=== PATIENT | female | born 1945 | race Caucasian/White ===

== ENCOUNTER → 2020-11-29 14:18 | Outpatient (BNVA) | payer MEDICARE, SELFPAY | PROVIDERS: Visit Provider Orthopaedic Surgery | DX: M76.62 Achilles tendinitis, left leg (principal) | CPT/HCPCS: 99202 ==

== ENCOUNTER 2021-01-26 10:49 | Outpatient (REF) | payer MEDICARE, SELFPAY ==
--- NOTE | ~2021-01-26 | MM_ITS ---
EXAMINATION: MM SCREENING DIGITAL BREAST TOMOSYNTHESIS, BILATERAL CLINICAL INFORMATION: Screening. Asymptomatic. The lifetime risk of breast cancer based on the Tyrer-Cuzick Model is 2%. COMPARISON: Mammography: 12/01/2019, 10/02/2018, 09/03/2017 TECHNIQUE: Digital breast tomosynthesis is performed in both the craniocaudal and mediolateral oblique views along with computer-aided detection (CAD). Synthesized 2D images are generated from the tomosynthesis. Additional right cleavage view is provided. FINDINGS: The breasts are almost entirely fatty (ACR BI-RADS breast composition Category a). There are no significant masses, abnormal calcifications, or other abnormalities. Background stromal markings are stable. The axilla and skin contours are unremarkable. MM/MM tomosynthesis screening BI IMPRESSION: No mammographic evidence of malignancy. ASSESSMENT: BI-RADS 1: Negative RECOMMENDATION: Routine annual mammography screening. This patient's information was entered into a reminder system with a target due date for their next mammogram.
== END 2021-01-26 10:50 | disposition home or self-care (01) ==
LOC: HO.MAMMO 10:49
PROVIDERS: PCP Nurse Practitioner Primary Care; Visit Provider Internal Medicine
DX: Z12.31 Encounter for screening mammogram for malignant neoplasm of breast (principal)
CPT/HCPCS: 77063; 77067

== ENCOUNTER → 2021-03-31 07:43 | Outpatient (REF) | payer MEDICARE, SELFPAY ==
--- NOTE | ~2021-03-31 | NM_ITS ---
Lexiscan Myocardial perfusion study Indication: Shortness of breath, assess for coronary disease and ischemia Technique: The patient was brought in for a Lexiscan perfusion study on 03/31/2021 and was injected 0.4 mg of Lexiscan intravenously. Within a minute of this injection 30 mCi of sestamibi was given intravenously. Images were obtained using the SPECT gamma camera interlaced with the gating device. Images were obtained in supine position. Resting perfusion study was performed on 04/03/2021. Patient was administered 30 mCi of sestamibi intravenously at rest. Images were then obtained in supine position. Total DLP 141mGy-cm. Images were processed with the software and compared side to side in short axis, horizontal long axis and vertical long axis views. Findings: Raw acquisition was reviewed. The stress perfusion study showed diminished tracer uptake in the inferior/inferolateral wall. However, with CT attenuation correction there seems to be good improvement and hence suggestive of diaphragmatic attenuation artifact. The gated study shows normal LV systolic function with calculated LVEF of 67%. LV cavity is normal in size. The gated study shows normal wall thickening and contraction of segments. Resting study shows no significant perfusion abnormality. Gating at rest reveals normal wall motion with ejection fraction at 66%. The findings are consistent with reversible inferior/inferolateral perfusion defect SPECT and V from diaphragmatic attenuation artifact. Less likely ischemia. NM/NM radha perf SPECT rest & str Impression: 1. Myocardial perfusion imaging study shows reversible perfusion defect in the inferior/inferolateral wall suspected to be from diaphragmatic attenuation artifact; doubt ischemia. 2. Gated LVEF is 67% during stress and 66% during rest. 3. Transient ischemic dilatation not present. EKG component of the test reported separately.
--- NOTE | 2021-03-31 07:48 | CA_ITS ---
Acquisition Time: 2021-03-31 07:58:13 Total Exercise Time: 00:02:00 Test Indications: Dyspnea Medications: Protocol: LEXISCAN Max HR: 123 BPM 86% of Pred: 143 BPM Max BP: 142/072 mmHG Max Work Load: 1.0 METS Pharmacological stress test with Lexiscan injection, with heart rate reaching 86% MPHR, while sittting and not moving, without anginal symptoms, with isolated PVC, with normotensive response to injection, with nondiagnostic EKG for ischemia. In recovery she reported lightheadedness and nausea that was treated with Aminophylline 75mg IVP with resolution of symptom. Nuclear images pending. Test reviewed with Dr Emery. Referred By: Carmita Dietz Overread By: HAMIDA ARCEO
== END ==
LOC: HO.CARD 07:43
PROVIDERS: Visit Provider Nurse Practitioner Primary Care
DX: R06.02 Shortness of breath (principal)
CPT/HCPCS: 78452; 93017; A9500; J0280; J2785

== ENCOUNTER → 2021-05-03 14:05 | Outpatient (BNVA) | payer MEDICARE, SELFPAY | PROVIDERS: PCP Nurse Practitioner Primary Care; Referring Provider Nurse Practitioner Primary Care; Visit Provider Internal Medicine | DX: R06.02 Shortness of breath (principal); I10 Essential (primary) hypertension; E78.5 Hyperlipidemia, unspecified; E11.8 Type 2 diabetes mellitus with unspecified complications; Z95.0 Presence of cardiac pacemaker | CPT/HCPCS: 93005; 99202 ==

== ENCOUNTER → 2021-06-21 10:19 | Outpatient (REF) | payer MEDICARE, SELFPAY ==
--- NOTE | 2021-06-21 10:23 | CA_ITS ---
Transthoracic Echocardiogram Patient (Last, First, Middle): Annetta Fishman Etta Gender: Female Date of : 1945 Age: 75 Procedure Date: 06/21/2021 Procedure Type: Transthoracic Echocardiogram Location: OP Height: 157.48 cm Weight: 95.71 kg BSA: 1.96 m2 Heart Rate: bpm BP: 125 / 70 mmHg Safety Compliance Specialist: JAMIN Javier MD: Otf Patel MD Mds Manager: Isidro Emery MD Symptoms: R06.02 - Shortness of breath Study Quality: Fair ECG Rhythm: Ventriculary paced rhythm Conclusions: - 1. Low normal LV systolic function with LVEF of 50-55% with grade 1 diastolic dysfunction 2. Normal cardiac valvular Doppler 3. Normal RV systolic pressure 4. No gross pericardial effusion Findings Left Ventricle Normal left ventricular cavity size. There is normal left ventricular wall thickness. The left ventricular systolic function is low normal. The visually estimated ejection fraction is between 50-55%. There is paradoxical septal motion consistent with a right ventricular pacemaker. Spectral Doppler is indicative of an impaired relaxation filling pattern. E/E prime ratio is <8, consistent with normal filling pressures. Evidence suggests grade I (mild) diastolic dysfunction. Right Ventricle Normal right ventricular cavity size and systolic function. There is a pacemaker wire seen in the right ventricle. Atria The left atrium is likely dilated. Interatrial shunt cannot be excluded. The right atrium was not well visualized. Aortic Valve The aortic valve structure and function is likely normal. There is no aortic valve stenosis. There is no aortic valve regurgitation. Mitral Valve There is mild anterior and posterior mitral leaflet thickening. There is trace mitral valve regurgitation. There is no mitral valve stenosis. Pulmonic Valve The pulmonic valve was not well visualized. Tricuspid Valve Likely normal tricuspid valve structure and function. There is mild tricuspid valve regurgitation. The right ventricular systolic pressure is normal. The right ventricular systolic pressure is 24 mmHg. Normal right atrial pressure. There is no evidence of pulmonary hypertension. Great Vessels All visible segments of the aorta are normal in size. The pulmonary artery was not well visualized. Venous The inferior vena cava is normal in size and collapses greater than 50% with inspiration. Pericardium/Pleural There is no evidence of pericardial effusion. Prior Study Comparison No prior study available for comparison. Measurements 2D Linear Measurements IVSd: 1.18 0.6-0.9/0.6-1.0 cm LVIDd: 5.12 3.9-5.3/4.2-5.9 cm LVIDd Index: 2.61 2.4-3.2/2.2-3.1 cm/m2 LVIDs: 3.54 2.0-3.6 cm LVPWd: 0.89 0.7-1.1 cm Ao Root: 2.80 2.1-3.5 cm LA Diam: 3.90 2.7-3.8/3.0-4.0 cm LAIDs Index: 1.99 1.5-2.3 cm/m2 LV Mass: 247.14 67-162/88-224 g LV Mass Index: 126.09 43-95/49-115 g/m2 LVOT Diam: 2.20 3.0+(-)1.3 cm 2D Systolic Function EF 4C: 51.70 >55% EF 2C: 53.90 >55% EF BiP: 51.00 >55% Mitral Valve MV Pk E: 0.38 MV PK A: 0.73 MV Decel Time: 221.00 E/A: 0.50 E'Lateral: 5.77 E'Medial: 4.24 E/E' Med: 8.90 E/E' Lat: 6.50 PHT: 65.00 MVA PHT: 3.38 Decel Polk: 1.70 Aortic Valve AoV Pk Heriberto: 1.31 AoV Mn Heriberto: 0.95 AoV VTI: 0.28 AoV Pk Grad: 7.00 Aov Mn Grad: 4.00 VEL Cont.VTI: 2.08 LVOT LVOT Pk Heriberto: 0.71 LVOT Mn Heriberto: 0.51 LVOT VTI: 0.15 LVOT Pk Grad: 2.00 LVOT Mn Grad: 1.00 LVOT Diam: 2.20 LVOT Area: 3.80 Diastolic Function MV Pk E: 0.38 MV Pk A: 0.73 E/A: 0.50 E'Medial: 4.24 E/E' Med: 8.90 E' Laterial: 5.77 E/E' Lat: 6.50 Right Ventricle TAPSE (mm): 21.00 TVS' Heriberto: 8.49 Tricuspid Valve TR Pk Heriberto: 2.29 TR Pk Grad: 21.00 RA Press: 3.00 RVSP: 24.00 Great Vessels Aorta Ao Root-2D: 2.80 2.0-3.7 cm Ao Asc: 3.30 2.1-3.4 cm Ao Arch: 3.20 Pulmonary Valve PV Pk Heriberto: 0.94 Peak PV Grad: 4.00 Updated in Other Vendor System with Status of Final Isidro Emery MD electronically signed on 06/21/2021 1:26:48 PM with status of Final
== END ==
LOC: HO.CARD 10:19
PROVIDERS: PCP Nurse Practitioner Primary Care; Visit Provider Internal Medicine
DX: R06.02 Shortness of breath (principal)
CPT/HCPCS: 93306

== ENCOUNTER → 2021-06-26 14:05 | Outpatient (BNVA) | payer MEDICARE, SELFPAY | PROVIDERS: PCP Nurse Practitioner Primary Care; Referring Provider Nurse Practitioner Primary Care; Visit Provider Internal Medicine | DX: Z45.018 Encounter for adjustment and management of other part of cardiac pacemaker (principal); E78.5 Hyperlipidemia, unspecified; E11.8 Type 2 diabetes mellitus with unspecified complications; I10 Essential (primary) hypertension; R06.02 Shortness of breath | CPT/HCPCS: 99212 ==

== ENCOUNTER → 2021-12-20 12:35 | Outpatient (BNVA) | payer MEDICARE, SELFPAY | PROVIDERS: PCP Nurse Practitioner Primary Care; Referring Provider Nurse Practitioner Primary Care; Visit Provider Internal Medicine | DX: R06.02 Shortness of breath (principal); I10 Essential (primary) hypertension; E11.8 Type 2 diabetes mellitus with unspecified complications; E78.5 Hyperlipidemia, unspecified; Z79.84 Long term (current) use of oral hypoglycemic drugs; Z79.899 Other long term (current) drug therapy; Z95.0 Presence of cardiac pacemaker | CPT/HCPCS: 99212 ==

== ENCOUNTER 2022-02-01 10:51 | Outpatient (REF) | payer MEDICARE, SELFPAY ==
--- NOTE | ~2022-02-01 | MM_ITS ---
EXAMINATION: MM SCREENING DIGITAL BREAST TOMOSYNTHESIS, BILATERAL CLINICAL INFORMATION: Screening. Asymptomatic. The lifetime risk of breast cancer based on the Tyrer-Cuzick Model is 2%. COMPARISON: Mammography: 01/26/2021, 12/01/2019, 10/02/2018 TECHNIQUE: Digital breast tomosynthesis is performed in both the craniocaudal and mediolateral oblique views along with computer-aided detection (CAD). Synthesized 2D images are generated from the tomosynthesis. FINDINGS: The breasts are almost entirely fatty (ACR BI-RADS breast composition Category a). Background stromal markings are similar to prior studies. No developing density or architectural abnormality. There are scattered bilateral benign round and coarse calcifications again seen. There are no significant masses, abnormal calcifications, or other abnormalities. The axilla and skin contours are unremarkable. MM/MM tomosynthesis screening BI IMPRESSION: No mammographic evidence of malignancy. ASSESSMENT: BI-RADS 1: Negative RECOMMENDATION: Routine annual mammography screening. This patient's information was entered into a reminder system with a target due date for their next mammogram.
== END 2022-02-01 10:52 | disposition home or self-care (01) ==
LOC: HO.MAMMO 10:51
PROVIDERS: PCP Nurse Practitioner Primary Care; Visit Provider Nurse Practitioner Primary Care
DX: Z12.31 Encounter for screening mammogram for malignant neoplasm of breast (principal)
CPT/HCPCS: 77063; 77067

== ENCOUNTER → 2022-06-25 12:52 | Outpatient (BNVA) | payer MEDICARE, SELFPAY | PROVIDERS: PCP Nurse Practitioner Primary Care; Referring Provider Nurse Practitioner Primary Care; Visit Provider Internal Medicine | DX: Z45.018 Encounter for adjustment and management of other part of cardiac pacemaker (principal); I10 Essential (primary) hypertension; R06.02 Shortness of breath; E78.5 Hyperlipidemia, unspecified; E11.8 Type 2 diabetes mellitus with unspecified complications | CPT/HCPCS: 93005; 93280; 99212 ==

== ENCOUNTER 2023-05-10 09:59 | Outpatient (REF) | payer MEDICARE, SELFPAY ==
--- NOTE | ~2023-05-10 | MM_ITS ---
EXAMINATION: BONE DENSITOMETRY CLINICAL INDICATION: Osteopenia. COMPARISON: Previous BD dated 10/02/2018 and baseline BD dated 08/15/2012. TECHNIQUE: Using a [employer] DXA System (software version: 13.1) manufactured by [employer], dual-energy x-ray absorptiometry was performed of the lumbar spine, left hip, and left forearm radius 33%. The images are of good technical quality. Summary results are attached. FINDINGS: LEFT FEMUR, NECK: Current: BMD 0.466 g/cm2, Z-score -2.6, T-score -4.1, osteoporosis. Prior: BMD 0.774 g/cm2. Baseline: BMD 0.789 g/cm2. LEFT FEMUR, TOTAL: Current: BMD 0.549 g/cm2, Z-score -2.3, T-score -3.6, osteoporosis, 35.3% decrease from previous, 35.9% decrease from baseline (<5% change is not significant). Prior: BMD 0.848 g/cm2. Baseline: BMD 0.857 g/cm2. AP SPINE L1-L4: Current: BMD 1.127 g/cm2, Z-score 0.4, T-score -0.4, normal, 2.3% decrease from previous, 0.4% decrease from baseline (<5% change is not significant). Prior: BMD 1.154 g/cm2. Baseline: BMD 1.131 g/cm2. LEFT FOREARM RADIUS 33%: BMD 0.929 g/cm2, Z-score 3.3, T-score 0.6, normal, 2.2% increase from previous, 2.5% increase from baseline (<5% change is not significant). Prior: BMD 0.909 g/cm2. Baseline: BMD 0.906 g/cm2. IDENTIFIED RISK FACTORS: Early menopause, height loss, bilateral oophorectomy, hyperparathyroid, hysterectomy, low calcium intake, renal, secondary osteoporosis. HISTORY OF FRACTURE: None listed. MEDICATIONS: Vitamin D. MM/XR DEXA appendicular skeleton IMPRESSION: 1. DIAGNOSIS: Osteoporosis based on the lowest T-score value of -4.1 in the femoral neck applying World Health Organization criteria. 2. 10-YEAR FRACTURE RISK PREDICTION, FRAX: According to the guidelines, FRAX calculation should only be performed on patients in the osteopenia bone density category. Therefore, FRAX was not performed on this patient. 3. Treatment Recommendations: NOF guidelines recommend consideration for treatment in postmenopausal women and men age 50 and older presenting with the following: -A hip or vertebral (clinical or morphometric) fracture. -T-score less than or equal to -2.5 at the femoral neck or spine after appropriate evaluation to exclude secondary causes. -Low bone mass at the hip or spine and a 10-year fracture probability by FRAX of greater than or equal to 3% for hip fracture or greater than or equal to 20% for major osteoporotic fracture based on the [place] adapted WHO algorithm. 4. Other Recommendations: All treatment decisions require clinical judgment and consideration of individual patient factors, including patient preferences, comorbidities, previous drug use, risk factors not captured in the FRAX model (e.g. frailty, falls, vitamin D deficiency, increased bone turnover, interval significant decline in bone density) and possible under or overestimation of fracture risk by FRAX. Additional medical evaluation for secondary cause of low bone mineral density may be appropriate. FUTURE SCAN RECOMMENDATION: People with diagnosed cases of osteoporosis or at high risk for fracture should have regular bone mineral density tests. For patients eligible for Medicare, routine testing is allowed once every 2 years. The testing frequency can be increased to one year for patients who have rapidly progressing disease, those who are receiving or discontinuing medical therapy to restore bone mass, or have additional risk factors.
--- NOTE | ~2023-05-10 | MM_ITS ---
EXAMINATION: MM SCREENING DIGITAL BREAST TOMOSYNTHESIS, BILATERAL CLINICAL INFORMATION: Screening. Asymptomatic. COMPARISON: Mammography: 02/01/2022, 01/26/2021, 12/01/2019, 10/02/2018 TECHNIQUE: Digital breast tomosynthesis is performed in both the craniocaudal and mediolateral oblique views along with computer-aided detection (CAD). Synthesized 2D images are generated from the tomosynthesis. FINDINGS: The breasts are almost entirely fatty (ACR BI-RADS breast composition Category a). There are scattered benign type calcifications and skin calcifications again noted without suspicious change. There are no suspicious masses, suspicious grouped calcifications, or areas of architectural distortion in either breast. The parenchymal pattern is stable from prior exams. MM/MM tomosynthesis screening BI IMPRESSION: No mammographic evidence of malignancy. ASSESSMENT: BI-RADS BI-RADS 2 - Benign Findings RECOMMENDATION: Routine annual mammography screening. 1 year F/U This examination should not preclude the clinical evaluation of a suspicious palpable abnormality. This patient's information was entered into a reminder system with a target due date for their next mammogram.
== END 2023-05-10 10:00 | disposition home or self-care (01) ==
LOC: HO.MAMMO 09:59
PROVIDERS: PCP Nurse Practitioner Primary Care; Visit Provider Nurse Practitioner Primary Care
DX: Z12.31 Encounter for screening mammogram for malignant neoplasm of breast (principal); Z13.820 Encounter for screening for osteoporosis; E21.3 Hyperparathyroidism, unspecified; M85.89 Other specified disorders of bone density and structure, multiple sites; Z78.0 Asymptomatic menopausal state; Z90.710 Acquired absence of both cervix and uterus; Z90.722 Acquired absence of ovaries, bilateral
CPT/HCPCS: 77063; 77067; 77081

== ENCOUNTER → 2023-05-10 10:30 | Outpatient (BNV) | payer MEDICARE, SELFPAY | PROVIDERS: PCP Nurse Practitioner Primary Care; Visit Provider Radiology Diagnostic Radiology | DX: Z12.31 Encounter for screening mammogram for malignant neoplasm of breast (principal) | CPT/HCPCS: 77063; 77067 ==

== ENCOUNTER 2023-06-24 11:52 | Outpatient (AMB) | payer MEDICARE, SELFPAY ==
[2023-06-24 12:36] VITALS: BP 140/86; PULSE 95; BMI 36.3
--- NOTE | 2023-06-24 12:36 | MHC.OFFVIS ---
Intake Vital Signs 06/24/23 12:36 Height 5 ft 2 in Weight 198 lb 6.656 oz BMI 36.3 BP 140/86 H Blood Pressure Location Lt brachial Position Sitting Pulse 95 Intake Visit Reasons: 1 YR FU W/ mEDTRONIC Intake Note: 1 year follow up w/ EKG Plane Captain Required: No Accompanied by: Spouse Allergies No Known Allergies Allergy (Verified 06/24/23 12:45) Medication List - Last Reconciled 06/24/23 by Otf Patel MD acetaminophen (Tylenol Extra Strength) 2 tabs in AM, 1 tab PM PO every 6 hours; amlodipine-benazepril 10-20 mg 1 cap PO DAILY aspirin (Adult Low Dose Aspirin) 81 mg PO DAILY cholecalciferol (vitamin D3) 25 mcg PO DAILY levothyroxine 75 mcg PO DAILY metformin 500 mg PO DAILY pantoprazole 40 mg PO DAILY spironolactone 12.5 mg PO DAILY HPI HPI Comments History of Present Illness Details Annetta [place] returns for follow-up. 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 She states that she underwent a pacemaker around 2401-1651. Subsequently, had a generator change around 2013. She has listed left bundle-branch block in her diagnosis. Per prior cardiology notes, she has sick sinus syndrome, but primarily AV julian block. Comorbidities include hypertension, dyslipidemia as well as type 2 diabetes. She does not have any known coronary disease or myocardial infarction or cardiomyopathy. Chronic shortness of breath is just about the same. More recently, she thinks she got flu although never formally diagnosed. After that, just feeling weak. Nonspecific symptoms but nothing clearly cardiac. [facility] Medical History (Updated 03/27/23 @ 13:51 by Arsen Villegas MD) AV block Type 2 diabetes mellitus with unspecified complications Pacemaker Hypercholesteremia GERD (gastroesophageal reflux disease) Hypothyroid Hypertension Surgical History H/O total knee replacement H/O: hysterectomy History of tonsillectomy Hx of cholecystectomy Family History Mother HTN (hypertension) Heart attack Father No problems noted. Maternal Grandmother Breast cancer Social History Alcohol intake: current Alcohol intake frequency: holidays/special occasions only Patient Tobacco Use Status: Never used Tobacco Review of Systems Const Denies weakness ENT Denies dizziness Card Denies chest pain, Denies chest pain with activity, Denies syncope, Denies rapid heart rate, Denies pedal edema, Denies edema, Denies leg edema, Denies lightheadedness, Denies palpitations and Denies orthopnea Resp Denies cough GI Denies hematochezia and Denies change in stool character Musc Denies abnormal gait, Denies muscle cramps, Denies muscle weakness, Denies numbness, Denies radiating pain into limb and Denies tingling Neuro Denies abnormal gait, Denies dizziness, Denies syncope, Denies numbness, Denies tingling and Denies weakness Endo Denies palpitations Physical Exam Vital Signs: Last Vital Signs Pulse 95 06/24/23 12:36 BP 140/86 H 06/24/23 12:36 BMI result Body Mass Index 36.3 Const General: comfortable and no acute distress Orientation/consciousness: patient oriented x3 HEENT Other: Unremarkable Head: Yes normal to inspection Neck Neck: Yes normal visual inspection Chest Chest palpation & inspection: normal inspection of the chest Resp Auscultation: clear to auscultation bilaterally Cardio Palpation: normal PMI Heart sounds: S1 normal heart sound present, S2 normal heart sound present, no gallops, no murmurs and no rubs GI Palpation (GI): Soft to palpation Back/Spine/Pelvis Other: unremarkable Skin General skin exam: no rashes or lesions noted Neuro General: patient oriented x3 Extrem General: Yes normal to inspection Psych Mental Status: mental status grossly normal Office Procedures Cardiac Device Check Cardiac Device Check Details: Pacemaker interrogated today. Dual-chamber device, programmed DDD mode. Battery status 5 months. Normal lead parameters. Total ventricular pacing 99.8%. Atrial pacing 7.1%. No significant arrhythmias. Overall, normal device function. 30471-[id number] Cardiac Device Check, pacemaker dual lead Procedure code (CPT) selection complete EKG Details: EKG with atrial sensed, ventricular paced rhythm at 96/Min; PVC. 26752-[id number], Complete Assessment & Plan Assessment & Plan (1) Pacemaker: Code(s): Z95.0 - Presence of cardiac pacemaker Plan: As the battery has only 5 months duration, we will bring her back in about 3 months for rechecking. Discussed. (2) SOB (shortness of breath): Code(s): R06.02 - Shortness of breath Plan: This has been a chronic issue. No new changes. Last echocardiogram with low-normal LVEF, 50-55% and mild diastolic dysfunction. Myocardial perfusion imaging with reversible perfusion defect in the inferior/inferolateral wall but thought to be from diaphragmatic attenuation artifact and preserved LVEF. No recent concerns. (3) Essential hypertension: Code(s): I10 - Essential (primary) hypertension Plan: On amlodipine/benazepril; spironolactone. She states that her creatinine has gone up and hence she is going to see Nephrology soon. Based on this, meds may have to be adjusted. From March, creatinine level 1.8. Potassium is 5. She states that spironolactone dose has been reduced. (4) Type 2 diabetes mellitus with unspecified complications: Code(s): E11.8 - Type 2 diabetes mellitus with unspecified complications Plan: On metformin. Per PCP note, hemoglobin A1c 6.1%. Seems well controlled. (5) Other and unspecified hyperlipidemia: Code(s): E78.5 - Hyperlipidemia, unspecified Plan: On statins. Last LDL 74 mg/dL. Plan To returns in 3 months for pacemaker check. Coding Level of Care Code Est Pt Level 4 (59017) Diagnoses Pacemaker Z95.0 SOB (shortness of breath) R06.02 Essential hypertension I10 Type 2 diabetes mellitus with unspecified complications E11.8 Other and unspecified hyperlipidemia E78.5 CPT Codes Cardiac Device Check - Cardiac Device 2: [id number] Cardiac Device Check, pacemaker dual lead ([id number]) EKG - CPT: 55293-[id number], Complete ([id number])
== END 2023-06-24 13:13 | disposition home or self-care (01) ==
PROVIDERS: PCP Nurse Practitioner Primary Care; Visit Provider Internal Medicine
DX: R06.02 Shortness of breath (principal); I10 Essential (primary) hypertension; E11.8 Type 2 diabetes mellitus with unspecified complications; I44.30 Unspecified atrioventricular block; Z95.0 Presence of cardiac pacemaker; E78.5 Hyperlipidemia, unspecified; I49.3 Ventricular premature depolarization
CPT/HCPCS: 93010; 93280; 99214

== ENCOUNTER → 2023-06-24 11:52 | Outpatient (BNVA) | payer MEDICARE, SELFPAY | PROVIDERS: PCP Nurse Practitioner Primary Care; Visit Provider Internal Medicine | DX: Z45.018 Encounter for adjustment and management of other part of cardiac pacemaker (principal); R06.02 Shortness of breath; I10 Essential (primary) hypertension; E11.8 Type 2 diabetes mellitus with unspecified complications; E78.5 Hyperlipidemia, unspecified | CPT/HCPCS: 93005; 93280; 99212 ==

== ENCOUNTER 2023-06-28 07:50 | Outpatient (REF) | payer MEDICARE, SELFPAY ==
[2023-06-28 08:23] LABS: Anion Gap 15 (12-20); Blood Urea Nitrogen 23 mg/dL (9-16); Carbon Dioxide 24 mmol/L (22-29); Chloride 106 mmol/L (96-108); Estimated Glomerular Filt Rate 38; Potassium 4.4 mmol/L (3.3-5.1); Sodium 141 mmol/L (135-145)
[2023-06-28 08:32] LABS: Parathyroid Hormone Intact 267.6 pg/mL (8.7-77.1)
== END 2023-06-28 07:51 | disposition home or self-care (01) ==
LOC: HO.LAB 07:50
PROVIDERS: PCP Nurse Practitioner Primary Care; Visit Provider Internal Medicine Hypertension Specialist
DX: I12.9 Hypertensive chronic kidney disease with stage 1 through stage 4 chronic kidney disease, or unspecified chronic kidney disease (principal); N18.9 Chronic kidney disease, unspecified
CPT/HCPCS: 36415; 80051; 82310; 82565; 83970; 84520

== ENCOUNTER 2023-07-16 10:33 | Outpatient (AMB) | payer MEDICARE, SELFPAY ==
[2023-07-16 10:36] VITALS: BP 122/70; PULSE 91; O2SAT 97; BMI 36.6
--- NOTE | 2023-07-16 10:36 | HO.NEPHOV_ITS ---
HPI HPI Comments History of Present Illness Details Elderly woman with a history of CKD in a setting of longstanding hypertension and diabetes mellitus. Recently she had an episode of gout. This was treated with prednisone. No uric acid levels are available. She has persistent hypercalcemia. [facility] Medical History (Updated 07/16/23 @ 10:54 by Arsen Villegas MD) AV block Type 2 diabetes mellitus with unspecified complications Pacemaker Hypercholesteremia GERD (gastroesophageal reflux disease) Hypothyroid Hypertension Surgical History History of tonsillectomy H/O total knee replacement H/O: hysterectomy Hx of cholecystectomy Family History Mother HTN (hypertension) Heart attack Father No problems noted. Maternal Grandmother Breast cancer Social History Alcohol intake: current Alcohol intake frequency: holidays/special occasions only Patient Tobacco Use Status: Never used Tobacco Vital Signs 07/16/23 10:36 Height 5 ft 2 in Weight 200 lb BMI 36.6 BP 122/70 Blood Pressure Location Lt brachial Position Sitting Pulse 91 Pulse Source Pulse Oximeter Pulse Oximetry (%) 97 Oxygen Delivery Method Room Air Physical Exam Vital Signs: Last Vital Signs Pulse 91 07/16/23 10:36 BP 122/70 07/16/23 10:36 Pulse Ox 97 07/16/23 10:36 Oxygen Delivery Method Room Air 07/16/23 10:36 BMI result Body Mass Index 36.6 Const General: comfortable; No acute distress Orientation/consciousness: patient oriented x3 Eyes General: appearance normal, both eyes and all related structures Visual Ordonez: normal visual ordonez by confrontation Neck Neck: Yes supple and Yes no JVD Resp Effort & Inspection: normal respiratory effort and respiratory effort not decreased Auscultation: rhonchi Cardio Palpation: no palpable S3 and no palpable S4 Heart sounds: no rubs GI Inspection: Yes normal to inspection Palpation (GI): Soft to palpation Percussion: Yes normal to percussion Auscultation: normal bowel sounds General: Yes no CVA tenderness Back/Spine/Pelvis Back: no CVA tenderness Skin General skin exam: no petechiae and no purpura Neuro General: patient oriented x3 and no focal motor deficits Extrem General: No clubbing and Yes edema Assessment & Plan Assessment & Plan (1) CKD (chronic kidney disease): Code(s): N18.9 - Chronic kidney disease, unspecified Plan: CKD in a setting of hypertension diabetes mellitus. She has stage IIIB CKD. Creatinine is improved from 1.8 down to 1.33 as of June 2023. Goal is to slow the portion disease. Maintain A1c less than 7% and blood pressure less than 130/80 Continue overt nephrotoxic agents. Continue the EMELIA inhibition. She will benefit from SGLT2 inhibitors. (2) Essential hypertension: Code(s): I10 - Essential (primary) hypertension Plan: Blood pressure is well controlled No changes were made to medications low-salt diet (3) Hypercalcemia: Code(s): E83.52 - Hypercalcemia Plan: Persistent hypercalcemia with elevated PTH suggestive of primary hyperparathyroidism. We will add cinacalcet 30 mg once a day and was calcium and PTH. Orders: Orders Vitamin D 25-OH (D2 and D3) 5 Months E83.52 - Hypercalcemia, N18.9 - Chronic kidney disease, unspecified Basic Metabolic Panel 5 Months E83.52 - Hypercalcemia, N18.9 - Chronic kidney disease, unspecified Phosphorus 5 Months E83.52 - Hypercalcemia, N18.9 - Chronic kidney disease, unspecified Parathyroid Hormone Intact 5 Months E83.52 - Hypercalcemia, N18.9 - Chronic kidney disease, unspecified Medications: New cinacalcet 30 mg PO DAILY 30 tabs 5RF Coding Level of Care Code Est Pt Level 4 (07022) Diagnoses CKD (chronic kidney disease) N18.9 Essential hypertension I10 Hypercalcemia E83. Results Reviewed Nephrology Results: Sodium 141 mmol/L (135-145) 06/28/23 Potassium 4.4 mmol/L (3.3-5.1) 06/28/23 Chloride 106 mmol/L (96-108) 06/28/23 Carbon Dioxide 24 mmol/L (22-29) 06/28/23 BUN 23 mg/dL (9-16) H 06/28/23 Creatinine 1.33 mg/dL (0.5-1.4) 06/28/23 Calcium 11.0 mg/dL (8.4-10.2) H 06/28/23 PTH Intact 267.6 pg/mL (8.7-77.1) H 06/28/23
== END 2023-07-16 11:02 | disposition home or self-care (01) ==
PROVIDERS: PCP Nurse Practitioner Primary Care; Visit Provider Internal Medicine Hypertension Specialist
DX: I12.9 Hypertensive chronic kidney disease with stage 1 through stage 4 chronic kidney disease, or unspecified chronic kidney disease (principal); E11.22 Type 2 diabetes mellitus with diabetic chronic kidney disease; N18.32 Chronic kidney disease, stage 3b; E83.52 Hypercalcemia
CPT/HCPCS: 99214

== ENCOUNTER → 2023-07-16 10:33 | Outpatient (BNVA) | payer MEDICARE, SELFPAY | PROVIDERS: PCP Nurse Practitioner Primary Care; Visit Provider Internal Medicine Hypertension Specialist | DX: I12.9 Hypertensive chronic kidney disease with stage 1 through stage 4 chronic kidney disease, or unspecified chronic kidney disease (principal); N18.9 Chronic kidney disease, unspecified; E83.52 Hypercalcemia | CPT/HCPCS: 99212 ==

== ENCOUNTER 2023-08-03 00:11 | Emergency (ER) | payer MEDICARE, SELFPAY ==
[2023-08-03] VITALS (7 sets, daily range): BP systolic 113–141; BP diastolic 56–88; PULSE 67–112; RESP 12–18; TEMP 36.7–37; O2SAT 95–98; BMI 38.0
--- NOTE | 2023-08-03 | ECG_ITS ---
Test Reason : dizziness Blood Pressure : / mmHG Vent. Rate : 111 BPM Atrial Rate : 111 BPM P-R Int : 194 ms QRS Dur : 132 ms QT Int : 342 ms P-R-T Axes : 025 -23 068 degrees QTc Int : 465 ms Atrial-sensed ventricular-paced rhythm Abnormal ECG When compared with ECG of 09-MAR-2011 13:16, Vent. rate has increased BY 19 BPM Referred By: Generic ED Physician Electronically Signed By:TAE RICKS
--- NOTE | ~2023-08-03 | XR_ITS ---
EXAMINATION: XR CHEST CLINICAL INFORMATION: Shortness of breath. Difficulty swallowing. COMPARISON: None available. TECHNIQUE: 2 views of the chest were obtained. FINDINGS: The cardiac mediastinal silhouette is within normal limits. Pacer leads are in place. There is no focal lung consolidation or pleural effusion. The bony structures and soft tissues are unremarkable XR/XR chest 2V IMPRESSION: No evidence for acute disease.
--- NOTE | ~2023-08-03 | XR_ITS ---
EXAMINATION: XR SOFT TISSUE NECK CLINICAL INDICATION: Pain with swallowing. COMPARISON: None available. TECHNIQUE: 2 views of the soft tissue neck were obtained. FINDINGS: The laryngeal soft tissues are prominent. The soft tissues are otherwise unremarkable. There is mild cervical disc degenerative change. The visualized upper lung rosenberg are unremarkable. XR/XR soft tissue neck IMPRESSION: Prominent laryngeal soft tissues of uncertain significance.
--- NOTE | ~2023-08-03 | CT_ITS ---
EXAMINATION: CT SOFT TISSUE NECK WITHOUT CONTRAST CLINICAL INFORMATION: Difficulty swallowing. COMPARISON: None available. TECHNIQUE: Helical imaging was performed in the axial plane with generation of coronal and sagittal reformatted images. This CT examination was performed using dose optimization techniques as appropriate, variously including the following: *Automated exposure control *Adjustment of mA and/or kV according to patient size (this includes techniques or standardized protocols for targeted exams where dose is matched to indication/reason for exam; i.e. extremities or head) *Use of iterative reconstruction technique DLP: 398 mGy-cm FINDINGS: There is significant soft tissue prominence in the involving the hypopharyngeal soft tissues projecting into the supraglottic region with mild associated laryngeal thickening. The nasopharynx and oropharynx are within normal limits. There is no fluid collection. There is no significant lymph node enlargement. The parotid glands, submandibular glands and thyroid glands are unremarkable. The sinuses are clear. Orbital structures are unremarkable. The visualized upper lung rosenberg are clear. CT/CT soft tissue neck wo IV con IMPRESSION: Significant soft tissue prominence involving the hypopharyngeal soft tissues projecting into the supraglottic region with mild associated laryngeal thickening. No fluid collection. Direct visualization is recommended.
--- NOTE | 2023-08-03 00:50 | MHC.EDTECH ---
PATIENT EKG TAKEN AND WAS READ BY PROVIDER ,BLOOD DRAWN,RSV/COVID SWAB COLLECTED AND STREP SWAB ALL SENT TO LAB .
[2023-08-03 00:57] LABS: Hematocrit 37.1 % (37.0-47.0); Hemoglobin 12.4 g/dl (12.0-16.0); Mean Corpuscular HGB Conc 33.4 g/dl (31.0-35.0); Mean Corpuscular Volume 89.6 fL (80.0-98.0); Mean Platelet Volume 10.2 fL (9.4-12.3); Platelet Count 213 X10*3/uL (160-400); Red Blood Count 4.14 X10*6/uL (4.20-5.50); White Blood Count 12.9 X10*3/uL (4.8-10.8)
[2023-08-03 01:05] LABS: IDNOW Serial# 08D9AD1C; Strep A Nucleic Acid Negative (Negative)
[2023-08-03 01:11] LABS: Alanine Aminotransferase 8 U/L (0-31); Albumin Level 4.4 g/dL (3.5-5.0); Alkaline Phosphatase 68 U/L (39-117); Anion Gap 17 (12-20); Aspartate Amino Transferase 15 U/L (5-31); Bilirubin Total 0.4 mg/dL (0.0-1.0); Blood Urea Nitrogen 24 mg/dL (9-16); Calcium 10.6 mg/dL (8.4-10.2); Carbon Dioxide 19 mmol/L (22-29); Chloride 107 mmol/L (96-108); Estimated Glomerular Filt Rate 27; Glucose Random 131 mg/dL (60-115); Potassium 4.8 mmol/L (3.3-5.1); Sodium 138 mmol/L (135-145); Total Protein 7.6 g/dL (6.5-8.0)
[2023-08-03 01:35] LABS: Influenza A PCR NEGATIVE (Negative); Influenza B PCR NEGATIVE (Negative); Resp Syncy Virus RNA Qual PCR NEGATIVE (Negative); SARS COV2 PCR INHOUSE NEGATIVE (Negative)
--- NOTE | 2023-08-03 01:48 | MHC.EDTECH ---
This tech took over care of patient at this time,patient changed into hospital attire,family at bedside and call pacheco in reach
--- NOTE | 2023-08-03 02:33 | ED.GENADULT ---
HPI - General Adult General Chief complaint: General Medical Stated complaint: Vomiting Time Seen by Provider: 08/03/23 02:33 History of Present Illness HPI narrative: The patient is a 77-year-old woman who lives at home with her . 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 At around 17:00 she sat down to rest for a while and put her head to her side. Not long after she became acutely dizzy. She says that the room was spinning severely. She then developed nausea and vomiting. She vomited several times. After about half an hour she also started to have some diarrhea. She says she often gets diarrhea however. Eventually the room spinning dizziness stopped and the nausea stopped and she slept for awhile. When she woke up she felt a sense of upper respiratory congestion as if she was needing to blow her nose a lot. She says this sense of congestion moved down to her throat and then she developed a sense of difficulty swallowing. Ultimately she called her doctor and was advised to come to the emergency room. Here in the emergency room her primary problem is that she is having difficulty swallowing. She feels swallowing is difficult and painful. She also feels that she is having trouble handling her secretions. She is sometimes spitting her secretions. She also feels that her voice is not her usual voice. She feels her voice is thicker than usual. She has not had a fever, sweats, or chills. Related Data Home Medications Medication Instructions Recorded Confirmed aspirin 81 mg tablet,delayed 81 mg PO DAILY 11/29/20 06/24/23 release (Adult Low Dose Aspirin) levothyroxine 75 mcg capsule 75 mcg PO DAILY 11/29/20 06/24/23 acetaminophen 500 mg tablet See Rx Instructions PO Q6H 05/03/21 06/24/23 (Tylenol Extra Strength) amlodipine 10 mg-benazepril 20 mg 1 cap PO DAILY 05/03/21 06/24/23 capsule metformin 500 mg tablet 500 mg PO DAILY 05/03/21 06/24/23 pantoprazole 40 mg tablet,delayed 40 mg PO DAILY 06/25/22 06/24/23 release spironolactone 25 mg tablet 12.5 mg PO DAILY 06/24/23 06/24/23 cholecalciferol (vitamin D3) 25 25 mcg PO DAILY PRN 07/16/23 mcg (1,000 unit) capsule rosuvastatin 5 mg tablet 5 mg PO DAILY 07/16/23 Previous Rx's Medication Instructions Recorded cinacalcet 30 mg tablet 30 mg PO DAILY #30 tabs 07/16/23 Allergies Allergy/AdvReac Type Severity Reaction Status Date / Time No Known Allergies Allergy Verified 08/03/23 00:17 Review of Systems Review of Systems: Yes all other systems are reviewed and are negative [facility] Past Medical History Medical History (Updated 08/03/23 @ 08:25 by New Dupont MD) 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 Maternal Grandmother Breast cancer Social History Social History Alcohol intake: current Alcohol intake frequency: holidays/special occasions only Patient Tobacco Use Status: Never used Tobacco Advance Directives: No Advance Directives Information Provided: Yes Physical Exam ED Vital Signs: Vital Signs - 24 hr 08/03/23 00:18 08/03/23 02:24 08/03/23 04:18 Temperature 98.1 F 98.1 F 98.3 F Pulse Rate 67 99 96 Respiratory Rate 18 18 18 Blood Pressure 141/88 H 113/56 L 126/56 L Pulse Oximetry 98 97 96 Oxygen Delivery Method Room Air Room Air Room Air 08/03/23 06:00 08/03/23 07:38 08/03/23 08:02 Temperature 98.4 F Pulse Rate 98 99 112 H Respiratory Rate 18 18 12 Blood Pressure 130/62 115/73 Pulse Oximetry 96 95 Oxygen Delivery Method Room Air Room Air BMI result Body Mass Index 38.0 Const Other: The patient is awake, alert, pleasant, cooperative. She is a mildly chronically ill appearing older woman. She has a mildly thickened voice. She was occasionally spitting into tissues. She was not showing any signs of increased work of breathing or other signs of respiratory distress however. HENMT Other: No trismus. The oropharynx shows moist mucous membranes and there is no visible soft tissue swelling on phasic pharyngeal exam. Eyes Other: Pupils are round equal, conjunctivae are clear, extraocular movements intact Neck Other: No visible or palpable soft tissue swelling of the neck. Resp Other: She has a mildly thickened, slightly hoarse voice. Effort & Inspection: normal respiratory effort Auscultation: clear to auscultation bilaterally Cardio Rate: regular rate Rhythm: regular rhythm Heart sounds: S1 normal heart sound present and S2 normal heart sound present GI Other: Abdomen is soft and nontender Skin Other: Skin is dry and unremarkable Neuro Other: The patient is awake and alert. Her voice is mildly hoarse but she has no dysarthria or aphasia. The face is symmetrical. Eye movements are normal. Visual rosenberg are intact. Strength is symmetrical in all 4 extremities. Finger-nose and heel-dietz are intact. She has a grossly normal neurological exam. Extrem Other: No lower leg asymmetry, no pitting edema Medications Administered Discontinued Medications Generic Name Dose Route Start Last Admin Trade Name Xiangq PRN Reason Stop Dose Admin Dexamethasone Sodium Phosphate 12 mg 08/03/23 06:47 08/03/23 07:43 Dexamethasone Sod Phosphate 10 Mg/Ml Vial IVPUSH 08/03/23 06:48 12 mg ONCE ONE Administration Epinephrine 0.5 ml 08/03/23 07:41 08/03/23 08:01 Racepinephrine Hcl 0.5 Ml Vial.Neb INHALE 08/03/23 07:42 0.5 ml ONCE ONE Administration Famotidine 20 mg 08/03/23 06:51 08/03/23 07:44 Famotidine/Pf 20 Mg/2 Ml Vial IVPUSH 08/03/23 06:52 20 mg ONCE ONE Administration Sodium Chloride 1,000 mls @ 999 mls/hr 08/03/23 03:45 08/03/23 06:20 Ns IV 08/03/23 04:45 Infused .Q1H1M JENIFFER Infusion Lidocaine HCl 10 ml 08/03/23 05:39 08/03/23 06:49 Lidocaine Hcl 2 % Urojet 10 Ml Jel.Pf.Jeyson TOPICAL 08/03/23 05:40 10 ml ONCE ONE Administration Oxymetazoline HCl 2 spray 08/03/23 05:39 08/03/23 06:49 Oxymetazoline Hcl 0.05 % Nasal 15 Ml [place] NOSTRIL-B 08/03/23 05:40 2 spray ONCE ONE Administration Medical Decision Making Medical Decision Making [facility] Narrative: The patient is a 77-year-old female who describes an unusual series of events. She describes 1st having an episode of room spinning dizziness suggestive of vertigo. This was associated with nausea and vomiting and also some loose stools. These symptoms subsided and she later had a hoarse voice and difficulty swallowing. The patient does not have any neurological findings to suggest that her initial vertigo was central. The primary issue at this point seems to be her abnormal voice and her sense of difficulty swallowing. She did not seem to be spitting very frequently so I had her try to drink a glass of water. She did this poorly. We did plain films of the soft tissue of the neck and chest x-ray. The neck x-ray suggested some mild soft tissue edema in the supraglottic region. Next a CT of the neck was done (without contrast because of the patient's renal insufficiency). This also suggested supraglottic edema. Ultimately I performed fiberoptic nasopharyngoscopy through the left nostril. The patient gave verbal consent for this procedure. I 1st prepped the nostrils bilaterally with Afrin. I then used a UroJet to lubricate and anesthetize the left nostril. I then introduced a fiberoptic nasopharyngoscope and was able to visualize the supraglottic region. This showed significant edema of the arytenoids. I felt the findings were suggestive of a supraglottitis syndrome. The patient tolerated the procedure well. The patient was given 12 mg of IV dexamethasone. Also 20 mg of IV famotidine. Although my clinical suspicion for an infectious etiology of this supraglottitis is very low the she was also given 3 g of Unasyn as well as a dose of racemic epinephrine. Since we do not have ENT that comes to this hospital I felt the patient would need to be transferred so that she could be observed at a hospital with the ENT. I contacted [facility] and they were close to transfer. I then contacted [facility] and the patient has been accepted. Since the patient has seen of ENT of [facility] I spoke with the provider on for that practice. Clinically the patient continues to have a hoarse voice and is occasionally spitting secretions but she has not showing any signs of increased work of breathing or other signs of respiratory distress. I suspect this is some kind of chemical irritation causing edema and my hope is that this will improve with steroids rather than require intubation. Lab Data 08/03/23 00:49 08/03/23 00:49 Labs: Lab Results 08/03/23 Range/Units 00:49 WBC 12.9 H (4.8-10.8) X10*3/uL RBC 4.14 L (4.20-5.50) X10*6/uL Hgb 12.4 (12.0-16.0) g/dl Hct 37.1 (37.0-47.0) % MCV 89.6 (80.0-98.0) fL MCH 30.0 (27.0-33.0) pg MCHC 33.4 (31.0-35.0) g/dl RDW 13.0 (11.0-16.0) % Plt Count 213 (160-400) X10*3/uL MPV 10.2 (9.4-12.3) fL Immature Gran % (Auto) 0.5 H (0.0-0.4) % Neut % (Auto) 71.6 (45-73) % Lymph % (Auto) 18.2 L (20-40) % [place] % (Auto) 7.5 (2-11) % Eos % (Auto) 1.7 (0-4) % Baso % (Auto) 0.5 (0-2) % Lymph # (Auto) 2.4 (1.2-4.9) X10*3/uL [place] # (Auto) 1.0 (0.1-1.2) X10*3/uL Eos # (Auto) 0.2 (0.0-0.4) X10*3/uL Baso # (Auto) 0.1 (0.0-0.2) X10*3/uL Abs Immat Gran (auto) 0.06 H (0.00-0.03) X10*3/uL Absolute Neuts (auto) 9.3 H (2.0-8.3) x10*3/uL Absolute Nucleated RBC 0.000 (0.0-0.012) X10*3/uL Nucleated RBC % (auto) 0.0 (0.0-0.2) /100WBC Sodium 138 (135-145) mmol/L Potassium 4.8 (3.3-5.1) mmol/L Chloride 107 (96-108) mmol/L Carbon Dioxide 19 L (22-29) mmol/L Anion Gap 17 (12-20) BUN 24 H (9-16) mg/dL Creatinine 1.80 H (0.5-1.4) mg/dL Estim Creat Clear Calc 26.0 Estimated GFR 27 Random Glucose 131 H (60-115) mg/dL Calcium 10.6 H (8.4-10.2) mg/dL Total Bilirubin 0.4 (0.0-1.0) mg/dL AST 15 (5-31) U/L ALT 8 (0-31) U/L Alkaline Phosphatase 68 (39-117) U/L C-Reactive Protein 0.27 (< or = 0.50) mg/dL Total Protein 7.6 (6.5-8.0) g/dL Albumin 4.4 (3.5-5.0) g/dL Influenza Type A (PCR) NEGATIVE (Negative) Influenza Type B (PCR) NEGATIVE (Negative) RSV RNA Qual (PCR) NEGATIVE (Negative) SARS-CoV-2 RNA (RT-PCR) NEGATIVE (Negative) S. pyogenes GrpA BHARATI Negative (Negative) Critical Care Time Critical Care Time Critical Care Time: Yes Total Critical Care Time: 45 Attestation: The patient was critically ill with a high probability of imminent or life-threatening deterioration. ?I spent greater than 30 minutes of discontinuous time evaluating the patient, delivering critical care at the bedside, discussing evaluating data with consultants. ?Critical care time does not include time spent performing separately billable procedures or teaching. ?Time spent performing critical care with 45 minutes. Discharge Plan Discharge Clinical Impression: Supraglottitis Patient Disposition: [facility] Transfer Details: [facility] Prescriptions: No Action levothyroxine 75 mcg capsule 75 mcg PO DAILY aspirin [Adult Low Dose Aspirin] 81 mg tablet,delayed release (DR/EC) 81 mg PO DAILY acetaminophen [Tylenol Extra Strength] 500 mg tablet See Rx Instructions PO Q6H Rx Instructions: 2 tabs in AM, 1 tab PM PO every 6 hours; metformin 500 mg tablet 500 mg PO DAILY pantoprazole 40 mg tablet,delayed release (DR/EC) 40 mg PO DAILY amlodipine-benazepril 10-20 mg capsule 1 cap PO DAILY spironolactone 25 mg tablet 12.5 mg PO DAILY cholecalciferol (vitamin D3) 25 mcg (1,000 unit) capsule 25 mcg PO DAILY PRN Rx Instructions: four times a week rosuvastatin 5 mg tablet 5 mg PO DAILY cinacalcet 30 mg tablet 30 mg PO DAILY Qty: 30 5RF
[2023-08-03 03:43] LABS: MANUAL DIFF FLAG NO
[2023-08-03 03:44] LABS: Basophils Absolute Auto 0.1 X10*3/uL (0.0-0.2); Basophils Percent Auto 0.5 % (0-2); Eosinophils Absolute Auto 0.2 X10*3/uL (0.0-0.4); Eosinophils Percent Auto 1.7 % (0-4); Imm Gran Abs Auto 0.06 X10*3/uL (0.00-0.03); Imm Gran Pct Auto 0.5 % (0.0-0.4); Lymphocytes Absolute Auto 2.4 X10*3/uL (1.2-4.9); Lymphocytes Percent Auto 18.2 % (20-40); Monocytes Percent Auto 7.5 % (2-11); Neutrophils Absolute Auto 9.3 x10*3/uL (2.0-8.3); Neutrophils Percent Auto 71.6 % (45-73)
[2023-08-03] MEDS: 0.9 % Sodium Chloride 1,000 ML 999 ML IV (03:55)
[2023-08-03 03:57] LABS: C Reactive Protein 0.27 mg/dL (< or = 0.50)
--- NOTE | 2023-08-03 04:19 | MHC.EDTECH ---
Hourly rounds and vitals completed,patient resting comfortably call pacheco in reach
--- NOTE | 2023-08-03 06:15 | MHC.EDTECH ---
Hourly rounds and vitals completed,patient is resting at this time,family at bedside call pacheco in reach.
--- NOTE | 2023-08-03 06:47 | MHC.EDTECH ---
Assisted with a fiberoptic nasopharyagoscopy,patient tolerated procedure well and is resting at this time.
[2023-08-03] MEDS: Lidocaine HCl 2 % Urojet 10 ML JEL.PF.APP TOPICAL (06:49)
[2023-08-03] MEDS: Oxymetazoline HCl 0.05 % Nasal 15 ML SPRAY 2 SPRAY NOSTRIL-B (06:49)
[2023-08-03] MEDS: dexAMETHasone sod phosphate 10 MG/ML VIAL 12 MG IVPUSH (07:43)
[2023-08-03] MEDS: Famotidine/PF 20 MG/2 ML VIAL IVPUSH (07:44)
[2023-08-03] MEDS: Racepinephrine HCL 0.5 ML VIAL.NEB INHALE (08:01)
[2023-08-03] MEDS: Ampicillin Sodium/Sulbactam Na 3 GM in 0.9 % Sodium Chloride 100 ML IV (08:11)
--- NOTE | 2023-08-03 09:26 | PC.NURSE ---
Report given to Lore RENDON RN
== END 2023-08-03 09:29 | disposition short-term general hospital (02) ==
PROVIDERS: Emergency Provider Emergency Medicine
DX: J04.30 Supraglottitis, unspecified, without obstruction (principal); R11.2 Nausea with vomiting, unspecified; R42 Dizziness and giddiness; R94.31 Abnormal electrocardiogram [ECG] [EKG]; M54.2 Cervicalgia; R13.10 Dysphagia, unspecified; Z11.52 Encounter for screening for COVID-19; Z79.899 Other long term (current) drug therapy; Z20.822 Contact with and (suspected) exposure to COVID-19
CPT/HCPCS: 0241U; 70360; 70490; 71046; 80053; 85025; 85027; 86140; 87651; 93005; 94640; 96361; 96365; 96375; 99285; J0295; J1100

== ENCOUNTER → 2023-08-03 00:37 | Outpatient (BNV) | payer MEDICARE, SELFPAY | PROVIDERS: Emergency Provider Emergency Medicine; Visit Provider Internal Medicine | DX: R94.31 Abnormal electrocardiogram [ECG] [EKG] (principal) | CPT/HCPCS: 93010 ==

== ENCOUNTER 2023-08-07 19:13 | Inpatient (IN) | payer MEDICARE, SELFPAY ==
--- NOTE | ~2023-08-07 | CT_ITS ---
EXAMINATION: CT CHEST WITHOUT CONTRAST CLINICAL INFORMATION: Lung mass COMPARISON: Same day CT abdomen and pelvis, 08/03/[address], chest radiographs, most recent 08/07/2023 TECHNIQUE: Multidetector volumetric CT imaging of the chest was done. Axial MIP volume rendering provided. Sagittal and coronal reformatted images were obtained. This CT examination was performed using dose optimization techniques as appropriate, variously including the following: *Automated exposure control *Adjustment of mA and/or kV according to patient size (this includes techniques or standardized protocols for targeted exams where dose is matched to indication/reason for exam; i.e. extremities or head) *Use of iterative reconstruction technique DLP: 329 mGy-cm FINDINGS: FIRST OFFICER AND FLIGHT INSTRUCTOR: Bipolar pacer. Cholecystectomy clips. LUNGS: Trachea and bronchi are patent. Mild bronchiectasis, especially in the left lower lobe. Bilateral lower lobe atelectasis. Suspicious 1.9 x 2.4 x 2.6 cm spiculated left lower lobe nodular opacity with extension into the pleural surface. MEDIASTINUM: Unremarkable thyroid. No pathologic lymphadenopathy. Borderline heart size. Bipolar pacer. No significant pericardial effusion. CORONARY ARTERY CALCIFICATION: Moderate PLEURA: There is no pleural effusion. No pleural mass or thickening. AXILLA: No lymphadenopathy. UPPER ABDOMEN: Status post cholecystectomy. Renal cysts. OSSEOUS STRUCTURES: Degenerative changes. No suspicious osseous lesions. CT/CT chest wo IV con IMPRESSION: Suspicious left lower lobe opacity/mass. PET/CT and/or tissue sampling recommended. One month follow-up LDCT may be recommended to address potentially infectious or inflammatory conditions. Fleischner guidelines were followed.
--- NOTE | ~2023-08-07 | XR_ITS ---
EXAMINATION: XR CHEST CLINICAL INFORMATION: Chest pain COMPARISON: None available. TECHNIQUE: 2 views of the chest were obtained. FINDINGS: The lungs are well-expanded and clear. Heart size and pulmonary vascularity is normal. There are pacer electrodes in right atrium and right ventricle. No gross bony abnormality seen. XR/XR chest 2V IMPRESSION: Unremarkable chest exam.
--- NOTE | ~2023-08-07 | CT_ITS ---
EXAMINATION: CT ABDOMEN AND PELVIS WITHOUT CONTRAST CLINICAL INFORMATION: 77-year-old female with epigastric pain COMPARISON: None available. TECHNIQUE: Multidetector volumetric imaging was performed from the superior aspect of the liver through the pubic symphysis. Sagittal and coronal reformatted images were obtained on the technologist's workstation. This CT examination was performed using dose optimization techniques as appropriate, variously including the following: *Automated exposure control *Adjustment of mA and/or kV according to patient size (this includes techniques or standardized protocols for targeted exams where dose is matched to indication/reason for exam; i.e. extremities or head) *Use of iterative reconstruction technique DLP: 870 mGy-cm FINDINGS: LUNG BASES: There is lobulated, irregularly-shaped mass in the left lower lobe, measured 2.1 x 1.8 cm. LIVER, GALLBLADDER, AND BILIARY TREE: The liver is normal in size, shape, and attenuation. No focal hepatic lesion or biliary ductal dilatation is present. Gallbladder is surgically absent. PANCREAS: Unremarkable. SPLEEN: Unremarkable. ADRENAL GLANDS: Unremarkable. KIDNEYS AND URETERS: There are multiple small cortical cysts seen bilaterally with the largest in the right kidney measured 2.6 cm with attenuation of -6 HU and the largest mildly complicated cyst in the left kidney measured 2.1 cm with attenuation of 14 HU most likely hemorrhagic cyst.. There are no obvious solid lesions or hydroureteronephrosis and no evidence of nephrolithiasis BLADDER: Unremarkable. GASTROINTESTINAL TRACT: The small and large bowel are unremarkable. The appendix is unremarkable. ABDOMINAL WALL: There is fat-containing small umbilical hernia. LYMPH NODES: Normal. VASCULAR: Unremarkable. PELVIC VISCERA: Uterus is surgically absent. OSSEOUS STRUCTURES: There are multilevel degenerative changes in lumbar spine without lytic or blastic lesions seen. CT/CT abdomen pelvis wo IV con IMPRESSION: 1. Suspicious mass in the left lower lobe. 2. Bilateral renal simple and complex cysts. 3. Status post cholecystectomy and hysterectomy. 4. Small fat-containing umbilical hernia. Fleischner guidelines were followed.
--- NOTE | 2023-08-07 19:20 | ECG_ITS ---
Test Reason : chest pressure Blood Pressure : / mmHG Vent. Rate : 067 BPM Atrial Rate : 067 BPM P-R Int : 198 ms QRS Dur : 136 ms QT Int : 440 ms P-R-T Axes : 000 -22 081 degrees QTc Int : 464 ms AV dual-paced rhythm alternating with sinus rhythm with V pacing Abnormal ECG When compared with ECG of 03-AUG-2023 00:37, Vent. rate has decreased BY 44 BPM Referred By: Sarah Carolina Electronically Signed By:Mauri Martinez
[2023-08-07 19:21] VITALS: BP 148/63; PULSE 68; RESP 16; TEMP 36.7; O2SAT 95; BMI 37.5
--- NOTE | 2023-08-07 19:21 | ED_ITS ---
HPI - General Adult General Chief complaint: General Medical Stated complaint: Chest pressure, bloated, shaky, nauseous Time Seen by Provider: 08/08/23 06:34 Source: patient, RN notes reviewed and old records reviewed Mode of arrival: ambulatory Limitations: no limitations History of Present Illness HPI narrative: 77-year-old female, with history of AV block, type 2 diabetes, CKD, pacemaker, HLD, GERD, hypothyroidism, HTN, s/p cholecystectomy and recently diagnosed supraglottitis (dx 08[facility]02 [facility] who presents back to the ER today for evaluation of epigastric abdominal pressure and discomfort that started about 6pm last night. She states the pain is located across her entire epigastric area and rated a 6/10. It is associated with nausea but she has not vomited. She also reports lightheadedness and shakiness with the pain. She had burning pain the area while in the waiting room. She also reports back pain. She denies upper chest pain, SOB, fever, chills or diarrhea. When she was transferred to [facility] for supraglottitis she was treated with steroids and famotidine. She was taken off of her ACEI. She was not on antibiotics. Her throat and swallowing are much better and back to baseline. MD complaint: epigastric abdominal pain/pressure Onset (ago): hour(s) Location: abdomen Radiation: back Severity: moderate Severity scale (1-10): 6 Quality: burning and aching Pain Consistency: constant Relieving factors: none Exacerbating factors: none Associated symptoms: nausea/vomiting and other (shakiness) Treatments prior to arrival: none Related Data Home Medications Medication Instructions Recorded Confirmed aspirin 81 mg tablet,delayed 81 mg PO DAILY 11/29/20 06/24/23 release (Adult Low Dose Aspirin) levothyroxine 75 mcg capsule 75 mcg PO DAILY 11/29/20 06/24/23 acetaminophen 500 mg tablet See Rx Instructions PO Q6H 05/03/21 06/24/23 (Tylenol Extra Strength) amlodipine 10 mg-benazepril 20 mg 1 cap PO DAILY 05/03/21 06/24/23 capsule metformin 500 mg tablet 500 mg PO DAILY 05/03/21 06/24/23 pantoprazole 40 mg tablet,delayed 40 mg PO DAILY 06/25/22 06/24/23 release spironolactone 25 mg tablet 12.5 mg PO DAILY 06/24/23 06/24/23 cholecalciferol (vitamin D3) 25 25 mcg PO DAILY PRN 07/16/23 mcg (1,000 unit) capsule rosuvastatin 5 mg tablet 5 mg PO DAILY 07/16/23 Previous Rx's Medication Instructions Recorded cinacalcet 30 mg tablet 30 mg PO DAILY #30 tabs 07/16/23 Allergies Allergy/AdvReac Type Severity Reaction Status Date / Time No Known Allergies Allergy Verified 08/03/23 00:17 Review of Systems 2 Review of Systems: Yes all other systems are reviewed and are negative [facility] Past Medical History Medical History (Updated 08/08/23 @ 11:38 by ROLANDO Thomas) 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 Maternal Grandmother Breast cancer Social History Social History Alcohol intake: current Alcohol intake frequency: holidays/special occasions only Patient Tobacco Use Status: Never used Tobacco Smoked in Last 30 Days: No Use of substances other than those prescribed or required for medical reasons: No Advance Directives: No Advance Directives Information Provided: No Physical Exam ED Vital Signs: Vital Signs - 24 hr 08/07/23 19:21 08/07/23 23:44 08/08/23 07:06 Temperature 98.0 F 97.9 F Pulse Rate 68 115 H 87 Respiratory Rate 16 18 18 Blood Pressure 148/63 H 157/80 H 143/64 H Pulse Oximetry 95 96 97 Oxygen Delivery Method Room Air Room Air Room Air 08/08/23 07:21 08/08/23 07:54 08/08/23 07:58 Temperature 97.9 F Pulse Rate 88 85 100 Respiratory Rate 17 Blood Pressure 117/60 99/63 Pulse Oximetry Oxygen Delivery Method 08/08/23 07:58 08/08/23 10:06 Temperature Pulse Rate 103 H 90 Respiratory Rate 18 Blood Pressure 113/65 134/66 Pulse Oximetry 98 Oxygen Delivery Method Room Air BMI result Body Mass Index 37.5 Appearance: Alert. Oriented X3. No acute distress. Head: normocephalic, atraumatic. Eyes: Pupils equal, round and reactive to light. ENT: Pharynx normal. No tonsillar swelling or exudate. Neck: Normal inspection. Neck supple. CVS: Tachycardic, Pulses normal. Respiratory: No respiratory distress. Breath sounds normal. Abdomen: Soft with moderate epigastric tenderness and guarding. No rebound, active +BS x4 Skin: Skin warm and dry. Normal skin color. Normal skin turgor. No rashes. Extremities: No lower extremity edema. No joint swelling. Neuro/psych: Oriented X 3. No motor deficit. No sensory deficit. CN II-XII intact. Normal speech and cognition. Course Course Course Narrative: This is an RME: Additional HPI, ROS, PE not included below will be deferred to primary provider. This is a 77-year-old female, with history of AV block, type 2 diabetes, pacemaker, hypercholesterolemia, hypothyroidism, and hypertension, who presents emergency department complaints of chest pressure and shakiness. Patient was seen here several days ago was diagnosed with supraglottis, and was transferred to [facility]. She was discharged on Saturday after being treated with doses of steroids. She has been off the steroids since Saturday. She states that she has developed chest pressure as well as shakiness as well as slight shortness of breath. Fevers or chills. Plan: Labs, chest x-ray, EKG COVID Medications Administered Discontinued Medications Generic Name Dose Route Start Last Admin Trade Name Freq PRN Reason Stop Dose Admin Magnesium Sulfate 2 gm in 50 mls @ 25 mls/hr 08/08/23 06:34 08/08/23 10:13 Magnesium Sulfate/H2o IV 08/08/23 08:33 Infused ONCE ONE Infusion Sodium Chloride 1,000 mls @ 999 mls/hr 08/08/23 07:15 08/08/23 10:12 Ns IV 08/08/23 08:15 Infused .Q1H1M JENIFFER Infusion Ondansetron HCl 4 mg 08/08/23 07:12 08/08/23 07:33 Ondansetron Hcl 4 Mg/2 Ml Vial IVPUSH 08/08/23 07:13 4 mg ONCE ONE Administration Medical Decision Making Medical Decision Making [facility] Narrative: 77-year-old female, with history of AV block, type 2 diabetes, CKD, pacemaker, HLD, GERD, hypothyroidism, HTN, s/p cholecystectomy and recently diagnosed supraglottitis (dx 08/02 and sent to [facility]/ [facility]) who presents back to the ER today for evaluation of epigastric abdominal pressure and discomfort that started about 6pm last night. Pain associated w/ shakiness, lightheadeness, nausea and back pain. BP and HR elevated on arrival, likely due to pain. She has abd tenderness in the epigastric area. Labs reviewed - lipase elevated 450. WBC 16.5. Normal LFTs. s/p cholectystecomy. No ETOH use. Concern for acute pancreatitis, unclear etiology. CT scan abd/pelvis ordered - patient requesting no CT dye due to her hx CKD, sports analyst told her no CT dye. SCR today 1.21. CT without acute abnormality of the pancreas, although limited without IV dye. meets criteria for dx with pain presenation and lipase elevation Given patient's symptoms will plan to admit for further management of acute pancreatitis. will repeat troponin and Mg s/p 2gm Differential Diagnosis Differential Diagnoses: The differential diagnosis associated with the presentation includes ACS, pancreatitis, GERD, gastritis, PUD, AAA, retained stone Admission/Observation Consideration of admission/observation: Escalation of care including admission/observation considered Consult Healthcare Provider Management of the patient was discussed with: Hospitalist Lab Data [facility] Lab Attestation statement: I reviewed the patient's lab results. leukocytosis, elevated lipase 08/07/23 19:35 08/07/23 19:35 Labs: Lab Results 08/07/23 08/08/23 Range/Units 19:35 10:24 WBC 16.5 H (4.8-10.8) X10*3/uL RBC 4.18 L (4.20-5.50) X10*6/uL Hgb 12.4 (12.0-16.0) g/dl Hct 36.9 L (37.0-47.0) % MCV 88.3 (80.0-98.0) fL MCH 29.7 (27.0-33.0) pg MCHC 33.6 (31.0-35.0) g/dl RDW 12.8 (11.0-16.0) % Plt Count 211 (160-400) X10*3/uL MPV 10.5 (9.4-12.3) fL Immature Gran % (Auto) 1.3 H (0.0-0.4) % Neut % (Auto) 62.4 (45-73) % Lymph % (Auto) 24.2 (20-40) % [place] % (Auto) 8.3 (2-11) % Eos % (Auto) 3.6 (0-4) % Baso % (Auto) 0.2 (0-2) % Lymph # (Auto) 4.0 (1.2-4.9) X10*3/uL [place] # (Auto) 1.4 H (0.1-1.2) X10*3/uL Eos # (Auto) 0.6 H (0.0-0.4) X10*3/uL Baso # (Auto) 0.0 (0.0-0.2) X10*3/uL Abs Immat Gran (auto) 0.21 H (0.00-0.03) X10*3/uL Absolute Neuts (auto) 10.3 H (2.0-8.3) x10*3/uL Absolute Nucleated RBC 0.000 (0.0-0.012) X10*3/uL Nucleated RBC % (auto) 0.0 (0.0-0.2) /100WBC Sodium 138 (135-145) mmol/L Potassium 3.9 (3.3-5.1) mmol/L Chloride 106 (96-108) mmol/L Carbon Dioxide 23 (22-29) mmol/L Anion Gap 13 (12-20) BUN 25 H (9-16) mg/dL Creatinine 1.21 (0.5-1.4) mg/dL Estim Creat Clear Calc 38.5 Estimated GFR 43 Random Glucose 114 (60-115) mg/dL Calcium 10.1 (8.4-10.2) mg/dL Magnesium 1.0 L* 2.1 (1.6-2.6) mg/dL Total Bilirubin 0.4 (0.0-1.0) mg/dL Direct Bilirubin 0.2 (0.0-0.5) mg/dL AST 25 (5-31) U/L ALT 14 (0-31) U/L Alkaline Phosphatase 61 (39-117) U/L Troponin I High Sens 8.4 13.0 D (<3.5-17.0) ng/L Total Protein 7.2 (6.5-8.0) g/dL Albumin 4.1 (3.5-5.0) g/dL Lipase 450 H (8-78) U/L TSH 1.70 (0.32-4.0) uIU/mL Influenza Type A (PCR) NEGATIVE (Negative) Influenza Type B (PCR) NEGATIVE (Negative) RSV RNA Qual (PCR) NEGATIVE (Negative) SARS-CoV-2 RNA (RT-PCR) NEGATIVE (Negative) Independent Interpretation I performed an independent interpretation of an: EKG, Plain X-Ray and CT Scan Interpretation: EKG w/ paced rhythm, HR 67 bpm, no ST segment elevations or depressions. no significant change from last week cxr w/ PPM in place. no focal infiltrate or PNA appreciated CT without large pancreatic pseudocyst, no air fluid levels, free air. agree w/ radiology read Radiology Impression Discussion of test interpretation with radiology: I have reviewed the radiologist's reading. Radiologist Impression: EXAMINATION: XR CHEST CLINICAL INFORMATION: Chest pain COMPARISON: None available. TECHNIQUE: 2 views of the chest were obtained. FINDINGS: The lungs are well-expanded and clear. Heart size and pulmonary vascularity is normal. There are pacer electrodes in right atrium and right ventricle. No gross bony abnormality seen. XR/XR chest 2V IMPRESSION: Unremarkable chest exam. EXAMINATION: CT ABDOMEN AND PELVIS WITHOUT CONTRAST CLINICAL INFORMATION: 77-year-old female with epigastric pain COMPARISON: None available. TECHNIQUE: Multidetector volumetric imaging was performed from the superior aspect of the liver through the pubic symphysis. Sagittal and coronal reformatted images were obtained on the technologist's workstation. This CT examination was performed using dose optimization techniques as appropriate, variously including the following: *Automated exposure control *Adjustment of mA and/or kV according to patient size (this includes techniques or standardized protocols for targeted exams where dose is matched to indication/reason for exam; i.e. extremities or head) *Use of iterative reconstruction technique DLP: 870 mGy-cm FINDINGS: LUNG BASES: There is lobulated, irregularly-shaped mass in the left lower lobe, measured 2.1 x 1.8 cm. LIVER, GALLBLADDER, AND BILIARY TREE: The liver is normal in size, shape, and attenuation. No focal hepatic lesion or biliary ductal dilatation is present. Gallbladder is surgically absent. PANCREAS: Unremarkable. SPLEEN: Unremarkable. ADRENAL GLANDS: Unremarkable. KIDNEYS AND URETERS: There are multiple small cortical cysts seen bilaterally with the largest in the right kidney measured 2.6 cm with attenuation of -6 HU and the largest mildly complicated cyst in the left kidney measured 2.1 cm with attenuation of 14 HU most likely hemorrhagic cyst.. There are no obvious solid lesions or hydroureteronephrosis and no evidence of nephrolithiasis BLADDER: Unremarkable. GASTROINTESTINAL TRACT: The small and large bowel are unremarkable. The appendix is unremarkable. ABDOMINAL WALL: There is fat-containing small umbilical hernia. LYMPH NODES: Normal. VASCULAR: Unremarkable. PELVIC VISCERA: Uterus is surgically absent. OSSEOUS STRUCTURES: There are multilevel degenerative changes in lumbar spine without lytic or blastic lesions seen. CT/CT abdomen pelvis wo IV con IMPRESSION: 1. Suspicious mass in the left lower lobe. 2. Bilateral renal simple and complex cysts. 3. Status post cholecystectomy and hysterectomy. 4. Small fat-containing umbilical hernia. Independent Historian Clinical information obtained from an independent historian. History obtained from or confirmed by: Spouse External Record Review External record reviewed: Outpatient record, Prior outpatient labs and Prior outpatient radiology Prescription Management I considered prescription management with: Pain Medication and Antibiotic Chronic Conditions Patient?s care impacted by: Hypertension Critical Care Time Critical Care Time Critical Care Time: Yes Total Critical Care Time: 39 Attestation: I have personally provided critical care time exclusive of time spent on separately billable procedures. Time includes review of lab data, radiology results, discussion with consultants, and monitoring for potential decompensation. Intervention performed as documented. Discharge Plan Discharge Clinical Impression: Hypomagnesemia, Mass of left lung Acute pancreatitis Qualifiers: Pancreatitis type: idiopathic Acute pancreatitis complication: unspecified Q ualified Code(s): K85.00 - Idiopathic acute pancreatitis without necrosis or infection Patient Disposition: Admitted As Inpatient
[2023-08-07 19:42] LABS: MANUAL DIFF FLAG NO
--- NOTE | 2023-08-07 19:42 | MHC.EDTECH ---
EKG taken and signed by provider,labs,and a sars/flu/rsv obtained and sent to lab.
[2023-08-07 19:45] LABS: Basophils Percent Auto 0.2 % (0-2); Eosinophils Absolute Auto 0.6 X10*3/uL (0.0-0.4); Eosinophils Percent Auto 3.6 % (0-4); Hematocrit 36.9 % (37.0-47.0); Hemoglobin 12.4 g/dl (12.0-16.0); Imm Gran Abs Auto 0.21 X10*3/uL (0.00-0.03); Imm Gran Pct Auto 1.3 % (0.0-0.4); Lymphocytes Percent Auto 24.2 % (20-40); Mean Corpuscular HGB Conc 33.6 g/dl (31.0-35.0); Mean Corpuscular Hemoglobin 29.7 pg (27.0-33.0); Mean Corpuscular Volume 88.3 fL (80.0-98.0); Mean Platelet Volume 10.5 fL (9.4-12.3); Monocytes Absolute Auto 1.4 X10*3/uL (0.1-1.2); Monocytes Percent Auto 8.3 % (2-11); Neutrophils Absolute Auto 10.3 x10*3/uL (2.0-8.3); Neutrophils Percent Auto 62.4 % (45-73); Platelet Count 211 X10*3/uL (160-400); Red Blood Count 4.18 X10*6/uL (4.20-5.50); Red Cell Distribution Width 12.8 % (11.0-16.0); White Blood Count 16.5 X10*3/uL (4.8-10.8)
[2023-08-07 20:06] LABS: Alanine Aminotransferase 14 U/L (0-31); Albumin Level 4.1 g/dL (3.5-5.0); Bilirubin Direct 0.2 mg/dL (0.0-0.5); Bilirubin Total 0.4 mg/dL (0.0-1.0); Blood Urea Nitrogen 25 mg/dL (9-16); Creatinine Clr Calc Pharmacy 38.5; Estimated Glomerular Filt Rate 43
[2023-08-07 20:07] LABS: Alkaline Phosphatase 61 U/L (39-117); Anion Gap 13 (12-20); Aspartate Amino Transferase 25 U/L (5-31); Calcium 10.1 mg/dL (8.4-10.2); Carbon Dioxide 23 mmol/L (22-29); Chloride 106 mmol/L (96-108); Glucose Random 114 mg/dL (60-115); Potassium 3.9 mmol/L (3.3-5.1); Sodium 138 mmol/L (135-145); Total Protein 7.2 g/dL (6.5-8.0)
[2023-08-07 20:11] LABS: Troponin-I High Sensitivity 8.4 ng/L (<3.5-17.0)
[2023-08-07 20:24] LABS: Influenza A PCR NEGATIVE (Negative); Influenza B PCR NEGATIVE (Negative); Resp Syncy Virus RNA Qual PCR NEGATIVE (Negative); SARS COV2 PCR INHOUSE NEGATIVE (Negative)
[2023-08-07 20:38] LABS: Lipase 450 U/L (8-78)
[2023-08-07 23:44] VITALS: BP 157/80; PULSE 115; RESP 18; TEMP 36.6; O2SAT 96
[2023-08-08] VITALS (7 sets, daily range): BP systolic 99–143; BP diastolic 60–66; PULSE 72–103; RESP 11–18; TEMP 36.6–36.7; O2SAT 95–98
--- NOTE | 2023-08-08 07:21 | PC.NURSE ---
Pt presents to ED from home, reports she was here on Saturday last week for a supraglottis inflammation issue. Today she presents with feelings of jittery and epigastric pain, 6/10, tender and radiating to her back. Pt also reports nausea. Pt reports she does not feel right. Denies any CP, SOB, vomiting or diarrhea, fevers and cough. Pt is alert and oriented, breathing even and unlabored, skin WNL. Pt resting in bed at this time, reports the pain is manageable.
[2023-08-08] MEDS: ondansetron HCL 4 MG/2 ML VIAL IVPUSH (07:33)
[2023-08-08] MEDS: Magnesium Sulfate/H2O 2 GM/50 ML PIGGYBACK IV (07:35)
[2023-08-08] MEDS: 0.9 % Sodium Chloride 1,000 ML 999 ML IV (07:37)
--- NOTE | 2023-08-08 08:06 | PC.NURSE ---
Pt taken to CT scan.
[2023-08-08 11:07] LABS: Magnesium 2.1 mg/dL (1.6-2.6)
--- NOTE | 2023-08-08 11:18 | P.HPHOSP_ITS ---
History of Present Illness Date of Service: 08/08/23 Attending physician on admission: Marvin Patiño Chief Complaint: Abdominal pain Pt is a 77-year-old female with a PMH significant for?HTN, HLD, AV block, pacemaker, [id number] diabetes type 2, GERD, hiatal hernia, and hypothyroidism who presents to the ED for evaluation of nausea and chest pain/pressure. Patient recently presented to the ED 5 days prior on 08/02 for evaluation of difficulty swallowing and found to have supraglottitis. Was transferred to [facility] where she was treated with IV steroids and Benadryl; supraglottitis was thought to be secondary to benazepril which was stopped. Patient reports she initially felt well upon discharge on Thursday 08/03. On Saturday felt tired, and Saturday developed dizziness and nausea with no vomiting, last night nausea increased and patient felt ?jittery?. Also experienced substernal pain/pressure that felt like a band wrapping around her entire torso and radiated up sternum. Reports last night area was tender to the touch. Denies fever, chills, diarrhea. No vomiting. Denies shortness of breath. Of note, patient does report possible evidence of FAINA during last admission to [facility]. In the ED pt was afebrile but tachycardic up to 115 and slightly hypertensive up to 157/80. Labs were significant for leukocytosis 16.5, magnesium 1.0, and lipase 450. stable H&H. Initial troponin 8.4 with repeat 13.0. Tested negative for COVID, RSV, flu. CXR was unremarkable. CT?of abd/pelvis showed suspicious mass in the left lower lobe and bilateral renal simple and complex cysts. No evidence of biliary ductal dilation and unremarkable pancreas. Pt was treated with ondansetron, Mag sulfate, and IVF. Pt will be admitted to the hospital for treatment and further evaluation of elevated lipase likely in the setting gastritis. Review of Systems 2 Review of Systems: Epigastric discomfort/pressure Nausea, no vomiting Dizziness Denies fever, chills No shortness a breath [facility] Medical History (Updated 08/08/23 @ 14:30 by ROLANDO Field) AV block Type 2 diabetes mellitus with unspecified complications Pacemaker Hypercholesteremia GERD (gastroesophageal reflux disease) Hypothyroid Hypertension Family History Mother HTN (hypertension) Heart attack Father No problems noted. Maternal Grandmother Breast cancer Surgical History History of tonsillectomy H/O total knee replacement H/O: hysterectomy Hx of cholecystectomy Social History Alcohol intake: current Alcohol intake frequency: holidays/special occasions only Patient Tobacco Use Status: Never used Tobacco Smoked in Last 30 Days: No Use of substances other than those prescribed or required for medical reasons: No Advance Directives: No Advance Directives Information Provided: No Meds Allergies Allergy/AdvReac Type Severity Reaction Status Date / Time No Known Allergies Allergy Verified 08/03/23 00:17 Home Medications Medication Instructions Recorded Confirmed Last Taken Type aspirin 81 mg tablet,delayed 81 mg PO DAILY 11/29/20 08/08/23 Unknown History release (Adult Low Dose Aspirin) acetaminophen 500 mg tablet 500 mg PO Q6H PRN Pain 05/03/21 08/08/23 Unknown History (Tylenol Extra Strength) metformin 500 mg tablet 500 mg PO DAILY@1700 05/03/21 08/08/23 Unknown History pantoprazole 40 mg tablet,delayed 40 mg PO DAILY@1700 06/25/22 08/08/23 Unknown History release cholecalciferol (vitamin D3) 25 25 mcg PO DAILY 07/16/23 08/08/23 Unknown History mcg (1,000 unit) capsule rosuvastatin 5 mg tablet 5 mg PO DAILY 07/16/23 08/08/23 Unknown History amlodipine 10 mg tablet 10 mg PO DAILY 08/08/23 08/08/23 Unknown History biotin 5 mg tablet 5 mg PO DAILY 08/08/23 08/08/23 Unknown History cyanocobalamin (vitamin B-12) 1,000 mcg PO DAILY 08/08/23 08/08/23 Unknown History 1,000 mcg tablet (Vitamin B-12) famotidine 20 mg tablet 20 mg PO DAILY 08/08/23 08/08/23 Unknown History levothyroxine 75 mcg tablet 75 mcg PO DAILY@0600 08/08/23 08/08/23 Unknown History nystatin 100,000 unit/gram topical 1 appl topical BID PRN Rash 08/08/23 08/08/23 Unknown History powder (Nystop) spironolactone 25 mg tablet 25 mg PO DAILY 08/08/23 08/08/23 Unknown History Physical Exam 2 Vital Signs and Narrative: Vital Signs: Last Vital Signs Temp 97.9 F 08/08/23 07:21 Pulse 90 08/08/23 10:06 Resp 18 08/08/23 10:06 BP 134/66 08/08/23 10:06 Pulse Ox 98 08/08/23 10:06 O2 Del Method Room Air 08/08/23 10:06 BMI result Body Mass Index 37.5 Constitutional: Alert, in no acute distress. Mental Status: Oriented to person, place and time. Eyes: Pupils are equal, round, and reactive to light. Ear, Nose, and Throat: Oropharynx clear, mucous membranes moist. Ears and nose without deformities. Trachea midline. Respiratory: Clear to auscultation bilaterally. No wheezing, rales, or rhonchi. Cardiovascular: S1, S2 regular. No murmurs, rubs, or gallops. Gastrointestinal: Abdomen soft, non-tender, non-distended. Normal bowel sounds. Neurologic: Cranial nerves II-XII are grossly intact bilaterally. No focal neurological deficits. Moves all extremities spontaneously. Skin: Warm, dry. Musculoskeletal: No cyanosis or clubbing. Extremities: No edema. Psychiatric: Normal mood and affect. Results Labs 08/07/23 19:35 08/07/23 19:35 Labs: Laboratory Results - last 24 hr 08/07/23 08/08/23 19:35 10:24 MCV 88.3 MCH 29.7 MCHC 33.6 RDW 12.8 Plt Count 211 MPV 10.5 Immature Gran % (Auto) 1.3 H Neut % (Auto) 62.4 Lymph % (Auto) 24.2 [place] % (Auto) 8.3 Eos % (Auto) 3.6 Baso % (Auto) 0.2 Lymph # (Auto) 4.0 [place] # (Auto) 1.4 H Eos # (Auto) 0.6 H Baso # (Auto) 0.0 Abs Immat Gran (auto) 0.21 H Absolute Neuts (auto) 10.3 H Absolute Nucleated RBC 0.000 Nucleated RBC % (auto) 0.0 Anion Gap 13 Estim Creat Clear Calc 38.5 Estimated GFR 43 Random Glucose 114 Calcium 10.1 Magnesium 1.0 L* 2.1 Total Bilirubin 0.4 Direct Bilirubin 0.2 AST 25 ALT 14 Alkaline Phosphatase 61 Troponin I High Sens 8.4 13.0 D Total Protein 7.2 Albumin 4.1 Lipase 450 H TSH 1.70 Influenza Type A (PCR) NEGATIVE Influenza Type B (PCR) NEGATIVE RSV RNA Qual (PCR) NEGATIVE SARS-CoV-2 RNA (RT-PCR) NEGATIVE Imaging Radiologist's Impressions: Impressions Chest X-Ray 08/07/23 19:44 IMPRESSION: Unremarkable chest exam. Abdomen/Pelvis CT 08/08/23 08:22 IMPRESSION: 1. Suspicious mass in the left lower lobe. 2. Bilateral renal simple and complex cysts. 3. Status post cholecystectomy and hysterectomy. 4. Small fat-containing umbilical hernia. Fleischner guidelines were followed. Assessment and Plan (1) Hypomagnesemia: Status: Acute (2) Elevated lipase: Status: Acute Plan Pt is a 77-year-old female with a PMH significant for?HTN, HLD, AV block, pacemaker, [id number] diabetes type 2, GERD, hiatal hernia, and hypothyroidism who presents to the ED for evaluation of nausea and chest pain/pressure. Pt will be admitted to the hospital for treatment and further evaluation of elevated lipase likely in the setting gastritis. Epigastric discomfort/pressure Likely secondary to gastritis or PUD Will treat with IV Protonix, Will check stool guaiac Hold aspirin Elevated lipase Lipase elevated at 450 at time of presentation Acute pancreatitis unlikely: pt complaining of epigastric discomfort, CT with no CBD dilation and normal pancreas, abd exam benign Likely secondary to gastritis/PUD Treat as above Follow lipase Elevated troponin Initial troponin 8.4 with repeat 3.0 EKG without ischemic changes Most likely secondary to increased demand Will repeat troponin Hypomagnesemia, repleated Magnesium 1.0 at time of presentation with repeat 2.1 Given Mag 2g IV in ED Follow magnesium Leukocytosis Likely secondary to recent steroid use No indication for bacterial infection No indication for antibiotics at this time Suspicious left lower lobe lung mass Incidental finding on CT Pulmonology consult for possible outpatient biopsy Possible FAINA Pt apparently noted during hospitalization last week to be desatting into 80s while sleeping Supplemental O2 at night Follow up outpatient with PCP for sleep study HTN Continue amlodipine, spironolactone [id number] type 2 diabetes Hold metformin SSI, diabetic diet Hypothyroidism Continue levothyroxine GERD Hold home meds Treat as above Full Code Attending:?Dr. Patiño DVT Prophylaxis: Lovenox Pt will require a hospitalization of at least two nights for treatment of?and further evaluation of elevated lipase and epigastric discomfort in the setting of likely gastritis with new CT findings of suspicious left lower lobe mass. Given patient's recent hospitalization and significant comorbidities, patient will require hospitalization for close monitoring of labs and specialist consultation with pulmonology. Quality Stroke Does the patient have a stroke diagnosis?: No VTE Prior VTE?: No VTE Risk Level:: Medical - moderate - high VTE Device Contraindication: N/A - Device Ordered VTE Drug Contraindication: Treatment Not Indicated
--- NOTE | 2023-08-08 11:29 | PC.NURSE ---
Family member alerted RN that pts SPO2 drops to below 90% while she is sleeping, family members reports PCP is questioning possible sleep apnea but no formal diagnosis. RN noted SPO2 94-96% while awake and talking. Provider alerted and orders to placed pt on 2L O2 via NC while pt is sleeping. Pt denies any SOB or CP, reports at home she has trouble sleeping and wakes up abruptly through the night.
--- NOTE | 2023-08-08 13:31 | PHA.MEDREC ---
Pharmacy Consult ? Medication Reconciliation Pharmacy has completed the medication reconciliation. Pt had list, read back all medications, mentioned she has not figured out a way to take sucralfate (since she can't take it with levothyroxine or protonix) so she has not started taking that yet. Also stated that she was switched from amlodipine/benazepril to just amlodipine 10mg.
[2023-08-08] MEDS: PHENobarb/Hyoscy/Atropine/Scop 10 ML ELIXIR 5 ML PO (14:40)
[2023-08-08] MEDS: 0.9 % Sodium Chloride Flush 3 ML SYRINGE IVFLUSH (14:43)
[2023-08-08] MEDS: Pantoprazole Sodium 40 MG/10 ML VIAL IVPUSH (14:43)
[2023-08-08 17:52] LABS: Glucose, Whole Blood 93 mg/dL (60-115)
--- NOTE | 2023-08-08 20:51 | PC.NURSE ---
this rn assumed care of pt @ 1900. pt stated wants to try top nap. pt placed on 2lpm prior to sleep
[2023-08-08 20:58] LABS: Glucose, Whole Blood 121 mg/dL (60-115)
[2023-08-09 02:33] VITALS: BP 119/63; PULSE 61; RESP 14; TEMP 36.6; O2SAT 96
[2023-08-09] MEDS: 0.9 % Sodium Chloride Flush 3 ML SYRINGE IVFLUSH ×3 (03:07→17:07)
[2023-08-09 04:09] VITALS: BP 142/65; PULSE 76; RESP 18; TEMP 36; O2SAT 92
[2023-08-09] MEDS: Pantoprazole Sodium 40 MG/10 ML VIAL IVPUSH (06:03)
[2023-08-09] MEDS: Levothyroxine Sodium 75 MCG TABLET PO (06:03)
[2023-08-09 06:33] LABS: MANUAL DIFF FLAG NO
[2023-08-09 06:59] VITALS: BP 131/89; PULSE 60; RESP 20; TEMP 36; O2SAT 97
[2023-08-09 07:05] LABS: Anion Gap 10 (12-20); Basophils Percent Auto 0.3 % (0-2); Blood Urea Nitrogen 19 mg/dL (9-16); Calcium 9.8 mg/dL (8.4-10.2); Carbon Dioxide 25 mmol/L (22-29); Chloride 107 mmol/L (96-108); Creatinine Clr Calc Pharmacy 35.8; Eosinophils Absolute Auto 0.4 X10*3/uL (0.0-0.4); Eosinophils Percent Auto 3.7 % (0-4); Estimated Glomerular Filt Rate 40; Glucose Random 96 mg/dL (60-115); Hemoglobin 10.8 g/dl (12.0-16.0); Imm Gran Abs Auto 0.13 X10*3/uL (0.00-0.03); Imm Gran Pct Auto 1.1 % (0.0-0.4); Lymphocytes Absolute Auto 2.9 X10*3/uL (1.2-4.9); Lymphocytes Percent Auto 24.9 % (20-40); Mean Corpuscular HGB Conc 33.8 g/dl (31.0-35.0); Mean Corpuscular Hemoglobin 30.1 pg (27.0-33.0); Mean Corpuscular Volume 89.1 fL (80.0-98.0); Mean Platelet Volume 10.4 fL (9.4-12.3); Monocytes Percent Auto 8.5 % (2-11); Neutrophils Absolute Auto 7.3 x10*3/uL (2.0-8.3); Neutrophils Percent Auto 61.5 % (45-73); Platelet Count 165 X10*3/uL (160-400); Potassium 4.4 mmol/L (3.3-5.1); Red Blood Count 3.59 X10*6/uL (4.20-5.50); Red Cell Distribution Width 12.9 % (11.0-16.0); Sodium 138 mmol/L (135-145); White Blood Count 11.8 X10*3/uL (4.8-10.8)
[2023-08-09 07:07] LABS: Magnesium 1.3 mg/dL (1.6-2.6)
[2023-08-09 07:16] LABS: Glucose, Whole Blood 95 mg/dL (60-115)
[2023-08-09 07:39] LABS: Lipase 124 U/L (8-78)
[2023-08-09] MEDS: Atorvastatin Calcium 20 MG TABLET PO (07:51)
[2023-08-09] MEDS: Cyanocobalamin (Vitamin B-12) 1,000 MCG TABLET 1000 MCG PO (07:51)
[2023-08-09] MEDS: Magnesium Sulfate/H2O 2 GM/50 ML PIGGYBACK IV (07:51)
[2023-08-09] MEDS: Cinacalcet HCl 30 MG TABLET PO (07:52)
[2023-08-09] MEDS: Cholecalciferol (Vitamin D3) 25 MCG TABLET PO (07:52)
[2023-08-09] MEDS: amLODIPine Besylate 10 MG TABLET PO (07:56)
[2023-08-09] MEDS: Spironolactone 25 MG TABLET 12.5 MG PO (09:04)
--- NOTE | 2023-08-09 09:16 | MHC.CM.PN ---
IMM 08/08. Pt self-care, lives at home with her and her son and [id number] also lives with them. Pt uses a cane, and walker outside of the home and has a walk-in shower and tub with grab bars at home. Pts or daughter to transport her home. HCP completed, now on file. PCP: ASH Dietz
[2023-08-09 11:10] LABS: Glucose, Whole Blood 114 mg/dL (60-115)
[2023-08-09 13:00] VITALS: O2SAT 92
--- NOTE | 2023-08-09 13:49 | PM.CNPUL ---
History of Present Illness History of Present Illness Consult date: 08/09/23 Chief complaint: Left base pulmonary nodule Narrative: 77-year-old lady, lifetime nonsmoker, with no family history of lung disease, but family history of breast cancer admitted and treated for pancreatitis. On CT abdomen obtain to evaluate abdominal pain left basilar pulmonary nodule noted. Dedicated CT chest did not demonstrate any other nodules. Pulmonary evaluation requested. Patient denies unintended weight loss. Review of Systems Constitutional: Constitutional: Denies daytime sleepiness, Denies excessive sweating, Denies fatigue, Denies fever(s), Denies lethargy, Denies malaise, Denies night sweats, Denies snoring and Denies weight loss Eyes: Eyes: Denies blurry vision and Denies itchy eyes ENT: Denies nasal congestion, Denies post nasal drip, Denies sinus pain, Denies sinus pressure and Denies other ( Thrush) Cardiovascular: Cardiovascular: Denies chest pain, Denies pedal edema, Denies dyspnea, Denies orthopnea and Denies paroxysmal nocturnal dyspnea Respiratory: Respiratory: Denies cough, Denies hemoptysis, Denies excessive phlegm production, Denies dyspnea, Denies snoring and Denies wheezing Gastrointestinal: Gastrointestinal: Reports abdominal pain and Denies heartburn Musculoskeletal: Musculoskeletal: Denies myalgias, Denies arthralgias and Denies joint swelling Integumentary/Breasts: Skin/Breast: Denies rash Neurologic: Denies memory loss and Denies seizure-like activity Psychiatric: Psychiatric: Denies abnormal sleep pattern, Denies anxiety and Denies memory loss Endocrine: Endocrine: Denies excessive sweating, Denies fatigue and Denies heat intolerance Hematologic/Lymphatic: Hematologic/Lymphatic: Denies easy bruising Allergic/Immunologic: Allergic/Immunologic: Denies itchy eyes, Denies seasonal rhinorrhea and Denies wheezing PMF Past Medical History Medical History (Updated 08/08/23 @ 14:30 by ROLANDO Field) AV block Type 2 diabetes mellitus with unspecified complications Pacemaker Hypercholesteremia GERD (gastroesophageal reflux disease) Hypothyroid Hypertension Family History Family History Mother HTN (hypertension) Heart attack Father No problems noted. Maternal Grandmother Breast cancer Surgical History Surgical History History of tonsillectomy H/O total knee replacement H/O: hysterectomy Hx of cholecystectomy Social History Social History Household Members: Spouse Housing: House Do you presently have visiting nurse or other home services: No Alcohol intake: current Alcohol intake frequency: holidays/special occasions only Patient Tobacco Use Status: Never used Tobacco service: No Meds Allergies Allergy/AdvReac Type Severity Reaction Status Date / Time No Known Allergies Allergy Verified 08/03/23 00:17 Active Medications: Current Medications Acetaminophen (Acetaminophen 325 Mg Tablet) 650 mg PO Q6H PRN PRN Reason: Pain, Mild (Pain Scale 1-3) Amlodipine Besylate (Amlodipine Besylate 10 Mg Tablet) 10 mg PO DAILY [facility]; Protocol Last Admin: 08/09/23 07:56 Dose: 10 mg Atorvastatin Calcium (Atorvastatin Calcium 20 Mg Tablet) 20 mg PO DAILY [facility] Last Admin: 08/09/23 07:51 Dose: 20 mg Belladonna Alkaloids/Phenobarbital (Phenobarb/Hyoscy/Atropine/Scop 10 Ml Elixir) 5 ml PO TID PRN PRN Reason: Heartburn Benzonatate (Benzonatate 100 Mg Capsule) 100 mg PO TID PRN PRN Reason: Cough Cinacalcet (Cinacalcet Hcl 30 Mg Tablet) 30 mg PO DAILY [facility] Last Admin: 08/09/23 07:52 Dose: 30 mg Cyanocobalamin (Cyanocobalamin (Vitamin B-12) 1,000 Mcg Tablet) 1,000 mcg PO DAILY [facility] Last Admin: 08/09/23 07:51 Dose: 1,000 mcg Dextrose (Dextrose 50 % 25 Gm/50 Ml Syringe) 25 gm IVPUSH Q15M PRN; Protocol PRN Reason: per Hypoglycemia Standing Ord. Docusate Sodium (Docusate Sodium 100 Mg Capsule) 100 mg PO DAILY PRN PRN Reason: Constipation Glucose (Glucose Gel 15 Gm Gel..Gram.) 15 gm PO Q15M PRN; Protocol PRN Reason: per Hypoglycemia Standing Ord. Insulin Human Lispro (Insulin Lispro 100 Unit/Ml 3 Ml Vial) 0 unit SUBCUT QIDACHS [facility]; Protocol Last Admin: 08/09/23 07:52 Dose: Not Given Levothyroxine Sodium (Levothyroxine Sodium 75 Mcg Tablet) 75 mcg PO DAILY@0600 [facility] Last Admin: 08/09/23 06:03 Dose: 75 mcg Melatonin (Melatonin 3 Mg Tablet) 6 mg PO BEDTIME PRN PRN Reason: Insomnia Ondansetron HCl (Ondansetron Hcl 4 Mg/2 Ml Vial) 4 mg IVPUSH Q8H PRN PRN Reason: Nausea and Vomiting Pantoprazole Sodium (Pantoprazole Sodium 40 Mg/10 Ml Vial) 40 mg IVPUSH DAILY@0630 [facility] Last Admin: 08/09/23 06:03 Dose: 40 mg Sodium Chloride (0.9 % Sodium Chloride Flush 3 Ml Syringe) 3 ml IVFLUSH QSHIFT [facility] Last Admin: 08/09/23 07:52 Dose: 3 ml Spironolactone (Spironolactone 25 Mg Tablet) 12.5 mg PO DAILY [facility]; Protocol Last Admin: 08/09/23 09:04 Dose: 12.5 mg Vitamin D (Cholecalciferol (Vitamin D3) 25 Mcg Tablet) 25 mcg PO DAILY [facility] Last Admin: 08/09/23 07:52 Dose: 25 mcg Home Medications Medication Instructions Recorded Confirmed Last Taken Type aspirin 81 mg tablet,delayed 81 mg PO DAILY 11/29/20 08/08/23 Unknown History release (Adult Low Dose Aspirin) acetaminophen 500 mg tablet 500 mg PO Q6H PRN Pain 05/03/21 08/08/23 Unknown History (Tylenol Extra Strength) metformin 500 mg tablet 500 mg PO DAILY@1700 05/03/21 08/08/23 Unknown History pantoprazole 40 mg tablet,delayed 40 mg PO DAILY@1700 06/25/22 08/08/23 Unknown History release cholecalciferol (vitamin D3) 25 25 mcg PO DAILY 07/16/23 08/08/23 Unknown History mcg (1,000 unit) capsule rosuvastatin 5 mg tablet 5 mg PO DAILY 07/16/23 08/08/23 Unknown History amlodipine 10 mg tablet 10 mg PO DAILY 08/08/23 08/08/23 Unknown History biotin 5 mg tablet 5 mg PO DAILY 08/08/23 08/08/23 Unknown History cyanocobalamin (vitamin B-12) 1,000 mcg PO DAILY 08/08/23 08/08/23 Unknown History 1,000 mcg tablet (Vitamin B-12) famotidine 20 mg tablet 20 mg PO DAILY 08/08/23 08/08/23 Unknown History levothyroxine 75 mcg tablet 75 mcg PO DAILY@0600 08/08/23 08/08/23 Unknown History nystatin 100,000 unit/gram topical 1 appl topical BID PRN Rash 08/08/23 08/08/23 Unknown History powder (Nystop) spironolactone 25 mg tablet 25 mg PO DAILY 08/08/23 08/08/23 Unknown History Physical Exam Vital Signs: Vital Signs: Last Vital Signs Temp 96.8 F 08/09/23 06:59 Pulse 60 08/09/23 06:59 Resp 20 08/09/23 06:59 BP 131/89 08/09/23 06:59 Pulse Ox 97 08/09/23 06:59 O2 Del Method Nasal Cannula 08/09/23 06:59 O2 Flow Rate 2 08/09/23 06:59 BMI result Body Mass Index 37.5 Const: General: no acute distress and alert Nutritional Appearance: obese Orientation/consciousness: Other orientation findings ( oriented) HEENT: Head: Yes atraumatic Eyes: General: appearance normal, both eyes and all related structures Sclerae: sclerae normal EOM: EOMs intact bilaterally Neck: Neck: Yes supple Lymphatic: no lymphadenopathy noted Resp: Effort & Inspection: normal respiratory effort and no use of accessory muscles Auscultation: clear to auscultation bilaterally Cardio: Rate: regular rate Rhythm: regular rhythm Heart sounds: no gallops, no murmurs and no rubs Skin: General skin exam: other ( warm) Extrem: General: No clubbing, No cyanosis and No edema Results Laboratory Findings 08/09/23 06:20 08/09/23 06:20 Abnormal lab findings: Abnormal Labs 08/07/23 08/08/23 08/09/23 19:35 20:52 06:20 WBC 16.5 H 11.8 H RBC 4.18 L 3.59 L Hgb 10.8 L Hct 36.9 L 32.0 L Immature Gran % (Auto) 1.3 H 1.1 H [place] # (Auto) 1.4 H Eos # (Auto) 0.6 H Abs Immat Gran (auto) 0.21 H 0.13 H Absolute Neuts (auto) 10.3 H Anion Gap 10 L BUN 25 H 19 H POC Glucose 121 H Magnesium 1.0 L* 1.3 L* Lipase 450 H 124 H Assessment and Plan (1) Mass of left lung: Status: Acute Plan Impression: 77-year-old lady admitted and treated for acute pancreatitis with an incidental finding of 2 cm left lower lobe mass. Recommendations: Outpatient workup with PET scan and depending on results possible biopsy. Will arrange for outpatient follow-up and PET scan. Procedures Date of Service Date of Service: 08/09/23
[2023-08-09 14:00] VITALS: BP 116/56; PULSE 79; RESP 20; TEMP 36.1; O2SAT 94
--- NOTE | 2023-08-09 14:21 | P.PNIM_ITS ---
Subjective Subjective Date of Service: 08/09/23 Interval History: seen and examined this morning follow up for abdominal pain, nausea, lung mass reporting nausea and some gi discomfort no vomiting no sob Review of Systems Review of Systems: Yes all other systems are reviewed and are negative Constitutional Constitutional: Denies chills and Denies fever(s) Cardiovascular Cardiovascular: Denies chest pain, Denies palpitations and Denies dyspnea Respiratory Respiratory: Denies cough and Denies dyspnea Gastrointestinal Gastrointestinal: Reports abdominal pain Endocrine Endocrine: Denies palpitations Physical Exam 2 Vital Signs: Vital Signs: Last Vital Signs Temp 96.8 F 08/09/23 06:59 Pulse 60 08/09/23 06:59 Resp 20 08/09/23 06:59 BP 131/89 08/09/23 06:59 Pulse Ox 92 08/09/23 13:00 O2 Del Method Room Air 08/09/23 13:52 O2 Flow Rate 2 08/09/23 06:59 BMI result Body Mass Index 37.5 Const: General: cooperative, comfortable, alert and awake Nutritional Appearance: overweight Orientation/consciousness: patient oriented x3 Resp: Effort & Inspection: normal respiratory effort, able to speak in complete sentences, no respiratory distress and no use of accessory muscles A uscultation: clear to auscultation bilaterally Cardio: Rate: regular rate GI: Inspection: No distended Palpation (GI): Soft to palpation and nontender Neuro: General: patient oriented x3, moves all extremities and CN's II-XI intact bilaterally Extrem: General: Yes no pedal edema Objective Data Active Medications Acetaminophen (Acetaminophen 325 Mg Tablet) 650 mg PO Q6H PRN PRN Reason: Pain, Mild (Pain Scale 1-3) Amlodipine Besylate (Amlodipine Besylate 10 Mg Tablet) 10 mg PO DAILY [facility]; Protocol Last Admin: 08/09/23 07:56 Dose: 10 mg Documented By: ZACKERY Atorvastatin Calcium (Atorvastatin Calcium 20 Mg Tablet) 20 mg PO DAILY [facility] Last Admin: 08/09/23 07:51 Dose: 20 mg Documented By: ZACKERY Belladonna Alkaloids/Phenobarbital (Phenobarb/Hyoscy/Atropine/Scop 10 Ml Elixir) 5 ml PO TID PRN PRN Reason: Heartburn Benzonatate (Benzonatate 100 Mg Capsule) 100 mg PO TID PRN PRN Reason: Cough Cinacalcet (Cinacalcet Hcl 30 Mg Tablet) 30 mg PO DAILY [facility] Last Admin: 08/09/23 07:52 Dose: 30 mg Documented By: ZACKERY Cyanocobalamin (Cyanocobalamin (Vitamin B-12) 1,000 Mcg Tablet) 1,000 mcg PO DAILY [facility] Last Admin: 08/09/23 07:51 Dose: 1,000 mcg Documented By: ZACKERY Dextrose (Dextrose 50 % 25 Gm/50 Ml Syringe) 25 gm IVPUSH Q15M PRN; Protocol PRN Reason: per Hypoglycemia Standing Ord. Docusate Sodium (Docusate Sodium 100 Mg Capsule) 100 mg PO DAILY PRN PRN Reason: Constipation Glucose (Glucose Gel 15 Gm Gel..Gram.) 15 gm PO Q15M PRN; Protocol PRN Reason: per Hypoglycemia Standing Ord. Insulin Human Lispro (Insulin Lispro 100 Unit/Ml 3 Ml Vial) 0 unit SUBCUT QIDACHS [facility]; Protocol Last Admin: 08/09/23 13:50 Dose: Not Given Documented By: ZACKERY Non-Admin Reason: No Insulin Coverage Levothyroxine Sodium (Levothyroxine Sodium 75 Mcg Tablet) 75 mcg PO DAILY@0600 [facility] Last Admin: 08/09/23 06:03 Dose: 75 mcg Documented By: NEREIDA Melatonin (Melatonin 3 Mg Tablet) 6 mg PO BEDTIME PRN PRN Reason: Insomnia Ondansetron HCl (Ondansetron Hcl 4 Mg/2 Ml Vial) 4 mg IVPUSH Q8H PRN PRN Reason: Nausea and Vomiting Pantoprazole Sodium (Pantoprazole Sodium 40 Mg/10 Ml Vial) 40 mg IVPUSH DAILY@0630 [facility] Last Admin: 08/09/23 06:03 Dose: 40 mg Documented By: ANTSALTY Sodium Chloride (0.9 % Sodium Chloride Flush 3 Ml Syringe) 3 ml IVFLUSH QSHIFT [facility] Last Admin: 08/09/23 07:52 Dose: 3 ml Documented By: ZACKERY Spironolactone (Spironolactone 25 Mg Tablet) 12.5 mg PO DAILY [facility]; Protocol Last Admin: 08/09/23 09:04 Dose: 12.5 mg Documented By: ZACKERY Vitamin D (Cholecalciferol (Vitamin D3) 25 Mcg Tablet) 25 mcg PO DAILY [facility] Last Admin: 08/09/23 07:52 Dose: 25 mcg Documented By: ZACKERY Labs 08/09/23 06:20 08/09/23 06:20 Labs: Laboratory Results - last 24 hr 08/08/23 08/08/23 08/08/23 14:47 17:44 20:52 MCV MCH MCHC RDW Plt Count MPV Immature Gran % (Auto) Neut % (Auto) Lymph % (Auto) [place] % (Auto) Eos % (Auto) Baso % (Auto) Lymph # (Auto) [place] # (Auto) Eos # (Auto) Baso # (Auto) Abs Immat Gran (auto) Absolute Neuts (auto) Absolute Nucleated RBC Nucleated RBC % (auto) Anion Gap Estim Creat Clear Calc Estimated GFR POC Glucose 93 121 H Random Glucose Calcium Magnesium Troponin I High Sens 12.0 Lipase 08/09/23 08/09/23 08/09/23 06:20 07:05 10:49 MCV 89.1 MCH 30.1 MCHC 33.8 RDW 12.9 Plt Count 165 MPV 10.4 Immature Gran % (Auto) 1.1 H Neut % (Auto) 61.5 Lymph % (Auto) 24.9 [place] % (Auto) 8.5 Eos % (Auto) 3.7 Baso % (Auto) 0.3 Lymph # (Auto) 2.9 [place] # (Auto) 1.0 Eos # (Auto) 0.4 Baso # (Auto) 0.0 Abs Immat Gran (auto) 0.13 H Absolute Neuts (auto) 7.3 Absolute Nucleated RBC 0.000 Nucleated RBC % (auto) 0.0 Anion Gap 10 L Estim Creat Clear Calc 35.8 Estimated GFR 40 POC Glucose 95 114 Random Glucose 96 Calcium 9.8 Magnesium 1.3 L* Troponin I High Sens Lipase 124 H Assessment and Plan (1) Mass of left lung: Status: Acute (2) Hypomagnesemia: Status: Acute (3) Elevated lipase: Status: Acute Plan This is a 77-year-old female with a PMH significant for?HTN, HLD, AV block, pacemaker, [id number] diabetes type 2, GERD, hiatal hernia, and hypothyroidism who presents to the ED for evaluation of nausea and epigastric abdominal pain found to have elevated lipase concerning for possible pancreatitis Epigastric pain ?secondary to gastritis/acid reflux vs mild pancreatitis CT abdomen with no acute abnormalities has had similar pain in the past, sees dr. varghese, thought to be secondary to hiatal hernia/GERD lipase trending down still with some nausea and heartburn continue IV Protonix Hold aspirin full liquid diet, advance as tolerated Elevated troponin repeat cardiac enzymes flat EKG without ischemic changes Hypomagnesemia, repleated back down to 1.3 this am IV mag ordered Leukocytosis Likely secondary to recent steroid use. trending down no evidence of infection No indication for antibiotics at this time Suspicious left lower lobe lung mass Chest CT report pending seen by pulmonology - plan for outpatient PET scan and possible biopsy depending on results self reported nocturnal hypoxia reportedly discovered on recent admission at [facility] prn oxygen at night Follow up outpatient with PCP for sleep study HTN Continue amlodipine, spironolactone (med rec says 25 mg, pt reports taking 1/2 tablet at home) [id number] type 2 diabetes Hold metformin SSI, POCs Hypothyroidism Continue levothyroxine GERD Hold home meds Treat as above Full Code Attending:?Dr. Patiño DVT Prophylaxis: Lovenox Pt will require a hospitalization of at least two nights for treatment of?and further evaluation of elevated lipase and epigastric discomfort in the setting of likely gastritis with new CT findings of suspicious left lower lobe mass. Given patient's recent hospitalization and significant comorbidities, patient will require hospitalization for close monitoring of labs and specialist consultation with pulmonology. Quality Stroke Does the patient have a stroke diagnosis?: No VTE Prior VTE?: No VTE Risk Level:: Medical - moderate - high VTE Device Contraindication: N/A - Device Ordered VTE Drug Contraindication: Treatment Not Indicated
[2023-08-09 15:27] VITALS: BP 125/58; RESP 18; TEMP 35.9; O2SAT 92
[2023-08-09 16:35] LABS: Glucose, Whole Blood 107 mg/dL (60-115)
[2023-08-09 21:26] LABS: Glucose, Whole Blood 128 mg/dL (60-115)
[2023-08-10] VITALS: BP 120/59; PULSE 62; RESP 20; TEMP 36.1; O2SAT 96
[2023-08-10] MEDS: Pantoprazole Sodium 40 MG/10 ML VIAL IVPUSH (06:05)
[2023-08-10] MEDS: Levothyroxine Sodium 75 MCG TABLET PO (06:05)
[2023-08-10 07:12] LABS: Magnesium 1.2 mg/dL (1.6-2.6)
[2023-08-10 07:17] LABS: Glucose, Whole Blood 113 mg/dL (60-115)
[2023-08-10 07:26] VITALS: BP 129/61; PULSE 65; RESP 20; TEMP 36.6; O2SAT 92
[2023-08-10] MEDS: Atorvastatin Calcium 20 MG TABLET PO (08:27)
[2023-08-10] MEDS: Cinacalcet HCl 30 MG TABLET PO (08:27)
[2023-08-10] MEDS: amLODIPine Besylate 10 MG TABLET PO (08:27)
[2023-08-10] MEDS: Magnesium Oxide 400 MG TABLET PO ×2 (08:27→16:31)
[2023-08-10] MEDS: Cholecalciferol (Vitamin D3) 25 MCG TABLET PO (08:27)
[2023-08-10] MEDS: Cyanocobalamin (Vitamin B-12) 1,000 MCG TABLET 1000 MCG PO (08:27)
[2023-08-10] MEDS: Magnesium Sulfate/H2O 2 GM/50 ML PIGGYBACK IV (08:28)
[2023-08-10] MEDS: 0.9 % Sodium Chloride Flush 3 ML SYRINGE IVFLUSH ×4 (08:29→23:02)
[2023-08-10] MEDS: Spironolactone 25 MG TABLET 12.5 MG PO (08:33)
--- NOTE | 2023-08-10 10:39 | P.PNIM_ITS ---
Subjective Subjective Date of Service: 08/10/23 Interval History: seen and examined this morning follow up for abdominal pain, nausea, lung mass no nausea or abd pain Review of Systems Review of Systems: Yes all other systems are reviewed and are negative Constitutional Constitutional: Denies chills and Denies fever(s) Cardiovascular Cardiovascular: Denies chest pain, Denies palpitations and Denies dyspnea Respiratory Respiratory: Denies cough and Denies dyspnea Gastrointestinal Gastrointestinal: Reports abdominal pain Endocrine Endocrine: Denies palpitations Physical Exam 2 Vital Signs: Vital Signs: Last Vital Signs Temp 97.8 F 08/10/23 07:26 Pulse 65 08/10/23 07:26 Resp 20 08/10/23 07:26 BP 129/61 08/10/23 07:26 Pulse Ox 92 08/10/23 07:26 O2 Del Method Room Air 08/10/23 07:26 O2 Flow Rate 2 08/10/23 00:00 BMI result Body Mass Index 37.5 Appearing in no acute distress lung sounds are clear to auscultation heart regular rate rhythm, clear S1, S2 positive bowel sounds, abdomen is soft, nontender neuro patient is alert x3, no focal deficits Objective Data Active Medications Acetaminophen (Acetaminophen 325 Mg Tablet) 650 mg PO Q6H PRN PRN Reason: Pain, Mild (Pain Scale 1-3) Amlodipine Besylate (Amlodipine Besylate 10 Mg Tablet) 10 mg PO DAILY [facility]; Protocol Last Admin: 08/10/23 08:27 Dose: 10 mg Documented By: LEONARDO Atorvastatin Calcium (Atorvastatin Calcium 20 Mg Tablet) 20 mg PO DAILY [facility] Last Admin: 08/10/23 08:27 Dose: 20 mg Documented By: LEONARDO Belladonna Alkaloids/Phenobarbital (Phenobarb/Hyoscy/Atropine/Scop 10 Ml Elixir) 5 ml PO TID PRN PRN Reason: Heartburn Benzonatate (Benzonatate 100 Mg Capsule) 100 mg PO TID PRN PRN Reason: Cough Cinacalcet (Cinacalcet Hcl 30 Mg Tablet) 30 mg PO DAILY [facility] Last Admin: 08/10/23 08:27 Dose: 30 mg Documented By: LEONARDO Cyanocobalamin (Cyanocobalamin (Vitamin B-12) 1,000 Mcg Tablet) 1,000 mcg PO DAILY [facility] Last Admin: 08/10/23 08:27 Dose: 1,000 mcg Documented By: LEONARDO Dextrose (Dextrose 50 % 25 Gm/50 Ml Syringe) 25 gm IVPUSH Q15M PRN; Protocol PRN Reason: per Hypoglycemia Standing Ord. Docusate Sodium (Docusate Sodium 100 Mg Capsule) 100 mg PO DAILY PRN PRN Reason: Constipation Glucose (Glucose Gel 15 Gm Gel..Gram.) 15 gm PO Q15M PRN; Protocol PRN Reason: per Hypoglycemia Standing Ord. Insulin Human Lispro (Insulin Lispro 100 Unit/Ml 3 Ml Vial) 0 unit SUBCUT QIDACHS [facility]; Protocol Last Admin: 08/10/23 08:23 Dose: Not Given Documented By: LEONARDO Non-Admin Reason: No Insulin Coverage Levothyroxine Sodium (Levothyroxine Sodium 75 Mcg Tablet) 75 mcg PO DAILY@0600 [facility] Last Admin: 08/10/23 06:05 Dose: 75 mcg Documented By: CHRIS Magnesium Oxide (Magnesium Oxide 400 Mg Tablet) 400 mg PO BIDPC [facility] Last Admin: 08/10/23 08:27 Dose: 400 mg Documented By: LEONARDO Melatonin (Melatonin 3 Mg Tablet) 6 mg PO BEDTIME PRN PRN Reason: Insomnia Ondansetron HCl (Ondansetron Hcl 4 Mg/2 Ml Vial) 4 mg IVPUSH Q8H PRN PRN Reason: Nausea and Vomiting Pantoprazole Sodium (Pantoprazole Sodium 40 Mg/10 Ml Vial) 40 mg IVPUSH DAILY@0630 [facility] Last Admin: 08/10/23 06:05 Dose: 40 mg Documented By: CHRIS Sodium Chloride (0.9 % Sodium Chloride Flush 3 Ml Syringe) 3 ml IVFLUSH QSHIFT [facility] Last Admin: 08/10/23 08:29 Dose: 3 ml Documented By: LEONARDO Spironolactone (Spironolactone 25 Mg Tablet) 12.5 mg PO DAILY [facility]; Protocol Last Admin: 08/10/23 08:33 Dose: 12.5 mg Documented By: LEONARDO Vitamin D (Cholecalciferol (Vitamin D3) 25 Mcg Tablet) 25 mcg PO DAILY [facility] Last Admin: 08/10/23 08:27 Dose: 25 mcg Documented By: LEONARDO Labs 08/09/23 06:20 08/09/23 06:20 Labs: Laboratory Results - last 24 hr 08/09/23 08/09/23 08/09/23 10:49 16:27 21:16 Hold Purple Top POC Glucose 114 107 128 H Magnesium 08/10/23 08/10/23 06:03 07:06 Hold Purple Top SEE NOTE POC Glucose 113 Magnesium 1.2 L* Assessment and Plan (1) Mass of left lung: Status: Acute (2) Hypomagnesemia: Status: Acute (3) Elevated lipase: Status: Acute Plan This is a 77-year-old female with a PMH significant for?HTN, HLD, AV block, pacemaker, [id number] diabetes type 2, GERD, hiatal hernia, and hypothyroidism who presents to the ED for evaluation of nausea and epigastric abdominal pain found to have elevated lipase concerning for possible pancreatitis Epigastric pain secondary to gastritis/acid reflux vs mild pancreatitis CT abdomen with no acute abnormalities has had similar pain in the past, sees dr. varghese, thought to be secondary to hiatal hernia/GERD lipase trending down IV Protonix, transition to oral Hold aspirin Advance diet to ADA Hypomagnesemia, repleated still low IV and oral mag ordered Elevated troponin repeat cardiac enzymes flat EKG without ischemic changes Leukocytosis Likely secondary to recent steroid use. trending down no evidence of infection No indication for antibiotics at this time Suspicious left lower lobe lung mass Chest CT report pending seen by pulmonology - plan for outpatient PET scan and possible biopsy depending on results self reported nocturnal hypoxia reportedly discovered on recent admission at [facility] prn oxygen at night inpatient sleep study ordered HTN Continue amlodipine, spironolactone (med rec says 25 mg, pt reports taking 1/2 tablet at home) [id number] type 2 diabetes SSI, POCs Hypothyroidism Continue levothyroxine GERD IV PPI, transition to po tommorrow Full Code Attending:?Dr. Rosa DVT Prophylaxis: Lovenox Pt will require a hospitalization of at least two nights for treatment of?and further evaluation of elevated lipase and epigastric discomfort in the setting of likely gastritis with new CT findings of suspicious left lower lobe mass. Given patient's recent hospitalization and significant comorbidities, patient will require hospitalization for close monitoring of labs and specialist consultation with pulmonology. Quality Stroke Does the patient have a stroke diagnosis?: No VTE Prior VTE?: No VTE Risk Level:: Medical - moderate - high VTE Device Contraindication: N/A - Device Ordered VTE Drug Contraindication: Treatment Not Indicated
[2023-08-10 11:26] VITALS: BP 134/60; PULSE 86; RESP 20; TEMP 35.9; O2SAT 94
[2023-08-10 12:13] LABS: Glucose, Whole Blood 103 mg/dL (60-115)
[2023-08-10 15:04] VITALS: BP 133/63; PULSE 82; RESP 17; TEMP 36.1; O2SAT 97
[2023-08-10 16:13] LABS: Glucose, Whole Blood 95 mg/dL (60-115)
[2023-08-10 19:01] VITALS: BP 128/58; PULSE 87; RESP 17; TEMP 36.1; O2SAT 93
[2023-08-10 20:31] LABS: Glucose, Whole Blood 131 mg/dL (60-115)
[2023-08-11] VITALS: BP 124/58; PULSE 72; RESP 20; TEMP 36.1; O2SAT 97
[2023-08-11] MEDS: bisacodyL 10 MG SUPP.RECT PR (03:30)
[2023-08-11] MEDS: polyethylene glycoL 3350 17 GM POWD.PACK PO (04:28)
[2023-08-11] MEDS: Docusate Sodium 100 MG CAPSULE PO (04:28)
[2023-08-11] MEDS: Levothyroxine Sodium 75 MCG TABLET PO (05:50)
[2023-08-11 06:15] LABS: Anion Gap 12 (12-20); Blood Urea Nitrogen 14 mg/dL (9-16); Carbon Dioxide 23 mmol/L (22-29); Chloride 104 mmol/L (96-108); Creatinine Clr Calc Pharmacy 37.6; Estimated Glomerular Filt Rate 42; Glucose Random 172 mg/dL (60-115); Potassium 3.9 mmol/L (3.3-5.1); Sodium 135 mmol/L (135-145)
[2023-08-11 06:22] LABS: Magnesium 1.3 mg/dL (1.6-2.6)
[2023-08-11] MEDS: Magnesium Sulfate/H2O 2 GM/50 ML PIGGYBACK IV ×2 (06:51→08:55)
[2023-08-11 07:19] VITALS: BP 140/65; PULSE 79; RESP 20; TEMP 36.2; O2SAT 96
[2023-08-11 07:46] LABS: Glucose, Whole Blood 115 mg/dL (60-115)
[2023-08-11] MEDS: Magnesium Oxide 400 MG TABLET PO ×3 (08:42→17:26)
[2023-08-11] MEDS: Atorvastatin Calcium 20 MG TABLET PO (08:42)
[2023-08-11] MEDS: Spironolactone 25 MG TABLET 12.5 MG PO (08:42)
[2023-08-11] MEDS: Cinacalcet HCl 30 MG TABLET PO (08:43)
[2023-08-11] MEDS: Cholecalciferol (Vitamin D3) 25 MCG TABLET PO (08:43)
[2023-08-11] MEDS: Cyanocobalamin (Vitamin B-12) 1,000 MCG TABLET 1000 MCG PO (08:44)
[2023-08-11] MEDS: amLODIPine Besylate 10 MG TABLET PO (08:44)
[2023-08-11] MEDS: 0.9 % Sodium Chloride Flush 3 ML SYRINGE IVFLUSH ×2 (09:02→17:27)
--- NOTE | 2023-08-11 10:31 | P.PNIM_ITS ---
Subjective Subjective Date of Service: 08/11/23 Interval History: seen and examined this morning follow up for abdominal pain, nausea, lung mass no nausea or abd pain Review of Systems Review of Systems: Yes all other systems are reviewed and are negative Constitutional Constitutional: Denies chills and Denies fever(s) Cardiovascular Cardiovascular: Denies chest pain, Denies palpitations and Denies dyspnea Respiratory Respiratory: Denies cough and Denies dyspnea Gastrointestinal Gastrointestinal: Reports abdominal pain Endocrine Endocrine: Denies palpitations Physical Exam 2 Vital Signs: Vital Signs: Last Vital Signs Temp 97.2 F 08/11/23 07:19 Pulse 79 08/11/23 07:19 Resp 20 08/11/23 07:19 BP 140/65 H 08/11/23 07:19 Pulse Ox 96 08/11/23 07:19 O2 Del Method Nasal Cannula 08/11/23 07:19 O2 Flow Rate 2 08/11/23 07:19 BMI result Body Mass Index 37.5 Appearing in no acute distress lung sounds are clear to auscultation heart regular rate rhythm, clear S1, S2 positive bowel sounds, abdomen is soft, nontender neuro patient is alert x3, no focal deficits Objective Data Active Medications Acetaminophen (Acetaminophen 325 Mg Tablet) 650 mg PO Q6H PRN PRN Reason: Pain, Mild (Pain Scale 1-3) Amlodipine Besylate (Amlodipine Besylate 10 Mg Tablet) 10 mg PO DAILY [facility]; Protocol Last Admin: 08/11/23 08:44 Dose: 10 mg Documented By: DAVONTE Atorvastatin Calcium (Atorvastatin Calcium 20 Mg Tablet) 20 mg PO DAILY [facility] Last Admin: 08/11/23 08:42 Dose: 20 mg Documented By: DAVONTE Belladonna Alkaloids/Phenobarbital (Phenobarb/Hyoscy/Atropine/Scop 10 Ml Elixir) 5 ml PO TID PRN PRN Reason: Heartburn Benzonatate (Benzonatate 100 Mg Capsule) 100 mg PO TID PRN PRN Reason: Cough Cinacalcet (Cinacalcet Hcl 30 Mg Tablet) 30 mg PO DAILY [facility] Last Admin: 08/11/23 08:43 Dose: 30 mg Documented By: DAVONTE Cyanocobalamin (Cyanocobalamin (Vitamin B-12) 1,000 Mcg Tablet) 1,000 mcg PO DAILY [facility] Last Admin: 08/11/23 08:44 Dose: 1,000 mcg Documented By: DAVONTE Dextrose (Dextrose 50 % 25 Gm/50 Ml Syringe) 25 gm IVPUSH Q15M PRN; Protocol PRN Reason: per Hypoglycemia Standing Ord. Docusate Sodium (Docusate Sodium 100 Mg Capsule) 100 mg PO DAILY PRN PRN Reason: Constipation Last Admin: 08/11/23 04:28 Dose: 100 mg Documented By: ALEJANDRA Glucose (Glucose Gel 15 Gm Gel..Gram.) 15 gm PO Q15M PRN; Protocol PRN Reason: per Hypoglycemia Standing Ord. Insulin Human Lispro (Insulin Lispro 100 Unit/Ml 3 Ml Vial) 0 unit SUBCUT QIDACHS [facility]; Protocol Last Admin: 08/11/23 08:36 Dose: Not Given Documented By: DAVONTE Non-Admin Reason: No Insulin Coverage Levothyroxine Sodium (Levothyroxine Sodium 75 Mcg Tablet) 75 mcg PO DAILY@0600 [facility] Last Admin: 08/11/23 05:50 Dose: 75 mcg Documented By: ALEJANDRA Magnesium Oxide (Magnesium Oxide 400 Mg Tablet) 400 mg PO BIDPC [facility] Last Admin: 08/11/23 08:42 Dose: 400 mg Documented By: DAVONTE Melatonin (Melatonin 3 Mg Tablet) 6 mg PO BEDTIME PRN PRN Reason: Insomnia Ondansetron HCl (Ondansetron Hcl 4 Mg/2 Ml Vial) 4 mg IVPUSH Q8H PRN PRN Reason: Nausea and Vomiting Sodium Chloride (0.9 % Sodium Chloride Flush 3 Ml [facility]) [facility] Admin: 08/11/23 09:02 Dose: 3 ml Documented By: DAVONTE Spironolactone (Spironolactone 25 Mg Tablet) 12.5 mg PO DAILY [facility]; Protocol Last Admin: 08/11/23 08:42 Dose: 12.5 mg Documented By: DAVONTE Vitamin D (Cholecalciferol (Vitamin D3) 25 Mcg Tablet) 25 mcg PO DAILY [facility] Last Admin: 08/11/23 08:43 Dose: 25 mcg Documented By: DAVONTE Labs 08/09/23 06:20 08/11/23 05:28 Labs: Laboratory Results - last 24 hr 08/10/23 08/10/23 08/10/23 12:06 15:53 20:17 Hold Purple Top Anion Gap Estim Creat Clear Calc Estimated GFR POC Glucose 103 95 131 H Random Glucose Calcium Magnesium 08/11/23 08/11/23 05:28 07:21 Hold Purple Top SEE NOTE Anion Gap 12 Estim Creat Clear Calc 37.6 Estimated GFR 42 POC Glucose 115 Random Glucose 172 H Calcium 10.0 Magnesium 1.3 L* Assessment and Plan (1) Mass of left lung: Status: Acute (2) Hypomagnesemia: Status: Acute (3) Elevated lipase: Status: Acute Plan 77-year-old female with a PMH significant for?HTN, HLD, AV block, pacemaker, [id number] diabetes type 2, GERD, hiatal hernia, and hypothyroidism who presents to the ED for evaluation of nausea and epigastric abdominal pain found to have elevated lipase concerning for possible pancreatitis Epigastric pain secondary to gastritis/acid reflux vs mild pancreatitis CT abdomen with no acute abnormalities has had similar pain in the past, sees dr. varghese, thought to be secondary to hiatal hernia/GERD lipase trending down s/p IV Protonix Hold aspirin Advance diet to ADA Hypomagnesemia, repleated possibly from PPI as these medications may cause impaired intestinal absorption of magnesium still low IV and oral mag 400mg BID ordered Elevated troponin repeat cardiac enzymes flat EKG without ischemic changes Leukocytosis Likely secondary to recent steroid use. trending down no evidence of infection No indication for antibiotics at this time Suspicious left lower lobe lung mass Chest CT report pending seen by pulmonology - plan for outpatient PET scan and possible biopsy depending on results self reported nocturnal hypoxia reportedly discovered on recent admission at [facility] prn oxygen at night inpatient sleep study ordered HTN Continue amlodipine, spironolactone 12.5 mg at home [id number] type 2 diabetes SSI, POCs Hypothyroidism Continue levothyroxine GERD PPI stopped due to hypomagnesemia Full Code Attending:?Dr. Rosa DVT Prophylaxis: Lovenox continue hospital stay for tx of hypomagensemia requiring IV and oral replacement Quality Stroke Does the patient have a stroke diagnosis?: No VTE Prior VTE?: No VTE Risk Level:: Medical - moderate - high VTE Device Contraindication: N/A - Device Ordered VTE Drug Contraindication: Treatment Not Indicated
[2023-08-11 10:41] LABS: Glucose, Whole Blood 129 mg/dL (60-115)
[2023-08-11 12:53] LABS: Magnesium 3.8 mg/dL (1.6-2.6)
[2023-08-11 13:50] LABS: Magnesium 2.2 mg/dL (1.6-2.6)
[2023-08-11 15:10] VITALS: BP 108/57; PULSE 78; RESP 18; TEMP 36.5; O2SAT 94
[2023-08-11 16:06] LABS: Glucose, Whole Blood 141 mg/dL (60-115)
[2023-08-11 19:45] LABS: Glucose, Whole Blood 126 mg/dL (60-115)
[2023-08-11 23:58] VITALS: BP 129/61; PULSE 64; RESP 18; TEMP 36.3; O2SAT 96
[2023-08-12] MEDS: Levothyroxine Sodium 75 MCG TABLET PO (06:33)
[2023-08-12 07:02] VITALS: BP 107/51; PULSE 65; RESP 20; TEMP 36.5; O2SAT 95
[2023-08-12 07:33] LABS: Glucose, Whole Blood 102 mg/dL (60-115)
[2023-08-12 07:48] LABS: Anion Gap 13 (12-20); Blood Urea Nitrogen 13 mg/dL (9-16); Calcium 10.1 mg/dL (8.4-10.2); Carbon Dioxide 25 mmol/L (22-29); Chloride 105 mmol/L (96-108); Creatinine Clr Calc Pharmacy 34.5; Estimated Glomerular Filt Rate 38; Glucose Random 108 mg/dL (60-115); Magnesium 1.7 mg/dL (1.6-2.6); Potassium 4.4 mmol/L (3.3-5.1); Sodium 139 mmol/L (135-145)
[2023-08-12] MEDS: Cyanocobalamin (Vitamin B-12) 1,000 MCG TABLET 1000 MCG PO (08:00)
[2023-08-12] MEDS: Magnesium Oxide 400 MG TABLET PO (08:00)
[2023-08-12] MEDS: 0.9 % Sodium Chloride Flush 3 ML SYRINGE IVFLUSH (08:01)
[2023-08-12] MEDS: Cinacalcet HCl 30 MG TABLET PO (08:01)
[2023-08-12] MEDS: Cholecalciferol (Vitamin D3) 25 MCG TABLET PO (08:01)
[2023-08-12] MEDS: Atorvastatin Calcium 20 MG TABLET PO (08:01)
--- NOTE | 2023-08-12 09:16 | P.DS_ITS ---
DS: Providers Provider Date of Service: 08/12/23 Date of admission: 08/08/23 13:55 Primary care physician: Carmita Dietz CNP Consults: 08/08/23 14:11 Consult to Pulmonology Routine Consulting Provider: [facility] Pulmonology Services Reason for consultation: CT with suspicious left lower lobe mass, ?outpatient biopsy DS: Diagnosis Discharge Diagnosis (1) Mass of left lung: Status: Acute (2) Hypomagnesemia: Status: Acute (3) Elevated lipase: Status: Acute DS: Summary Hospital Course Hospital Course: History and physical as per admitting provider. Pt is a 77-year-old female with a PMH significant for?HTN, HLD, AV block, pacemaker, pmi-huxhssh-txyebguhg diabetes type 2, GERD, hiatal hernia, and hypothyroidism who presents to the ED for evaluation of nausea and chest pain/pressure. Patient recently presented to the ED 5 days prior on 08/02 for evaluation of difficulty swallowing and found to have supraglottitis. Was transferred to [facility] where she was treated with IV steroids and Benadryl; supraglottitis was thought to be secondary to benazepril which was stopped. Patient reports she initially felt well upon discharge on Thursday 08/03. On Saturday felt tired, and Saturday developed dizziness and nausea with no vomiting, last night nausea increased and patient felt ?jittery?. Also experienced substernal pain/pressure that felt like a band wrapping around her entire torso and radiated up sternum. Reports last night area was tender to the touch. Denies fever, chills, diarrhea. No vomiting. Denies shortness of breath. Of note, patient does report possible evidence of FAINA during last admission to [facility]. In the ED pt was afebrile but tachycardic up to 115 and slightly hypertensive up to 157/80. Labs were significant for leukocytosis 16.5, magnesium 1.0, and lipase 450. stable H&H. Initial troponin 8.4 with repeat 13.0. Tested negative for COVID, RSV, flu. CXR was unremarkable. CT?of a bd/pelvis showed suspicious mass in the left lower lobe and bilateral renal simple and complex cysts. No evidence of biliary ductal dilation and unremarkable pancreas. Pt was treated with ondansetron, Mag sulfate, and IVF. Pt will be admitted to the hospital for treatment and further evaluation of elevated lipase likely in the setting gastritis. 77-year-old woman treated for epigastric pain secondary to gastritis/GERD possibly mild pancreatitis with mildly elevated lipase but no definitive abdominal CT evidence. She was treated with IV PPI then transitioned to oral Prilosec, aspirin was held, diet was advanced during hospitalization. During this time she also experienced hypomagnesemia with lowest reading of 1.0. Patient was repleted with IV and oral magnesium and continued to be low for several days. It was found to be likely related to ppi, this was stopped. Patient was given more IV magnesium and oral magnesium twice daily and magnesium is now at an acceptable limit of 1.7. Patient will go home with 400 mg twice daily, she will check her magnesium in 2 days. She has a follow-up appointment with her primary care provider on and it can be discussed at that time whether she will continue to take magnesium. She also had an abdominal CT scan with incidental finding of 2 cm left lower lobe mass. She was seen and evaluated by pulmonology. Plan is for outpatient workup with PET scan, depending on results possible biopsy. Discussed the plan with patient, her and her daughter, all are in agreement for discharge home today with in home physical therapy.. Elevated troponin. Repeat cardiac enzymes remained flat. EKG without ischemic changes. No further workup necessary Leukocytosis. Likely secondary to recent steroid use, trended down. No nasreen dence of infection. No indication for antibiotics during hospitalization. Self-reported nocturnal hypoxia., unable to complete sleep study during hospitalization but patient should follow-up with primary care provider for scheduling of sleep study Hypertension. Continue amlodipine, spironolactone Jgw-wfixnke-tpaiotise diabetes type 2. Continue home medications Hypothyroidism. Continue levothyroxine GERD. Ppi stopped due to hypomagnesemia. May continue Pepcid Time Attestation Discharge Coordination Time (in mins): 46 Quality: Safe Use of Opioids Does Pt have an Active Cancer Diagnosis on the Problem List?: No Quality: Stroke Does the patient have a stroke diagnosis?: No Physical Exam Vital Signs: Vital Signs: Last Vital Signs Temp 97.7 F 08/12/23 07:02 Pulse 65 08/12/23 07:02 Resp 20 08/12/23 07:02 BP 107/51 L 08/12/23 07:02 Pulse Ox 95 08/12/23 07:02 O2 Del Method Nasal Cannula 08/12/23 07:02 O2 Flow Rate 2 08/12/23 07:02 BMI result Body Mass Index 37.5 Appearing in no acute distress lungs normal expansion heart regular rate rhythm, clear S1, S2 positive bowel sounds, abdomen is soft, nontender neuro patient is alert x3, no focal deficits DS: Data Data Completed and Pending Labs on day of discharge: Laboratory Results - last 24 hr 08/11/23 08/11/23 08/11/23 10:24 10:48 13:17 Hold Purple Top SEE NOTE Sodium Potassium Chloride Carbon Dioxide Anion Gap BUN Creatinine Estim Creat Clear Calc Estimated GFR POC Glucose 129 H Random Glucose Calcium Magnesium 3.8 H* 2.2 08/11/23 08/11/23 08/12/23 15:15 19:37 07:01 Hold Purple Top SEE NOTE Sodium 139 Potassium 4.4 Chloride 105 Carbon Dioxide 25 Anion Gap 13 BUN 13 Creatinine 1.35 Estim Creat Clear Calc 34.5 Estimated GFR 38 POC Glucose 141 H 126 H Random Glucose 108 Calcium 10.1 Magnesium 1.7 08/12/23 07:04 Hold Purple Top Sodium Potassium Chloride Carbon Dioxide Anion Gap BUN Creatinine Estim Creat Clear Calc Estimated GFR POC Glucose 102 Random Glucose Calcium Magnesium Discharge Plan Discharge Anticipated Discharge Date/Time: 08/12/23 09:04 Patient Disposition: Home Health Service Discharge Diagnosis: Hypomagnesemia Gastritis/GERD Referrals: Kirill Tamez MD [Physician] - 1 Week Carmita Dietz CNP [Primary Care Provider] - 1 Week Discharge Medications: New magnesium oxide 400 mg (241.3 mg magnesium) Tablet 400 mg PO BIDPC Qty: 30 0RF Continued levothyroxine 75 mcg tablet 75 mcg PO DAILY@0600 spironolactone 25 mg tablet 25 mg PO DAILY famotidine 20 mg tablet 20 mg PO DAILY amlodipine 10 mg tablet 10 mg PO DAILY nystatin [Nystop] 100,000 unit/gram powder 1 appl TOPICAL BID PRN (Reason: Rash) cyanocobalamin (vitamin B-12) [Vitamin B-12] 1,000 mcg Tablet 1,000 mcg PO DAILY biotin 5 mg Tablet 5 mg PO DAILY aspirin [Adult Low Dose Aspirin] 81 mg tablet,delayed release (DR/EC) 81 mg PO DAILY acetaminophen [Tylenol Extra Strength] 500 mg tablet 500 mg PO Q6H PRN (Reason: Pain) metformin 500 mg tablet 500 mg PO DAILY@1700 cholecalciferol (vitamin D3) 25 mcg (1,000 unit) capsule 25 mcg PO DAILY Rx Instructions: four times a week rosuvastatin 5 mg tablet 5 mg PO DAILY cinacalcet 30 mg tablet 30 mg PO DAILY Qty: 30 5RF Discontinued pantoprazole 40 mg tablet,delayed release (DR/EC) 40 mg PO DAILY@1700 Discharge Orders: Discharge Order (Routine); Ordered 08/12/23 Ordered By: Annie Gerber Diet: Advance to usual diet Activity on Discharge: As tolerated Stand Alone Forms: Patient Portal Discharge page Other Ambulatory Orders: Magnesium (Routine) Timeframe: [id number] Facility: [facility] - Location: Laboratory Ordered By: Annie Gerber Care Plan Goals: -Check magnesium level in 2 days -Take magnesium 400mg twice daily and follow lab results with primary care provider for titration if needed -Do not take Corbin inhibitor medication as it cause an adverse reaction of angioedema. continue taking amlodipine 10 mg daily -Check Blood pressure daily and document to share with your primary care provider for medication titration if needed Health Concerns: Hypomagnesemia Gastritis/GERD Plan of Treatment: Follow-up with primary care provider at next scheduled appointment Follow-up with principal software engineer for scheduled appointment Take all medications as prescribed Assessment: See discharge summary
[2023-08-12 10:52] VITALS: PULSE 109; O2SAT 97
[2023-08-12 11:04] LABS: Glucose, Whole Blood 91 mg/dL (60-115)
--- NOTE | 2023-08-12 11:19 | W.MHC.F2F ---
Service Date Service Date: 08/12/23 Encounter Date of encounter: 08/12/23 Reasons for Services Signs and symptoms assessed: Epigastric pain, GERD, gastritis Hypomagnesemia Reason for senior care: CV/CP assess and/or care Reason for physical therapy: home safety and mobility Homebound: Leaving the home is medically contraindicated at this time without the asist of a device and/or another person due th the listed conditions above and below. Reason homebound: unsteady gait / fall risk and other (weakness from hospital stay ) Certification: Based on the above findings, I certify that this patient is confined to the home and needs intermittent senior care care, physical therapy and/or speech therapy, or continues to need occupational therapy. The patient is under my care, and I have initiated the establishment of the plan of care. The patient will be followed by a physician who will periodically review the plan of care. Time Spent With Patient Time: Total time managing care of this patient today ____ minutes.
--- NOTE | 2023-08-12 14:00 | MHC.CM.PN ---
IMM 08/12/23, pt has been medically cleared for DC, she will go home via private transport, and will have home care services from [facility].
--- NOTE | 2023-08-13 14:52 | P.CDIM_ITS ---
PROVIDER RESPONSE TEXT: To clarify, the appropriate diagnosis supported by the clinical indicators: Acute on chronic QUERY TEXT: PHYSICIAN'S DOCUMENTATION REQUEST Date of Query: 08/12/2023 10:04 AM EDT Patient Name: Annetta Fishman Admit Date: 08/08/2023 Dear Annie Gerber, A review of the medical record indicates additional documentation may be needed. Please review below and update the documentation accordingly. Clinical Indicators: Progress notes under Plan: Epigastric pain secondary to gastritis/acid reflux vs. mild pancreatitis s/p IV Protonix, hold aspirin. Clarify which of the following accurately represents the acuity of the gastritis: Acute Acute on chronic Other (explain) Clinically unable to determine (explain) Thank you, Amirah Marks, CCS, CDIS Use of terms such as suspected, likely, concern for, or probable (associated with a specific diagnosi s that is being evaluated, monitored, or treated as if it exists) are acceptable and can be coded in the inpatient se tting, when documented at the time of discharge. Please use your independent medical judgment in providing your response. THIS QUERY IS PART OF THE PERMANENT MEDICAL RECORD
--- NOTE | 2023-08-13 14:52 | P.CDIM_ITS ---
PROVIDER RESPONSE TEXT: To clarify, the appropriate diagnosis supported by the clinical indicators: Acute on chronic QUERY TEXT: PHYSICIAN'S DOCUMENTATION REQUEST Date of Query: 08/13/2023 08:05 AM EDT Patient Name: Annetta Fishman Admit Date: 08/08/2023 Dear Annie Gerber, RETROSPECTIVE QUERY A review of the medical record indicates additional documentation may be needed. Please review below and update the documentation accordingly. Clinical Indicators: Progress notes under the Plan: Epigastric pain secondary to gastritis/acid reflux vs. mild pancreatit is. Discharge summary 08/11: Patient will be admitted to the hospital for treatment and further evaluation of elevated lipase likely in the setting of gastritis. Clarify which of the following accurately represents the acuity of the gastritis: Acute Acute on chronic Other (explain) Clinically unable to determine (explain) Thank you, Amirah Marks, CCS, CDIS Use of terms such as suspected, likely, concern for, or probable (associated with a specific diagnosi s that is being evaluated, monitored, or treated as if it exists) are acceptable and can be coded in the inpatient se tting, when documented at the time of discharge. Please use your independent medical judgment in providing your response. THIS QUERY IS PART OF THE PERMANENT MEDICAL RECORD
== END 2023-08-12 14:16 | disposition home health service (06) | DRG 391 ==
LOC: HO.ED 08-08 10:21 → HO.EDOVER 08-08 14:35 → HO.IMC 08-09 00:45
PROVIDERS: Hospitalist; Physician Assistant; Physician Assistant Medical; Admitting Provider Student in an Organized Health Care Education/Training Program; Emergency Provider Emergency Medicine; PCP Nurse Practitioner Primary Care; Visit Provider Nurse Practitioner Acute Care
DX: K29.00 Acute gastritis without bleeding (principal); K85.90 Acute pancreatitis without necrosis or infection, unspecified; K29.50 Unspecified chronic gastritis without bleeding; E83.42 Hypomagnesemia; E03.9 Hypothyroidism, unspecified; Z95.0 Presence of cardiac pacemaker; E11.9 Type 2 diabetes mellitus without complications; R91.8 Other nonspecific abnormal finding of lung field; G47.33 Obstructive sleep apnea (adult) (pediatric); K21.9 Gastro-esophageal reflux disease without esophagitis; I10 Essential (primary) hypertension; Z20.822 Contact with and (suspected) exposure to COVID-19; Z79.82 Long term (current) use of aspirin; Z79.84 Long term (current) use of oral hypoglycemic drugs; Z79.890 Hormone replacement therapy; Z79.899 Other long term (current) drug therapy
CPT/HCPCS: 0241U; 36415; 71046; 71250; 74176; 80048; 80076; 82947; 83690; 83735; 84443; 84484; 85025; 93005; 97162; 99285; C9113; J2405; J3475

== ENCOUNTER → 2023-08-07 19:20 | Outpatient (BNV) | payer MEDICARE, SELFPAY | PROVIDERS: Admitting Provider Student in an Organized Health Care Education/Training Program; Emergency Provider Emergency Medicine; PCP Nurse Practitioner Primary Care; Visit Provider Internal Medicine Cardiovascular Disease | DX: I44.39 Other atrioventricular block (principal) | CPT/HCPCS: 93010 ==

== ENCOUNTER → 2023-08-07 23:59 | Outpatient (BNV) | payer MEDICARE, SELFPAY ==
--- NOTE | 2023-08-14 12:38 | A.OFFVIS_ITS ---
Intake Intake Visit Reasons: Remote Device Check- [employer] Allergies EMELIA Inhibitors Adverse Reaction (Severe, Verified 08/12/23 09:08) Angioedema PFSH Medical History AV block Type 2 diabetes mellitus with unspecified complications Pacemaker Hypercholesteremia GERD (gastroesophageal reflux disease) Hypothyroid Hypertension Surgical History History of tonsillectomy H/O total knee replacement H/O: hysterectomy Hx of cholecystectomy Family History Mother HTN (hypertension) Heart attack Father No problems noted. Maternal Grandmother Breast cancer Social History Household Members: Spouse Housing: House Do you presently have visiting nurse or other home services: No Alcohol intake: current Alcohol intake frequency: holidays/special occasions only Patient Tobacco Use Status: Never used Tobacco service: No Office Procedures Cardiac Device Check Cardiac Device Check Details: Date of service- 08/07/2023 ; Battery life 5 months; normal lead parameters; LABOR CREW SUPERVISOR >99%; no significant arrhythmias. Overall normal device function. [id number] Cardiac Device Interrogation, pacemaker Procedure code (CPT) selection complete Assessment & Plan Assessment & Plan (1) AV block: Code(s): I44.30 - Unspecified atrioventricular block Plan x Coding Level of Care Code Procedure Only Diagnoses AV block I44.30 CPT Codes Cardiac Device Check - Cardiac Device 12: [id number] Cardiac Device Interrogation, pacemaker ([id number])
== END ==
PROVIDERS: PCP Nurse Practitioner Primary Care; Visit Provider Internal Medicine
DX: I44.30 Unspecified atrioventricular block (principal); Z95.0 Presence of cardiac pacemaker
CPT/HCPCS: 93294

== ENCOUNTER → 2023-08-08 13:55 | Outpatient (BNV) | payer MEDICARE, SELFPAY | PROVIDERS: Admitting Provider Student in an Organized Health Care Education/Training Program; Emergency Provider Emergency Medicine; PCP Nurse Practitioner Primary Care; Visit Provider Internal Medicine Pulmonary Disease | DX: R91.8 Other nonspecific abnormal finding of lung field (principal) | CPT/HCPCS: 99222 ==

== ENCOUNTER → 2023-08-08 13:55 | Outpatient (BNV) | payer MEDICARE, SELFPAY | PROVIDERS: Admitting Provider Student in an Organized Health Care Education/Training Program; Emergency Provider Emergency Medicine; PCP Nurse Practitioner Primary Care; Visit Provider Student in an Organized Health Care Education/Training Program | DX: E83.42 Hypomagnesemia (principal); R74.8 Abnormal levels of other serum enzymes | CPT/HCPCS: 99223; 99232; 99239; G0180 ==

== ENCOUNTER 2023-08-14 09:18 | Outpatient (REF) | payer MEDICARE, SELFPAY ==
[2023-08-14 12:33] LABS: Magnesium 1.3 mg/dL (1.6-2.6)
== END 2023-08-14 09:19 | disposition home or self-care (01) ==
LOC: HO.LAB 09:18
PROVIDERS: PCP Nurse Practitioner Primary Care; Visit Provider Nurse Practitioner Acute Care
DX: E83.42 Hypomagnesemia (principal)
CPT/HCPCS: 36415; 83735

== ENCOUNTER 2023-08-17 09:17 | Outpatient (REF) | payer MEDICARE, SELFPAY ==
[2023-08-17 11:16] LABS: Anion Gap 12 (12-20); Blood Urea Nitrogen 34 mg/dL (9-16); Calcium 10.7 mg/dL (8.4-10.2); Carbon Dioxide 27 mmol/L (22-29); Chloride 103 mmol/L (96-108); Estimated Glomerular Filt Rate 35; Glucose Random 88 mg/dL (60-115); Lipase 34 U/L (8-78); Magnesium 1.9 mg/dL (1.6-2.6); Potassium 4.5 mmol/L (3.3-5.1); Sodium 137 mmol/L (135-145)
== END 2023-08-17 09:18 | disposition home or self-care (01) ==
LOC: HO.LAB 09:17
PROVIDERS: PCP Nurse Practitioner Primary Care; Visit Provider Nurse Practitioner Primary Care
DX: E83.42 Hypomagnesemia (principal)
CPT/HCPCS: 36415; 80048; 83690; 83735

== ENCOUNTER 2023-08-27 12:00 | Outpatient (REF) | payer MEDICARE, SELFPAY ==
--- NOTE | ~2023-08-27 | PE_ITS ---
EXAMINATION: Fluorine-18 FDG PET/CT Scan CLINICAL INDICATION: Initial treatment management. Abnormal finding of lung field-mass of left lung. PROCEDURE: 60 minutes following the intravenous administration of 22.1 mCi of fluorine 18 FDG, images from the base of the skull to the mid thighs were obtained using a combined PET/CT scanner with CT scan based attenuation correction. No oral contrast was administered. No intravenous contrast was administered. Transverse, coronal, sagittal, and volume reconstruction projections were obtained. The patient's blood glucose as determined by a finger stick, was 95 mg/dl immediately prior to injection. Total CT exam dose-length product 908.63 mGy-cm * These CT images were obtained using dose optimization techniques as appropriate, variously including the following: Automated exposure control * Adjustment of mA and/or kV according to patient size (this includes techniques or standardized protocols for targeted exams where dose is matched to indication/reason for exam; i.e. extremities or head) * Use of iterative reconstruction technique COMPARISON: No previous PET/CT scan is available for comparison. CT scans of the chest, abdomen, and pelvis dated 08/08/2023 are available for comparison. FINDINGS: (Slice numbers described in this report are numbered superiorly to inferiorly with slice #1 in the head) NECK AND VISUALIZED HEAD: No foci of abnormal FDG activity are noted. The distribution of FDG activity is physiological. There is no cervical lymphadenopathy. THORAX: There is a posterior subpleural left lower lobe pulmonary nodule present measuring 2.4 x 1.7 cm in largest transverse dimensions, and approximately 1.5 cm cephalocaudad. This does not show abnormal FDG activity, but a focus of scarring or atelectasis extending superiorly from the mass shows mild FDG activity, SUVmax 2.7, slice 91/223. The CT appearance is not significantly changed from the recent 08/08/[address] scan. No additional suspicious pulmonary nodules are visualized. There is mild dependent bibasilar atelectasis more prominently on the right with no associated abnormal FDG activity. There is no pleural or pericardial fluid, or pneumothorax. There is no mediastinal, supraclavicular, or axillary lymphadenopathy. A a left chest pacemaker and associated leads are noted. ABDOMEN AND PELVIS: There is a discrete focus of increased FDG activity present in the posterior wall of the inferior aspect of the rectum, showing SUVmax 8.7, slice 208/223. This appears to be associated with some soft tissue thickening at this site on the corresponding CT images. There is additional FDG activity of varying intensities present throughout the gastrointestinal tract, with the most intense activity in the rectosigmoid colon, but none of the other foci appear to have corresponding soft tissue thickening. This other activity is likely physiological. There are no additional suspicious foci of abnormal FDG activity in the abdomen or pelvis. The liver and spleen are unremarkable. The gallbladder has been resected and there are metallic surgical clips in the gallbladder bed. Bilateral hypodense renal cysts are present, and these are FDG photopenic and unchanged in appearance from the 08/08/[address] scan and likely represent simple cysts. The kidneys are otherwise unremarkable. The adrenal glands and pancreas are unremarkable. There is no retroperitoneal, mesenteric, pelvic or inguinal lymphadenopathy. The patient is status post hysterectomy. The pelvic organs are otherwise unremarkable. MUSCULOSKELETAL: There are no foci of abnormal FDG activity in the osseous structures. There are degenerative changes in the spine. There is a grade 1 anterolisthesis of L4 on L5. No suspicious sclerotic or lytic lesions are visualized. VASCULAR: Diffuse vascular calcifications including coronary are noted. Reference SUVmax Levels: Mediastinal Blood Pool: 2.2, Slice 72/223 Liver: 3.7, Slice 98/223 PET/PET CT fusion skull to thigh IMPRESSION: 1. A left lower lobe pulmonary nodule is present, unchanged in appearance from the recent 08/08/[address] scan. This does not show definite abnormal FDG activity except for a focus of atelectasis or possibly a spiculations extending superiorly which shows mild FDG activity. The absence of significantly increased FDG activity within the nodule suggests a benign etiology, but because of the suspicious CT appearance as well as the FDG avid spiculation, if biopsy of this is not obtained, short-term follow-up with diagnostic CT imaging in approximately one month is recommended to determine stability. 2. An FDG avid focus of soft tissue thickening in the inferior rectum is suspicious for malignancy. Further characterization of this with direct visualization via colonoscopy is recommended. 3. No additional abnormalities suspicious for metastatic or other malignant lesions are noted. 4. Vascular calcifications including coronary.
== END 2023-08-27 12:01 | disposition home or self-care (01) ==
LOC: HO.PET 12:00
PROVIDERS: PCP Nurse Practitioner Primary Care; Visit Provider Internal Medicine Pulmonary Disease
DX: Z13.89 Encounter for screening for other disorder (principal)

== ENCOUNTER 2023-09-03 10:10 | Outpatient (AMB) | payer MEDICARE, SELFPAY ==
[2023-09-03 10:21] VITALS: BP 118/66; PULSE 97; O2SAT 97; BMI 35.8
--- NOTE | 2023-09-03 10:21 | A.OFFVIS_ITS ---
Vital Signs 09/03/23 10:21 Height 5 ft 2 in Weight 196 lb BMI 35.8 BP 118/66 Blood Pressure Location Rt brachial Position Sitting Pulse 97 Pulse Source Doppler Pulse Oximetry (%) 97 Oxygen Delivery Method Room Air Intake Visit Reasons: s/p hospital follow up Allergies EMELIA Inhibitors Adverse Reaction (Severe, Verified 09/03/23 10:26) Angioedema HPI HPI s/p hospital follow up: Details: 77-year-old lady, lifetime nonsmoker, with no family history of lung disease, but family history of breast cancer recently admitted and treated for pancreatitis. On CT abdomen obtain to evaluate abdominal pain left basilar pulmonary nodule noted. Dedicated CT chest did not demonstrate any other nodules. Patient denies unintended weight loss. since admission she had an outpatient PET CT that did not demonstrate significant FDG uptake in the previously noted nodule, but has some Mild peripheral uptake and also FDG uptake in the rectum. [facility] Medical History (Updated 09/03/23 @ 11:06 by Kirill Tamez MD) Elevated lipase Mass of left lung AV block Type 2 diabetes mellitus with unspecified complications Pacemaker Hypercholesteremia GERD (gastroesophageal reflux disease) Hypothyroid Hypertension Surgical History History of tonsillectomy H/O total knee replacement H/O: hysterectomy Hx of cholecystectomy Family History Mother HTN (hypertension) Heart attack Father No problems noted. Maternal Grandmother Breast cancer Social History Household Members: Spouse Housing: House Do you presently have visiting nurse or other home services: No Alcohol intake: current Alcohol intake frequency: holidays/special occasions only Patient Tobacco Use Status: Never used Tobacco service: No Review of Systems Const Denies daytime sleepiness, Denies excessive sweating, Denies fatigue, Denies fever(s), Denies lethargy, Denies malaise, Denies night sweats, Denies snoring and Denies weight loss Eyes Denies blurry vision and Denies itchy eyes ENT Denies nasal congestion, Denies post nasal drip, Denies sinus pain, Denies sinus pressure and Denies other ( Thrush) Card Denies chest pain, Denies pedal edema, Denies dyspnea, Denies orthopnea and Denies paroxysmal nocturnal dyspnea Resp Denies cough, Denies hemoptysis, Denies excessive phlegm production, Denies dyspnea, Denies snoring and Denies wheezing GI Denies abdominal pain and Denies heartburn Musc Denies myalgias, Denies arthralgias and Denies joint swelling Skin/Breast Denies rash Neuro Denies memory loss and Denies seizure-like activity Psych Denies abnormal sleep pattern, Denies anxiety and Denies memory loss Endo Denies excessive sweating, Denies fatigue and Denies heat intolerance Abe/Lymph Denies easy bruising Aller/Immun Denies itchy eyes, Denies seasonal rhinorrhea and Denies wheezing Physical Exam Vital Signs: Last Vital Signs Pulse 97 09/03/23 10:21 BP 118/66 09/03/23 10:21 Pulse Ox 97 09/03/23 10:21 Oxygen Delivery Method Room Air 09/03/23 10:21 BMI result Body Mass Index 35.8 Const General: no acute distress and alert Nutritional Appearance: obese Orientation/consciousness: Other orientation findings ( oriented) HEENT Head: Yes atraumatic Eyes General: appearance normal, both eyes and all related structures Sclerae: sclerae normal EOM: EOMs intact bilaterally Neck Neck: Yes supple Lymphatic: no lymphadenopathy noted Resp Effort & Inspection: normal respiratory effort and no use of accessory muscles Auscultation: clear to auscultation bilaterally Cardio Rate: regular rate Rhythm: regular rhythm Heart sounds: no gallops, no murmurs and no rubs Skin General skin exam: other ( warm) Extrem General: No clubbing, No cyanosis and No edema Assessment & Plan Assessment & Plan (1) Pulmonary nodule 1 cm or greater in diameter: Code(s): R91.1 - Solitary pulmonary nodule Category: Medical Plan: No FDG uptake in the nodule and options for further imaging follow-up, immediate biopsy, and immediate referral to thoracic surgery discussed with the patient. Will proceed with the imaging follow-up with CT scan in [address] ordered. (2) Rectal mass: Code(s): K62.89 - Other specified diseases of anus and rectum Category: Medical Plan: FDG uptake noted in rectum findings forward to patient's senior marketing coordinator Dr. Mercado. Orders: Orders CT chest wo IV con 10/26/23 R91.1 - Solitary pulmonary nodule
== END 2023-09-03 10:39 | disposition home or self-care (01) ==
PROVIDERS: PCP Nurse Practitioner Primary Care; Visit Provider Internal Medicine Pulmonary Disease
DX: R91.1 Solitary pulmonary nodule (principal); K62.89 Other specified diseases of anus and rectum
CPT/HCPCS: 99214

== ENCOUNTER → 2023-09-03 10:10 | Outpatient (BNVA) | payer MEDICARE, SELFPAY | PROVIDERS: PCP Nurse Practitioner Primary Care; Visit Provider Internal Medicine Pulmonary Disease | DX: R91.1 Solitary pulmonary nodule (principal); K62.89 Other specified diseases of anus and rectum | CPT/HCPCS: 99212 ==

== ENCOUNTER 2023-09-04 08:30 | Outpatient (REF) | payer MEDICARE, SELFPAY ==
[2023-09-04 09:39] LABS: Magnesium 1.9 mg/dL (1.6-2.6)
== END 2023-09-04 08:31 | disposition home or self-care (01) ==
LOC: HO.LAB 08:30
PROVIDERS: PCP Nurse Practitioner Primary Care; Visit Provider Nurse Practitioner Primary Care
DX: E21.3 Hyperparathyroidism, unspecified (principal); E03.9 Hypothyroidism, unspecified; I10 Essential (primary) hypertension
CPT/HCPCS: 36415; 83735

== ENCOUNTER 2023-09-19 08:11 | Outpatient (REF) | payer MEDICARE, SELFPAY ==
[2023-09-19 09:29] LABS: Magnesium 1.4 mg/dL (1.6-2.6)
== END 2023-09-19 08:12 | disposition home or self-care (01) ==
LOC: HO.LABR 08:11
PROVIDERS: PCP Nurse Practitioner Primary Care; Visit Provider Nurse Practitioner Primary Care
DX: E21.3 Hyperparathyroidism, unspecified (principal); E03.9 Hypothyroidism, unspecified; I10 Essential (primary) hypertension
CPT/HCPCS: 36415; 83735

== ENCOUNTER 2023-09-23 12:04 | Outpatient (REF) | payer MEDICARE, SELFPAY ==
[2023-09-23 16:13] LABS: Anion Gap 15 (12-20); Blood Urea Nitrogen 19 mg/dL (9-16); Calcium 11.3 mg/dL (8.4-10.2); Carbon Dioxide 24 mmol/L (22-29); Chloride 107 mmol/L (96-108); Estimated Glomerular Filt Rate 38; Glucose Random 132 mg/dL (60-115); Magnesium 1.9 mg/dL (1.6-2.6); Phosphorus 2.9 mg/dL (2.7-4.5); Sodium 142 mmol/L (135-145)
[2023-09-23 16:16] LABS: Parathyroid Hormone Intact 191.7 pg/mL (8.7-77.1)
== END 2023-09-23 12:05 | disposition home or self-care (01) ==
LOC: HO.LAB 12:04
PROVIDERS: PCP Nurse Practitioner Primary Care; Visit Provider Internal Medicine Hypertension Specialist
DX: N18.9 Chronic kidney disease, unspecified (principal); E83.52 Hypercalcemia
CPT/HCPCS: 36415; 80048; 83735; 83970; 84100; 93005; 99212

== ENCOUNTER → 2023-09-23 12:04 | Outpatient (AMB) | payer MEDICARE, SELFPAY ==
[2023-09-23 12:07] VITALS: BP 128/78; PULSE 112; O2SAT 95; BMI 34.9
--- NOTE | 2023-09-23 12:07 | HO.NEPHOV ---
Vital Signs 09/23/23 12:07 Height 5 ft 2 in Weight 191 lb BMI 34.9 BP 128/78 Blood Pressure Location Lt brachial Position Sitting Pulse 112 H Pulse Source Pulse Oximeter Pulse Oximetry (%) 95 Oxygen Delivery Method Room Air Intake Visit Reasons: Pt req sooner appt/recent hospital stay [facility] Concierge Manager Required: No Accompanied by: Daughter Allergies CORBIN Inhibitors Adverse Reaction (Severe, Verified 09/23/23 12:10) Angioedema HPI Comments Details: Elderly woman with a history of CKD in a setting of longstanding hypertension and diabetes mellitus. Recently she had an episode of gout. This was treated with prednisone. No uric acid levels are available. She has persistent hypercalcemia 09/23/23 Recently she had an episode of vertigo She was seen in the ER. Subsequently she was found to have swelling in the epiglottis area. This was thought to be angioedema due to CORBIN inhibitor. Benazepril was discontinued. Swelling is resolved. She was having nausea and epigastric discomfort and was readmitted to [facility] she was initially diagnosed with pancreatitis. She had persistent hypomagnesemia. Proton pump inhibitor was discontinued. She is on magnesium supplementation. Over the last few days she thought the nausea was related to the cinacalcet. She is stopped cinacalcet 2 days ago and the nausea has improved. During the workup she was found to have a lung nodule. She is being followed by Dr. 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 Maternal Grandmother Breast cancer Social History Household Members: Spouse Housing: House Do you presently have visiting nurse or other home services: No Alcohol intake: current Alcohol intake frequency: holidays/special occasions only Patient Tobacco Use Status: Never used Tobacco service: No Physical Exam Vital Signs: Last Vital Signs Pulse 112 H 09/23/23 12:07 BP 128/78 09/23/23 12:07 Pulse Ox 95 09/23/23 12:07 Oxygen Delivery Method Room Air 09/23/23 12:07 BMI result Body Mass Index 34.9 Const General: comfortable; No acute distress Orientation/consciousness: patient oriented x3 Eyes General: appearance normal, both eyes and all related structures Visual Rosenberg: normal visual rosenberg by confrontation Neck Neck: Yes supple and Yes no JVD Resp Effort & Inspection: normal respiratory effort and respiratory effort not decreased Auscultation: rhonchi Cardio Palpation: no palpable S3 and no palpable S4 Heart sounds: no rubs GI Inspection: Yes normal to inspection Palpation (GI): Soft to palpation Percussion: Yes normal to percussion Auscultation: normal bowel sounds General: Yes no CVA tenderness Back/Spine/Pelvis Back: no CVA tenderness Skin General skin exam: no petechiae and no purpura Neuro General: patient oriented x3 and no focal motor deficits Extrem General: No clubbing and Yes edema Results Reviewed Nephrology Results: Hgb 10.8 g/dl (12.0-16.0) L 08/09/23 WBC 11.8 X10*3/uL (4.8-10.8) H 08/09/23 Plt Count 165 X10*3/uL (160-400) 08/09/23 Sodium 137 mmol/L (135-145) 08/17/23 Potassium 4.5 mmol/L (3.3-5.1) 08/17/23 Chloride 103 mmol/L (96-108) 08/17/23 Carbon Dioxide 27 mmol/L (22-29) 08/17/23 BUN 34 mg/dL (9-16) H 08/17/23 Creatinine 1.43 mg/dL (0.5-1.4) H 08/17/23 Calcium 10.7 mg/dL (8.4-10.2) H 08/17/23 Assessment & Plan Assessment & Plan (1) CKD (chronic kidney disease): Code(s): N18.9 - Chronic kidney disease, unspecified Category: Medical Plan: CKD in a setting of hypertension diabetes mellitus. She has stage IIIB CKD. Creatinine is improved from 1.8 down to 1.33 as of June 2023. Repeat creatinine was 1.48. Goal is to slow the portion disease. Maintain A1c less than 7% and blood pressure less than 130/80 Continue overt nephrotoxic agents. She will benefit from SGLT2 inhibitors. Swelling epiglottis may very well be due to Corbin inhibitors. She has been on CORBIN inhibitors for 20 years. However given the circumstances I will avoid using CORBIN inhibitors. Leg edema use due to high dose of amlodipine. However blood pressure is well controlled therefore we will continue the current dose. Leg elevation at night we will be beneficial (2) Essential hypertension: Code(s): I10 - Essential (primary) hypertension Category: Medical Plan: Blood pressure is well controlled No changes were made to medications low-salt diet (3) Hypercalcemia: Code(s): E83.52 - Hypercalcemia Category: Medical Plan: h/o hypercalcemia with elevated PTH suggestive of primary hyperparathyroidism. Hypomagnesemia. This may be due to the combination of using proton pump inhibitor and cinacalcet.. Since she has not tolerating cinacalcet I will discontinue cinacalcet. Ordered serum calcium and parathyroid hormone levels today. For now we will continue the magnesium supplementation and we can gradually start tapering the supplement tell dose. . Orders: Orders Phosphorus Today E83.52 - Hypercalcemia, N18.9 - Chronic kidney disease, unspecified Magnesium Today E83.52 - Hypercalcemia, N18.9 - Chronic kidney disease, unspecified Basic Metabolic Panel Today E83.52 - Hypercalcemia, N18.9 - Chronic kidney disease, unspecified Parathyroid Hormone Intact Today E83.52 - Hypercalcemia, N18.9 - Chronic kidney disease, unspecified Medications: Discontinued cinacalcet Discontinued Reason: Doctor's Order 30 mg PO DAILY 30 tabs 5RF Coding Level of Care Code Est Pt Level 4 (68121) Diagnoses CKD (chronic kidney disease) N18.9 Essential hypertension I10 Hypercalcemia E83.52
== END ==
PROVIDERS: PCP Nurse Practitioner Primary Care; Visit Provider Internal Medicine Hypertension Specialist
DX: I12.9 Hypertensive chronic kidney disease with stage 1 through stage 4 chronic kidney disease, or unspecified chronic kidney disease (principal); N18.32 Chronic kidney disease, stage 3b; E83.52 Hypercalcemia
CPT/HCPCS: 99214

== ENCOUNTER 2023-09-23 13:38 | Outpatient (AMB) | payer MEDICARE, SELFPAY ==
[2023-09-23 13:51] VITALS: BP 120/62; PULSE 108; BMI 34.9
--- NOTE | 2023-09-23 13:51 | A.OFFVIS_ITS ---
Vital Signs 09/23/23 13:51 Height 5 ft 2 in Weight 191 lb BMI 34.9 BP 120/62 Blood Pressure Location Lt brachial Position Sitting Pulse 108 H Pulse Source Pulse Oximeter Intake Visit Reasons: 3 mth w/ [employer] ck HS Voice Network Engineer Required: No Mechanical Intern: Mechanical Intern Present Allergies EMELIA Inhibitors Adverse Reaction (Severe, Verified 09/23/23 13:53) Angioedema Medication List - Last Reconciled 09/23/23 by VARUN Bermudez acetaminophen (Tylenol Extra Strength) 500 mg PO Q6H PRN amlodipine 10 mg PO DAILY aspirin (Adult Low Dose Aspirin) 81 mg PO DAILY biotin 5 mg PO DAILY cholecalciferol (vitamin D3) 25 mcg PO DAILY cyanocobalamin (vitamin B-12) (Vitamin B-12) 1,000 mcg PO DAILY levothyroxine 75 mcg PO DAILY@0600 magnesium oxide 400 mg PO TID metformin 500 mg PO DAILY@1700 nystatin (Nystop) 1 appl topical BID PRN prednisone mg PO PRN rosuvastatin 5 mg PO DAILY spironolactone 12.5 mg PO DAILY sucralfate 1 g PO BID HPI HPI 3 mth w/ [employer] ck HS: Details: Annetta Whitlock is a 77-year-old female with past medical history of hypertension, hyperlipidemia, diabetes, sick sinus syndrome, pacemaker since 2015 with gin change in 2013, left bundle branch block who presents for follow-up. Today she reports that since her last visit in June she has had an episode of vertigo, issues with epigastric discomfort, throat swelling from her EMELIA inhibitor and issues with low magnesium. She was taken off her EMELIA inhibitor and is now marked as an allergy on her record. She does take a magnesium supplement daily. She is going for a repeat magnesium blood draw after this visit. She has not had any recent cardiac issues. She has no chest area discomfort at rest or with activity. She has chronic shortness of breath with exertion, no PND, orthopnea or edema. No presyncope, syncope, falls. Her vertigo episode occurred once and has not reoccurred. She is taking her meds as directed. Daughter is present. [facility] Medical History Elevated lipase Mass of left lung AV block Type 2 diabetes mellitus with unspecified complications Pacemaker Hypercholesteremia GERD (gastroesophageal reflux disease) Hypothyroid Hypertension Surgical History History of tonsillectomy H/O total knee replacement H/O: hysterectomy Hx of cholecystectomy Family History Mother HTN (hypertension) Heart attack Father No problems noted. Maternal Grandmother Breast cancer Social History Household Members: Spouse Housing: House Do you presently have visiting nurse or other home services: No Alcohol intake: current Alcohol intake frequency: holidays/special occasions only Patient Tobacco Use Status: Never used Tobacco service: No Review of Systems Const All systems reviewed & are unremarkable except as noted in HPI and below ENT Denies dizziness Card Denies chest pain, Denies chest pain at rest, Denies chest pain with activity, Denies rapid heart rate, Denies pedal edema, Denies edema, Denies leg edema, Denies lightheadedness, Denies palpitations, Reports dyspnea, Reports dyspnea on exertion and Denies orthopnea Resp Denies cough, Reports dyspnea and Reports dyspnea on exertion GI Denies hematochezia and Denies change in stool character Musc Denies abnormal gait, Reports limited range of motion, Reports muscle cramps, Denies muscle weakness, Denies numbness, Denies radiating pain into limb, Denies stiffness and Denies tingling Neuro Denies abnormal gait, Denies dizziness, Denies numbness and Denies tingling Endo Denies palpitations Physical Exam Vital Signs: Last Vital Signs Pulse 108 H 09/23/23 13:51 BP 120/62 09/23/23 13:51 BMI result Body Mass Index 34.9 Office Procedures EKG Details: Medtronic dual-chamber pacemaker interrogation today shows battery 4 months, atrial threshold 0.75 volts at 0.4 milliseconds, RV threshold 1 volt at 0.4 milliseconds, DDD mode, low rate 60, no VT, no 80 or AF, V paced 99.6% of time, no alerts [id number], Complete Assessment & Plan Assessment & Plan (1) Pacemaker: Code(s): Z95.0 - Presence of cardiac pacemaker Category: Medical Plan: Medtronic dual-chamber pacemaker in place. Interrogation today shows device is functioning normally. Battery life down to 4 months. She has remote monitoring in use. Adjusted remote monitoring to send transmissions monthly. Patient informed of this and she will manually transmit every 3-4 weeks. Also will arrange for office visit with interrogation in 3 months. GEN change procedure reviewed with her. (2) Essential hypertension: Code(s): I10 - Essential (primary) hypertension Category: Medical Plan: History of hypertension. Currently well controlled with amlodipine 10 mg daily and Aldactone 12.5 mg daily. She had been on EMELIA inhibitor as well however developed signs concerning for angioedema. She was taken off the EMELAI inhibitor and has not had any recurrent issues. (3) SOB (shortness of breath): Code(s): R06.02 - Shortness of breath Category: Medical Plan: History of chronic shortness of breath with exertion. She does follow with pulmonology. She does not appear fluid overloaded on exam today. She has no reports of chest discomfort. Last echocardiogram done 06/21/2021 showed EF 50- 55%, mild diastolic dysfunction. She is pacemaker dependent, V pacing 99.6% of the time. Will check echocardiogram to ensure there is no pacemaker induced cardiomyopathy. Plan to call her with results Plan Time spent on chart review, documentation, interview and assessment Orders: Orders CA echo transthoracic complete Today R06.02 - Shortness of breath, Z95.0 - Presence of cardiac pacemaker Coding Level of Care Code Est Pt Level 3 (77069) Diagnoses Pacemaker Z95.0 Essential hypertension I10 SOB (shortness of breath) R06.02 CPT Codes EKG - CPT: 94514-[id number], Complete ([id number]) Time Spent (min) 24
== END 2023-09-23 14:25 | disposition home or self-care (01) ==
PROVIDERS: PCP Nurse Practitioner Primary Care; Visit Provider Nurse Practitioner Family
DX: I10 Essential (primary) hypertension (principal); Z95.0 Presence of cardiac pacemaker; R06.02 Shortness of breath
CPT/HCPCS: 93010; 99213

== ENCOUNTER 2023-10-02 08:07 | Outpatient (REF) | payer MEDICARE, SELFPAY ==
[2023-10-02 09:23] LABS: Anion Gap 14 (12-20); Blood Urea Nitrogen 14 mg/dL (9-16); Calcium 10.7 mg/dL (8.4-10.2); Carbon Dioxide 24 mmol/L (22-29); Chloride 109 mmol/L (96-108); Estimated Glomerular Filt Rate 51; Glucose Random 113 mg/dL (60-115); Magnesium 1.5 mg/dL (1.6-2.6); Potassium 4.1 mmol/L (3.3-5.1); Sodium 143 mmol/L (135-145)
== END 2023-10-02 08:08 | disposition home or self-care (01) ==
LOC: HO.LAB 08:07
PROVIDERS: PCP Nurse Practitioner Primary Care; Visit Provider Internal Medicine Hypertension Specialist
DX: N18.9 Chronic kidney disease, unspecified (principal); E83.52 Hypercalcemia
CPT/HCPCS: 36415; 80048; 83735

== ENCOUNTER 2023-10-03 06:13 | Day surgery (SDC) | payer MEDICARE, SELFPAY ==
[2023-10-01 14:52] VITALS: BMI 34.6
--- NOTE | 2023-10-02 09:12 | HO.ANESPROP2 ---
Documented by User: Yesi Bryan NP 10/02/23 09:19 HPI - Anesthesia Eval Consult details Narrative: 77yo F for Upper Endoscopy and Colonoscopy Follows [facility] [place]. Last office visit 09/2023. Pacer in situ, ECHO pending, but OK to proceed without results. Cardiac optimized It seems urgent that her colonoscopy be done. She can proceed on 10/02 with low to intermediate cardiac risk. Avoid fluid overload. She has a Medtronic dual-chamber pacemaker which was recently checked, battery life is low but will be sufficient.: Follows [facility] nephrology. Last office visit 09/2023: CKD in a setting of hypertension diabetes mellitus. She has stage IIIB CKD. Creatinine is improved from 1.8 down to 1.33 as of June 2023. Repeat creatinine was 1.48. [facility] Active Problems Active Problems: All Active Problems Rectal mass (Acute) Pulmonary nodule 1 cm or greater in diameter (Acute) Hypercalcemia (Acute) CKD (chronic kidney disease) (Acute) AV block (Acute) Other and unspecified hyperlipidemia (Acute) Type 2 diabetes mellitus with unspecified complications (Acute) Essential hypertension (Acute) Pacemaker (Acute) SOB (shortness of breath) (Acute) Left Achilles tendinitis (Acute) Past Medical History Medical History Elevated lipase Mass of left lung AV block Type 2 diabetes mellitus with unspecified complications Pacemaker Hypercholesteremia GERD (gastroesophageal reflux disease) Hypothyroid Hypertension Family History Family History Mother HTN (hypertension) Heart attack Father No problems noted. Maternal Grandmother Breast cancer Surgical History Surgical History History of tonsillectomy H/O total knee replacement H/O: hysterectomy Hx of cholecystectomy Social History Social History Household Members: Spouse Housing: House Do you presently have visiting nurse or other home services: No Alcohol intake: current Alcohol intake frequency: holidays/special occasions only Patient Tobacco Use Status: Never used Tobacco Use of substances other than those prescribed or required for medical reasons: No Are you DNR?: No Advance Directives: No Advance Directives Information Provided: Yes How much weight loss: 2-13 pounds service: No Meds Allergies Allergy/AdvReac Type Severity Reaction Status Date / Time EMELIA Inhibitors AdvReac Severe Angioedema Verified 09/23/23 13:53 Home Medications ?Medication ?Instructions ?Recorded ?Confirmed ?Last Taken ?Type aspirin 81 mg tablet,delayed 81 mg PO DAILY 11/29/20 09/23/23 Unknown History release (Adult Low Dose Aspirin) acetaminophen 500 mg tablet 500 mg PO Q6H PRN Pain 05/03/21 09/23/23 Unknown History (Tylenol Extra Strength) metformin 500 mg tablet 500 mg PO DAILY@1700 05/03/21 09/23/23 Unknown History cholecalciferol (vitamin D3) 25 25 mcg PO DAILY 07/16/23 09/23/23 Unknown History mcg (1,000 unit) capsule rosuvastatin 5 mg tablet 5 mg PO DAILY 07/16/23 09/23/23 Unknown History amlodipine 10 mg tablet 10 mg PO DAILY 08/08/23 09/23/23 10/03/23 History biotin 5 mg tablet 5 mg PO DAILY 08/08/23 09/23/23 Unknown History cyanocobalamin (vitamin B-12) 1,000 mcg PO DAILY 08/08/23 09/23/23 Unknown History 1,000 mcg tablet (Vitamin B-12) levothyroxine 75 mcg tablet 75 mcg PO DAILY@0600 08/08/23 09/23/23 10/03/23 History nystatin 100,000 unit/gram topical 1 appl topical BID PRN Rash 08/08/23 09/23/23 Unknown History powder (Nystop) magnesium oxide 400 mg (241.3 mg 400 mg PO TID 09/23/23 09/23/23 Unknown History magnesium) tablet prednisone 20 mg tablet mg PO PRN 09/23/23 09/23/23 Unknown History spironolactone 25 mg tablet 12.5 mg PO DAILY 09/23/23 09/23/23 Unknown History sucralfate 1 gram tablet 1 g PO BID 09/23/23 09/23/23 Unknown History Exam Height,Weight and Vital Signs: Height 5 ft 2.5 in Weight 87.09 kg Pertinent Lab Results Pertinent Lab Results: Laboratory Tests 08/09/23 09/23/23 06:20 14:51 WBC 11.8 H Hgb 10.8 L Hct 32.0 L Plt Count 165 Sodium 142 Potassium 4.0 Chloride 107 Carbon Dioxide 24 BUN 19 H Creatinine 1.35 Narrative Narrative: EKG 09/2023 Vent. Rate : 067 BPM Atrial Rate : 067 BPM P-R Int : 198 ms QRS Dur : 136 ms QT Int : 440 ms P-R-T Axes : 000 -22 081 degrees QTc Int : 464 ms AV dual-paced rhythm alternating with sinus rhythm with V pacing Abnormal ECG When compared with ECG of 03-AUG-2023 00:37, Vent. rate has decreased BY 44 BPM Pacer check 07/2023 Cardiac Device Check Details: Date of service- 08/07/2023 ; Battery life 5 months; normal lead parameters; HYDRO SPRAYER OPERATOR >99%; no significant arrhythmias. Overall normal device function. ECHO 2021 Conclusions: - 1. Low normal LV systolic function with LVEF of 50-55% with grade 1 diastolic dysfunction 2. Normal cardiac valvular Doppler 3. Normal RV systolic pressure 4. No gross pericardial effusion Assessment and Plan Assessment Anesthesia Assessment: Chart Reviewed Documented by User: Kristofer Brown MD 10/03/23 07:33 [facility] Past Medical History Medical History Elevated lipase Mass of left lung AV block Type 2 diabetes mellitus with unspecified complications Pacemaker Hypercholesteremia GERD (gastroesophageal reflux disease) Hypothyroid Hypertension Narrative: Has FAINA. Family History Family History Mother HTN (hypertension) Heart attack Father No problems noted. Maternal Grandmother Breast cancer Family history of problems with anesthesia: No Surgical History Surgical History History of tonsillectomy H/O total knee replacement H/O: hysterectomy Hx of cholecystectomy History of Problems with Anesthesia: No Social History Social History Household Members: Spouse Housing: House Do you presently have visiting nurse or other home services: No Alcohol intake: current Alcohol intake frequency: holidays/special occasions only Patient Tobacco Use Status: Never used Tobacco Use of substances other than those prescribed or required for medical reasons: No Are you DNR?: No Advance Directives: No Advance Directives Information Provided: Yes How much weight loss: 2-13 pounds service: No Meds Allergies Allergy/AdvReac Type Severity Reaction Status Date / Time EMELIA Inhibitors AdvReac Severe Angioedema Verified 09/23/23 13:53 Home Medications ?Medication ?Instructions ?Recorded ?Confirmed ?Last Taken ?Type aspirin 81 mg tablet,delayed 81 mg PO DAILY 11/29/20 09/23/23 Unknown History release (Adult Low Dose Aspirin) acetaminophen 500 mg tablet 500 mg PO Q6H PRN Pain 05/03/21 09/23/23 Unknown History (Tylenol Extra Strength) metformin 500 mg tablet 500 mg PO DAILY@1700 05/03/21 09/23/23 Unknown History cholecalciferol (vitamin D3) 25 25 mcg PO DAILY 07/16/23 09/23/23 Unknown History mcg (1,000 unit) capsule rosuvastatin 5 mg tablet 5 mg PO DAILY 07/16/23 09/23/23 Unknown History amlodipine 10 mg tablet 10 mg PO DAILY 08/08/23 09/23/23 10/03/23 History biotin 5 mg tablet 5 mg PO DAILY 08/08/23 09/23/23 Unknown History cyanocobalamin (vitamin B-12) 1,000 mcg PO DAILY 08/08/23 09/23/23 Unknown History 1,000 mcg tablet (Vitamin B-12) levothyroxine 75 mcg tablet 75 mcg PO DAILY@0600 08/08/23 09/23/23 10/03/23 History nystatin 100,000 unit/gram topical 1 appl topical BID PRN Rash 08/08/23 09/23/23 Unknown History powder (Nystop) magnesium oxide 400 mg (241.3 mg 400 mg PO TID 09/23/23 09/23/23 Unknown History magnesium) tablet prednisone 20 mg tablet mg PO PRN 09/23/23 09/23/23 Unknown History spironolactone 25 mg tablet 12.5 mg PO DAILY 09/23/23 09/23/23 Unknown History sucralfate 1 gram tablet 1 g PO BID 09/23/23 09/23/23 Unknown History Exam Airway Mallampati Class: I (very anterior) TM Dist: <=3cm Neck ROM: Full Loose/Missing/Broken Teeth: No Heart: ok. see above. Lungs: ok. Assessment and Plan Assessment Anesthesia Assessment: Anesthesia Plan Discussed Final Anesthetic Review Family History of Problems with Anesthesia: No History of Problems with Anesthesia: No NPO: Yes ASA Class: III Final Preanesthetic Review: No Changes in Pt Med Stat, Meds/Allgs Chart Reviewed, Consent Obtained/Reviewed and Anes Risks/Benef Reviewed Patient Risk: High Procedure Risk: Intermediate Anesthetic Plan Anesthetic Plan: Agree w/ Assess. and Plan and TIVA Disposition: Standard PACU
[2023-10-03 06:58] VITALS: BMI 34.7
[2023-10-03 07:18] VITALS: BP 133/69; PULSE 108; RESP 16; TEMP 37.3; O2SAT 95
[2023-10-03] MEDS: Lactated Ringers 1,000 ML 50 ML IVCONT (07:35)
[2023-10-03 07:40] LABS: Glucose, Whole Blood 128 mg/dL (60-115)
[2023-10-03 08:29] VITALS: BP 118/61; PULSE 90; RESP 20; TEMP 36.6; O2SAT 91
--- NOTE | 2023-10-03 08:35 | P.BOP_ITS ---
Brief Operative Note Date of Service: 10/03/23 Pre-op diagnosis: Abdominal pain, abnormal PET-CT of rectum Post-op diagnosis: other (Gastritis/Esophagitis, Diverticulosis) Procedure: EGD with biopsies, Colonoscopy to the cecum Surgeon: Cash Mercado MD Anesthesia: MAC Was an Art [employer] Aide used for this Procedure?: No Estimated blood loss (mL): 2.0 Pathology: other (A. Gastric antrum) Condition: stable Disposition: PACU
[2023-10-03 08:44] VITALS: BP 119/67; PULSE 86; RESP 20; O2SAT 94
[2023-10-03 08:59] VITALS: BP 123/70; PULSE 86; RESP 20; O2SAT 95
[2023-10-03 09:13] VITALS: BP 131/60; PULSE 76; RESP 16; TEMP 36.6; O2SAT 95
--- NOTE | 2023-10-03 09:29 | OP_ITS ---
DATE OF SERVICE: 10/03/2023 SURGEON: Cash Mercado MD INDICATIONS: The patient presents for evaluation of abdominal pain and abnormal PET-CT scan of rectum. Full consent has been obtained from her for both procedures, including risks of bleeding and perforation. PREOPERATIVE DIAGNOSIS: POSTOPERATIVE DIAGNOSIS: PROCEDURE PERFORMED: Esophagogastroduodenoscopy with biopsies, and colonoscopy to the cecum. ESTIMATED BLOOD LOSS: COMPLICATIONS: ANESTHESIA: Monitored anesthesia care. ASSISTANTS: SPECIMENS: PREOPERATIVE DIAGNOSES: Abdominal pain and abnormal PET-CT scan of rectum. POSTOPERATIVE DIAGNOSES: Abdominal pain, abnormal PET-CT scan of rectum, erosive esophagitis, hiatal hernia, gastritis, diverticulosis, and internal hemorrhoids. DESCRIPTION OF PROCEDURE: The patient was placed in the left lateral decubitus position. The Olympus video gastroscope was passed in the posterior oropharynx and upper esophagus under direct vision. The scope was passed slowly to the distal esophagus. The gastroesophageal junction appeared at 35 cm. This area was notable for erosions, edema, and some mild friability. There was no ulceration, mass, nor any gross evidence of Calvo's esophagus. The scope entered the stomach. There was a small to moderate-sized hiatal hernia. The hiatal hernia mucosa was inflamed as well with some edema, gastritis and some small amounts of coffee-grounds material. There was no mass. The scope was advanced to the pylorus and the duodenum was cannulated to the descending portion. The duodenum including the bulb appeared normal without mass or ulceration. The scope was withdrawn back to the stomach. The gastric antrum had areas of edema, erythema, and some friability as well. There were no erosions or ulceration. There was good peristalsis. Biopsies were obtained from the gastric antrum. The scope was retroflexed visualizing the proximal stomach carefully visualizing the above-mentioned inflammation, but there was no mass nor ulceration. The scope was straightened and withdrawn back to the esophagus. Proximal to the EG junction, the esophageal mucosa appeared normal. The scope was withdrawn from the patient. She was turned around for the colonoscopy. The digital rectal exam revealed no abnormalities other than some small external hemorrhoids. The Olympus video pediatric colonoscope was then entered into the rectum and advanced to the cecum with the assistance of abdominal wall pressure. Once in the cecum, I did identify normal-appearing cecal pouch with appendiceal orifice and a normal-appearing ileocecal valve. The entire cecum and ileocecal valve appeared normal. The scope was then slowly withdrawn assessing all mucosal surfaces carefully. Preparation was excellent. I did not visualize any sign of polyps, colitis, nor angiodysplasia. There was a moderate amount of sigmoid diverticulosis. In the rectum, the scope was retroflexed visualizing the distal rectum carefully which appeared normal other than some internal hemorrhoids. The scope was straightened. The entire rectum was well visualized and I did not visualize any sign of suspicious mass or other mucosal abnormality. The scope was withdrawn from the patient. She tolerated the procedure well and was returned to the recovery area in stable condition. IMPRESSION: 1. Erosive esophagitis. 2. Gastritis. 3. Hiatal hernia. 4. Diverticulosis. 5. Internal hemorrhoids. PLAN: The results of the biopsy will be checked. She has been advised to stay off all aspirin and NSAIDs long-term given the upper endoscopy findings, although I did advise her to check with her customer service coordinator to make sure that is okay to stay off the aspirin long-term. I will restart her omeprazole at 40 mg daily given the upper endoscopy findings as clearly the Pepcid and sucralfate are not working and she continues to be symptomatic as well. I did advise her to check with her PCP to see if she will need to start on a magnesium supplement or check periodic magnesium levels given the concern that omeprazole was causing low magnesium levels. However, I do think she will tolerate the omeprazole as she had been on that for many years before that. I will see her for followup later in the year, but I did advise her to call prior to that if she has any problems or questions. We also reviewed the normal colonoscopy in regard to the suspicion raised on the PET-CT scan. This has all been discussed with her . MD GEOFFREY Bedoya/MEREDITH / [id number] JOHNATHON
== END 2023-10-03 09:50 | disposition home or self-care (01) ==
PROVIDERS: PCP Nurse Practitioner Primary Care; Visit Provider Internal Medicine
PROC: (CPT 43239; principal; 2023-10-03 07:30)
DX: K22.10 Ulcer of esophagus without bleeding (principal); K31.A11 Gastric intestinal metaplasia without dysplasia, involving the antrum; K29.60 Other gastritis without bleeding; K44.9 Diaphragmatic hernia without obstruction or gangrene; K21.9 Gastro-esophageal reflux disease without esophagitis; R93.3 Abnormal findings on diagnostic imaging of other parts of digestive tract; K57.30 Diverticulosis of large intestine without perforation or abscess without bleeding; K64.8 Other hemorrhoids; Z86.010 Personal history of colon polyps; E11.22 Type 2 diabetes mellitus with diabetic chronic kidney disease; I12.9 Hypertensive chronic kidney disease with stage 1 through stage 4 chronic kidney disease, or unspecified chronic kidney disease; N18.30 Chronic kidney disease, stage 3 unspecified; E78.00 Pure hypercholesterolemia, unspecified; Z95.0 Presence of cardiac pacemaker; Z79.84 Long term (current) use of oral hypoglycemic drugs; Z79.899 Other long term (current) drug therapy; Z79.82 Long term (current) use of aspirin
CPT/HCPCS: 43239; G0105; 82947; 88305; 88313; 88342; J2704

== ENCOUNTER → 2023-10-18 09:37 | Outpatient (REF) | payer MEDICARE, SELFPAY ==
--- NOTE | 2023-10-18 09:41 | CA_ITS ---
Transthoracic Echocardiogram Patient (Last, First, Middle): Annetta Fishman Etta Gender: Female Date of : 1945 Age: 77 Procedure Date: 10/18/2023 Procedure Type: Transthoracic Echocardiogram Location: OP Height: 160.02 cm Weight: 87.54 kg BSA: 1.90 m2 Heart Rate: 97 bpm BP: 130 / 62 mmHg Plastic Parts Designer: JO ANN Referring MD: Melissa Bennett APPRENTICE PAINTER [employer] Employee: Isidro Emery MD Symptoms: R06.02 - Shortness of breath Study Quality: Adequate ECG Rhythm: Ventriculary paced rhythm Conclusions: - 1. Normal LV ejection fraction of 55-60% with impaired relaxation filling pattern 2. Normal cardiac valvular Dopplers 3. Normal RV systolic pressure 4. No gross pericardial effusion Findings Left Ventricle Normal left ventricular cavity size. There is normal left ventricular wall thickness. The left ventricular systolic function is normal. There is paradoxical septal motion consistent with a right ventricular pacemaker. Spectral Doppler is indicative of an impaired relaxation filling pattern. E/E prime ratio is between 8 and 15 consistent with indeterminate filling pressures. There is moderate septal asymmetric hypertrophy. Peak GLS is 15.3%, mildly reduced. Right Ventricle Normal right ventricular cavity size and systolic function. There is a pacemaker wire seen in the right ventricle. Atria The left atrium is normal in size. Interatrial shunt cannot be excluded. The right atrium is normal in size. A pacemaker wire is identified in the right atrium. Aortic Valve There is mild calcification of the aortic valve. There is mild thickening of the aortic valve. There is no aortic valve stenosis. There is no aortic valve regurgitation. Mitral Valve There is mild anterior and posterior mitral leaflet thickening. There is trace mitral valve regurgitation. There is no mitral valve stenosis. Pulmonic Valve The pulmonic valve was not well visualized. Tricuspid Valve Likely normal tricuspid valve structure and function. There is mild tricuspid valve regurgitation. The right ventricular systolic pressure is normal. The right ventricular systolic pressure is 28 mmHg. Normal right atrial pressure. There is no evidence of pulmonary hypertension. Great Vessels All visible segments of the aorta are normal in size. The pulmonary artery was not well visualized. There is no dilatation of the ascending aorta measuring 3.20 cm. Venous The inferior vena cava is normal in size and collapses greater than 50% with inspiration. Pericardium/Pleural There is no evidence of pericardial effusion. Prior Study Comparison No significant change compared to prior study dated: 06/21/2021. Measurements 2D Linear Measurements IVSd: 1.53 0.6-0.9/0.6-1.0 cm LVIDd: 4.37 3.9-5.3/4.2-5.9 cm LVIDd Index: 2.30 2.4-3.2/2.2-3.1 cm/m2 LVIDs: 3.08 2.0-3.6 cm LVPWd: 1.09 0.7-1.1 cm LA Diam: 3.80 2.7-3.8/3.0-4.0 cm LAIDs Index: 2.00 1.5-2.3 cm/m2 LV Mass: 268.40 67-162/88-224 g LV Mass Index: 141.26 43-95/49-115 g/m2 LVOT Diam: 2.10 3.0+(-)1.3 cm 2D Systolic Function EF 4C: 55.50 >55% EF 2C: 56.80 >55% EF BiP: 57.30 >55% Mitral Valve MV Pk E: 0.45 MV PK A: 0.84 MV Decel Time: 223.00 E/A: 0.50 E'Medial: 3.48 E/E' Med: 13.00 PHT: 65.00 MVA PHT: 3.38 Decel [place]: 2.04 Aortic Valve AoV Pk Heriberto: 1.21 AoV Pk Grad: 6.00 VEL: 2.39 LVOT LVOT Pk Heriberto: 0.84 LVOT Mn Heriberto: 0.61 LVOT VTI: 0.14 LVOT Pk Grad: 3.00 LVOT Mn Grad: 2.00 LVOT Diam: 2.10 LVOT Area: 3.46 Diastolic Function MV Pk E: 0.45 MV Pk A: 0.84 E/A: 0.50 E'Medial: 3.48 E/E' Med: 13.00 Right Ventricle TAPSE (mm): 21.90 TVS' Heriberto: 10.80 Tricuspid Valve TR Pk Heriberto: 2.51 TR Pk Grad: 25.00 RA Press: 3.00 RVSP: 28.00 Great Vessels Aorta Sinus of Valsalva: 2.70 2.0-3.5 cm Ao Asc: 3.20 2.1-3.4 cm Pulmonary Valve PV Pk Heriberto: 0.92 Peak PV Grad: 3.00 Updated in Other Vendor System with Status of Final Isidro Emery MD electronically signed on 10/20/2023 1:29:05 PM with status of Final
== END ==
LOC: HO.CARD 09:37
PROVIDERS: PCP Nurse Practitioner Primary Care; Visit Provider Nurse Practitioner Family
DX: R06.02 Shortness of breath (principal); Z95.0 Presence of cardiac pacemaker
CPT/HCPCS: 93306; 93356

== ENCOUNTER → 2023-10-18 09:41 | Outpatient (BNV) | payer MEDICARE, SELFPAY | PROVIDERS: PCP Nurse Practitioner Primary Care; Visit Provider Internal Medicine Cardiovascular Disease | DX: I42.2 Other hypertrophic cardiomyopathy (principal); R93.1 Abnormal findings on diagnostic imaging of heart and coronary circulation | CPT/HCPCS: 93306; 93356 ==

== ENCOUNTER 2023-10-21 07:44 | Outpatient (REF) | payer MEDICARE, SELFPAY ==
[2023-10-21 09:31] LABS: Magnesium 1.9 mg/dL (1.6-2.6)
== END 2023-10-21 07:45 | disposition home or self-care (01) ==
LOC: HO.LABR 07:44
PROVIDERS: PCP Nurse Practitioner Primary Care; Visit Provider Nurse Practitioner Primary Care
DX: E21.3 Hyperparathyroidism, unspecified (principal); E03.9 Hypothyroidism, unspecified; I10 Essential (primary) hypertension
CPT/HCPCS: 36415; 83735

== ENCOUNTER 2023-10-28 09:11 | Outpatient (REF) | payer MEDICARE, SELFPAY ==
--- NOTE | ~2023-10-28 | CT_ITS ---
EXAMINATION: CT CHEST WITHOUT CONTRAST CLINICAL INFORMATION: Lung mass evaluation COMPARISON: 08/08/2023 TECHNIQUE: Multidetector volumetric CT imaging of the chest was done. Axial MIP volume rendering provided. Sagittal and coronal reformatted images were obtained. This CT examination was performed using dose optimization techniques as appropriate, variously including the following: *Automated exposure control *Adjustment of mA and/or kV according to patient size (this includes techniques or standardized protocols for targeted exams where dose is matched to indication/reason for exam; i.e. extremities or head) *Use of iterative reconstruction technique DLP: 321 mGy-cm FINDINGS: STOCKING AND BOX SHOP SUPERVISOR: Unremarkable LUNGS: Left lower lobe stellate mass, with linear extensions to the pleural surfaceunchanged at 20 x 22 mm. There are slight differences in scan angulation. Continued very short-term follow-up is advised. No other nodules or masses are seen. MEDIASTINUM: Heart size borderline. No pericardial effusion. No significant adenopathy. CORONARY ARTERY CALCIFICATION: Minor PLEURA: There is no pleural effusion. No pleural mass or thickening. AXILLA: No lymphadenopathy. UPPER ABDOMEN: Gallbladder absent. OSSEOUS STRUCTURES: Kyphosis and spondylitic change in the thoracic spine. CT/CT chest wo IV con IMPRESSION: Stable stellate suspicious appearing left lower lobe mass. Continued short-term follow-up advised. Fleischner guidelines were followed.
== END 2023-10-28 09:12 | disposition home or self-care (01) ==
LOC: HO.CT 09:11
PROVIDERS: PCP Nurse Practitioner Primary Care; Visit Provider Internal Medicine Pulmonary Disease
DX: R91.1 Solitary pulmonary nodule (principal)
CPT/HCPCS: 71250

== ENCOUNTER 2023-11-06 10:01 | Outpatient (AMB) | payer MEDICARE, SELFPAY ==
[2023-11-06 10:06] VITALS: BP 132/74; PULSE 108; O2SAT 95; BMI 34.9
--- NOTE | 2023-11-06 10:06 | MHC.OFFVIS ---
Vital Signs 11/06/23 10:06 Height 5 ft 2 in Weight 191 lb BMI 34.9 BP 132/74 Blood Pressure Location Lt brachial Position Sitting Pulse 108 H Pulse Source Doppler Pulse Oximetry (%) 95 Oxygen Delivery Method Room Air Intake Visit Reasons: CT Follow Up Allergies EMELIA Inhibitors Adverse Reaction (Severe, Verified 09/23/23 13:53) Angioedema HPI HPI CT Follow Up: Details: 77-year-old lady, lifetime nonsmoker, with no family history of lung disease, but family history of breast cancer recently admitted and treated for pancreatitis. On CT abdomen obtain to evaluate abdominal pain left basilar pulmonary nodule noted. Dedicated CT chest did not demonstrate any other nodules. Patient denies unintended weight loss. since admission she had an outpatient PET CT that did not demonstrate significant FDG uptake in the previously noted nodule, but has some Mild peripheral uptake and also FDG uptake in the rectum. After the last office visit patient had colonoscopy/endoscopy that did not demonstrate any significant pathology. She did have 3 months follow-up CT scan that showed stable left basilar nodule. Patient also complains of unrestful sleep, snoring, and daytime sleepiness. [facility] Medical History Elevated lipase Mass of left lung AV block Type 2 diabetes mellitus with unspecified complications Pacemaker Hypercholesteremia GERD (gastroesophageal reflux disease) Hypothyroid Hypertension Surgical History History of tonsillectomy H/O total knee replacement H/O: hysterectomy Hx of cholecystectomy Family History Mother HTN (hypertension) Heart attack Father No problems noted. Maternal Grandmother Breast cancer Social History Household Members: Spouse Housing: House Do you presently have visiting nurse or other home services: No Alcohol intake: current Alcohol intake frequency: holidays/special occasions only Patient Tobacco Use Status: Never used Tobacco service: No Review of Systems Const Reports daytime sleepiness, Denies excessive sweating, Denies fatigue, Denies fever(s), Denies lethargy, Denies malaise, Denies night sweats, Reports snoring and Denies weight loss Eyes Denies blurry vision and Denies itchy eyes ENT Denies nasal congestion, Denies post nasal drip, Denies sinus pain, Denies sinus pressure and Denies other ( Thrush) Card Denies chest pain, Denies pedal edema, Denies dyspnea, Denies orthopnea and Denies paroxysmal nocturnal dyspnea Resp Denies cough, Denies hemoptysis, Denies excessive phlegm production, Denies dyspnea, Reports snoring and Denies wheezing GI Denies abdominal pain and Denies heartburn Musc Denies myalgias, Denies arthralgias and Denies joint swelling Skin/Breast Denies rash Neuro Denies memory loss and Denies seizure-like activity Psych Denies abnormal sleep pattern, Denies anxiety and Denies memory loss Endo Denies excessive sweating, Denies fatigue and Denies heat intolerance Abe/Lymph Denies easy bruising Aller/Immun Denies itchy eyes, Denies seasonal rhinorrhea and Denies wheezing Physical Exam Vital Signs: Last Vital Signs Pulse 108 H 11/06/23 10:06 BP 132/74 11/06/23 10:06 Pulse Ox 95 11/06/23 10:06 Oxygen Delivery Method Room Air 11/06/23 10:06 BMI result Body Mass Index 34.9 Const General: no acute distress and alert Nutritional Appearance: obese Orientation/consciousness: Other orientation findings ( oriented) HEENT Head: Yes atraumatic Eyes General: appearance normal, both eyes and all related structures Sclerae: sclerae normal EOM: EOMs intact bilaterally Neck Neck: Yes supple Lymphatic: no lymphadenopathy noted Resp Effort & Inspection: normal respiratory effort and no use of accessory muscles Auscultation: clear to auscultation bilaterally Cardio Rate: regular rate Rhythm: regular rhythm Heart sounds: no gallops, no murmurs and no rubs Skin General skin exam: other ( warm) Extrem General: No clubbing, No cyanosis and No edema Assessment & Plan Assessment & Plan (1) Pulmonary nodule 1 cm or greater in diameter: Code(s): R91.1 - Solitary pulmonary nodule Category: Medical Plan: Results of 3 months follow-up CT chest reviewed and shows stable left lower lobe nodule. Will repeat CT scan in 6 months. (2) FAINA (obstructive sleep apnea): Code(s): G47.33 - Obstructive sleep apnea (adult) (pediatric) Category: Medical Plan: Unrestful sleep, daytime somnolence, snoring. [place] Sleepiness Scale score of 15. Will obtain home sleep study. Orders: Orders RT home sleep study Today G47.33 - Obstructive sleep apnea (adult) (pediatric) Coding Level of Care Code Est Pt Level 4 (42614) Diagnoses Pulmonary nodule 1 cm or greater in diameter R91.1 FAINA (obstructive sleep apnea) G47.33
== END 2023-11-06 10:25 | disposition home or self-care (01) ==
PROVIDERS: PCP Nurse Practitioner Primary Care; Visit Provider Internal Medicine Pulmonary Disease
DX: R91.1 Solitary pulmonary nodule (principal); G47.33 Obstructive sleep apnea (adult) (pediatric)
CPT/HCPCS: 99214

== ENCOUNTER → 2023-11-06 10:01 | Outpatient (BNVA) | payer MEDICARE, SELFPAY | PROVIDERS: PCP Nurse Practitioner Primary Care; Visit Provider Internal Medicine Pulmonary Disease | DX: R91.1 Solitary pulmonary nodule (principal); G47.33 Obstructive sleep apnea (adult) (pediatric) | CPT/HCPCS: 99212 ==

== ENCOUNTER 2023-11-19 07:41 | Outpatient (REF) | payer MEDICARE, SELFPAY ==
[2023-11-19 09:00] LABS: Magnesium 1.9 mg/dL (1.6-2.6)
== END 2023-11-19 07:42 | disposition home or self-care (01) ==
LOC: HO.LAB 07:41
PROVIDERS: PCP Nurse Practitioner Primary Care; Visit Provider Nurse Practitioner Primary Care
DX: E21.3 Hyperparathyroidism, unspecified (principal); E03.9 Hypothyroidism, unspecified; I10 Essential (primary) hypertension
CPT/HCPCS: 36415; 83735

== ENCOUNTER 2023-12-18 16:16 | Outpatient (REF) | payer MEDICARE, SELFPAY ==
[2023-12-18 17:42] LABS: Magnesium 2.1 mg/dL (1.6-2.6)
== END 2023-12-18 16:17 | disposition home or self-care (01) ==
LOC: HO.LABR 16:16
PROVIDERS: PCP Nurse Practitioner Primary Care; Visit Provider Nurse Practitioner Primary Care
DX: E21.3 Hyperparathyroidism, unspecified (principal); E03.9 Hypothyroidism, unspecified; I10 Essential (primary) hypertension
CPT/HCPCS: 36415; 83735

== ENCOUNTER 2023-12-19 09:23 | Outpatient (AMB) | payer MEDICARE, SELFPAY ==
--- NOTE | 2023-12-19 09:27 | A.OFFVIS_ITS ---
Vital Signs 12/19/23 09:28 Height 5 ft 2 in Weight 185 lb 10.067 oz BMI 33.9 BP 134/70 Blood Pressure Location Lt brachial Position Sitting Pulse 92 Pulse Source Pulse Oximeter Intake Visit Reasons: 3m follow up Decorating Equipment Setter Required: No Allergies EMELIA Inhibitors Adverse Reaction (Severe, Verified 12/19/23 09:31) Angioedema Medication List - Last Reconciled 12/19/23 by Melissa Bennett NP-C acetaminophen (Tylenol Extra Strength) 500 mg PO Q6H PRN amlodipine 10 mg PO DAILY biotin 5 mg PO DAILY cyanocobalamin (vitamin B-12) (Vitamin B-12) 1,000 mcg PO DAILY levothyroxine 75 mcg PO DAILY@0600 magnesium oxide 400 mg PO TID metformin 500 mg PO DAILY@1700 nystatin (Nystop) 1 appl topical BID PRN omeprazole 40 mg PO DAILY prednisone mg PO PRN rosuvastatin 5 mg PO DAILY spironolactone 12.5 mg PO DAILY HPI HPI 3m follow up: Details: Annetta Whitlock is a 77-year-old female with past medical history of hypertension, hyperlipidemia, diabetes, sick sinus syndrome, pacemaker since 2015 with gen change in 2013, left bundle branch block who presents for follow-up. Her pacemaker reached PEDIATRIC ANESTHESIOLOGIST on 12/12/2023. Today she reports that she does have ongoing issues with epigastric discomfort. She tells me she had an upper endoscopy which showed esophagitis and gastritis. Her symptoms had improved some but they have worsened again. She is going to make follow-up with her GI provider, Dr. Mercado. Eating certain foods seems to aggravate her symptoms. She has been taking Gas-X with some improvement. She has no discomfort brought on by walking. Her magnesium has been better controlled in recent months. She continues to take a magnesium supplement daily. She has chronic shortness of breath with exertion which is unchanged, no PND, orthopnea or edema. No presyncope, syncope, falls. She is taking her meds as directed. is present. [facility] Medical History Pacemaker at end of battery life Elevated lipase Mass of left lung AV block Type 2 diabetes mellitus with unspecified complications Pacemaker Hypercholesteremia GERD (gastroesophageal reflux disease) Hypothyroid Hypertension Surgical History History of tonsillectomy H/O total knee replacement H/O: hysterectomy Hx of cholecystectomy Family History Mother HTN (hypertension) Heart attack Father No problems noted. Maternal Grandmother Breast cancer Social History Household Members: Spouse Housing: House Do you presently have visiting nurse or other home services: No Alcohol intake: current Alcohol intake frequency: holidays/special occasions only Patient Tobacco Use Status: Never used Tobacco service: No Review of Systems Const All systems reviewed & are unremarkable except as noted in HPI and below ENT Denies dizziness Card Details: epigastric pressure at times Denies chest pain, Denies chest pain at rest, Denies chest pain with activity, Denies rapid heart rate, Denies pedal edema, Denies edema, Denies leg edema, Denies lightheadedness, Denies palpitations, Denies dyspnea, Denies dyspnea on exertion and Denies orthopnea Resp Denies cough, Denies dyspnea and Denies dyspnea on exertion GI Denies hematochezia and Denies change in stool character Musc Denies abnormal gait, Denies limited range of motion, Denies muscle cramps, Denies muscle weakness, Denies numbness, Denies radiating pain into limb, Denies stiffness and Denies tingling Neuro Denies abnormal gait, Denies dizziness, Denies numbness and Denies tingling Endo Denies palpitations Physical Exam Vital Signs: Last Vital Signs Pulse 92 12/19/23 09:28 BP 134/70 12/19/23 09:28 BMI result Body Mass Index 33.9 Const General: cooperative, healthy appearing, comfortable and no acute distress Orientation/consciousness: patient oriented x3 Neck Neck: Yes normal visual inspection and Yes no JVD Chest Other: pacer site left upper chest benign Resp Effort & Inspection: normal respiratory effort Auscultation: clear to auscultation bilaterally, no rales, no rhonchi and no wheezes Cardio Jugular venous distension: no JVD Rate: regular rate Rhythm: regular rhythm Heart sounds: S1 normal heart sound present, S2 normal heart sound present, no murmurs and no rubs Neuro General: patient oriented x3 Extrem General: Yes normal to inspection, No no pedal edema and No calf tenderness Psych Appearance: grossly normal Mental Status: mental status grossly normal Speech and movement: Normal speech and movement present Assessment & Plan Assessment & Plan (1) Pacemaker: Code(s): Z95.0 - Presence of cardiac pacemaker Category: Medical Plan: Medtronic dual-chamber pacemaker in place. Interrogation last visit showed device is functioning normally. Remote monitoring is used. She did reach our PEDIATRIC ANESTHESIOLOGIST on 12/12/2023 and was referred to electrophysiology. She tells me that she was seen in their office and will be called with a date for the generator change procedure. Current pacemaker site is benign. Anticipate that she will see Dr. Infante for wound check. Will arrange for a cardiology follow-up in our office with Medtronic device check in 2-3 months. (2) Essential hypertension: Code(s): I10 - Essential (primary) hypertension Category: Medical Plan: History of hypertension. Currently well controlled with amlodipine 10 mg daily and Aldactone 12.5 mg daily. She had been on EMELIA inhibitor as well however developed signs concerning for angioedema. She was taken off the EMELIA inhibitor and has not had any recurrent issues. No med changes at this time (3) SOB (shortness of breath): Code(s): R06.02 - Shortness of breath Category: Medical Plan: History of chronic shortness of breath with exertion. She does follow with pulmonology. She does not appear fluid overloaded on exam today. She has no reports of chest discomfort. Last echocardiogram done 06/21/2021 showed EF 50- 55%, mild diastolic dysfunction. She is pacemaker dependent, V pacing 99.6% of the time. A repeat echocardiogram was done on 10/18/2023 showing EF 55-60%, impaired relaxation. No evidence of pacemaker induced cardiomyopathy. (4) Pacemaker at end of battery life: Code(s): Z45.010 - Encounter for checking and testing of cardiac pacemaker pulse generator [battery] Category: Medical Plan: As above (5) Epigastric discomfort: Code(s): R10.13 - Epigastric pain Category: Medical Plan: Report of epigastric discomfort. She tells me that she did have a upper endoscopy this past spring showing esophagitis and gastritis. She is following with GI. Her symptom is most likely related to this. She is sitting up a follow-up with GI due to a flare in symptoms. This does not seem like a cardiac symptom but if her symptoms do persist in spite of GI treatments then will consider a pharmacological nuclear stress test. Plan Time spent on chart review, documentation, interview and assessment Coding Level of Care Code Est Pt Level 4 (01743) Diagnoses Pacemaker Z95.0 Essential hypertension I10 SOB (shortness of breath) R06.02 Pacemaker at end of battery life Z45.010 Epigastric discomfort R10.13 Time Spent (min) 28
[2023-12-19 09:28] VITALS: BP 134/70; PULSE 92; BMI 33.9
== END 2023-12-19 09:57 | disposition home or self-care (01) ==
PROVIDERS: PCP Nurse Practitioner Primary Care; Visit Provider Nurse Practitioner Family
DX: I10 Essential (primary) hypertension (principal); R06.02 Shortness of breath; R10.13 Epigastric pain; T82.111A Breakdown (mechanical) of cardiac pulse generator (battery), initial encounter; Z95.0 Presence of cardiac pacemaker
CPT/HCPCS: 99214

== ENCOUNTER → 2023-12-19 10:03 | Outpatient (REF) | payer MEDICARE, SELFPAY | LOC: HO.SL 10:03 | PROVIDERS: PCP Nurse Practitioner Primary Care; Visit Provider Internal Medicine Pulmonary Disease | DX: G47.33 Obstructive sleep apnea (adult) (pediatric) (principal); Z95.0 Presence of cardiac pacemaker; R06.02 Shortness of breath; I10 Essential (primary) hypertension; R10.13 Epigastric pain | CPT/HCPCS: 95806; 99212 ==

== ENCOUNTER → 2023-12-20 10:42 | Outpatient (BNV) | payer MEDICARE, SELFPAY | PROVIDERS: PCP Nurse Practitioner Primary Care; Visit Provider Internal Medicine | DX: G47.33 Obstructive sleep apnea (adult) (pediatric) (principal) | CPT/HCPCS: 95806 ==

== ENCOUNTER 2023-12-23 07:39 | Outpatient (REF) | payer MEDICARE, SELFPAY ==
[2023-12-23 07:51] LABS: MANUAL DIFF FLAG NO
[2023-12-23 08:22] LABS: Basophils Absolute Auto 0.1 X10*3/uL (0.0-0.2); Basophils Percent Auto 0.7 % (0-2); Eosinophils Absolute Auto 0.4 X10*3/uL (0.0-0.4); Eosinophils Percent Auto 3.7 % (0-4); Hematocrit 35.9 % (37.0-47.0); Hemoglobin 11.7 g/dl (12.0-16.0); Imm Gran Abs Auto 0.02 X10*3/uL (0.00-0.03); Imm Gran Pct Auto 0.2 % (0.0-0.4); Lymphocytes Absolute Auto 2.6 X10*3/uL (1.2-4.9); Lymphocytes Percent Auto 26.2 % (20-40); Mean Corpuscular HGB Conc 32.6 g/dl (31.0-35.0); Mean Corpuscular Hemoglobin 27.8 pg (27.0-33.0); Mean Corpuscular Volume 85.3 fL (80.0-98.0); Mean Platelet Volume 10.1 fL (9.4-12.3); Monocytes Absolute Auto 0.8 X10*3/uL (0.1-1.2); Monocytes Percent Auto 8.1 % (2-11); Neutrophils Percent Auto 61.1 % (45-73); Platelet Count 259 X10*3/uL (160-400); Red Blood Count 4.21 X10*6/uL (4.20-5.50); White Blood Count 9.8 X10*3/uL (4.8-10.8)
[2023-12-23 08:26] LABS: INTERNATIONAL NORM RATIO 0.9 (0.9-1.1); Prothrombin Time 10.6 SEC (11.1-13.3)
[2023-12-23 09:00] LABS: Anion Gap 14 (12-20); Blood Urea Nitrogen 21 mg/dL (9-16); Calcium 11.6 mg/dL (8.4-10.2); Carbon Dioxide 27 mmol/L (22-29); Chloride 105 mmol/L (96-108); Estimated Glomerular Filt Rate 36; Glucose Random 122 mg/dL (60-115); Potassium 4.1 mmol/L (3.3-5.1); Sodium 142 mmol/L (135-145)
== END 2023-12-23 07:40 | disposition home or self-care (01) ==
LOC: HO.LAB 07:39
PROVIDERS: PCP Nurse Practitioner Primary Care; Visit Provider Internal Medicine Cardiovascular Disease
DX: Z45.018 Encounter for adjustment and management of other part of cardiac pacemaker (principal)
CPT/HCPCS: 36415; 80048; 85025; 85610

== ENCOUNTER 2024-01-06 07:38 | Outpatient (REF) | payer MEDICARE, SELFPAY ==
[2024-01-06 08:43] LABS: Anion Gap 11 (12-20); Blood Urea Nitrogen 19 mg/dL (9-16); Calcium 11.4 mg/dL (8.4-10.2); Carbon Dioxide 27 mmol/L (22-29); Chloride 107 mmol/L (96-108); Estimated Glomerular Filt Rate 42; Glucose Random 127 mg/dL (60-115); Phosphorus 3.5 mg/dL (2.7-4.5); Potassium 4.1 mmol/L (3.3-5.1); Sodium 141 mmol/L (135-145)
[2024-01-06 08:49] LABS: Parathyroid Hormone Intact 201.8 pg/mL (8.7-77.1)
[2024-01-11 14:34] LABS: Vitamin D 25-OH, D2 <4 ng/mL; Vitamin D 25-OH, D3 30 ng/mL; Vitamin D 25-OH, Total 30 ng/mL (30-100)
== END 2024-01-06 07:39 | disposition home or self-care (01) ==
LOC: HO.LAB 07:38
PROVIDERS: PCP Nurse Practitioner Primary Care; Visit Provider Internal Medicine Hypertension Specialist
DX: N18.9 Chronic kidney disease, unspecified (principal); E83.52 Hypercalcemia
CPT/HCPCS: 36415; 80048; 82306; 83970; 84100

== ENCOUNTER 2024-01-07 10:29 | Outpatient (AMB) | payer MEDICARE, SELFPAY ==
[2024-01-07 10:36] VITALS: BP 134/70; PULSE 108; O2SAT 96; BMI 35.1
--- NOTE | 2024-01-07 10:36 | HO.NEPHOV ---
Vital Signs 01/07/24 10:36 Height 5 ft 2 in Weight 192 lb BMI 35.1 BP 134/70 Blood Pressure Location Rt brachial Position Sitting Pulse 108 H Pulse Source Pulse Oximeter Pulse Oximetry (%) 96 Oxygen Delivery Method Room Air Intake Visit Reasons: 5 MO FU/ LVM Precision Grinder External Required: No Accompanied by: Spouse Allergies CORBIN Inhibitors Adverse Reaction (Severe, Verified 01/07/24 10:38) Angioedema HPI Comments Details: Elderly woman with a history of CKD in a setting of longstanding hypertension and diabetes mellitus. Recently she had an episode of gout. This was treated with prednisone. No uric acid levels are available. She has persistent hypercalcemia 09/23/23 Recently she had an episode of vertigo She was seen in the ER. Subsequently she was found to have swelling in the epiglottis area. This was thought to be angioedema due to CORBIN inhibitor. Benazepril was discontinued. Swelling is resolved. She was having nausea and epigastric discomfort and was readmitted to [facility] she was initially diagnosed with pancreatitis. She had persistent hypomagnesemia. Proton pump inhibitor was discontinued. She is on magnesium supplementation. Over the last few days she thought the nausea was related to the cinacalcet. She is stopped cinacalcet 2 days ago and the nausea has improved. During the workup she was found to have a lung nodule. She is being followed by Dr. Tamez PET scan showed benign lesion 01/07/24 Doing OK Pacemaker was changed MgO was decreased to 2 a day from 3 [facility] Medical History Pacemaker at end of battery life Elevated lipase Mass of left lung AV block Type 2 diabetes mellitus with unspecified complications Pacemaker Hypercholesteremia GERD (gastroesophageal reflux disease) Hypothyroid Hypertension Surgical History History of tonsillectomy H/O total knee replacement H/O: hysterectomy Hx of cholecystectomy Family History Mother HTN (hypertension) Heart attack Father No problems noted. Maternal Grandmother Breast cancer Social History Household Members: Spouse Housing: House Do you presently have visiting nurse or other home services: No Alcohol intake: current Alcohol intake frequency: holidays/special occasions only Patient Tobacco Use Status: Never used Tobacco service: No Physical Exam Vital Signs: Last Vital Signs Pulse 108 H 01/07/24 10:36 BP 134/70 01/07/24 10:36 Pulse Ox 96 01/07/24 10:36 Oxygen Delivery Method Room Air 01/07/24 10:36 BMI result Body Mass Index 35.1 Const General: comfortable; No acute distress Orientation/consciousness: patient oriented x3 Eyes General: appearance normal, both eyes and all related structures Visual Rosenberg: normal visual rosenberg by confrontation Neck Neck: Yes supple and Yes no JVD Resp Effort & Inspection: normal respiratory effort and respiratory effort not decreased Auscultation: rhonchi Cardio Palpation: no palpable S3 and no palpable S4 Heart sounds: no rubs GI Inspection: Yes normal to inspection Palpation (GI): Soft to palpation Percussion: Yes normal to percussion Auscultation: normal bowel sounds General: Yes no CVA tenderness Back/Spine/Pelvis Back: no CVA tenderness Skin General skin exam: no petechiae and no purpura Neuro General: patient oriented x3 and no focal motor deficits Extrem General: No clubbing and Yes edema Results Reviewed Nephrology Results: Hgb 11.7 g/dl (12.0-16.0) L 12/23/23 WBC 9.8 X10*3/uL (4.8-10.8) 12/23/23 Plt Count 259 X10*3/uL (160-400) 12/23/23 Sodium 141 mmol/L (135-145) 01/06/24 Potassium 4.1 mmol/L (3.3-5.1) 01/06/24 Chloride 107 mmol/L (96-108) 01/06/24 Carbon Dioxide 27 mmol/L (22-29) 01/06/24 BUN 19 mg/dL (9-16) H 01/06/24 Creatinine 1.24 mg/dL (0.5-1.4) 01/06/24 Calcium 11.4 mg/dL (8.4-10.2) H 01/06/24 Phosphorus 3.5 mg/dL (2.7-4.5) 01/06/24 PTH Intact 201.8 pg/mL (8.7-77.1) H 01/06/24 Assessment & Plan Assessment & Plan (1) CKD (chronic kidney disease): Code(s): N18.9 - Chronic kidney disease, unspecified Category: Medical Plan: CKD in a setting of hypertension diabetes mellitus. She has stage IIIB CKD. Creatinine is improved from 1.8 down to 1.33 as of June 2023. Repeat creatinine was 1.48. Goal is to slow the portion disease. Maintain A1c less than 7% and blood pressure less than 130/80 Continue overt nephrotoxic agents. She will benefit from SGLT2 inhibitors. Swelling epiglottis may very well be due to Corbin inhibitors. She has been on CORBIN inhibitors for 20 years. However given the circumstances I will avoid using CORBIN inhibitors. Leg edema use due to high dose of amlodipine. However blood pressure is well controlled therefore we will continue the current dose. Leg elevation at night we will be beneficial. . (2) Essential hypertension: Code(s): I10 - Essential (primary) hypertension Category: Medical Plan: Blood pressure is well controlled No changes were made to medications low-salt diet . (3) Hypercalcemia: Code(s): E83.52 - Hypercalcemia Category: Medical Plan: h/o hypercalcemia with elevated PTH suggestive of primary hyperparathyroidism. Hypomagnesemia. This may be due to the combination of using proton pump inhibitor and cinacalcet.. Since she has not tolerating cinacalcet, it was l discontinued. Ordered serum calcium and parathyroid hormone levels today. For now we will continue the magnesium supplementation and we can gradually start tapering the supplemental dose. 01/07/24 Ordered parathyroid scan She is willing to try cinacalcet again if needed, after the scan . Orders: Orders Parathyroid Hormone Intact 1 Month E83.52 - Hypercalcemia, N18.9 - Chronic kidney disease, unspecified NM parathyroid Today E83.52 - Hypercalcemia Basic Metabolic Panel 1 Month E83.52 - Hypercalcemia, N18.9 - Chronic kidney disease, unspecified Magnesium 1 Month E83.52 - Hypercalcemia, N18.9 - Chronic kidney disease, unspecified Coding Level of Care Code Est Pt Level 4 (94204) Diagnoses CKD (chronic kidney disease) N18.9 Essential hypertension I10 Hypercalcemia E83.52
== END 2024-01-07 11:00 | disposition home or self-care (01) ==
PROVIDERS: PCP Nurse Practitioner Primary Care; Visit Provider Internal Medicine Hypertension Specialist
DX: I12.9 Hypertensive chronic kidney disease with stage 1 through stage 4 chronic kidney disease, or unspecified chronic kidney disease (principal); N18.9 Chronic kidney disease, unspecified; E83.52 Hypercalcemia
CPT/HCPCS: 99214

== ENCOUNTER → 2024-01-07 10:29 | Outpatient (BNVA) | payer MEDICARE, SELFPAY | PROVIDERS: PCP Nurse Practitioner Primary Care; Visit Provider Internal Medicine Hypertension Specialist | DX: Z95.0 Presence of cardiac pacemaker (principal); I12.9 Hypertensive chronic kidney disease with stage 1 through stage 4 chronic kidney disease, or unspecified chronic kidney disease; N18.9 Chronic kidney disease, unspecified; E83.52 Hypercalcemia | CPT/HCPCS: 99212 ==

== ENCOUNTER 2024-01-07 14:10 | Outpatient (AMB) | payer MEDICARE, SELFPAY ==
--- NOTE | 2024-01-07 14:26 | MHC.OFFVIS ---
Vital Signs 01/07/24 14:27 Height 5 ft 2 in Weight 191 lb 12.835 oz BMI 35.1 BP 130/62 Blood Pressure Location Lt brachial Position Sitting Pulse 92 Pulse Source Pulse Oximeter Intake Visit Reasons: follow-up post medtronic battier change Allergies EMELIA Inhibitors Adverse Reaction (Severe, Verified 01/07/24 10:38) Angioedema HPI Comments Details: 78-year-old female presents today for a visit after having a generator change for her pacemaker. She had her Medtronic generator change on 12/25/[address] Infante. She reports she has had no issues with the pacemaker site. She has been having some pain there and is using Tylenol and cool compresses as needed. Denies any fever, chills, odor, or drainage. She has her remote device at home at her bedside. [facility] Medical History Pacemaker at end of battery life Elevated lipase Mass of left lung AV block Type 2 diabetes mellitus with unspecified complications Pacemaker Hypercholesteremia GERD (gastroesophageal reflux disease) Hypothyroid Hypertension Surgical History History of tonsillectomy H/O total knee replacement H/O: hysterectomy Hx of cholecystectomy Family History Mother HTN (hypertension) Heart attack Father No problems noted. Maternal Grandmother Breast cancer Social History Household Members: Spouse Housing: House Do you presently have visiting nurse or other home services: No Alcohol intake: current Alcohol intake frequency: holidays/special occasions only Patient Tobacco Use Status: Never used Tobacco service: No Review of Systems Const Denies weakness ENT Denies dizziness Card Denies chest pain, Denies chest pain with activity, Denies syncope, Denies rapid heart rate, Denies pedal edema, Denies edema, Denies leg edema, Denies lightheadedness, Denies palpitations, Denies dyspnea, Denies dyspnea on exertion and Denies orthopnea Resp Denies cough, Denies dyspnea and Denies dyspnea on exertion GI Denies hematochezia and Denies change in stool character Musc Denies abnormal gait, Denies muscle cramps, Denies muscle weakness, Denies numbness, Denies radiating pain into limb and Denies tingling Neuro Denies abnormal gait, Denies dizziness, Denies syncope, Denies numbness, Denies tingling and Denies weakness Endo Denies palpitations Physical Exam Vital Signs: Last Vital Signs Pulse 92 01/07/24 14:27 BP 130/62 01/07/24 14:27 BMI result Body Mass Index 35.1 Const General: healthy appearing and no acute distress Orientation/consciousness: patient oriented x3 HEENT Head: Yes normal to inspection Eyes General: appearance normal, both eyes and all related structures Neck Neck: Yes normal visual inspection Chest Other: left pectoral region. well approximated surgical incision with surgical glue. No erythema, swelling, drainage, or odor noted. Chest palpation & inspection: normal inspection of the chest Resp Effort & Inspection: normal respiratory effort Auscultation: clear to auscultation bilaterally Cardio Jugular venous distension: no JVD Palpation: normal PMI Rate: regular rate Rhythm: regular rhythm Heart sounds: S1 normal heart sound present, S2 normal heart sound present, no click, no gallops, no murmurs and no rubs GI Inspection: Yes normal to inspection Palpation (GI): Soft to palpation Skin General skin exam: no rashes or lesions noted Neuro General: patient oriented x3 Extrem General: Yes normal to inspection Psych Appearance: grossly normal Assessment & Plan Assessment & Plan (1) Pacemaker: Comment: [employer]. Implanted 12/25/2023 SN: [id number] Code(s): Z95.0 - Presence of cardiac pacemaker Category: Medical Plan Generator change done on 12/25/[address] Infante. Site is well approximated with no signs or symptoms of infection. Surgical glue intact. Signs and symptoms of infection reviewed. She is using Tylenol as needed for any discomfort. We will request records of implantation. Remote monitor reviewed. She is connected to remote monitoring. Coding Level of Care Code Est Pt Level 3 (00382) Diagnoses Pacemaker Z95.0
[2024-01-07 14:27] VITALS: BP 130/62; PULSE 92; BMI 35.1
== END 2024-01-07 14:36 | disposition home or self-care (01) ==
PROVIDERS: PCP Nurse Practitioner Primary Care; Visit Provider Nurse Practitioner
DX: Z45.010 Encounter for checking and testing of cardiac pacemaker pulse generator [battery] (principal)
CPT/HCPCS: 99213

== ENCOUNTER 2024-01-10 11:01 | Outpatient (AMB) | payer MEDICARE, SELFPAY ==
[2024-01-10 11:25] VITALS: BP 120/62; PULSE 95; O2SAT 96; BMI 34.5
--- NOTE | 2024-01-10 11:25 | MHC.OFFVIS ---
Vital Signs 01/10/24 11:25 Height 5 ft 2 in Weight 188 lb 7.924 oz BMI 34.5 BP 120/62 Blood Pressure Location Lt brachial Position Sitting Pulse 95 Pulse Source Pulse Oximeter Pulse Oximetry (%) 96 Oxygen Delivery Method Room Air Intake Visit Reasons: sleep study follow up Sponge Maker Required: No Allergies EMELIA Inhibitors Adverse Reaction (Severe, Verified 01/10/24 11:29) Angioedema HPI HPI sleep study follow up: Details: 77-year-old lady, lifetime nonsmoker, with no family history of lung disease, but family history of breast cancer recently admitted and treated for pancreatitis. On CT abdomen obtain to evaluate abdominal pain left basilar pulmonary nodule noted. Dedicated CT chest did not demonstrate any other nodules. Patient denies unintended weight loss. since admission she had an outpatient PET CT that did not demonstrate significant FDG uptake in the previously noted nodule, but has some Mild peripheral uptake and also FDG uptake in the rectum. After the last office visit patient had sleep study that showed underlying severe obstructive sleep apnea. [facility] Medical History Pacemaker at end of battery life Elevated lipase Mass of left lung AV block Type 2 diabetes mellitus with unspecified complications Pacemaker Hypercholesteremia GERD (gastroesophageal reflux disease) Hypothyroid Hypertension Surgical History History of tonsillectomy H/O total knee replacement H/O: hysterectomy Hx of cholecystectomy Family History Mother HTN (hypertension) Heart attack Father No problems noted. Maternal Grandmother Breast cancer Social History Household Members: Spouse Housing: House Do you presently have visiting nurse or other home services: No Alcohol intake: current Alcohol intake frequency: holidays/special occasions only Patient Tobacco Use Status: Never used Tobacco service: No Review of Systems Const Reports daytime sleepiness, Denies excessive sweating, Denies fatigue, Denies fever(s), Denies lethargy, Denies malaise, Denies night sweats, Reports snoring and Denies weight loss Eyes Denies blurry vision and Denies itchy eyes ENT Denies nasal congestion, Denies post nasal drip, Denies sinus pain, Denies sinus pressure and Denies other ( Thrush) Card Denies chest pain, Denies pedal edema, Denies dyspnea, Denies orthopnea and Denies paroxysmal nocturnal dyspnea Resp Denies cough, Denies hemoptysis, Denies excessive phlegm production, Denies dyspnea, Reports snoring and Denies wheezing GI Denies abdominal pain and Denies heartburn Musc Denies myalgias, Denies arthralgias and Denies joint swelling Skin/Breast Denies rash Neuro Denies memory loss and Denies seizure-like activity Psych Denies abnormal sleep pattern, Denies anxiety and Denies memory loss Endo Denies excessive sweating, Denies fatigue and Denies heat intolerance Abe/Lymph Denies easy bruising Aller/Immun Denies itchy eyes, Denies seasonal rhinorrhea and Denies wheezing Physical Exam Vital Signs: Last Vital Signs Pulse 95 01/10/24 11:25 BP 120/62 01/10/24 11:25 Pulse Ox 96 01/10/24 11:25 Oxygen Delivery Method Room Air 01/10/24 11:25 BMI result Body Mass Index 34.5 Const General: no acute distress and alert Nutritional Appearance: obese Orientation/consciousness: Other orientation findings ( oriented) HEENT Head: Yes atraumatic Eyes General: appearance normal, both eyes and all related structures Sclerae: sclerae normal EOM: EOMs intact bilaterally Neck Neck: Yes supple Lymphatic: no lymphadenopathy noted Resp Effort & Inspection: normal respiratory effort and no use of accessory muscles Auscultation: clear to auscultation bilaterally Cardio Rate: regular rate Rhythm: regular rhythm Heart sounds: no gallops, no murmurs and no rubs Skin General skin exam: other ( warm) Extrem General: No clubbing, No cyanosis and No edema Assessment & Plan Assessment & Plan (1) FAINA (obstructive sleep apnea): Code(s): G47.33 - Obstructive sleep apnea (adult) (pediatric) Category: Medical Plan: Results of sleep study reviewed, severe obstructive sleep apnea with AHI of 34. APAP ordered. (2) Pulmonary nodule 1 cm or greater in diameter: Code(s): R91.1 - Solitary pulmonary nodule Category: Medical Plan: 3 months follow-up CT scan with no significant changes. Six months follow-up CT scan is pending for April of 2024. Coding Level of Care Code Est Pt Level 4 (81480) Diagnoses FAINA (obstructive sleep apnea) G47.33 Pulmonary nodule 1 cm or greater in diameter R91.1
== END 2024-01-10 11:43 | disposition home or self-care (01) ==
PROVIDERS: PCP Nurse Practitioner Primary Care; Visit Provider Internal Medicine Pulmonary Disease
DX: G47.33 Obstructive sleep apnea (adult) (pediatric) (principal); R91.1 Solitary pulmonary nodule
CPT/HCPCS: 99214

== ENCOUNTER → 2024-01-10 11:01 | Outpatient (BNVA) | payer MEDICARE, SELFPAY | PROVIDERS: PCP Nurse Practitioner Primary Care; Visit Provider Internal Medicine Pulmonary Disease | DX: G47.33 Obstructive sleep apnea (adult) (pediatric) (principal); R91.1 Solitary pulmonary nodule | CPT/HCPCS: 99212 ==

== ENCOUNTER 2024-01-22 07:48 | Outpatient (REF) | payer MEDICARE, SELFPAY ==
[2024-01-22 09:50] LABS: Magnesium 1.8 mg/dL (1.6-2.6)
== END 2024-01-22 07:49 | disposition home or self-care (01) ==
LOC: HO.LABR 07:48
PROVIDERS: PCP Nurse Practitioner Primary Care; Visit Provider Nurse Practitioner Primary Care
DX: E21.3 Hyperparathyroidism, unspecified (principal); E03.9 Hypothyroidism, unspecified; I10 Essential (primary) hypertension
CPT/HCPCS: 36415; 83735

== ENCOUNTER → 2024-02-05 07:42 | Outpatient (REF) | payer MEDICARE, SELFPAY ==
--- NOTE | ~2024-02-05 | NM_ITS ---
EXAMINATION: NM PARATHYROID SCAN CLINICAL INFORMATION: Hypercalcemia, history of chronic kidney disease. COMPARISON: No previous radionuclide thyroid or parathyroid scan is available for comparison. TECHNIQUE: A double radionuclide study of the thyroid bed region and upper chest in multiple projections was performed 4 hours after the oral administration of 990 microcuries I-123 sodium iodide and immediately following the intravenous administration of 30 mCi Tc-99m sestamibi. Repeat imaging was performed 2 hours later. The iodide images were electronically subtracted from the sestamibi images using different weighting factors. FINDINGS: There is homogeneous uptake of radioiodine throughout both lobes. The thyroid gland appears to be normal in size and shape. There are no focal areas of increased or diminished uptake. Technetium 99m sestamibi images demonstrate homogeneous thyroid activity. There is a small discrete focus of relatively increased sestamibi activity adjacent to the posterior lateral aspect of the lower pole of the right thyroid lobe. This focus is more intense than the entire thyroid gland. On the delayed images at 2 hours there is significant washout of sestamibi activity from the thyroid, but the focus adjacent to the lower pole the right lobe persists. There are no other foci of abnormal sestamibi activity visualized. Computer-generated digital subtraction images show abnormal sestamibi excess corresponding to the focus of increased activity adjacent to the lateral posterior aspect of the lower pole of the right thyroid lobe described above. No other foci of abnormal sestamibi access are not visualized. NM/NM parathyroid IMPRESSION: Focus of abnormal sestamibi access is visualized lateral and posterior to the lower pole of the right thyroid lobe. 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 No additional abnormalities suspicious for other parathyroid lesions are visualized. There is homogeneous uptake of radioiodine in the thyroid gland which is also normal in size and shape. Electronically signed by: Gerald Razo MD 02/05/2024 04:25 PM EDT
== END ==
LOC: HO.NUCMED 07:42
PROVIDERS: PCP Nurse Practitioner Primary Care; Visit Provider Internal Medicine Hypertension Specialist
DX: E83.52 Hypercalcemia (principal)
CPT/HCPCS: 78070; A9500; A9516

== ENCOUNTER 2024-02-19 07:41 | Outpatient (REF) | payer MEDICARE, SELFPAY ==
[2024-02-19 08:30] LABS: Anion Gap 13 (12-20); Blood Urea Nitrogen 21 mg/dL (9-16); Calcium 11.2 mg/dL (8.4-10.2); Carbon Dioxide 26 mmol/L (22-29); Chloride 106 mmol/L (96-108); Estimated Glomerular Filt Rate 42; Glucose Random 112 mg/dL (60-115); Magnesium 1.8 mg/dL (1.6-2.6); Potassium 4.3 mmol/L (3.3-5.1); Sodium 141 mmol/L (135-145)
== END 2024-02-19 07:42 | disposition home or self-care (01) ==
LOC: HO.LAB 07:41
PROVIDERS: Absent Provider Nurse Practitioner Primary Care; PCP Nurse Practitioner Primary Care; Visit Provider Internal Medicine Hypertension Specialist
DX: N18.9 Chronic kidney disease, unspecified (principal); E83.52 Hypercalcemia
CPT/HCPCS: 36415; 80048; 83735; 83970

== ENCOUNTER 2024-02-20 10:26 | Outpatient (AMB) | payer MEDICARE, SELFPAY ==
[2024-02-20 10:47] VITALS: BP 140/68; PULSE 91; O2SAT 95; BMI 35.5
--- NOTE | 2024-02-20 10:47 | HO.NEPHOV ---
Vital Signs 02/20/24 10:47 02/20/24 11:15 Height 5 ft 2 in Weight 194 lb BMI 35.5 BP 140/68 H 134/60 Blood Pressure Location Lt brachial Lt brachial Position Sitting Sitting Pulse 91 Pulse Source Pulse Oximeter Pulse Oximetry (%) 95 Oxygen Delivery Method Room Air Intake Visit Reasons: CKD/ Conf Vp Transportation Required: No Accompanied by: Spouse Allergies EMELIA Inhibitors Adverse Reaction (Severe, Verified 02/20/24 10:49) Angioedema Medication List - Last Reconciled 02/20/24 by Arsen Villegas MD acetaminophen (Tylenol Extra Strength) 500 mg PO Q6H amlodipine 10 mg PO DAILY biotin 5 mg PO DAILY cyanocobalamin (vitamin B-12) (Vitamin B-12) 1,000 mcg PO DAILY levothyroxine 75 mcg PO DAILY@0600 magnesium oxide 400 mg PO BID metformin 500 mg PO DAILY@1700 nystatin (Nystop) 1 appl topical BID PRN omeprazole 40 mg PO DAILY prednisone mg PO PRN psyllium husk (Metamucil) 3 tbsp PO DAILY rosuvastatin 5 mg PO DAILY spironolactone 12.5 mg PO DAILY HPI Comments Details: Elderly woman with a history of CKD in a setting of longstanding hypertension and diabetes mellitus. Recently she had an episode of gout. This was treated with prednisone. No uric acid levels are available. She has persistent hypercalcemia 09/23/23 Recently she had an episode of vertigo She was seen in the ER. Subsequently she was found to have swelling in the epiglottis area. This was thought to be angioedema due to EMELIA inhibitor. Benazepril was discontinued. Swelling is resolved. She was having nausea and epigastric discomfort and was readmitted to [facility] she was initially diagnosed with pancreatitis. She had persistent hypomagnesemia. Proton pump inhibitor was discontinued. She is on magnesium supplementation. Over the last few days she thought the nausea was related to the cinacalcet. She is stopped cinacalcet 2 days ago and the nausea has improved. During the workup she was found to have a lung nodule. She is being followed by Dr. Tamez PET scan showed benign lesion 01/07/24 Doing OK Pacemaker was changed MgO was decreased to 2 a day from 3 PFSH Medical History Pacemaker at end of battery life Elevated lipase Mass of left lung AV block Type 2 diabetes mellitus with unspecified complications Pacemaker Hypercholesteremia GERD (gastroesophageal reflux disease) Hypothyroid Hypertension Surgical History History of tonsillectomy H/O total knee replacement H/O: hysterectomy Hx of cholecystectomy Family History Mother HTN (hypertension) Heart attack Father No problems noted. Maternal Grandmother Breast cancer Social History Household Members: Spouse Housing: House Do you presently have visiting nurse or other home services: No Alcohol intake: current Alcohol intake frequency: holidays/special occasions only Patient Tobacco Use Status: Never used Tobacco service: No Physical Exam Vital Signs: Last Vital Signs Pulse 91 02/20/24 10:47 BP 140/68 H 02/20/24 10:47 Pulse Ox 95 02/20/24 10:47 Oxygen Delivery Method Room Air 02/20/24 10:47 BMI result Body Mass Index 35.5 Results Reviewed Nephrology Results: Hgb 11.7 g/dl (12.0-16.0) L 12/23/23 WBC 9.8 X10*3/uL (4.8-10.8) 12/23/23 Plt Count 259 X10*3/uL (160-400) 12/23/23 Sodium 141 mmol/L (135-145) 02/19/24 Potassium 4.3 mmol/L (3.3-5.1) 02/19/24 Chloride 106 mmol/L (96-108) 02/19/24 Carbon Dioxide 26 mmol/L (22-29) 02/19/24 BUN 21 mg/dL (9-16) H 02/19/24 Creatinine 1.24 mg/dL (0.5-1.4) 02/19/24 Calcium 11.2 mg/dL (8.4-10.2) H 02/19/24 Phosphorus 3.5 mg/dL (2.7-4.5) 01/06/24 PTH Intact 187.0 pg/mL (8.7-77.1) H 02/19/24 Assessment & Plan Assessment & Plan (1) CKD (chronic kidney disease): Code(s): N18.9 - Chronic kidney disease, unspecified Category: Medical (2) Essential hypertension: Code(s): I10 - Essential (primary) hypertension Category: Medical Plan: Blood pressure is well controlled No changes were made to medications low-salt diet . (3) Hypercalcemia: Code(s): E83.52 - Hypercalcemia Category: Medical Plan: h/o hypercalcemia with elevated PTH suggestive of primary hyperparathyroidism. Hypomagnesemia. This may be due to the combination of using proton pump inhibitor and cinacalcet.. Since she has not tolerating cinacalcet, it was discontinued. Ordered serum calcium and parathyroid hormone levels today. For now we will continue the magnesium supplementation and we can gradually start tapering the supplemental dose. 01/07/24 Ordered parathyroid scan She is willing to try cinacalcet again if needed, after the scan . Plan 02/20/24 Parathryoid scan shows adenoma She has primary hyperparathyroidism Discussed surgical option Given the comorbids including cardiac status surgical vs medical management was discused She wants try cinacalcet one more time Started Cinacalcet 30 mcg QD Check Ca/Mg.PTH in 2 weeks, 4 weeks and 8 weeks Orders: Orders Magnesium 2 Weeks E83.52 - Hypercalcemia, N18.9 - Chronic kidney disease, unspecified Parathyroid Hormone Intact 2 Weeks E83.52 - Hypercalcemia, N18.9 - Chronic kidney disease, unspecified Magnesium 4 Weeks E83.52 - Hypercalcemia, N18.9 - Chronic kidney disease, unspecified Basic Metabolic Panel 8 Weeks E83.52 - Hypercalcemia, N18.9 - Chronic kidney disease, unspecified Magnesium 8 Weeks E83.52 - Hypercalcemia, N18.9 - Chronic kidney disease, unspecified Basic Metabolic Panel 2 Weeks E83.52 - Hypercalcemia, N18.9 - Chronic kidney disease, unspecified Cortisol, Free 2 Weeks E83.52 - Hypercalcemia, N18.9 - Chronic kidney disease, unspecified Basic Metabolic Panel 4 Weeks E83.52 - Hypercalcemia, N18.9 - Chronic kidney disease, unspecified Parathyroid Hormone Intact 4 Weeks E83.52 - Hypercalcemia, N18.9 - Chronic kidney disease, unspecified Parathyroid Hormone Intact 8 Weeks E83.52 - Hypercalcemia, N18.9 - Chronic kidney disease, unspecified Medications: New cinacalcet 30 mg PO DAILY 90 tabs 1RF Coding Level of Care Code Est Pt Level 4 (62354) Diagnoses CKD (chronic kidney disease) N18.9 Essential hypertension I10 Hypercalcemia E83.52
[2024-02-20 11:15] VITALS: BP 134/60
== END 2024-02-20 11:14 | disposition home or self-care (01) ==
PROVIDERS: PCP Nurse Practitioner Primary Care; Visit Provider Internal Medicine Hypertension Specialist
DX: I12.9 Hypertensive chronic kidney disease with stage 1 through stage 4 chronic kidney disease, or unspecified chronic kidney disease (principal); N18.9 Chronic kidney disease, unspecified; E83.52 Hypercalcemia
CPT/HCPCS: 99214

== ENCOUNTER → 2024-02-20 10:26 | Outpatient (BNVA) | payer MEDICARE, SELFPAY | PROVIDERS: PCP Nurse Practitioner Primary Care; Visit Provider Internal Medicine Hypertension Specialist | DX: I12.9 Hypertensive chronic kidney disease with stage 1 through stage 4 chronic kidney disease, or unspecified chronic kidney disease (principal); N18.9 Chronic kidney disease, unspecified; R91.1 Solitary pulmonary nodule; E83.52 Hypercalcemia | CPT/HCPCS: 99212 ==

== ENCOUNTER 2024-03-10 12:17 | Outpatient (REF) | payer MEDICARE, SELFPAY ==
[2024-03-10 14:14] LABS: Anion Gap 15 (12-20); Blood Urea Nitrogen 17 mg/dL (9-16); Calcium 11.1 mg/dL (8.4-10.2); Carbon Dioxide 27 mmol/L (22-29); Chloride 104 mmol/L (96-108); Estimated Glomerular Filt Rate 47; Glucose Random 113 mg/dL (60-115); Magnesium 1.7 mg/dL (1.6-2.6); Potassium 4.1 mmol/L (3.3-5.1); Sodium 142 mmol/L (135-145)
[2024-03-10 14:21] LABS: Parathyroid Hormone Intact 50.1 pg/mL (8.7-77.1)
[2024-03-21 01:59] LABS: Cortisol, Free 0.42 mcg/dL
== END 2024-03-10 12:18 | disposition home or self-care (01) ==
LOC: HO.LAB 12:17
PROVIDERS: PCP Nurse Practitioner Primary Care; Visit Provider Internal Medicine Hypertension Specialist
DX: N18.9 Chronic kidney disease, unspecified (principal); E83.52 Hypercalcemia; G47.33 Obstructive sleep apnea (adult) (pediatric); R91.1 Solitary pulmonary nodule
CPT/HCPCS: 36415; 80048; 82530; 83735; 83970; 99212

== ENCOUNTER 2024-03-10 12:57 | Outpatient (AMB) | payer MEDICARE, SELFPAY ==
--- NOTE | 2024-03-10 13:00 | A.OFFVIS_ITS ---
Vital Signs 03/10/24 13:01 Height 5 ft 2 in Weight 197 lb 5.019 oz BMI 36.1 BP 128/70 Blood Pressure Location Rt brachial Position Sitting Pulse 99 Pulse Source Doppler Pulse Oximetry (%) 96 Oxygen Delivery Method Room Air Intake Visit Reasons: FAINA/Pulm Nodule Allergies EMELIA Inhibitors Adverse Reaction (Severe, Verified 02/20/24 10:49) Angioedema HPI HPI FAINA/Pulm Nodule: Details: 77-year-old lady, lifetime nonsmoker, with no family history of lung disease, but family history of breast cancer recently admitted and treated for pancreatitis. On CT abdomen obtained to evaluate abdominal pain left basilar pulmonary nodule was noted. Dedicated CT chest did not demonstrate any other nodules. Patient denied unintended weight loss. Patient had an outpatient PET CT that did not demonstrate significant FDG uptake in the previously noted nodule, but has some mild peripheral uptake and also FDG uptake in the rectum. After the last office visit patient was started on CPAP and reports improving sleep apnea symptoms. Her follow-up CT chest is pending for April of 2024. [facility] Medical History Pacemaker at end of battery life Elevated lipase Mass of left lung AV block Type 2 diabetes mellitus with unspecified complications Pacemaker Hypercholesteremia GERD (gastroesophageal reflux disease) Hypothyroid Hypertension Surgical History History of tonsillectomy H/O total knee replacement H/O: hysterectomy Hx of cholecystectomy Family History Mother HTN (hypertension) Heart attack Father No problems noted. Maternal Grandmother Breast cancer Social History Household Members: Spouse Housing: House Do you presently have visiting nurse or other home services: No Alcohol intake: current Alcohol intake frequency: holidays/special occasions only Patient Tobacco Use Status: Never used Tobacco service: No Review of Systems Const Denies daytime sleepiness, Denies excessive sweating, Denies fatigue, Denies fever(s), Denies lethargy, Denies malaise, Denies night sweats, Denies snoring and Denies weight loss Eyes Denies blurry vision and Denies itchy eyes ENT Denies nasal congestion, Denies post nasal drip, Denies sinus pain, Denies sinus pressure and Denies other ( Thrush) Card Denies chest pain, Denies pedal edema, Denies dyspnea, Denies orthopnea and Denies paroxysmal nocturnal dyspnea Resp Denies cough, Denies hemoptysis, Denies excessive phlegm production, Denies dyspnea, Denies snoring and Denies wheezing GI Denies abdominal pain and Denies heartburn Musc Denies myalgias, Denies arthralgias and Denies joint swelling Skin/Breast Denies rash Neuro Denies memory loss and Denies seizure-like activity Psych Denies abnormal sleep pattern, Denies anxiety and Denies memory loss Endo Denies excessive sweating, Denies fatigue and Denies heat intolerance Abe/Lymph Denies easy bruising Aller/Immun Denies itchy eyes, Denies seasonal rhinorrhea and Denies wheezing Physical Exam Vital Signs: Last Vital Signs Pulse 99 03/10/24 13:01 BP 128/70 03/10/24 13:01 Pulse Ox 96 03/10/24 13:01 Oxygen Delivery Method Room Air 03/10/24 13:01 BMI result Body Mass Index 36.1 Const General: no acute distress and alert Nutritional Appearance: not obese Orientation/consciousness: Other orientation findings ( oriented) HEENT Head: Yes atraumatic Eyes General: appearance normal, both eyes and all related structures Sclerae: sclerae normal EOM: EOMs intact bilaterally Neck Neck: Yes supple Lymphatic: no lymphadenopathy noted Resp Effort & Inspection: normal respiratory effort and no use of accessory muscles Auscultation: clear to auscultation bilaterally Cardio Rate: regular rate Rhythm: regular rhythm Heart sounds: no gallops, no murmurs and no rubs Skin General skin exam: other ( warm) Extrem General: No clubbing, No cyanosis and No edema Assessment & Plan Assessment & Plan (1) FAINA (obstructive sleep apnea): Code(s): G47.33 - Obstructive sleep apnea (adult) (pediatric) Category: Medical Plan: Improving symptoms on CPAP therapy. Continue current CPAP therapy. (2) Pulmonary nodule 1 cm or greater in diameter: Code(s): R91.1 - Solitary pulmonary nodule Category: Medical Plan: Negative on PET-CT, follow-up CT chest is pending for April of 2024. Coding Level of Care Code Est Pt Level 4 (14259) Diagnoses FAINA (obstructive sleep apnea) G47.33 Pulmonary nodule 1 cm or greater in diameter R91.1
[2024-03-10 13:01] VITALS: BP 128/70; PULSE 99; O2SAT 96; BMI 36.1
== END 2024-03-10 13:25 | disposition home or self-care (01) ==
LOC: HO.HPS 12:57
PROVIDERS: PCP Nurse Practitioner Primary Care; Visit Provider Internal Medicine Pulmonary Disease
DX: G47.33 Obstructive sleep apnea (adult) (pediatric) (principal); R91.1 Solitary pulmonary nodule
CPT/HCPCS: 99214

== ENCOUNTER 2024-03-23 14:44 | Outpatient (AMB) | payer MEDICARE, SELFPAY ==
[2024-03-23 14:56] VITALS: BP 136/56; PULSE 93; BMI 36.2
--- NOTE | 2024-03-23 14:56 | MHC.OFFVIS ---
Vital Signs 03/23/24 14:56 Height 5 ft 2 in Weight 197 lb 15.602 oz BMI 36.2 BP 136/56 L Blood Pressure Location Lt brachial Position Sitting Pulse 93 Pulse Source Pulse Oximeter Intake Visit Reasons: 10 wk follow up w device ck Patient Services Assistant Required: No Accompanied by: Daughter Allergies EMELIA Inhibitors Adverse Reaction (Severe, Verified 02/20/24 10:49) Angioedema Medication List - Last Reconciled 03/23/24 by Otf Patel MD acetaminophen (Tylenol Extra Strength) 500 mg PO Q6H amlodipine 10 mg PO DAILY biotin 5 mg PO DAILY cinacalcet 30 mg PO DAILY cyanocobalamin (vitamin B-12) (Vitamin B-12) 1,000 mcg PO DAILY levothyroxine 75 mcg PO DAILY@0600 magnesium oxide 400 mg PO BID metformin 500 mg PO DAILY@1700 nystatin (Nystop) 1 appl topical BID PRN omeprazole 40 mg PO DAILY prednisone mg PO PRN psyllium husk (Metamucil) 3 tbsp PO DAILY rosuvastatin 5 mg PO DAILY spironolactone 12.5 mg PO DAILY HPI Comments Details: Annetta Whitlock returns for follow-up. 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 She states that she underwent a pacemaker around [id number]. Subsequently, had a generator change around 2013. Per prior cardiology notes, she has sick sinus syndrome, but primarily AV julian block. Comorbidities include hypertension, dyslipidemia as well as type 2 diabetes. She does not have any known coronary disease or myocardial infarction or cardiomyopathy. Since last seen, she has undergone 1 further generator change. Otherwise, no new complaints. Some shortness of breath which has been chronic and unchanged. [facility] Medical History Pacemaker at end of battery life Elevated lipase Mass of left lung AV block Type 2 diabetes mellitus with unspecified complications Pacemaker Hypercholesteremia GERD (gastroesophageal reflux disease) Hypothyroid Hypertension Surgical History History of tonsillectomy H/O total knee replacement H/O: hysterectomy Hx of cholecystectomy Family History Mother HTN (hypertension) Heart attack Father No problems noted. Maternal Grandmother Breast cancer Social History Household Members: Spouse Housing: House Do you presently have visiting nurse or other home services: No Alcohol intake: current Alcohol intake frequency: holidays/special occasions only Patient Tobacco Use Status: Never used Tobacco service: No Review of Systems Const Denies chills, Denies fatigue, Denies fever(s), Denies weight gain and Denies weight loss ENT Denies dizziness Card Denies chest pain, Denies leg edema, Denies lightheadedness, Denies palpitations, Denies dyspnea on exertion, Denies orthopnea and Denies other Resp Denies cough and Denies dyspnea on exertion GI Denies hematochezia and Denies change in stool character Musc Denies abnormal gait, Denies muscle weakness, Denies numbness, Denies radiating pain into limb and Denies tingling Neuro Denies abnormal gait, Denies dizziness, Denies numbness and Denies tingling Endo Denies fatigue and Denies palpitations Physical Exam Vital Signs: Last Vital Signs Pulse 93 03/23/24 14:56 BP 136/56 L 03/23/24 14:56 BMI result Body Mass Index 36.2 Const General: comfortable and no acute distress Orientation/consciousness: patient oriented x3 HEENT Other: Unremarkable Head: Yes normal to inspection Neck Neck: Yes normal visual inspection Chest Chest palpation & inspection: normal inspection of the chest Resp Auscultation: clear to auscultation bilaterally Cardio Palpation: normal PMI Heart sounds: S1 normal heart sound present, S2 normal heart sound present, no gallops, no murmurs and no rubs GI Palpation (GI): Soft to palpation Back/Spine/Pelvis Other: unremarkable Skin General skin exam: no rashes or lesions noted Neuro General: patient oriented x3 Extrem General: Yes normal to inspection Psych Mental Status: mental status grossly normal Office Procedures Cardiac Device Check Cardiac Device Check Details: Pacemaker interrogated today. Programmed DDD mode. Battery status more than 11 years. Normal lead parameters. No atrial arrhythmias. Atrial pacing 9.7% and ventricular pacing 99.1%. Overall, normal device function. [id number] Cardiac Device Check, pacemaker dual lead Procedure code (CPT) selection complete Assessment & Plan Assessment & Plan (1) Pacemaker: Code(s): Z95.0 - Presence of cardiac pacemaker Category: Medical Plan: Status post generator change. Normally functioning. Can follow this remotely. (2) SOB (shortness of breath): Code(s): R06.02 - Shortness of breath Category: Medical Plan: This has been a chronic issue. No new changes. Last echocardiogram with low-normal LVEF, 50-55% and mild diastolic dysfunction. Myocardial perfusion imaging with reversible perfusion defect in the inferior/inferolateral wall but thought to be from diaphragmatic attenuation artifact and preserved LVEF. No recent concerns. Has been stable. (3) Essential hypertension: Code(s): I10 - Essential (primary) hypertension Category: Medical Plan: Stable. No new changes today. Also has CKD and goes to Nephrology. (4) Type 2 diabetes mellitus with unspecified complications: Code(s): E11.8 - Type 2 diabetes mellitus with unspecified complications Category: Medical Plan: On metformin. Per PCP note, hemoglobin A1c 6.1%. Seems well controlled. Coding Level of Care Code Est Pt Level 4 (74772) Diagnoses Pacemaker Z95.0 SOB (shortness of breath) R06.02 Essential hypertension I10 Type 2 diabetes mellitus with unspecified complications E11.8 CPT Codes Cardiac Device Check - Cardiac Device 2: [id number] Cardiac Device Check, pacemaker dual lead ([id number])
== END 2024-03-23 15:28 | disposition home or self-care (01) ==
PROVIDERS: PCP Nurse Practitioner Primary Care; Visit Provider Internal Medicine
DX: R06.02 Shortness of breath (principal); Z95.0 Presence of cardiac pacemaker; I10 Essential (primary) hypertension; E11.8 Type 2 diabetes mellitus with unspecified complications
CPT/HCPCS: 93280; 99214

== ENCOUNTER → 2024-03-23 14:44 | Outpatient (BNVA) | payer MEDICARE, SELFPAY | PROVIDERS: PCP Nurse Practitioner Primary Care; Visit Provider Internal Medicine | DX: I10 Essential (primary) hypertension (principal); E78.5 Hyperlipidemia, unspecified; E11.8 Type 2 diabetes mellitus with unspecified complications; R06.02 Shortness of breath; Z95.0 Presence of cardiac pacemaker | CPT/HCPCS: 93280; 99212 ==

== ENCOUNTER 2024-03-24 07:46 | Outpatient (REF) | payer MEDICARE, SELFPAY ==
[2024-03-24 08:42] LABS: Parathyroid Hormone Intact 227.1 pg/mL (8.7-77.1)
== END 2024-03-24 07:47 | disposition home or self-care (01) ==
LOC: HO.LAB 07:46
PROVIDERS: PCP Nurse Practitioner Primary Care; Visit Provider Internal Medicine Hypertension Specialist
DX: E83.52 Hypercalcemia (principal); N18.9 Chronic kidney disease, unspecified
CPT/HCPCS: 36415; 83970

== ENCOUNTER 2024-03-27 08:07 | Outpatient (REF) | payer MEDICARE, SELFPAY ==
[2024-03-27 09:18] LABS: Anion Gap 11 (12-20); Blood Urea Nitrogen 20 mg/dL (9-16); Calcium 10.1 mg/dL (8.4-10.2); Carbon Dioxide 27 mmol/L (22-29); Chloride 104 mmol/L (96-108); Estimated Glomerular Filt Rate 40; Glucose Random 122 mg/dL (60-115); Magnesium 1.8 mg/dL (1.6-2.6); Potassium 4.4 mmol/L (3.3-5.1); Sodium 138 mmol/L (135-145)
== END 2024-03-27 08:08 | disposition home or self-care (01) ==
LOC: HO.LAB 08:07
PROVIDERS: PCP Nurse Practitioner Primary Care; Visit Provider Internal Medicine Hypertension Specialist
DX: N18.9 Chronic kidney disease, unspecified (principal); E83.52 Hypercalcemia
CPT/HCPCS: 36415; 80048; 83735; 83970

== ENCOUNTER → 2024-03-28 23:59 | Outpatient (BNV) | payer MEDICARE, SELFPAY ==
--- NOTE | 2024-04-05 09:43 | MHC.OFFVIS ---
Intake Visit Reasons: Remote device check- [employer] Allergies EMELIA Inhibitors Adverse Reaction (Severe, Verified 02/20/24 10:49) Angioedema PFSH Medical History Pacemaker at end of battery life Elevated lipase Mass of left lung AV block Type 2 diabetes mellitus with unspecified complications Pacemaker Hypercholesteremia GERD (gastroesophageal reflux disease) Hypothyroid Hypertension Surgical History History of tonsillectomy H/O total knee replacement H/O: hysterectomy Hx of cholecystectomy Family History Mother HTN (hypertension) Heart attack Father No problems noted. Maternal Grandmother Breast cancer Social History Household Members: Spouse Housing: House Do you presently have visiting nurse or other home services: No Alcohol intake: current Alcohol intake frequency: holidays/special occasions only Patient Tobacco Use Status: Never used Tobacco service: No Office Procedures Cardiac Device Check Cardiac Device Check Details: Date of service- 03/28/2024 ; Battery life >10 years; normal lead parameters; AP 21%; ASSOCIATE DO[employer] 99%; no significant arrhythmias. Overall normal device function. [id number] Cardiac Device Interrogation, pacemaker Procedure code (CPT) selection complete Assessment & Plan Assessment & Plan (1) Pacemaker: Code(s): Z95.0 - Presence of cardiac pacemaker Category: Medical (2) AV block: Code(s): I44.30 - Unspecified atrioventricular block Category: Medical Plan x Coding Level of Care Code Procedure Only Diagnoses Pacemaker Z95.0 AV block I44.30 CPT Codes Cardiac Device Check - Cardiac Device 12: [id number] Cardiac Device Interrogation, pacemaker ([id number])
== END ==
PROVIDERS: PCP Nurse Practitioner Primary Care; Visit Provider Internal Medicine
DX: I44.30 Unspecified atrioventricular block (principal); Z95.0 Presence of cardiac pacemaker
CPT/HCPCS: 93294

== ENCOUNTER 2024-04-17 07:47 | Outpatient (REF) | payer MEDICARE, SELFPAY ==
--- OUTSIDE RECORDS SUMMARY | 2024-04-22 05:04 | XMS_ITS ---
Author Organization [facility] Address [address] [place] [address] Care Team Providers Care Sign Erector Name Role Phone Archie Finch MD Primary Care Provider Cash Casanova [phone] Encounters Encounter Location Date Provider Diagnosis [facility] [address] [place] [address] 03/15/2024 Cash Mercado PLAN OF TREATMENT No Information
--- OUTSIDE RECORDS SUMMARY | 2024-04-22 05:04 | XMS_ITS ---
Author Organization [facility] Address [address] [place] [phone] Care Team Providers Care Formstone Fitter Name Role Phone Archie Finch MD Primary Care Provider Cash Casanova [phone] REASON FOR VISIT out of omeprazole requesting r/f Encounters Encounter Location Date Provider Diagnosis [facility] [address] [place] [id number] 03/26/2024 Cash Mercado PLAN OF TREATMENT No Information
--- OUTSIDE RECORDS SUMMARY | 2024-04-22 05:05 | XMS_ITS | Patient Health Record ---
Author Organization [facility] Address [address] [place] [address] Care Team Providers Care Trestle Mechanic Name Role Phone Archie Finch MD Primary Care Provider Cash Casanova [phone] ALLERGIES Allergen (clinical drug ingredient) Drug/Non Drug Allergy documented on EMR Reaction Allergy Type Onset Date Status angiotensin-converting enzyme inhibitor (FN) EMELIA Inhibitors Unknown Drug Allergy Acti ve RESULTS Component Value Reference Range Notes Glucose, Whole Blood Reviewed date:10/03/2023 09:15:19 AM Interpretation: Performing Lab:[facility], [address] [place] [phone] Notes/Report: Glucose, Whole Blood 128 60-115 mg/dL METER # : [id number] Pathology Reviewed date:10/19/2023 09:51:24 PM Interpretation: Performing Lab:[facility], [address] [place] [phone] Notes/Report: MAMMOGRAM DIGITAL BILATERAL SCREEN Reviewed date:03/03/2024 02:55:11 PM Interpretation:Normal Performing Lab: Notes/Report: Normal REASON FOR REFERRAL No Information MEDICATIONS Medication SIG (Take, Route, Frequency, Duration) Notes Start Date End Date Status Cinacalcet HCl 30 MG 1 tablet with food or after a meal Orally Once a day for 30 day(s) Active metFORMIN HCl 500 MG 1 tablet with meals Orally Twice a day Active Metamucil - 1 packet with 8 ounc es of liquid as needed Orally 3-4 times a week Active Vitamin B-6 Active Prebiotic Product Ac tive Levothyroxine Sodium 75 MCG 1 tablet on an empty stomach in the morning Orally Once a day Active Spironolactone 25 MG 1/2 tablet Orally O nce a day Active Vitamin B12 Active Amlodipine & Diet Manage Prod 1 tablet Orally once a day Active Tylenol 8 Hour 650 MG 2 tablets as neede d Orally every 6 hrs Active Biotin Maximum 19494 MCG as directed Orally Active Rosuvastatin Calcium 5 MG 1 tablet Orall y Once a day for 30 day(s) Active Omeprazole 40 MG 1 Orally Once a day every morning for 90 days Active Magnesium 400 MG as directed Orally Active IMMUNIZATIONS Vaccine Route Administration Date Status Comme nts Influenza Unknown 02/11/2016 Administered Influenza Unknown 02/27/2022 Administered Influenza Unknown 03/05/2023 Administered Pneumococcal Unknown 04/12/2022 Administered SOCIAL HISTORY Sex Assigned At : Social History Observation Description Sex Assigned At Unknown PROBLEMS Problem Type ICD Code Onset Dates Problem Status W/U Status Risk SNOMED Code Notes Problem Epigastric pain (R10.13) Active confirmed Epigastric pain (52801553) Problem Encounter for screening for malignant neoplasm of colon (Z12.11) Active confirmed 146520673 Problem History of adenomatous polyp of colon (Z86.010) Active confirmed 723961475 Problem Ulcer of esophagus without bleeding (K22.10) Active confirmed Ulcer of esopha silva (70883860) Problem Diverticulosis of large intestine without perforation or abscess without bleeding (K57.30) Active confirmed Diverticul ar disease of colon (158706038) Problem Gastroesophageal reflux disease without esophagitis (K21.9) Active confirmed 253702534 Problem Hiatal hernia (K44.9) Active confirmed Hiatal hernia (73403357) Problem Gastritis, chronic (K29.50) Active confirmed Chronic gastrit is (2343355) Problem Abnormal CT scan, colon (R93.3) Active confirmed Computed tomography result abnormal (861642662) Problem Erosive esophagitis (K22.10) Active confirmed Erosive esophagitis (75121141) Problem Irregular bowel habits (R19.8) Active confirmed 419433003 Problem Incontinence of feces, unspecified fecal incontinence type (R15.9) Active confirmed 76830169 Problem Hernia, hiatal (K44.9) Active confirmed Diaphragmatic hernia (94067470) Problem Chronic GERD (K21.9) Active confirmed Gastroesophagea l reflux disease (763870050) VITAL SIGNS Temperature 96.9 degrees Fahrenheit 09/18/2023 Blood pressure diastolic 74 mm Hg 03/03/2024 Height 62.50 in 03/03/2024 Blood pressure systolic 130 mm Hg 03/03/2024 Weight 197 lbs 03/03/2024 BMI 35.45 kg/m2 03/03/2024 Encounters Encounter Location Date Provider Diagnosis [facility] Outpatient [address] [place] [phone] 10/03/[address] scan, co karena R93.3 ; Diverticulosis of large intestine without perforation or abscess without bleeding K57.30 ; Other hemorrhoids K64.8 ; Ulcer of esophagus without bleeding K22.10 ; Hiatal hernia K44.9 ; Gastritis, chronic K29.50 ; Hematemesis K92.0 and Abdominal pain R10.9 [facility] [address] [place] [phone] 10/23/2023 Cash Mercado [facility] [address] [place] [phone] 09/18/[address] scan, co karena R93.3 ; Chronic GERD K21.9 ; Epigastric pain R10.13 and Hiatal hernia K44.9 [facility] [address] [place] [phone] 03/03/2024 Cash Mercado Erosive esophagitis K22.10 and Hernia, hiatal K44.9 [facility] [address] [place] [phone] 09/22/2023 Cash Mercado [facility] [address] [place] [phone] 10/03/2023 Cash Mercado [facility] [address] [place] [phone] 03/15/2024 Cash Mercado [facility] [address] [place] [phone] 03/26/2024 Cash Mercado ASSESSMENTS Encounter Date Diagnosis Assessment Notes Treatment Notes Treatment Clinical Notes 10/03/2023 Diverticulosis of large intestine without perforation or abscess without bleeding (ICD-10 - K57.30) 10/03/[address] scan, colon (ICD-10 - R93.3) 09/18/[address] scan, colon (ICD-10 - R93.3) Stop aspirin for 1 week before the procedures Do not take the Metformin the night before nor on the morning of the procedures Do not take the Spironolactone the day before nor on the day of the procedures Do not take the Sucralfate the night before the procedures 09/18/2023 Chronic GERD (ICD-10 - K21.9) 03/03/2024 Erosive esophagitis (ICD-10 - K22.10) Cut down the Metamucil and/or the Magnesium to see if that cuts down the BM frequency and trouble with the stool incontinence. 03/03/2024 Hernia, hiatal (ICD-10 - K44.9) 10/03/2023 Other hemorrhoids (ICD-10 - K64.8) 09/18/2023 Epigastric pain (ICD-10 - R10.13) 10/03/2023 Ulcer of esophagus without bleeding (ICD-10 - K22.10) 09/18/2023 Hiatal hernia (ICD-10 - K44.9) 10/03/2023 Hiatal hernia (ICD-10 - K44.9) 10/03/2023 Gastritis, chronic (ICD-10 - K29.50) 10/03/2023 Hematemesis (ICD-10 - K92.0) 10/03/2023 Abdominal pain (ICD-10 - R10.9) PLAN OF TREATMENT Future Test Test Name Order Date COLONOSCOPY 02/14/2011 COLONOSCOPY 10/31/2016 UPPER GI ENDOSCOPY 09/18/2023 COLONOSCOPY 09/18/2023 Insurance Providers Payer Name Payer Address Payer Phone Subscriber Number Group Number Insured Name Patient Relationship to Insured Coverage Start Date Coverage End Date [facility] [address] [place] [phone] [id number] LULI DE LUNA Self - patient is the insured MEDICAL (GENERAL) HISTORY Medical History History ICD Code NIDDM Hyperlipidemia Hypertension Pacemaker Arthritis Denies OR,CVA,Lung disease,renal disease Urinary incontinence-mild Hypothyroidism Tubular adenomas removed in 1999--- she had negative colonoscopies in 2005 and 2010 other than some diverticulosis and small internal hemorrhoids; negative colonoscopy in 2016 GERD--upper endoscopy in 200 6 revealed a small to moderate-sized hiatal hernia, but no evidence of any esophagitis or Calvo's esophagus Angioedema from her EMELIA-inhibitor 2023 Pulmonary nodule followed by Dr. Tamez Abnormal PET-CT of rectum, a lthough the above pulmonary nodule was not overly suspicious Colonoscopy in September of 2023 w as negative for any polyps or other abnormality as suggested on the above PET-CT scan Upper endoscopy in September revealed erosive esophagitis and gastritis, with biopsies negative for H. pylori. Also noted was her known small to moderate-sized hiatal hernia. She was started back on her 40 mg of omeprazole daily at that time with good results and relief of her upper GI symptoms. 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 This is being followed by her other physicians. Surgical History Surgery Date(Month/Year) Pacemaker--replaced in 2015 AMAURY Left knee replacement 03/2011 Carpal tunnel release L [employer] R [facility]Y 3rd pacemaker replacement 12/25/2023 Hospitalization History Reason Date(Month/Year)
--- OUTSIDE RECORDS SUMMARY | 2024-04-22 05:05 | XMS_ITS ---
Author Organization [facility] Address [address] [place] [address] Care Team Providers Care Despatch Clerk Name Role Phone Archie Finch MD Primary Care Provider Cash Casanova [phone] ALLERGIES Allergen (clinical drug ingredient) Drug/Non Drug Allergy documented on EMR Reaction Allergy Type Onset Date Status angiotensin-converting enzyme inhibitor (FN) EMELIA Inhibitors Unknown Drug Allergy Acti ve REASON FOR VISIT Patient presents today for gastritis MEDICATIONS Medication SIG (Take, Route, Frequency, Duration) Notes Start Date End Date Status metFORMIN HCl 500 MG 1 tablet with meals Orally Twice a day Active Metamucil - 1 packet with 8 ounc es of liquid as needed Orally 3-4 times a week Active Levothyroxine Sodium 75 MCG 1 tablet on an empty stomach in the morning Orally Once a day Active Omeprazole 40 MG 1 Orally Once a day every morning 10/03/2023 Active Spironolactone 25 MG 1/2 tablet Orally O nce a day Active Amlodipine & Diet Manage Prod 1 tablet Orally once a day Active Tylenol 8 Hour 650 MG 2 tablets as neede d Orally every 6 hrs Active Biotin Maximum 40564 MCG as directed Orally Active Cinacalcet HCl 30 MG 1 tablet with food or after a meal Orally Once a day for 30 day(s) Active Rosuvastatin Calcium 5 MG 1 tablet Orall y Once a day for 30 day(s) Active Magnesium 400 MG as directed Orally Active Vitamin B-6 Active Prebiotic Product Ac tive Vitamin B12 Active PROBLEMS Problem Type ICD Code Onset Dates Problem Status W/U Status Risk SNOMED Code Notes Problem Erosive esophagitis (K22.10) Active confirmed Erosive esophagitis (63389934) Problem Hernia, hiatal (K44.9) Active confirmed Diaphragmatic hernia (38398497) VITAL SIGNS BMI 35.45 kg/m2 03/03/2024 Blood pressure systolic 130 mm Hg 03/03/20 24 Blood pressure diastolic 74 mm Hg 024 Height 62.50 in 03/03/2024 Weight 197 lbs 03/03/2024 Encounters Encounter Location Date Provider Diagnosis [facility] [address] [place] [address] 03/03/2024 Cash Mercado Erosive esophagitis K22.10 and Hernia, hiatal K44.9 ASSESSMENTS Encounter Date Diagnosis Assessment Notes Treatment Notes Treatment Clinical Notes 03/03/2024 Erosive esophagitis (ICD-10 - K22.10) Cut down the Metamucil and/or the Magnesium to see if that cuts down the BM frequency and trouble with the stool incontinence. 03/03/2024 Hernia, hiatal (ICD-10 - K44.9) PLAN OF TREATMENT Medication Medication Name Sig Start Date Stop Date Notes Omeprazole 40 MG 1 Orally Once a day every morning 024 Treatment Notes Assessment Notes Erosive esophagitis Cut down the Metamuc il and/or the Magnesium to see if that cuts down the BM frequency and trouble with the stool incontinence. Next Appt Details Follow Up: prn, Reason: Progress Notes * Examination Category Sub-Category Detail Notes General Examination GENERAL APPEARANCE: pleasant , well nourished, well developed, in no acute distress HEAD: EYES: sclera non-icteric EARS: NOSE: THROAT: NECK/THYROID: no cervical lymphade nopathy, neck supple HEART: S1, S2 normal CHEST: LUNGS: clear to auscultatio n bilaterally ABDOMEN: normal bowel sounds, no guarding or rigidity, no guarding or rigidity, no masses palpable, soft, nontender, nondistended NEUROLOGIC: alert and oriented SKIN: nonjaundiced, no spi ebonie angiomata EXTREMITIES: no edema PERIPHERAL PULSES: BACK: BREASTS: MUSCULOSKELETAL: MALE GENITOURINARY: LYMPH NODES: RECTAL EXAM: FEMALE GENITOURINARY: ORAL CAVITY: mucosa moist
== END 2024-04-17 07:48 | disposition home or self-care (01) ==
LOC: HO.LAB 07:47
PROVIDERS: PCP Nurse Practitioner Primary Care; Visit Provider Internal Medicine Hypertension Specialist
DX: Z13.89 Encounter for screening for other disorder (principal)

== ENCOUNTER 2024-04-27 08:35 | Outpatient (REF) | payer MEDICARE, SELFPAY | END 2024-04-27 08:36 | disposition home or self-care (01) | LOC: HO.CT 08:35 | PROVIDERS: PCP Nurse Practitioner Primary Care; Visit Provider Internal Medicine Pulmonary Disease | DX: R91.1 Solitary pulmonary nodule (principal) | CPT/HCPCS: 71250 ==

== ENCOUNTER → 2024-04-27 08:37 | Outpatient (BNV) | payer MEDICARE, SELFPAY | PROVIDERS: PCP Nurse Practitioner Primary Care; Visit Provider Radiology Diagnostic Radiology | DX: R91.1 Solitary pulmonary nodule (principal) | CPT/HCPCS: 71250 ==

== ENCOUNTER 2024-04-27 08:53 | Outpatient (REF) | payer MEDICARE, SELFPAY ==
[2024-04-27 10:12] LABS: Anion Gap 13 (12-20); Blood Urea Nitrogen 18 mg/dL (9-16); Calcium 10.7 mg/dL (8.4-10.2); Carbon Dioxide 26 mmol/L (22-29); Chloride 106 mmol/L (96-108); Estimated Glomerular Filt Rate 41; Glucose Random 112 mg/dL (60-115); Magnesium 1.5 mg/dL (1.6-2.6); Potassium 4.4 mmol/L (3.3-5.1); Sodium 141 mmol/L (135-145)
[2024-04-27 11:40] LABS: Parathyroid Hormone Intact 217.2 pg/mL (8.7-77.1)
== END 2024-04-27 08:54 | disposition home or self-care (01) ==
LOC: HO.LAB 08:53
PROVIDERS: PCP Nurse Practitioner Primary Care; Referring Provider Nurse Practitioner Family; Visit Provider Internal Medicine Hypertension Specialist
DX: N18.30 Chronic kidney disease, stage 3 unspecified (principal); E21.3 Hyperparathyroidism, unspecified
CPT/HCPCS: 36415; 80048; 83735; 83970

== ENCOUNTER 2024-05-04 06:58 | Outpatient (REF) | payer MEDICARE, SELFPAY ==
--- OUTSIDE RECORDS SUMMARY | 2024-05-04 07:01 | XMS_ITS | Patient Health Record ---
Author Organization [facility] Address [address] [place] [address] Care Team Providers Care Rn Referral Name Role Phone Archie Finch MD Primary Care Provider Cash Casanova [phone] ALLERGIES Allergen (clinical drug ingredient) Drug/Non Drug Allergy documented on EMR Reaction Allergy Type Onset Date Status angiotensin-converting enzyme inhibitor (FN) EMELIA Inhibitors Unknown Drug Allergy Acti ve RESULTS Component Value Reference Range Notes Glucose, Whole Blood Reviewed date:10/03/2023 09:15:19 AM Interpretation: Performing Lab:[facility], [address] [place] [phone] Notes/Report: Glucose, Whole Blood 128 60-115 mg/dL METER # : [id number] Pathology Reviewed date:10/19/2023 09:51:24 PM Interpretation: Performing Lab:[facility], [address] [place] [phone] Notes/Report: MAMMOGRAM DIGITAL BILATERAL SCREEN Reviewed date:03/03/2024 [...] Orally every 6 hrs Active Biotin Maximum 75586 MCG as directed Orally Active Rosuvastatin Calcium [...] Epigastric pain (R10.13) Active confirmed Epigastric pain (61917737) Problem Encounter for screening for malignant neoplasm of colon (Z12.11) Active confirmed 232828851 Problem History of adenomatous polyp of colon (Z86.010) Active confirmed 891316323 Problem Ulcer of esophagus without bleeding (K22.10) Active confirmed Ulcer of esopha silva (41707821) Problem Diverticulosis of large intestine without perforation or abscess without bleeding (K57.30) Active confirmed Diverticul ar disease of colon (202497456) Problem Gastroesophageal reflux disease without esophagitis (K21.9) Active confirmed 092226928 Problem Hiatal hernia (K44.9) Active confirmed Hiatal hernia (31715335) Problem Gastritis, chronic (K29.50) Active confirmed Chronic gastrit is (4763634) Problem Abnormal CT scan, colon (R93.3) Active confirmed Computed tomography result abnormal (103499702) Problem Erosive esophagitis (K22.10) Active confirmed Erosive esophagitis (91279017) Problem Irregular bowel habits (R19.8) Active confirmed 665827033 Problem Incontinence of feces, unspecified fecal incontinence type (R15.9) Active confirmed 30875445 Problem Hernia, hiatal (K44.9) Active confirmed Diaphragmatic hernia (51278827) Problem Chronic GERD (K21.9) Active confirmed Gastroesophagea l reflux disease (390425965) VITAL SIGNS Temperature 96.9 degrees Fahrenheit 09/18/2023 Blood pressure diastolic 74 mm Hg 03/03/2024 Height 62.50 in 03/03/2024 Blood pressure systolic 130 mm Hg 03/03/2024 Weight 197 lbs 03/03/2024 BMI 35.45 kg/m2 03/03/2024 Encounters Encounter Location Date Provider Diagnosis [facility] Outpatient [address] [place] [phone] 10/03/[address] scan, co karena R93.3 ; Diverticulosis of large intestine without perforation or abscess without bleeding K57.30 ; Other hemorrhoids K64.8 ; Ulcer of esophagus without bleeding K22.10 ; Hiatal hernia K44.9 ; Gastritis, chronic K29.50 ; Hematemesis K92.0 and Abdominal pain R10.9 [facility] [address] [place] [phone] 10/23/2023 Cash Mercado [facility] [address] [place] [phone] 09/18/[address] scan, co karena R93.3 ; Chronic GERD K21.9 ; Epigastric pain R10.13 and Hiatal hernia K44.9 [facility] [address] [place] [phone] 03/03/2024 Cash Mercado Erosive esophagitis K22.10 and Hernia, hiatal K44.9 [facility] [address] [place] [phone] 09/22/2023 Cash Mercado [facility] [address] [place] [phone] 10/03/2023 Cash Mercado [facility] [address] [place] [phone] 03/15/2024 Cash Mercado [facility] [address] [place] [phone] 03/26/2024 Cash Mercado ASSESSMENTS Encounter Date Diagnosis [...] Insured Coverage Start Date Coverage End Date [facility] [address] [place] [phone] [id number] LULI DE LUNA Self - patient is the insured MEDICAL (GENERAL) HISTORY Medical History History ICD Code NIDDM Hyperlipidemia Hypertension Pacemaker Arthritis Denies HI,CVA,Lung disease,renal disease Urinary incontinence-mild Hypothyroidism Tubular adenomas [...]
--- OUTSIDE RECORDS SUMMARY | 2024-05-04 07:01 | XMS_ITS ---
Author Organization [facility] Address [address] [place] [address] Care Team Providers Care Health Technician Hearing Name Role Phone Archie Finch MD Primary Care Provider Cash Casanova [phone] ALLERGIES Allergen (clinical drug ingredient) Drug/Non Drug [...] Orally every 6 hrs Active Biotin Maximum 57810 MCG as directed Orally Active Cinacalcet HCl [...] Erosive esophagitis (K22.10) Active confirmed Erosive esophagitis (62089345) Problem Hernia, hiatal (K44.9) Active confirmed Diaphragmatic hernia (89912614) VITAL SIGNS BMI 35.45 kg/m2 03/03/2024 Blood pressure systolic 130 mm Hg 03/03/20 24 Blood pressure diastolic 74 mm Hg 024 Height 62.50 in 03/03/2024 Weight 197 lbs 03/03/2024 Encounters Encounter Location Date Provider Diagnosis [facility] [address] [place] [address] 03/03/2024 Cash Mercado Erosive esophagitis K22.10 and [...]
--- OUTSIDE RECORDS SUMMARY | 2024-05-04 07:01 | XMS_ITS ---
Author Organization [facility] Address [address] [place] [address] Care Team Providers Care Club Licensee Name Role Phone Archie Finch MD Primary Care Provider Cash Casanova [phone] Encounters Encounter Location Date Provider Diagnosis [facility] [address] [place] [address] 03/15/2024 Cash Mercado PLAN OF TREATMENT No Information
[2024-05-04 10:14] LABS: Magnesium 1.4 mg/dL (1.6-2.6)
== END 2024-05-04 06:59 | disposition home or self-care (01) ==
LOC: HO.LAB 06:58
PROVIDERS: PCP Nurse Practitioner Primary Care; Visit Provider Nurse Practitioner Primary Care
DX: E21.3 Hyperparathyroidism, unspecified (principal); E03.9 Hypothyroidism, unspecified; I10 Essential (primary) hypertension
CPT/HCPCS: 36415; 83735

== ENCOUNTER 2024-05-15 07:35 | Outpatient (REF) | payer MEDICARE, SELFPAY ==
--- OUTSIDE RECORDS SUMMARY | 2024-05-15 07:37 | XMS_ITS ---
Author Organization [facility] Address [address] [place] [address] Care Team Providers Care Wooden Shade Hardware Installer Name Role Phone Archie Finch MD Primary Care Provider Cash Casanova [phone] ALLERGIES Allergen (clinical drug ingredient) Drug/Non Drug [...] Orally every 6 hrs Active Biotin Maximum 87536 MCG as directed Orally Active Cinacalcet HCl [...] Erosive esophagitis (K22.10) Active confirmed Erosive esophagitis (34469716) Problem Hernia, hiatal (K44.9) Active confirmed Diaphragmatic hernia (23317572) VITAL SIGNS BMI 35.45 kg/m2 03/03/2024 Blood pressure systolic 130 mm Hg 03/03/20 24 Blood pressure diastolic 74 mm Hg 024 Height 62.50 in 03/03/2024 Weight 197 lbs 03/03/2024 Encounters Encounter Location Date Provider Diagnosis [facility] [address] [place] [address] 03/03/2024 Cash Mercado Erosive esophagitis K22.10 and [...]
--- OUTSIDE RECORDS SUMMARY | 2024-05-15 07:37 | XMS_ITS ---
Author Organization [facility] Address [address] [place] [address] Care Team Providers Care Electrical Logging Engineer Name Role Phone Archie Finch MD Primary Care Provider Cash Casanova [phone] Encounters Encounter Location Date Provider Diagnosis [facility] [address] [place] [address] 03/15/2024 Cash Mercado PLAN OF TREATMENT No Information
--- OUTSIDE RECORDS SUMMARY | 2024-05-15 07:37 | XMS_ITS | Patient Health Record ---
Author Organization [facility] Address [address] [place] [address] Care Team Providers Care Public Health Educator Name Role Phone Archie Finch MD Primary Care Provider Cash Casanova [phone] ALLERGIES Allergen (clinical drug ingredient) Drug/Non Drug Allergy documented on EMR Reaction Allergy Type Onset Date Status angiotensin-converting enzyme inhibitor (FN) EMELIA Inhibitors Unknown Drug Allergy Acti ve RESULTS Component Value Reference Range Notes Glucose, Whole Blood Reviewed date:10/03/2023 09:15:19 AM Interpretation: Performing Lab:[facility], [address] [place] [phone] Notes/Report: Glucose, Whole Blood 128 60-115 mg/dL METER # : [id number] Pathology Reviewed date:10/19/2023 09:51:24 PM Interpretation: Performing Lab:[facility], [address] [place] [phone] Notes/Report: MAMMOGRAM DIGITAL BILATERAL SCREEN Reviewed date:03/03/2024 [...] Orally every 6 hrs Active Biotin Maximum 31395 MCG as directed Orally Active Rosuvastatin Calcium [...] Epigastric pain (R10.13) Active confirmed Epigastric pain (46881892) Problem Encounter for screening for malignant neoplasm of colon (Z12.11) Active confirmed 962766662 Problem History of adenomatous polyp of colon (Z86.010) Active confirmed 807619368 Problem Ulcer of esophagus without bleeding (K22.10) Active confirmed Ulcer of esopha silva (83813007) Problem Diverticulosis of large intestine without perforation or abscess without bleeding (K57.30) Active confirmed Diverticul ar disease of colon (284770694) Problem Gastroesophageal reflux disease without esophagitis (K21.9) Active confirmed 751673272 Problem Hiatal hernia (K44.9) Active confirmed Hiatal hernia (29259925) Problem Gastritis, chronic (K29.50) Active confirmed Chronic gastrit is (6072988) Problem Abnormal CT scan, colon (R93.3) Active confirmed Computed tomography result abnormal (231948458) Problem Erosive esophagitis (K22.10) Active confirmed Erosive esophagitis (46291275) Problem Irregular bowel habits (R19.8) Active confirmed 007297452 Problem Incontinence of feces, unspecified fecal incontinence type (R15.9) Active confirmed 43696053 Problem Hernia, hiatal (K44.9) Active confirmed Diaphragmatic hernia (53528158) Problem Chronic GERD (K21.9) Active confirmed Gastroesophagea l reflux disease (127267757) VITAL SIGNS Temperature 96.9 degrees Fahrenheit 09/18/2023 Blood pressure diastolic 74 mm Hg 03/03/2024 Height 62.50 in 03/03/2024 Blood pressure systolic 130 mm Hg 03/03/2024 Weight 197 lbs 03/03/2024 BMI 35.45 kg/m2 03/03/2024 Encounters Encounter Location Date Provider Diagnosis [facility] Outpatient [address] [place] [phone] 10/03/[address] scan, co karena R93.3 ; Diverticulosis of large intestine without perforation or abscess without bleeding K57.30 ; Other hemorrhoids K64.8 ; Ulcer of esophagus without bleeding K22.10 ; Hiatal hernia K44.9 ; Gastritis, chronic K29.50 ; Hematemesis K92.0 and Abdominal pain R10.9 [facility] [address] [place] [phone] 10/23/2023 Cash Mercado [facility] [address] [place] [phone] 09/18/[address] scan, co karena R93.3 ; Chronic GERD K21.9 ; Epigastric pain R10.13 and Hiatal hernia K44.9 [facility] [address] [place] [phone] 03/03/2024 Cash Mercado Erosive esophagitis K22.10 and Hernia, hiatal K44.9 [facility] [address] [place] [phone] 09/22/2023 Cash Mercado [facility] [address] [place] [phone] 10/03/2023 Cash Mercado [facility] [address] [place] [phone] 03/15/2024 Cash Mercado [facility] [address] [place] [phone] 03/26/2024 Cash Mercado ASSESSMENTS Encounter Date Diagnosis [...] Insured Coverage Start Date Coverage End Date [facility] [address] [place] [address] [phone] [id number] LULI DE LUNA Self - patient is the insured MEDICAL (GENERAL) HISTORY Medical History History ICD Code NIDDM Hyperlipidemia Hypertension Pacemaker Arthritis Denies [place],CVA,Lung disease,renal disease Urinary incontinence-mild Hypothyroidism Tubular adenomas [...]
[2024-05-15 09:10] LABS: Parathyroid Hormone Intact 200.1 pg/mL (8.7-77.1)
== END 2024-05-15 07:36 | disposition home or self-care (01) ==
LOC: HO.LAB 07:35
PROVIDERS: PCP Nurse Practitioner Primary Care; Visit Provider Internal Medicine Hypertension Specialist
DX: I10 Essential (primary) hypertension (principal); N18.9 Chronic kidney disease, unspecified
CPT/HCPCS: 36415; 83970

== ENCOUNTER 2024-05-16 07:34 | Outpatient (REF) | payer MEDICARE, SELFPAY ==
--- OUTSIDE RECORDS SUMMARY | 2024-05-16 07:36 | XMS_ITS ---
Author Organization [facility] Address [address] [place] [address] Care Team Providers Care Control Room Operator Name Role Phone Archie Finch MD Primary Care Provider Cash Casanova [phone] Encounters Encounter Location Date Provider Diagnosis [facility] [address] [place] [address] 03/15/2024 Cash Mercado PLAN OF TREATMENT No Information
--- OUTSIDE RECORDS SUMMARY | 2024-05-16 07:36 | XMS_ITS ---
Author Organization [facility] Address [address] [place] [address] Care Team Providers Care Field Rep Name Role Phone Archie Finch MD Primary Care Provider Cash Casanova [phone] ALLERGIES Allergen (clinical drug ingredient) Drug/Non Drug [...] Orally every 6 hrs Active Biotin Maximum 16775 MCG as directed Orally Active Cinacalcet HCl [...] Erosive esophagitis (K22.10) Active confirmed Erosive esophagitis (21278968) Problem Hernia, hiatal (K44.9) Active confirmed Diaphragmatic hernia (05997921) VITAL SIGNS BMI 35.45 kg/m2 03/03/2024 Blood pressure systolic 130 mm Hg 03/03/20 24 Blood pressure diastolic 74 mm Hg 024 Height 62.50 in 03/03/2024 Weight 197 lbs 03/03/2024 Encounters Encounter Location Date Provider Diagnosis [facility] [address] [place] [address] 03/03/2024 Cash Mercado Erosive esophagitis K22.10 and [...]
--- OUTSIDE RECORDS SUMMARY | 2024-05-16 07:36 | XMS_ITS ---
Author Organization [facility] Address [address] [place] [address] Care Team Providers Care Hot Mix Operator Name Role Phone Archie Finch MD Primary Care Provider Cash Casanova [phone] REASON FOR VISIT out of omeprazole requesting r/f Encounters Encounter Location Date Provider Diagnosis [facility] [address] [place] [phone] 03/26/2024 Cash Mercado PLAN OF TREATMENT No Information
--- OUTSIDE RECORDS SUMMARY | 2024-05-16 07:37 | XMS_ITS | Patient Health Record ---
Author Organization [facility] Address [address] [place] [address] Care Team Providers Care Insurance Follow Up Specialist Name Role Phone Archie Finch MD Primary Care Provider Cash Casanova [phone] ALLERGIES Allergen (clinical drug ingredient) Drug/Non Drug Allergy documented on EMR Reaction Allergy Type Onset Date Status angiotensin-converting enzyme inhibitor (FN) EMELIA Inhibitors Unknown Drug Allergy Acti ve RESULTS Component Value Reference Range Notes Glucose, Whole Blood Reviewed date:10/03/2023 09:15:19 AM Interpretation: Performing Lab:[facility], [address] [place] [phone] Notes/Report: Glucose, Whole Blood 128 60-115 mg/dL METER # : [id number] Pathology Reviewed date:10/19/2023 09:51:24 PM Interpretation: Performing Lab:[facility], [address] [place] [phone] Notes/Report: MAMMOGRAM DIGITAL BILATERAL SCREEN Reviewed date:03/03/2024 [...] Orally every 6 hrs Active Biotin Maximum 97635 MCG as directed Orally Active Rosuvastatin Calcium [...] Epigastric pain (R10.13) Active confirmed Epigastric pain (79932518) Problem Encounter for screening for malignant neoplasm of colon (Z12.11) Active confirmed 481498013 Problem History of adenomatous polyp of colon (Z86.010) Active confirmed 167496451 Problem Ulcer of esophagus without bleeding (K22.10) Active confirmed Ulcer of esopha silva (78111676) Problem Diverticulosis of large intestine without perforation or abscess without bleeding (K57.30) Active confirmed Diverticul ar disease of colon (838670824) Problem Gastroesophageal reflux disease without esophagitis (K21.9) Active confirmed 433880688 Problem Hiatal hernia (K44.9) Active confirmed Hiatal hernia (60921509) Problem Gastritis, chronic (K29.50) Active confirmed Chronic gastrit is (7006258) Problem Abnormal CT scan, colon (R93.3) Active confirmed Computed tomography result abnormal (866872783) Problem Erosive esophagitis (K22.10) Active confirmed Erosive esophagitis (56261806) Problem Irregular bowel habits (R19.8) Active confirmed 587067072 Problem Incontinence of feces, unspecified fecal incontinence type (R15.9) Active confirmed 59604160 Problem Hernia, hiatal (K44.9) Active confirmed Diaphragmatic hernia (52859042) Problem Chronic GERD (K21.9) Active confirmed Gastroesophagea l reflux disease (841770889) VITAL SIGNS Temperature 96.9 degrees Fahrenheit 09/18/2023 Blood pressure diastolic 74 mm Hg 03/03/2024 Height 62.50 in 03/03/2024 Blood pressure systolic 130 mm Hg 03/03/2024 Weight 197 lbs 03/03/2024 BMI 35.45 kg/m2 03/03/2024 Encounters Encounter Location Date Provider Diagnosis [facility] Outpatient [address] [place] [phone] 10/03/[address] scan, co karena R93.3 ; Diverticulosis of large intestine without perforation or abscess without bleeding K57.30 ; Other hemorrhoids K64.8 ; Ulcer of esophagus without bleeding K22.10 ; Hiatal hernia K44.9 ; Gastritis, chronic K29.50 ; Hematemesis K92.0 and Abdominal pain R10.9 [facility] [address] [place] [phone] 10/23/2023 Cash Mercado [facility] [address] [place] [phone] 09/18/[address] scan, co karena R93.3 ; Chronic GERD K21.9 ; Epigastric pain R10.13 and Hiatal hernia K44.9 [facility] [address] [place] [phone] 03/03/2024 Cash Mercado Erosive esophagitis K22.10 and Hernia, hiatal K44.9 [facility] [address] [place] [phone] 09/22/2023 Cash Mercado [facility] [address] [place] [phone] 10/03/2023 Cash Mercado [facility] [address] [place] [phone] 03/15/2024 Cash Mercado [facility] [address] [place] [phone] 03/26/2024 Cash Mercado ASSESSMENTS Encounter Date Diagnosis [...] Insured Coverage Start Date Coverage End Date [facility] [address] [place] [address] [id number] LULI DE LUNA Self - patient is the insured MEDICAL (GENERAL) HISTORY Medical History History ICD Code NIDDM Hyperlipidemia Hypertension Pacemaker Arthritis Denies [place],CVA,Lung disease,renal disease Urinary incontinence-mild Hypothyroidism Tubular adenomas [...]
[2024-05-16 08:38] LABS: Magnesium 1.5 mg/dL (1.6-2.6)
== END 2024-05-16 07:35 | disposition home or self-care (01) ==
LOC: HO.LABR 07:34
PROVIDERS: PCP Nurse Practitioner Primary Care; Visit Provider Nurse Practitioner Primary Care
DX: E21.3 Hyperparathyroidism, unspecified (principal); E03.9 Hypothyroidism, unspecified; I10 Essential (primary) hypertension
CPT/HCPCS: 36415; 83735

== ENCOUNTER 2024-05-18 11:32 | Outpatient (AMB) | payer MEDICARE, SELFPAY ==
[2024-05-18 11:34] VITALS: BP 130/66; PULSE 94; O2SAT 97; BMI 36.8
--- NOTE | 2024-05-18 11:34 | HO.NEPHOV ---
Vital Signs 05/18/24 11:34 Height 5 ft 2 in Weight 201 lb BMI 36.8 BP 130/66 Blood Pressure Location Rt brachial Position Sitting Pulse 94 Pulse Source Pulse Oximeter Pulse Oximetry (%) 97 Oxygen Delivery Method Room Air Intake Visit Reasons: CKD/CONF Natural History Collections Curator Required: No Accompanied by: Spouse Allergies EMELIA Inhibitors Adverse Reaction (Severe, Verified 05/18/24 11:37) Angioedema Medication List - Last Reconciled 05/18/24 by Arsen Villegas MD acetaminophen (Tylenol Extra Strength) 500 mg PO Q6H amlodipine 10 mg PO DAILY biotin 5 mg PO DAILY cinacalcet 30 mg PO BID cyanocobalamin (vitamin B-12) (Vitamin B-12) 1,000 mcg PO DAILY levothyroxine 75 mcg PO DAILY@0600 magnesium oxide 500 mg PO BID metformin 500 mg PO DAILY@1700 nystatin (Nystop) 1 appl topical BID PRN omeprazole 40 mg PO DAILY prednisone 40 mg PO PRN psyllium husk (Metamucil) 3 tbsp PO DAILY rosuvastatin 5 mg PO DAILY spironolactone 12.5 mg PO DAILY HPI Comments Details: Elderly woman with a history of CKD in a setting of longstanding hypertension and diabetes mellitus. Recently she had an episode of gout. This was treated with prednisone. No uric acid levels are available. She has persistent hypercalcemia 09/23/23 Recently she had an episode of vertigo She was seen in the ER. Subsequently she was found to have swelling in the epiglottis area. This was thought to be angioedema due to EMELIA inhibitor. Benazepril was discontinued. Swelling is resolved. She was having nausea and epigastric discomfort and was readmitted to [facility] she was initially diagnosed with pancreatitis. She had persistent hypomagnesemia. Proton pump inhibitor was discontinued. She is on magnesium supplementation. Over the last few days she thought the nausea was related to the cinacalcet. She is stopped cinacalcet 2 days ago and the nausea has improved. During the workup she was found to have a lung nodule. She is being followed by Dr. Tamez PET scan showed benign lesion 01/07/24 Doing OK Pacemaker was changed MgO was decreased to 2 a day from 3 05/18/24 Persistent hypomagnesemia she has not taken the increased dose of Cinacalcet yet [facility] Medical History Pacemaker at end of battery life Elevated lipase Mass of left lung AV block Type 2 diabetes mellitus with unspecified complications Pacemaker Hypercholesteremia GERD (gastroesophageal reflux disease) Hypothyroid Hypertension Surgical History History of tonsillectomy H/O total knee replacement H/O: hysterectomy Hx of cholecystectomy Family History Mother HTN (hypertension) Heart attack Father No problems noted. Maternal Grandmother Breast cancer Social History Household Members: Spouse Housing: House Do you presently have visiting nurse or other home services: No Alcohol intake: current Alcohol intake frequency: holidays/special occasions only Patient Tobacco Use Status: Never used Tobacco service: No Physical Exam Vital Signs: Last Vital Signs Pulse 94 05/18/24 11:34 BP 130/66 05/18/24 11:34 Pulse Ox 97 05/18/24 11:34 Oxygen Delivery Method Room Air 05/18/24 11:34 BMI result Body Mass Index 36.8 Comfortable Neck supple no JVD. Lungs entry equal no rales. Heart S1-S2 heard no gallop or rub. Abdomen soft nontender. Neuro alert awake oriented. No asterixis. Extremities no edema. Results Reviewed Nephrology Results: Sodium 141 mmol/L (135-145) 04/27/24 Potassium 4.4 mmol/L (3.3-5.1) 04/27/24 Chloride 106 mmol/L (96-108) 04/27/24 Carbon Dioxide 26 mmol/L (22-29) 04/27/24 BUN 18 mg/dL (9-16) H 04/27/24 Creatinine 1.26 mg/dL (0.5-1.4) 04/27/24 Calcium 10.7 mg/dL (8.4-10.2) H 04/27/24 PTH Intact 200.1 pg/mL (8.7-77.1) H 05/15/24 Assessment & Plan Assessment & Plan (1) Hyperparathyroidism: Code(s): E21.3 - Hyperparathyroidism, unspecified Category: Medical (2) CKD (chronic kidney disease): Code(s): N18.9 - Chronic kidney disease, unspecified Category: Medical (3) Essential hypertension: Code(s): I10 - Essential (primary) hypertension Category: Medical Plan: Blood pressure is well controlled No changes were made to medications low-salt diet . (4) Hypercalcemia: Code(s): E83.52 - Hypercalcemia Category: Medical Plan: h/o hypercalcemia with elevated PTH suggestive of primary hyperparathyroidism. Hypomagnesemia. This may be due to the combination of using proton pump inhibitor and cinacalcet.. Since she has not tolerating cinacalcet, it was discontinued. Ordered serum calcium and parathyroid hormone levels today. For now we will continue the magnesium supplementation and we can gradually start tapering the supplemental dose. 01/07/24 Ordered parathyroid scan She is willing to try cinacalcet again if needed, after the scan . Plan 02/20/24 Parathryoid scan shows adenoma She has primary hyperparathyroidism Discussed surgical option Given the comorbids including cardiac status surgical vs medical management was discused She wants try cinacalcet one more time Started Cinacalcet 30 mcg QD Check Ca/Mg.PTH in 2 weeks, 4 weeks and 8 weeks 05/18/24 Primary hyperparathyroidism Persistent Hypercalcemia and hypomagnesemia while on Cinacalcet She is agreeable for surgery Will refer Orders: Orders Basic Metabolic Panel 1 Month E21.3 - Hyperparathyroidism, unspecified Parathyroid Hormone Intact 1 Month E21.3 - Hyperparathyroidism, unspecified Magnesium 1 Month E21.3 - Hyperparathyroidism, unspecified Referrals General Surgery Referral E21.3 - Hyperparathyroidism, unspecified Coding Level of Care Code Est Pt Level 4 (37747) Diagnoses Hyperparathyroidism E21.3 CKD (chronic kidney disease) N18.9 Essential hypertension I10 Hypercalcemia E83.52
--- OUTSIDE RECORDS SUMMARY | 2024-05-18 13:18 | XMS_ITS ---
Author Organization [facility] Address [address] [place] [address] Care Team Providers Care Early Interventionist Name Role Phone Archie Finch MD Primary Care Provider Cash Casanova [phone] Encounters Encounter Location Date Provider Diagnosis [facility] [address] [place] [address] 03/15/2024 Cash Mercado PLAN OF TREATMENT No Information
--- OUTSIDE RECORDS SUMMARY | 2024-05-18 13:18 | XMS_ITS ---
Author Organization [facility] Address [address] [place] [address] Care Team Providers Care Tip Tester Name Role Phone Archie Finch MD Primary Care Provider Cash Casanova [phone] REASON FOR VISIT out of omeprazole requesting r/f Encounters Encounter Location Date Provider Diagnosis [facility] [address] [place] [phone] 03/26/2024 Cash Mercado PLAN OF TREATMENT No Information
--- OUTSIDE RECORDS SUMMARY | 2024-05-18 13:18 | XMS_ITS ---
Author Organization [facility] Address [address] [place] [address] Care Team Providers Care Raw Stock Dyeing Machine Tender Name Role Phone Archie Finch MD Primary Care Provider Cash Casanova [phone] ALLERGIES Allergen (clinical drug ingredient) Drug/Non Drug [...] Orally every 6 hrs Active Biotin Maximum 94671 MCG as directed Orally Active Cinacalcet HCl [...] Erosive esophagitis (K22.10) Active confirmed Erosive esophagitis (11236484) Problem Hernia, hiatal (K44.9) Active confirmed Diaphragmatic hernia (47803643) VITAL SIGNS BMI 35.45 kg/m2 03/03/2024 Blood pressure systolic 130 mm Hg 03/03/20 24 Blood pressure diastolic 74 mm Hg 024 Height 62.50 in 03/03/2024 Weight 197 lbs 03/03/2024 Encounters Encounter Location Date Provider Diagnosis [facility] [address] [place] [address] 03/03/2024 Cash Mercado Erosive esophagitis K22.10 and [...]
--- OUTSIDE RECORDS SUMMARY | 2024-05-18 13:19 | XMS_ITS | Patient Health Record ---
Author Organization [facility] Address [address] [place] [address] Care Team Providers Care Electric Appliance Installer Name Role Phone Archie Finch MD Primary Care Provider Cash Casanova [phone] ALLERGIES Allergen (clinical drug ingredient) Drug/Non Drug Allergy documented on EMR Reaction Allergy Type Onset Date Status angiotensin-converting enzyme inhibitor (FN) EMELIA Inhibitors Unknown Drug Allergy Acti ve RESULTS Component Value Reference Range Notes Glucose, Whole Blood Reviewed date:10/03/2023 09:15:19 AM Interpretation: Performing Lab:[facility], [address] [place] [phone] Notes/Report: Glucose, Whole Blood 128 60-115 mg/dL METER # : [id number] Pathology Reviewed date:10/19/2023 09:51:24 PM Interpretation: Performing Lab:[facility], [address] [place] [phone] Notes/Report: MAMMOGRAM DIGITAL BILATERAL SCREEN Reviewed date:03/03/2024 [...] Orally every 6 hrs Active Biotin Maximum 48626 MCG as directed Orally Active Rosuvastatin Calcium [...] Epigastric pain (R10.13) Active confirmed Epigastric pain (38825233) Problem Encounter for screening for malignant neoplasm of colon (Z12.11) Active confirmed 147414557 Problem History of adenomatous polyp of colon (Z86.010) Active confirmed 659549535 Problem Ulcer of esophagus without bleeding (K22.10) Active confirmed Ulcer of esopha silva (95851030) Problem Diverticulosis of large intestine without perforation or abscess without bleeding (K57.30) Active confirmed Diverticul ar disease of colon (586861145) Problem Gastroesophageal reflux disease without esophagitis (K21.9) Active confirmed 583134058 Problem Hiatal hernia (K44.9) Active confirmed Hiatal hernia (64841609) Problem Gastritis, chronic (K29.50) Active confirmed Chronic gastrit is (9182334) Problem Abnormal CT scan, colon (R93.3) Active confirmed Computed tomography result abnormal (634093741) Problem Erosive esophagitis (K22.10) Active confirmed Erosive esophagitis (71094246) Problem Irregular bowel habits (R19.8) Active confirmed 883006051 Problem Incontinence of feces, unspecified fecal incontinence type (R15.9) Active confirmed 82342897 Problem Hernia, hiatal (K44.9) Active confirmed Diaphragmatic hernia (88331160) Problem Chronic GERD (K21.9) Active confirmed Gastroesophagea l reflux disease (143927103) VITAL SIGNS Temperature 96.9 degrees Fahrenheit 09/18/2023 Blood pressure diastolic 74 mm Hg 03/03/2024 Height 62.50 in 03/03/2024 Blood pressure systolic 130 mm Hg 03/03/2024 Weight 197 lbs 03/03/2024 BMI 35.45 kg/m2 03/03/2024 Encounters Encounter Location Date Provider Diagnosis [facility] [place] Outpatient [address] [place] [phone] 10/03/[address] scan, co karena R93.3 ; Diverticulosis of large intestine without perforation or abscess without bleeding K57.30 ; Other hemorrhoids K64.8 ; Ulcer of esophagus without bleeding K22.10 ; Hiatal hernia K44.9 ; Gastritis, chronic K29.50 ; Hematemesis K92.0 and Abdominal pain R10.9 [facility] [address] [place] [phone] 10/23/2023 Cash Mercado [facility] [address] [place] [address] 09/18/[address] scan, co karena R93.3 ; Chronic GERD K21.9 ; Epigastric pain R10.13 and Hiatal hernia K44.9 [facility] [address] [place] [address] 03/03/2024 Cash Mercado Erosive esophagitis K22.10 and Hernia, hiatal K44.9 [facility] [address] [place] [phone] 09/22/2023 Cash Mercado [facility] [address] [place] [address] 10/03/2023 Cash Mercado [facility] [address] [place] [phone] 03/15/2024 Cash Mercado [facility] [address] [place] [phone] 03/26/2024 Cash Mercado ASSESSMENTS Encounter Date Diagnosis [...] Insured Coverage Start Date Coverage End Date [facility] [address] [place] [phone] [id number] LULI DE LUNA Self - patient is the insured MEDICAL (GENERAL) HISTORY Medical History History ICD Code NIDDM Hyperlipidemia Hypertension Pacemaker Arthritis Denies [place],CVA,Lung disease,renal disease Urinary incontinence-mild Hypothyroidism Tubular adenomas [...]
== END 2024-05-18 11:54 | disposition home or self-care (01) ==
PROVIDERS: PCP Nurse Practitioner Primary Care; Visit Provider Internal Medicine Hypertension Specialist
DX: E21.3 Hyperparathyroidism, unspecified (principal); I12.9 Hypertensive chronic kidney disease with stage 1 through stage 4 chronic kidney disease, or unspecified chronic kidney disease; N18.9 Chronic kidney disease, unspecified; E83.52 Hypercalcemia
CPT/HCPCS: 99214

== ENCOUNTER → 2024-05-18 11:32 | Outpatient (BNVA) | payer MEDICARE, SELFPAY | PROVIDERS: PCP Nurse Practitioner Primary Care; Visit Provider Internal Medicine Hypertension Specialist | DX: I12.9 Hypertensive chronic kidney disease with stage 1 through stage 4 chronic kidney disease, or unspecified chronic kidney disease (principal); N18.9 Chronic kidney disease, unspecified; E83.52 Hypercalcemia; E21.3 Hyperparathyroidism, unspecified | CPT/HCPCS: 99212 ==

== ENCOUNTER 2024-05-19 08:38 | Outpatient (REF) | payer MEDICARE, SELFPAY ==
--- NOTE | ~2024-05-19 | MM_ITS ---
EXAMINATION: MM SCREENING DIGITAL BREAST TOMOSYNTHESIS, BILATERAL CLINICAL INFORMATION: Screening. Asymptomatic. COMPARISON: Mammography: Comparison is made with available priors TECHNIQUE: Digital breast mammography with tomosynthesis is performed in both the craniocaudal and mediolateral oblique views along with computer-aided detection (CAD). FINDINGS: There are scattered areas of fibroglandular density (ACR BI-RADS breast composition Category b). There are no significant masses, abnormal calcifications, or other abnormalities. MM/MM tomosynthesis screening BI IMPRESSION: No mammographic evidence of malignancy. ASSESSMENT: BI-RADS BI-RADS 1 - Negative RECOMMENDATION: Routine annual mammography screening. 1 year F/U This examination should not preclude the clinical evaluation of a suspicious palpable abnormality. This patient's information was entered into a reminder system with a target due date for their next mammogram. Electronically signed by: Melanie Medina DO 05/25/2024 03:36 PM AIDE
--- OUTSIDE RECORDS SUMMARY | 2024-05-19 08:49 | XMS_ITS ---
Author Organization [facility] Address [address] [place] [address] Care Team Providers Care Cooling Tower Technician Name Role Phone Archie Finch MD Primary Care Provider Cash Casanova [phone] Encounters Encounter Location Date Provider Diagnosis [facility] [address] [place] [address] 03/15/2024 Cash Mercado PLAN OF TREATMENT No Information
--- OUTSIDE RECORDS SUMMARY | 2024-05-19 08:49 | XMS_ITS ---
Author Organization [facility] Address [address] [place] [address] Care Team Providers Care Nursery Technician Name Role Phone Archie Finch MD Primary Care Provider Cash Casanova [phone] REASON FOR VISIT out of omeprazole requesting r/f Encounters Encounter Location Date Provider Diagnosis [facility] [address] [place] [phone] 03/26/2024 Cash Mercado PLAN OF TREATMENT No Information
--- OUTSIDE RECORDS SUMMARY | 2024-05-19 08:50 | XMS_ITS | Patient Health Record ---
Author Organization [facility] Address [address] [place] [address] Care Team Providers Care Supervisor Display Fabrication Name Role Phone Archie Finch MD Primary Care Provider Cash Casanova [phone] ALLERGIES Allergen (clinical drug ingredient) Drug/Non Drug Allergy documented on EMR Reaction Allergy Type Onset Date Status angiotensin-converting enzyme inhibitor (FN) EMELIA Inhibitors Unknown Drug Allergy Acti ve RESULTS Component Value Reference Range Notes Glucose, Whole Blood Reviewed date:10/03/2023 09:15:19 AM Interpretation: Performing Lab:[facility], [address] [place] [phone] Notes/Report: Glucose, Whole Blood 128 60-115 mg/dL METER # : [id number] Pathology Reviewed date:10/19/2023 09:51:24 PM Interpretation: Performing Lab:[facility], [address] [place] [phone] Notes/Report: MAMMOGRAM DIGITAL BILATERAL SCREEN Reviewed date:03/03/2024 [...] Orally every 6 hrs Active Biotin Maximum 09369 MCG as directed Orally Active Rosuvastatin Calcium [...] Epigastric pain (R10.13) Active confirmed Epigastric pain (68976528) Problem Encounter for screening for malignant neoplasm of colon (Z12.11) Active confirmed 600850215 Problem History of adenomatous polyp of colon (Z86.010) Active confirmed 024878442 Problem Ulcer of esophagus without bleeding (K22.10) Active confirmed Ulcer of esopha silva (31805197) Problem Diverticulosis of large intestine without perforation or abscess without bleeding (K57.30) Active confirmed Diverticul ar disease of colon (915741268) Problem Gastroesophageal reflux disease without esophagitis (K21.9) Active confirmed 231969628 Problem Hiatal hernia (K44.9) Active confirmed Hiatal hernia (17151038) Problem Gastritis, chronic (K29.50) Active confirmed Chronic gastrit is (2187916) Problem Abnormal CT scan, colon (R93.3) Active confirmed Computed tomography result abnormal (485362962) Problem Erosive esophagitis (K22.10) Active confirmed Erosive esophagitis (22215292) Problem Irregular bowel habits (R19.8) Active confirmed 581474797 Problem Incontinence of feces, unspecified fecal incontinence type (R15.9) Active confirmed 16699970 Problem Hernia, hiatal (K44.9) Active confirmed Diaphragmatic hernia (03198763) Problem Chronic GERD (K21.9) Active confirmed Gastroesophagea l reflux disease (571911560) VITAL SIGNS Temperature 96.9 degrees Fahrenheit 09/18/2023 Blood pressure diastolic 74 mm Hg 03/03/2024 Height 62.50 in 03/03/2024 Blood pressure systolic 130 mm Hg 03/03/2024 Weight 197 lbs 03/03/2024 BMI 35.45 kg/m2 03/03/2024 Encounters Encounter Location Date Provider Diagnosis [facility] Outpatient [address] [place] [id number] 10/03/[address] scan, co karena R93.3 ; Diverticulosis of large intestine without perforation or abscess without bleeding K57.30 ; Other hemorrhoids K64.8 ; Ulcer of esophagus without bleeding K22.10 ; Hiatal hernia K44.9 ; Gastritis, chronic K29.50 ; Hematemesis K92.0 and Abdominal pain R10.9 [facility] [address] [place] [phone] 10/23/2023 Cash Mercado [facility] [address] [place] [phone] 09/18/[address] scan, co karena R93.3 ; Chronic GERD K21.9 ; Epigastric pain R10.13 and Hiatal hernia K44.9 [facility] [address] [place] [address] 03/03/2024 Cash Mercado Erosive esophagitis K22.10 and Hernia, hiatal K44.9 [facility] [address] [place] [phone] 09/22/2023 Cash Mercado [facility] [address] [place] [phone] 10/03/2023 Cash Mercado [facility] [address] [place] [phone] 03/15/2024 Cash Mercado [facility] [address] [place] [phone] 03/26/2024 Cash Mercado ASSESSMENTS Encounter Date Diagnosis [...] Coverage Start Date Coverage End Date [facility] [address] [place] [address] [id number] LULI DE LUNA Self - patient is the insured MEDICAL (GENERAL) HISTORY Medical History History ICD Code NIDDM Hyperlipidemia Hypertension Pacemaker Arthritis Denies [place],CVA,Lung disease,renal disease Urinary incontinence-mild Hypothyroidism Tubular adenomas [...]
--- OUTSIDE RECORDS SUMMARY | 2024-05-19 08:50 | XMS_ITS ---
Author Organization [facility] Address [address] [place] [address] Care Team Providers Care Precipitation Equipment Tender Name Role Phone Archie Finch MD Primary Care Provider Cash Casanova [phone] ALLERGIES Allergen (clinical drug ingredient) Drug/Non Drug [...] Orally every 6 hrs Active Biotin Maximum 17914 MCG as directed Orally Active Cinacalcet HCl [...] Erosive esophagitis (K22.10) Active confirmed Erosive esophagitis (81156864) Problem Hernia, hiatal (K44.9) Active confirmed Diaphragmatic hernia (94342578) VITAL SIGNS BMI 35.45 kg/m2 03/03/2024 Blood pressure systolic 130 mm Hg 03/03/20 24 Blood pressure diastolic 74 mm Hg 024 Height 62.50 in 03/03/2024 Weight 197 lbs 03/03/2024 Encounters Encounter Location Date Provider Diagnosis [facility] [address] [place] [address] 03/03/2024 Cash Mercado Erosive esophagitis K22.10 and [...]
== END 2024-05-19 08:39 | disposition home or self-care (01) ==
LOC: HO.MAMMO 08:38
PROVIDERS: PCP Nurse Practitioner Primary Care; Visit Provider Nurse Practitioner Primary Care
DX: Z12.31 Encounter for screening mammogram for malignant neoplasm of breast (principal)
CPT/HCPCS: 77063; 77067

== ENCOUNTER → 2024-05-19 09:00 | Outpatient (BNV) | payer MEDICARE, SELFPAY | PROVIDERS: PCP Nurse Practitioner Primary Care; Visit Provider Internal Medicine | DX: Z12.31 Encounter for screening mammogram for malignant neoplasm of breast (principal) | CPT/HCPCS: 77063; 77067 ==

== ENCOUNTER 2024-06-08 07:35 | Outpatient (REF) | payer MEDICARE, SELFPAY ==
--- OUTSIDE RECORDS SUMMARY | 2024-06-08 07:38 | XMS_ITS ---
Author Organization [facility] Address [address] [place] [address] Care Team Providers Care Property Field Adjuster Name Role Phone Archie Finch MD Primary Care Provider Cash Casanova [phone] ALLERGIES Allergen (clinical drug ingredient) Drug/Non Drug [...] Orally every 6 hrs Active Biotin Maximum 70209 MCG as directed Orally Active Cinacalcet HCl [...] Erosive esophagitis (K22.10) Active confirmed Erosive esophagitis (89981422) Problem Hernia, hiatal (K44.9) Active confirmed Diaphragmatic hernia (62364930) VITAL SIGNS BMI 35.45 kg/m2 03/03/2024 Blood pressure systolic 130 mm Hg 03/03/20 24 Blood pressure diastolic 74 mm Hg 024 Height 62.50 in 03/03/2024 Weight 197 lbs 03/03/2024 Encounters Encounter Location Date Provider Diagnosis [facility] [address] [place] [address] 03/03/2024 Cash Mercado Erosive esophagitis K22.10 and [...]
--- OUTSIDE RECORDS SUMMARY | 2024-06-08 07:38 | XMS_ITS | Clinical Summary ---
Author Organization [facility] Address [address] [place] [address] Care Team Providers Care Apprentice Instrument Technician Name Role Phone Unavailable Primary Care Provider Unavailabl e Social History Tobacco Use Types Packs/Day Years Used Date Smoking Tobacco: Never Assessed Sex and Gender Information Value Date Recorded Sex Assigned at Not on file Gender Identity Not on file Sexual Orientation Not on file Plan of Treatment Health Maintenance Due Date Last Done Comments DTaP,Tdap,and Td Vaccines (1 - Tdap) 12/07/1962 Zoster Vaccines (1 of 2) 12/07/1993 Pneumococcal Vaccine: 65+ Ye ars (1 of 1 - PCV) 12/07/2008 RSV Immunization Patients 60 + Years Old (1 - 1-dose 75+ series) 12/07/2018 Depression Screening 12/10/2023 Falls Risk Assessment 12/10/2023 Osteoporosis Screening (Bone Density Screening) 12/10/2023 Social Influencers of Health Screening 12/10/2023 COVID-19 Vaccine ( - 2023-2 5 season) 2024 Influenza Vaccine (#1) 2024 HIB Vaccines Aged Out No longer eligi ble based on patient's age to complete this topic HPV Vaccines Aged Out No longer eligi ble based on patient's age to complete this topic Hepatitis A Vaccines Aged Out No long er eligible based on patient's age to complete this topic Hepatitis B Vaccines Aged Out No long er eligible based on patient's age to complete this topic IPV Vaccines Aged Out No longer eligi ble based on patient's age to complete this topic MMR Vaccines Aged Out No longer eligi ble based on patient's age to complete this topic Meningococcal ACWY Vaccine Aged Out N o longer eligible based on patient's age to complete this topic RSV Immunization Patients Un ebonie 20 months Aged Out No longer eligible b ased on patient's age to complete this topic Varicella Vaccines Aged Out No longer eligible based on patient's age to complete this topic
--- OUTSIDE RECORDS SUMMARY | 2024-06-08 07:38 | XMS_ITS | Encounter Summary ---
Author Organization [facility] Address [address] [facility] [address] [place] [address] Phone Care Team Providers Care Seo Specialist Name Role Phone Carmita Dietz PHYSICAL AERODYNAMICIST-C Primary Care Provider + Reason for Visit * Reason Comments Med Refill Encounter Details Date Type Department Care Team (Late st Contact Info) Description 02/27/2023 Refill [facility] [address] [place] [id number] Arsen Villegas MD Social History Tobacco Use Types Packs/Day Years Used Date Smoking Tobacco: Never Smokeless Tobacco: Never Alcohol Use Standard Drinks/Week Comments Yes 1 (1 standard drink = 0.6 oz pur e alcohol) Comments Unknown Sex and Gender Information Value Date Recorded Sex Assigned at Not on file Legal Sex Female 11:23 AM EST Gender Identity Not on file Sexual Orientation Not on file documented as of this encounter Plan of Treatment Not on file documented as of this encounter Visit Diagnoses Not on filedocumented in this encounter Care Teams Seo Specialist Relationship Specialty Start Date End Date Carmita Dietz NP-C [address], [address] [place] [address] PCP - General Nurse Practitioner 07/18/22 documented as of this encounter
--- OUTSIDE RECORDS SUMMARY | 2024-06-08 07:39 | XMS_ITS ---
Author Organization [facility] Address [address] [place] [address] Care Team Providers Care Information Technology Security Analyst Name Role Phone Archie Finch MD Primary Care Provider Cash Casanova [phone] Encounters Encounter Location Date Provider Diagnosis [facility] [address] [place] [address] 03/15/2024 Cash Mercado PLAN OF TREATMENT No Information
--- OUTSIDE RECORDS SUMMARY | 2024-06-08 07:39 | XMS_ITS | Clinical Summary ---
Author Organization [facility] Address [address] [place] [address], [place] [address] Care Team Providers Care Wire Brush Maker Name Role Phone Carmita Dietz FOLDER TIER-C Primary Care Provider + Allergies No known active allergies Medications levothyroxine (SYNTHROID, LEVOTHROID) 75 MCG tablet TAKE 1 TABLET (75 MCG) BY ORAL ROUTE ONCE DAILY 08/30/2022 Active metFORMIN (GLUCOPHAGE) 500 MG tablet TAKE ONE TABLET WITH THE EVENING MEAL FOR 90 DAYS 10/04/2022 Active pravastatin (PRAVACHOL) 20 MG tablet Take 20 mg by mouth 1 (one) time each day 09/28/2022 Active amLODIPine-benaz epril (LOTREL) 10-20 MG per capsule TAKE ONE CAPSULE DAILY FOR 90 DAYS 10/07/2022 Active aspirin 81 MG chewable tablet Chew 81 mg 1 (one) time each day Active cholecalciferol (VITAMIN D-3) 25 MCG (1000 UT) tablet Take 1,000 Units by mouth 1 (one) time each day Active Biotin 90084 MCG tablet dispersible Take by mouth Active spironolactone (ALDACTONE) 25 MG tablet Take 0.5 tablets (12.5 mg total) by mouth 1 (one) time each day 12/13/2022 Active cinacalcet (Sensipar) 30 MG tablet Take 1 tablet (30 mg total) by mouth 1 (one) time each day 30 tablet 2 12/13/2022 Active Active Problems Problem Noted Date Diagnosed Date Screening for malignant neoplasm of colon 202212/13/2022 Irregular bowel habits 12/13/2022 Incontinence of feces 12/13/2022 12/13/2022 History of adenomatous polyp of colon 12/13/2022 12/13/2022 Gastro-esophageal reflux disease without esophag itis 12/13/2022 12/13/2022 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 12/13/2022 Type 2 diabetes mellitus 11/01/2022 Hyperlipidemia 01/09/2018 Overview (11/01/2022): Last Assessment & Plan: Continue pravastatin Hypertension 01/09/2018 Overview (11/01/2022): Last Assessment & Plan: Blood pressure controlled Continue amlodipine/benazepril Left bundle-branch block 01/09/2018 023 Cardiac pacemaker in situ 01/09/20182022 Overview (12/13/2022): [employer] Immunizations Name Administration Dates Next Due Influenza, Unspecified 02/27/2022,02/11/2016 Family History Medical History Relation Comments Diabetes Maternal Grandfather Hypertension Mother Relation Status Comments Maternal Grandfather Mother Social History Tobacco Use Types Packs/Day Years Used Date Smoking Tobacco: Never Smokeless Tobacco: Never Tobacco Cessation:Counseling Given: Not Answered Alcohol Use Standard Drinks/Week Comments Yes 1 (1 standard drink = 0.6 oz pur e alcohol) Comments Unknown Sex and Gender Information Value Date Recorded Sex Assigned at Not on file Legal Sex Female 11:23 AM EST Gender Identity Not on file Sexual Orientation Not on file Last Filed Vital Signs Vital Sign Reading Time Taken Comments Blood Pressure 132/68 01/28/2023 12:53 PM EDT Pulse 105 01/28/2023 12:53 PM EDT Temperature - - Respiratory Rate - - Oxygen Saturation 94% 01/28/2023 12:53 PM EDT Inhaled Oxygen Concentration - - Weight 93.9 kg (207 lb) 01/28/2023 12:53 PM EDT Height 157.5 cm (5' 2 ) 01/28/2023 12:53 PM EDT Body Mass Index 37.86 01/28/2023 12:53 PM EDT Plan of Treatment Health Maintenance Due Date Last Done Comments Pneumococcal Vaccine: 65+ Years (1 of 2 - PCV) 12/07/1951 Diabetes: Hemoglobin A1C 07/18/2022 Diabetes: Ophthalmology Exam 07/18/2022 Diabetes: Pedal Pulse Checked 07/18/2022 Diabetes: Sensory Foot Exam 07/18/2022 Diabetes: Visual Foot Exam 07/18/2022 Influenza Vaccine (#1) 2024 2, 02/11/2016 Hepatitis B Vaccine Aged Out No longe r eligible based on patient's age to complete this topic [place] [address] [address] [place] [address] [facility] Care Teams Wire Brush Maker Relationship Specialty Start Date End Date Carmita Dietz NP-C [address], [address] [place] [address] PCP - General Nurse Practitioner 07/18/22
--- OUTSIDE RECORDS SUMMARY | 2024-06-08 07:39 | XMS_ITS | Data Portability ---
Author Organization [facility], [facility] Address [address] [place] [address] Care Team Providers Care Management Professional Name Role Phone JOANNE FITZGERALD OTHER JAMAAL HAM [employer] Assessment Encounter Date Assessment Date Assessment LastModified by Organization Details LastModified Time 03/27/2019 03/27/2019 T2DM on metformin 500 mg. Renal insufficiency with creat around 1.3-1.6. (eGFR= 30s) Hypercalcemia with evidence of [facility] 24 hour urine calcium low at 41. PTH= 91. Hypothyroid: tsh= 0.81; New orders placed- will plan to have them start after 05/13/2019. [email or web address] Not available 03/30/2019 15:22:36 04/01/2020 04/01/2020 T2DM on metformin 500 mg. Renal insufficiency with creat around 1.3-1.6. (eGFR= 30s) Hypercalcemia with evidence of [facility] 24 hour urine calcium low at 41. PTH= 91. Hypothyroid: tsh= 0.81; New orders placed- 04/01. [email or web address] Not available 04/01/2020 09:42:36 04/05/2021 04/05/2021 T2DM on metformin 500 mg. Renal insufficiency with creat around 1.3-1.6. (eGFR= 30s) Hypercalcemia with evidence of [facility] 24 hour urine calcium low at 41. PTH= 91. Hypothyroid: tsh= 0.81; lotion 3x per week. Enhanced Provider time spent performing enhanced activities which may include, but are not limited to: reviewing tests, obtaining and/or reviewing patient history; ordering medications, test or procedures; EMR documentation; communication with patient, family, caregiver(s), VNA; pre-visit prep time communication with specialists, ER staff. Time spent: 31 (minutes) mary kate Not available 04/05/2021 22:05:29 Plan of Treatment Reminders Order Date Submit Date Provider Last Modified By Organization Details Last Modified Time Details Appointments Follow Up, 2024 09:20A M Jamaal Ham MD Not available Not available Not available Lab renal function panel, serum 2017 018 [facility], [address], [address], [place], [address], 10/11/2017 09:43:44 vitamin D, 25-hydro xy, total, serum 2017 019 [facility], [address], [address], [place], [address], 06/27/2018 14:55:41 renal function panel, serum 2017 019 [facility], [address], [address], [place], [address], 02/02/2019 14:46:53 HbA1c (hemoglo bin A1c), blood 2018 019 [facility], [address], [place], [address], 06/12/2019 15:32:59 CMP, serum or plasma 2018 019 [facility], [address], [place], [address], 06/12/2019 16:09:37 TSH, serum or plasma 2018 019 [facility], [address], [place], [address], 06/12/2019 16:09:40 T4, free, serum 2018 019 [facility], [address], [place], [address], 06/12/2019 16:09:39 vitamin D, 25-hydro xy, total, serum 2019 021 [place] [facility], [address], [place], [address], 02/02/2021 11:16:20 HbA1c (hemoglo bin A1c), blood 2019 020 [facility], [address], [place], [address], 09/02/2020 13:55:20 CMP, serum or plasma 2019 021 [facility], [address], [place], [address], 09/02/2020 11:43:26 CMP, serum or plasma 2020 021 [facility], [address], [place], [address], 02/02/2021 11:26:12 HbA1c (hemoglo bin A1c), blood 2020 021 [facility], [address], [place], [address], 02/02/2021 10:57:24 TSH, serum or plasma 2019 021 [facility], [address], [place], [address], 02/02/2021 11:26:16 T4, free, serum 2019 021 [place] [facility], [address], [place], [address], 02/02/2021 11:26:14 Referral None recorded . Procedures None recorded . Surgeries None recorded . Imaging None recorded . Medication Orders levothyr oxine 75 mcg tablet 2017 018 [id number], [address], [place], [address], 09/19/2017 10:03:27 levothyr oxine 75 mcg tablet 2017 018 [id number], [address] [place], [address], 03/28/2018 10:23:06 levothyr oxine 75 mcg tablet 2020 021 [id number], [address] [place], [address], 04/05/2021 22:06:37 Patient TargetsNo targets recorded. Patient Instructions Encounter Date Encounter Id Patient Instructions Last Modified By Organization Details Last Modified Time 03/27/2019 [id number] - Get labs done beginning in May 2019. - Continue taking thyroid hormone every day away from other food and especially from other minerals like calcium (dairy), iron, magnesium, etc. - Contact office if any symptoms of low thyroid (excess fatigue, unexplained weight gain, feeling much more cold than usual, constipation, very dry skin) or excess thyroid (heart racing, unexplained weight loss, feeling jittery/nervous/ anxious, change in frequency of moving bowels, tremors, or insomnia) - Continue to monitor your blood sugars as directed - Follow a healthy diet - Try and be as physically active as you can - Bring meter to every visit - Lotion to feet [email or web address] Not available 03/27/2019 11:29:50 04/01/2020 [id number] - Get labs done beginning in May 2019. - Continue taking thyroid hormone every day away from other food and especially from other minerals like calcium (dairy), iron, magnesium, etc. - Contact office if any symptoms of low thyroid (excess fatigue, unexplained weight gain, feeling much more cold than usual, constipation, very dry skin) or excess thyroid (heart racing, unexplained weight loss, feeling jittery/nervous/ anxious, change in frequency of moving bowels, tremors, or insomnia) - Continue to monitor your blood sugars as directed - Follow a healthy diet - Try and be as physically active as you can - Bring meter to every visit - Lotion to feet [email or web address] Not available 04/01/2020 09:42:26 one year. 40 minutes. If things stable then, will transition to PCP. [email or web address] Not available 04/01/2020 09:43:27 04/05/2021 [id number] - Continue taking thyroid hormone every day away from other food and especially from other minerals like calcium (dairy), iron, magnesium, etc. - Contact office if any symptoms of low thyroid (excess fatigue, unexplained weight gain, feeling much more cold than usual, constipation, very dry skin) or excess thyroid (heart racing, unexplained weight loss, feeling jittery/nervous/ anxious, change in frequency of moving bowels, tremors, or insomnia) - Continue to monitor your blood sugars as directed - Follow a healthy diet - Try and be as physically active as you can - Lotion to feet [email or web address] Not available 04/05/2021 22:02:08 Back to PCP. [email or web address] Not availabl e 04/05/2021 22:02:24 Reason for Referral None Reported. Results Created Date Observation Date Name Description Value Unit Range Abnormal Flag Note LastModifiedBy Organization Detail LastModifiedTime 09/13/19 18 09/12/2017 renal funct ion panel , serum glucose 131 mg/dL (70-99 ) high Not Available [facility] [address] [place], [address], 09/12/2017 10:25:20 09/13/19 18 09/12/2017 renal funct ion panel , serum BUN 28 mg/dL (8-23) high Not Available [facility] [address] [place], [address], 09/12/2017 10:25:20 09/13/19 18 09/12/2017 renal funct ion panel , serum creatinine 1.6 mg/dL (0.5-1 .0) high Not Available [facility] [address] [place], [address], 09/12/2017 10:25:20 09/13/19 18 09/12/2017 renal funct ion panel , serum sodium 143 mmol/ L (133-1 45) Not Available [facility] [address] [place], [address], 09/12/2017 10:25:20 09/13/19 18 09/12/2017 renal funct ion panel , serum potassium 4.5 mmol/ L (3.6-5 .2) Not Available [facility] [address] [place], [address], 09/12/2017 10:25:20 09/13/19 18 09/12/2017 renal funct ion panel , serum chloride 104 mmol/ L (98-10 7) Not Available [facility] [address] [place], [address], 09/12/2017 10:25:20 09/13/19 18 09/12/2017 renal funct ion panel , serum bicarbonate 27 mmol/ L (22-29 ) Not Available [facility] [address] [place], [address], 09/12/2017 10:25:20 09/13/19 18 09/12/2017 renal funct ion panel , serum anion gap 12 (4-17) Not Available [facility] [address] [place], [address], 09/12/2017 10:25:20 09/13/19 18 09/12/2017 renal funct ion panel , serum albumin 4.0 gm/dL (3.4-4 .8) Not Available [facility] [address] [place], [address], 09/12/2017 10:25:20 09/13/19 18 09/12/2017 renal funct ion panel , serum calcium 10.5 mg/dL (8.6-1 0.5) ALYSE TRUONG CALCI UM LEVEL S SHOUL D BE REPEA ALEXI ON A DAY CLINI JOSE INDIC ATED. Not Available [facility] [address] [place], [address], 09/12/2017 10:25:20 09/13/19 18 09/12/2017 renal funct ion panel , serum phosphorus 3.5 mg/dL (2.5-4 .5) Not Available [facility] [address] [place], [address], 09/12/2017 10:25:20 09/13/19 18 09/12/2017 renal funct ion panel , serum est GFR non 32 mL/mi n/1.7 3_M2 Creat inine based estim ated glome rular filtr ation rate (eGFR ) is calcu lated using the Chron ic Kidne y Disea se Epide miolo gy Colla borat ion (CKD- EPI). The CKD-E PI creat inine equat ion has not been valid ated in child antonio (<18 years ), pregn ant women or in some racia l or ethni c subgr oups other than Cauca sians and Afric an Ameri cans. Not Available [facility] [address] [place], [address], 09/12/2017 10:25:20 09/13/19 18 09/12/2017 renal funct ion panel , serum est GFR 37 mL/mi n/1.7 3_M2 Creat inine based estim ated glome rular filtr ation rate (eGFR ) is calcu lated using the Chron ic Kidne y Disea se Epide miolo gy Colla borat ion (CKD- EPI). The CKD-E PI creat inine equat ion has not been valid ated in child antonio (<18 years ), pregn ant women or in some racia l or ethni c subgr oups other than Cauca sians and Afric an Ameri cans. Not Available [facility] [address] [place], [address], 09/12/2017 10:25:20 09/13/19 18 09/12/2017 T4, free, serum free T4 1.50 NG/dL (0.70- 1.80) Not Available [facility] [address] [place], [address], 09/12/2017 10:44:59 09/13/19 18 09/12/2017 TSH, serum or plasm a TSH 1.18 mIU/m L (0.40- 4.00) Not Available [facility] [address] [place], [address], 09/12/2017 10:45:01 09/13/19 18 09/12/2017 vitam in D, 25-hy droxy , total , serum 25OH vitamin D 60.3 NG/mL (20-50 ) high Serum 25OHD : Great er than 50 ng/ml : possi naomi harmf ul vitam in D. Refer ence: [facility] Data Brief : No.59 July: Vitam in D Statu s: Unite d State s: 2000- 2005 As of , Vitam in D, 25-Hy droxy assay has been simpson ed. [facility], the new assay may yield a highe r value (up to 15% incre ase) in sienna rison to the old assay . These incre ases would mainl y be notic eable at value s of great er than 50 ng/ml . Not Available [facility] [address] [place], [address], 09/12/2017 10:45:40 09/13/19 18 09/12/2017 PTH (para thyro id hormo ne), intac t, serum or plasm a PTH, intact 91 pg/mL (15-65 ) high Not Available [facility] [address] [place], [address], 09/12/2017 13:04:26 10/12/19 18 10/11/2017 renal funct ion panel , serum glucose 131 mg/dL (70-99 ) high Not Available [facility] [address] [place], [address], 10/11/2017 09:43:44 10/12/19 18 10/11/2017 renal funct ion panel , serum BUN 24 mg/dL (8-23) high Not Available [facility] [address] [place], [address], 10/11/2017 09:43:44 10/12/19 18 10/11/2017 renal funct ion panel , serum creatinine 1.3 mg/dL (0.5-1 .0) high Not Available [facility] [address] [place], [address], 10/11/2017 09:43:44 10/12/19 18 10/11/2017 renal funct ion panel , serum sodium 139 mmol/ L (133-1 45) Not Available [facility] [address] [place], [address], 10/11/2017 09:43:44 10/12/19 18 10/11/2017 renal funct ion panel , serum potassium 4.7 mmol/ L (3.6-5 .2) Not Available [facility] [address] [place], [address], 10/11/2017 09:43:44 10/12/19 18 10/11/2017 renal funct ion panel , serum chloride 103 mmol/ L (98-10 7) Not Available [facility] [address] [place], [address], 10/11/2017 09:43:44 10/12/19 18 10/11/2017 renal funct ion panel , serum bicarbonate 26 mmol/ L (22-29 ) Not Available [facility] [address] [place], [address], 10/11/2017 09:43:44 10/12/19 18 10/11/2017 renal funct ion panel , serum anion gap 10 (4-17) Not Available [facility] [address] [place], [address], 10/11/2017 09:43:44 10/12/19 18 10/11/2017 renal funct ion panel , serum albumin 4.2 gm/dL (3.4-4 .8) Not Available [facility] [address] [place], [address], 10/11/2017 09:43:44 10/12/19 18 10/11/2017 renal funct ion panel , serum calcium 11.1 mg/dL (8.6-1 0.5) high Not Available [facility] [address] [place], [address], 10/11/2017 09:43:44 10/12/19 18 10/11/2017 renal funct ion panel , serum phosphorus 3.3 mg/dL (2.5-4 .5) Not Available [facility] [address] [place], [address], 10/11/2017 09:43:44 10/12/19 18 10/11/2017 renal funct ion panel , serum est GFR non 41 mL/mi n/1.7 3_M2 Creat inine based estim ated glome rular filtr ation rate (eGFR ) is calcu lated using the Chron ic Kidne y Disea se Epide miolo gy Colla borat ion (CKD- EPI). The CKD-E PI creat inine equat ion has not been valid ated in child antonio (<18 years ), pregn ant women or in some racia l or ethni c subgr oups other than Cauca sians and Afric an Ameri cans. Not Available [facility] [address] [place], [address], 10/11/2017 09:43:44 10/12/19 18 10/11/2017 renal funct ion panel , serum est GFR 47 mL/mi n/1.7 3_M2 Creat inine based estim ated glome rular filtr ation rate (eGFR ) is calcu lated using the Chron ic Kidne y Disea se Epide miolo gy Colla borat ion (CKD- EPI). The CKD-E PI creat inine equat ion has not been valid ated in child antonio (<18 years ), pregn ant women or in some racia l or ethni c subgr oups other than Cauca sians and Afric an Ameri cans. Not Available [facility] [address] [place], [address], 10/11/2017 09:43:44 10/30/19 18 10/29/2017 renal funct ion panel , serum sodium 144 mmol/ L 133-14 6 Not Available [facility] [address] [place], [address], 10/29/2017 13:09:32 10/30/19 18 10/29/2017 renal funct ion panel , serum potassium 4.9 mmol/ L 3.3-5. 1 Not Available [facility] [address] [place], [address], 10/29/2017 13:09:32 10/30/19 18 10/29/2017 renal funct ion panel , serum chloride 104 mmol/ L 96-108 Not Available [facility] [address] [place], [address], 10/29/2017 13:09:32 10/30/19 18 10/29/2017 renal funct ion panel , serum CO2 26 mmol/ L 21-35 Not Available [facility] [address] [place], [address], 10/29/2017 13:09:32 10/30/19 18 10/29/2017 renal funct ion panel , serum glucose 135 mg/dL 70-99 high Not Available [facility] [address] [place], [address], 10/29/2017 13:09:32 10/30/19 18 10/29/2017 renal funct ion panel , serum BUN 20 mg/dL 6-19 high Not Available [facility] [address] [place], [address], 10/29/2017 13:09:32 10/30/19 18 10/29/2017 renal funct ion panel , serum creatinine 1.20 mg/dL 0.5-1. 5 Not Available [facility] [address] [place], [address], 10/29/2017 13:09:32 10/30/19 18 10/29/2017 renal funct ion panel , serum calcium 10.6 mg/dL 8.4-10 .3 high Not Available [facility] [address] [place], [address], 10/29/2017 13:09:32 10/30/19 18 10/29/2017 renal funct ion panel , serum phosphorus 3.2 mg/dL 2.7-4. 5 Not Available [facility] [address] [place], [address], 10/29/2017 13:09:32 10/30/19 18 10/29/2017 renal funct ion panel , serum albumin 3.9 g/dL 3.9-4. 8 Not Available [facility] [address] [place], [address], 10/29/2017 13:09:32 10/30/19 18 10/29/2017 renal funct ion panel , serum eGFR 45 mL/mi n/1.7 3m2 >59 low If patie nt is black , multi ply resul t by 1.159 . Estim ated glome rular filtr ation rate calcu lated using the CKD-E PI equat ion. Not Available [facility] [address] [place], [address], 10/29/2017 13:09:32 10/30/19 18 10/29/2017 renal funct ion panel , serum anion gap 19 mmol/ L 10-20 Not Available [facility] [address] [place], [address], 10/29/2017 13:09:32 10/30/19 18 10/29/2017 timed urine data collection data 24 HOUR Not Available [facility] [address] [place], [address], 10/29/2017 15:32:37 10/30/19 18 10/29/2017 timed urine data total volume 1050 mL Not Available [facility] [address] [place], [address], 10/29/2017 15:32:37 10/30/19 18 10/29/2017 creat inine , 24-ho ur urine urine creatinine 96 mg/dL Not Available [facility] [address] [place], [address], 10/29/2017 22:01:55 10/30/19 18 10/29/2017 creat inine , 24-ho ur urine creatinine output 1008 mg/to tal_o utput 600-18 00 Not Available [facility] [address] [place], [address], 10/29/2017 22:01:55 10/30/19 18 10/29/2017 phosp horus , 24-ho ur urine urine phosphorus 50.8 mg/dL Not Available [facility] [address] [place], [address], 10/29/2017 22:01:56 10/30/19 18 10/29/2017 phosp horus , 24-ho ur urine phosphorus output 533.4 mg/to tal_o utput 400-13 00 Not Available [facility] [address] [place] [address], [address], 10/29/2017 22:01:56 10/30/19 18 10/29/2017 calci um, 24-ho ur urine urine calcium 3.9 mg/dL Not Available [facility] [address] [place] [address], [address], 10/29/2017 22:39:22 10/30/19 18 10/29/2017 calci um, 24-ho ur urine calcium output 41 mg/to tal_o utput 100-30 0 low Not Available [facility] [address] [place] [address], [address], 10/29/2017 22:39:22 03/12/20 18 03/12/2018 T4, free, serum free T4 1.5 NG/dL 0.9-1. 7 Not Available [facility] [address] [place], [address], 03/12/2018 13:41:14 03/12/20 18 03/12/2018 lfts (hepa tic panel ) alkaline phosphatase 52 U/L 39-117 Not Available [facility] [address] [place], [address], 03/12/2018 13:41:18 03/12/20 18 03/12/2018 lfts (hepa tic panel ) total bilirubin 0.3 mg/dL 0.0-1. 2 Not Available [facility] [address] [place], [address], 03/12/2018 13:41:18 03/12/20 18 03/12/2018 lfts (hepa tic panel ) direct bilirubin <0.2 mg/dL 0-0.3 Not Available [facility] [address] [place], [address], 03/12/2018 13:41:18 03/12/20 18 03/12/2018 [facility]fts (hepa tic panel ) bilirubin (indirect) NOT CALCUL ATED mg/dL 0-1.5 Not Available [facility] [address] [place], [address], 03/12/2018 13:41:18 03/12/20 18 03/12/2018 lfts (hepa tic panel ) AST 14 U/L 0-37 Not Available [facility] [address] [place], [address], 03/12/2018 13:41:18 03/12/20 18 03/12/2018 lfts (hepa tic panel ) ALT 9 U/L 0-40 Not Available [facility] [address] [place], [address], 03/12/2018 13:41:18 03/12/20 18 03/12/2018 [facility]fts (hepa tic panel ) total protein 7.7 g/dL 6.5-8. 0 Not Available [facility] [address] [place] [address], [address], 03/12/2018 13:41:18 03/12/20 18 03/12/2018 lfts (hepa tic panel ) albumin 4.4 g/dL 3.9-4. 8 Not Available [facility] [address] [place] [address], [address], 03/12/2018 13:41:18 03/12/20 18 03/12/2018 [facility]fts (hepa tic panel ) globulin 3.3 g/dL 1-4.8 Not Available [facility] [address] [place] [address], [address], 03/12/2018 13:41:18 03/12/20 18 03/12/2018 [facility]fts (hepa tic panel ) A/G ratio 1.33 ratio 1.00-4 .80 Not Available [facility] [address] [place] [address], [address], 03/12/2018 13:41:18 03/12/20 18 03/12/2018 TSH, serum or plasm a TSH 0.81 uIU/m L 0.27-4 .20 Not Available [facility] [address] [place] [address], [address], 03/12/2018 13:41:19 03/12/20 18 03/12/2018 vitam in D, 25-hy droxy , total , serum 25 oh vit D (total) >60 NG/mL 30-60 high Not Available [facility] [address] [place] [address], [address], 03/12/2018 15:16:52 06/27/19 19 06/27/2018 vitam in D, 25-hy droxy , total , serum 25OH vitamin D 52.2 NG/mL (20-50 ) high Serum 25OHD : Great er than 50 ng/ml : linette vu ul vitam in D. Refer ence: [facility] Data Brief : No.59 July: Vitam in D Statu s: Unite d State s: 2000- 2005 As of , Vitam in D, 25-Hy droxy assay has been simpson ed. In [facility], the new assay may yield a highe r value (up to 15% incre ase) in sienna rison to the old assay . These incre ases would mainl y be notic eable at value s of great er than 50 ng/ml . Not Available [facility] [address] [place], [address], 06/27/2018 14:55:41 06/27/19 19 06/27/2018 renal funct ion panel , serum glucose 110 mg/dL (70-99 ) high Not Available [facility] [address] [place], [address], 06/27/2018 22:36:17 06/27/19 19 06/27/2018 renal funct ion panel , serum BUN 23 mg/dL (8-23) Not Available [facility] [address] [place], [address], 06/27/2018 22:36:17 06/27/19 19 06/27/2018 renal funct ion panel , serum creatinine 1.6 mg/dL (0.5-1 .0) high Not Available [facility] [address] [place], [address], 06/27/2018 22:36:17 06/27/1906/27/2018 renal funct ion panel , serum sodium 141 mmol/ L (133-1 45) Not Available [facility] [address] [place], [address], 06/27/2018 22:36:17 06/27/1906/27/2018 renal funct ion panel , serum potassium 4.8 mmol/ L (3.6-5 .2) Not Available [facility] [address] [place], [address], 06/27/2018 22:36:17 06/27/19 19 06/27/2018 renal funct ion panel , serum chloride 104 mmol/ L (98-10 7) Not Available [facility] [address] [place], [address], 06/27/2018 22:36:17 06/27/19 19 06/27/2018 renal funct ion panel , serum bicarbonate 24 mmol/ L (22-29 ) Not Available [facility] [address] [place], [address], 06/27/2018 22:36:17 06/27/19 19 06/27/2018 renal funct ion panel , serum anion gap 13 (4-17) Not Available [facility] [address], [address], 06/27/2018 22:36:17 06/27/19 19 06/27/2018 renal funct ion panel , serum albumin 4.4 gm/dL (3.4-4 .8) Not Available [facility] [address] [place], [address], 06/27/2018 22:36:17 06/27/19 19 06/27/2018 renal funct ion panel , serum calcium 11.1 mg/dL (8.6-1 0.5) high Not Available [facility] [address] [place], [address], 06/27/2018 22:36:17 06/27/1906/27/2018 renal funct ion panel , serum phosphorus 3.0 mg/dL (2.5-4 .5) Not Available [facility] [address] [place], [address], 06/27/2018 22:36:17 06/27/1906/27/2018 renal funct ion panel , serum est GFR non 31 mL/mi n/1.7 3_M2 Creat inine based estim ated glome rular filtr ation rate (eGFR ) is calcu lated using the Chron ic Kidne y Disea se Epide miolo gy Colla borat ion (CKD- EPI). The CKD-E PI creat inine equat ion has not been valid ated in child antonio (<18 years ), pregn ant women or in some racia l or ethni c subgr oups other than Cauca sians and Afric an Ameri cans. Not Available [facility] [address] [place], [address], 06/27/2018 22:36:17 06/27/19 19 06/27/2018 renal funct ion panel , serum est GFR 36 mL/mi n/1.7 3_M2 Creat inine based estim ated glome rular filtr ation rate (eGFR ) is calcu lated using the Chron ic Kidne y Disea se Epide miolo gy Colla borat ion (CKD- EPI). The CKD-E PI creat inine equat ion has not been valid ated in child antonio (<18 years ), pregn ant women or in some racia l or ethni c subgr oups other than Cauca sians and Afric an Ameri cans. Not Available [facility] [address], [place], [address], 06/27/2018 22:36:17 08/12/19 19 08/11/2018 renal funct ion panel , serum sodium 140 mmol/ L 133-14 6 Not Available [facility] [address] [place], [address], 08/11/2018 17:28:23 08/12/19 19 08/11/2018 renal funct ion panel , serum potassium 4.9 mmol/ L 3.3-5. 1 Not Available [facility] [address] [place], [address], 08/11/2018 17:28:23 08/12/19 19 08/11/2018 renal funct ion panel , serum chloride 103 mmol/ L 96-108 Not Available [facility] [address] [place], [address], 08/11/2018 17:28:23 08/12/19 19 08/11/2018 renal funct ion panel , serum CO2 23 mmol/ L 21-35 Not Available [facility] [address] [place], [address], 08/11/2018 17:28:23 08/12/19 19 08/11/2018 renal funct ion panel , serum glucose 111 mg/dL 70-99 high Not Available [facility] [address] [place], [address], 08/11/2018 17:28:23 08/12/19 19 08/11/2018 renal funct ion panel , serum BUN 20 mg/dL 6-19 high Not Available [facility] [address] [place], [address], 08/11/2018 17:28:23 08/12/19 19 08/11/2018 renal funct ion panel , serum creatinine 1.30 mg/dL 0.5-1. 5 Not Available [facility] [address] [place], [address], 08/11/2018 17:28:23 08/12/19 19 08/11/2018 renal funct ion panel , serum calcium 10.8 mg/dL 8.4-10 .3 high Not Available [facility] [address] [place], [address], 08/11/2018 17:28:23 08/12/19 19 08/11/2018 renal funct ion panel , serum phosphorus 2.7 mg/dL 2.7-4. 5 Not Available [facility] [address] [place], [address], 08/11/2018 17:28:23 08/12/19 19 08/11/2018 renal funct ion panel , serum albumin 4.5 g/dL 3.9-4. 8 Not Available [facility] [address] [place], [address], 08/11/2018 17:28:23 08/12/19 19 08/11/2018 renal funct ion panel , serum eGFR 40 mL/mi n/1.7 3m2 >59 low If patie nt is black , multi ply resul t by 1.159 . Estim ated glome rular filtr ation rate calcu lated using the CKD-E PI equat ion. Not Available [facility] [address] [place], [address], 08/11/2018 17:28:23 08/12/19 19 08/11/2018 renal funct ion panel , serum anion gap 19 mmol/ L 10- Not Available [facility] [address] [place], [address], 08/11/2018 17:28:23 03/23/20 19 03/23/2019 vitam in D, 25-hy droxy , total , serum 25OH vitamin D 42.2 NG/mL (20-50 ) Serum 25OHD : 20 to 50 ng/mL : suffi cient in vitam in D. Refer ence: [facility] Data Brief : No.59 July: Vitam in D Statu s: [place]ite [place] s: 2000- 2005 Not Available [facility] [address] [place], [address], 03/23/2019 18:54:58 03/23/20 19 03/23/2019 renal funct ion panel , serum glucose 84 mg/dL (70-99 ) Not Available [facility] [address] [place], [address], 03/23/2019 19:05:49 03/23/20 19 03/23/2019 renal funct ion panel , serum BUN 24 mg/dL (8-23) high Not Available [facility] [address] [place], [address], 03/23/2019 19:05:49 03/23/20 19 03/23/2019 renal funct ion panel , serum creatinine 1.5 mg/dL (0.5-1 .0) high Not Available [facility] [address] [place], [address], 03/23/2019 19:05:49 03/23/20 19 03/23/2019 renal funct ion panel , serum sodium 141 mmol/ L (133-1 45) Not Available [facility] [address] [place], [address], 03/23/2019 19:05:49 03/23/2003/23/2019 renal funct ion panel , serum potassium 4.9 mmol/ L (3.6-5 .2) Not Available [facility] [address] [place], [address], 03/23/2019 19:05:49 03/23/20 19 03/23/2019 renal funct ion panel , serum chloride 104 mmol/ L (98-10 7) Not Available [facility] [address] [place], [address], 03/23/2019 19:05:49 03/23/2003/23/2019 renal funct ion panel , serum bicarbonate 25 mmol/ L (22-29 ) Not Available [facility] [address] [place], [address], 03/23/2019 19:05:49 03/23/20 19 03/23/2019 renal funct ion panel , serum anion gap 12 (4-17) Not Available [facility] [address] [place], [address], 03/23/2019 19:05:49 03/23/2003/23/2019 renal funct ion panel , serum albumin 4.2 gm/dL (3.4-4 .8) Not Available [facility] [address] [place], [address], 03/23/2019 19:05:49 03/23/2003/23/2019 renal funct ion panel , serum calcium 10.9 mg/dL (8.6-1 0.5) high Not Available [facility] [address] [place], [address], 03/23/2019 19:05:49 03/23/2003/23/2019 renal funct ion panel , serum phosphorus 3.2 mg/dL (2.5-4 .5) Not Available [facility] [address] [place], [address], 03/23/2019 19:05:49 03/23/2003/23/2019 renal funct ion panel , serum est GFR non 34 mL/mi n/1.7 3_M2 Creat inine based estim ated glome rular filtr ation rate (eGFR ) is calcu lated using the Chron ic Kidne y Disea se Epide miolo gy Colla borat ion (CKD- EPI). The CKD-E PI creat inine equat ion has not been valid ated in child antonio (<18 years ), pregn ant women or in some racia l or ethni c subgr oups other than Cauca sians and Afric an Ameri cans. Not Available [facility] [address], [address], 03/23/2019 19:05:49 03/23/2003/23/2019 renal funct ion panel , serum est GFR 39 mL/mi n/1.7 3_M2 Creat inine based estim ated glome rular filtr ation rate (eGFR ) is calcu lated using the Chron ic Kidne y Disea se Epide miolo gy Colla borat ion (CKD- EPI). The CKD-E PI creat inine equat ion has not been valid ated in child antonio (<18 years ), pregn ant women or in some racia l or ethni c subgr oups other than Cauca sians and Afric an Ameri cans. Not Available [facility] [address], [address], 03/23/2019 19:05:49 03/23/2003/27/2019 TSH, serum or plasm a TSH 1.05 mIU/m L (0.40- 4.00) Not Available [facility] [address] [place], [address], 03/27/2019 20:19:23 06/12/19 20 06/12/2019 HbA1c (hemo globi n A1c), blood hemoglobin A1C 6.3 % 4.3-5. 8 high Not Available [facility] [address] [place], [address], 06/12/2019 15:32:59 06/12/19 20 06/12/2019 lipid panel , blood HDL 38 mg/dL Inter preta tion <40 mg/dL : Low HDL abrahan stero l (jennifer r risk facto r for CHD) Great er than or equal to 60 mg/dL : High HDL abrahan stero l ( neg ative risk facto r for CHD) HDL - abrahan stero l is affec alexi by a numbe r of facto rs, e.g. becki ashford, delfino ayala, hormo arnaud, sex and age. Not Available [facility] [address] [place], [address], 06/12/2019 15:58:07 06/12/1906/12/2019 lipid panel , blood cholesterol 176 mg/dL 0-240 Not Available [facility] [address] [place], [address], 06/12/2019 15:58:07 06/12/1906/12/2019 lipid panel , blood triglyceride s 199 mg/dL 30-160 high Not Available [facility] [address] [place], [address], 06/12/2019 15:58:07 06/12/1906/12/2019 lipid panel , blood LDL 98 mg/dL 50-129 LDL level s in terms of risk for coron amol heart disea se: <100 mg/dL : Optim al 100-1 29 mg/dL : Near or above optim al 130-1 59 mg/dL : Borde rline high 160-1 89 mg/dL : High >190 mg/dL : Very High Not Available [facility] [address] [place], [address], 06/12/2019 15:58:07 06/12/19 20 06/12/2019 lipid panel , blood cardiac risk ratio 4.6 3.3-4. 4 high Not Available [facility] [address] [place], [address], 06/12/2019 15:58:07 06/12/19 20 06/12/2019 micro album in/cr eatin ine, mass ratio , urine urine microalbumin <1.2 mg/dL 0-2.3 Not Available [facility] [address] [place], [address], 06/12/2019 16:00:19 06/12/19 20 06/12/2019 micro album in/cr eatin ine, mass ratio , urine urine creatinine 58 mg/dL Not Available [facility] ([facility]) [address] [place], [address], 06/12/2019 16:00:19 06/12/19 20 06/12/2019 micro album in/cr eatin ine, mass ratio , urine microalb/cre ratio NOT CALCUL ATED mg/g_ cre 0-20 due to Micro album in <1.2 Not Available [facility] [address] [place], [address], 06/12/2019 16:00:19 06/12/19 20 06/12/2019 CMP, serum or plasm a sodium 139 mmol/ L 133-14 6 Not Available [facility] [address] [place], [address], 06/12/2019 16:09:37 06/12/19 20 06/12/2019 CMP, serum or plasm a potassium 4.8 mmol/ L 3.3-5. 1 Not Available [facility] [address] [place], [address], 06/12/2019 16:09:37 06/12/19 20 06/12/2019 CMP, serum or plasm a chloride 103 mmol/ L 96-108 Not Available [facility] [address] [place], [address], 06/12/2019 16:09:37 06/12/19 20 06/12/2019 CMP, serum or plasm a CO2 23 mmol/ L 21-35 Not Available [facility] [address] [place], [address], 06/12/2019 16:09:37 06/12/19 20 06/12/2019 CMP, serum or plasm a BUN 21 mg/dL 6-19 high Not Available [facility] [address] [place], [address], 06/12/2019 16:09:37 06/12/19 20 06/12/2019 CMP, serum or plasm a creatinine 1.20 mg/dL 0.5-1. 5 Not Available [facility] [address] [place], [address], 06/12/2019 16:09:37 06/12/19 20 06/12/2019 CMP, serum or plasm a glucose 116 mg/dL 70-99 high Not Available [facility] [address] [place], [address], 06/12/2019 16:09:37 06/12/19 20 06/12/2019 CMP, serum or plasm a albumin 4.4 g/dL 3.9-4. 8 Not Available [facility] [address] [place], [address], 06/12/2019 16:09:37 06/12/19 20 06/12/2019 CMP, serum or plasm a total protein 7.7 g/dL 6.5-8. 0 Not Available [facility] [address] [place], [address], 06/12/2019 16:09:37 06/12/19 20 06/12/2019 CMP, serum or plasm a calcium 10.9 mg/dL 8.4-10 .3 high Not Available [facility] [address] [place], [address], 06/12/2019 16:09:37 06/12/19 20 06/12/2019 CMP, serum or plasm a alkaline phosphatase 61 U/L 39-117 Not Available [facility] ([facility] [address] [place], [address], 06/12/2019 16:09:37 06/12/19 20 06/12/2019 CMP, serum or plasm a total bilirubin 0.2 mg/dL 0.0-1. 2 Not Available [facility] [address] [place], [address], 06/12/2019 16:09:37 06/12/19 20 06/12/2019 CMP, serum or plasm a AST 22 U/L 0-37 Not Available [facility] [address] [place], [address], 06/12/2019 16:09:37 06/12/19 20 06/12/2019 CMP, serum or plasm a ALT 9 U/L 0-40 Not Available [facility] [address] [place], [address], 06/12/2019 16:09:37 06/12/19 20 06/12/2019 CMP, serum or plasm a globulin 3.3 g/dL 1-4.8 Not Available [facility] [address] [place], [address], 06/12/2019 16:09:37 06/12/19 20 06/12/2019 CMP, serum or plasm a eGFR 44 mL/mi n/1.7 3m2 >59 low If patie nt is black , multi ply resul t by 1.159 . Estim ated glome rular filtr ation rate calcu lated using the CKD-E PI equat ion. Not Available [facility] [address] [place], [address], 06/12/2019 16:09:37 06/12/19 20 06/12/2019 CMP, serum or plasm a anion gap 18 mmol/ L 10-20 Not Available [facility] [address] [place], [address], 06/12/2019 16:09:37 06/12/19 20 06/12/2019 T4, free, serum free T4 1.4 NG/dL 0.9-1. 7 Not Available [facility] [address] [place] [address], [address], 06/12/2019 16:09:39 06/12/19 20 06/12/2019 TSH, serum or plasm a TSH 1.12 uIU/m L 0.27-4 .20 Not Available [facility] [address] [place] [address], [address], 06/12/2019 16:09:40 01/21/20 20 01/21/2020 HbA1c (hemo globi n A1c), blood hemoglobin A1C 6.1 % 4.3-5. 8 high Not Available [facility] [address] [place] [address], [address], 01/21/2020 11:26:48 01/21/20 20 01/21/2020 lipid panel , blood HDL 36 mg/dL Inter preta tion <40 mg/dL : Low HDL abrahan stero l (jennifer r risk facto r for CHD) Great er than or equal to 60 mg/dL : High HDL abrahan stero l ( neg ative risk facto r for CHD) HDL - abrahan stero l is affec alexi by gilma domingo rs, e.g. becki ng, delfino islary, hormo arnaud, sex and age. Not Available [facility] [address] [place], [address], 01/21/2020 11:36:33 01/21/20 20 01/21/2020 lipid panel , blood cholesterol 163 mg/dL 0-240 Not Available [facility] [address] [place], [address], 01/21/2020 11:36:33 01/21/20 20 01/21/2020 lipid panel , blood triglyceride s 289 mg/dL 30-160 high Not Available [facility] [address] [place], [address], 01/21/2020 11:36:33 01/21/2001/21/2020 lipid panel , blood LDL 69 mg/dL 50-129 LDL level s in terms of risk for coron amol heart disea se: <100 mg/dL : Optim al 100-1 29 mg/dL : Near or above optim al 130-1 59 mg/dL : Borde rline high 160-1 89 mg/dL : High >190 mg/dL : Very High Not Available [facility] [address] [place], [address], 01/21/2020 11:36:33 01/21/2001/21/2020 lipid panel , blood cardiac risk ratio 4.5 3.3-4. 4 high Not Available [facility] [address] [place], [address], 01/21/2020 11:36:33 01/21/2001/21/2020 vitam in D, 25-hy droxy , total , serum 25 oh vit D (total) 37 NG/mL 30-60 Not Available [facility] [address] [place], [address], 01/21/2020 11:50:58 01/21/2001/21/2020 CMP, serum or plasm a sodium 137 mmol/ L 133-14 6 Not Available [facility] [address] [place], [address], 01/21/2020 11:51:29 01/21/2001/21/2020 CMP, serum or plasm a potassium 5.0 mmol/ L 3.3-5. 1 Not Available [facility] [address] [place], [address], 01/21/2020 11:51:29 01/21/2001/21/2020 CMP, serum or plasm a chloride 105 mmol/ L 96-108 Not Available [facility] [address] [place], [address], 01/21/2020 11:51:29 01/21/2001/21/2020 CMP, serum or plasm a CO2 21 mmol/ L 21-35 Not Available [facility] [address] [place], [address], 01/21/2020 11:51:29 01/21/2001/21/2020 CMP, serum or plasm a BUN 27 mg/dL 6-19 high Not Available [facility] [address] [place], [address], 01/21/2020 11:51:29 01/21/2001/21/2020 CMP, serum or plasm a creatinine 1.50 mg/dL 0.5-1. 5 Not Available [facility] [address] [place], [address], 01/21/2020 11:51:29 01/21/2001/21/2020 CMP, serum or plasm a glucose 129 mg/dL 70-99 high Not Available [facility] [address] [place], [address], 01/21/2020 11:51:29 01/21/20 20 01/21/2020 CMP, serum or plasm a albumin 4.3 g/dL 3.9-4. 8 Not Available [facility] [address] [place], [address], 01/21/2020 11:51:29 01/21/20 20 01/21/2020 CMP, serum or plasm a total protein 7.3 g/dL 6.5-8. 0 Not Available [facility] ([facility] [address] [place], [address], 01/21/2020 11:51:29 01/21/2001/21/2020 CMP, serum or plasm a calcium 11.2 mg/dL 8.4-10 .3 high Not Available [facility] [address] [place], [address], 01/21/2020 11:51:29 01/21/2001/21/2020 CMP, serum or plasm a alkaline phosphatase 48 U/L 39-117 Not Available [facility] [address] [place], [address], 01/21/2020 11:51:29 01/21/2001/21/2020 CMP, serum or plasm a total bilirubin 0.3 mg/dL 0.0-1. 2 Not Available [facility] [address] [place], [address], 01/21/2020 11:51:29 01/21/2001/21/2020 CMP, serum or plasm a AST 15 U/L 0-37 Not Available [facility] [address] [place], [address], 01/21/2020 11:51:29 01/21/2001/21/2020 CMP, serum or plasm a ALT 6 U/L 0-40 Not Available [facility] [address] [place], [address], 01/21/2020 11:51:29 01/21/20 20 01/21/2020 CMP, serum or plasm a globulin 3.0 g/dL 1-4.8 Not Available [facility] [address] [place], [address], 01/21/2020 11:51:29 01/21/20 20 01/21/2020 CMP, serum or plasm a eGFR 33 mL/mi n/1.7 3m2 >59 low Estim ated glome rular filtr ation rate calcu lated using the CKD-E PI equat ion. Not Available [facility] [address] [place], [address], 01/21/2020 11:51:29 01/21/20 20 01/21/2020 CMP, serum or plasm a anion gap 16 mmol/ L 10-20 Not Available [facility] [address] [place], [address], 01/21/2020 11:51:29 01/21/20 20 01/21/2020 T4, free, serum free T4 1.1 NG/dL 0.9-1. 7 Not Available [facility] [address] [place], [address], 01/21/2020 11:51:31 01/21/20 20 01/21/2020 TSH, serum or plasm a TSH 1.88 uIU/m L 0.27-4 .20 Not Available [facility] [address] [place], [address], 01/21/2020 11:51:33 01/21/20 20 01/21/2020 micro album in/cr eatin ine, mass ratio , urine urine microalbumin <1.2 mg/dL 0-2.3 Not Available [facility] [address] [place], [address], 01/21/2020 16:09:45 01/21/20 20 01/21/2020 micro album in/cr eatin ine, mass ratio , urine urine creatinine 83 mg/dL Not Available [facility] ([facility] [address] [place], [address], 01/21/2020 16:09:45 01/21/20 20 01/21/2020 micro album in/cr eatin ine, mass ratio , urine microalb/cre ratio NOT CALCUL ATED mg/g_ cre 0-20 due to Micro album in <1.2 Not Available [facility] ([facility] [address] [place], [address], 01/21/2020 16:09:45 09/03/19 21 09/02/2020 CMP, serum or plasm a sodium 139 mmol/ L 133-14 6 Not Available [facility] [address] [place] [address], [address], 09/02/2020 11:43:26 09/03/19 21 09/02/2020 CMP, serum or plasm a potassium 5.3 mmol/ L 3.3-5. 1 high Not Available [facility] ([facility] [address] [place], [address], 09/02/2020 11:43:26 09/03/19 21 09/02/2020 CMP, serum or plasm a chloride 106 mmol/ L 96-108 Not Available [facility] [address] [place], [address], 09/02/2020 11:43:26 09/03/19 21 09/02/2020 CMP, serum or plasm a CO2 23 mmol/ L 21-35 Not Available [facility] [address] [place] [address], [address], 09/02/2020 11:43:26 09/03/19 21 09/02/2020 CMP, serum or plasm a BUN 26 mg/dL 6-19 high Not Available [facility] [address] [place], [address], 09/02/2020 11:43:26 09/03/19 21 09/02/2020 CMP, serum or plasm a creatinine 1.40 mg/dL 0.5-1. 5 Not Available [facility] ([facility] [address] [place], [address], 09/02/2020 11:43:26 09/03/19 21 09/02/2020 CMP, serum or plasm a glucose 114 mg/dL 70-99 high Not Available [facility] ([facility] [address] [place], [address], 09/02/2020 11:43:26 09/03/19 21 09/02/2020 CMP, serum or plasm a albumin 4.3 g/dL 3.9-4. 8 Not Available [facility] ([facility] [address] [place], [address], 09/02/2020 11:43:26 09/03/19 21 09/02/2020 CMP, serum or plasm a total protein 7.6 g/dL 6.5-8. 0 Not Available [facility] ([facility] [address] [place], [address], 09/02/2020 11:43:26 09/03/19 21 09/02/2020 CMP, serum or plasm a calcium 10.7 mg/dL 8.4-10 .3 high Not Available [facility] ([facility] [address] [place], [address], 09/02/2020 11:43:26 09/03/19 21 09/02/2020 CMP, serum or plasm a alkaline phosphatase 56 U/L 39-117 Not Available [facility] ([facility]) [address] [place], [address], 09/02/2020 11:43:26 09/03/19 21 09/02/2020 CMP, serum or plasm a total bilirubin 0.2 mg/dL 0.0-1. 2 Not Available [facility] ([facility] [address] [place] [address], [address], 09/02/2020 11:43:26 09/03/19 21 09/02/2020 CMP, serum or plasm a AST 16 U/L 0-37 Not Available [facility] [address] [place] [address], [address], 09/02/2020 11:43:26 09/03/19 21 09/02/2020 CMP, serum or plasm a ALT 7 U/L 0-40 Not Available [facility] [address] [place] [address], [address], 09/02/2020 11:43:26 09/03/19 21 09/02/2020 CMP, serum or plasm a globulin 3.3 g/dL 1-4.8 Not Available [facility] [address] [place] [address], [address], 09/02/2020 11:43:26 09/03/19 21 09/02/2020 CMP, serum or plasm a eGFR 36 mL/mi n/1.7 3m2 >59 low Estim ated glome rular filtr ation rate calcu lated using the CKD-E PI equat ion. Not Available [facility] [address] [place] [address], [address], 09/02/2020 11:43:26 09/03/19 21 09/02/2020 CMP, serum or plasm a anion gap 15 mmol/ L 10-20 Not Available [facility] [address] [place] [address], [address], 09/02/2020 11:43:26 09/03/19 21 09/02/2020 lipid panel , blood HDL 38 mg/dL Inter preta tion <40 mg/dL : Low HDL abrahan stero l (jennifer r risk facto r for CHD) Great er than or equal to 60 mg/dL : High HDL abrahan stero l ( neg ative risk facto r for CHD) HDL - abrahan stero l is affec alexi by gilma rebollar of facto rs, e.g. becki ashford, delfino ayala, hormo arnaud, sex and age. Not Available [facility] [address] [place] [address], [address], 09/02/2020 12:00:24 09/03/19 21 09/02/2020 lipid panel , blood cholesterol 139 mg/dL 0-240 Not Available [facility] [address] [place] [address], [address], 09/02/2020 12:00:24 09/03/19 21 09/02/2020 lipid panel , blood triglyceride s 164 mg/dL 30-160 high Not Available [facility] [address] [place] [address], [address], 09/02/2020 12:00:24 09/03/1909/02/2020 lipid panel , blood LDL 68 mg/dL 50-129 LDL level s in terms of risk for coron amol heart disea se: <100 mg/dL : Optim al 100-1 29 mg/dL : Near or above optim al 130-1 59 mg/dL : Alyse jacobo high 160-1 89 mg/dL : High >190 mg/dL : Very High Not Available [facility] [address] [place] [address], [address], 09/02/2020 12:00:24 09/03/1909/02/2020 lipid panel , blood cardiac risk ratio 3.7 3.3-4. 4 Not Available [facility] [address] [place], [address], 09/02/2020 12:00:24 09/03/19 21 09/02/2020 HbA1c (hemo globi n A1c), blood hemoglobin A1C 6.2 % 4.3-5. 8 high Not Available [facility] ([facility] [address] [place], [address], 09/02/2020 13:55:19 09/07/19 21 09/06/2020 micro album in/cr eatin ine, mass ratio , urine urine microalbumin <1.2 mg/dL 0-2.3 Not Available [facility] ([facility] [address] [place], [address], 09/06/2020 18:43:58 09/07/19 21 09/06/2020 micro album in/cr eatin ine, mass ratio , urine urine creatinine 34 mg/dL Not Available [facility] ([facility]) [address] [place], [address], 09/06/2020 18:43:58 09/07/19 21 09/06/2020 micro album in/cr eatin ine, mass ratio , urine microalb/cre ratio NOT CALCUL ATED mg/g_ cre 0-20 due to Micro album in <1.2 Not Available [facility] ([facility] [address] [place], [address], 09/06/2020 18:43:58 02/03/20 21 02/02/2021 HEMOG LOBIN A1C hemoglobin A1C 6.1 % 4.3-5. 8 high Not Available [facility] [address] [place], [address], 02/02/2021 10:57:24 02/03/20 21 02/02/2021 LIPID PANEL HDL 36 mg/dL Inter preta tion <40 mg/dL : Low HDL abrahan stero l (jennifer r risk facto r for CHD) Great er than or equal to 60 mg/dL : High HDL abrahan stero l ( neg ative risk facto r for CHD) HDL - abrahan stero l is affec alexi by gilma rebollar of facto rs, e.g. scottyi ng, excer ise, hormo arnaud, sex and age. Not Available [facility] ([facility] [address] [place], [address], 02/02/2021 11:05:04 02/03/20 21 02/02/2021 LIPID PANEL cholesterol 159 mg/dL 0-240 Not Available [facility] ([facility] [address] [place], [id number], 02/02/2021 11:05:04 02/03/20 21 02/02/2021 LIPID PANEL triglyceride s 247 mg/dL 30-160 high Not Available [facility] ([facility] [address] [place], [address], 02/02/2021 11:05:04 02/03/20 21 02/02/2021 LIPID PANEL LDL 74 mg/dL 50-129 LDL level s in terms of risk for coron amol heart disea se: <100 mg/dL : Optim al 100-1 29 mg/dL : Near or above optim al 130-1 59 mg/dL : Borde rline high 160-1 89 mg/dL : High >190 mg/dL : Very High Not Available [facility] ([facility] [address] [place], [id number], 02/02/2021 11:05:04 02/03/20 21 02/02/2021 LIPID PANEL cardiac risk ratio 4.4 3.3-4. 4 Not Available [facility] ([facility] [address] [place], [address], 02/02/2021 11:05:04 02/03/20 21 02/02/2021 25-OH VITAM IN D 25 oh vit D (total) 34 NG/mL 30-60 Not Available [facility] Lab Services (Outpatient) [address] [place], [address], 02/02/2021 11:16:20 02/03/20 21 02/02/2021 COMPR EHENS FORTINO METAB OLIC PANEL sodium 138 mmol/ L 133-14 6 Not Available [facility] (Outpatient) [address] [place], [address], 02/02/2021 11:26:12 02/03/20 21 02/02/2021 COMPR EHENS FORTINO METAB OLIC PANEL potassium 5.2 mmol/ L 3.3-5. 1 high Not Available [facility] (Outpatient) [address] [place], [address], 02/02/2021 11:26:12 02/03/20 21 02/02/2021 COMPR EHENS FORTINO METAB OLIC PANEL chloride 107 mmol/ L 96-108 Not Available [facility] (Outpatient) [address] [place], [address], 02/02/2021 11:26:12 02/03/20 21 02/02/2021 COMPR EHENS FORTINO METAB OLIC PANEL CO2 21 mmol/ L 21-35 Not Available [facility] (Outpatient) [address] [place], [address], 02/02/2021 11:26:12 02/03/20 21 02/02/2021 COMPR EHENS FORTINO METAB OLIC PANEL BUN 28 mg/dL 6-19 high Not Available [facility] (Outpatient) [address] [place], [address], 02/02/2021 11:26:12 02/03/20 21 02/02/2021 COMPR EHENS FORTINO METAB OLIC PANEL creatinine 1.50 mg/dL 0.5-1. 5 Not Available [facility] (Outpatient) [address] [place], [address], 02/02/2021 11:26:12 02/03/20 21 02/02/2021 COMPR EHENS FORTINO METAB OLIC PANEL glucose 117 mg/dL 70-99 high Not Available [facility] (Outpatient) [address] [place], [address], 02/02/2021 11:26:12 02/03/20 21 02/02/2021 COMPR EHENS FORTINO METAB OLIC PANEL albumin 4.3 g/dL 3.9-4. 8 Not Available [facility] (Outpatient) [address] [place], [address], 02/02/2021 11:26:12 02/03/20 21 02/02/2021 COMPR EHENS FORTINO METAB OLIC PANEL total protein 7.2 g/dL 6.5-8. 0 Not Available [facility] (Outpatient) [address] [place], [address], 02/02/2021 11:26:12 02/03/20 21 02/02/2021 COMPR EHENS FORTINO METAB OLIC PANEL calcium 11.1 mg/dL 8.4-10 .3 high Not Available [facility] (Outpatient) [address] [place], [address], 02/02/2021 11:26:12 02/03/20 21 02/02/2021 COMPR EHENS FORTINO METAB OLIC PANEL alkaline phosphatase 56 U/L 39-117 Not Available [facility] (Outpatient) [address] [place], [address], 02/02/2021 11:26:12 02/03/20 21 02/02/2021 COMPR EHENS FORTINO METAB OLIC PANEL total bilirubin 0.3 mg/dL 0.0-1. 2 Not Available [facility] (Outpatient) [address] [place], [address], 02/02/2021 11:26:12 02/03/20 21 02/02/2021 COMPR EHENS FORTINO METAB OLIC PANEL AST 14 U/L 0-37 Not Available [facility] (Outpatient) [address] [place], [address], 02/02/2021 11:26:12 02/03/20 21 02/02/2021 COMPR EHENS FORTINO METAB OLIC PANEL ALT 8 U/L 0-40 Not Available [facility] (Outpatient) [address] [place], [address], 02/02/2021 11:26:12 02/03/20 21 02/02/2021 COMPR EHENS FORTINO METAB OLIC PANEL globulin 2.9 g/dL 1-4.8 Not Available [facility] (Outpatient) [address] [place], [address], 02/02/2021 11:26:12 02/03/20 21 02/02/2021 COMPR EHENS FORTINO METAB OLIC PANEL eGFR 33 mL/mi n/1.7 3m2 >59 low Estim ated glome rular filtr ation rate calcu lated using the CKD-E PI equat ion. Not Available [facility] (Outpatient) [address] [place] [address], [id number], 02/02/2021 11:26:12 02/03/20 21 02/02/2021 COMPR EHENS FORTINO METAB OLIC PANEL anion gap 15 mmol/ L 10-20 Not Available [facility] (Outpatient) [address] [place] [address], [id number], 02/02/2021 11:26:12 02/03/20 21 02/02/2021 FREE T4 free T4 1.4 NG/dL 0.9-1. 7 Not Available [facility] (Outpatient) [address] [place], [address], 02/02/2021 11:26:14 02/03/20 21 02/02/2021 TSH TSH 0.91 uIU/m L 0.27-4 .20 Not Available [facility] (Outpatient) [address] [place], [address], 02/02/2021 11:26:15 02/03/20 21 02/02/2021 MICRO ALBUM IN/CR EATIN INE RATIO , RANDO M URINE urine microalbumin <1.2 mg/dL 0-2.3 Not Available [facility] (Outpatient) [address] [place], [address], 02/02/2021 17:50:10 02/03/20 21 02/02/2021 MICRO ALBUM IN/CR EATIN INE RATIO , RANDO M URINE urine creatinine 97 mg/dL Not Available [facility] (Outpatient) [address] [place], [address], 02/02/2021 17:50:10 02/03/20 21 02/02/2021 MICRO ALBUM IN/CR EATIN INE RATIO , RANDO M URINE microalb/cre ratio NOT CALCUL ATED mg/g_ cre 0-20 due to Micro album in <1.2 Not Available [facility] (Outpatient) [address] [place], [address], 02/02/2021 17:50:10 10/14/19 19 bone densi ty No observ ation record ed. [email or web address] Not Available 2018 14:11:00 03/27/20 19 10/02/2018 MAMMO , scree declan, tomos ynthe sis, bilat eral No observ ation record ed. BARCODE Not Available 2018 15:34:11 03/27/20 19 10/02/2018 bone densi ty No observ ation record ed. BARCODE Not Available 2018 15:34:31 Result Notes None recorded. 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 Brenda Reddy LPN null, [facility] 2 10:11:12 Problem Notes None recorded. Procedures Surgical History Date Name Laterality Status Provider Name and Address Organization Details Recorded Time 8 Unlisted px accessory sinus completed Alla Emerson [facility] 03/27/2019 10:35:47 Imaging Results Imaging Date Name Status LastModified by Organiz ation Details LastModified Time 10/13/2018 bone density completed [email or web address] Information not available 05/07/2019 14:11:00 10/02/2018 MAMMO, screening, tomosynthesis, bilateral completed BARCODE Information not available 03/27/2019 15:34:11 10/02/2018 bone density completed BARCODE Information not available 03/27/2019 15:34:31 Procedure Notes None recorded. Medical Equipment None Reported. Allergies No known drug allergies Medications Name Sig Start Date Stop Date Status Note LastModified by Organization Details LastModified Time metformin 500 mg tablet Take 1 tablet every day by oral route. active every night Not Available Not Available Not Available pravastat in 40 mg tablet Take 1 tablet every day by oral route. active Not Available Not Available No t Available spironola ctone 25 mg tablet Take 1 tablet every day by oral route. active DIURETIC Not Available Not Available No t Available levothyro xine 25 mcg tablet TAKE 1 TABLET(S ) EVERY DAY BY ORAL ROUTE FOR 90 DAYS. 2013 active last appt 03/05, last labs 05/30, upcoming f/u 09/03 Not Available Not Available Not Available levothyro xine 75 mcg tablet TAKE 1 TABLET BY MOUTH EVERY DAY active Not Available Not Available No t Available Aleve 220 mg tablet Take 2 tablets every 12 hours by oral route. 03/27 completed not taking this at this time 03/28/18 -tt Not Available Not Available Not Available levothyro xine 50 mcg tablet TAKE 1 TABLET(S ) EVERY DAY BY ORAL ROUTE FOR 90 DAYS. 09/19 completed dose change Not Available Not Available Not Available pantopraz ole 40 mg tablet,de layed release Take 1 tablet every day by oral route. active Not Available Not Available No t Available aspirin 81 mg chewable tablet Chew 1 tablet every day by oral route. active Not Available Not Available No t Available pravastat in 20 mg tablet Take 1 tablet every day by oral route. 04/01 completed Not Available Not Available Not Available Adult Low Dose Aspirin 81 mg tablet,de layed release Take 1 tablet every day by oral route. 03/27 completed not taking this at this time 03/28/18 -tt Not Available Not Available Not Available Vitamin D3 25 mcg (1,000 unit) capsule Take 4 capsules every day by oral route for 90 days. 2012 active 3 capsules daily in summer months Not Available Not Available Not Available Vitamin D3 1000iu daily active Not Available Not Available No t Available Metamucil active Not Available Not Johanna ilable Not Available Vitamin D3 10 mcg (400 unit) capsule one daily po active Not Available Not Available No t Available amlodipin e 10 mg-benaze pril 40 mg capsule Take 1 capsule every day by oral route. active pt taking 10mg/20m g Not Available Not Available Not Available Vitamin D3 50 mcg (2,000 unit) tablet Take 1 tablet every day by oral route. 04/01 completed Hold per summer pending labs per [place] Not Available Not Available Not Available Aleve 220 mg capsule active 2 a day, AM and PM Not Available Not Available Not Available Vitals Date Recorded Body height Provider Name an d Address Organization Details Last Updated DateTime 09/19/2017 156.21 cm Paula Rothman LPN [facility] 09/19/2017 09:28:48 Date Recorded Body mass index (BMI) Body weight Provider Name and Address Organization Details Last Updated DateTime 09/19/2017 40.5 kg/m2 50270.42 g Paula Rothman LPN [facility] 09/19/2017 09:32:40 Date Recorded Heart rate Provider Name an d Address Organization Details Last Updated DateTime 09/19/2017 72 /min Paula Rothman LPN [facility] 09/19/2017 09:38:21 Date Recorded Body height Provider Name an d Address Organization Details Last Updated DateTime 03/28/2018 156.21 cm Mustapha Breen [facility] 03/28/2018 09:38:45 Date Recorded Body mass index (BMI) Body weight Provider Name and Address Organization Details Last Updated DateTime 03/28/2018 38.3 kg/m2 66732.31 priscila Breen [facility] 03/28/2018 09:43:05 Date Recorded Heart rate Provider Name an d Address Organization Details Last Updated DateTime 03/28/2018 72 /min Mustapha Breen [facility] 03/28/2018 09:44:28 Date Recorded Body height Provider Name an d Address Organization Details Last Updated DateTime 03/27/2019 158.12 cm Alla Emerson [facility] 03/27/2019 10:28:56 Date Recorded Body mass index (BMI) Body weight Provider Name and Address Organization Details Last Updated DateTime 03/27/2019 38 kg/m2 50028.52 priscila Emerson [facility] 03/27/2019 10:28:47 Date Recorded Heart rate Provider Name an d Address Organization Details Last Updated DateTime 03/27/2019 64 /min Alla [facility] 03/27/2019 10:39:24 Date Recorded Body weight Provider Name an d Address Organization Details Last Updated DateTime 04/05/2021 63633.81 g Sri Leahy RN [facility] 04/05/2021 09:49:19 Date Recorded Body mass index (BMI) Body height Provider Name and Address Organization Details Last Updated DateTime 04/05/2021 36.8 kg/m2 158.12 cm Sri Leahy RN [facility] 04/05/2021 09:49:24 Date Recorded Heart rate Provider Name an d Address Organization Details Last Updated DateTime 04/05/2021 86 /min [facility] 04/05/2021 09:55:40 Date Recorded Systolic blood pressure Diastolic blood pressure Provider Name and Address Organization Details Last Updated DateTime 09/19/2017 126 mm[Hg] 70 mm[Hg] Paula Rothman LPN [facility] 09/19/2017 09:37:41 Date Recorded Systolic blood pressure Diastolic blood pressure Provider Name and Address Organization Details Last Updated DateTime 03/28/2018 142 mm[Hg] 73 mm[Hg] Mustapha Breen [facility] 03/28/2018 09:44:24 Date Recorded Systolic blood pressure Diastolic blood pressure Provider Name and Address Organization Details Last Updated DateTime 03/27/2019 122 mm[Hg] 64 mm[Hg] Alla Emerson [facility] 03/27/2019 10:38:49 Date Recorded Systolic blood pressure Diastolic blood pressure Provider Name and Address Organization Details Last Updated DateTime 04/05/2021 118 mm[Hg] 72 mm[Hg] Sri Leahy RN [facility] 04/05/2021 09:57:09 Social History Question Answer Notes LastModified by Organizat ion Details LastModified Time Tobacco Smoking Status Never [facility]2012 08:23:45 What Is Your Level Of Alcohol Consumption? Occasional [email or web address] Information not available 03/28/2018 Which Illicit Or Recreational Drugs Have You Used? 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 With Others Spouse And Son That Comes And Goes Information not available 12/12/2012 Marital Status Informati on not available 12/12/2012 What Was The Date Of Your Most Recent Tobacco Screening? 03/28/2018 Information not available 12/03/2018 How Many Children Do You Have? 5 Information not available 12/12/2012 Do You Use Any Illicit Or Recreational Drugs? No Information not available 04/05/2021 Do You Or Have You Ever Used Any Other Forms Of Tobacco Or Nicotine? No Information not available 04/05/2021 Sex: Unknown Functional Status None recorded. Mental Status None recorded. Family History Relationship Description Onset Age of this Age Resolved Age Notes LastModified by Organization Details LastModified Time Son Malignant tumor of prostate 07/2019 [email or web address] Not available 2019 08:56:16 Notes:Father-does not know h x Mother- age 95- arthirits HTN, thyroid problems, [place] in 60's no siblings MGM- breast cancer MGF- alzheimer's, diabetes, ?RA Mat Aunt- early alzheimer's in 90's and stroke Daughter T1DM Son Afib 03/31: Grandbabies are 10 years old. Magalie is about the same. 04/01: Magalie on pump again; Grands are 11 years old. school from home. 2 Grandsons (one same age as girls) school QOS. 04/02: Lynne?sister are 12 grandsons are - has truck in pieces hoping to build Medical History Condition Response Diabetes Type II Y Pacemaker Y Heart Disease Y Hypertension Y Gynecological HistoryNo gynecological history recorded. Obstetrics History GPAL:G 0 P 0 0 0 0 Immunizations Vaccine Type Date Status Note Provider Nam e and Address Organization Details Recorded Time influenza, unspecified formulation 3 completed Jolie Lopez RN null, [facility] 03/05/2013 10:39:33 Influenza, split virus, quadrivalent, preservative 0 completed Gayle Aguila LPN null, [facility] 04/01/2020 08:57:48 COVID-19, mRNA, LNP-S, PF, 30 mcg/0.3 mL dose 1 completed Sri Leahy RN null, [facility] 04/05/2021 09:50:59 COVID-19, mRNA, LNP-S, PF, 30 mcg/0.3 mL dose 1 completed Sri Leahy RN null, [facility] 04/05/2021 09:51:10 Influenza, split virus, quadrivalent, preservative 1 completed Sri Leahy RN null, [facility] 04/05/2021 09:51:28 Past Encounters Encounter ID Performer Location Encounter Start Date Encounter Closed Date Diagnosis/Indication Diagnosis SNOMED-CT Code Diagnosis ICD10 Code Diagnosis Note [id number] Sharron Benito [facility], [address] [address] 12/12/2012 08:00:19 12/12/2012 09:21:36 Hypercalcemia 49479712 Pt with elevated Calcium in 11 in Jun 2012 and 11.5 in September of 2012 . No other labs available at time of visit. Will have pt get updated calcium as part of a renal panel, but will also have her get PTH, Vit D along with 24 hour urine for Ca, Cr and phos to calculate phosphorus clearance. Discussed causes of elevated Ca which can be parathryoi d disease, FHH, kidney disease. will try to get remainder of records from PCP since only notes from Jun to present are available. Pt indicates problem extends prior to this and that she has perhaps had PTH done in the past. Will f/u 2 weeks after testing to discuss results. Pt does not have hx of kidney stones, is only recently at the 1 point over ULN for her Ca, BMD is normal as of August 2012, age over 50. Pt to go to [address], givencopy of lab slip at time of visit. BMD 08/15/12 [facility] spine-0.4, hips 01.8 neck -1.3 total, forearm +0.14 Jun 2012 Ca 11 [id number] Nalini Garay LPN [facility], [address] [address] 01/08/2013 15:42:16 01/08/2013 17:00:59 Disorder of thyroid gland 57536762 TSh 11 and has had TSH of 4.8 in the past. Given symptoms, recommendi dejon that she do trial of T4 and will have her take 25 mcg of T4 and repeat labs again in 6-8 weeks. Starting with lower than normal dose since FT4 is 0.97. S/e of hyperthyro idism discussed but do not expect her to have these symtpoms. When repeats labs would like to go to [address] since open Saturday AM and pt lives near there. Disorder of vitamin D 916164904 Vit D 18 and PTH slighlty elevated at 75. Caclium stable at 11.0 to 11.2 with normal/low urinary calcium. Most consistent with FHH. Will try to slowly replete D and see if PTH corrects and aches resolve. Will have her take 3000 units of Vit D daily and repeat labs when repeats TSH and FT4 in 6 weeks. Hypercalcemia 02564504 s ee above. Will continue to monitor Calcium levels. 24 hour urine studies most consistent ly with FHH. Explained to pt that people with FHH have higher set points for calcium. If correction of D and TSH does not alleviate symptoms, and calcium remain elevated then will reevaluate at that time. [id number] Nalini Garay LPN [facility], [address] [address] 03/05/2013 10:31:44 03/05/2013 11:40:00 Disorder of thyroid gland 96831232 TSH was 11 and is now in 4's again with FT4 1.13. Pt to continue on 25 mcg daily of T4. f/u in 6 months labs q [address]. [address]Kirchof rojas in a few weeks to have f/u on her LBBB (preexisti ng condition) . Pt had echo in November and told has 20-30% blockage. Pt states on ASA and statin for this. When repeats labs would like to go to [address] since open Saturday AM and pt lives near there. Disorder of vitamin D 762702533 Vit D is now 26. Ca normal at 10.6, Will have her increase Vit D to 4000 units to get level over 30 and continue this through the winter. Will continue to monitor Ca in renal panel. Labs q 3 months and f/u in 6 months. repeat labs with next TSH in 3 months. Hypercalcemia 37805853 C a normal at 10.6 . see above. Hx=24 hour urine studies most consistent ly with FHH. If correction of D and TSH does not alleviate symptoms, and calcium remain elevated then will reevaluate at that time. Left [facility] [id number] TSH improved to 4 from 11. Do not think T4 could be reason for extra beat pt is feeling. Pt to have f/u with Dr. Estevez in a few weeks and will discuss with him as well. [id number] [facility], [address] [address] 09/03/2013 10:31:16 09/03/2013 11:33:21 Disorder of thyroid gland 55137378 Is seeing Dr.Kirchof rojas in a few weeks to have f/u on her LBBB (preexisti ng condition) . Pt had echo in November and told has 20-30% blockage. Pt states on ASA and statin for this. labs would like to go to [address] since open Saturday AM and pt lives near there. Disorder of vitamin D 320400979 Hypercalcemia 40726052 H x=24 hour urine studies most consistent ly with FHH. If correction of D and TSH does not alleviate symptoms, and calcium remain elevated then will reevaluate at that time. Left [facility] e branch block [id number] contf/u with Dr. Estevez . [id number] [facility], [address] [address] 03/04/2014 14:26:06 03/04/2014 15:23:06 Disorder of thyroid gland 13737201 Disorder of vitamin D 396708069 Hypercalcemia 44220237 H x=24 hour urine studies most consistent ly with FHH. If correction of D and TSH does not alleviate symptoms, and calcium remain elevated then will reevaluate at that time. Left [facility] block [id number] contf/u with Dr. Estevez . [id number] [facility], [address] [address] 09/21/2014 09:20:13 09/21/2014 10:22:15 Disorder of thyroid gland 67072107 TSH was 11 in 2012 and pt started on T4. TSH stable and to goal. Cont on 50 mcg daily of T4. f/u in 12 months labs q 6 months. Call if symptoms in the meantime and can decide about drawing labs sooner than recommende d date. Lab pt prefers is [address] since open Saturday AM and pt lives near there. Disorder of vitamin D 304725824 Vit D replete at 47 and Ca normal at 10.6,cont Vit D to 4000 units. Labs q 6 months and f/u yearly. Hypercalcemia 03103546 C a normal at 10.6 . see above. Hx=24 hour urine studies most consistent ly with FHH. If correction of D and TSH does not alleviate symptoms, and calcium remain elevated then will reevaluate at that time. Left [facility] [id number] Follows with Dr.Kirchof rojas --hx of LBBB (preexisti ng condition) . Pt had echo in November 2013 and told has 20-30% blockage. Pt states on ASA and statin for this. last appt May 2014 when had pacer replaced. F/u with Dr. Estevez . [id number] Maryuri Torres PA-C [facility], [address] [address] 09/20/2015 09:34:26 09/20/2015 10:19:42 Disorder of thyroid gland 86230830 E07.9 TSH 4 and pt typically in 2's. Will try 75 mcg daily and repeat labs in 8 weeks. Will contact her if dose needs further adjustment after labs. Labs q 4 months after dose stable. f/u in 12 months. Call if symptoms in the meantime and can decide about drawing labs sooner than recommende d date. Lab pt prefers is [address] since open Saturday AM and pt lives near there. Disorder of vitamin D 38 3282883 E56.9 Vit D remaining replete Ca stable at 10.6. Cont Vit D to 4000 units. Labs q 6 months (March and September) and f/u yearly. Hypercalcemia 09440222 E 83.52 PTH normal. Ca normal at 10.6 . Cont to monitor q 6 months (March and September). Hx=24 hour urine studies most consistent ly with FHH. If correction of D and TSH does not alleviate symptoms, and calcium remain elevated then will reevaluate at that time. [id number] Maryuri Torres PA-C [facility], [address] [address] 09/20/2016 09:44:08 09/20/2016 10:26:42 Disorder of thyroid gland 44307780 E07.21 Jun 2016 labs to goal on 75 mcg of T4 daily. Cont this dose with labs q 6 months. F/u in 12 months. Lab pt prefers is [address] since open Saturday AM and pt lives near there. Disorder of vitamin D 38 9666206 E56.9 see below. Cont Vit D to 4000 units. Hypercalcemia 33467822 E 83.52 PTH had been normal in setting of normal Ca and Vit D. In Jun PTH slighty higher but question is related to Vit D slightly lower over the winter. Ca had remained normal. Will update PTH and Vit D along with Ca on way out and may need to adjust Vit D dosing if no longer replete. Will contact pt with results. Hx=24 hour urine studies most consistent ly with FHH. If correction of D and TSH does not alleviate symptoms, and calcium remain elevated then will reevaluate at that time. ADDENDUM: 10/20/16 PTH 71.1 and Vit D 81.8 on repeat testing above and back to pt baseline. Ca stable at 10.5 cont to monitor. Type 2 chanel betes mellitus without complication 132024453 E11.9 Managed by PCP and per pt A1c under 7. [id number] Maryuri Torres PA-C [facility], [address] [address] 06/10/2017 09:27:23 06/10/2017 10:47:39 Disorder of thyroid gland 74858476 E07.21 Mar 2017 labs to goal on 75 mcg of T4 daily. Cont this dose with labs q 6 months. Keep f/u in September. Lab pt prefers is [address] since open Saturday AM and pt lives near there. Disorder of vitamin D 38 0238080 E56.9 see below. Cont Vit D to 4000 units but want to update. 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 If D remaining high will reduce D level. May be able to lower D level. Keep appt in September. Hypercalcemia 63150629 E 83.52 PTH had been normal in setting of normal Ca and Vit D. Never got repeat Mar lab from [facility], looking at results in [facility] Ca lowered. Repeat renal panel and Vit D today. May be able to lower Vit D level. PTH has remained stable. Will contact pt with results.Sequeira s September f/u. Hx=24 hour urine studies most consistent ly with FHH. If correction of D and TSH does not alleviate symptoms, and calcium remain elevated then will reevaluate at that time. Type 2 chanel betes mellitus without complication [id number] E11.9 Managed by PCP and per pt A1c under 7. [id number] Maryuri Torres PA-C Endocrino logy, [address] [address] 09/19/2017 09:24:45 09/19/2017 10:10:11 Disorder of thyroid gland [id number] E07.19 August 2017 labs to goal.Cont levothyrox ine 75 mcg daily Labs q 6 months. Keep f/u in 6 months. Lab pt prefers is [address] since open Saturday AM and pt lives near there. Disorder of vitamin D 38 4296316 E56.9 Vit D was in 80's so dropped to 2000 units daily. Current testing remaining in 60's. With summer coming will have her take 1000 units daily and then in FAll (January - July) Take 2000 units in the winter. Hypercalcemia [id number] E 83.52 PTH rising in setting of replete D and normal Calcium. Question kidney etiology at this time. Pt indicates has started diuretic that she does not recall the name of since her last visit. Would like her to discuss kidney changes as evidenced in recent rise in Cr and BUN on diuretic with PCP and see if alternate med to control BP. If kidney function does not correct with change to BP meds then would consider further renal w/u to rule out changes before assuming endocrine cause for elevated PTH at this time. Urine calcium levels in past consistent with FHH complicati ng evaluation but current calcium normal at 10.5. Repeat renal panel in 2 weeks to monitor renal function while pt contacts PCP to make appt to discuss kidney evaluation and diuretic use. Hx=24 hour urine studies most consistent with FHH. Type 2 chanel betes mellitus without complication [id number] E11.9 Managed by PCP and per pt A1c under 7 on low dose metformin ACR negative as well as of September 2017 testing with PCP. [id number] Maryuri Torres PA-C Endocrino logy, [address] [address] 03/28/2018 09:34:36 03/28/2018 10:29:32 Disorder of thyroid gland 17721494 E07.9 TSH normal Feb TSH 0.81 FT4 1.5 Cont levothyrox ine 75 mcg daily Labs q 6 months. Keep f/u in 6 months. Lab pt prefers is [address] since open Saturday AM and pt lives near there. Disorder of vitamin D 38 0693194 E56.9 03/12/18 Vit D still > 60. She had increased to 2000 units in February but do not have to increase. Will have her take 1000 units daily and check again in May 2018. Hypercalcemia 19632635 E 83.52 PTH remains high in setting of replete D and stable calcium. 24 Hour urine testing consistent with FHH when reviewed with supervisin g physician. Again reviewed premise of FHH with patient and importance of letting her children know so that should they have elevated calciums they can be evaluated. Baseline calcium for her will be mildly elevated given dg of FHH (familial hypocalciu mary hypercalce jeremías). GFR in 30's and feel PTH abnormalit y is kidney in nature. Recommend that pt connect to nephrologi st for baseline at this time and can monitor. She remains on Jose. Discussed importance of good hydration for both kidneys and calcium levels . Monitor renal panel with Vit D in May and then q 6 months after that. Recommend she update her bone density in the setting of PTH elevation related to kidney function. f/u in Endocrine yearly unless changes. Hx=24 hour urine studies most consistent with FHH. Type 2 chanel betes mellitus without complication [id number] E11.9 Managed by PCP and per pt A1c under 7 on low dose metformin. Per pt a1c 6.1 at last testing. [id number] Jamaal Ham MD Endocrino [facility], [address] [address] 03/27/2019 10:18:13 03/27/2019 11:30:27 Type 2 diabetes mellitus without complication 052616250 E11.9 On metformin 500 mg daily- decreased by PCP Kristine because of increased creatinine .Doing well. With PCP's longterm , pt. asking for more diabetes care here. Disorder of vitamin D 38 3015019 E55.9 42.2 (03/31); had been low in past but not in past years. Hypercalcemia 98633694 E 83.52 FHH as evidenccd by low urinary calcium (41 mg/24hr in 10/28) and high serum calcium.Cr eat= 1.5 (lately 1.3-1.6); Ca= 10.9 (was 10.8) ; Phos= 3.2 Hypothyroidism 68880906 E03.9 On 75 mcg levothyrox ine.Doing well clinically . [id number] Jamaal Ham MD Endocrino [facility], [address] [address] 04/01/2020 08:45:09 04/01/2020 20:00:33 Type 2 diabetes mellitus without complication [id number] E11.9 On metformin 500 mg daily- decreased by PCP Kristine because of increased creatinine .Doing well.a1c in 6s. no evidence of complicati ons at present. Disorder of vitamin D 38 1068919 E55.9 37 (01/30); was 42.2 (03/31); had been low in past but not in past years.Take s 1000 units daily. Hypercalcemia 75548440 E 83.52 FHH as evidenced by low urinary calcium (41 mg/24hr in 10/28) and high serum calcium.Cr eat= 1.5 (lately 1.3-1.6); Ca= 10.9 (was 10.8) ; Phos= 3.2 Hypothyroidism 10338451 E03.9 On 75 mcg levothyrox ine.Doing well clinically . Dyslipidem ia due to type 2 diabetes mellitus [id number] 02 E78.5 2020: 163/289/36 /;With high TG and low HDL.Encour age more activity.I f remains high, would consider either change to atorva, rosuva or possible addition of Vascepa. [id number] Jamaal Ham MD Endocr[facility] log[facility], [address] [address] 04/05/2021 09:42:53 04/07/2021 06:32:39 Type 2 diabetes mellitus without complication [id number] E11.9 On metformin 500 mg daily- decreased by PCP (Valarie Dietz). Hession/Riddhi reyDoing well.a1c in 6s. no evidence of complicati ons at present. Disorder of vitamin D 38 3296398 E55.9 34 (01/31); was 37 (01/30); was 42.2 (03/31); had been low in past but not in past years.Take s 1000 units daily. Hypercalcemia 78021928 E 83.52 FHH as evidenced by low urinary calcium (41 mg/24hr in 10/28) and high serum calcium.Cr eat= 1.5 (lately 1.3-1.6); Ca= 10.9 (was 10.8) ; Phos= 3.2 Hypothyroidism 13557948 E03.9 On 75 mcg levothyrox ine.Doing well clinically . Re-order levothyrox ine today with refill x 6 but will ask pt. to have PCP refill future Rx's. Dyslipidem ia due to type 2 diabetes mellitus [id number] 02 E78.5 2020: 159-247 (were 164)-36 2020: 163/289/36 /69; With high TG and low HDL.Encour age more activity.I f remains high, would consider either change to atorva, rosuva or possible addition of Vascepa. Health Concerns Section Related Observation LastModified by Organization Detai ls LastModified Time None Recorded Concern Status LastModified by Organization Details LastModified Time None Recorded Advance Directives Directive None Recorded Payers Encounter Date Sequence Insurance Name Policy Number Policy Lara Covered Member ID Lara Member ID Guarantor Name 09/19/2017 1 [place] [employer] Annetta E McElwey [id number] Annetta Chinyere McElwey 09/19/2017 2 [place] [id number] Annetta Brushton McElwey [id number] Annetta Brushton McElwey 03/28/2018 1 [place] [employer] Annetta E McElwey [id number] 0 Annetta Chinyere McElwey 03/28/2018 2 [place] [id number] Annetta Chinyere McElwey [id number] Annetta Chinyere McElwey 03/27/2019 1 [place] [employer] Annetta E McElwey [id number] 0 Annetta Chinyere McElwey 03/27/2019 2 [place] [id number] Annetta Brushton McElwey [id number] Annetta Brushton McElwey 04/01/2020 1 [place] [employer] Annetta E McElwey [id number] 0 Annetta Brushton McElwey 04/01/2020 2 [place] [id number] Annetta Chinyere McElwey [id number] Annetta Strickland 04/05/2021 1 [place] [employer] Annetta Strickland [id number] 0 Annetta Strickland 04/05/2021 2 [place] [id number] Annetta Hendersony [id number] Annetta Strickland Notes Date Note Type Note Provider Name and Address Organization Details Recorded Time 8 text/html 71-year-old woman with hypothyroidism, hypercalcemia secondary to FH H, and vitamin D deficiency with hyperparathyroidism. She was last seen generated 2017. Labs: See above. Vitamin D is in the 60s, calcium is normal at 10.5, parathyroid hormone remains elevated. Thyroid medication: 75 ? ? ?g level thyroxine daily. She states she misses a few occasional doses but in general is consistent. She has it near her bedside that she can take it first thing in the morning away from food with a full glass of water. Vitamin D deficiency: She is currently on 2000 units daily as of June 10. Her vitamin D at that time was 83 so her dose was lowered from 1572-4797 units. Type 2 diabetes: This is managed by her primary care provider. Her A1c is consistently in the sixes on metformin 500 mg twice a day Review of systems since last visit she has began on a diuretic for her blood pressure and fluid retention under her primary care guidance. She does not know the name of this diuretic. She states her blood pressure has been good. She does stay hydrated, reporting drinking a glass of water with each meal and a half a glass of water between meals. She thinks her urine volumes are low considering she began diuretic. She has O's has low urine but states that since beginning the diuretic she has not had an increase in urination volumes. She may go an extra once or twice a day but the volumes are still small. She has no abdominal pain constipation diarrhea and nausea or vomiting. She has no pelvic pain or pressure or difficulty initiating urine stream. She does report some fatigue that has improved with changing sleep habits. She is trying to go to bed earlier at 10 o'clock. She and her primary care discuss sleep apnea. Remainder of review of systems as below Maryuri Torres PA-C [address] [place], [phone], [facility] 09/19/2017 10:17:57 8 text/html A 72-year-old woman with hypothyroidism and hypercalcemia secondary to FH H. Her last visit was 09/19/2017. Medication levothyroxine 75 ? ? ?g daily, vitamin D 2000 units daily Labs: 03/12/2018. Patient indicated she had a renal panel but I do not have the results for that. Her vitamin D on this day was greater than 60 (taking 2000 units of vitamin D only since early February), TSH was 0.81 free T4 was 1.5 LFTs were normal 02/03/2018 glucose was 138, creatinine was 1.4, calcium 11.3, GFR 37. Her calciums have ranged between 10.5 and 10.7 with a spiked to 11.2 on 3 occasions; 2013, 04/02/2017, and 10/11/2017. Her last 24 hour urine testing was done 10/29/2017 and was consistent with FH H. 24-hour calcium was low at 3.9 mg/dL, phosphorus is 56.8 mg/dL volume was 1050 mL, 24 hour creatinine was 96 mg/dL. Her last parathyroid hormone was 09/12/2017 and 91. It ranges typically from 62-83. This is the only one above 83. She is on spironolactone. Review of systems she said since her last visit she has had a sinus fungal infection and is due to have surgery on 04/15/2018. Apparently she indicates that ENT says surgery is the only treatment for this. It began with a headache in January that worsened upon waking. It did not stop. It was different than her migraines. She is undergone CT, amoxicillin treatment, migraine treatment, referral to ENT and a total of 2 further CAT scans. She was told to stop her Advil for pain and only take Tylenol. She is hoping surgery will correct the pain she is having in her sinuses. Remainder of review of systems as below. This is dictated using Silent Edge voice dictation software. Maryuri Torres PA-C [address] [place], [phone], [facility] 03/31/2018 13:40:03 9 text/html DiabetesReported bypatient.Labs:last Hemoglobin A1C: (6s.); serum creatinine: mildly elevated but stable (1.5 (2019); has been 1.3-1.6) Diabetes Medications:metformin (500 daily (recent decrease due to rise in creatinine)) Renal/HTN Medications:spironolacton e (25mg); amlodipine (10)/ benazepril (40). Lipid Medications:pravastatin (20) Review blood sugar:monitoring glucose daily; Tend to run 130-140s. Had been 120s on more metformin. Associated Symptoms:no polyuria; no nocturia (1x;); no burning or discomfort with urination; no foul odor or discharge; no blurred vision; no weight gain; no weight loss Cardiac / Eye / Podiatric / Renal / Vascular Symptomscoronary artery disease s/p pacemaker; no retinopathy ([place]); no numbness of feet;kidney disease chronic renal insufficiency Hypoglycemia Symptomsfrequency of hypoglycemic episodesinfrequently (metformin only.)ThyroidReported bypatient.Previous Evaluation:TSH: (0.8 (02/27)); free T4: (1.5 (.)) Treatment:levoxyl, dose: 75 mcg (takes in AM.); *30-45 minutes between pill and breakfast. * Constitutional:no heat intolerance; no weight loss; no weight gain;cold intolerance(increasing over the last couple of years.) Eyes:no double vision; no dry eyes; No blurry vision Neck:no difficulty swallowing; no masses Heart:no rapid heart rate; no palpitations; no chest pain; no tightness or pressure; Uses pacemaker 90% of time. GI:no constipation; no diarrhea Neurological:no tremor; no insomnia (occasional);anxiety(occa sional) rKistine is PCP- has been taking care of T2DM. will be retiring.[facility]- for pacer.Renal- none. T2DM, hypothyroidism and hypercalcemia secondary to FHH. fell down stairs after LOC at top of stairs. Had implanted monitor that showed heart stopped- woke at bottom of stairs. Eventually got pacemaker placed.thinks right shoulder rotator injury (couldn't do MRI)- PT and visits since 07/29.pacer being used 10% of time. Hx of hypercalcemia thought to be due to FHH.No hx of kidney stones. BMD: [facility]. 2018. ROS: No fevers or chills.Had sinus fungal infection in 2018.Can be SOB if rushing and gets anxiousNo muscle aches or pains. No cramping.No dizziness with standing in AM. No bruises or rashes. ` Jamaal Ham MD [address] [place] [address], [phone], [facility] 03/30/2019 15:28:25 0 text/html DiabetesReported bypatient.Labs:last Hemoglobin A1C: 6s at goal (6.1 (01/30)); microalbumin/creatinine ratio: 2019 normal; serum creatinine: mildly elevated but stable (1.5 (01/30 and 2018); has been 1.3-1.6); LDL (69 (01/30);); Triglycerides (289 (01/30);); HDL (36 (01/30):) Diabetes Medications:metformin (500 daily (recent decrease due to rise in creatinine)) Renal/HTN Medications:spironolacton e (25mg); amlodipine (10)/ benazepril (40). Lipid Medications:pravastatin (20) Review blood sugar:monitoring glucose daily; Tend to run 130-140s. Had been 120s on more metformin. Associated Symptoms:no polyuria; no nocturia (1x;); no burning or discomfort with urination; no foul odor or discharge; no blurred vision; no weight gain; no weight loss; Currently 206. was 212. Cardiac / Eye / Podiatric / Renal / Vascular Symptomscoronary artery disease s/p pacemaker; no retinopathy ([place] (due)); no numbness of feet;kidney disease chronic renal insufficiency Hypoglycemia Symptomsfrequency of hypoglycemic episodesinfrequently (metformin only.); [place] funny (Shivering in middle of night- trembling) one night- BG was 120. Lasted over an hour- went to chair and dozed on/off for a while.Notes:04/01: 163/289/36/69; on prava. discussed impact of exercise and options for atorva, rosuva or vascepa. BG fastin/20 142 03/31 145 03/30 140 03/29 126 03/28 133 03/27 ......................... ......................... ......................6:3 1pm 111 03/25 144 03/24 116 03/23 139 03/22 127 Pt. feels 140s if does NOT have snack night before. ThyroidReported bypatient.Previous Evaluation:TSH: (1.88 (01/30); was 1.12; was 0.8 (02/27)); free T4: (1.1 (01/30); was 1.5 (.)) Treatment:levoxyl, dose: 75 mcg (takes in AM.); *30-45 minutes between pill and breakfast. * Constitutional:no cold intolerance; no heat intolerance; no weight loss; no weight gain; hands cold if temp < 70. Eyes:no double vision; no dry eyes; No blurry vision Neck:no difficulty swallowing; no masses Heart:no rapid heart rate; no palpitations; no chest pain; no tightness or pressure; Uses pacemaker 90% of time. GI:no constipation; no diarrhea Neurological:no tremor; no insomnia (occasional);anxiety(occa sional)Notes:SOB with stress or doing a lot of movement (e.g, making supper with multiple courses).Emotionally stresses too. Little more than in past.Checks in by phone with tracings periodically.Suggest she contact [facility] when happening. HAIR: no changesNAILS: No breaking/splitting. PCP- Valarie Dietz.[facility]- for pacer.Renal- none. Patient agreed to this visit via phone or secure telehealth platform due to the COVID -19 pandemic. Patient understands this is a scheduled visit and the usual procedures with regard to billing and confidentiality apply. Patient was notified that the provider location is [facility] Patient location: home During the visit the patient? s medical history and medical record were reviewed. The patient was notified to call our office for worsening or urgent symptoms. T2DM, hypothyroidism and hypercalcemia secondary to FHH. fell down stairs after LOC at top of stairs. Had implanted monitor that showed heart stopped- woke at bottom of stairs. Eventually got pacemaker placed.thinks right shoulder rotator injury (couldn't do MRI)- PT and visits since 07/29.pacer being used 10% of time. Hx of hypercalcemia thought to be due to FHH.2018: urine Ca= LOW= 3.9 mg/dL (31 mg/24 hrs)No hx of kidney stones.BMD: Done at [facility]. 2018. ROS: No fevers or chills.Had sinus fungal infection in 2018.Can cough or SOB (besides described elsewhere with activity or stress)No muscle pains. No cramping. Gets leg cramps- has tonic water nightly. No dizziness with standing in AM. No bruises, itching or rashes. Jamaal Ham MD [address] [place] [address], [phone], [facility] 04/01/2020 09:48:45 1 text/html DiabetesReported bypatient.Labs:last Hemoglobin A1C: 6s at goal (6.1 (01/31); was 6.2 (08/31); was 6.1 (01/30)); microalbumin/creatinine ratio: 2020 normal; serum creatinine: mildly elevated but stable (1.5 (01/31); generally 1.3-1.6); LDL (784 (01/31); was 69 (01/30);); Triglycerides (247 (01/31); was 164 (08/31); was 289 (01/30);); HDL (36 (01/31); was 38 (08/31); was 36 (01/30):) Diabetes Medications:metformin (500 daily (recent decrease due to rise in creatinine)) Renal/HTN Medications:spironolacton e (25mg); amlodipine (10)/ benazepril (40). Lipid Medications:pravastatin (40) Review blood sugar:monitoring glucose daily; Tend to run 130-140s. Had been 120s on more metformin. Associated Symptoms:no polyuria; no nocturia (1x;); no burning or discomfort with urination; no foul odor or discharge; no blurred vision; no weight gain; no weight loss; Currently 210 at home. Had been around 206. was 212. Cardiac / Eye / Podiatric / Renal / Vascular Symptomscoronary artery disease s/p pacemaker; no retinopathy ([facility] [place])); no numbness of feet;kidney disease chronic renal insufficiency Hypoglycemia Symptomsfrequency of hypoglycemic episodesinfrequently (metformin only.); Occ sx of shaking but if checks, hasn't seen low value. Nothing below 90-100.Notes: 01/31:159-247 (were 164)-36-: 163/289/; on prava.discussed impact of exercise. BG fastin-146 (04/02); was 116-145 (04/01) Pt. feels 140s if does NOT have snack night before. ThyroidReported bypatient.Previous Evaluation:TSH: (0.91 (01/31); was 1.88 (01/30); was 1.12; was 0.8 (02/27)); free T4: (1.4 (01/31); was 1.1 (01/30); was 1.5 (.)) Treatment:levoxyl, dose: 75 mcg (takes in AM.); *30-45 minutes between pill and breakfast. * Constitutional:no heat intolerance;cold intolerance(dressed at home and wears bathrobe and blanket. House is set at 70. feels cold too.) Eyes:no dry eyes; No blurry vision Neck:no difficulty swallowing; no masses Heart:no rapid heart rate; no palpitations; no chest pain; no tightness or pressure; Uses pacemaker 90% of time. Very rare racing once in a great while . 1-2x per year. GI:no constipation; no diarrhea Neurological:no tremor; no insomnia (occasional 1-2x per night.);anxiety(occasiona l)Notes:HAIR: no changesNAILS: Some breaking/splitting. 04/02: Ongoing sx of SOB with stress or doing a lot of movement (e.g, making supper with multiple courses).Emotionally stresses too.Checks in by phone with tracings periodically.Will be seeing new [facility] in [employer].But also has had nuclear ETT at [place]. PCP- Valarie Dietz.CARDIAC: Switching to [place] ([employer])- for pacer. T2DM, hypothyroidism and hypercalcemia secondary to FHH. fell down stairs after LOC at top of stairs. Had implanted monitor that showed heart stopped- woke at bottom of stairs. Eventually got pacemaker placed.thinks right shoulder rotator injury (couldn't do MRI)- PT and visits since 07/29.pacer being used 10% of time. Hx of hypercalcemia thought to be due to FHH.2018: urine Ca= LOW= 3.9 mg/dL (31 mg/24 hrs)No hx of kidney stones.BMD: Done at [facility]. 2018. ROS:No fevers or chills.Had sinus fungal infection in 2018.Can cough or SOB (besides described elsewhere with activity or stress)No muscle pains. No cramping. Gets leg cramps- has tonic water nightly. No dizziness with standing in AM.No bruises, itching or rashes. Jamaal Ham MD [address] [place] [address], [phone], [facility] 04/05/2021 22:06:34 OBGyn Episode No OBEpisode recorded.
--- OUTSIDE RECORDS SUMMARY | 2024-06-08 07:39 | XMS_ITS | Patient Health Record ---
Author Organization [facility] Address [address] [place] [address] Care Team Providers Care Binder Fixer Name Role Phone Archie Finch MD Primary Care Provider Cash Casanova [phone] ALLERGIES Allergen (clinical drug ingredient) Drug/Non Drug Allergy documented on EMR Reaction Allergy Type Onset Date Status angiotensin-converting enzyme inhibitor (FN) EMELIA Inhibitors Unknown Drug Allergy Acti ve RESULTS Component Value Reference Range Notes Glucose, Whole Blood Reviewed date:10/03/2023 09:15:19 AM Interpretation: Performing Lab:[facility], [address] [place] [phone] Notes/Report: Glucose, Whole Blood 128 60-115 mg/dL METER # : [id number] Pathology Reviewed date:10/19/2023 09:51:24 PM Interpretation: Performing Lab:[facility], [address] [place] [phone] Notes/Report: MAMMOGRAM DIGITAL BILATERAL SCREEN Reviewed date:03/03/2024 [...] Orally every 6 hrs Active Biotin Maximum 41174 MCG as directed Orally Active Rosuvastatin Calcium [...] Epigastric pain (R10.13) Active confirmed Epigastric pain (47150107) Problem Encounter for screening for malignant neoplasm of colon (Z12.11) Active confirmed 639454338 Problem History of adenomatous polyp of colon (Z86.010) Active confirmed 084064208 Problem Ulcer of esophagus without bleeding (K22.10) Active confirmed Ulcer of esopha silva (70726699) Problem Diverticulosis of large intestine without perforation or abscess without bleeding (K57.30) Active confirmed Diverticul ar disease of colon (401817422) Problem Gastroesophageal reflux disease without esophagitis (K21.9) Active confirmed 776079288 Problem Hiatal hernia (K44.9) Active confirmed Hiatal hernia (27464726) Problem Gastritis, chronic (K29.50) Active confirmed Chronic gastrit is (9289145) Problem Abnormal CT scan, colon (R93.3) Active confirmed Computed tomography result abnormal (826644361) Problem Erosive esophagitis (K22.10) Active confirmed Erosive esophagitis (06669426) Problem Irregular bowel habits (R19.8) Active confirmed 859124171 Problem Incontinence of feces, unspecified fecal incontinence type (R15.9) Active confirmed 43573186 Problem Hernia, hiatal (K44.9) Active confirmed Diaphragmatic hernia (57374400) Problem Chronic GERD (K21.9) Active confirmed Gastroesophagea l reflux disease (575355928) VITAL SIGNS Temperature 96.9 degrees Fahrenheit 09/18/2023 Blood pressure diastolic 74 mm Hg 03/03/2024 Height 62.50 in 03/03/2024 Blood pressure systolic 130 mm Hg 03/03/2024 Weight 197 lbs 03/03/2024 BMI 35.45 kg/m2 03/03/2024 Encounters Encounter Location Date Provider Diagnosis [facility] Outpatient [address] [place] [id number] 10/03/[address] scan, co karena R93.3 ; Diverticulosis of large intestine without perforation or abscess without bleeding K57.30 ; Other hemorrhoids K64.8 ; Ulcer of esophagus without bleeding K22.10 ; Hiatal hernia K44.9 ; Gastritis, chronic K29.50 ; Hematemesis K92.0 and Abdominal pain R10.9 [facility] [address] [place] [phone] 10/23/2023 Cash Mercado [facility] [address] [place] [phone] 09/18/[address] scan, co karena R93.3 ; Chronic GERD K21.9 ; Epigastric pain R10.13 and Hiatal hernia K44.9 [facility] [address] [place] [phone] 03/03/2024 Cash Mercado Erosive esophagitis K22.10 and Hernia, hiatal K44.9 [facility] [address] [place] [phone] 09/22/2023 Cash Mercado [facility] [address] [place] [phone] 10/03/2023 Cash Mercado [facility] [address] [place] [phone] 03/15/2024 Cash Mercado [facility] [address] [place] [phone] 03/26/2024 Cash Mercado ASSESSMENTS Encounter Date Diagnosis [...] Insured Coverage Start Date Coverage End Date [facility] [address] [place] [address] [id number] LULI DE LUNA Self - patient is the insured MEDICAL (GENERAL) HISTORY Medical History History ICD Code NIDDM Hyperlipidemia Hypertension Pacemaker Arthritis Denies AK,CVA,Lung disease,renal disease Urinary incontinence-mild Hypothyroidism Tubular adenomas [...]
--- OUTSIDE RECORDS SUMMARY | 2024-06-08 07:39 | XMS_ITS ---
Author Organization [facility] Address [address] [place] [phone] Care Team Providers Care General Foreman Name Role Phone Archie Finch MD Primary Care Provider Cash Casanova [phone] REASON FOR VISIT out of omeprazole requesting r/f Encounters Encounter Location Date Provider Diagnosis [facility] [address] [place] [phone] 03/26/2024 Cash Mercado PLAN OF TREATMENT No Information
[2024-06-08 08:21] LABS: Magnesium 1.6 mg/dL (1.6-2.6)
== END 2024-06-08 07:36 | disposition home or self-care (01) ==
LOC: HO.LAB 07:35
PROVIDERS: PCP Nurse Practitioner Primary Care; Visit Provider Nurse Practitioner Primary Care
DX: E83.40 Disorders of magnesium metabolism, unspecified (principal)
CPT/HCPCS: 36415; 83735

== ENCOUNTER 2024-06-17 07:39 | Outpatient (REF) | payer MEDICARE, SELFPAY ==
--- OUTSIDE RECORDS SUMMARY | 2024-06-17 07:41 | XMS_ITS | Encounter Summary ---
Author Organization [facility] Address [address] [facility] [address] [place] [address] Phone Care Team Providers Care Ornamenter Name Role Phone Carmita Dietz CRYPTOGRAPHER-C Primary Care Provider + Reason for Visit * Reason Comments Med Refill Encounter Details Date Type Department Care Team (Late st Contact Info) Description 02/27/2023 Refill [facility] [address] [place] [phone] Arsen Villegas MD Social History Tobacco Use [...] on filedocumented in this encounter Care Teams Ornamenter Relationship Specialty Start Date End Date Carmita Dietz NP-C [address], [address] [place] [address] PCP - General Nurse Practitioner 07/18/22 documented as of this encounter
--- OUTSIDE RECORDS SUMMARY | 2024-06-17 07:41 | XMS_ITS | Clinical Summary ---
Author Organization [facility] Address [address] [place] [address] Care Team Providers Care Community Chest Officer Name Role Phone Unavailable Primary Care Provider [...]
--- OUTSIDE RECORDS SUMMARY | 2024-06-17 07:41 | XMS_ITS | Clinical Summary ---
Author Organization [facility] Address [address] [place] [address], [place] [address] Care Team Providers Care Correctional Corporal Name Role Phone Carmita Dietz POLE SHAVER HELPER-C Primary Care Provider + Allergies No known [...] 1 (one) time each day Active Biotin 66385 MCG tablet dispersible Take by mouth Active [...] patient's age to complete this topic [place] [address] [place] [address] [facility] Care Teams Correctional Corporal Relationship Specialty Start Date End Date Carmita Dietz NP-C [address], [address] [place] [address] PCP - General Nurse Practitioner 07/18/22
--- OUTSIDE RECORDS SUMMARY | 2024-06-17 07:42 | XMS_ITS | Continuity of Care Document ---
Author Organization [place] [facility], [facility] Address [address] [place] [address] Care Team Providers Care Rail Grinder Name Role Phone POLLO JACOBO Primary Care Provider Assessment Encounter Date Assessment Date Assessment LastModified by Organization Details LastModified Time 06/12/2024 06/12/2024 78-year-old female, who has been seen in this office in the past for right sphenoid fungal ball and angioedema presents today for for evaluation of her throat. She has noticed some erythema in the throat and some scratchiness which has been better recently. This is in the context of new diagnosis of sleep apnea and uses CPAP as well as esophagitis for which she is on antireflux agents. On exam today I do not see any erythema. Flexible laryngoscopy is unremarkable save for some mild cobblestoning. Reassurance was given. She should continue her current reflux regimen. I recommended consideration of alginate therapy as well. She has noted some crusting in her nasal cavity and we have seen her for this in the past. She has some dry mucosa with mild crusting on the left anterior septum. She has been using saline gel. She previously had improvement with mupirocin so I did send her new prescription. [email or web address] Not available 06/13/2024 08:20:18 Plan of Treatment Reminders Order Date Submit Date Provider Last Modified By Organization Details Last Modified Time Details Appointments None recorded. Lab None recorded. Referral None recorded. Procedures None recorded. Surgeries None recorded. Imaging None recorded. Medication Orders mupirocin 2 % topical ointment [address] [facility] [place]Pharmacy #[id number], [address] [place], [address], 5 11:51:39 Patient TargetsNo targets recorded. Patient InstructionsNo instructions recorded. Reason for Referral None Reported. Problems Name Problem SNOMED Code Status Onset Date Resolution Date Notes Provider Name and Address Organization Details Recorded Time Chronic sphenoid al sinusiti s 27702730 Completed 201712/13/2023 Chronic sphenoid al sinusiti s; Note: Date Diagnose d: 04/28/20 8:26 PM (J32.3) Chroni c sphenoid al sinusiti s; Note: Date Diagnose d: 8 11:01 AM (J32.3) ; Start Date : 02/11/20 Not Available [facility] 4 03:07:58 Follow-u p visit Active 2017 Encounte r for follow-u p examinat ion after complete d treatmen t for conditio ns other than malignan t neoplasm ; Note: Date Diagnose d: 04/21/20 18 2:55 PM (Z09) Not Available [facility] 4 03:08:00 Ulcerati ve rhinitis 98655290 Active 2019 Nasal mucositi s (ulcerat adriana); Note: Date Diagnose d: 0 1:36 PM (J34.81) Not Available [facility] 4 03:08:00 Migraine 73103252 Active 2017 Other migraine , not intracta ble, without status migraino kervin; Note: Date Diagnose d: 8 10:47 AM (G43.809 ) Not Available [facility] 4 03:07:58 Headache 87631061 Active 2019 Facial pain NOS; Note: Date Diagnose d: 02/25/20 1:22 PM (R51) Facial pain NOS; Note: Date Diagnose d: 8 10:47 AM (R51) ; Start Date : 02/11/20 Not Available [facility] 4 03:07:59 Angioede ma 58966558 Active 2023 Angioneu rotic edema, initial encounte r; Note: Date Diagnose d: 4 9:06 AM (T78.3XX A) Not Available [facility] 4 03:08:00 Gastroes ophageal reflux disease 198886071 Active 2024 SANDIE WILLIAM MD [address] [place],[address] [facility], [facility] [place], [address] , [facility] 5 08:18:24 Obstruct adriana sleep apnea syndrome 69189840 Active 2024 SANDIE WILLIAM MD [address], [facility] [place], [address] , [facility] 5 08:18:33 Problem Notes None recorded. Procedures Surgical History Date Name Laterality Status Provider Name and Address Organization Details Recorded Time 06/12/19 Fiberoptic Laryngoscopy (Comprehensive) completed SANDIE WILLIAM MD [address] [facility],[place] [address], [place], [address], [facility] 06/13/2024 08:17:40 Imaging Results None recorded. Procedure Notes None recorded. Medical Equipment None Reported. Allergies No known drug allergies Medications Name Sig Start Date Stop Date Status Note LastModified by Organization Details LastModified Time metformin 500 mg tablet TAKE 1 TABLET BY MOUTH EVERY DAY WITH THE EVENING MEAL active Not Available Not Available No t Available sucralfat e 1 gram tablet TAKE 1 TABLET (1 GRAM) BY ORAL ROUTE 2 TIMES PER DAY ON AN EMPTY STOMACH 06/12 completed Not Available Not Available Not Available prednison e 20 mg tablet TAKE 2 TABLETS BY MOUTH EVERY DAY FOR 4 DAYS THEN REDUCE TO 1 TABLET DAILY FOR 4 DAYS active Not Available Not Available No t Available omeprazol e 40 mg capsule,d elayed release TAKE 1 CAPSULE BY MOUTH EVERY DAY IN THE MORNING FOR 90 DAYS active Not Available Not Available No t Available spironola ctone 25 mg tablet TAKE 1/2 TABLET BY MOUTH EVERY DAY active Not Available Not Available No t Available levothyro xine 75 mcg tablet TAKE 1 TABLET (75 MCG) BY MOUTH EVERY DAY active Not Available Not Available No t Available famotidin e 20 mg tablet TAKE 1 TABLET BY MOUTH EVERY DAY 06/12 completed Not Available Not Available Not Available magnesium oxide 400 mg (241.3 mg magnesium ) tablet TAKE 1 TABLET BY MOUTH TWICE A DAY AFTER MEALS 06/12 completed Not Available Not Available Not Available amlodipin e 10 mg tablet TAKE 1 TABLET BY MOUTH EVERY DAY active Not Available Not Available No t Available pantopraz ole 40 mg tablet,de layed release 06/12 completed Medicati on ID: [id number] D uration Value: 90 Brand Name: pantopra zole Sen d Method: E-Prescr ibed Sub s Allowed: subs OK Speci al Instruct ion: TAKE 1 TABLET BY ORAL ROUTE DAILY Me dication GenericN radha: pantopra zole Not Available Not Available Not Available pravastat in 20 mg tablet 2017 active Medicati on ID: [id number] D uration Value: 90 Brand Name: pravasta tin Send Method: E-Prescr ibed Sub s Allowed: subs OK Medic ationGen ericName : pravasta tin Not Available Not Available Not Available mupirocin 2 % topical ointment 1 a small amount to affected area twice a day 2024 active Not Available Not Available Not Avai lable nystatin 100,000 unit/gram topical powder APPLY TO AFFECTED AREA TWICE A DAY active Not Available Not Available No t Available epinephri ne 0.3 mg/0.3 mL injection , auto-inje ctor USE DIRECTED FOR ANAPHYLA XIS , CALL 911 AFTER USE active Not Available Not Available No t Available cefuroxim e axetil 500 mg tablet 1 tablet by mouth 06/12 completed Medicati on ID: [id number] D uration Value: 7 Prescri bed By Name: Sandie weiss MD Brand Name: cefuroxi me axetil S end Method: E-Prescr ibed Sub s Allowed: subs OK Medic ationGen ericName : cefuroxi me axetil Not Available Not Available Not Available amoxicill in 875 mg-potass ium clavulana te 125 mg tablet 05/09 completed Medicati on ID: [id number] D uration Value: 10 Reason: () Brand Name: amoxicil jonathon-pot clavulan ate Send Method: E-Prescr ibed Sub s Allowed: subs OK Medic ationGen ericName : amoxicil jonathon-pot clavulan ate Not Available Not Available Not Available magnesium 250 mg (as magnesium oxide) tablet TAKE 2 TABLETS BY MOUTH TWICE A DAY active Not Available Not Available No t Available amlodipin e 10 mg-benaze pril 20 mg capsule TAKE ONE CAPSULE DAILY FOR 90 DAYS 06/12 completed Not Available Not Available Not Available Heartburn Relief (famotidi ne) 10 mg tablet TAKE 1 TABLET (10 MG) BY ORAL ROUTE ONCE DAILY NEEDED OTC NOT COVERED 06/12 completed Not Available Not Available Not Available rosuvasta tin 5 mg tablet TAKE 1 TABLET BY MOUTH EVERY DAY active Not Available Not Available No t Available cinacalce t 30 mg tablet TAKE 1 TABLET BY MOUTH DAILY active Not Available Not Available No t Available Advil 04/21 completed Medicati on ID: [id number] R sergio: () Brand Name: advil Se nd Method: E-Prescr ibed Sub s Allowed: subs OK Medic ationGen ericName : advil Not Available Not Available Not Available Tylenol 06/12 completed Medicati on ID: [id number] B rand Name: tylenol Send Method: E-Prescr ibed Sub s Allowed: subs OK Medic ationGen ericName : tylenol Not Available Not Available Not Available amlodipin e 10 mg-benaze pril 40 mg capsule 06/12 completed Medicati on ID: [id number] D uration Value: 90 Brand Name: amlodipi ne-benaz epril Se nd Method: E-Prescr ibed Sub s Allowed: subs OK Speci al Instruct ion: TAKE ONE CAPSULE BY MOUTH DAILY Me dication GenericN radha: amlodipi ne-benaz epril Not Available Not Available Not Available FreeStyle Lite Strips TEST SUGARS DAILY DIRECTED active Not Available Not Available No t Available Vitals Date Recorded Body height Body mass index (BMI) Body weight Provider Name and Address Organization Details Last Updated DateTime 06/12/2024 157.48 cm 36.6 kg/m2 01595.47 g Georgette Lynn [place] - [facility] 06/12/2024 11:32:13 Social History None recorded. Functional Status None recorded. Mental Status None recorded. Family History Nothing Reported. Medical History Condition Response Diabetes Y Hyperlipidemia Y GERD/Reflux Y Hypertension Y Gynecological HistoryNo gynecological history recorded. Obstetrics History GPAL:G 0 P 0 0 0 0 Past Encounters Encounter ID Performer Location Encounter Start Date Encounter Closed Date Diagnosis/Indication Diagnosis SNOMED-CT Code Diagnosis ICD10 Code Diagnosis Note [id number] SANDIE WILLIAM MD [facility] [address] [address] 06/12/2024 11:19:33 06/12/2024 11:55:40 Ulcerative rhinitis 70226699 J34.81 Gastroesop hageal reflux disease 569790055 K21.00 Obstructiv e sleep apnea syndrome 63142912 G47.33 Health Concerns Section Related Observation LastModified by Organization Detai ls LastModified Time None Recorded Concern Status LastModified by Organization Details LastModified Time None Recorded Payers Encounter Date Sequence Insurance Name Policy Number Policy Lara Covered Member ID Lara Member ID Guarantor Name 06/12/2024 1 [facility] (MEDICARE REPLACEMENT/ ADVANTAGE - PPO) [id number] 1 Annetta tSrickland [id number] Annetta Strickland Notes Date Note Type Note Provider Name and Address Organization Details Recorded Time 06/12/2024 text/html 78 yo F presents for evaluation of her throatangioedema last year seen at [facility] [place] new FAINA CPAP, right side of nose gets crusting, uses AYR saline and gel esophagitis and gastritis in September, on omeprazole gets scratchy, this week is a little better SANDIE WILLIAM MD [address] [place] [address], [phone], [facility] - [facility] 06/13/2024 08:20:50 OBGyn Episode No OBEpisode recorded.
--- OUTSIDE RECORDS SUMMARY | 2024-06-17 07:42 | XMS_ITS | Data Portability ---
Author Organization [place] - [facility], Allergy Address [address] [address] Care Team Providers Care Due Diligence Coordinator Name Role Phone JACOBO ABAD Primary Care Provider Assessment Encounter Date Assessment [...] mupirocin 2 % topical ointment 2024 025 [facility]/Pharmacy #[id number], [address] [facility], [place], [address], 5 11:51:39 Patient TargetsNo targets recorded. Patient InstructionsNo instructions recorded. Reason for Referral None Reported. Problems Name Problem SNOMED Code Status Onset Date Resolution Date Notes Provider Name and Address Organization Details Recorded Time Chronic sphenoid al sinusiti s 14938708 Completed 201712/13/2023 Chronic sphenoid al sinusiti s; Note: Date Diagnose d: 04/28/20 8:26 PM (J32.3) Chroni c sphenoid al sinusiti s; Note: Date Diagnose d: 8 11:01 AM (J32.3) ; Start Date : 02/11/20 Not Available [facility] 4 03:07:58 Follow-u p visit Active 2017 Encounte r for follow-u p examinat ion after complete d treatmen t for conditio ns other than malignan t neoplasm ; Note: Date Diagnose d: 04/21/20 2:55 PM (Z09) Not Available [facility] 4 03:08:00 Ulcerati ve rhinitis 48930109 Active 2019 Nasal mucositi s (ulcerat adriana); Note: Date Diagnose d: 0 1:36 PM (J34.81) Not Available [facility] 4 03:08:00 Migraine 50517641 Active 2017 Other migraine , not intracta ble, without status migraino kervin; Note: Date Diagnose d: 8 10:47 AM (G43.809 ) Not Available [facility] 4 03:07:58 Headache 96163228 Active 2019 Facial pain NOS; Note: Date Diagnose d: 02/25/20 1:22 PM (R51) Facial pain NOS; Note: Date Diagnose d: 8 10:47 AM (R51) ; Start Date : 02/11/20 Not Available [facility] 4 03:07:59 Angioede ma 72445382 Active 2023 Angioneu rotic edema, initial encounte r; Note: Date Diagnose d: 4 9:06 AM (T78.3XX A) Not Available [facility] 4 03:08:00 Gastroes ophageal reflux disease 135501208 Active 2024 SANDIE WILLIAM MD [address] [facility] [facility], [place], [address] , [facility] 5 08:18:24 Obstruct adriana sleep apnea syndrome 96528931 Active 2024 SANDIE WILLIAM MD [address] [facility],[place] [address], [place], [address] , [facility] 5 08:18:33 Problem Notes None recorded. Procedures Surgical History Date Name Laterality Status Provider Name and Address Organization Details Recorded Time 06/12/19 Fiberoptic Laryngoscopy (Comprehensive) completed SANDIE WILLIAM MD [address] [facility],[place] [address], [place], [address], [facility] 06/13/2024 08:17:40 Imaging Results None recorded. Procedure [...] layed release 06/12 completed Medicati on ID: [id number] D uration Value: 90 Brand Name: pantopra zole Sen d Method: E-Prescr ibed Sub s Allowed: subs OK Speci al Instruct ion: TAKE 1 TABLET BY ORAL ROUTE DAILY Me dication GenericN radha: pantopra zole Not Available Not Available Not Available pravastat in 20 mg tablet 2017 active Medicati on ID: [id number] D uration Value: 90 Brand Name: pravasta [...] by mouth 06/12 completed Medicati on ID: [id number] D uration Value: 7 Prescri bed By Name: Sandie weiss MD Brand Name: cefuroxi me axetil S end Method: E-Prescr ibed Sub s Allowed: subs OK Medic ationGen ericName : cefuroxi me axetil Not Available Not Available Not Available amoxicill in 875 mg-potass ium clavulana te 125 mg tablet 05/09 completed Medicati on ID: [id number] D uration Value: 10 Reason: () Brand [...] Available Advil 04/21 completed Medicati on ID: [id number] R sergio: () Brand Name: advil Se nd Method: E-Prescr ibed Sub s Allowed: subs OK Medic ationGen ericName : advil Not Available Not Available Not Available Tylenol 06/12 completed Medicati on ID: [id number] B rand Name: tylenol Send Method: E-Prescr ibed Sub s Allowed: subs OK Medic ationGen ericName : tylenol Not Available Not Available Not Available amlodipin e 10 mg-benaze pril 40 mg capsule 06/12 completed Medicati on ID: [id number] D uration Value: 90 Brand Name: amlodipi [...] Updated DateTime 06/12/2024 157.48 cm 36.6 kg/m2 13971.47 g Georgette Lynn [place] - [facility] 06/12/2024 11:32:13 Social History None recorded. Functional Status None recorded. Mental Status None recorded. Family History Nothing Reported. Medical History Condition Response Diabetes Y Hyperlipidemia Y Hypertension Y GERD/Reflux Y Gynecological HistoryNo gynecological history recorded. Obstetrics History GPAL:G 0 P 0 0 0 0 Past Encounters Encounter ID Performer Location Encounter Start Date Encounter Closed Date Diagnosis/Indication Diagnosis SNOMED-CT Code Diagnosis ICD10 Code Diagnosis Note [id number] SANDIE WILLIAM MD [facility] [address] [place] [address] 06/12/2024 11:19:33 06/12/2024 11:55:40 Ulcerative rhinitis 56954739 J34.81 Gastroesop hageal reflux disease 986486715 K21.00 Obstructiv e sleep apnea syndrome 08231391 G47.33 Health Concerns Section Related Observation LastModified by Organization Detai ls LastModified Time None Recorded Concern Status LastModified by Organization Details LastModified Time None Recorded Advance Directives Directive None Recorded Payers Encounter Date Sequence Insurance Name Policy Number Policy Lara Covered Member ID Lara Member ID Guarantor Name 06/12/2024 1 [facility] (MEDICARE REPLACEMENT/ ADVANTAGE - PPO) [id number] 1 Annetta Strickland [id number] Annetta Strickland Notes Date Note Type Note Provider Name and Address Organization Details Recorded Time 06/12/2024 text/html 78 yo F presents for evaluation of her throatangioedema last year seen at [facility] [place] new FAINA CPAP, right side of nose gets crusting, uses AYR saline and gel esophagitis and gastritis in September, on omeprazole gets scratchy, this week is a little better SANDIE WILLIAM MD [address] [place] [address], [place], [address], [facility] - [facility] 06/13/2024 08:20:50 OBGyn Episode No OBEpisode recorded.
--- OUTSIDE RECORDS SUMMARY | 2024-06-17 07:42 | XMS_ITS | Data Portability ---
Author Organization [facility], [facility] Address [address] [place] [address] Care Team Providers Care Coffee [place]ation Worker Name Role Phone JOANNE FITZGEARLD OTHER JAMAAL HAM [employer] JACOBO ABAD Primary Care Provider Assessment Encounter [...] specialists, ER staff. Time spent: 31 (minutes) [email or web address] Not available 04/05/2021 22:05:29 Plan of Treatment Reminders Order Date Submit Date Provider Last Modified By Organization Details Last Modified Time Details Appointments Follow Up, 2024 02:40P M Jamaal Ham MD Not available Not available Not available Lab vitamin D, 25-hydro xy, total, serum 2017 019 [facility], [address], [address], [place] [facility] [place], [address], 06/27/2018 14:55:41 renal function panel, serum 2017 019 dbolognani [facility], [address], [address], [place], [address], 02/02/2019 14:46:53 HbA1c (hemoglo bin A1c), blood 2018 019 [facility], [address], [place], [address], 06/12/2019 15:32:59 CMP, serum or plasma 2018 019 [facility], [address], [place], [address], 06/12/2019 16:09:37 TSH, serum or plasma 2018 019 [facility], [address], [place], [address], 06/12/2019 16:09:40 T4, free, serum 2018 019 [facility], [address], [place], [address], 06/12/2019 16:09:39 vitamin D, 25-hydro xy, total, serum 2019 021 [facility], [address], [place], [address], 02/02/2021 11:16:20 HbA1c (hemoglo bin A1c), blood 2019 020 [facility], [address], [place], [address], 09/02/2020 13:55:20 CMP, serum or plasma 2019 021 [facility], [address], [place], [address], 09/02/2020 11:43:26 CMP, serum or plasma 2020 021 [facility], [address], [place], [address], 02/02/2021 11:26:12 HbA1c (hemoglo bin A1c), blood 2020 021 [facility], [address], [place], [address], 02/02/2021 10:57:24 TSH, serum or plasma 2019 021 [facility], [address], [place], [address], 02/02/2021 11:26:16 T4, free, serum 2019 021 [facility], [address], [place], [address], 02/02/2021 11:26:14 Referral None recorded . Procedures None recorded . Surgeries None recorded . Imaging None recorded . Medication Orders levothyr oxine 75 mcg tablet 2017 018 [email or web address] [facility][id number], [address] [place], [address], 06/16/2024 11:33:34 levothyr oxine 75 mcg tablet 2020 021 [email or web address] [facility][id number], [address] [facility], [place], [address], 06/16/2024 11:33:34 Patient TargetsNo targets recorded. Patient Instructions Encounter Date Encounter Id Patient Instructions Last Modified By Organization Details Last Modified Time 03/27/2019 [id number] - Get labs done beginning in May [...] feet [email or web address] Not available 03/27/2019 11:29:50 04/01/2020 [id number] - Get labs done beginning in May [...] PCP. [email or web address] Not available 04/01/2020 09:43:27 04/05/2021 [id number] - Continue taking thyroid hormone every day [...] Abnormal Flag Note LastModifiedBy Organization Detail LastModifiedTime 03/12/20 18 03/12/2018 T4, free, serum free T4 1.5 NG/dL 0.9-1. 7 Not Available [facility] (Out[facility] [address] [place], [address], 03/12/2018 13:41:14 03/12/20 18 03/12/2018 lfts (hepa tic panel ) alkaline phosphatase 52 U/L 39-117 Not Available [facility] (Outpatient) [address] [place], [address], 03/12/2018 13:41:18 03/12/20 18 03/12/2018 lfts (hepa tic panel ) total bilirubin 0.3 mg/dL 0.0-1. 2 Not Available [facility] (Outpatient) [address] [place], [address], 03/12/2018 13:41:18 03/12/20 18 03/12/2018 lfts (hepa tic panel ) direct bilirubin <0.2 mg/dL 0-0.3 Not Available [facility] (Outpatient) [address] [place], [address], 03/12/2018 13:41:18 03/12/20 18 03/12/2018 lfts (hepa tic panel ) bilirubin (indirect) NOT CALCUL ATED mg/dL 0-1.5 Not Available [facility] (Outpatient) [address] [place], [address], 03/12/2018 13:41:18 03/12/20 18 03/12/2018 lfts (hepa tic panel ) AST 14 U/L 0-37 Not Available [facility] (Outpatient) [address] [place], [address], 03/12/2018 13:41:18 03/12/20 18 03/12/2018 lfts (hepa tic panel ) ALT 9 U/L 0-40 Not Available [facility] (Out[facility]) [address] [place], [address], 03/12/2018 13:41:18 03/12/20 18 03/12/2018 lfts (hepa tic panel ) total protein 7.7 g/dL 6.5-8. 0 Not Available [facility] (Outpatient) [address] [place], [address], 03/12/2018 13:41:18 03/12/20 18 03/12/2018 lfts (hepa tic panel ) albumin 4.4 g/dL 3.9-4. 8 Not Available [facility] (Outpatient) [address] [place], [address], 03/12/2018 13:41:18 03/12/20 18 03/12/2018 lfts (hepa tic panel ) globulin 3.3 g/dL 1-4.8 Not Available [facility] (Out[facility]) [address] [place] [address], [address], 03/12/2018 13:41:18 03/12/20 18 03/12/2018 lfts (hepa tic panel ) A/G ratio 1.33 ratio 1.00-4 .80 Not Available [facility] (Out[facility]) [address] [place] [address], [address], 03/12/2018 13:41:18 03/12/20 18 03/12/2018 TSH, serum or plasm a TSH 0.81 uIU/m L 0.27-4 .20 Not Available [facility] (Out[facility]) [address] [place], [address], 03/12/2018 13:41:19 03/12/20 18 03/12/2018 vitam in D, 25-hy droxy , total , serum 25 oh vit D (total) >60 NG/mL 30-60 high Not Available [facility] (Outpatient) [address] [place], [address], 03/12/2018 15:16:52 06/27/19 19 06/27/2018 vitam in D, 25-hy droxy , total , serum 25OH vitamin D 52.2 NG/mL (20-50 ) high Serum 25OHD : Great er than 50 ng/ml : linette vu ul vitam in D. Refer ence: [facility] Data Brief : No.59 July: Vitam in D Statu s: Unite d State s: 2000- 2005 As of , Vitam in D, 25-Hy droxy assay has been simpson ed. In some [facility], the new assay may yield a highe r value (up to 15% incre ase) in [place] rison to the old assay . These incre ases would mainl y be notic eable at value s of great er than 50 ng/ml . Not Available [facility] [address] [place], [address], 06/27/2018 14:55:41 06/27/19 19 06/27/2018 renal funct ion panel , serum glucose 110 mg/dL (70-99 ) high Not Available [facility] [address] [place], [address], 06/27/2018 22:36:17 06/27/19 19 06/27/2018 renal funct ion panel , serum BUN 23 mg/dL (8-23) Not Available [facility] [address] [place], [address], 06/27/2018 22:36:17 06/27/19 19 06/27/2018 renal funct ion panel , serum creatinine 1.6 mg/dL (0.5-1 .0) high Not Available [facility] [address] [place], [address], 06/27/2018 22:36:17 06/27/19 19 06/27/2018 renal funct ion panel , serum sodium 141 mmol/ L (133-1 45) Not Available [facility] [address] [place], [address], 06/27/2018 22:36:17 06/27/19 19 06/27/2018 renal funct ion panel , serum potassium 4.8 mmol/ L (3.6-5 .2) Not Available [facility] [address] [place], [address], 06/27/2018 22:36:17 06/27/19 19 06/27/2018 renal funct ion panel , serum chloride 104 mmol/ L (98-10 7) Not Available [facility] [address] [place], [address], 06/27/2018 22:36:17 06/27/19 19 06/27/2018 renal funct ion panel , serum bicarbonate 24 mmol/ L (22-29 ) Not Available [facility] [address] [place], [address], 06/27/2018 22:36:17 06/27/19 19 06/27/2018 renal funct ion panel , serum anion gap 13 (4-17) Not Available [facility] [address] [place], [address], 06/27/2018 22:36:17 06/27/19 19 06/27/2018 renal funct ion panel , serum albumin 4.4 gm/dL (3.4-4 .8) Not Available [facility] [address] [place], [address], 06/27/2018 22:36:17 06/27/19 19 06/27/2018 renal funct ion panel , serum calcium 11.1 mg/dL (8.6-1 0.5) high Not Available [facility] [address] [place], [address], 06/27/2018 22:36:17 06/27/19 19 06/27/2018 renal funct ion panel , serum phosphorus 3.0 mg/dL (2.5-4 .5) Not Available [facility] [address] [place], [address], 06/27/2018 22:36:17 06/27/19 19 06/27/2018 renal funct [...] [facility] [address] [place], [address], 06/27/2018 22:36:17 06/27/19 19 06/27/2018 renal funct [...] [facility] [address] [place], [address], 06/27/2018 22:36:17 08/12/19 19 08/11/2018 renal funct ion panel , serum sodium 140 mmol/ L 133-14 6 Not Available [facility] (Out[facility]) [address], [place], [address], 08/11/2018 17:28:23 08/12/19 19 08/11/2018 renal funct ion panel , serum potassium 4.9 mmol/ L 3.3-5. 1 Not Available [facility] (Out[facility]) [address] [place], [address], 08/11/2018 17:28:23 08/12/19 19 08/11/2018 renal funct ion panel , serum chloride 103 mmol/ L 96-108 Not Available [facility] (Out[facility]) [address] [place], [address], 08/11/2018 17:28:23 08/12/19 19 08/11/2018 renal funct ion panel , serum CO2 23 mmol/ L 21-35 Not Available [facility] (Outpatient) [address] [place], [address], 08/11/2018 17:28:23 08/12/19 19 08/11/2018 renal funct ion panel , serum glucose 111 mg/dL 70-99 high Not Available [facility] (Outpatient) [address] [place], [address], 08/11/2018 17:28:23 08/12/19 19 08/11/2018 renal funct ion panel , serum BUN 20 mg/dL 6-19 high Not Available [facility] (Out[facility]) [address] [place], [address], 08/11/2018 17:28:23 08/12/19 19 08/11/2018 renal funct ion panel , serum creatinine 1.30 mg/dL 0.5-1. 5 Not Available [facility] ([facility]) [address] [place], [address], 08/11/2018 17:28:23 08/12/19 19 08/11/2018 renal funct ion panel , serum calcium 10.8 mg/dL 8.4-10 .3 high Not Available [facility] (Out[facility]) [address] [place], [address], 08/11/2018 17:28:23 08/12/19 19 08/11/2018 renal funct ion panel , serum phosphorus 2.7 mg/dL 2.7-4. 5 Not Available [facility] (Outpatient) [address] [place], [address], 08/11/2018 17:28:23 08/12/19 19 08/11/2018 renal funct ion panel , serum albumin 4.5 g/dL 3.9-4. 8 Not Available [facility] (Out[facility]) [address] [place], [address], 08/11/2018 17:28:23 08/12/19 19 08/11/2018 renal funct ion panel , serum eGFR 40 mL/mi n/1.7 3m2 >59 low If patie nt is black , multi ply resul t by 1.159 . Estim ated glome rular filtr ation rate calcu lated using the CKD-E PI equat ion. Not Available [facility] (Outpatient) [address] [place], [address], 08/11/2018 17:28:23 08/12/19 19 08/11/2018 renal funct ion panel , serum anion gap 19 mmol/ L 10-20 Not Available [facility] (Out[facility]) [address] [place], [address], 08/11/2018 17:28:23 03/23/20 19 03/23/2019 vitam in D, 25-hy droxy , total , serum 25OH vitamin D 42.2 NG/mL (20-50 ) Serum 25OHD : 20 to 50 ng/mL : suffi cient in vitam in D. Refer ence: [facility] Data Brief : No.59 July: Vitam in D Statu s: [place]ite d [place] s: 2000- 2005 Not Available [facility] [address] [place], [address], 03/23/2019 18:54:58 03/23/2003/23/2019 renal funct ion panel , serum glucose 84 mg/dL (70-99 ) Not Available [facility] [address] [place], [address], 03/23/2019 19:05:49 03/23/2003/23/2019 renal funct ion panel , serum BUN 24 mg/dL (8-23) high Not Available [facility] [address] [place], [address], 03/23/2019 19:05:49 03/23/2003/23/2019 renal funct ion panel , serum creatinine 1.5 mg/dL (0.5-1 .0) high Not Available [facility] [address] [place], [address], 03/23/2019 19:05:49 03/23/2003/23/2019 renal funct ion panel , serum sodium 141 mmol/ L (133-1 45) Not Available [facility] [address] [place], [address], 03/23/2019 19:05:49 03/23/2003/23/2019 renal funct ion panel , serum potassium 4.9 mmol/ L (3.6-5 .2) Not Available [facility] [address] [place], [address], 03/23/2019 19:05:49 03/23/2003/23/2019 renal funct ion panel , serum chloride 104 mmol/ L (98-10 7) Not Available [facility] [address] [place], [address], 03/23/2019 19:05:49 03/23/2003/23/2019 renal funct ion panel , serum bicarbonate 25 mmol/ L (22-29 ) Not Available [facility] [address] [place], [address], 03/23/2019 19:05:49 03/23/20 19 03/23/2019 renal funct ion panel , serum anion gap 12 (4-17) Not Available [facility] [address] [place], [address], 03/23/2019 19:05:49 03/23/20 19 03/23/2019 renal funct ion panel , serum albumin 4.2 gm/dL (3.4-4 .8) Not Available [facility] [address] [place], [address], 03/23/2019 19:05:49 03/23/20 19 03/23/2019 renal funct ion panel , serum calcium 10.9 mg/dL (8.6-1 0.5) high Not Available [facility] [address] [place], [address], 03/23/2019 19:05:49 03/23/20 19 03/23/2019 renal funct ion panel , serum phosphorus 3.2 mg/dL (2.5-4 .5) Not Available [facility] [address] [place], [address], 03/23/2019 19:05:49 03/23/20 19 03/23/2019 renal funct ion panel , serum est [...] cans. Not Available [facility] [address] [place], [address], 03/23/2019 19:05:49 03/23/20 19 03/23/2019 renal funct ion panel , serum est GFR 39 mL/mi n/1.7 3_M2 Creat inine based estim ated glome milvialar filtr ation rate (eGFR ) is calcu [...] [facility] [address] [place], [address], 03/23/2019 19:05:49 03/23/20 19 03/27/2019 TSH, serum or plasm a TSH 1.05 mIU/m L (0.40- 4.00) Not Available [facility] [address] [place] [place], [address], 03/27/2019 20:19:23 06/12/19 20 06/12/2019 HbA1c (hemo globi n A1c), blood hemoglobin A1C 6.3 % 4.3-5. 8 high Not Available [facility] (Out[facility]) [address] [place] [address], [address], 06/12/2019 15:32:59 06/12/19 20 06/12/2019 lipid panel , blood HDL 38 mg/dL Inter preta tion <40 mg/dL : Low HDL abrahan stero l (jennifer r risk facto r for CHD) Great er than or equal to 60 mg/dL : High HDL abrahan stero l ( neg ative risk facto r for CHD) HDL - abrahan stero l is affec carlito by a numbe r of facto rs, e.g. becki ashford, delfino ayala, hormharjinder lares, sex and age. Not Available [facility] (Out[facility]) [address] [place], [address], 06/12/2019 15:58:07 06/12/19 20 06/12/2019 lipid panel , blood cholesterol 176 mg/dL 0-240 Not Available [facility] (Out[facility]) [address] [place], [address], 06/12/2019 15:58:07 06/12/19 20 06/12/2019 lipid panel , blood triglyceride s 199 mg/dL 30-160 high Not Available [facility] (Outpatient) [address] [place], [address], 06/12/2019 15:58:07 06/12/19 20 06/12/2019 lipid panel , blood LDL 98 mg/dL 50-129 LDL level s in terms of risk for coron amol heart disea se: <100 mg/dL : Optim al 100-1 29 mg/dL : Near or above optim al 130-1 59 mg/dL : Borde rline high 160-1 89 mg/dL : High >190 mg/dL : Very High Not Available [facility] (Out[facility]) [address] [place], [address], 06/12/2019 15:58:07 06/12/19 20 06/12/2019 lipid panel , blood cardiac risk ratio 4.6 3.3-4. 4 high Not Available [facility] ([facility]) [address] [place], [address], 06/12/2019 15:58:07 06/12/19 20 06/12/2019 micro album in/cr eatin ine, mass ratio , urine urine microalbumin <1.2 mg/dL 0-2.3 Not Available [facility] (Outpatient) [address] [place], [address], 06/12/2019 16:00:19 06/12/19 20 06/12/2019 micro album in/cr eatin ine, mass ratio , urine urine creatinine 58 mg/dL Not Available [facility] (Outpatient) [address] [place], [address], 06/12/2019 16:00:19 06/12/19 20 06/12/2019 micro album in/cr eatin ine, mass ratio , urine microalb/cre ratio NOT CALCUL ATED mg/g_ cre 0-20 due to Micro album in <1.2 Not Available [facility] (Outpatient) [address] [place], [address], 06/12/2019 16:00:19 06/12/19 20 06/12/2019 CMP, serum or plasm a sodium 139 mmol/ L 133-14 6 Not Available [facility] (Out[facility]) [address] [place], [address], 06/12/2019 16:09:37 06/12/19 20 06/12/2019 CMP, serum or plasm a potassium 4.8 mmol/ L 3.3-5. 1 Not Available [facility] ([facility]) [address] [place], [address], 06/12/2019 16:09:37 06/12/19 20 06/12/2019 CMP, serum or plasm a chloride 103 mmol/ L 96-108 Not Available [facility] ([facility]) [address] [place], [address], 06/12/2019 16:09:37 06/12/19 20 06/12/2019 CMP, serum or plasm a CO2 23 mmol/ L 21-35 Not Available [facility] ([facility]) [address] [place], [address], 06/12/2019 16:09:37 06/12/19 20 06/12/2019 CMP, serum or plasm a BUN 21 mg/dL 6-19 high Not Available [facility] ([facility]) [address] [place], [address], 06/12/2019 16:09:37 06/12/19 20 06/12/2019 CMP, serum or plasm a creatinine 1.20 mg/dL 0.5-1. 5 Not Available [facility] ([facility]) [address] [place], [address], 06/12/2019 16:09:37 06/12/19 20 06/12/2019 CMP, serum or plasm a glucose 116 mg/dL 70-99 high Not Available [facility] ([facility]) [address] [place], [address], 06/12/2019 16:09:37 06/12/19 20 06/12/2019 CMP, serum or plasm a albumin 4.4 g/dL 3.9-4. 8 Not Available [facility] ([facility]) [address] [place], [address], 06/12/2019 16:09:37 06/12/19 20 06/12/2019 CMP, serum or plasm a total protein 7.7 g/dL 6.5-8. 0 Not Available [facility] ([facility]) [address] [place], [address], 06/12/2019 16:09:37 06/12/19 20 06/12/2019 CMP, serum or plasm a calcium 10.9 mg/dL 8.4-10 .3 high Not Available [facility] ([facility]) [address] [place], [address], 06/12/2019 16:09:37 06/12/19 20 06/12/2019 CMP, serum or plasm a alkaline phosphatase 61 U/L 39-117 Not Available [facility] ([facility]) [address] [place], [address], 06/12/2019 16:09:37 06/12/19 20 06/12/2019 CMP, serum or plasm a total bilirubin 0.2 mg/dL 0.0-1. 2 Not Available [facility] ([facility]) [address] [place], [address], 06/12/2019 16:09:37 06/12/19 20 06/12/2019 CMP, serum or plasm a AST 22 U/L 0-37 Not Available [facility] ([facility]) [address] [place], [address], 06/12/2019 16:09:37 06/12/19 20 06/12/2019 CMP, serum or plasm a ALT 9 U/L 0-40 Not Available [facility] ([facility]) [address] [place], [address], 06/12/2019 16:09:37 06/12/19 20 06/12/2019 CMP, serum or plasm a globulin 3.3 g/dL 1-4.8 Not Available [facility] ([facility]) [address] [place], [address], 06/12/2019 16:09:37 06/12/19 20 06/12/2019 CMP, serum or plasm a eGFR 44 mL/mi n/1.7 3m2 >59 low If patie nt is black , multi ply resul t by 1.159 . Estim ated glome rular filtr ation rate calcu lated using the CKD-E PI equat ion. Not Available [facility] ([facility]) [address] [place], [address], 06/12/2019 16:09:37 06/12/19 20 06/12/2019 CMP, serum or plasm a anion gap 18 mmol/ L 10-20 Not Available [facility] ([facility]) [address] [place], [address], 06/12/2019 16:09:37 06/12/19 20 06/12/2019 T4, free, serum free T4 1.4 NG/dL 0.9-1. 7 Not Available [facility] ([facility]) [address] [place], [address], 06/12/2019 16:09:39 06/12/19 20 06/12/2019 TSH, serum or plasm a TSH 1.12 uIU/m L 0.27-4 .20 Not Available [facility] ([facility]) [address] [place], [address], 06/12/2019 16:09:40 09/10/01/21/2020 HbA1c (hemo globi n A1c), blood hemoglobin A1C 6.1 % 4.3-5. 8 high Not Available [facility] ([facility] [address] [place], [address], 01/21/2020 11:26:48 01/21/2001/21/2020 lipid panel , blood HDL 36 mg/dL Inter preta tion <40 mg/dL : Low HDL abrahan stero l (jennifer r risk facto r for CHD) Great er than or equal to 60 mg/dL : High HDL abrahan stero l ( neg ative risk facto r for CHD) HDL - abrahan stero l is affec carlito by a editae smooth of facto rs, e.g. becki ashford, delfino ayala, philly lares, sex and age. Not Available [facility] (Out[facility]) [address] [place], [address], 01/21/2020 11:36:33 01/21/2001/21/2020 lipid panel , blood cholesterol 163 mg/dL 0-240 Not Available [facility] ([facility]) [address] [place], [address], 01/21/2020 11:36:33 01/21/2001/21/2020 lipid panel , blood triglyceride s 289 mg/dL 30-160 high Not Available [facility] (Outpatient) [address] [place], [address], 01/21/2020 11:36:33 01/21/2001/21/2020 lipid panel , blood LDL 69 mg/dL 50-129 LDL level s in terms of risk for coron amol heart disea se: <100 mg/dL : Optim al 100-1 29 mg/dL : Near or above optim al 130-1 59 mg/dL : Borde rline high 160-1 89 mg/dL : High >190 mg/dL : Very High Not Available [facility] ([facility]) [address] [place], [address], 01/21/2020 11:36:33 01/21/20 20 01/21/2020 lipid panel , blood cardiac risk ratio 4.5 3.3-4. 4 high Not Available [facility] ([facility]) [address] [place], [address], 01/21/2020 11:36:33 01/21/20 20 01/21/2020 vitam in D, 25-hy droxy , total , serum 25 oh vit D (total) 37 NG/mL 30-60 Not Available [facility] ([facility]) [address] [place], [address], 01/21/2020 11:50:58 01/21/2001/21/2020 CMP, serum or plasm a sodium 137 mmol/ L 133-14 6 Not Available [facility] ([facility]) [address] [place], [address], 01/21/2020 11:51:29 01/21/2001/21/2020 CMP, serum or plasm a potassium 5.0 mmol/ L 3.3-5. 1 Not Available [facility] ([facility] [address] [place], [address], 01/21/2020 11:51:29 01/21/2001/21/2020 CMP, serum or plasm a chloride 105 mmol/ L 96-108 Not Available [facility] ([facility]) [address] [place], [address], 01/21/2020 11:51:29 01/21/2001/21/2020 CMP, serum or plasm a CO2 21 mmol/ L 21-35 Not Available [facility] [address], [place], [id number], 01/21/2020 11:51:29 01/21/2001/21/2020 CMP, serum or plasm a BUN 27 mg/dL 6-19 high Not Available [facility] (Outpatient) [address] [place], [address], 01/21/2020 11:51:29 01/21/20 20 01/21/2020 CMP, serum or plasm a creatinine 1.50 mg/dL 0.5-1. 5 Not Available [facility] (Outpatient) [address] [place], [address], 01/21/2020 11:51:29 01/21/20 20 01/21/2020 CMP, serum or plasm a glucose 129 mg/dL 70-99 high Not Available [facility] (Outpatient) [address] [place], [address], 01/21/2020 11:51:29 01/21/20 20 01/21/2020 CMP, serum or plasm a albumin 4.3 g/dL 3.9-4. 8 Not Available [facility] (Outpatient) [address] [place], [address], 01/21/2020 11:51:29 01/21/20 20 01/21/2020 CMP, serum or plasm a total protein 7.3 g/dL 6.5-8. 0 Not Available [facility] (Outpatient) [address] [place], [address], 01/21/2020 11:51:29 01/21/20 20 01/21/2020 CMP, serum or plasm a calcium 11.2 mg/dL 8.4-10 .3 high Not Available [facility] (Outpatient) [address] [place], [address], 01/21/2020 11:51:29 01/21/20 20 01/21/2020 CMP, serum or plasm a alkaline phosphatase 48 U/L 39-117 Not Available [facility] (Outpatient) [address] [place], [address], 01/21/2020 11:51:29 01/21/20 20 01/21/2020 CMP, serum or plasm a total bilirubin 0.3 mg/dL 0.0-1. 2 Not Available [facility] (Outpatient) [address] [place], [address], 01/21/2020 11:51:29 01/21/20 20 01/21/2020 CMP, serum or plasm a AST 15 U/L 0-37 Not Available [facility] (Outpatient) [address] [place], [address], 01/21/2020 11:51:29 01/21/20 20 01/21/2020 CMP, serum or plasm a ALT 6 U/L 0-40 Not Available [facility] (Outpatient) [address] [place], [address], 01/21/2020 11:51:29 01/21/20 20 01/21/2020 CMP, serum or plasm a globulin 3.0 g/dL 1-4.8 Not Available [facility] (Outpatient) [address] [place], [address], 01/21/2020 11:51:29 01/21/20 20 01/21/2020 CMP, serum or plasm a eGFR 33 mL/mi n/1.7 3m2 >59 low Estim ated glome rular filtr ation rate calcu lated using the CKD-E PI equat ion. Not Available [facility] (Outpatient) [address] [place], [address], 01/21/2020 11:51:29 01/21/20 20 01/21/2020 CMP, serum or plasm a anion gap 16 mmol/ L 10-20 Not Available [facility] (Outpatient) [address] [place], [address], 01/21/2020 11:51:29 01/21/2001/21/2020 T4, free, serum free T4 1.1 NG/dL 0.9-1. 7 Not Available [facility] (Outpatient) [address] [place], [address], 01/21/2020 11:51:31 01/21/20 20 01/21/2020 TSH, serum or plasm a TSH 1.88 uIU/m L 0.27-4 .20 Not Available [facility] (Outpatient) [address] [place], [address], 01/21/2020 11:51:33 01/21/20 20 01/21/2020 micro album in/cr eatin ine, mass ratio , urine urine microalbumin <1.2 mg/dL 0-2.3 Not Available [facility] (Outpatient) [address] [place], [address], 01/21/2020 16:09:45 01/21/20 20 01/21/2020 micro album in/cr eatin ine, mass ratio , urine urine creatinine 83 mg/dL Not Available [facility] (Outpatient) [address] [place] [address], [id number], 01/21/2020 16:09:45 01/21/20 20 01/21/2020 micro album in/cr eatin ine, mass ratio , urine microalb/cre ratio NOT CALCUL ATED mg/g_ cre 0-20 due to Micro album in <1.2 Not Available [facility] (Outpatient) [address] [place], [address], 01/21/2020 16:09:45 09/03/19 21 09/02/2020 CMP, serum or plasm a sodium 139 mmol/ L 133-14 6 Not Available [facility] (Outpatient) [address] [place] [address], [address], 09/02/2020 11:43:26 09/03/19 21 09/02/2020 CMP, serum or plasm a potassium 5.3 mmol/ L 3.3-5. 1 high Not Available [facility] (Outpatient) [address] [place] [address], [address], 09/02/2020 11:43:26 09/03/19 21 09/02/2020 CMP, serum or plasm a chloride 106 mmol/ L 96-108 Not Available [facility] (Outpatient) [address] [place], [address], 09/02/2020 11:43:26 09/03/19 21 09/02/2020 CMP, serum or plasm a CO2 23 mmol/ L 21-35 Not Available [facility] (Outpatient) [address] [place], [address], 09/02/2020 11:43:26 09/03/19 21 09/02/2020 CMP, serum or plasm a BUN 26 mg/dL 6-19 high Not Available [facility] (Outpatient) [address] [place], [address], 09/02/2020 11:43:26 09/03/19 21 09/02/2020 CMP, serum or plasm a creatinine 1.40 mg/dL 0.5-1. 5 Not Available [facility] (Outpatient) [address] [place], [address], 09/02/2020 11:43:26 09/03/19 21 09/02/2020 CMP, serum or plasm a glucose 114 mg/dL 70-99 high Not Available [facility] (Outpatient) [address] [place], [address], 09/02/2020 11:43:26 09/03/19 21 09/02/2020 CMP, serum or plasm a albumin 4.3 g/dL 3.9-4. 8 Not Available [facility] (Outpatient) [address] [place], [address], 09/02/2020 11:43:26 09/03/19 21 09/02/2020 CMP, serum or plasm a total protein 7.6 g/dL 6.5-8. 0 Not Available [facility] (Outpatient) [address] [place], [address], 09/02/2020 11:43:09/03/19 21 09/02/2020 CMP, serum or plasm a calcium 10.7 mg/dL 8.4-10 .3 high Not Available [facility] (Outpatient) [address] [place] [address], [address], 09/02/2020 11:43:26 09/03/19 21 09/02/2020 CMP, serum or plasm a alkaline phosphatase 56 U/L 39-117 Not Available [facility] (Outpatient) [address] [place], [address], 09/02/2020 11:43:09/03/19 21 09/02/2020 CMP, serum or plasm a total bilirubin 0.2 mg/dL 0.0-1. 2 Not Available [facility] (Outpatient) [address] [place], [address], 09/02/2020 11:43:26 09/03/19 21 09/02/2020 CMP, serum or plasm a AST 16 U/L 0-37 Not Available [facility] (Outpatient) [address] [place], [address], 09/02/2020 11:43:26 09/03/19 21 09/02/2020 CMP, serum or plasm a ALT 7 U/L 0-40 Not Available [facility] (Outpatient) [address] [place] [address], [address], 09/02/2020 11:43:26 09/03/19 21 09/02/2020 CMP, serum or plasm a globulin 3.3 g/dL 1-4.8 Not Available [facility] (Outpatient) [address] [place] [address], [address], 09/02/2020 11:43:26 09/03/19 21 09/02/2020 CMP, serum or plasm a eGFR 36 mL/mi n/1.7 3m2 >59 low Estim ated glome rular filtr ation rate calcu lated using the CKD-E PI equat ion. Not Available [facility] (Outpatient) [address] [place], [address], 09/02/2020 11:43:26 09/03/19 21 09/02/2020 CMP, serum or plasm a anion gap 15 mmol/ L 10-20 Not Available [facility] (Outpatient) [address] [place], [address], 09/02/2020 11:43:26 09/03/19 21 09/02/2020 lipid panel , blood HDL 38 mg/dL Inter preta tion <40 mg/dL : Low HDL abrahan stero l (jennifer r risk facto r for CHD) Great er than or equal to 60 mg/dL : High HDL abrahan stero l ( neg ative risk facto r for CHD) HDL - abrahan stero l is affec carlito by a numbe r of facto rs, e.g. becki ashford, delfino ayala, hormo arnaud, sex and age. Not Available [facility] (Outpatient) [address] [place], [address], 09/02/2020 12:00:24 09/03/1909/02/2020 lipid panel , blood cholesterol 139 mg/dL 0-240 Not Available [facility] (Outpatient) [address] [place], [address], 09/02/2020 12:00:24 09/03/19 21 09/02/2020 lipid panel , blood triglyceride s 164 mg/dL 30-160 high Not Available [facility] (Outpatient) [address] [place], [address], 09/02/2020 12:00:24 09/03/1909/02/2020 lipid panel , blood LDL 68 mg/dL 50-129 LDL level s in terms of risk for coron amol heart disea se: <100 mg/dL : Optim al 100-1 29 mg/dL : Near or above optim al 130-1 59 mg/dL : Borde rline high 160-1 89 mg/dL : High >190 mg/dL : Very High Not Available [facility] (Outpatient) [address] [place], [address], 09/02/2020 12:00:24 09/03/19 21 09/02/2020 lipid panel , blood cardiac risk ratio 3.7 3.3-4. 4 Not Available [facility] (Outpatient) [address] [place], [address], 09/02/2020 12:00:24 09/03/19 21 09/02/2020 HbA1c (hemo globi n A1c), blood hemoglobin A1C 6.2 % 4.3-5. 8 high Not Available [facility] (Outpatient) [address] [place], [address], 09/02/2020 13:55:19 09/07/19 21 09/06/2020 micro album in/cr eatin ine, mass ratio , urine urine microalbumin <1.2 mg/dL 0-2.3 Not Available [facility] (Outpatient) [address] [place], [address], 09/06/2020 18:43:58 09/07/19 21 09/06/2020 micro album in/cr eatin ine, mass ratio , urine urine creatinine 34 mg/dL Not Available [facility] (Outpatient) [address] [place], [address], 09/06/2020 18:43:58 09/07/19 21 09/06/2020 micro album in/cr eatin ine, mass ratio , urine microalb/cre ratio NOT CALCUL ATED mg/g_ cre 0-20 due to Micro album in <1.2 Not Available [facility] (Outpatient) [address] [place], [address], 09/06/2020 18:43:58 02/03/20 21 02/02/2021 HEMOG LOBIN A1C hemoglobin A1C 6.1 % 4.3-5. 8 high Not Available [facility] (Outpatient) [address] [place], [address], 02/02/2021 10:57:24 02/03/20 21 02/02/2021 LIPID PANEL HDL 36 mg/dL Inter preta tion <40 mg/dL : Low HDL abrahan stero l (jennifer r risk facto r for CHD) Great er than or equal to 60 mg/dL : High HDL abrahan stero l ( neg ative risk facto r for CHD) HDL - abrahan stero l is affec carlito by a numbe r of facto rs, e.g. becki ashford, delfino ayala, philly arnaud, sex and age. Not Available [facility] (Outpatient) [address] [place], [address], 02/02/2021 11:05:04 02/03/20 21 02/02/2021 LIPID PANEL cholesterol 159 mg/dL 0-240 Not Available [facility] (Outpatient) [address] [place], [address], 02/02/2021 11:05:04 02/03/20 21 02/02/2021 LIPID PANEL triglyceride s 247 mg/dL 30-160 high Not Available [facility] (Outpatient) [address] [place], [address], 02/02/2021 11:05:04 02/03/20 21 02/02/2021 LIPID PANEL LDL 74 mg/dL 50-129 LDL level s in terms of risk for coron amol heart disea se: <100 mg/dL : Optim al 100-1 29 mg/dL : Near or above optim al 130-1 59 mg/dL : Borde rline high 160-1 89 mg/dL : High >190 mg/dL : Very High Not Available [facility] (Outpatient) [address] [place], [address], 02/02/2021 11:05:04 02/03/20 21 02/02/2021 LIPID PANEL cardiac risk ratio 4.4 3.3-4. 4 Not Available [facility] (Outpatient) [address] [place], [address], 02/02/2021 11:05:04 02/03/20 21 02/02/2021 25-OH VITAM IN D 25 oh vit D (total) 34 NG/mL 30-60 Not Available [facility] (Outpatient) [address] [place], [address], 02/02/2021 11:16:20 02/03/20 21 02/02/2021 COMPR EHENS FORTINO METAB OLIC PANEL sodium 138 mmol/ L 133-14 6 Not Available [facility] (Outpatient) [address] [place], [address], 02/02/2021 11:26:12 02/03/20 21 02/02/2021 COMPR EHENS FORTINO METAB OLIC PANEL potassium 5.2 mmol/ L 3.3-5. 1 high Not Available [facility] (Outpatient) [address] [place], [address], 02/02/2021 11:26:12 02/03/20 21 02/02/2021 COMPR EHENS FORTINO METAB OLIC PANEL chloride 107 mmol/ L 96-108 Not Available [facility] (Outpatient) [address] [place], [address], 02/02/2021 11:26:12 02/03/20 21 02/02/2021 COMPR EHENS FORTINO METAB OLIC PANEL CO2 21 mmol/ L 21-35 Not Available [facility] (Outpatient) [address] [place], [address], 02/02/2021 11:26:12 02/03/20 21 02/02/2021 COMPR EHENS FORTINO METAB OLIC PANEL BUN 28 mg/dL 6-19 high Not Available [facility] (Outpatient) [address] [place], [address], 02/02/2021 11:26:12 02/03/20 21 02/02/2021 COMPR EHENS FORTINO METAB OLIC PANEL creatinine 1.50 mg/dL 0.5-1. 5 Not Available [facility] (Outpatient) [address] [place], [address], 02/02/2021 11:26:12 02/03/20 21 02/02/2021 COMPR EHENS FORTINO METAB OLIC PANEL glucose 117 mg/dL 70-99 high Not Available [facility] (Outpatient) [address] [place], [address], 02/02/2021 11:26:12 02/03/20 21 02/02/2021 COMPR EHENS FORTINO METAB OLIC PANEL albumin 4.3 g/dL 3.9-4. 8 Not Available [facility] (Outpatient) [address] [place], [address], 02/02/2021 11:26:12 02/03/20 21 02/02/2021 COMPR EHENS FORTINO METAB OLIC PANEL total protein 7.2 g/dL 6.5-8. 0 Not Available [facility] (Outpatient) [address] [place], [address], 02/02/2021 11:26:12 02/03/20 21 02/02/2021 COMPR EHENS FORTINO METAB OLIC PANEL calcium 11.1 mg/dL 8.4-10 .3 high Not Available [facility] (Outpatient) [address] [place], [address], 02/02/2021 11:26:12 02/03/20 21 02/02/2021 COMPR EHENS FORTINO METAB OLIC PANEL alkaline phosphatase 56 U/L 39-117 Not Available [facility] (Outpatient) [address] [place], [address], 02/02/2021 11:26:12 02/03/20 21 02/02/2021 COMPR EHENS FORTINO METAB OLIC PANEL total bilirubin 0.3 mg/dL 0.0-1. 2 Not Available [facility] (Outpatient) [address] [place] [address], [address], 02/02/2021 11:26:12 02/03/20 21 02/02/2021 COMPR EHENS FORTINO METAB OLIC PANEL AST 14 U/L 0-37 Not Available [facility] (Outpatient) [address] [place], [address], 02/02/2021 11:26:12 02/03/20 21 02/02/2021 COMPR EHENS FORTINO METAB OLIC PANEL ALT 8 U/L 0-40 Not Available [facility] (Outpatient) [address] [place] [address], [address], 02/02/2021 11:26:12 02/03/20 21 02/02/2021 COMPR EHENS FORTINO METAB OLIC PANEL globulin 2.9 g/dL 1-4.8 Not Available [facility] (Outpatient) [address] [place] [address], [address], 02/02/2021 11:26:12 02/03/20 21 02/02/2021 COMPR EHENS FORTINO METAB OLIC PANEL eGFR 33 mL/mi n/1.7 3m2 >59 low Estim ated glome rular filtr ation rate calcu lated using the CKD-E PI equat ion. Not Available [facility] (Outpatient) [address] [place], [address], 02/02/2021 11:26:12 02/03/20 21 02/02/2021 COMPR EHENS FORTINO METAB OLIC PANEL anion gap 15 mmol/ L 10-20 Not Available [facility] (Outpatient) [address] [place], [address], 02/02/2021 11:26:12 02/03/20 21 02/02/2021 FREE T4 free T4 1.4 NG/dL 0.9-1. 7 Not Available [facility] (Outpatient) [address] [place], [address], 02/02/2021 11:26:14 02/03/20 21 02/02/2021 TSH TSH 0.91 uIU/m L 0.27-4 .20 Not Available [facility] (Outpatient) [address] [place], [address], 02/02/2021 11:26:15 02/03/20 21 02/02/2021 MICRO ALBUM IN/CR EATIN INE RATIO , RANDO M URINE urine microalbumin <1.2 mg/dL 0-2.3 Not Available [facility] (Outpatient) [address] [place], [address], 02/02/2021 17:50:10 02/03/20 21 02/02/2021 MICRO ALBUM IN/CR EATIN INE RATIO , RANDO M URINE urine creatinine 97 mg/dL Not Available [facility] (Outpatient) [address] [place], [address], 02/02/2021 17:50:10 02/03/20 21 02/02/2021 MICRO ALBUM IN/CR EATIN INE RATIO , RANDO M URINE microalb/cre ratio NOT CALCUL ATED mg/g_ cre 0-20 due to Micro album in <1.2 Not Available [facility] (Outpatient) [address] [place], [address], 02/02/2021 17:50:10 10/14/19 bone densi ty No observ ation record ed. [email or web address] Not Available 2018 14:11:00 03/27/2010/02/2018 MAMMO , scree declan, tomos ynthe sis, bilat eral No observ ation record ed. BARCODE Not Available 2018 15:34:11 03/27/20 19 10/02/2018 bone densi ty No observ ation record ed. BARCODE Not Available 2018 15:34:31 Result Notes None recorded. Problems Name Problem SNOMED Code Status Onset Date Resolution Date Notes Provider Name and Address Organization Details Recorded Time Disorder of thyroid gland 20017756 [facility] 08:[facility]01 Disorder of vitamin D 985955571 Active 2017 Paula Rothman LPN [facility] 8 08:28:14 Hypercalc emia 66930213 [facility] 2017 [facility] 8 08:28:28 Type 2 diabetes mellitus without complicat ion 834160484 Active 2017 Paula Rothman LPN [facility] 8 08:29:28 Chronic kidney disease stage 3 633219679 Active 08/2020 lab results Lynda Randall LPN [facility] 1 10:07:59 Chronic kidney disease due to type 2 diabetes mellitus 035714839147 Active 2020 [facility] 02/02/2021 GFR 33 Milana Kashif [facility] 1 09:47:09 Morbid obesity 864124758 Active 2021 BMI > or = 35 plus diagnosis of diabetes. Brenda Reddy LPN [facility] 2 10:11:12 Problem Notes None recorded. Procedures Surgical History Date Name Laterality Status Provider Name and Address Organization Details Recorded Time 8 Unlisted px accessory sinus completed Alla Emerson [facility] 03/27/2019 10:35:47 Imaging Results Imaging Date Name Status LastModified by Organiz ation Details LastModified Time 10/13/2018 bone density completed [email or web address] Information not available 05/07/2019 14:11:00 10/02/2018 MAMMO, screening, tomosynthesis, bilateral completed BARCODE Information not available 03/27/2019 15:34:11 10/02/2018 bone density completed BARCODE Information not available 03/27/2019 15:34:31 Procedure Notes None recorded. Medical Equipment None Reported. Allergies Allergen ID Allergen Name Allergen Category Reaction Reaction Severity Criticality Documentation Date Start Date Code Code System Note Provider Name and Address Organization Details Recorded Time 656011 Product containin g angiotens in-conver ting enzyme inhibitor (product) medicatio n Not available Not available Not available 06/16/2024 07771 009 SNOMED throa t swell ing Sangeetha Marcial, [employer] [facility] 5 11:32:28 Medications Name Sig Start Date Stop Date Status Note LastModified by Organization Details LastModified Time metformin 500 mg tablet Take 1 tablet every day by oral route. active every night Not Available Not Available Not Available pravastat in 40 mg tablet Take 1 tablet every day by oral route. 06/16 completed Not Available Not Available Not Available spironola ctone 25 mg tablet Take 1 tablet every day by oral route. active taking 1/2 tab daily Not Available Not Available Not Available levothyro xine 25 mcg tablet TAKE [...] -tt Not Available Not Available Not Available amlodipin e 10 mg tablet Take 1 tablet every day by oral route. active Not Available Not Available No t Available levothyro xine 50 mcg tablet TAKE 1 TABLET(S ) EVERY DAY BY ORAL ROUTE FOR 90 DAYS. 09/19 completed dose change Not Available Not Available Not Available pantopraz ole 40 mg tablet,de layed release Take 1 tablet every day by oral route. 06/16 completed Not Available Not Available Not Available omeprazol e 20 mg capsule,d elayed release Take 2 capsules every day by oral route. active Not [...] months Not Available Not Available Not Available rosuvasta tin 5 mg tablet Take 1 tablet every day by oral route. active Not Available Not Available No t Available magnesium Magnesiu m oxzide 250 mg four tabs daily active Not Available Not Available No t Available Vitamin D3 1000iu daily 06/16 completed Not Available Not Available Not Available Metamucil active Not Available Not Johanna ilable Not Available Vitamin D3 10 mcg (400 unit) capsule one daily po active Not Available Not Available No t Available amlodipin e 10 mg-benaze pril 40 mg capsule Take 1 capsule every day by oral route. 06/16 completed pt taking 10mg/20m g Not Available Not Available Not Available Vitamin D3 50 mcg (2,000 unit) tablet Take 1 tablet every day by oral route. 04/01 completed Hold per summer pending labs per Maryuri Not Available Not Available Not Available Aleve 220 mg capsule active 2 a day, AM and PM Not Available Not Available Not Available Vitals Date Recorded Body height Body mass index (BMI) Body weight Heart rate Systolic blood pressure Diastolic blood pressure Provider Name and Address Organization Details Last Updated DateTime 8 156.21 cm 38.3 kg/m2 60245.3 1 g 72 /min 142 mm[Hg] 73 mm[Hg] Mustapha [facility] 8 09:44:24 Date Recorded Body height Body mass index (BMI) Body weight Heart rate Systolic blood pressure Diastolic blood pressure Provider Name and Address Organization Details Last Updated DateTime 9 158.12 cm 38 kg/m2 48275.5 2 g 64 /min 122 mm[Hg] 64 mm[Hg] Alla Emerson [facility] 9 10:38:49 Date Recorded Body weight Body mass index (BMI) Body height Heart rate Systolic blood pressure Diastolic blood pressure Provider Name and Address Organization Details Last Updated DateTime 1 40045.8 1 g 36.8 kg/m2 158.12 cm 86 /min 118 mm[Hg] 72 mm[Hg] Sri Leahy RN [facility] 1 09:57:09 Date Recorded Body weight Body mass index (BMI) Body height Heart rate Systolic blood pressure Diastolic blood pressure Provider Name and Address Organization Details Last Updated DateTime 5 32712.9 1 g 36.7 kg/m2 157.48 cm 92 /min 129 mm[Hg] 68 mm[Hg] Sangeetha Ceja LPN [facility] 5 11:42:20 Social History Question Answer Notes LastModified by Organizat ion Details LastModified Time Tobacco Smoking Status Never Smoker Eleazar Olivera maria r [facility] 12/12/2012 08:23:45 What Is Your Level Of Alcohol Consumption? Occasional Rare [email or web address] Information not available 06/16/2024 Which Illicit Or Recreational Drugs Have You Used? 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 Magalie is about the same. 04/01: Magalie on pump again; Grands are 11 years old. school from home. 2 Grandsons (one same age as girls) school [employer]. 04/02: Lynne?sister are 12 grandsons are 15/16 - has truck in pieces hoping to build Medical History Condition Response Diabetes Type II Y Pacemaker Y Heart Disease Y Hypertension Y Gynecological HistoryNo gynecological history recorded. Obstetrics History GPAL:G 0 P 0 0 0 0 Immunizations Vaccine Type Date Status Note Provider Nam e and Address Organization Details Recorded Time influenza, unspecified formulation 3 completed Jolie Lopez RN null, [facility] 03/05/2013 10:39:33 Influenza, split virus, quadrivalent, preservative 0 completed Gayle Aguila LPN null, [facility] 04/01/2020 08:57:48 COVID-19, mRNA, LNP-S, PF, 30 mcg/0.3 mL dose 1 completed Sri Leahy RN null, [facility] 04/05/2021 09:50:59 COVID-19, mRNA, LNP-S, PF, 30 mcg/0.3 mL dose 1 completed Sri Leahy RN null, [facility] 04/05/2021 09:51:10 Influenza, split virus, quadrivalent, preservative 1 completed Sri Leahy RN null, [facility] 04/05/2021 09:51:28 Past Encounters Encounter ID Performer Location Encounter Start Date Encounter Closed Date Diagnosis/Indication Diagnosis SNOMED-CT Code Diagnosis ICD10 Code Diagnosis Note [id number] Sharron Benito [facility], [address] [address] 12/12/2012 08:00:19 12/12/2012 09:21:36 Hypercalcemia 94768786 Pt with elevated Calcium in 11 in [...] age over 50. Pt to go to [facility] labs [address] [place] [address], givencopy of lab slip at time of visit. BMD 08/15/12 [facility] spine-0.4, hips 01.8 neck -1.3 total, forearm +0.14 Jun 2012 Ca 11 [id number] Nalini Garay LPN Endocr[facility], [address] [address] 01/08/2013 15:42:16 01/08/2013 17:00:59 Disorder of thyroid gland 74692699 TSh 11 and has had TSH of 4.8 in the past. Given symptoms, recommendi ng that she do trial of T4 and will have her take 25 mcg of T4 and repeat labs again in 6-8 weeks. Starting with lower than normal dose since FT4 is 0.97. S/e of hyperthyro idism discussed but do not expect her to have these symtpoms. When repeats labs would like to go to [address] since open Saturday AM and pt lives near there. Disorder of vitamin D 057930526 Vit D 18 and PTH slighlty elevated at 75. Caclium stable at 11.0 to 11.2 with normal/low urinary calcium. Most consistent with [facility]. Will try to slowly replete D and see if PTH corrects and aches resolve. Will have her take 3000 units of Vit D daily and repeat labs when repeats TSH and FT4 in 6 weeks. Hypercalcemia 95739501 s ee above. Will continue to monitor Calcium levels. 24 hour urine studies most consistent ly with [facility]. Explained to pt that people with [facility] have higher set points for calcium. If correction of D and TSH does not alleviate symptoms, and calcium remain elevated then will reevaluate at that time. [id number] Nalini Garay LPN End[facility], [address] [address] 03/05/2013 10:31:44 03/05/2013 11:40:00 Disorder of thyroid gland 40438166 TSH was 11 and is now in [...] repeats labs would like to go to [address] since open Saturday AM and pt lives near there. Disorder of vitamin D 840832303 Vit D is now 26. Ca normal at 10.6, Will have her increase Vit D to 4000 units to get level over 30 and continue this through the winter. Will continue to monitor Ca in renal panel. Labs q 3 months and f/u in 6 months. repeat labs with next TSH in 3 months. Hypercalcemia 18660144 C a normal at 10.6 . see above. Hx=24 hour urine studies most consistent ly with [facility]. If correction of D and TSH does not alleviate symptoms, and calcium remain elevated then will reevaluate at that time. Left bundl e branch block [id number] TSH improved to 4 from 11. Do not think T4 could be reason for extra beat pt is feeling. Pt to have f/u with Dr. Estevez in a few weeks and will discuss with him as well. [id number] End[facility], [address] [address] 09/03/2013 10:31:16 09/03/2013 11:33:21 Disorder of thyroid gland 89000100 Is seeing Dr.Kirchof rojas in a few weeks to have f/u on her LBBB (preexisti ng condition) . Pt had echo in November and told has 20-30% blockage. Pt states on ASA and statin for this. labs would like to go to [address] since open Saturday AM and pt lives near there. Disorder of vitamin D 379332222 Hypercalcemia 56296825 H x=24 hour urine studies most consistent ly with [facility]. If correction of D and TSH does not alleviate symptoms, and calcium remain elevated then will reevaluate at that time. Left nader e branch block [id number] contf/u with Dr. Estevez . [id number] End[facility], [address] [address] 03/04/2014 14:26:06 03/04/2014 15:23:06 Disorder of thyroid gland 93195826 Disorder of vitamin D 846166929 Hypercalcemia 44831761 H x=24 hour urine studies most consistent ly with [facility]. If correction of D and TSH does not alleviate symptoms, and calcium remain elevated then will reevaluate at that time. Left pratima e branch block [id number] contf/u with Dr. Estevez . [id number] Endocr[facility], [address] [address] 09/21/2014 09:20:13 09/21/2014 10:22:15 Disorder of thyroid gland 27330348 TSH was 11 in 2012 and pt started on T4. TSH stable and to goal. Cont on 50 mcg daily of T4. f/u in 12 months labs q 6 months. Call if symptoms in the meantime and can decide about drawing labs sooner than recommende d date. Lab pt prefers is [address] since open Saturday AM and pt lives near there. Disorder of vitamin D 710566404 Vit D replete at 47 and Ca normal at 10.6,cont Vit D to 4000 units. Labs q 6 months and f/u yearly. Hypercalcemia 98579441 C a normal at 10.6 . see above. Hx=24 hour urine studies most consistent ly with [facility]. If correction of D and TSH does not alleviate symptoms, and calcium remain elevated then will reevaluate at that time. Left nader e branch block [id number] Follows with Dr.Kirchof rojas --hx of LBBB (preexisti ng condition) . Pt had echo in November 2013 and told has 20-30% blockage. Pt states on ASA and statin for this. last appt May 2014 when had pacer replaced. F/u with Dr. Estevez . [id number] Maryuri Torres PA-C Endocr[facility], [address] [address] 09/20/2015 09:34:26 09/20/2015 10:19:42 Disorder of thyroid gland 16160394 E07.9 TSH 4 and pt typically in 2's. Will try 75 mcg daily and repeat labs in 8 weeks. Will contact her if dose needs further adjustment after labs. Labs q 4 months after dose stable. f/u in 12 months. Call if symptoms in the meantime and can decide about drawing labs sooner than recommende d date. Lab pt prefers is [address] since open Saturday AM and pt lives near there. Disorder of vitamin D 38 8616385 E56.9 Vit D remaining replete Ca stable at 10.6. Cont Vit D to 4000 units. Labs q 6 months (March and September) and f/u yearly. Hypercalcemia 53445399 E 83.52 PTH normal. Ca normal at 10.6 . Cont to monitor q 6 months (March and September). Hx=24 hour urine studies most consistent ly with [facility]. If correction of D and TSH does not alleviate symptoms, and calcium remain elevated then will reevaluate at that time. [id number] Maryuri Torres PA-C [facility], [address] [address] 09/20/2016 09:44:08 09/20/2016 10:26:42 Disorder of thyroid gland 20269077 E07.21 Jun 2016 labs to goal on 75 mcg of T4 daily. Cont this dose with labs q 6 months. F/u in 12 months. Lab pt prefers is [address] since open Saturday AM and pt lives near there. Disorder of vitamin D 38 5797758 E56.9 see below. Cont Vit D to 4000 units. Hypercalcemia 22535657 E 83.52 PTH had been normal in [...] Type 2 chanel betes mellitus without complication 917459062 E11.9 Managed by PCP and per pt A1c under 7. [id number] Maryuri Torres PA-C Endocr[facility], [address] [address] 06/10/2017 09:27:23 06/10/2017 10:47:39 Disorder of thyroid gland 82302464 E07.21 Mar 2017 labs to goal on 75 mcg of T4 daily. Cont this dose with labs q 6 months. Keep f/u in September. Lab pt prefers is [address] since open Saturday AM and pt lives near there. Disorder of vitamin D 38 0226362 E56.9 see below. Cont Vit D to 4000 units but want to update. 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 If D remaining high will reduce D level. May be able to lower D level. Keep appt in September. Hypercalcemia 10808867 E 83.52 PTH had been normal in setting of normal Ca and Vit D. Never got repeat Mar lab from [facility], looking at results in [facility] Ca [...] Type 2 chanel betes mellitus without complication 997818769 E11.9 Managed by PCP and per pt A1c under 7. [id number] Maryuri Torres PA-C Endocr[facility], [address] [address] 09/19/2017 09:24:45 09/19/2017 10:10:11 Disorder of thyroid gland 18055718 E07.19 August 2017 labs to goal.Cont levothyrox ine 75 mcg daily Labs q 6 months. Keep f/u in 6 months. Lab pt prefers is [address] since open Saturday AM and pt lives near there. Disorder of vitamin D 38 5902698 E56.9 Vit D was in 80's so dropped to 2000 units daily. Current testing remaining in 60's. With summer coming will have her take 1000 units daily and then in FAll (January - July) Take 2000 units in the winter. Hypercalcemia 80410432 E 83.52 PTH rising in setting of [...] Type 2 chanel betes mellitus without complication 115607413 E11.9 Managed by PCP and per pt A1c under 7 on low dose metformin ACR negative as well as of September 2017 testing with PCP. [id number] Maryuri Torres PA-C End[facility], [address] [address] 03/28/2018 09:34:36 03/28/2018 10:29:32 Disorder of thyroid gland 96457345 E07.9 TSH normal Feb TSH 0.81 FT4 1.5 Cont levothyrox ine 75 mcg daily Labs q 6 months. Keep f/u in 6 months. Lab pt prefers is [address] since open Saturday AM and pt lives near there. Disorder of vitamin D 38 3698494 E56.9 03/12/18 Vit D still > 60. She had increased to 2000 units in February but do not have to increase. Will have her take 1000 units daily and check again in May 2018. Hypercalcemia 20233910 E 83.52 PTH remains high in setting [...] Hx=24 hour urine studies most consistent with [facility]. Type 2 chanel betes mellitus without complication 336287901 E11.9 Managed by PCP and per pt A1c under 7 on low dose metformin. Per pt a1c 6.1 at last testing. [id number] Jamaal Ham MD Endocr[facility], [address] [address] 03/27/2019 10:18:13 03/27/2019 11:30:27 Type 2 diabetes mellitus without complication 842071565 E11.9 On metformin 500 mg daily- decreased by PCP Kristine because of increased creatinine .Doing well. With PCP's [facility] , pt. asking for more diabetes care here. Disorder of vitamin D 38 2191194 E55.9 42.2 (03/31); had been low in past but not in past years. Hypercalcemia 11785060 E 83.52 [facility] as evidenccd by low urinary calcium (41 mg/24hr in 10/28) and high serum calcium.Cr eat= 1.5 (lately 1.3-1.6); Ca= 10.9 (was 10.8) ; Phos= 3.2 Hypothyroidism 33148093 E03.9 On 75 mcg levothyrox ine.Doing well clinically . [id number] Jamaal Ham MD Endocr[facility], [address] [address] 04/01/2020 08:45:09 04/01/2020 20:00:33 Type 2 diabetes mellitus without complication 097421214 E11.9 On metformin 500 mg daily- decreased by PCP Kristine because of increased creatinine .Doing well.a1c in 6s. no evidence of complicati ons at present. Disorder of vitamin D 38 1466383 E55.9 37 (01/30); was 42.2 (03/31); had been low in past but not in past years.Take s 1000 units daily. Hypercalcemia 55900387 E 83.52 [facility] as evidenced by low urinary calcium (41 mg/24hr in 10/28) and high serum calcium.Cr eat= 1.5 (lately 1.3-1.6); Ca= 10.9 (was 10.8) ; Phos= 3.2 Hypothyroidism 70136408 E03.9 On 75 mcg levothyrox ine.Doing well clinically . Dyslipidem ia due to type 2 diabetes mellitus 7193003442 E78.5 2020: 163/289/36 /69;With high TG and low HDL.Encour age more activity.I f remains high, would consider either change to atorva, rosuva or possible addition of Vascepa. [id number] Jamaal Ham MD Endocr[facility], [address] [address] 04/05/2021 09:42:53 04/07/2021 06:32:39 Type 2 diabetes mellitus without complication 180674333 E11.9 On metformin 500 mg daily- decreased by PCP (Valarie Abad). Hession/Riddhi reyDoing well.a1c in 6s. no evidence of complicati ons at present. Disorder of vitamin D 38 8181330 E55.9 34 (01/31); was 37 (01/30); was 42.2 (03/31); had been low in past but not in past years.Take s 1000 units daily. Hypercalcemia 81441654 E 83.52 [facility] as evidenced by low urinary calcium (41 mg/24hr in 10/28) and high serum calcium.Cr eat= 1.5 (lately 1.3-1.6); Ca= 10.9 (was 10.8) ; Phos= 3.2 Hypothyroidism 43259687 E03.9 On 75 mcg levothyrox ine.Doing well clinically . Re-order levothyrox ine today with refill x 6 but will ask pt. to have PCP refill future Rx's. Dyslipidem ia due to type 2 diabetes mellitus 5748862113 E78.5 2021: 159-247 (were 164)-36-74 2020: 163/289/36 /69; With high TG and [...] Member ID Lara Member ID Guarantor Name 03/28/2018 1 [place] [employer] Annetta E McElwey [id number] Annetta [place] McElwey 03/28/2018 2 [place] [id number] Annetta [place] McElwey [id number] Annetta [place] McElwey 03/27/2019 1 [place] [employer] Annetta E McElwey [id number] Annetta Chinyere McElwey 03/27/2019 2 [place] [id number] Annetta Chinyere McElwey [id number] Annetta Chinyere McElwey 04/01/2020 1 [place] [employer] Annetta E McElwey [id number] Annetta Chinyere McElwey 04/01/2020 2 [place] [id number] Annetta Chinyere McElwey [id number] Annetta Chinyere McElwey 04/05/2021 1 [place] [place] Annetta E McElwey [id number] Annetta Chinyere McElwey 04/05/2021 2 [place] [id number] Annetta [place] McElwey [id number] Annetta Chinyere McElwey Notes Date Note Type Note Provider Name and Address Organization Details Recorded Time 8 text/html A 72-year-old woman with hypothyroidism [...] systems as below. This is dictated using [employer] voice dictation software. Maryuri Torres PA-C [address] [place] [address], [phone], [facility] 03/31/2018 13:40:03 9 text/html DiabetesReported bypatient.Labs:last Hemoglobin [...] Symptomscoronary artery disease s/p pacemaker; no retinopathy ([place]); no numbness of feet;kidney disease chronic renal [...] diarrhea Neurological:no tremor; no insomnia (occasional);anxiety(occa sional) Kristine is PCP- has been taking care of [...] stones. BMD: [facility] at [facility]. 2018. ROS: No fevers or chills.Had sinus fungal infection in 2018.Can be SOB if rushing and gets anxiousNo muscle aches or pains. No cramping.No dizziness with standing in AM. No bruises or rashes. ` Jamaal Chipkin, MD [address] [place] [address], [phone], [facility] 03/30/2019 15:28:25 0 text/html DiabetesReported bypatient.Labs:last Hemoglobin [...] Hypoglycemia Symptomsfrequency of hypoglycemic episodesinfrequently (metformin only.); [place] funny (Shivering in middle of night- trembling) [...] HAIR: no changesNAILS: No breaking/splitting. PCP- Valarie Abad.[place]- for pacer.Renal- none. Patient agreed to this visit via phone or secure telehealth platform due to the COVID -19 pandemic. Patient understands this is a scheduled visit and the usual procedures with regard to billing and confidentiality apply. [place] was [place] [facility] [place] During the visit the [...] kidney stones.BMD: Done at [facility]. 2018. ROS: No fevers or chills.Had sinus fungal infection in 2018.Can cough or SOB (besides described elsewhere with activity or stress)No muscle pains. No cramping. Gets leg cramps- has tonic water nightly. No dizziness with standing in AM. No bruises, itching or rashes. Jamaal Ham MD [address] [place] [address], [phone], [facility] 04/01/2020 09:48:45 1 text/html DiabetesReported bypatient.Labs:last Hemoglobin [...] artery disease s/p pacemaker; no retinopathy ([facility] no numbness of feet;kidney disease chronic renal [...] (1.4 (01/31); was 1.1 (01/30); was 1.5 (02.27)) Treatment:levoxyl, dose: 75 mcg (takes in AM.); [...] tracings periodically.Will be seeing new CARDS in [facility].But also has had nuclear ETT at [facility]. PCP- Valarie Abad.CARDIAC: Switching to [place] ([employer])- for pacer. T2DM, [...] kidney stones.BMD: Done at [facility]. 2018. ROS:No fevers or chills.Had sinus fungal infection in 2018.Can cough or SOB (besides described elsewhere with activity or stress)No muscle pains. No cramping. Gets leg cramps- has tonic water nightly. No dizziness with standing in AM.No bruises, itching or rashes. Jamaal Ham MD [address] [place] [address], [place], [phone], [facility] 04/05/2021 22:06:34 OBGyn Episode No OBEpisode recorded.
[2024-06-17 08:55] LABS: Anion Gap 12 (12-20); Blood Urea Nitrogen 17 mg/dL (9-16); Calcium 11.2 mg/dL (8.4-10.2); Carbon Dioxide 26 mmol/L (22-29); Chloride 106 mmol/L (96-108); Estimated Glomerular Filt Rate 44; Glucose Random 118 mg/dL (60-115); Magnesium 1.5 mg/dL (1.6-2.6); Potassium 4.3 mmol/L (3.3-5.1); Sodium 140 mmol/L (135-145)
[2024-06-17 09:17] LABS: Parathyroid Hormone Intact 203.9 pg/mL (8.7-77.1)
== END 2024-06-17 07:40 | disposition home or self-care (01) ==
LOC: HO.LAB 07:39
PROVIDERS: PCP Nurse Practitioner Primary Care; Visit Provider Internal Medicine Hypertension Specialist
DX: E21.3 Hyperparathyroidism, unspecified (principal)
CPT/HCPCS: 36415; 80048; 83735; 83970

== ENCOUNTER 2024-06-25 07:52 | Outpatient (REF) | payer MEDICARE, SELFPAY ==
--- OUTSIDE RECORDS SUMMARY | 2024-06-25 07:55 | XMS_ITS ---
Author Organization [facility] Address [address] [place] [address] Care Team Providers Care Gaming Commissioner Name Role Phone Archie Finch MD Primary Care Provider Cash Casanova [phone] ALLERGIES Allergen (clinical drug ingredient) Drug/Non Drug [...] Orally every 6 hrs Active Biotin Maximum 87608 MCG as directed Orally Active Cinacalcet HCl [...] Erosive esophagitis (K22.10) Active confirmed Erosive esophagitis (46392134) Problem Hernia, hiatal (K44.9) Active confirmed Diaphragmatic hernia (63237625) VITAL SIGNS BMI 35.45 kg/m2 03/03/2024 Blood pressure systolic 130 mm Hg 03/03/20 24 Blood pressure diastolic 74 mm Hg 024 Height 62.50 in 03/03/2024 Weight 197 lbs 03/03/2024 Encounters Encounter Location Date Provider Diagnosis [facility] [address] [place] [address] 03/03/2024 Cash Mercado Erosive esophagitis K22.10 and [...]
--- OUTSIDE RECORDS SUMMARY | 2024-06-25 07:55 | XMS_ITS | Clinical Summary ---
Author Organization [facility] ity Address [address] [place] [address] Care Team Providers Care Electrician Substation Supervisor Name Role Phone Unavailable Primary Care Provider Unavailabl e Social History Tobacco Use Types Packs/Day Years Used Date Smoking Tobacco: Never Assessed Comments Unknown Sex and Gender Information Value Date Recorded Sex Assigned at Not on file Legal Sex Female 12:01 AM EST Gender Identity Not on file Sexual Orientation Not on file Plan of Treatment Health Maintenance Due Date Last Done Comments DTaP,Tdap,and Td Vaccines (1 - Tdap) 12/07/1962 Zoster Vaccines (1 of 2) 12/07/1993 Pneumococcal Vaccine: 50+ Ye ars (1 of 1 - PCV) [...]
--- OUTSIDE RECORDS SUMMARY | 2024-06-25 07:55 | XMS_ITS | Encounter Summary ---
Author Organization [facility] Address [address] [facility] [address] [place] [address] Phone Care Team Providers Care Pc Technician Name Role Phone Carmita Dietz SECURITY SYSTEMS ENGINEER-C Primary Care Provider + Reason for Visit * Reason Comments Med Refill Encounter Details Date Type Department Care Team (Late st Contact Info) Description 02/27/2023 Refill [facility] [address] [place] [phone] Arsen Villegas MD Social History Tobacco Use [...] on filedocumented in this encounter Care Teams Pc Technician Relationship Specialty Start Date End Date Carmita Dietz NP-C [address], [address] [place] [address] PCP - General Nurse Practitioner 07/18/22 documented as of this encounter
--- OUTSIDE RECORDS SUMMARY | 2024-06-25 07:56 | XMS_ITS | Clinical Summary ---
Author Organization [facility] Address [address] [place] [address], [place] [address] Care Team Providers Care Instrument Calibrator Name Role Phone Carmita Dietz CRITICAL SYSTEMS TECHNICIAN-C Primary Care Provider + Allergies No known [...] 1 (one) time each day Active Biotin 09499 MCG tablet dispersible Take by mouth Active [...] patient's age to complete this topic Insurance [place] [address] [facility] Care Teams Instrument Calibrator Relationship Specialty Start Date End Date Carmita Dietz NP-C [address], [address] [place] [address] PCP - General Nurse Practitioner 07/18/22
--- OUTSIDE RECORDS SUMMARY | 2024-06-25 07:56 | XMS_ITS | Continuity of Care Document ---
Author Organization [place] - [facility], [facility] Address [address] [place] [address] Care Team Providers Care Reheater Helper Name Role Phone POLLO JACOBO Primary Care [...] mupirocin 2 % topical ointment 2024 025 [facility]/Pharmacy #[id number], [address] [facility] [place], [address], 5 11:51:39 Patient TargetsNo targets recorded. Patient InstructionsNo instructions recorded. Reason for Referral None Reported. Problems Name Problem SNOMED Code Status Onset Date Resolution Date Notes Provider Name and Address Organization Details Recorded Time Chronic sphenoid al sinusiti s 35961073 Completed 201712/13/2023 Chronic sphenoid al sinusiti s; Note: Date Diagnose d: 04/28/20 8:26 PM (J32.3) Chroni c sphenoid al sinusiti s; Note: Date Diagnose d: 8 11:01 AM (J32.3) ; Start Date : 02/11/20 Not Available [facility] 4 03:07:58 Follow-u p visit Active 2017 Encounte r for follow-u p examinat ion after complete d treatmen t for conditio ns other than malignan t neoplasm ; Note: Date Diagnose d: 04/21/20 18 2:55 PM (Z09) Not Available [facility] 4 03:08:00 Ulcerati ve rhinitis 23742271 Active 2019 Nasal mucositi s (ulcerat adriana); Note: Date Diagnose d: 0 1:36 PM (J34.81) Not Available [facility] 4 03:08:00 Migraine 99239897 Active 2017 Other migraine , not intracta ble, without status migraino kervin; Note: Date Diagnose d: 8 10:47 AM (G43.809 ) Not Available [facility] 4 03:07:58 Headache 76937830 Active 2019 Facial pain NOS; Note: Date Diagnose d: 02/25/20 1:22 PM (R51) Facial pain NOS; Note: Date Diagnose d: 8 10:47 AM (R51) ; Start Date : 02/11/20 Not Available [facility] 4 03:07:59 Angioede ma 87754793 Active 2023 Angioneu rotic edema, initial encounte r; Note: Date Diagnose d: 4 9:06 AM (T78.3XX A) Not Available [facility] 4 03:08:00 Gastroes ophageal reflux disease 385632722 Active 2024 SANDIE WILLIAM MD [address] [place] [facility], [facility] [place], [address] , [facility] 5 08:18:24 Obstruct adriana sleep apnea syndrome 25276464 Active 2024 SANDIE WILLIAM MD [address], [facility] [place], [address] , [facility] 5 08:18:33 Problem Notes None recorded. Procedures Surgical History Date Name Laterality Status Provider Name and Address Organization Details Recorded Time 06/12/19 Fiberoptic Laryngoscopy (Comprehensive) completed SANDIE WILLIAM MD [address] [facility],[place] [address], [place], [address], [facility] 06/13/2024 08:17:40 Imaging Results None recorded. [...] layed release 06/12 completed Medicati on ID: [id number] D uration Value: 90 Brand Name: pantopra zole Sen d Method: E-Prescr ibed Sub s Allowed: subs OK Speci al Instruct ion: TAKE 1 TABLET BY ORAL ROUTE DAILY Me dication GenericN radha: pantopra zole Not Available Not Available Not Available pravastat in 20 mg tablet 2017 active Medicati on ID: [id number] D uration Value: 90 Brand Name: pravasta tin Send Method: E-Prescr ibed Sub s Allowed: subs OK Medic ationGen ericName : pravasta tin Not Available Not Available Not Available mupirocin 2 % topical ointment APPLY A SMALL AMOUNT TO AFFECTED AREA TWICE A DAY active Not Available Not Available No t Available nystatin 100,000 unit/gram topical powder APPLY TO AFFECTED AREA TWICE A DAY active Not Available Not Available No t Available epinephri ne 0.3 mg/0.3 mL injection , auto-inje ctor USE DIRECTED FOR ANAPHYLA XIS , CALL 911 AFTER USE active Not Available Not Available No t Available cefuroxim e axetil 500 mg tablet 1 tablet by mouth 06/12 completed Medicati on ID: [id number] D uration Value: 7 Prescri bed By Name: Sandie weiss MD Brand Name: cefuroxi me axetil S end Method: E-Prescr ibed Sub s Allowed: subs OK Medic ationGen ericName : cefuroxi me axetil Not Available Not Available Not Available amoxicill in 875 mg-potass ium clavulana te 125 mg tablet 05/09 completed Medicati on ID: [id number] D uration Value: 10 Reason: () Brand [...] Available Advil 04/21 completed Medicati on ID: [id number] R sergio: () Brand Name: advil Se nd Method: E-Prescr ibed Sub s Allowed: subs OK Medic ationGen ericName : advil Not Available Not Available Not Available Tylenol 06/12 completed Medicati on ID: [id number] B rand Name: tylenol Send Method: E-Prescr ibed Sub s Allowed: subs OK Medic ationGen ericName : tylenol Not Available Not Available Not Available amlodipin e 10 mg-benaze pril 40 mg capsule 06/12 completed Medicati on ID: [id number] D uration Value: 90 Brand Name: amlodipi [...] Updated DateTime 06/12/2024 157.48 cm 36.6 kg/m2 67177.47 g Georgette Lynn [place] - [facility] 06/12/2024 11:32:13 Social History None recorded. [...] SNOMED-CT Code Diagnosis ICD10 Code Diagnosis Note [id number] SANDIE WILLIAM MD [facility] [address] [place] [address] 06/12/2024 11:19:33 06/12/2024 11:55:40 Ulcerative rhinitis 99865292 J34.81 Gastroesop hageal reflux disease 287148891 K21.00 Obstructiv e sleep apnea syndrome 76393043 G47.33 Health Concerns Section Related Observation LastModified by Organization Detai ls LastModified Time None Recorded Concern Status LastModified by Organization Details LastModified Time None Recorded Payers Encounter Date Sequence Insurance Name Policy Number Policy Lara Covered Member ID Lara Member ID Guarantor Name 06/12/2024 1 [facility] (MEDICARE REPLACEMENT/ ADVANTAGE - PPO) [id number] 1 Annetta Strickland [id number] Annetta Strickland Notes Date Note Type Note Provider Name and Address Organization Details Recorded Time 06/12/2024 text/html 78 yo F presents for evaluation of her throatangioedema last year seen at [facility] dark red streaks new FAINA CPAP, right side of nose gets crusting, uses AYR saline and gel esophagitis and gastritis in September, on omeprazole gets scratchy, this week is a little better SANDIE WILLIAM MD [address] [place] [address], [address], [place] - [facility] 06/13/2024 08:20:50 OBGyn Episode No OBEpisode recorded.
--- OUTSIDE RECORDS SUMMARY | 2024-06-25 07:56 | XMS_ITS | Data Portability ---
Author Organization [place] - [facility], Allergy Address [address] [address] Care Team Providers Care Vehicle Delivery Worker Name Role Phone JACOBO ABAD Primary Care [...] mupirocin 2 % topical ointment 2024 025 [facility]/Pharmacy #[id number], [address] [facility], [place], [address], 5 11:51:39 Patient TargetsNo targets recorded. Patient InstructionsNo instructions recorded. Reason for Referral None Reported. Problems Name Problem SNOMED Code Status Onset Date Resolution Date Notes Provider Name and Address Organization Details Recorded Time Chronic sphenoid al sinusiti s [id number] Completed 201712/13/2023 Chronic sphenoid al sinusiti s; Note: Date Diagnose d: 04/28/20 8:26 PM (J32.3) Chroni c sphenoid al sinusiti s; Note: Date Diagnose d: 8 11:01 AM (J32.3) ; Start Date : 02/11/20 Not Available [facility] 4 03:07:58 Follow-u p visit Active 2017 Encounte r for follow-u p examinat ion after complete d treatmen t for conditio ns other than malignan t neoplasm ; Note: Date Diagnose d: 04/21/20 2:55 PM (Z09) Not Available [facility] 4 03:08:00 Ulcerati ve rhinitis 26367227 Active 2019 Nasal mucositi s (ulcerat adriana); Note: Date Diagnose d: 0 1:36 PM (J34.81) Not Available [facility] 4 03:08:00 Migraine 45465772 Active 2017 Other migraine , not intracta ble, without status migraino kervin; Note: Date Diagnose d: 8 10:47 AM (G43.809 ) Not Available [facility] 4 03:07:58 Headache 43709826 Active 2019 Facial pain NOS; Note: Date Diagnose d: 02/25/20 1:22 PM (R51) Facial pain NOS; Note: Date Diagnose d: 8 10:47 AM (R51) ; Start Date : 02/11/20 Not Available [facility] 4 03:07:59 Angioede ma 58154457 Active 2023 Angioneu rotic edema, initial encounte r; Note: Date Diagnose d: 4 9:06 AM (T78.3XX A) Not Available [facility] 4 03:08:00 Gastroes ophageal reflux disease 582528625 Active 2024 SANDIE WILLIAM MD [address] [facility],[place] [facility], [place], [address] , [facility] 5 08:18:24 Obstruct adriana sleep apnea syndrome 36639189 Active 2024 SANDIE WILLIAM MD [address] [facility],[place] [address], [place], [address] , [facility] 5 08:18:33 Problem Notes None recorded. Procedures Surgical History Date Name Laterality Status Provider Name and Address Organization Details Recorded Time 06/12/19 Fiberoptic Laryngoscopy (Comprehensive) completed SANDIE WILLIAM MD [address] [facility],[place] [address], [place], [address], [facility] 06/13/2024 08:17:40 Imaging Results None [...] layed release 06/12 completed Medicati on ID: [id number] D uration Value: 90 Brand Name: pantopra zole Sen d Method: E-Prescr ibed Sub s Allowed: subs OK Speci al Instruct ion: TAKE 1 TABLET BY ORAL ROUTE DAILY Me dication GenericN radha: pantopra zole Not Available Not Available Not Available pravastat in 20 mg tablet 2017 active Medicati on ID: [id number] D uration Value: 90 Brand Name: pravasta [...] by mouth 06/12 completed Medicati on ID: [id number] D uration Value: 7 Prescri bed By Name: Sandie weiss MD Brand Name: cefuroxi me axetil S end Method: E-Prescr ibed Sub s Allowed: subs OK Medic ationGen ericName : cefuroxi me axetil Not Available Not Available Not Available amoxicill in 875 mg-potass ium clavulana te 125 mg tablet 05/09 completed Medicati on ID: [id number] D uration Value: 10 Reason: () Brand [...] Available Advil 04/21 completed Medicati on ID: [id number] R sergio: () Brand Name: advil Se nd Method: E-Prescr ibed Sub s Allowed: subs OK Medic ationGen ericName : advil Not Available Not Available Not Available Tylenol 06/12 completed Medicati on ID: [id number] B rand Name: tylenol Send Method: E-Prescr ibed Sub s Allowed: subs OK Medic ationGen ericName : tylenol Not Available Not Available Not Available amlodipin e 10 mg-benaze pril 40 mg capsule 06/12 completed Medicati on ID: [id number] D uration Value: 90 Brand Name: amlodipi [...] Updated DateTime 06/12/2024 157.48 cm 36.6 kg/m2 90431.47 g Georgette Lynn [place] - [facility] 06/12/2024 11:32:13 Social History None [...] SNOMED-CT Code Diagnosis ICD10 Code Diagnosis Note [id number] SANDIE WILLIAM MD [facility] [address] [place] [address] 06/12/2024 11:19:33 06/12/2024 11:55:40 Ulcerative rhinitis [id number] J34.81 Gastroesop hageal reflux disease 878902811 K21.00 Obstructiv e sleep apnea syndrome 14367069 G47.33 Health Concerns Section Related Observation LastModified by Organization Detai ls LastModified Time None Recorded Concern Status LastModified by Organization Details LastModified Time None Recorded Advance Directives Directive None Recorded Payers Encounter Date Sequence Insurance Name Policy Number Policy Lara Covered Member ID Lara Member ID Guarantor Name 06/12/2024 1 [facility] (MEDICARE REPLACEMENT/ ADVANTAGE - PPO) [id number] 1 Annetta Strickland [id number] Annetta Strickland Notes Date Note Type Note Provider Name and Address Organization Details Recorded Time 06/12/2024 text/html 78 yo F presents for evaluation of her throatangioedema last year seen at [facility] dark red stre[place] new FAINA CPAP, right side of nose gets crusting, uses AYR saline and gel esophagitis and gastritis in September, on omeprazole gets scratchy, this week is a little better SANDIE WILLIAM MD [address] [place] [address], [address], [place] - [facility] 06/13/2024 08:20:50 OBGyn Episode No OBEpisode recorded.
--- OUTSIDE RECORDS SUMMARY | 2024-06-25 07:56 | XMS_ITS | Data Portability ---
Author Organization [facility], [facility] Address [address] [place] [address] Care Team Providers Care Bath Mixer Name Role Phone JOANNE FITZGERALD OTHER JAMAAL HAM Lockstitch Hemmer JACOBO ABAD Primary Care Provider Assessment Encounter [...] Lab vitamin D, 25-hydro xy, total, serum 2019 021 [facility], [address], [place], [address], 02/02/2021 11:16:20 HbA1c (hemoglo bin A1c), blood 2019 020 [facility], [address], [place], [address], 09/02/2020 13:55:20 CMP, serum or plasma 2019 021 [facility], [address], [place], [address], 09/02/2020 11:43:26 CMP, serum or plasma 2020 021 [facility], [address], [place], [address], 02/02/2021 11:26:12 HbA1c (hemoglo bin A1c), blood 2020 021 [facility], [address], [place], [address], 02/02/2021 10:57:24 TSH, serum or plasma 2019 021 [facility], [address], [place], [address], 02/02/2021 11:26:16 T4, free, serum 2019 021 [facility], [address], [place], [address], 02/02/2021 11:26:14 HbA1c (hemoglo bin A1c), blood 2018 019 [facility], [address], [place], [address], 06/12/2019 15:32:59 CMP, serum or plasma 2018 019 [facility], [address], [place], [address], 06/12/2019 16:09:37 TSH, serum or plasma 2018 019 [facility], [address], [place], [address], 06/12/2019 16:09:40 T4, free, serum 2018 019 [facility], [address], [place], [address], 06/12/2019 16:09:39 vitamin D, 25-hydro xy, total, serum 2017 019 [facility], [address], [address], 06/27/2018 14:55:41 renal function panel, serum 2017 019 [email or web address], [address], [address], 02/02/2019 14:46:53 Referral None recorded . Procedures None recorded . Surgeries None recorded . Imaging None recorded . Medication Orders levothyr oxine 75 mcg tablet 2020 021 [id number], [address] [place], [address], 06/16/2024 11:33:34 levothyr oxine 75 mcg tablet 2017 018 [id number], [address] [facility], [place], [address], 06/16/2024 11:33:34 Patient TargetsNo targets recorded. Patient Instructions Encounter Date Encounter Id Patient Instructions Last Modified By Organization Details Last Modified Time 03/27/2019 [id number] - Get labs done beginning in May [...] feet [email or web address] Not available 03/27/2019 11:29:50 04/01/2020 [id number] - Get labs done beginning in May [...] PCP. [email or web address] Not available 04/01/2020 09:43:27 04/05/2021 [id number] - Continue taking thyroid hormone every day [...] T4 1.5 NG/dL 0.9-1. 7 Not Available [facility] ([facility] [address] [place], [address], 03/12/2018 13:41:14 03/12/20 18 03/12/2018 lfts (hepa tic panel ) alkaline phosphatase 52 U/L 39-117 Not Available [facility] (Out[facility]) [address] [place], [address], 03/12/2018 13:41:18 03/12/20 18 03/12/2018 [facility] (hepa tic panel ) total bilirubin 0.3 mg/dL 0.0-1. 2 Not Available [facility] [address] [place], [address], 03/12/2018 13:41:18 03/12/20 18 03/12/2018 [facility] (hepa tic panel ) direct bilirubin <0.2 mg/dL 0-0.3 Not Available [facility] ([facility] [address] [place], [address], 03/12/2018 13:41:18 03/12/20 18 03/12/2018 [facility] (hepa tic panel ) bilirubin (indirect) NOT CALCUL ATED mg/dL 0-1.5 Not Available [facility] ([facility] [address] [place], [address], 03/12/2018 13:41:18 03/12/20 18 03/12/2018 [facility] (hepa tic panel ) AST 14 U/L 0-37 Not Available [facility] [address] [place], [address], 03/12/2018 13:41:18 03/12/20 18 03/12/2018 [facility] (hepa tic panel ) ALT 9 U/L 0-40 Not Available [facility] [address] [place], [address], 03/12/2018 13:41:18 03/12/20 18 03/12/2018 [facility] (hepa tic panel ) total protein 7.7 g/dL 6.5-8. 0 Not Available [facility] [address] [place], [address], 03/12/2018 13:41:18 03/12/20 18 03/12/2018 [facility]fts (hepa tic panel ) albumin 4.4 g/dL 3.9-4. 8 Not Available [facility] [address] [place], [address], 03/12/2018 13:41:18 03/12/20 18 03/12/2018 [facility] (hepa tic panel ) globulin 3.3 g/dL 1-4.8 Not Available [facility] [address] [place] [address], [address], 03/12/2018 13:41:18 03/12/20 18 03/12/2018 lfts (hepa tic panel ) A/G ratio 1.33 ratio 1.00-4 .80 Not Available [facility] [address] [place] [address], [address], 03/12/2018 13:41:18 03/12/20 18 03/12/2018 TSH, serum or plasm a TSH 0.81 uIU/m L 0.27-4 .20 Not Available [facility] [address] [place], [address], 03/12/2018 13:41:19 03/12/20 18 03/12/2018 vitam in D, 25-hy droxy , total , serum 25 oh vit D (total) >60 NG/mL 30-60 high Not Available [facility] [address] [place], [address], 03/12/2018 15:16:52 06/27/19 19 06/27/2018 vitam in D, 25-hy droxy , total , serum 25OH vitamin D 52.2 NG/mL (20-50 ) high Serum 25OHD : Great er than 50 ng/ml : linette vu ul vitam in D. Refer ence: [facility] Data Brief : No.59 July: Vitam in [...] Available [facility] [address] [place], [address], 06/27/2018 14:55:41 06/27/19 19 06/27/2018 renal funct ion panel , serum glucose 110 mg/dL (70-99 ) high Not Available [facility] [address] [place], [address], 06/27/2018 22:36:17 06/27/19 19 06/27/2018 renal funct ion panel , serum BUN 23 mg/dL (8-23) Not Available [facility] [address] [place], [address], 06/27/2018 22:36:17 06/27/19 19 06/27/2018 renal funct ion panel , serum creatinine 1.6 mg/dL (0.5-1 .0) high Not Available [facility] [address] [place], [address], 06/27/2018 22:36:17 06/27/19 19 06/27/2018 renal funct ion panel , serum sodium 141 mmol/ L (133-1 45) Not Available [facility] [address] [place], [address], 06/27/2018 22:36:17 06/27/19 19 06/27/2018 renal funct ion panel , serum potassium 4.8 mmol/ L (3.6-5 .2) Not Available [facility] [address] [place], [address], 06/27/2018 22:36:17 06/27/19 19 06/27/2018 renal funct ion panel , serum chloride 104 mmol/ L (98-10 7) Not Available [facility] [address] [place], [address], 06/27/2018 22:36:17 06/27/19 19 06/27/2018 renal funct ion panel , serum bicarbonate 24 mmol/ L (22-29 ) Not Available [facility] [address] [place], [address], 06/27/2018 22:36:17 06/27/19 19 06/27/2018 renal funct ion panel , serum anion gap 13 (4-17) Not Available [facility] [address] [place], [address], 06/27/2018 22:36:17 06/27/19 19 06/27/2018 renal funct ion panel , serum albumin 4.4 gm/dL (3.4-4 .8) Not Available [facility] [address] [place], [address], 06/27/2018 22:36:17 06/27/19 19 06/27/2018 renal funct ion panel , serum calcium 11.1 mg/dL (8.6-1 0.5) high Not Available [facility] [address] [place], [address], 06/27/2018 22:36:17 06/27/19 19 06/27/2018 renal funct ion panel , serum phosphorus 3.0 mg/dL (2.5-4 .5) Not Available [facility] [address] [place], [address], 06/27/2018 22:36:17 06/27/19 19 06/27/2018 renal funct [...] [facility] [address] [place], [address], 06/27/2018 22:36:17 06/27/19 19 06/27/2018 renal funct [...] [facility] [address] [place], [address], 06/27/2018 22:36:17 08/12/19 19 08/11/2018 renal funct ion panel , serum sodium 140 mmol/ L 133-14 6 Not Available [facility] [address], [place], [address], 08/11/2018 17:28:23 08/12/19 19 08/11/2018 renal funct ion panel , serum potassium 4.9 mmol/ L 3.3-5. 1 Not Available [facility] [address] [place], [address], 08/11/2018 17:28:23 08/12/19 19 08/11/2018 renal funct ion panel , serum chloride 103 mmol/ L 96-108 Not Available [facility] [address] [place], [address], 08/11/2018 17:28:23 08/12/19 19 08/11/2018 renal funct ion panel , serum CO2 23 mmol/ L 21-35 Not Available [facility] [address] [place], [address], 08/11/2018 17:28:23 08/12/19 19 08/11/2018 renal funct ion panel , serum glucose 111 mg/dL 70-99 high Not Available [facility] [address] [place], [address], 08/11/2018 17:28:23 08/12/19 19 08/11/2018 renal funct ion panel , serum BUN 20 mg/dL 6-19 high Not Available [facility] [address] [place], [address], 08/11/2018 17:28:23 08/12/19 19 08/11/2018 renal funct ion panel , serum creatinine 1.30 mg/dL 0.5-1. 5 Not Available [facility] [address] [place], [address], 08/11/2018 17:28:23 08/12/19 19 08/11/2018 renal funct ion panel , serum calcium 10.8 mg/dL 8.4-10 .3 high Not Available [facility] [address] [place], [address], 08/11/2018 17:28:23 08/12/19 19 08/11/2018 renal funct ion panel , serum phosphorus 2.7 mg/dL 2.7-4. 5 Not Available [facility] [address] [place], [address], 08/11/2018 17:28:23 08/12/19 19 08/11/2018 renal funct ion panel , serum albumin 4.5 g/dL 3.9-4. 8 Not Available [facility] [address] [place], [address], 08/11/2018 17:28:23 08/12/19 19 08/11/2018 renal funct ion panel , serum eGFR 40 mL/mi n/1.7 3m2 >59 low If patie nt is black , multi ply resul t by 1.159 . Estim ated glome rular filtr ation rate calcu lated using the CKD-E PI equat ion. Not Available [facility] [address] [place], [address], 08/11/2018 17:28:23 08/12/19 19 08/11/2018 renal funct ion panel , serum anion gap 19 mmol/ L 10-20 Not Available [facility] [address] [place], [address], 08/11/2018 17:28:23 03/23/20 19 03/23/2019 vitam in D, 25-hy droxy , total , serum 25OH vitamin D 42.2 NG/mL (20-50 ) Serum 25OHD : 20 to 50 ng/mL : suffi cient in vitam in D. Refer ence: [facility] Data Brief : No.59 July: Vitam in D Statu s: [place]: 2000- 2005 Not Available [facility] [address] [place], [address], 03/23/2019 18:54:58 03/23/2003/23/2019 renal funct ion panel , serum glucose 84 mg/dL (70-99 ) Not Available [facility] [address] [place], [address], 03/23/2019 19:05:49 03/23/2003/23/2019 renal funct ion panel , serum BUN 24 mg/dL (8-23) high Not Available [facility] [address] [place], [address], 03/23/2019 19:05:49 03/23/2003/23/2019 renal funct ion panel , serum creatinine 1.5 mg/dL (0.5-1 .0) high Not Available [facility] [address] [place], [address], 03/23/2019 19:05:49 03/23/2003/23/2019 renal funct ion panel , serum sodium 141 mmol/ L (133-1 45) Not Available [facility] [address] [place], [address], 03/23/2019 19:05:49 03/23/2003/23/2019 renal funct ion panel , serum potassium 4.9 mmol/ L (3.6-5 .2) Not Available [facility] [address] [place], [address], 03/23/2019 19:05:49 03/23/2003/23/2019 renal funct ion panel , serum chloride 104 mmol/ L (98-10 7) Not Available [facility] [address] [place], [address], 03/23/2019 19:05:49 03/23/2003/23/2019 renal funct ion panel , serum bicarbonate 25 mmol/ L (22-29 ) Not Available [facility] [address] [place], [address], 03/23/2019 19:05:49 03/23/20 19 03/23/2019 renal funct ion panel , serum anion gap 12 (4-17) Not Available [facility] [address] [place], [address], 03/23/2019 19:05:49 03/23/20 19 03/23/2019 renal funct ion panel , serum albumin 4.2 gm/dL (3.4-4 .8) Not Available [facility] [address] [place], [address], 03/23/2019 19:05:49 03/23/20 19 03/23/2019 renal funct ion panel , serum calcium 10.9 mg/dL (8.6-1 0.5) high Not Available [facility] [address] [place], [address], 03/23/2019 19:05:49 03/23/20 19 03/23/2019 renal funct ion panel , serum phosphorus 3.2 mg/dL (2.5-4 .5) Not Available [facility] [address] [place], [address], 03/23/2019 19:05:49 03/23/20 19 03/23/2019 renal funct [...] [facility] [address] [place], [address], 03/23/2019 19:05:49 03/23/20 19 03/23/2019 renal funct [...] [facility] [address] [place], [address], 03/23/2019 19:05:49 03/23/20 19 03/27/2019 TSH, serum or plasm a TSH 1.05 mIU/m L (0.40- 4.00) Not Available [facility] [address] [place], [address], 03/27/2019 20:19:23 06/12/19 20 06/12/2019 HbA1c (hemo globi n A1c), blood hemoglobin A1C 6.3 % 4.3-5. 8 high Not Available [facility] [address] [place] [address], [address], 06/12/2019 15:32:59 06/12/19 20 06/12/2019 lipid panel [...] hormharjinder lares, sex and age. Not Available [facility] [address] [place], [address], 06/12/2019 15:58:07 06/12/19 20 06/12/2019 lipid panel , blood cholesterol 176 mg/dL 0-240 Not Available [facility] [address] [place], [address], 06/12/2019 15:58:07 06/12/19 20 06/12/2019 lipid panel , blood triglyceride s 199 mg/dL 30-160 high Not Available [facility] [address] [place], [address], 06/12/2019 15:58:07 06/12/19 20 06/12/2019 lipid panel , blood LDL 98 mg/dL 50-129 LDL level s in terms of risk for coron amol heart disea se: <100 mg/dL : Optim al 100-1 29 mg/dL : Near or above optim al 130-1 59 mg/dL : Borde rline high 160-1 89 mg/dL : High >190 mg/dL : Very High Not Available [facility] [address] [place], [address], 06/12/2019 15:58:07 06/12/19 20 06/12/2019 lipid panel , blood cardiac risk ratio 4.6 3.3-4. 4 high Not Available [facility] [address] [place], [address], 06/12/2019 15:58:07 06/12/19 20 06/12/2019 micro album in/cr eatin ine, mass ratio , urine urine microalbumin <1.2 mg/dL 0-2.3 Not Available [facility] [address] [place], [address], 06/12/2019 16:00:19 06/12/19 20 06/12/2019 micro album in/cr eatin ine, mass ratio , urine urine creatinine 58 mg/dL Not Available [facility] ([facility] [address] [place], [address], 06/12/2019 16:00:19 06/12/19 20 06/12/2019 micro album in/cr eatin ine, mass ratio , urine microalb/cre ratio NOT CALCUL ATED mg/g_ cre 0-20 due to Micro album in <1.2 Not Available [facility] [address] [place], [address], 06/12/2019 16:00:19 06/12/19 20 06/12/2019 CMP, serum or plasm a sodium 139 mmol/ L 133-14 6 Not Available [facility] [address] [place], [address], 06/12/2019 16:09:37 06/12/19 20 06/12/2019 CMP, serum or plasm a potassium 4.8 mmol/ L 3.3-5. 1 Not Available [facility] [address] [place], [address], 06/12/2019 16:09:37 06/12/19 20 06/12/2019 CMP, serum or plasm a chloride 103 mmol/ L 96-108 Not Available [facility] [address] [place], [address], 06/12/2019 16:09:37 06/12/19 20 06/12/2019 CMP, serum or plasm a CO2 23 mmol/ L 21-35 Not Available [facility] [address] [place], [address], 06/12/2019 16:09:37 06/12/19 20 06/12/2019 CMP, serum or plasm a BUN 21 mg/dL 6-19 high Not Available [facility] [address] [place], [address], 06/12/2019 16:09:37 06/12/19 20 06/12/2019 CMP, serum or plasm a creatinine 1.20 mg/dL 0.5-1. 5 Not Available [facility] [address] [place], [address], 06/12/2019 16:09:37 06/12/19 20 06/12/2019 CMP, serum or plasm a glucose 116 mg/dL 70-99 high Not Available [facility] [address] [place], [address], 06/12/2019 16:09:37 06/12/19 20 06/12/2019 CMP, serum or plasm a albumin 4.4 g/dL 3.9-4. 8 Not Available [facility] [address] [place], [address], 06/12/2019 16:09:37 06/12/19 20 06/12/2019 CMP, serum or plasm a total protein 7.7 g/dL 6.5-8. 0 Not Available [facility] [address] [place], [address], 06/12/2019 16:09:37 06/12/19 20 06/12/2019 CMP, serum or plasm a calcium 10.9 mg/dL 8.4-10 .3 high Not Available [facility] [address] [place], [address], 06/12/2019 16:09:37 06/12/19 20 06/12/2019 CMP, serum or plasm a alkaline phosphatase 61 U/L 39-117 Not Available [facility] [address] [place], [address], 06/12/2019 16:09:37 06/12/19 20 06/12/2019 CMP, serum or plasm a total bilirubin 0.2 mg/dL 0.0-1. 2 Not Available [facility] [address] [place], [address], 06/12/2019 16:09:37 06/12/19 20 06/12/2019 CMP, serum or plasm a AST 22 U/L 0-37 Not Available [facility] [address] [place], [address], 06/12/2019 16:09:37 06/12/19 20 06/12/2019 CMP, serum or plasm a ALT 9 U/L 0-40 Not Available [facility] [address] [place], [address], 06/12/2019 16:09:37 06/12/19 20 06/12/2019 CMP, serum or plasm a globulin 3.3 g/dL 1-4.8 Not Available [facility] [address] [place], [address], 06/12/2019 16:09:37 06/12/19 20 06/12/2019 CMP, serum or plasm a eGFR 44 mL/mi n/1.7 3m2 >59 low If patie nt is black , multi ply resul t by 1.159 . Estim ated glome rular filtr ation rate calcu lated using the CKD-E PI equat ion. Not Available [facility] [address] [place], [address], 06/12/2019 16:09:37 06/12/19 20 06/12/2019 CMP, serum or plasm a anion gap 18 mmol/ L 10-20 Not Available [facility] [address] [place], [address], 06/12/2019 16:09:37 06/12/19 20 06/12/2019 T4, free, serum free T4 1.4 NG/dL 0.9-1. 7 Not Available [facility] [address] [place], [address], 06/12/2019 16:09:39 06/12/19 20 06/12/2019 TSH, serum or plasm a TSH 1.12 uIU/m L 0.27-4 .20 Not Available [facility] [address] [place], [address], 06/12/2019 16:09:40 09/10/01/21/2020 HbA1c (hemo globi n A1c), blood hemoglobin A1C 6.1 % 4.3-5. 8 high Not Available [facility] [address] [place], [address], 01/21/2020 11:26:48 01/21/2001/21/2020 lipid panel , blood [...] philly lares, sex and age. Not Available [facility] [address] [place], [address], 01/21/2020 11:36:33 01/21/2001/21/2020 lipid panel , blood cholesterol 163 mg/dL 0-240 Not Available [facility] [address] [place], [address], 01/21/2020 11:36:33 01/21/2001/21/2020 lipid panel , blood triglyceride s 289 mg/dL 30-160 high Not Available [facility] [address] [place], [address], 01/21/2020 11:36:33 01/21/2001/21/2020 lipid panel , blood LDL 69 mg/dL 50-129 LDL level s in terms of risk for coron amol heart disea se: <100 mg/dL : Optim al 100-1 29 mg/dL : Near or above optim al 130-1 59 mg/dL : Borde rline high 160-1 89 mg/dL : High >190 mg/dL : Very High Not Available [facility] [address] [place], [address], 01/21/2020 11:36:33 01/21/20 20 01/21/2020 lipid panel , blood cardiac risk ratio 4.5 3.3-4. 4 high Not Available [facility] [address] [place], [address], 01/21/2020 11:36:33 01/21/20 20 01/21/2020 vitam in D, 25-hy droxy , total , serum 25 oh vit D (total) 37 NG/mL 30-60 Not Available [facility] [address] [place], [address], 01/21/2020 11:50:58 01/21/2001/21/2020 CMP, serum or plasm a sodium 137 mmol/ L 133-14 6 Not Available [facility] [address] [place], [address], 01/21/2020 11:51:29 01/21/2001/21/2020 CMP, serum or plasm a potassium 5.0 mmol/ L 3.3-5. 1 Not Available [facility] [address] [place], [address], 01/21/2020 11:51:29 01/21/2001/21/2020 CMP, serum or plasm a chloride 105 mmol/ L 96-108 Not Available [facility] [address] [place], [address], 01/21/2020 11:51:29 01/21/2001/21/2020 CMP, serum or plasm a CO2 21 mmol/ L 21-35 Not Available [facility] [address] [place], [address], 01/21/2020 11:51:29 01/21/2001/21/2020 CMP, serum or plasm a BUN 27 mg/dL 6-19 high Not Available [facility] [address] [place], [address], 01/21/2020 11:51:29 01/21/20 20 01/21/2020 CMP, serum or plasm a creatinine 1.50 mg/dL 0.5-1. 5 Not Available [facility] [address] [place], [address], 01/21/2020 11:51:29 01/21/20 20 01/21/2020 CMP, serum or plasm a glucose 129 mg/dL 70-99 high Not Available [facility] [address] [place], [address], 01/21/2020 11:51:29 01/21/20 20 01/21/2020 CMP, serum or plasm a albumin 4.3 g/dL 3.9-4. 8 Not Available [facility] [address] [place], [address], 01/21/2020 11:51:29 01/21/20 20 01/21/2020 CMP, serum or plasm a total protein 7.3 g/dL 6.5-8. 0 Not Available [facility] [address] [place], [address], 01/21/2020 11:51:29 01/21/20 20 01/21/2020 CMP, serum or plasm a calcium 11.2 mg/dL 8.4-10 .3 high Not Available [facility] [address] [place], [address], 01/21/2020 11:51:29 01/21/20 20 01/21/2020 CMP, serum or plasm a alkaline phosphatase 48 U/L 39-117 Not Available [facility] ([facility] [address] [place], [address], 01/21/2020 11:51:29 01/21/20 20 01/21/2020 CMP, serum or plasm a total bilirubin 0.3 mg/dL 0.0-1. 2 Not Available [facility] [address] [place], [address], 01/21/2020 11:51:29 01/21/20 20 01/21/2020 CMP, serum or plasm a AST 15 U/L 0-37 Not Available [facility] [address] [place], [address], 01/21/2020 11:51:29 01/21/20 20 01/21/2020 CMP, serum or plasm a ALT 6 U/L 0-40 Not Available [facility] [address] [place], [address], 01/21/2020 11:51:29 01/21/20 20 01/21/2020 CMP, serum or plasm a globulin 3.0 g/dL 1-4.8 Not Available [facility] [address] [place], [address], 01/21/2020 11:51:29 01/21/20 20 01/21/2020 CMP, serum or plasm a eGFR 33 mL/mi n/1.7 3m2 >59 low Estim ated glome rular filtr ation rate calcu lated using the CKD-E PI equat ion. Not Available [facility] [address] [place], [address], 01/21/2020 11:51:29 01/21/20 20 01/21/2020 CMP, serum or plasm a anion gap 16 mmol/ L 10-20 Not Available [facility] [address] [place], [address], 01/21/2020 11:51:29 01/21/2001/21/2020 T4, free, serum free T4 1.1 NG/dL 0.9-1. 7 Not Available [facility] [address] [place], [address], 01/21/2020 11:51:31 01/21/20 20 01/21/2020 TSH, serum or plasm a TSH 1.88 uIU/m L 0.27-4 .20 Not Available [facility] [address] [place], [address], 01/21/2020 11:51:33 01/21/20 20 01/21/2020 micro album in/cr eatin ine, mass ratio , urine urine microalbumin <1.2 mg/dL 0-2.3 Not Available [facility] (Outpatient) [address] [place], [address], 01/21/2020 16:09:45 01/21/20 20 01/21/2020 micro album in/cr eatin ine, mass ratio , urine urine creatinine 83 mg/dL Not Available [facility] (Outpatient) [address] [place] [address], [id number], 01/21/2020 16:09:45 01/21/20 20 01/21/2020 micro album in/cr eatin ine, mass ratio , urine microalb/cre ratio NOT CALCUL ATED mg/g_ cre 0-20 due to Micro album in <1.2 Not Available [facility] (Outpatient) [address] [place], [address], 01/21/2020 16:09:45 09/03/19 21 09/02/2020 CMP, serum or plasm a sodium 139 mmol/ L 133-14 6 Not Available [facility] (Outpatient) [address] [place] [address], [id number], 09/02/2020 11:43:26 09/03/19 21 09/02/2020 CMP, serum or plasm a potassium 5.3 mmol/ L 3.3-5. 1 high Not Available [facility] (Outpatient) [address] [place] [address], [id number], 09/02/2020 11:43:26 09/03/19 21 09/02/2020 CMP, serum or plasm a chloride 106 mmol/ L 96-108 Not Available [facility] (Outpatient) [address] [place], [address], 09/02/2020 11:43:26 09/03/19 21 09/02/2020 CMP, serum or plasm a CO2 23 mmol/ L 21-35 Not Available [facility] (Outpatient) [address] [place], [address], 09/02/2020 11:43:26 09/03/19 21 09/02/2020 CMP, serum or plasm a BUN 26 mg/dL 6-19 high Not Available [facility] (Outpatient) [address] [place], [address], 09/02/2020 11:43:26 09/03/19 21 09/02/2020 CMP, serum or plasm a creatinine 1.40 mg/dL 0.5-1. 5 Not Available [facility] (Outpatient) [address] [place], [address], 09/02/2020 11:43:26 09/03/19 21 09/02/2020 CMP, serum or plasm a glucose 114 mg/dL 70-99 high Not Available [facility] (Outpatient) [address] [place], [address], 09/02/2020 11:43:26 09/03/19 21 09/02/2020 CMP, serum or plasm a albumin 4.3 g/dL 3.9-4. 8 Not Available [facility] (Outpatient) [address] [place], [address], 09/02/2020 11:43:26 09/03/19 21 09/02/2020 CMP, serum or plasm a total protein 7.6 g/dL 6.5-8. 0 Not Available [facility] (Outpatient) [address] [place], [address], 09/02/2020 11:43:09/03/19 21 09/02/2020 CMP, serum or plasm a calcium 10.7 mg/dL 8.4-10 .3 high Not Available [facility] (Outpatient) [address] [place] [address], [address], 09/02/2020 11:43:26 09/03/19 21 09/02/2020 CMP, serum or plasm a alkaline phosphatase 56 U/L 39-117 Not Available [facility] (Outpatient) [address] [place], [address], 09/02/2020 11:43:09/03/19 21 09/02/2020 CMP, serum or plasm a total bilirubin 0.2 mg/dL 0.0-1. 2 Not Available [facility] (Outpatient) [address] [place], [address], 09/02/2020 11:43:26 09/03/19 21 09/02/2020 CMP, serum or plasm a AST 16 U/L 0-37 Not Available [facility] (Outpatient) [address] [place], [address], 09/02/2020 11:43:26 09/03/19 21 09/02/2020 CMP, serum or plasm a ALT 7 U/L 0-40 Not Available [facility] (Outpatient) [address] [place] [address], [id number], 09/02/2020 11:43:26 09/03/19 21 09/02/2020 CMP, serum or plasm a globulin 3.3 g/dL 1-4.8 Not Available [facility] (Outpatient) [address] [place] [address], [address], 09/02/2020 11:43:26 09/03/19 21 09/02/2020 CMP, serum or plasm a eGFR 36 mL/mi n/1.7 3m2 >59 low Estim ated glome rular filtr ation rate calcu lated using the CKD-E PI equat ion. Not Available [facility] (Outpatient) [address] [place], [address], 09/02/2020 11:43:26 09/03/19 21 09/02/2020 CMP, serum or plasm a anion gap 15 mmol/ L 10-20 Not Available [facility] (Outpatient) [address] [place], [address], 09/02/2020 11:43:26 09/03/19 21 09/02/2020 lipid panel , blood HDL 38 mg/dL Inter preta tion <40 mg/dL : Low HDL abrahan stero l (jennifer r risk facto r for CHD) Great er than or equal to 60 mg/dL : High HDL abrahan stero l ( neg ative risk facto r for CHD) HDL - abrahan stero l is affec carilto by a numbe r of facto rs, e.g. becki ashford, delfino ayala, hormo arnaud, sex and age. Not Available [facility] (Outpatient) [address] [place], [address], 09/02/2020 12:00:24 09/03/1909/02/2020 lipid panel , blood cholesterol 139 mg/dL 0-240 Not Available [facility] (Outpatient) [address] [place], [address], 09/02/2020 12:00:24 09/03/19 21 09/02/2020 lipid panel , blood triglyceride s 164 mg/dL 30-160 high Not Available [facility] (Outpatient) [address] [place], [address], 09/02/2020 12:00:24 09/03/1909/02/2020 lipid panel , blood LDL 68 mg/dL 50-129 LDL level s in terms of risk for coron amol heart disea se: <100 mg/dL : Optim al 100-1 29 mg/dL : Near or above optim al 130-1 59 mg/dL : Borde rline high 160-1 89 mg/dL : High >190 mg/dL : Very High Not Available [facility] (Outpatient) [address] [place], [address], 09/02/2020 12:00:24 09/03/19 21 09/02/2020 lipid panel , blood cardiac risk ratio 3.7 3.3-4. 4 Not Available [facility] (Outpatient) [address] [place], [address], 09/02/2020 12:00:24 09/03/19 21 09/02/2020 HbA1c (hemo globi n A1c), blood hemoglobin A1C 6.2 % 4.3-5. 8 high Not Available [facility] (Outpatient) [address] [place], [address], 09/02/2020 13:55:19 09/07/19 21 09/06/2020 micro album in/cr eatin ine, mass ratio , urine urine microalbumin <1.2 mg/dL 0-2.3 Not Available [facility] (Outpatient) [address] [place], [address], 09/06/2020 18:43:58 09/07/19 21 09/06/2020 micro album in/cr eatin ine, mass ratio , urine urine creatinine 34 mg/dL Not Available [facility] (Outpatient) [address] [place], [address], 09/06/2020 18:43:58 09/07/19 21 09/06/2020 micro album in/cr eatin ine, mass ratio , urine microalb/cre ratio NOT CALCUL ATED mg/g_ cre 0-20 due to Micro album in <1.2 Not Available [facility] (Outpatient) [address] [place], [address], 09/06/2020 18:43:58 02/03/20 21 02/02/2021 HEMOG LOBIN A1C hemoglobin A1C 6.1 % 4.3-5. 8 high Not Available [facility] (Outpatient) [address] [place], [address], 02/02/2021 10:57:24 02/03/20 21 02/02/2021 LIPID PANEL [...] philly arnaud, sex and age. Not Available [facility] (Outpatient) [address] [place], [address], 02/02/2021 11:05:04 02/03/20 21 02/02/2021 LIPID PANEL cholesterol 159 mg/dL 0-240 Not Available [facility] (Outpatient) [address] [place], [address], 02/02/2021 11:05:04 02/03/20 21 02/02/2021 LIPID PANEL triglyceride s 247 mg/dL 30-160 high Not Available [facility] (Outpatient) [address] [place], [address], 02/02/2021 11:05:04 02/03/20 21 02/02/2021 LIPID PANEL LDL 74 mg/dL 50-129 LDL level s in terms of risk for coron amol heart disea se: <100 mg/dL : Optim al 100-1 29 mg/dL : Near or above optim al 130-1 59 mg/dL : Borde rline high 160-1 89 mg/dL : High >190 mg/dL : Very High Not Available [facility] (Outpatient) [address] [place], [address], 02/02/2021 11:05:04 02/03/20 21 02/02/2021 LIPID PANEL cardiac risk ratio 4.4 3.3-4. 4 Not Available [facility] (Outpatient) [address] [place], [address], 02/02/2021 11:05:04 02/03/20 21 02/02/2021 25-OH VITAM IN D 25 oh vit D (total) 34 NG/mL 30-60 Not Available [facility] (Outpatient) [address] [place], [address], 02/02/2021 11:16:20 02/03/20 21 02/02/2021 COMPR EHENS FORTINO METAB OLIC PANEL sodium 138 mmol/ L 133-14 6 Not Available [facility] (Outpatient) [address] [place], [address], 02/02/2021 11:26:12 02/03/20 21 02/02/2021 COMPR EHENS FORTINO METAB OLIC PANEL potassium 5.2 mmol/ L 3.3-5. 1 high Not Available [facility] (Outpatient) [address] [place], [address], 02/02/2021 11:26:12 02/03/20 21 02/02/2021 COMPR EHENS FORTINO METAB OLIC PANEL chloride 107 mmol/ L 96-108 Not Available [facility] (Outpatient) [address] [place], [address], 02/02/2021 11:26:12 02/03/20 21 02/02/2021 COMPR EHENS FORTINO METAB OLIC PANEL CO2 21 mmol/ L 21-35 Not Available [facility] (Outpatient) [address] [place], [address], 02/02/2021 11:26:12 02/03/20 21 02/02/2021 COMPR EHENS FORTINO METAB OLIC PANEL BUN 28 mg/dL 6-19 high Not Available [facility] (Outpatient) [address] [place], [address], 02/02/2021 11:26:12 02/03/20 21 02/02/2021 COMPR EHENS FORTINO METAB OLIC PANEL creatinine 1.50 mg/dL 0.5-1. 5 Not Available [facility] (Outpatient) [address] [place], [address], 02/02/2021 11:26:12 02/03/20 21 02/02/2021 COMPR EHENS FORTINO METAB OLIC PANEL glucose 117 mg/dL 70-99 high Not Available [facility] (Outpatient) [address] [place], [address], 02/02/2021 11:26:12 02/03/20 21 02/02/2021 COMPR EHENS FORTINO METAB OLIC PANEL albumin 4.3 g/dL 3.9-4. 8 Not Available [facility] (Outpatient) [address] [place], [address], 02/02/2021 11:26:12 02/03/20 21 02/02/2021 COMPR EHENS FORTINO METAB OLIC PANEL total protein 7.2 g/dL 6.5-8. 0 Not Available [facility] (Outpatient) [address] [place], [address], 02/02/2021 11:26:12 02/03/20 21 02/02/2021 COMPR EHENS FORTINO METAB OLIC PANEL calcium 11.1 mg/dL 8.4-10 .3 high Not Available [facility] (Outpatient) [address] [place], [address], 02/02/2021 11:26:12 02/03/20 21 02/02/2021 COMPR EHENS FORTINO METAB OLIC PANEL alkaline phosphatase 56 U/L 39-117 Not Available [facility] (Outpatient) [address] [place], [address], 02/02/2021 11:26:12 02/03/20 21 02/02/2021 COMPR EHENS FORTINO METAB OLIC PANEL total bilirubin 0.3 mg/dL 0.0-1. 2 Not Available [facility] (Outpatient) [address] [place] [address], [address], 02/02/2021 11:26:12 02/03/20 21 02/02/2021 COMPR EHENS FORTINO METAB OLIC PANEL AST 14 U/L 0-37 Not Available [facility] (Outpatient) [address] [place], [address], 02/02/2021 11:26:12 02/03/20 21 02/02/2021 COMPR EHENS FORTINO METAB OLIC PANEL ALT 8 U/L 0-40 Not Available [facility] (Outpatient) [address] [place] [address], [address], 02/02/2021 11:26:12 02/03/20 21 02/02/2021 COMPR EHENS FORTINO METAB OLIC PANEL globulin 2.9 g/dL 1-4.8 Not Available [facility] (Outpatient) [address] [place] [address], [address], 02/02/2021 11:26:12 02/03/20 21 02/02/2021 COMPR EHENS FORTINO METAB OLIC PANEL eGFR 33 mL/mi n/1.7 3m2 >59 low Estim ated glome rular filtr ation rate calcu lated using the CKD-E PI equat ion. Not Available [facility] (Outpatient) [address] [place], [address], 02/02/2021 11:26:12 02/03/20 21 02/02/2021 COMPR EHENS FORTINO METAB OLIC PANEL anion gap 15 mmol/ L 10-20 Not Available [facility] (Outpatient) [address] [place], [address], 02/02/2021 11:26:12 02/03/20 21 02/02/2021 FREE T4 free T4 1.4 NG/dL 0.9-1. 7 Not Available [facility] (Outpatient) [address] [place], [address], 02/02/2021 11:26:14 02/03/20 21 02/02/2021 TSH TSH 0.91 uIU/m L 0.27-4 .20 Not Available [facility] (Outpatient) [address] [place], [address], 02/02/2021 11:26:15 02/03/20 21 02/02/2021 MICRO ALBUM IN/CR EATIN INE RATIO , RANDO M URINE urine microalbumin <1.2 mg/dL 0-2.3 Not Available [facility] (Outpatient) [address] [place], [address], 02/02/2021 17:50:10 02/03/20 21 02/02/2021 MICRO ALBUM IN/CR EATIN INE RATIO , RANDO M URINE urine creatinine 97 mg/dL Not Available [facility] (Outpatient) [address] [place], [address], 02/02/2021 17:50:10 02/03/20 21 02/02/2021 MICRO ALBUM IN/CR EATIN INE RATIO , RANDO M URINE microalb/cre ratio NOT CALCUL ATED mg/g_ cre 0-20 due to Micro album in <1.2 Not Available [facility] (Outpatient) [address] [place], [address], 02/02/2021 17:50:10 10/14/19 bone densi ty No [...] Details Recorded Time Disorder of thyroid gland 75507599 [facility] 08:[facility]01 Disorder of vitamin D 326725927 Active 2017 Paula Rothman LPN [facility] 8 08:28:14 Hypercalc emia 53744567 [facility] 8 08:28:28 Type 2 diabetes mellitus without complicat ion 119854909 Active 2017 Paula Rothman LPN [facility] 8 08:29:28 Chronic kidney disease stage 3 013569858 Active 08/2020 lab results Lynda Randall LPN [facility] 1 10:07:59 Chronic kidney disease due to type 2 diabetes mellitus 518216251618 Active 2020 LABS 02/02/2021 GFR 33 Milana Kashif [facility] 1 09:47:09 Morbid obesity 945863033 Active 2021 BMI > or = 35 plus diagnosis of diabetes. Brenda Reddy LPN [facility] 2 10:11:12 Problem Notes None recorded. Procedures Surgical History Date Name Laterality Status Provider Name and Address Organization Details Recorded Time 8 Unlisted px accessory sinus completed Alla Emerson [facility] 03/27/2019 10:35:47 Imaging Results Imaging Date Name [...] Name and Address Organization Details Recorded Time 357247 Product containin g angiotens in-conver ting enzyme inhibitor (product) medicatio n Not available Not available Not available 06/16/2024 46049 009 SNOMED throa t swell ing Sangeetha Marcial, BUSINESS INFORMATION ANALYST [facility] 5 11:32:28 Medications Name Sig Start Date [...] Updated DateTime 8 156.21 cm 38.3 kg/m2 79027.3 1 g 72 /min 142 mm[Hg] 73 mm[Hg] Mustapha [facility] 8 09:44:24 Date Recorded Body height Body mass index (BMI) Body weight Heart rate Systolic blood pressure Diastolic blood pressure Provider Name and Address Organization Details Last Updated DateTime 9 158.12 cm 38 kg/m2 80032.5 2 g 64 /min 122 mm[Hg] 64 mm[Hg] Alla Emerson [facility] 9 10:38:49 Date Recorded Body weight Body mass index (BMI) Body height Heart rate Systolic blood pressure Diastolic blood pressure Provider Name and Address Organization Details Last Updated DateTime 1 48599.8 1 g 36.8 kg/m2 158.12 cm 86 /min 118 mm[Hg] 72 mm[Hg] Sri Leahy RN [facility] 1 09:57:09 Date Recorded Body weight Body mass index (BMI) Body height Heart rate Systolic blood pressure Diastolic blood pressure Provider Name and Address Organization Details Last Updated DateTime 5 42556.9 1 g 36.7 kg/m2 157.48 cm 92 /min 129 mm[Hg] 68 mm[Hg] Sangeetha Ceja LPN [facility] 5 11:42:20 Social History Question Answer Notes LastModified by Organizat ion Details LastModified Time Tobacco Smoking Status Never Smoker Eleazar Olivera maria r [facility] 12/12/2012 08:23:45 What Is Your Level Of Alcohol Consumption? Occasional Rare [email or web address] Information not available 06/16/2024 Which Illicit Or Recreational Drugs Have You Used? 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 navarro Information not available 09/20/2016 Live [...] Mother- age 95- arthirits HTN, thyroid problems, [place] in 60's no siblings MGM- breast cancer [...] formulation 3 completed Jolie Lopez RN null, [facility] 03/05/2013 10:39:33 Influenza, split virus, quadrivalent, preservative 0 completed Gayle Aguila LPN null, [facility] 04/01/2020 08:57:48 COVID-19, mRNA, LNP-S, PF, 30 mcg/0.3 mL dose 1 completed Sri Leahy RN null, [facility] 04/05/2021 09:50:59 COVID-19, mRNA, LNP-S, PF, 30 mcg/0.3 mL dose 1 completed Sri Leahy RN null, [facility] 04/05/2021 09:51:10 Influenza, split virus, quadrivalent, preservative 1 completed Sri Leahy RN null, [facility] 04/05/2021 09:51:28 Past Encounters Encounter ID Performer Location Encounter Start Date Encounter Closed Date Diagnosis/Indication Diagnosis SNOMED-CT Code Diagnosis ICD10 Code Diagnosis Note [id number] Sharron Benito [facility], [address] [address] 12/12/2012 08:00:19 12/12/2012 09:21:36 Hypercalcemia 79737153 Pt with elevated Calcium in 11 in [...] age over 50. Pt to go to [facility] labs [address] [place] [address], givencopy of lab slip at time of visit. BMD 08/15/12 [facility] spine-0.4, hips 01.8 neck -1.3 total, forearm +0.14 Jun 2012 Ca 11 [id number] Nalini Garay LPN [facility], [address] [address] 01/08/2013 15:42:16 01/08/2013 17:00:59 Disorder of thyroid gland 39857664 TSh 11 and has had TSH of [...] repeats labs would like to go to [address] since open Saturday AM and pt lives near there. Disorder of vitamin D 247391430 Vit D 18 and PTH slighlty elevated at 75. Caclium stable at 11.0 to 11.2 with normal/low urinary calcium. Most consistent with [facility]. Will try to slowly replete D and see if PTH corrects and aches resolve. Will have her take 3000 units of Vit D daily and repeat labs when repeats TSH and FT4 in 6 weeks. Hypercalcemia 33229185 s ee above. Will continue to monitor Calcium levels. 24 hour urine studies most consistent ly with [facility]. Explained to pt that people with [facility] have higher set points for calcium. If correction of D and TSH does not alleviate symptoms, and calcium remain elevated then will reevaluate at that time. [id number] Nalini Garay LPN [facility], [address] [address] 03/05/2013 10:31:44 03/05/2013 11:40:00 Disorder of thyroid gland 63900907 TSH was 11 and is now in [...] repeats labs would like to go to [address] since open Saturday AM and pt lives near there. Disorder of vitamin D 813323860 Vit D is now 26. Ca normal at 10.6, Will have her increase Vit D to 4000 units to get level over 30 and continue this through the winter. Will continue to monitor Ca in renal panel. Labs q 3 months and f/u in 6 months. repeat labs with next TSH in 3 months. Hypercalcemia 86586775 C a normal at 10.6 . see above. Hx=24 hour urine studies most consistent ly with [facility]. If correction of D and TSH does not alleviate symptoms, and calcium remain elevated then will reevaluate at that time. Left bundl e branch block [id number] TSH improved to 4 from 11. Do not think T4 could be reason for extra beat pt is feeling. Pt to have f/u with Dr. Estevez in a few weeks and will discuss with him as well. [id number] [facility], [address] [address] 09/03/2013 10:31:16 09/03/2013 11:33:21 Disorder of thyroid gland 79402744 Is seeing Dr.Kirchof rojas in a few weeks to have f/u on her LBBB (preexisti ng condition) . Pt had echo in November and told has 20-30% blockage. Pt states on ASA and statin for this. labs would like to go to [address] since open Saturday AM and pt lives near there. Disorder of vitamin D 306428563 Hypercalcemia 91284933 H x=24 hour urine studies most consistent ly with [facility]. If correction of D and TSH does not alleviate symptoms, and calcium remain elevated then will reevaluate at that time. Left nader e branch block [id number] contf/u with Dr. Estevez . [id number] [facility], [address] [address] 03/04/2014 14:26:06 03/04/2014 15:23:06 Disorder of thyroid gland 05577250 Disorder of vitamin D 165109163 Hypercalcemia 44556391 H x=24 hour urine studies most consistent ly with [facility]. If correction of D and TSH does not alleviate symptoms, and calcium remain elevated then will reevaluate at that time. Left pratima e branch block [id number] contf/u with Dr. Estevez . [id number] [facility], [address] [address] 09/21/2014 09:20:13 09/21/2014 10:22:15 Disorder of thyroid gland 74194056 TSH was 11 in 2012 and pt started on T4. TSH stable and to goal. Cont on 50 mcg daily of T4. f/u in 12 months labs q 6 months. Call if symptoms in the meantime and can decide about drawing labs sooner than recommende d date. Lab pt prefers is [address] since open Saturday AM and pt lives near there. Disorder of vitamin D 519057779 Vit D replete at 47 and Ca normal at 10.6,cont Vit D to 4000 units. Labs q 6 months and f/u yearly. Hypercalcemia 03065301 C a normal at 10.6 . see above. Hx=24 hour urine studies most consistent ly with [facility]. If correction of D and TSH does not alleviate symptoms, and calcium remain elevated then will reevaluate at that time. Left nader e branch block [id number] Follows with Dr.Kirchof rojas --hx of LBBB (preexisti ng condition) . Pt had echo in November 2013 and told has 20-30% blockage. Pt states on ASA and statin for this. last appt May 2014 when had pacer replaced. F/u with Dr. Estevez . [id number] Maryuri Torres PA-C [facility], [address] [address] 09/20/2015 09:34:26 09/20/2015 10:19:42 Disorder of thyroid gland 44630019 E07.9 TSH 4 and pt typically in 2's. Will try 75 mcg daily and repeat labs in 8 weeks. Will contact her if dose needs further adjustment after labs. Labs q 4 months after dose stable. f/u in 12 months. Call if symptoms in the meantime and can decide about drawing labs sooner than recommende d date. Lab pt prefers is [address] since open Saturday AM and pt lives near there. Disorder of vitamin D 38 0747776 E56.9 Vit D remaining replete Ca stable at 10.6. Cont Vit D to 4000 units. Labs q 6 months (March and September) and f/u yearly. Hypercalcemia 76554150 E 83.52 PTH normal. Ca normal at 10.6 . Cont to monitor q 6 months (March and September). Hx=24 hour urine studies most consistent ly with [facility]. If correction of D and TSH does not alleviate symptoms, and calcium remain elevated then will reevaluate at that time. [id number] Maryuri Torres PA-C [facility], [address] [address] 09/20/2016 09:44:08 09/20/2016 10:26:42 Disorder of thyroid gland 20143125 E07.21 Jun 2016 labs to goal on 75 mcg of T4 daily. Cont this dose with labs q 6 months. F/u in 12 months. Lab pt prefers is [address] since open Saturday AM and pt lives near there. Disorder of vitamin D 38 6255963 E56.9 see below. Cont Vit D to 4000 units. Hypercalcemia 08950254 E 83.52 PTH had been normal in [...] Type 2 chanel betes mellitus without complication 281822681 E11.9 Managed by PCP and per pt A1c under 7. [id number] Maryuri Torres PA-C [facility], [address] [address] 06/10/2017 09:27:23 06/10/2017 10:47:39 Disorder of thyroid gland 07603438 E07.21 Mar 2017 labs to goal on 75 mcg of T4 daily. Cont this dose with labs q 6 months. Keep f/u in September. Lab pt prefers is [address] since open Saturday AM and pt lives near there. Disorder of vitamin D 38 9398278 E56.9 see below. Cont Vit D to 4000 units but want to update. 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 If D remaining high will reduce D level. May be able to lower D level. Keep appt in September. Hypercalcemia 27812643 E 83.52 PTH had been normal in setting of normal Ca and Vit D. Never got repeat Mar lab from [facility], looking at results in [facility] Ca [...] Type 2 chanel betes mellitus without complication 056632745 E11.9 Managed by PCP and per pt A1c under 7. [id number] Maryuri Torres PA-C [facility], [address] [address] 09/19/2017 09:24:45 09/19/2017 10:10:11 Disorder of thyroid gland 61673426 E07.19 August 2017 labs to goal.Cont levothyrox ine 75 mcg daily Labs q 6 months. Keep f/u in 6 months. Lab pt prefers is [address] since open Saturday AM and pt lives near there. Disorder of vitamin D 38 2332941 E56.9 Vit D was in 80's so dropped to 2000 units daily. Current testing remaining in 60's. With summer coming will have her take 1000 units daily and then in FAll (January - July) Take 2000 units in the winter. Hypercalcemia 32217743 E 83.52 PTH rising in setting of [...] Type 2 chanel betes mellitus without complication 093454146 E11.9 Managed by PCP and per pt A1c under 7 on low dose metformin ACR negative as well as of September 2017 testing with PCP. [id number] Maryuri Torres PA-C [facility], [address] [address] 03/28/2018 09:34:36 03/28/2018 10:29:32 Disorder of thyroid gland 92155800 E07.9 TSH normal Feb TSH 0.81 FT4 1.5 Cont levothyrox ine 75 mcg daily Labs q 6 months. Keep f/u in 6 months. Lab pt prefers is [address] since open Saturday AM and pt lives near there. Disorder of vitamin D 38 0379782 E56.9 03/12/18 Vit D still > 60. She had increased to 2000 units in February but do not have to increase. Will have her take 1000 units daily and check again in May 2018. Hypercalcemia 58261993 E 83.52 PTH remains high in setting [...] time and can monitor. She remains on [place]. Discussed importance of good hydration for both kidneys and calcium levels . Monitor renal panel with Vit D in May and then q 6 months after that. Recommend she update her bone density in the setting of PTH elevation related to kidney function. f/u in Endocrine yearly unless changes. Hx=24 hour urine studies most consistent with [facility]. Type 2 chanel betes mellitus without complication 389675852 E11.9 Managed by PCP and per pt A1c under 7 on low dose metformin. Per pt a1c 6.1 at last testing. [id number] Jamaal Ham MD Endocrino logy, [address] [phone] 03/27/2019 10:18:13 03/27/2019 11:30:27 Type 2 diabetes mellitus without complication [id number] E11.9 On metformin 500 mg daily- decreased by PCP Kristine because of increased creatinine .Doing well. With PCP's group home , pt. asking for more diabetes care here. Disorder of vitamin D 38 7464700 E55.9 42.2 (03/31); had been low in past but not in past years. Hypercalcemia 47587865 E 83.52 [facility] as evidenccd by low urinary calcium (41 mg/24hr in 10/28) and high serum calcium.Cr eat= 1.5 (lately 1.3-1.6); Ca= 10.9 (was 10.8) ; Phos= 3.2 Hypothyroidism 26657132 E03.9 On 75 mcg levothyrox ine.Doing well clinically . [id number] Jamaal Ham MD Endocrino logy, [address] [phone] 04/01/2020 08:45:09 04/01/2020 20:00:33 Type 2 diabetes mellitus without complication 527785656 E11.9 On metformin 500 mg daily- decreased by PCP Kristine because of increased creatinine .Doing well.a1c in 6s. no evidence of complicati ons at present. Disorder of vitamin D 38 0424581 E55.9 37 (01/30); was 42.2 (03/31); had been low in past but not in past years.Take s 1000 units daily. Hypercalcemia 12278318 E 83.52 [facility] as evidenced by low urinary calcium (41 mg/24hr in 10/28) and high serum calcium.Cr eat= 1.5 (lately 1.3-1.6); Ca= 10.9 (was 10.8) ; Phos= 3.2 Hypothyroidism 67754042 E03.9 On 75 mcg levothyrox ine.Doing well clinically . 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 [id number] Jamaal Ham MD Endocrino logy, [address] [phone] 04/05/2021 09:42:53 04/07/2021 06:32:39 Type 2 diabetes mellitus without complication 329172253 E11.9 On metformin 500 mg daily- decreased by PCP (Valarie Abad). Hession/Riddhi reyDoing well.a1c in 6s. no evidence of complicati ons at present. Disorder of vitamin D 38 9305881 E55.9 34 (01/31); was 37 (01/30); was 42.2 (03/31); had been low in past but not in past years.Take s 1000 units daily. Hypercalcemia 64253607 E 83.52 [facility] as evidenced by low urinary calcium (41 mg/24hr in 10/28) and high serum calcium.Cr eat= 1.5 (lately 1.3-1.6); Ca= 10.9 (was 10.8) ; Phos= 3.2 Hypothyroidism 72892356 E03.9 On 75 mcg levothyrox ine.Doing well clinically . Re-order levothyrox ine today with refill x 6 but will ask pt. to have PCP refill future Rx's. Dyslipidem ia due to type 2 diabetes mellitus 7236337646 E78.5 2021: 159-247 (were 164)-36-74 2020: 163/289/36 [...] 03/28/2018 1 [place] Nanetta E McElwey [id number] [place] McElwey 03/28/2018 2 [place] [id number] Annetta [place] McElwey [id number] Annet[place] McElwey 03/27/2019 1 [place] Annetta E McElwey [id number] Annetta [place] McElwey 03/27/2019 2 [place] [id number] Annetta [place] McElwey [id number] Annetta [place] McElwey 04/01/2020 1 [place] Annetta E McElwey [id number] 0 Annetta [place] McElwey 04/01/2020 2 [place] [id number] Annetta [place] McElwey [id number] Annetta [place] McElwey 04/05/2021 1 [place] Annetta E McElwey [id number] 0 Annetta Chiny[place] McElwey 04/05/2021 2 [place] [id number] Annetta [place] McElwey [id number] Annetta Chinyere McElwey Notes Date Note [...] systems as below. This is dictated using [employer] voice dictation software. Maryuri Torres PA-C [address] [place] [address], [phone], [facility] 03/31/2018 13:40:03 9 text/html DiabetesReported bypatient.Labs:last Hemoglobin [...] stones. BMD: Done at [facility]. 2018. ROS: No fevers or chills.Had sinus fungal infection in 2018.Can be SOB if rushing and gets anxiousNo muscle aches or pains. No cramping.No dizziness with standing in AM. No bruises or rashes. ` Jamaal Chipkin, MD [address] [place] [address], [phone], [facility] 03/30/2019 15:28:25 0 text/html DiabetesReported bypatient.Labs:last Hemoglobin [...] Hypoglycemia Symptomsfrequency of hypoglycemic episodesinfrequently (metformin only.); [place] funny (Shivering in middle of night- trembling) [...] was notified that the provider location is [facility] Patient location: home During the visit the [...] kidney stones.BMD: Done at [facility]. 2018. ROS: No fevers or chills.Had sinus fungal infection in 2018.Can cough or SOB (besides described elsewhere with activity or stress)No muscle pains. No cramping. Gets leg cramps- has tonic water nightly. No dizziness with standing in AM. No bruises, itching or rashes. Jamaal Ham MD [address] [place] [address], [phone], [facility] 04/01/2020 09:48:45 1 text/html DiabetesReported bypatient.Labs:last Hemoglobin [...] artery disease s/p pacemaker; no retinopathy ([facility] no numbness of feet;kidney disease chronic renal [...] tracings periodically.Will be seeing new CARDS in [facility]But also has had nuclear ETT at [facility] PCP- Valarie Abad.CARDIAC: Switching to [place] (Subramarian)- [...] kidney stones.BMD: Done at [facility]. 2018. ROS:No fevers or chills.Had sinus fungal infection in 2018.Can cough or SOB (besides described elsewhere with activity or stress)No muscle pains. No cramping. Gets leg cramps- has tonic water nightly. No dizziness with standing in AM.No bruises, itching or rashes. Jamaal Ham MD [address] [place] [address], [place], [phone], [facility] 04/05/2021 22:06:34 OBGyn Episode No OBEpisode recorded.
--- OUTSIDE RECORDS SUMMARY | 2024-06-25 07:56 | XMS_ITS ---
Author Organization [facility] Address [address] [place] [phone] Care Team Providers Care Senior Restaurant Manager Name Role Phone Archie Finch MD Primary Care Provider Cash Casanova [phone] REASON FOR VISIT out of omeprazole requesting r/f Encounters Encounter Location Date Provider Diagnosis [facility] [address] [place] [phone] 03/26/2024 Cash Mercado PLAN OF TREATMENT No Information
--- OUTSIDE RECORDS SUMMARY | 2024-06-25 07:57 | XMS_ITS | Patient Health Record ---
Author Organization [facility] Address [address] [place] [address] Care Team Providers Care Production Lead Name Role Phone Archie Finch MD Primary Care Provider Cash Casanova [phone] ALLERGIES Allergen (clinical drug ingredient) Drug/Non Drug Allergy documented on EMR Reaction Allergy Type Onset Date Status angiotensin-converting enzyme inhibitor (FN) EMELIA Inhibitors Unknown Drug Allergy Acti ve RESULTS Component Value Reference Range Notes Glucose, Whole Blood Reviewed date:10/03/2023 09:15:19 AM Interpretation: Performing Lab:[facility], [address] [place] [phone] Notes/Report: Glucose, Whole Blood 128 60-115 mg/dL METER # : [id number] Pathology Reviewed date:10/19/2023 09:51:24 PM Interpretation: Performing Lab:[facility], [address] [place] [phone] Notes/Report: MAMMOGRAM DIGITAL BILATERAL SCREEN Reviewed date:03/03/2024 [...] Orally every 6 hrs Active Biotin Maximum 34781 MCG as directed Orally Active Rosuvastatin Calcium [...] Epigastric pain (R10.13) Active confirmed Epigastric pain (70741174) Problem Encounter for screening for malignant neoplasm of colon (Z12.11) Active confirmed 731640665 Problem History of adenomatous polyp of colon (Z86.010) Active confirmed 534909678 Problem Ulcer of esophagus without bleeding (K22.10) Active confirmed Ulcer of esopha silva (74009092) Problem Diverticulosis of large intestine without perforation or abscess without bleeding (K57.30) Active confirmed Diverticul ar disease of colon (574434619) Problem Gastroesophageal reflux disease without esophagitis (K21.9) Active confirmed 689554598 Problem Hiatal hernia (K44.9) Active confirmed Hiatal hernia (31351815) Problem Gastritis, chronic (K29.50) Active confirmed Chronic gastrit is (3722450) Problem Abnormal CT scan, colon (R93.3) Active confirmed Computed tomography result abnormal (479173249) Problem Erosive esophagitis (K22.10) Active confirmed Erosive esophagitis (90484651) Problem Irregular bowel habits (R19.8) Active confirmed 967649173 Problem Incontinence of feces, unspecified fecal incontinence type (R15.9) Active confirmed 40230441 Problem Hernia, hiatal (K44.9) Active confirmed Diaphragmatic hernia (35590299) Problem Chronic GERD (K21.9) Active confirmed Gastroesophagea l reflux disease (540548382) VITAL SIGNS Temperature 96.9 degrees Fahrenheit 09/18/2023 Blood pressure diastolic 74 mm Hg 03/03/2024 Height 62.50 in 03/03/2024 Blood pressure systolic 130 mm Hg 03/03/2024 Weight 197 lbs 03/03/2024 BMI 35.45 kg/m2 03/03/2024 Encounters Encounter Location Date Provider Diagnosis [facility] Out[facility] [address] [place] [phone] 10/03/[address] scan, co karena R93.3 ; Diverticulosis of large intestine without perforation or abscess without bleeding K57.30 ; Other hemorrhoids K64.8 ; Ulcer of esophagus without bleeding K22.10 ; Hiatal hernia K44.9 ; Gastritis, chronic K29.50 ; Hematemesis K92.0 and Abdominal pain R10.9 [facility] [address] [place] [phone] 10/23/2023 Cash Mercado [facility] [address] [place] [phone] 09/18/[address] scan, co karena R93.3 ; Chronic GERD K21.9 ; Epigastric pain R10.13 and Hiatal hernia K44.9 [facility] [address] [place] [phone] 03/03/2024 Cash Mercado Erosive esophagitis K22.10 and Hernia, hiatal K44.9 [facility] [address] [place] [phone] 09/22/2023 Cash Mercado [facility] [address] [place] [phone] 10/03/2023 Cash Mercado [facility] [address] [place] [phone] 03/15/2024 Cash Mercado [facility] [address] [place] [phone] 03/26/2024 Cash Mercado ASSESSMENTS Encounter Date Diagnosis [...] Insured Coverage Start Date Coverage End Date [facility] [address] [place] [phone] [id number] LULI DE LUNA Self - patient is the insured MEDICAL (GENERAL) HISTORY Medical History History ICD Code NIDDM Hyperlipidemia Hypertension Pacemaker Arthritis Denies [place],CVA,Lung disease,renal disease Urinary incontinence-mild Hypothyroidism Tubular adenomas [...]
[2024-06-25 09:44] LABS: Magnesium 1.6 mg/dL (1.6-2.6)
== END 2024-06-25 07:53 | disposition home or self-care (01) ==
LOC: HO.LABR 07:52
PROVIDERS: PCP Nurse Practitioner Primary Care; Visit Provider Nurse Practitioner Primary Care
DX: E21.3 Hyperparathyroidism, unspecified (principal); E03.9 Hypothyroidism, unspecified; I10 Essential (primary) hypertension
CPT/HCPCS: 36415; 83735

== ENCOUNTER → 2024-06-30 23:59 | Outpatient (BNV) | payer MEDICARE, SELFPAY ==
--- NOTE | 2024-07-06 12:01 | MHC.OFFVIS ---
Intake Visit Reasons: Remote device check- [employer] Allergies EMELIA Inhibitors Adverse Reaction (Severe, Verified 05/18/24 11:37) Angioedema PFSH Medical History Pacemaker at end of battery life Elevated lipase Mass of left lung AV block Type 2 diabetes mellitus with unspecified complications Pacemaker Hypercholesteremia GERD (gastroesophageal reflux disease) Hypothyroid Hypertension Surgical History History of tonsillectomy H/O total knee replacement H/O: hysterectomy Hx of cholecystectomy Family History Mother HTN (hypertension) Heart attack Father No problems noted. Maternal Grandmother Breast cancer Social History Household Members: Spouse Housing: House Do you presently have visiting nurse or other home services: No Alcohol intake: current Alcohol intake frequency: holidays/special occasions only Patient Tobacco Use Status: Never used Tobacco service: No Office Procedures Cardiac Device Check Cardiac Device Check Details: Date of service- 06/30/2024 ; Battery life >10 years; normal lead parameters; AP 9.8%; INSURANCE HEALTHCARE REPRESENTATIVE 99%; very brief NSVT. Overall normal device function. [id number] Cardiac Device Interrogation, pacemaker Procedure code (CPT) selection complete Assessment & Plan Assessment & Plan (1) Pacemaker: Code(s): Z95.0 - Presence of cardiac pacemaker Category: Medical (2) AV block: Code(s): I44.30 - Unspecified atrioventricular block Category: Medical Plan x Coding Level of Care Code Procedure Only Diagnoses Pacemaker Z95.0 AV block I44.30 CPT Codes Cardiac Device Check - Cardiac Device 12: [id number] Cardiac Device Interrogation, pacemaker ([id number])
== END ==
PROVIDERS: PCP Nurse Practitioner Primary Care; Visit Provider Internal Medicine
DX: I44.30 Unspecified atrioventricular block (principal); Z95.0 Presence of cardiac pacemaker
CPT/HCPCS: 93294

== ENCOUNTER 2024-07-16 07:52 | Outpatient (REF) | payer MEDICARE, SELFPAY ==
--- OUTSIDE RECORDS SUMMARY | 2024-07-16 07:56 | XMS_ITS | Encounter Summary ---
Author Organization [facility] Address [address] [facility] [address] [place] [address] Phone Care Team Providers Care Alarm Field Technician Name Role Phone Carmita Dietz COMMISSIONS SPECIALIST-C Primary Care Provider + Reason for Visit * Reason Comments Med Refill Encounter Details Date Type Department Care Team (Late st Contact Info) Description 02/27/2023 Refill [facility] [address] [place] [phone] Arsen Villegas MD Social History Tobacco Use [...] on filedocumented in this encounter Care Teams Alarm Field Technician Relationship Specialty Start Date End Date Carmita Dietz NP-C [address], [address] [place] [address] PCP - General Nurse Practitioner 07/18/22 documented as of this encounter
--- OUTSIDE RECORDS SUMMARY | 2024-07-16 07:56 | XMS_ITS ---
Author Organization [facility] Address [address] [place] [address] Care Team Providers Care Satellite Television Installer Name Role Phone Archie Finch MD Primary Care Provider Cash Casanova [phone] Allergies Allergen (clinical drug ingredient) Drug/Non Drug Allergy documented on EMR Reaction Allergy Type Onset Date Status angiotensin-converting enzyme inhibitor (FN) EMELIA Inhibitors Unknown Drug Allergy Acti ve REASON FOR VISIT Patient presents today for gastritis Medications Medication SIG (Take, Route, Frequency, Duration) Notes [...] Orally every 6 hrs Active Biotin Maximum 30274 MCG as directed Orally Active Cinacalcet HCl 30 MG 1 tablet with food or after a meal Orally Once a day for 30 day(s) Active Rosuvastatin Calcium 5 MG 1 tablet Orall y Once a day for 30 day(s) Active Magnesium 400 MG as directed Orally Active Vitamin B-6 Active Prebiotic Product Ac tive Vitamin B12 Active Problems Problem Type SNOMED Code ICD Code Onset Dates Problem Status W/U Status Risk Notes Problem Erosive esophagitis (18681506) Erosive esophagitis (K22.10) Active confirmed Problem Diaphragmatic hernia (56829406) Hernia, hiatal (K44.9) Active confirmed Vital Signs Blood pressure systolic 130 mm Hg 03/03/20 24 Blood pressure diastolic 74 mm Hg 024 Height 62.50 in 03/03/2024 Weight 197 lbs 03/03/2024 BMI 35.45 kg/m2 03/03/2024 Encounters Encounter Location Date Provider Diagnosis [facility] [address] [place] [address] 03/03/2024 Cash Mercado Erosive esophagitis K22.10 and Hernia, hiatal K44.9 Assessments Encounter Date Diagnosis (ICD Code) Assessment Notes Treatment Notes Treatment Clinical Notes Section Notes 03/03/2024 Erosive esophagitis (ICD-10 - K22.10) Cut down the Metamucil and/or the Magnesium to see if that cuts down the BM frequency and trouble with the stool incontinence. Overall, Luli appears well. She seems to have responded nicely to the resumption of her omeprazole. Her previous upper GI complaints seem to be much improved with that. We did review the upper endoscopy findings and I advised her to continue the omeprazole on a long-term basis. We did review that dietary discretion and eating smaller meals would also help minimize reflux symptoms. We did review the negative colonoscopy. I don't think she will need any further screening colonoscopies going forward. I did advise her to try to cut down somewhat on her Metamucil as that may be increasing her bowel movement frequency and contributing somewhat to the occasional stool incontinence. I also advised her to consider either cutting down or eliminating the Magnesium supplements as those can also occasionally cause looser BM's. If things remain stable from a GI standpoint I advised her to see me on a p.r.n. basis. I did advise her to certainly call if she has any problems or questions I can be of assistance with in the future. Luli and her were comfortable with this plan. Thank you again for allowing me to have participated in Luli's care. Please do not hesitate to contact me if I can be of any further assistance in the future. 03/03/2024 Hernia, hiatal (ICD-10 - K44.9) Overall, Luli appears well. She seems to have responded nicely to the resumption of her omeprazole. Her previous upper GI complaints seem to be much improved with that. We did review the upper endoscopy findings and I advised her to continue the omeprazole on a long-term basis. We did review that dietary discretion and eating smaller meals would also help minimize reflux symptoms. We did review the negative colonoscopy. I don't think she will need any further screening colonoscopies going forward. I did advise her to try to cut down somewhat on her Metamucil as that may be increasing her bowel movement frequency and contributing somewhat to the occasional stool incontinence. I also advised her to consider either cutting down or eliminating the Magnesium supplements as those can also occasionally cause looser BM's. If things remain stable from a GI standpoint I advised her to see me on a p.r.n. basis. I did advise her to certainly call if she has any problems or questions I can be of assistance with in the future. Luli and her were comfortable with this plan. Thank you again for allowing me to have participated in Luli's care. Please do not hesitate to contact me if I can be of any further assistance in the future. Plan Of Treatment Medication Medication Name Sig Start Date Stop Date Notes Omeprazole 40 MG 1 Orally Once a day every morning 024 Treatment Notes Assessment Notes Erosive esophagitis Cut down the Metamuc il and/or the Magnesium to see if that cuts down the BM frequency and trouble with the stool incontinence. Next Appt Details Follow Up: prn, Reason: Progress Notes * LULI DE LUNA EDOB:1945 (78 yo F)Acc No.[id number]:03/03/2024 Progress Notes Patient:?LULI DE LUNA Provider:?Cash Mercado MD :1945???Age:78 Y???Sex:Female D ate:03/03/2024 Address:[address] [place] [address], [facility] Pcp:Archie Finch MD Subjective: * Chief Complaints: * ???Patient presents today fo r gastritis * HPI: ???incontinence:? I saw Luli in followup today in regard to her previous upper GI complaints and abnormal PET-CT scan of the GI tract. She was accompanied by her . ?I last saw Luli in September at which time she underwent an upper endoscopy and colonoscopy. Her colonoscopy was normal and negative for any polyps or any other abnormalities that would have accounted for the abnormality seen on the PET-CT scan. Her upper endoscopy revealed significant esophagitis, gastritis, and her known hiatal hernia. Gastric biopsies were negative for any H. pylori. At that time she was started back on 40 mg of omeprazole daily as she was having a lot of upper GI complaints. She had not been responding to H2 blockers and sucralfate. ?Since those procedures she has been feeling well from a GI standpoint. She remains on her daily omeprazole and describes much less trouble with upper abdominal pain and reflux. She is eating comfortably and denies any dysphagia, nausea, or vomiting. She is taking a magnesium supplement with the omeprazole and reports that her magnesium levels have been stable. ?She does describe that her bowel movements are rather frequent although not particularly watery nor loose. She does describe occasional episodes of some fecal incontinence. She describes taking 1 teaspoon Metamucil 4 times a day. She also eats a healthy diet with vegetables and fruit. She denies any signs of bleeding. * ROS:?General/Constitutional:?Change in appetite?denies.?Chills?denies.?Fatigue?denies.?Ophthalmologic:?Comments?all negative.?ENT:?Comments?all negative.?Respiratory:?hemoptysis?denies.?Cough?denies.?Cardiovascular:?Chest pain?denies.?Orthopnea?denies.?Gastrointestinal:?Comments?See HPI for details.?Genitourinary:?Hematuria?denies.?Dysuria?denies.?Musculoskeletal:?Painful joints?denies.?Weakness?denies.?Skin:?Itching?denies.?Rash?denies.?Neurologic:?Headache?denies.?Seizures?denies.?Psychiatric:?Comments?all negative.? * Medical History:? * Surgical History:?Pacemaker- -replaced in 2016 AMAURY Left knee replacement 03/2011Carpal tunnel release L [employer] R CCY 3rd pacemaker replacement 12/25/2023 * Hospitalization/Major Diagno stic Procedure:?No Hospitalization History. * Family History:?Father: dece ased.?Mother: , diagnosed with HTN (hypertension).? No colorectal cancer. No family history of liver cancer. * Social History:?Tobacco Use:?Tobacco Use/Smoking?Are you a: nonsmoker.?Drugs/Alcohol:?Alcohol Screen?Points: 0, Interpretation: Negative.?Miscellaneous:?Marital status: . 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 ???Nonsmoker; no sig alcohol. * Medications:?TakingVitamin B 12 Vitamin B-6 Prebiotic Product Cinacalcet HCl 30 MG Tablet 1 tablet with food or after a meal Orally Once a dayMagnesium 400 MG Capsule as directed Orally Rosuvastatin Calcium 5 MG Tablet 1 tablet Orally Once a dayTylenol 8 Hour 650 MG Tablet Extended Release 2 tablets as needed Orally every 6 hrsBiotin Maximum 51043 MCG Tablet Disintegrating as directed Orally Spironolactone 25 MG Tablet 1/2 tablet Orally Once a dayAmlodipine & Diet Manage Prod 10-40 1 tablet Orally once a dayLevothyroxine Sodium 75 MCG Tablet 1 tablet on an empty stomach in the morning Orally Once a daymetFORMIN HCl 500 MG Tablet 1 tablet with meals Orally Twice a dayMetamucil - Packet 1 packet with 8 ounces of liquid as needed Orally 3-4 times a weekOmeprazole 40 MG Capsule Delayed Release 1 Orally Once a day every morningTaking Vitamin B12 Taking Vitamin B-6 Taking Prebiotic Product Taking Cinacalcet HCl 30 MG Tablet 1 tablet with food or after a meal Orally Once a dayTaking Magnesium 400 MG Capsule as directed Orally Taking Rosuvastatin Calcium 5 MG Tablet 1 tablet Orally Once a dayTaking Tylenol 8 Hour 650 MG Tablet Extended Release 2 tablets as needed Orally every 6 hrsTaking Biotin Maximum 67905 MCG Tablet Disintegrating as directed Orally Taking Spironolactone 25 MG Tablet 1/2 tablet Orally Once a dayTaking Amlodipine & Diet Manage Prod 10-40 1 tablet Orally once a dayTaking Levothyroxine Sodium 75 MCG Tablet 1 tablet on an empty stomach in the morning Orally Once a dayTaking metFORMIN HCl 500 MG Tablet 1 tablet with meals Orally Twice a dayTaking Metamucil - Packet 1 packet with 8 ounces of liquid as needed Orally 3-4 times a weekTaking Omeprazole 40 MG Capsule Delayed Release 1 Orally Once a day every morningDiscontinuedPepcid 20 MG Tablet 1 tablet at bedtime as needed Orally Once a daySucralfate 1 GM Tablet 1 tablet on an empty stomach Orally Twice a dayVitamin D3 2000 UNIT Capsule 1 tablet Orally twice a dayAspir-81 81 MG Tablet Delayed Release 1 tablet Orally Once a dayMedication List reviewed and reconciled with the patientDiscontinued Pepcid 20 MG Tablet 1 tablet at bedtime as needed Orally Once a dayDiscontinued Sucralfate 1 GM Tablet 1 tablet on an empty stomach Orally Twice a dayDiscontinued Vitamin D3 2000 UNIT Capsule 1 tablet Orally twice a dayDiscontinued Aspir-81 81 MG Tablet Delayed Release 1 tablet Orally Once a dayMedication List reviewed and reconciled with the patient * Allergies:?EMELIA Inhibitorsyes [Allergies Verified] Objective: * Vitals:?Wt: 197 lbs, Ht: 62. 50 in, BMI:35.45 Index, BP: 130/74 mm Hg. * Examination: ???General Examination: ?GENERAL APPEARANCE:?pleasant, well nourished, well developed, in no acute distress.?EYES:?sclera non-icteric.?ORAL CAVITY:?mucosa moist.?NECK/THYROID:?no cervical lymphadenopathy, neck supple.?SKIN:?nonjaundiced, no spider angiomata.?HEART:?S1, S2 normal.?LUNGS:?clear to auscultation bilaterally.?ABDOMEN:?normal bowel sounds, no guarding or rigidity, no guarding or rigidity, no masses palpable, soft, nontender, nondistended.?EXTREMITIES:?no edema.?NEUROLOGIC:?alert and oriented.? Assessment: * Assessment: 1.?Erosive esophagitis - K22 .10 (Primary)?2.?Hernia, hiatal - K44.9? Overall, Luli appears well. S he seems to have responded nicely to the resumption of her omeprazole. Her previous upper GI complaints seem to be much improved with that. We did review the upper endoscopy findings and I advised her to continue the omeprazole on a long-term basis. We did review that dietary discretion and eating smaller meals would also help minimize reflux symptoms. We did review the negative colonoscopy. I don't think she will need any further screening colonoscopies going forward. I did advise her to try to cut down somewhat on her Metamucil as that may be increasing her bowel movement frequency and contributing somewhat to the occasional stool incontinence. I also advised her to consider either cutting down or eliminating the Magnesium supplements as those can also occasionally cause looser BM's. If things remain stable from a GI standpoint I advised her to see me on a p.r.n. basis. I did advise her to certainly call if she has any problems or questions I can be of assistance with in the future. Luli and her were comfortable with this plan. Thank you again for allowing me to have participated in Luli's care. Please do not hesitate to contact me if I can be of any further assistance in the future. Plan: * Treatment: 2.?Others? Continue Omeprazole Capsule Delayed Release, 40 MG, 1, Orally, Once a day every morning.?? * Procedure Codes:?1036F TOBAC CO NON-KFODC6444 BP SCR NOT PRFRM REC REASON NOS * Preventive Medicine:? ??Counseling:?Care goal follow-up plan:?Above Normal BMI Follow-up?Giving encouragement to exercise,?BMI management provided?Yes.? ??Urinary Incontinence:?Urinary Incontinence?Assessment:?Present,?Plan of care documented:?Yes,?Type of plan of care:?Lifestyle interventions.? ??Screenings:?Fall Risk Screening?Fall Risk Assessment:?No falls in the past year,?Screening:?No falls in the past year,?Assessment:?Not performed, no reason specified,?Plan of Care:?Not documented, no reason specified.? * Follow Up:?prn * * Sign off status: Completed true * Provider:?Cash Mercado MD Date:? 024 Generated for Aishai dejon/Opal/eTransmitting on:?07/16/2024 07:56 AM EST History and Physical Notes * HPI (History of Present Illness) Category Sub-Category Detail Notes Category Not es incontinence I saw Luli in followup today in regard to her previous upper GI complaints and abnormal PET-CT scan of the GI tract. She was accompanied by her . I last saw Luli in September at which time she underwent an upper endoscopy and colonoscopy. Her colonoscopy was normal and negative for any polyps or any other abnormalities that would have accounted for the abnormality seen on the PET-CT scan. Her upper endoscopy revealed significant esophagitis, gastritis, and her known hiatal hernia. Gastric biopsies were negative for any H. pylori. At that time she was started back on 40 mg of omeprazole daily as she was having a lot of upper GI complaints. She had not been responding to H2 blockers and sucralfate. Since those procedures she has been feeling well from a GI standpoint. She remains on her daily omeprazole and describes much less trouble with upper abdominal pain and reflux. She is eating comfortably and denies any dysphagia, nausea, or vomiting. She is taking a magnesium supplement with the omeprazole and reports that her magnesium levels have been stable. She does describe that her bowel movements are rather frequent although not particularly watery nor loose. She does describe occasional episodes of some fecal incontinence. She describes taking 1 teaspoon Metamucil 4 times a day. She also eats a healthy diet with vegetables and fruit. She denies any signs of bleeding. Examination Category Sub-Category Detail Notes Category Not es General Examination GENERAL APPEARANCE: pleasant , well [...]
--- OUTSIDE RECORDS SUMMARY | 2024-07-16 07:56 | XMS_ITS | Clinical Summary ---
Author Organization [facility] ity Address [address] [place] [address] Care Team Providers Care Bordereau Clerk Name Role Phone Unavailable Primary Care Provider [...] DTaP,Tdap,and Td Vaccines (1 - Tdap) 12/07/1962 Pneumococcal Vaccine: 50+ Ye ars (1 of 1 - PCV) 12/07/1993 Zoster Vaccines (1 of 2) 12/07/1993 RSV Immunization Patients 60 + Years Old (1 - 1-dose 75+ series) 12/07/2018 Depression Screening 12/10/2023 Falls Risk Assessment 12/10/2023 Osteoporosis Screening (Bone Density Screening) 12/10/2023 Social Influencers of Health Screening 12/10/2023 COVID-19 Vaccine (1 - 2023-2 5 season) 2024 Influenza Vaccine [...] patient's age to complete this topic Meningococcal B Vacine Aged Out No lo nger eligible based on patient's age to complete this topic RSV Immunization Patients Un ebonie 20 months Aged Out No longer eligible b ased on patient's age to complete this topic Varicella Vaccines Aged Out No longer eligible based on patient's age to complete this topic
--- OUTSIDE RECORDS SUMMARY | 2024-07-16 07:56 | XMS_ITS ---
Author Organization [facility] Address [address] [place] [address] Care Team Providers Care Diamond Broker Name Role Phone Archie Finch MD Primary Care Provider Cash Casanova [phone] Encounters Encounter Location Date Provider Diagnosis [facility] [address] [place] [address] 03/15/2024 Cash Mercado Plan Of Treatment No Information Progress Notes * LULI DE LUNA EDOB:1945 (78 yo F)Acc No.[id number]:03/15/2024 Patient:?LULI DE LUNA :1945???Age:78 Y???Sex:Female Address:[address] [place] [address] * true * Date:? Generated for Nehemiah ashford/Opal/eTransmitting on:?07/16/2024 07:56 AM EST
--- OUTSIDE RECORDS SUMMARY | 2024-07-16 07:57 | XMS_ITS | Data Portability ---
Author Organization [place] [facility] Address [address] [address] Care Team Providers Care Supervisor Ornamental Ironworking Name Role Phone JACOBO ABAD Primary Care [...] 2 % topical ointment [address] [id number], [address] [facility], [place], [address], 5 11:51:39 Patient TargetsNo targets recorded. Patient InstructionsNo instructions recorded. Reason for Referral None Reported. Problems Name Problem SNOMED Code Status Onset Date Resolution Date Notes Provider Name and Address Organization Details Recorded Time Chronic sphenoid al sinusiti s 96231536 Completed 201712/13/2023 Chronic sphenoid al sinusiti s; Note: Date Diagnose d: 04/28/20 8:26 PM (J32.3) Chroni c sphenoid al sinusiti s; Note: Date Diagnose d: 8 11:01 AM (J32.3) ; Start Date : 02/11/20 Not Available Counts include 234 beds at the [facility] 4 03:07:58 Follow-u p visit Active 2017 Encounte r for follow-u p examinat ion after complete d treatmen t for conditio ns other than malignan t neoplasm ; Note: Date Diagnose d: 04/21/20 2:55 PM (Z09) Not Available Counts include 234 beds at the [facility] 4 03:08:00 Ulcerati ve rhinitis 43679670 Active 2019 Nasal mucositi s (ulcerat adriana); Note: Date Diagnose d: 0 1:36 PM (J34.81) Not Available Counts include 234 beds at the [facility] 4 03:08:00 Migraine 38496370 Active 2017 Other migraine , not intracta ble, without status migraino kervin; Note: Date Diagnose d: 8 10:47 AM (G43.809 ) Not Available Counts include 234 beds at the [facility] 4 03:07:58 Headache 65316936 Active 2019 Facial pain NOS; Note: Date Diagnose d: 02/25/20 1:22 PM (R51) Facial pain NOS; Note: Date Diagnose d: 8 10:47 AM (R51) ; Start Date : 02/11/20 Not Available Counts include 234 beds at the [facility] 4 03:07:59 Angioede ma 32827356 Active 2023 Angioneu rotic edema, initial encounte r; Note: Date Diagnose d: 4 9:06 AM (T78.3XX A) Not Available [facility] 4 03:08:00 Gastroes ophageal reflux disease 206294447 Active 2024 SANDIE WILLIAM MD [address] [facility],RAJINDER [facility], [place], [address] , [facility] 5 08:18:24 Obstruct adriana sleep apnea syndrome 52964758 Active 2024 SANDIE WILLIAM MD [address] [facility],[place] [address], [place], [address] , [facility] 5 08:18:33 Problem Notes None recorded. Procedures Surgical History Date Name Laterality Status Provider Name and Address Organization Details Recorded Time 06/12/19 Fiberoptic Laryngoscopy (Comprehensive) completed SANDIE WILLIAM MD [address] [facility],[place] [address], [place], [address], [facility] 06/13/2024 08:17:40 Imaging Results None recorded. [...] layed release 06/12 completed Medicati on ID: [id number] D uration Value: 90 Brand Name: pantopra zole Sen d Method: E-Prescr ibed Sub s Allowed: subs OK Speci al Instruct ion: TAKE 1 TABLET BY ORAL ROUTE DAILY Me dication GenericN radha: pantopra zole Not Available Not Available Not Available pravastat in 20 mg tablet 2017 active Medicati on ID: [id number] D uration Value: 90 Brand Name: pravasta [...] by mouth 06/12 completed Medicati on ID: [id number] D uration Value: 7 Prescri bed By Name: Sandie weiss MD Brand Name: cefuroxi me axetil S end Method: E-Prescr ibed Sub s Allowed: subs OK Medic ationGen ericName : cefuroxi me axetil Not Available Not Available Not Available amoxicill in 875 mg-potass ium clavulana te 125 mg tablet 05/09 completed Medicati on ID: [id number] D uration Value: 10 Reason: () Brand [...] Available Advil 04/21 completed Medicati on ID: [id number] R sergio: () Brand Name: advil Se nd Method: E-Prescr ibed Sub s Allowed: subs OK Medic ationGen ericName : advil Not Available Not Available Not Available Tylenol 06/12 completed Medicati on ID: [id number] B rand Name: tylenol Send Method: E-Prescr ibed Sub s Allowed: subs OK Medic ationGen ericName : tylenol Not Available Not Available Not Available amlodipin e 10 mg-benaze pril 40 mg capsule 06/12 completed Medicati on ID: [id number] D uration Value: 90 Brand Name: amlodipi [...] Updated DateTime 06/12/2024 157.48 cm 36.6 kg/m2 96117.47 g Georgette Lynn [place] - [facility] 06/12/2024 11:32:13 Social History None recorded. [...] SNOMED-CT Code Diagnosis ICD10 Code Diagnosis Note [id number] SANDIE WILLIAM MD [facility] [address] [place] [address] 06/12/2024 11:19:33 06/12/2024 11:55:40 Ulcerative rhinitis 30815252 J34.81 Gastroesop hageal reflux disease 948051433 K21.00 Obstructiv e sleep apnea syndrome 32430214 G47.33 Health Concerns Section Related Observation LastModified by Organization Detai ls LastModified Time None Recorded Concern Status LastModified by Organization Details LastModified Time None Recorded Advance Directives Directive None Recorded Payers Encounter Date Sequence Insurance Name Policy Number Policy Lara Covered Member ID Lara Member ID Guarantor Name 06/12/2024 1 [facility] (MEDICARE REPLACEMENT/ ADVANTAGE - PPO) [id number] 1 Annetta Strickland [id number] Annetta Strickland Notes Date Note Type Note Provider Name and Address Organization Details Recorded Time 06/12/2024 text/html 78 yo F presents for evaluation of her throatangioedema last year [facility] [place] new FAINA CPAP, right side of nose gets crusting, uses AYR saline and gel esophagitis and gastritis in September, on omeprazole gets scratchy, this week is a little better SANDIE WILLIAM MD [address] [place] [address], [address], [place] - [facility] 06/13/2024 08:20:50 OBGyn Episode No OBEpisode recorded.
--- OUTSIDE RECORDS SUMMARY | 2024-07-16 07:57 | XMS_ITS ---
Author Organization [facility] Address [address] [place] [address] Care Team Providers Care Hvac Sheet Metal Installer Name Role Phone Archie Finch MD Primary Care Provider Cash Casanova [phone] REASON FOR VISIT out of omeprazole requesting r/f Encounters Encounter Location Date Provider Diagnosis [facility] [address] [place] [address] 03/26/2024 Cash Mercado Plan Of Treatment No Information Progress Notes * LULI DE LUNA EDOB:1945 (78 yo F)Acc No.[id number]:03/26/2024 Patient:?LULI DE LUNA :1945???Age:78 Y???Sex:Female Address:[address] [place] [address], [place] [address] * true * Date:? Generated for Aishai dejon/Opal/eTransmitting on:?07/16/2024 07:56 AM EST
--- OUTSIDE RECORDS SUMMARY | 2024-07-16 07:57 | XMS_ITS | Clinical Summary ---
Author Organization [facility] Facility Address [address] [place] [address], [place] [address] Care Team Providers Care Slag Dumper Name Role Phone Carmita Dietz BEATER OUT LEVELING MACHINE-C Primary Care Provider + Allergies No known [...] 1 (one) time each day Active Biotin 12236 MCG tablet dispersible Take by mouth Active [...] patient's age to complete this topic Insurance [place] [address] [facility] Care Teams Slag Dumper Relationship Specialty Start Date End Date Carmita Dietz NP-C [address], [address] [place] [address] PCP - General Nurse Practitioner 07/18/22
--- OUTSIDE RECORDS SUMMARY | 2024-07-16 07:57 | XMS_ITS | Patient Health Record ---
Author Organization [facility] Address [address] [place] [address] Care Team Providers Care Brand Specialist Name Role Phone Archie Finch MD Primary Care Provider Cash Casanova Unavailable [phone] Allergies Allergen (clinical drug ingredient) Drug/Non Drug Allergy documented on EMR Reaction Allergy Type Onset Date Status angiotensin-converting enzyme inhibitor (FN) EMELIA Inhibitors Unknown Drug Allergy Acti ve Results Component Value Reference Range Notes Glucose, Whole Blood Reviewed date:10/03/2023 09:15:19 AM Interpretation: Performing Lab:[facility], [address] [place] [phone] Notes/Report: Glucose, Whole Blood 128 60-115 mg/dL METER # : [id number] Pathology Reviewed date:10/19/2023 09:51:24 PM Interpretation: Performing Lab:[facility], [address] [place] [phone] Notes/Report: ---- Name: Ellis Fishman Age/Sex: 77/F : 1945 Unit#: [id number] Attend Dr: Cash Mercado Re10/03/23 Status : DEP [facility] [place] Location: HO.SSS Disch: ---- SPEC : [id number] RECD : 10/03/23 STATUS: GEOVANNA FERNANDEZ NUM: [id number] JOSE A: 10/03/[address] [facility] [address]: Cash Mercado ENTERED: 10/03/23-01 29 SP TYPE: Surgical OTHR DR: Carmita Dietz FIREARMS SPECIALIST ORDERED: HE Stain/3, Gross Micro L4, IHC, Special st. 2, H. pylori, AB/PAS Diagnosis Gastric antrum, biop sy: Gastric antral mucosa with reactive changes, focal intestinal metaplasia, and mini mal chronic inactive gastritis; negative for H. pylori and dysplasia. Clinical History Pre-Op Dx: Abnormal CT, epigastric pain Post-Op Dx: Esophagi tis, gastritis, hiatal hernia Microscopic Description Microscopic sections reviewed. Immunostain for H. pylori is negative. AB/PAS is positive for intestinal metaplasia. Controls stain appropriately. Material Received Gastric antrum Gross Description Received in formalin labeled ?gastric antrum? are 3 [place] rectangular tissue fragments each measuring 0.45 cm, submitted in toto in a cassette labeled A. CEDS Special studies orde red and performed: Immunostain for H. pylori on A1; AB/PAS stains on A1. Copies To: Carmita Dietz FIREARMS SPECIALIST [address] [facility] [address] [place] [address] Cash Mercado [address] [place] [address] [id number] [place] [address] ---- Signed (signature on file) Mellissa Anjelica 10/08/23 1411 ---- END OF REPORT MAMMOGRAM DIGITAL BILATERAL SCREEN Reviewed date:03/03/2024 02:55:11 PM Interpretation:Normal Performing Lab: Notes/Report: Normal Reason For Referral No Information Medications Medication SIG (Take, Route, Frequency, Duration) [...] Orally every 6 hrs Active Biotin Maximum 74678 MCG as directed Orally Active Rosuvastatin Calcium 5 MG 1 tablet Orall y Once a day for 30 day(s) Active Omeprazole 40 MG 1 Orally Once a day every morning for 90 days Active Magnesium 400 MG as directed Orally Active Immunizations Vaccine Route Administration Date Status Comme nts Influenza Unknown 02/11/2016 Administered Influenza Unknown 02/27/2022 Administered Influenza Unknown 03/05/2023 Administered Pneumococcal Unknown 04/12/2022 Administered Problems Problem Type SNOMED Code ICD Code Onset Dates Problem Status W/U Status Risk Notes Problem Epigastric pain (10748615) Epigastric pain (R10.13) Active confirmed Problem 161914380 Encounter for screening for malignant neoplasm of colon (Z12.11) Active confirmed Problem 034551596 History of adenomatous polyp of colon (Z86.010) Active confirmed Problem Ulcer of esophagus (52457817) Ulcer of esophagus without bleeding (K22.10) Active confirmed Problem Diverticular disease of colon (836137491) Diverticulosis of large intestine without perforation or abscess without bleeding (K57.30) Active confirmed Problem 547387292 Gastroesophageal reflux disease without esophagitis (K21.9) Active confirmed Problem Hiatal hernia (40043092) Hiatal hernia (K44.9) Active confirmed Problem Chronic gastritis (8597740) Gastritis, chronic (K29.50) Active confirmed Problem Computed tomography result abnormal (311982388) Abnormal CT scan, colon (R93.3) Active confirmed Problem Erosive esophagitis (64654947) Erosive esophagitis (K22.10) Active confirmed Problem 179833211 Irregular bowel habits (R19.8) Active confirmed Problem 58022560 Incontinence of feces, unspecified fecal incontinence type (R15.9) Active confirmed Problem Diaphragmatic hernia (24514860) Hernia, hiatal (K44.9) Active confirmed Problem Gastroesophageal reflux disease (230547813) Chronic GERD (K21.9) Active confirmed Vital Signs Temperature 96.9 degrees Fahrenheit 09/18/2023 Blood pressure diastolic 74 mm Hg 03/03/2024 Height 62.50 in 03/03/2024 Blood pressure systolic 130 mm Hg 03/03/2024 Weight 197 lbs 03/03/2024 BMI 35.45 kg/m2 03/03/2024 Encounters Encounter Location Date Provider Diagnosis [facility] [address] [place] [id number] 10/03/[address] scan, co karena R93.3 ; Diverticulosis of large intestine without perforation or abscess without bleeding K57.30 ; Other hemorrhoids K64.8 ; Ulcer of esophagus without bleeding K22.10 ; Hiatal hernia K44.9 ; Gastritis, chronic K29.50 ; Hematemesis K92.0 and Abdominal pain R10.9 [facility] [address] [place] [phone] 09/18/[address] scan, co karena R93.3 ; Chronic GERD K21.9 ; Epigastric pain R10.13 and Hiatal hernia K44.9 [facility] [address] [place] [address], [place] [address] 03/03/2024 Cash Mercado Erosive esophagitis K22.10 and Hernia, hiatal K44.9 [facility] [address] [place] [address] 09/22/2023 Cash Mercado [facility] [address] [place] [address] 10/03/2023 Cash Mercado [facility] [address] [place] [address] 03/15/2024 Cash Mercado [facility] [address] [place] [address] 03/26/2024 Cash Mercado Assessments Encounter Date Diagnosis (ICD Code) Assessment Notes Treatment Notes Treatment Clinical Notes Section Notes 10/03/2023 Diverticulosis of large intestine without [...] the Sucralfate the night before the procedures Overall, Luli appears well. In regard to the abnormal PET-CT scan involving the rectum, I did recommend she undergo a colonoscopy for definitive evaluation so as to rule out any type of neoplastic lesion given that her last colonoscopy was back in 2017. I also recommended she undergo an upper endoscopy for evaluation of the upper abdominal discomfort. We did review her known hiatal hernia, but I advised her that it would be important to exclude any type of peptic ulcer disease or significant gastritis that might be contributing to her symptoms and indicate the need to get her back on a PPI rather than her current regimen of sucralfate and famotidine. I doubt the PPI was the cause of her low magnesium level as she has been on a PPI for many, many years. Full consent was obtained from her for both procedures, including risks of bleeding and perforation. The procedure will be done with monitored anesthesia care. She was given the below instructions regarding adjustment of her medications for the procedures. She is going away to [place] next week and the procedures will be performed later in September after she returns. Luli and her were comfortable with this plan. Thank you again for allowing me to participate in Luli's care. I shall continue to keep you advised of her progress. 09/18/2023 Chronic GERD (ICD-10 - K21.9) Overall, Luli appears well. In regard to the abnormal PET-CT scan involving the rectum, I did recommend she undergo a colonoscopy for definitive evaluation so as to rule out any type of neoplastic lesion given that her last colonoscopy was back in 2017. I also recommended she undergo an upper endoscopy for evaluation of the upper abdominal discomfort. We did review her known hiatal hernia, but I advised her that it would be important to exclude any type of peptic ulcer disease or significant gastritis that might be contributing to her symptoms and indicate the need to get her back on a PPI rather than her current regimen of sucralfate and famotidine. I doubt the PPI was the cause of her low magnesium level as she has been on a PPI for many, many years. Full consent was obtained from her for both procedures, including risks of bleeding and perforation. The procedure will be done with monitored anesthesia care. She was given the below instructions regarding adjustment of her medications for the procedures. She is going away to [place] next week and the procedures will be performed later in September after she returns. Luli and her were comfortable with this plan. Thank you again for allowing me to participate in Luli's care. I shall continue to keep you advised of her progress. 03/03/2024 Erosive esophagitis (ICD-10 - K22.10) Cut [...] for allowing me to have participated in Eduins care. Please do not hesitate to contact [...] for allowing me to have participated in Eduins care. Please do not hesitate to contact me if I can be of any further assistance in the future. 10/03/2023 Other hemorrhoids (ICD-10 - K64.8) 09/18/2023 Epigastric pain (ICD-10 - R10.13) Overall, Luli appears well. In regard to the abnormal PET-CT scan involving the rectum, I did recommend she undergo a colonoscopy for definitive evaluation so as to rule out any type of neoplastic lesion given that her last colonoscopy was back in 2017. I also recommended she undergo an upper endoscopy for evaluation of the upper abdominal discomfort. We did review her known hiatal hernia, but I advised her that it would be important to exclude any type of peptic ulcer disease or significant gastritis that might be contributing to her symptoms and indicate the need to get her back on a PPI rather than her current regimen of sucralfate and famotidine. I doubt the PPI was the cause of her low magnesium level as she has been on a PPI for many, many years. Full consent was obtained from her for both procedures, including risks of bleeding and perforation. The procedure will be done with monitored anesthesia care. She was given the below instructions regarding adjustment of her medications for the procedures. She is going away to [place] next week and the procedures will be performed later in September after she returns. Luli and her were comfortable with this plan. Thank you again for allowing me to participate in Luli's care. I shall continue to keep you advised of her progress. 10/03/2023 Ulcer of esophagus without bleeding (ICD-10 - K22.10) 09/18/2023 Hiatal hernia (ICD-10 - K44.9) Overall, Luli appears well. In regard to the abnormal PET-CT scan involving the rectum, I did recommend she undergo a colonoscopy for definitive evaluation so as to rule out any type of neoplastic lesion given that her last colonoscopy was back in 2016. I also recommended she undergo an upper endoscopy for evaluation of the upper abdominal discomfort. We did review her known hiatal hernia, but I advised her that it would be important to exclude any type of peptic ulcer disease or significant gastritis that might be contributing to her symptoms and indicate the need to get her back on a PPI rather than her current regimen of sucralfate and famotidine. I doubt the PPI was the cause of her low magnesium level as she has been on a PPI for many, many years. Full consent was obtained from her for both procedures, including risks of bleeding and perforation. The procedure will be done with monitored anesthesia care. She was given the below instructions regarding adjustment of her medications for the procedures. She is going away to [place] next week and the procedures will be performed later in September after she returns. Luli and her were comfortable with this plan. Thank you again for allowing me to participate in Luli's care. I shall continue to keep you advised of her progress. 10/03/2023 Hiatal hernia (ICD-10 - K44.9) 10/03/2023 Gastritis, chronic (ICD-10 - K29.50) 10/03/2023 Hematemesis (ICD-10 - K92.0) 10/03/2023 Abdominal pain (ICD-10 - R10.9) Plan Of Treatment Future Test Test Name Order Date COLONOSCOPY 02/14/2011 COLONOSCOPY 10/31/2016 UPPER GI ENDOSCOPY 09/18/2023 COLONOSCOPY 09/18/2023 Insurance Providers Payer Name Payer Address Payer Phone Subscriber Number Group Number Insured Name Patient Relationship to Insured Coverage Start Date Coverage End Date [facility] [address] [place] [id number] [phone] [id number] LULI FISHMAN Self - patient is the insured Medical (General) History Medical History History ICD Code NIDDM Hyperlipidemia Hypertension Pacemaker Arthritis Denies MA,CVA,Lung disease,renal disease Urinary incontinence-mild Hypothyroidism Tubular adenomas removed in 1999--- she had negative colonoscopies in 2005 and 2010 other than some diverticulosis and small internal hemorrhoids; negative colonoscopy in 2016 GERD--upper endoscopy in revealed a small to moderate-sized hiatal hernia, [...]
[2024-07-16 08:16] LABS: MANUAL DIFF FLAG NO
[2024-07-16 08:43] LABS: Basophils Absolute Auto 0.1 X10*3/uL (0.0-0.2); Basophils Percent Auto 0.9 % (0-2); Eosinophils Absolute Auto 0.4 X10*3/uL (0.0-0.4); Eosinophils Percent Auto 5.1 % (0-4); Hematocrit 34.2 % (37.0-47.0); Imm Gran Abs Auto 0.03 X10*3/uL (0.00-0.03); Imm Gran Pct Auto 0.4 % (0.0-0.4); Lymphocytes Absolute Auto 1.8 X10*3/uL (1.2-4.9); Lymphocytes Percent Auto 24.1 % (20-40); Mean Corpuscular HGB Conc 32.2 g/dl (31.0-35.0); Mean Corpuscular Hemoglobin 27.8 pg (27.0-33.0); Mean Corpuscular Volume 86.4 fL (80.0-98.0); Mean Platelet Volume 9.9 fL (9.4-12.3); Monocytes Absolute Auto 0.6 X10*3/uL (0.1-1.2); Monocytes Percent Auto 8.2 % (2-11); Neutrophils Absolute Auto 4.6 x10*3/uL (2.0-8.3); Neutrophils Percent Auto 61.3 % (45-73); Platelet Count 250 X10*3/uL (160-400); Red Blood Count 3.96 X10*6/uL (4.20-5.50); Red Cell Distribution Width 14.3 % (11.0-16.0); White Blood Count 7.6 X10*3/uL (4.8-10.8)
[2024-07-16 08:50] LABS: Estimated Average Glucose 126 mg/dL
[2024-07-16 09:48] LABS: Alanine Aminotransferase 14 U/L (0-31); Anion Gap 11 (12-20); Aspartate Amino Transferase 27 U/L (5-31); Blood Urea Nitrogen 16 mg/dL (9-16); Calcium 10.5 mg/dL (8.4-10.2); Carbon Dioxide 26 mmol/L (22-29); Chloride 106 mmol/L (96-108); Cholesterol 150 mg/dL (<200); Estimated Glomerular Filt Rate 42; Glucose Random 112 mg/dL (60-115); HDL Cholesterol 40 mg/dL (>40); LDL Cholesterol Calculated 68 mg/dL (<100); Potassium 4.2 mmol/L (3.3-5.1); Sodium 139 mmol/L (135-145); Thyroid Stimulating Hormone 0.75 uIU/mL (0.32-4.0); Triglycerides 212 mg/dL (<150); Vitamin D 25-OH Total 30.9 ng/mL (>30)
[2024-07-16 09:57] LABS: Folate 5.1 ng/mL (> or = 4.0); Vitamin B12 1111 pg/mL (200-900)
[2024-07-16 10:07] LABS: Uric Acid 6.9 mg/dL (2.4-5.7)
[2024-07-16 10:14] LABS: Magnesium 1.4 mg/dL (1.6-2.6)
[2024-07-21 15:03] LABS: Vitamin B6 65.7 ng/mL (2.1-21.7)
== END 2024-07-16 07:53 | disposition home or self-care (01) ==
LOC: HO.LAB 07:52
PROVIDERS: PCP Nurse Practitioner Primary Care; Visit Provider Nurse Practitioner Primary Care
DX: Z13.89 Encounter for screening for other disorder (principal)
CPT/HCPCS: 36415; 80048; 80061; 82306; 82607; 82746; 83036; 83735; 84207; 84443; 84450; 84460; 84550; 85025

== ENCOUNTER 2024-07-16 16:33 | Emergency (ER) | payer MEDICARE, SELFPAY ==
[2024-07-16 16:50] VITALS: BP 132/72; PULSE 107; RESP 18; TEMP 37; O2SAT 97; BMI 36.5
--- NOTE | 2024-07-16 17:05 | ED.RECABL ---
HPI - Recheck/Abnormal Lab/Rx General Chief Complaint: Recheck/Abnormal Lab/Rx Stated Complaint: abnormal labs Related Data Home Medications ?Medication ?Instructions ?Recorded ?Confirmed metformin 500 mg tablet 500 mg PO DAILY@1700 05/03/21 05/18/24 rosuvastatin 5 mg tablet 5 mg PO DAILY 07/16/23 05/18/24 amlodipine 10 mg tablet 10 mg PO DAILY 08/08/23 05/18/24 biotin 5 mg tablet 5 mg PO DAILY 08/08/23 05/18/24 cyanocobalamin (vitamin B-12) 1,000 mcg PO DAILY 08/08/23 05/18/24 1,000 mcg tablet (Vitamin B-12) levothyroxine 75 mcg tablet 75 mcg PO DAILY@0600 08/08/23 05/18/24 nystatin 100,000 unit/gram topical 1 appl topical BID PRN Rash 08/08/23 05/18/24 powder (Nystop) spironolactone 25 mg tablet 12.5 mg PO DAILY 09/23/23 05/18/24 omeprazole 40 mg capsule,delayed 40 mg PO DAILY 11/06/23 05/18/24 release acetaminophen 500 mg tablet 500 mg PO Q6H Pain 01/07/24 05/18/24 (Tylenol Extra Strength) psyllium husk 3.4 gram/5.4 gram 3 tbsp PO DAILY 01/07/24 05/18/24 oral powder (Metamucil) magnesium oxide 500 mg PO BID 05/18/24 05/18/24 prednisone 20 mg tablet 40 mg PO PRN 05/18/24 05/18/24 Previous Rx's ?Medication ?Instructions ?Recorded cinacalcet 30 mg tablet 30 mg PO BID #90 tabs 04/27/24 Allergies Allergy/AdvReac Type Severity Reaction Status Date / Time EMELIA Inhibitors AdvReac Severe Angioedema Verified 07/16/24 16:53 [facility] Past Medical History Medical History Pacemaker at end of battery life Elevated lipase 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 Maternal Grandmother Breast cancer Social History Social History Household Members: Spouse Housing: House Do you presently have visiting nurse or other home services: No Alcohol intake: current Alcohol intake frequency: holidays/special occasions only Patient Tobacco Use Status: Never used Tobacco Advance Directives: Yes Advance Directives on File: Yes Advance Directives Date on File: 08/13/23 service: No Physical Exam Vital Signs: Vital Signs: Last Vital Signs Temp 98.6 F 07/16/24 16:50 Pulse 107 H 07/16/24 16:50 Resp 18 07/16/24 16:50 BP 132/72 07/16/24 16:50 Pulse Ox 97 07/16/24 16:50 O2 Del Method Room Air 07/16/24 16:50 BMI result Body Mass Index 36.5 Course Course Course Narrative: This is an RME: Additional HPI, ROS, PE not included below will be deferred to primary provider. RME assessment and note performed by: Sarah Carolina PA-C This is a 78-year-old female who presents emergency department for hypo magnesium hernia. Patient had lab work done this morning and her magnesium was 1.4. She has a known history of hypo magnesium, states that about 1 year ago she had problems with low magnesium. 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 Patient is already being followed by Endocrine. She was called and was told to report to the emergency room for an IV infusion for magnesium Plan: Labs, further ER eval needed Reevaluation(s) Reevaluation #1: Patient left without completing treatment. Medical Decision Making Lab Data 07/16/24 17:19 07/16/24 17:19 Labs: Lab Results 07/16/24 Range/Units 17:19 WBC 8.7 (4.8-10.8) X10*3/uL RBC 4.10 L (4.20-5.50) X10*6/uL Hgb 11.2 L (12.0-16.0) g/dl Hct 35.1 L (37.0-47.0) % MCV 85.6 (80.0-98.0) fL MCH 27.3 (27.0-33.0) pg MCHC 31.9 (31.0-35.0) g/dl RDW 14.4 (11.0-16.0) % Plt Count 272 (160-400) X10*3/uL MPV 9.7 (9.4-12.3) fL Immature Gran % (Auto) 0.3 (0.0-0.4) % Neut % (Auto) 55.0 (45-73) % Lymph % (Auto) 29.1 (20-40) % [place] % (Auto) 10.3 (2-11) % Eos % (Auto) 4.5 H (0-4) % Baso % (Auto) 0.8 (0-2) % Lymph # (Auto) 2.5 (1.2-4.9) X10*3/uL [place] # (Auto) 0.9 (0.1-1.2) X10*3/uL Eos # (Auto) 0.4 (0.0-0.4) X10*3/uL Baso # (Auto) 0.1 (0.0-0.2) X10*3/uL Abs Immat Gran (auto) 0.03 (0.00-0.03) X10*3/uL Absolute Neuts (auto) 4.8 (2.0-8.3) x10*3/uL Absolute Nucleated RBC 0.000 (0.0-0.012) X10*3/uL Nucleated RBC % (auto) 0.0 (0.0-0.2) /100WBC Sodium 141 (135-145) mmol/L Potassium 4.1 (3.3-5.1) mmol/L Chloride 108 (96-108) mmol/L Carbon Dioxide 24 (22-29) mmol/L Anion Gap 13 (12-20) BUN 17 H (9-16) mg/dL Creatinine 1.27 (0.5-1.4) mg/dL Estim Creat Clear Calc 37.0 Estimated GFR 40 Random Glucose 126 H (60-115) mg/dL Calcium 10.2 (8.4-10.2) mg/dL Magnesium 1.5 L (1.6-2.6) mg/dL Total Bilirubin 0.2 (0.0-1.0) mg/dL Direct Bilirubin < 0.2 (0.0-0.5) mg/dL AST 26 (5-31) U/L ALT 14 (0-31) U/L Alkaline Phosphatase 80 (39-117) U/L Total Protein 7.7 (6.5-8.0) g/dL Albumin 4.2 (3.5-5.0) g/dL Discharge Plan Discharge Clinical Impression: Hypomagnesemia Patient Disposition: Left W/O Completing Treatment Prescriptions: No Action cinacalcet 30 mg tablet 30 mg PO BID Qty: 90 0RF levothyroxine 75 mcg tablet 75 mcg PO DAILY@0600 amlodipine 10 mg tablet 10 mg PO DAILY nystatin [Nystop] 100,000 unit/gram powder 1 appl TOPICAL BID PRN (Reason: Rash) cyanocobalamin (vitamin B-12) [Vitamin B-12] 1,000 mcg Tablet 1,000 mcg PO DAILY biotin 5 mg Tablet 5 mg PO DAILY spironolactone 25 mg tablet 12.5 mg PO DAILY metformin 500 mg tablet 500 mg PO DAILY@1700 acetaminophen [Tylenol Extra Strength] 500 mg tablet 500 mg PO Q6H rosuvastatin 5 mg tablet 5 mg PO DAILY omeprazole 40 mg capsule,delayed release(DR/EC) 40 mg PO DAILY prednisone 20 mg tablet 40 mg PO PRN Rx Instructions: 40 mg for 4 days, then 20mg for 4 days. Metamucil 3.4 gram/5.4 gram powder 3 tbsp PO DAILY Rx Instructions: mix into at least 8 oz of water or juice before administering magnesium oxide 250 mg magnesium tablet 500 mg PO BID Discharge Date/Time: 07/16/24 20:26
[2024-07-16 17:39] LABS: MANUAL DIFF FLAG NO
[2024-07-16 17:42] LABS: Basophils Absolute Auto 0.1 X10*3/uL (0.0-0.2); Basophils Percent Auto 0.8 % (0-2); Eosinophils Absolute Auto 0.4 X10*3/uL (0.0-0.4); Eosinophils Percent Auto 4.5 % (0-4); Hematocrit 35.1 % (37.0-47.0); Hemoglobin 11.2 g/dl (12.0-16.0); Imm Gran Abs Auto 0.03 X10*3/uL (0.00-0.03); Imm Gran Pct Auto 0.3 % (0.0-0.4); Lymphocytes Absolute Auto 2.5 X10*3/uL (1.2-4.9); Lymphocytes Percent Auto 29.1 % (20-40); Mean Corpuscular HGB Conc 31.9 g/dl (31.0-35.0); Mean Corpuscular Hemoglobin 27.3 pg (27.0-33.0); Mean Corpuscular Volume 85.6 fL (80.0-98.0); Mean Platelet Volume 9.7 fL (9.4-12.3); Monocytes Absolute Auto 0.9 X10*3/uL (0.1-1.2); Monocytes Percent Auto 10.3 % (2-11); Neutrophils Absolute Auto 4.8 x10*3/uL (2.0-8.3); Platelet Count 272 X10*3/uL (160-400); Red Cell Distribution Width 14.4 % (11.0-16.0); White Blood Count 8.7 X10*3/uL (4.8-10.8)
[2024-07-16 17:57] LABS: Alanine Aminotransferase 14 U/L (0-31); Albumin Level 4.2 g/dL (3.5-5.0); Alkaline Phosphatase 80 U/L (39-117); Anion Gap 13 (12-20); Aspartate Amino Transferase 26 U/L (5-31); Bilirubin Direct < 0.2 mg/dL (0.0-0.5); Bilirubin Total 0.2 mg/dL (0.0-1.0); Blood Urea Nitrogen 17 mg/dL (9-16); Calcium 10.2 mg/dL (8.4-10.2); Carbon Dioxide 24 mmol/L (22-29); Chloride 108 mmol/L (96-108); Estimated Glomerular Filt Rate 40; Glucose Random 126 mg/dL (60-115); Magnesium 1.5 mg/dL (1.6-2.6); Potassium 4.1 mmol/L (3.3-5.1); Sodium 141 mmol/L (135-145); Total Protein 7.7 g/dL (6.5-8.0)
--- OUTSIDE RECORDS SUMMARY | 2024-07-16 20:21 | XMS_ITS | Clinical Summary ---
Author Organization [facility] Facility Address [address] [place] [address], [place] [address] Care Team Providers Care Business Support Specialist Name Role Phone Carmita Dietz CONTRACT SERVICEMAN-C Primary Care Provider + Allergies No known [...] 1 (one) time each day Active Biotin 03379 MCG tablet dispersible Take by mouth Active [...] patient's age to complete this topic [place] [address] [address] [facility] Care Teams Business Support Specialist Relationship Specialty Start Date End Date Carmita Dietz NP-C [address], [address] [place] [address] PCP - General Nurse Practitioner 07/18/22
--- OUTSIDE RECORDS SUMMARY | 2024-07-16 20:21 | XMS_ITS | Data Portability ---
Author Organization 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 Time spent: 31 (minutes) [email or web address] Not available 04/05/2021 22:05:29 06/16/2024 06/16/2024 T2DM on metformin 500 mg. Renal insufficiency [...] communication with specialists, ER staff. Time spent: 54 (minutes) 07/07 new complaint of high PTH and high Ca. also CKD [email or web address] Not available 06/28/2024 14:20:00 Plan of Treatment Reminders Order Date Submit Date Provider Last Modified By Organization Details Last Modified Time Details Appointments Follow Up, 2024 02:40P Renee Ham MD Not available Not available Not available Lab renal function panel, serum 2024 025 [facility], [address], [place], [address], 07/10/2024 12:02:11 vitamin D, 25-hydro xy, total, serum 2024 025 [facility], [address], [place], [address], 07/10/2024 12:18:59 PTH (parathy roid hormone) , intact + calcium, serum or plasma 2024 025 [facility], [address], [place], [address], 06/16/2024 13:10:32 calcium, 24-hour urine 2024 025 [facility], [address], [place], [address], 07/10/2024 13:00:44 creatini ne, 24-hour urine 2024 025 [facility], [address], [place], [address], 07/10/2024 13:00:45 phosphor us, 24-hour urine 2024 025 [facility], [address], [place], [address], 07/10/2024 13:00:48 volume, total, 24-hour urine 2024 025 [facility], [address], [place], [address], 06/16/2024 13:10:32 CASR gene full mutation analysis , blood or tissue 2024 025 [facility], [address], [place], [address], 06/30/2024 13:10:31 vitamin D, 25-hydro xy, total, serum 2019 021 [facility], [address], [place], [address], 02/02/2021 11:16:20 HbA1c (hemoglo bin A1c), blood 2019 020 [facility], [address], [place], [address], 09/02/2020 13:55:20 CMP, serum or plasma 2019 021 [facility], [address], [place], [address], 09/02/2020 11:43:26 CMP, serum or plasma 2020 021 [facility], [address], [place], [address], 02/02/2021 11:26:12 HbA1c (hemoglo bin A1c), blood 2020 021 [facility], [address], [place], [address], 02/02/2021 10:57:24 TSH, serum or plasma 2019 021 [facility], [address], [place], [address], 02/02/2021 11:26:16 T4, free, serum 2019 021 [facility], [address], [place], [address], 02/02/2021 11:26:14 HbA1c (hemoglo bin A1c), blood 2018 019 [facility], [address], [place], [address], 06/12/2019 15:32:59 CMP, serum or plasma 2018 019 [facility], [address], [place], [address], 06/12/2019 16:09:37 TSH, serum or plasma 2018 019 [facility], [address], [place], [address], 06/12/2019 16:09:40 T4, free, serum 2018 019 [facility], [address], [place], [address], 06/12/2019 16:09:39 vitamin D, 25-hydro xy, total, serum 2017 019 [facility], [address] [place] [address], [address], 06/27/2018 14:55:41 renal function panel, serum 2017 019 [facility], [address], [address], 02/02/2019 14:46:53 Referral None recorded . Procedures None recorded . Surgeries None recorded . Imaging None recorded . Medication Orders levothyr oxine 75 mcg tablet 2020 021 [id number], [address] [place], [address], 06/16/2024 11:33:34 levothyr oxine 75 mcg tablet 2017 018 [id number], [address] [place], [address], 06/16/2024 11:33:34 Patient TargetsNo targets recorded. Patient Instructions Encounter Date Encounter Id Patient Instructions Last Modified By Organization Details Last Modified Time 03/27/2019 [id number] - Get labs done beginning in May [...] feet [email or web address] Not available 03/27/2019 11:29:50 04/01/2020 [id number] - Get labs done beginning in May [...] PCP. [email or web address] Not available 04/01/2020 09:43:27 04/05/2021 [id number] - Continue taking thyroid hormone every day [...] PCP. [email or web address] Not availabl e 04/05/2021 22:02:24 06/16/2024 [id number] - Continue taking thyroid hormone every day [...] as physically active as you can - Please get 24 hour urine collection. Do blood test on day you bring the urine collection. [email or web address] Not available 06/16/2024 12:52:34 20 minute slot after labs done (mid-July 2024) [email or web address] Not available 06/16/2024 12:53:12 Reason for Referral None Reported. Results Created Date Observation Date Name Description Value Unit Range Abnormal Flag Note LastModifiedBy Organization Detail LastModifiedTime 03/12/20 18 03/12/2018 T4, free, serum free T4 1.5 NG/dL 0.9-1. 7 Not Available [facility] (Outpatient) [address] [place], [address], 03/12/2018 13:41:14 03/12/20 18 03/12/2018 lfts (hepa tic panel ) alkaline phosphatase 52 U/L 39-117 Not Available [facility] (Outpatient) [address] [place], [address], 03/12/2018 13:41:18 03/12/20 18 03/12/2018 lfts (hepa tic panel ) total bilirubin 0.3 mg/dL 0.0-1. 2 Not Available [facility] (Outpatient) [address] [place], [address], 03/12/2018 13:41:18 03/12/20 18 03/12/2018 lfts (hepa tic panel ) direct bilirubin <0.2 mg/dL 0-0.3 Not Available [facility] (Outpatient) [address] [place], [address], 03/12/2018 13:41:18 03/12/20 18 03/12/2018 lfts (hepa tic panel ) bilirubin (indirect) NOT CALCUL ATED mg/dL 0-1.5 Not Available [facility] (Outpatient) [address] [place], [address], 03/12/2018 13:41:18 03/12/20 18 03/12/2018 lfts (hepa tic panel ) AST 14 U/L 0-37 Not Available [facility] (Outpatient) [address] [place], [address], 03/12/2018 13:41:18 03/12/20 18 03/12/2018 lfts (hepa tic panel ) ALT 9 U/L 0-40 Not Available [facility] (Outpatient) [address] [place], [address], 03/12/2018 13:41:18 03/12/20 18 03/12/2018 lfts (hepa tic panel ) total protein 7.7 g/dL 6.5-8. 0 Not Available [facility] (Outpatient) [address] [place], [address], 03/12/2018 13:41:18 03/12/20 18 03/12/2018 lfts (hepa tic panel ) albumin 4.4 g/dL 3.9-4. 8 Not Available [facility] (Outpatient) [address] [place], [address], 03/12/2018 13:41:18 03/12/20 18 03/12/2018 lfts (hepa tic panel ) globulin 3.3 g/dL 1-4.8 Not Available [facility] (Outpatient) [address] [place] [address], [address], 03/12/2018 13:41:18 03/12/20 18 03/12/2018 lfts (hepa tic panel ) A/G ratio 1.33 ratio 1.00-4 .80 Not Available [facility] (Outpatient) [address] [place] [address], [address], 03/12/2018 13:41:18 03/12/20 18 03/12/2018 TSH, serum or plasm a TSH 0.81 uIU/m L 0.27-4 .20 Not Available [facility] ([facility]) [address] [place] [address], [address], 03/12/2018 13:41:19 03/12/20 18 03/12/2018 vitam in D, 25-hy droxy , total , serum 25 oh vit D (total) >60 NG/mL 30-60 high Not Available [facility] (Outpatient) [address] [place] [address], [address], 03/12/2018 15:16:52 06/27/19 19 06/27/2018 vitam in D, 25-hy droxy , total , serum 25OH vitamin D 52.2 NG/mL (20-50 ) high Serum 25OHD : Great er than 50 ng/ml : linette garduno vitam in D. Refer ence: [facility] Data Brief : No.59 July: Vitam in D Statu s: Unite d State s: 2000- 2005 As of , Vitam in D, 25-Hy droxy assay has been simpson ed. In some [facility], the new assay may yield a highe r value (up to 15% incre ase) in s[place] rison to the old assay . These incre ases would mainl y be notic eable at value s of great er than 50 ng/ml . Not Available [facility] (Centralized Electronic Ordering - All Locations) Patient Can Go To The Location Of Their Choice, 06/27/2018 14:55:41 06/27/1906/27/2018 renal funct ion panel , serum glucose 110 mg/dL (70-99 ) high Not Available [facility] (Centralized Electronic Ordering - All Locations) Patient Can Go To The Location Of Their Choice, 06/27/2018 22:36:17 06/27/1906/27/2018 renal funct ion panel , serum BUN 23 mg/dL (8-23) Not Available [facility] (Centralized Electronic Ordering - All Locations) Patient Can Go To The Location Of Their Choice, 06/27/2018 22:36:17 06/27/1906/27/2018 renal funct ion panel , serum creatinine 1.6 mg/dL (0.5-1 .0) high Not Available [facility] (Centralized Electronic Ordering - All Locations) Patient Can Go To The Location Of Their Choice, 06/27/2018 22:36:17 06/27/1906/27/2018 renal funct ion panel , serum sodium 141 mmol/ L (133-1 45) Not Available [facility] (Centralized Electronic Ordering - All Locations) Patient Can Go To The Location Of Their Choice, 06/27/2018 22:36:17 06/27/1906/27/2018 renal funct ion panel , serum potassium 4.8 mmol/ L (3.6-5 .2) Not Available [facility] (Centralized Electronic Ordering - All Locations) Patient Can Go To The Location Of Their Choice, 06/27/2018 22:36:06/27/1906/27/2018 renal funct ion panel , serum chloride 104 mmol/ L (98-10 7) Not Available [facility] (Centralized Electronic Ordering - All Locations) Patient Can Go To The Location Of Their Choice, 06/27/2018 22:36:06/27/1906/27/2018 renal funct ion panel , serum bicarbonate 24 mmol/ L (22-29 ) Not Available [facility] (Centralized Electronic Ordering - All Locations) Patient Can Go To The Location Of Their Choice, 06/27/2018 22:36:06/27/1906/27/2018 renal funct ion panel , serum anion gap 13 (4-17) Not Available [facility] (Centralized Electronic Ordering - All Locations) Patient Can Go To The Location Of Their Choice, 06/27/2018 22:36:06/27/1906/27/2018 renal funct ion panel , serum albumin 4.4 gm/dL (3.4-4 .8) Not Available [facility] (Centralized Electronic Ordering - All Locations) Patient Can Go To The Location Of Their Choice, 06/27/2018 22:36:06/27/1906/27/2018 renal funct ion panel , serum calcium 11.1 mg/dL (8.6-1 0.5) high Not Available [facility] (Centralized Electronic Ordering - All Locations) Patient Can Go To The Location Of Their Choice, 06/27/2018 22:36:06/27/1906/27/2018 renal funct ion panel , serum phosphorus 3.0 mg/dL (2.5-4 .5) Not Available [facility] (Centralized Electronic Ordering - All Locations) Patient Can Go To The Location Of Their Choice, 06/27/2018 22:36:06/27/1906/27/2018 renal funct ion panel , serum est [...] [employer]. Not Available [facility] (Centralized Electronic Ordering - All Locations) Patient Can Go To The Location Of Their Choice, [id number] 06/27/2018 22:36:17 06/27/1906/27/2018 renal funct ion panel [...] [employer]. Not Available [facility] (Centralized Electronic Ordering - All Locations) Patient Can Go To The Location Of Their Choice, [address] 06/27/2018 22:36:17 08/12/1908/11/2018 renal funct ion panel , serum sodium 140 mmol/ L 133-14 6 Not Available [facility] (Out[facility]) [address] [place], [address], 08/11/2018 17:28:23 08/12/1908/11/2018 renal funct ion panel , serum potassium 4.9 mmol/ L 3.3-5. 1 Not Available [facility] (Outpatient) [address] [place], [address], 08/11/2018 17:28:23 08/12/1908/11/2018 renal funct ion panel , serum chloride 103 mmol/ L 96-108 Not Available [facility] (Outpatient) [address] [place], [address], 08/11/2018 17:28:23 08/12/19 19 08/11/2018 renal funct ion panel , serum CO2 23 mmol/ L 21-35 Not Available [facility] (Outpatient) [address] [place], [address], 08/11/2018 17:28:23 08/12/19 19 08/11/2018 renal funct ion panel , serum glucose 111 mg/dL 70-99 high Not Available [facility] (Outpatient) [address] [place], [address], 08/11/2018 17:28:23 08/12/19 19 08/11/2018 renal funct ion panel , serum BUN 20 mg/dL 6-19 high Not Available [facility] (Outpatient) [address] [place], [address], 08/11/2018 17:28:23 08/12/19 19 08/11/2018 renal funct ion panel , serum creatinine 1.30 mg/dL 0.5-1. 5 Not Available [facility] ([facility]patient) [address] [place], [address], 08/11/2018 17:28:23 08/12/19 19 08/11/2018 renal funct ion panel , serum calcium 10.8 mg/dL 8.4-10 .3 high Not Available [facility] (Outpatient) [address] [place], [address], 08/11/2018 17:28:23 08/12/19 19 08/11/2018 renal funct ion panel , serum phosphorus 2.7 mg/dL 2.7-4. 5 Not Available [facility] (Outpatient) [address] [place], [address], 08/11/2018 17:28:23 08/12/19 19 08/11/2018 renal funct ion panel , serum albumin 4.5 g/dL 3.9-4. 8 Not Available [facility] (Outpatient) [address] [place], [address], 08/11/2018 17:28:23 08/12/19 19 08/11/2018 renal funct ion panel , serum eGFR 40 mL/mi n/1.7 3m2 >59 low If patie nt is black , multi ply resul t by 1.159 . Estim ated glome rular filtr ation rate calcu lated using the CKD-E PI equat ion. Not Available [facility] (Outpatient) [address] [place], [address], 08/11/2018 17:28:23 08/12/19 19 08/11/2018 renal funct ion panel , serum anion gap 19 mmol/ L 10-20 Not Available [facility] (Outpatient) [address] [place], [address], 08/11/2018 17:28:23 03/23/20 19 03/23/2019 vitam in D, 25-hy droxy , total , serum 25OH vitamin D 42.2 NG/mL (20-50 ) Serum 25OHD : 20 to 50 ng/mL : suffi cient in vitam in D. Refer ence: [facility] Data Brief : No.59 July: Vitam in D Statu s: Unite d State s: 2000- 2005 Not Available [facility] (Centralized Electronic Ordering - All Locations) Patient Can Go To The Location Of Their Choice, [id number] 03/23/2019 18:54:58 03/23/20 19 03/23/2019 renal funct ion panel , serum glucose 84 mg/dL (70-99 ) Not Available [facility] (Centralized Electronic Ordering - All Locations) Patient Can Go To The Location Of Their Choice, [id number] 03/23/2019 19:05:49 03/23/20 19 03/23/2019 renal funct ion panel , serum BUN 24 mg/dL (8-23) high Not Available [facility] (Centralized Electronic Ordering - All Locations) Patient Can Go To The Location Of Their Choice, [id number] 03/23/2019 19:05:49 03/23/20 19 03/23/2019 renal funct ion panel , serum creatinine 1.5 mg/dL (0.5-1 .0) high Not Available [facility] (Centralized Electronic Ordering - All Locations) Patient Can Go To The Location Of Their Choice, [id number] 03/23/2019 19:05:49 03/23/2003/23/2019 renal funct ion panel , serum sodium 141 mmol/ L (133-1 45) Not Available [facility] (Centralized Electronic Ordering - All Locations) Patient Can Go To The Location Of Their Choice, [id number] 03/23/2019 19:05:49 03/23/2003/23/2019 renal funct ion panel , serum potassium 4.9 mmol/ L (3.6-5 .2) Not Available [facility] (Centralized Electronic Ordering - All Locations) Patient Can Go To The Location Of Their Choice, [id number] 03/23/2019 19:05:49 03/23/2003/23/2019 renal funct ion panel , serum chloride 104 mmol/ L (98-10 7) Not Available [facility] (Centralized Electronic Ordering - All Locations) Patient Can Go To The Location Of Their Choice, [id number] 03/23/2019 19:05:49 03/23/2003/23/2019 renal funct ion panel , serum bicarbonate 25 mmol/ L (22-29 ) Not Available [facility] (Centralized Electronic Ordering - All Locations) Patient Can Go To The Location Of Their Choice, [address] 03/23/2019 19:05:49 03/23/2003/23/2019 renal funct ion panel , serum anion gap 12 (4-17) Not Available [facility] (Centralized Electronic Ordering - All Locations) Patient Can Go To The Location Of Their Choice, [id number] 03/23/2019 19:05:49 03/23/2003/23/2019 renal funct ion panel , serum albumin 4.2 gm/dL (3.4-4 .8) Not Available [facility] (Centralized Electronic Ordering - All Locations) Patient Can Go To The Location Of Their Choice, [id number] 03/23/2019 19:05:49 03/23/2003/23/2019 renal funct ion panel , serum calcium 10.9 mg/dL (8.6-1 0.5) high Not Available [facility] (Centralized Electronic Ordering - All Locations) Patient Can Go To The Location Of Their Choice, [address] 03/23/2019 19:05:49 03/23/2003/23/2019 renal funct ion panel , serum phosphorus 3.2 mg/dL (2.5-4 .5) Not Available [facility] (Centralized Electronic Ordering - All Locations) Patient Can Go To The Location Of Their Choice, [id number] 03/23/2019 19:05:49 03/23/2003/23/2019 renal funct ion panel [...] [employer]. Not Available [facility] (Centralized Electronic Ordering - All Locations) Patient Can Go To The Location Of Their Choice, [id number] 03/23/2019 19:05:49 03/23/2003/23/2019 renal funct ion panel [...] [employer]. Not Available [facility] (Centralized Electronic Ordering - All Locations) Patient Can Go To The Location Of Their Choice, [address] 03/23/2019 19:05:49 03/23/2003/27/2019 TSH, serum or plasm a TSH 1.05 mIU/m L (0.40- 4.00) Not Available [facility] (Centralized Electronic Ordering - All Locations) Patient Can Go To The Location Of Their Choice, 03/27/2019 20:19:23 06/12/19 20 06/12/2019 HbA1c (hemo globi n A1c), blood hemoglobin A1C 6.3 % 4.3-5. 8 high Not Available [facility] ([facility]) [address] [place], [address], 06/12/2019 15:32:59 06/12/19 20 06/12/2019 lipid panel [...] hormo arnaud, sex and age. Not Available [facility] ([facility]) [address] [place], [address], 06/12/2019 15:58:07 06/12/19 20 06/12/2019 lipid panel , blood cholesterol 176 mg/dL 0-240 Not Available [facility] (Outpatient) [address] [place], [address], 06/12/2019 15:58:07 06/12/19 20 06/12/2019 lipid panel , blood triglyceride s 199 mg/dL 30-160 high Not Available [facility] (Outpatient) [address] [place], [address], 06/12/2019 15:58:07 06/12/19 20 06/12/2019 lipid panel , blood LDL 98 mg/dL 50-129 LDL level s in terms of risk for coron amol heart disea se: <100 mg/dL : Optim al 100-1 29 mg/dL : Near or above optim al 130-1 59 mg/dL : Alyse jacobo high 160-1 89 mg/dL : High >190 mg/dL : Very High Not Available [facility] (Outpatient) [address] [place], [address], 06/12/2019 15:58:07 06/12/19 20 06/12/2019 lipid panel , blood cardiac risk ratio 4.6 3.3-4. 4 high Not Available [facility] (Outpatient) [address] [place], [address], 06/12/2019 15:58:07 06/12/19 20 06/12/2019 micro album in/cr eatin ine, mass ratio , urine urine microalbumin <1.2 mg/dL 0-2.3 Not Available [facility] (Outpatient) [address] [place], [address], 06/12/2019 16:00:19 06/12/19 20 06/12/2019 micro album in/cr eatin ine, mass ratio , urine urine creatinine 58 mg/dL Not Available [facility] (Outpatient) [address] [place], [address], 06/12/2019 16:00:19 06/12/19 20 06/12/2019 micro album in/cr eatin ine, mass ratio , urine microalb/cre ratio NOT CALCUL ATED mg/g_ cre 0-20 due to Micro album in <1.2 Not Available [facility] (Outpatient) [address] [place], [address], 06/12/2019 16:00:19 06/12/19 20 06/12/2019 CMP, serum or plasm a sodium 139 mmol/ L 133-14 6 Not Available [facility] (Outpatient) [address] [place], [address], 06/12/2019 16:09:37 06/12/19 20 06/12/2019 CMP, serum or plasm a potassium 4.8 mmol/ L 3.3-5. 1 Not Available [facility] (Out[facility]) [address] [place], [address], 06/12/2019 16:09:37 06/12/19 20 06/12/2019 CMP, serum or plasm a chloride 103 mmol/ L 96-108 Not Available [facility] ([facility]patient) [address] [place], [address], 06/12/2019 16:09:37 06/12/19 20 06/12/2019 CMP, serum or plasm a CO2 23 mmol/ L 21-35 Not Available [facility] ([facility]) [address] [place], [address], 06/12/2019 16:09:37 06/12/19 20 06/12/2019 CMP, serum or plasm a BUN 21 mg/dL 6-19 high Not Available [facility] ([facility]) [address] [place], [address], 06/12/2019 16:09:37 06/12/19 20 06/12/2019 CMP, serum or plasm a creatinine 1.20 mg/dL 0.5-1. 5 Not Available [facility] ([facility]) [address] [place], [address], 06/12/2019 16:09:37 06/12/19 20 06/12/2019 CMP, serum or plasm a glucose 116 mg/dL 70-99 high Not Available [facility] ([facility]) [address] [place], [address], 06/12/2019 16:09:37 06/12/19 20 06/12/2019 CMP, serum or plasm a albumin 4.4 g/dL 3.9-4. 8 Not Available [facility] ([facility]) [address] [place], [address], 06/12/2019 16:09:37 06/12/19 20 06/12/2019 CMP, serum or plasm a total protein 7.7 g/dL 6.5-8. 0 Not Available [facility] ([facility]patient) [address] [place], [address], 06/12/2019 16:09:37 06/12/19 20 06/12/2019 CMP, serum or plasm a calcium 10.9 mg/dL 8.4-10 .3 high Not Available [facility] (Outpatient) [address] [place] [address], [address], 06/12/2019 16:09:37 06/12/19 20 06/12/2019 CMP, serum or plasm a alkaline phosphatase 61 U/L 39-117 Not Available [facility] (Outpatient) [address] [place] [address], [address], 06/12/2019 16:09:37 06/12/19 20 06/12/2019 CMP, serum or plasm a total bilirubin 0.2 mg/dL 0.0-1. 2 Not Available [facility] (Outpatient) [address] [place] [address], [address], 06/12/2019 16:09:37 06/12/19 20 06/12/2019 CMP, serum or plasm a AST 22 U/L 0-37 Not Available [facility] ([facility]) [address] [place], [address], 06/12/2019 16:09:37 06/12/19 20 06/12/2019 CMP, serum or plasm a ALT 9 U/L 0-40 Not Available [facility] ([facility]) [address] [place] [address], [address], 06/12/2019 16:09:37 06/12/19 20 06/12/2019 CMP, serum or plasm a globulin 3.3 g/dL 1-4.8 Not Available [facility] (Outpatient) [address] [place] [address], [address], 06/12/2019 16:09:37 06/12/19 20 06/12/2019 CMP, serum or plasm a eGFR 44 mL/mi n/1.7 3m2 >59 low If patie nt is black , multi ply resul t by 1.159 . Estim ated glome rular filtr ation rate calcu lated using the CKD-E PI equat ion. Not Available [facility] (Outpatient) [address] [place], [address], 06/12/2019 16:09:37 06/12/19 20 06/12/2019 CMP, serum or plasm a anion gap 18 mmol/ L 10-20 Not Available [facility] ([facility]patient) [address] [place], [address], 06/12/2019 16:09:37 06/12/19 20 06/12/2019 T4, free, serum free T4 1.4 NG/dL 0.9-1. 7 Not Available [facility] (Outpatient) [address] [place], [address], 06/12/2019 16:09:39 06/12/19 20 06/12/2019 TSH, serum or plasm a TSH 1.12 uIU/m L 0.27-4 .20 Not Available [facility] ([facility]) [address] [place], [address], 06/12/2019 16:09:40 01/21/20 20 01/21/2020 HbA1c (hemo globi n A1c), blood hemoglobin A1C 6.1 % 4.3-5. 8 high Not Available [facility] (Out[facility]) [address] [place], [address], 01/21/2020 11:26:48 01/21/20 20 01/21/2020 lipid panel [...] a numbe r of facto rs, e.g. scottyi dejon, excer ise, hormo arnaud, sex and age. Not Available [facility] (Out[facility]) [address] [place], [address], 01/21/2020 11:36:33 01/21/20 20 01/21/2020 lipid panel , blood cholesterol 163 mg/dL 0-240 Not Available [facility] (Outpatient) [address] [place], [address], 01/21/2020 11:36:33 01/21/20 20 01/21/2020 lipid panel , blood triglyceride s 289 mg/dL 30-160 high Not Available [facility] (Outpatient) [address] [place], [address], 01/21/2020 11:36:33 01/21/20 20 01/21/2020 lipid panel , blood LDL 69 mg/dL 50-129 LDL level s in terms of risk for coron amol heart disea se: <100 mg/dL : Optim al 100-1 29 mg/dL : Near or above optim al 130-1 59 mg/dL : Borde rline high 160-1 89 mg/dL : High >190 mg/dL : Very High Not Available [facility] (Outpatient) [address] [place], [address], 01/21/2020 11:36:33 01/21/2001/21/2020 lipid panel , blood cardiac risk ratio 4.5 3.3-4. 4 high Not Available [facility] [facility] [address] [place], [address], 01/21/2020 11:36:33 01/21/20 20 01/21/2020 vitam in D, 25-hy droxy , total , serum 25 oh vit D (total) 37 NG/mL 30-60 Not Available [facility] ([facility] [address] [place], [address], 01/21/2020 11:50:58 01/21/2001/21/2020 CMP, serum or plasm a sodium 137 mmol/ L 133-14 6 Not Available [facility] [address] [place], [address], 01/21/2020 11:51:29 01/21/20 20 01/21/2020 CMP, serum or plasm a potassium 5.0 mmol/ L 3.3-5. 1 Not Available [facility] ([facility] [address] [place], [address], 01/21/2020 11:51:29 01/21/20 20 01/21/2020 CMP, serum or plasm a chloride 105 mmol/ L 96-108 Not Available [facility] [address] [place], [address], 01/21/2020 11:51:29 01/21/2001/21/2020 CMP, serum or plasm a CO2 21 mmol/ L 21-35 Not Available [facility] [address] [place], [address], 01/21/2020 11:51:29 01/21/2001/21/2020 CMP, serum or plasm a BUN 27 mg/dL 6-19 high Not Available [facility] [address] [place], [address], 01/21/2020 11:51:29 01/21/2001/21/2020 CMP, serum or plasm a creatinine 1.50 mg/dL 0.5-1. 5 Not Available [facility] [address] [place], [address], 01/21/2020 11:51:29 01/21/2001/21/2020 CMP, serum or plasm a glucose 129 mg/dL 70-99 high Not Available [facility] [address] [place], [address], 01/21/2020 11:51:29 01/21/2001/21/2020 CMP, serum or plasm a albumin 4.3 g/dL 3.9-4. 8 Not Available [facility] [address] [place], [address], 01/21/2020 11:51:29 01/21/20 20 01/21/2020 CMP, serum or plasm a total protein 7.3 g/dL 6.5-8. 0 Not Available [facility] [address] [place], [address], 01/21/2020 11:51:29 01/21/20 20 01/21/2020 CMP, serum or plasm a calcium 11.2 mg/dL 8.4-10 .3 high Not Available [facility] [address] [place], [address], 01/21/2020 11:51:29 01/21/2001/21/2020 CMP, serum or plasm a alkaline phosphatase 48 U/L 39-117 Not Available [facility] (Outpatient) [address] [place], [address], 01/21/2020 11:51:29 01/21/2001/21/2020 CMP, serum or plasm a total bilirubin 0.3 mg/dL 0.0-1. 2 Not Available [facility] [address] [place], [address], 01/21/2020 11:51:29 01/21/2001/21/2020 CMP, serum or plasm a AST 15 U/L 0-37 Not Available [facility] [address] [place], [address], 01/21/2020 11:51:29 01/21/2001/21/2020 CMP, serum or plasm a ALT 6 U/L 0-40 Not Available [facility] [address] [place], [address], 01/21/2020 11:51:29 01/21/2001/21/2020 CMP, serum or plasm a globulin 3.0 g/dL 1-4.8 Not Available [facility] [address] [place], [address], 01/21/2020 11:51:29 01/21/20 20 01/21/2020 CMP, serum or plasm a eGFR 33 mL/mi n/1.7 3m2 >59 low Estim ated glome rular filtr ation rate calcu lated using the CKD-E PI equat ion. Not Available [facility] ([facility] [address] [place], [address], 01/21/2020 11:51:29 01/21/20 20 01/21/2020 CMP, serum or plasm a anion gap 16 mmol/ L 10-20 Not Available [facility] [address] [place], [address], 01/21/2020 11:51:29 01/21/20 20 01/21/2020 T4, free, serum free T4 1.1 NG/dL 0.9-1. 7 Not Available [facility] [address] [place], [address], 01/21/2020 11:51:31 01/21/2001/21/2020 TSH, serum or plasm a TSH 1.88 uIU/m L 0.27-4 .20 Not Available [facility] [address] [place], [address], 01/21/2020 11:51:33 01/21/20 20 01/21/2020 micro album in/cr eatin ine, mass ratio , urine urine microalbumin <1.2 mg/dL 0-2.3 Not Available [facility] (Outpatient) [address] [place], [address], 01/21/2020 16:09:45 01/21/20 20 01/21/2020 micro album in/cr eatin ine, mass ratio , urine urine creatinine 83 mg/dL Not Available [facility] (Outpatient) [address] [place], [address], 01/21/2020 16:09:45 01/21/20 20 01/21/2020 micro album in/cr eatin ine, mass ratio , urine microalb/cre ratio NOT CALCUL ATED mg/g_ cre 0-20 due to Micro album in <1.2 Not Available [facility] [address] [place], [address], 01/21/2020 16:09:45 09/03/19 21 09/02/2020 CMP, serum or plasm a sodium 139 mmol/ L 133-14 6 Not Available [facility] [address] [place], [address], 09/02/2020 11:43:26 09/03/19 21 09/02/2020 CMP, serum or plasm a potassium 5.3 mmol/ L 3.3-5. 1 high Not Available [facility] [address] [place] [address], [address], 09/02/2020 11:43:26 09/03/19 21 09/02/2020 CMP, serum or plasm a chloride 106 mmol/ L 96-108 Not Available [facility] ([facility] [address] [place], [address], 09/02/2020 11:43:26 09/03/19 21 09/02/2020 CMP, serum or plasm a CO2 23 mmol/ L 21-35 Not Available [facility] [address] [place], [address], 09/02/2020 11:43:26 09/03/19 21 09/02/2020 CMP, serum or plasm a BUN 26 mg/dL 6-19 high Not Available [facility] [address] [place], [address], 09/02/2020 11:43:26 09/03/19 21 09/02/2020 CMP, serum or plasm a creatinine 1.40 mg/dL 0.5-1. 5 Not Available [facility] [address] [place], [address], 09/02/2020 11:43:26 09/03/19 21 09/02/2020 CMP, serum or plasm a glucose 114 mg/dL 70-99 high Not Available [facility] [address] [place], [address], 09/02/2020 11:43:26 09/03/19 21 09/02/2020 CMP, serum or plasm a albumin 4.3 g/dL 3.9-4. 8 Not Available [facility] [address] [place], [address], 09/02/2020 11:43:26 09/03/19 21 09/02/2020 CMP, serum or plasm a total protein 7.6 g/dL 6.5-8. 0 Not Available [facility] [address] [place], [address], 09/02/2020 11:43:26 09/03/19 21 09/02/2020 CMP, serum or plasm a calcium 10.7 mg/dL 8.4-10 .3 high Not Available [facility] [address] [place], [address], 09/02/2020 11:43:26 09/03/19 21 09/02/2020 CMP, serum or plasm a alkaline phosphatase 56 U/L 39-117 Not Available [facility] (Outpatient) [address] [place], [address], 09/02/2020 11:43:26 09/03/19 21 09/02/2020 CMP, serum or plasm a total bilirubin 0.2 mg/dL 0.0-1. 2 Not Available [facility] [address] [place], [address], 09/02/2020 11:43:26 09/03/19 21 09/02/2020 CMP, serum or plasm a AST 16 U/L 0-37 Not Available [facility] [address] [place] [address], [address], 09/02/2020 11:43:26 09/03/19 21 09/02/2020 CMP, serum or plasm a ALT 7 U/L 0-40 Not Available [facility] [address] [place], [address], 09/02/2020 11:43:26 09/03/19 21 09/02/2020 CMP, serum or plasm a globulin 3.3 g/dL 1-4.8 Not Available [facility]) [address] [place] [address], [address], 09/02/2020 11:43:26 09/03/19 21 09/02/2020 CMP, serum or plasm a eGFR 36 mL/mi n/1.7 3m2 >59 low Estim ated glome rular filtr ation rate calcu lated using the CKD-E PI equat ion. Not Available [facility]) [address] [place] [address], [address], 09/02/2020 11:43:26 09/03/19 21 09/02/2020 CMP, serum or plasm a anion gap 15 mmol/ L 10-20 Not Available [facility] [address] [place] [address], [address], 09/02/2020 11:43:26 09/03/19 21 09/02/2020 lipid panel , blood HDL 38 mg/dL Inter preta tion <40 mg/dL : Low HDL abrahan stero l (jennifer r risk facto r for CHD) Great er than or equal to 60 mg/dL : High HDL abrahan stero l ( neg ative risk facto r for CHD) HDL - abrahan stero l is affec carlito by gilma rebollar of facto rs, e.g. becki ashford, dustinr ise, hormo arnaud, sex and age. Not Available [facility] [address] [place], [address], 09/02/2020 12:00:24 09/03/19 21 09/02/2020 lipid panel , blood cholesterol 139 mg/dL 0-240 Not Available [facility] [address] [place], [address], 09/02/2020 12:00:24 09/03/19 21 09/02/2020 lipid panel , blood triglyceride s 164 mg/dL 30-160 high Not Available [facility] [address] [place], [address], 09/02/2020 12:00:24 09/03/19 21 09/02/2020 lipid panel , blood LDL 68 mg/dL 50-129 LDL level s in terms of risk for coron amol heart disea se: <100 mg/dL : Optim al 100-1 29 mg/dL : Near or above optim al 130-1 59 mg/dL : Olegde eddiine high 160-1 89 mg/dL : High >190 mg/dL : Very High Not Available [facility] [address] [place], [address], 09/02/2020 12:00:24 09/03/1909/02/2020 lipid panel , blood cardiac risk ratio 3.7 3.3-4. 4 Not Available [facility] ([facility]) [address] [place], [address], 09/02/2020 12:00:24 09/03/1909/02/2020 HbA1c (hemo globi n A1c), blood hemoglobin A1C 6.2 % 4.3-5. 8 high Not Available [facility] ([facility]) [address] [place], [address], 09/02/2020 13:55:19 09/07/19 21 09/06/2020 micro album in/cr eatin ine, mass ratio , urine urine microalbumin <1.2 mg/dL 0-2.3 Not Available [facility]Steward[facility] Thirdharjinder otto [facility] (Outpatient) [address] [place], [address], 09/06/2020 18:43:58 09/07/19 21 09/06/2020 micro album in/cr eatin ine, mass ratio , urine urine creatinine 34 mg/dL Not Available [facility] (Outpatient) [address] [place], [address], 09/06/2020 18:43:58 09/07/19 21 09/06/2020 micro album in/cr eatin ine, mass ratio , urine microalb/cre ratio NOT CALCUL ATED mg/g_ cre 0-20 due to Micro album in <1.2 Not Available [facility] ([facility]) [address] [place], [address], 09/06/2020 18:43:58 02/03/20 21 02/02/2021 HEMOG LOBIN A1C hemoglobin A1C 6.1 % 4.3-5. 8 high Not Available [facility] ([facility] [address] [place], [address], 02/02/2021 10:57:24 02/03/20 21 02/02/2021 LIPID PANEL [...] hormo arnaud, sex and age. Not Available [facility]) [address] [place], [address], 02/02/2021 11:05:04 02/03/20 21 02/02/2021 LIPID PANEL cholesterol 159 mg/dL 0-240 Not Available [facility]) [address] [place], [address], 02/02/2021 11:05:04 02/03/20 21 02/02/2021 LIPID PANEL triglyceride s 247 mg/dL 30-160 high Not Available [facility] ([facility]) [address] [place], [address], 02/02/2021 11:05:04 02/03/20 21 02/02/2021 LIPID PANEL LDL 74 mg/dL 50-129 LDL level s in terms of risk for coron amol heart disea se: <100 mg/dL : Optim al 100-1 29 mg/dL : Near or above optim al 130-1 59 mg/dL : Borde rline high 160-1 89 mg/dL : High >190 mg/dL : Very High Not Available [facility] ([facility]) [address] [place], [address], 02/02/2021 11:05:04 02/03/20 21 02/02/2021 LIPID PANEL cardiac risk ratio 4.4 3.3-4. 4 Not Available [facility] ([facility]) [address] [place], [address], 02/02/2021 11:05:04 02/03/20 21 02/02/2021 25-OH VITAM IN D 25 oh vit D (total) 34 NG/mL 30-60 Not Available [facility] ([facility] [address] [place], [address], 02/02/2021 11:16:20 02/03/20 21 02/02/2021 COMPR EHENS FORTINO METAB OLIC PANEL sodium 138 mmol/ L 133-14 6 Not Available [facility] ([facility] [address] [place], [address], 02/02/2021 11:26:12 02/03/20 21 02/02/2021 COMPR EHENS FORTINO METAB OLIC PANEL potassium 5.2 mmol/ L 3.3-5. 1 high Not Available [facility] ([facility] [address] [place], [address], 02/02/2021 11:26:12 02/03/20 21 02/02/2021 COMPR EHENS FORTINO METAB OLIC PANEL chloride 107 mmol/ L 96-108 Not Available [facility] ([facility]) [address] [place], [address], 02/02/2021 11:26:12 02/03/20 21 02/02/2021 COMPR EHENS FORTINO METAB OLIC PANEL CO2 21 mmol/ L 21-35 Not Available [facility] ([facility] [address] [place], [address], 02/02/2021 11:26:12 02/03/20 21 02/02/2021 COMPR EHENS FORITNO METAB OLIC PANEL BUN 28 mg/dL 6-19 high Not Available [facility] ([facility]) [address] [place], [address], 02/02/2021 11:26:12 02/03/20 21 02/02/2021 COMPR EHENS FORTINO METAB OLIC PANEL creatinine 1.50 mg/dL 0.5-1. 5 Not Available [facility] ([facility] [address] [place], [address], 02/02/2021 11:26:12 02/03/20 21 02/02/2021 COMPR EHENS FORTINO METAB OLIC PANEL glucose 117 mg/dL 70-99 high Not Available [facility] ([facility]) [address] [place], [address], 02/02/2021 11:26:12 02/03/20 21 02/02/2021 COMPR EHENS FORTINO METAB OLIC PANEL albumin 4.3 g/dL 3.9-4. 8 Not Available [facility] ([facility]) [address] [place], [address], 02/02/2021 11:26:12 02/03/20 21 02/02/2021 COMPR EHENS FORTINO METAB OLIC PANEL total protein 7.2 g/dL 6.5-8. 0 Not Available [facility] (Out[facility]) [address] [place], [address], 02/02/2021 11:26:12 02/03/20 21 02/02/2021 COMPR EHENS FORTINO METAB OLIC PANEL calcium 11.1 mg/dL 8.4-10 .3 high Not Available [facility] (Out[facility]) [address] [place], [address], 02/02/2021 11:26:12 02/03/20 21 02/02/2021 COMPR EHENS FORTINO METAB OLIC PANEL alkaline phosphatase 56 U/L 39-117 Not Available [facility] (Outpatient) [address] [place], [address], 02/02/2021 11:26:12 02/03/20 21 02/02/2021 COMPR EHENS FORTINO METAB OLIC PANEL total bilirubin 0.3 mg/dL 0.0-1. 2 Not Available [facility] (Out[facility]) [address] [place], [address], 02/02/2021 11:26:12 02/03/20 21 02/02/2021 COMPR EHENS FORTINO METAB OLIC PANEL AST 14 U/L 0-37 Not Available [facility] (Out[facility]) [address] [place], [address], 02/02/2021 11:26:12 02/03/20 21 02/02/2021 COMPR EHENS FORTINO METAB OLIC PANEL ALT 8 U/L 0-40 Not Available [facility] (Out[facility]) [address] [place], [address], 02/02/2021 11:26:12 02/03/20 21 02/02/2021 COMPR EHENS FORTINO METAB OLIC PANEL globulin 2.9 g/dL 1-4.8 Not Available [facility] ([facility]) [address] [place], [address], 02/02/2021 11:26:12 02/03/20 21 02/02/2021 COMPR EHENS FORTINO METAB OLIC PANEL eGFR 33 mL/mi n/1.7 3m2 >59 low Estim ated glome rular filtr ation rate calcu lated using the CKD-E PI equat ion. Not Available [facility] (Out[facility]) [address] [place], [address], 02/02/2021 11:26:12 02/03/20 21 02/02/2021 COMPR EHENS FORTINO METAB OLIC PANEL anion gap 15 mmol/ L 10-20 Not Available [facility] (Out[facility]) [address] [place], [address], 02/02/2021 11:26:12 02/03/20 21 02/02/2021 FREE T4 free T4 1.4 NG/dL 0.9-1. 7 Not Available [facility] (Out[facility]) [address] [place], [address], 02/02/2021 11:26:14 02/03/20 21 02/02/2021 TSH TSH 0.91 uIU/m L 0.27-4 .20 Not Available [facility] ([facility]) [address] [place], [address], 02/02/2021 11:26:15 02/03/20 21 02/02/2021 MICRO ALBUM IN/CR EATIN INE RATIO , RANDO M URINE urine microalbumin <1.2 mg/dL 0-2.3 Not Available [facility] (Outpatient) [address] [place], [address], 02/02/2021 17:50:10 02/03/20 21 02/02/2021 MICRO ALBUM IN/CR EATIN INE RATIO , RANDO M URINE urine creatinine 97 mg/dL Not Available [facility] (Outpatient) [address] [place], [address], 02/02/2021 17:50:10 02/03/20 21 02/02/2021 MICRO ALBUM IN/CR EATIN INE RATIO , RANDO M URINE microalb/cre ratio NOT CALCUL ATED mg/g_ cre 0-20 due to Micro album in <1.2 Not Available [facility] (Out[facility]) [address] [place], [address], 02/02/2021 17:50:10 10/14/19 19 bone densi ty [...] Details Recorded Time Disorder of thyroid gland 40116766 Active [address] [facility] 8 08:28:01 Disorder of vitamin D 443859734 Active [address] [facility] 8 08:28:14 Hypercalc emia 36828463 [facility] 08:28:28 Type 2 diabetes mellitus without complicat ion 976271401 Active [address] [facility] 8 08:29:28 Chronic kidney disease stage 3 807999886 Active 08/2020 lab results Lynda Randall LPN [facility], [facility] 1 10:07:59 Chronic kidney disease due to type 2 diabetes mellitus 154495649931 Active 2020 LABS 02/02/2021 GFR [address] [facility] 1 09:47:09 Morbid obesity 150983670 Active 2021 BMI > or = 35 plus diagnosis of diabetes. Brenda [place] [facility] 2 10:11:12 Problem Notes None recorded. Procedures Surgical History Date Name Laterality Status Provider Name and Address Organization Details Recorded Time 8 Unlisted px accessory sinus completed Alla Sanjeevphillip [facility] 03/27/2019 10:35:47 Imaging Results Imaging Date Name [...] Name and Address Organization Details Recorded Time 205317 Product containin g angiotens in-conver ting enzyme inhibitor (product) medicatio n Not available Not available Not available 06/16/2024 94534 009 SNOMED throa t swell ing Sangeetha Ceja LPN [facility] 5 11:32:28 Medications Name Sig Start [...] Updated DateTime 8 156.21 cm 38.3 kg/m2 82547.3 1 g 72 /min 142 mm[Hg] 73 mm[Hg] Mustapha Breen [facility] 8 09:44:24 Date Recorded Body height Body mass index (BMI) Body weight Heart rate Systolic blood pressure Diastolic blood pressure Provider Name and Address Organization Details Last Updated DateTime 9 158.12 cm 38 kg/m2 12656.5 2 g 64 /min 122 mm[Hg] 64 mm[Hg] Alla Emerson [facility] 9 10:38:49 Date Recorded Body weight Body mass index (BMI) Body height Heart rate Systolic blood pressure Diastolic blood pressure Provider Name and Address Organization Details Last Updated DateTime 1 53402.8 1 g 36.8 kg/m2 158.12 cm 86 /min 118 mm[Hg] 72 mm[Hg] Sir Leahy RN [facility] 1 09:57:09 Date Recorded Body weight Body mass index (BMI) Body height Heart rate Systolic blood pressure Diastolic blood pressure Provider Name and Address Organization Details Last Updated DateTime 5 12112.9 1 g 36.7 kg/m2 157.48 cm 92 /min 129 mm[Hg] 68 mm[Hg] Sangeetha Ceja LPN [facility] 5 11:42:20 Social History Question Answer Notes LastModified by Organizat ion Details LastModified Time Tobacco Smoking Status Never Smoker Elezaar heck [facility] 12/12/2012 08:23:45 What Is Your Level Of Alcohol Consumption? Occasional Rare [email or web address] Information not available 06/16/2024 Which Illicit Or Recreational Drugs Have You Used? 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 03/05/2013 10:39:33 Influenza, split virus, quadrivalent, preservative 0 completed Gayle Aguila LPN [facility], [facility] 04/01/2020 08:57:48 COVID-19, mRNA, LNP-S, PF, 30 mcg/0.3 mL dose 1 completed Sri Leahy RN null, [facility] 04/05/2021 09:50:59 COVID-19, mRNA, LNP-S, PF, 30 mcg/0.3 mL dose 1 completed Sri Leahy RN null, [facility] 04/05/2021 09:51:10 Influenza, split virus, quadrivalent, preservative 1 completed Sri Leahy RN null, [facility] 04/05/2021 09:51:28 Past Encounters Encounter ID Performer Location Encounter Start Date Encounter Closed Date Diagnosis/Indication Diagnosis SNOMED-CT Code Diagnosis ICD10 Code Diagnosis Note [id number] Sharron Benito [facility], [address] [address] 12/12/2012 08:00:19 12/12/2012 09:21:36 Hypercalcemia 86944094 Pt with elevated Calcium in 11 in [...] age over 50. Pt to go to [facility] [address], givencopy of lab slip at time of visit. BMD 08/15/12 [facility] spine-0.4, hips 01.8 neck -1.3 total, forearm +0.14 Jun 2012 Ca 11 [id number] Nalini Garay LPN [facility], [address] [address] 01/08/2013 15:42:16 01/08/2013 17:00:59 Disorder of thyroid gland 22391720 TSh 11 and has had TSH of 4.8 in the past. Given symptoms, christianai dejon that she do trial of T4 and will have her take 25 mcg of T4 and repeat labs again in 6-8 weeks. Starting with lower than normal dose since FT4 is 0.97. S/e of hyperthyro idism discussed but do not expect her to have these symtpoms. When repeats labs would like to go to [address] since open Saturday AM and pt lives near there. Disorder of vitamin D 891628255 Vit D 18 and PTH slighlty elevated at 75. Caclium stable at 11.0 to 11.2 with normal/low urinary calcium. Most consistent with [facility]. Will try to slowly replete D and see if PTH corrects and aches resolve. Will have her take 3000 units of Vit D daily and repeat labs when repeats TSH and FT4 in 6 weeks. Hypercalcemia 09588115 s ee above. Will continue to monitor Calcium levels. 24 hour urine studies most consistent ly with FHH. Explained to pt that people with FHH have higher set points for calcium. If correction of D and TSH does not alleviate symptoms, and calcium remain elevated then will reevaluate at that time. [id number] Nalini Garay LPN [facility], [address] [address] 03/05/2013 10:31:44 03/05/2013 11:40:00 Disorder of thyroid gland 84507986 TSH was 11 and is now in [...] repeats labs would like to go to [address] since open Saturday AM and pt lives near there. Disorder of vitamin D 705752317 Vit D is now 26. Ca normal at 10.6, Will have her increase Vit D to 4000 units to get level over 30 and continue this through the winter. Will continue to monitor Ca in renal panel. Labs q 3 months and f/u in 6 months. repeat labs with next TSH in 3 months. Hypercalcemia 03526591 C a normal at 10.6 . see above. Hx=24 hour urine studies most consistent ly with [facility]. If correction of D and TSH does not alleviate symptoms, and calcium remain elevated then will reevaluate at that time. Left bundl e branch block 40503087 TSH improved to 4 from 11. Do not think T4 could be reason for extra beat pt is feeling. Pt to have f/u with Dr. Estevez in a few weeks and will discuss with him as well. [id number] [facility], [address] [address] 09/03/2013 10:31:16 09/03/2013 11:33:21 Disorder of thyroid gland 96535330 Is seeing Dr.Kirchof rojas in a few weeks to have f/u on her LBBB (preexisti ng condition) . Pt had echo in November and told has 20-30% blockage. Pt states on ASA and statin for this. labs would like to go to [address] since open Saturday AM and pt lives near there. Disorder of vitamin D 096835694 Hypercalcemia 00026465 H x=24 hour urine studies most consistent ly with [facility]. If correction of D and TSH does not alleviate symptoms, and calcium remain elevated then will reevaluate at that time. Left bundl e branch block [id number] contf/u with Dr. Estevez . [id number] [facility], [address] [address] 03/04/2014 14:26:06 03/04/2014 15:23:06 Disorder of thyroid gland 63890996 Disorder of vitamin D 115470832 Hypercalcemia 10576762 H x=24 hour urine studies most consistent ly with [facility]. If correction of D and TSH does not alleviate symptoms, and calcium remain elevated then will reevaluate at that time. Left bundl e branch block [id number] contf/u with Dr. Estevez . [id number] Endocrino logy, [address] [address] 09/21/2014 09:20:13 09/21/2014 10:22:15 Disorder of thyroid gland [id number] TSH was 11 in 2012 and pt started on T4. TSH stable and to goal. Cont on 50 mcg daily of T4. f/u in 12 months labs q 6 months. Call if symptoms in the meantime and can decide about drawing labs sooner than recommende d date. Lab pt prefers is [address] since open Saturday AM and pt lives near there. Disorder of vitamin D [id number] Vit D replete at 47 and Ca normal at 10.6,cont Vit D to 4000 units. Labs q 6 months and f/u yearly. Hypercalcemia [id number] C a normal at 10.6 . see above. Hx=24 hour urine studies most consistent ly with FHH. If correction of D and TSH does not alleviate symptoms, and calcium remain elevated then will reevaluate at that time. Left bundl e branch block [id number] Follows with Dr.Kirchof rojas --hx of LBBB (preexisti ng condition) . Pt had echo in November 2013 and told has 20-30% blockage. Pt states on ASA and statin for this. last appt May 2014 when had pacer replaced. F/u with Dr. Estevez . [id number] Maryuri Torres PA-C Endocrino logy, [address] [address] 09/20/2015 09:34:26 09/20/2015 10:19:42 Disorder of thyroid gland 53824339 E07.9 TSH 4 and pt typically in 2's. Will try 75 mcg daily and repeat labs in 8 weeks. Will contact her if dose needs further adjustment after labs. Labs q 4 months after dose stable. f/u in 12 months. Call if symptoms in the meantime and can decide about drawing labs sooner than recommende d date. Lab pt prefers is [address] since open Saturday AM and pt lives near there. Disorder of vitamin D 38 4436883 E56.9 Vit D remaining replete Ca stable at 10.6. Cont Vit D to 4000 units. Labs q 6 months (March and September) and f/u yearly. Hypercalcemia 22619826 E 83.52 PTH normal. Ca normal at 10.6 . Cont to monitor q 6 months (March and September). Hx=24 hour urine studies most consistent ly with FHH. If correction of D and TSH does not alleviate symptoms, and calcium remain elevated then will reevaluate at that time. [id number] Maryuri Torres PA-C Endocrino logy, [address] [address] 09/20/2016 09:44:08 09/20/2016 10:26:42 Disorder of thyroid gland 29873757 E07.21 Jun 2016 labs to goal on 75 mcg of T4 daily. Cont this dose with labs q 6 months. F/u in 12 months. Lab pt prefers is [address] since open Saturday AM and pt lives near there. Disorder of vitamin D 38 8931656 E56.9 see below. Cont Vit D to 4000 units. Hypercalcemia 55593610 E 83.52 PTH had been normal in [...] Type 2 chanel betes mellitus without complication 244756640 E11.9 Managed by PCP and per pt A1c under 7. [id number] Maryuri Torres PA-C Endocrino logy, [address] [address] 06/10/2017 09:27:23 06/10/2017 10:47:39 Disorder of thyroid gland 54551574 E07.21 Mar 2017 labs to goal on 75 mcg of T4 daily. Cont this dose with labs q 6 months. Keep f/u in September. Lab pt prefers is [address] since open Saturday AM and pt lives near there. Disorder of vitamin D 38 5947956 E56.9 see below. Cont Vit D to 4000 units but want to update. 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 If D remaining high will reduce D level. May be able to lower D level. Keep appt in September. Hypercalcemia 51655906 E 83.52 PTH had been normal in setting of normal Ca and Vit D. Never got repeat Nov lab from [facility], looking at results in [facility] Ca [...] Type 2 chanel betes mellitus without complication 033202592 E11.9 Managed by PCP and per pt A1c under 7. [id number] Maryuri Torres PA-C Endocrino logy, [address] [address] 09/19/2017 09:24:45 09/19/2017 10:10:11 Disorder of thyroid gland 14293852 E07.19 August 2017 labs to goal.Cont levothyrox ine 75 mcg daily Labs q 6 months. Keep f/u in 6 months. Lab pt prefers is [address] since open Saturday AM and pt lives near there. Disorder of vitamin D 38 4914099 E56.9 Vit D was in 80's so dropped to 2000 units daily. Current testing remaining in 60's. With summer coming will have her take 1000 units daily and then in FAll (January - July) Take 2000 units in the winter. Hypercalcemia 69891231 E 83.52 PTH rising in setting of [...] Type 2 chanel betes mellitus without complication 383541868 E11.9 Managed by PCP and per pt A1c under 7 on low dose metformin ACR negative as well as of September 2017 testing with PCP. [id number] Maryuri Torres PA-C Endocrino logy, [address] [address] 03/28/2018 09:34:36 03/28/2018 10:29:32 Disorder of thyroid gland 24652147 E07.9 TSH normal Feb TSH 0.81 FT4 1.5 Cont levothyrox ine 75 mcg daily Labs q 6 months. Keep f/u in 6 months. Lab pt prefers is [address] since open Saturday AM and pt lives near there. Disorder of vitamin D 38 9206923 E56.9 03/12/18 Vit D still > 60. She had increased to 2000 units in February but do not have to increase. Will have her take 1000 units daily and check again in May 2018. Hypercalcemia 54722432 E 83.52 PTH remains high in setting [...] time and can monitor. She remains on [address]. Discussed importance of good hydration for both [...] Type 2 chanel betes mellitus without complication 716427715 E11.9 Managed by PCP and per pt A1c under 7 on low dose metformin. Per pt a1c 6.1 at last testing. [id number] Jamaal Ham MD Endocrino logy, [address] [address] 03/27/2019 10:18:13 03/27/2019 11:30:27 Type 2 diabetes mellitus without complication 306593864 E11.9 On metformin 500 mg daily- decreased by PCP Kristine because of increased creatinine .Doing well. With PCP's usp , pt. asking for more diabetes care here. Disorder of vitamin D 38 3071504 E55.9 42.2 (03/31); had been low in past but not in past years. Hypercalcemia 53688878 E 83.52 FHH as evidenccd by low urinary calcium (41 mg/24hr in 10/28) and high serum calcium.Cr eat= 1.5 (lately 1.3-1.6); Ca= 10.9 (was 10.8) ; Phos= 3.2 Hypothyroidism 28127281 E03.9 On 75 mcg levothyrox ine.Doing well clinically . [id number] Jamaal Ham MD Endocrino logy, [address] [address] 04/01/2020 08:45:09 04/01/2020 20:00:33 Type 2 diabetes mellitus without complication 774202740 E11.9 On metformin 500 mg daily- decreased by PCP Kristine because of increased creatinine .Doing well.a1c in 6s. no evidence of complicati ons at present. Disorder of vitamin D 38 3902149 E55.9 37 (01/30); was 42.2 (03/31); had been low in past but not in past years.Take s 1000 units daily. Hypercalcemia 08945897 E 83.52 FHH as evidenced by low urinary calcium (41 mg/24hr in 10/28) and high serum calcium.Cr eat= 1.5 (lately 1.3-1.6); Ca= 10.9 (was 10.8) ; Phos= 3.2 Hypothyroidism 47103005 E03.9 On 75 mcg levothyrox ine.Doing well clinically . Dyslipidem ia due to type 2 diabetes mellitus 5918751555 02 E78.5 2020: 163/289/36 /69;With high TG and low HDL.Encour age more activity.I f remains high, would consider either change to atorva, rosuva or possible addition of Vascepa. [id number] Jamaal Ham MD Endocrino logy, [address] [address] 04/05/2021 09:42:53 04/07/2021 06:32:39 Type 2 diabetes mellitus without complication 866201659 E11.9 On metformin 500 mg daily- decreased by PCP (Valarie Abad). Raeion/Riddhi reyDoing well.a1c in 6s. no evidence of complicati ons at present. Disorder of vitamin D 38 2105478 E55.9 34 (01/31); was 37 (01/30); was 42.2 (03/31); had been low in past but not in past years.Take s 1000 units daily. Hypercalcemia 19688219 E 83.52 FHH as evidenced by low urinary calcium (41 mg/24hr in 10/28) and high serum calcium.Cr eat= 1.5 (lately 1.3-1.6); Ca= 10.9 (was 10.8) ; Phos= 3.2 Hypothyroidism 42467172 E03.9 On 75 mcg levothyrox ine.Doing well clinically . Re-order levothyrox ine today with refill x 6 but will ask pt. to have PCP refill future Rx's. Dyslipidem ia due to type 2 diabetes mellitus 6356874551 02 E78.5 2020: 159-247 (were 164)-36- 2020: 163/289/; With high TG and low HDL.Encour age more activity.I f remains high, would consider either change to atorva, rosuva or possible addition of Vascepa. [id number] Jamaal Ham MD Endocrino logy, [facility] [address] [place] [address] 06/16/2024 10:55:56 06/29/2024 07:56:11 Type 2 diabetes mellitus without complication 983396712 E11.9 On metformin 500 mg daily- decreased by PCP (Valarie Abad). Tasha/Riddhi reyDoing well.a1c in 6s. Last was 6.9 in 2023.No evidence of complicati ons at present. Hypercalcemia 85544355 E 83.52 UNCONTROLL EDThought to be FHH in past as evidenced by low urinary calcium (41 mg/24hr in 10/28) and high serum calcium.cr eat/gfr= 1.4/37 ( 3/24)Creat = 1.5 (01/31- lately 1.3-1.6); Ca= 10.7 (05/05); was 10.1 (04/05); was 11.1 (03/05); was 11.2 (03/05); was 11.4 (01/03); was 11.6 (01/03);Liliana ues were normal in 2023: 10.1 (09/03); was 10.0 (08/03); was 9.8 (08/03) was 10.1 (08/03); was 10.6 (08/03); was 11.0 (07/06) PTH= 200 (06/06); was 217 (05/05); was 225 (04/05); was 227 (04/05); was 50 (03/05); was 187 (03/05); was 202 (01/03); D= 30 (01/03); 07/07: Has high PTH with high Calcium.Sequeira d 24 hour urine in 2017 that showed low Ca/creat clearance (0.0046) and low TRP (80.2).- Nuclear scan finding of likely parathyroi d nodule is of concern. Suggest:- Repeat urinary studies.- check CASR gene mutation. Hypothyroidism 66351078 E03.9 On 75 mcg levothyrox ine.Doing well clinically . Dyslipidem ia due to type 2 diabetes mellitus 3146798279 02 E78.5 08/03: - 144/207/40 /63 on rosuva 5mg.2020: 159-247 (were 164)-36-74 2020: 163/289/36 /69; 07/07: Some improvemen t from previous values with high TG and low HDL. Health Concerns Section Related Observation LastModified by Organization Detai ls LastModified Time None Recorded Concern Status LastModified by Organization Details LastModified Time None Recorded Advance Directives Directive None Recorded Payers Encounter Date Sequence Insurance Name Policy Number Policy Lara Covered Member ID Lara Member ID Guarantor Name 03/28/2018 1 [place] [employer] Annetta Pendleton McElwey [id number] Annetta Whitlock McEsusi 03/28/2018 2 [place] [id number] Annetta Chinyere McElwey [id number] Annetta Wray McElwey 03/27/2019 1 [place] Annetta E McElwey [id number] Annetta Chinyere McElwey 03/27/2019 2 [place] [id number] Annetta Chinyere McElwey [id number] Annetta Wray McElwey 04/01/2020 1 [place] [employer] Annetta E McElwey [id number] Annetta Chinyere McElwey 04/01/2020 2 [place] [id number] Annetta Wray McElwey [id number] Annetta Chinyere McElwey 04/05/2021 1 [place] [employer] Annetta E McElwey [id number] Annetta Wray McElwey 04/05/2021 2 [place] [id number] Annetta Wray McElwey [id number] Annetta Wray McElwey 06/16/2024 1 [place] [employer] [place] Annetta E McElwey [id number] Annetta Chinyere McElwey 06/16/2024 1 [facility] [id number] Annetta E McElwey [id number] Annetta Chinyere McElwey Notes Date Note Type [...] a spiked to 11.2 on 3 occasions; generated 2013, 04/02/2017, and 10/11/2017. Her last 24 [...] systems as below. This is dictated using Doctor[employer] voice dictation software. Maryuri Torres PA-C [address] [place] [address], [phone], [facility] 03/31/2018 13:40:03 9 text/html DiabetesReported bypatient.Labs:last Hemoglobin [...] stones. BMD: Done at [facility]. 2018. ROS: No fevers or chills.Had sinus fungal infection in 2018.Can be SOB if rushing and gets anxiousNo muscle aches or pains. No cramping.No dizziness with standing in AM. No bruises or rashes. ` Jamaal Ham MD [address] [place] [address], [phone], [facility] 03/30/2019 15:28:25 0 text/html DiabetesReported bypatient.Labs:last Hemoglobin [...] Hypoglycemia Symptomsfrequency of hypoglycemic episodesinfrequently (metformin only.); [place] funny (Shivering in middle of night- trembling) one night- BG was 120. Lasted over an hour- went to chair and dozed on/off for a while.Notes:04/01: 163/289/; on prava. discussed impact of exercise and [...] secure telehealth platform due to the COVID - pandemic. Patient understands this is a scheduled visit and the usual procedures with regard to billing and confidentiality apply. Patient was notified that the provider location is [facility] Patient location: home During the visit the [...] kidney stones.BMD: Done at [facility]. 2018. ROS: No fevers or chills.Had sinus fungal infection in 2018.Can cough or SOB (besides described elsewhere with activity or stress)No muscle pains. No cramping. Gets leg cramps- has tonic water nightly. No dizziness with standing in AM. No bruises, itching or rashes. Jamaal Ham MD [address] [place] [address], [phone], [facility] 04/01/2020 09:48:45 1 text/html DiabetesReported bypatient.Labs:last Hemoglobin [...] artery disease s/p pacemaker; no retinopathy ([facility])); no numbness of feet;kidney disease chronic renal [...] tracings periodically.Will be seeing new CARDS in [facility].But also has had nuclear ETT at [facility]. PCP- Valarie Abad.CARDIAC: Switching to [place] (Subramarian)- [...] of hypercalcemia thought to be due to H.2018: urine Ca= LOW= 3.9 mg/dL (31 mg/24 hrs)No hx of kidney stones.BMD: Done at [facility]. 2018. ROS:No fevers or chills.Had sinus fungal infection in 2018.Can cough or SOB (besides described elsewhere with activity or stress)No muscle pains. No cramping. Gets leg cramps- has tonic water nightly. No dizziness with standing in AM.No bruises, itching or rashes. Jamaal Ham MD [address] [place] [address], [phone], [facility] 04/05/2021 22:06:34 5 text/html DiabetesReported bypatient.Labs:last Hemoglobin A1C: 6s at goal (6.9 ([place] in 2023); was 6.1 (01/31); was 6.2 (08/31); was 6.1 (01/30)); microalbumin/creatinine ratio: 2020 normal; serum creatinine: mildly elevated but stable (1.5 (01/31); generally 1.3-1.6) Diabetes Medications:Biguanides: Metformin (500 daily (recent decrease due to rise in creatinine)) Renal/Hypertension (HTN) Medsamlodipine (10). Lipid Medications:Statins: Rosuvastatin (5mg) Associated Symptoms:no polyuria; no nocturia (1x;); WEIGHT: 198-205 (07/07); was 210 at home. Had been around 206. was 212. Cardiac / Eye / Podiatric / Renal / Vascular Symptomscoronary artery disease s/p pacemaker; no retinopathy (([facility] )); no numbness of feet;kidney disease chronic renal insufficiency Hypoglycemia Symptomsfrequency of hypoglycemic episodesinfrequently (metformin only.); Occ sx of shaking but if checks, hasn't seen low value. Nothing below 90-100.Notes: 01/31:159-247 (were 164)-36-: 163/289//; on prava.discussed impact of exercise. BG fastin-146 (04/02); was 116-145 (04/01) Pt. feels 140s if does NOT have snack night before. ThyroidReported bypatient.Previous Evaluation:TSH: (0.91 (01/31); was 1.88 (01/30); was 1.12; was 0.8 (02/27)); free T4: (1.4 (01/31); was 1.1 (01/30); was 1.5 (.)) Treatment:levoxyl, dose: 75 mcg, frequency: (takes in AM.); *30-45 minutes between pill and breakfast. * Constitutional:no heat intolerance;cold intolerance(mostly if less than 70 degrees) Eyes:no dry eyes; No blurry vision Neck:no difficulty swallowing; no masses Heart:no rapid heart rate; no palpitations; no chest pain; no tightness or pressure; Uses pacemaker 90% of time. GI:no constipation; no diarrhea Neurological:no tremor; no insomnia (better with CPAP);anxiety(occasional) Notes: 04/02: Ongoing sx of SOB with stress or doing a lot of movement (e.g, making supper with multiple courses).Emotionally stresses too.Checks in by phone with tracings periodically.Will be seeing new CARDS in [place].But also has had nuclear ETT at [place]. Last seen in 2020.PCP- Valarie Abad.CARDIAC: Switching to [place] (Subramarian)- for pacer.RENAL is Arsen Villegas ([place])ENT: [place] T2DM, hypothyroidism and hypercalcemia (previously thought secondary to FHH). Follow-Up: disorder of thyroid glandFollow-Up: Type 2 diabetes mellitus without complicationFollow-Up: hypercalcemiaFollow-Up: disorder of vitamin DHypothyroidismLV 1LAst labs 08/03 added to chart last A1C- 6.9 [facility] states has a adenoma on parathyroidChecks blood sugars daily FBS will write down Past MED HX:T2DM with CKD (GFR <45)HYPOTHYROIDHYPERCALCE JEREMÍAS (chronic- FHH)Pacemaker- replaced 2023 Other hx: migraines (none recently);Back pain- comes/goesHTN In 08/03: Allergic reaction- thought to be d/t benazepril. But had also eaten pickled beats- vertigo and vomited preceded throat swelling up.- told of nodule in lung- had PET and told it was OK but being monitored.- also had esophagitis/gastritis. had endocscopy. on omeprazole- doing OK. occ pressure in chest. Gas-X helps. ENT: told throat sx are from reflux. ([place])Gout: Takes prednisone 3-4 x per year (usually around 8 days; 40 mg then 20 mg then off). SOCIAL: Chair exercises in past07/07: no exercise. FAM Hx:04/01: Magalie on pump again; Grands are 11 years old. school from home. 2 other grandsons (one same age as girls) school [employer].04/02: Lynne?sister are 12 grandsons are 15/16 - has truck in pieces hoping to build07/07: Magalie (46)- doing OK. 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 Lyn[facility] ([facility] ) and Amara- ([email or web address])daughter (50)- Herman at [employer]. 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 U/S done at [place].Big concern: told of adenoma on parathyroid. Calciums in 11s. PTH in triple digits.On cinacalcet but hasn't impacted PTH. Not affecting Ca much. Makes her nauseated.Told it depletes Mg.Interested in surgery as option. seeing him next month.RENAL is Helenea([place]) Hx of hypercalcemia thought to be due to FHH. 2018: urine C was LOW= 3.9 mg/dL (31 mg/24 hrs)No hx of kidney stones.BMD: Done at [facility]. 2018. Ca= 10.7 (05/05); was 10.1 (04/05); was 11.1 (03/05); was 11.2 (03/05); was 11.4 (01/03); was 11.6 (01/03);Values were normal in 2023: 10.1 (09/03); was 10.0 (08/03); was 9.8 (08/03) was 10.1 (08/03); was 10.6 (08/03); was 11.0 (07/06)Older values: 11.1 (01/31); was 10.7 (08/31); was 11.2 (01/30); was 10.9 (06/01 and 03/31); was 10.8 (08/29); was 11.1 (07/01);Highest was 11.2 (2016) D= 30 (01/03); previously was 34 (01/31); was 37 (01/30) creat= 1.1 -1.4 (2023); high of 1.8 (08/03) and low of 1.04 (10/03);PAST: 1.5 (01/31); was 1.4 (08/31); was 1.5 (01/30); was 1.2 (06/01); was 1.5 (03/31); was 1.3 (08/29); was 1.6 (07/01) Albumin consistently normal.PTH= 200 (06/06); was 217 (05/05); was 225 (04/05); was 227 (04/05); was 50 (03/05); was 187 (03/05); was 202 (01/03);OLDER PTH values: 91 (09/27); was 74 (03/29); was 71 (09/26); was 83 (06/29); was 83 (06/29); was 61 (09/25) PTH scan (03/05): increased sestamibi activity adjacent to posterior aspect of right lower lobe PHOS (2.7-4.5): 3.5 (01/03); was 2.9 (10/03) MG= 1.6 (06/06); was 1.5 (06/06); was 1.4 (05/05); was 1.5 (05/05); was 1.8 (04/05); was 1.7 (03/05); was 1.8 (03/05 and 02/03) and 2.1 (01/03);Thought that Mg low (05/05) d/t cincacalcet. CALCULATIONS FROM PREVIOUS 24 HR URINE (2018)Creatinine Clearance................ ........................5 [id number]............... ......................... >80Phosphorus Clearance................ .....................11.5 [id number].................. ......................5 to 15Tubular Reabsorption of Phosphorus........80.1711 3095..................... ...................82-97% Calcium/Creatinine Clearance................ .........[id number]..... ......................... ........<0.01 C/W [facility] Ca/Creat clearance and TRP are c/w [facility]. KIDNEY STONES: NONEFRACTURES: NONEBONE PAIN: Sometimes- everything hurts.Told of FA[facility]- using CPAP since 02/03)-feels it's helping. not as tired in AM.SYMPTOMS OF IRRITABILITY: NONE per pt or . POLYURIA: Nocturia x1. No daytime polyuria.CONTSTIPATION: NONEIRREGULAR HEART RATE: has pacemaker. occ wave and feels lightheaded. seconds. uses pacemaker 90% of time. feels more lately than in past Hx of cancer/malignancy: NONE Calcium intake: NONEVitamin D intake: Was on but told to stop by renal- 1000 units/day ROS: see intakeNotable for:Fatigue:SOB: intermittent. can be with stress. also rushing around.Nausea: after eats. comes/goes. Pressure in abdomen.M/S sx: arthritic. Jamaal Ham MD [address] [place] [address], [place], [phone], [facility] 06/28/2024 14:21:00 OBGyn Episode No OBEpisode recorded.
--- OUTSIDE RECORDS SUMMARY | 2024-07-16 20:21 | XMS_ITS | Clinical Summary ---
Author Organization [facility] ity Address [address] [place] [address] Care Team Providers Care Rib Knitter Name Role Phone Unavailable Primary Care Provider [...]
--- OUTSIDE RECORDS SUMMARY | 2024-07-16 20:21 | XMS_ITS | Continuity of Care Document ---
Author Organization [facility], Endocrinology, [facility] Address [address] [place] [address] Care Team Providers Care Fireworks Inspector Name Role Phone JOANNE FITZGERALD OTHER JAMAAL HAM Prototype Fabricator JACOBO ABAD Primary Care Provider Assessment Encounter Date Assessment Date Assessment LastModified by Organization Details LastModified Time 06/16/2024 06/16/2024 T2DM on metformin 500 mg. [...] specialists, ER staff. Time spent: 54 (minutes) 2 new complaint of high PTH and high Ca. also CKD [email or web address] Not available 06/28/2024 14:20:00 Plan of Treatment Reminders Order Date Submit Date Provider Last Modified By Organization Details Last Modified Time Details Appointments Follow Up, 2024 02:40P Renee Ham MD Not available Not available Not available Lab renal function panel, serum 2024 02/04/ 025 [facility], [address], [place], [address], 07/10/2024 12:02:11 vitamin D, 25-hydrox y, total, serum 2024 025 [facility], [address], [place], [address], 07/10/2024 12:18:59 PTH (parathyr oid hormone), intact + calcium, serum or plasma 2024 025 [facility], [address], [place], [address], 06/16/2024 13:10:32 calcium, 24-hour urine 2024 025 [facility], [address], [place], [address], 07/10/2024 13:00:44 creatinin e, 24-hour urine 2024 025 [facility], [address], [place], [address], 07/10/2024 13:00:45 phosphoru s, 24-hour urine 2024 025 [facility], [address], [place], [address], 07/10/2024 13:00:48 volume, total, 24-hour urine 2024 025 [facility], [address], [place], [address], 06/16/2024 13:10:32 CASR gene full mutation analysis, blood or tissue 2024 025 [facility], [address], [place], [address], 06/30/2024 13:10:31 Referral None recorded. Procedures None recorded. Surgeries None recorded. Imaging None recorded. Medication Orders None recorded. Patient TargetsNo targets recorded. Patient Instructions Encounter Date Encounter Id Patient Instructions Last Modified By Organization Details Last Modified Time 06/16/2024 [id number] - Continue taking thyroid hormone every day [...] 12:52:34 20 minute slot after labs done (July 2024) [email or web address] Not available 06/16/2024 12:53:12 Reason for Referral None Reported. Problems Name Problem SNOMED Code Status Onset Date Resolution Date Notes Provider Name and Address Organization Details Recorded Time Disorder of thyroid gland 77483112 [facility] 2017 [facility] 08[facility]28:01 Disorder of vitamin D 527829462 Active 2017 [facility] 8 08:28:14 Hypercalc emia 37920315 Active 2017 [facility] 8 08:28:28 Type 2 diabetes mellitus without complicat ion 057033136 Active 2017 [facility] 8 08:29:28 Chronic kidney disease stage 3 529172753 Active 08/2020 lab results [place] Martin, [facility] 1 10:07:59 Chronic kidney disease due to type 2 diabetes mellitus 791822183202 Active 2020 [facility] 02/02/2021 GFR 33 Milana heck, [facility] 1 09:47:09 Morbid obesity 575173505 Active 2021 BMI > or = 35 plus diagnosis of diabetes. [place] Daily [facility] 2 10:11:12 Problem Notes None recorded. Procedures Surgical History Date Name Laterality Status Provider Name and Address Organization Details Recorded Time 8 Unlisted px accessory sinus completed Alla Emerson [facility] 03/27/2019 10:35:47 Imaging Results None recorded. Procedure Notes None recorded. Medical Equipment None Reported. Allergies Allergen ID Allergen Name Allergen Category Reaction Reaction Severity Criticality Documentation Date Start Date Code Code System Note Provider Name and Address Organization Details Recorded Time 423582 Product containin g angiotens in-conver ting enzyme inhibitor (product) medicatio n Not available Not available Not available 06/16/2024 96217 009 SNOMED throa t swell [place] Reich, [facility] 5 11:32:28 Medications Name Sig Start [...] completed Hold per summer pending labs per [place] Not Available Not Available Not Available Aleve 220 mg capsule active 2 a day, AM and PM Not Available Not Available Not Available Vitals Date Recorded Body weight Body mass index (BMI) Body height Heart rate Systolic blood pressure Diastolic blood pressure Provider Name and Address Organization Details Last Updated DateTime 5 99647.9 1 g 36.7 kg/m2 157.48 cm 92 /min 129 mm[Hg] 68 mm[Hg] Sangeetha Ceja LPN [facility] 5 11:42:20 Social History Question Answer Notes LastModified by Organizat ion Details LastModified Time Tobacco Smoking Status Never Smoker Eleazar heck [facility] 12/12/2012 08:23:45 What Is Your Level Of Alcohol Consumption? Occasional Rare [email or web address] Information not available 06/16/2024 Which Illicit Or Recreational Drugs Have You Used? 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 Obstetrics History GPAL:G 0 P 0 0 0 0 Immunizations Vaccine Type Date Status Note Provider Marc barth and Address Organization Details Recorded Time influenza, unspecified formulation 3 completed Jolie Lopez RN [facility] 03/05/2013 10:39:33 Influenza, split virus, [...] SNOMED-CT Code Diagnosis ICD10 Code Diagnosis Note [id number] Jamaal Ham MD Endocrino logy, [address] [address] 06/16/2024 10:55:56 06/29/2024 07:56:11 Type 2 diabetes mellitus without complication 283375029 E11.9 On metformin 500 mg daily- decreased by PCP (Valarie Abad). Hession/Riddhi reyDoing well.a1c in 6s. Last was 6.9 in 2023.No evidence of complicati ons at present. Hypercalcemia 08179265 E 83.52 UNCONTROLL EDThought to be [facility] in past as evidenced by low urinary calcium (41 mg/24hr in 10/28) and high serum calcium.cr eat/gfr= 1.4/37 ( 08/03)Creat = 1.5 (01/31- lately 1.3-1.6); Ca= 10.7 [...] urinary studies.- check CASR gene mutation. Hypothyroidism 78429784 E03.9 On 75 mcg levothyrox ine.Doing well clinically . Dyslipidem ia due to type 2 diabetes mellitus 7432921659 02 E78.5 08/03: - 144/207/40 /63 on [...] Member ID Lara Member ID Guarantor Name 06/16/2024 1 MEDICARE B-[place]: [employer]ATIONAL [employer] Annetta Hernandezlwey [id number] Annetta Zeeta McElskylery 06/16/2024 [address] [facility] [id number] 1 Annetta E McElwey [id number] Annetta Strickland Notes Date Note Type Note Provider Name and Address Organization Details Recorded Time 5 text/html DiabetesReported bypatient.Labs:last Hemoglobin A1C: 6s at goal (6.9 ([facility] in 2023); was 6.1 (01/31); was 6.2 [...] Symptomscoronary artery disease s/p pacemaker; no retinopathy (([facility] )); no numbness of feet;kidney disease [...] tracings periodically.Will be seeing new CARDS in [place].But also has had nuclear ETT at [facility]. Last seen in 2020.PCP- Valarie Abad.CARDIAC: Switching to [place] (Subramarian)- for pacer.RENAL is Arsen Villegas ([facility])ENT: Busekrorose T2DM, hypothyroidism and hypercalcemia (previously thought secondary to [facility]). Follow-Up: disorder of thyroid glandFollow-Up: Type 2 diabetes mellitus without complicationFollow-Up: hypercalcemiaFollow-Up: disorder of vitamin DHypothyroidismLV 1LAst labs 08/03 added to chart last A1C- 6.9 [facility] states has a adenoma on parathyroidChecks blood sugars daily FBS will write down Past MED HX:T2DM with CKD (GFR <45)HYPOTHYROIDHYPERCALCE FREDRICK (chronic- [facility])Pacemaker- replaced 2023 Other hx: migraines (none recently);Back [...] Magalie (46)- doing OK. 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 Lynne ([facility] ) and Amara- ([facility]daughter (50)- Herman at [employer]. 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 Calciums in 11s. PTH in triple digits.On cinacalcet but hasn't impacted PTH. Not affecting Ca much. Makes her nauseated.Told it depletes Mg.Interested in surgery as option. seeing him next month.RENAL is Bakari([facility]) Hx of hypercalcemia thought to be due to [facility]. 2018: urine C was LOW= 3.9 mg/dL (31 mg/24 hrs)No hx of kidney stones.BMD: Done at [facility]. 2018. Ca= 10.7 (05/05); was 10.1 (04/05); [...] cincacalcet. CALCULATIONS FROM PREVIOUS 24 HR URINE (2017)Creatinine Clearance................ ........................5 8.03365464............... ......................... >80Phosphorus Clearance................ .....................11.5 7174018.................. ......................5 to 15Tubular Reabsorption of Phosphorus........80.1711 3095..................... ...................82-97% Calcium/Creatinine Clearance................ .........0.176071892..... ......................... ........<0.01 C/W FHHLow Ca/Creat clearance and TRP are c/w [facility]. KIDNEY STONES: NONEFRACTURES: NONEBONE PAIN: Sometimes- [...] in abdomen.M/S sx: arthritic. Jamaal Ham MD [address] [place] [address], [id number], [facility] 06/28/2024 14:21:00 OBGyn Episode No OBEpisode recorded.
--- OUTSIDE RECORDS SUMMARY | 2024-07-16 20:21 | XMS_ITS | Encounter Summary ---
Author Organization [facility] Address [address] [facility] [address] [place] [address] Phone Care Team Providers Care Artificial Flowers Dyer Name Role Phone Carmita Dietz UNDERWATER PHOTOGRAPHER-C Primary Care Provider + Reason for Visit * Reason Comments Med Refill Encounter Details Date Type Department Care Team (Late st Contact Info) Description 02/27/2023 Refill [facility] [address] [place] [phone] Arsen Villegas MD Social History Tobacco Use [...] on filedocumented in this encounter Care Teams Artificial Flowers Dyer Relationship Specialty Start Date End Date Carmita Dietz NP-C [address], [address] [place] [address] PCP - General Nurse Practitioner 07/18/22 documented as of this encounter
--- NOTE | 2024-07-16 20:24 | PC.NURSE ---
Pt called her doctor while in the waiting room and came up with an outpt plan for her care Pt has made the decision to leave without completing treatment. Pt able to ambulate out of ED with daughter, advised we are here if anything changes.
== END 2024-07-16 20:26 | disposition left against medical advice (07) ==
PROVIDERS: Physician Assistant Medical; Emergency Provider Emergency Medicine; PCP Nurse Practitioner Primary Care
DX: E83.42 Hypomagnesemia (principal); R79.89 Other specified abnormal findings of blood chemistry; Z79.899 Other long term (current) drug therapy
CPT/HCPCS: 36415; 80048; 80061; 80076; 82306; 82607; 82746; 83036; 83735; 84207; 84443; 84450; 84460; 84550; 85025; 99281; 99283

== ENCOUNTER 2024-07-20 08:04 | Outpatient (REF) | payer MEDICARE, SELFPAY ==
--- OUTSIDE RECORDS SUMMARY | 2024-07-20 08:10 | XMS_ITS ---
Author Organization [facility] Address [address] [place] [address] Care Team Providers Care Protective Services Case Worker Name Role Phone Archie Finch MD Primary Care Provider Cash Casanova [phone] Allergies Allergen (clinical drug ingredient) Drug/Non Drug [...] Orally every 6 hrs Active Biotin Maximum 70967 MCG as directed Orally Active Cinacalcet HCl [...] W/U Status Risk Notes Problem Erosive esophagitis (26491359) Erosive esophagitis (K22.10) Active confirmed Problem Diaphragmatic hernia (58535761) Hernia, hiatal (K44.9) Active confirmed Vital Signs Blood pressure systolic 130 mm Hg 03/03/20 24 Blood pressure diastolic 74 mm Hg 024 Height 62.50 in 03/03/2024 Weight 197 lbs 03/03/2024 BMI 35.45 kg/m2 03/03/2024 Encounters Encounter Location Date Provider Diagnosis [facility] [address] [place] [address] 03/03/2024 Cash Mercado Erosive esophagitis K22.10 and [...] LULI DE LUNA EDOB:1945 (78 yo F)Acc No.[id number]:03/03/2024 Progress Notes Patient:?LULI DE LUNA Provider:?Cash Mercado MD :1945???Age:78 Y???Sex:Female D ate:03/03/2024 Address:[address] [place] [address], [facility] Pcp:Archie Finch MD Subjective: * Chief Complaints: [...] Screen?Points: 0, Interpretation: Negative.?Miscellaneous:?Marital status: . 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 ???Nonsmoker; no sig [...] as needed Orally every 6 hrsBiotin Maximum 63051 MCG Tablet Disintegrating as directed Orally Spironolactone [...] needed Orally every 6 hrsTaking Biotin Maximum 10124 MCG Tablet Disintegrating as directed Orally Taking [...] every morning.?? * Procedure Codes:?1036F TOBAC CO NON-WAIUF0138 BP SCR NOT PRFRM REC REASON NOS [...] Provider:?Cash Mercado MD Date:? 024 Generated for Printi ng/Opal/eTransmitting on:?07/20/2024 08:10 AM EDT History and Physical Notes * HPI (History [...]
--- OUTSIDE RECORDS SUMMARY | 2024-07-20 08:10 | XMS_ITS | Clinical Summary ---
Author Organization [facility] Address [address] [place] [address] Care Team Providers Care Polisher And Sander Name Role Phone Unavailable Primary Care Provider [...]
--- OUTSIDE RECORDS SUMMARY | 2024-07-20 08:10 | XMS_ITS ---
Author Organization [facility] Address [address] [place] [address] Care Team Providers Care Acting Instructor Name Role Phone Archie Finch MD Primary Care Provider Cash Casanova [phone] Encounters Encounter Location Date Provider Diagnosis [facility] [address] [place] [address] 03/15/2024 Cash Mercado Plan Of Treatment No Information Progress Notes * LULI DE LUNA EDOB:1945 (78 yo F)Acc No.[id number]:03/15/2024 Patient:?LULI DE LUNA :1945???Age:78 Y???Sex:Female Address:[address] [place] [address] * true * Date:? Generated for Nehemiah ashford/Opal/eTransmitting on:?07/20/2024 08:10 AM EDT
--- OUTSIDE RECORDS SUMMARY | 2024-07-20 08:10 | XMS_ITS | Encounter Summary ---
Author Organization [facility] Address [address] [facility] [address] [place] [address] Phone Care Team Providers Care Director Packaging Name Role Phone Carmita Dietz DIRECTOR ALUMNI RELATIONS-C Primary Care Provider + Reason for Visit * Reason Comments Med Refill Encounter Details Date Type Department Care Team (Late st Contact Info) Description 02/27/2023 Refill [facility] [address] [place] [phone] Arsen Villegas MD Social History Tobacco Use [...] on filedocumented in this encounter Care Teams Director Packaging Relationship Specialty Start Date End Date Carmita Dietz NP-C [address], [address] [place] [address] PCP - General Nurse Practitioner 07/18/22 documented as of this encounter
--- OUTSIDE RECORDS SUMMARY | 2024-07-20 08:10 | XMS_ITS ---
Author Organization [facility] Address [address] [place] [address] Care Team Providers Care Slp Teacher Name Role Phone Archie Finch MD Primary Care Provider Cash Casanova [phone] REASON FOR VISIT out of omeprazole requesting r/f Encounters Encounter Location Date Provider Diagnosis [facility] [address] [place] [phone] 03/26/2024 Cash Mercado Plan Of Treatment No Information Progress Notes * LULI DE LUNA EDOB:1945 (78 yo F)Acc No.[id number]:03/26/2024 Patient:?LULI DE LUNA :1945???Age:78 Y???Sex:Female Address:[address] [place] [address], [place] [address] * true * Date:? Generated for Printi dejon/Opal/eTransmitting on:?07/20/2024 08:10 AM EDT
--- OUTSIDE RECORDS SUMMARY | 2024-07-20 08:10 | XMS_ITS | Clinical Summary ---
Author Organization [facility] Address [address] [place] [address], [place] [address] Care Team Providers Care Classroom Technology Technician Name Role Phone Carmita Dietz MANAGER MEDICAL-C Primary Care Provider + Allergies No known [...] 1 (one) time each day Active Biotin 58806 MCG tablet dispersible Take by mouth Active [...] patient's age to complete this topic [place] [address] [facility] Care Teams Classroom Technology Technician Relationship Specialty Start Date End Date Carmita Dietz NP-C [address], [address] [place] [address] PCP - General Nurse Practitioner 07/18/22
--- OUTSIDE RECORDS SUMMARY | 2024-07-20 08:11 | XMS_ITS | Data Portability ---
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 JACOBO ABAD Primary Care Provider Assessment Encounter [...] Lab renal function panel, serum 2024 025 [facility], [address], [place], [address], 07/10/2024 12:02:11 vitamin D, 25-hydro xy, total, serum 2024 025 [facility], [address], [place], [address], 07/10/2024 12:18:59 PTH (parathy roid hormone) , intact + calcium, serum or plasma 2024 025 [facility], [address], [place], [address], 06/16/2024 13:10:32 calcium, 24-hour urine 2024 025 [facility], [address], [place], [address], 07/10/2024 13:00:44 creatini ne, 24-hour urine 2024 025 [facility], [address], [place], [address], 07/10/2024 13:00:45 phosphor us, 24-hour urine 2024 025 [facility], [address], [place], [address], 07/10/2024 13:00:48 volume, total, 24-hour urine 2024 025 [facility], [address], [place], [address], 06/16/2024 13:10:32 CASR gene full mutation analysis , blood or tissue 2024 025 [facility], [address], [place], [address], 06/30/2024 13:10:31 vitamin D, 25-hydro xy, total, serum 2019 021 [facility], [address], [place], [address], 02/02/2021 11:16:20 HbA1c (hemoglo bin A1c), blood 2019 020 [facility], [address], [place], [address], 09/02/2020 13:55:20 CMP, serum or plasma 2019 021 [facility], [address], [place], [address], 09/02/2020 11:43:26 CMP, serum or plasma 2020 021 [facility], [address], [place], [address], 02/02/2021 11:26:12 HbA1c (hemoglo bin A1c), blood 2020 021 [facility], [address], [place], [address], 02/02/2021 10:57:24 TSH, serum or plasma 2019 021 [facility], [address], [place], [address], 02/02/2021 11:26:16 T4, free, serum 2019 021 [facility], [address], [place], [address], 02/02/2021 11:26:14 HbA1c (hemoglo bin A1c), blood 2018 019 [facility], [address], [place], [address], 06/12/2019 15:32:59 CMP, serum or plasma 2018 019 [facility], [address], [place], [address], 06/12/2019 16:09:37 TSH, serum or plasma 2018 019 [facility], [address], [place], [address], 06/12/2019 16:09:40 T4, free, serum 2018 019 [facility], [address], [place], [address], 06/12/2019 16:09:39 vitamin D, 25-hydro xy, total, serum 2017 019 [facility], [address] [place] [address], [address], 06/27/2018 14:55:41 renal function panel, serum 2017 019 [facility], [address], [address], 02/02/2019 14:46:53 Referral None recorded . Procedures None recorded . Surgeries None recorded . Imaging None recorded . Medication Orders levothyr oxine 75 mcg tablet 2020 021 [id number], [address] [place], [address], 06/16/2024 11:33:34 levothyr oxine 75 mcg tablet 2017 018 [id number], [address] [place], [address], 06/16/2024 11:33:34 Patient TargetsNo targets recorded. Patient Instructions Encounter Date Encounter Id Patient Instructions Last Modified By Organization Details Last Modified Time 03/27/2019 [id number] - Get labs done beginning in May [...] feet [email or web address] Not available 03/27/2019 11:29:50 04/01/2020 [id number] - Get labs done beginning in May [...] PCP. [email or web address] Not available 04/01/2020 09:43:27 04/05/2021 [id number] - Continue taking thyroid hormone every day [...] [email or web address] Not availabl e 04/05/2021 22:02:24 06/16/2024 [id number] - Continue taking thyroid hormone every day [...] T4 1.5 NG/dL 0.9-1. 7 Not Available [facility] (Outpatient) [address] [place], [address], 03/12/2018 13:41:14 03/12/20 18 03/12/2018 lfts (hepa tic panel ) alkaline phosphatase 52 U/L 39-117 Not Available [facility] (Outpatient) [address] [place], [address], 03/12/2018 13:41:18 03/12/20 18 03/12/2018 lfts (hepa tic panel ) total bilirubin 0.3 mg/dL 0.0-1. 2 Not Available [facility] (Outpatient) [address] [place], [address], 03/12/2018 13:41:18 03/12/20 18 03/12/2018 lfts (hepa tic panel ) direct bilirubin <0.2 mg/dL 0-0.3 Not Available [facility] (Outpatient) [address] [place], [address], 03/12/2018 13:41:18 03/12/20 18 03/12/2018 lfts (hepa tic panel ) bilirubin (indirect) NOT CALCUL ATED mg/dL 0-1.5 Not Available [facility] (Outpatient) [address] [place], [address], 03/12/2018 13:41:18 03/12/20 18 03/12/2018 lfts (hepa tic panel ) AST 14 U/L 0-37 Not Available [facility] (Outpatient) [address] [place], [address], 03/12/2018 13:41:18 03/12/20 18 03/12/2018 lfts (hepa tic panel ) ALT 9 U/L 0-40 Not Available [facility] (Outpatient) [address] [place], [address], 03/12/2018 13:41:18 03/12/20 18 03/12/2018 lfts (hepa tic panel ) total protein 7.7 g/dL 6.5-8. 0 Not Available [facility] (Outpatient) [address] [place], [address], 03/12/2018 13:41:18 03/12/20 18 03/12/2018 lfts (hepa tic panel ) albumin 4.4 g/dL 3.9-4. 8 Not Available [facility] (Outpatient) [address] [place], [address], 03/12/2018 13:41:18 03/12/20 18 03/12/2018 lfts (hepa tic panel ) globulin 3.3 g/dL 1-4.8 Not Available [facility] (Outpatient) [address] [place] [address], [address], 03/12/2018 13:41:18 03/12/20 18 03/12/2018 lfts (hepa tic panel ) A/G ratio 1.33 ratio 1.00-4 .80 Not Available [facility] (Outpatient) [address] [place] [address], [address], 03/12/2018 13:41:18 03/12/20 18 03/12/2018 TSH, serum or plasm a TSH 0.81 uIU/m L 0.27-4 .20 Not Available [facility] (Outpatient) [address] [place] [address], [address], 03/12/2018 13:41:19 03/12/20 18 03/12/2018 vitam in D, 25-hy droxy , total , serum 25 oh vit D (total) >60 NG/mL 30-60 high Not Available [facility] (Outpatient) [address] [place] [address], [address], 03/12/2018 15:16:52 06/27/19 19 06/27/2018 vitam in D, 25-hy droxy , total , serum 25OH vitamin D 52.2 NG/mL (20-50 ) high Serum 25OHD : Great er than 50 ng/ml : linette garduno vitam in D. Refer ence: [facility] Data Brief : No.59 July: Vitam in D Statu s: Unite d State s: 2000- 2005 As of , Vitam in D, 25-Hy droxy assay has been simpson ed. In some [facility], the new assay may yield a highe [...] Go To The Location Of Their Choice, [id number] 06/27/2018 22:36:17 06/27/1906/27/2018 renal funct ion panel [...] Go To The Location Of Their Choice, [address] 06/27/2018 22:36:17 08/12/1908/11/2018 renal funct ion panel , serum sodium 140 mmol/ L 133-14 6 Not Available [facility] (Outpatient) [address] [place], [address], 08/11/2018 17:28:23 08/12/1908/11/2018 renal funct ion panel , serum potassium 4.9 mmol/ L 3.3-5. 1 Not Available [facility] (Outpatient) [address] [place], [address], 08/11/2018 17:28:23 08/12/1908/11/2018 renal funct ion panel , serum chloride 103 mmol/ L 96-108 Not Available [facility] (Outpatient) [address] [place], [address], 08/11/2018 17:28:23 08/12/19 19 08/11/2018 renal funct ion panel , serum CO2 23 mmol/ L 21-35 Not Available [facility] (Outpatient) [address] [place], [address], 08/11/2018 17:28:23 08/12/19 19 08/11/2018 renal funct ion panel , serum glucose 111 mg/dL 70-99 high Not Available [facility] (Outpatient) [address] [place], [address], 08/11/2018 17:28:23 08/12/19 19 08/11/2018 renal funct ion panel , serum BUN 20 mg/dL 6-19 high Not Available [facility] (Outpatient) [address] [place], [address], 08/11/2018 17:28:23 08/12/19 19 08/11/2018 renal funct ion panel , serum creatinine 1.30 mg/dL 0.5-1. 5 Not Available [facility] (Outpatient) [address] [place], [address], 08/11/2018 17:28:23 08/12/19 19 08/11/2018 renal funct ion panel , serum calcium 10.8 mg/dL 8.4-10 .3 high Not Available [facility] (Outpatient) [address] [place], [address], 08/11/2018 17:28:23 08/12/19 19 08/11/2018 renal funct ion panel , serum phosphorus 2.7 mg/dL 2.7-4. 5 Not Available [facility] (Outpatient) [address] [place], [address], 08/11/2018 17:28:23 08/12/19 19 08/11/2018 renal funct ion panel , serum albumin 4.5 g/dL 3.9-4. 8 Not Available [facility] (Outpatient) [address] [place], [address], 08/11/2018 17:28:23 08/12/19 19 08/11/2018 renal funct ion panel , serum eGFR 40 mL/mi n/1.7 3m2 >59 low If patie nt is black , multi ply resul t by 1.159 . Estim ated glome rular filtr ation rate calcu lated using the CKD-E PI equat ion. Not Available [facility] (Outpatient) [address] [place], [address], 08/11/2018 17:28:23 08/12/19 19 08/11/2018 renal funct ion panel , serum anion gap 19 mmol/ L 10-20 Not Available [facility] (Outpatient) [address] [place], [address], 08/11/2018 17:28:23 03/23/20 19 03/23/2019 vitam in D, 25-hy droxy , total , serum 25OH vitamin D 42.2 NG/mL (20-50 ) Serum 25OHD : 20 to 50 ng/mL : suffi cient in vitam in D. Refer ence: [facility] Data Brief : No.59 July: Vitam in D Statu s: Unite d State s: 2000- 2005 Not Available [facility] (Centralized Electronic Ordering - All Locations) Patient Can Go To The Location Of Their Choice, [id number] 03/23/2019 18:54:58 03/23/20 19 03/23/2019 renal funct ion panel , serum glucose 84 mg/dL (70-99 ) Not Available [facility] (Centralized Electronic Ordering - All Locations) Patient Can Go To The Location Of Their Choice, [id number] 03/23/2019 19:05:49 03/23/20 19 03/23/2019 renal funct ion panel , serum BUN 24 mg/dL (8-23) high Not Available [facility] (Centralized Electronic Ordering - All Locations) Patient Can Go To The Location Of Their Choice, [id number] 03/23/2019 19:05:49 03/23/20 19 03/23/2019 renal funct ion panel , serum creatinine 1.5 mg/dL (0.5-1 .0) high Not Available [facility] (Centralized Electronic Ordering - All Locations) Patient Can Go To The Location Of Their Choice, [id number] 03/23/2019 19:05:49 03/23/2003/23/2019 renal funct ion panel , serum sodium 141 mmol/ L (133-1 45) Not Available [facility] (Centralized Electronic Ordering - All Locations) Patient Can Go To The Location Of Their Choice, [id number] 03/23/2019 19:05:49 03/23/2003/23/2019 renal funct ion panel , serum potassium 4.9 mmol/ L (3.6-5 .2) Not Available [facility] (Centralized Electronic Ordering - All Locations) Patient Can Go To The Location Of Their Choice, [id number] 03/23/2019 19:05:49 03/23/2003/23/2019 renal funct ion panel , serum chloride 104 mmol/ L (98-10 7) Not Available [facility] (Centralized Electronic Ordering - All Locations) Patient Can Go To The Location Of Their Choice, [id number] 03/23/2019 19:05:49 03/23/2003/23/2019 renal funct ion panel , serum bicarbonate 25 mmol/ L (22-29 ) Not Available [facility] (Centralized Electronic Ordering - All Locations) Patient Can Go To The Location Of Their Choice, [id number] 03/23/2019 19:05:49 03/23/2003/23/2019 renal funct ion panel , serum anion gap 12 (4-17) Not Available [facility] (Centralized Electronic Ordering - All Locations) Patient Can Go To The Location Of Their Choice, [id number] 03/23/2019 19:05:49 03/23/2003/23/2019 renal funct ion panel , serum albumin 4.2 gm/dL (3.4-4 .8) Not Available [facility] (Centralized Electronic Ordering - All Locations) Patient Can Go To The Location Of Their Choice, [id number] 03/23/2019 19:05:49 03/23/2003/23/2019 renal funct ion panel , serum calcium 10.9 mg/dL (8.6-1 0.5) high Not Available [facility] (Centralized Electronic Ordering - All Locations) Patient Can Go To The Location Of Their Choice, [id number] 03/23/2019 19:05:49 03/23/2003/23/2019 renal funct ion panel , serum phosphorus 3.2 mg/dL (2.5-4 .5) Not Available [facility] (Centralized Electronic Ordering - All Locations) Patient Can Go To The Location Of Their Choice, [id number] 03/23/2019 19:05:49 03/23/2003/23/2019 renal funct ion panel [...] Go To The Location Of Their Choice, [id number] 03/23/2019 19:05:49 03/23/2003/23/2019 renal funct ion panel [...] Go To The Location Of Their Choice, [id number] 03/23/2019 19:05:49 03/23/2003/27/2019 TSH, serum or plasm a TSH 1.05 mIU/m L (0.40- 4.00) Not Available [facility] (Centralized Electronic Ordering - All Locations) Patient Can Go To The Location Of Their Choice, 03/27/2019 20:19:23 06/12/19 20 06/12/2019 HbA1c (hemo globi n A1c), blood hemoglobin A1C 6.3 % 4.3-5. 8 high Not Available [facility] (Outpatient) [address] [place], [address], 06/12/2019 15:32:59 06/12/19 20 06/12/2019 lipid panel [...] hormo arnaud, sex and age. Not Available [facility] (Outpatient) [address] [place], [address], 06/12/2019 15:58:07 06/12/19 20 06/12/2019 lipid panel , blood cholesterol 176 mg/dL 0-240 Not Available [facility] (Outpatient) [address] [place], [address], 06/12/2019 15:58:07 06/12/19 20 06/12/2019 lipid panel , blood triglyceride s 199 mg/dL 30-160 high Not Available [facility] (Outpatient) [address] [place], [address], 06/12/2019 15:58:07 06/12/19 20 06/12/2019 lipid panel , blood LDL 98 mg/dL 50-129 LDL level s in terms of risk for coron amol heart disea se: <100 mg/dL : Optim al 100-1 29 mg/dL : Near or above optim al 130-1 59 mg/dL : Alyse jacobo high 160-1 89 mg/dL : High >190 mg/dL : Very High Not Available [facility] (Outpatient) [address] [place], [address], 06/12/2019 15:58:07 06/12/19 20 06/12/2019 lipid panel , blood cardiac risk ratio 4.6 3.3-4. 4 high Not Available [facility] (Outpatient) [address] [place], [address], 06/12/2019 15:58:07 06/12/19 20 06/12/2019 micro album in/cr eatin ine, mass ratio , urine urine microalbumin <1.2 mg/dL 0-2.3 Not Available [facility] (Outpatient) [address] [place], [address], 06/12/2019 16:00:19 06/12/19 20 06/12/2019 micro album in/cr eatin ine, mass ratio , urine urine creatinine 58 mg/dL Not Available [facility] (Outpatient) [address] [place], [address], 06/12/2019 16:00:19 06/12/19 20 06/12/2019 micro album in/cr eatin ine, mass ratio , urine microalb/cre ratio NOT CALCUL ATED mg/g_ cre 0-20 due to Micro album in <1.2 Not Available [facility] (Outpatient) [address] [place], [address], 06/12/2019 16:00:19 06/12/19 20 06/12/2019 CMP, serum or plasm a sodium 139 mmol/ L 133-14 6 Not Available [facility] (Outpatient) [address] [place], [address], 06/12/2019 16:09:37 06/12/19 20 06/12/2019 CMP, serum or plasm a potassium 4.8 mmol/ L 3.3-5. 1 Not Available [facility] (Outpatient) [address] [place], [address], 06/12/2019 16:09:37 06/12/19 20 06/12/2019 CMP, serum or plasm a chloride 103 mmol/ L 96-108 Not Available [facility] (Outpatient) [address] [place], [address], 06/12/2019 16:09:37 06/12/19 20 06/12/2019 CMP, serum or plasm a CO2 23 mmol/ L 21-35 Not Available [facility] (Outpatient) [address] [place], [address], 06/12/2019 16:09:37 06/12/19 20 06/12/2019 CMP, serum or plasm a BUN 21 mg/dL 6-19 high Not Available [facility] (Outpatient) [address] [place], [address], 06/12/2019 16:09:37 06/12/19 20 06/12/2019 CMP, serum or plasm a creatinine 1.20 mg/dL 0.5-1. 5 Not Available [facility] (Outpatient) [address] [place], [address], 06/12/2019 16:09:37 06/12/19 20 06/12/2019 CMP, serum or plasm a glucose 116 mg/dL 70-99 high Not Available [facility] (Outpatient) [address] [place], [address], 06/12/2019 16:09:37 06/12/19 20 06/12/2019 CMP, serum or plasm a albumin 4.4 g/dL 3.9-4. 8 Not Available [facility] (Outpatient) [address] [place], [address], 06/12/2019 16:09:37 06/12/19 20 06/12/2019 CMP, serum or plasm a total protein 7.7 g/dL 6.5-8. 0 Not Available [facility] (Outpatient) [address] [place], [address], 06/12/2019 16:09:37 06/12/19 20 06/12/2019 CMP, serum or plasm a calcium 10.9 mg/dL 8.4-10 .3 high Not Available [facility] (Outpatient) [address] [place] [address], [address], 06/12/2019 16:09:37 06/12/19 20 06/12/2019 CMP, serum or plasm a alkaline phosphatase 61 U/L 39-117 Not Available [facility] (Outpatient) [address] [place] [address], [address], 06/12/2019 16:09:37 06/12/19 20 06/12/2019 CMP, serum or plasm a total bilirubin 0.2 mg/dL 0.0-1. 2 Not Available [facility] (Outpatient) [address] [place] [address], [address], 06/12/2019 16:09:37 06/12/19 20 06/12/2019 CMP, serum or plasm a AST 22 U/L 0-37 Not Available [facility] (Outpatient) [address] [place], [address], 06/12/2019 16:09:37 06/12/19 20 06/12/2019 CMP, serum or plasm a ALT 9 U/L 0-40 Not Available [facility] (Outpatient) [address] [place] [address], [address], 06/12/2019 16:09:37 06/12/19 20 06/12/2019 CMP, serum or plasm a globulin 3.3 g/dL 1-4.8 Not Available [facility] (Outpatient) [address] [place] [address], [address], 06/12/2019 16:09:37 06/12/19 20 06/12/2019 CMP, serum or plasm a eGFR 44 mL/mi n/1.7 3m2 >59 low If patie nt is black , multi ply resul t by 1.159 . Estim ated glome rular filtr ation rate calcu lated using the CKD-E PI equat ion. Not Available [facility] (Outpatient) [address] [place], [address], 06/12/2019 16:09:37 06/12/19 20 06/12/2019 CMP, serum or plasm a anion gap 18 mmol/ L 10-20 Not Available [facility] (Outpatient) [address] [place], [address], 06/12/2019 16:09:37 06/12/19 20 06/12/2019 T4, free, serum free T4 1.4 NG/dL 0.9-1. 7 Not Available [facility] (Outpatient) [address] [place], [address], 06/12/2019 16:09:39 06/12/19 20 06/12/2019 TSH, serum or plasm a TSH 1.12 uIU/m L 0.27-4 .20 Not Available [facility] (Outpatient) [address] [place], [address], 06/12/2019 16:09:40 01/21/20 20 01/21/2020 HbA1c (hemo globi n A1c), blood hemoglobin A1C 6.1 % 4.3-5. 8 high Not Available [facility] (Outpatient) [address] [place], [address], 01/21/2020 11:26:48 01/21/20 20 01/21/2020 lipid panel [...] hormo arnaud, sex and age. Not Available [facility] (Outpatient) [address] [place], [address], 01/21/2020 11:36:33 01/21/20 20 01/21/2020 lipid panel , blood cholesterol 163 mg/dL 0-240 Not Available [facility] (Outpatient) [address] [place], [address], 01/21/2020 11:36:33 01/21/20 20 01/21/2020 lipid panel , blood triglyceride s 289 mg/dL 30-160 high Not Available [facility] (Outpatient) [address] [place], [address], 01/21/2020 11:36:33 01/21/20 20 01/21/2020 lipid panel , blood LDL 69 mg/dL 50-129 LDL level s in terms of risk for coron amol heart disea se: <100 mg/dL : Optim al 100-1 29 mg/dL : Near or above optim al 130-1 59 mg/dL : Borde rline high 160-1 89 mg/dL : High >190 mg/dL : Very High Not Available [facility] (Outpatient) [address] [place], [address], 01/21/2020 11:36:33 01/21/2001/21/2020 lipid panel , blood cardiac risk ratio 4.5 3.3-4. 4 high Not Available [facility] (Outpatient) [address] [place], [address], 01/21/2020 11:36:33 01/21/20 20 01/21/2020 vitam in D, 25-hy droxy , total , serum 25 oh vit D (total) 37 NG/mL 30-60 Not Available [facility] (Outpatient) [address] [place], [address], 01/21/2020 11:50:58 01/21/2001/21/2020 CMP, serum or plasm a sodium 137 mmol/ L 133-14 6 Not Available [facility] (Outpatient) [address] [place], [address], 01/21/2020 11:51:29 01/21/20 20 01/21/2020 CMP, serum or plasm a potassium 5.0 mmol/ L 3.3-5. 1 Not Available [facility] (Outpatient) [address] [place], [address], 01/21/2020 11:51:29 01/21/20 20 01/21/2020 CMP, serum or plasm a chloride 105 mmol/ L 96-108 Not Available [facility] (Outpatient) [address] [place], [address], 01/21/2020 11:51:29 01/21/2001/21/2020 CMP, serum or plasm a CO2 21 mmol/ L 21-35 Not Available [facility] (Outpatient) [address] [place], [address], 01/21/2020 11:51:29 01/21/2001/21/2020 CMP, serum or plasm a BUN 27 mg/dL 6-19 high Not Available [facility] (Outpatient) [address] [place], [address], 01/21/2020 11:51:29 01/21/2001/21/2020 CMP, serum or plasm a creatinine 1.50 mg/dL 0.5-1. 5 Not Available [facility] (Outpatient) [address] [place], [address], 01/21/2020 11:51:29 01/21/2001/21/2020 CMP, serum or plasm a glucose 129 mg/dL 70-99 high Not Available [facility] (Outpatient) [address] [place], [address], 01/21/2020 11:51:29 01/21/2001/21/2020 CMP, serum or plasm a albumin 4.3 g/dL 3.9-4. 8 Not Available [facility] (Outpatient) [address] [place], [address], 01/21/2020 11:51:29 01/21/20 20 01/21/2020 CMP, serum or plasm a total protein 7.3 g/dL 6.5-8. 0 Not Available [facility] (Outpatient) [address] [place], [address], 01/21/2020 11:51:29 01/21/20 20 01/21/2020 CMP, serum or plasm a calcium 11.2 mg/dL 8.4-10 .3 high Not Available [facility] (Outpatient) [address] [place], [address], 01/21/2020 11:51:29 01/21/2001/21/2020 CMP, serum or plasm a alkaline phosphatase 48 U/L 39-117 Not Available [facility] (Outpatient) [address] [place], [address], 01/21/2020 11:51:29 01/21/2001/21/2020 CMP, serum or plasm a total bilirubin 0.3 mg/dL 0.0-1. 2 Not Available [facility] (Outpatient) [address] [place], [address], 01/21/2020 11:51:29 01/21/2001/21/2020 CMP, serum or plasm a AST 15 U/L 0-37 Not Available [facility] (Outpatient) [address] [place], [address], 01/21/2020 11:51:29 01/21/2001/21/2020 CMP, serum or plasm a ALT 6 U/L 0-40 Not Available [facility] (Outpatient) [address] [place], [address], 01/21/2020 11:51:29 01/21/2001/21/2020 CMP, serum or plasm a globulin 3.0 g/dL 1-4.8 Not Available [facility] (Outpatient) [address] [place], [address], 01/21/2020 11:51:29 01/21/20 20 01/21/2020 CMP, serum or plasm a eGFR 33 mL/mi n/1.7 3m2 >59 low Estim ated glome rular filtr ation rate calcu lated using the CKD-E PI equat ion. Not Available [facility] (Outpatient) [address] [place], [address], 01/21/2020 11:51:29 01/21/20 20 01/21/2020 CMP, serum or plasm a anion gap 16 mmol/ L 10-20 Not Available [facility] (Outpatient) [address] [place], [address], 01/21/2020 11:51:29 01/21/20 20 01/21/2020 T4, free, serum free T4 1.1 NG/dL 0.9-1. 7 Not Available [facility] (Outpatient) [address] [place], [address], 01/21/2020 11:51:31 01/21/2001/21/2020 TSH, serum or plasm a TSH 1.88 uIU/m L 0.27-4 .20 Not Available [facility] (Outpatient) [address] [place], [address], 01/21/2020 11:51:33 01/21/20 20 01/21/2020 micro album in/cr eatin ine, mass ratio , urine urine microalbumin <1.2 mg/dL 0-2.3 Not Available [facility] (Outpatient) [address] [place], [address], 01/21/2020 16:09:45 01/21/20 20 01/21/2020 micro album in/cr eatin ine, mass ratio , urine urine creatinine 83 mg/dL Not Available [facility] (Outpatient) [address] [place], [address], 01/21/2020 16:09:45 01/21/20 20 01/21/2020 micro album in/cr eatin ine, mass ratio , urine microalb/cre ratio NOT CALCUL ATED mg/g_ cre 0-20 due to Micro album in <1.2 Not Available [facility] (Outpatient) [address] [place], [address], 01/21/2020 16:09:45 09/03/19 21 09/02/2020 CMP, serum or plasm a sodium 139 mmol/ L 133-14 6 Not Available [facility] (Outpatient) [address] [place], [address], 09/02/2020 11:43:26 09/03/19 21 09/02/2020 CMP, serum or plasm a potassium 5.3 mmol/ L 3.3-5. 1 high Not Available [facility] (Outpatient) [address] [place] [address], [address], 09/02/2020 11:43:26 09/03/19 21 09/02/2020 CMP, serum or plasm a chloride 106 mmol/ L 96-108 Not Available [facility] (Outpatient) [address] [place], [address], 09/02/2020 11:43:26 09/03/19 21 09/02/2020 CMP, serum or plasm a CO2 23 mmol/ L 21-35 Not Available [facility] (Outpatient) [address] [place], [address], 09/02/2020 11:43:26 09/03/19 21 09/02/2020 CMP, serum or plasm a BUN 26 mg/dL 6-19 high Not Available [facility] (Outpatient) [address] [place], [address], 09/02/2020 11:43:26 09/03/19 21 09/02/2020 CMP, serum or plasm a creatinine 1.40 mg/dL 0.5-1. 5 Not Available [facility] (Outpatient) [address] [place], [address], 09/02/2020 11:43:26 09/03/19 21 09/02/2020 CMP, serum or plasm a glucose 114 mg/dL 70-99 high Not Available [facility] (Outpatient) [address] [place], [address], 09/02/2020 11:43:26 09/03/19 21 09/02/2020 CMP, serum or plasm a albumin 4.3 g/dL 3.9-4. 8 Not Available [facility] (Outpatient) [address] [place], [address], 09/02/2020 11:43:26 09/03/19 21 09/02/2020 CMP, serum or plasm a total protein 7.6 g/dL 6.5-8. 0 Not Available [facility] (Outpatient) [address] [place], [address], 09/02/2020 11:43:26 09/03/19 21 09/02/2020 CMP, serum or plasm a calcium 10.7 mg/dL 8.4-10 .3 high Not Available [facility] (Outpatient) [address] [place], [address], 09/02/2020 11:43:26 09/03/19 21 09/02/2020 CMP, serum or plasm a alkaline phosphatase 56 U/L 39-117 Not Available [facility] (Outpatient) [address] [place], [address], 09/02/2020 11:43:26 09/03/19 21 09/02/2020 CMP, serum or plasm a total bilirubin 0.2 mg/dL 0.0-1. 2 Not Available [facility] (Outpatient) [address] [place], [address], 09/02/2020 11:43:26 09/03/19 21 09/02/2020 CMP, serum or plasm a AST 16 U/L 0-37 Not Available [facility] (Outpatient) [address] [place] [address], [address], 09/02/2020 11:43:26 09/03/19 21 09/02/2020 CMP, serum or plasm a ALT 7 U/L 0-40 Not Available [facility] (Outpatient) [address] [place], [address], 09/02/2020 11:43:26 09/03/19 21 09/02/2020 CMP, serum or plasm a globulin 3.3 g/dL 1-4.8 Not Available [facility] (Outpatient) [address] [place] [address], [address], 09/02/2020 11:43:26 09/03/19 21 09/02/2020 CMP, serum or plasm a eGFR 36 mL/mi n/1.7 3m2 >59 low Estim ated glome rular filtr ation rate calcu lated using the CKD-E PI equat ion. Not Available [facility] (Outpatient) [address] [place] [address], [address], 09/02/2020 11:43:26 09/03/19 21 09/02/2020 CMP, serum or plasm a anion gap 15 mmol/ L 10-20 Not Available [facility] (Outpatient) [address] [place] [address], [address], 09/02/2020 11:43:26 09/03/19 21 09/02/2020 lipid panel [...] hormo arnaud, sex and age. Not Available [facility] (Outpatient) [address] [place], [address], 09/02/2020 12:00:24 09/03/19 21 09/02/2020 lipid panel , blood cholesterol 139 mg/dL 0-240 Not Available [facility] (Outpatient) [address] [place], [address], 09/02/2020 12:00:24 09/03/19 21 09/02/2020 lipid panel , blood triglyceride s 164 mg/dL 30-160 high Not Available [facility] (Outpatient) [address] [place], [address], 09/02/2020 12:00:24 09/03/19 21 09/02/2020 lipid panel , blood LDL 68 mg/dL 50-129 LDL level s in terms of risk for coron amol heart disea se: <100 mg/dL : Optim al 100-1 29 mg/dL : Near or above optim al 130-1 59 mg/dL : Olegde eddiine high 160-1 89 mg/dL : High >190 mg/dL : Very High Not Available [facility] (Outpatient) [address] [place], [address], 09/02/2020 12:00:24 09/03/1909/02/2020 lipid panel , blood cardiac risk ratio 3.7 3.3-4. 4 Not Available [facility] (Outpatient) [address] [place], [address], 09/02/2020 12:00:24 09/03/1909/02/2020 HbA1c (hemo globi n A1c), blood hemoglobin A1C 6.2 % 4.3-5. 8 high Not Available [facility] (Outpatient) [address] [place], [address], 09/02/2020 13:55:19 09/07/19 21 09/06/2020 micro album in/cr eatin ine, mass ratio , urine urine microalbumin <1.2 mg/dL 0-2.3 Not Available [employer]jinder [employer]to [facility] (Outpatient) [address] [place], [address], 09/06/2020 18:43:58 09/07/19 21 09/06/2020 micro album in/cr eatin ine, mass ratio , urine urine creatinine 34 mg/dL Not Available [facility] (Outpatient) [address] [place], [address], 09/06/2020 18:43:58 09/07/19 21 09/06/2020 micro album in/cr eatin ine, mass ratio , urine microalb/cre ratio NOT CALCUL ATED mg/g_ cre 0-20 due to Micro album in <1.2 Not Available [facility] (Outpatient) [address] [place], [address], 09/06/2020 18:43:58 02/03/20 21 02/02/2021 HEMOG LOBIN A1C hemoglobin A1C 6.1 % 4.3-5. 8 high Not Available [facility] (Outpatient) [address] [place], [address], 02/02/2021 10:57:24 02/03/20 21 02/02/2021 LIPID PANEL [...] hormo arnaud, sex and age. Not Available [facility] (Outpatient) [address] [place], [address], 02/02/2021 11:05:04 02/03/20 21 02/02/2021 LIPID PANEL cholesterol 159 mg/dL 0-240 Not Available [facility] (Outpatient) [address] [place], [address], 02/02/2021 11:05:04 02/03/20 21 02/02/2021 LIPID PANEL triglyceride s 247 mg/dL 30-160 high Not Available [facility] (Outpatient) [address] [place], [address], 02/02/2021 11:05:04 02/03/20 21 02/02/2021 LIPID PANEL LDL 74 mg/dL 50-129 LDL level s in terms of risk for coron amol heart disea se: <100 mg/dL : Optim al 100-1 29 mg/dL : Near or above optim al 130-1 59 mg/dL : Borde rline high 160-1 89 mg/dL : High >190 mg/dL : Very High Not Available [facility] (Outpatient) [address] [place], [address], 02/02/2021 11:05:04 02/03/20 21 02/02/2021 LIPID PANEL cardiac risk ratio 4.4 3.3-4. 4 Not Available [facility] (Outpatient) [address] [place], [address], 02/02/2021 11:05:04 02/03/20 21 02/02/2021 25-OH VITAM IN D 25 oh vit D (total) 34 NG/mL 30-60 Not Available [facility] (Outpatient) [address] [place], [address], 02/02/2021 11:16:20 02/03/20 21 02/02/2021 COMPR EHENS FORTINO METAB OLIC PANEL sodium 138 mmol/ L 133-14 6 Not Available [facility] (Outpatient) [address] [place], [address], 02/02/2021 11:26:12 02/03/20 21 02/02/2021 COMPR EHENS FORTINO METAB OLIC PANEL potassium 5.2 mmol/ L 3.3-5. 1 high Not Available [facility] (Outpatient) [address] [place], [address], 02/02/2021 11:26:12 02/03/20 21 02/02/2021 COMPR EHENS FORTINO METAB OLIC PANEL chloride 107 mmol/ L 96-108 Not Available [facility] (Outpatient) [address] [place], [address], 02/02/2021 11:26:12 02/03/20 21 02/02/2021 COMPR EHENS FORTINO METAB OLIC PANEL CO2 21 mmol/ L 21-35 Not Available [facility] (Outpatient) [address] [place], [address], 02/02/2021 11:26:12 02/03/20 21 02/02/2021 COMPR EHENS FORTINO METAB OLIC PANEL BUN 28 mg/dL 6-19 high Not Available [facility] (Outpatient) [address] [place], [address], 02/02/2021 11:26:12 02/03/20 21 02/02/2021 COMPR EHENS FORTINO METAB OLIC PANEL creatinine 1.50 mg/dL 0.5-1. 5 Not Available [facility] (Outpatient) [address] [place], [address], 02/02/2021 11:26:12 02/03/20 21 02/02/2021 COMPR EHENS FORTINO METAB OLIC PANEL glucose 117 mg/dL 70-99 high Not Available [facility] (Outpatient) [address] [place], [address], 02/02/2021 11:26:12 02/03/20 21 02/02/2021 COMPR EHENS FORTINO METAB OLIC PANEL albumin 4.3 g/dL 3.9-4. 8 Not Available [facility] (Outpatient) [address] [place], [address], 02/02/2021 11:26:12 02/03/20 21 02/02/2021 COMPR EHENS FORTINO METAB OLIC PANEL total protein 7.2 g/dL 6.5-8. 0 Not Available [facility] (Outpatient) [address] [place], [address], 02/02/2021 11:26:12 02/03/20 21 02/02/2021 COMPR EHENS FORTINO METAB OLIC PANEL calcium 11.1 mg/dL 8.4-10 .3 high Not Available [facility] (Outpatient) [address] [place], [address], 02/02/2021 11:26:12 02/03/20 21 02/02/2021 COMPR EHENS FORTINO METAB OLIC PANEL alkaline phosphatase 56 U/L 39-117 Not Available [facility] (Outpatient) [address] [place], [address], 02/02/2021 11:26:12 02/03/20 21 02/02/2021 COMPR EHENS FORTINO METAB OLIC PANEL total bilirubin 0.3 mg/dL 0.0-1. 2 Not Available [facility] (Outpatient) [address] [place], [address], 02/02/2021 11:26:12 02/03/20 21 02/02/2021 COMPR EHENS FORTINO METAB OLIC PANEL AST 14 U/L 0-37 Not Available [facility] (Outpatient) [address] [place], [address], 02/02/2021 11:26:12 02/03/20 21 02/02/2021 COMPR EHENS FORTINO METAB OLIC PANEL ALT 8 U/L 0-40 Not Available [facility] (Outpatient) [address] [place], [address], 02/02/2021 11:26:12 02/03/20 21 02/02/2021 COMPR EHENS FORTINO METAB OLIC PANEL globulin 2.9 g/dL 1-4.8 Not Available [facility] (Outpatient) [address] [place], [address], 02/02/2021 11:26:12 02/03/20 21 02/02/2021 COMPR EHENS FORTINO METAB OLIC PANEL eGFR 33 mL/mi n/1.7 3m2 >59 low Estim ated glome rular filtr ation rate calcu lated using the CKD-E PI equat ion. Not Available [facility] (Outpatient) [address] [place], [address], 02/02/2021 11:26:12 02/03/20 21 02/02/2021 COMPR EHENS FORTINO METAB OLIC PANEL anion gap 15 mmol/ L 10-20 Not Available [facility] (Outpatient) [address] [place], [address], 02/02/2021 11:26:12 02/03/20 21 02/02/2021 FREE T4 free T4 1.4 NG/dL 0.9-1. 7 Not Available [facility] (Outpatient) [address] [place], [address], 02/02/2021 11:26:14 02/03/20 21 02/02/2021 TSH TSH 0.91 uIU/m L 0.27-4 .20 Not Available [facility] (Outpatient) [address] [place], [address], 02/02/2021 11:26:15 02/03/20 21 02/02/2021 MICRO ALBUM IN/CR EATIN INE RATIO , RANDO M URINE urine microalbumin <1.2 mg/dL 0-2.3 Not Available [facility] (Outpatient) [address] [place], [address], 02/02/2021 17:50:10 02/03/20 21 02/02/2021 MICRO ALBUM IN/CR EATIN INE RATIO , RANDO M URINE urine creatinine 97 mg/dL Not Available [facility] (Outpatient) [address] [place], [address], 02/02/2021 17:50:10 02/03/20 21 02/02/2021 MICRO ALBUM IN/CR EATIN INE RATIO , RANDO M URINE microalb/cre ratio NOT CALCUL ATED mg/g_ cre 0-20 due to Micro album in <1.2 Not Available [facility] (Outpatient) [address] [place], [address], 02/02/2021 17:50:10 10/14/19 19 bone densi ty [...] Details Recorded Time Disorder of thyroid gland 24245499 Active 2017 [place] [facility] 8 08:28:01 Disorder of vitamin D 493891940 Active 2017 [place] [facility] 8 08:28:14 Hypercalc emia 81142580 [facility] 08:28:28 Type 2 diabetes mellitus without complicat ion 049781355 Active 2017 [place] [facility] 8 08:29:28 Chronic kidney disease stage 3 750517524 Active 08/2020 lab results Lynda Randall LPN [facility], [facility] 1 10:07:59 Chronic kidney disease due to type 2 diabetes mellitus 614913140383 Active 2020 [facility] 02/02/2021 GFR 33 Milana Rowland [facility] 1 09:47:09 Morbid obesity 539445666 Active 2021 BMI > or = 35 plus diagnosis of diabetes. Brenda [place] Reddy [facility] 2 10:11:12 Problem Notes None recorded. Procedures Surgical History Date Name Laterality Status Provider Name and Address Organization Details Recorded Time 8 Unlisted px accessory sinus completed Alla Sanjeevphillip [facility] 03/27/2019 10:35:47 Imaging Results Imaging [...] Name and Address Organization Details Recorded Time 997411 Product containin g angiotens in-conver ting enzyme inhibitor (product) medicatio n Not available Not available Not available 06/16/2024 45108 009 SNOMED throa t swell ing Sangeetha Ceja LPN [facility] 5 11:32:28 Medications Name Sig [...] Updated DateTime 8 156.21 cm 38.3 kg/m2 86721.3 1 g 72 /min 142 mm[Hg] 73 mm[Hg] Mustapha Breen [facility] 8 09:44:24 Date Recorded Body height Body mass index (BMI) Body weight Heart rate Systolic blood pressure Diastolic blood pressure Provider Name and Address Organization Details Last Updated DateTime 9 158.12 cm 38 kg/m2 25843.5 2 g 64 /min 122 mm[Hg] 64 mm[Hg] Alla Emerson [facility] 9 10:38:49 Date Recorded Body weight Body mass index (BMI) Body height Heart rate Systolic blood pressure Diastolic blood pressure Provider Name and Address Organization Details Last Updated DateTime 1 14526.8 1 g 36.8 kg/m2 158.12 cm 86 /min 118 mm[Hg] 72 mm[Hg] Sri Leahy RN [facility] 1 09:57:09 Date Recorded Body weight Body mass index (BMI) Body height Heart rate Systolic blood pressure Diastolic blood pressure Provider Name and Address Organization Details Last Updated DateTime 5 55094.9 1 g 36.7 kg/m2 157.48 cm 92 /min 129 mm[Hg] 68 mm[Hg] Sangeetha Ceja LPN [facility] 5 11:42:20 Social History Question Answer Notes LastModified by Organizat ion Details LastModified Time Tobacco Smoking Status Never Smoker Eleazar heck [facility] 12/12/2012 08:23:45 What Is Your Level Of Alcohol Consumption? Occasional Rare [email or web address] Information not available 06/16/2024 Which Illicit Or Recreational Drugs Have You Used? Denies [email or web address] Information not available 12/12/2012 What Is Your Occupation? [email or web address] Information not available 09/20/2016 Live Alone [...] Mother- age 95- arthirits HTN, thyroid problems, CT in 60's no siblings MGM- breast cancer [...] formulation 3 completed Jolie Lopez RN null, [facility] 03/05/2013 10:39:33 Influenza, split virus, quadrivalent, preservative 0 completed Gayle Aguila LPN [facility], [facility] 04/01/2020 08:57:48 COVID-19, mRNA, LNP-S, PF, 30 mcg/0.3 mL dose 1 completed Sri Leahy RN null, [facility] 04/05/2021 09:50:59 COVID-19, mRNA, LNP-S, PF, 30 mcg/0.3 mL dose 1 completed Sri Leahy RN null, [facility] 04/05/2021 09:51:10 Influenza, split virus, quadrivalent, preservative 1 completed Sri Leahy RN null, [facility] 04/05/2021 09:51:28 Past Encounters Encounter ID Performer Location Encounter Start Date Encounter Closed Date Diagnosis/Indication Diagnosis SNOMED-CT Code Diagnosis ICD10 Code Diagnosis Note [id number] Sharron Benito [facility] [address] [address] 12/12/2012 08:00:19 12/12/2012 09:21:36 Hypercalcemia 72377138 Pt with elevated Calcium in 11 in [...] age over 50. Pt to go to [facility] [address], givencopy of lab slip at time of visit. BMD 08/15/12 [facility] spine-0.4, hips 01.8 neck -1.3 total, forearm +0.14 Jun 2012 Ca 11 [id number] Nalini Garay LPN [facility], [address] [address] 01/08/2013 15:42:16 01/08/2013 17:00:59 Disorder of thyroid gland 70175862 TSh 11 and has had TSH of [...] repeats labs would like to go to [address] since open Saturday AM and pt lives near there. Disorder of vitamin D 681099879 Vit D 18 and PTH slighlty elevated at 75. Caclium stable at 11.0 to 11.2 with normal/low urinary calcium. Most consistent with [facility]. Will try to slowly replete D and see if PTH corrects and aches resolve. Will have her take 3000 units of Vit D daily and repeat labs when repeats TSH and FT4 in 6 weeks. Hypercalcemia 62129028 s ee above. Will continue to monitor Calcium levels. 24 hour urine studies most consistent ly with FHH. Explained to pt that people with FHH have higher set points for calcium. If correction of D and TSH does not alleviate symptoms, and calcium remain elevated then will reevaluate at that time. [id number] Nalini Garay LPN [facility], [address] [address] 03/05/2013 10:31:44 03/05/2013 11:40:00 Disorder of thyroid gland 61605149 TSH was 11 and is now in [...] repeats labs would like to go to [address] since open Saturday AM and pt lives near there. Disorder of vitamin D 437227102 Vit D is now 26. Ca normal at 10.6, Will have her increase Vit D to 4000 units to get level over 30 and continue this through the winter. Will continue to monitor Ca in renal panel. Labs q 3 months and f/u in 6 months. repeat labs with next TSH in 3 months. Hypercalcemia 97396587 C a normal at 10.6 . see above. Hx=24 hour urine studies most consistent ly with [facility]. If correction of D and TSH does not alleviate symptoms, and calcium remain elevated then will reevaluate at that time. Left bundl e branch block [id number] TSH improved to 4 from 11. Do not think T4 could be reason for extra beat pt is feeling. Pt to have f/u with Dr. Estevez in a few weeks and will discuss with him as well. [id number] [facility], [address] [address] 09/03/2013 10:31:16 09/03/2013 11:33:21 Disorder of thyroid gland 58820351 Is seeing Dr.Kirchof rojas in a few weeks to have f/u on her LBBB (preexisti ng condition) . Pt had echo in November and told has 20-30% blockage. Pt states on ASA and statin for this. labs would like to go to [address] since open Saturday AM and pt lives near there. Disorder of vitamin D 671814788 Hypercalcemia 96451035 H x=24 hour urine studies most consistent ly with [facility]. If correction of D and TSH does not alleviate symptoms, and calcium remain elevated then will reevaluate at that time. Left bundl e branch block [id number] contf/u with Dr. Estevez . [id number] [facility], [address] [address] 03/04/2014 14:26:06 03/04/2014 15:23:06 Disorder of thyroid gland 70735391 Disorder of vitamin D 971086198 Hypercalcemia 91806454 H x=24 hour urine studies most consistent ly with [facility]. If correction of D and TSH does not alleviate symptoms, and calcium remain elevated then will reevaluate at that time. Left bundl e branch block [id number] contf/u with Dr. Estevez . [id number] [facility], [address] [address] 09/21/2014 09:20:13 09/21/2014 10:22:15 Disorder of thyroid gland 67261435 TSH was 11 in 2012 and pt started on T4. TSH stable and to goal. Cont on 50 mcg daily of T4. f/u in 12 months labs q 6 months. Call if symptoms in the meantime and can decide about drawing labs sooner than recommende d date. Lab pt prefers is [address] since open Saturday AM and pt lives near there. Disorder of vitamin D 941435370 Vit D replete at 47 and Ca normal at 10.6,cont Vit D to 4000 units. Labs q 6 months and f/u yearly. Hypercalcemia 40005049 C a normal at 10.6 . see above. Hx=24 hour urine studies most consistent ly with [facility]. If correction of D and TSH does not alleviate symptoms, and calcium remain elevated then will reevaluate at that time. Left bundl e branch block [id number] Follows with Dr.Kirchof rojas --hx of LBBB (preexisti ng condition) . Pt had echo in November 2013 and told has 20-30% blockage. Pt states on ASA and statin for this. last appt May 2014 when had pacer replaced. F/u with Dr. Estevez . [id number] Maryuri Torres PA-C [facility], [address] [address] 09/20/2015 09:34:26 09/20/2015 10:19:42 Disorder of thyroid gland 42905983 E07.9 TSH 4 and pt typically in 2's. Will try 75 mcg daily and repeat labs in 8 weeks. Will contact her if dose needs further adjustment after labs. Labs q 4 months after dose stable. f/u in 12 months. Call if symptoms in the meantime and can decide about drawing labs sooner than recommende d date. Lab pt prefers is [address] since open Saturday AM and pt lives near there. Disorder of vitamin D 38 1811916 E56.9 Vit D remaining replete Ca stable at 10.6. Cont Vit D to 4000 units. Labs q 6 months (March and September) and f/u yearly. Hypercalcemia 77864686 E 83.52 PTH normal. Ca normal at 10.6 . Cont to monitor q 6 months (March and September). Hx=24 hour urine studies most consistent ly with [facility]. If correction of D and TSH does not alleviate symptoms, and calcium remain elevated then will reevaluate at that time. [id number] Maryuri Torres PA-C [facility], [address] [address] [address] 09/20/2016 09:44:08 09/20/2016 10:26:42 Disorder of thyroid gland 94015347 E07.21 Jun 2016 labs to goal on 75 mcg of T4 daily. Cont this dose with labs q 6 months. F/u in 12 months. Lab pt prefers is [address] since open Saturday AM and pt lives near there. Disorder of vitamin D 38 4485504 E56.9 see below. Cont Vit D to 4000 units. Hypercalcemia 75516575 E 83.52 PTH had been normal in [...] Type 2 chanel betes mellitus without complication 675204591 E11.9 Managed by PCP and per pt A1c under 7. [id number] Maryuri Torres PA-C Endocrino [facility], [address] [address] 06/10/2017 09:27:23 06/10/2017 10:47:39 Disorder of thyroid gland 69289116 E07.21 Mar 2017 labs to goal on 75 mcg of T4 daily. Cont this dose with labs q 6 months. Keep f/u in September. Lab pt prefers is [address] since open Saturday AM and pt lives near there. Disorder of vitamin D 38 8402429 E56.9 see below. Cont Vit D to 4000 units but want to update. 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 If D remaining high will reduce D level. May be able to lower D level. Keep appt in September. Hypercalcemia 42049195 E 83.52 PTH had been normal in setting of normal Ca and Vit D. Never got repeat Nov lab from [facility], looking at results in [facility]IX Ca lowered. [...] Type 2 chanel betes mellitus without complication 749630950 E11.9 Managed by PCP and per pt A1c under 7. [id number] Maryuri Torres PA-C Endocrino logy, [address] [address] 09/19/2017 09:24:45 09/19/2017 10:10:11 Disorder of thyroid gland 54343665 E07.19 August 2017 labs to goal.Cont levothyrox ine 75 mcg daily Labs q 6 months. Keep f/u in 6 months. Lab pt prefers is [address] since open Saturday AM and pt lives near there. Disorder of vitamin D 38 0209821 E56.9 Vit D was in 80's so dropped to 2000 units daily. Current testing remaining in 60's. With summer coming will have her take 1000 units daily and then in FAll (January - July) Take 2000 units in the winter. Hypercalcemia 24974639 E 83.52 PTH rising in setting of [...] Type 2 chanel betes mellitus without complication 209326786 E11.9 Managed by PCP and per pt A1c under 7 on low dose metformin ACR negative as well as of September 2017 testing with PCP. [id number] Maryuri Torres PA-C Endocrino logy, [address] [address] 03/28/2018 09:34:36 03/28/2018 10:29:32 Disorder of thyroid gland 13680459 E07.9 TSH normal Feb TSH 0.81 FT4 1.5 Cont levothyrox ine 75 mcg daily Labs q 6 months. Keep f/u in 6 months. Lab pt prefers is [address] since open Saturday AM and pt lives near there. Disorder of vitamin D 38 6151520 E56.9 03/12/18 Vit D still > 60. She had increased to 2000 units in February but do not have to increase. Will have her take 1000 units daily and check again in May 2018. Hypercalcemia 33256025 E 83.52 PTH remains high in setting [...] Type 2 chanel betes mellitus without complication 308078456 E11.9 Managed by PCP and per pt A1c under 7 on low dose metformin. Per pt a1c 6.1 at last testing. [id number] Jamaal Ham MD Endocrino [facility], [address] [address] 03/27/2019 10:18:13 03/27/2019 11:30:27 Type 2 diabetes mellitus without complication 429554792 E11.9 On metformin 500 mg daily- decreased by PCP Kristine because of increased creatinine .Doing well. With PCP's skilled nursing , pt. asking for more diabetes care here. Disorder of vitamin D 38 6437932 E55.9 42.2 (03/31); had been low in past but not in past years. Hypercalcemia 90517076 E 83.52 FHH as evidenccd by low urinary calcium (41 mg/24hr in 10/28) and high serum calcium.Cr eat= 1.5 (lately 1.3-1.6); Ca= 10.9 (was 10.8) ; Phos= 3.2 Hypothyroidism 89461392 E03.9 On 75 mcg levothyrox ine.Doing well clinically . [id number] Jamaal Ham MD Endocrino logy, [address] [address] 04/01/2020 08:45:09 04/01/2020 20:00:33 Type 2 diabetes mellitus without complication 333489161 E11.9 On metformin 500 mg daily- decreased by PCP Kristine because of increased creatinine .Doing well.a1c in 6s. no evidence of complicati ons at present. Disorder of vitamin D 38 0471589 E55.9 37 (01/30); was 42.2 (03/31); had been low in past but not in past years.Take s 1000 units daily. Hypercalcemia 71590839 E 83.52 FHH as evidenced by low urinary calcium (41 mg/24hr in 10/28) and high serum calcium.Cr eat= 1.5 (lately 1.3-1.6); Ca= 10.9 (was 10.8) ; Phos= 3.2 Hypothyroidism 14544110 E03.9 On 75 mcg levothyrox ine.Doing well clinically . Dyslipidem ia due to type 2 diabetes mellitus 3889298055 02 E78.5 2020: 163/289/36 /69;With high TG and low HDL.Encour age more activity.I f remains high, would consider either change to atorva, rosuva or possible addition of Vascepa. [id number] Jamaal Ham MD Endocrino logy, [address] [address] 04/05/2021 09:42:53 04/07/2021 06:32:39 Type 2 diabetes mellitus without complication 690419776 E11.9 On metformin 500 mg daily- decreased by PCP (Valarie Abad). Raeion/Riddhi reyDoing well.a1c in 6s. no evidence of complicati ons at present. Disorder of vitamin D 38 1487348 E55.9 34 (01/31); was 37 (01/30); was 42.2 (03/31); had been low in past but not in past years.Take s 1000 units daily. Hypercalcemia 97566390 E 83.52 FHH as evidenced by low urinary calcium (41 mg/24hr in 10/28) and high serum calcium.Cr eat= 1.5 (lately 1.3-1.6); Ca= 10.9 (was 10.8) ; Phos= 3.2 Hypothyroidism 81005391 E03.9 On 75 mcg levothyrox ine.Doing well clinically . Re-order levothyrox ine today with refill x 6 but will ask pt. to have PCP refill future Rx's. Dyslipidem ia due to type 2 diabetes mellitus 2954396000 02 E78.5 2020: 159-247 (were 164)-36- 2020: 163/289/; With high TG and low HDL.Encour age more activity.I f remains high, would consider either change to atorva, rosuva or possible addition of Vascepa. [id number] Jamaal Ham MD Endocrino logy, [facility] [address] [place] [address] 06/16/2024 10:55:56 06/29/2024 07:56:11 Type 2 diabetes mellitus without complication 025524465 E11.9 On metformin 500 mg daily- decreased by PCP (Valarie Abad). Tasha/Riddhi reyDoing well.a1c in 6s. Last was 6.9 in 2023.No evidence of complicati ons at present. Hypercalcemia 20998191 E 83.52 UNCONTROLL EDThought to be FHH [...] urinary studies.- check CASR gene mutation. Hypothyroidism 04613464 E03.9 On 75 mcg levothyrox ine.Doing well clinically . Dyslipidem ia due to type 2 diabetes mellitus 5232390896 02 E78.5 08/03: - 144/207/40 /63 on [...] [place]ATIONAL [place]MENT [place] Annetta Pendleton McElwey [id number] [id number] Annetta Whitlock McEsusi 03/28/2018 2 [place] [id number] Annetta Chinyere McElwey [id number] Annetta [place] McElwey 03/27/2019 1 [place] B[place] Annetta E McElwey [id number] G40 Annetta Chinyere McElwey 03/27/2019 2 [place] [id number] Annetta Chinyere McElwey [id number] Annetta [place] McElwey 04/01/2020 1 [place]ERNMENT [place] Annetta E McElwey [id number] G40 Annetta [place] McElwey 04/01/2020 2 [place] [id number] Annetta Chinyere McElwey [id number] Annetta Chinyere McElwey 04/05/2021 1 MEDICARE B[place]: NATIONAL [place]ERNMENT [place] Annetta E McElwey [id number] [id number] Annetta Chinyere McElwey 04/05/2021 2 [place] [id number] Annetta [place] McElwey [id number] Annetta [place] McElwey 06/16/2024 1 MED[place]: NATIONAL [place]ERNMENT [place] Annetta E McElwey [id number] Annetta [place] McElwey 06/16/2024 1 [facility] [id number] Annetta E McElwey [id number] Annetta Chinyere McElwey Notes Date Note Type [...] systems as below. This is dictated using [employer] voice dictation software. Maryuri Torres PA-C [address] [place] [address], [phone], [facility] 03/31/2018 13:40:03 9 text/html DiabetesReported bypatient.Labs:last Hemoglobin [...] stones. BMD: Done at [facility]. 2018. ROS: No fevers or chills.Had sinus fungal infection in 2018.Can be SOB if rushing and gets anxiousNo muscle aches or pains. No cramping.No dizziness with standing in AM. No bruises or rashes. ` Jamaal Ham MD [address] [place] [address], [phone], [facility] 03/30/2019 15:28:25 0 text/html DiabetesReported bypatient.Labs:last Hemoglobin [...] Hypoglycemia Symptomsfrequency of hypoglycemic episodesinfrequently (metformin only.); [place] funny (Shivering in middle of night- trembling) [...] happening. HAIR: no changesNAILS: No breaking/splitting. PCP- Valraie Abad.[place]- for pacer.Renal- none. Patient agreed to this visit via phone or secure telehealth platform due to the COVID - pandemic. Patient understands this is a scheduled visit and the usual procedures with regard to billing and confidentiality apply. Patient was notified that the provider location is [facility] Patient location: home During the visit the [...] kidney stones.BMD: Done at [facility]. 2018. ROS: No fevers or chills.Had sinus fungal infection in 2018.Can cough or SOB (besides described elsewhere with activity or stress)No muscle pains. No cramping. Gets leg cramps- has tonic water nightly. No dizziness with standing in AM. No bruises, itching or rashes. Jamaal Ham MD [address] [place] [address], [phone], [facility] 04/01/2020 09:48:45 1 text/html DiabetesReported bypatient.Labs:last Hemoglobin [...] artery disease s/p pacemaker; no retinopathy ([facility] no numbness of feet;kidney disease chronic renal [...] tracings periodically.Will be seeing new CARDS in [place].But also has had nuclear ETT at [place]. PCP- Valarie Abad.CARDIAC: Switching to [place] (Subramarian)- [...] kidney stones.BMD: Done at [facility]. 2018. ROS:No fevers or chills.Had sinus fungal infection in 2018.Can cough or SOB (besides described elsewhere with activity or stress)No muscle pains. No cramping. Gets leg cramps- has tonic water nightly. No dizziness with standing in AM.No bruises, itching or rashes. Jamaal Ham MD [address] [place] [address], [phone], [facility] 04/05/2021 22:06:34 5 text/html DiabetesReported bypatient.Labs:last Hemoglobin A1C: 6s at goal (6.9 ([place] in 2023); was 6.1 (01/31); was 6.2 [...] Symptomscoronary artery disease s/p pacemaker; no retinopathy (([facility] )); no numbness of feet;kidney disease [...] tracings periodically.Will be seeing new CARDS in [place].But also has had nuclear ETT at [place]. Last seen in 2020.PCP- Valarie Abad.CARDIAC: Switching to [place] (Subramarian)- for pacer.RENAL is Arsen Villegas ([place])ENT: [place] T2DM, hypothyroidism and hypercalcemia (previously thought [...] Magalie (46)- doing OK. 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 Lynne ([email or web address] ) and Amara- ([employer])daughter (50)- Herman at [employer]. 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 Calciums in 11s. PTH in triple digits.On cinacalcet but hasn't impacted PTH. Not affecting Ca much. Makes her nauseated.Told it depletes Mg.Interested in surgery as option. seeing him next month.RENAL is Helenea([place]) Hx of hypercalcemia thought to be due to FHH. 2018: urine C was LOW= 3.9 mg/dL (31 mg/24 hrs)No hx of kidney stones.BMD: Done at [facility]. 2018. Ca= 10.7 (05/05); was 10.1 [...] PREVIOUS 24 HR URINE (2018)Creatinine Clearance................ ........................5 8.07863907............... ......................... >80Phosphorus Clearance................ .....................11.5 1215181.................. ......................5 to 15Tubular Reabsorption of Phosphorus........80.1711 3095..................... ...................82-97% Calcium/Creatinine Clearance................ .........0.051071155..... ......................... ........<0.01 C/W [facility] Ca/Creat clearance and TRP [facility]. KIDNEY STONES: NONEFRACTURES: NONEBONE PAIN: Sometimes- [...] in abdomen.M/S sx: arthritic. Jamaal Ham MD [address] [place] [address], [place], [phone], [facility] 06/28/2024 14:21:00 OBGyn Episode No OBEpisode recorded.
--- OUTSIDE RECORDS SUMMARY | 2024-07-20 08:11 | XMS_ITS | Data Portability ---
Author Organization [place] [facility], Allergy Address [address] [address] Care Team Providers Care Operating Room Aide Name Role Phone JACOBO ABAD Primary Care [...] % topical ointment [address] [id number], [address] [facility], [place], [address], 5 11:51:39 Patient TargetsNo targets recorded. Patient InstructionsNo instructions recorded. Reason for Referral None Reported. Problems Name Problem SNOMED Code Status Onset Date Resolution Date Notes Provider Name and Address Organization Details Recorded Time Chronic sphenoid al sinusiti s 07242405 Completed 201712/13/2023 Chronic sphenoid al sinusiti s; Note: Date Diagnose d: 04/28/20 8:26 PM (J32.3) Chroni c sphenoid al sinusiti s; Note: Date Diagnose d: 8 11:01 AM (J32.3) ; Start Date : 02/11/20 Not Available [facility] 4 03:07:58 Follow-u p visit Active 2017 Encounte r for follow-u p examinat ion after complete d treatmen t for conditio ns other than malignan t neoplasm ; Note: Date Diagnose d: 04/21/20 2:55 PM (Z09) Not Available [facility] 4 03:08:00 Ulcerati ve rhinitis 67207698 Active 2019 Nasal mucositi s (ulcerat adriana); Note: Date Diagnose d: 0 1:36 PM (J34.81) Not Available [facility] 4 03:08:00 Migraine 14294447 Active 2017 Other migraine , not intracta ble, without status migraino kervin; Note: Date Diagnose d: 8 10:47 AM (G43.809 ) Not Available [facility] 4 03:07:58 Headache 58450189 Active 2019 Facial pain NOS; Note: Date Diagnose d: 02/25/20 1:22 PM (R51) Facial pain NOS; Note: Date Diagnose d: 8 10:47 AM (R51) ; Start Date : 02/11/20 Not Available [facility] 4 03:07:59 Angioede ma 85555235 Active 2023 Angioneu rotic edema, initial encounte r; Note: Date Diagnose d: 4 9:06 AM (T78.3XX A) Not Available [facility] 4 03:08:00 Gastroes ophageal reflux disease 148620233 Active 2024 SANDIE WILLIAM MD [address] [facility],RAJINDER [facility][note 3], [place], [address] , [facility] 5 08:18:24 Obstruct adriana sleep apnea syndrome 33237019 Active 2024 SANDIE WILLIAM MD [address] [facility],[place] [address], [place], [address] , [facility] 5 08:18:33 Problem Notes None recorded. Procedures Surgical History Date Name Laterality Status Provider Name and Address Organization Details Recorded Time 06/12/19 Fiberoptic Laryngoscopy (Comprehensive) completed SANDIE WILLIAM MD [address] [facility],[place] [address], [place], [address], [facility] 06/13/2024 08:17:40 Imaging Results None recorded. [...] layed release 06/12 completed Medicati on ID: [id number] D uration Value: 90 Brand Name: pantopra zole Sen d Method: E-Prescr ibed Sub s Allowed: subs OK Speci al Instruct ion: TAKE 1 TABLET BY ORAL ROUTE DAILY Me dication GenericN radha: pantopra zole Not Available Not Available Not Available pravastat in 20 mg tablet 2017 active Medicati on ID: [id number] D uration Value: 90 Brand Name: pravasta [...] by mouth 06/12 completed Medicati on ID: [id number] D uration Value: 7 Prescri bed By Name: Sandie weiss MD Brand Name: cefuroxi me axetil S end Method: E-Prescr ibed Sub s Allowed: subs OK Medic ationGen ericName : cefuroxi me axetil Not Available Not Available Not Available amoxicill in 875 mg-potass ium clavulana te 125 mg tablet 05/09 completed Medicati on ID: [id number] D uration Value: 10 Reason: () Brand [...] Available Advil 04/21 completed Medicati on ID: [id number] R sergio: () Brand Name: advil Se nd Method: E-Prescr ibed Sub s Allowed: subs OK Medic ationGen ericName : advil Not Available Not Available Not Available Tylenol 06/12 completed Medicati on ID: [id number] B rand Name: tylenol Send Method: E-Prescr ibed Sub s Allowed: subs OK Medic ationGen ericName : tylenol Not Available Not Available Not Available amlodipin e 10 mg-benaze pril 40 mg capsule 06/12 completed Medicati on ID: [id number] D uration Value: 90 Brand Name: amlodipi [...] Updated DateTime 06/12/2024 157.48 cm 36.6 kg/m2 01297.47 g Georgette Lynn [place] - [facility] 06/12/2024 11:32:13 Social History None recorded. [...] SNOMED-CT Code Diagnosis ICD10 Code Diagnosis Note [id number] SANDIE WILLIAM MD [facility] [address] [place] [address] 06/12/2024 11:19:33 06/12/2024 11:55:40 Ulcerative rhinitis 77125100 J34.81 Gastroesop hageal reflux disease 130103034 K21.00 Obstructiv e sleep apnea syndrome 76636942 G47.33 Health Concerns Section Related Observation LastModified by Organization Detai ls LastModified Time None Recorded Concern Status LastModified by Organization Details LastModified Time None Recorded Advance Directives Directive None Recorded Payers Encounter Date Sequence Insurance Name Policy Number Policy Lara Covered Member ID Lara Member ID Guarantor Name 06/12/[address] [facility] (MEDICARE REPLACEMENT/ ADVANTAGE - PPO) [id number] 1 Annetta Strickland [id number] Annetta Strickland Notes Date Note Type Note Provider Name and Address Organization Details Recorded Time 06/12/2024 text/html 78 yo F presents for evaluation of her throatangioedema [facility] new FAINA CPAP, right side of nose gets crusting, uses AYR saline and gel esophagitis and gastritis in September, on omeprazole gets scratchy, this week is a little better SANDIE WILLIAM MD [address] [place] [address], [phone], [place] - [facility] 06/13/2024 08:20:50 OBGyn Episode No OBEpisode recorded.
--- OUTSIDE RECORDS SUMMARY | 2024-07-20 08:11 | XMS_ITS | Patient Health Record ---
Author Organization [facility] Address [address] [place] [address] Care Team Providers Care Trail Construction Worker Name Role Phone Archie Finch MD Primary Care Provider Cash Casanova Unavailable [phone] Allergies Allergen (clinical drug ingredient) Drug/Non Drug Allergy documented on EMR Reaction Allergy Type Onset Date Status angiotensin-converting enzyme inhibitor (FN) EMELIA Inhibitors Unknown Drug Allergy Acti ve Results Component Value Reference Range Notes Glucose, Whole Blood Reviewed date:10/03/2023 09:15:19 AM Interpretation: Performing Lab:[facility], [address] [place] [phone] Notes/Report: Glucose, Whole Blood 128 60-115 mg/dL METER # : [id number] Pathology Reviewed date:10/19/2023 09:51:24 PM Interpretation: Performing Lab:[facility], [address] [place] [phone] Notes/Report: ---- Name: Ellis Fishman Age/Sex: 77/F : 1945 Unit#: [id number] Attend Dr: Cash Mercado Re10/03/23 Status : DEP [facility] Location: HO.SSS Disch: ---- SPEC : [id number] RECD : 10/03/23 STATUS: GEOVANNA FERNANDEZ NUM: [id number] JOSE A: 10/03/[address] [facility] [address]: Cash Mercado ENTERED: 10/03/23-01 29 SP TYPE: Surgical OTHR DR: Carmita Dietz ACUTE CARE ASSISTANT ORDERED: HE Stain/3, Gross Micro L4, IHC, [...] stains on A1. Copies To: Carmita Dietz ACUTE CARE ASSISTANT [facility] [address] [place] [address] Cash Mercado [address] [place] [address] [id number] [place] [address] ---- Signed (signature on file) Mellissa [...] Orally every 6 hrs Active Biotin Maximum 67475 MCG as directed Orally Active Rosuvastatin Calcium [...] W/U Status Risk Notes Problem Epigastric pain (14656559) Epigastric pain (R10.13) Active confirmed Problem 011747335 Encounter for screening for malignant neoplasm of colon (Z12.11) Active confirmed Problem 895510841 History of adenomatous polyp of colon (Z86.010) Active confirmed Problem Ulcer of esophagus (77587697) Ulcer of esophagus without bleeding (K22.10) Active confirmed Problem Diverticular disease of colon (217825171) Diverticulosis of large intestine without perforation or abscess without bleeding (K57.30) Active confirmed Problem 101917030 Gastroesophageal reflux disease without esophagitis (K21.9) Active confirmed Problem Hiatal hernia (92940685) Hiatal hernia (K44.9) Active confirmed Problem Chronic gastritis (1676301) Gastritis, chronic (K29.50) Active confirmed Problem Computed tomography result abnormal (225149833) Abnormal CT scan, colon (R93.3) Active confirmed Problem Erosive esophagitis (52668859) Erosive esophagitis (K22.10) Active confirmed Problem 100058876 Irregular bowel habits (R19.8) Active confirmed Problem 14214906 Incontinence of feces, unspecified fecal incontinence type (R15.9) Active confirmed Problem Diaphragmatic hernia (94672734) Hernia, hiatal (K44.9) Active confirmed Problem Gastroesophageal reflux disease (736312290) Chronic GERD (K21.9) Active confirmed Vital Signs Temperature 96.9 degrees Fahrenheit 09/18/2023 Blood pressure diastolic 74 mm Hg 03/03/2024 Height 62.50 in 03/03/2024 Blood pressure systolic 130 mm Hg 03/03/2024 Weight 197 lbs 03/03/2024 BMI 35.45 kg/m2 03/03/2024 Encounters Encounter Location Date Provider Diagnosis [facility] [address] [place] [id number] 10/03/[address] scan, co karena R93.3 ; Diverticulosis of large intestine without perforation or abscess without bleeding K57.30 ; Other hemorrhoids K64.8 ; Ulcer of esophagus without bleeding K22.10 ; Hiatal hernia K44.9 ; Gastritis, chronic K29.50 ; Hematemesis K92.0 and Abdominal pain R10.9 [facility] [address] [place] [address] 09/18/[address] scan, co karena R93.3 ; Chronic GERD K21.9 ; Epigastric pain R10.13 and Hiatal hernia K44.9 [facility] [address] [place] [address], [place] [address] 03/03/2024 Cash Mercado Erosive esophagitis K22.10 and Hernia, hiatal K44.9 [facility] [address] [place] [address] 09/22/2023 Cash Mercado [facility] [address] [place] [address] 10/03/2023 Cash Mercado [facility] [address] [place] [address] 03/15/2024 Cash Mercado [facility] [address] [place] [address] 03/26/2024 Cash Mercado Assessments Encounter Date Diagnosis [...] the procedures. She is going away to [place] next week and the procedures will be [...] the procedures. She is going away to [place] next week and the procedures will be [...] the procedures. She is going away to [place] next week and the procedures will be [...] the procedures. She is going away to [place] next week and the procedures will be performed later in September after she returns. Luli and her were comfortable with this plan. Thank you again for allowing me to participate in Luil's care. I shall continue to keep you [...] Insured Coverage Start Date Coverage End Date [facility] [address] [place] [address] [phone] [id number] LULI FISHMAN Self - patient is the insured Medical (General) History Medical History History ICD Code NIDDM Hyperlipidemia Hypertension Pacemaker Arthritis Denies SD,CVA,Lung disease,renal disease Urinary incontinence-mild Hypothyroidism Tubular adenomas removed in 1999--- she had negative colonoscopies in 2005 and 2010 other than some diverticulosis and small internal hemorrhoids; negative colonoscopy in 2016 GERD--upper endoscopy in revealed a small to moderate-sized hiatal hernia, but no evidence of any esophagitis or Calvo's esophagus Angioedema from her EMELIA-inhibitor 2023 Pulmonary nodule followed by Dr. Tamze Abnormal PET-CT of rectum, a lthough the [...]
[2024-07-20 09:53] LABS: Magnesium 1.5 mg/dL (1.6-2.6)
== END 2024-07-20 08:05 | disposition home or self-care (01) ==
LOC: HO.LABR 08:04
PROVIDERS: PCP Nurse Practitioner Primary Care; Visit Provider Nurse Practitioner Primary Care
DX: E21.3 Hyperparathyroidism, unspecified (principal); E03.9 Hypothyroidism, unspecified; I10 Essential (primary) hypertension
CPT/HCPCS: 36415; 83735

== ENCOUNTER 2024-07-30 07:46 | Outpatient (REF) | payer MEDICARE, SELFPAY ==
[2024-07-30 09:08] LABS: Anion Gap 12 (12-20); Blood Urea Nitrogen 16 mg/dL (9-16); Calcium 10.8 mg/dL (8.4-10.2); Carbon Dioxide 25 mmol/L (22-29); Chloride 108 mmol/L (96-108); Estimated Glomerular Filt Rate 50; Glucose Random 114 mg/dL (60-115); Magnesium 1.6 mg/dL (1.6-2.6); Phosphorus 3.1 mg/dL (2.7-4.5); Potassium 4.2 mmol/L (3.3-5.1); Sodium 141 mmol/L (135-145)
[2024-07-30 09:12] LABS: Parathyroid Hormone Intact 196.3 pg/mL (8.7-77.1)
== END 2024-07-30 07:47 | disposition home or self-care (01) ==
LOC: HO.LABR 07:46
PROVIDERS: PCP Nurse Practitioner Primary Care; Visit Provider Internal Medicine Hypertension Specialist
DX: E21.3 Hyperparathyroidism, unspecified (principal); E03.9 Hypothyroidism, unspecified; I10 Essential (primary) hypertension
CPT/HCPCS: 36415; 80048; 83735; 83970; 84100

== ENCOUNTER 2024-08-04 15:33 | Outpatient (AMB) | payer MEDICARE, SELFPAY ==
[2024-08-04 15:37] VITALS: BP 148/74; PULSE 63; O2SAT 96; BMI 36.9
--- NOTE | 2024-08-04 15:37 | HO.NEPHOV ---
Vital Signs 08/04/24 15:37 Height 5 ft 2 in Weight 202 lb BMI 36.9 BP 148/74 H Blood Pressure Location Lt brachial Position Sitting Pulse 63 Pulse Source Pulse Oximeter Pulse Oximetry (%) 96 Oxygen Delivery Method Room Air Intake Visit Reasons: 3mon follow-up w/labs/ COnf Group Reservations Coordinator Required: No Accompanied by: Spouse Allergies EMELIA Inhibitors Adverse Reaction (Severe, Verified 08/04/24 15:40) Angioedema Medication List - Last Reconciled 08/04/24 by Arsen Villegas MD acetaminophen (Tylenol Extra Strength) 500 mg PO Q6H amlodipine 10 mg PO DAILY biotin 5 mg PO DAILY cinacalcet 30 mg PO .everyother day cyanocobalamin (vitamin B-12) (Vitamin B-12) 1,000 mcg PO DAILY levothyroxine 75 mcg PO DAILY@0600 magnesium 1,250 mg PO DAILY metformin 500 mg PO DAILY@1700 nystatin (Nystop) 1 appl topical BID PRN omeprazole 40 mg PO DAILY prednisone 40 mg PO PRN psyllium husk (Metamucil) 3 tbsp PO DAILY rosuvastatin 5 mg PO DAILY spironolactone 12.5 mg PO DAILY HPI Comments Details: Elderly woman with a history of CKD in a setting of longstanding hypertension and diabetes mellitus. Recently she had an episode of gout. This was treated with prednisone. No uric acid levels are available. She has persistent hypercalcemia 09/23/23 Recently she had an episode of vertigo She was seen in the ER. Subsequently she was found to have swelling in the epiglottis area. This was thought to be angioedema due to EMELIA inhibitor. Benazepril was discontinued. Swelling is resolved. She was having nausea and epigastric discomfort and was readmitted to [facility] she was initially diagnosed with pancreatitis. She had persistent hypomagnesemia. Proton pump inhibitor was discontinued. She is on magnesium supplementation. Over the last few days she thought the nausea was related to the cinacalcet. She is stopped cinacalcet 2 days ago and the nausea has improved. During the workup she was found to have a lung nodule. She is being followed by Dr. Tamez PET scan showed benign lesion 01/07/24 Doing OK Pacemaker was changed MgO was decreased to 2 a day from 3 05/18/24 Persistent hypomagnesemia she has not taken the increased dose of Cinacalcet yet 08/04/2024. Seen by Dr. Avila Recently magnesium was 1.4. Magnesium supplementation has been increased by 250 mg to a total of 12 50 mg. Cinacalcet has been decreased by PCP to every other day. She is yet to decide about possible surgery [facility] Medical History Pacemaker at end of battery life Elevated lipase Mass of left lung AV block Type 2 diabetes mellitus with unspecified complications Pacemaker Hypercholesteremia GERD (gastroesophageal reflux disease) Hypothyroid Hypertension Surgical History History of tonsillectomy H/O total knee replacement H/O: hysterectomy Hx of cholecystectomy Family History Mother HTN (hypertension) Heart attack Father No problems noted. Maternal Grandmother Breast cancer Social History Household Members: Spouse Housing: House Do you presently have visiting nurse or other home services: No Alcohol intake: current Alcohol intake frequency: holidays/special occasions only Patient Tobacco Use Status: Never used Tobacco Advance Directives Date on File: 08/13/23 service: No Physical Exam Vital Signs: Last Vital Signs Pulse 63 08/04/24 15:37 BP 148/74 H 08/04/24 15:37 Pulse Ox 96 08/04/24 15:37 Oxygen Delivery Method Room Air 08/04/24 15:37 BMI result Body Mass Index 36.9 Comfortable Neck supple no JVD. Lungs entry equal no rales. Heart S1-S2 heard no gallop or rub. Abdomen soft nontender. Neuro alert awake oriented. No asterixis. Extremities no edema. Results Reviewed Nephrology Results: Hgb 11.2 g/dl (12.0-16.0) L 07/16/24 WBC 8.7 X10*3/uL (4.8-10.8) 07/16/24 Plt Count 272 X10*3/uL (160-400) 07/16/24 Sodium 141 mmol/L (135-145) 07/30/24 Potassium 4.2 mmol/L (3.3-5.1) 07/30/24 Chloride 108 mmol/L (96-108) 07/30/24 Carbon Dioxide 25 mmol/L (22-29) 07/30/24 BUN 16 mg/dL (9-16) 07/30/24 Creatinine 1.05 mg/dL (0.5-1.4) 07/30/24 Calcium 10.8 mg/dL (8.4-10.2) H 07/30/24 Phosphorus 3.1 mg/dL (2.7-4.5) 07/30/24 PTH Intact 196.3 pg/mL (8.7-77.1) H 07/30/24 Assessment & Plan Assessment & Plan (1) Hyperparathyroidism: Code(s): E21.3 - Hyperparathyroidism, unspecified Category: Medical (2) CKD (chronic kidney disease): Code(s): N18.9 - Chronic kidney disease, unspecified Category: Medical (3) Essential hypertension: Code(s): I10 - Essential (primary) hypertension Category: Medical Plan: Blood pressure is well controlled No changes were made to medications low-salt diet . (4) Hypercalcemia: Code(s): E83.52 - Hypercalcemia Category: Medical Plan: h/o hypercalcemia with elevated PTH suggestive of primary hyperparathyroidism. Hypomagnesemia. This may be due to the combination of using proton pump inhibitor and cinacalcet.. . Plan Parathryoid scan shows adenoma Primary hyperparathyroidism Persistent Hypercalcemia and hypomagnesemia while on Cinacalcet Seen by Dr. Austin Littlejohn once a discussed with family before agreeing for surgery. For now she will stay on cinacalcet every other day along with magnesium supplementation. If the serum calcium increases above 11mg/dL I will have to increase cinacalcet to every day. Labs ordered for next month There is no absolute contraindication for IV contrast if she needs 1. Recent serum creatinine was 1.05 mg/dL. Orders: Orders Magnesium 4 Weeks Arsen Villegas MD E21.3 - Hyperparathyroidism, unspecified, E83.52 - Hypercalcemia, N18.9 - Chronic kidney disease, unspecified Parathyroid Hormone Intact 4 Weeks Arsen Villegas MD E21.3 - Hyperparathyroidism, unspecified, E83.52 - Hypercalcemia, N18.9 - Chronic kidney disease, unspecified Basic Metabolic Panel 4 Weeks Arsen Villegas MD E21.3 - Hyperparathyroidism, unspecified, E83.52 - Hypercalcemia, N18.9 - Chronic kidney disease, unspecified Medications: Changed From cinacalcet 30 mg PO BID 90 tabs 0RF To cinacalcet 30 mg PO .everyother day Jolie Flores, DNP, BALLOON SELLER-BC Coding Level of Care Code Est Pt Level 5 (82939) Diagnoses Hyperparathyroidism E21.3 CKD (chronic kidney disease) N18.9 Essential hypertension I10 Hypercalcemia E83.52
== END 2024-08-04 16:02 | disposition home or self-care (01) ==
LOC: HO.HKA 15:33
PROVIDERS: PCP Nurse Practitioner Primary Care; Visit Provider Internal Medicine Hypertension Specialist
DX: I12.9 Hypertensive chronic kidney disease with stage 1 through stage 4 chronic kidney disease, or unspecified chronic kidney disease (principal); E21.3 Hyperparathyroidism, unspecified; N18.9 Chronic kidney disease, unspecified
CPT/HCPCS: 99215

== ENCOUNTER → 2024-08-04 15:33 | Outpatient (BNVA) | payer MEDICARE, SELFPAY | PROVIDERS: PCP Nurse Practitioner Primary Care; Visit Provider Internal Medicine Hypertension Specialist | DX: E11.22 Type 2 diabetes mellitus with diabetic chronic kidney disease (principal); I12.9 Hypertensive chronic kidney disease with stage 1 through stage 4 chronic kidney disease, or unspecified chronic kidney disease; N18.9 Chronic kidney disease, unspecified; E21.3 Hyperparathyroidism, unspecified | CPT/HCPCS: 99212 ==

== ENCOUNTER 2024-09-01 10:07 | Outpatient (REF) | payer MEDICARE, SELFPAY ==
--- OUTSIDE RECORDS SUMMARY | 2024-09-01 11:33 | XMS_ITS ---
Author Organization [facility] Address [address] [place] [address] Care Team Providers Care Typing Office Worker Name Role Phone Archie Finch MD Primary Care Provider Cash Casanova [phone] Allergies Allergen (clinical drug ingredient) Drug/Non Drug [...] Orally every 6 hrs Active Biotin Maximum 81339 MCG as directed Orally Active Cinacalcet HCl [...] W/U Status Risk Notes Problem Erosive esophagitis (09378189) Erosive esophagitis (K22.10) Active confirmed Problem Diaphragmatic hernia (82017708) Hernia, hiatal (K44.9) Active confirmed Vital Signs Blood pressure systolic 130 mm Hg 03/03/20 24 Blood pressure diastolic 74 mm Hg 024 Height 62.50 in 03/03/2024 Weight 197 lbs 03/03/2024 BMI 35.45 kg/m2 03/03/2024 Encounters Encounter Location Date Provider Diagnosis [facility] [address] [place] [address] 03/03/2024 Cash Mercado Erosive esophagitis K22.10 and [...] LULI DE LUNA EDOB:1945 (78 yo F)Acc No.[id number]:03/03/2024 Progress Notes Patient:?LULI DE LUNA Provider:?Cash Mercado MD :1945???Age:78 Y???Sex:Female D ate:03/03/2024 Address:[address] [place] [address], [facility] Pcp:Archie Finch MD Subjective: * Chief Complaints: [...] Screen?Points: 0, Interpretation: Negative.?Miscellaneous:?Marital status: . 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 ???Nonsmoker; no sig [...] as needed Orally every 6 hrsBiotin Maximum 05687 MCG Tablet Disintegrating as directed Orally Spironolactone [...] needed Orally every 6 hrsTaking Biotin Maximum 17153 MCG Tablet Disintegrating as directed Orally Taking [...] every morning.?? * Procedure Codes:?1036F TOBAC CO NON-ZMRME8324 BP SCR NOT PRFRM REC REASON NOS [...] MD Date:? 024 Generated for Printi ng/Opal/eTransmitting on:?09/01/2024 11:33 AM EDT History and Physical Notes * [...]
--- OUTSIDE RECORDS SUMMARY | 2024-09-01 11:33 | XMS_ITS | Clinical Summary ---
Author Organization [facility] ity Address [address] [place] [address] Care Team Providers Care Training And Development Director Name Role Phone Unavailable Primary Care Provider [...] Vaccines (1 of 2) 12/07/1993 RSV Immunization Adult Patie nts (1 - 1-dose 75+ series) 12/07/2018 Depression Screening 12/10/2023 Falls Risk Assessment 12/10/2023 Osteoporosis Screening (Bone Density Screening) 12/10/2023 Social Influencers of Health Screening 12/10/2023 COVID-19 Vaccine ( - 2023-2 5 season) 2024 Influenza Vaccine (Season Ended) 2025 HIB Vaccines Aged Out No longer eligi [...] age to complete this topic Meningococcal B Vaccine Aged Out No l onger eligible based on patient's age to complete this topic RSV Immunization Patients Un ebonie 20 months Aged Out No longer eligible b ased on patient's age to complete this topic Varicella Vaccines Aged Out No longer eligible based on patient's age to complete this topic
--- OUTSIDE RECORDS SUMMARY | 2024-09-01 11:33 | XMS_ITS ---
Author Organization [facility] Address [address] [place] [address] Care Team Providers Care Continuity Writer Name Role Phone Archie Finch MD Primary Care Provider Cash Casanova [phone] REASON FOR VISIT out of omeprazole requesting r/f Encounters Encounter Location Date Provider Diagnosis [facility] [address] [place] [address] 03/26/2024 Cash Mercado Plan Of Treatment No Information Progress Notes * LULI DE LUNA EDOB:1945 (78 yo F)Acc No.[id number]:03/26/2024 Patient:?LULI DE LUNA :1945???Age:78 Y???Sex:Female Address:[address] [place] [address], [place] [address] * true * Date:? Generated for Printi ng/Opal/eTransmitting on:?09/01/2024 11:33 AM EDT
--- OUTSIDE RECORDS SUMMARY | 2024-09-01 11:33 | XMS_ITS ---
Author Organization [facility] Address [address] [place] [address] Care Team Providers Care Manager Maintenance Name Role Phone Arcihe Finch MD Primary Care Provider Cash Casanova [phone] Encounters Encounter Location Date Provider Diagnosis [facility] [address] [place] [address] 03/15/2024 Cash Mercado Plan Of Treatment No Information Progress Notes * LULI DE LUNA EDOB:1945 (78 yo F)Acc No.[id number]:03/15/2024 Patient:?LULI DE LUNA :1945???Age:78 Y???Sex:Female Address:[address] [place] [address] * true * Date:? Generated for Nehemiah ashford/Opal/eTransmitting on:?09/01/2024 11:33 AM EDT
--- OUTSIDE RECORDS SUMMARY | 2024-09-01 11:33 | XMS_ITS | Encounter Summary ---
Author Organization [facility] Address [address] [facility] [address] [place] [address] Phone Care Team Providers Care Clerk Of Court Name Role Phone Carmita Dietz PARIMUTUEL CLERK-C Primary Care Provider + Reason for Visit * Reason Comments Med Refill Encounter Details Date Type Department Care Team (Late st Contact Info) Description 02/27/2023 Refill [facility] [address] [place] [phone] Arsen Villegas MD Social History Tobacco Use [...] on filedocumented in this encounter Care Teams Clerk Of Court Relationship Specialty Start Date End Date Carmita Dietz NP-C [address], [address] [place] [address] PCP - General Nurse Practitioner 07/18/22 documented as of this encounter
--- OUTSIDE RECORDS SUMMARY | 2024-09-01 11:33 | XMS_ITS | Clinical Summary ---
Author Organization [facility] Address [address] [place] [address], [place] [address] Care Team Providers Care Retail Sales Associate Seasonal Name Role Phone Carmita Dietz COCOA ROASTER-C Primary Care Provider + Allergies No known [...] 1 (one) time each day Active Biotin 63485 MCG tablet dispersible Take by mouth Active [...] in situ 01/09/20182022 Overview (12/13/2022): [employer] Immunizations Immunization Administration Dates Next Due Influenza, Unspecified 02/27/2022,02/11/2016 [...] Due Date Last Done Comments Pneumococcal Vaccine: 50+ Years (1 of 2 - PCV) 12/07/1962 Diabetes: Hemoglobin A1C 07/18/2022 Diabetes: Ophthalmology Exam 07/18/2022 Diabetes: Pedal Pulse Checked 07/18/2022 Diabetes: Sensory Foot Exam 07/18/2022 Diabetes: Visual Foot Exam 07/18/2022 Influenza Vaccine (Season Ended) 2025 02/27/2022, 02/11/2016 Hepatitis B Vaccine Aged Out No longe r eligible based on patient's age to complete this topic Insurance [facility] Care Teams Retail Sales Associate Seasonal Relationship Specialty Start Date End Date Carmita Dietz NP-C [address], [address] [place] [address] PCP - General Nurse Practitioner 07/18/22
--- OUTSIDE RECORDS SUMMARY | 2024-09-01 11:34 | XMS_ITS | Patient Health Record ---
Author Organization [facility] Address [address] [place] [address] Care Team Providers Care Thermal Spray Operator Name Role Phone Archie Finch MD Primary Care Provider Cash Casanova Unavailable [phone] Allergies Allergen (clinical drug ingredient) Drug/Non Drug Allergy documented on EMR Reaction Allergy Type Onset Date Status angiotensin-converting enzyme inhibitor (FN) EMELIA Inhibitors Unknown Drug Allergy Acti ve Results Component Value Reference Range Notes Glucose, Whole Blood Reviewed date:10/03/2023 09:15:19 AM Interpretation: Performing Lab:[facility], [address] [place] [phone] Notes/Report: Glucose, Whole Blood 128 60-115 mg/dL METER # : [id number] Pathology Reviewed date:10/19/2023 09:51:24 PM Interpretation: Performing Lab:[facility], [address] [place] [phone] Notes/Report: ---- Name: Ellis Fishman Age/Sex: 77/F : 1945 Unit#: [id number] Attend Dr: Cash Mercado Re10/03/23 [place] [facility] [place] Disch: ---- SPEC : [id number] RECD : 10/03/23 STATUS: GEOVANNA FERNANDEZ NUM: [id number] JOSE A: 10/03/[address] [facility] [address]: Cash Mercado ENTERED: 10/03/23-01 29 SP TYPE: Surgical OTHR DR: Carmita Dietz DEPILATORY PAINTER ORDERED: HE Stain/3, Gross Micro L4, IHC, [...] stains on A1. Copies To: Carmita Dietz DEPILATORY PAINTER [address] [facility] [address] [place] [address] Cash Mercado [address] [place] [address] [id number] [place] [address] ---- Signed (signature on file) Mellissa [...] Orally every 6 hrs Active Biotin Maximum 33506 MCG as directed Orally Active Rosuvastatin Calcium [...] W/U Status Risk Notes Problem Epigastric pain (15309273) Epigastric pain (R10.13) Active confirmed Problem 338965122 Encounter for screening for malignant neoplasm of colon (Z12.11) Active confirmed Problem 528865150 History of adenomatous polyp of colon (Z86.010) Active confirmed Problem Ulcer of esophagus (23707300) Ulcer of esophagus without bleeding (K22.10) Active confirmed Problem Diverticular disease of colon (950717487) Diverticulosis of large intestine without perforation or abscess without bleeding (K57.30) Active confirmed Problem 999357540 Gastroesophageal reflux disease without esophagitis (K21.9) Active confirmed Problem Hiatal hernia (09708416) Hiatal hernia (K44.9) Active confirmed Problem Chronic gastritis (0935818) Gastritis, chronic (K29.50) Active confirmed Problem Computed tomography result abnormal (223268962) Abnormal CT scan, colon (R93.3) Active confirmed Problem Erosive esophagitis (35868483) Erosive esophagitis (K22.10) Active confirmed Problem 785282714 Irregular bowel habits (R19.8) Active confirmed Problem 78029234 Incontinence of feces, unspecified fecal incontinence type (R15.9) Active confirmed Problem Diaphragmatic hernia (67394556) Hernia, hiatal (K44.9) Active confirmed Problem Gastroesophageal reflux disease (278655326) Chronic GERD (K21.9) Active confirmed Vital Signs Temperature 96.9 degrees Fahrenheit 09/18/2023 Blood pressure diastolic 74 mm Hg 03/03/2024 Height 62.50 in 03/03/2024 Blood pressure systolic 130 mm Hg 03/03/2024 Weight 197 lbs 03/03/2024 BMI 35.45 kg/m2 03/03/2024 Encounters Encounter Location Date Provider Diagnosis [facility] [address] [place] [phone] 10/03/[address] scan, co karena R93.3 ; Diverticulosis of large intestine without perforation or abscess without bleeding K57.30 ; Other hemorrhoids K64.8 ; Ulcer of esophagus without bleeding K22.10 ; Hiatal hernia K44.9 ; Gastritis, chronic K29.50 ; Hematemesis K92.0 and Abdominal pain R10.9 [facility] [address] [place] [phone] 09/18/[address] scan, co karena R93.3 ; Chronic GERD K21.9 ; Epigastric pain R10.13 and Hiatal hernia K44.9 [facility] [address] [place] [address], [place] [address] 03/03/2024 Cash Mercado Erosive esophagitis K22.10 and Hernia, hiatal K44.9 [facility] [address] [place] [address] 09/22/2023 Cash Mercado [facility] [address] [place] [address] 10/03/2023 Cash Mercado [facility] [address] [place] [address] 03/15/2024 Cash Mercado [facility] [address] [place] [address] 03/26/2024 Cash Mercado Assessments Encounter Date Diagnosis [...] the procedures. She is going away to [place] next week and the procedures will be [...] the procedures. She is going away to [place] next week and the procedures will be [...] the procedures. She is going away to [place] next week and the procedures will be [...] the procedures. She is going away to [place] next week and the procedures will be performed later in September after she returns. Luli and her were comfortable with this plan. Thank you again for allowing me to participate in Llui's care. I shall continue to keep you [...] Start Date Coverage End Date [facility] [address] [address] [place] [address] [phone] [id number] LULI FISHMAN Self - patient is the [...]
[2024-09-01 11:54] LABS: Parathyroid Hormone Intact 201.7 pg/mL (8.7-77.1)
[2024-09-01 11:58] LABS: Anion Gap 12 (12-20); Blood Urea Nitrogen 23 mg/dL (9-16); Calcium 10.7 mg/dL (8.4-10.2); Carbon Dioxide 24 mmol/L (22-29); Chloride 107 mmol/L (96-108); Estimated Glomerular Filt Rate 46; Glucose Random 107 mg/dL (60-115); Magnesium 1.6 mg/dL (1.6-2.6); Potassium 4.3 mmol/L (3.3-5.1); Sodium 139 mmol/L (135-145)
== END 2024-09-01 10:08 | disposition home or self-care (01) ==
LOC: HO.LAB 10:07
PROVIDERS: PCP Nurse Practitioner Primary Care; Visit Provider Internal Medicine Hypertension Specialist
DX: E83.52 Hypercalcemia (principal); N18.9 Chronic kidney disease, unspecified
CPT/HCPCS: 36415; 80048; 83735; 83970

== ENCOUNTER 2024-09-03 13:36 | Outpatient (AMB) | payer MEDICARE, SELFPAY ==
--- NOTE | 2024-09-03 13:56 | A.OFFVIS_ITS ---
Vital Signs 09/03/24 13:57 Height 5 ft 2 in Weight 202 lb BMI 36.9 BP 102/60 Blood Pressure Location Rt brachial Position Sitting Pulse 105 H Pulse Source Doppler Pulse Oximetry (%) 96 Oxygen Delivery Method Room Air Intake Visit Reasons: faina Allergies EMELIA Inhibitors Adverse Reaction (Severe, Verified 09/03/24 14:03) Angioedema HPI HPI faina: Details: 77-year-old lady, lifetime nonsmoker, with no family history of lung disease, but family history of breast cancer recently admitted and treated for pancreatitis. On CT abdomen obtained to evaluate abdominal pain left basilar pulmonary nodule was noted. Dedicated CT chest did not demonstrate any other nodules. Patient denied unintended weight loss. Patient had an outpatient PET CT that did not demonstrate significant FDG uptake in the previously noted nodule, but has some mild peripheral uptake and also FDG uptake in the rectum. Patient continues on CPAP therapy with good control of her sleep apnea symptoms. Her six-month follow-up CT chest showed no changes in underlying index pulmonary nodule. [facility] Medical History Pacemaker at end of battery life Elevated lipase Mass of left lung AV block Type 2 diabetes mellitus with unspecified complications Pacemaker Hypercholesteremia GERD (gastroesophageal reflux disease) Hypothyroid Hypertension Surgical History History of tonsillectomy H/O total knee replacement H/O: hysterectomy Hx of cholecystectomy Family History Mother HTN (hypertension) Heart attack Father No problems noted. Maternal Grandmother Breast cancer Social History Household Members: Spouse Housing: House Do you presently have visiting nurse or other home services: No Alcohol intake: current Alcohol intake frequency: holidays/special occasions only Patient Tobacco Use Status: Never used Tobacco Advance Directives Date on File: 08/13/23 service: No Review of Systems Const Denies daytime sleepiness, Denies excessive sweating, Denies fatigue, Denies fever(s), Denies lethargy, Denies malaise, Denies night sweats, Denies snoring and Denies weight loss Eyes Denies blurry vision and Denies itchy eyes ENT Denies nasal congestion, Denies post nasal drip, Denies sinus pain, Denies sinus pressure and Denies other ( Thrush) Card Denies chest pain, Denies pedal edema, Denies dyspnea, Denies orthopnea and Denies paroxysmal nocturnal dyspnea Resp Denies cough, Denies hemoptysis, Denies excessive phlegm production, Denies dyspnea, Denies snoring and Denies wheezing GI Denies abdominal pain and Denies heartburn Musc Denies myalgias, Denies arthralgias and Denies joint swelling Skin/Breast Denies rash Neuro Denies memory loss and Denies seizure-like activity Psych Denies abnormal sleep pattern, Denies anxiety and Denies memory loss Endo Denies excessive sweating, Denies fatigue and Denies heat intolerance Abe/Lymph Denies easy bruising Aller/Immun Denies itchy eyes, Denies seasonal rhinorrhea and Denies wheezing Physical Exam Vital Signs: Last Vital Signs Pulse 105 H 09/03/24 13:57 BP 102/60 09/03/24 13:57 Pulse Ox 96 09/03/24 13:57 Oxygen Delivery Method Room Air 09/03/24 13:57 BMI result Body Mass Index 36.9 Const General: no acute distress and alert Nutritional Appearance: obese Orientation/consciousness: Other orientation findings ( oriented) HEENT Head: Yes atraumatic Eyes General: appearance normal, both eyes and all related structures Sclerae: sclerae normal EOM: EOMs intact bilaterally Neck Neck: Yes supple Lymphatic: no lymphadenopathy noted Resp Effort & Inspection: normal respiratory effort and no use of accessory muscles Auscultation: clear to auscultation bilaterally Cardio Rate: regular rate Rhythm: regular rhythm Heart sounds: no gallops, no murmurs and no rubs Skin General skin exam: other ( warm) Extrem General: No clubbing, No cyanosis and No edema Assessment & Plan Assessment & Plan (1) Pulmonary nodule 1 cm or greater in diameter: Code(s): R91.1 - Solitary pulmonary nodule Category: Medical Plan: Stable on CT chest follow-up in [address] chest in 12 months from prior one. (2) FAINA (obstructive sleep apnea): Code(s): G47.33 - Obstructive sleep apnea (adult) (pediatric) Category: Medical Plan: Well controlled on current CPAP therapy. Continue CPAP therapy. Therapy and compliance report reviewed - patient is benefitting from and is compliant with noninvasive positive pressure ventilation treatment, using it greater than 70% of the time, more than 4 hours per night. Orders: Orders CT chest wo IV con 04/23/25 R91.1 - Solitary pulmonary nodule Coding Level of Care Code Est Pt Level 4 (00043) Diagnoses Pulmonary nodule 1 cm or greater in diameter R91.1 FAINA (obstructive sleep apnea) G47.33
[2024-09-03 13:57] VITALS: BP 102/60; PULSE 105; O2SAT 96; BMI 36.9
--- OUTSIDE RECORDS SUMMARY | 2024-09-03 15:58 | XMS_ITS | Clinical Summary ---
Author Organization [facility] it[facility] Address [address] [place] [address] Care Team Providers Care Foreign Exchange Student Coordinator Name Role Phone Unavailable Primary Care Provider [...]
--- OUTSIDE RECORDS SUMMARY | 2024-09-03 15:58 | XMS_ITS | Encounter Summary ---
Author Organization [facility] Address [address] [facility] [address] [place] [address] Phone Care Team Providers Care Drawing Supervisor Name Role Phone Carmita Dietz [employer] Primary Care Provider + Reason for Visit * Reason Comments Med Refill Encounter Details Date Type Department Care Team (Late st Contact Info) Description 02/27/2023 Refill [facility] [address] [place] [phone] Arsen Villegas MD Social History Tobacco Use [...] on filedocumented in this encounter Care Teams Drawing Supervisor Relationship Specialty Start Date End Date Carmita Dietz NP-C [address], [address] [place] [address] PCP - General Nurse Practitioner 07/18/22 documented as of this encounter
--- OUTSIDE RECORDS SUMMARY | 2024-09-03 15:59 | XMS_ITS | Data Portability ---
Author Organization [facility], [facility] Address [address] [place] [address] Care Team Providers Care Software Implementation Project Manager Name Role Phone JOANNE FITZGERALD OTHER JAMAAL HAM Mill Tender JACOBO ABAD Primary Care Provider Assessment Encounter [...] Lab renal function panel, serum 2024 025 [facility], [address], [place], [address], 07/10/2024 12:02:11 vitamin D, 25-hydro xy, total, serum 2024 025 [facility], [address], [place], [address], 07/10/2024 12:18:59 PTH (parathy roid hormone) , intact + calcium, serum or plasma 2024 025 [facility], [address], [place], [address], 06/16/2024 13:10:32 calcium, 24-hour urine 2024 025 [employer] [facility], [address], [place], [address], 07/10/2024 13:00:44 creatini ne, 24-hour urine 2024 025 [facility], [address], [place], [address], 07/10/2024 13:00:45 phosphor us, 24-hour urine 2024 025 [facility], [address], [place], [address], 07/10/2024 13:00:48 volume, total, 24-hour urine 2024 025 [facility], [address], [place], [address], 06/16/2024 13:10:32 CASR gene full mutation analysis , blood or tissue 2024 025 [facility], [address], [place], [address], 06/30/2024 13:10:31 vitamin D, 25-hydro xy, total, serum 2019 021 [facility], [address], [place], [address], 02/02/2021 11:16:20 HbA1c (hemoglo bin A1c), blood 2019 020 [facility], [address], [place], [address], 09/02/2020 13:55:20 CMP, serum or plasma 2019 021 [facility], [address], [place], [address], 09/02/2020 11:43:26 CMP, serum or plasma 2020 021 [facility], [address], [place], [address], 02/02/2021 11:26:12 HbA1c (hemoglo bin A1c), blood 2020 021 [facility], [address], [place], [address], 02/02/2021 10:57:24 TSH, serum or plasma 2019 021 [facility], [address], [place], [address], 02/02/2021 11:26:16 T4, free, serum 2019 021 [facility], [address], [place], [address], 02/02/2021 11:26:14 HbA1c (hemoglo bin A1c), blood 2018 019 [facility], [address], [place], [address], 06/12/2019 15:32:59 CMP, serum or plasma 2018 019 [facility], [address], [place], [address], 06/12/2019 16:09:37 TSH, serum or plasma 2018 019 [facility], [address], [place], [address], 06/12/2019 16:09:40 T4, free, serum 2018 019 [facility], [address], [place], [address], 06/12/2019 16:09:39 vitamin D, 25-hydro xy, total, serum 2017 019 [facility], [address] [place] [address], [address], 06/27/2018 14:55:41 renal function panel, serum 2017 019 [facility], [address], [address], 02/02/2019 14:46:53 Referral None recorded . Procedures None recorded . Surgeries None recorded . Imaging None recorded . Medication Orders levothyr oxine 75 mcg tablet 2020 021 [email or web address] [id number], [address] [place], [address], 06/16/2024 11:33:34 levothyr oxine 75 mcg tablet 2017 018 [email or web address] [id number], [address] [place], [address], 06/16/2024 11:33:34 Patient TargetsNo targets recorded. Patient Instructions Encounter Date Encounter Id Patient Instructions Last Modified By Organization Details Last Modified Time 03/27/2019 [id number] - Get labs done beginning in May [...] feet [email or web address] Not available 03/27/2019 11:29:50 04/01/2020 [id number] - Get labs done beginning in May [...] PCP. [email or web address] Not available 04/01/2020 09:43:27 04/05/2021 [id number] - Continue taking thyroid hormone every day [...] [email or web address] Not availabl e 04/05/2021 22:02:24 06/16/2024 [id number] - Continue taking thyroid hormone every day [...] T4 1.5 NG/dL 0.9-1. 7 Not Available [facility] (Out[facility] [address] [place], [address], 03/12/2018 13:41:14 03/12/20 18 03/12/2018 lfts (hepa tic panel ) alkaline phosphatase 52 U/L 39-117 Not Available [facility] (Outpatient) [address] [place], [address], 03/12/2018 13:41:18 03/12/20 18 03/12/2018 lfts (hepa tic panel ) total bilirubin 0.3 mg/dL 0.0-1. 2 Not Available [facility] (Outpatient) [address] [place], [address], 03/12/2018 13:41:18 03/12/20 18 03/12/2018 lfts (hepa tic panel ) direct bilirubin <0.2 mg/dL 0-0.3 Not Available [facility] (Outpatient) [address] [place], [address], 03/12/2018 13:41:18 03/12/20 18 03/12/2018 lfts (hepa tic panel ) bilirubin (indirect) NOT CALCUL ATED mg/dL 0-1.5 Not Available [facility] (Outpatient) [address] [place], [address], 03/12/2018 13:41:18 03/12/20 18 03/12/2018 lfts (hepa tic panel ) AST 14 U/L 0-37 Not Available [facility] (Outpatient) [address] [place], [address], 03/12/2018 13:41:18 03/12/20 18 03/12/2018 lfts (hepa tic panel ) ALT 9 U/L 0-40 Not Available [facility] (Outpatient) [address] [place], [address], 03/12/2018 13:41:18 03/12/20 18 03/12/2018 lfts (hepa tic panel ) total protein 7.7 g/dL 6.5-8. 0 Not Available [facility] (Outpatient) [address] [place], [address], 03/12/2018 13:41:18 03/12/20 18 03/12/2018 lfts (hepa tic panel ) albumin 4.4 g/dL 3.9-4. 8 Not Available [facility] (Outpatient) [address] [place], [address], 03/12/2018 13:41:18 03/12/20 18 03/12/2018 lfts (hepa tic panel ) globulin 3.3 g/dL 1-4.8 Not Available [facility] (Outpatient) [address] [place] [address], [address], 03/12/2018 13:41:18 03/12/20 18 03/12/2018 lfts (hepa tic panel ) A/G ratio 1.33 ratio 1.00-4 .80 Not Available [facility] (Outpatient) [address] [place] [address], [address], 03/12/2018 13:41:18 03/12/20 18 03/12/2018 TSH, serum or plasm a TSH 0.81 uIU/m L 0.27-4 .20 Not Available [facility] (Outpatient) [address] [place] [address], [address], 03/12/2018 13:41:19 03/12/20 18 03/12/2018 vitam in D, 25-hy droxy , total , serum 25 oh vit D (total) >60 NG/mL 30-60 high Not Available [facility] (Outpatient) [address] [place] [address], [address], 03/12/2018 15:16:52 06/27/19 19 06/27/2018 vitam in D, 25-hy droxy , total , serum 25OH vitamin D 52.2 NG/mL (20-50 ) high Serum 25OHD : Great er than 50 ng/ml : linette garduno vitam in D. Refer ence: [facility] Data Brief : No.59 July: Vitam in D Statu s: Unite d State s: 2000- 2005 As of , Vitam in D, 25-Hy droxy assay has been simpson ed. In some [facility], the new assay may yield a highe [...] Go To The Location Of Their Choice, [id number] 06/27/2018 22:36:17 06/27/1906/27/2018 renal funct ion panel [...] Go To The Location Of Their Choice, [id number] 06/27/2018 22:36:17 08/12/1908/11/2018 renal funct ion panel , serum sodium 140 mmol/ L 133-14 6 Not Available [facility] (Outpatient) [address] [place], [address], 08/11/2018 17:28:23 08/12/1908/11/2018 renal funct ion panel , serum potassium 4.9 mmol/ L 3.3-5. 1 Not Available [facility] (Outpatient) [address] [place], [address], 08/11/2018 17:28:23 08/12/1908/11/2018 renal funct ion panel , serum chloride 103 mmol/ L 96-108 Not Available [facility] (Outpatient) [address] [place], [address], 08/11/2018 17:28:23 08/12/19 19 08/11/2018 renal funct ion panel , serum CO2 23 mmol/ L 21-35 Not Available [facility] (Outpatient) [address] [place], [address], 08/11/2018 17:28:23 08/12/19 19 08/11/2018 renal funct ion panel , serum glucose 111 mg/dL 70-99 high Not Available [facility] (Outpatient) [address] [place], [address], 08/11/2018 17:28:23 08/12/19 19 08/11/2018 renal funct ion panel , serum BUN 20 mg/dL 6-19 high Not Available [facility] (Outpatient) [address] [place], [address], 08/11/2018 17:28:23 08/12/19 19 08/11/2018 renal funct ion panel , serum creatinine 1.30 mg/dL 0.5-1. 5 Not Available [facility] (Outpatient) [address] [place], [address], 08/11/2018 17:28:23 08/12/19 19 08/11/2018 renal funct ion panel , serum calcium 10.8 mg/dL 8.4-10 .3 high Not Available [facility] (Outpatient) [address] [place], [address], 08/11/2018 17:28:23 08/12/19 19 08/11/2018 renal funct ion panel , serum phosphorus 2.7 mg/dL 2.7-4. 5 Not Available [facility] (Outpatient) [address] [place], [address], 08/11/2018 17:28:23 08/12/19 19 08/11/2018 renal funct ion panel , serum albumin 4.5 g/dL 3.9-4. 8 Not Available [facility] (Outpatient) [address] [place], [address], 08/11/2018 17:28:23 08/12/19 19 08/11/2018 renal funct ion panel , serum eGFR 40 mL/mi n/1.7 3m2 >59 low If patie nt is black , multi ply resul t by 1.159 . Estim ated glome rular filtr ation rate calcu lated using the CKD-E PI equat ion. Not Available [facility] (Outpatient) [address] [place], [address], 08/11/2018 17:28:23 08/12/19 19 08/11/2018 renal funct ion panel , serum anion gap 19 mmol/ L 10-20 Not Available [facility] (Outpatient) [address] [place], [address], 08/11/2018 17:28:23 03/23/20 19 03/23/2019 vitam in D, 25-hy droxy , total , serum 25OH vitamin D 42.2 NG/mL (20-50 ) Serum 25OHD : 20 to 50 ng/mL : suffi cient in vitam in D. Refer ence: [facility] Data Brief : No.59 July: Vitam in D Statu s: Unite d State s: 2000- 2005 Not Available [facility] (Centralized Electronic Ordering - All Locations) Patient Can Go To The Location Of Their Choice, [id number] 03/23/2019 18:54:58 03/23/20 19 03/23/2019 renal funct ion panel , serum glucose 84 mg/dL (70-99 ) Not Available [facility] (Centralized Electronic Ordering - All Locations) Patient Can Go To The Location Of Their Choice, [id number] 03/23/2019 19:05:49 03/23/20 19 03/23/2019 renal funct ion panel , serum BUN 24 mg/dL (8-23) high Not Available [facility] (Centralized Electronic Ordering - All Locations) Patient Can Go To The Location Of Their Choice, [id number] 03/23/2019 19:05:49 03/23/20 19 03/23/2019 renal funct ion panel , serum creatinine 1.5 mg/dL (0.5-1 .0) high Not Available [facility] (Centralized Electronic Ordering - All Locations) Patient Can Go To The Location Of Their Choice, [id number] 03/23/2019 19:05:49 03/23/2003/23/2019 renal funct ion panel , serum sodium 141 mmol/ L (133-1 45) Not Available [facility] (Centralized Electronic Ordering - All Locations) Patient Can Go To The Location Of Their Choice, [id number] 03/23/2019 19:05:49 03/23/2003/23/2019 renal funct ion panel , serum potassium 4.9 mmol/ L (3.6-5 .2) Not Available [facility] (Centralized Electronic Ordering - All Locations) Patient Can Go To The Location Of Their Choice, [id number] 03/23/2019 19:05:49 03/23/2003/23/2019 renal funct ion panel , serum chloride 104 mmol/ L (98-10 7) Not Available [facility] (Centralized Electronic Ordering - All Locations) Patient Can Go To The Location Of Their Choice, [id number] 03/23/2019 19:05:49 03/23/2003/23/2019 renal funct ion panel , serum bicarbonate 25 mmol/ L (22-29 ) Not Available [facility] (Centralized Electronic Ordering - All Locations) Patient Can Go To The Location Of Their Choice, [id number] 03/23/2019 19:05:49 03/23/2003/23/2019 renal funct ion panel , serum anion gap 12 (4-17) Not Available [facility] (Centralized Electronic Ordering - All Locations) Patient Can Go To The Location Of Their Choice, [id number] 03/23/2019 19:05:49 03/23/2003/23/2019 renal funct ion panel , serum albumin 4.2 gm/dL (3.4-4 .8) Not Available [facility] (Centralized Electronic Ordering - All Locations) Patient Can Go To The Location Of Their Choice, [id number] 03/23/2019 19:05:49 03/23/2003/23/2019 renal funct ion panel , serum calcium 10.9 mg/dL (8.6-1 0.5) high Not Available [facility] (Centralized Electronic Ordering - All Locations) Patient Can Go To The Location Of Their Choice, [id number] 03/23/2019 19:05:49 03/23/2003/23/2019 renal funct ion panel , serum phosphorus 3.2 mg/dL (2.5-4 .5) Not Available [facility] (Centralized Electronic Ordering - All Locations) Patient Can Go To The Location Of Their Choice, [id number] 03/23/2019 19:05:49 03/23/2003/23/2019 renal funct ion panel [...] Go To The Location Of Their Choice, [id number] 03/23/2019 19:05:49 03/23/2003/23/2019 renal funct ion panel [...] Go To The Location Of Their Choice, [id number] 03/23/2019 19:05:49 03/23/2003/27/2019 TSH, serum or plasm a TSH 1.05 mIU/m L (0.40- 4.00) Not Available [facility] (Centralized Electronic Ordering - All Locations) Patient Can Go To The Location Of Their Choice, 03/27/2019 20:19:23 06/12/19 20 06/12/2019 HbA1c (hemo globi n A1c), blood hemoglobin A1C 6.3 % 4.3-5. 8 high Not Available [facility] (Outpatient) [address] [place], [address], 06/12/2019 15:32:59 06/12/19 20 06/12/2019 lipid panel [...] hormo arnaud, sex and age. Not Available [facility] (Outpatient) [address] [place], [address], 06/12/2019 15:58:07 06/12/19 20 06/12/2019 lipid panel , blood cholesterol 176 mg/dL 0-240 Not Available [facility] (Outpatient) [address] [place], [address], 06/12/2019 15:58:07 06/12/19 20 06/12/2019 lipid panel , blood triglyceride s 199 mg/dL 30-160 high Not Available [facility] (Outpatient) [address] [place], [address], 06/12/2019 15:58:07 06/12/19 20 06/12/2019 lipid panel , blood LDL 98 mg/dL 50-129 LDL level s in terms of risk for coron amol heart disea se: <100 mg/dL : Optim al 100-1 29 mg/dL : Near or above optim al 130-1 59 mg/dL : Alyse jacobo high 160-1 89 mg/dL : High >190 mg/dL : Very High Not Available [facility] (Outpatient) [address] [place], [address], 06/12/2019 15:58:07 06/12/19 20 06/12/2019 lipid panel , blood cardiac risk ratio 4.6 3.3-4. 4 high Not Available [facility] (Outpatient) [address] [place], [address], 06/12/2019 15:58:07 06/12/19 20 06/12/2019 micro album in/cr eatin ine, mass ratio , urine urine microalbumin <1.2 mg/dL 0-2.3 Not Available [facility] (Outpatient) [address] [place], [address], 06/12/2019 16:00:19 06/12/19 20 06/12/2019 micro album in/cr eatin ine, mass ratio , urine urine creatinine 58 mg/dL Not Available [facility] (Outpatient) [address] [place], [address], 06/12/2019 16:00:19 06/12/19 20 06/12/2019 micro album in/cr eatin ine, mass ratio , urine microalb/cre ratio NOT CALCUL ATED mg/g_ cre 0-20 due to Micro album in <1.2 Not Available [facility] (Outpatient) [address] [place], [address], 06/12/2019 16:00:19 06/12/19 20 06/12/2019 CMP, serum or plasm a sodium 139 mmol/ L 133-14 6 Not Available [facility] (Outpatient) [address] [place], [address], 06/12/2019 16:09:37 06/12/19 20 06/12/2019 CMP, serum or plasm a potassium 4.8 mmol/ L 3.3-5. 1 Not Available [facility] (Outpatient) [address] [place], [address], 06/12/2019 16:09:37 06/12/19 20 06/12/2019 CMP, serum or plasm a chloride 103 mmol/ L 96-108 Not Available [facility] (Outpatient) [address] [place], [address], 06/12/2019 16:09:37 06/12/19 20 06/12/2019 CMP, serum or plasm a CO2 23 mmol/ L 21-35 Not Available [facility] (Outpatient) [address] [place], [address], 06/12/2019 16:09:37 06/12/19 20 06/12/2019 CMP, serum or plasm a BUN 21 mg/dL 6-19 high Not Available [facility] (Outpatient) [address] [place], [address], 06/12/2019 16:09:37 06/12/19 20 06/12/2019 CMP, serum or plasm a creatinine 1.20 mg/dL 0.5-1. 5 Not Available [facility] (Outpatient) [address] [place], [address], 06/12/2019 16:09:37 06/12/19 20 06/12/2019 CMP, serum or plasm a glucose 116 mg/dL 70-99 high Not Available [facility] (Outpatient) [address] [place], [address], 06/12/2019 16:09:37 06/12/19 20 06/12/2019 CMP, serum or plasm a albumin 4.4 g/dL 3.9-4. 8 Not Available [facility] (Outpatient) [address] [place], [address], 06/12/2019 16:09:37 06/12/19 20 06/12/2019 CMP, serum or plasm a total protein 7.7 g/dL 6.5-8. 0 Not Available [facility] (Outpatient) [address] [place], [address], 06/12/2019 16:09:37 06/12/19 20 06/12/2019 CMP, serum or plasm a calcium 10.9 mg/dL 8.4-10 .3 high Not Available [facility] (Outpatient) [address] [place] [address], [address], 06/12/2019 16:09:37 06/12/19 20 06/12/2019 CMP, serum or plasm a alkaline phosphatase 61 U/L 39-117 Not Available [facility] (Outpatient) [address] [place] [address], [address], 06/12/2019 16:09:37 06/12/19 20 06/12/2019 CMP, serum or plasm a total bilirubin 0.2 mg/dL 0.0-1. 2 Not Available [facility] (Outpatient) [address] [place] [address], [address], 06/12/2019 16:09:37 06/12/19 20 06/12/2019 CMP, serum or plasm a AST 22 U/L 0-37 Not Available [facility] (Outpatient) [address] [place], [address], 06/12/2019 16:09:37 06/12/19 20 06/12/2019 CMP, serum or plasm a ALT 9 U/L 0-40 Not Available [facility] (Outpatient) [address] [place] [address], [address], 06/12/2019 16:09:37 06/12/19 20 06/12/2019 CMP, serum or plasm a globulin 3.3 g/dL 1-4.8 Not Available [facility] (Outpatient) [address] [place] [address], [address], 06/12/2019 16:09:37 06/12/19 20 06/12/2019 CMP, serum or plasm a eGFR 44 mL/mi n/1.7 3m2 >59 low If patie nt is black , multi ply resul t by 1.159 . Estim ated glome rular filtr ation rate calcu lated using the CKD-E PI equat ion. Not Available [facility] (Outpatient) [address] [place], [address], 06/12/2019 16:09:37 06/12/19 20 06/12/2019 CMP, serum or plasm a anion gap 18 mmol/ L 10-20 Not Available [facility] (Outpatient) [address] [place], [address], 06/12/2019 16:09:37 06/12/19 20 06/12/2019 T4, free, serum free T4 1.4 NG/dL 0.9-1. 7 Not Available [facility] (Outpatient) [address] [place], [address], 06/12/2019 16:09:39 06/12/19 20 06/12/2019 TSH, serum or plasm a TSH 1.12 uIU/m L 0.27-4 .20 Not Available [facility] (Outpatient) [address] [place], [address], 06/12/2019 16:09:40 01/21/20 20 01/21/2020 HbA1c (hemo globi n A1c), blood hemoglobin A1C 6.1 % 4.3-5. 8 high Not Available [facility] (Outpatient) [address] [place], [address], 01/21/2020 11:26:48 01/21/20 20 01/21/2020 lipid panel [...] hormo arnaud, sex and age. Not Available [facility] (Outpatient) [address] [place], [address], 01/21/2020 11:36:33 01/21/20 20 01/21/2020 lipid panel , blood cholesterol 163 mg/dL 0-240 Not Available [facility] (Outpatient) [address] [place], [address], 01/21/2020 11:36:33 01/21/20 20 01/21/2020 lipid panel , blood triglyceride s 289 mg/dL 30-160 high Not Available [facility] (Outpatient) [address] [place], [address], 01/21/2020 11:36:33 01/21/20 20 01/21/2020 lipid panel , blood LDL 69 mg/dL 50-129 LDL level s in terms of risk for coron amol heart disea se: <100 mg/dL : Optim al 100-1 29 mg/dL : Near or above optim al 130-1 59 mg/dL : Borde rline high 160-1 89 mg/dL : High >190 mg/dL : Very High Not Available [facility] (Outpatient) [address] [place], [address], 01/21/2020 11:36:33 01/21/2001/21/2020 lipid panel , blood cardiac risk ratio 4.5 3.3-4. 4 high Not Available [facility] (Outpatient) [address] [place], [address], 01/21/2020 11:36:33 01/21/20 20 01/21/2020 vitam in D, 25-hy droxy , total , serum 25 oh vit D (total) 37 NG/mL 30-60 Not Available [facility] (Outpatient) [address] [place], [address], 01/21/2020 11:50:58 01/21/2001/21/2020 CMP, serum or plasm a sodium 137 mmol/ L 133-14 6 Not Available [facility] (Outpatient) [address] [place], [address], 01/21/2020 11:51:29 01/21/20 20 01/21/2020 CMP, serum or plasm a potassium 5.0 mmol/ L 3.3-5. 1 Not Available [facility] (Outpatient) [address] [place], [address], 01/21/2020 11:51:29 01/21/20 20 01/21/2020 CMP, serum or plasm a chloride 105 mmol/ L 96-108 Not Available [facility] (Outpatient) [address] [place], [address], 01/21/2020 11:51:29 01/21/2001/21/2020 CMP, serum or plasm a CO2 21 mmol/ L 21-35 Not Available [facility] (Outpatient) [address] [place], [address], 01/21/2020 11:51:29 01/21/2001/21/2020 CMP, serum or plasm a BUN 27 mg/dL 6-19 high Not Available [facility] (Outpatient) [address] [place], [address], 01/21/2020 11:51:29 01/21/2001/21/2020 CMP, serum or plasm a creatinine 1.50 mg/dL 0.5-1. 5 Not Available [facility] (Outpatient) [address] [place], [address], 01/21/2020 11:51:29 01/21/2001/21/2020 CMP, serum or plasm a glucose 129 mg/dL 70-99 high Not Available [facility] (Outpatient) [address] [place], [address], 01/21/2020 11:51:29 01/21/2001/21/2020 CMP, serum or plasm a albumin 4.3 g/dL 3.9-4. 8 Not Available [facility] (Outpatient) [address] [place], [address], 01/21/2020 11:51:29 01/21/20 20 01/21/2020 CMP, serum or plasm a total protein 7.3 g/dL 6.5-8. 0 Not Available [facility] (Outpatient) [address] [place], [address], 01/21/2020 11:51:29 01/21/20 20 01/21/2020 CMP, serum or plasm a calcium 11.2 mg/dL 8.4-10 .3 high Not Available [facility] (Outpatient) [address] [place], [address], 01/21/2020 11:51:29 01/21/2001/21/2020 CMP, serum or plasm a alkaline phosphatase 48 U/L 39-117 Not Available [facility] (Outpatient) [address] [place], [address], 01/21/2020 11:51:29 01/21/2001/21/2020 CMP, serum or plasm a total bilirubin 0.3 mg/dL 0.0-1. 2 Not Available [facility] (Outpatient) [address] [place], [address], 01/21/2020 11:51:29 01/21/2001/21/2020 CMP, serum or plasm a AST 15 U/L 0-37 Not Available [facility] (Outpatient) [address] [place], [address], 01/21/2020 11:51:29 01/21/2001/21/2020 CMP, serum or plasm a ALT 6 U/L 0-40 Not Available [facility] (Outpatient) [address] [place], [address], 01/21/2020 11:51:29 01/21/2001/21/2020 CMP, serum or plasm a globulin 3.0 g/dL 1-4.8 Not Available [facility] (Outpatient) [address] [place], [address], 01/21/2020 11:51:29 01/21/20 20 01/21/2020 CMP, serum or plasm a eGFR 33 mL/mi n/1.7 3m2 >59 low Estim ated glome rular filtr ation rate calcu lated using the CKD-E PI equat ion. Not Available [facility] (Outpatient) [address] [place], [address], 01/21/2020 11:51:29 01/21/20 20 01/21/2020 CMP, serum or plasm a anion gap 16 mmol/ L 10-20 Not Available [facility] (Outpatient) [address] [place], [address], 01/21/2020 11:51:29 01/21/20 20 01/21/2020 T4, free, serum free T4 1.1 NG/dL 0.9-1. 7 Not Available [facility] (Outpatient) [address] [place], [address], 01/21/2020 11:51:31 01/21/2001/21/2020 TSH, serum or plasm a TSH 1.88 uIU/m L 0.27-4 .20 Not Available [facility] (Outpatient) [address] [place], [address], 01/21/2020 11:51:33 01/21/20 20 01/21/2020 micro album in/cr eatin ine, mass ratio , urine urine microalbumin <1.2 mg/dL 0-2.3 Not Available [facility] (Outpatient) [address] [place], [address], 01/21/2020 16:09:45 01/21/20 20 01/21/2020 micro album in/cr eatin ine, mass ratio , urine urine creatinine 83 mg/dL Not Available [facility] [facility] [address] [place], [address], 01/21/2020 16:09:45 01/21/20 20 01/21/2020 micro album in/cr eatin ine, mass ratio , urine microalb/cre ratio NOT CALCUL ATED mg/g_ cre 0-20 due to Micro album in <1.2 Not Available [facility] (Outpatient) [address] [place], [address], 01/21/2020 16:09:45 09/03/19 21 09/02/2020 CMP, serum or plasm a sodium 139 mmol/ L 133-14 6 Not Available [facility] (Outpatient) [address] [place], [address], 09/02/2020 11:43:26 09/03/19 21 09/02/2020 CMP, serum or plasm a potassium 5.3 mmol/ L 3.3-5. 1 high Not Available [facility] (Outpatient) [address] [place] [address], [address], 09/02/2020 11:43:26 09/03/19 21 09/02/2020 CMP, serum or plasm a chloride 106 mmol/ L 96-108 Not Available [facility] (Outpatient) [address] [place], [address], 09/02/2020 11:43:26 09/03/19 21 09/02/2020 CMP, serum or plasm a CO2 23 mmol/ L 21-35 Not Available [facility] (Outpatient) [address] [place], [address], 09/02/2020 11:43:26 09/03/19 21 09/02/2020 CMP, serum or plasm a BUN 26 mg/dL 6-19 high Not Available [facility] (Outpatient) [address] [place], [address], 09/02/2020 11:43:26 09/03/19 21 09/02/2020 CMP, serum or plasm a creatinine 1.40 mg/dL 0.5-1. 5 Not Available [facility] (Outpatient) [address] [place], [address], 09/02/2020 11:43:26 09/03/19 21 09/02/2020 CMP, serum or plasm a glucose 114 mg/dL 70-99 high Not Available [facility] (Outpatient) [address] [place], [address], 09/02/2020 11:43:26 09/03/19 21 09/02/2020 CMP, serum or plasm a albumin 4.3 g/dL 3.9-4. 8 Not Available [facility] (Outpatient) [address] [place], [address], 09/02/2020 11:43:26 09/03/19 21 09/02/2020 CMP, serum or plasm a total protein 7.6 g/dL 6.5-8. 0 Not Available [facility] (Outpatient) [address] [place], [address], 09/02/2020 11:43:26 09/03/19 21 09/02/2020 CMP, serum or plasm a calcium 10.7 mg/dL 8.4-10 .3 high Not Available [facility] (Outpatient) [address] [place], [address], 09/02/2020 11:43:26 09/03/19 21 09/02/2020 CMP, serum or plasm a alkaline phosphatase 56 U/L 39-117 Not Available [facility] (Outpatient) [address] [place], [address], 09/02/2020 11:43:26 09/03/19 21 09/02/2020 CMP, serum or plasm a total bilirubin 0.2 mg/dL 0.0-1. 2 Not Available [facility] (Outpatient) [address] [place], [address], 09/02/2020 11:43:26 09/03/19 21 09/02/2020 CMP, serum or plasm a AST 16 U/L 0-37 Not Available [facility] (Outpatient) [address] [place] [address], [address], 09/02/2020 11:43:26 09/03/19 21 09/02/2020 CMP, serum or plasm a ALT 7 U/L 0-40 Not Available [facility] (Outpatient) [address] [place], [address], 09/02/2020 11:43:26 09/03/19 21 09/02/2020 CMP, serum or plasm a globulin 3.3 g/dL 1-4.8 Not Available [facility] (Outpatient) [address] [place] [address], [address], 09/02/2020 11:43:26 09/03/19 21 09/02/2020 CMP, serum or plasm a eGFR 36 mL/mi n/1.7 3m2 >59 low Estim ated glome rular filtr ation rate calcu lated using the CKD-E PI equat ion. Not Available [facility] (Outpatient) [address] [place] [address], [address], 09/02/2020 11:43:26 09/03/19 21 09/02/2020 CMP, serum or plasm a anion gap 15 mmol/ L 10-20 Not Available [facility] (Outpatient) [address] [place] [address], [address], 09/02/2020 11:43:26 09/03/19 21 09/02/2020 lipid panel [...] hormo arnaud, sex and age. Not Available [facility] (Outpatient) [address] [place], [address], 09/02/2020 12:00:24 09/03/19 21 09/02/2020 lipid panel , blood cholesterol 139 mg/dL 0-240 Not Available [facility] (Outpatient) [address] [place], [address], 09/02/2020 12:00:24 09/03/19 21 09/02/2020 lipid panel , blood triglyceride s 164 mg/dL 30-160 high Not Available [facility] (Outpatient) [address] [place], [address], 09/02/2020 12:00:24 09/03/19 21 09/02/2020 lipid panel , blood LDL 68 mg/dL 50-129 LDL level s in terms of risk for coron amol heart disea se: <100 mg/dL : Optim al 100-1 29 mg/dL : Near or above optim al 130-1 59 mg/dL : Olegde eddiine high 160-1 89 mg/dL : High >190 mg/dL : Very High Not Available [facility] (Outpatient) [address] [place], [address], 09/02/2020 12:00:24 09/03/1909/02/2020 lipid panel , blood cardiac risk ratio 3.7 3.3-4. 4 Not Available [facility] (Outpatient) [address] [place], [address], 09/02/2020 12:00:24 09/03/1909/02/2020 HbA1c (hemo globi n A1c), blood hemoglobin A1C 6.2 % 4.3-5. 8 high Not Available [facility] (Outpatient) [address] [place], [address], 09/02/2020 13:55:19 09/07/19 21 09/06/2020 micro album in/cr eatin ine, mass ratio , urine urine microalbumin <1.2 mg/dL 0-2.3 Not Available [facility] (Outpatient) [address] [place], [address], 09/06/2020 18:43:58 09/07/19 21 09/06/2020 micro album in/cr eatin ine, mass ratio , urine urine creatinine 34 mg/dL Not Available [facility] (Out[facility]) [address] [place], [address], 09/06/2020 18:43:58 09/07/19 21 09/06/2020 micro album in/cr eatin ine, mass ratio , urine microalb/cre ratio NOT CALCUL ATED mg/g_ cre 0-20 due to Micro album in <1.2 Not Available [facility] (Outpatient) [address] [place], [address], 09/06/2020 18:43:58 02/03/20 21 02/02/2021 HEMOG LOBIN A1C hemoglobin A1C 6.1 % 4.3-5. 8 high Not Available [facility] (Outpatient) [address] [place], [address], 02/02/2021 10:57:24 02/03/20 21 02/02/2021 LIPID PANEL [...] hormo arnaud, sex and age. Not Available [facility] (Outpatient) [address] [place], [address], 02/02/2021 11:05:04 02/03/20 21 02/02/2021 LIPID PANEL cholesterol 159 mg/dL 0-240 Not Available [facility] (Outpatient) [address] [place], [address], 02/02/2021 11:05:04 02/03/20 21 02/02/2021 LIPID PANEL triglyceride s 247 mg/dL 30-160 high Not Available [facility] (Outpatient) [address] [place], [address], 02/02/2021 11:05:04 02/03/20 21 02/02/2021 LIPID PANEL LDL 74 mg/dL 50-129 LDL level s in terms of risk for coron amol heart disea se: <100 mg/dL : Optim al 100-1 29 mg/dL : Near or above optim al 130-1 59 mg/dL : Borde rline high 160-1 89 mg/dL : High >190 mg/dL : Very High Not Available [facility] (Outpatient) [address] [place], [address], 02/02/2021 11:05:04 02/03/20 21 02/02/2021 LIPID PANEL cardiac risk ratio 4.4 3.3-4. 4 Not Available [facility] (Outpatient) [address] [place], [address], 02/02/2021 11:05:04 02/03/20 21 02/02/2021 25-OH VITAM IN D 25 oh vit D (total) 34 NG/mL 30-60 Not Available [facility] (Outpatient) [address] [place], [address], 02/02/2021 11:16:20 02/03/20 21 02/02/2021 COMPR EHENS FORTINO METAB OLIC PANEL sodium 138 mmol/ L 133-14 6 Not Available [facility] (Outpatient) [address] [place], [address], 02/02/2021 11:26:12 02/03/20 21 02/02/2021 COMPR EHENS FORITNO METAB OLIC PANEL potassium 5.2 mmol/ L 3.3-5. 1 high Not Available [facility] (Outpatient) [address] [place], [address], 02/02/2021 11:26:12 02/03/20 21 02/02/2021 COMPR EHENS FORTINO METAB OLIC PANEL chloride 107 mmol/ L 96-108 Not Available [facility] (Outpatient) [address] [place], [address], 02/02/2021 11:26:12 02/03/20 21 02/02/2021 COMPR EHENS FOTRINO METAB OLIC PANEL CO2 21 mmol/ L 21-35 Not Available [facility] (Outpatient) [address] [place], [address], 02/02/2021 11:26:12 02/03/20 21 02/02/2021 COMPR EHENS FORTINO METAB OLIC PANEL BUN 28 mg/dL 6-19 high Not Available [facility] (Outpatient) [address] [place], [address], 02/02/2021 11:26:12 02/03/20 21 02/02/2021 COMPR EHENS FORTINO METAB OLIC PANEL creatinine 1.50 mg/dL 0.5-1. 5 Not Available [facility] (Outpatient) [address] [place], [address], 02/02/2021 11:26:12 02/03/20 21 02/02/2021 COMPR EHENS FORTINO METAB OLIC PANEL glucose 117 mg/dL 70-99 high Not Available [facility] (Outpatient) [address] [place], [address], 02/02/2021 11:26:12 02/03/20 21 02/02/2021 COMPR EHENS FORTINO METAB OLIC PANEL albumin 4.3 g/dL 3.9-4. 8 Not Available [facility] (Outpatient) [address] [place], [address], 02/02/2021 11:26:12 02/03/20 21 02/02/2021 COMPR EHENS FORTINO METAB OLIC PANEL total protein 7.2 g/dL 6.5-8. 0 Not Available [facility] (Outpatient) [address] [place], [address], 02/02/2021 11:26:12 02/03/20 21 02/02/2021 COMPR EHENS FORTINO METAB OLIC PANEL calcium 11.1 mg/dL 8.4-10 .3 high Not Available [facility] (Outpatient) [address] [place], [address], 02/02/2021 11:26:12 02/03/20 21 02/02/2021 COMPR EHENS FORTINO METAB OLIC PANEL alkaline phosphatase 56 U/L 39-117 Not Available [facility] (Outpatient) [address] [place], [address], 02/02/2021 11:26:12 02/03/20 21 02/02/2021 COMPR EHENS FORTINO METAB OLIC PANEL total bilirubin 0.3 mg/dL 0.0-1. 2 Not Available [facility] (Outpatient) [address] [place], [address], 02/02/2021 11:26:12 02/03/20 21 02/02/2021 COMPR EHENS FORTINO METAB OLIC PANEL AST 14 U/L 0-37 Not Available [facility] (Outpatient) [address] [place], [address], 02/02/2021 11:26:12 02/03/20 21 02/02/2021 COMPR EHENS FORTINO METAB OLIC PANEL ALT 8 U/L 0-40 Not Available [facility] (Outpatient) [address] [place], [address], 02/02/2021 11:26:12 02/03/20 21 02/02/2021 COMPR EHENS FORTINO METAB OLIC PANEL globulin 2.9 g/dL 1-4.8 Not Available [facility] (Outpatient) [address] [place], [address], 02/02/2021 11:26:12 02/03/20 21 02/02/2021 COMPR EHENS FORTINO METAB OLIC PANEL eGFR 33 mL/mi n/1.7 3m2 >59 low Estim ated glome rular filtr ation rate calcu lated using the CKD-E PI equat ion. Not Available [facility] (Outpatient) [address] [place], [address], 02/02/2021 11:26:12 02/03/20 21 02/02/2021 COMPR EHENS FORTINO METAB OLIC PANEL anion gap 15 mmol/ L 10-20 Not Available [facility] (Outpatient) [address] [place], [address], 02/02/2021 11:26:12 02/03/20 21 02/02/2021 FREE T4 free T4 1.4 NG/dL 0.9-1. 7 Not Available [facility] (Outpatient) [address] [place], [address], 02/02/2021 11:26:14 02/03/20 21 02/02/2021 TSH TSH 0.91 uIU/m L 0.27-4 .20 Not Available [facility] (Outpatient) [address] [place], [address], 02/02/2021 11:26:15 02/03/20 21 02/02/2021 MICRO ALBUM IN/CR EATIN INE RATIO , RANDO M URINE urine microalbumin <1.2 mg/dL 0-2.3 Not Available [facility] (Outpatient) [address] [place], [address], 02/02/2021 17:50:10 02/03/20 21 02/02/2021 MICRO ALBUM IN/CR EATIN INE RATIO , RANDO M URINE urine creatinine 97 mg/dL Not Available [facility] (Out[facility]) [address] [place], [address], 02/02/2021 17:50:10 02/03/20 21 02/02/2021 MICRO ALBUM IN/CR EATIN INE RATIO , RANDO M URINE microalb/cre ratio NOT CALCUL ATED mg/g_ cre 0-20 due to Micro album in <1.2 Not Available [facility] (Outpatient) [address] [place], [address], 02/02/2021 17:50:10 07/09/19 25 07/10/2024 TIMED URINE DATA collection data 24 Not Available [facility] (Outpatient) [address] [place] [address], [address], 07/10/2024 11:40:28 07/09/19 25 07/10/2024 TIMED URINE DATA total volume 1750 mL Not Available [facility] (Out[facility]) [address] [place], [address], 07/10/2024 11:40:28 07/09/19 25 07/10/2024 CALCI UM, 24 HOUR URINE urine calcium 3.7 mg/dL Not Available [facility] (Outpatient) [address] [place], [address], 07/10/2024 13:00:44 07/09/19 25 07/10/2024 CALCI UM, 24 HOUR URINE calcium output 65 mg/to tal_o utput 100-30 0 low Not Available [facility] (Outpatient) [address] [place] [address], [address], 07/10/2024 13:00:44 07/09/19 25 07/10/2024 CREAT ININE , 24 HR URINE urine creatinine 56 mg/dL Not Available [facility] (Outpatient) [address] [place], [address], 07/10/2024 13:00:45 07/09/19 25 07/10/2024 CREAT ININE , 24 HR URINE creatinine output 980 mg/to tal_o utput 600-18 00 Not Available [facility] (Outpatient) [address] [place], [address], 07/10/2024 13:00:45 07/09/19 25 07/10/2024 PHOSP HORUS , 24 HR URINE urine phosphorus 25.0 mg/dL Not Available [facility] (Outpatient) [address] [place], [address], 07/10/2024 13:00:47 07/09/19 25 07/10/2024 PHOSP HORUS , 24 HR URINE phosphorus output 437.5 mg/to tal_o utput 400-13 00 Not Available [facility] (Outpatient) [address] [place], [address], 07/10/2024 13:00:47 07/10/19 25 07/10/2024 PARAT YURI BURGOS (PTH) parathyroid hormone 115 pg/mL 15-65 high Not Available [facility] (Outpatient) [address] [place], [address], 07/10/2024 12:02:00 07/10/19 25 07/10/2024 RENAL PANEL sodium 139 mmol/ L 133-14 6 Not Available [facility] (Outpatient) [address] [place], [address], 07/10/2024 12:02:10 07/10/19 25 07/10/2024 RENAL PANEL potassium 4.3 mmol/ L 3.3-5. 1 Not Available [facility] (Outpatient) [address] [place], [address], 07/10/2024 12:02:10 07/10/19 25 07/10/2024 RENAL PANEL chloride 104 mmol/ L 96-108 Not Available [facility] (Outpatient) [address] [place], [address], 07/10/2024 12:02:10 07/10/19 25 07/10/2024 RENAL PANEL CO2 24 mmol/ L 21-35 Not Available [facility] (Outpatient) [address] [place], [address], 07/10/2024 12:02:10 07/10/19 25 07/10/2024 RENAL PANEL glucose 124 mg/dL 70-99 high Not Available [facility] (Outpatient) [address] [place], [address], 07/10/2024 12:02:10 07/10/19 25 07/10/2024 RENAL PANEL BUN 20 mg/dL 6-19 high Not Available [facility] (Outpatient) [address] [place], [address], 07/10/2024 12:02:10 07/10/19 25 07/10/2024 RENAL PANEL creatinine 1.30 mg/dL 0.5-1. 5 Not Available [facility] (Outpatient) [address] [place], [address], 07/10/2024 12:02:10 07/10/19 25 07/10/2024 RENAL PANEL calcium 10.5 mg/dL 8.4-10 .3 high Not Available [facility] (Outpatient) [address] [place], [address], 07/10/2024 12:02:10 07/10/19 25 07/10/2024 RENAL PANEL phosphorus 3.2 mg/dL 2.7-4. 5 Not Available [facility] (Outpatient) [address] [place], [address], 07/10/2024 12:02:10 07/10/19 25 07/10/2024 RENAL PANEL albumin 3.9 g/dL 3.9-4. 8 Not Available [facility] (Outpatient) [address] [place], [address], 07/10/2024 12:02:10 07/10/19 25 07/10/2024 RENAL PANEL eGFR 42 mL/mi n/1.7 3m2 >59 low Estim ated glome rular filtr ation rate calcu lated using the CKD-E PI refit equat ion. Not Available [facility] (Outpatient) [address] [place], [address], 07/10/2024 12:02:10 07/10/19 25 07/10/2024 RENAL PANEL anion gap 15 mmol/ L 10-20 Not Available [facility] (Outpatient) [address] [place], [address], 07/10/2024 12:02:10 07/10/19 25 07/10/2024 25-OH VITAM IN D 25 oh vit D (total) 30 NG/mL 30-60 Not Available [facility] (Outpatient) [address] [place], [address], 07/10/2024 12:18:58 07/10/19 25 07/21/2024 CASR GENE SEQUE NCE casr gene sequence SEE NOTE 2024 10:13 AM (NOTE ) Test Resul t Flag Unit RefVa lue ----- ----- ----- ----- ----- ----- ----- ----- ----- ----- ----- ----- ----- - CASR Full Gene Franchesca sis Test Descr iptio n SEE NOTE Evalu ation of the CASR gene assoc iated with famil ial hypoc alciu mary hyper calce fredrick, neona miesha sever e prima ry hyper parat hyroi dism, and other CASR- relat ed condi tions . Speci men WB Whole Blood Resul t Summa ry Negat fortino Resul t No repor table varia nts were detec carlito. Inter preta tion SEE NOTE This resul t decre ases the likel ihood but does not rule out the prese nce of a varia nt in the CASR gene. Indiv idual s may have a patho genic varia nt in the CASR gene that is not detec table by the metho ds utili zed. Addit ional ly, patho genic varia nts in other genes not inter rogat ed by this assay may cause a simil ar pheno type. A claude ic consu ltati on may be of benef it. FOLLO W-UP OPTIO N(S) Refle x to Whole Exome Seque ncing : These resul ts were inter prete d from exome seque ncing data franchesca zed for the speci fic gene( s) indic ated. If clini sriram indic ated, refle x franchesca sis and inter preta tion of the whole exome using exist ing data can be compl eted by order ing WESPR /Whol e Exome Seque ncing Panel Refle x, Varie s. Note: this refle x test canno t be order ed if the curre nt testi ng was perfo rmed on a prena miesha speci men. PDF Repor t avail able at: [email or web address] :[email or web address] w.[email or web address] CCM [employer] /MACF /Repharjinder rts/C [id number] [email or web address] f6W.a shx Metho d SEE NOTE Next gener ation seque ncing (NGS) and/o r Sange r seque ncing was perfo rmed to test for the prese nce of varia nts in codin g regio ns and intro n/exo n bound [place] of the gene franchesca zed. The human genom e refer ence GRCh3 7/hg1 9 build was used for seque nce read align ment. At least 99% of the bases are cover ed at a read depth >30X. Sensi tivit y is estim ated at >99% for singl e nucle otide varia nts, >94% for indel s up to 39 base pairs , >95% for delet ions up to 75 base pairs and inser tions up to 47 base pairs . NGS and/o r a PCR-b ased quant itati ve metho d was perfo rmed to test for the prese nce of delet ions and dupli catio ns in the gene franchesca zed. See the Genes Franchesca zed field for a list of gene( s) teste d. There may be regio ns of genes that canno t be effec tivel y evalu ated for seque ncing or delet ion and dupli catio n franchesca sis as a resul t of techn ical limit ation s of the assay , inclu ding regio ns of homol ogy, high GC carol nt, and repet itive seque nces. Confi rmati on of selec t repor table varia nts was perfo rmed by jaquelin fry dolog ies based on inter nal labor atory crite johanna. See www. ayocl inicl abs.c om (TEST ID CASRG ) for detai ls regar ding genes with regio ns not routi christoph cover ed. Genes Franchesca zed CASR Discl aimer SEE NOTE Clini christi Corre latio ns The gene( s) franchesca zed by this test may have more than one assoc iated pheno type or inher fredy oneill rn. Addit ional ly, the claude ic varia nts detec carlito may have reduc ed penet vahid , varia ble expre ssivi ty, or diffe rent class ifica tions based on disea se state . Class ifica tion and repor ting of the varia nts detec carlito is based on the inten ded disea se state of the test order ed. For more infor luis cruz the pheno typic spect rum which may be invol javi for a speci fic gene, see OMIM (www. ncbi. nlm.n ih.go v/smita m) or GeneR eview s (www. gener eview s.org ). An onlin e resea [facility] y [place] Genom eConn ect (enrique mecon nect. org), a proje ct of ClinG en, is avail able for the recip ient of this claude ic test. This patie nt babatunde try colle cts de-id entif ied claude ic and healt h infor luis ramirez to advan ce the knowl edge of claude ic varia nts. [facility] is a colla borat or of ClinG en. This may not be appli cable for all tests . If testi ng was perfo rmed becau se of a clini sriram signi fican t famil y histo ry it is often usefu l to first test an affec carlito famil y membe r. Detec tion of a repor table varia nt(s) in an affec carlito famil y membe r would allow for more infor mativ e testi ng of at risk indiv idual s. To discu ss the avail abili ty of furth er testi ng optio ns or for bull tance in the inter preta tion of these resul ts, [facility] at[facility] claude ic couns elors can be conta cted at [phone]. Techn ical Limit ation s Next gener ation seque ncing may not detec t all types of genom ic varia nts. In rare cases , false negat fortino or false posit fortino resul ts may occur . The depth of cover age may be varia ble for some targe t regio ns, but assay perfo rmanc e below the minim um accep table crite johanna or for faile d regio ns will be noted . The clini christi pheno type obser javi in this indiv idual and/o r famil y may be due to claude ic varia nts not targe carlito by this test. Given these limit ation s, negat fortino resul ts do not rule out the diagn osis of a claude ic disor ebonie. If a speci fic clini christi disor ebonie is suspe cted, evalu ation by alter nativ e metho ds can be consi dered . There may be regio ns of genes that canno t be effec tivel y evalu ated for seque ncing or delet ion and dupli catio n franchesca sis as a resul t of techn ical limit ation s of the assay , inclu ding regio ns of homol ogy, high GC carol nt, and repet itive seque nces. Confi rmati on of selec t repor table varia nts was perfo rmed by jaquelin valera ies based on inter nal labor atory crite johanna. Addit ional ly, low level mosai c varia nts may not be detec carlito. This test is valid ated to detec t 95% of delet ions up to 75 base pairs (bp) and inser tions up to 47 bp. Delet ions- inser tions (deli ns) of 40 or more bp, inclu ding mobil e eleme nt inser tions , may be less relia naomi detec carlito than small er delin s. This franchesca sis targe ts singl e and multi -exon delet ions/ dupli catio ns; howev er, in some insta nces, singl e exon resol ution canno t be achie javi due to isola carlito reduc tion in seque nce cover age or inher ent genom ic compl exity . Tomás enid struc tural rearr angem ents (such as trans locat ions and inver sions ) may not be detec carlito. If the patie nt has had an allog eneic hemat opoie tic stem cell trans plant or a recen t blood trans fusio n, resul ts may be inacc urate due to the prese nce of donor DNA. Call [facility] for instr uctio ns for testi ng patie nts who have recei javi a bone marro w trans plant . This test is not desig chester to diffe renti ate betwe en somat ic and germl ine varia nts. If there is a possi bilit y that any detec carlito varia nt is somat ic, addit ional testi ng may be neces mata to [facility] [facility] the signi fican ce of resul ts. Recla ssifi catio n of Varia nts Polic y See www. ayocl inicl abs.c om (TEST ID CASRG ) for infor luis cruz the labor atory 's polic y for recla ssifi catio n of varia nts. Varia nt Evalu ation Varia nt curat ion is perfo rmed using publi shed ACMG- AMP recom menda tions as a guide line. Other gene- speci fic guide lines may also be consi dered . Varia nts class ified as benig n or likel y benig n are not repor carlito. Resul ts from in silic o evalu ation tools may simpson e over time and kiki d be inter prete d with cauti on and proflary gentile al clini christi judgm ent. TEST CLASS IFICA TION This test was devel oped and its perfo rmanc e laverne cteri stics deter mined by [facility] in a mary r consi stent with CLIA requi remen ts. This test has not been clear ed or appro javi by the U.S. Food and Drug Admin istra tion. Relea sed By James strong, Ph.D. Not Available [facility] (Outpatient) [address] [place] [address], [address], 07/21/2024 11:13:53 10/14/19 bone densi ty No observ ation [...] Details Recorded Time Disorder of thyroid gland [id number] Active 2017 [place] [facility] 8 08:28:01 Disorder of vitamin D [id number] Active 2017 [place] Walker [facility] 8 08:28:14 Hypercalc emia 33102143 Active 2017 [place] Walker [facility] 8 08:28:28 Type 2 diabetes mellitus without complicat ion 064287147 Active 2017 [place] Walker [facility] 8 08:29:28 Chronic kidney disease stage 3 676022068 Active 08/2020 lab results Lynda [place] Randall [facility], [facility] 1 10:07:59 Chronic kidney disease due to type 2 diabetes mellitus 841113282383 Active 2020 LABS 02/02/2021 GFR 33 Milana Rowland [facility] 1 09:47:09 Morbid obesity 565185832 Active 2021 BMI > or = 35 plus diagnosis of diabetes. Brenda ReddyCLEVELAND [facility], [facility] 2 10:11:12 Problem Notes None recorded. Procedures Surgical History Date Name Laterality Status Provider Name and Address Organization Details Recorded Time 8 Unlisted px accessory sinus completed Allamerrick Emerson [facility] 03/27/2019 10:35:47 Imaging Results Imaging Date [...] Name and Address Organization Details Recorded Time 789677 Product containin g angiotens in-conver ting enzyme inhibitor (product) medicatio n Not available Not available Not available 06/16/2024 04409 009 SNOMED throa t swell ing Sangeetha CejaCLEVELAND null, [facility] 5 11:32:28 Medications Name Sig Start [...] Updated DateTime 8 156.21 cm 38.3 kg/m2 80860.3 1 g 72 /min 142 mm[Hg] 73 mm[Hg] Mustapha Breen [facility] 8 09:44:24 Date Recorded Body height Body mass index (BMI) Body weight Heart rate Systolic blood pressure Diastolic blood pressure Provider Name and Address Organization Details Last Updated DateTime 9 158.12 cm 38 kg/m2 93882.5 2 g 64 /min 122 mm[Hg] 64 mm[Hg] Alla Emerson [facility] 9 10:38:49 Date Recorded Body weight Body mass index (BMI) Body height Heart rate Systolic blood pressure Diastolic blood pressure Provider Name and Address Organization Details Last Updated DateTime 1 87746.8 1 g 36.8 kg/m2 158.12 cm 86 /min 118 mm[Hg] 72 mm[Hg] Sri Leahy RN [facility] 1 09:57:09 Date Recorded Body weight Body mass index (BMI) Body height Heart rate Systolic blood pressure Diastolic blood pressure Provider Name and Address Organization Details Last Updated DateTime 5 35996.9 1 g 36.7 kg/m2 157.48 cm 92 /min 129 mm[Hg] 68 mm[Hg] Sangeetha Ceja LPN [facility] 5 11:42:20 Social History Question Answer Notes LastModified by Organizat ion Details LastModified Time Tobacco Smoking Status Never Smoker Eleazar heck [facility] 12/12/2012 08:23:45 What Is Your Level Of Alcohol Consumption? Occasional Rare [email or web address] Information not available 06/16/2024 Which Illicit Or Recreational Drugs Have You Used? 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 Information not available 09/20/2016 Live [...] Mother- age 95- arthirits HTN, thyroid problems, [place] in 60's no siblings MGM- breast cancer [...] unspecified formulation 3 completed Jolie Lopez RN [facility] 03/05/2013 10:39:33 Influenza, split virus, quadrivalent, preservative 0 completed Gayle Aguila LPN null, [facility] 04/01/2020 08:57:48 COVID-19, mRNA, LNP-S, PF, 30 mcg/0.3 mL dose 1 completed Sri Leahy RN null, [facility] 04/05/2021 09:50:59 COVID-19, mRNA, LNP-S, PF, 30 mcg/0.3 mL dose 1 completed Sri Leahy RN null, [facility] 04/05/2021 09:51:10 Influenza, split virus, quadrivalent, preservative 1 completed Sri Leahy RN null, [facility] 04/05/2021 09:51:28 Past Encounters Encounter ID Performer Location Encounter Start Date Encounter Closed Date Diagnosis/Indication Diagnosis SNOMED-CT Code Diagnosis ICD10 Code Diagnosis Note [id number] Sharron Benito [facility], [address] [address] 12/12/2012 08:00:19 12/12/2012 09:21:36 Hypercalcemia 39857957 Pt with elevated Calcium in 11 in [...] age over 50. Pt to go to [facility] labs [address], givencopy of lab slip at time of visit. BMD 08/15/12 [facility] spine-0.4, hips 01.8 neck -1.3 total, forearm +0.14 Jun 2012 Ca 11 [id number] Nalini Garay LPN [facility], [address] [address] 01/08/2013 15:42:16 01/08/2013 17:00:59 Disorder of thyroid gland 39286284 TSh 11 and has had TSH of [...] repeats labs would like to go to [address] since open Saturday AM and pt lives near there. Disorder of vitamin D 058161615 Vit D 18 and PTH slighlty elevated at 75. Caclium stable at 11.0 to 11.2 with normal/low urinary calcium. Most consistent with FHH. Will try to slowly replete D and see if PTH corrects and aches resolve. Will have her take 3000 units of Vit D daily and repeat labs when repeats TSH and FT4 in 6 weeks. Hypercalcemia 85097688 s ee above. Will continue to monitor Calcium levels. 24 hour urine studies most consistent ly with FHH. Explained to pt that people with FHH have higher set points for calcium. If correction of D and TSH does not alleviate symptoms, and calcium remain elevated then will reevaluate at that time. [id number] Nalini Garay LPN [facility], [address] [address] 03/05/2013 10:31:44 03/05/2013 11:40:00 Disorder of thyroid gland 92636629 TSH was 11 and is now in [...] repeats labs would like to go to [address] since open Saturday AM and pt lives near there. Disorder of vitamin D 828399819 Vit D is now 26. Ca normal at 10.6, Will have her increase Vit D to 4000 units to get level over 30 and continue this through the winter. Will continue to monitor Ca in renal panel. Labs q 3 months and f/u in 6 months. repeat labs with next TSH in 3 months. Hypercalcemia 72599199 C a normal at 10.6 . see above. Hx=24 hour urine studies most consistent ly with FHH. If correction of D and TSH does not alleviate symptoms, and calcium remain elevated then will reevaluate at that time. Left [place] block 41526505 TSH improved to 4 from 11. Do not think T4 could be reason for extra beat pt is feeling. Pt to have f/u with Dr. Estevez in a few weeks and will discuss with him as well. [id number] [facility], [address] [address] 09/03/2013 10:31:16 09/03/2013 11:33:21 Disorder of thyroid gland 30878350 Is seeing Dr.Kirchof rojas in a few weeks to have f/u on her LBBB (preexisti ng condition) . Pt had echo in November and told has 20-30% blockage. Pt states on ASA and statin for this. labs would like to go to [address] since open Saturday AM and pt lives near there. Disorder of vitamin D 059093884 Hypercalcemia 19460473 H x=24 hour urine studies most consistent ly with FHH. If correction of D and TSH does not alleviate symptoms, and calcium remain elevated then will reevaluate at that time. Left [place]l [place] branch block [id number] contf/u with Dr. Estevez . [id number] [facility], [address] [address] 03/04/2014 14:26:06 03/04/2014 15:23:06 Disorder of thyroid gland 41514747 Disorder of vitamin D 337092047 Hypercalcemia 96784129 H x=24 hour urine studies most consistent ly with FHH. If correction of D and TSH does not alleviate symptoms, and calcium remain elevated then will reevaluate at that time. Left bundl [place] branch block [id number] contf/u with Dr. Estevez . [id number] [facility], [address] [address] 09/21/2014 09:20:13 09/21/2014 10:22:15 Disorder of thyroid gland 95581205 TSH was 11 in 2012 and pt started on T4. TSH stable and to goal. Cont on 50 mcg daily of T4. f/u in 12 months labs q 6 months. Call if symptoms in the meantime and can decide about drawing labs sooner than recommende d date. Lab pt prefers is [address] since open Saturday AM and pt lives near there. Disorder of vitamin D 041297647 Vit D replete at 47 and Ca normal at 10.6,cont Vit D to 4000 units. Labs q 6 months and f/u yearly. Hypercalcemia 72929887 C a normal at 10.6 . see above. Hx=24 hour urine studies most consistent ly with FHH. If correction of D and TSH does not alleviate symptoms, and calcium remain elevated then will reevaluate at that time. Left bund[place] branch block [id number] Follows with Dr.Kirchof rojas --hx of LBBB (preexisti ng condition) . Pt had echo in November 2013 and told has 20-30% blockage. Pt states on ASA and statin for this. last appt May 2014 when had pacer replaced. F/u with Dr. Estevez . [id number] Maryuri Torres PA-C [facility], [address] [address] 09/20/2015 09:34:26 09/20/2015 10:19:42 Disorder of thyroid gland 60127995 E07.9 TSH 4 and pt typically in 2's. Will try 75 mcg daily and repeat labs in 8 weeks. Will contact her if dose needs further adjustment after labs. Labs q 4 months after dose stable. f/u in 12 months. Call if symptoms in the meantime and can decide about drawing labs sooner than recommende d date. Lab pt prefers is [address] since open Saturday AM and pt lives near there. Disorder of vitamin D 38 0827634 E56.9 Vit D remaining replete Ca stable at 10.6. Cont Vit D to 4000 units. Labs q 6 months (March and September) and f/u yearly. Hypercalcemia 85189647 E 83.52 PTH normal. Ca normal at 10.6 . Cont to monitor q 6 months (March and September). Hx=24 hour urine studies most consistent ly with FHH. If correction of D and TSH does not alleviate symptoms, and calcium remain elevated then will reevaluate at that time. [id number] Maryuri Torres PA-C [facility], [address] [address] 09/20/2016 09:44:08 09/20/2016 10:26:42 Disorder of thyroid gland 75534507 E07.21 Jun 2016 labs to goal on 75 mcg of T4 daily. Cont this dose with labs q 6 months. F/u in 12 months. Lab pt prefers is [address] since open Saturday AM and pt lives near there. Disorder of vitamin D 38 9483613 E56.9 see below. Cont Vit D to 4000 units. Hypercalcemia 97136370 E 83.52 PTH had been normal in [...] Type 2 chanel betes mellitus without complication 196343989 E11.9 Managed by PCP and per pt A1c under 7. [id number] Maryuri Torres PA-C [facility], [address] [address] 06/10/2017 09:27:23 06/10/2017 10:47:39 Disorder of thyroid gland 07326485 E07.21 Mar 2017 labs to goal on 75 mcg of T4 daily. Cont this dose with labs q 6 months. Keep f/u in September. Lab pt prefers is [address] since open Saturday AM and pt lives near there. Disorder of vitamin D 38 6383031 E56.9 see below. Cont Vit D to 4000 units but want to update. 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 If D remaining high will reduce D level. May be able to lower D level. Keep appt in September. Hypercalcemia 68382304 E 83.52 PTH had been normal in setting of normal Ca and Vit D. Never got repeat Nov lab from [facility], looking at results in [facility] [...] Type 2 chanel betes mellitus without complication 300828796 E11.9 Managed by PCP and per pt A1c under 7. [id number] Maryuri Torres PA-C [facility], [address] [address] 09/19/2017 09:24:45 09/19/2017 10:10:11 Disorder of thyroid gland 06203061 E07.19 August 2017 labs to goal.Cont levothyrox ine 75 mcg daily Labs q 6 months. Keep f/u in 6 months. Lab pt prefers is [address] since open Saturday AM and pt lives near there. Disorder of vitamin D 38 5833354 E56.9 Vit D was in 80's so dropped to 2000 units daily. Current testing remaining in 60's. With summer coming will have her take 1000 units daily and then in FAll (January - July) Take 2000 units in the winter. Hypercalcemia 78564928 E 83.52 PTH rising in setting of [...] Type 2 chanel betes mellitus without complication 775274058 E11.9 Managed by PCP and per pt A1c under 7 on low dose metformin ACR negative as well as of September 2017 testing with PCP. [id number] Maryuri Torres PA-C [facility], [address] [address] 03/28/2018 09:34:36 03/28/2018 10:29:32 Disorder of thyroid gland 67988135 E07.9 TSH normal Feb TSH 0.81 FT4 1.5 Cont levothyrox ine 75 mcg daily Labs q 6 months. Keep f/u in 6 months. Lab pt prefers is [address] since open Saturday AM and pt lives near there. Disorder of vitamin D 38 8781831 E56.9 03/12/18 Vit D still > 60. She had increased to 2000 units in February but do not have to increase. Will have her take 1000 units daily and check again in May 2018. 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 GFR in 30's and feel PTH abnormalit [...] Type 2 chanel betes mellitus without complication 953763647 E11.9 Managed by PCP and per pt A1c under 7 on low dose metformin. Per pt a1c 6.1 at last testing. [id number] Jamaal Ham MD [facility], [address] [address] 03/27/2019 10:18:13 03/27/2019 11:30:27 Type 2 diabetes mellitus without complication 955825513 E11.9 On metformin 500 mg daily- decreased by PCP Kristine because of increased creatinine .Doing well. With PCP's shelter , pt. asking for more diabetes care here. Disorder of vitamin D 38 5703703 E55.9 42.2 (03/31); had been low in past but not in past years. Hypercalcemia 29112041 E 83.52 FHH as evidenccd by low urinary calcium (41 mg/24hr in 10/28) and high serum calcium.Cr eat= 1.5 (lately 1.3-1.6); Ca= 10.9 (was 10.8) ; Phos= 3.2 Hypothyroidism 81896036 E03.9 On 75 mcg levothyrox ine.Doing well clinically . [id number] Jamaal Ham MD [facility], [facility] [address] [place] [address] 04/01/2020 08:45:09 04/01/2020 20:00:33 Type 2 diabetes mellitus without complication 212778711 E11.9 On metformin 500 mg daily- decreased by PCP Kristine because of increased creatinine .Doing well.a1c in 6s. no evidence of complicati ons at present. Disorder of vitamin D 38 2240582 E55.9 37 (01/30); was 42.2 (03/31); had been low in past but not in past years.Take s 1000 units daily. Hypercalcemia 57497248 E 83.52 FHH as evidenced by low urinary calcium (41 mg/24hr in 10/28) and high serum calcium.Cr eat= 1.5 (lately 1.3-1.6); Ca= 10.9 (was 10.8) ; Phos= 3.2 Hypothyroidism 83648354 E03.9 On 75 mcg levothyrox ine.Doing well clinically . Dyslipidem ia due to type 2 diabetes mellitus 4564076927 02 E78.5 2020: 163/289/36 /69;With high TG and low HDL.Encour age more activity.I f remains high, would consider either change to atorva, rosuva or possible addition of Vascepa. [id number] Jamaal Ham MD [facility], [address] [address] 04/05/2021 09:42:53 04/07/2021 06:32:39 Type 2 diabetes mellitus without complication 743685658 E11.9 On metformin 500 mg daily- decreased by PCP (Valarie Abad). Hession/Riddhi reyDoing well.a1c in 6s. no evidence of complicati ons at present. Disorder of vitamin D 38 7750234 E55.9 34 (01/31); was 37 (01/30); was 42.2 (03/31); had been low in past but not in past years.Take s 1000 units daily. Hypercalcemia 36679148 E 83.52 FHH as evidenced by low urinary calcium (41 mg/24hr in 10/28) and high serum calcium.Cr eat= 1.5 (lately 1.3-1.6); Ca= 10.9 (was 10.8) ; Phos= 3.2 Hypothyroidism 09392009 E03.9 On 75 mcg levothyrox ine.Doing well clinically . Re-order levothyrox ine today with refill x 6 but will ask pt. to have PCP refill future Rx's. Dyslipidem ia due to type 2 diabetes mellitus 6554334996 02 E78.5 2020: 159-247 (were 164)-36-74 2020: 163/289/36 /69; With high TG and low HDL.Encour age more activity.I f remains high, would consider either change to atorva, rosuva or possible addition of Vascepa. [id number] Jamaal Ham MD [facility], [address] [address] 06/16/2024 10:55:56 06/29/2024 07:56:11 Type 2 diabetes mellitus without complication 769713378 E11.9 On metformin 500 mg daily- decreased by PCP (Valarie Abad). Hession/Riddhi reyDoing well.a1c in 6s. Last was 6.9 in 2023.No evidence of complicati ons at present. Hypercalcemia 07844780 E 83.52 UNCONTROLL EDThought to be FHH [...] urinary studies.- check CASR gene mutation. Hypothyroidism 75023724 E03.9 On 75 mcg levothyrox ine.Doing well clinically . Dyslipidem ia due to type 2 diabetes mellitus 5668699832 02 E78.5 08/03: - 144/207/40 /63 on [...] ID Guarantor Name 03/28/2018 1 [place]: [employer] SERVICES Annetta E McElwey [id number] Annetta Chinyere McElwey 03/28/2018 2 [place] [id number] Annetta Chinyere McElwey [id number] Annetta Chinyere McElwey 03/27/2019 1 [place]: NATIONAL [employer]OVERNMENT SERVICES Annetta E McElwey [id number] Annetta Chinyere McElwey 03/27/2019 2 [place] [id number] Annetta Ankeny McElwey [id number] Annetta Chinyere McElwey 04/01/2020 1 [place]: [employer]ATIONAL [employer] Annetta E McElwey [id number] G40 Annetta Chinyere McElwey 04/01/2020 2 [place] [id number] Annetta Ankeny McElwey [id number] Annetta Chinyere McElwey 04/05/2021 1 MEDICARE [place]: NATIONAL [employer] SERVICES Annetta E McElwey [id number] [id number] Annetta Chinyere McElwey 04/05/2021 2 [place] [id number] Annetta Ankeny McElwey [id number] Annetta Ankeny McElwey 06/16/2024 1 MEDICARE B-[place]: NATIONAL GOVERNMENT SERVICES Annetta E McElwey [id number] G40 Annetta Chinyere McElwey 06/16/2024 1 [facility] [id number] Annetta E McElwey [id number] Annetta Ankeny McElwey Notes Date Note Type Note Provider [...] systems as below. This is dictated using [employer] voice dictation software. Maryuri Torres PA-C [address] [place] [address], [phone], [facility], [place] 03/31/2018 13:40:03 9 text/html DiabetesReported bypatient.Labs:last Hemoglobin [...] stones. BMD: Done at [facility]. 2018. ROS: No fevers or chills.Had sinus fungal infection in 2018.Can be SOB if rushing and gets anxiousNo muscle aches or pains. No cramping.No dizziness with standing in AM. No bruises or rashes. ` Jamaal Ham MD [address] [place] [address], [phone], [facility], [place] 03/30/2019 15:28:25 0 text/html DiabetesReported bypatient.Labs:last Hemoglobin [...] Hypoglycemia Symptomsfrequency of hypoglycemic episodesinfrequently (metformin only.); [place] funny (Shivering in middle of night- trembling) [...] was notified that the provider [place] [facility] [place] During the visit the [...] kidney stones.BMD: Done at [facility]. 2018. ROS: No fevers or chills.Had sinus fungal infection in 2018.Can cough or SOB (besides described elsewhere with activity or stress)No muscle pains. No cramping. Gets leg cramps- has tonic water nightly. No dizziness with standing in AM. No bruises, itching or rashes. Jamaal Ham MD [address] [place] [address], [phone], [facility], [place] 04/01/2020 09:48:45 1 text/html DiabetesReported bypatient.Labs:last Hemoglobin [...] artery disease s/p pacemaker; no retinopathy ([facility])); no numbness of feet;kidney disease chronic renal [...] tracings periodically.Will be seeing new CARDS in [place].But also has had nuclear ETT at [place]. PCP- Valarie Abad.CARDIAC: Switching to [place] (Subramarian)- [...] kidney stones.BMD: Done at [facility]. 2018. ROS:No fevers or chills.Had sinus fungal infection in 2018.Can cough or SOB (besides described elsewhere with activity or stress)No muscle pains. No cramping. Gets leg cramps- has tonic water nightly. No dizziness with standing in AM.No bruises, itching or rashes. Jamaal Ham MD [address] [place] [address], [phone], [facility], [place] 04/05/2021 22:06:34 5 text/html DiabetesReported bypatient.Labs:last Hemoglobin A1C: 6s at goal (6.9 ([place] in 2023); was 6.1 (01/31); was 6.2 [...] Symptomscoronary artery disease s/p pacemaker; no retinopathy (([facility] )); no numbness of feet;kidney disease chronic renal insufficiency Hypoglycemia Symptomsfrequency of hypoglycemic episodesinfrequently (metformin only.); Occ sx of shaking but if checks, hasn't seen low value. Nothing below 90-100.Notes: 01/31:159-247 (were 164)-36-: 163/289/; on prava.discussed impact of exercise. BG fastin-146 (11/21); was 116-145 (04/01) Pt. feels 140s if [...] tracings periodically.Will be seeing new CARDS in [place].But also has had nuclear ETT at [place]. Last seen in 2020.PCP- Valarie Abad.CARDIAC: Switching to [place] (Subramarian)- for pacer.RENAL is Arsen Villegas ([place])ENT: [place] T2DM, hypothyroidism and hypercalcemia (previously thought secondary to FHH). Follow-Up: disorder of thyroid glandFollow-Up: Type 2 diabetes mellitus without complicationFollow-Up: hypercalcemiaFollow-Up: disorder of vitamin DHypothyroidismLV 1LAst labs 08/03 added to chart last A1C- 6.9 [facility]PT states has a adenoma on parathyroidChecks blood sugars daily FBS will write down Past MED HX:T2DM with CKD (GFR <45)HYPOTHYROIDHYPERCALCE FREDRICK (chronic- [facility])Pacemaker- replaced 2023 Other hx: migraines (none recently);Back [...] Magalie (46)- doing OK. 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 Lynne ([employer] ) and Amara- ([employer])daughter (50)- Herman at [employer]. 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 Calciums in 11s. PTH in triple digits.On cinacalcet but hasn't impacted PTH. Not affecting Ca much. Makes her nauseated.Told it depletes Mg.Interested in surgery as option. seeing him next month.RENAL is Helenea([place]) Hx of hypercalcemia thought to be due to FHH. 2018: urine C was LOW= 3.9 mg/dL (31 mg/24 hrs)No hx of kidney stones.BMD: Done at [facility]. 2018. Ca= 10.7 (05/05); was 10.1 (04/05); [...] PREVIOUS 24 HR URINE (2018)Creatinine Clearance................ ........................5 8.79584910............... ......................... >80Phosphorus Clearance................ .....................11.5 4418513.................. ......................5 to 15Tubular Reabsorption of Phosphorus........80.1711 3095..................... ...................82-97% Calcium/Creatinine Clearance................ .........0.290889291..... ......................... ........<0.01 C/W [facility] Ca/Creat clearance and TRP are c/w [facility]. KIDNEY STONES: NONEFRACTURES: NONEBONE PAIN: Sometimes- everything [...] in abdomen.M/S sx: arthritic. Jamaal Ham MD [address] [place] [address], [phone], [facility], [place] 06/28/2024 14:21:00 OBGyn Episode No OBEpisode recorded.
--- OUTSIDE RECORDS SUMMARY | 2024-09-03 15:59 | XMS_ITS | Clinical Summary ---
Author Organization [facility] Facility Address [address] [place] [address], [place] [address] Care Team Providers Care Insole Tack Puller Hand Name Role Phone Carmita Dietz PLASTIC WELDING MACHINE OPERATOR-C Primary Care Provider + Allergies No known [...] 1 (one) time each day Active Biotin 11110 MCG tablet dispersible Take by mouth Active [...] patient's age to complete this topic Insurance [facility] Care Teams Insole Tack Puller Hand Relationship Specialty Start Date End Date Carmita Dietz NP-C [address], [address] [place] [address] PCP - General Nurse Practitioner 07/18/22
== END 2024-09-03 14:23 | disposition home or self-care (01) ==
LOC: HO.HPS 13:36
PROVIDERS: PCP Nurse Practitioner Primary Care; Visit Provider Internal Medicine Pulmonary Disease
DX: R91.1 Solitary pulmonary nodule (principal); G47.33 Obstructive sleep apnea (adult) (pediatric)
CPT/HCPCS: 99214

== ENCOUNTER → 2024-09-03 13:36 | Outpatient (BNVA) | payer MEDICARE, SELFPAY | PROVIDERS: PCP Nurse Practitioner Primary Care; Visit Provider Internal Medicine Pulmonary Disease | DX: R91.1 Solitary pulmonary nodule (principal); G47.33 Obstructive sleep apnea (adult) (pediatric) | CPT/HCPCS: 99212 ==

== ENCOUNTER 2024-09-14 07:33 | Outpatient (REF) | payer MEDICARE, SELFPAY ==
--- OUTSIDE RECORDS SUMMARY | 2024-09-14 07:36 | XMS_ITS ---
Author Organization [facility] Address [address] [place] [address] Care Team Providers Care Rotor Assembler Name Role Phone Archie Finch MD Primary Care Provider Cash Casanova [phone] REASON FOR VISIT out of omeprazole requesting r/f Encounters Encounter Location Date Provider Diagnosis [facility] [address] [place] [address] 03/26/2024 Cash Mercado Plan Of Treatment No Information Progress Notes * LULI DE LUNA EDOB:1945 (78 yo F)Acc No.[id number]:03/26/2024 Patient:?LULI DE LUNA :1945???Age:78 Y???Sex:Female Address:[address] [place] [address], [place] [address] * true * Date:? Generated for Printi dejon/Opal/eTransmitting on:?09/14/2024 07:36 AM EDT
--- OUTSIDE RECORDS SUMMARY | 2024-09-14 07:36 | XMS_ITS | Clinical Summary ---
Author Organization [facility] Address [address] [place] [address], [place] [address] Care Team Providers Care Associate Veterinarian Name Role Phone Carmita Dietz TRAVEL CONSULTANT-C Primary Care Provider + Allergies No known [...] 1 (one) time each day Active Biotin 29615 MCG tablet dispersible Take by mouth Active [...] patient's age to complete this topic Insurance [facility] Care Teams Associate Veterinarian Relationship Specialty Start Date End Date Carmita Dietz NP-C [address], [address] [place] [address] PCP - General Nurse Practitioner 07/18/22
--- OUTSIDE RECORDS SUMMARY | 2024-09-14 07:36 | XMS_ITS ---
Author Organization [facility] Address [address] [place] [address] Care Team Providers Care Tobacco Stripper Hand Name Role Phone Archie Finch MD Primary Care Provider Cash Casanova [phone] Allergies Allergen (clinical drug ingredient) Drug/Non Drug [...] Orally every 6 hrs Active Biotin Maximum 08403 MCG as directed Orally Active Cinacalcet HCl [...] W/U Status Risk Notes Problem Erosive esophagitis (75706523) Erosive esophagitis (K22.10) Active confirmed Problem Hernia, hiatal (K44.9) Active confirmed Vital Signs Blood pressure systolic 130 mm Hg 03/03/20 24 Blood pressure diastolic 74 mm Hg 024 Height 62.50 in 03/03/2024 Weight 197 lbs 03/03/2024 BMI 35.45 kg/m2 03/03/2024 Encounters Encounter Location Date Provider Diagnosis [facility] [address] [place] [address] 03/03/2024 Cash Mercado Erosive esophagitis K22.10 and [...] LULI DE LUNA EDOB:1945 (78 yo F)Acc No.[id number]:03/03/2024 Progress Notes Patient:?LULI DE LUNA E Provider:?Cash Mercado MD :1945???Age:78 Y???Sex:Female D ate:03/03/2024 Address:[address] [place] [address], [facility] Pcp:Archie Finch MD Subjective: * Chief Complaints: [...] Screen?Points: 0, Interpretation: Negative.?Miscellaneous:?Marital status: . 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 ???Nonsmoker; no sig [...] as needed Orally every 6 hrsBiotin Maximum 10049 MCG Tablet Disintegrating as directed Orally Spironolactone [...] needed Orally every 6 hrsTaking Biotin Maximum 92326 MCG Tablet Disintegrating as directed Orally Taking [...] every morning.?? * Procedure Codes:?1036F TOBAC CO NON-FVWLB2324 BP SCR NOT PRFRM REC REASON NOS [...] MD Date:? 024 Generated for Aishai dejon/Opal/eTransmitting on:?09/14/2024 07:36 AM EDT History and Physical Notes * [...]
--- OUTSIDE RECORDS SUMMARY | 2024-09-14 07:36 | XMS_ITS ---
Author Organization [facility] Address [address] [place] [address] Care Team Providers Care Editorial Specialist Name Role Phone Archie Finch MD Primary Care Provider Cash Casanova [phone] Encounters Encounter Location Date Provider Diagnosis [facility] [address] [place] [address] 03/15/2024 Cash Mercado Plan Of Treatment No Information Progress Notes * LULI DE LUNA EDOB:1945 (78 yo F)Acc No.[id number]:03/15/2024 Patient:?LULI DE LUNA :1945???Age:78 Y???Sex:Female Address:[address] [place] [address] * true * Date:? Generated for Nehemiah ashfodr/Opal/eTransmitting on:?09/14/2024 07:36 AM EDT
--- OUTSIDE RECORDS SUMMARY | 2024-09-14 07:36 | XMS_ITS | Encounter Summary ---
Author Organization [facility] Address [address] [facility] [address] [place] [address] Phone Care Team Providers Care Supervisor Chlorine Liquefaction Name Role Phone Carmita Dietz FLATWORK FINISHER HAND-C Primary Care Provider + Reason for Visit * Reason Comments Med Refill Encounter Details Date Type Department Care Team (Late st Contact Info) Description 02/27/2023 Refill [facility] [address] [place] [phone] Arsen Villegas MD Social History Tobacco Use [...] on filedocumented in this encounter Care Teams Supervisor Chlorine Liquefaction Relationship Specialty Start Date End Date Carmita Dietz NP-C [address], [address] [place] [address] PCP - General Nurse Practitioner 07/18/22 documented as of this encounter
--- OUTSIDE RECORDS SUMMARY | 2024-09-14 07:36 | XMS_ITS | Clinical Summary ---
Author Organization [facility] Address [address] [place] [address] Care Team Providers Care Wellness Trainer Name Role Phone Unavailable Primary Care Provider [...]
--- OUTSIDE RECORDS SUMMARY | 2024-09-14 07:37 | XMS_ITS | Patient Health Record ---
Author Organization [facility] Address [address] [place] [address] Care Team Providers Care Cafeteria Cook Name Role Phone Archie Finch MD Primary Care Provider Cash Casanova Unavailable [phone] Allergies Allergen (clinical drug ingredient) Drug/Non Drug Allergy documented on EMR Reaction Allergy Type Onset Date Status angiotensin-converting enzyme inhibitor (FN) EMELIA Inhibitors Unknown Drug Allergy Acti ve Results Component Value Reference Range Notes Glucose, Whole Blood Reviewed date:10/03/2023 09:15:19 AM Interpretation: Performing Lab:[facility], [address] [place] [phone] Notes/Report: Glucose, Whole Blood 128 60-115 mg/dL METER # : [id number] Pathology Reviewed date:10/19/2023 09:51:24 PM Interpretation: Performing Lab:[facility], [address] [place] [address] Notes/Report: ---- Name: Ellis Fishman Age/Sex: 77/F : 1945 Unit#: [id number] Attend Dr: Cash Mercado Re10/03/23 Status : DEP [facility] Location: HO.SSS Disch: ---- SPEC : [id number] RECD : 10/03/23 STATUS: GEOVANNA FERNANDEZ NUM: [id number] JOSE A: 10/03/[address] [facility] [address]: Cash Mercado ENTERED: 10/03/23-01 29 SP TYPE: Surgical OTHR DR: Carmita Dietz PUBLICITY MANAGER ORDERED: HE Stain/3, Gross Micro L4, IHC, [...] stains on A1. Copies To: Carmita Dietz PUBLICITY MANAGER [address] [facility] [address] [place] [address] Cash Mercado [address] [place] [address] [id number] [place] [address] ---- Signed (signature on file) Mellissa Lorena 10/08/23 1411 ---- END OF REPORT MAMMOGRAM [...] Orally every 6 hrs Active Biotin Maximum 01506 MCG as directed Orally Active Rosuvastatin Calcium [...] W/U Status Risk Notes Problem Epigastric pain (81339651) Epigastric pain (R10.13) Active confirmed Problem 277002799 Encounter for screening for malignant neoplasm of colon (Z12.11) Active confirmed Problem 041982926 History of adenomatous polyp of colon (Z86.010) Active confirmed Problem Ulcer of esophagus (63589827) Ulcer of esophagus without bleeding (K22.10) Active confirmed Problem Diverticular disease of colon (133281134) Diverticulosis of large intestine without perforation or abscess without bleeding (K57.30) Active confirmed Problem 545211711 Gastroesophageal reflux disease without esophagitis (K21.9) Active confirmed Problem Hiatal hernia (06947558) Hiatal hernia (K44.9) Active confirmed Problem Chronic gastritis (0950854) Gastritis, chronic (K29.50) Active confirmed Problem Computed tomography result abnormal (044854197) Abnormal CT scan, colon (R93.3) Active confirmed Problem Erosive esophagitis (82176695) Erosive esophagitis (K22.10) Active confirmed Problem 671787515 Irregular bowel habits (R19.8) Active confirmed Problem 05614411 Incontinence of feces, unspecified fecal incontinence type (R15.9) Active confirmed Problem Diaphragmatic hernia (54196905) Hernia, hiatal (K44.9) Active confirmed Problem Gastroesophageal reflux disease (803927799) Chronic GERD (K21.9) Active confirmed Vital Signs Temperature 96.9 degrees Fahrenheit 09/18/2023 Blood pressure diastolic 74 mm Hg 03/03/2024 Height 62.50 in 03/03/2024 Blood pressure systolic 130 mm Hg 03/03/2024 Weight 197 lbs 03/03/2024 BMI 35.45 kg/m2 03/03/2024 Encounters Encounter Location Date Provider Diagnosis [facility] Outpatient [address] [place] [phone] 10/03/[address] scan, co karena R93.3 ; Diverticulosis of large intestine without perforation or abscess without bleeding K57.30 ; Other hemorrhoids K64.8 ; Ulcer of esophagus without bleeding K22.10 ; Hiatal hernia K44.9 ; Gastritis, chronic K29.50 ; Hematemesis K92.0 and Abdominal pain R10.9 [facility] [address] [place] [address] 09/18/[address] scan, co karena R93.3 ; Chronic GERD K21.9 ; Epigastric pain R10.13 and Hiatal hernia K44.9 [facility] [address] [place] [address], [place] [address] 03/03/2024 Cash Mercado Erosive esophagitis K22.10 and Hernia, hiatal K44.9 [facility] [address] [place] [address] 09/22/2023 Cash Mercado [facility] [address] [place] [address] 10/03/2023 Cash Mercado [facility] [address] [place] [address] 03/15/2024 Cash Mercado [facility] [address] [place] [address] 03/26/2024 Cash Mercado Assessments Encounter Date Diagnosis [...] the procedures. She is going away to [place] next week and the procedures will be [...] the procedures. She is going away to [place] next week and the procedures will be [...] the procedures. She is going away to [place] next week and the procedures will be [...] the procedures. She is going away to [place] next week and the procedures will be [...] Insured Coverage Start Date Coverage End Date [facility] [address] [place] [phone] [id number] LULI FISHMAN Self - patient is the insured Medical (General) History Medical History History ICD Code NIDDM Hyperlipidemia Hypertension Pacemaker Arthritis Denies VA,CVA,Lung disease,renal disease Urinary incontinence-mild Hypothyroidism Tubular adenomas [...]
--- OUTSIDE RECORDS SUMMARY | 2024-09-14 07:37 | XMS_ITS | Data Portability ---
Author Organization [place] [facility] Address [address] [address] Care Team Providers Care Marketing Business Analyst Name Role Phone JACOBO ABAD Primary Care [...] mupirocin 2 % topical ointment 2024 025 [id number], [address] [facility], [place], [address], 5 11:51:39 Patient TargetsNo targets recorded. Patient InstructionsNo instructions recorded. Reason for Referral None Reported. Problems Name Problem SNOMED Code Status Onset Date Resolution Date Notes Provider Name and Address Organization Details Recorded Time Chronic sphenoid al sinusiti s 17645193 Completed 201712/13/2023 Chronic sphenoid al sinusiti s; Note: Date Diagnose d: 04/28/20 8:26 PM (J32.3) Chroni c sphenoid al sinusiti s; Note: Date Diagnose d: 8 11:01 AM (J32.3) ; Start Date : 02/11/20 Not Available [facility] 4 03:07:58 Follow-u p visit Active 2017 Encounte r for follow-u p examinat ion after complete d treatmen t for conditio ns other than malignan t neoplasm ; Note: Date Diagnose d: 04/21/20 2:55 PM (Z09) Not Available [facility] 4 03:08:00 Ulcerati ve rhinitis 70314691 Active 2019 Nasal mucositi s (ulcerat adriana); Note: Date Diagnose d: 0 1:36 PM (J34.81) Not Available [facility] 4 03:08:00 Migraine 79338642 Active 2017 Other migraine , not intracta ble, without status migraino kervin; Note: Date Diagnose d: 8 10:47 AM (G43.809 ) Not Available [facility] 4 03:07:58 Headache 00160228 Active 2019 Facial pain NOS; Note: Date Diagnose d: 02/25/20 1:22 PM (R51) Facial pain NOS; Note: Date Diagnose d: 8 10:47 AM (R51) ; Start Date : 02/11/20 Not Available [facility] 4 03:07:59 Angioede [place] 14475548 Active 2023 Angioneu rotic edema, initial encounte r; Note: Date Diagnose d: 4 9:06 AM (T78.3XX A) Not Available [facility] 4 03:08:00 Gastroes ophageal reflux disease 410763270 Active 2024 SANDIE WILLIAM MD [address] [facility],[address] [facility], [place], [address] , [facility] 5 08:18:24 Obstruct adriana sleep apnea syndrome 27625482 Active 2024 SANDIE WILLIAM MD [address] [facility],[place] [address], [place], [address] , [facility] 5 08:18:33 Problem Notes None recorded. Procedures Surgical History Date Name Laterality Status Provider Name and Address Organization Details Recorded Time 06/12/19 Fiberoptic Laryngoscopy (Comprehensive) completed SANDIE WILLIAM MD [address] [facility],[place] [address], [place], [address], [facility] 06/13/2024 08:17:40 Imaging Results None recorded. [...] layed release 06/12 completed Medicati on ID: [id number] D uration Value: 90 Brand Name: pantopra zole Sen d Method: E-Prescr ibed Sub s Allowed: subs OK Speci al Instruct ion: TAKE 1 TABLET BY ORAL ROUTE DAILY Me dication GenericN radha: pantopra zole Not Available Not Available Not Available pravastat in 20 mg tablet 2017 active Medicati on ID: [id number] D uration Value: 90 Brand Name: pravasta [...] by mouth 06/12 completed Medicati on ID: [id number] D uration Value: 7 Prescri bed By Name: Sandie weiss MD Brand Name: cefuroxi me axetil S end Method: E-Prescr ibed Sub s Allowed: subs OK Medic ationGen ericName : cefuroxi me axetil Not Available Not Available Not Available amoxicill in 875 mg-potass ium clavulana te 125 mg tablet 05/09 completed Medicati on ID: [id number] D uration Value: 10 Reason: () Brand [...] Available Advil 04/21 completed Medicati on ID: [id number] R sergio: () Brand Name: advil Se nd Method: E-Prescr ibed Sub s Allowed: subs OK Medic ationGen ericName : advil Not Available Not Available Not Available Tylenol 06/12 completed Medicati on ID: [id number] B rand Name: tylenol Send Method: E-Prescr ibed Sub s Allowed: subs OK Medic ationGen ericName : tylenol Not Available Not Available Not Available amlodipin e 10 mg-benaze pril 40 mg capsule 06/12 completed Medicati on ID: [id number] D uration Value: 90 Brand Name: amlodipi [...] Updated DateTime 06/12/2024 157.48 cm 36.6 kg/m2 16501.47 g Georgette Lynn [place] - [facility] 06/12/2024 11:32:13 Social History None recorded. [...] SNOMED-CT Code Diagnosis ICD10 Code Diagnosis Note [id number] SANDIE WILLIAM MD [facility] [address] [place] [address] 06/12/2024 11:19:33 06/12/2024 11:55:40 Ulcerative rhinitis 72324422 J34.81 Gastroesop hageal reflux disease 780048106 K21.00 Obstructiv e sleep apnea syndrome 48604915 G47.33 Health Concerns Section Related Observation LastModified by Organization Detai ls LastModified Time None Recorded Concern Status LastModified by Organization Details LastModified Time None Recorded Advance Directives Directive None Recorded Payers Encounter Date Sequence Insurance Name Policy Number Policy Lara Covered Member ID Lara Member ID Guarantor Name 06/12/2024 1 [facility] (MEDICARE REPLACEMENT/ ADVANTAGE - PPO) [id number] 1 Annetta Strickland [id number] Annetta Strickland Notes Date Note Type Note Provider Name and Address Organization Details Recorded Time 06/12/2024 text/html 78 yo F presents for evaluation of her throatangioedema last year seen at [facility] [place] new FAINA CPAP, right side of nose gets crusting, uses AYR saline and gel esophagitis and gastritis in September, on omeprazole gets scratchy, this week is a little better SANDIE WILLIAM MD [address] [place] [address], [phone], [place] - [facility] 06/13/2024 08:20:50 OBGyn Episode No OBEpisode recorded.
--- OUTSIDE RECORDS SUMMARY | 2024-09-14 07:37 | XMS_ITS | Data Portability ---
Author Organization 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 Renal insufficiency with creat around 1.3-1.6. (eGFR= 30s) Hypercalcemia with evidence of [facility] 24 hour urine calcium low at 41. PTH= 91. Hypothyroid: tsh= 0.81; lotion 3x per week. SUMMARY OF TESTING FOR HYPERCALCEMIA: 2018: 24hr urine vol = 1750 CALCULATIONS FROM PREVIOUS 24 HR URINE (2018) Creatinine Clearance....... ................ ................ .[id number].... ................ ................ ....>80 Phosphorus Clearance....... ................ ..............11 .[id number]....... ................ ................ .5 to 15 Tubular Reabsorption of Phosphorus...... ..80.54624199... ................ ................ .....82-97% Calcium/Creatini ne Clearance....... ................ ..[id number]... ................ ................ ...<0.01 C/W [facility] Low Ca/Creat clearance and TRP are c/w [facility]. REPEAT 24 hr urine (07/07): VOL= 980cc Calcium= 0.065 (07/07) Phos= 0.4375 creat= 0.98 (07/07) Creatinine Clearance....... ................ ................ .52.90995044 >80 Phosphorus Clearance....... ................ ................ [id number] 5 to 15 Tubular Reabsorption of Phosphorus...... ..81.76545194 82-97% Calcium/Creatini ne Clearance....... ................ .0.733593218 <0.01 C/W [facility] LAB SUMMARY: Ca= 10.7 (09/01/24 per pt); was 10.5 (07/07); was 10.7 (05/05); was 10.1 (04/05); was 11.1 (03/05); was 11.2 (03/05); was 11.4 (01/03); was 11.6 (01/03); Values were normal in 2023: 10.1 (09/03); was 10.0 (08/03); was 9.8 (08/03) was 10.1 (08/03); was 10.6 (08/03); was 11.0 (07/06) Older values: 11.1 (01/31); was 10.7 (08/31); was 11.2 (01/30); was 10.9 (06/01 and 03/31); was 10.8 (08/29); was 11.1 (07/01); Highest was 11.2 (2016) Albumin consistently normal. D= 30 (07/07) was 30 (01/03); previously was 34 (01/31); was 37 (01/30) creat= 1.3 (08/04) was 1.1 -1.4 (2023); high of 1.8 (08/03) and low of 1.04 (10/03); PAST: 1.5 (01/31); was 1.4 (08/31); was 1.5 (01/30); was 1.2 (06/01); was 1.5 (03/31); was 1.3 (08/29); was 1.6 (07/01) PTH= 201.7 (09/01/24 per pt); was 196.3 (07/30/24 per pt); was 115 (07/07) was 200 (06/06); was 217 (05/05); was 225 (04/05); was 227 (04/05); was 50 (03/05); was 187 (03/05); was 202 (01/03); Enhanced Provider time spent performing enhanced activities which may include, but are not limited to: reviewing tests, obtaining and/or reviewing patient history; ordering medications, test or procedures; EMR documentation; communication with patient, family, caregiver(s), VNA; pre-visit prep time communication with specialists, ER staff. Time spent: 44 (minutes) 09/04 mary kate Not available 09/09/2024 19:39:11 Plan of Treatment Reminders Order Date Submit Date Provider Last Modified By Organization Details Last Modified Time Details Appointments Follow Up, 2024 09:40A Renee Ham MD Not available Not available Not available Lab magnesium , serum or plasma 2024 025 [facility] [address], [place], [address], 09/10/2024 10:13:21 renal function panel, serum 2024 025 [facility], [address], [place], [address], 07/10/2024 12:02:11 vitamin D, 25-hydrox y, total, serum 2024 025 [facility], [address], [place], [address], 07/10/2024 12:18:59 PTH (parathyr oid hormone), intact + calcium, serum or plasma 2024 025 [facility], [address], [place], [address], 06/16/2024 13:10:32 calcium, 24-hour urine 2024 025 [facility], [address], [place], [address], 07/10/2024 13:00:44 creatinin e, 24-hour urine 2024 025 [facility], [address], [place], [address], 07/10/2024 13:00:45 phosphoru s, 24-hour urine 2024 025 [facility], [address], [place], [address], 07/10/2024 13:00:48 volume, total, 24-hour urine 2024 025 [facility], [address], [place], [address], 06/16/2024 13:10:32 CASR gene full mutation analysis, blood or tissue 2024 025 [facility], [address], [place], [address], 06/30/2024 13:10:31 vitamin D, 25-hydrox y, total, serum 2019 021 [facility], [address], [place], [address], 02/02/2021 11:16:20 HbA1c (hemoglob in A1c), blood 2019 020 [facility], [address], [place], [address], 09/02/2020 13:55:20 CMP, serum or plasma 2019 021 [facility], [address], [place], [address], 09/02/2020 11:43:26 CMP, serum or plasma 2020 021 [facility], [address], [place], [address], 02/02/2021 11:26:12 HbA1c (hemoglob in A1c), blood 2020 021 [facility], [address], [place], [address], 02/02/2021 10:57:24 TSH, serum or plasma 2019 021 [facility], [address], [place], [address], 02/02/2021 11:26:16 T4, free, serum 2019 021 [facility], [address], [place], [address], 02/02/2021 11:26:14 HbA1c (hemoglob in A1c), blood 2018 019 [facility], [address], [place], [address], 06/12/2019 15:32:59 CMP, serum or plasma 2018 019 [facility], [address], [place], [address], 06/12/2019 16:09:37 TSH, serum or plasma 2018 [facility], [address], [place], [address], 06/12/2019 16:09:40 T4, free, serum 2018 [facility], [address], [place], [address], 06/12/2019 16:09:39 Referral None recorded. Procedures None recorded. Surgeries None recorded. Imaging None recorded. Medication Orders levothyro xine 75 mcg tablet 2020 021 [id number], [address] [place], [address], 06/16/2024 11:33:34 Patient TargetsNo targets recorded. Patient Instructions Encounter Date Encounter Id Patient Instructions Last Modified By Organization Details Last Modified Time 03/27/2019 [id number] - Get labs done beginning in May [...] feet [email or web address] Not available 03/27/2019 11:29:50 04/01/2020 [id number] - Get labs done beginning in May [...] PCP. [email or web address] Not available 04/01/2020 09:43:27 04/05/2021 [id number] - Continue taking thyroid hormone every day [...] [email or web address] Not availabl e 04/05/2021 22:02:24 06/16/2024 [id number] - Continue taking thyroid hormone every day [...] (mid-July 2024) [email or web address] Not available 06/16/2024 12:53:12 09/08/2024 [id number] - Continue taking thyroid hormone every day [...] be as physically active as you can [email or web address] Not available 09/09/2024 19:32:53 Reason for Referral None Reported. Results Created Date Observation Date Name Description Value Unit Range Abnormal Flag Note LastModifiedBy Organization Detail LastModifiedTime 03/23/2003/23/2019 vitam in D, 25-hy droxy , total , serum 25OH vitamin D 42.2 NG/mL (20-50 ) Serum 25OHD : 20 to 50 ng/mL : suffi cient in vitam in D. Refer ence: [facility] Data Brief : No.59 July: Vitam in D Statu s: Unite d State s: 2000- 2005 Not Available [facility] (Centralized Electronic Ordering - All Locations) Patient Can Go To The Location Of Their Choice, [id number] 03/23/2019 18:54:58 03/23/2003/23/2019 renal funct ion panel , serum glucose 84 mg/dL (70-99 ) Not Available [facility] (Centralized Electronic Ordering - All Locations) Patient Can Go To The Location Of Their Choice, [id number] 03/23/2019 19:05:49 03/23/2003/23/2019 renal funct ion panel , serum BUN 24 mg/dL (8-23) high Not Available [facility] (Centralized Electronic Ordering - All Locations) Patient Can Go To The Location Of Their Choice, [id number] 03/23/2019 19:05:49 03/23/20 19 03/23/2019 renal funct ion panel , serum creatinine 1.5 mg/dL (0.5-1 .0) high Not Available [facility] (Centralized Electronic Ordering - All Locations) Patient Can Go To The Location Of Their Choice, [id number] 03/23/2019 19:05:49 03/23/2003/23/2019 renal funct ion panel , serum sodium 141 mmol/ L (133-1 45) Not Available [facility] (Centralized Electronic Ordering - All Locations) Patient Can Go To The Location Of Their Choice, [id number] 03/23/2019 19:05:49 03/23/2003/23/2019 renal funct ion panel , serum potassium 4.9 mmol/ L (3.6-5 .2) Not Available [facility] (Centralized Electronic Ordering - All Locations) Patient Can Go To The Location Of Their Choice, [id number] 03/23/2019 19:05:49 03/23/2003/23/2019 renal funct ion panel , serum chloride 104 mmol/ L (98-10 7) Not Available [facility] (Centralized Electronic Ordering - All Locations) Patient Can Go To The Location Of Their Choice, [id number] 03/23/2019 19:05:49 03/23/2003/23/2019 renal funct ion panel , serum bicarbonate 25 mmol/ L (22-29 ) Not Available [facility] (Centralized Electronic Ordering - All Locations) Patient Can Go To The Location Of Their Choice, [id number] 03/23/2019 19:05:49 03/23/2003/23/2019 renal funct ion panel , serum anion gap 12 (4-17) Not Available [facility] (Centralized Electronic Ordering - All Locations) Patient Can Go To The Location Of Their Choice, [id number] 03/23/2019 19:05:49 03/23/2003/23/2019 renal funct ion panel , serum albumin 4.2 gm/dL (3.4-4 .8) Not Available [facility] (Centralized Electronic Ordering - All Locations) Patient Can Go To The Location Of Their Choice, [id number] 03/23/2019 19:05:49 03/23/2003/23/2019 renal funct ion panel , serum calcium 10.9 mg/dL (8.6-1 0.5) high Not Available [facility] (Centralized Electronic Ordering - All Locations) Patient Can Go To The Location Of Their Choice, [id number] 03/23/2019 19:05:49 03/23/2003/23/2019 renal funct ion panel , serum phosphorus 3.2 mg/dL (2.5-4 .5) Not Available [facility] (Centralized Electronic Ordering - All Locations) Patient Can Go To The Location Of Their Choice, [id number] 03/23/2019 19:05:49 03/23/2003/23/2019 renal funct ion panel [...] Go To The Location Of Their Choice, [id number] 03/23/2019 19:05:49 03/23/2003/23/2019 renal funct ion panel [...] Go To The Location Of Their Choice, [id number] 03/23/2019 19:05:49 03/23/2003/27/2019 TSH, serum or plasm a TSH 1.05 mIU/m L (0.40- 4.00) Not Available [facility] (Centralized Electronic Ordering - All Locations) Patient Can Go To The Location Of Their Choice, [id number] 03/27/2019 20:19:23 06/12/1901 0606/12/2019 HbA1c (hemo globi n A1c), blood hemoglobin A1C 6.3 % 4.3-5. 8 high Not Available [facility] (Out[facility]) [address] [place], [address], 06/12/2019 15:32:59 06/12/19 20 06/12/2019 lipid panel [...] philly arnaud, sex and age. Not Available [facility] (Outpatient) [address] [place], [address], 06/12/2019 15:58:07 06/12/19 20 06/12/2019 lipid panel , blood cholesterol 176 mg/dL 0-240 Not Available [facility] (Outpatient) [address] [place], [address], 06/12/2019 15:58:07 06/12/19 20 06/12/2019 lipid panel , blood triglyceride s 199 mg/dL 30-160 high Not Available [facility] (Outpatient) [address] [place], [address], 06/12/2019 15:58:07 06/12/19 20 06/12/2019 lipid panel , blood LDL 98 mg/dL 50-129 LDL level s in terms of risk for coron amol heart disea se: <100 mg/dL : Optim al 100-1 29 mg/dL : Near or above optim al 130-1 59 mg/dL : Alyse jacobo high 160-1 89 mg/dL : High >190 mg/dL : Very High Not Available [facility] (Outpatient) [address] [place], [address], 06/12/2019 15:58:07 06/12/19 20 06/12/2019 lipid panel , blood cardiac risk ratio 4.6 3.3-4. 4 high Not Available [facility] (Outpatient) [address] [place], [address], 06/12/2019 15:58:07 06/12/19 20 06/12/2019 micro album in/cr eatin ine, mass ratio , urine urine microalbumin <1.2 mg/dL 0-2.3 Not Available [facility] (Outpatient) [address] [place], [address], 06/12/2019 16:00:19 06/12/19 20 06/12/2019 micro album in/cr eatin ine, mass ratio , urine urine creatinine 58 mg/dL Not Available [facility] (Outpatient) [address] [place], [address], 06/12/2019 16:00:19 06/12/19 20 06/12/2019 micro album in/cr eatin ine, mass ratio , urine microalb/cre ratio NOT CALCUL ATED mg/g_ cre 0-20 due to Micro album in <1.2 Not Available [facility] (Outpatient) [address] [place], [address], 06/12/2019 16:00:19 06/12/19 20 06/12/2019 CMP, serum or plasm a sodium 139 mmol/ L 133-14 6 Not Available [facility] (Outpatient) [address] [place], [address], 06/12/2019 16:09:37 06/12/19 20 06/12/2019 CMP, serum or plasm a potassium 4.8 mmol/ L 3.3-5. 1 Not Available [facility] (Outpatient) [address] [place], [address], 06/12/2019 16:09:37 06/12/19 20 06/12/2019 CMP, serum or plasm a chloride 103 mmol/ L 96-108 Not Available [facility] (Outpatient) [address] [place], [address], 06/12/2019 16:09:37 06/12/19 20 06/12/2019 CMP, serum or plasm a CO2 23 mmol/ L 21-35 Not Available [facility] (Outpatient) [address] [place], [address], 06/12/2019 16:09:37 06/12/19 20 06/12/2019 CMP, serum or plasm a BUN 21 mg/dL 6-19 high Not Available [facility] (Outpatient) [address] [place], [address], 06/12/2019 16:09:37 06/12/19 20 06/12/2019 CMP, serum or plasm a creatinine 1.20 mg/dL 0.5-1. 5 Not Available [facility] (Outpatient) [address] [place], [address], 06/12/2019 16:09:37 06/12/19 20 06/12/2019 CMP, serum or plasm a glucose 116 mg/dL 70-99 high Not Available [facility] (Outpatient) [address] [place], [address], 06/12/2019 16:09:37 06/12/19 20 06/12/2019 CMP, serum or plasm a albumin 4.4 g/dL 3.9-4. 8 Not Available [facility] (Outpatient) [address] [place], [address], 06/12/2019 16:09:37 06/12/19 20 06/12/2019 CMP, serum or plasm a total protein 7.7 g/dL 6.5-8. 0 Not Available [facility] (Outpatient) [address] [place], [address], 06/12/2019 16:09:37 06/12/19 20 06/12/2019 CMP, serum or plasm a calcium 10.9 mg/dL 8.4-10 .3 high Not Available [facility] (Out[facility]) [address] [place] [address], [address], 06/12/2019 16:09:37 06/12/19 20 06/12/2019 CMP, serum or plasm a alkaline phosphatase 61 U/L 39-117 Not Available [facility] (Outpatient) [address] [place] [address], [address], 06/12/2019 16:09:37 06/12/19 20 06/12/2019 CMP, serum or plasm a total bilirubin 0.2 mg/dL 0.0-1. 2 Not Available [facility] (Out[facility]) [address] [place] [address], [address], 06/12/2019 16:09:37 06/12/19 20 06/12/2019 CMP, serum or plasm a AST 22 U/L 0-37 Not Available [facility] (Outpatient) [address] [place], [address], 06/12/2019 16:09:37 06/12/19 20 06/12/2019 CMP, serum or plasm a ALT 9 U/L 0-40 Not Available [facility] (Outpatient) [address] [place] [address], [address], 06/12/2019 16:09:37 06/12/19 20 06/12/2019 CMP, serum or plasm a globulin 3.3 g/dL 1-4.8 Not Available [facility] (Out[facility]) [address] [place] [address], [address], 06/12/2019 16:09:37 06/12/19 20 06/12/2019 CMP, serum or plasm a eGFR 44 mL/mi n/1.7 3m2 >59 low If patie nt is black , multi ply resul t by 1.159 . Estim ated glome rular filtr ation rate calcu lated using the CKD-E PI equat ion. Not Available [facility] (Outpatient) [address] [place], [address], 06/12/2019 16:09:37 06/12/19 20 06/12/2019 CMP, serum or plasm a anion gap 18 mmol/ L 10-20 Not Available [facility] (Outpatient) [address] [place], [address], 06/12/2019 16:09:37 06/12/19 20 06/12/2019 T4, free, serum free T4 1.4 NG/dL 0.9-1. 7 Not Available [facility] (Outpatient) [address] [place], [address], 06/12/2019 16:09:39 06/12/19 20 06/12/2019 TSH, serum or plasm a TSH 1.12 uIU/m L 0.27-4 .20 Not Available [facility] (Out[facility]) [address] [place], [address], 06/12/2019 16:09:40 01/21/20 20 01/21/2020 HbA1c (hemo globi n A1c), blood hemoglobin A1C 6.1 % 4.3-5. 8 high Not Available [facility] (Outpatient) [address] [place], [address], 01/21/2020 11:26:48 01/21/20 20 01/21/2020 lipid panel [...] hormo arnaud, sex and age. Not Available [facility] (Outpatient) [address] [place] [address], [address], 01/21/2020 11:36:33 01/21/20 20 01/21/2020 lipid panel , blood cholesterol 163 mg/dL 0-240 Not Available [facility] (Outpatient) [address] [place], [address], 01/21/2020 11:36:33 01/21/20 20 01/21/2020 lipid panel , blood triglyceride s 289 mg/dL 30-160 high Not Available [facility] (Outpatient) [address] [place], [address], 01/21/2020 11:36:33 01/21/20 20 01/21/2020 lipid panel , blood LDL 69 mg/dL 50-129 LDL level s in terms of risk for coron amol heart disea se: <100 mg/dL : Optim al 100-1 29 mg/dL : Near or above optim al 130-1 59 mg/dL : Alyse jacobo high 160-1 89 mg/dL : High >190 mg/dL : Very High Not Available [facility] (Outpatient) [address] [place], [address], 01/21/2020 11:36:33 01/21/20 20 01/21/2020 lipid panel , blood cardiac risk ratio 4.5 3.3-4. 4 high Not Available [facility] (Outpatient) [address] [place], [address], 01/21/2020 11:36:33 01/21/2001/21/2020 vitam in D, 25-hy droxy , total , serum 25 oh vit D (total) 37 NG/mL 30-60 Not Available [facility] (Outpatient) [address] [place], [address], 01/21/2020 11:50:58 01/21/2001/21/2020 CMP, serum or plasm a sodium 137 mmol/ L 133-14 6 Not Available [facility] (Outpatient) [address] [place], [address], 01/21/2020 11:51:29 01/21/2001/21/2020 CMP, serum or plasm a potassium 5.0 mmol/ L 3.3-5. 1 Not Available [facility] (Outpatient) [address] [place], [address], 01/21/2020 11:51:29 01/21/2001/21/2020 CMP, serum or plasm a chloride 105 mmol/ L 96-108 Not Available [facility] (Outpatient) [address] [place], [address], 01/21/2020 11:51:29 01/21/2001/21/2020 CMP, serum or plasm a CO2 21 mmol/ L 21-35 Not Available [facility] (Outpatient) [address] [place], [address], 01/21/2020 11:51:29 01/21/2001/21/2020 CMP, serum or plasm a BUN 27 mg/dL 6-19 high Not Available [facility] (Outpatient) [address] [place], [address], 01/21/2020 11:51:29 01/21/2001/21/2020 CMP, serum or plasm a creatinine 1.50 mg/dL 0.5-1. 5 Not Available [facility] (Outpatient) [address] [place], [address], 01/21/2020 11:51:29 01/21/2001/21/2020 CMP, serum or plasm a glucose 129 mg/dL 70-99 high Not Available [facility] (Outpatient) [address] [place], [address], 01/21/2020 11:51:29 01/21/2001/21/2020 CMP, serum or plasm a albumin 4.3 g/dL 3.9-4. 8 Not Available [facility] (Out[facility]) [address] [place], [address], 01/21/2020 11:51:29 01/21/20 20 01/21/2020 CMP, serum or plasm a total protein 7.3 g/dL 6.5-8. 0 Not Available [facility] (Outpatient) [address] [place], [address], 01/21/2020 11:51:29 01/21/2001/21/2020 CMP, serum or plasm a calcium 11.2 mg/dL 8.4-10 .3 high Not Available [facility] (Outpatient) [address] [place], [address], 01/21/2020 11:51:29 01/21/2001/21/2020 CMP, serum or plasm a alkaline phosphatase 48 U/L 39-117 Not Available [facility] (Outpatient) [address] [place], [address], 01/21/2020 11:51:29 01/21/20 20 01/21/2020 CMP, serum or plasm a total bilirubin 0.3 mg/dL 0.0-1. 2 Not Available [facility] (Outpatient) [address] [place], [address], 01/21/2020 11:51:29 01/21/2001/21/2020 CMP, serum or plasm a AST 15 U/L 0-37 Not Available [facility] (Outpatient) [address] [place], [address], 01/21/2020 11:51:29 01/21/2001/21/2020 CMP, serum or plasm a ALT 6 U/L 0-40 Not Available [facility] (Outpatient) [address] [place], [address], 01/21/2020 11:51:29 01/21/2001/21/2020 CMP, serum or plasm a globulin 3.0 g/dL 1-4.8 Not Available [facility] (Outpatient) [address] [place], [address], 01/21/2020 11:51:29 01/21/20 20 01/21/2020 CMP, serum or plasm a eGFR 33 mL/mi n/1.7 3m2 >59 low Estim ated glome rular filtr ation rate calcu lated using the CKD-E PI equat ion. Not Available [facility] (Outpatient) [address] [place], [address], 01/21/2020 11:51:29 01/21/20 20 01/21/2020 CMP, serum or plasm a anion gap 16 mmol/ L 10- Not Available [facility] (Outpatient) [address] [place], [address], 01/21/2020 11:51:29 01/21/20 20 01/21/2020 T4, free, serum free T4 1.1 NG/dL 0.9-1. 7 Not Available [facility] (Outpatient) [address] [place], [address], 01/21/2020 11:51:31 01/21/20 20 01/21/2020 TSH, serum or plasm a TSH 1.88 uIU/m L 0.27-4 .20 Not Available [facility] (Out[facility]) [address] [place], [address], 01/21/2020 11:51:33 01/21/20 20 01/21/2020 micro album in/cr eatin ine, mass ratio , urine urine microalbumin <1.2 mg/dL 0-2.3 Not Available [facility] (Outpatient) [address] [place], [address], 01/21/2020 16:09:45 01/21/20 20 01/21/2020 micro album in/cr eatin ine, mass ratio , urine urine creatinine 83 mg/dL Not Available [facility] (Outpatient) [address] [place], [address], 01/21/2020 16:09:45 01/21/20 20 01/21/2020 micro album in/cr eatin ine, mass ratio , urine microalb/cre ratio NOT CALCUL ATED mg/g_ cre 0-20 due to Micro album in <1.2 Not Available [facility] (Outpatient) [address] [place], [address], 01/21/2020 16:09:45 09/03/19 21 09/02/2020 CMP, serum or plasm a sodium 139 mmol/ L 133-14 6 Not Available [facility] (Outpatient) [address] [place], [address], 09/02/2020 11:43:26 09/03/19 21 09/02/2020 CMP, serum or plasm a potassium 5.3 mmol/ L 3.3-5. 1 high Not Available [facility] (Outpatient) [address] [place], [address], 09/02/2020 11:43:26 09/03/19 21 09/02/2020 CMP, serum or plasm a chloride 106 mmol/ L 96-108 Not Available [facility] (Outpatient) [address] [place], [address], 09/02/2020 11:43:26 09/03/19 21 09/02/2020 CMP, serum or plasm a CO2 23 mmol/ L 21-35 Not Available [facility] (Outpatient) [address] [place], [address], 09/02/2020 11:43:26 09/03/19 21 09/02/2020 CMP, serum or plasm a BUN 26 mg/dL 6-19 high Not Available [facility] (Outpatient) [address] [place], [address], 09/02/2020 11:43:26 09/03/19 21 09/02/2020 CMP, serum or plasm a creatinine 1.40 mg/dL 0.5-1. 5 Not Available [facility] (Outpatient) [address] [place], [address], 09/02/2020 11:43:26 09/03/19 21 09/02/2020 CMP, serum or plasm a glucose 114 mg/dL 70-99 high Not Available [facility] (Outpatient) [address] [place], [address], 09/02/2020 11:43:26 09/03/19 21 09/02/2020 CMP, serum or plasm a albumin 4.3 g/dL 3.9-4. 8 Not Available [facility] (Outpatient) [address] [place], [address], 09/02/2020 11:43:26 09/03/19 21 09/02/2020 CMP, serum or plasm a total protein 7.6 g/dL 6.5-8. 0 Not Available [facility] (Outpatient) [address] [place], [address], 09/02/2020 11:43:26 09/03/19 21 09/02/2020 CMP, serum or plasm a calcium 10.7 mg/dL 8.4-10 .3 high Not Available [facility] (Outpatient) [address] [place], [address], 09/02/2020 11:43:26 09/03/19 21 09/02/2020 CMP, serum or plasm a alkaline phosphatase 56 U/L 39-117 Not Available [facility] (Outpatient) [address] [place], [address], 09/02/2020 11:43:26 09/03/19 21 09/02/2020 CMP, serum or plasm a total bilirubin 0.2 mg/dL 0.0-1. 2 Not Available [facility] (Outpatient) [address] [place], [address], 09/02/2020 11:43:26 09/03/19 21 09/02/2020 CMP, serum or plasm a AST 16 U/L 0-37 Not Available [facility] (Outpatient) [address] [place] [address], [id number], 09/02/2020 11:43:26 09/03/19 21 09/02/2020 CMP, serum or plasm a ALT 7 U/L 0-40 Not Available [facility] (Outpatient) [address] [place], [address], 09/02/2020 11:43:26 09/03/19 21 09/02/2020 CMP, serum or plasm a globulin 3.3 g/dL 1-4.8 Not Available [facility] (Outpatient) [address] [place] [address], [address], 09/02/2020 11:43:26 09/03/19 21 09/02/2020 CMP, serum or plasm a eGFR 36 mL/mi n/1.7 3m2 >59 low Estim ated glome rular filtr ation rate calcu lated using the CKD-E PI equat ion. Not Available [facility] (Outpatient) [address] [place] [address], [id number], 09/02/2020 11:43:26 09/03/19 21 09/02/2020 CMP, serum or plasm a anion gap 15 mmol/ L 10-20 Not Available [facility] (Outpatient) [address] [place] [address], [id number], 09/02/2020 11:43:26 09/03/19 21 09/02/2020 lipid panel [...] carlito by gilma rebollar of facto rs, e.kavitha ashford, delfino ayala, philly lares, sex and age. Not Available [facility] (Outpatient) [address] [place], [address], 09/02/2020 12:00:24 09/03/19 21 09/02/2020 lipid panel , blood cholesterol 139 mg/dL 0-240 Not Available [facility] (Outpatient) [address] [place], [address], 09/02/2020 12:00:24 09/03/19 21 09/02/2020 lipid panel , blood triglyceride s 164 mg/dL 30-160 high Not Available [facility] (Outpatient) [address] [place], [address], 09/02/2020 12:00:24 09/03/19 21 09/02/2020 lipid panel , blood LDL 68 mg/dL 50-129 LDL level s in terms of risk for coron amol heart disea se: <100 mg/dL : Optim al 100-1 29 mg/dL : Near or above optim al 130-1 59 mg/dL : Borde rline high 160-1 89 mg/dL : High >190 mg/dL : Very High Not Available [facility] (Outpatient) [address] [place], [address], 09/02/2020 12:00:24 09/03/19 21 09/02/2020 lipid panel , blood cardiac risk ratio 3.7 3.3-4. 4 Not Available [facility] (Outpatient) [address] [place], [address], 09/02/2020 12:00:24 09/03/1909/02/2020 HbA1c (hemo globi n A1c), blood hemoglobin A1C 6.2 % 4.3-5. 8 high Not Available [facility] (Outpatient) [address] [place], [address], 09/02/2020 13:55:19 09/07/19 21 09/06/2020 micro album in/cr eatin ine, mass ratio , urine urine microalbumin <1.2 mg/dL 0-2.3 Not Available [employer]jinder otto [facility] (Outpatient) [address] [place], [address], 09/06/2020 18:43:58 09/07/19 21 09/06/2020 micro album in/cr eatin ine, mass ratio , urine urine creatinine 34 mg/dL Not Available [facility] (Outpatient) [address] [place], [address], 09/06/2020 18:43:58 09/07/19 21 09/06/2020 micro album in/cr eatin ine, mass ratio , urine microalb/cre ratio NOT CALCUL ATED mg/g_ cre 0-20 due to Micro album in <1.2 Not Available [facility] (Outpatient) [address] [place], [address], 09/06/2020 18:43:58 02/03/20 21 02/02/2021 HEMOG LOBIN A1C hemoglobin A1C 6.1 % 4.3-5. 8 high Not Available [facility] (Outpatient) [address] [place], [address], 02/02/2021 10:57:24 02/03/20 21 02/02/2021 LIPID PANEL [...] philly arnaud, sex and age. Not Available [facility] (Outpatient) [address] [place], [address], 02/02/2021 11:05:04 02/03/20 21 02/02/2021 LIPID PANEL cholesterol 159 mg/dL 0-240 Not Available [facility] (Outpatient) [address] [place], [address], 02/02/2021 11:05:04 02/03/20 21 02/02/2021 LIPID PANEL triglyceride s 247 mg/dL 30-160 high Not Available [facility] (Outpatient) [address] [place], [address], 02/02/2021 11:05:04 02/03/20 21 02/02/2021 LIPID PANEL LDL 74 mg/dL 50-129 LDL level s in terms of risk for coron amol heart disea se: <100 mg/dL : Optim al 100-1 29 mg/dL : Near or above optim al 130-1 59 mg/dL : Borde rline high 160-1 89 mg/dL : High >190 mg/dL : Very High Not Available [facility] (Outpatient) [address] [place], [address], 02/02/2021 11:05:04 02/03/20 21 02/02/2021 LIPID PANEL cardiac risk ratio 4.4 3.3-4. 4 Not Available [facility] (Outpatient) [address] [place], [address], 02/02/2021 11:05:04 02/03/20 21 02/02/2021 25-OH VITAM IN D 25 oh vit D (total) 34 NG/mL 30-60 Not Available [facility] (Outpatient) [address] [place], [address], 02/02/2021 11:16:20 02/03/20 21 02/02/2021 COMPR EHENS FORTINO METAB OLIC PANEL sodium 138 mmol/ L 133-14 6 Not Available [facility] (Outpatient) [address] [place], [address], 02/02/2021 11:26:12 02/03/20 21 02/02/2021 COMPR EHENS FORTINO METAB OLIC PANEL potassium 5.2 mmol/ L 3.3-5. 1 high Not Available [facility] (Outpatient) [address] [place], [address], 02/02/2021 11:26:12 02/03/20 21 02/02/2021 COMPR EHENS FORTINO METAB OLIC PANEL chloride 107 mmol/ L 96-108 Not Available [facility] (Outpatient) [address] [place], [address], 02/02/2021 11:26:12 02/03/20 21 02/02/2021 COMPR EHENS FORTINO METAB OLIC PANEL CO2 21 mmol/ L 21-35 Not Available [facility] (Outpatient) [address] [place], [address], 02/02/2021 11:26:12 02/03/20 21 02/02/2021 COMPR EHENS FORTINO METAB OLIC PANEL BUN 28 mg/dL 6-19 high Not Available [facility] (Outpatient) [address] [place], [address], 02/02/2021 11:26:12 02/03/20 21 02/02/2021 COMPR EHENS FORTINO METAB OLIC PANEL creatinine 1.50 mg/dL 0.5-1. 5 Not Available [facility] (Outpatient) [address] [place] [address], [address], 02/02/2021 11:26:12 02/03/20 21 02/02/2021 COMPR EHENS FORTINO METAB OLIC PANEL glucose 117 mg/dL 70-99 high Not Available [facility] (Outpatient) [address] [place] [address], [address], 02/02/2021 11:26:12 02/03/20 21 02/02/2021 COMPR EHENS FORTINO METAB OLIC PANEL albumin 4.3 g/dL 3.9-4. 8 Not Available [facility] (Outpatient) [address] [place], [address], 02/02/2021 11:26:12 02/03/20 21 02/02/2021 COMPR EHENS FORTINO METAB OLIC PANEL total protein 7.2 g/dL 6.5-8. 0 Not Available [facility] (Outpatient) [address] [place], [address], 02/02/2021 11:26:12 02/03/20 21 02/02/2021 COMPR EHENS FORTINO METAB OLIC PANEL calcium 11.1 mg/dL 8.4-10 .3 high Not Available [facility] (Outpatient) [address] [place], [address], 02/02/2021 11:26:12 02/03/20 21 02/02/2021 COMPR EHENS FORTINO METAB OLIC PANEL alkaline phosphatase 56 U/L 39-117 Not Available [facility] (Outpatient) [address] [place], [address], 02/02/2021 11:26:12 02/03/20 21 02/02/2021 COMPR EHENS FORTINO METAB OLIC PANEL total bilirubin 0.3 mg/dL 0.0-1. 2 Not Available [facility] (Outpatient) [address] [place], [address], 02/02/2021 11:26:12 02/03/20 21 02/02/2021 COMPR EHENS FORTINO METAB OLIC PANEL AST 14 U/L 0-37 Not Available [facility] (Outpatient) [address] [place], [address], 02/02/2021 11:26:12 02/03/20 21 02/02/2021 COMPR EHENS FORTINO METAB OLIC PANEL ALT 8 U/L 0-40 Not Available [facility] (Outpatient) [address] [place], [address], 02/02/2021 11:26:12 02/03/20 21 02/02/2021 COMPR EHENS FORTINO METAB OLIC PANEL globulin 2.9 g/dL 1-4.8 Not Available [facility] (Outpatient) [address] [place], [address], 02/02/2021 11:26:12 02/03/20 21 02/02/2021 COMPR EHENS FORTINO METAB OLIC PANEL eGFR 33 mL/mi n/1.7 3m2 >59 low Estim ated glome rular filtr ation rate calcu lated using the CKD-E PI equat ion. Not Available [facility] (Outpatient) [address] [place], [address], 02/02/2021 11:26:12 02/03/20 21 02/02/2021 COMPR EHENS FORTINO METAB OLIC PANEL anion gap 15 mmol/ L 10-20 Not Available [facility] (Outpatient) [address] [place], [address], 02/02/2021 11:26:12 02/03/20 21 02/02/2021 FREE T4 free T4 1.4 NG/dL 0.9-1. 7 Not Available [facility] (Outpatient) [address] [place], [address], 02/02/2021 11:26:14 02/03/20 21 02/02/2021 TSH TSH 0.91 uIU/m L 0.27-4 .20 Not Available [facility] (Outpatient) [address] [place], [address], 02/02/2021 11:26:15 02/03/20 21 02/02/2021 MICRO ALBUM IN/CR EATIN INE RATIO , RANDO M URINE urine microalbumin <1.2 mg/dL 0-2.3 Not Available [facility] (Outpatient) [address] [place] [address], [address], 02/02/2021 17:50:10 02/03/20 21 02/02/2021 MICRO ALBUM IN/CR EATIN INE RATIO , RANDO M URINE urine creatinine 97 mg/dL Not Available [facility] (Outpatient) [address] [place], [address], 02/02/2021 17:50:10 02/03/20 21 02/02/2021 MICRO ALBUM IN/CR EATIN INE RATIO , RANDO M URINE microalb/cre ratio NOT CALCUL ATED mg/g_ cre 0-20 due to Micro album in <1.2 Not Available [facility] (Outpatient) [address] [place], [address], 02/02/2021 17:50:10 07/09/19 25 07/10/2024 TIMED URINE DATA collection data 24 Not Available [facility] (Outpatient) [address] [place], [address], 07/10/2024 11:40:28 07/09/19 25 07/10/2024 TIMED URINE DATA total volume 1750 mL Not Available [facility] (Outpatient) [address] [place], [address], 07/10/2024 11:40:28 07/09/19 25 07/10/2024 CALCI UM, 24 HOUR URINE urine calcium 3.7 mg/dL Not Available [facility] (Outpatient) [address] [place], [address], 07/10/2024 13:00:44 07/09/19 25 07/10/2024 CALCI UM, 24 HOUR URINE calcium output 65 mg/to tal_o utput 100-30 0 low Not Available [facility] (Outpatient) [address] [place], [address], 07/10/2024 13:00:44 07/09/19 25 07/10/2024 CREAT ININE , 24 HR URINE urine creatinine 56 mg/dL Not Available [facility] (Outpatient) [address] [place], [address], 07/10/2024 13:00:45 07/09/19 25 07/10/2024 CREAT ININE , 24 HR URINE creatinine output 980 mg/to tal_o utput 600-18 00 Not Available [facility] (Outpatient) [address] [place], [address], 07/10/2024 13:00:45 07/09/19 25 07/10/2024 PHOSP HORUS , 24 HR URINE urine phosphorus 25.0 mg/dL Not Available [facility] (Outpatient) [address] [place], [address], 07/10/2024 13:00:47 07/09/19 25 07/10/2024 PHOSP HORUS , 24 HR URINE phosphorus output 437.5 mg/to tal_o utput 400-13 00 Not Available [facility] (Outpatient) [address] [place], [address], 07/10/2024 13:00:47 07/10/19 25 07/10/2024 PARAT YURI BURGOS (PTH) parathyroid hormone 115 pg/mL 15-65 high Not Available [facility] (Outpatient) [address] [place], [address], 07/10/2024 12:02:00 07/10/19 25 07/10/2024 RENAL PANEL sodium 139 mmol/ L 133-14 6 Not Available [facility] (Outpatient) [address] [place], [address], 07/10/2024 12:02:10 07/10/19 25 07/10/2024 RENAL PANEL potassium 4.3 mmol/ L 3.3-5. 1 Not Available [facility] (Outpatient) [address] [place], [address], 07/10/2024 12:02:10 07/10/19 25 07/10/2024 RENAL PANEL chloride 104 mmol/ L 96-108 Not Available [facility] (Outpatient) [address] [place], [address], 07/10/2024 12:02:10 07/10/19 25 07/10/2024 RENAL PANEL CO2 24 mmol/ L 21-35 Not Available [facility] (Outpatient) [address] [place], [address], 07/10/2024 12:02:10 07/10/19 25 07/10/2024 RENAL PANEL glucose 124 mg/dL 70-99 high Not Available [facility] (Outpatient) [address] [place], [address], 07/10/2024 12:02:10 07/10/19 25 07/10/2024 RENAL PANEL BUN 20 mg/dL 6-19 high Not Available [facility] (Outpatient) [address] [place], [address], 07/10/2024 12:02:10 07/10/19 25 07/10/2024 RENAL PANEL creatinine 1.30 mg/dL 0.5-1. 5 Not Available [facility] (Outpatient) [address] [place], [address], 07/10/2024 12:02:10 07/10/19 25 07/10/2024 RENAL PANEL calcium 10.5 mg/dL 8.4-10 .3 high Not Available [facility] (Outpatient) [address] [place], [address], 07/10/2024 12:02:10 07/10/19 25 07/10/2024 RENAL PANEL phosphorus 3.2 mg/dL 2.7-4. 5 Not Available [facility] (Outpatient) [address] [place], [address], 07/10/2024 12:02:10 07/10/19 25 07/10/2024 RENAL PANEL albumin 3.9 g/dL 3.9-4. 8 Not Available [facility] (Outpatient) [address] [place], [address], 07/10/2024 12:02:10 07/10/19 25 07/10/2024 RENAL PANEL eGFR 42 mL/mi n/1.7 3m2 >59 low Estim ated glome rular filtr ation rate calcu lated using the CKD-E PI refit equat ion. Not Available [facility] (Outpatient) [address] [place], [address], 07/10/2024 12:02:10 07/10/19 25 07/10/2024 RENAL PANEL anion gap 15 mmol/ L 10-20 Not Available [facility] (Outpatient) [address] [place], [address], 07/10/2024 12:02:10 07/10/19 25 07/10/2024 25-OH VITAM IN D 25 oh vit D (total) 30 NG/mL 30-60 Not Available [facility] (Outpatient) [address] [place], [address], 07/10/2024 12:18:58 07/10/19 25 07/21/2024 CASR GENE [...] t avail able at: [email or web address] :[email or web address] /Repo rts/C 53296 16-4O [email or web address] [email or web address] shx Metho d SEE [...] table varia nts was perfo rmed by alter mable fry dolog ies based on inter nal [...] eview s.org ). An onlin e resea [facility] oppor tunit y [place] Genom eConn ect (enrique mecon nect. org), a proje ct of ClinG en, is avail able for the recip ient of this claude ic test. This patie nt babatunde try colle cts de-id entif ied claude ic and healt h infor matio n to advan ce the knowl edge of claude ic varia nts. [facility] is a colla borat or [...] inter preta tion of these resul ts, [facility] atory claude ic couns elors can be conta cted at [phone]. Techn ical Limit ation s Next gener [...] table varia nts was perfo rmed by alter mable metho dolog ies based on inter nal labor [...] the prese nce of donor DNA. Call [facility] atori es for instr [...] ng may be neces mata to [place] fy the signi fican ce of resul ts. [...] y benig n are not repor carlito. Brianna ts from in silic o evalu ation tools may simpson e over time and kiki d be inter prete d with cauti on and profe ssion al clini christi judgm ent. TEST CLASS IFICA TION This test was devel oped and its perfo rmanc e laverne cteri stics deter mined by [facility] in a mary r consi stent with CLIA requmerrick villeda ts. This test has not been clear ed or appro javi by the U.S. Food and Drug Admin istra tion. Relea sed By James strong, Ph.D. Not Available [facility] (Outpatient) [address] [place] [address], [address], 07/21/2024 11:13:53 03/27/20 19 10/02/2018 MAMMO , scree declan, [...] Details Recorded Time Disorder of thyroid gland 42151844 Active 2017 [place], [facility] 8 08:28:01 Disorder of vitamin D 853987745 Active 2017 [place], [facility] 8 08:28:14 Hypercalc emia 23879594 Active 2017 [place], [facility] 8 08:28:28 Type 2 diabetes mellitus without complicat ion 063139343 Active 2017 [place], [facility] 8 08:29:28 Chronic kidney disease stage 3 557623974 Active 08/2020 [facility] 10:07:59 Chronic kidney disease due to type 2 diabetes mellitus 837892726545 Active 2020 [facility] 02/02/2021 GFR 33 Milana Rowland [facility] 1 09:47:09 Morbid obesity 676879454 Active 2021 BMI > or = 35 plus diagnosis of diabetes. Brenda Reddy[place] [facility], [facility] 2 10:11:12 Problem Notes None recorded. Procedures Surgical History Date Name Laterality Status Provider Name and Address Organization Details Recorded Time 8 Unlisted px accessory sinus completed Alla Emerson [facility] 03/27/2019 10:35:47 Imaging Results Imaging Date Name Status LastModified by Organiz ation Details LastModified Time 10/02/2018 MAMMO, screening, tomosynthesis, bilateral completed [facility] Information not available 03/27/2019 15:34:11 10/02/2018 bone density completed [facility] Information not available 03/27/2019 15:34:31 Procedure Notes None recorded. Medical Equipment None Reported. Allergies Allergen ID Allergen Name Allergen Category Reaction Reaction Severity Criticality Documentation Date Start Date Code Code System Note Provider Name and Address Organization Details Recorded Time 334856 Product containin g angiotens in-conver ting enzyme inhibitor (product) medicatio n Not available Not available Not available 06/16/2024 60776 009 SNOMED throa t swell ing Sangeetha Ceja [place] [facility], [facility] 5 11:32:28 Medications Name Sig Start [...] capsules every day by oral route. active taking 1 cap 40 mg daily Not Available Not Available Not Available aspirin 81 mg chewable tablet Chew [...] oxzide 250 mg four tabs daily active taking 5 tabs daily -spilts up Not Available Not Available Not Available Vitamin D3 1000iu daily 06/16 completed [...] Updated DateTime 9 158.12 cm 38 kg/m2 03059.5 2 g 64 /min 122 mm[Hg] 64 mm[Hg] Alla Emerson [facility] 9 10:38:49 Date Recorded Body weight Body mass index (BMI) Body height Heart rate Systolic blood pressure Diastolic blood pressure Provider Name and Address Organization Details Last Updated DateTime 1 54974.8 1 g 36.8 kg/m2 158.12 cm 86 /min 118 mm[Hg] 72 mm[Hg] Sri Leahy RN [facility] 1 09:57:09 Date Recorded Body weight Body mass index (BMI) Body height Heart rate Systolic blood pressure Diastolic blood pressure Provider Name and Address Organization Details Last Updated DateTime 5 96536.9 1 g 36.7 kg/m2 157.48 cm 92 /min 129 mm[Hg] 68 mm[Hg] Sangeetha Ceja LPN [facility] 5 11:42:20 Date Recorded Body height Body mass index (BMI) Body weight Heart rate Systolic blood pressure Diastolic blood pressure Provider Name and Address Organization Details Last Updated DateTime 5 157.48 cm 37.6 kg/m2 27215.5 9 g 89 /min 124 mm[Hg] 75 mm[Hg] Sangeetha Ceja LPN [facility] 5 14:48:27 Social History Question Answer Notes LastModified by Organizat ion Details LastModified Time Tobacco Smoking Status Never [facility]oker [facility] 12/12/2012 08:23:45 What Is Your Level Of Alcohol Consumption? Occasional Rare [email or web address] Information not available 06/16/2024 Which Illicit Or Recreational Drugs Have You Used? 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 04/01/2020 08:57:48 COVID-19, mRNA, LNP-S, PF, 30 mcg/0.3 mL dose 1 completed Sri Leahy RN null, [facility] 04/05/2021 09:50:59 COVID-19, mRNA, LNP-S, PF, 30 mcg/0.3 mL dose 1 completed Sri Leahy RN null, [facility] 04/05/2021 09:51:10 Influenza, split virus, quadrivalent, preservative 1 completed Sri Leahy RN null, [facility] 04/05/2021 09:51:28 Past Encounters Encounter ID Performer Location Encounter Start Date Encounter Closed Date Diagnosis/Indication Diagnosis SNOMED-CT Code Diagnosis ICD10 Code Diagnosis Note [id number] Jamaal Ham MD [facility], [address] [address] 12/12/2012 08:00:19 12/12/2012 09:21:36 Hypercalcemia 44022036 Pt with elevated Calcium in 11 in [...] age over 50. Pt to go to [facility] [place] [facility] [address], givencopy of lab slip at time of visit. BMD 08/15/12 [facility] spine-0.4, hips 01.8 neck -1.3 total, forearm +0.14 Jun 2012 Ca 11 [id number] Jamaal Ham MD [facility], [address] [address] 01/08/2013 15:42:16 01/08/2013 17:00:59 Disorder of thyroid gland 81664026 TSh 11 and has had TSH of [...] repeats labs would like to go to [address] since open Saturday AM and pt lives near there. Disorder of vitamin D 411614350 Vit D 18 and PTH slighlty elevated at 75. Caclium stable at 11.0 to 11.2 with normal/low urinary calcium. Most consistent with [facility]. Will try to slowly replete D and see if PTH corrects and aches resolve. Will have her take 3000 units of Vit D daily and repeat labs when repeats TSH and FT4 in 6 weeks. Hypercalcemia 81732937 s ee above. Will continue to monitor Calcium levels. 24 hour urine studies most consistent ly with FHH. Explained to pt that people with FHH have higher set points for calcium. If correction of D and TSH does not alleviate symptoms, and calcium remain elevated then will reevaluate at that time. [id number] Maryuri Torres PA-C [facility], [address] [address] 03/05/2013 10:31:44 03/05/2013 11:40:00 Disorder of thyroid gland 34465477 TSH was 11 and is now in [...] repeats labs would like to go to [address] since open Saturday AM and pt lives near there. Disorder of vitamin D 064269764 Vit D is now 26. Ca normal at 10.6, Will have her increase Vit D to 4000 units to get level over 30 and continue this through the winter. Will continue to monitor Ca in renal panel. Labs q 3 months and f/u in 6 months. repeat labs with next TSH in 3 months. Hypercalcemia 62982107 C a normal at 10.6 . see above. Hx=24 hour urine studies most consistent ly with [facility]. If correction of D and TSH does not alleviate symptoms, and calcium remain elevated then will reevaluate at that time. Left bundl e branch block 14600138 TSH improved to 4 from 11. Do not think T4 could be reason for extra beat pt is feeling. Pt to have f/u with Dr. Estevez in a few weeks and will discuss with him as well. [id number] Maryuri Torres PA-C [facility], [address] [address] 09/03/2013 10:31:16 09/03/2013 11:33:21 Disorder of thyroid gland 40016390 Is seeing Dr.Kirchof rojas in a few weeks to have f/u on her LBBB (preexisti ng condition) . Pt had echo in November and told has 20-30% blockage. Pt states on ASA and statin for this. labs would like to go to [address] since open Saturday AM and pt lives near there. Disorder of vitamin D 716380862 Hypercalcemia 52614287 H x=24 hour urine studies most consistent ly with [facility]. If correction of D and TSH does not alleviate symptoms, and calcium remain elevated then will reevaluate at that time. Left bundl e branch block [id number] contf/u with Dr. Estevez . [id number] Maryuri Torres PA-C [facility], [address] [address] 03/04/2014 14:26:06 03/04/2014 15:23:06 Disorder of thyroid gland 45086544 Disorder of vitamin D 581132440 Hypercalcemia [id number] H x=24 hour urine studies most consistent ly with FHH. If correction of D and TSH does not alleviate symptoms, and calcium remain elevated then will reevaluate at that time. Left bundl e branch block [id number] contf/u with Dr. Estevez . [id number] Jamaal Ham MD Endocrino logy, [address] [address] 09/21/2014 09:20:13 09/21/2014 10:22:15 Disorder of thyroid gland 73467403 TSH was 11 in 2012 and pt started on T4. TSH stable and to goal. Cont on 50 mcg daily of T4. f/u in 12 months labs q 6 months. Call if symptoms in the meantime and can decide about drawing labs sooner than recommende d date. Lab pt prefers is [address] since open Saturday AM and pt lives near there. Disorder of vitamin D 582906538 Vit D replete at 47 and Ca normal at 10.6,cont Vit D to 4000 units. Labs q 6 months and f/u yearly. Hypercalcemia 58554155 C a normal at 10.6 . see above. Hx=24 hour urine studies most consistent ly with FHH. If correction of D and TSH does not alleviate symptoms, and calcium remain elevated then will reevaluate at that time. Left bundl e branch block [id number] Follows with Dr.Kirchof rojas --hx of LBBB (preexisti ng condition) . Pt had echo in November 2013 and told has 20-30% blockage. Pt states on ASA and statin for this. last appt May 2014 when had pacer replaced. F/u with Dr. Estevez . [id number] Jamaal Ham MD Endocrino logy, [address] [address] 09/20/2015 09:34:26 09/20/2015 10:19:42 Disorder of thyroid gland 29218761 E07.9 TSH 4 and pt typically in 2's. Will try 75 mcg daily and repeat labs in 8 weeks. Will contact her if dose needs further adjustment after labs. Labs q 4 months after dose stable. f/u in 12 months. Call if symptoms in the meantime and can decide about drawing labs sooner than recommende d date. Lab pt prefers is [address] since open Saturday AM and pt lives near there. Disorder of vitamin D 38 7285932 E56.9 Vit D remaining replete Ca stable at 10.6. Cont Vit D to 4000 units. Labs q 6 months (March and September) and f/u yearly. Hypercalcemia 80118763 E 83.52 PTH normal. Ca normal at 10.6 . Cont to monitor q 6 months (March and September). Hx=24 hour urine studies most consistent ly with FHH. If correction of D and TSH does not alleviate symptoms, and calcium remain elevated then will reevaluate at that time. [id number] Jamaal Ham MD Endocrino logy, [address] [address] 09/20/2016 09:44:08 09/20/2016 10:26:42 Disorder of thyroid gland 76476509 E07.21 Jun 2016 labs to goal on 75 mcg of T4 daily. Cont this dose with labs q 6 months. F/u in 12 months. Lab pt prefers is [address] since open Saturday AM and pt lives near there. Disorder of vitamin D 38 9901449 E56.9 see below. Cont Vit D to 4000 units. Hypercalcemia 42272086 E 83.52 PTH had been normal in [...] Type 2 chanel betes mellitus without complication 202692026 E11.9 Managed by PCP and per pt A1c under 7. [id number] Jamaal Ham MD Endocrino logy, [address] [address] 06/10/2017 09:27:23 06/10/2017 10:47:39 Disorder of thyroid gland 88166600 E07.21 Mar 2017 labs to goal on 75 mcg of T4 daily. Cont this dose with labs q 6 months. Keep f/u in September. Lab pt prefers is [address] since open Saturday AM and pt lives near there. Disorder of vitamin D 38 9760847 E56.9 see below. Cont Vit D to 4000 units but want to update. 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 If D remaining high will reduce D level. May be able to lower D level. Keep appt in September. Hypercalcemia 43849022 E 83.52 PTH had been normal in setting of normal Ca and Vit D. Never got repeat Nov lab from [facility], looking at results in [facility] Ca [...] Type 2 chanel betes mellitus without complication 432675594 E11.9 Managed by PCP and per pt A1c under 7. [id number] Jamaal aHm MD Endocrino logy, [address] [address] 09/19/2017 09:24:45 09/19/2017 10:10:11 Disorder of thyroid gland 71103666 E07.19 August 2017 labs to goal.Cont levothyrox ine 75 mcg daily Labs q 6 months. Keep f/u in 6 months. Lab pt prefers is [address] since open Saturday AM and pt lives near there. Disorder of vitamin D 38 5389894 E56.9 Vit D was in 80's so dropped to 2000 units daily. Current testing remaining in 60's. With summer coming will have her take 1000 units daily and then in FAll (January - July) Take 2000 units in the winter. Hypercalcemia 91704188 E 83.52 PTH rising in setting of [...] Type 2 chanel betes mellitus without complication 459509369 E11.9 Managed by PCP and per pt A1c under 7 on low dose metformin ACR negative as well as of September 2017 testing with PCP. [id number] Maryuri Torres PA-C Endocrino logy, [address] [address] 03/28/2018 09:34:36 03/28/2018 10:29:32 Disorder of thyroid gland 45877301 E07.9 TSH normal Feb TSH 0.81 FT4 1.5 Cont levothyrox ine 75 mcg daily Labs q 6 months. Keep f/u in 6 months. Lab pt prefers is [address] since open Saturday AM and pt lives near there. Disorder of vitamin D 38 7993560 E56.9 03/12/18 Vit D still > 60. She had increased to 2000 units in February but do not have to increase. Will have her take 1000 units daily and check again in May 2018. Hypercalcemia 74596611 E 83.52 PTH remains high in setting [...] time and can monitor. She remains on [place]. Discussed importance of good hydration for both [...] Type 2 chanel betes mellitus without complication 064273177 E11.9 Managed by PCP and per pt A1c under 7 on low dose metformin. Per pt a1c 6.1 at last testing. [id number] Jamaal Ham MD Endocrino logy, [address] [address] 03/27/2019 10:18:13 03/27/2019 11:30:27 Type 2 diabetes mellitus without complication 881870430 E11.9 On metformin 500 mg daily- decreased by PCP Kristine because of increased creatinine .Doing well. With [facility]'s [facility] , pt. asking for more diabetes care here. Disorder of vitamin D 38 3368729 E55.9 42.2 (03/31); had been low in past but not in past years. Hypercalcemia 46886883 E 83.52 FHH as evidenccd by low urinary calcium (41 mg/24hr in 10/28) and high serum calcium.Cr eat= 1.5 (lately 1.3-1.6); Ca= 10.9 (was 10.8) ; Phos= 3.2 Hypothyroidism 92106138 E03.9 On 75 mcg levothyrox ine.Doing well clinically . [id number] Jamaal Ham MD Endocrino logy, [address] [address] 04/01/2020 08:45:09 04/01/2020 20:00:33 Type 2 diabetes mellitus without complication 746276089 E11.9 On metformin 500 mg daily- decreased by PCP Kristine because of increased creatinine .Doing well.a1c in 6s. no evidence of complicati ons at present. Disorder of vitamin D 38 2614831 E55.9 37 (01/30); was 42.2 (03/31); had been low in past but not in past years.Take s 1000 units daily. Hypercalcemia 34273329 E 83.52 FHH as evidenced by low urinary calcium (41 mg/24hr in 10/28) and high serum calcium.Cr eat= 1.5 (lately 1.3-1.6); Ca= 10.9 (was 10.8) ; Phos= 3.2 Hypothyroidism 44654390 E03.9 On 75 mcg levothyrox ine.Doing well clinically . Dyslipidem ia due to type 2 diabetes mellitus 6118917174 02 E78.5 2020: 163/289/36 /69;With high TG and low HDL.Encour age more activity.I f remains high, would consider either change to atorva, rosuva or possible addition of Vascepa. [id number] Jamaal Ham MD Endocrino logy, [address] [address] 04/05/2021 09:42:53 04/07/2021 06:32:39 Type 2 diabetes mellitus without complication 292140910 E11.9 On metformin 500 mg daily- decreased by PCP (Valarie Abad). Raeion/Riddhi reyDoing well.a1c in 6s. no evidence of complicati ons at present. Disorder of vitamin D 38 9845978 E55.9 34 (01/31); was 37 (01/30); was 42.2 (03/31); had been low in past but not in past years.Take s 1000 units daily. Hypercalcemia 39431283 E 83.52 FHH as evidenced by low urinary calcium (41 mg/24hr in 10/28) and high serum calcium.Cr eat= 1.5 (lately 1.3-1.6); Ca= 10.9 (was 10.8) ; Phos= 3.2 Hypothyroidism 81676444 E03.9 On 75 mcg levothyrox ine.Doing well clinically . Re-order levothyrox ine today with refill x 6 but will ask pt. to have PCP refill future Rx's. Dyslipidem ia due to type 2 diabetes mellitus 4314024169 02 E78.5 2020: 159-247 (were 164)-36-74 2020: 163/289/; With high TG and low HDL.Encour age more activity.I f remains high, would consider either change to atorva, rosuva or possible addition of Vascepa. [id number] Jamaal Ham MD Endocrino logy, [address] [address] 06/16/2024 10:55:56 06/29/2024 07:56:11 Type 2 diabetes mellitus without complication 932474057 E11.9 On metformin 500 mg daily- decreased by PCP (Valarie Abad). Tasha/Riddhi reyDoing well.a1c in 6s. Last was 6.9 in 2023.No evidence of complicati ons at present. Hypercalcemia 33518121 E 83.52 UNCONTROLL EDThought to be FHH [...] urinary studies.- check CASR gene mutation. Hypothyroidism 85518983 E03.9 On 75 mcg levothyrox ine.Doing well clinically . Dyslipidem ia due to type 2 diabetes mellitus 9370200846 02 E78.5 08/03: - 144/207/40 /63 on rosuva 5mg.2020: 159-247 (were 164)-36-74 2020: 163/289/36 /69; 07/07: Some improvemen t from previous values with high TG and low HDL. [id number] Jamaal Ham MD Endocrino logy, [facility] [place] [address] [place] [address] 09/08/2024 14:23:58 09/09/2024 19:39:38 Hypercalcemia 17934901 E83.52 UNCONTROLL EDThought to be FHH in past as evidenced by low urinary calcium (41 mg/24hr in 10/28) and high serum calcium. 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 Urinary studies in 2017 and 2024 show low Ca/Creat clearance. CASR gene mutation was normal but test notes possible mutations may not be noted with this test. Of note, BMD at forearm is not low (in fact, it's +0.4)- Would like to consider genetics consult but Dr. Todd says wait is very long (close to a year) POST VISIT DISCUSSION :Dr. Todd notes most [facility] patients have mildly abnormal PTH which she has typically had in past. Levels of 200 (reported by pt) seem high but can't confirm these in [facility] or [place] ([facility]).He agrees that surgery not appropriat e and, even if she has primary hyperpara, operating on 78 y.o. with several medical problems may have more risk than benefit. Hope to reach out to RENAL (Bakari) to further discuss.En courage pt. to stay on Cinacalcet for now. Type 2 chanel betes mellitus without complication 859314531 E11.9 On metformin 500 mg daily- decreased by PCP (Valarie Abad). Hession/Riddhi reyDoing well.a1c in 6s. Last was 6.9 in 2023.No evidence of complicati ons at present. Hypothyroidism 77673454 E03.9 On 75 mcg levothyrox ine.Doing well clinically . Dyslipidem ia due to type 2 diabetes mellitus 2468280610 02 E78.5 08/03: - 144/207/40 /63 on rosuva 5mg.2020: 159-247 (were 164)-36-74 2020: 163/289/36 /69; 07/07: Some improvemen t from previous values with high TG and low HDL. Hypomagnesemia 227613941 E83.42 Ongoing issue for her.Might be due to cinacalcet . Health Concerns Section Related Observation LastModified by Organization Detai ls LastModified Time None Recorded Concern Status LastModified by Organization Details LastModified Time None Recorded Advance Directives Directive None Recorded Payers Encounter Date Sequence Insurance Name Policy Number Policy Lara Covered Member ID Lara Member ID Guarantor Name 03/27/2019 1 [place] [employer] Annetta E McElwey [id number] Annetta Pandora McElwey 03/27/2019 2 [place] [id number] Annetta Pandora McElwey [id number] Annetta Pandora McElwey 04/01/2020 1 [place] [employer] Annetta E McElwey [id number] Annetta Chinyere McElwey 04/01/2020 2 [place] [id number] Annetta Chinyere McElwey [id number] Annetta Chinyere McElwey 04/05/2021 1 [place] [employer] Annetta E McElwey [id number] Annetta Chinyere McElwey 04/05/2021 2 [place] [id number] Annetta Pandora McElwey [id number] Annetta Pandora McElwey 06/16/2024 1 [place] Annetta E McElwey [id number] Annetta Pandora McElwey 06/16/2024 1 [facility] [id number] Annetta E McElwey [id number] Annetta Pandora McElwey 09/08/[address] [place] [address] (MEDICARE REPLACEMENT/ ADVANTAGE - PPO) [id number] Annetta Strickland [id number] Annetta Strickland Notes Date Note Type Note Provider Name and Address Organization Details Recorded Time 9 text/html DiabetesReported bypatient.Labs:last Hemoglobin A1C: (6s.); [...] bypatient.Previous Evaluation:TSH: (0.8 (02/27)); free T4: (1.5 (10.18)) Treatment:levoxyl, dose: 75 mcg (takes in AM.); [...] stones. BMD: Done at [facility]. 2018. ROS: No fevers or chills.Had sinus fungal infection in 2018.Can be SOB if rushing and gets anxiousNo muscle aches or pains. No cramping.No dizziness with standing in AM. No bruises or rashes. ` Jamaal Ham MD [address] [place] [address], [phone], [facility] 03/30/2019 15:28:25 0 text/html DiabetesReported bypatient.Labs:last Hemoglobin [...] Hypoglycemia Symptomsfrequency of hypoglycemic episodesinfrequently (metformin only.); [place] funny (Shivering in middle of night- trembling) [...] was notified that the provider location is [facility] [place]: home During the visit the [...] kidney stones.BMD: Done at [facility]. 2018. ROS: No fevers or chills.Had sinus fungal infection in 2018.Can cough or SOB (besides described elsewhere with activity or stress)No muscle pains. No cramping. Gets leg cramps- has tonic water nightly. No dizziness with standing in AM. No bruises, itching or rashes. Jamaal Ham MD [address] [place] [address], [phone], [facility] 04/01/2020 09:48:45 1 text/html DiabetesReported bypatient.Labs:last Hemoglobin [...] artery disease s/p pacemaker; no retinopathy ([facility] ([facility])); no numbness of feet;kidney disease chronic renal [...] per night.);anxiety(occasiona l)Notes:HAIR: no changesNAILS: Some breaking/splitting. 11/21: Ongoing sx of SOB with stress or doing a lot of movement (e.g, making supper with multiple courses).Emotionally stresses too.Checks in by phone with tracings periodically.Will be seeing new CARDS in [place].But also has had nuclear ETT at [place]. PCP- Valarie Abad.CARDIAC: Switching to [place] (Subramarian)- [...] kidney stones.BMD: Done at [facility]. 2018. ROS:No fevers or chills.Had sinus fungal infection in 2018.Can cough or SOB (besides described elsewhere with activity or stress)No muscle pains. No cramping. Gets leg cramps- has tonic water nightly. No dizziness with standing in AM.No bruises, itching or rashes. Jamaal Ham MD [address] [place] [address], [phone], [facility] 04/05/2021 22:06:34 5 text/html DiabetesReported bypatient.Labs:last Hemoglobin A1C: 6s at goal (6.9 ([place] in 2023); was 6.1 (01/31); was 6.2 [...] Symptomscoronary artery disease s/p pacemaker; no retinopathy (([facility] )); no numbness of feet;kidney disease chronic renal insufficiency Hypoglycemia Symptomsfrequency of hypoglycemic episodesinfrequently (metformin only.); Occ sx of shaking but if checks, hasn't seen low value. Nothing below 90-100.Notes: 01/31:159-247 (were 164)-: 163/289/; on prava.discussed impact of exercise. BG [...] tracings periodically.Will be seeing new CARDS in [place].But also has had nuclear ETT at [place]. Last seen in 2020.PCP- Valarie Abad.CARDIAC: Switching to [place] (Subramarian)- for pacer.RENAL is Arsen Villegas ([place])ENT: [place] T2DM, hypothyroidism and hypercalcemia (previously thought secondary to FHH). Follow-Up: disorder of thyroid glandFollow-Up: Type 2 diabetes mellitus without complicationFollow-Up: hypercalcemiaFollow-Up: disorder of vitamin DHypothyroidismLV 1LAst labs 08/03 added to chart last A1C- 6.9 had at doctors at [facility] corpPT states has a adenoma on parathyroidChecks blood sugars daily FBS will write down Past MED HX:T2DM with CKD (GFR <45)HYPOTHYROIDHYPERCALCE FREDRICK (chronic- FHH)Pacemaker- replaced 2023 Other hx: migraines [...] ENT: told throat sx are from reflux. ([place])Gout: Takes prednisone 3-4 x per year (usually [...] Magalie (46)- doing OK. 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 Lynne ([facility] ) and Amara- ([employer])daughter (50)- Herman at [employer]. 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 U/S done at [place].Big concern: told of adenoma on parathyroid. Calciums in 11s. PTH in triple digits.On cinacalcet but hasn't impacted PTH. Not affecting Ca much. Makes her nauseated.Told it depletes Mg.Interested in surgery as option. seeing him next month.RENAL is Athreya([place]) Hx of hypercalcemia thought to be due to FHH. 2018: urine C was LOW= 3.9 mg/dL (31 mg/24 hrs)No hx of kidney stones.BMD: Done at [facility]. 2018. Ca= 10.7 (05/05); was 10.1 [...] PREVIOUS 24 HR URINE (2017)Creatinine Clearance................ ........................5 [id number]............... ......................... >80Phosphorus Clearance................ .....................11.5 [id number].................. ......................5 to 15Tubular Reabsorption of Phosphorus........80.1711 3095..................... ...................82-97% Calcium/Creatinine Clearance................ .........[id number]..... ......................... ........<0.01 C/W FHHLow Ca/Creat clearance and TRP are c/w [facility]. KIDNEY STONES: NONEFRACTURES: NONEBONE PAIN: Sometimes- everything [...] in abdomen.M/S sx: arthritic. Jamaal Ham MD [address] [place] [address], [phone], [facility] 06/28/2024 14:21:00 5 text/html DiabetesReported bypatient.Labs:last Hemoglobin A1C: 6s at goal (6.9 ([place] in 2023); was 6.1 (01/31); was 6.2 [...] Symptomscoronary artery disease s/p pacemaker; no retinopathy (([facility] )); no numbness of feet;kidney disease chronic renal insufficiency Hypoglycemia Symptomsfrequency of hypoglycemic episodesinfrequently (metformin only.); Occ sx of shaking but if checks, hasn't seen low value. Nothing below 90-100.Notes:08/03 -144/207/40/63 01/31:159-247 (were 164)-36-: 163/289//69; on prava.discussed impact of exercise. BG fastin-146 (04/02); was 116-145 (04/01) Pt. feels 140s if does NOT have snack night before. ThyroidReported bypatient.Previous Evaluation:TSH: (1.28 (07/07); was 0.91 (01/31); was 1.88 (01/30); was 1.12; was 0.8 (02/27)); free T4: (1.53 (07/07); was 1.4 (01/31); was 1.1 (01/30); was 1.5 (.)) Treatment:levoxyl, dose: 75 mcg, frequency: (takes in AM.); *30-45 minutes between pill and breakfast. * Constitutional:no heat intolerance;cold intolerance(mostly in hands if less than 70 degrees.) Neck:no difficulty swallowing; no masses Heart:no rapid heart rate; no palpitations; no chest pain; no tightness or pressure; Uses pacemaker 90% of time. GI:no constipation Neurological:no tremor; no insomnia (better with CPAP);anxiety(occasional) Notes: 04/02: Ongoing sx of SOB with stress or doing a lot of movement (e.g, making supper with multiple courses).Emotionally stresses too.Checks in by phone with tracings periodically.Will be seeing new CARDS in [place].But also has had nuclear ETT at [place]. PCP- Valarie Abad.CARDIAC: Switching to [place] (Subramarian)- for pacer.RENAL is Arsen Villegas ([place])ENT: [place] Follow-Up: disorder of thyroid glandFollow-Up: Type 2 diabetes mellitus without complicationFollow-Up: hypercalcemiaFollow-Up: disorder of vitamin DHypothyroidismLV 07/07LAst labs 07/07 added to chart last A1C- 6.9 had at doctors at Lab corplabs cuedChecks blood sugars daily FBS PT forgot meter today running running in the 105'sthis am FBS was 122 and the blood sugars are no more then 110 T2DM, hypothyroidism and hypercalcemia (previously thought secondary to FHH). Past MED HX:T2DM with CKD (GFR <45)HYPOTHYROIDHYPERCALCE FREDRICK (chronic- FHH)Pacemaker- replaced 2023 Other hx: migraines [...] days; 40 mg then 20 mg then off).09/04: no changes. Bakari has her cinacalcet QOD, has low Mg and is replacing with 1250 daily.Saw Perez (08/04)- per pt, he told her she might be candidate for surgery but would need to be medically cleared. SOCIAL: Chair exercises in past09/04: Saw Pulmonary - encouraged her to move more. FAM Hx:04/01: Magalie on pump again; Grands are 11 years old. school from home. 2 other grandsons (one same age as girls) school [employer].04/02: Lynne?sister are 12 grandsons are 15/16 - has truck in pieces hoping to build07/07: Magalie (46)- doing OK. 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 Lynne ([employer] ) and Amara- ([employer])daughter (50)- Herman at [employer]. 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 U/S done at [place].Big concern: told of adenoma on parathyroid. Calciums in 11s. PTH in triple digits.On cinacalcet but hasn't impacted PTH. Not affecting Ca much. Makes her nauseated.Told it depletes Mg.Interested in surgery as option. seeing him next month.RENAL is Citlalireya([place]) Hx of hypercalcemia thought in past to be due to FHH.(see A/P for summary) 2018: urine C was LOW= 3.9 mg/dL (31 mg/24 hrs)No hx of kidney stones.BMD: Done at [facility]. 2017. Ca= 10.7 (09/01/24 per pt); was 10.5 (07/07); was 10.7 (05/05); was 10.1 (04/05); was 11.1 (03/05); was 11.2 (03/05); was 11.4 (01/03); was 11.6 (01/03);Values were normal in 2023: 10.1 (09/03); was 10.0 (08/03); was 9.8 (08/03) was 10.1 (08/03); was 10.6 (08/03); was 11.0 (07/06)Older values: 11.1 (01/31); was 10.7 (08/31); was 11.2 (01/30); was 10.9 (06/01 and 03/31); was 10.8 (08/29); was 11.1 (07/01);Highest was 11.2 (2016) D= 30 (07/07) was 30 (01/03); previously was 34 (01/31); was 37 (01/30) creat= 1.3 (08/04) was 1.1 -1.4 (2023); high of 1.8 (08/03) and low of 1.04 (10/03);PAST: 1.5 (01/31); was 1.4 (08/31); was 1.5 (01/30); was 1.2 (06/01); was 1.5 (03/31); was 1.3 (08/29); was 1.6 (07/01) Albumin consistently normal. PTH= 201.7 (09/01/24 per pt); was 196.3 (07/30/24 per pt); was 115 (07/07) was 200 (06/06); was 217 (05/05); was 225 (04/05); was 227 (04/05); was 50 (03/05); was 187 (03/05); was 202 (01/03); PVIX= 124 (04/04) was 93 (02/02); was 122 (12/02);OLDER PTH values: 91 (09/27); was 74 (03/29); was 71 (09/26); was 83 (06/29); was 83 (06/29); was 61 (09/25) PTH scan (03/05): increased sestamibi activity adjacent to posterior aspect of right lower lobe PHOS (2.7-4.5): 3.2 (08/04); was 3.5 (01/03); was 2.9 (10/03) Mg= 1.6 (09/01/24 per pt and also 06/06); was 1.4 (08/04 per pt); was 1.5 (06/06); was 1.4 (05/05); was 1.5 (05/05); was 1.8 (04/05); was 1.7 (03/05); was 1.8 (03/05 and 02/03) and 2.1 (01/03);Thought that Mg low (05/05) d/t cincacalcet. KIDNEY STONES: NONEFRACTURES: NONEBONE PAIN: Sometimes- everything hurts.09/04: bones aching more lately. past few days (09/04)Told of [facility]- using CPAP since 02/03)-feels it's helping. not as tired in AM.SYMPTOMS OF IRRITABILITY: NONE per pt or . POLYURIA: Nocturia x1. No daytime polyuria.CONTSTIPATION: NONEIRREGULAR HEART RATE: Rarely (09/04). Has pacemaker. occ wave and feels lightheaded. seconds. uses pacemaker 90% of time. feels more lately than in past Hx of cancer/malignancy: NONE Calcium intake: NONE. Ice cream daily (09/04). 1/4 cup on cereal.Vitamin D intake: Was on but told to stop by renal- 1000 units/day ROS:Fatigue: ongoing (09/04)Sleeps better with CPAP (dry mouth).SOB: intermittent. Jamaal Ham MD [address] [place] [address], [phone], [facility] 09/09/2024 19:39:34 OBGyn Episode No OBEpisode recorded.
[2024-09-14 08:45] LABS: Magnesium 1.7 mg/dL (1.6-2.6)
== END 2024-09-14 07:34 | disposition home or self-care (01) ==
LOC: HO.LABR 07:33
PROVIDERS: PCP Nurse Practitioner Primary Care; Visit Provider Nurse Practitioner Primary Care
DX: E21.3 Hyperparathyroidism, unspecified (principal); E03.9 Hypothyroidism, unspecified; I10 Essential (primary) hypertension
CPT/HCPCS: 36415; 83735

== ENCOUNTER 2024-09-21 12:31 | Outpatient (AMB) | payer MEDICARE, SELFPAY ==
--- OUTSIDE RECORDS SUMMARY | 2024-09-21 12:57 | XMS_ITS | Encounter Summary ---
Author Organization [facility] Address [address] [facility] [address] [place] [address] Phone Care Team Providers Care Project Landscape Architect Name Role Phone Carmita Dietz CABLE MAKER-C Primary Care Provider + Reason for Visit * Reason Comments Med Refill Encounter Details Date Type Department Care Team (Late st Contact Info) Description 02/27/2023 Refill [facility] [address] [place] [phone] Arsen Villegas MD Social History Tobacco Use [...] on filedocumented in this encounter Care Teams Project Landscape Architect Relationship Specialty Start Date End Date Carmita Dietz NP-C [address], [address] [place] [address] PCP - General Nurse Practitioner 07/18/22 documented as of this encounter
--- OUTSIDE RECORDS SUMMARY | 2024-09-21 12:57 | XMS_ITS ---
Author Organization [facility] Address [address] [place] [address] Care Team Providers Care Metal Furniture Glazier Name Role Phone Archie Finch MD Primary Care Provider Cash Casanova [phone] Encounters Encounter Location Date Provider Diagnosis [facility] [address] [place] [address] 03/15/2024 aCsh Mercado Plan Of Treatment No Information Progress Notes * LULI DE LUNA EDOB:1945 (78 yo F)Acc No.[id number]:03/15/2024 Patient:?LULI DE LUNA :1945???Age:78 Y???Sex:Female Address:[address] [place] [address] * true * Date:? Generated for Nehemiah ashford/Opal/eTransmitting on:?09/21/2024 12:57 PM EDT
--- OUTSIDE RECORDS SUMMARY | 2024-09-21 12:57 | XMS_ITS ---
Author Organization [facility] Address [address] [place] [address] Care Team Providers Care Mast Maker Name Role Phone Archie Finch MD Primary Care Provider Cash Casanova [phone] Allergies Allergen (clinical drug ingredient) Drug/Non Drug [...] Orally every 6 hrs Active Biotin Maximum 14493 MCG as directed Orally Active Cinacalcet HCl [...] W/U Status Risk Notes Problem Erosive esophagitis (75321680) Erosive esophagitis (K22.10) Active confirmed Problem Hernia, hiatal (K44.9) Active confirmed Vital Signs Blood pressure systolic 130 mm Hg 03/03/20 24 Blood pressure diastolic 74 mm Hg 024 Height 62.50 in 03/03/2024 Weight 197 lbs 03/03/2024 BMI 35.45 kg/m2 03/03/2024 Encounters Encounter Location Date Provider Diagnosis [facility] [address] [place] [address] 03/03/2024 Cash Mercado Erosive esophagitis K22.10 and [...] LULI DE LUNA EDOB:1945 (78 yo F)Acc No.[id number]:03/03/2024 Progress Notes Patient:?LULI DE LUNA E Provider:?Cash Mercado MD :1945???Age:78 Y???Sex:Female D ate:03/03/2024 Address:[address] [place] [address], [facility] Pcp:Archie Finch MD Subjective: * Chief Complaints: [...] Screen?Points: 0, Interpretation: Negative.?Miscellaneous:?Marital status: . 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 ???Nonsmoker; no sig [...] as needed Orally every 6 hrsBiotin Maximum 92315 MCG Tablet Disintegrating as directed Orally Spironolactone [...] needed Orally every 6 hrsTaking Biotin Maximum 45264 MCG Tablet Disintegrating as directed Orally Taking [...] every morning.?? * Procedure Codes:?1036F TOBAC CO NON-[id number] BP SCR NOT PRFRM REC REASON NOS [...] MD Date:? 024 Generated for Aishai dejon/Opal/eTransmitting on:?09/21/2024 12:57 PM EDT History and Physical Notes * HPI [...]
--- OUTSIDE RECORDS SUMMARY | 2024-09-21 12:57 | XMS_ITS | Clinical Summary ---
Author Organization [facility] Address [address] [place] [address] Care Team Providers Care Strength And Conditioning Coach Name Role Phone Unavailable Primary Care Provider [...]
--- OUTSIDE RECORDS SUMMARY | 2024-09-21 12:58 | XMS_ITS | Data Portability ---
Author Organization [place] - [facility] Address [address] [address] Care Team Providers Care Glass Laminating Operator Name Role Phone JACOBO ABAD Primary Care [...] mupirocin 2 % topical ointment 2024 025 [facility][id number], [address] [facility], [place], [address], 5 11:51:39 Patient TargetsNo targets recorded. Patient InstructionsNo instructions recorded. Reason for Referral None Reported. Problems Name Problem SNOMED Code Status Onset Date Resolution Date Notes Provider Name and Address Organization Details Recorded Time Chronic sphenoid al sinusiti s 48260296 Completed 201712/13/2023 Chronic sphenoid al sinusiti s; Note: Date Diagnose d: 04/28/20 8:26 PM (J32.3) Chroni c sphenoid al sinusiti s; Note: Date Diagnose d: 8 11:01 AM (J32.3) ; Start Date : 02/11/20 Not Available [facility] 4 03:07:58 Follow-u p visit Active 2017 Encounte r for follow-u p examinat ion after complete d treatmen t for conditio ns other than malignan t neoplasm ; Note: Date Diagnose d: 04/21/20 2:55 PM (Z09) Not Available [facility] 4 03:08:00 Ulcerati ve rhinitis 16895193 Active 2019 Nasal mucositi s (ulcerat adriana); Note: Date Diagnose d: 0 1:36 PM (J34.81) Not Available [facility] 4 03:08:00 Migraine 14832658 Active 2017 Other migraine , not intracta ble, without status migraino kervin; Note: Date Diagnose d: 8 10:47 AM (G43.809 ) Not Available [facility] 4 03:07:58 Headache 73392755 Active 2019 Facial pain NOS; Note: Date Diagnose d: 02/25/20 1:22 PM (R51) Facial pain NOS; Note: Date Diagnose d: 8 10:47 AM (R51) ; Start Date : 02/11/20 Not Available [facility] 4 03:07:59 Angio[place] ma 53130425 Active 2023 Angioneu rotic edema, initial encounte r; Note: Date Diagnose d: 4 9:06 AM (T78.3XX A) Not Available [facility] 4 03:08:00 Gastroes ophageal reflux disease 013150053 Active 2024 SANDIE WILLIAM MD [address] [facility],[address] [facility], [place], [address] , [facility] 5 08:18:24 Obstruct adriana sleep apnea syndrome 08779673 Active 2024 SANDIE WILLIAM MD [address] [facility],[place] [address], [place], [address] , [facility] 5 08:18:33 Problem Notes None recorded. Procedures Surgical History Date Name Laterality Status Provider Name and Address Organization Details Recorded Time 06/12/19 Fiberoptic Laryngoscopy (Comprehensive) completed SANDIE WILLIAM MD [address] [facility],[place] [address], [place], [address], [facility] 06/13/2024 08:17:40 Imaging Results None recorded. [...] layed release 06/12 completed Medicati on ID: [id number] D uration Value: 90 Brand Name: pantopra zole Sen d Method: E-Prescr ibed Sub s Allowed: subs OK Speci al Instruct ion: TAKE 1 TABLET BY ORAL ROUTE DAILY Me dication GenericN radha: pantopra zole Not Available Not Available Not Available pravastat in 20 mg tablet 2017 active Medicati on ID: [id number] D uration Value: 90 Brand Name: pravasta [...] by mouth 06/12 completed Medicati on ID: [id number] D uration Value: 7 Prescri bed By Name: Sandie weiss MD Brand Name: cefuroxi me axetil S end Method: E-Prescr ibed Sub s Allowed: subs OK Medic ationGen ericName : cefuroxi me axetil Not Available Not Available Not Available amoxicill in 875 mg-potass ium clavulana te 125 mg tablet 05/09 completed Medicati on ID: [id number] D uration Value: 10 Reason: () Brand [...] Available Advil 04/21 completed Medicati on ID: [id number] R sergio: () Brand Name: advil Se nd Method: E-Prescr ibed Sub s Allowed: subs OK Medic ationGen ericName : advil Not Available Not Available Not Available Tylenol 06/12 completed Medicati on ID: [id number] B rand Name: tylenol Send Method: E-Prescr ibed Sub s Allowed: subs OK Medic ationGen ericName : tylenol Not Available Not Available Not Available amlodipin e 10 mg-benaze pril 40 mg capsule 06/12 completed Medicati on ID: [id number] D uration Value: 90 Brand Name: amlodipi [...] Updated DateTime 06/12/2024 157.48 cm 36.6 kg/m2 81692.47 g Georgette Lynn [place] - [facility] 06/12/2024 11:32:13 Social History None recorded. [...] SNOMED-CT Code Diagnosis ICD10 Code Diagnosis Note [id number] SANDIE WILLIAM MD [facility] [address] [place] [address] 06/12/2024 11:19:33 06/12/2024 11:55:40 Ulcerative rhinitis 87653454 J34.81 Gastroesop hageal reflux disease 244605334 K21.00 Obstructiv e sleep apnea syndrome 80507750 G47.33 Health Concerns Section Related Observation LastModified by Organization Detai ls LastModified Time None Recorded Concern Status LastModified by Organization Details LastModified Time None Recorded Advance Directives Directive None Recorded Payers Insurance Date Sequence Insurance Name Policy Number Policy Lara Covered Member ID Lara Member ID Guarantor Name 06/12/2024 1 [facility] [id number] 01 Annetta E E McElwey [id number] Annetta E McElwey 06/15/2024 1 [facility] (MEDICARE REPLACEMENT /ADVANTAGE - PPO) [id number] Annetta E E McElwey [id number] Annetta E McElwey Notes Date Note Type Note Provider Name and Address Organization Details Recorded Time 06/12/2024 text/html 78 yo F presents for evaluation of her throatangioedema last year seen [facility] [place] [facility] CPAP, right side of nose gets crusting, uses AYR saline and gel esophagitis and gastritis in September, on omeprazole gets scratchy, this week is a little better SANDIE WILLIAM MD [address] [place] [address], [phone], [facility] - [facility] 06/13/2024 08:20:50 OBGyn Episode No OBEpisode recorded.
--- OUTSIDE RECORDS SUMMARY | 2024-09-21 12:58 | XMS_ITS | Patient Health Record ---
Author Organization [facility] Address [address] [place] [address] Care Team Providers Care Milk Condenser Name Role Phone Archie Finch MD Primary Care Provider Cash Casanova Unavailable [phone] Allergies Allergen (clinical drug ingredient) Drug/Non Drug Allergy documented on EMR Reaction Allergy Type Onset Date Status angiotensin-converting enzyme inhibitor (FN) EMELIA Inhibitors Unknown Drug Allergy Acti ve Results Component Value Reference Range Notes Glucose, Whole Blood Reviewed date:10/03/2023 09:15:19 AM Interpretation: Performing Lab:[facility], [address] [place] [address] Notes/Report: Glucose, Whole Blood 128 60-115 mg/dL METER # : [id number] Pathology Reviewed date:10/19/2023 09:51:24 PM Interpretation: Performing Lab:[facility], [address] [place] [address] Notes/Report: ---- Name: Ellis Fishman Age/Sex: 77/F : 1945 Unit#: [id number] Attend Dr: Cash Mercado Re10/03/23 Status : DEP [facility] Location: HO.SSS Disch: ---- SPEC : [id number] RECD : 10/03/23 STATUS: GEOVANNA FERNANDEZ NUM: [id number] JOSE A: 10/03/[address] [facility] [address]: Cash Mercado ENTERED: 10/03/23-01 29 SP TYPE: Surgical OTHR DR: Carmita Dietz [place] ORDERED: HE Stain/3, Gross Micro L4, IHC, [...] stains on A1. Copies To: Carmita Dietz [facility]A [address] [facility] [address] [place] [address] Cash Mercado [address] [place] [address] [id number] [place] [address] ---- Signed (signature on file) Mellissa [...] Orally every 6 hrs Active Biotin Maximum 15546 MCG as directed Orally Active Rosuvastatin Calcium [...] W/U Status Risk Notes Problem Epigastric pain (75284857) Epigastric pain (R10.13) Active confirmed Problem 828490680 Encounter for screening for malignant neoplasm of colon (Z12.11) Active confirmed Problem 885462886 History of adenomatous polyp of colon (Z86.010) Active confirmed Problem Ulcer of esophagus (01968316) Ulcer of esophagus without bleeding (K22.10) Active confirmed Problem Diverticular disease of colon (080940663) Diverticulosis of large intestine without perforation or abscess without bleeding (K57.30) Active confirmed Problem 070904212 Gastroesophageal reflux disease without esophagitis (K21.9) Active confirmed Problem Hiatal hernia (99680537) Hiatal hernia (K44.9) Active confirmed Problem Gastritis, chron ic (K29.50) Active confirmed Problem Computed tomography result abnormal (818107882) Abnormal CT scan, colon (R93.3) Active confirmed Problem Erosive esophagitis (24667440) Erosive esophagitis (K22.10) Active confirmed Problem 244508122 Irregular bowel habits (R19.8) Active confirmed Problem 10870465 Incontinence of feces, unspecified fecal incontinence type (R15.9) Active confirmed Problem Hernia, hiatal (K44.9) Active confirmed Problem Gastroesophageal reflux disease (298604083) Chronic GERD (K21.9) Active confirmed Vital Signs Blood pressure diastolic 74 mm Hg 03/03/2024 Height 62.50 in 03/03/2024 Blood pressure systolic 130 mm Hg 03/03/2024 Weight 197 lbs 03/03/2024 BMI 35.45 kg/m2 03/03/2024 Encounters Encounter Location Date Provider Diagnosis [facility] [address] [place] [phone] 10/03/[address] scan, co karena R93.3 ; Diverticulosis of large intestine without perforation or abscess without bleeding K57.30 ; Other hemorrhoids K64.8 ; Ulcer of esophagus without bleeding K22.10 ; Hiatal hernia K44.9 ; Gastritis, chronic K29.50 ; Hematemesis K92.0 and Abdominal pain R10.9 [facility] [address] [place] [address] 03/03/2024 Cash Mercado Erosive esophagitis K22.10 and Hernia, hiatal K44.9 [facility] [address] [place] [address] 09/22/2023 Cash Mercado [facility] [address] [place] [phone] 10/03/2023 Cash Mercado [facility] [address] [place] [address] 03/15/2024 Cash Mercado [facility] [address] [place] [address] 03/26/2024 Cash Mercado Assessments Encounter Date Diagnosis (ICD Code) Assessment Notes Treatment Notes Treatment Clinical Notes Section Notes 10/03/2023 Diverticulosis of large intestine without perforation or abscess without bleeding (ICD-10 - K57.30) 10/03/[address] scan, colon (ICD-10 - R93.3) 03/03/2024 Erosive esophagitis (ICD-10 - K22.10) Cut down the Metamucil and/or the Magnesium to see if that cuts down the BM frequency and trouble with the stool incontinence . Overall, Luli appears well. She seems to [...] future. 10/03/2023 Other hemorrhoids (ICD-10 - K64.8) 10/03/2023 [...] Insured Coverage Start Date Coverage End Date [facility] [address] [place] [phone] [id number] LULI FISHMAN Self - patient is the insured Medical (General) History Medical History History ICD Code NIDDM Hyperlipidemia Hypertension Pacemaker Arthritis Denies [place],CVA,Lung disease,renal disease Urinary incontinence-mild Hypothyroidism Tubular adenomas [...]
--- OUTSIDE RECORDS SUMMARY | 2024-09-21 12:58 | XMS_ITS | Clinical Summary ---
Author Organization [facility] Facility Address [address] [place] [address], [place] [address] Care Team Providers Care Bacteriologist Medical Name Role Phone Carmita Dietz CANAL BOAT OPERATOR-C Primary Care Provider + Allergies No [...] 1 (one) time each day Active Biotin 79115 MCG tablet dispersible Take by mouth Active [...] patient's age to complete this topic Insurance [facility] Care Teams Bacteriologist Medical Relationship Specialty Start Date End Date Carmita Dietz NP-C [address], [address] [place] [address] PCP - General Nurse Practitioner 07/18/22
--- OUTSIDE RECORDS SUMMARY | 2024-09-21 12:58 | XMS_ITS | Data Portability ---
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 ................ ................ .[id number].... ................ ................ ....>80 Phosphorus Clearance....... ................ ..............11 .[id number]....... ................ ................ .5 to 15 Tubular Reabsorption of Phosphorus...... ..80.75412396... ................ ................ .....82-97% Calcium/Creatini ne Clearance....... ................ ..[id number]... ................ ................ ...<0.01 C/W [facility] Low Ca/Creat clearance and TRP are c/w [facility]. REPEAT 24 hr urine (07/07): VOL= 980cc Calcium= 0.065 (07/07) Phos= 0.4375 creat= 0.98 (07/07) Creatinine Clearance....... ................ ................ .[id number] >80 Phosphorus Clearance....... ................ ................ [id number] 5 to 15 Tubular Reabsorption of Phosphorus...... ..81.92604879 82-97% Calcium/Creatini ne Clearance....... ................ .0.150642566 <0.01 C/W [facility] LAB SUMMARY: Ca= 10.7 (09/01/24 per pt); [...] magnesium , serum or plasma 2024 025 [email or web address] [address], [place], [address], 09/10/2024 10:13:21 renal function panel, serum 2024 025 [facility], [address], [place], [address], 07/10/2024 12:02:11 vitamin D, 25-hydrox y, total, serum 2024 025 [facility], [address], [place], [address], 07/10/2024 12:18:59 PTH (parathyr oid hormone), intact + calcium, serum or plasma 2024 025 [facility], [address], [place], [address], 06/16/2024 13:10:32 calcium, 24-hour urine 2024 025 [facility], [address], [place], [address], 07/10/2024 13:00:44 creatinin e, 24-hour urine 2024 025 [facility], [address], [place], [address], 07/10/2024 13:00:45 phosphoru s, 24-hour urine 2024 025 [facility], [address], [place], [address], 07/10/2024 13:00:48 volume, total, 24-hour urine 2024 025 [facility], [address], [place], [address], 06/16/2024 13:10:32 CASR gene full mutation analysis, blood or tissue 2024 025 [facility], [address], [place], [address], 06/30/2024 13:10:31 vitamin D, 25-hydrox y, total, serum 2019 021 [facility], [address], [place], [address], 02/02/2021 11:16:20 HbA1c (hemoglob in A1c), blood 2019 020 [facility], [address], [place], [address], 09/02/2020 13:55:20 CMP, serum or plasma 2019 021 [facility], [address], [place], [address], 09/02/2020 11:43:26 CMP, serum or plasma 2020 021 [facility], [address], [place], [address], 02/02/2021 11:26:12 HbA1c (hemoglob in A1c), blood 2020 021 [facility], [address], [place], [address], 02/02/2021 10:57:24 TSH, serum or plasma 2019 021 [facility], [address], [place], [address], 02/02/2021 11:26:16 T4, free, serum 2019 021 [facility], [address], [place], [address], 02/02/2021 11:26:14 HbA1c (hemoglob in A1c), blood 2018 019 [facility], [address], [place], [address], 06/12/2019 15:32:59 CMP, serum or plasma 2018 019 [facility], [address], [place], [address], 06/12/2019 16:09:37 TSH, serum or plasma 2018 [facility], [address], [place], [address], 06/12/2019 16:09:40 T4, free, serum 2018 [facility], [address], [place], [address], 06/12/2019 16:09:39 Referral None recorded. Procedures None recorded. Surgeries None recorded. Imaging None recorded. Medication Orders levothyro xine 75 mcg tablet 2020 021 [email or web address] #[id number], [address] [place], [address], 06/16/2024 11:33:34 Patient TargetsNo targets recorded. Patient Instructions Encounter Date Encounter Id Patient Instructions Last Modified By Organization Details Last Modified Time 03/27/2019 [id number] - Get labs done beginning in May [...] feet [email or web address] Not available 03/27/2019 11:29:50 04/01/2020 [id number] - Get labs done beginning in May [...] PCP. [email or web address] Not available 04/01/2020 09:43:27 04/05/2021 [id number] - Continue taking thyroid hormone every day [...] [email or web address] Not availabl e 04/05/2021 22:02:24 06/16/2024 [id number] - Continue taking thyroid hormone every day [...] 2024) [email or web address] Not available 06/16/2024 12:53:12 09/08/2024 [id number] - Continue taking thyroid hormone every day [...] vitam in D. Refer ence: [facility] Data Brief : No.59 July: Vitam in D Statu s: [place]ite [place] s: 2000- 2005 Not Available [facility] (Centralized Electronic Ordering - All Locations) Patient Can Go To The Location Of Their Choice, [id number] 03/23/2019 18:54:58 03/23/2003/23/2019 renal funct ion panel , serum glucose 84 mg/dL (70-99 ) Not Available [facility] (Centralized Electronic Ordering - All Locations) Patient Can Go To The Location Of Their Choice, [id number] 03/23/2019 19:05:49 03/23/2003/23/2019 renal funct ion panel , serum BUN 24 mg/dL (8-23) high Not Available [facility] (Centralized Electronic Ordering - All Locations) Patient Can Go To The Location Of Their Choice, [id number] 03/23/2019 19:05:49 03/23/20 19 03/23/2019 renal funct ion panel , serum creatinine 1.5 mg/dL (0.5-1 .0) high Not Available [facility] (Centralized Electronic Ordering - All Locations) Patient Can Go To The Location Of Their Choice, [id number] 03/23/2019 19:05:49 03/23/2003/23/2019 renal funct ion panel , serum sodium 141 mmol/ L (133-1 45) Not Available [facility] (Centralized Electronic Ordering - All Locations) Patient Can Go To The Location Of Their Choice, [id number] 03/23/2019 19:05:49 03/23/2003/23/2019 renal funct ion panel , serum potassium 4.9 mmol/ L (3.6-5 .2) Not Available [facility] (Centralized Electronic Ordering - All Locations) Patient Can Go To The Location Of Their Choice, [id number] 03/23/2019 19:05:49 03/23/2003/23/2019 renal funct ion panel , serum chloride 104 mmol/ L (98-10 7) Not Available [facility] (Centralized Electronic Ordering - All Locations) Patient Can Go To The Location Of Their Choice, [id number] 03/23/2019 19:05:49 03/23/2003/23/2019 renal funct ion panel , serum bicarbonate 25 mmol/ L (22-29 ) Not Available [facility] (Centralized Electronic Ordering - All Locations) Patient Can Go To The Location Of Their Choice, [id number] 03/23/2019 19:05:49 03/23/2003/23/2019 renal funct ion panel , serum anion gap 12 (4-17) Not Available [facility] (Centralized Electronic Ordering - All Locations) Patient Can Go To The Location Of Their Choice, [id number] 03/23/2019 19:05:49 03/23/2003/23/2019 renal funct ion panel , serum albumin 4.2 gm/dL (3.4-4 .8) Not Available [facility] (Centralized Electronic Ordering - All Locations) Patient Can Go To The Location Of Their Choice, [id number] 03/23/2019 19:05:49 03/23/2003/23/2019 renal funct ion panel , serum calcium 10.9 mg/dL (8.6-1 0.5) high Not Available [facility] (Centralized Electronic Ordering - All Locations) Patient Can Go To The Location Of Their Choice, [id number] 03/23/2019 19:05:49 03/23/2003/23/2019 renal funct ion panel , serum phosphorus 3.2 mg/dL (2.5-4 .5) Not Available [facility] (Centralized Electronic Ordering - All Locations) Patient Can Go To The Location Of Their Choice, [id number] 03/23/2019 19:05:49 03/23/2003/23/2019 renal funct ion panel [...] Go To The Location Of Their Choice, [id number] 03/23/2019 19:05:49 03/23/2003/23/2019 renal funct ion panel [...] Go To The Location Of Their Choice, [id number] 03/23/2019 19:05:49 03/23/2003/27/2019 TSH, serum or plasm a TSH 1.05 mIU/m L (0.40- 4.00) Not Available [facility] (Centralized Electronic Ordering - All Locations) Patient Can Go To The Location Of Their Choice, [id number] 03/27/2019 20:19:23 06/12/1901 0606/12/2019 HbA1c (hemo globi n A1c), blood hemoglobin A1C 6.3 % 4.3-5. 8 high Not Available [facility] (Outpatient) [address] [place], [address], 06/12/2019 15:32:59 06/12/19 20 06/12/2019 lipid panel [...] philly arnaud, sex and age. Not Available [facility] (Outpatient) [address] [place], [address], 06/12/2019 15:58:07 06/12/19 20 06/12/2019 lipid panel , blood cholesterol 176 mg/dL 0-240 Not Available [facility] (Outpatient) [address] [place], [address], 06/12/2019 15:58:07 06/12/19 20 06/12/2019 lipid panel , blood triglyceride s 199 mg/dL 30-160 high Not Available [facility] (Outpatient) [address] [place], [address], 06/12/2019 15:58:07 06/12/19 20 06/12/2019 lipid panel , blood LDL 98 mg/dL 50-129 LDL level s in terms of risk for coron amol heart disea se: <100 mg/dL : Optim al 100-1 29 mg/dL : Near or above optim al 130-1 59 mg/dL : Alyse jacobo high 160-1 89 mg/dL : High >190 mg/dL : Very High Not Available [facility] (Outpatient) [address] [place], [address], 06/12/2019 15:58:07 06/12/19 20 06/12/2019 lipid panel , blood cardiac risk ratio 4.6 3.3-4. 4 high Not Available [facility] (Outpatient) [address] [place], [address], 06/12/2019 15:58:07 06/12/19 20 06/12/2019 micro album in/cr eatin ine, mass ratio , urine urine microalbumin <1.2 mg/dL 0-2.3 Not Available [facility] (Outpatient) [address] [place], [address], 06/12/2019 16:00:19 06/12/19 20 06/12/2019 micro album in/cr eatin ine, mass ratio , urine urine creatinine 58 mg/dL Not Available [facility] (Outpatient) [address] [place], [address], 06/12/2019 16:00:19 06/12/19 20 06/12/2019 micro album in/cr eatin ine, mass ratio , urine microalb/cre ratio NOT CALCUL ATED mg/g_ cre 0-20 due to Micro album in <1.2 Not Available [facility] (Outpatient) [address] [place], [address], 06/12/2019 16:00:19 06/12/19 20 06/12/2019 CMP, serum or plasm a sodium 139 mmol/ L 133-14 6 Not Available [facility] (Outpatient) [address] [place], [address], 06/12/2019 16:09:37 06/12/19 20 06/12/2019 CMP, serum or plasm a potassium 4.8 mmol/ L 3.3-5. 1 Not Available [facility] (Outpatient) [address] [place], [address], 06/12/2019 16:09:37 06/12/19 20 06/12/2019 CMP, serum or plasm a chloride 103 mmol/ L 96-108 Not Available [facility] (Outpatient) [address] [place], [address], 06/12/2019 16:09:37 06/12/19 20 06/12/2019 CMP, serum or plasm a CO2 23 mmol/ L 21-35 Not Available [facility] (Outpatient) [address] [place], [address], 06/12/2019 16:09:37 06/12/19 20 06/12/2019 CMP, serum or plasm a BUN 21 mg/dL 6-19 high Not Available [facility] (Outpatient) [address] [place], [address], 06/12/2019 16:09:37 06/12/19 20 06/12/2019 CMP, serum or plasm a creatinine 1.20 mg/dL 0.5-1. 5 Not Available [facility] (Outpatient) [address] [place], [address], 06/12/2019 16:09:37 06/12/19 20 06/12/2019 CMP, serum or plasm a glucose 116 mg/dL 70-99 high Not Available [facility] (Outpatient) [address] [place], [address], 06/12/2019 16:09:37 06/12/19 20 06/12/2019 CMP, serum or plasm a albumin 4.4 g/dL 3.9-4. 8 Not Available [facility] (Outpatient) [address] [place], [address], 06/12/2019 16:09:37 06/12/19 20 06/12/2019 CMP, serum or plasm a total protein 7.7 g/dL 6.5-8. 0 Not Available [facility] (Outpatient) [address] [place], [address], 06/12/2019 16:09:37 06/12/19 20 06/12/2019 CMP, serum or plasm a calcium 10.9 mg/dL 8.4-10 .3 high Not Available [facility] (Outpatient) [address] [place] [address], [address], 06/12/2019 16:09:37 06/12/19 20 06/12/2019 CMP, serum or plasm a alkaline phosphatase 61 U/L 39-117 Not Available [facility] (Outpatient) [address] [place] [address], [address], 06/12/2019 16:09:37 06/12/19 20 06/12/2019 CMP, serum or plasm a total bilirubin 0.2 mg/dL 0.0-1. 2 Not Available [facility] (Outpatient) [address] [place] [address], [address], 06/12/2019 16:09:37 06/12/19 20 06/12/2019 CMP, serum or plasm a AST 22 U/L 0-37 Not Available [facility] (Outpatient) [address] [place], [address], 06/12/2019 16:09:37 06/12/19 20 06/12/2019 CMP, serum or plasm a ALT 9 U/L 0-40 Not Available [facility] (Outpatient) [address] [place] [address], [address], 06/12/2019 16:09:37 06/12/19 20 06/12/2019 CMP, serum or plasm a globulin 3.3 g/dL 1-4.8 Not Available [facility] (Outpatient) [address] [place] [address], [address], 06/12/2019 16:09:37 06/12/19 20 06/12/2019 CMP, serum or plasm a eGFR 44 mL/mi n/1.7 3m2 >59 low If patie nt is black , multi ply resul t by 1.159 . Estim ated glome rular filtr ation rate calcu lated using the CKD-E PI equat ion. Not Available [facility] (Outpatient) [address] [place], [address], 06/12/2019 16:09:37 06/12/19 20 06/12/2019 CMP, serum or plasm a anion gap 18 mmol/ L 10-20 Not Available [facility] (Outpatient) [address] [place], [address], 06/12/2019 16:09:37 06/12/19 20 06/12/2019 T4, free, serum free T4 1.4 NG/dL 0.9-1. 7 Not Available [facility] (Outpatient) [address] [place], [address], 06/12/2019 16:09:39 06/12/19 20 06/12/2019 TSH, serum or plasm a TSH 1.12 uIU/m L 0.27-4 .20 Not Available [facility] (Outpatient) [address] [place], [address], 06/12/2019 16:09:40 01/21/20 20 01/21/2020 HbA1c (hemo globi n A1c), blood hemoglobin A1C 6.1 % 4.3-5. 8 high Not Available [facility] (Outpatient) [address] [place], [address], 01/21/2020 11:26:48 01/21/20 20 01/21/2020 lipid panel [...] hormo arnaud, sex and age. Not Available [facility] (Outpatient) [address] [place] [address], [address], 01/21/2020 11:36:33 01/21/20 20 01/21/2020 lipid panel , blood cholesterol 163 mg/dL 0-240 Not Available [facility] (Outpatient) [address] [place], [address], 01/21/2020 11:36:33 01/21/20 20 01/21/2020 lipid panel , blood triglyceride s 289 mg/dL 30-160 high Not Available [facility] (Outpatient) [address] [place], [address], 01/21/2020 11:36:33 01/21/20 20 01/21/2020 lipid panel , blood LDL 69 mg/dL 50-129 LDL level s in terms of risk for coron amol heart disea se: <100 mg/dL : Optim al 100-1 29 mg/dL : Near or above optim al 130-1 59 mg/dL : Alyse jacobo high 160-1 89 mg/dL : High >190 mg/dL : Very High Not Available [facility] (Outpatient) [address] [place], [address], 01/21/2020 11:36:33 01/21/20 20 01/21/2020 lipid panel , blood cardiac risk ratio 4.5 3.3-4. 4 high Not Available [facility] (Outpatient) [address] [place], [address], 01/21/2020 11:36:33 01/21/2001/21/2020 vitam in D, 25-hy droxy , total , serum 25 oh vit D (total) 37 NG/mL 30-60 Not Available [facility] (Outpatient) [address] [place], [address], 01/21/2020 11:50:58 01/21/2001/21/2020 CMP, serum or plasm a sodium 137 mmol/ L 133-14 6 Not Available [facility] (Outpatient) [address] [place], [address], 01/21/2020 11:51:29 01/21/2001/21/2020 CMP, serum or plasm a potassium 5.0 mmol/ L 3.3-5. 1 Not Available [facility] (Outpatient) [address] [place], [address], 01/21/2020 11:51:29 01/21/2001/21/2020 CMP, serum or plasm a chloride 105 mmol/ L 96-108 Not Available [facility] (Outpatient) [address] [place], [address], 01/21/2020 11:51:29 01/21/2001/21/2020 CMP, serum or plasm a CO2 21 mmol/ L 21-35 Not Available [facility] (Outpatient) [address] [place], [address], 01/21/2020 11:51:29 01/21/2001/21/2020 CMP, serum or plasm a BUN 27 mg/dL 6-19 high Not Available [facility] (Outpatient) [address] [place], [address], 01/21/2020 11:51:29 01/21/2001/21/2020 CMP, serum or plasm a creatinine 1.50 mg/dL 0.5-1. 5 Not Available [facility] (Outpatient) [address] [place], [address], 01/21/2020 11:51:29 01/21/2001/21/2020 CMP, serum or plasm a glucose 129 mg/dL 70-99 high Not Available [facility] (Outpatient) [address] [place], [address], 01/21/2020 11:51:29 01/21/2001/21/2020 CMP, serum or plasm a albumin 4.3 g/dL 3.9-4. 8 Not Available [facility] (Outpatient) [address] [place], [address], 01/21/2020 11:51:29 01/21/20 20 01/21/2020 CMP, serum or plasm a total protein 7.3 g/dL 6.5-8. 0 Not Available [facility] (Outpatient) [address] [place], [address], 01/21/2020 11:51:29 01/21/2001/21/2020 CMP, serum or plasm a calcium 11.2 mg/dL 8.4-10 .3 high Not Available [facility] (Outpatient) [address] [place], [address], 01/21/2020 11:51:29 01/21/2001/21/2020 CMP, serum or plasm a alkaline phosphatase 48 U/L 39-117 Not Available [facility] (Outpatient) [address] [place], [address], 01/21/2020 11:51:29 01/21/20 20 01/21/2020 CMP, serum or plasm a total bilirubin 0.3 mg/dL 0.0-1. 2 Not Available [facility] (Outpatient) [address] [place], [address], 01/21/2020 11:51:29 01/21/2001/21/2020 CMP, serum or plasm a AST 15 U/L 0-37 Not Available [facility] (Outpatient) [address] [place], [address], 01/21/2020 11:51:29 01/21/2001/21/2020 CMP, serum or plasm a ALT 6 U/L 0-40 Not Available [facility] (Outpatient) [address] [place], [address], 01/21/2020 11:51:29 01/21/2001/21/2020 CMP, serum or plasm a globulin 3.0 g/dL 1-4.8 Not Available [facility] (Outpatient) [address] [place], [address], 01/21/2020 11:51:29 01/21/20 20 01/21/2020 CMP, serum or plasm a eGFR 33 mL/mi n/1.7 3m2 >59 low Estim ated glome rular filtr ation rate calcu lated using the CKD-E PI equat ion. Not Available [facility] (Outpatient) [address] [place], [address], 01/21/2020 11:51:29 01/21/20 20 01/21/2020 CMP, serum or plasm a anion gap 16 mmol/ L 10- Not Available [facility] (Outpatient) [address] [place], [address], 01/21/2020 11:51:29 01/21/20 20 01/21/2020 T4, free, serum free T4 1.1 NG/dL 0.9-1. 7 Not Available [facility] (Outpatient) [address] [place], [address], 01/21/2020 11:51:31 01/21/20 20 01/21/2020 TSH, serum or plasm a TSH 1.88 uIU/m L 0.27-4 .20 Not Available [facility] (Outpatient) [address] [place], [address], 01/21/2020 11:51:33 01/21/20 20 01/21/2020 micro album in/cr eatin ine, mass ratio , urine urine microalbumin <1.2 mg/dL 0-2.3 Not Available [facility] (Outpatient) [address] [place], [address], 01/21/2020 16:09:45 01/21/20 20 01/21/2020 micro album in/cr eatin ine, mass ratio , urine urine creatinine 83 mg/dL Not Available [facility] (Outpatient) [address] [place], [address], 01/21/2020 16:09:45 01/21/20 20 01/21/2020 micro album in/cr eatin ine, mass ratio , urine microalb/cre ratio NOT CALCUL ATED mg/g_ cre 0-20 due to Micro album in <1.2 Not Available [facility] (Outpatient) [address] [place], [address], 01/21/2020 16:09:45 09/03/19 21 09/02/2020 CMP, serum or plasm a sodium 139 mmol/ L 133-14 6 Not Available [facility] (Outpatient) [address] [place], [address], 09/02/2020 11:43:26 09/03/19 21 09/02/2020 CMP, serum or plasm a potassium 5.3 mmol/ L 3.3-5. 1 high Not Available [facility] (Outpatient) [address] [place], [address], 09/02/2020 11:43:26 09/03/19 21 09/02/2020 CMP, serum or plasm a chloride 106 mmol/ L 96-108 Not Available [facility] (Outpatient) [address] [place], [address], 09/02/2020 11:43:26 09/03/19 21 09/02/2020 CMP, serum or plasm a CO2 23 mmol/ L 21-35 Not Available [facility] (Outpatient) [address] [place], [address], 09/02/2020 11:43:26 09/03/19 21 09/02/2020 CMP, serum or plasm a BUN 26 mg/dL 6-19 high Not Available [facility] (Outpatient) [address] [place], [address], 09/02/2020 11:43:26 09/03/19 21 09/02/2020 CMP, serum or plasm a creatinine 1.40 mg/dL 0.5-1. 5 Not Available [facility] (Outpatient) [address] [place], [address], 09/02/2020 11:43:26 09/03/19 21 09/02/2020 CMP, serum or plasm a glucose 114 mg/dL 70-99 high Not Available [facility] (Outpatient) [address] [place], [address], 09/02/2020 11:43:26 09/03/19 21 09/02/2020 CMP, serum or plasm a albumin 4.3 g/dL 3.9-4. 8 Not Available [facility] (Outpatient) [address] [place], [address], 09/02/2020 11:43:26 09/03/19 21 09/02/2020 CMP, serum or plasm a total protein 7.6 g/dL 6.5-8. 0 Not Available [facility] (Outpatient) [address] [place], [address], 09/02/2020 11:43:26 09/03/19 21 09/02/2020 CMP, serum or plasm a calcium 10.7 mg/dL 8.4-10 .3 high Not Available [facility] (Outpatient) [address] [place], [address], 09/02/2020 11:43:26 09/03/19 21 09/02/2020 CMP, serum or plasm a alkaline phosphatase 56 U/L 39-117 Not Available [facility] (Outpatient) [address] [place], [address], 09/02/2020 11:43:26 09/03/19 21 09/02/2020 CMP, serum or plasm a total bilirubin 0.2 mg/dL 0.0-1. 2 Not Available [facility] (Outpatient) [address] [place], [address], 09/02/2020 11:43:26 09/03/19 21 09/02/2020 CMP, serum or plasm a AST 16 U/L 0-37 Not Available [facility] (Outpatient) [address] [place] [address], [address], 09/02/2020 11:43:26 09/03/19 21 09/02/2020 CMP, serum or plasm a ALT 7 U/L 0-40 Not Available [facility] (Outpatient) [address] [place], [address], 09/02/2020 11:43:26 09/03/19 21 09/02/2020 CMP, serum or plasm a globulin 3.3 g/dL 1-4.8 Not Available [facility] (Outpatient) [address] [place] [address], [address], 09/02/2020 11:43:26 09/03/19 21 09/02/2020 CMP, serum or plasm a eGFR 36 mL/mi n/1.7 3m2 >59 low Estim ated glome rular filtr ation rate calcu lated using the CKD-E PI equat ion. Not Available [facility] (Outpatient) [address] [place] [address], [address], 09/02/2020 11:43:26 09/03/19 21 09/02/2020 CMP, serum or plasm a anion gap 15 mmol/ L 10-20 Not Available [facility] (Outpatient) [address] [place] [address], [address], 09/02/2020 11:43:26 09/03/19 21 09/02/2020 lipid panel [...] philly lares, sex and age. Not Available [facility] (Outpatient) [address] [place], [address], 09/02/2020 12:00:24 09/03/19 21 09/02/2020 lipid panel , blood cholesterol 139 mg/dL 0-240 Not Available [facility] (Outpatient) [address] [place], [address], 09/02/2020 12:00:24 09/03/19 21 09/02/2020 lipid panel , blood triglyceride s 164 mg/dL 30-160 high Not Available [facility] (Outpatient) [address] [place], [address], 09/02/2020 12:00:24 09/03/19 21 09/02/2020 lipid panel , blood LDL 68 mg/dL 50-129 LDL level s in terms of risk for coron amol heart disea se: <100 mg/dL : Optim al 100-1 29 mg/dL : Near or above optim al 130-1 59 mg/dL : Borde rline high 160-1 89 mg/dL : High >190 mg/dL : Very High Not Available [facility] (Outpatient) [address] [place], [address], 09/02/2020 12:00:24 09/03/19 21 09/02/2020 lipid panel , blood cardiac risk ratio 3.7 3.3-4. 4 Not Available [facility] (Outpatient) [address] [place], [address], 09/02/2020 12:00:24 09/03/1909/02/2020 HbA1c (hemo globi n A1c), blood hemoglobin A1C 6.2 % 4.3-5. 8 high Not Available [facility] (Outpatient) [address] [place], [address], 09/02/2020 13:55:19 09/07/19 21 09/06/2020 micro album in/cr eatin ine, mass ratio , urine urine microalbumin <1.2 mg/dL 0-2.3 Not Available [facility] (Outpatient) [address] [place], [address], 09/06/2020 18:43:58 09/07/19 21 09/06/2020 micro album in/cr eatin ine, mass ratio , urine urine creatinine 34 mg/dL Not Available [facility] (Outpatient) [address] [place], [address], 09/06/2020 18:43:58 09/07/19 21 09/06/2020 micro album in/cr eatin ine, mass ratio , urine microalb/cre ratio NOT CALCUL ATED mg/g_ cre 0-20 due to Micro album in <1.2 Not Available [facility] (Outpatient) [address] [place], [address], 09/06/2020 18:43:58 02/03/20 21 02/02/2021 HEMOG LOBIN A1C hemoglobin A1C 6.1 % 4.3-5. 8 high Not Available [facility] (Outpatient) [address] [place], [address], 02/02/2021 10:57:24 02/03/20 21 02/02/2021 LIPID PANEL [...] philly arnaud, sex and age. Not Available [facility] ([facility]patient) [address] [place], [address], 02/02/2021 11:05:04 02/03/20 21 02/02/2021 LIPID PANEL cholesterol 159 mg/dL 0-240 Not Available [facility] (Outpatient) [address] [place], [address], 02/02/2021 11:05:04 02/03/20 21 02/02/2021 LIPID PANEL triglyceride s 247 mg/dL 30-160 high Not Available [facility] ([facility]) [address] [place], [address], 02/02/2021 11:05:04 02/03/20 21 02/02/2021 LIPID PANEL LDL 74 mg/dL 50-129 LDL level s in terms of risk for coron amol heart disea se: <100 mg/dL : Optim al 100-1 29 mg/dL : Near or above optim al 130-1 59 mg/dL : Borde rline high 160-1 89 mg/dL : High >190 mg/dL : Very High Not Available [facility] (Outpatient) [address] [place], [address], 02/02/2021 11:05:04 02/03/20 21 02/02/2021 LIPID PANEL cardiac risk ratio 4.4 3.3-4. 4 Not Available [facility] ([facility]) [address] [place], [address], 02/02/2021 11:05:04 02/03/20 21 02/02/2021 25-OH VITAM IN D 25 oh vit D (total) 34 NG/mL 30-60 Not Available [facility] ([facility]) [address] [place], [address], 02/02/2021 11:16:20 02/03/20 21 02/02/2021 COMPR EHENS FORTINO METAB OLIC PANEL sodium 138 mmol/ L 133-14 6 Not Available [facility] (Out[facility]) [address] [place], [address], 02/02/2021 11:26:12 02/03/20 21 02/02/2021 COMPR EHENS FORTINO METAB OLIC PANEL potassium 5.2 mmol/ L 3.3-5. 1 high Not Available [facility] ([facility]) [address] [place], [address], 02/02/2021 11:26:12 02/03/20 21 02/02/2021 COMPR EHENS FORTINO METAB OLIC PANEL chloride 107 mmol/ L 96-108 Not Available [facility] ([facility]) [address] [place], [address], 02/02/2021 11:26:12 02/03/20 21 02/02/2021 COMPR EHENS FORTINO METAB OLIC PANEL CO2 21 mmol/ L 21-35 Not Available [facility] ([facility]) [address] [place], [address], 02/02/2021 11:26:12 02/03/20 21 02/02/2021 COMPR EHENS FORTINO METAB OLIC PANEL BUN 28 mg/dL 6-19 high Not Available [facility] ([facility]) [address] [place], [address], 02/02/2021 11:26:12 02/03/20 21 02/02/2021 COMPR EHENS FORTINO METAB OLIC PANEL creatinine 1.50 mg/dL 0.5-1. 5 Not Available [facility] ([facility]) [address] [place] [address], [address], 02/02/2021 11:26:12 02/03/20 21 02/02/2021 COMPR EHENS FORTINO METAB OLIC PANEL glucose 117 mg/dL 70-99 high Not Available [facility]) [address] [place] [address], [address], 02/02/2021 11:26:12 02/03/20 21 02/02/2021 COMPR EHENS FORTINO METAB OLIC PANEL albumin 4.3 g/dL 3.9-4. 8 Not Available [facility] ([facility]) [address] [place], [address], 02/02/2021 11:26:12 02/03/20 21 02/02/2021 COMPR EHENS FORTINO METAB OLIC PANEL total protein 7.2 g/dL 6.5-8. 0 Not Available [facility] ([facility]) [address] [place], [address], 02/02/2021 11:26:12 02/03/20 21 02/02/2021 COMPR EHENS FORTINO METAB OLIC PANEL calcium 11.1 mg/dL 8.4-10 .3 high Not Available [facility] ([facility]) [address] [place], [address], 02/02/2021 11:26:12 02/03/20 21 02/02/2021 COMPR EHENS FORTINO METAB OLIC PANEL alkaline phosphatase 56 U/L 39-117 Not Available [facility] (Outpatient) [address] [place], [address], 02/02/2021 11:26:12 02/03/20 21 02/02/2021 COMPR EHENS FORTINO METAB OLIC PANEL total bilirubin 0.3 mg/dL 0.0-1. 2 Not Available [facility] (Out[facility]) [address] [place], [address], 02/02/2021 11:26:12 02/03/20 21 02/02/2021 COMPR EHENS FORTINO METAB OLIC PANEL AST 14 U/L 0-37 Not Available [facility] (Out[facility]) [address] [place], [address], 02/02/2021 11:26:12 02/03/20 21 02/02/2021 COMPR EHENS FORTINO METAB OLIC PANEL ALT 8 U/L 0-40 Not Available [facility] ([facility]) [address] [place], [address], 02/02/2021 11:26:12 02/03/20 21 02/02/2021 COMPR EHENS FORTINO METAB OLIC PANEL globulin 2.9 g/dL 1-4.8 Not Available [facility] ([facility]) [address] [place], [address], 02/02/2021 11:26:12 02/03/20 21 02/02/2021 COMPR EHENS FORTINO METAB OLIC PANEL eGFR 33 mL/mi n/1.7 3m2 >59 low Estim ated glome rular filtr ation rate calcu lated using the CKD-E PI equat ion. Not Available [facility] ([facility]) [address] [place], [address], 02/02/2021 11:26:12 02/03/20 21 02/02/2021 COMPR EHENS FORTINO METAB OLIC PANEL anion gap 15 mmol/ L 10-20 Not Available [facility] ([facility]) [address] [place], [address], 02/02/2021 11:26:12 02/03/20 21 02/02/2021 FREE T4 free T4 1.4 NG/dL 0.9-1. 7 Not Available [facility] ([facility]) [address] [place], [address], 02/02/2021 11:26:14 02/03/20 21 02/02/2021 TSH TSH 0.91 uIU/m L 0.27-4 .20 Not Available [facility] ([facility]) [address] [place], [address], 02/02/2021 11:26:15 02/03/20 21 02/02/2021 MICRO ALBUM IN/CR EATIN INE RATIO , RANDO M URINE urine microalbumin <1.2 mg/dL 0-2.3 Not Available [facility] (Outpatient) [address] [place] [address], [address], 02/02/2021 17:50:10 02/03/20 21 02/02/2021 MICRO ALBUM IN/CR EATIN INE RATIO , RANDO M URINE urine creatinine 97 mg/dL Not Available [facility] (Out[facility]) [address] [place], [address], 02/02/2021 17:50:10 02/03/20 21 02/02/2021 MICRO ALBUM IN/CR EATIN INE RATIO , RANDO M URINE microalb/cre ratio NOT CALCUL ATED mg/g_ cre 0-20 due to Micro album in <1.2 Not Available [facility] (Out[facility]) [address] [place], [address], 02/02/2021 17:50:10 07/09/19 25 07/10/2024 TIMED URINE DATA collection data 24 Not Available [facility] ([facility]) [address] [place], [address], 07/10/2024 11:40:28 07/09/19 25 07/10/2024 TIMED URINE DATA total volume 1750 mL Not Available [facility] (Outpatient) [address] [place], [address], 07/10/2024 11:40:28 07/09/19 25 07/10/2024 CALCI UM, 24 HOUR URINE urine calcium 3.7 mg/dL Not Available [facility] ([facility]) [address] [place], [address], 07/10/2024 13:00:44 07/09/19 25 07/10/2024 CALCI UM, 24 HOUR URINE calcium output 65 mg/to tal_o utput 100-30 0 low Not Available [facility] ([facility]) [address] [place], [address], 07/10/2024 13:00:44 07/09/19 25 07/10/2024 CREAT ININE , 24 HR URINE urine creatinine 56 mg/dL Not Available [facility] (Outpatient) [address] [place], [address], 07/10/2024 13:00:45 07/09/19 25 07/10/2024 CREAT ININE , 24 HR URINE creatinine output 980 mg/to tal_o utput 600-18 00 Not Available [facility] (Out[facility]) [address] [place], [address], 07/10/2024 13:00:45 07/09/19 25 07/10/2024 PHOSP HORUS , 24 HR URINE urine phosphorus 25.0 mg/dL Not Available [facility] (Outpatient) [address] [place], [address], 07/10/2024 13:00:47 07/09/19 25 07/10/2024 PHOSP HORUS , 24 HR URINE phosphorus output 437.5 mg/to tal_o utput 400-13 00 Not Available [facility] ([facility]) [address] [place], [address], 07/10/2024 13:00:47 07/10/19 25 07/10/2024 PARAT YURI BURGOS (PTH) parathyroid hormone 115 pg/mL 15-65 high Not Available [facility] ([facility]) [address] [place], [address], 07/10/2024 12:02:00 07/10/19 25 07/10/2024 RENAL PANEL sodium 139 mmol/ L 133-14 6 Not Available [facility] ([facility]) [address] [place], [address], 07/10/2024 12:02:10 07/10/19 25 07/10/2024 RENAL PANEL potassium 4.3 mmol/ L 3.3-5. 1 Not Available [facility] ([facility]) [address] [place], [address], 07/10/2024 12:02:10 07/10/19 25 07/10/2024 RENAL PANEL chloride 104 mmol/ L 96-108 Not Available [facility] ([facility]) [address] [place], [address], 07/10/2024 12:02:10 07/10/19 25 07/10/2024 RENAL PANEL CO2 24 mmol/ L 21-35 Not Available [facility] ([facility]) [address] [place], [address], 07/10/2024 12:02:10 07/10/19 25 07/10/2024 RENAL PANEL glucose 124 mg/dL 70-99 high Not Available [facility] ([facility]) [address] [place], [address], 07/10/2024 12:02:10 07/10/19 25 07/10/2024 RENAL PANEL BUN 20 mg/dL 6-19 high Not Available [facility] ([facility]) [address] [place], [address], 07/10/2024 12:02:10 07/10/19 25 07/10/2024 RENAL PANEL creatinine 1.30 mg/dL 0.5-1. 5 Not Available [facility] ([facility]) [address] [place], [address], 07/10/2024 12:02:10 07/10/19 25 07/10/2024 RENAL PANEL calcium 10.5 mg/dL 8.4-10 .3 high Not Available [facility] ([facility]) [address] [place], [address], 07/10/2024 12:02:10 07/10/19 25 07/10/2024 RENAL PANEL phosphorus 3.2 mg/dL 2.7-4. 5 Not Available [facility] ([facility]) [address] [place], [address], 07/10/2024 12:02:10 07/10/19 25 07/10/2024 RENAL PANEL albumin 3.9 g/dL 3.9-4. 8 Not Available [facility] ([facility]) [address] [place], [address], 07/10/2024 12:02:10 07/10/19 25 07/10/2024 RENAL PANEL eGFR 42 mL/mi n/1.7 3m2 >59 low Estim ated glome rular filtr ation rate calcu lated using the CKD-E PI refit equat ion. Not Available [facility] ([facility]) [address] [place], [address], 07/10/2024 12:02:10 07/10/19 25 07/10/2024 RENAL PANEL anion gap 15 mmol/ L 10-20 Not Available [facility] ([facility]) [address] [place], [address], 07/10/2024 12:02:10 07/10/19 25 07/10/2024 25-OH VITAM IN D 25 oh vit D (total) 30 NG/mL 30-60 Not Available [facility] ([facility]) [address] [place], [address], 07/10/2024 12:18:58 07/10/19 25 07/21/2024 CASR GENE [...] t avail able at: [email or web address] :[email or web address] /Repo rts/C [email or web address] shx Metho d SEE [...] eview s.org ). An onlin e resea [facility] oppor tunit y [place] Genom eConn ect (enrique mecon nect. org), a proje ct of ClinG en, is avail able for the recip ient of this claude ic test. This patie nt babatunde try colle cts de-id entif ied claude ic and healt h infor matio n to advan ce the knowl edge of claude ic varia nts. [facility] is a colla borat or [...] inter preta tion of these resul ts, [facility] atory claude ic couns elors can be conta cted at [phone]. Techn ical Limit ation s Next gener [...] the prese nce of donor DNA. Call [facility] at[facility] es for instr [...] e laverne cteri stics deter mined by [facility] in a mary r consi stent with CLIA requmerrick villeda ts. This test has not been clear ed or appro javi by the U.S. Food and Drug Admin istra tion. Relea sed By James strong, Ph.D. Not Available [facility] ([facility]) [address] [place] [address], [address], 07/21/2024 11:13:53 03/27/20 19 10/02/2018 MAMMO , [...] Details Recorded Time Disorder of thyroid gland 50718549 Active 2017 [place], [facility] 8 08:28:01 Disorder of vitamin D 348670748 Active 2017 [place] Walker, [facility] 8 08:28:14 Hypercalc emia 37719267 Active 2017 [place] Walker, [facility] 8 08:28:28 Type 2 diabetes mellitus without complicat ion 925207044 Active 2017 [place], [facility] 8 08:29:28 Chronic kidney disease stage 3 314494942 Active 08/2020 [facility] 10:07:59 Chronic kidney disease due to type 2 diabetes mellitus 818912391705 Active 2020 [facility] 02/02/2021 GFR 33 Milana Rowland [facility] 1 09:47:09 Morbid obesity 144466072 Active 2021 BMI > or = 35 plus diagnosis of diabetes. Brenda Reddy[place] [facility], [facility] 2 10:11:12 Problem Notes None recorded. Procedures Surgical History Date Name Laterality Status Provider Name and Address Organization Details Recorded Time 8 Unlisted px accessory sinus completed Alla Emerson [facility] 03/27/2019 10:35:47 Imaging Results Imaging [...] Name and Address Organization Details Recorded Time 870108 Product containin g angiotens in-conver ting enzyme inhibitor (product) medicatio n Not available Not available Not available 06/16/2024 44221 009 SNOMED throa t swell ing Sangeetha Ceja [place] [facility], [facility] 5 11:32:28 Medications Name Sig [...] Updated DateTime 9 158.12 cm 38 kg/m2 15405.5 2 g 64 /min 122 mm[Hg] 64 mm[Hg] Alla Emerson [facility] 9 10:38:49 Date Recorded Body weight Body mass index (BMI) Body height Heart rate Systolic blood pressure Diastolic blood pressure Provider Name and Address Organization Details Last Updated DateTime 1 91026.8 1 g 36.8 kg/m2 158.12 cm 86 /min 118 mm[Hg] 72 mm[Hg] Sri Leahy RN [facility] 1 09:57:09 Date Recorded Body weight Body mass index (BMI) Body height Heart rate Systolic blood pressure Diastolic blood pressure Provider Name and Address Organization Details Last Updated DateTime 5 27471.9 1 g 36.7 kg/m2 157.48 cm 92 /min 129 mm[Hg] 68 mm[Hg] Sangeetha Ceja LPN [facility] 5 11:42:20 Date Recorded Body height Body mass index (BMI) Body weight Heart rate Systolic blood pressure Diastolic blood pressure Provider Name and Address Organization Details Last Updated DateTime 5 157.48 cm 37.6 kg/m2 89238.5 9 g 89 /min 124 mm[Hg] 75 mm[Hg] Sangeetha Ceja LPN [facility] 5 14:48:27 Social History Question Answer Notes LastModified by Organizat ion Details LastModified Time Tobacco Smoking Status [facility]2012 08:23:45 Which Illicit Or Recreational Drugs Have You Used? Denies Information not available 12/12/2012 Live Alone Or With Others? With Others Spouse And Son That Comes And Goes Information not available 12/12/2012 Marital Status Informati on not available 12/12/2012 What Was The Date Of Your Most Recent Tobacco Screening? 03/28/2018 Information not available 12/03/2018 How Many Children Do You Have? 5 [email or web address] Information not available 12/12/2012 Sex: Unknown Functional Status Question Answer Note LastModified by Organizat ion Details LastModified Time Do you use any illicit or recreational drugs? No Information not available 04/05/2021 Do you or have you ever used any other forms of tobacco or nicotine? No Information not available 04/05/2021 What is your level of alcohol consumption? 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 Family History Relationship Description Onset Age of this Age Resolved Age Notes LastModified by Organization Details LastModified Time Son Malignant neoplasm of prostate 07/2019 [email or web address] Not available 2019 08:56:16 Notes:Father-does not know h x Mother- age 95- arthirits HTN, thyroid problems, [place] in 60's no siblings MGM- breast cancer MGF- alzheimer's, diabetes, ?RA Mat Aunt- early alzheimer's in 90's and stroke Daughter T1DM Son Afib 03/31: Grandbabies are 10 years old. Magalie is about the same. 04/01: Magalie on pump again; Grands are 11 years old. school from home. 2 Grandsons (one same age as girls) school QOS. 04/02: Lynne?sister are 12 grandsons are 16 - has truck in pieces hoping to build Medical History Condition Response Diabetes Type II Y Pacemaker Y Heart Disease Y Hypertension Y Gynecological HistoryNo gynecological history recorded. Obstetrics History GPAL:G 0 P 0 0 0 0 Immunizations Vaccine Type Date Status Note Provider Marc barth and Address Organization Details Recorded Time influenza, unspecified formulation 3 completed Jolie Lopez RN [facility] 03/05/2013 10:39:33 Influenza, split virus, quadrivalent, preservative 0 completed Gayle Aguila LPN null, [facility] 04/01/2020 08:57:48 COVID-19, mRNA, LNP-S, PF, 30 mcg/0.3 mL dose 1 completed Sri Leahy RN null, [facility] 04/05/2021 09:50:59 COVID-19, mRNA, LNP-S, PF, 30 mcg/0.3 mL dose 1 completed Sri Leahy RN null, [facility] 04/05/2021 09:51:10 Influenza, split virus, quadrivalent, preservative 1 completed Sri Leahy RN null, [facility] 04/05/2021 09:51:28 Past Encounters Encounter ID Performer Location Encounter Start Date Encounter Closed Date Diagnosis/Indication Diagnosis SNOMED-CT Code Diagnosis ICD10 Code Diagnosis Note [id number] Jamaal Ham MD [facility], [address] [address] 12/12/2012 08:00:19 12/12/2012 09:21:36 Hypercalcemia 52499115 Pt with elevated Calcium in 11 in [...] age over 50. Pt to go to [facility] [place] [facility] [address] [place] [address] drive, givencopy of lab slip at time of visit. BMD 08/15/12 [facility] spine-0.4, hips 01.8 neck -1.3 total, forearm +0.14 Jun 2012 Ca 11 [id number] Jamaal Ham MD [facility], [address] [address] 01/08/2013 15:42:16 01/08/2013 17:00:59 Disorder of thyroid gland 93087052 TSh 11 and has had TSH of [...] repeats labs would like to go to [address] since open Saturday AM and pt lives near there. Disorder of vitamin D 939934751 Vit D 18 and PTH slighlty elevated at 75. Caclium stable at 11.0 to 11.2 with normal/low urinary calcium. Most consistent with [facility]. Will try to slowly replete D and see if PTH corrects and aches resolve. Will have her take 3000 units of Vit D daily and repeat labs when repeats TSH and FT4 in 6 weeks. Hypercalcemia 86838003 s ee above. Will continue to monitor Calcium levels. 24 hour urine studies most consistent ly with FHH. Explained to pt that people with FHH have higher set points for calcium. If correction of D and TSH does not alleviate symptoms, and calcium remain elevated then will reevaluate at that time. [id number] Maryuri Torres PA-C [facility], [address] [address] 03/05/2013 10:31:44 03/05/2013 11:40:00 Disorder of thyroid gland 52537940 TSH was 11 and is now in [...] repeats labs would like to go to [address] since open Saturday AM and pt lives near there. Disorder of vitamin D 269803164 Vit D is now 26. Ca normal at 10.6, Will have her increase Vit D to 4000 units to get level over 30 and continue this through the winter. Will continue to monitor Ca in renal panel. Labs q 3 months and f/u in 6 months. repeat labs with next TSH in 3 months. Hypercalcemia 90445965 C a normal at 10.6 . see above. Hx=24 hour urine studies most consistent ly with FHH. If correction of D and TSH does not alleviate symptoms, and calcium remain elevated then will reevaluate at that time. Left bundl e branch block [id number] TSH improved to 4 from 11. Do not think T4 could be reason for extra beat pt is feeling. Pt to have f/u with Dr. Estevez in a few weeks and will discuss with him as well. [id number] Maryuri Torres PA-C [facility], [address] [address] 09/03/2013 10:31:16 09/03/2013 11:33:21 Disorder of thyroid gland 07111098 Is seeing Dr.Kirchof rojas in a few weeks to have f/u on her LBBB (preexisti ng condition) . Pt had echo in November and told has 20-30% blockage. Pt states on ASA and statin for this. labs would like to go to [address] since open Saturday AM and pt lives near there. Disorder of vitamin D 445412800 Hypercalcemia 78957772 H x=24 hour urine studies most consistent ly with F[facility]. If correction of D and TSH does not alleviate symptoms, and calcium remain elevated then will reevaluate at that time. Left bundl e branch block [id number] contf/u with Dr. Estevez . [id number] Maryuri Torres PA-C [facility], [address] [address] 03/04/2014 14:26:06 03/04/2014 15:23:06 Disorder of thyroid gland 92985973 Disorder of vitamin D 340978801 Hypercalcemia 41821676 H x=24 hour urine studies most consistent ly with FHH. If correction of D and TSH does not alleviate symptoms, and calcium remain elevated then will reevaluate at that time. Left bundl e branch block [id number] contf/u with Dr. Estevez . [id number] Jamaal Ham MD [facility], [address] [address] 09/21/2014 09:20:13 09/21/2014 10:22:15 Disorder of thyroid gland 80301437 TSH was 11 in 2012 and pt started on T4. TSH stable and to goal. Cont on 50 mcg daily of T4. f/u in 12 months labs q 6 months. Call if symptoms in the meantime and can decide about drawing labs sooner than recommende d date. Lab pt prefers is [address] since open Saturday AM and pt lives near there. Disorder of vitamin D 117471173 Vit D replete at 47 and Ca normal at 10.6,cont Vit D to 4000 units. Labs q 6 months and f/u yearly. Hypercalcemia 50359230 C a normal at 10.6 . see above. Hx=24 hour urine studies most consistent ly with F[facility]. If correction of D and TSH does not alleviate symptoms, and calcium remain elevated then will reevaluate at that time. Left bundl e branch block [id number] Follows with Dr.Kirchof rojas --hx of LBBB (preexisti ng condition) . Pt had echo in November 2013 and told has 20-30% blockage. Pt states on ASA and statin for this. last appt May 2014 when had pacer replaced. F/u with Dr. Estevez . [id number] Jamaal Ham MD [facility], [address] [address] 09/20/2015 09:34:26 09/20/2015 10:19:42 Disorder of thyroid gland 70007053 E07.9 TSH 4 and pt typically in 2's. Will try 75 mcg daily and repeat labs in 8 weeks. Will contact her if dose needs further adjustment after labs. Labs q 4 months after dose stable. f/u in 12 months. Call if symptoms in the meantime and can decide about drawing labs sooner than recommende d date. Lab pt prefers is [address] since open Saturday AM and pt lives near there. Disorder of vitamin D 38 1049676 E56.9 Vit D remaining replete Ca stable at 10.6. Cont Vit D to 4000 units. Labs q 6 months (March and September) and f/u yearly. Hypercalcemia 57818525 E 83.52 PTH normal. Ca normal at 10.6 . Cont to monitor q 6 months (March and September). Hx=24 hour urine studies most consistent ly with [facility]. If correction of D and TSH does not alleviate symptoms, and calcium remain elevated then will reevaluate at that time. [id number] Jamaal Ham MD [facility], [address] [address] 09/20/2016 09:44:08 09/20/2016 10:26:42 Disorder of thyroid gland 35753649 E07.21 Jun 2016 labs to goal on 75 mcg of T4 daily. Cont this dose with labs q 6 months. F/u in 12 months. Lab pt prefers is [address] since open Saturday AM and pt lives near there. Disorder of vitamin D 38 8927070 E56.9 see below. Cont Vit D to 4000 units. Hypercalcemia 72320591 E 83.52 PTH had been normal in [...] Type 2 chanel betes mellitus without complication 333377086 E11.9 Managed by PCP and per pt A1c under 7. [id number] Jamaal Ham MD [facility], [address] [address] 06/10/2017 09:27:23 06/10/2017 10:47:39 Disorder of thyroid gland 25026561 E07.21 Mar 2017 labs to goal on 75 mcg of T4 daily. Cont this dose with labs q 6 months. Keep f/u in September. Lab pt prefers is [address] since open Saturday AM and pt lives near there. Disorder of vitamin D 38 9568646 E56.9 see below. Cont Vit D to 4000 units but want to update. 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 If D remaining high will reduce D level. May be able to lower D level. Keep appt in September. Hypercalcemia 33820459 E 83.52 PTH had been normal in setting of normal Ca and Vit D. Never got repeat Nov lab from [facility], looking at results in [facility] Ca lowered. [...] Type 2 chanel betes mellitus without complication 277216221 E11.9 Managed by PCP and per pt A1c under 7. [id number] Jamaal Ham MD [facility], [address] [address] 09/19/2017 09:24:45 09/19/2017 10:10:11 Disorder of thyroid gland 29123878 E07.19 August 2017 labs to goal.Cont levothyrox ine 75 mcg daily Labs q 6 months. Keep f/u in 6 months. Lab pt prefers is [address] since open Saturday AM and pt lives near there. Disorder of vitamin D 38 1388929 E56.9 Vit D was in 80's so dropped to 2000 units daily. Current testing remaining in 60's. With summer coming will have her take 1000 units daily and then in FAll (January - July) Take 2000 units in the winter. Hypercalcemia 61956759 E 83.52 PTH rising in setting of [...] Type 2 chanel betes mellitus without complication 716520148 E11.9 Managed by PCP and per pt A1c under 7 on low dose metformin ACR negative as well as of September 2017 testing with PCP. [id number] Maryuri Torres PA-C [facility], [address] [phone] 03/28/2018 09:34:36 03/28/2018 10:29:32 Disorder of thyroid gland 12444892 E07.9 TSH normal Feb TSH 0.81 FT4 1.5 Cont levothyrox ine 75 mcg daily Labs q 6 months. Keep f/u in 6 months. Lab pt prefers is [address] since open Saturday AM and pt lives near there. Disorder of vitamin D 38 2254382 E56.9 03/12/18 Vit D still > 60. She had increased to 2000 units in February but do not have to increase. Will have her take 1000 units daily and check again in May 2018. Hypercalcemia 81382338 E 83.52 PTH remains high in setting [...] time and can monitor. She remains on Bennett. Discussed importance of good hydration for both [...] Type 2 chanel betes mellitus without complication 375689180 E11.9 Managed by PCP and per pt A1c under 7 on low dose metformin. Per pt a1c 6.1 at last testing. [id number] Jamaal Ham MD [facility], [address] [phone] 03/27/2019 10:18:13 03/27/2019 11:30:27 Type 2 diabetes mellitus without complication 215425636 E11.9 On metformin 500 mg daily- decreased by PCP Kristine because of increased creatinine .Doing well. With PCP's snf , pt. asking for more diabetes care here. Disorder of vitamin D 38 8505432 E55.9 42.2 (03/31); had been low in past but not in past years. Hypercalcemia 38869636 E 83.52 FHH as evidenccd by low urinary calcium (41 mg/24hr in 10/28) and high serum calcium.Cr eat= 1.5 (lately 1.3-1.6); Ca= 10.9 (was 10.8) ; Phos= 3.2 Hypothyroidism 50248192 E03.9 On 75 mcg levothyrox ine.Doing well clinically . [id number] Jamaal Ham MD [facility], [address] [phone] 04/01/2020 08:45:09 04/01/2020 20:00:33 Type 2 diabetes mellitus without complication 659222266 E11.9 On metformin 500 mg daily- decreased by PCP Kristine because of increased creatinine .Doing well.a1c in 6s. no evidence of complicati ons at present. Disorder of vitamin D 38 2688441 E55.9 37 (01/30); was 42.2 (03/31); had been low in past but not in past years.Take s 1000 units daily. Hypercalcemia 07754631 E 83.52 FHH as evidenced by low urinary calcium (41 mg/24hr in 10/28) and high serum calcium.Cr eat= 1.5 (lately 1.3-1.6); Ca= 10.9 (was 10.8) ; Phos= 3.2 Hypothyroidism 24244340 E03.9 On 75 mcg levothyrox ine.Doing well clinically . Dyslipidem ia due to type 2 diabetes mellitus 4324487548 02 E78.5 2020: 163/289/36 /69;With high TG and low HDL.Encour age more activity.I f remains high, would consider either change to atorva, rosuva or possible addition of Vascepa. [id number] Jamaal Ham MD [facility], [address] [phone] 04/05/2021 09:42:53 04/07/2021 06:32:39 Type 2 diabetes mellitus without complication 898755216 E11.9 On metformin 500 mg daily- decreased by PCP (Valarie Abad). Raeion/Riddhi reyDoing well.a1c in 6s. no evidence of complicati ons at present. Disorder of vitamin D 38 7360078 E55.9 34 (01/31); was 37 (01/30); was 42.2 (03/31); had been low in past but not in past years.Take s 1000 units daily. Hypercalcemia 59207019 E 83.52 FHH as evidenced by low urinary calcium (41 mg/24hr in 10/28) and high serum calcium.Cr eat= 1.5 (lately 1.3-1.6); Ca= 10.9 (was 10.8) ; Phos= 3.2 Hypothyroidism 19102786 E03.9 On 75 mcg levothyrox ine.Doing well clinically . Re-order levothyrox ine today with refill x 6 but will ask pt. to have PCP refill future Rx's. Dyslipidem ia due to type 2 diabetes mellitus 4956609024 02 E78.5 2020: 159-247 (were 164)-36- 2020: 163/289/; With high TG and low HDL.Encour age more activity.I f remains high, would consider either change to atorva, rosuva or possible addition of Vascepa. [id number] Jamaal Ham MD [facility], [address] [phone] 06/16/2024 10:55:56 06/29/2024 07:56:11 Type 2 diabetes mellitus without complication 874756752 E11.9 On metformin 500 mg daily- decreased by PCP (Valarie Abad). Raeion/Riddhi reyDoing well.a1c in 6s. Last was 6.9 in 2023.No evidence of complicati ons at present. Hypercalcemia 74051287 E 83.52 UNCONTROLL EDThought to be FHH [...] urinary studies.- check CASR gene mutation. Hypothyroidism 58915799 E03.9 On 75 mcg levothyrox ine.Doing well clinically . Dyslipidem ia due to type 2 diabetes mellitus 2519367974 02 E78.5 08/03: - 144/207/40 /63 on rosuva 5mg.2020: 159-247 (were 164)-36-74 2020: 163/289/36 /69; 07/07: Some improvemen t from previous values with high TG and low HDL. [id number] Jamaal Ham MD [facility], [address] [address] 09/08/2024 14:23:58 09/17/2024 07:40:01 Hypercalcemia 51284119 E83.52 UNCONTROLL EDThought to be FHH in past as evidenced by low urinary calcium (41 mg/24hr in 10/28) and high serum calcium. Calcium generally high but have had some normal values in 2023: 10.1 (09/03); was 10.0 (08/03); was 9.8 (08/03) was 10.1 (08/03); was 10.6 (08/03); was 11.0 (07/06) PTH= 200 (06/06 per pt*); was 217 (05/05 per pt*); was 225 (04/05); was 227 (04/05); was 50 (03/05); was 187 (03/05); was 202 (01/03);* Can't find these values in either [facility] or [place] 07/07: Has high PTH with high Calcium.Sequeira [...] POST VISIT DISCUSSION :Dr. Todd notes most [facility] patients have mildly abnormal PTH which she has typically had in past. Levels of 200 (reported by pt) seem high but can't confirm these in [facility] or [place] ([facility]).He agrees that surgery not appropriat e and, even if she has primary hyperpara, operating on 78 y.o. with several medical problems may have more risk than benefit. Hope to reach out to RENAL ([place]ak[place]) to further discuss.En courage pt. to stay on Cinacalcet for now. Type 2 chanel betes mellitus without complication 233439890 E11.9 On metformin 500 mg daily- decreased by PCP (Valarie Abad). Hession/Riddhi reyDoing well.a1c in 6s. Last was 6.9 in 2023.No evidence of complicati ons at present. Hypothyroidism 65260138 E03.9 On 75 mcg levothyrox ine.Doing well clinically . Dyslipidem ia due to type 2 diabetes mellitus 1720911515 02 E78.5 08/03: - 144/207/40 /63 on rosuva 5mg.2020: 159-247 (were 164)-36-74 2020: 163/289/36 /69; 07/07: Some improvemen t from previous values with high TG and low HDL. Hypomagnesemia 622626038 E83.42 Ongoing issue for her.Might be due [...] B-[place]: [employer]ATIONAL [employer] Annetta E McElwey [id number] Annetta Chinyere McElwey 03/27/2019 2 [place]MED[place]PPLEMENT) [id number] Annetta Dallas McElwey [id number] Annetta Chinyere McElwey 04/01/2020 1 MEDICARE B-[place]: NATIONAL GOVERNMENT SERVICES Annetta E McElwey [id number] Annetta Dallas McElwey 04/01/2020 2 [place] [id number] Annetta Chinyere McElwey [id number] Annetta Chinyere McElwey 04/05/2021 1 MEDICARE B-[place]: NATIONAL [employer]OVERNMENT SERVICES Annetta E McElwey [id number] Annetta Dallas McElwey 04/05/2021 2 [place] [id number] Annetta Chinyere McElwey [id number] Annetta Chinyere McElwey 06/16/2024 1 MEDICARE B-[place]: NATIONAL [employer]ERNMENT SERVICES Annetta E McElwey [id number] [id number] Annetta Dallas McElwey 06/16/2024 1 [facility] [id number] Annetta E McElwey [id number] Annetta Chinyere McElwey 09/08/2024 1 [facility] (MEDICARE REPLACEMENT/ ADVANTAGE - PPO) [id number] Annetta Hernandezlwey [id number] Annetta Neriwey Notes Date Note Type Note Provider Name [...] stones. BMD: Done at [facility]. 2018. ROS: No fevers or chills.Had sinus fungal infection in 2018.Can be SOB if rushing and gets anxiousNo muscle aches or pains. No cramping.No dizziness with standing in AM. No bruises or rashes. ` Jamaal Ham MD [address] [place] [address], [phone], [facility] 03/30/2019 15:28:25 0 text/html DiabetesReported bypatient.Labs:last Hemoglobin [...] Hypoglycemia Symptomsfrequency of hypoglycemic episodesinfrequently (metformin only.); Brumley funny (Shivering in middle of night- trembling) [...] was notified that the [place] [facility] During the visit the [...] kidney stones.BMD: Done at [facility]. 2018. ROS: No fevers or chills.Had sinus fungal infection in 2018.Can cough or SOB (besides described elsewhere with activity or stress)No muscle pains. No cramping. Gets leg cramps- has tonic water nightly. No dizziness with standing in AM. No bruises, itching or rashes. Jamaal Ham MD [address] [place] [address], [phone], [facility] 04/01/2020 09:48:45 1 text/html DiabetesReported bypatient.Labs:last Hemoglobin [...] artery disease s/p pacemaker; no retinopathy ([facility] ([facility])); no numbness of feet;kidney disease chronic renal [...] tracings periodically.Will be seeing new CARDS in [place].But also has had nuclear ETT at [place]. PCP- Valarie Abad.CARDIAC: Switching to [place] (Subramarian)- [...] kidney stones.BMD: Done at [facility]. 2018. ROS:No fevers or chills.Had sinus fungal infection in 2018.Can cough or SOB (besides described elsewhere with activity or stress)No muscle pains. No cramping. Gets leg cramps- has tonic water nightly. No dizziness with standing in AM.No bruises, itching or rashes. Jamaal Ham MD [address] [place] [address], [phone], [facility] 04/05/2021 22:06:34 5 text/html DiabetesReported bypatient.Labs:last Hemoglobin A1C: 6s at goal (6.9 ([place] in 2023); was 6.1 (01/31); was 6.2 [...] Symptomscoronary artery disease s/p pacemaker; no retinopathy (([facility] )); no numbness of feet;kidney disease [...] tracings periodically.Will be seeing new CARDS in [place].But also has had nuclear ETT at [place]. Last seen in 2020.PCP- Valarie Abad.CARDIAC: Switching to [place] (Subramarian)- for pacer.RENAL is Arsen Villegas ([place])ENT: Tu T2DM, hypothyroidism and hypercalcemia (previously thought secondary to FHH). Follow-Up: disorder of thyroid glandFollow-Up: Type 2 diabetes mellitus without complicationFollow-Up: hypercalcemiaFollow-Up: disorder of vitamin DHypothyroidismLV 1LAst labs 08/03 added to chart last A1C- 6.9 [facility]PT states has a adenoma on parathyroidChecks blood sugars daily FBS will write down Past MED HX:T2DM with CKD (GFR <45)HYPOTHYROIDHYPERCALCE FREDRICK (chronic- [facility])Pacemaker- replaced 2023 Other hx: migraines (none [...] Magalie (44)- doing OK. 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 Lynne ([facility] ) and Amara- ([place])daughter (50)- Herman at [employer]. 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 U/S done at [place].Big concern: told of adenoma on parathyroid. Calciums in 11s. PTH in triple digits.On cinacalcet but hasn't impacted PTH. Not affecting Ca much. Makes her nauseated.Told it depletes Mg.Interested in surgery as option. seeing him next month.RENAL is Athreya([place]) Hx of hypercalcemia thought to be due to FHH. 2018: urine C was LOW= 3.9 mg/dL (31 mg/24 hrs)No hx of kidney stones.BMD: Done at [facility]. 2018. Ca= 10.7 (05/05); was 10.1 [...] PREVIOUS 24 HR URINE (2017)Creatinine Clearance................ ........................5 [id number]............... ......................... >80Phosphorus Clearance................ .....................11.5 [id number].................. ......................5 to 15Tubular Reabsorption of Phosphorus........80.1711 3095..................... ...................82-97% Calcium/Creatinine Clearance................ .........0.170372109..... ......................... ........<0.01 C/W FHHLow Ca/Creat clearance and TRP are c/w [facility]. KIDNEY STONES: NONEFRACTURES: NONEBONE PAIN: Sometimes- [...] in abdomen.M/S sx: arthritic. Jamaal Ham MD [address] [place] [address], [phone], [facility] 06/28/2024 14:21:00 5 text/html DiabetesReported bypatient.Labs:last Hemoglobin A1C: 6s at goal (6.9 ([place] in 2023); was 6.1 (01/31); was 6.2 [...] Symptomscoronary artery disease s/p pacemaker; no retinopathy (([facility] )); no numbness of feet;kidney disease chronic renal insufficiency Hypoglycemia Symptomsfrequency of hypoglycemic episodesinfrequently (metformin only.); Occ sx of shaking but if checks, hasn't seen low value. Nothing below 90-100.Notes:08/03 -144/207/40/63 01/31:159-247 (were 164)-36-: 163/289/36/69; on prava.discussed impact of exercise. BG fastin-146 (04/02); was 116-145 (04/01) Pt. feels 140s if does NOT have snack night before. ThyroidReported bypatient.Previous Evaluation:TSH: (1.28 (07/07); was 0.91 (01/31); was 1.88 (01/30); was 1.12; was 0.8 (02/27)); free T4: (1.53 (07/07); was 1.4 (01/31); was 1.1 (01/30); was 1.5 (02.27)) Treatment:levoxyl, dose: 75 mcg, frequency: (takes in [...] tracings periodically.Will be seeing new CARDS in [place].But also has had nuclear ETT at [place]. PCP- Valarie Abad.CARDIAC: Switching to [place] (Subramarian)- for pacer.RENAL is Arsen Villegas ([place])ENT: [place] Follow-Up: disorder of thyroid glandFollow-Up: Type 2 diabetes mellitus without complicationFollow-Up: hypercalcemiaFollow-Up: disorder of vitamin DHypothyroidismLV 07/07LAst labs 07/07 added to chart last A1C- 6.9 [facility] FBS PT forgot meter [...] Magalie (44)- doing OK. 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 Lynne ([facility] ) and Amara- ([place])daughter (50)- Herman at [employer]. 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 U/S done at [facility] [employer].Big concern: told of adenoma on parathyroid. Calciums in 11s. PTH in triple digits.On cinacalcet but hasn't impacted PTH. Not affecting Ca much. Makes her nauseated.Told it depletes Mg.Interested in surgery as option. seeing him next month.RENAL is Athreya([place]) Hx of hypercalcemia thought in past to be due to FHH.(see A/P for summary) 2018: urine C was LOW= 3.9 mg/dL (31 mg/24 hrs)No hx of kidney stones.BMD: Done at [facility]. 2017. Ca= 10.7 (09/01/24 per pt); [...] CPAP (dry mouth).SOB: intermittent. Jamaal Ham MD [address] [place] [address], [phone], [facility] 09/09/2024 19:39:34 OBGyn Episode No OBEpisode recorded.
--- OUTSIDE RECORDS SUMMARY | 2024-09-21 12:58 | XMS_ITS ---
Author Organization [facility] Address [address] [place] [phone] Care Team Providers [employer] Targeting Supervisor Name Role Phone Archie Finch MD Primary Care Provider Cash Casanova [phone] REASON FOR VISIT out of omeprazole requesting r/f Encounters Encounter Location Date Provider Diagnosis [facility] [address] [place] [phone] 03/26/2024 Cash Mercado Plan Of Treatment No Information Progress Notes * LULI DE LUNA EDOB:1945 (78 yo F)Acc No.[id number]:03/26/2024 Patient:?LULI DE LUNA :1945???Age:78 Y???Sex:Female Address:[address] [place] [address], [place] [address] * true * Date:? Generated for Printi dejon/Opal/eTransmitting on:?09/21/2024 12:57 PM EDT
[2024-09-21 13:04] VITALS: BP 132/78; PULSE 88; BMI 36.7
--- NOTE | 2024-09-21 13:04 | MHC.OFFVIS ---
Vital Signs 09/21/24 13:04 Height 5 ft 2 in Weight 200 lb 9.93 oz BMI 36.7 BP 132/78 Blood Pressure Location Lt brachial Position Sitting Pulse 88 Pulse Source Monitor Intake Visit Reasons: 6 mth w/ medtronic ck Allergies EMELIA Inhibitors Adverse Reaction (Severe, Verified 09/03/24 14:03) Angioedema Medication List - Last Reconciled 09/21/24 by Otf Patel MD acetaminophen (Tylenol Extra Strength) 650 mg PO Q6H amlodipine 10 mg PO DAILY biotin 5 mg PO DAILY cinacalcet 30 mg PO Q OTHER DAY cyanocobalamin (vitamin B-12) (Vitamin B-12) 1,000 mcg PO DAILY levothyroxine 75 mcg PO DAILY@0600 magnesium 1,250 mg PO DAILY metformin 500 mg PO DAILY@1700 nystatin (Nystop) 1 appl topical BID PRN omeprazole 40 mg PO DAILY prednisone 40 mg PO PRN psyllium husk (Metamucil) 3 tbsp PO DAILY rosuvastatin 5 mg PO DAILY spironolactone 12.5 mg PO DAILY HPI Comments Details: Annetta Whitlock returns for follow-up. 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 She states that she underwent a pacemaker around 7916-0617; generator change around 2013 and again in 2023. Per prior cardiology notes, she has sick sinus syndrome, but primarily AV julian block. Comorbidities include hypertension, dyslipidemia as well as type 2 diabetes. She does not have any known coronary disease or myocardial infarction or cardiomyopathy. Overall, feels about the same as before. Shortness of breath has been chronic but she states that she feels a bit more now than before. No angina. [facility] Medical History (Updated 09/21/24 @ 13:37 by Otf Patel MD) Pacemaker at end of battery life Elevated lipase Mass of left lung AV block Type 2 diabetes mellitus with unspecified complications Pacemaker Hypercholesteremia GERD (gastroesophageal reflux disease) Hypothyroid Hypertension Surgical History History of tonsillectomy H/O total knee replacement H/O: hysterectomy Hx of cholecystectomy Family History Mother HTN (hypertension) Heart attack Father No problems noted. Maternal Grandmother Breast cancer Social History Household Members: Spouse Housing: House Do you presently have visiting nurse or other home services: No Alcohol intake: current Alcohol intake frequency: holidays/special occasions only Patient Tobacco Use Status: Never used Tobacco Advance Directives Date on File: 08/13/23 service: No Review of Systems Const Denies weakness ENT Denies dizziness Card Denies chest pain, Denies chest pain with activity, Denies syncope, Denies rapid heart rate, Denies pedal edema, Denies edema, Denies leg edema, Denies lightheadedness, Denies palpitations, Denies dyspnea, Denies dyspnea on exertion and Denies orthopnea Resp Denies cough, Denies dyspnea and Denies dyspnea on exertion GI Denies hematochezia and Denies change in stool character Musc Denies abnormal gait, Denies muscle cramps, Denies muscle weakness, Denies numbness, Denies radiating pain into limb and Denies tingling Neuro Denies abnormal gait, Denies dizziness, Denies syncope, Denies numbness, Denies tingling and Denies weakness Endo Denies palpitations Physical Exam Vital Signs: Last Vital Signs Pulse 88 09/21/24 13:04 BP 132/78 09/21/24 13:04 BMI result Body Mass Index 36.7 Const General: comfortable and no acute distress Orientation/consciousness: patient oriented x3 HEENT Other: Unremarkable Head: Yes normal to inspection Neck Neck: Yes normal visual inspection Chest Chest palpation & inspection: normal inspection of the chest Resp Auscultation: clear to auscultation bilaterally Cardio Palpation: normal PMI Heart sounds: S1 normal heart sound present, S2 normal heart sound present, no gallops, no murmurs and no rubs GI Palpation (GI): Soft to palpation Back/Spine/Pelvis Other: unremarkable Skin General skin exam: no rashes or lesions noted Neuro General: patient oriented x3 Extrem General: Yes normal to inspection Psych Mental Status: mental status grossly normal Office Procedures Cardiac Device Check Cardiac Device Check Details: Pacemaker interrogated today. Dual-chamber device, battery status 10.3 years. Normal lead parameters. Atrial pacing 9.4%. Ventricular pacing 98.9%. Transient NSVT episodes x2. Overall, normal device function. 64059-PQ Cardiac Device Check, pacemaker dual lead Procedure code (CPT) selection complete EKG Details: EKG with atrial sensed and probably ventricular paced rhythm at 89/Min. [id number], Complete Assessment & Plan Assessment & Plan (1) Pacemaker: Code(s): Z95.0 - Presence of cardiac pacemaker Category: Medical Plan: Status post generator change. Normally functioning. Can follow this remotely. (2) SOB (shortness of breath): Code(s): R06.02 - Shortness of breath Category: Medical Plan: This has been a chronic issue. In the last echocardiogram, LVEF is 55-60%. Mild diastolic dysfunction. Indeterminate filling pressures. Mildly reduced peak global longitudinal strain at -15.3%. Otherwise unremarkable. Myocardial perfusion imaging 2020 with reversible perfusion defect in the inferior/inferolateral wall but thought to be from diaphragmatic attenuation artifact and preserved LVEF. Less likely there is a new issue like cardiomyopathy but as she is still having the same symptoms, we will recheck. (3) Essential hypertension: Code(s): I10 - Essential (primary) hypertension Category: Medical Plan: Stable. No new changes today. Also has CKD and goes to Nephrology. (4) Type 2 diabetes mellitus with unspecified complications: Code(s): E11.8 - Type 2 diabetes mellitus with unspecified complications Category: Medical Plan: On metformin. Per PCP note, hemoglobin A1c 6.1%. Seems well controlled. Orders: Orders CA echo transthoracic complete Today R06.02 - Shortness of breath, Z95.0 - Presence of cardiac pacemaker Coding Level of Care Code Est Pt Level 4 (55897) Complex EM visit Add On G2211 Diagnoses Pacemaker Z95.0 SOB (shortness of breath) R06.02 Essential hypertension I10 Type 2 diabetes mellitus with unspecified complications E11.8 CPT Codes Cardiac Device Check - Cardiac Device 2: 94335-VK Cardiac Device Check, pacemaker dual lead ([id number]) EKG - CPT: 72737-Kejowocdpxfprdfkd, Complete ([id number])
== END 2024-09-21 13:42 | disposition home or self-care (01) ==
LOC: HO.HCS 12:32
PROVIDERS: PCP Nurse Practitioner Primary Care; Visit Provider Internal Medicine
DX: R06.02 Shortness of breath (principal); Z95.0 Presence of cardiac pacemaker; I10 Essential (primary) hypertension; E11.8 Type 2 diabetes mellitus with unspecified complications
CPT/HCPCS: 93010; 93280; 99214; G2211

== ENCOUNTER → 2024-09-21 12:31 | Outpatient (BNVA) | payer MEDICARE, SELFPAY | PROVIDERS: PCP Nurse Practitioner Primary Care; Visit Provider Internal Medicine | DX: I10 Essential (primary) hypertension (principal); R06.02 Shortness of breath; E11.8 Type 2 diabetes mellitus with unspecified complications; Z95.0 Presence of cardiac pacemaker | CPT/HCPCS: 93005; 93280; 99212 ==

== ENCOUNTER → 2024-10-02 23:59 | Outpatient (BNV) | payer MEDICARE, SELFPAY ==
--- NOTE | 2024-10-11 09:38 | A.OFFVIS_ITS ---
Intake Visit Reasons: Remote device check- [employer] Allergies EMELIA Inhibitors Adverse Reaction (Severe, Verified 09/03/24 14:03) Angioedema PFSH Medical History (Updated 09/21/24 @ 13:37 by Otf Patel MD) Pacemaker at end of battery life Elevated lipase Mass of left lung AV block Type 2 diabetes mellitus with unspecified complications Pacemaker Hypercholesteremia GERD (gastroesophageal reflux disease) Hypothyroid Hypertension Surgical History History of tonsillectomy H/O total knee replacement H/O: hysterectomy Hx of cholecystectomy Family History Mother HTN (hypertension) Heart attack Father No problems noted. Maternal Grandmother Breast cancer Social History Household Members: Spouse Housing: House Do you presently have visiting nurse or other home services: No Alcohol intake: current Alcohol intake frequency: holidays/special occasions only Patient Tobacco Use Status: Never used Tobacco Advance Directives Date on File: 08/13/23 service: No Office Procedures Cardiac Device Check Cardiac Device Check Details: Date of service- 10/02/2024 ; Battery life >9 years; normal lead parameters; AP >7%; CHILDREN'S PROGRAM COORDINATOR >98%; no significant arrhythmias. Overall normal device function. [id number] Cardiac Device Interrogation, pacemaker Procedure code (CPT) selection complete Assessment & Plan Assessment & Plan (1) Pacemaker: Code(s): Z95.0 - Presence of cardiac pacemaker Category: Medical (2) AV block: Code(s): I44.30 - Unspecified atrioventricular block Category: Medical Plan x Coding Level of Care Code Procedure Only Diagnoses Pacemaker Z95.0 AV block I44.30 CPT Codes Cardiac Device Check - Cardiac Device 12: [id number] Cardiac Device Interrogation, pacemaker ([id number])
== END ==
PROVIDERS: PCP Nurse Practitioner Primary Care; Visit Provider Internal Medicine
DX: I44.30 Unspecified atrioventricular block (principal); Z95.0 Presence of cardiac pacemaker
CPT/HCPCS: 93294

== ENCOUNTER 2024-10-12 07:35 | Outpatient (REF) | payer MEDICARE, SELFPAY ==
[2024-10-12 08:50] LABS: Parathyroid Hormone Intact 210.7 pg/mL (8.7-77.1)
== END 2024-10-12 07:36 | disposition home or self-care (01) ==
LOC: HO.LAB 07:35
PROVIDERS: PCP Nurse Practitioner Primary Care; Visit Provider Internal Medicine Hypertension Specialist
DX: I10 Essential (primary) hypertension (principal); N18.9 Chronic kidney disease, unspecified
CPT/HCPCS: 36415; 83970

== ENCOUNTER 2024-10-20 11:04 | Outpatient (REF) | payer MEDICARE, SELFPAY ==
[2024-10-20 12:19] LABS: Anion Gap 12 (12-20); Blood Urea Nitrogen 32 mg/dL (9-16); Carbon Dioxide 27 mmol/L (22-29); Chloride 106 mmol/L (96-108); Estimated Glomerular Filt Rate 45; Glucose Random 81 mg/dL (60-115); Magnesium 1.6 mg/dL (1.6-2.6); Parathyroid Hormone Intact 236.7 pg/mL (8.7-77.1); Potassium 4.1 mmol/L (3.3-5.1); Sodium 141 mmol/L (135-145)
--- OUTSIDE RECORDS SUMMARY | 2024-10-20 13:14 | XMS_ITS | Encounter Summary ---
Author Organization [facility] Address [address] [facility] [address] [place] [address] Phone Care Team Providers Care Product Line Manager Name Role Phone Carmita Dietz MUSIC COMPOSITION TEACHER-C Primary Care Provider + Reason for Visit * Reason Comments Med Refill Encounter Details Date Type Department Care Team (Late st Contact Info) Description 02/27/2023 [facility]ill [facility] [address] [place] [phone] Arsen Villegas MD Social History Tobacco Use [...] on filedocumented in this encounter Care Teams Product Line Manager Relationship Specialty Start Date End Date Carmita Dietz NP-C [address], [address] [place] [address] PCP - General Nurse Practitioner 07/18/22 documented as of this encounter
== END 2024-10-20 11:05 | disposition home or self-care (01) ==
LOC: HO.LAB 11:04
PROVIDERS: Nurse Practitioner Family; PCP Nurse Practitioner Primary Care; Visit Provider Internal Medicine Hypertension Specialist
DX: E83.42 Hypomagnesemia (principal); I12.9 Hypertensive chronic kidney disease with stage 1 through stage 4 chronic kidney disease, or unspecified chronic kidney disease; N18.30 Chronic kidney disease, stage 3 unspecified
CPT/HCPCS: 36415; 80048; 83735; 83970

== ENCOUNTER → 2024-10-27 08:33 | Outpatient (REF) | payer MEDICARE, SELFPAY ==
--- NOTE | 2024-10-27 08:38 | CA_ITS ---
Transthoracic Echocardiogram Patient (Last, First, Middle): Annetta Fishman Etta Gender: Female Date of : 1945 Age: 78 Procedure Date: 10/27/2024 Procedure Type: Transthoracic Echocardiogram Location: OP Height: 157. cm Weight: 92.99 kg BSA: 1.93 m2 Heart Rate: 78 bpm BP: 152 / 65 mmHg Gum Maker: ABEBE Referring MD: Otf Patel MD Symptoms: R06.02 - Shortness of breath Study Quality: Adequate ECG Rhythm: Sinus Conclusions: - The left ventricular systolic function is mildly decreased. The visually estimated ejection fraction is between 40-45%. - No obvious valvular pathology seen on this study. Findings Left Ventricle Normal left ventricular cavity size. There is mildly increased left ventricular wall thickness. The left ventricular systolic function is mildly decreased. The visually estimated ejection fraction is between 40-45%. There is paradoxical septal motion consistent with a right ventricular pacemaker. Evidence suggests grade I (mild) diastolic dysfunction. There is moderate septal asymmetric hypertrophy. Right Ventricle Normal right ventricular cavity size. There is mildly decreased right ventricular systolic function. There is a pacemaker wire seen in the right ventricle. Atria The left atrium is mildly dilated. The right atrium is normal in size. Aortic Valve There is a normal trileaflet aortic valve. There is no aortic valve stenosis. There is mild aortic valve regurgitation. Mitral Valve The mitral valve appears normal. There is trace mitral valve regurgitation. There is no mitral valve stenosis. Pulmonic Valve The pulmonic valve is likely normal. Tricuspid Valve There is mild tricuspid valve regurgitation. There is no evidence of pulmonary hypertension. Great Vessels The asc aorta and aortic arch are normal in size. Venous The inferior vena cava is normal in size and collapses greater than 50% with inspiration. Pericardium/Pleural There is no evidence of pericardial effusion. Prior Study Comparison Changes noted compared to prior study dated: 10/18/2023. LVEF lower than previously reported; but on review of prior images, already appears low normal. Recommendations, Care & Conclusions No obvious valvular pathology seen on this study. Measurements 2D Linear Measurements IVSd: 1.48 0.6-0.9/0.6-1.0 cm LVIDd: 4.99 3.9-5.3/4.2-5.9 cm LVIDd Index: 2.59 2.4-3.2/2.2-3.1 cm/m2 LVIDs: 3.26 2.0-3.6 cm LVPWd: 1.06 0.7-1.1 cm LA Diam: 4.50 2.7-3.8/3.0-4.0 cm LAIDs Index: 2.33 1.5-2.3 cm/m2 LV Mass: 314.81 67-162/88-224 g LV Mass Index: 163.12 43-95/49-115 g/m2 LVOT Diam: 2.20 3.0+(-)1.3 cm 2D Systolic Function EF 4C: 48.20 >55% EF 2C: 52.10 >55% EF BiP: 50.60 >55% Mitral Valve MV Pk E: 0.58 MV PK A: 1.26 MV Decel Time: 132.00 E/A: 0.50 E'Lateral: 5.00 E'Medial: 3.92 E/E' Med: 14.80 E/E' Lat: 11.60 PHT: 36.00 MVA PHT: 6.11 Decel Sauk: 7.97 Aortic Valve AoV Pk Heriberto: 1.31 AoV Mn Heriberto: 0.95 AoV VTI: 0.28 AoV Pk Grad: 7.00 Aov Mn Grad: 4.00 VEL Cont.VTI: 2.31 LVOT LVOT Pk Heriberto: 0.79 LVOT Mn Heriberto: 0.60 LVOT VTI: 0.17 LVOT Pk Grad: 3.00 LVOT Mn Grad: 2.00 LVOT Diam: 2.20 LVOT Area: 3.80 Diastolic Function MV Pk E: 0.58 MV Pk A: 1.26 E/A: 0.50 E'Medial: 3.92 E/E' Med: 14.80 E' Laterial: 5.00 E/E' Lat: 11.60 Right Ventricle TAPSE (mm): 25.30 TVS' Heriberto: 8.92 Tricuspid Valve TR Pk Heriberto: 2.29 TR Pk Grad: 21.00 RA Press: 3.00 RVSP: 24.00 Great Vessels Aorta Sinus of Valsalva: 2.90 2.0-3.5 cm Ao Asc: 3.70 2.1-3.4 cm Ao Arch: 2.80 Pulmonary Valve PV Pk Heriberto: 1.18 Peak PV Grad: 6.00 Updated in Other Vendor System with Status of Final Otf Patel MD electronically signed on 10/27/2024 4:01:39 PM with status of Final
--- OUTSIDE RECORDS SUMMARY | 2024-10-27 08:53 | XMS_ITS | Encounter Summary ---
Author Organization [facility] Address [address] [facility] [address] [place] [address] Phone Care Team Providers Care Stand Up Forklift Operator Name Role Phone Carmita Dietz SALOONKEEPER-C Primary Care Provider + Reason for Visit * Reason Comments Med Refill Encounter Details Date Type Department Care Team (Late st Contact Info) Description 02/27/2023 Refill [facility] [address] [place] [phone] Arsen Villegas MD Social History Tobacco Use [...] on filedocumented in this encounter Care Teams Stand Up Forklift Operator Relationship Specialty Start Date End Date Carmita Dietz NP-C [address], [address] [place] [address] PCP - General Nurse Practitioner 07/18/22 documented as of this encounter
== END ==
LOC: HO.CARD 08:33
PROVIDERS: PCP Nurse Practitioner Primary Care; Visit Provider Internal Medicine
DX: R06.02 Shortness of breath (principal); Z95.0 Presence of cardiac pacemaker
CPT/HCPCS: 93306

== ENCOUNTER → 2024-10-27 08:38 | Outpatient (BNV) | payer MEDICARE, SELFPAY | PROVIDERS: PCP Nurse Practitioner Primary Care; Visit Provider Internal Medicine | DX: R06.02 Shortness of breath (principal) | CPT/HCPCS: 93306 ==

== ENCOUNTER 2024-11-09 14:03 | Outpatient (AMB) | payer MEDICARE, SELFPAY ==
--- OUTSIDE RECORDS SUMMARY | 2023-10-03 03:30 | XMS_ITS ---
Author Organization [facility] Address [address] [place] [address] Care Team Providers Care Contact Center Assistant Name Role Phone Archie Finch MD Primary Care Provider Cash Casanova [phone] REASON FOR VISIT abn ct scan colon, gerd,hiatal hernia,epigastric pain, Problems Problem Type SNOMED Code ICD Code Onset Dates Problem Status W/U Status Risk Notes Problem Diverticular disease of colon (225157886) Diverticulosis of large intestine without perforation or abscess without bleeding (K57.30) Active confirmed Problem Ulcer of esophagus (95962341) Ulcer of esophagus without bleeding (K22.10) Active confirmed Problem Gastritis, chron ic (K29.50) Active confirmed Encounters Encounter Location Date Provider Diagnosis [facility] Outpatient [address] [place], [place] [id number] 10/03/[address] scan, colon R93.3 ; Diverticulosis of large intestine without perforation or abscess without bleeding K57.30 ; Other hemorrhoids K64.8 ; Ulcer of esophagus without bleeding K22.10 ; Hiatal hernia K44.9 ; Gastritis, chronic K29.50 ; Hematemesis K92.0 and Abdominal pain R10.9 Assessments Encounter Date Diagnosis (ICD Code) Assessment Notes Treatment Notes Treatment Clinical Notes Section Notes 10/03/[address] scan, colon (ICD-10 - R93.3) 10/03/2023 Diverticulosis of large intestine without perforation or abscess without bleeding (ICD-10 - K57.30) 10/03/2023 Other hemorrhoids (ICD-10 - K64.8) 10/03/2023 Ulcer of esophagus without bleeding (ICD-10 - K22.10) 10/03/2023 Hiatal hernia (ICD-10 - K44.9) 10/03/2023 Gastritis, chronic (ICD-10 - K29.50) 10/03/2023 Hematemesis (ICD-10 - K92.0) 10/03/2023 Abdominal pain (ICD-10 - R10.9) Plan Of Treatment No Information Progress Notes * LULI DE LUNA EDOB:1945 (78 yo F)Acc No.[id number]:10/03/2023 EGD and COL/MAC Patient: LULI STONER E Provider: Fidel Mercado MD :1945 A ge:77 Y S ex:Female Date:10/03/2023 Address:[address] [place], [place] [id number] Pcp:Archie Finch MD Subjective: * Chief Complaints: * [address] scan colon, gerd,hiatal hernia,epigastric pain,. * Medical History: Objective: * Vitals: Assessment: * Assessment: 1. A bnormal CT scan, colon - R93.3 (Primary) 2 . D iverticulosis of large intestine without perforation or abscess without bleeding - K57.30 3 . O ther hemorrhoids - K64.8 4 . U lcer of esophagus without bleeding - K22.10 5. H iatal hernia - K44.9 6 . G astritis, chronic - K29.50 ?7. H ematemesis - K92.0 8 . A bdominal pain - R10.9 Plan: * Treatment: * Procedure Codes: 4 5378 DIAGNOSTIC COLONOSCOPY, 21492 UPPER GI ENDOSCOPY, BIOPSY * * The named appointment provid er may or may not be the originator of this progress note, and it is not deemed complete until electronically signed by the appointment provider. Sign off status: Pending * Provider: Fidel Mercado MD Date: 0 10/03/2023 Generated for Aishai dejon/Opal/eTransmitting on: 0 11/09/2024 02:39 PM EDT
[2024-11-09 14:06] VITALS: BP 130/70; PULSE 50; O2SAT 96; BMI 37.5
--- NOTE | 2024-11-09 14:06 | HO.NEPHOV ---
Vital Signs 11/09/24 14:06 Height 5 ft 2 in Weight 205 lb BMI 37.5 BP 130/70 Blood Pressure Location Lt brachial Position Sitting Pulse 50 Pulse Source Pulse Oximeter Pulse Oximetry (%) 96 Oxygen Delivery Method Room Air Intake Visit Reasons: FU/ Conf Materials Handling Equipment Operator Required: No Accompanied by: Spouse Allergies EMELIA Inhibitors Adverse Reaction (Severe, Verified 11/09/24 14:08) Angioedema Medication List - Last Reconciled 11/09/24 by Arsen Villegas MD acetaminophen (Tylenol Extra Strength) 650 mg PO Q6H amlodipine 10 mg PO DAILY biotin 5 mg PO DAILY cinacalcet 30 mg PO Q OTHER DAY cyanocobalamin (vitamin B-12) (Vitamin B-12) 1,000 mcg PO DAILY levothyroxine 75 mcg PO DAILY@0600 magnesium 1,250 mg PO DAILY magnesium oxide 500 mg PO BID metformin 500 mg PO DAILY@1700 nystatin (Nystop) 1 appl topical BID PRN omeprazole 40 mg PO DAILY prednisone 40 mg PO PRN psyllium husk (Metamucil) 3 tbsp PO DAILY rosuvastatin 5 mg PO DAILY spironolactone 12.5 mg PO DAILY HPI Comments Details: Elderly woman with a history of CKD in a setting of longstanding hypertension and diabetes mellitus. Recently she had an episode of gout. This was treated with prednisone. No uric acid levels are available. She has persistent hypercalcemia 09/23/23 Recently she had an episode of vertigo She was seen in the ER. Subsequently she was found to have swelling in the epiglottis area. This was thought to be angioedema due to EMELIA inhibitor. Benazepril was discontinued. Swelling is resolved. She was having nausea and epigastric discomfort and was readmitted to [facility] she was initially diagnosed with pancreatitis. She had persistent hypomagnesemia. Proton pump inhibitor was discontinued. She is on magnesium supplementation. Over the last few days she thought the nausea was related to the cinacalcet. She is stopped cinacalcet 2 days ago and the nausea has improved. During the workup she was found to have a lung nodule. She is being followed by Dr. Tamez PET scan showed benign lesion 01/07/24 Doing OK Pacemaker was changed MgO was decreased to 2 a day from 3 05/18/24 Persistent hypomagnesemia she has not taken the increased dose of Cinacalcet yet 08/04/2024. Seen by Dr. Avila; Recently magnesium was 1.4. Magnesium supplementation has been increased by 250 mg to a total of 12 50 mg. Cinacalcet has been decreased by PCP to every other day. She is yet to decide about possible surgery 11/09/24 The patient is an 78-year-old female seen in follow up for CKD and hypercalcemia. She isn Cinacalcet 3x week. c/o dyspnea and fatigue. She reports experiencing shortness of breath that began this evening, which she describes as feeling like pressure when breathing. This symptom occurs periodically, and today is one of those days. The patient has a history of heart failure, with recent echocardiogram results indicating a slight decrease in cardiac function compared to a year ago. There is a consideration for adding another lead to her pacemaker, with a follow-up appointment scheduled for February 08. She also has a history of hypercalcemia, with calcium levels consistently around 11 mg/dL for the past ten years. The campus manager is monitoring The patient has mild anemia, Her kidney function remains stable, with no significant changes noted. She has been taking cinacalcet every other day for hyperparathyroidism, with parathyroid hormone levels slightly elevated but stable over the past year and a half. The patient experiences peripheral edema, particularly at night, which subsides by morning. This is possibly exacerbated by amlodipine, which she is currently taking. [facility] Medical History (Updated 11/09/24 @ 14:26 by Arsen Villegas MD) Pacemaker at end of battery life Elevated lipase Mass of left lung AV block Type 2 diabetes mellitus with unspecified complications Pacemaker Hypercholesteremia GERD (gastroesophageal reflux disease) Hypothyroid Hypertension Surgical History History of tonsillectomy H/O total knee replacement H/O: hysterectomy Hx of cholecystectomy Family History Mother HTN (hypertension) Heart attack Father No problems noted. Maternal Grandmother Breast cancer Social History Household Members: Spouse Housing: House Do you presently have visiting nurse or other home services: No Alcohol intake: current Alcohol intake frequency: holidays/special occasions only Patient Tobacco Use Status: Never used Tobacco Advance Directives Date on File: 08/13/23 service: No Physical Exam Vital Signs: Last Vital Signs Pulse 50 11/09/24 14:06 BP 130/70 11/09/24 14:06 Pulse Ox 96 11/09/24 14:06 Oxygen Delivery Method Room Air 11/09/24 14:06 BMI result Body Mass Index 37.5 Comfortable Neck supple no JVD. Lungs entry equal no rales. Heart S1-S2 heard no gallop or rub. Abdomen soft nontender. Neuro alert awake oriented. No asterixis. Extremities 1+ edema. Results Reviewed Nephrology Results: Sodium, (135-145) 141 mmol/L 10/20/24 Potassium, (3.3-5.1) 4.1 mmol/L 10/20/24 Chloride, (96-108) 106 mmol/L 10/20/24 Carbon Dioxide, (22-29) 27 mmol/L 10/20/24 BUN, (9-16) 32 mg/dL H 10/20/24 Creatinine, (0.5-1.4) 1.17 mg/dL 10/20/24 Calcium, (8.4-10.2) 11.0 mg/dL H 10/20/24 PTH Intact, (8.7-77.1) 236.7 pg/mL H 10/20/24 Assessment & Plan Assessment & Plan (1) Hyperparathyroidism: Code(s): E21.3 - Hyperparathyroidism, unspecified Category: Medical Plan: Parathryoid scan shows adenoma Persistent Hypercalcemia and hypomagnesemia while on Cinacalcet Seen by Dr. Avila For now she will stay on cinacalcet every other day along with magnesium supplementation. Follow up with Wound Treatment Rn (2) CKD (chronic kidney disease): Code(s): N18.9 - Chronic kidney disease, unspecified Category: Medical Plan: CKD 3 Stable (3) Essential hypertension: Code(s): I10 - Essential (primary) hypertension Category: Medical Plan: Blood pressure is well controlled No changes were made to medications low-salt diet . (4) Anemia: Code(s): D64.9 - Anemia, unspecified Category: Medical Plan: Multifactorial Most likely due to CKD r/o Iron Deficiency Plan There is no absolute contraindication for IV contrast if she needs 1. Recent serum creatinine was 1.05 mg/dL. Orders: Orders Basic Metabolic Panel 6 Weeks E83.52 - Hypercalcemia, N18.9 - Chronic kidney disease, unspecified Magnesium 6 Weeks E83.52 - Hypercalcemia, N18.9 - Chronic kidney disease, unspecified IRON PROFILE 6 Weeks E83.52 - Hypercalcemia, N18.9 - Chronic kidney disease, unspecified Complete Blood Count no Diff 6 Weeks E83.52 - Hypercalcemia, N18.9 - Chronic kidney disease, unspecified Ferritin 6 Weeks E83.52 - Hypercalcemia, N18.9 - Chronic kidney disease, unspecified Coding Level of Care Code Est Pt Level 4 (14619) Diagnoses Hyperparathyroidism E21.3 CKD (chronic kidney disease) N18.9 Essential hypertension I10 Anemia D64.9
--- OUTSIDE RECORDS SUMMARY | 2024-11-09 14:39 | XMS_ITS | Data Portability ---
Author Organization [facility], [facility] Address [address] [place] [address] Care Team Providers Care Cancer Registrar Name Role Phone JOANNE FITZGERALD OTHER [phone] JAMAAL HAM [employer] JACOBO ABAD Primary Care Provider Assessment Encounter [...] HR URINE (2018) Creatinine Clearance....... ................ ................ .[id number].... ................ ................ ....>80 Phosphorus Clearance....... ................ ..............11 .[id number]....... ................ ................ .5 to 15 Tubular Reabsorption of Phosphorus...... ..80.66611720... ................ ................ .....82-97% Calcium/Creatini ne Clearance....... ................ ..[id number]... ................ ................ ...<0.01 [facility] Low Ca/Creat clearance and TRP are [facility] REPEAT 24 hr urine (07/07): VOL= 980cc Calcium= 0.065 (07/07) Phos= 0.4375 creat= 0.98 (07/07) Creatinine Clearance....... ................ ................ .52.88723648 >80 Phosphorus Clearance....... ................ ................ [id number] 5 to 15 Tubular Reabsorption of Phosphorus...... ..81.90851411 82-97% Calcium/Creatini ne Clearance....... ................ .0.559874023 <0.01 [facility] SUMMARY: Ca= 10.7 (09/01/24 per [...] magnesium , serum or plasma 2024 025 [facility] [address], [place], [address], 09/10/2024 10:13:21 renal function panel, serum [address] [facility], [address], [place], [address], 07/10/2024 12:02:11 vitamin D, 25-hydrox y, total, serum [address] [facility], [address], [place], [address], 07/10/2024 12:18:59 PTH (parathyr oid hormone), intact + calcium, serum or plasma 2024 025 [facility], [address], [place], [address], 06/16/2024 13:10:32 calcium, 24-hour urine [address] [facility], [address], [place], [address], 07/10/2024 13:00:44 creatinin e, 24-hour urine [address] [facility], [address], [place], [address], 07/10/2024 13:00:45 phosphoru s, 24-hour urine [address] [facility], [address], [place], [address], 07/10/2024 13:00:48 volume, total, 24-hour urine 2024 025 [facility], [address], [place], [address], 06/16/2024 13:10:32 CASR gene full mutation analysis, blood or tissue 2024 025 [facility], [address], [place], [address], 06/30/2024 13:10:31 vitamin D, 25-hydrox y, total, serum 2019 021 [facility], [address], [place], [address], 02/02/2021 11:16:20 HbA1c (hemoglob in A1c), blood 2019 020 [facility], [address], [place], [address], 09/02/2020 13:55:20 CMP, serum or plasma 2019 021 [facility], [address], [place], [address], 09/02/2020 11:43:26 CMP, serum or plasma 2020 021 [facility], [address], [place], [address], 02/02/2021 11:26:12 HbA1c (hemoglob in A1c), blood 2020 021 [facility], [address], [place], [address], 02/02/2021 10:57:24 TSH, serum or plasma 2019 021 [facility], [address], [place], [address], 02/02/2021 11:26:16 T4, free, serum 2019 021 [facility], [address], [place], [address], 02/02/2021 11:26:14 HbA1c (hemoglob in A1c), blood 2018 019 [facility], [address], [place], [address], 06/12/2019 15:32:59 CMP, serum or plasma 2018 019 [facility], [address], [place], [address], 06/12/2019 16:09:37 TSH, serum or plasma 2018 [facility], [address], [place], [address], 06/12/2019 16:09:40 T4, free, serum 2018 [facility], [address], [place], [address], 06/12/2019 16:09:39 Referral None recorded. Procedures None recorded. Surgeries None recorded. Imaging None recorded. Medication Orders levothyro xine 75 mcg tablet 2020 021 [id number], [address] [facility], [place], [address], 06/16/2024 11:33:34 Patient TargetsNo targets recorded. Patient Instructions Encounter Date Encounter Id Patient Instructions Last Modified By Organization Details Last Modified Time 03/27/2019 [id number] - Get labs done beginning in May [...] feet [email or web address] Not available 03/27/2019 11:29:50 04/01/2020 [id number] - Get labs done beginning in May [...] PCP. [email or web address] Not available 04/01/2020 09:43:27 04/05/2021 [id number] - Continue taking thyroid hormone every day [...] [email or web address] Not availabl e 04/05/2021 22:02:24 06/16/2024 [id number] - Continue taking thyroid hormone every day [...] 2024) [email or web address] Not available 06/16/2024 12:53:12 09/08/2024 [id number] - Continue taking thyroid hormone every day [...] cient in vitam in D. Refer ence: [facility] Data Brief : No.59 July: Vitam in D Statu s: Unite [place] s: 2000- 2005 Not Available [facility] (Centralized Electronic Ordering - All Locations) Patient Can Go To The Location Of Their Choice, [id number] 03/23/2019 18:54:58 03/23/2003/23/2019 renal funct ion panel , serum glucose 84 mg/dL (70-99 ) Not Available [facility] (Centralized Electronic Ordering - All Locations) Patient Can Go To The Location Of Their Choice, [id number] 03/23/2019 19:05:49 03/23/2003/23/2019 renal funct ion panel , serum BUN 24 mg/dL (8-23) high Not Available [facility] (Centralized Electronic Ordering - All Locations) Patient Can Go To The Location Of Their Choice, [id number] 03/23/2019 19:05:49 03/23/2003/23/2019 renal funct ion panel , serum creatinine 1.5 mg/dL (0.5-1 .0) high Not Available [facility] (Centralized Electronic Ordering - All Locations) Patient Can Go To The Location Of Their Choice, [id number] 03/23/2019 19:05:49 03/23/2003/23/2019 renal funct ion panel , serum sodium 141 mmol/ L (133-1 45) Not Available [facility] (Centralized Electronic Ordering - All Locations) Patient Can Go To The Location Of Their Choice, [id number] 03/23/2019 19:05:49 03/23/2003/23/2019 renal funct ion panel , serum potassium 4.9 mmol/ L (3.6-5 .2) Not Available [facility] (Centralized Electronic Ordering - All Locations) Patient Can Go To The Location Of Their Choice, [id number] 03/23/2019 19:05:49 03/23/2003/23/2019 renal funct ion panel , serum chloride 104 mmol/ L (98-10 7) Not Available [facility] (Centralized Electronic Ordering - All Locations) Patient Can Go To The Location Of Their Choice, [id number] 03/23/2019 19:05:49 03/23/2003/23/2019 renal funct ion panel , serum bicarbonate 25 mmol/ L (22-29 ) Not Available [facility] (Centralized Electronic Ordering - All Locations) Patient Can Go To The Location Of Their Choice, [id number] 03/23/2019 19:05:49 03/23/2003/23/2019 renal funct ion panel , serum anion gap 12 (4-17) Not Available [facility] (Centralized Electronic Ordering - All Locations) Patient Can Go To The Location Of Their Choice, [id number] 03/23/2019 19:05:49 03/23/2003/23/2019 renal funct ion panel , serum albumin 4.2 gm/dL (3.4-4 .8) Not Available [facility] (Centralized Electronic Ordering - All Locations) Patient Can Go To The Location Of Their Choice, [id number] 03/23/2019 19:05:49 03/23/2003/23/2019 renal funct ion panel , serum calcium 10.9 mg/dL (8.6-1 0.5) high Not Available [facility] (Centralized Electronic Ordering - All Locations) Patient Can Go To The Location Of Their Choice, [id number] 03/23/2019 19:05:49 03/23/2003/23/2019 renal funct ion panel , serum phosphorus 3.2 mg/dL (2.5-4 .5) Not Available [facility] (Centralized Electronic Ordering - All Locations) Patient Can Go To The Location Of Their Choice, [id number] 03/23/2019 19:05:49 03/23/2003/23/2019 renal funct ion panel [...] Go To The Location Of Their Choice, [id number] 03/23/2019 19:05:49 03/23/2003/23/2019 renal funct ion panel [...] Go To The Location Of Their Choice, [id number] 03/23/2019 19:05:49 03/23/2003/27/2019 TSH, serum or plasm a TSH 1.05 mIU/m L (0.40- 4.00) Not Available [facility] (Centralized Electronic Ordering - All Locations) Patient Can Go To The Location Of Their Choice, [id number] 03/27/2019 20:19:23 06/12/19 20 06/12/2019 HbA1c (hemo globi n A1c), blood hemoglobin A1C 6.3 % 4.3-5. 8 high Not Available [facility] (Outpatient) [address] [place], [address], 06/12/2019 15:32:59 06/12/19 20 06/12/2019 lipid panel [...] rs, e.g. becki ashford, delfino ayala, hormharjinder arnaud, sex and age. Not Available [facility] (Outpatient) [address] [place], [address], 06/12/2019 15:58:07 06/12/19 20 06/12/2019 lipid panel , blood cholesterol 176 mg/dL 0-240 Not Available [facility] (Outpatient) [address] [place], [address], 06/12/2019 15:58:07 06/12/19 20 06/12/2019 lipid panel , blood triglyceride s 199 mg/dL 30-160 high Not Available [facility] (Outpatient) [address] [place], [address], 06/12/2019 15:58:07 06/12/19 20 06/12/2019 lipid panel , blood LDL 98 mg/dL 50-129 LDL level s in terms of risk for coron amol heart disea se: <100 mg/dL : Optim al 100-1 29 mg/dL : Near or above optim al 130-1 59 mg/dL : Alyse jacobo high 160-1 89 mg/dL : High >190 mg/dL : Very High Not Available [facility] (Outpatient) [address] [place], [address], 06/12/2019 15:58:07 06/12/19 20 06/12/2019 lipid panel , blood cardiac risk ratio 4.6 3.3-4. 4 high Not Available [facility] (Outpatient) [address] [place], [address], 06/12/2019 15:58:07 06/12/19 20 06/12/2019 micro album in/cr eatin ine, mass ratio , urine urine microalbumin <1.2 mg/dL 0-2.3 Not Available [facility] (Outpatient) [address] [place], [address], 06/12/2019 16:00:19 06/12/19 20 06/12/2019 micro album in/cr eatin ine, mass ratio , urine urine creatinine 58 mg/dL Not Available [facility] (Outpatient) [address] [place], [address], 06/12/2019 16:00:19 06/12/19 20 06/12/2019 micro album in/cr eatin ine, mass ratio , urine microalb/cre ratio NOT CALCUL ATED mg/g_ cre 0-20 due to Micro album in <1.2 Not Available [facility] (Outpatient) [address] [place], [address], 06/12/2019 16:00:19 06/12/19 20 06/12/2019 CMP, serum or plasm a sodium 139 mmol/ L 133-14 6 Not Available [facility] (Outpatient) [address] [place], [address], 06/12/2019 16:09:37 06/12/19 20 06/12/2019 CMP, serum or plasm a potassium 4.8 mmol/ L 3.3-5. 1 Not Available [facility] (Outpatient) [address] [place], [address], 06/12/2019 16:09:37 06/12/19 20 06/12/2019 CMP, serum or plasm a chloride 103 mmol/ L 96-108 Not Available [facility] (Outpatient) [address] [place], [address], 06/12/2019 16:09:37 06/12/19 20 06/12/2019 CMP, serum or plasm a CO2 23 mmol/ L 21-35 Not Available [facility] (Outpatient) [address] [place], [address], 06/12/2019 16:09:37 06/12/19 20 06/12/2019 CMP, serum or plasm a BUN 21 mg/dL 6-19 high Not Available [facility] (Outpatient) [address] [place], [address], 06/12/2019 16:09:37 06/12/19 20 06/12/2019 CMP, serum or plasm a creatinine 1.20 mg/dL 0.5-1. 5 Not Available [facility] (Outpatient) [address] [place], [address], 06/12/2019 16:09:37 06/12/19 20 06/12/2019 CMP, serum or plasm a glucose 116 mg/dL 70-99 high Not Available [facility] (Outpatient) [address] [place], [address], 06/12/2019 16:09:37 06/12/19 20 06/12/2019 CMP, serum or plasm a albumin 4.4 g/dL 3.9-4. 8 Not Available [facility] (Outpatient) [address] [place], [address], 06/12/2019 16:09:37 06/12/19 20 06/12/2019 CMP, serum or plasm a total protein 7.7 g/dL 6.5-8. 0 Not Available [facility] (Outpatient) [address] [place], [address], 06/12/2019 16:09:37 06/12/19 20 06/12/2019 CMP, serum or plasm a calcium 10.9 mg/dL 8.4-10 .3 high Not Available [facility] (Outpatient) [address] [place] [address], [address], 06/12/2019 16:09:37 06/12/19 20 06/12/2019 CMP, serum or plasm a alkaline phosphatase 61 U/L 39-117 Not Available [facility] (Outpatient) [address] [place], [address], 06/12/2019 16:09:37 06/12/19 20 06/12/2019 CMP, serum or plasm a total bilirubin 0.2 mg/dL 0.0-1. 2 Not Available [facility] (Outpatient) [address] [place], [address], 06/12/2019 16:09:37 06/12/19 20 06/12/2019 CMP, serum or plasm a AST 22 U/L 0-37 Not Available [facility] (Outpatient) [address] [place], [address], 06/12/2019 16:09:37 06/12/19 20 06/12/2019 CMP, serum or plasm a ALT 9 U/L 0-40 Not Available [facility] (Outpatient) [address] [place] [address], [address], 06/12/2019 16:09:37 06/12/19 20 06/12/2019 CMP, serum or plasm a globulin 3.3 g/dL 1-4.8 Not Available [facility] (Outpatient) [address] [place] [address], [address], 06/12/2019 16:09:37 06/12/19 20 06/12/2019 CMP, serum or plasm a eGFR 44 mL/mi n/1.7 3m2 >59 low If patie nt is black , multi ply resul t by 1.159 . Estim ated glome rular filtr ation rate calcu lated using the CKD-E PI equat ion. Not Available [facility] (Outpatient) [address] [place], [address], 06/12/2019 16:09:37 06/12/19 20 06/12/2019 CMP, serum or plasm a anion gap 18 mmol/ L 10-20 Not Available [facility] (Outpatient) [address] [place], [address], 06/12/2019 16:09:37 06/12/19 20 06/12/2019 T4, free, serum free T4 1.4 NG/dL 0.9-1. 7 Not Available [facility] (Outpatient) [address] [place], [address], 06/12/2019 16:09:39 06/12/19 20 06/12/2019 TSH, serum or plasm a TSH 1.12 uIU/m L 0.27-4 .20 Not Available [facility] (Outpatient) [address] [place], [address], 06/12/2019 16:09:40 01/21/20 20 01/21/2020 HbA1c (hemo globi n A1c), blood hemoglobin A1C 6.1 % 4.3-5. 8 high Not Available [facility] (Outpatient) [address] [place], [address], 01/21/2020 11:26:48 01/21/20 20 01/21/2020 lipid panel [...] a numbe r of facto rs, e.g. smoki ng, excer ise, hormo arnaud, sex and age. Not Available [facility] (Outpatient) [address] [place], [address], 01/21/2020 11:36:33 01/21/20 20 01/21/2020 lipid panel , blood cholesterol 163 mg/dL 0-240 Not Available [facility] (Outpatient) [address] [place], [address], 01/21/2020 11:36:33 01/21/20 20 01/21/2020 lipid panel , blood triglyceride s 289 mg/dL 30-160 high Not Available [facility] (Outpatient) [address] [place], [address], 01/21/2020 11:36:33 01/21/20 20 01/21/2020 lipid panel , blood LDL 69 mg/dL 50-129 LDL level s in terms of risk for coron amol heart disea se: <100 mg/dL : Optim al 100-1 29 mg/dL : Near or above optim al 130-1 59 mg/dL : Borde rline high 160-1 89 mg/dL : High >190 mg/dL : Very High Not Available [facility] (Outpatient) [address] [place], [address], 01/21/2020 11:36:33 01/21/20 20 01/21/2020 lipid panel , blood cardiac risk ratio 4.5 3.3-4. 4 high Not Available [facility] (Outpatient) [address] [place], [address], 01/21/2020 11:36:33 01/21/20 20 01/21/2020 vitam in D, 25-hy droxy , total , serum 25 oh vit D (total) 37 NG/mL 30-60 Not Available [facility] (Outpatient) [address] [place], [address], 01/21/2020 11:50:58 01/21/20 20 01/21/2020 CMP, serum or plasm a sodium 137 mmol/ L 133-14 6 Not Available [facility] (Outpatient) [address] [place], [address], 01/21/2020 11:51:29 01/21/20 20 01/21/2020 CMP, serum or plasm a potassium 5.0 mmol/ L 3.3-5. 1 Not Available [facility] (Outpatient) [address] [place], [address], 01/21/2020 11:51:29 01/21/20 20 01/21/2020 CMP, serum or plasm a chloride 105 mmol/ L 96-108 Not Available [facility] (Outpatient) [address] [place], [address], 01/21/2020 11:51:29 01/21/2001/21/2020 CMP, serum or plasm a CO2 21 mmol/ L 21-35 Not Available [facility] (Outpatient) [address] [place], [address], 01/21/2020 11:51:29 01/21/2001/21/2020 CMP, serum or plasm a BUN 27 mg/dL 6-19 high Not Available [facility] (Outpatient) [address] [place], [address], 01/21/2020 11:51:29 01/21/2001/21/2020 CMP, serum or plasm a creatinine 1.50 mg/dL 0.5-1. 5 Not Available [facility] (Outpatient) [address] [place], [address], 01/21/2020 11:51:29 01/21/2001/21/2020 CMP, serum or plasm a glucose 129 mg/dL 70-99 high Not Available [facility] (Outpatient) [address] [place], [address], 01/21/2020 11:51:29 01/21/2001/21/2020 CMP, serum or plasm a albumin 4.3 g/dL 3.9-4. 8 Not Available [facility] (Outpatient) [address] [place], [address], 01/21/2020 11:51:29 01/21/20 20 01/21/2020 CMP, serum or plasm a total protein 7.3 g/dL 6.5-8. 0 Not Available [facility] (Outpatient) [address] [place], [address], 01/21/2020 11:51:29 01/21/20 20 01/21/2020 CMP, serum or plasm a calcium 11.2 mg/dL 8.4-10 .3 high Not Available [facility] (Outpatient) [address] [place], [address], 01/21/2020 11:51:29 01/21/20 20 01/21/2020 CMP, serum or plasm a alkaline phosphatase 48 U/L 39-117 Not Available [facility] (Outpatient) [address] [place], [address], 01/21/2020 11:51:29 01/21/20 20 01/21/2020 CMP, serum or plasm a total bilirubin 0.3 mg/dL 0.0-1. 2 Not Available [facility] (Outpatient) [address] [place], [address], 01/21/2020 11:51:29 01/21/20 20 01/21/2020 CMP, serum or plasm a AST 15 U/L 0-37 Not Available [facility] (Outpatient) [address] [place], [address], 01/21/2020 11:51:29 01/21/2001/21/2020 CMP, serum or plasm a ALT 6 U/L 0-40 Not Available [facility] (Outpatient) [address] [place], [address], 01/21/2020 11:51:29 01/21/2001/21/2020 CMP, serum or plasm a globulin 3.0 g/dL 1-4.8 Not Available [facility] (Outpatient) [address] [place], [address], 01/21/2020 11:51:29 01/21/20 20 01/21/2020 CMP, serum or plasm a eGFR 33 mL/mi n/1.7 3m2 >59 low Estim ated glome rular filtr ation rate calcu lated using the CKD-E PI equat ion. Not Available [facility] (Outpatient) [address] [place], [address], 01/21/2020 11:51:29 01/21/20 20 01/21/2020 CMP, serum or plasm a anion gap 16 mmol/ L 10-20 Not Available [facility] (Outpatient) [address] [place], [address], 01/21/2020 11:51:29 01/21/20 20 01/21/2020 T4, free, serum free T4 1.1 NG/dL 0.9-1. 7 Not Available [facility] (Outpatient) [address] [place], [address], 01/21/2020 11:51:31 01/21/2001/21/2020 TSH, serum or plasm a TSH 1.88 uIU/m L 0.27-4 .20 Not Available [facility] (Outpatient) [address] [place], [address], 01/21/2020 11:51:33 01/21/20 20 01/21/2020 micro album in/cr eatin ine, mass ratio , urine urine microalbumin <1.2 mg/dL 0-2.3 Not Available [facility] (Outpatient) [address] [place], [address], 01/21/2020 16:09:45 01/21/20 20 01/21/2020 micro album in/cr eatin ine, mass ratio , urine urine creatinine 83 mg/dL Not Available [facility] (Outpatient) [address] [place], [address], 01/21/2020 16:09:45 01/21/20 20 01/21/2020 micro album in/cr eatin ine, mass ratio , urine microalb/cre ratio NOT CALCUL ATED mg/g_ cre 0-20 due to Micro album in <1.2 Not Available [facility] (Outpatient) [address] [place], [address], 01/21/2020 16:09:45 09/03/19 21 09/02/2020 CMP, serum or plasm a sodium 139 mmol/ L 133-14 6 Not Available [facility] (Outpatient) [address] [place], [address], 09/02/2020 11:43:26 09/03/19 21 09/02/2020 CMP, serum or plasm a potassium 5.3 mmol/ L 3.3-5. 1 high Not Available [facility] (Outpatient) [address] [place], [address], 09/02/2020 11:43:26 09/03/19 21 09/02/2020 CMP, serum or plasm a chloride 106 mmol/ L 96-108 Not Available [facility] (Outpatient) [address] [place], [address], 09/02/2020 11:43:26 09/03/19 21 09/02/2020 CMP, serum or plasm a CO2 23 mmol/ L 21-35 Not Available [facility] (Outpatient) [address] [place], [address], 09/02/2020 11:43:26 09/03/19 21 09/02/2020 CMP, serum or plasm a BUN 26 mg/dL 6-19 high Not Available [facility] (Outpatient) [address] [place], [address], 09/02/2020 11:43:26 09/03/19 21 09/02/2020 CMP, serum or plasm a creatinine 1.40 mg/dL 0.5-1. 5 Not Available [facility] (Outpatient) [address] [place], [address], 09/02/2020 11:43:26 09/03/19 21 09/02/2020 CMP, serum or plasm a glucose 114 mg/dL 70-99 high Not Available [facility] (Outpatient) [address] [place], [address], 09/02/2020 11:43:26 09/03/19 21 09/02/2020 CMP, serum or plasm a albumin 4.3 g/dL 3.9-4. 8 Not Available [facility] (Outpatient) [address] [place], [address], 09/02/2020 11:43:26 09/03/19 21 09/02/2020 CMP, serum or plasm a total protein 7.6 g/dL 6.5-8. 0 Not Available [facility] (Outpatient) [address] [place], [address], 09/02/2020 11:43:26 09/03/19 21 09/02/2020 CMP, serum or plasm a calcium 10.7 mg/dL 8.4-10 .3 high Not Available [facility] (Outpatient) [address] [place], [address], 09/02/2020 11:43:26 09/03/19 21 09/02/2020 CMP, serum or plasm a alkaline phosphatase 56 U/L 39-117 Not Available [facility] (Outpatient) [address] [place], [address], 09/02/2020 11:43:26 09/03/19 21 09/02/2020 CMP, serum or plasm a total bilirubin 0.2 mg/dL 0.0-1. 2 Not Available [facility] (Outpatient) [address] [place], [address], 09/02/2020 11:43:26 09/03/19 21 09/02/2020 CMP, serum or plasm a AST 16 U/L 0-37 Not Available [facility] (Outpatient) [address] [place] [address], [address], 09/02/2020 11:43:26 09/03/19 21 09/02/2020 CMP, serum or plasm a ALT 7 U/L 0-40 Not Available [facility] (Outpatient) [address] [place], [address], 09/02/2020 11:43:26 09/03/19 21 09/02/2020 CMP, serum or plasm a globulin 3.3 g/dL 1-4.8 Not Available [facility] (Outpatient) [address] [place] [address], [address], 09/02/2020 11:43:26 09/03/19 21 09/02/2020 CMP, serum or plasm a eGFR 36 mL/mi n/1.7 3m2 >59 low Estim ated glome rular filtr ation rate calcu lated using the CKD-E PI equat ion. Not Available [facility] (Outpatient) [address] [place], [address], 09/02/2020 11:43:26 09/03/19 21 09/02/2020 CMP, serum or plasm a anion gap 15 mmol/ L 10-20 Not Available [facility] (Outpatient) [address] [place] [address], [address], 09/02/2020 11:43:26 09/03/19 21 09/02/2020 lipid panel [...] r of facto rs, e.g. becki ashford, dustinr ise, hormo arnaud, sex and age. Not Available [facility] (Outpatient) [address] [place], [address], 09/02/2020 12:00:24 09/03/19 21 09/02/2020 lipid panel , blood cholesterol 139 mg/dL 0-240 Not Available [facility] (Outpatient) [address] [place], [address], 09/02/2020 12:00:24 09/03/19 21 09/02/2020 lipid panel , blood triglyceride s 164 mg/dL 30-160 high Not Available [facility] (Outpatient) [address] [place], [address], 09/02/2020 12:00:24 09/03/19 21 09/02/2020 lipid panel , blood LDL 68 mg/dL 50-129 LDL level s in terms of risk for coron amol heart disea se: <100 mg/dL : Optim al 100-1 29 mg/dL : Near or above optim al 130-1 59 mg/dL : Borde rline high 160-1 89 mg/dL : High >190 mg/dL : Very High Not Available [facility] (Outpatient) [address] [place], [address], 09/02/2020 12:00:24 09/03/1909/02/2020 lipid panel , blood cardiac risk ratio 3.7 3.3-4. 4 Not Available [facility] (Outpatient) [address] [place], [address], 09/02/2020 12:00:24 09/03/1909/02/2020 HbA1c (hemo globi n A1c), blood hemoglobin A1C 6.2 % 4.3-5. 8 high Not Available [facility] (Outpatient) [address] [place], [address], 09/02/2020 13:55:19 09/07/19 21 09/06/2020 micro album in/cr eatin ine, mass ratio , urine urine microalbumin <1.2 mg/dL 0-2.3 Not Available [facility] (Outpatient) [address] [place], [address], 09/06/2020 18:43:58 09/07/19 21 09/06/2020 micro album in/cr eatin ine, mass ratio , urine urine creatinine 34 mg/dL Not Available [facility] (Outpatient) [address] [place], [address], 09/06/2020 18:43:58 09/07/19 21 09/06/2020 micro album in/cr eatin ine, mass ratio , urine microalb/cre ratio NOT CALCUL ATED mg/g_ cre 0-20 due to Micro album in <1.2 Not Available [facility] (Outpatient) [address] [place], [address], 09/06/2020 18:43:58 02/03/20 21 02/02/2021 HEMOG LOBIN A1C hemoglobin A1C 6.1 % 4.3-5. 8 high Not Available [facility] (Outpatient) [address] [place], [address], 02/02/2021 10:57:24 02/03/20 21 02/02/2021 LIPID PANEL [...] hormo arnaud, sex and age. Not Available [facility] (Outpatient) [address] [place], [address], 02/02/2021 11:05:04 02/03/20 21 02/02/2021 LIPID PANEL cholesterol 159 mg/dL 0-240 Not Available [facility] (Outpatient) [address] [place], [address], 02/02/2021 11:05:04 02/03/20 21 02/02/2021 LIPID PANEL triglyceride s 247 mg/dL 30-160 high Not Available [facility] (Outpatient) [address] [place], [address], 02/02/2021 11:05:04 02/03/20 21 02/02/2021 LIPID PANEL LDL 74 mg/dL 50-129 LDL level s in terms of risk for coron amol heart disea se: <100 mg/dL : Optim al 100-1 29 mg/dL : Near or above optim al 130-1 59 mg/dL : Borde rline high 160-1 89 mg/dL : High >190 mg/dL : Very High Not Available [facility] (Outpatient) [address] [place], [address], 02/02/2021 11:05:04 02/03/20 21 02/02/2021 LIPID PANEL cardiac risk ratio 4.4 3.3-4. 4 Not Available [facility] (Outpatient) [address] [place], [address], 02/02/2021 11:05:04 02/03/20 21 02/02/2021 25-OH VITAM IN D 25 oh vit D (total) 34 NG/mL 30-60 Not Available [facility] (Outpatient) [address] [place], [address], 02/02/2021 11:16:20 02/03/20 21 02/02/2021 COMPR EHENS FORTINO METAB OLIC PANEL sodium 138 mmol/ L 133-14 6 Not Available [facility] (Outpatient) [address] [place], [address], 02/02/2021 11:26:12 02/03/20 21 02/02/2021 COMPR EHENS FORTINO METAB OLIC PANEL potassium 5.2 mmol/ L 3.3-5. 1 high Not Available [facility] (Outpatient) [address] [place], [address], 02/02/2021 11:26:12 02/03/20 21 02/02/2021 COMPR EHENS FORTINO METAB OLIC PANEL chloride 107 mmol/ L 96-108 Not Available [facility] (Outpatient) [address] [place], [address], 02/02/2021 11:26:12 02/03/20 21 02/02/2021 COMPR EHENS FORTINO METAB OLIC PANEL CO2 21 mmol/ L 21-35 Not Available [facility] (Outpatient) [address] [place], [address], 02/02/2021 11:26:12 02/03/20 21 02/02/2021 COMPR EHENS FORTINO METAB OLIC PANEL BUN 28 mg/dL 6-19 high Not Available [facility] (Outpatient) [address] [place], [address], 02/02/2021 11:26:12 02/03/20 21 02/02/2021 COMPR EHENS FORTINO METAB OLIC PANEL creatinine 1.50 mg/dL 0.5-1. 5 Not Available [facility] (Outpatient) [address] [place], [address], 02/02/2021 11:26:12 02/03/20 21 02/02/2021 COMPR EHENS FORTINO METAB OLIC PANEL glucose 117 mg/dL 70-99 high Not Available [facility] (Outpatient) [address] [place], [address], 02/02/2021 11:26:12 02/03/20 21 02/02/2021 COMPR EHENS FORTINO METAB OLIC PANEL albumin 4.3 g/dL 3.9-4. 8 Not Available [facility] (Outpatient) [address] [place], [address], 02/02/2021 11:26:12 02/03/20 21 02/02/2021 COMPR EHENS FORTINO METAB OLIC PANEL total protein 7.2 g/dL 6.5-8. 0 Not Available [facility] (Outpatient) [address] [place], [address], 02/02/2021 11:26:12 02/03/20 21 02/02/2021 COMPR EHENS FORTINO METAB OLIC PANEL calcium 11.1 mg/dL 8.4-10 .3 high Not Available [facility] (Outpatient) [address] [place], [address], 02/02/2021 11:26:12 02/03/20 21 02/02/2021 COMPR EHENS FORTINO METAB OLIC PANEL alkaline phosphatase 56 U/L 39-117 Not Available [facility] (Outpatient) [address] [place], [address], 02/02/2021 11:26:12 02/03/20 21 02/02/2021 COMPR EHENS FORTINO METAB OLIC PANEL total bilirubin 0.3 mg/dL 0.0-1. 2 Not Available [facility] (Outpatient) [address] [place], [address], 02/02/2021 11:26:12 02/03/20 21 02/02/2021 COMPR EHENS FORTINO METAB OLIC PANEL AST 14 U/L 0-37 Not Available [facility] (Outpatient) [address] [place], [address], 02/02/2021 11:26:12 02/03/20 21 02/02/2021 COMPR EHENS FORTINO METAB OLIC PANEL ALT 8 U/L 0-40 Not Available [facility] (Outpatient) [address] [place], [address], 02/02/2021 11:26:12 02/03/20 21 02/02/2021 COMPR EHENS FORTINO METAB OLIC PANEL globulin 2.9 g/dL 1-4.8 Not Available [facility] (Outpatient) [address] [place], [address], 02/02/2021 11:26:12 02/03/20 21 02/02/2021 COMPR EHENS FORTINO METAB OLIC PANEL eGFR 33 mL/mi n/1.7 3m2 >59 low Estim ated glome rular filtr ation rate calcu lated using the CKD-E PI equat ion. Not Available [facility] (Outpatient) [address] [place], [address], 02/02/2021 11:26:12 02/03/20 21 02/02/2021 COMPR EHENS FORTINO METAB OLIC PANEL anion gap 15 mmol/ L 10-20 Not Available [facility] (Outpatient) [address] [place], [address], 02/02/2021 11:26:12 02/03/20 21 02/02/2021 FREE T4 free T4 1.4 NG/dL 0.9-1. 7 Not Available [facility] (Outpatient) [address] [place], [address], 02/02/2021 11:26:14 02/03/20 21 02/02/2021 TSH TSH 0.91 uIU/m L 0.27-4 .20 Not Available [facility] (Outpatient) [address] [place], [address], 02/02/2021 11:26:15 02/03/20 21 02/02/2021 MICRO ALBUM IN/CR EATIN INE RATIO , RANDO M URINE urine microalbumin <1.2 mg/dL 0-2.3 Not Available [facility] (Outpatient) [address] [place] [address], [address], 02/02/2021 17:50:10 02/03/20 21 02/02/2021 MICRO ALBUM IN/CR EATIN INE RATIO , RANDO M URINE urine creatinine 97 mg/dL Not Available [facility] (Outpatient) [address] [place], [address], 02/02/2021 17:50:10 02/03/20 21 02/02/2021 MICRO ALBUM IN/CR EATIN INE RATIO , RANDO M URINE microalb/cre ratio NOT CALCUL ATED mg/g_ cre 0-20 due to Micro album in <1.2 Not Available [facility] (Outpatient) [address] [place], [address], 02/02/2021 17:50:10 07/09/19 25 07/10/2024 TIMED URINE DATA collection data 24 Not Available [facility] (Outpatient) [address] [place], [address], 07/10/2024 11:40:28 07/09/19 25 07/10/2024 TIMED URINE DATA total volume 1750 mL Not Available [facility] (Outpatient) [address] [place], [address], 07/10/2024 11:40:28 07/09/19 25 07/10/2024 CALCI UM, 24 HOUR URINE urine calcium 3.7 mg/dL Not Available [facility] (Outpatient) [address] [place], [address], 07/10/2024 13:00:44 07/09/19 25 07/10/2024 CALCI UM, 24 HOUR URINE calcium output 65 mg/to tal_o utput 100-30 0 low Not Available [facility] (Outpatient) [address] [place], [address], 07/10/2024 13:00:44 07/09/19 25 07/10/2024 CREAT ININE , 24 HR URINE urine creatinine 56 mg/dL Not Available [facility] (Outpatient) [address] [place], [address], 07/10/2024 13:00:45 07/09/19 25 07/10/2024 CREAT ININE , 24 HR URINE creatinine output 980 mg/to tal_o utput 600-18 00 Not Available [facility] (Outpatient) [address] [place], [address], 07/10/2024 13:00:45 07/09/19 25 07/10/2024 PHOSP HORUS , 24 HR URINE urine phosphorus 25.0 mg/dL Not Available [facility] (Outpatient) [address] [place], [address], 07/10/2024 13:00:47 07/09/19 25 07/10/2024 PHOSP HORUS , 24 HR URINE phosphorus output 437.5 mg/to tal_o utput 400-13 00 Not Available [facility] (Outpatient) [address] [place], [address], 07/10/2024 13:00:47 07/10/19 25 07/10/2024 ROSE MARY BURGOS (PTH) parathyroid hormone 115 pg/mL 15-65 high Not Available [facility] (Outpatient) [address] [place], [address], 07/10/2024 12:02:00 07/10/19 25 07/10/2024 RENAL PANEL sodium 139 mmol/ L 133-14 6 Not Available [facility] (Outpatient) [address] [place], [address], 07/10/2024 12:02:10 07/10/19 25 07/10/2024 RENAL PANEL potassium 4.3 mmol/ L 3.3-5. 1 Not Available [facility] (Outpatient) [address] [place], [address], 07/10/2024 12:02:10 07/10/19 25 07/10/2024 RENAL PANEL chloride 104 mmol/ L 96-108 Not Available [facility] (Outpatient) [address] [place], [address], 07/10/2024 12:02:10 07/10/19 25 07/10/2024 RENAL PANEL CO2 24 mmol/ L 21-35 Not Available [facility] (Outpatient) [address] [place], [address], 07/10/2024 12:02:10 07/10/19 25 07/10/2024 RENAL PANEL glucose 124 mg/dL 70-99 high Not Available [facility] (Outpatient) [address] [place], [address], 07/10/2024 12:02:10 07/10/19 25 07/10/2024 RENAL PANEL BUN 20 mg/dL 6-19 high Not Available [facility] (Outpatient) [address] [place], [address], 07/10/2024 12:02:10 07/10/19 25 07/10/2024 RENAL PANEL creatinine 1.30 mg/dL 0.5-1. 5 Not Available [facility] (Outpatient) [address] [place], [address], 07/10/2024 12:02:10 07/10/19 25 07/10/2024 RENAL PANEL calcium 10.5 mg/dL 8.4-10 .3 high Not Available [facility] (Outpatient) [address] [place], [address], 07/10/2024 12:02:10 07/10/19 25 07/10/2024 RENAL PANEL phosphorus 3.2 mg/dL 2.7-4. 5 Not Available [facility] (Outpatient) [address] [place], [address], 07/10/2024 12:02:10 07/10/19 25 07/10/2024 RENAL PANEL albumin 3.9 g/dL 3.9-4. 8 Not Available [facility] (Outpatient) [address] [place], [address], 07/10/2024 12:02:10 07/10/19 25 07/10/2024 RENAL PANEL eGFR 42 mL/mi n/1.7 3m2 >59 low Estim ated glome rular filtr ation rate calcu lated using the CKD-E PI refit equat ion. Not Available [facility] (Outpatient) [address] [place], [address], 07/10/2024 12:02:10 07/10/19 25 07/10/2024 RENAL PANEL anion gap 15 mmol/ L 10-20 Not Available [facility] (Outpatient) [address] [place], [address], 07/10/2024 12:02:10 07/10/19 25 07/10/2024 25-OH VITAM IN D 25 oh vit D (total) 30 NG/mL 30-60 Not Available [facility] (Outpatient) [address] [place], [address], 07/10/2024 12:18:58 07/10/19 25 07/21/2024 CASR GENE [...] PDF Repor t avail able at: [email or web address] :[email or web address] /Repo rts/C [email or web address] [email or web address] shx Metho d SEE [...] eview s.org ). An onlin e resea [facility] [place] [facility] eConn ect (enrique mecon nect. org), a proje ct of ClinG en, is avail able for the recip ient of this claude ic test. This patie nt babatunde try colle cts de-id entif ied claude ic and healt h infor luis ramirez to advan ce the knowl edge of claude ic varia nts. [facility] is a colla borat or [...] inter preta tion of these resul ts, [facility] Labor atory claude ic couns elors can be conta cted at [phone]. Techn ical Limit ation s Next gener [...] varia nts was perfo rmed by jaquelin mack based on inter nal labor atory crite [...] the prese nce of donor DNA. Call [facility] at[facility] es for instr uctio ns [...] e laverne cteri stics deter mined by [facility] in a mary r consi stent with CLIA requi remen ts. This test has not been clear ed or appro javi by the U.S. Food and Drug Admin istra tion. Relea sed By James strong, Ph.D. Not Available [facility] (Outpatient) [address] [place] [address], [address], 07/21/2024 11:13:53 03/27/20 19 10/02/2018 MAMMO , [...] Details Recorded Time Disorder of thyroid gland 41993815 Active 2017 [place] Walker [facility] 8 08:28:01 Disorder of vitamin D 167026881 Active 2017 [place] Walker, [facility] 8 08:28:14 Hypercalc emia 92311892 [facility] 08:28:28 Type 2 diabetes mellitus without complicat ion 878316843 Active 2017 [place] Walker [facility] 8 08:29:28 Chronic kidney disease stage 3 973692820 Active 08/2020 lab results [place] Martin, [facility] 1 10:07:59 Chronic kidney disease due to type 2 diabetes mellitus 938589266509 Active 2020 LABS 02/02/2021 GFR 33 Milana Rowland [facility], [facility] 1 09:47:09 Morbid obesity 476246791 Active 2021 BMI > or = 35 plus diagnosis of diabetes. Brenda Reddy LPN [facility], [facility] 2 10:11:12 Problem Notes None recorded. Procedures Surgical History Date Name Laterality Status Provider Name and Address Organization Details Recorded Time 8 Unlisted px accessory sinus completed Alla Emerson [facility] 03/27/2019 10:35:47 Imaging Results None recorded. Procedure Notes None recorded. Medical Equipment None Reported. Allergies Allergen ID Allergen Name Allergen Category Reaction Reaction Severity Criticality Documentation Date Start Date Code Code System Note Provider Name and Address Organization Details Recorded Time 811463 Product containin g angiotens in-conver ting enzyme inhibitor (product) medicatio n Not available Not available Not available 06/16/2024 10481 009 SNOMED throa t swell ing [facility] 5 11:32:28 Medications Name Sig [...] completed Hold per summer pending labs per [place] Not Available Not Available Not Available Aleve 220 mg capsule active 2 a day, AM and PM Not Available Not Available Not Available Vitals Date Recorded Body weight Body mass index (BMI) Body height Heart rate Systolic blood pressure Diastolic blood pressure Provider Name and Address Organization Details Last Updated DateTime 5 54236.9 1 g 36.7 kg/m2 157.48 cm 92 /min 129 mm[Hg] 68 mm[Hg] Sangeetha Ceja [place] [facility] 5 11:42:20 Date Recorded Body height Body mass index (BMI) Body weight Heart rate Systolic blood pressure Diastolic blood pressure Provider Name and Address Organization Details Last Updated DateTime 5 157.48 cm 37.6 kg/m2 98784.5 9 g 89 /min 124 mm[Hg] 75 mm[Hg] Sangeetha Marcial [place] [facility] 5 14:48:27 Date Recorded Body height Body mass index (BMI) Body weight Heart rate Systolic blood pressure Diastolic blood pressure Provider Name and Address Organization Details Last Updated DateTime 9 158.12 cm 38 kg/m2 80853.5 2 g 64 /min 122 mm[Hg] 64 mm[Hg] Alla Emerson [facility] 9 10:38:49 Date Recorded Body weight Body mass index (BMI) Body height Heart rate Systolic blood pressure Diastolic blood pressure Provider Name and Address Organization Details Last Updated DateTime 1 79574.8 1 g 36.8 kg/m2 158.12 cm 86 /min 118 mm[Hg] 72 mm[Hg] Sri Leahy RN [facility] 1 09:57:09 Social History Question Answer Notes LastModified by Organizat ion Details LastModified Time Tobacco Smoking Status Never Smoker Eleazar Jarod heck [facility] 12/12/2012 08:23:45 Which Illicit Or Recreational Drugs [...] You Have? 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 Family History Relationship Description Onset Age of this Age Resolved Age Notes LastModified by Organization Details LastModified Time Son Malignant neoplasm of prostate 07/2019 [email or web address] Not available 2019 08:56:16 Notes:Father-does not know h x Mother- age 95- arthirits HTN, thyroid problems, [place] in 60's no siblings MGM- breast cancer MGF- alzheimer's, diabetes, ?RA Mat Aunt- early alzheimer's in 90's and stroke Daughter T1DM Son Afib 03/31: Grandbabies are 10 years old. Magalie is about the same. 04/01: Magalie on pump again; Grands are 11 years old. school from home. 2 Grandsons (one same age as girls) school QOS. 04/02: Lynne?sister are 12 grandsons are 1516 - has truck in pieces hoping to build Medical History Condition Response Diabetes Type II Y Pacemaker Y Heart Disease Y Hypertension Y Gynecological HistoryNo gynecological history recorded. Obstetrics History GPAL:G 0 P 0 0 0 0 Immunizations Vaccine Type Date Status Note Provider Nam e and Address Organization Details Recorded Time influenza, unspecified formulation 3 completed Jolie Lopez RN null, [facility] 03/05/2013 10:39:33 Influenza, split virus, quadrivalent, preservative 0 completed Gayle Aguila LPN [facility], [facility] 04/01/2020 08:57:48 COVID-19, mRNA, LNP-S, PF, 30 mcg/0.3 mL dose 1 completed Sri Leahy RN null, [facility] 04/05/2021 09:50:59 COVID-19, mRNA, LNP-S, PF, 30 mcg/0.3 mL dose 1 completed Sri Leahy RN null, [facility] 04/05/2021 09:51:10 Influenza, split virus, quadrivalent, preservative 1 completed Sri Leahy RN null, [facility] 04/05/2021 09:51:28 Past Encounters Encounter ID Performer Location Encounter Start Date Encounter Closed Date Diagnosis/Indication Diagnosis SNOMED-CT Code Diagnosis ICD10 Code Diagnosis Note [id number] Jamaal Ham MD [facility], [address] [address] 12/12/2012 08:00:19 12/12/2012 09:21:36 Hypercalcemia 67450398 Pt with elevated Calcium in 11 in [...] age over 50. Pt to go to [facility] [address], givencopy of lab slip at time of visit. BMD 08/15/12 [facility] spine-0.4, hips 01.8 neck -1.3 total, forearm +0.14 Jun 2012 Ca 11 [id number] Jamaal Ham MD [facility], [address] [address] 01/08/2013 15:42:16 01/08/2013 17:00:59 Disorder of thyroid gland 25452204 TSh 11 and has had TSH of [...] repeats labs would like to go to [address] since open Saturday AM and pt lives near there. Disorder of vitamin D 720895957 Vit D 18 and PTH slighlty elevated at 75. Caclium stable at 11.0 to 11.2 with normal/low urinary calcium. Most consistent with [facility]. Will try to slowly replete D and see if PTH corrects and aches resolve. Will have her take 3000 units of Vit D daily and repeat labs when repeats TSH and FT4 in 6 weeks. Hypercalcemia 06393280 s ee above. Will continue to monitor Calcium levels. 24 hour urine studies most consistent ly with FHH. Explained to pt that people with FHH have higher set points for calcium. If correction of D and TSH does not alleviate symptoms, and calcium remain elevated then will reevaluate at that time. [id number] Maryuri Torres PA-C [facility], [address] [address] 03/05/2013 10:31:44 03/05/2013 11:40:00 Disorder of thyroid gland 09282133 TSH was 11 and is now in [...] repeats labs would like to go to [address] since open Saturday AM and pt lives near there. Disorder of vitamin D 837569652 Vit D is now 26. Ca normal at 10.6, Will have her increase Vit D to 4000 units to get level over 30 and continue this through the winter. Will continue to monitor Ca in renal panel. Labs q 3 months and f/u in 6 months. repeat labs with next TSH in 3 months. Hypercalcemia 38569800 C a normal at 10.6 . see above. Hx=24 hour urine studies most consistent ly with FHH. If correction of D and TSH does not alleviate symptoms, and calcium remain elevated then will reevaluate at that time. Left bundl e branch block 63712275 TSH improved to 4 from 11. Do not think T4 could be reason for extra beat pt is feeling. Pt to have f/u with Dr. Estevez in a few weeks and will discuss with him as well. [id number] Maryuri Torres PA-C [facility], [address] [address] 09/03/2013 10:31:16 09/03/2013 11:33:21 Disorder of thyroid gland 33887910 Is seeing Dr.Kirchof rojas in a few weeks to have f/u on her LBBB (preexisti ng condition) . Pt had echo in November and told has 20-30% blockage. Pt states on ASA and statin for this. labs would like to go to [address] since open Saturday AM and pt lives near there. Disorder of vitamin D 738502451 Hypercalcemia 08119946 H x=24 hour urine studies most consistent ly with [facility]. If correction of D and TSH does not alleviate symptoms, and calcium remain elevated then will reevaluate at that time. Left bundl e branch block [id number] contf/u with Dr. Estevez . [id number] Maryuri Torres PA-C [facility], [address] [address] 03/04/2014 14:26:06 03/04/2014 15:23:06 Disorder of thyroid gland 17167523 Disorder of vitamin D 082751599 Hypercalcemia 40136154 H x=24 hour urine studies most consistent ly with F[facility]. If correction of D and TSH does not alleviate symptoms, and calcium remain elevated then will reevaluate at that time. Left bundl e branch block [id number] contf/u with Dr. Estevez . [id number] Jamaal Ham MD [facility], [address] [address] 09/21/2014 09:20:13 09/21/2014 10:22:15 Disorder of thyroid gland 63561236 TSH was 11 in 2012 and pt started on T4. TSH stable and to goal. Cont on 50 mcg daily of T4. f/u in 12 months labs q 6 months. Call if symptoms in the meantime and can decide about drawing labs sooner than recommende d date. Lab pt prefers is [address] since open Saturday AM and pt lives near there. Disorder of vitamin D 868786049 Vit D replete at 47 and Ca normal at 10.6,cont Vit D to 4000 units. Labs q 6 months and f/u yearly. Hypercalcemia 56285074 C a normal at 10.6 . see above. Hx=24 hour urine studies most consistent ly with [facility]. If correction of D and TSH does not alleviate symptoms, and calcium remain elevated then will reevaluate at that time. Left bundl e branch block 75289084 Follows with Dr.Kirchof rojas --hx of LBBB (preexisti ng condition) . Pt had echo in November 2013 and told has 20-30% blockage. Pt states on ASA and statin for this. last appt May 2014 when had pacer replaced. F/u with Dr. Estevez . [id number] Jamaal Ham MD [facility], [address] [address] 09/20/2015 09:34:26 09/20/2015 10:19:42 Disorder of thyroid gland 94878549 E07.9 TSH 4 and pt typically in 2's. Will try 75 mcg daily and repeat labs in 8 weeks. Will contact her if dose needs further adjustment after labs. Labs q 4 months after dose stable. f/u in 12 months. Call if symptoms in the meantime and can decide about drawing labs sooner than recommende d date. Lab pt prefers is [address] since open Saturday AM and pt lives near there. Disorder of vitamin D 38 4582257 E56.9 Vit D remaining replete Ca stable at 10.6. Cont Vit D to 4000 units. Labs q 6 months (March and September) and f/u yearly. Hypercalcemia 13644774 E 83.52 PTH normal. Ca normal at 10.6 . Cont to monitor q 6 months (March and September). Hx=24 hour urine studies most consistent ly with [facility]. If correction of D and TSH does not alleviate symptoms, and calcium remain elevated then will reevaluate at that time. [id number] Jamaal Ham MD [facility], [address] [address] 09/20/2016 09:44:08 09/20/2016 10:26:42 Disorder of thyroid gland 04323584 E07.21 Jun 2016 labs to goal on 75 mcg of T4 daily. Cont this dose with labs q 6 months. F/u in 12 months. Lab pt prefers is [address] since open Saturday AM and pt lives near there. Disorder of vitamin D 38 0669480 E56.9 see below. Cont Vit D to 4000 units. Hypercalcemia 81578896 E 83.52 PTH had been normal in [...] Type 2 chanel betes mellitus without complication 190401025 E11.9 Managed by PCP and per pt A1c under 7. [id number] Jamaal Ham MD [facility], [address] [address] 06/10/2017 09:27:23 06/10/2017 10:47:39 Disorder of thyroid gland 50175209 E07.21 Mar 2017 labs to goal on 75 mcg of T4 daily. Cont this dose with labs q 6 months. Keep f/u in September. Lab pt prefers is [address] since open Saturday AM and pt lives near there. Disorder of vitamin D 38 8997934 E56.9 see below. Cont Vit D to 4000 units but want to update. 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 If D remaining high will reduce D level. May be able to lower D level. Keep appt in September. Hypercalcemia 76781758 E 83.52 PTH had been normal in setting of normal Ca and Vit D. Never got repeat Mar lab from [facility], looking at results in [facility] Ca [...] Type 2 chanel betes mellitus without complication 535660302 E11.9 Managed by PCP and per pt A1c under 7. [id number] Jamaal Ham MD [facility], [address] [address] 09/19/2017 09:24:45 09/19/2017 10:10:11 Disorder of thyroid gland 90288101 E07.19 August 2017 labs to goal.Cont levothyrox ine 75 mcg daily Labs q 6 months. Keep f/u in 6 months. Lab pt prefers is [address] since open Saturday AM and pt lives near there. Disorder of vitamin D 38 1374063 E56.9 Vit D was in 80's so dropped to 2000 units daily. Current testing remaining in 60's. With summer coming will have her take 1000 units daily and then in FAll (January - July) Take 2000 units in the winter. Hypercalcemia 77928488 E 83.52 PTH rising in setting of [...] Type 2 chanel betes mellitus without complication [id number] E11.9 Managed by PCP and per pt A1c under 7 on low dose metformin ACR negative as well as of September 2017 testing with PCP. [id number] Maryuri Torres PA-C [facility], [address] [address] 03/28/2018 09:34:36 03/28/2018 10:29:32 Disorder of thyroid gland 35765782 E07.9 TSH normal Feb TSH 0.81 FT4 1.5 Cont levothyrox ine 75 mcg daily Labs q 6 months. Keep f/u in 6 months. Lab pt prefers is [address] since open Saturday AM and pt lives near there. Disorder of vitamin D 38 7210004 E56.9 03/12/18 Vit D still > 60. She had increased to 2000 units in February but do not have to increase. Will have her take 1000 units daily and check again in May 2018. Hypercalcemia 55565133 E 83.52 PTH remains high in setting [...] Type 2 chanel betes mellitus without complication 063781511 E11.9 Managed by PCP and per pt A1c under 7 on low dose metformin. Per pt a1c 6.1 at last testing. [id number] Jamaal Ham MD [facility], [address] [phone] 03/27/2019 10:18:13 03/27/2019 11:30:27 Type 2 diabetes mellitus without complication 523234007 E11.9 On metformin 500 mg daily- decreased by PCP Kristine because of increased creatinine .Doing well. With PCP's custodial , pt. asking for more diabetes care here. Disorder of vitamin D 38 6051457 E55.9 42.2 (03/31); had been low in past but not in past years. Hypercalcemia 21527082 E 83.52 FHH as evidenccd by low urinary calcium (41 mg/24hr in 10/28) and high serum calcium.Cr eat= 1.5 (lately 1.3-1.6); Ca= 10.9 (was 10.8) ; Phos= 3.2 Hypothyroidism 75934899 E03.9 On 75 mcg levothyrox ine.Doing well clinically . [id number] Jamaal Ham MD [facility], [address] [address] 04/01/2020 08:45:09 04/01/2020 20:00:33 Type 2 diabetes mellitus without complication 146957829 E11.9 On metformin 500 mg daily- decreased by PCP Kristine because of increased creatinine .Doing well.a1c in 6s. no evidence of complicati ons at present. Disorder of vitamin D 38 7899990 E55.9 37 (01/30); was 42.2 (03/31); had been low in past but not in past years.Take s 1000 units daily. Hypercalcemia 56308174 E 83.52 FHH as evidenced by low urinary calcium (41 mg/24hr in 10/28) and high serum calcium.Cr eat= 1.5 (lately 1.3-1.6); Ca= 10.9 (was 10.8) ; Phos= 3.2 Hypothyroidism 06604790 E03.9 On 75 mcg levothyrox ine.Doing well clinically . Dyslipidem ia due to type 2 diabetes mellitus 3242012726 02 E78.5 2020: 163/289/36 /69;With high TG and low HDL.Encour age more activity.I f remains high, would consider either change to atorva, rosuva or possible addition of Vascepa. [id number] Jamaal Ham MD [facility], [address] [phone] 04/05/2021 09:42:53 04/07/2021 06:32:39 Type 2 diabetes mellitus without complication 121884434 E11.9 On metformin 500 mg daily- decreased by PCP (Valarie Abad). Tasha/Riddhi reyDoing well.a1c in 6s. no evidence of complicati ons at present. Disorder of vitamin D 38 8135118 E55.9 34 (01/31); was 37 (01/30); was 42.2 (03/31); had been low in past but not in past years.Take s 1000 units daily. Hypercalcemia 65737806 E 83.52 FHH as evidenced by low urinary calcium (41 mg/24hr in 10/28) and high serum calcium.Cr eat= 1.5 (lately 1.3-1.6); Ca= 10.9 (was 10.8) ; Phos= 3.2 Hypothyroidism 65683832 E03.9 On 75 mcg levothyrox ine.Doing well clinically . Re-order levothyrox ine today with refill x 6 but will ask pt. to have PCP refill future Rx's. Dyslipidem ia due to type 2 diabetes mellitus 0615402300 02 E78.5 2020: 159-247 (were 164)- 2020: 163/289/; With high TG and low HDL.Encour age more activity.I f remains high, would consider either change to atorva, rosuva or possible addition of Vascepa. [id number] Jamaal Ham MD [facility], [address] [address] 06/16/2024 10:55:56 06/29/2024 07:56:11 Type 2 diabetes mellitus without complication 140032527 E11.9 On metformin 500 mg daily- decreased by PCP (Valarie Abad). Tasha/Riddhi reyDoing well.a1c in 6s. Last was 6.9 in 2023.No evidence of complicati ons at present. Hypercalcemia 03350843 E 83.52 UNCONTROLL EDThought to be FHH [...] urinary studies.- check CASR gene mutation. Hypothyroidism 54714169 E03.9 On 75 mcg levothyrox ine.Doing well clinically . Dyslipidem ia due to type 2 diabetes mellitus 0639997226 02 E78.5 08/03: - 144/207/40 /63 on rosuva 5mg.2020: 159-247 (were 164)-3674 2020: 163/289/36 /69; 07/07: Some improvemen t from previous values with high TG and low HDL. [id number] Jamaal Ham MD [facility], [address] [address] 09/08/2024 14:23:58 09/17/2024 07:40:01 Hypercalcemia 87887607 E83.52 UNCONTROLL EDThought to be FHH in [...] find these values in either [facility] or [place] 07/07: Has high PTH with high Calcium.Sequeira d 24 hour urine in 2018 that showed low Ca/creat clearance (0.0046) and [...] POST VISIT DISCUSSION :Dr. Todd notes most [facility] patients have mildly abnormal PTH which she has typically had in past. Levels of 200 (reported by pt) seem high but can't confirm these in [facility] or [place] ([facility]).He agrees that surgery not appropriat e and, even if she has primary hyperpara, operating on 78 y.o. with several medical problems may have more risk than benefit. Hope to reach out to RENAL (Bakari) to further discuss.En courage pt. to stay on Cinacalcet for now. Type 2 chanel betes mellitus without complication 330136395 E11.9 On metformin 500 mg daily- decreased by PCP (Valarie Abad). Hession/Riddhi reyDoing well.a1c in 6s. Last was 6.9 in 2023.No evidence of complicati ons at present. Hypothyroidism 75137489 E03.9 On 75 mcg levothyrox ine.Doing well clinically . Dyslipidem ia due to type 2 diabetes mellitus 1841710325 02 E78.5 08/03: - 144/207/40 /63 on rosuva 5mg.2020: 159-247 (were 164)-36- 2020: 163/289/36 /69; 07/07: Some improvemen t from previous values with high TG and low HDL. Hypomagnesemia 631188825 E83.42 Ongoing issue for her.Might be due to cinacalcet . Health Concerns Section Related Observation LastModified by Organization Detai ls LastModified Time None Recorded Concern Status LastModified by Organization Details LastModified Time None Recorded Advance Directives Directive None Recorded Payers Insurance Date Sequence Insurance Name Policy Number Policy Lara Covered Member ID Lara Member ID Guarantor Name 06/16/2024 2 [place]LEMENT) [id number] Annetta [place] Mc[place]wey [id number] Annetta Chinyere McElwey 06/17/2024 1 MEDICARE B[place]: [employer] Annetta E McElwey [id number] Annetta [place] Mc[place]wey 06/01/2024 1 [facility] [id number] Annetta McElwey [id number] Annetta [place] Mc[place]wey 06/17/2024 1 [facility] [id number] Annetta E McElwey [id number] Annetta Chinyere McElwey 09/17/2024 1 [facility] (MEDICARE REPLACEMENT/ ADVANTAGE - PPO) [id number] Annetta E McElwey [id number] Annetta Chinyere McElwey Notes Date Note Type [...] stones. BMD: Done at [facility]. 2018. ROS: No fevers or chills.Had sinus fungal infection in 2018.Can be SOB if rushing and gets anxiousNo muscle aches or pains. No cramping.No dizziness with standing in AM. No bruises or rashes. ` Jamaal Ham MD [address] [place] [address], [phone], [facility] 03/30/2019 15:28:25 0 text/html DiabetesReported bypatient.Labs:last Hemoglobin [...] Hypoglycemia Symptomsfrequency of hypoglycemic episodesinfrequently (metformin only.); Louise funny (Shivering in middle of night- trembling) [...] (02/27)); free T4: (1.1 (01/30); was 1.5 (10.18)) Treatment:levoxyl, dose: 75 mcg (takes in [...] was notified that the provider location is [facility] Patient location: home During the visit the patient s medical history and medical record were [...] kidney stones.BMD: Done at [facility]. 2018. ROS: No fevers or chills.Had sinus fungal infection in 2018.Can cough or SOB (besides described elsewhere with activity or stress)No muscle pains. No cramping. Gets leg cramps- has tonic water nightly. No dizziness with standing in AM. No bruises, itching or rashes. Jamaal Ham MD [address] [place] [address], [phone], [facility] 04/01/2020 09:48:45 1 text/html DiabetesReported bypatient.Labs:last Hemoglobin [...] artery disease s/p pacemaker; no retinopathy ([facility] no numbness of feet;kidney disease chronic renal [...] tracings periodically.Will be seeing new CARDS in [place].But also has had nuclear ETT at [place]. PCP- Valarie Abad.CARDIAC: Switching to [place] (Subramarian)- [...] kidney stones.BMD: Done at [facility]. 2018. ROS:No fevers or chills.Had sinus fungal infection in 2018.Can cough or SOB (besides described elsewhere with activity or stress)No muscle pains. No cramping. Gets leg cramps- has tonic water nightly. No dizziness with standing in AM.No bruises, itching or rashes. Jamaal Ham MD [address] [place] [address], [phone], [facility] 04/05/2021 22:06:34 5 text/html DiabetesReported bypatient.Labs:last Hemoglobin A1C: 6s at goal (6.9 ([place] in 2023); was 6.1 (01/31); was 6.2 [...] Symptomscoronary artery disease s/p pacemaker; no retinopathy (([facility] )); no numbness of feet;kidney disease [...] (1.4 (01/31); was 1.1 (01/30); was 1.5 (10.18)) Treatment:levoxyl, dose: 75 mcg, frequency: (takes in [...] tracings periodically.Will be seeing new CARDS in [place].But also has had nuclear ETT at [place]. Last seen in 2020.PCP- Valarie Abad.CARDIAC: Switching to [email or web address] (Subramarian)- for pacer.RENAL is Arsen Villegas ([place])ENT: Tu T2DM, hypothyroidism and hypercalcemia (previously thought secondary to [facility]). Follow-Up: disorder of thyroid glandFollow-Up: Type 2 diabetes mellitus without complicationFollow-Up: hypercalcemiaFollow-Up: disorder of vitamin DHypothyroidismLV 1LAst labs 08/03 added to chart last A1C- 6.9 [facility] states has a adenoma on parathyroidChecks blood sugars daily FBS will write down Past MED HX:T2DM with CKD (GFR <45)HYPOTHYROIDHYPERCALCE FREDRICK (chronic- [facility])Pacemaker- replaced 2023 Other hx: migraines (none [...] ENT: told throat sx are from reflux. ([place])Gout: Takes prednisone 3-4 x per year (usually [...] Magalie (46)- doing OK. 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 Lynne ([facility] ) and Amara- ([employer])daughter (50)- Herman at [employer]. 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 Calciums in 11s. PTH in triple digits.On cinacalcet but hasn't impacted PTH. Not affecting Ca much. Makes her nauseated.Told it depletes Mg.Interested in surgery as option. seeing him next month.RENAL is Athreya([place]) Hx of hypercalcemia thought to be due to [facility]HH. 2018: urine C was LOW= 3.9 mg/dL (31 mg/24 hrs)No hx of kidney stones.BMD: Done at [facility]. 2018. Ca= 10.7 (05/05); was 10.1 [...] PREVIOUS 24 HR URINE (2017)Creatinine Clearance................ ........................5 [id number]............... ......................... >80Phosphorus Clearance................ .....................11.5 [id number].................. ......................5 to 15Tubular Reabsorption of Phosphorus........80.1711 3095..................... ...................82-97% Calcium/Creatinine Clearance................ .........[id number]..... ......................... ........<0.01 C/W HLow Ca/Creat clearance and TRP are c/w PSYCHIATRIC [...] in abdomen.M/S sx: arthritic. Jamaal Ham MD [address] [place] [address], [phone], [facility] 06/28/2024 14:21:00 5 text/html DiabetesReported bypatient.Labs:last Hemoglobin A1C: 6s at goal (6.9 ([place] in 2023); was 6.1 (01/31); was 6.2 [...] Symptomscoronary artery disease s/p pacemaker; no retinopathy (([facility] )); no numbness of feet;kidney disease chronic renal insufficiency Hypoglycemia Symptomsfrequency of hypoglycemic episodesinfrequently (metformin only.); Occ sx of shaking but if checks, hasn't seen low value. Nothing below 90-100.Notes:08/03 -144/207/40/63 01/31:159-247 (were 164)-36-: 163/289//; on prava.discussed impact [...] tracings periodically.Will be seeing new CARDS in [place].But also has had nuclear ETT at [place]. PCP- Valarie Abad.CARDIAC: Switching to [employer] (Subramarian)- for pacer.RENAL is Arsen Villegas ([place])ENT: Tu Follow-Up: disorder of thyroid glandFollow-Up: Type 2 diabetes mellitus without complicationFollow-Up: hypercalcemiaFollow-Up: disorder of vitamin DHypothyroidismLV 07/07LAst labs 07/07 added to chart last A1C- 6.9 [facility] FBS PT forgot meter [...] Magalie (44)- doing OK. 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 Lynne ([facility] ) and Amara- ([employer])daughter (50)- Herman at [employer]. 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 Calciums in 11s. PTH in triple digits.On cinacalcet but hasn't impacted PTH. Not affecting Ca much. Makes her nauseated.Told it depletes Mg.Interested in surgery as option. seeing him next month.RENAL is Bakari([place]) Hx of hypercalcemia thought in past to be due to [facility].(see A/P for summary) 2018: urine C was LOW= 3.9 mg/dL (31 mg/24 hrs)No hx of kidney stones.BMD: Done at [facility]. 2018. Ca= 10.7 (09/01/24 per pt); was 10.5 [...] CPAP (dry mouth).SOB: intermittent. Jamaal Ham MD [address] [place] [address], [phone], [facility] 09/09/2024 19:39:34 OBGyn Episode No OBEpisode recorded.
--- OUTSIDE RECORDS SUMMARY | 2024-11-09 14:39 | XMS_ITS | Clinical Summary ---
Author Organization [facility] ity Address [address] [place] [address] Care Team Providers Care Town Planner Name Role Phone Unavailable Primary Care Provider [...]
--- OUTSIDE RECORDS SUMMARY | 2024-11-09 14:39 | XMS_ITS | Encounter Summary ---
Author Organization [facility] Address [address] [facility] [address] [place] [address] Phone Care Team Providers Care Carousel Attendant Name Role Phone Carmita Dietz SUPERVISOR WRAPPING ROOM-C Primary Care Provider + Reason for Visit * Reason Comments Med Refill Encounter Details Date Type Department Care Team (Late st Contact Info) Description 02/27/2023 Refill [facility] [address] [place] [phone] Arsen Villegas MD Social History Tobacco Use [...] on filedocumented in this encounter Care Teams Carousel Attendant Relationship Specialty Start Date End Date Carmita Dietz NP-C [address], [address] [place] [address] PCP - General Nurse Practitioner 07/18/22 documented as of this encounter
== END 2024-11-09 14:22 | disposition home or self-care (01) ==
LOC: HO.HKA 14:04
PROVIDERS: PCP Nurse Practitioner Primary Care; Visit Provider Internal Medicine Hypertension Specialist
DX: E21.3 Hyperparathyroidism, unspecified (principal); I12.9 Hypertensive chronic kidney disease with stage 1 through stage 4 chronic kidney disease, or unspecified chronic kidney disease; N18.9 Chronic kidney disease, unspecified; D64.9 Anemia, unspecified
CPT/HCPCS: 99214

== ENCOUNTER → 2024-11-09 14:03 | Outpatient (BNVA) | payer MEDICARE, SELFPAY | PROVIDERS: PCP Nurse Practitioner Primary Care; Visit Provider Internal Medicine Hypertension Specialist | DX: E83.52 Hypercalcemia (principal); N18.30 Chronic kidney disease, stage 3 unspecified; D64.9 Anemia, unspecified; I10 Essential (primary) hypertension | CPT/HCPCS: 99212 ==

== ENCOUNTER 2024-11-12 07:26 | Outpatient (REF) | payer MEDICARE, SELFPAY ==
--- OUTSIDE RECORDS SUMMARY | 2023-10-03 03:30 | XMS_ITS ---
Author Organization [facility] Address [address] [place] [address] Care Team Providers Care Geospatial Specialist Name Role Phone Archie Finch MD Primary Care Provider Cash Casanova [phone] REASON FOR VISIT abn ct scan colon, gerd,hiatal hernia,epigastric pain, Problems Problem Type SNOMED Code ICD Code Onset Dates Problem Status W/U Status Risk Notes Problem Diverticular disease of colon (441391965) Diverticulosis of large intestine without perforation or abscess without bleeding (K57.30) Active confirmed Problem Ulcer of esophagus (26783388) Ulcer of esophagus without bleeding (K22.10) Active confirmed Problem Chronic gastritis (4210370) Gastritis, chronic (K29.50) Active confirmed Encounters Encounter Location Date Provider Diagnosis [facility] Outpatient [address] [place] [phone] 10/03/[address] scan, colon [...] LULI DE LUNA EDOB:1945 (78 yo F)Acc No.[id number]:10/03/2023 EGD and COL/MAC Patient: LULI STONER Provider: Fidel Mercado MD :1945 A ge:77 Y S ex:Female Date:10/03/2023 Address:[address] [place] [address] Pcp:Archie Finch MD Subjective: * Chief Complaints: [...] * Procedure Codes: 4 5378 DIAGNOSTIC COLONOSCOPY, 96824 UPPER GI ENDOSCOPY, BIOPSY * * The named appointment provid er may or may not be the originator of this progress note, and it is not deemed complete until electronically signed by the appointment provider. Sign off status: Pending * Provider: Fidel Mercado MD Date: 0 10/03/2023 Generated for Nehemiah ashford/Opal/eTnikasmitting on: 0 11/12/2024 07:27 AM EDT
--- OUTSIDE RECORDS SUMMARY | 2024-11-12 07:28 | XMS_ITS | Encounter Summary ---
Author Organization [facility] Address [address] [facility] [address] [place] [address] Phone Care Team Providers Care Combination Saw Operator Name Role Phone Carmita Dietz NEIGHBORHOOD PLANNER-C Primary Care Provider + Reason for Visit * Reason Comments Med Refill Encounter Details Date Type Department Care Team (Late st Contact Info) Description 02/27/2023 Refill [facility] [address] [place] [phone] Arsen Villegas MD Social History Tobacco Use [...] on filedocumented in this encounter Care Teams Combination Saw Operator Relationship Specialty Start Date End Date Carmita Dietz NP-C [address], [address] [place] [address] PCP - General Nurse Practitioner 07/18/22 documented as of this encounter
--- OUTSIDE RECORDS SUMMARY | 2024-11-12 07:28 | XMS_ITS | Data Portability ---
Author Organization 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 ................ ................ .[id number].... ................ ................ ....>80 Phosphorus Clearance....... ................ ..............11 .[id number]....... ................ ................ .5 to 15 Tubular Reabsorption of Phosphorus...... ..80.80898564... ................ ................ .....82-97% Calcium/Creatini ne Clearance....... ................ ..[id number]... ................ ................ ...<0.01 C/W [facility] Low Ca/Creat clearance and TRP are c/w [facility]. REPEAT 24 hr urine (07/07): VOL= 980cc Calcium= 0.065 (07/07) Phos= 0.4375 creat= 0.98 (07/07) Creatinine Clearance....... ................ ................ .52.41785854 >80 Phosphorus Clearance....... ................ ................ [id number] 5 to 15 Tubular Reabsorption of Phosphorus...... ..81.50073682 82-97% Calcium/Creatini ne Clearance....... ................ .0.408072806 <0.01 C/W [facility] LAB SUMMARY: Ca= 10.7 (09/01/24 per pt); [...] magnesium , serum or plasma 2024 025 [facility] [address], [place], [address], 09/10/2024 10:13:21 renal function panel, serum 2024 025 [facility], [address], [place], [address], 07/10/2024 12:02:11 vitamin D, 25-hydrox y, total, serum 2024 025 [facility], [address], [place], [address], 07/10/2024 12:18:59 PTH (parathyr oid hormone), intact + calcium, serum or plasma 2024 025 [facility], [address], [place], [address], 06/16/2024 13:10:32 calcium, 24-hour urine 2024 025 [facility], [address], [place], [address], 07/10/2024 13:00:44 creatinin e, 24-hour urine 2024 025 [facility], [address], [place], [address], 07/10/2024 13:00:45 phosphoru s, 24-hour urine 2024 025 [facility], [address], [place], [address], 07/10/2024 13:00:48 volume, total, 24-hour urine 2024 025 [facility], [address], [place], [address], 06/16/2024 13:10:32 CASR gene full mutation analysis, blood or tissue 2024 025 [facility], [address], [place], [address], 06/30/2024 13:10:31 vitamin D, 25-hydrox y, total, serum 2019 021 [facility], [address], [place], [address], 02/02/2021 11:16:20 HbA1c (hemoglob in A1c), blood 2019 020 [facility], [address], [place], [address], 09/02/2020 13:55:20 CMP, serum or plasma 2019 021 [facility], [address], [place], [address], 09/02/2020 11:43:26 CMP, serum or plasma 2020 021 [facility], [address], [place], [address], 02/02/2021 11:26:12 HbA1c (hemoglob in A1c), blood 2020 021 [facility], [address], [place], [address], 02/02/2021 10:57:24 TSH, serum or plasma 2019 021 [facility], [address], [place], [address], 02/02/2021 11:26:16 T4, free, serum 2019 021 [facility], [address], [place], [address], 02/02/2021 11:26:14 HbA1c (hemoglob in A1c), blood 2018 019 [facility], [address], [place], [address], 06/12/2019 15:32:59 CMP, serum or plasma 2018 019 [facility], [address], [place], [address], 06/12/2019 16:09:37 TSH, serum or plasma 2018 [facility], [address], [place], [address], 06/12/2019 16:09:40 T4, free, serum 2018 [facility], [address], [place], [address], 06/12/2019 16:09:39 Referral None recorded. Procedures None recorded. Surgeries None recorded. Imaging None recorded. Medication Orders levothyro xine 75 mcg tablet 2020 021 [email or web address][id number], [address] [facility], [place], [address], 06/16/2024 11:33:34 Patient TargetsNo targets recorded. Patient Instructions Encounter Date Encounter Id Patient Instructions Last Modified By Organization Details Last Modified Time 03/27/2019 [id number] - Get labs done beginning in May [...] feet [email or web address] Not available 03/27/2019 11:29:50 04/01/2020 [id number] - Get labs done beginning in May [...] PCP. [email or web address] Not available 04/01/2020 09:43:27 04/05/2021 [id number] - Continue taking thyroid hormone every day [...] [email or web address] Not availabl e 04/05/2021 22:02:24 06/16/2024 [id number] - Continue taking thyroid hormone every day [...] 2024) [email or web address] Not available 06/16/2024 12:53:12 09/08/2024 [id number] - Continue taking thyroid hormone every day [...] Go To The Location Of Their Choice, [id number] 03/23/2019 18:54:58 03/23/2003/23/2019 renal funct ion panel , serum glucose 84 mg/dL (70-99 ) Not Available [facility] (Centralized Electronic Ordering - All Locations) Patient Can Go To The Location Of Their Choice, [id number] 03/23/2019 19:05:49 03/23/2003/23/2019 renal funct ion panel , serum BUN 24 mg/dL (8-23) high Not Available [facility] (Centralized Electronic Ordering - All Locations) Patient Can Go To The Location Of Their Choice, [id number] 03/23/2019 19:05:49 03/23/2003/23/2019 renal funct ion panel , serum creatinine 1.5 mg/dL (0.5-1 .0) high Not Available [facility] (Centralized Electronic Ordering - All Locations) Patient Can Go To The Location Of Their Choice, [id number] 03/23/2019 19:05:49 03/23/2003/23/2019 renal funct ion panel , serum sodium 141 mmol/ L (133-1 45) Not Available [facility] (Centralized Electronic Ordering - All Locations) Patient Can Go To The Location Of Their Choice, [id number] 03/23/2019 19:05:49 03/23/2003/23/2019 renal funct ion panel , serum potassium 4.9 mmol/ L (3.6-5 .2) Not Available [facility] (Centralized Electronic Ordering - All Locations) Patient Can Go To The Location Of Their Choice, [id number] 03/23/2019 19:05:49 03/23/2003/23/2019 renal funct ion panel , serum chloride 104 mmol/ L (98-10 7) Not Available [facility] (Centralized Electronic Ordering - All Locations) Patient Can Go To The Location Of Their Choice, [id number] 03/23/2019 19:05:49 03/23/2003/23/2019 renal funct ion panel , serum bicarbonate 25 mmol/ L (22-29 ) Not Available [facility] (Centralized Electronic Ordering - All Locations) Patient Can Go To The Location Of Their Choice, [id number] 03/23/2019 19:05:49 03/23/2003/23/2019 renal funct ion panel , serum anion gap 12 (4-17) Not Available [facility] (Centralized Electronic Ordering - All Locations) Patient Can Go To The Location Of Their Choice, [id number] 03/23/2019 19:05:49 03/23/2003/23/2019 renal funct ion panel , serum albumin 4.2 gm/dL (3.4-4 .8) Not Available [facility] (Centralized Electronic Ordering - All Locations) Patient Can Go To The Location Of Their Choice, [id number] 03/23/2019 19:05:49 03/23/2003/23/2019 renal funct ion panel , serum calcium 10.9 mg/dL (8.6-1 0.5) high Not Available [facility] (Centralized Electronic Ordering - All Locations) Patient Can Go To The Location Of Their Choice, [id number] 03/23/2019 19:05:49 03/23/2003/23/2019 renal funct ion panel , serum phosphorus 3.2 mg/dL (2.5-4 .5) Not Available [facility] (Centralized Electronic Ordering - All Locations) Patient Can Go To The Location Of Their Choice, [id number] 03/23/2019 19:05:49 03/23/2003/23/2019 renal funct ion panel [...] Go To The Location Of Their Choice, [id number] 03/23/2019 19:05:49 03/23/2003/23/2019 renal funct ion panel [...] Go To The Location Of Their Choice, [id number] 03/23/2019 19:05:49 03/23/2003/27/2019 TSH, serum or plasm a TSH 1.05 mIU/m L (0.40- 4.00) Not Available [facility] (Centralized Electronic Ordering - All Locations) Patient Can Go To The Location Of Their Choice, [id number] 03/27/2019 20:19:23 06/12/19 20 06/12/2019 HbA1c (hemo globi n A1c), blood hemoglobin A1C 6.3 % 4.3-5. 8 high Not Available [facility] (Outpatient) [address] [place], [address], 06/12/2019 15:32:59 06/12/19 20 06/12/2019 lipid panel [...] hormharjinder arnaud, sex and age. Not Available [facility] (Outpatient) [address] [place], [address], 06/12/2019 15:58:07 06/12/19 20 06/12/2019 lipid panel , blood cholesterol 176 mg/dL 0-240 Not Available [facility] (Outpatient) [address] [place], [address], 06/12/2019 15:58:07 06/12/19 20 06/12/2019 lipid panel , blood triglyceride s 199 mg/dL 30-160 high Not Available [facility] (Outpatient) [address] [place], [address], 06/12/2019 15:58:07 06/12/19 20 06/12/2019 lipid panel , blood LDL 98 mg/dL 50-129 LDL level s in terms of risk for coron amol heart disea se: <100 mg/dL : Optim al 100-1 29 mg/dL : Near or above optim al 130-1 59 mg/dL : Alyse jacobo high 160-1 89 mg/dL : High >190 mg/dL : Very High Not Available [facility] (Outpatient) [address] [place], [address], 06/12/2019 15:58:07 06/12/19 20 06/12/2019 lipid panel , blood cardiac risk ratio 4.6 3.3-4. 4 high Not Available [facility] (Outpatient) [address] [place], [address], 06/12/2019 15:58:07 06/12/19 20 06/12/2019 micro album in/cr eatin ine, mass ratio , urine urine microalbumin <1.2 mg/dL 0-2.3 Not Available [facility] (Outpatient) [address] [place], [address], 06/12/2019 16:00:19 06/12/19 20 06/12/2019 micro album in/cr eatin ine, mass ratio , urine urine creatinine 58 mg/dL Not Available [facility] (Outpatient) [address] [place], [address], 06/12/2019 16:00:19 06/12/19 20 06/12/2019 micro album in/cr eatin ine, mass ratio , urine microalb/cre ratio NOT CALCUL ATED mg/g_ cre 0-20 due to Micro album in <1.2 Not Available [facility] (Outpatient) [address] [place], [address], 06/12/2019 16:00:19 06/12/19 20 06/12/2019 CMP, serum or plasm a sodium 139 mmol/ L 133-14 6 Not Available [facility] (Outpatient) [address] [place], [address], 06/12/2019 16:09:37 06/12/19 20 06/12/2019 CMP, serum or plasm a potassium 4.8 mmol/ L 3.3-5. 1 Not Available [facility] (Outpatient) [address] [place], [address], 06/12/2019 16:09:37 06/12/19 20 06/12/2019 CMP, serum or plasm a chloride 103 mmol/ L 96-108 Not Available [facility] (Outpatient) [address] [place], [address], 06/12/2019 16:09:37 06/12/19 20 06/12/2019 CMP, serum or plasm a CO2 23 mmol/ L 21-35 Not Available [facility] (Outpatient) [address] [place], [address], 06/12/2019 16:09:37 06/12/19 20 06/12/2019 CMP, serum or plasm a BUN 21 mg/dL 6-19 high Not Available [facility] (Outpatient) [address] [place], [address], 06/12/2019 16:09:37 06/12/19 20 06/12/2019 CMP, serum or plasm a creatinine 1.20 mg/dL 0.5-1. 5 Not Available [facility] (Outpatient) [address] [place], [address], 06/12/2019 16:09:37 06/12/19 20 06/12/2019 CMP, serum or plasm a glucose 116 mg/dL 70-99 high Not Available [facility] (Outpatient) [address] [place], [address], 06/12/2019 16:09:37 06/12/19 20 06/12/2019 CMP, serum or plasm a albumin 4.4 g/dL 3.9-4. 8 Not Available [facility] (Outpatient) [address] [place], [address], 06/12/2019 16:09:37 06/12/19 20 06/12/2019 CMP, serum or plasm a total protein 7.7 g/dL 6.5-8. 0 Not Available [facility] (Outpatient) [address] [place], [address], 06/12/2019 16:09:37 06/12/19 20 06/12/2019 CMP, serum or plasm a calcium 10.9 mg/dL 8.4-10 .3 high Not Available [facility] (Outpatient) [address] [place] [address], [address], 06/12/2019 16:09:37 06/12/19 20 06/12/2019 CMP, serum or plasm a alkaline phosphatase 61 U/L 39-117 Not Available [facility] (Outpatient) [address] [place], [address], 06/12/2019 16:09:37 06/12/19 20 06/12/2019 CMP, serum or plasm a total bilirubin 0.2 mg/dL 0.0-1. 2 Not Available [facility] (Outpatient) [address] [place], [address], 06/12/2019 16:09:37 06/12/19 20 06/12/2019 CMP, serum or plasm a AST 22 U/L 0-37 Not Available [facility] (Outpatient) [address] [place], [address], 06/12/2019 16:09:37 06/12/19 20 06/12/2019 CMP, serum or plasm a ALT 9 U/L 0-40 Not Available [facility] (Outpatient) [address] [place] [address], [address], 06/12/2019 16:09:37 06/12/19 20 06/12/2019 CMP, serum or plasm a globulin 3.3 g/dL 1-4.8 Not Available [facility] (Outpatient) [address] [place] [address], [address], 06/12/2019 16:09:37 06/12/19 20 06/12/2019 CMP, serum or plasm a eGFR 44 mL/mi n/1.7 3m2 >59 low If patie nt is black , multi ply resul t by 1.159 . Estim ated glome rular filtr ation rate calcu lated using the CKD-E PI equat ion. Not Available [facility] (Outpatient) [address] [place], [address], 06/12/2019 16:09:37 06/12/19 20 06/12/2019 CMP, serum or plasm a anion gap 18 mmol/ L 10-20 Not Available [facility] (Outpatient) [address] [place], [address], 06/12/2019 16:09:37 06/12/19 20 06/12/2019 T4, free, serum free T4 1.4 NG/dL 0.9-1. 7 Not Available [facility] (Outpatient) [address] [place], [address], 06/12/2019 16:09:39 06/12/19 20 06/12/2019 TSH, serum or plasm a TSH 1.12 uIU/m L 0.27-4 .20 Not Available [facility] (Outpatient) [address] [place], [address], 06/12/2019 16:09:40 01/21/20 20 01/21/2020 HbA1c (hemo globi n A1c), blood hemoglobin A1C 6.1 % 4.3-5. 8 high Not Available [facility] (Outpatient) [address] [place], [address], 01/21/2020 11:26:48 01/21/20 20 01/21/2020 lipid panel [...] hormo arnaud, sex and age. Not Available [facility] (Outpatient) [address] [place], [address], 01/21/2020 11:36:33 01/21/20 20 01/21/2020 lipid panel , blood cholesterol 163 mg/dL 0-240 Not Available [facility] (Outpatient) [address] [place], [address], 01/21/2020 11:36:33 01/21/20 20 01/21/2020 lipid panel , blood triglyceride s 289 mg/dL 30-160 high Not Available [facility] (Outpatient) [address] [place], [address], 01/21/2020 11:36:33 01/21/20 20 01/21/2020 lipid panel , blood LDL 69 mg/dL 50-129 LDL level s in terms of risk for coron amol heart disea se: <100 mg/dL : Optim al 100-1 29 mg/dL : Near or above optim al 130-1 59 mg/dL : Borde rline high 160-1 89 mg/dL : High >190 mg/dL : Very High Not Available [facility] (Outpatient) [address] [place], [address], 01/21/2020 11:36:33 01/21/20 20 01/21/2020 lipid panel , blood cardiac risk ratio 4.5 3.3-4. 4 high Not Available [facility] (Outpatient) [address] [place], [address], 01/21/2020 11:36:33 01/21/20 20 01/21/2020 vitam in D, 25-hy droxy , total , serum 25 oh vit D (total) 37 NG/mL 30-60 Not Available [facility] (Outpatient) [address] [place], [address], 01/21/2020 11:50:58 01/21/20 20 01/21/2020 CMP, serum or plasm a sodium 137 mmol/ L 133-14 6 Not Available [facility] (Outpatient) [address] [place], [address], 01/21/2020 11:51:29 01/21/20 20 01/21/2020 CMP, serum or plasm a potassium 5.0 mmol/ L 3.3-5. 1 Not Available [facility] (Outpatient) [address] [place], [address], 01/21/2020 11:51:29 01/21/20 20 01/21/2020 CMP, serum or plasm a chloride 105 mmol/ L 96-108 Not Available [facility] (Outpatient) [address] [place], [address], 01/21/2020 11:51:29 01/21/2001/21/2020 CMP, serum or plasm a CO2 21 mmol/ L 21-35 Not Available [facility] (Outpatient) [address] [place], [address], 01/21/2020 11:51:29 01/21/2001/21/2020 CMP, serum or plasm a BUN 27 mg/dL 6-19 high Not Available [facility] (Outpatient) [address] [place], [address], 01/21/2020 11:51:29 01/21/2001/21/2020 CMP, serum or plasm a creatinine 1.50 mg/dL 0.5-1. 5 Not Available [facility] (Outpatient) [address] [place], [address], 01/21/2020 11:51:29 01/21/2001/21/2020 CMP, serum or plasm a glucose 129 mg/dL 70-99 high Not Available [facility] (Outpatient) [address] [place], [address], 01/21/2020 11:51:29 01/21/2001/21/2020 CMP, serum or plasm a albumin 4.3 g/dL 3.9-4. 8 Not Available [facility] (Outpatient) [address] [place], [address], 01/21/2020 11:51:29 01/21/20 20 01/21/2020 CMP, serum or plasm a total protein 7.3 g/dL 6.5-8. 0 Not Available [facility] (Outpatient) [address] [place], [address], 01/21/2020 11:51:29 01/21/20 20 01/21/2020 CMP, serum or plasm a calcium 11.2 mg/dL 8.4-10 .3 high Not Available [facility] (Outpatient) [address] [place], [address], 01/21/2020 11:51:29 01/21/20 20 01/21/2020 CMP, serum or plasm a alkaline phosphatase 48 U/L 39-117 Not Available [facility] (Outpatient) [address] [place], [address], 01/21/2020 11:51:29 01/21/20 20 01/21/2020 CMP, serum or plasm a total bilirubin 0.3 mg/dL 0.0-1. 2 Not Available [facility] (Outpatient) [address] [place], [address], 01/21/2020 11:51:29 01/21/20 20 01/21/2020 CMP, serum or plasm a AST 15 U/L 0-37 Not Available [facility] (Outpatient) [address] [place], [address], 01/21/2020 11:51:29 01/21/2001/21/2020 CMP, serum or plasm a ALT 6 U/L 0-40 Not Available [facility] (Outpatient) [address] [place], [address], 01/21/2020 11:51:29 01/21/2001/21/2020 CMP, serum or plasm a globulin 3.0 g/dL 1-4.8 Not Available [facility] (Outpatient) [address] [place], [address], 01/21/2020 11:51:29 01/21/20 20 01/21/2020 CMP, serum or plasm a eGFR 33 mL/mi n/1.7 3m2 >59 low Estim ated glome rular filtr ation rate calcu lated using the CKD-E PI equat ion. Not Available [facility] (Outpatient) [address] [place], [address], 01/21/2020 11:51:29 01/21/20 20 01/21/2020 CMP, serum or plasm a anion gap 16 mmol/ L 10-20 Not Available [facility] (Outpatient) [address] [place], [address], 01/21/2020 11:51:29 01/21/20 20 01/21/2020 T4, free, serum free T4 1.1 NG/dL 0.9-1. 7 Not Available [facility] (Outpatient) [address] [place], [address], 01/21/2020 11:51:31 01/21/2001/21/2020 TSH, serum or plasm a TSH 1.88 uIU/m L 0.27-4 .20 Not Available [facility] (Outpatient) [address] [place], [address], 01/21/2020 11:51:33 01/21/20 20 01/21/2020 micro album in/cr eatin ine, mass ratio , urine urine microalbumin <1.2 mg/dL 0-2.3 Not Available [facility] (Outpatient) [address] [place], [address], 01/21/2020 16:09:45 01/21/20 20 01/21/2020 micro album in/cr eatin ine, mass ratio , urine urine creatinine 83 mg/dL Not Available [facility] (Outpatient) [address] [place], [address], 01/21/2020 16:09:45 01/21/20 20 01/21/2020 micro album in/cr eatin ine, mass ratio , urine microalb/cre ratio NOT CALCUL ATED mg/g_ cre 0-20 due to Micro album in <1.2 Not Available [facility] (Outpatient) [address] [place], [address], 01/21/2020 16:09:45 09/03/19 21 09/02/2020 CMP, serum or plasm a sodium 139 mmol/ L 133-14 6 Not Available [facility] (Outpatient) [address] [place], [address], 09/02/2020 11:43:26 09/03/19 21 09/02/2020 CMP, serum or plasm a potassium 5.3 mmol/ L 3.3-5. 1 high Not Available [facility] (Outpatient) [address] [place], [address], 09/02/2020 11:43:26 09/03/19 21 09/02/2020 CMP, serum or plasm a chloride 106 mmol/ L 96-108 Not Available [facility] (Outpatient) [address] [place], [address], 09/02/2020 11:43:26 09/03/19 21 09/02/2020 CMP, serum or plasm a CO2 23 mmol/ L 21-35 Not Available [facility] (Outpatient) [address] [place], [address], 09/02/2020 11:43:26 09/03/19 21 09/02/2020 CMP, serum or plasm a BUN 26 mg/dL 6-19 high Not Available [facility] (Outpatient) [address] [place], [address], 09/02/2020 11:43:26 09/03/19 21 09/02/2020 CMP, serum or plasm a creatinine 1.40 mg/dL 0.5-1. 5 Not Available [facility] (Outpatient) [address] [place], [address], 09/02/2020 11:43:26 09/03/19 21 09/02/2020 CMP, serum or plasm a glucose 114 mg/dL 70-99 high Not Available [facility] (Outpatient) [address] [place], [address], 09/02/2020 11:43:26 09/03/19 21 09/02/2020 CMP, serum or plasm a albumin 4.3 g/dL 3.9-4. 8 Not Available [facility] (Outpatient) [address] [place], [address], 09/02/2020 11:43:26 09/03/19 21 09/02/2020 CMP, serum or plasm a total protein 7.6 g/dL 6.5-8. 0 Not Available [facility] (Outpatient) [address] [place], [address], 09/02/2020 11:43:26 09/03/19 21 09/02/2020 CMP, serum or plasm a calcium 10.7 mg/dL 8.4-10 .3 high Not Available [facility] (Outpatient) [address] [place], [address], 09/02/2020 11:43:26 09/03/19 21 09/02/2020 CMP, serum or plasm a alkaline phosphatase 56 U/L 39-117 Not Available [facility] (Outpatient) [address] [place], [address], 09/02/2020 11:43:26 09/03/19 21 09/02/2020 CMP, serum or plasm a total bilirubin 0.2 mg/dL 0.0-1. 2 Not Available [facility] (Outpatient) [address] [place], [address], 09/02/2020 11:43:26 09/03/19 21 09/02/2020 CMP, serum or plasm a AST 16 U/L 0-37 Not Available [facility] (Outpatient) [address] [place] [address], [address], 09/02/2020 11:43:26 09/03/19 21 09/02/2020 CMP, serum or plasm a ALT 7 U/L 0-40 Not Available [facility] (Outpatient) [address] [place], [address], 09/02/2020 11:43:26 09/03/19 21 09/02/2020 CMP, serum or plasm a globulin 3.3 g/dL 1-4.8 Not Available [facility] (Outpatient) [address] [place] [address], [address], 09/02/2020 11:43:26 09/03/19 21 09/02/2020 CMP, serum or plasm a eGFR 36 mL/mi n/1.7 3m2 >59 low Estim ated glome rular filtr ation rate calcu lated using the CKD-E PI equat ion. Not Available [facility] (Outpatient) [address] [place], [address], 09/02/2020 11:43:26 09/03/19 21 09/02/2020 CMP, serum or plasm a anion gap 15 mmol/ L 10-20 Not Available [facility] (Outpatient) [address] [place] [address], [address], 09/02/2020 11:43:26 09/03/19 21 09/02/2020 lipid panel [...] hormo arnaud, sex and age. Not Available [facility] (Outpatient) [address] [place], [address], 09/02/2020 12:00:24 09/03/19 21 09/02/2020 lipid panel , blood cholesterol 139 mg/dL 0-240 Not Available [facility] (Outpatient) [address] [place], [address], 09/02/2020 12:00:24 09/03/19 21 09/02/2020 lipid panel , blood triglyceride s 164 mg/dL 30-160 high Not Available [facility] (Outpatient) [address] [place], [address], 09/02/2020 12:00:24 09/03/19 21 09/02/2020 lipid panel , blood LDL 68 mg/dL 50-129 LDL level s in terms of risk for coron amol heart disea se: <100 mg/dL : Optim al 100-1 29 mg/dL : Near or above optim al 130-1 59 mg/dL : Borde rline high 160-1 89 mg/dL : High >190 mg/dL : Very High Not Available [facility] (Outpatient) [address] [place], [address], 09/02/2020 12:00:24 09/03/1909/02/2020 lipid panel , blood cardiac risk ratio 3.7 3.3-4. 4 Not Available [facility] (Outpatient) [address] [place], [address], 09/02/2020 12:00:24 09/03/1909/02/2020 HbA1c (hemo globi n A1c), blood hemoglobin A1C 6.2 % 4.3-5. 8 high Not Available [facility] (Outpatient) [address] [place], [address], 09/02/2020 13:55:19 09/07/19 21 09/06/2020 micro album in/cr eatin ine, mass ratio , urine urine microalbumin <1.2 mg/dL 0-2.3 Not Available [facility] (Outpatient) [address] [place], [address], 09/06/2020 18:43:58 09/07/19 21 09/06/2020 micro album in/cr eatin ine, mass ratio , urine urine creatinine 34 mg/dL Not Available [facility] (Outpatient) [address] [place], [address], 09/06/2020 18:43:58 09/07/19 21 09/06/2020 micro album in/cr eatin ine, mass ratio , urine microalb/cre ratio NOT CALCUL ATED mg/g_ cre 0-20 due to Micro album in <1.2 Not Available [facility] (Outpatient) [address] [place], [address], 09/06/2020 18:43:58 02/03/20 21 02/02/2021 HEMOG LOBIN A1C hemoglobin A1C 6.1 % 4.3-5. 8 high Not Available [facility] (Outpatient) [address] [place], [address], 02/02/2021 10:57:24 02/03/20 21 02/02/2021 LIPID PANEL [...] hormo arnaud, sex and age. Not Available [facility] ([facility]patient) [address] [place], [address], 02/02/2021 11:05:04 02/03/20 21 02/02/2021 LIPID PANEL cholesterol 159 mg/dL 0-240 Not Available [facility] (Outpatient) [address] [place], [address], 02/02/2021 11:05:04 02/03/20 21 02/02/2021 LIPID PANEL triglyceride s 247 mg/dL 30-160 high Not Available [facility] (Out[facility]) [address] [place], [address], 02/02/2021 11:05:04 02/03/20 21 02/02/2021 LIPID PANEL LDL 74 mg/dL 50-129 LDL level s in terms of risk for coron amol heart disea se: <100 mg/dL : Optim al 100-1 29 mg/dL : Near or above optim al 130-1 59 mg/dL : Borde rline high 160-1 89 mg/dL : High >190 mg/dL : Very High Not Available [facility] (Outpatient) [address] [place], [address], 02/02/2021 11:05:04 02/03/20 21 02/02/2021 LIPID PANEL cardiac risk ratio 4.4 3.3-4. 4 Not Available [facility] (Out[facility]) [address] [place], [address], 02/02/2021 11:05:04 02/03/20 21 02/02/2021 25-OH VITAM IN D 25 oh vit D (total) 34 NG/mL 30-60 Not Available [facility] (Outpatient) [address] [place], [address], 02/02/2021 11:16:20 02/03/20 21 02/02/2021 COMPR EHENS FORTINO METAB OLIC PANEL sodium 138 mmol/ L 133-14 6 Not Available [facility] (Out[facility]) [address] [place], [address], 02/02/2021 11:26:12 02/03/20 21 02/02/2021 COMPR EHENS FORTINO METAB OLIC PANEL potassium 5.2 mmol/ L 3.3-5. 1 high Not Available [facility] (Out[facility]) [address] [place], [address], 02/02/2021 11:26:12 02/03/20 21 02/02/2021 COMPR EHENS FORTINO METAB OLIC PANEL chloride 107 mmol/ L 96-108 Not Available [facility] (Outpatient) [address] [place], [address], 02/02/2021 11:26:12 02/03/20 21 02/02/2021 COMPR EHENS FORTINO METAB OLIC PANEL CO2 21 mmol/ L 21-35 Not Available [facility] ([facility]) [address] [place], [address], 02/02/2021 11:26:12 02/03/20 21 02/02/2021 COMPR EHENS FORTINO METAB OLIC PANEL BUN 28 mg/dL 6-19 high Not Available [facility] (Out[facility]) [address] [place], [address], 02/02/2021 11:26:12 02/03/20 21 02/02/2021 COMPR EHENS FORTINO METAB OLIC PANEL creatinine 1.50 mg/dL 0.5-1. 5 Not Available [facility] (Out[facility]) [address] [place], [address], 02/02/2021 11:26:12 02/03/20 21 02/02/2021 COMPR EHENS FORTINO METAB OLIC PANEL glucose 117 mg/dL 70-99 high Not Available [facility] (Outpatient) [address] [place], [address], 02/02/2021 11:26:12 02/03/20 21 02/02/2021 COMPR EHENS FORTINO METAB OLIC PANEL albumin 4.3 g/dL 3.9-4. 8 Not Available [facility] (Out[facility]) [address] [place], [address], 02/02/2021 11:26:12 02/03/20 21 02/02/2021 COMPR EHENS FORTINO METAB OLIC PANEL total protein 7.2 g/dL 6.5-8. 0 Not Available [facility] (Out[facility]) [address] [place], [address], 02/02/2021 11:26:12 02/03/20 21 02/02/2021 COMPR EHENS FORTINO METAB OLIC PANEL calcium 11.1 mg/dL 8.4-10 .3 high Not Available [facility] (Out[facility]) [address] [place], [address], 02/02/2021 11:26:12 02/03/20 21 02/02/2021 COMPR EHENS FORTINO METAB OLIC PANEL alkaline phosphatase 56 U/L 39-117 Not Available [facility] (Outpatient) [address] [place], [address], 02/02/2021 11:26:12 02/03/20 21 02/02/2021 COMPR EHENS FORTINO METAB OLIC PANEL total bilirubin 0.3 mg/dL 0.0-1. 2 Not Available [facility] (Outpatient) [address] [place], [address], 02/02/2021 11:26:12 02/03/20 21 02/02/2021 COMPR EHENS FORTINO METAB OLIC PANEL AST 14 U/L 0-37 Not Available [facility] (Outpatient) [address] [place], [address], 02/02/2021 11:26:12 02/03/20 21 02/02/2021 COMPR EHENS FORTINO METAB OLIC PANEL ALT 8 U/L 0-40 Not Available [facility] (Outpatient) [address] [place], [address], 02/02/2021 11:26:12 02/03/20 21 02/02/2021 COMPR EHENS FORTINO METAB OLIC PANEL globulin 2.9 g/dL 1-4.8 Not Available [facility] (Out[facility]) [address] [place], [address], 02/02/2021 11:26:12 02/03/20 21 02/02/2021 COMPR EHENS FORTINO METAB OLIC PANEL eGFR 33 mL/mi n/1.7 3m2 >59 low Estim ated glome rular filtr ation rate calcu lated using the CKD-E PI equat ion. Not Available [facility] (Out[facility]) [address] [place], [address], 02/02/2021 11:26:12 02/03/20 21 02/02/2021 COMPR EHENS FORTINO METAB OLIC PANEL anion gap 15 mmol/ L 10-20 Not Available [facility] (Out[facility]) [address] [place], [address], 02/02/2021 11:26:12 02/03/20 21 02/02/2021 FREE T4 free T4 1.4 NG/dL 0.9-1. 7 Not Available [facility] (Out[facility]) [address] [place], [address], 02/02/2021 11:26:14 02/03/20 21 02/02/2021 TSH TSH 0.91 uIU/m L 0.27-4 .20 Not Available [facility] ([facility]) [address] [place], [address], 02/02/2021 11:26:15 02/03/20 21 02/02/2021 MICRO ALBUM IN/CR EATIN INE RATIO , RANDO M URINE urine microalbumin <1.2 mg/dL 0-2.3 Not Available [facility] (Out[facility]) [address] [place] [address], [address], 02/02/2021 17:50:10 02/03/20 21 02/02/2021 MICRO ALBUM IN/CR EATIN INE RATIO , RANDO M URINE urine creatinine 97 mg/dL Not Available [facility] (Outpatient) [address] [place], [address], 02/02/2021 17:50:10 02/03/20 21 02/02/2021 MICRO ALBUM IN/CR EATIN INE RATIO , RANDO M URINE microalb/cre ratio NOT CALCUL ATED mg/g_ cre 0-20 due to Micro album in <1.2 Not Available [facility] (Outpatient) [address] [place], [address], 02/02/2021 17:50:10 07/09/19 25 07/10/2024 TIMED URINE DATA collection data 24 Not Available [facility] ([facility]) [address] [place], [address], 07/10/2024 11:40:28 07/09/19 25 07/10/2024 TIMED URINE DATA total volume 1750 mL Not Available [facility] (Outpatient) [address] [place], [address], 07/10/2024 11:40:28 07/09/19 25 07/10/2024 CALCI UM, 24 HOUR URINE urine calcium 3.7 mg/dL Not Available [facility] (Out[facility]) [address] [place], [address], 07/10/2024 13:00:44 07/09/19 25 07/10/2024 CALCI UM, 24 HOUR URINE calcium output 65 mg/to tal_o utput 100-30 0 low Not Available [facility] (Outpatient) [address] [place], [address], 07/10/2024 13:00:44 07/09/19 25 07/10/2024 CREAT ININE , 24 HR URINE urine creatinine 56 mg/dL Not Available [facility] (Outpatient) [address] [place], [address], 07/10/2024 13:00:45 07/09/19 25 07/10/2024 CREAT ININE , 24 HR URINE creatinine output 980 mg/to tal_o utput 600-18 00 Not Available [facility] (Outpatient) [address] [place], [address], 07/10/2024 13:00:45 07/09/19 25 07/10/2024 PHOSP HORUS , 24 HR URINE urine phosphorus 25.0 mg/dL Not Available [facility] (Outpatient) [address] [place], [address], 07/10/2024 13:00:47 07/09/19 25 07/10/2024 PHOSP HORUS , 24 HR URINE phosphorus output 437.5 mg/to tal_o utput 400-13 00 Not Available [facility] (Outpatient) [address] [place], [address], 07/10/2024 13:00:47 07/10/19 25 07/10/2024 ROSE MARY BURGOS (PTH) parathyroid hormone 115 pg/mL 15-65 high Not Available [facility] (Out[facility]) [address] [place], [address], 07/10/2024 12:02:00 07/10/19 25 07/10/2024 RENAL PANEL sodium 139 mmol/ L 133-14 6 Not Available [facility] ([facility]) [address] [place], [address], 07/10/2024 12:02:10 07/10/19 25 07/10/2024 RENAL PANEL potassium 4.3 mmol/ L 3.3-5. 1 Not Available [facility] (Out[facility]) [address] [place], [address], 07/10/2024 12:02:10 07/10/19 25 07/10/2024 RENAL PANEL chloride 104 mmol/ L 96-108 Not Available [facility] ([facility]) [address] [place], [address], 07/10/2024 12:02:10 07/10/19 25 07/10/2024 RENAL PANEL CO2 24 mmol/ L 21-35 Not Available [facility] ([facility]) [address] [place], [address], 07/10/2024 12:02:10 07/10/19 25 07/10/2024 RENAL PANEL glucose 124 mg/dL 70-99 high Not Available [facility] ([facility]) [address] [place], [address], 07/10/2024 12:02:10 07/10/19 25 07/10/2024 RENAL PANEL BUN 20 mg/dL 6-19 high Not Available [facility] (Out[facility]) [address] [place], [address], 07/10/2024 12:02:10 07/10/19 25 07/10/2024 RENAL PANEL creatinine 1.30 mg/dL 0.5-1. 5 Not Available [facility] (Outpatient) [address] [place], [address], 07/10/2024 12:02:10 07/10/19 25 07/10/2024 RENAL PANEL calcium 10.5 mg/dL 8.4-10 .3 high Not Available [facility] (Outpatient) [address] [place], [address], 07/10/2024 12:02:10 07/10/19 25 07/10/2024 RENAL PANEL phosphorus 3.2 mg/dL 2.7-4. 5 Not Available [facility] (Outpatient) [address] [place], [address], 07/10/2024 12:02:10 07/10/19 25 07/10/2024 RENAL PANEL albumin 3.9 g/dL 3.9-4. 8 Not Available [facility] (Outpatient) [address] [place], [address], 07/10/2024 12:02:10 07/10/19 25 07/10/2024 RENAL PANEL eGFR 42 mL/mi n/1.7 3m2 >59 low Estim ated glome rular filtr ation rate calcu lated using the CKD-E PI refit equat ion. Not Available [facility] (Outpatient) [address] [place], [address], 07/10/2024 12:02:10 07/10/19 25 07/10/2024 RENAL PANEL anion gap 15 mmol/ L 10-20 Not Available [facility] (Outpatient) [address] [place], [address], 07/10/2024 12:02:10 07/10/19 25 07/10/2024 25-OH VITAM IN D 25 oh vit D (total) 30 NG/mL 30-60 Not Available [facility] (Outpatient) [address] [place], [address], 07/10/2024 12:18:58 07/10/19 25 07/21/2024 CASR GENE [...] t avail able at: https ://ww w.l HypePoints /MACF /Repo rts/C 57179 16-4O Rxr9m f6W.a shx Metho d SEE [...] eview s.org ). An onlin e resea [facility] oppor tunit y [place] Genom eConn ect (enrique mecon nect. org), a proje ct of ClinG en, is avail able for the recip ient of this claude ic test. This patie nt babatunde try colle cts de-id entif ied claude ic and healt h infor luis ramirez to advan ce the knowl edge of claude ic varia nts. [facility] is a colla borat or [...] inter preta tion of these resul ts, [facility] claude ic couns elors can be conta cted at [phone]. Techn ical Limit ation s Next gener [...] the prese nce of donor DNA. Call [facility] at[facility] es for instr uctio [...] e laverne cteri stics deter mined by [facility] in a mary r consi stent with CLIA requi remen ts. This test has not been clear ed or appro javi by the U.S. Food and Drug Admin istra tion. Relea sed By James strong, Ph.D. Not Available [facility] (Out[facility]) [address] [place] [address], [address], 07/21/2024 11:13:53 03/27/20 19 10/02/2018 MAMMO , [...] Details Recorded Time Disorder of thyroid gland 88590241 Active [address] [facility] 8 08:28:01 Disorder of vitamin D 909363640 Active 2017 [place], [facility] 8 08:28:14 Hypercalc emia 72575849 [facility] 08:28:28 Type 2 diabetes mellitus without complicat ion 720862156 Active [address] [facility] 8 08:29:28 Chronic kidney disease stage 3 726353247 Active 08/2020 lab results [place], [facility] 1 10:07:59 Chronic kidney disease due to type 2 diabetes mellitus 291212484238 Active 2020 [facility] 02/02/2021 GFR 33 Milana Rowland [facility], [facility] 1 09:47:09 Morbid obesity 683841097 Active 2021 BMI > or = 35 plus diagnosis of diabetes. Brenda Reddy LPN [facility], [facility] 2 10:11:12 Problem Notes None recorded. Procedures Surgical History Date Name Laterality Status Provider Name and Address Organization Details Recorded Time 8 Unlisted px accessory sinus completed Alla Emerson [facility] 03/27/2019 10:35:47 Imaging Results None recorded. Procedure Notes None recorded. Medical Equipment None Reported. Allergies Allergen ID Allergen Name Allergen Category Reaction Reaction Severity Criticality Documentation Date Start Date Code Code System Note Provider Name and Address Organization Details Recorded Time 409786 Product containin g angiotens in-conver ting enzyme inhibitor (product) medicatio n Not available Not available Not available 06/16/2024 20885 009 SNOMED throa t swell ing [facility] 5 11:32:28 Medications Name Sig Start Date [...] completed Hold per summer pending labs per [place] Not Available Not Available Not Available Aleve 220 mg capsule active 2 a day, AM and PM Not Available Not Available Not Available Vitals Date Recorded Body weight Body mass index (BMI) Body height Heart rate Systolic blood pressure Diastolic blood pressure Provider Name and Address Organization Details Last Updated DateTime 5 98432.9 1 g 36.7 kg/m2 157.48 cm 92 /min 129 mm[Hg] 68 mm[Hg] Sangeetha Ceja [place] [facility] 5 11:42:20 Date Recorded Body height Body mass index (BMI) Body weight Heart rate Systolic blood pressure Diastolic blood pressure Provider Name and Address Organization Details Last Updated DateTime 5 157.48 cm 37.6 kg/m2 72343.5 9 g 89 /min 124 mm[Hg] 75 mm[Hg] Sangeetha Marcial [place] [facility] 5 14:48:27 Date Recorded Body height Body mass index (BMI) Body weight Heart rate Systolic blood pressure Diastolic blood pressure Provider Name and Address Organization Details Last Updated DateTime 9 158.12 cm 38 kg/m2 95800.5 2 g 64 /min 122 mm[Hg] 64 mm[Hg] Alla Emerson [facility] 9 10:38:49 Date Recorded Body weight Body mass index (BMI) Body height Heart rate Systolic blood pressure Diastolic blood pressure Provider Name and Address Organization Details Last Updated DateTime 1 64341.8 1 g 36.8 kg/m2 158.12 cm 86 /min 118 mm[Hg] 72 mm[Hg] Sri Leahy RN [facility] 1 09:57:09 Social History Question Answer Notes LastModified by Organizat ion Details LastModified Time Tobacco Smoking Status Never Smoker Eleazar Jarod heck 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 Family History Relationship Description Onset Age of this Age Resolved Age Notes LastModified by Organization Details LastModified Time Son Malignant neoplasm of prostate 07/2019 [email or web address] Not available 2019 08:56:16 Notes:Father-does not know h x Mother- age 95- arthirits HTN, thyroid problems, [place] in 60's no siblings MGM- breast cancer [...] 3 completed Jolie Lopez RN null, [facility] 03/05/2013 10:39:33 Influenza, split virus, quadrivalent, preservative 0 completed Gayle Aguila LPN [facility], [facility] 04/01/2020 08:57:48 COVID-19, mRNA, LNP-S, PF, 30 mcg/0.3 mL dose 1 completed Sri Leahy RN null, [facility] 04/05/2021 09:50:59 COVID-19, mRNA, LNP-S, PF, 30 mcg/0.3 mL dose 1 completed Sri Leahy RN null, [facility] 04/05/2021 09:51:10 Influenza, split virus, quadrivalent, preservative 1 completed Sri Leahy RN null, [facility] 04/05/2021 09:51:28 Past Encounters Encounter ID Performer Location Encounter Start Date Encounter Closed Date Diagnosis/Indication Diagnosis SNOMED-CT Code Diagnosis ICD10 Code Diagnosis Note [id number] Jamaal Ham MD [facility], [address] [address] 12/12/2012 08:00:19 12/12/2012 09:21:36 Hypercalcemia 42941715 Pt with elevated Calcium in 11 in [...] age over 50. Pt to go to [facility] [place] [facility] [address], givencopy of lab slip at time of visit. BMD 08/15/12 [facility] spine-0.4, hips 01.8 neck -1.3 total, forearm +0.14 Jun 2012 Ca 11 [id number] Jamaal Ham MD [facility], [address] [address] 01/08/2013 15:42:16 01/08/2013 17:00:59 Disorder of thyroid gland 58781374 TSh 11 and has had TSH of [...] repeats labs would like to go to [address] since open Saturday AM and pt lives near there. Disorder of vitamin D 672028495 Vit D 18 and PTH slighlty elevated at 75. Caclium stable at 11.0 to 11.2 with normal/low urinary calcium. Most consistent with [facility]. Will try to slowly replete D and see if PTH corrects and aches resolve. Will have her take 3000 units of Vit D daily and repeat labs when repeats TSH and FT4 in 6 weeks. Hypercalcemia 64462465 s ee above. Will continue to monitor Calcium levels. 24 hour urine studies most consistent ly with [facility]. Explained to pt that people with [facility] have higher set points for calcium. If correction of D and TSH does not alleviate symptoms, and calcium remain elevated then will reevaluate at that time. [id number] Maryuri Torres PA-C [facility], [address] [address] 03/05/2013 10:31:44 03/05/2013 11:40:00 Disorder of thyroid gland 01845266 TSH was 11 and is now in [...] repeats labs would like to go to [address] since open Saturday AM and pt lives near there. Disorder of vitamin D 287489970 Vit D is now 26. Ca normal at 10.6, Will have her increase Vit D to 4000 units to get level over 30 and continue this through the winter. Will continue to monitor Ca in renal panel. Labs q 3 months and f/u in 6 months. repeat labs with next TSH in 3 months. Hypercalcemia 84187914 C a normal at 10.6 . see above. Hx=24 hour urine studies most consistent ly with [facility]. If correction of D and TSH does not alleviate symptoms, and calcium remain elevated then will reevaluate at that time. Left bundl e branch block 87475581 TSH improved to 4 from 11. Do not think T4 could be reason for extra beat pt is feeling. Pt to have f/u with Dr. Estevez in a few weeks and will discuss with him as well. [id number] Maryuri Torres PA-C [facility], [address] [address] 09/03/2013 10:31:16 09/03/2013 11:33:21 Disorder of thyroid gland 45727546 Is seeing Dr.Kirchof rojas in a few weeks to have f/u on her LBBB (preexisti ng condition) . Pt had echo in November and told has 20-30% blockage. Pt states on ASA and statin for this. labs would like to go to [address] since open Saturday AM and pt lives near there. Disorder of vitamin D 587436477 Hypercalcemia 98582773 H x=24 hour urine studies most consistent ly with [facility]. If correction of D and TSH does not alleviate symptoms, and calcium remain elevated then will reevaluate at that time. Left bundl e branch block [id number] contf/u with Dr. Estevez . [id number] Maryuri Torres PA-C [facility], [address] [address] 03/04/2014 14:26:06 03/04/2014 15:23:06 Disorder of thyroid gland 10890303 Disorder of vitamin D 050624827 Hypercalcemia 57877806 H x=24 hour urine studies most consistent ly with [facility]. If correction of D and TSH does not alleviate symptoms, and calcium remain elevated then will reevaluate at that time. Left bundl e branch block [id number] contf/u with Dr. Estevez . [id number] Jamaal Hma MD [facility], [address] [address] 09/21/2014 09:20:13 09/21/2014 10:22:15 Disorder of thyroid gland 44996193 TSH was 11 in 2012 and pt started on T4. TSH stable and to goal. Cont on 50 mcg daily of T4. f/u in 12 months labs q 6 months. Call if symptoms in the meantime and can decide about drawing labs sooner than recommende d date. Lab pt prefers is [address] since open Saturday AM and pt lives near there. Disorder of vitamin D 245085012 Vit D replete at 47 and Ca normal at 10.6,cont Vit D to 4000 units. Labs q 6 months and f/u yearly. Hypercalcemia 14170983 C a normal at 10.6 . see above. Hx=24 hour urine studies most consistent ly with [facility]. If correction of D and TSH does not alleviate symptoms, and calcium remain elevated then will reevaluate at that time. Left bundl e branch block [id number] Follows with Dr.Kirchof rojas --hx of LBBB (preexisti ng condition) . Pt had echo in November 2013 and told has 20-30% blockage. Pt states on ASA and statin for this. last appt May 2014 when had pacer replaced. F/u with Dr. Estevez . [id number] Jamaal Ham MD [facility], [address] [address] 09/20/2015 09:34:26 09/20/2015 10:19:42 Disorder of thyroid gland 63586580 E07.9 TSH 4 and pt typically in 2's. Will try 75 mcg daily and repeat labs in 8 weeks. Will contact her if dose needs further adjustment after labs. Labs q 4 months after dose stable. f/u in 12 months. Call if symptoms in the meantime and can decide about drawing labs sooner than recommende d date. Lab pt prefers is [address] since open Saturday AM and pt lives near there. Disorder of vitamin D 38 0907319 E56.9 Vit D remaining replete Ca stable at 10.6. Cont Vit D to 4000 units. Labs q 6 months (March and September) and f/u yearly. Hypercalcemia 18888843 E 83.52 PTH normal. Ca normal at 10.6 . Cont to monitor q 6 months (March and September). Hx=24 hour urine studies most consistent ly with [facility]. If correction of D and TSH does not alleviate symptoms, and calcium remain elevated then will reevaluate at that time. [id number] Jamaal Ham MD [facility], [address] [address] 09/20/2016 09:44:08 09/20/2016 10:26:42 Disorder of thyroid gland 47667934 E07.21 Jun 2016 labs to goal on 75 mcg of T4 daily. Cont this dose with labs q 6 months. F/u in 12 months. Lab pt prefers is [address] since open Saturday AM and pt lives near there. Disorder of vitamin D 38 9133788 E56.9 see below. Cont Vit D to 4000 units. Hypercalcemia 19768544 E 83.52 PTH had been normal in [...] Type 2 chanel betes mellitus without complication 520418930 E11.9 Managed by PCP and per pt A1c under 7. [id number] Jamaal Ham MD [facility], [address] [address] 06/10/2017 09:27:23 06/10/2017 10:47:39 Disorder of thyroid gland 99563111 E07.21 Mar 2017 labs to goal on 75 mcg of T4 daily. Cont this dose with labs q 6 months. Keep f/u in September. Lab pt prefers is [address] since open Saturday AM and pt lives near there. Disorder of vitamin D 38 2198071 E56.9 see below. Cont Vit D to 4000 units but want to update. 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 If D remaining high will reduce D level. May be able to lower D level. Keep appt in September. Hypercalcemia 75993359 E 83.52 PTH had been normal in setting of normal Ca and Vit D. Never got repeat Mar lab from [facility], looking at results in [facility] Ca lowered. [...] Type 2 chanel betes mellitus without complication 240969140 E11.9 Managed by PCP and per pt A1c under 7. [id number] Jamaal Ham MD [facility], [address] [address] 09/19/2017 09:24:45 09/19/2017 10:10:11 Disorder of thyroid gland 54894249 E07.19 August 2017 labs to goal.Cont levothyrox ine 75 mcg daily Labs q 6 months. Keep f/u in 6 months. Lab pt prefers is [address] since open Saturday AM and pt lives near there. Disorder of vitamin D 38 5231363 E56.9 Vit D was in 80's so dropped to 2000 units daily. Current testing remaining in 60's. With summer coming will have her take 1000 units daily and then in FAll (January - July) Take 2000 units in the winter. Hypercalcemia 85584006 E 83.52 PTH rising in setting of [...] Type 2 chanel betes mellitus without complication 516637764 E11.9 Managed by PCP and per pt A1c under 7 on low dose metformin ACR negative as well as of September 2017 testing with PCP. [id number] Maryuri Torres PA-C [facility], [address] [address] 03/28/2018 09:34:36 03/28/2018 10:29:32 Disorder of thyroid gland 90623947 E07.9 TSH normal Feb TSH 0.81 FT4 1.5 Cont levothyrox ine 75 mcg daily Labs q 6 months. Keep f/u in 6 months. Lab pt prefers is [address] since open Saturday AM and pt lives near there. Disorder of vitamin D 38 9052750 E56.9 03/12/18 Vit D still > 60. She had increased to 2000 units in February but do not have to increase. Will have her take 1000 units daily and check again in May 2018. Hypercalcemia 75007244 E 83.52 PTH remains high in setting [...] Type 2 chanel betes mellitus without complication [id number] E11.9 Managed by PCP and per pt A1c under 7 on low dose metformin. Per pt a1c 6.1 at last testing. [id number] Jamaal Ham MD Endocrino logy, [address] [address] 03/27/2019 10:18:13 03/27/2019 11:30:27 Type 2 diabetes mellitus without complication 707567685 E11.9 On metformin 500 mg daily- decreased by PCP Kristine because of increased creatinine .Doing well. With PCP's custodial , pt. asking for more diabetes care here. Disorder of vitamin D 38 4506760 E55.9 42.2 (03/31); had been low in past but not in past years. Hypercalcemia 25600573 E 83.52 FHH as evidenccd by low urinary calcium (41 mg/24hr in 10/28) and high serum calcium.Cr eat= 1.5 (lately 1.3-1.6); Ca= 10.9 (was 10.8) ; Phos= 3.2 Hypothyroidism 05285972 E03.9 On 75 mcg levothyrox ine.Doing well clinically . [id number] Jamaal Ham MD Endocrino logy, [address] [address] 04/01/2020 08:45:09 04/01/2020 20:00:33 Type 2 diabetes mellitus without complication 830004976 E11.9 On metformin 500 mg daily- decreased by PCP Kristine because of increased creatinine .Doing well.a1c in 6s. no evidence of complicati ons at present. Disorder of vitamin D 38 9798499 E55.9 37 (01/30); was 42.2 (03/31); had been low in past but not in past years.Take s 1000 units daily. Hypercalcemia 53519476 E 83.52 FHH as evidenced by low urinary calcium (41 mg/24hr in 10/28) and high serum calcium.Cr eat= 1.5 (lately 1.3-1.6); Ca= 10.9 (was 10.8) ; Phos= 3.2 Hypothyroidism 33760331 E03.9 On 75 mcg levothyrox ine.Doing well clinically . Dyslipidem ia due to type 2 diabetes mellitus 5475746623 02 E78.5 2020: 163/289/36 /69;With high TG and low HDL.Encour age more activity.I f remains high, would consider either change to atorva, rosuva or possible addition of Vascepa. [id number] Jamaal Ham MD Endocrino logy, [address] [address] 04/05/2021 09:42:53 04/07/2021 06:32:39 Type 2 diabetes mellitus without complication 813121477 E11.9 On metformin 500 mg daily- decreased by PCP (Valarie Abad). Tasha/Riddhi reyDoing well.a1c in 6s. no evidence of complicati ons at present. Disorder of vitamin D 38 8749952 E55.9 34 (01/31); was 37 (01/30); was 42.2 (03/31); had been low in past but not in past years.Take s 1000 units daily. Hypercalcemia 27845510 E 83.52 FHH as evidenced by low urinary calcium (41 mg/24hr in 10/28) and high serum calcium.Cr eat= 1.5 (lately 1.3-1.6); Ca= 10.9 (was 10.8) ; Phos= 3.2 Hypothyroidism 68195543 E03.9 On 75 mcg levothyrox ine.Doing well clinically . Re-order levothyrox ine today with refill x 6 but will ask pt. to have PCP refill future Rx's. Dyslipidem ia due to type 2 diabetes mellitus 1066348690 02 E78.5 2020: 159-247 (were 164)- 2020: 163/289/; With high TG and low HDL.Encour age more activity.I f remains high, would consider either change to atorva, rosuva or possible addition of Vascepa. [id number] Jamaal Ham MD Endocrino logy, [address] [address] 06/16/2024 10:55:56 06/29/2024 07:56:11 Type 2 diabetes mellitus without complication 842860919 E11.9 On metformin 500 mg daily- decreased by PCP (Valarie Abad). Tasha/Riddhi reyDoing well.a1c in 6s. Last was 6.9 in 2023.No evidence of complicati ons at present. Hypercalcemia 01361333 E 83.52 UNCONTROLL EDThought to be FHH [...] urinary studies.- check CASR gene mutation. Hypothyroidism 78077455 E03.9 On 75 mcg levothyrox ine.Doing well clinically . Dyslipidem ia due to type 2 diabetes mellitus 0199253149 02 E78.5 08/03: - 144/207/40 /63 on rosuva 5mg.2020: 159-247 (were 164)-3674 2020: 163/289/36 /69; 07/07: Some improvemen t from previous values with high TG and low HDL. [id number] Jamaal Ham MD Endocrino logy, [address] [address] 09/08/2024 14:23:58 09/17/2024 07:40:01 Hypercalcemia 96605358 E83.52 UNCONTROLL EDThought to be FHH in [...] find these values in either [facility] or [place] 07/07: Has high PTH with high Calcium.Sequeira [...] VISIT DISCUSSION :Dr. Todd notes most [facility] patients have mildly abnormal PTH which she has typically had in past. Levels of 200 (reported by pt) seem high but can't confirm these in [facility] or [place] ([facility]).He agrees that surgery not appropriat e and, even if she has primary hyperpara, operating on 78 y.o. with several medical problems may have more risk than benefit. Hope to reach out to RENAL ([facility]ak[facility]) to further discuss.En courage pt. to stay on Cinacalcet for now. Type 2 chanel betes mellitus without complication 594328069 E11.9 On metformin 500 mg daily- decreased by PCP (Valarie Abad). Hession/Riddhi reyDoing well.a1c in 6s. Last was 6.9 in 2023.No evidence of complicati ons at present. Hypothyroidism 56045731 E03.9 On 75 mcg levothyrox ine.Doing well clinically . Dyslipidem ia due to type 2 diabetes mellitus 5397549449 02 E78.5 08/03: - 144/207/40 /63 on rosuva 5mg.2020: 159-247 (were 164)-36- 2020: 163/289/36 /69; 07/07: Some improvemen t from previous values with high TG and low HDL. Hypomagnesemia 433219672 E83.42 Ongoing issue for her.Might be due to cinacalcet . Health Concerns Section Related Observation LastModified by Organization Detai ls LastModified Time None Recorded Concern Status LastModified by Organization Details LastModified Time None Recorded Advance Directives Directive None Recorded Payers Insurance Date Sequence Insurance Name Policy Number Policy Lara Covered Member ID Lara Member ID Guarantor Name 06/16/2024 2 [place] [id number] Annetta [place] McElwey [id number] Annetta Chinyere McElwey 06/17/2024 1 MED[place] B[place] [employer] Annetta E McElwey [id number] Annetta [place] McElwey 06/01/2024 1 [facility] [id number] Annetta McElwey [id number] Annetta [place] McElwey 06/17/2024 1 [facility] [id number] Annetta E McElwey [id number] Annetta [place] McElwey 09/17/2024 1 [facility] (MEDICARE REPLACEMENT/ ADVANTAGE - PPO) [id number] Annetta E McElwey [id number] Annetta Chinyere McElwey Notes Date Note Type [...] stones. BMD: Done at [facility]. 2018. ROS: No fevers or chills.Had sinus fungal infection in 2018.Can be SOB if rushing and gets anxiousNo muscle aches or pains. No cramping.No dizziness with standing in AM. No bruises or rashes. ` Jamaal Ham MD [address] [place] [address], [phone], [facility] [place] 03/30/2019 15:28:25 0 text/html DiabetesReported bypatient.Labs:last Hemoglobin [...] Hypoglycemia Symptomsfrequency of hypoglycemic episodesinfrequently (metformin only.); [place]o funny (Shivering in middle of night- trembling) [...] was notified that the provider location is [facility] Patient location: home During the visit [...] kidney stones.BMD: Done at [facility]. 2018. ROS: No fevers or chills.Had sinus fungal infection in 2018.Can cough or SOB (besides described elsewhere with activity or stress)No muscle pains. No cramping. Gets leg cramps- has tonic water nightly. No dizziness with standing in AM. No bruises, itching or rashes. Jamaal Ham MD [address] [place] [address], [phone], [facility] [place] 04/01/2020 09:48:45 1 text/html DiabetesReported bypatient.Labs:last Hemoglobin [...] artery disease s/p pacemaker; no retinopathy ([facility])); no numbness of feet;kidney disease chronic renal [...] tracings periodically.Will be seeing new CARDS in [place].But also has had nuclear ETT at [place]. PCP- Valarie Abad.CARDIAC: Switching to [employer] (Subramarian)- [...] kidney stones.BMD: Done at [facility]. 2018. ROS:No fevers or chills.Had sinus fungal infection in 2018.Can cough or SOB (besides described elsewhere with activity or stress)No muscle pains. No cramping. Gets leg cramps- has tonic water nightly. No dizziness with standing in AM.No bruises, itching or rashes. Jamaal Ham MD [address] [place] [address], [phone], [facility] [place] 04/05/2021 22:06:34 5 text/html DiabetesReported bypatient.Labs:last Hemoglobin A1C: 6s at goal (6.9 ([place] in 2023); was 6.1 (01/31); was 6.2 [...] Symptomscoronary artery disease s/p pacemaker; no retinopathy (([facility] )); no numbness of feet;kidney disease [...] tracings periodically.Will be seeing new CARDS in [place].But also has had nuclear ETT at [place]. Last seen in 2020.PCP- Valarie Abad.CARDIAC: Switching to [employer] (Subramarian)- for pacer.RENAL is Arsen Villegas ([place])ENT: Tu T2DM, hypothyroidism and hypercalcemia (previously thought secondary to [facility]). Follow-Up: disorder of thyroid glandFollow-Up: Type 2 diabetes mellitus without complicationFollow-Up: hypercalcemiaFollow-Up: disorder of vitamin DHypothyroidismLV 1LAst labs 08/03 added to chart last A1C- 6.9 [facility] states has a adenoma on parathyroidChecks blood sugars daily FBS will write down Past MED HX:T2DM with CKD (GFR <45)HYPOTHYROIDHYPERCALCE FERDRICK (chronic- [facility])Pacemaker- replaced 2023 Other hx: migraines (none recently);Back [...] Magalie (46)- doing OK. 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 Lynne ([facility] ) and Amara- ([employer])daughter (50)- Herman at [employer]. 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 Calciums in 11s. PTH in triple digits.On cinacalcet but hasn't impacted PTH. Not affecting Ca much. Makes her nauseated.Told it depletes Mg.Interested in surgery as option. seeing him next month.RENAL is Athreya([place]) Hx of hypercalcemia thought to be due to FHH. 2018: urine C was LOW= 3.9 mg/dL (31 mg/24 hrs)No hx of kidney stones.BMD: Done at [facility]. 2018. Ca= 10.7 (05/05); was 10.1 (04/05); [...] PREVIOUS 24 HR URINE (2017)Creatinine Clearance................ ........................5 8.12467078............... ......................... >80Phosphorus Clearance................ .....................11.5 5950152.................. ......................5 to 15Tubular Reabsorption of Phosphorus........80.1711 3095..................... ...................82-97% Calcium/Creatinine Clearance................ .........0.106626352..... ......................... ........<0.01 C/W HLow Ca/Creat clearance and TRP are c/w [facility]. KIDNEY STONES: NONEFRACTURES: NONEBONE PAIN: Sometimes- everything [...] in abdomen.M/S sx: arthritic. Jamaal Ham MD [address] [place] [address], [phone], [facility] [place] 06/28/2024 14:21:00 5 text/html DiabetesReported bypatient.Labs:last Hemoglobin A1C: 6s at goal (6.9 ([place] in 2023); was 6.1 (01/31); was 6.2 [...] Symptomscoronary artery disease s/p pacemaker; no retinopathy (([facility] )); no numbness of feet;kidney disease [...] tracings periodically.Will be seeing new CARDS in [place].But also has had nuclear ETT at [place]. PCP- Valarie Abad.CARDIAC: Switching to [employer] (Subramarian)- for pacer.RENAL is Arsen Villegas ([place])ENT: Tu Follow-Up: disorder of thyroid glandFollow-Up: Type 2 diabetes mellitus without complicationFollow-Up: hypercalcemiaFollow-Up: disorder of vitamin DHypothyroidismLV 07/07LAst labs 07/07 added to chart last A1C- 6.9 had at doctors at [facility] blood sugars daily FBS PT forgot meter [...] Magalie (46)- doing OK. 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 Lynne ([facility] ) and Amara- ([employer])daughter (50)- Herman at [employer]. 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 Calciums in 11s. PTH in triple digits.On cinacalcet but hasn't impacted PTH. Not affecting Ca much. Makes her nauseated.Told it depletes Mg.Interested in surgery as option. seeing him next month.RENAL is Bakari([place]) Hx of hypercalcemia thought in past to be due to FHH.(see A/P for summary) 2018: urine C was LOW= 3.9 mg/dL (31 mg/24 hrs)No hx of kidney stones.BMD: Done at [facility]. 2018. Ca= 10.7 (09/01/24 per pt); was [...] CPAP (dry mouth).SOB: intermittent. Jamaal Ham MD [address] [place] [address], [phone], [facility] [place] 09/09/2024 19:39:34 OBGyn Episode No OBEpisode recorded.
--- OUTSIDE RECORDS SUMMARY | 2024-11-12 07:28 | XMS_ITS | Clinical Summary ---
Author Organization [facility] ity Address [address] [place] [address] Care Team Providers Care Concrete Block Maker Name Role Phone Unavailable Primary Care Provider [...]
[2024-11-12 08:47] LABS: Magnesium 1.6 mg/dL (1.6-2.6)
== END 2024-11-12 07:27 | disposition home or self-care (01) ==
LOC: HO.LABR 07:26
PROVIDERS: PCP Nurse Practitioner Primary Care; Visit Provider Nurse Practitioner Primary Care
DX: E21.3 Hyperparathyroidism, unspecified (principal); E03.9 Hypothyroidism, unspecified; F10.10 Alcohol abuse, uncomplicated; I10 Essential (primary) hypertension
CPT/HCPCS: 36415; 83735

== ENCOUNTER 2024-12-14 07:30 | Outpatient (REF) | payer MEDICARE, SELFPAY ==
--- OUTSIDE RECORDS SUMMARY | 2023-10-03 03:30 | XMS_ITS ---
Author Organization [facility] Address [address] [place] [address] Care Team Providers Care Associate Professor Of Pathology Name Role Phone Archie Finch MD Primary Care Provider Cash Casanova [phone] REASON FOR VISIT abn ct scan colon, gerd,hiatal hernia,epigastric pain, Problems Problem Type SNOMED Code ICD Code Onset Dates Problem Status W/U Status Risk Notes Problem Diverticular disease of colon (165209980) Diverticulosis of large intestine without perforation or abscess without bleeding (K57.30) Active confirmed Problem Ulcer of esophagus (75804727) Ulcer of esophagus without bleeding (K22.10) Active confirmed Problem Gastritis, chron ic (K29.50) Active confirmed Encounters Encounter Location Date Provider Diagnosis [facility] Out[facility] [address] [place], [place] [id number] 10/03/[address] scan, colon [...] Progress Notes * LULI DE LUNA EDOB:1945 (79 yo F)Acc No.[id number]:10/03/2023 EGD and COL/MAC Patient: LULI STONER E Provider: Fidel Mercado MD :1945 A ge:77 Y S ex:Female Date:10/03/2023 Address:[address] [place], [place] [id number] Pcp:Archie Finch MD Subjective: * Chief Complaints: [...] * Procedure Codes: 4 5378 DIAGNOSTIC COLONOSCOPY, 85979 UPPER GI ENDOSCOPY, BIOPSY * * The named appointment provid er may or may not be the originator of this progress note, and it is not deemed complete until electronically signed by the appointment provider. Sign off status: Pending * Provider: Fidel Mercado MD Date: 0 10/03/2023 Generated for Nehemiah ashford/Opal/eTransmitting on: 0 12/14/2024 07:32 AM EDT
--- OUTSIDE RECORDS SUMMARY | 2024-12-14 07:33 | XMS_ITS | Encounter Summary ---
Author Organization [facility] Address [address] [place] [address] Phone Care Team Providers Care Rfid Strategist Name Role Phone Archie Finch MD Primary Care Provider + [phone] Carmita Dietz NP Primary Care Provid er Encounter Details Date Type Department Care Team (Late st Contact Info) Description 04/14/2020 Procedure Pass Non-Invasive Cardiology [address] [place] [address] Social History Tobacco Use Types Packs/Day Years Used Date Smoking Tobacco: Never Smokeless Tobacco: Never Comments Unknown Sex and Gender Information Value Date Recorded Sex Assigned at Not on file Legal Sex Female 10:09 PM EDT Gender Identity Not on file Sexual Orientation Not on file documented as of this encounter Plan of Treatment Not on file documented as of this encounter Visit Diagnoses Not on filedocumented in this encounter Care Teams Rfid Strategist Relationship Specialty Start Date End Date Archie Finch MD [address] [place] [address] PCP - General Internal Medicine 07/08/19 08/11/23 Carmita Dietz NP [address] [place] [address] [place] [address] PCP - General Nurse Practitioner 08/12/23 documented as of this encounter Additional Source Comments The information contained in this document represents components of the legal health record. It is not the complete legal health record.[facility]
--- OUTSIDE RECORDS SUMMARY | 2024-12-14 07:33 | XMS_ITS | Encounter Summary ---
Author Organization [facility] Address [address] [facility] [address] [place] [address] Phone Care Team Providers Care Civil Engineering Manager Name Role Phone Carmita Dietz PASSENGER RATE CLERK-C Primary Care Provider + Reason for Visit * Reason Comments Med Refill Encounter Details Date Type Department Care Team (Late st Contact Info) Description 02/27/2023 Refill [facility] [address] [place] [phone] Arsen Villegas MD Social History Tobacco Use [...] on filedocumented in this encounter Care Teams Civil Engineering Manager Relationship Specialty Start Date End Date Carmita Dietz NP-C [address] [place] [address] PCP - General Nurse Practitioner 07/18/22 documented as of this encounter
--- OUTSIDE RECORDS SUMMARY | 2024-12-14 07:33 | XMS_ITS | Clinical Summary ---
Author Organization [facility] ity Address [address] [place] [address] Care Team Providers Care Harvester Operator Name Role Phone Unavailable Primary Care Provider [...] nts (1 - 1-dose 75+ series) 12/07/2018 Falls Risk Assessment 12/10/2023 Osteoporosis Screening (Bone Density Screening) 12/10/2023 Social Influencers of Health Screening 12/10/2023 COVID-19 Vaccine ( - 2023-2 5 season) 2024 Depression Screening 05/13/2024 Influenza Vaccine (#1) 2025 HIB Vaccines Aged Out No longer [...]
[2024-12-14 08:12] LABS: Hematocrit 32.0 % (37.0-47.0); Hemoglobin 10.1 g/dl (12.0-16.0); Mean Corpuscular HGB Conc 31.6 g/dl (31.0-35.0); Mean Corpuscular Hemoglobin 26.6 pg (27.0-33.0); Mean Corpuscular Volume 84.4 fL (80.0-98.0); NRBC Abs Auto 0.000 X10*3/uL (0.0-0.012); NRBC Pct Auto 0.0 /100WBC (0.0-0.2); Platelet Count 251 X10*3/uL (160-400); Red Blood Count 3.79 X10*6/uL (4.20-5.50); White Blood Count 8.5 X10*3/uL (4.8-10.8)
[2024-12-14 08:24] LABS: Hemoglobin A1C 125.6823 umol/L; Total Hemoglobin (HGBA1C) 2726.5132 umol/L
[2024-12-14 08:41] LABS: Anion Gap 14 (12-20); Blood Urea Nitrogen 20 mg/dL (9-16); Calcium 10.6 mg/dL (8.4-10.2); Carbon Dioxide 25 mmol/L (22-29); Chloride 108 mmol/L (96-108); Estimated Glomerular Filt Rate 44; Iron 26 mcg/dL (30-160); Magnesium 1.7 mg/dL (1.6-2.6); Percent Iron Saturation 7 % (15-50); Potassium 4.5 mmol/L (3.3-5.1); Sodium 142 mmol/L (135-145); Total Iron Binding Capacity 377 mcg/dL (228-428); Unsaturated Iron Binding 351 ug/dL
[2024-12-14 08:43] LABS: Parathyroid Hormone Intact 236.9 pg/mL (8.7-77.1)
[2024-12-14 08:56] LABS: Ferritin 14 ng/mL (10-250)
== END 2024-12-14 07:31 | disposition home or self-care (01) ==
LOC: HO.LAB 07:30
PROVIDERS: Absent Provider Internal Medicine Endocrinology, Diabetes & Metabolism; PCP Nurse Practitioner Primary Care; Visit Provider Internal Medicine Hypertension Specialist
DX: E11.22 Type 2 diabetes mellitus with diabetic chronic kidney disease (principal); N18.9 Chronic kidney disease, unspecified; E83.52 Hypercalcemia
CPT/HCPCS: 36415; 80048; 82306; 82728; 83036; 83540; 83735; 83970; 85027

== ENCOUNTER → 2025-01-02 23:59 | Outpatient (BNV) | payer MEDICARE, SELFPAY ==
--- NOTE | 2025-01-10 13:40 | A.OFFVIS_ITS ---
Intake Visit Reasons: Remote device check- [employer] Allergies EMELIA Inhibitors Adverse Reaction (Severe, Verified 11/09/24 14:08) Angioedema PFSH Medical History (Updated 11/09/24 @ 14:26 by Arsen Villegas MD) Pacemaker at end of battery life Elevated lipase Mass of left lung AV block Type 2 diabetes mellitus with unspecified complications Pacemaker Hypercholesteremia GERD (gastroesophageal reflux disease) Hypothyroid Hypertension Surgical History History of tonsillectomy H/O total knee replacement H/O: hysterectomy Hx of cholecystectomy Family History Mother HTN (hypertension) Heart attack Father No problems noted. Maternal Grandmother Breast cancer Social History Household Members: Spouse Housing: House Do you presently have visiting nurse or other home services: No Alcohol intake: current Alcohol intake frequency: holidays/special occasions only Patient Tobacco Use Status: Never used Tobacco Advance Directives Date on File: 08/13/23 service: No Office Procedures Cardiac Device Check Cardiac Device Check Details: Date of service- 01/02/2025 ; Battery life 10 years; normal lead parameters; AP 12.9%%; SERVICE DISPATCHER 98.5%; transient NSVT, otherwise no significant arrhythmias. Overall normal device function. [id number] Cardiac Device Interrogation, pacemaker Procedure code (CPT) selection complete Assessment & Plan Assessment & Plan (1) Pacemaker: Code(s): Z95.0 - Presence of cardiac pacemaker Category: Medical (2) AV block: Code(s): I44.30 - Unspecified atrioventricular block Category: Medical Plan x Coding Level of Care Code Procedure Only Diagnoses Pacemaker Z95.0 AV block I44.30 CPT Codes Cardiac Device Check - Cardiac Device 12: [id number] Cardiac Device Interrogation, pacemaker ([id number])
== END ==
PROVIDERS: PCP Nurse Practitioner Primary Care; Visit Provider Internal Medicine
DX: I44.30 Unspecified atrioventricular block (principal); Z95.0 Presence of cardiac pacemaker
CPT/HCPCS: 93294

== ENCOUNTER 2025-02-19 07:39 | Outpatient (REF) | payer MEDICARE, SELFPAY ==
--- OUTSIDE RECORDS SUMMARY | 2025-02-19 07:42 | XMS_ITS | Data Portability ---
Author Organization [place] [facility], Allergy Address [address] [address] Care Team Providers Care Prepared Foods Supervisor Name Role Phone JACOBO ABAD Primary Care [...] mupirocin 2 % topical ointment 2024 025 [facility][id number], [address] [place], [address], 5 11:51:39 Patient TargetsNo targets recorded. Patient InstructionsNo instructions recorded. Reason for Referral None Reported. Problems Name Problem SNOMED Code Status Onset Date Resolution Date Notes Provider Name and Address Organization Details Recorded Time Migraine 05443618 Active 2017 Other migraine , not intracta ble, without status migraino kervin; Note: Date Diagnose d: 8 10:47 AM (G43.809 ) Not Available [facility] 4 03:07:58 Follow-u p visit Active 2017 Encounte r for follow-u p examinat ion after complete d treatmen t for conditio ns other than malignan t neoplasm ; Note: Date Diagnose d: 04/21/20 18 2:55 PM (Z09) Not Available [facility] 4 03:08:00 Chronic sphenoid al sinusiti s 80669244 Completed 201712/13/2023 Chronic sphenoid al sinusiti s; Note: Date Diagnose d: 04/28/20 18 8:26 PM (J32.3) Chroni c sphenoid al sinusiti s; Note: Date Diagnose d: 8 11:01 AM (J32.3) ; Start Date : 02/11/20 18 Not Available [facility] 4 03:07:58 Headache 09739781 Active 2019 Facial pain NOS; Note: Date Diagnose d: 02/25/20 20 1:22 PM (R51) Facial pain NOS; Note: Date Diagnose d: 8 10:47 AM (R51) ; Start Date : 02/11/20 18 Not Available [facility] 4 03:07:59 Ulcerati ve rhinitis 97895958 Active 2019 Nasal mucositi s (ulcerat adriana); Note: Date Diagnose d: 0 1:36 PM (J34.81) Not Available [facility] 4 03:08:00 Angioede ma 31582593 Active 2023 Angioneu rotic edema, initial encounte r; Note: Date Diagnose d: 4 9:06 AM (T78.3XX A) Not Available [facility] 4 03:08:00 Gastroes ophageal reflux disease 375959099 Active 2024 SANDIE WILLIAM MD [address] [facility] [place] [facility] [place], [address] , [facility] 5 08:18:24 Obstruct adriana sleep apnea syndrome 33859689 Active 2024 SANDIE WILLIAM MD [address], [place], [address] , [facility] 5 08:18:33 Problem Notes None recorded. Procedures Surgical History Date Name Laterality Status Provider Name and Address Organization Details Recorded Time 06/12/19 Fiberoptic Laryngoscopy (Comprehensive) completed SANDIE WILLIAM MD [address] [facility],[place] [address], [place], [address], [facility] 06/13/2024 08:17:40 Imaging Results None recorded. [...] layed release 06/12 completed Medicati on ID: [id number] D uration Value: 90 Brand Name: pantopra zole Sen d Method: E-Prescr ibed Sub s Allowed: subs OK Speci al Instruct ion: TAKE 1 TABLET BY ORAL ROUTE DAILY Me dication GenericN radha: pantopra zole Not Available Not Available Not Available pravastat in 20 mg tablet 2017 active Medicati on ID: [id number] D uration Value: 90 Brand Name: pravasta [...] by mouth 06/12 completed Medicati on ID: [id number] D uration Value: 7 Prescri bed By Name: Sandie weiss MD Brand Name: cefuroxi me axetil S end Method: E-Prescr ibed Sub s Allowed: subs OK Medic ationGen ericName : cefuroxi me axetil Not Available Not Available Not Available amoxicill in 875 mg-potass ium clavulana te 125 mg tablet 05/09 completed Medicati on ID: [id number] D uration Value: 10 Reason: () Brand [...] Available Advil 04/21 completed Medicati on ID: [id number] R sergio: () Brand Name: advil Se nd Method: E-Prescr ibed Sub s Allowed: subs OK Medic ationGen ericName : advil Not Available Not Available Not Available Tylenol 06/12 completed Medicati on ID: [id number] B rand Name: tylenol Send Method: E-Prescr ibed Sub s Allowed: subs OK Medic ationGen ericName : tylenol Not Available Not Available Not Available amlodipin e 10 mg-benaze pril 40 mg capsule 06/12 completed Medicati on ID: [id number] D uration Value: 90 Brand Name: amlodipi [...] Updated DateTime 06/12/2024 157.48 cm 36.6 kg/m2 71494.47 g Georgette Lynn [place] - [facility] 06/12/2024 11:32:13 Social History None recorded. [...] Diagnosis SNOMED-CT Code Diagnosis ICD10 Code Diagnosis IMO Codes Diagnosis Note 15557 SANDIE WILLIAM MD [facility] [address] [address] 06/12/2024 11:19:33 06/12/2024 11:55:40 Ulcerative rhinitis 16511124 J34.81 Gastroesop hageal reflux disease 082242697 K21.00 Obstructiv e sleep apnea syndrome 30148692 G47.33 Health Concerns Section Related Observation LastModified by Organization Detai ls LastModified Time None Recorded Concern Status LastModified by Organization Details LastModified Time None Recorded Advance Directives Directive None Recorded Payers Insurance Date Sequence Insurance Name Policy Number Policy Lara Covered Member ID Lara Member ID Guarantor Name 06/12/2024 1 [facility] [id number] Annetta E E McElwey [id number] Annetta E McElwey 06/15/2024 1 [facility] (MEDICARE REPLACEMENT /ADVANTAGE - PPO) [id number] Annetta E E McElwey [id number] Annetta E McElwey Notes Date Note Type Note Provider Name and Address Organization Details Recorded Time 06/12/2024 text/html ROS as noted in the HPI 78 yo F presents for evaluation of her throatangioedema last [facility] dark red streaks new FAINA CPAP, right side of nose gets crusting, uses AYR saline and gel esophagitis and gastritis in September, on omeprazole gets scratchy, this week is a little better SANDIE WILLIAM MD [address] [place] [address], [phone], [facility] - [facility] 06/13/2024 08:20:50 OBGyn Episode No OBEpisode recorded.
[2025-02-19 08:56] LABS: Magnesium 1.7 mg/dL (1.6-2.6)
== END 2025-02-19 07:40 | disposition home or self-care (01) ==
LOC: HO.LABR 07:39
PROVIDERS: Visit Provider Nurse Practitioner Primary Care
DX: G47.33 Obstructive sleep apnea (adult) (pediatric) (principal); R91.1 Solitary pulmonary nodule
CPT/HCPCS: 36415; 83735; 99212

== ENCOUNTER 2025-02-19 10:35 | Outpatient (AMB) | payer MEDICARE, SELFPAY ==
[2025-02-19 10:37] VITALS: BP 118/62; PULSE 100; O2SAT 98; BMI 38.6
--- NOTE | 2025-02-19 10:37 | A.OFFVIS_ITS ---
Vital Signs 02/19/25 10:37 Height 5 ft 2 in Weight 211 lb BMI 38.6 BP 118/62 Blood Pressure Location Rt brachial Position Sitting Pulse 100 Pulse Source Pulse Oximeter Pulse Oximetry (%) 98 Oxygen Delivery Method Room Air Intake Visit Reasons: Obstructive sleep apnea Allergies EMELIA Inhibitors Adverse Reaction (Severe, Verified 02/19/25 10:45) Angioedema HPI HPI Obstructive sleep apnea: Details: 79-year-old lady, lifetime nonsmoker, with no family history of lung disease, but family history of breast cancer recently admitted and treated for pancreatitis. On CT abdomen obtained to evaluate abdominal pain left basilar pulmonary nodule was noted. Dedicated CT chest did not demonstrate any other nodules. Patient denied unintended weight loss. Patient had an outpatient PET CT that did not demonstrate significant FDG uptake in the previously noted nodule, but has some mild peripheral uptake and also FDG uptake in the rectum. Patient continues on CPAP therapy with good control of her sleep apnea symptoms. Her six-month follow-up CT chest showed no changes in underlying index pulmo nary nodule. She is scheduled to undergo revision of her pacemaker wires. [facility] Medical History (Updated 11/09/24 @ 14:26 by Arsen Villegas MD) Pacemaker at end of battery life Elevated lipase Mass of left lung AV block Type 2 diabetes mellitus with unspecified complications Pacemaker Hypercholesteremia GERD (gastroesophageal reflux disease) Hypothyroid Hypertension Surgical History History of tonsillectomy H/O total knee replacement H/O: hysterectomy Hx of cholecystectomy Family History Mother HTN (hypertension) Heart attack Father No problems noted. Maternal Grandmother Breast cancer Social History Household Members: Spouse Housing: House Do you presently have visiting nurse or other home services: No Alcohol intake: current Alcohol intake frequency: holidays/special occasions only Patient Tobacco Use Status: Never used Tobacco Advance Directives Date on File: 08/13/23 service: No Review of Systems Const Denies daytime sleepiness, Denies excessive sweating, Denies fatigue, Denies fever(s), Denies lethargy, Denies malaise, Denies night sweats, Denies snoring and Denies weight loss Eyes Denies blurry vision and Denies itchy eyes ENT Denies nasal congestion, Denies post nasal drip, Denies sinus pain, Denies sinus pressure and Denies other ( Thrush) Card Denies chest pain, Denies pedal edema, Denies dyspnea, Denies orthopnea and Denies paroxysmal nocturnal dyspnea Resp Denies cough, Denies hemoptysis, Denies excessive phlegm production, Denies dyspnea, Denies snoring and Denies wheezing GI Denies abdominal pain and Denies heartburn Musc Denies myalgias, Denies arthralgias and Denies joint swelling Skin/Breast Denies rash Neuro Denies memory loss and Denies seizure-like activity Psych Denies abnormal sleep pattern, Denies anxiety and Denies memory loss Endo Denies excessive sweating, Denies fatigue and Denies heat intolerance Abe/Lymph Denies easy bruising Aller/Immun Denies itchy eyes, Denies seasonal rhinorrhea and Denies wheezing Physical Exam Vital Signs: Last Vital Signs Pulse 100 02/19/25 10:37 BP 118/62 02/19/25 10:37 Pulse Ox 98 02/19/25 10:37 Oxygen Delivery Method Room Air 02/19/25 10:37 BMI result Body Mass Index 38.6 Const General: no acute distress and alert Nutritional Appearance: not obese Orientation/consciousness: Other orientation findings ( oriented) HEENT Head: Yes atraumatic Eyes General: appearance normal, both eyes and all related structures Sclerae: sclerae normal EOM: EOMs intact bilaterally Neck Neck: Yes supple Lymphatic: no lymphadenopathy noted Resp Effort & Inspection: normal respiratory effort and no use of accessory muscles Auscultation: clear to auscultation bilaterally Cardio Rate: regular rate Rhythm: regular rhythm Heart sounds: no gallops, no murmurs and no rubs Skin General skin exam: other ( warm) Extrem General: No clubbing, No cyanosis and No edema Assessment & Plan Assessment & Plan (1) Pulmonary nodule 1 cm or greater in diameter: Code(s): R91.1 - Solitary pulmonary nodule Category: Medical Plan: No changes on previous six-month follow-up CT scan. Twelve months follow-up CT scan is pending for March of 2025. (2) FAINA (obstructive sleep apnea): Code(s): G47.33 - Obstructive sleep apnea (adult) (pediatric) Category: Medical Plan: Therapy and compliance report reviewed - patient is benefitting from and is compliant with noninvasive positive pressure ventilation treatment, using it greater than 70% of the time, more than 4 hours per night. Continue current CPAP therapy. Coding Level of Care Code Est Pt Level 4 (94160) Diagnoses Pulmonary nodule 1 cm or greater in diameter R91.1 FAINA (obstructive sleep apnea) G47.33
== END 2025-02-19 10:59 | disposition home or self-care (01) ==
LOC: HO.HPS 10:35
PROVIDERS: PCP Nurse Practitioner Primary Care; Visit Provider Internal Medicine Pulmonary Disease
DX: R91.1 Solitary pulmonary nodule (principal); G47.33 Obstructive sleep apnea (adult) (pediatric)
CPT/HCPCS: 99214

== ENCOUNTER 2025-03-09 14:48 | Outpatient (REF) | payer MEDICARE, SELFPAY ==
--- OUTSIDE RECORDS SUMMARY | 2020-02-16 11:20 | XMS_ITS | Encounter Summary ---
Author Organization [facility] Address [address] [facility] [address] [place] [address] Phone Care Team Providers Care Automotive Leasing Sales Representative Name Role Phone Archie Finch MD Primary Care Provider +1 -[phone] Encounter Details Date Type Department Care Team (Late st Contact Info) Description 02/16/2020 11:20 AM EDT Hospital Encounter [facility] [address] [place] [address] Christine Lemos CNP 12 [place], [place] [phone] [email or web address] Social History Tobacco Use Types [...] Laterality Modality Ankle Right, Foot Right [facility] 02/16/2020 11:3 6 AM EDT Impressions 02/16/2020 11:38 AM EDT Pronounced Achilles enthesopathy and distal tendon calcification with overlying soft tissue swelling but without acute bony pathology apparent. POS - [id number] Narrative 02/16/2020 11:38 AM EDT COMPARISON: None [...] but without acute bony pathologyapparent. POS - [id number] Christine Lemos NURSE CHARGE RN IMG XR LOWER EXTREMITY Mae l Result documented in this encounter Visit Diagnoses Not on filedocumented in this encounter Care Teams Automotive Leasing Sales Representative Relationship Specialty Start Date End Date Archie Finch MD [address] [place] [address] PCP - General Internal Medicine 07/08/19 08/11/23 documented as of this encounter Additional Source Comments The information contained in this document represents components of the legal health record. It is not the complete legal health record.[facility]
--- OUTSIDE RECORDS SUMMARY | 2020-04-18 12:37 | XMS_ITS | Encounter Summary ---
Author Organization [facility] Address [address] [facility] [address] [place] [address] Phone Care Team Providers Care Twist Maker Name Role Phone Archie Finch MD Primary Care Provider +1 -[phone] Encounter Details Date Type Department Care Team (Late st Contact Info) Description 04/18/2020 11:37 AM EST Hospital Encounter [facility] [address] [place] [address] Christine Lemos CNP 12 [place], [place] [phone] [email or web address] Social History [...] fracture bone scintigraphy could be considered. POS [id number] Narrative 04/18/2020 11:55 AM EST COMPARISON: None [...] fracture bone scintigraphy could be considered. POS [id number] Christine Lemos BRICK BURNER HEAD IMG XR CHEST Final Resul t documented in this encounter Visit Diagnoses Not on filedocumented in this encounter Care Teams Twist Maker Relationship Specialty Start Date End Date Archie Finch MD 300 [facility] [address] [place] [address] PCP - General Internal Medicine 07/08/19 08/11/23 documented as of this encounter Additional Source Comments The information contained in this document represents components of the legal health record. It is not the complete legal health record.[facility]
--- OUTSIDE RECORDS SUMMARY | 2020-11-14 10:15 | XMS_ITS | Encounter Summary ---
Author Organization [facility] Address [address] [facility] [address] [place] [address] Phone Care Team Providers Care Paleology Teacher Name Role Phone Archie Finch MD Primary Care Provider [phone] [phone] Encounter Details Date Type Department Care Team (Late st Contact Info) Description 11/14/2020 10:15 AM EDT Hospital Encounter [facility] [address] [place] [address] Shakila Duff FNP 12 [place], [place] [phone] [email or web address] Social History Tobacco Use Types [...] IMPRESSION: No fracture or dislocation. Shakila Duff ENERGY AUDIT ADVISOR IMG XR LOWER EXTREMITY Mae l Result documented in this encounter Visit Diagnoses Not on filedocumented in this encounter Care Teams Paleology Teacher Relationship Specialty Start Date End Date Archie Finch MD [address] [place] [address] PCP - General Internal Medicine 07/08/19 08/11/23 documented as of this encounter Additional Source Comments The information contained in this document represents components of the legal health record. It is not the complete legal health record.[facility]
--- OUTSIDE RECORDS SUMMARY | 2022-05-23 12:49 | XMS_ITS | Encounter Summary ---
Author Organization [facility] Address [address] [place] [address] Phone Care Team Providers Care Stone And Plate Preparer Apprentice Name Role Phone Archie Finch MD Primary Care Provider [phone] Encounter Details Date Type Department Care Team (Late st Contact Info) Description 05/23/2022 11:49 AM EST Hospital Encounter [facility] [address] [place] [phone] Christine Lemos CNP [address] [place], [place] [phone] [email or web address] Social History Tobacco Use [...] tissue swelling. IMPRESSION: No fracture or dislocation. Chrisitne Coelho Aminta RAILWAY PATROL OFFICER IMG XR LOWER EXTREMITY Mae l Result documented in this encounter Visit Diagnoses Not on filedocumented in this encounter Care Teams Stone And Plate Preparer Apprentice Relationship Specialty Start Date End Date Archie Finch MD [address] [place] [address] PCP - General Internal Medicine 07/08/19 08/11/23 documented as of this encounter Additional Source Comments The information contained in this document represents components of the legal health record. It is not the complete legal health record.[facility]
--- OUTSIDE RECORDS SUMMARY | 2023-09-01 10:37 | XMS_ITS | Encounter Summary ---
Author Organization [facility] Address [address] [place] [address] Phone Care Team Providers Care Teaching Assistant Name Role Phone Carmita Dietz NP Primary Care Provid er Encounter Details Date Type Department Care Team (Late st Contact Info) Description 09/01/2023 10:37 AM EDT Hospital Encounter [facility] [address] [place] [address] Shakila Duff FNP 12 [place] [address] CHIRAG@[email or web address] Social History Tobacco Use Types Packs/Day [...] tissue swelling of the ankle. Shakila Duff GREASE MACHINE WORKER IMG XR LOWER EXTREMITY Mae l Result documented in this encounter Visit Diagnoses Not on filedocumented in this encounter Care Teams Teaching Assistant Relationship Specialty Start Date End Date Carmita Dietz NP [address] [place] [address] PCP - General Nurse Practitioner 08/12/23 documented as of this encounter Additional Source Comments The information contained in this document represents components of the legal health record. It is not the complete legal health record.[facility]
--- OUTSIDE RECORDS SUMMARY | 2023-09-01 10:37 | XMS_ITS | Encounter Summary ---
Author Organization [facility] Address [address] [place] [address] Phone Care Team Providers Care Spike Driver Name Role Phone Carmita Dietz NP Primary Care Provid er Encounter Details Date Type Department Care Team (Late st Contact Info) Description 09/01/2023 10:37 AM EDT Hospital Encounter [facility] [address] [place] [address] Shakila Duff FNP 12 [place] [address] [email or web address] Social History Tobacco Use [...] tissue swelling of the ankle. Shakila Duff LINUX SOLARIS ADMINISTRATOR IMG XR LOWER EXTREMITY Mae l Result documented in this encounter Visit Diagnoses Not on filedocumented in this encounter Care Teams Spike Driver Relationship Specialty Start Date End Date Carmita Dietz NP [address] [place] [address] PCP - General Nurse Practitioner 08/12/23 documented as of this encounter Additional Source Comments The information contained in this document represents components of the legal health record. It is not the complete legal health record.[facility]
--- OUTSIDE RECORDS SUMMARY | 2023-10-03 03:30 | XMS_ITS ---
Author Organization [facility] Address [address] [place] [address] Care Team Providers Care Manager Loss Prevention Name Role Phone Carmita Dietz N.P Primary Care Provider Un available Cash Mercado Unavailable [phone] REASON FOR VISIT abn ct scan colon, gerd,hiatal hernia,epigastric pain, Problems Problem Type SNOMED Code ICD Code Onset Dates Problem Status W/U Status Risk Notes Problem Diverticular disease of colon (718348562) Diverticulosis of large intestine without perforation or abscess without bleeding (K57.30) Active confirmed Problem Ulcer of esophagus (32235468) Ulcer of esophagus without bleeding (K22.10) Active confirmed Problem Chronic gastritis (3190816) Gastritis, chronic (K29.50) Active confirmed Encounters Encounter Location Date Provider Diagnosis [facility] Outpatient [address] [place] [phone] 10/03/[address] scan, colon [...] LULI DE LUNA EDOB:1945 (79 yo F)Acc No.[id number]:10/03/2023 EGD and COL/MAC Patient: LULI STONER E Provider: Fidel Mercado MD :1945 A ge:77 Y S ex:Female Date:10/03/2023 Address:[address] [place], [place] [id number] Pcp:Carmita Dietz N.P Subjective: * Chief Complaints: * 1 . [...] * Procedure Codes: 4 5378 DIAGNOSTIC COLONOSCOPY, 71002 UPPER GI ENDOSCOPY, BIOPSY * * The named appointment provid er may or may not be the originator of this progress note, and it is not deemed complete until electronically signed by the appointment provider. Sign off status: Pending * Provider: Fidel Mercado MD Date: 0 10/03/2023 Generated for Printi ng/Facynthiag/eTransmitting on: 1 07:13 PM EDT
--- OUTSIDE RECORDS SUMMARY | 2023-10-23 11:00 | XMS_ITS ---
Author Organization [facility] Address [address] [place] [address] Care Team Providers Care Stave Saw Operator Name Role Phone Carmita Dietz N.P Primary Care Provider Un available Cash Mercado Unavailable [phone] REASON FOR VISIT Patient presents today patient haven't been feeling well. Encounters Encounter Location Date Provider Diagnosis [facility] [address] [place] [phone] 10/23/2023 Cash Mercado Plan Of Treatment No Information Progress Notes * LULI DE LUNA EDOB:1945 (79 yo F)Acc No.[id number]:10/23/2023 Progress Notes Patient: LULI STONER Provider: Fidel Mercado MD :1945 A ge:77 Y S ex:Female Date:10/23/2023 Address:[address] [place] [address], [id number] Pcp:Carmita Dietz N.P Subjective: * Chief Complaints: * 1 . Patient presents today patient haven't been feeling well.. * Medical History: Objective: * Vitals: Assessment: Plan: * Treatment: * * The named appointment provid er may or may not be the originator of this progress note, and it is not deemed complete until electronically signed by the appointment provider. Sign off status: Pending * Provider: Fidel Mercado MD Date: 0 10/23/2023 Generated for Nehemiah ashford/Opal/eTransmitting on: 07:14 PM EDT
[2025-03-09 15:07] LABS: MANUAL DIFF FLAG NO
[2025-03-09 15:15] LABS: Hematocrit 32.6 % (37.0-47.0); Hemoglobin 10.2 g/dl (12.0-16.0); Imm Gran Abs Auto 0.04 X10*3/uL (0.00-0.03); Imm Gran Pct Auto 0.4 % (0.0-0.4); Lymphocytes Absolute Auto 2.2 X10*3/uL (1.2-4.9); Mean Corpuscular HGB Conc 31.3 g/dl (31.0-35.0); Mean Corpuscular Hemoglobin 26.0 pg (27.0-33.0); Mean Corpuscular Volume 83.2 fL (80.0-98.0); NRBC Abs Auto 0.000 X10*3/uL (0.0-0.012); NRBC Pct Auto 0.0 /100WBC (0.0-0.2); Platelet Count 241 X10*3/uL (160-400); Red Blood Count 3.92 X10*6/uL (4.20-5.50); White Blood Count 9.7 X10*3/uL (4.8-10.8)
[2025-03-09 16:07] LABS: Alanine Aminotransferase 14 U/L (0-31); Albumin Level 4.6 g/dL (3.5-5.0); Alkaline Phosphatase 81 U/L (39-117); Anion Gap 13 (12-20); Aspartate Amino Transferase 26 U/L (5-31); Blood Urea Nitrogen 20 mg/dL (9-16); Calcium 10.9 mg/dL (8.4-10.2); Carbon Dioxide 24 mmol/L (22-29); Chloride 109 mmol/L (96-108); Estimated Glomerular Filt Rate 39; Iron 45 mcg/dL (30-160); Percent Iron Saturation 11 % (15-50); Potassium 3.9 mmol/L (3.3-5.1); Sodium 142 mmol/L (135-145); Total Iron Binding Capacity 407 mcg/dL (228-428); Total Protein 7.5 g/dL (6.5-8.0); Unsaturated Iron Binding 362 ug/dL
[2025-03-09 16:21] LABS: Ferritin 17 ng/mL (10-250)
[2025-03-09 16:35] LABS: Vitamin B12 831 pg/mL (200-900)
[2025-03-09 17:44] LABS: Folate 6.0 ng/mL (> or = 4.0)
--- OUTSIDE RECORDS SUMMARY | 2025-03-09 19:15 | XMS_ITS | Encounter Summary ---
Author Organization [facility] Address [address] [facility] [address] [place] [address] Phone Care Team Providers Care Telecommunications Project Manager Name Role Phone Archie Finch MD Primary Care Provider + [phone] Carmita Dietz NP Primary Care Provid er Encounter Details Date Type Department Care Team (Late st Contact Info) Description 03/12/2020 Procedure Pass Non-Invasive Cardiology [address] [place] [address] Social History Tobacco Use Types Packs/Day Years [...] on filedocumented in this encounter Care Teams Telecommunications Project Manager Relationship Specialty Start Date End Date Archie Finch MD [address] [place] [address] PCP - General Internal Medicine 07/08/19 08/11/23 Carmita Dietz NP [address] [place] [address] [place] [address] PCP - General Nurse Practitioner 08/12/23 documented as of this encounter Additional Source Comments The information contained in this document represents components of the legal health record. It is not the complete legal health record.[facility]
--- OUTSIDE RECORDS SUMMARY | 2025-03-09 19:15 | XMS_ITS | Encounter Summary ---
Author Organization [facility] Address [address] [facility] [address] [place] [address] Phone Care Team Providers Care Claim Analyst Name Role Phone Damien Mcgrath MD Primary Care Provider Archie Flores MD Primary Care Provider [phone] Carmita Dietz NP Primary Care Provid er Encounter Details Date Type Department Care Team (Latest Contact Info) Description 03/02/2017 Ancillary Orders [facility] [address] [facility] 3rd Floor, [address] [place] [address] Kash Sarabia MD [address] [place] [address] [email or web address] Diagnosis unknown Social History Tobacco Use Types Packs/Day Years Used Date Smoking Tobacco: Never Assessed Comments Unknown Sex and Gender Information Value Date Recorded Sex Assigned at Not on file Legal Sex Female 10:09 PM EDT Gender Identity Not on file Sexual Orientation Not on file documented as of this encounter Plan of Treatment Not on file documented as of this encounter Results * DEVICE CHECK: PPM REMOTE INTERROGATION WITH BOILERMAKER PIPE FITTER REVIEW (04/15/2018 10:27 AM EST) Narrative Kash Canas, DO - 04/18/2018 9:58 AM EST Reason for appointment: Remote pacemaker interrogation HPI: Routine 3 month remote pacemaker interrogation. No device related complaints. Indication for device: CHB Examination: Device type: Pacemaker Test Clerk: [employer] Mode: DDD LRL/UPL: 60/130 bpm Mode switches: 0 High V rates: 1 1-sec NSVT episode Thresholds, impedances, and sensing stable. Atrial pacin.9% Ventricular pacin.8% Battery: 5 yrs Additional comments: Device functioning appropriately. Normal device function. Patient to follow-up for continued monitoring every 3 months. Report prepared by Rob Sargent RN us Kash Sarabia MD [facility] ORDER BLAINE Final Result documented in this encounter Visit Diagnoses Diagnosis Diagnosis unknown Diagnosis unknown documented in this encounter Care Teams Claim Analyst Relationship Specialty Start Date End Date Damien Mcgrath MD PCP - General 02/28/17 07/07/19 Archie Finch MD [address] [place] [address] PCP - General Internal Medicine 07/08/19 08/11/23 Carmita Dietz NP [address] [place] [address] PCP - General Nurse Practitioner 08/12/23 documented as of this encounter Additional Source Comments The information contained in this document represents components of the legal health record. It is not the complete legal health record.[facility]
--- OUTSIDE RECORDS SUMMARY | 2025-03-09 19:15 | XMS_ITS | Encounter Summary ---
Author Organization [facility] Address [address] [facility] [address] [place] [address] Phone Care Team Providers Care Boat Person Name Role Phone Damien Mcgrath MD Primary Care Provider Unava Archie Lui MD Primary Care Provider [phone] Carmita Dietz NP Primary Care Provid er Encounter Details Date Type Department Care Team (Late st Contact Info) Description 03/02/2017 Ancillary [facility] [address] [place] [address] Kash Sarabia MD [address] [place] [address] [place] [address] [email or web address] Social History Tobacco Use Types Packs/Day Years [...] on filedocumented in this encounter Care Teams Boat Person Relationship Specialty Start Date End Date Damien Mcgrath MD PCP - General 02/28/17 07/07/19 Archie Finch MD [address] [facility] [address] [place] [address] PCP - General Internal Medicine 07/08/19 08/11/23 Carmita Dietz NP [address] [place] [address] PCP - General Nurse Practitioner 08/12/23 documented as of this encounter Additional Source Comments The information contained in this document represents components of the legal health record. It is not the complete legal health record.[facility]
--- OUTSIDE RECORDS SUMMARY | 2025-03-09 19:15 | XMS_ITS | Encounter Summary ---
Author Organization [facility] Address [address] [facility] [address] [place] [address] Phone Care Team Providers Care Photographic Press Screwmaker Name Role Phone Damien Mcgrath MD Primary Care Provider Archie Flores MD Primary Care Provider [phone] Carmita Dietz NP Primary Care Provid er Encounter Details Date Type Department Care Team (Latest Contact Info) Description 10/29/2017 Transcribe Orders [facility] [address] [place] [address] Maryuri Torres PA [address] [address] Hypercalcemia (Primary Dx) Social History Tobacco Use Types Packs/Day Years [...] Procedure Name Priority Date/Time Associated Diagnosis Comments TIMED URINE DATA Routine 10/29/2017 8:37 AM EDT RENAL PANEL Routine 10/29/2017 8:37 AM EDT Hypercalcemia Phosphorus, 24 hr urine Routine 10/29/2017 8:37 AM EDT Hypercalcemia CALCIUM, 24 HOUR URINE Routine 10/29/2017 8:37 AM EDT Hypercalcemia CREATININE, 24 HR URINE Routine 10/29/2017 8:37 AM EDT Hypercalcemia documented in this encounter Results * Timed urine data (10/29/2017 8:37 AM EDT) COLLECTION DATA 24 HOUR [facility] TOTAL VOLUME 1,050 mL [facility] 10/29/2017 8:37 AM EDT 10/29/2017 8:40 AM EDT us Maryuri MARSHALL URINE ORDERABLES Mae l Result [address] [address] * Phosphorus, 24 hr urine (10/29/2017 8:37 AM EDT) URINE PHOSPHORUS 50.8 mg/dL [facility] PHOSPHORUS OUTPUT 533.4 400 - 1,300 mg/total output [facility] Urine (Urine) 10/29/2017 8:3 7 AM EDT 10/29/2017 8:40 AM EDT us Maryuri MARSHALL URINE ORDERABLES Mae l Result [address] [address] * Creatinine, 24 hr urine (10/29/2017 8:37 AM EDT) URINE CREATININE 96 mg/dL [facility] CREATININE OUTPUT 1,008 600 - 1,800 mg/total output [facility] Urine (Urine) 10/29/2017 8:3 7 AM EDT 10/29/2017 8:40 AM EDT AnagnosticsMaryurihakeem Torres PA URINE ORDERABLES Mae l Result [address] [address] * (ABNORMAL) Calcium, 24 hour urine (10/29/2017 8:37 AM EDT) URINE CALCIUM 3.9 mg/dL [facility] CALCIUM OUTPUT 41(L) 100 - 300 mg/total output [facility] Urine (Urine) 10/29/2017 8:3 7 AM EDT 10/29/2017 8:40 AM EDT Maryuri MARSHALL URINE ORDERABLES Mae l Result Performing Organization Address [facility] Co de Phone Number [address] [address] * (ABNORMAL) Renal panel (10/29/2017 8:37 AM EDT) SODIUM 144 133 - 146 mmol/L [facility] POTASSIUM 4.9 3.3 - 5.1 mmol/L [facility] CHLORIDE 104 96 - 108 mmol/L [facility] CO2 26 21 - 35 mmol/L [facility] GLUCOSE 135(H) 70 - 99 mg/dL [facility] BUN 20(H) 6 - 19 mg/dL [facility] CREATININE 1.20 0.5 - 1.5 mg/dL [facility] CALCIUM 10.6(H) 8.4 - 10.3 mg/dL [facility] PHOSPHORUS 3.2 2.7 - 4.5 mg/dL [facility] ALBUMIN 3.9 3.9 - 4.8 g/dL [facility] EGFR 45(L) >59 mL/min/1.7 3m2 [facility] Comment:If patient is black, multiply result by 1.159. Estimated glomerular filtration rate calculated using the CKD-EPI equation. ANION GAP 19 10 - 20 mmol/L [facility] Blood 10/29/2017 8:37 AM EDT 10/29/2017 8:39 AM EDT us Maryuri Luna Brian [facility] LAB BLOOD ORDERABLES Final Result [facility] [address] [place] [address] documented in this encounter Visit Diagnoses Diagnosis Hypercalcemia- Primary documented in this encounter Care Teams Photographic Press Screwmaker Relationship Specialty Start Date End Date Damien Mcgrath MD PCP - General 02/28/17 07/07/19 Archie Finch MD [address] [place] [address] PCP - General Internal Medicine 07/08/19 08/11/23 Carmita Dietz NP [address] [place] [address] PCP - General Nurse Practitioner 08/12/23 documented as of this encounter Additional Source Comments The information contained in this document represents components of the legal health record. It is not the complete legal health record.[facility]
--- OUTSIDE RECORDS SUMMARY | 2025-03-09 19:15 | XMS_ITS | Encounter Summary ---
Author Organization [facility] Address [address] [facility] [address] [place] [address] Phone Care Team Providers Care Metal Fabricator Apprentice Name Role Phone Archie Finch MD Primary Care Provider + [phone] Carmita Dietz NP Primary Care Provid er Encounter Details Date Type Department Care Team (Late st Contact Info) Description 04/14/2020 Procedure Pass Non-Invasive Cardiology [address] [place] [address] Social History Tobacco Use Types Packs/Day Years [...] on filedocumented in this encounter Care Teams Metal Fabricator Apprentice Relationship Specialty Start Date End Date Archie Finch MD [address] [place] [address] PCP - General Internal Medicine 07/08/19 08/11/23 Carmita Dietz NP [address] [place] [address] [place] [address] PCP - General Nurse Practitioner 08/12/23 documented as of this encounter Additional Source Comments The information contained in this document represents components of the legal health record. It is not the complete legal health record.[facility]
--- OUTSIDE RECORDS SUMMARY | 2025-03-09 19:16 | XMS_ITS | Data Portability ---
Author Organization [place] [facility] Address [address] [address] Care Team Providers Care Rooming House Operator Name Role Phone JACOBO ABAD Primary [...] mupirocin 2 % topical ointment 2024 025 [facility][id number], [address] [place], [address], 5 11:51:39 Patient TargetsNo targets recorded. Patient InstructionsNo instructions recorded. Reason for Referral None Reported. Problems Name Problem SNOMED Code Status Onset Date Resolution Date Notes Provider Name and Address Organization Details Recorded Time Migraine 82614206 Active 2017 Other migraine , not intracta ble, without status migraino kervin; Note: Date Diagnose d: 8 10:47 AM (G43.809 ) Not Available [facility] 4 03:07:58 Follow-u p visit Active 2017 Encounte r for follow-u p examinat ion after complete d treatmen t for conditio ns other than malignan t neoplasm ; Note: Date Diagnose d: 04/21/20 18 2:55 PM (Z09) Not Available [facility] 4 03:08:00 Chronic sphenoid al sinusiti s 29566737 Completed 201712/13/2023 Chronic sphenoid al sinusiti s; Note: Date Diagnose d: 04/28/20 18 8:26 PM (J32.3) Chroni c sphenoid al sinusiti s; Note: Date Diagnose d: 8 11:01 AM (J32.3) ; Start Date : 02/11/20 18 Not Available [facility] 4 03:07:58 Headache 29360038 Active 2019 Facial pain NOS; Note: Date Diagnose d: 02/25/20 20 1:22 PM (R51) Facial pain NOS; Note: Date Diagnose d: 8 10:47 AM (R51) ; Start Date : 02/11/20 18 Not Available [facility] 4 03:07:59 Ulcerati ve rhinitis 93276210 Active 2019 Nasal mucositi s (ulcerat adriana); Note: Date Diagnose d: 0 1:36 PM (J34.81) Not Available [facility] 4 03:08:00 Angioede ma 16839520 Active 2023 Angioneu rotic edema, initial encounte r; Note: Date Diagnose d: 4 9:06 AM (T78.3XX A) Not Available [facility] 4 03:08:00 Gastroes ophageal reflux disease 863169025 Active 2024 SANDIE WILLIAM MD [address] [facility] [place],RAJINDER [facility], [facility] [place], [address] , [facility] 5 08:18:24 Obstruct adriana sleep apnea syndrome 32975779 Active 2024 SANDIE WILLIAM MD [address],RAJIND[address], [facility] [place], [address] , [facility] 5 08:18:33 Problem Notes None recorded. Procedures Surgical History Date Name Laterality Status Provider Name and Address Organization Details Recorded Time 06/12/19 Fiberoptic Laryngoscopy (Comprehensive) completed SANDIE WILLIAM MD 100 [facility],[place] [address], [place], [address], [facility] 06/13/2024 08:17:40 Imaging Results None recorded. [...] layed release 06/12 completed Medicati on ID: [id number] D uration Value: 90 Brand Name: pantopra zole Sen d Method: E-Prescr ibed Sub s Allowed: subs OK Speci al Instruct ion: TAKE 1 TABLET BY ORAL ROUTE DAILY Me dication GenericN radha: pantopra zole Not Available Not Available Not Available pravastat in 20 mg tablet 2017 active Medicati on ID: [id number] D uration Value: 90 Brand Name: pravasta [...] by mouth 06/12 completed Medicati on ID: [id number] D uration Value: 7 Prescri bed By Name: Sandie weiss MD Brand Name: cefuroxi me axetil S end Method: E-Prescr ibed Sub s Allowed: subs OK Medic ationGen ericName : cefuroxi me axetil Not Available Not Available Not Available amoxicill in 875 mg-potass ium clavulana te 125 mg tablet 05/09 completed Medicati on ID: [id number] D uration Value: 10 Reason: () Brand [...] Available Advil 04/21 completed Medicati on ID: [id number] R sergio: () Brand Name: advil Se nd Method: E-Prescr ibed Sub s Allowed: subs OK Medic ationGen ericName : advil Not Available Not Available Not Available Tylenol 06/12 completed Medicati on ID: [id number] B rand Name: tylenol Send Method: E-Prescr ibed Sub s Allowed: subs OK Medic ationGen ericName : tylenol Not Available Not Available Not Available amlodipin e 10 mg-benaze pril 40 mg capsule 06/12 completed Medicati on ID: [id number] D uration Value: 90 Brand Name: amlodipi [...] Updated DateTime 06/12/2024 157.48 cm 36.6 kg/m2 97781.47 g Georgette Lynn [place] - [facility] 06/12/2024 11:32:13 Social History None recorded. [...] ICD10 Code Diagnosis IMO Codes Diagnosis Note 60190 SANDIE WILLIAM MD [facility] [address] [address] 06/12/2024 11:19:33 06/12/2024 11:55:40 Ulcerative rhinitis 57468179 J34.81 Gastroesop hageal reflux disease 769177593 K21.00 Obstructiv e sleep apnea syndrome 00630780 G47.33 Health Concerns Section Related Observation LastModified by Organization Detai ls LastModified Time None Recorded Concern Status LastModified by Organization Details LastModified Time None Recorded Advance Directives Directive None Recorded Payers Insurance Date Sequence Insurance Name Policy Number Policy Lara Covered Member ID Lara Member ID Guarantor Name 06/12/2024 1 [facility] [id number] Annetta E E McElwey [id number] Annetta E McElwey 06/15/2024 1 [facility] (MEDICARE REPLACEMENT /ADVANTAGE - PPO) [id number] Annetta E E McElwey [id number] Annetta E McElwey Notes Date Note Type Note Provider Name and Address Organization Details Recorded Time 06/12/2024 text/html ROS as noted in the HPI 78 yo F presents for evaluation of her throatangioedema last year seen at [facility] [place] new FAINA CPAP, right side of nose gets crusting, uses AYR saline and gel esophagitis and gastritis in September, on omeprazole gets scratchy, this week is a little better SANDIE WILLIAM MD [address] [place] [address], [phone], [facility] - [facility] 06/13/2024 08:20:50 OBGyn Episode No OBEpisode recorded.
--- OUTSIDE RECORDS SUMMARY | 2025-03-09 19:16 | XMS_ITS | Clinical Summary ---
Author Organization [facility] ity Address [address] [place] [address] Care Team Providers Care Warping Mill Operator Name Role Phone Unavailable Primary Care [...] 12/10/2023 Social Influencers of Health Screening 12/10/2023 Depression Screening 05/13/2024 COVID-19 Vaccine (1 - 2023-2 5 season) 2025 Influenza Vaccine (#1) 2025 HIB Vaccines Aged [...]
--- OUTSIDE RECORDS SUMMARY | 2025-03-09 19:16 | XMS_ITS | Encounter Summary ---
Author Organization [facility] Address [address] [facility] [address] [place] [address] Phone Care Team Providers Care Assistant Store Director Name Role Phone Carmita Dietz NP Primary Care Provid er Encounter Details Date Type Department Care Team (Late st Contact Info) Description 12/16/2023 Procedure Pass Non-Invasive Cardiology [address] [place] [address] Social History Tobacco Use Types Packs/Day Years Used Date Smoking Tobacco: Never Smokeless Tobacco: Never Home Health Assessment: Transportation Answer Date Recorded [...] with a working camera? Not on file Comments Unknown Sex and Gender Information Value Date Recorded Sex Assigned at Not on file Legal Sex Female 10:09 PM EDT Gender Identity Not on file Sexual Orientation Not on file documented as of this encounter Plan of Treatment Not on file documented as of this encounter Visit Diagnoses Not on filedocumented in this encounter Care Teams Assistant Store Director Relationship Specialty Start Date End Date Carmita Dietz NP [address] [place] [address] PCP - General Nurse Practitioner 08/12/23 documented as of this encounter Additional Source Comments The information contained in this document represents components of the legal health record. It is not the complete legal health record.[facility]
--- OUTSIDE RECORDS SUMMARY | 2025-03-09 19:16 | XMS_ITS | Patient Health Record ---
Author Organization [facility] Address [address] [place] [address] Care Team Providers Care Crm Business Analyst Name Role Phone Carmita Dietz N.P Primary Care Provider Un available Cash Mercado Unavailable [phone] Allergies Allergen (clinical drug ingredient) Drug/Non Drug Allergy documented on EMR Reaction Allergy Type Onset Date Status angiotensin-converting enzyme inhibitor (FN) EMLEIA Inhibitors Unknown Drug Allergy Acti ve Results Component Value Reference Range Notes Ferritin (Not yet reviewed b y provider) Interpretation: Performing Lab:[facility], [address] [place] [phone] Notes/Report: Ferritin 17 10-250 ng/mL Vitamin B12 and Folate (Not yet reviewed by provider) Interpretation: Performing Lab:[facility], [address] [place] [phone] Notes/Report: Vitamin B12 831 200-900 pg/mL NORMAL 200-900 PG/ML INDETERMINATE 160-199 PG/ML DEFICIENT < 160 PG/ML Folate 6.0 > or = 4.0 ng/mL Reference Values: > or = 4.0 ng/mL < 4.0 ng/mL suggests folate deficiency Methotrexate, aminopterin and folinic acid (leucovorin) are chemotherapeutic agents whose molecular structures are similar to folate; therefore, the [employer] folate assay cannot be used for patients using these drugs. Complete Blood Count Auto Di ff (Not yet reviewed by provider) Interpretation: Performing Lab:[facility], [address] [place] [phone] Notes/Report: White Blood Count 9.7 4.8-10.8 X10*3/uL Red Blood Count 3.92 4.20-5.50 X10*6/uL Hemoglobin 10.2 12.0-16.0 g/dl Hematocrit 32.6 37.0-47.0 % Mean Corpuscular Volume 83.2 80.0-98.0 fL Mean Corpuscular Hemoglobin 26.0 27.0-33.0 pg Mean Corpuscular HGB Conc 31.3 31.0-35.0 g/dl Red Cell Distribution Width 14.6 11.0-16.0 % Platelet Count 241 160-400 X10*3/uL Mean Platelet Volume 10.0 9.4-12.3 fL Neutrophils Percent Auto 64.4 45-73 % Imm Gran Pct Auto 0.4 0.0-0.4 % Lymphocytes Percent Auto 22.6 20-40 % Monocytes Percent Auto 8.5 2-11 % Eosinophils Percent Auto 3.3 0-4 % Basophils Percent Auto 0.8 0-2 % NRBC Pct Auto 0.0 0.0-0.2 /100WBC Neutrophils Absolute Auto 6.2 2.0-8.3 x10*3/u L Imm Gran Abs Auto 0.04 0.00-0.03 X10*3/uL Lymphocytes Absolute Auto 2.2 1.2-4.9 X10*3/u L Monocytes Absolute Auto 0.8 0.1-1.2 X10*3/uL Eosinophils Absolute Auto 0.3 0.0-0.4 X10*3/u L Basophils Absolute Auto 0.1 0.0-0.2 X10*3/uL NRBC Abs Auto 0.000 0.0-0.012 X10*3/uL Liver Panel Reviewed date:03/09/2025 05:57:20 PM Interpretation: Performing Lab:[facility], [address] [place] [phone] Notes/Report: Bilirubin Total 0.4 0.0-1.0 mg/dL Bilirubin Direct 0.1 0.0-0.5 mg/dL Aspartate Amino Transferase 26 5-31 U/L Alanine Aminotransferase 14 0-31 U/L Total Protein 7.5 6.5-8.0 g/dL Albumin Level 4.6 3.5-5.0 g/dL Alkaline Phosphatase 81 39-117 U/L Basic Metabolic Panel (Not y et reviewed by provider) Interpretation: Performing Lab:[facility], [address] [place] [phone] Notes/Report: Sodium 142 135-145 mmol/L Potassium 3.9 3.3-5.1 mmol/L Chloride 109 96-108 mmol/L Carbon Dioxide 24 22-29 mmol/L Anion Gap 13 12-20 Blood Urea Nitrogen 20 9-16 mg/dL Creatinine 1.31 0.5-1.4 mg/dL Estimated Glomerular Filt Rate 39 Chronic Kidney Disease: Estimated GFR < 60 mL/min/1.73m2 Severe Kidney Disease: Estimated GFR < 15 mL/min/1.73m2 Glucose Random 148 60-115 mg/dL Calcium 10.9 8.4-10.2 mg/dL IRON PROFILE (Not yet review ed by provider) Interpretation: Performing Lab:[facility], [address] [place] [phone] Notes/Report: Iron 45 30-160 mcg/dL Total Iron Binding Capacity 407 228-428 mcg/d L Percent Iron Saturation 11 15-50 % Unsaturated Iron Binding 362 Reason For Referral No Information Medications Medication SIG (Take, Route, Frequency, Duration) Notes Start Date End Date Status Ondansetron 4 MG 1 tablet on the tong ue and allow to dissolve Orally Every 4 to 6 hours if needed for nausea; Duration: 30 days 03/09/2025 Active Gas Relief 40 MG/0.6ML as directed Orally Active Levothyroxine Sodium 75 MCG 1 tablet on an empty stomach in the morning Orally Once a day Active Metamucil - 1 packet with 8 ounc es of liquid as needed Orally 3-4 times a week Active metFORMIN HCl 500 MG 1 tablet with meals Orally Twice a day Active Cinacalcet HCl 30 MG 1 tablet with food or after a meal Orally Once a day; Duration: 30 day(s) Active Prebiotic Product Ac tive Omeprazole 40 MG 1 Orally Once a day every morning; Duration: 90 days Active Rosuvastatin Calcium 5 MG 1 tablet Orall y Once a day; Duration: 30 day(s) Active Magnesium 400 MG as directed Orally Active Biotin Maximum 85454 MCG as directed Orally Active Tylenol 8 Hour 650 MG 2 tablets as neede d Orally every 6 hrs Active Amlodipine & Diet Manage Prod 1 tablet Orally once a day Active Spironolactone 25 MG 1/2 tablet Orally O nce a day Active Immunizations Vaccine Route Administration Date Status Comme nts Influenza Unknown 02/11/2016 Administered Influenza Unknown 02/27/2022 Administered Influenza Unknown 03/05/2023 Administered Pneumococcal Unknown 04/12/2022 Administered Influenza Unknown 03/12/2024 Administered Problems Problem Type SNOMED Code ICD Code Onset Dates Problem Status W/U Status Risk Notes Problem Epigastric pain (34043312) Epigastric pain (R10.13) Active confirmed Problem Screening for malignant neoplasm of colon (872252453) Encounter for screening for malignant neoplasm of colon (Z12.11) Active confirmed Problem History of adenomatous polyp of colon (128949704) History of adenomatous polyp of colon (Z86.010) Active confirmed Problem Ulcer of esophagus (97820989) Ulcer of esophagus without bleeding (K22.10) Active confirmed Problem Diverticular disease of colon (700742388) Diverticulosis of large intestine without perforation or abscess without bleeding (K57.30) Active confirmed Problem Nausea (997779733) Nausea (R11.0) Active confir med Problem Early satiety (040762969) Early satiety (R68.81) Active confirmed Problem Iron deficiency anemia (20406905) Iron deficiency anemia (D50.9) Active confirmed Problem Gastroesophageal reflux disease without esophagitis (524657675) Gastroesophageal reflux disease without esophagitis (K21.9) Active confirmed Problem Hiatal hernia (21833967) Hiatal hernia (K44.9) Active confirmed Problem Chronic gastritis (8225095) Gastritis, chronic (K29.50) Active confirmed Problem Computed tomography result abnormal (407143512) Abnormal CT scan, colon (R93.3) Active confirmed Problem Erosive esophagitis (55859061) Erosive esophagitis (K22.10) Active confirmed Problem Irregular bowel habits (610613917) Irregular bowel habits (R19.8) Active confirmed Problem Incontinence of feces (80386389) Incontinence of feces, unspecified fecal incontinence type (R15.9) Active confirmed Problem Diaphragmatic hernia (93405940) Hernia, hiatal (K44.9) Active confirmed Problem Gastroesophageal reflux disease (disorder) (077886104) Chronic GERD (K21.9) Active confirmed Vital Signs Temperature 97.2 degrees Fahrenheit 03/09/2025 Blood pressure diastolic 01 mm Hg 03/09/2025 Height 62.50 in 03/09/2025 Blood pressure systolic 001 mm Hg 03/09/2025 Weight 210.2 lbs 03/09/2025 BMI 37.83 kg/m2 03/09/2025 Encounters Encounter Location Date Provider Diagnosis [facility] [address] [place] [phone] 03/09/2025 Cash Mercado Nausea R11.0 ; Early satiety R68.81 and Iron deficiency anemia D50.9 [facility] [address] [place] [phone] 03/15/2024 Cash Mercado [facility] [address] [place] [address] 03/26/2024 Cash Mercado Assessments Encounter Date Diagnosis (ICD Code) Assessment Notes Treatment Notes Treatment Clinical Notes Section Notes 03/09/2025 Nausea (ICD-10 - R11.0) I will send an antinausea medicine prescription to the pharmacy Call me after the pacemaker surgery to let me know how the GI symptoms are doing and we can decide if you will need an upper endoscopy or Upper GI series. Given Annetta's ongoing issues with nausea and her iron deficiency anemia I did advise her that we may need to consider a follow-up upper endoscopy at some point to reassess the findings from last year which included the esophagitis and gastritis. However, given the upcoming need for a new pacemaker I shall put any thoughts of an endoscopy on hold for the time being. I have advised her to continue the daily omeprazole and we will send over a prescription for her to have some Zofran available as needed. We did review that her symptoms can be somewhat related to her anemia, particularly if it is worsening and contributing to her symptoms of the nausea and fatigue. As such, I shall check a follow-up CBC, iron studies, and B12 and folate level. I have advised her to call me a week or so after her pacemaker to let me know how she is doing. If the new pacemaker has corrected a lot of her symptoms then that would obviously be good news. However, I did advise her that we may need to potentially address the iron deficiency anemia and this could require either a repeat upper endoscopy, or possibly just an upper GI series depending upon her clinical status and if we feel she is not up to undergoing an endoscopy with anesthesia. I would hold off on a colonoscopy given the negative exam just last year and no lower GI symptoms at the present time. I have not given Annetta a follow-up office visit as of yet, but again advised her and her to contact me a week or so after the pacemaker to let me know how she is doing and we could then make follow-up plans accordingly. Annetta and her were comfortable with this plan. Thank you again for allowing me to participate in Annetta's care. I shall continue to keep you advised of her progress. 03/09/2025 Early satiety (ICD-10 - R68.81) Given Annetta's ongoing issues with nausea and her iron deficiency anemia I did advise her that we may need to consider a follow-up upper endoscopy at some point to reassess the findings from last year which included the esophagitis and gastritis. However, given the upcoming need for a new pacemaker I shall put any thoughts of an endoscopy on hold for the time being. I have advised her to continue the daily omeprazole and we will send over a prescription for her to have some Zofran available as needed. We did review that her symptoms can be somewhat related to her anemia, particularly if it is worsening and contributing to her symptoms of the nausea and fatigue. As such, I shall check a follow-up CBC, iron studies, and B12 and folate level. I have advised her to call me a week or so after her pacemaker to let me know how she is doing. If the new pacemaker has corrected a lot of her symptoms then that would obviously be good news. However, I did advise her that we may need to potentially address the iron deficiency anemia and this could require either a repeat upper endoscopy, or possibly just an upper GI series depending upon her clinical status and if we feel she is not up to undergoing an endoscopy with anesthesia. I would hold off on a colonoscopy given the negative exam just last year and no lower GI symptoms at the present time. I have not given Annetta a follow-up office visit as of yet, but again advised her and her to contact me a week or so after the pacemaker to let me know how she is doing and we could then make follow-up plans accordingly. Annetta and her were comfortable with this plan. Thank you again for allowing me to participate in Annetta's care. I shall continue to keep you advised of her progress. 03/09/2025 Iron deficiency anemia (ICD-10 - D50.9) Given Annetta's ongoing issues with nausea and her iron deficiency anemia I did advise her that we may need to consider a follow-up upper endoscopy at some point to reassess the findings from last year which included the esophagitis and gastritis. However, given the upcoming need for a new pacemaker I shall put any thoughts of an endoscopy on hold for the time being. I have advised her to continue the daily omeprazole and we will send over a prescription for her to have some Zofran available as needed. We did review that her symptoms can be somewhat related to her anemia, particularly if it is worsening and contributing to her symptoms of the nausea and fatigue. As such, I shall check a follow-up CBC, iron studies, and B12 and folate level. I have advised her to call me a week or so after her pacemaker to let me know how she is doing. If the new pacemaker has corrected a lot of her symptoms then that would obviously be good news. However, I did advise her that we may need to potentially address the iron deficiency anemia and this could require either a repeat upper endoscopy, or possibly just an upper GI series depending upon her clinical status and if we feel she is not up to undergoing an endoscopy with anesthesia. I would hold off on a colonoscopy given the negative exam just last year and no lower GI symptoms at the present time. I have not given Annetta a follow-up office visit as of yet, but again advised her and her to contact me a week or so after the pacemaker to let me know how she is doing and we could then make follow-up plans accordingly. Annetta and her were comfortable with this plan. Thank you again for allowing me to participate in Annetta's care. I shall continue to keep you advised of her progress. Plan Of Treatment Pending Test Test Name Order Date CHEM 7 PROFILE 03/09/2025 LIVER PROFILE 03/09/2025 IRON + IBC (FE) 03/09/2025 CBC w DIFF 03/09/2025 Complete Blood Count Auto Diff Basic Metabolic Panel 03/09/2025 IRON PROFILE 03/09/2025 Ferritin 03/09/2025 Vitamin B12 and Folate 03/09/2025 Transglutaminase Ab IgG 03/09/2025 Transglutaminase IgA 03/09/2025 Gliadin Ab Panel 03/09/2025 Endomysial IgA rflx Titer 03/09/2025 Future Test Test Name Order Date COLONOSCOPY 02/14/2011 COLONOSCOPY 10/31/2016 UPPER GI ENDOSCOPY 09/18/2023 COLONOSCOPY 09/18/2023 Insurance Providers Payer Name Payer Address Payer Phone Subscriber Number Group Number Insured Name Patient Relationship to Insured Coverage Start Date Coverage End Date [facility] [address] [facility] [place] [phone] [id number] TAHIRANNETTA Alex Self - patient is the insured Medical (General) History Medical History History ICD Code NIDDM Hyperlipidemia Hypertension Pacemaker-sees Dr. Patel Arthritis Denies [place],CVA,Lung disease,renal disease Urinary incontinence-mild Hypothyroidism Tubular adenomas removed in 1999- - she had negative colonoscopies in 2005 and 2010 other than some diverticulosis and small internal hemorrhoids; negative colonoscopy in 2016 GERD- upper endoscopy in revealed a small to moderate-sized [...] is being followed by her other physicians. Iron deficiency anemia as of December 2024 Surgical History Surgery Date(Month/Year) New pacemaker scheduled for 03/2025 3rd pacemaker replacement 12/25/2023 [facility] Carpal tunnel release L & R Left knee replacement 03/2011 AMAURY Pacemaker- replaced in 2016 Hospitalization History Reason Date(Month/Year)
--- OUTSIDE RECORDS SUMMARY | 2025-03-09 19:16 | XMS_ITS | Encounter Summary ---
Author Organization [facility] Address [address] [place] [address] Phone Care Team Providers Care Chiropractic Physician Name Role Phone Damien Mcgrath MD Primary Care Provider Archie Flores MD Primary Care Provider [phone] Carmita Dietz NP Primary Care Provid er Encounter Details Date Type Department Care Team (Late st Contact Info) Description 09/30/2018 Ancillary Orders Non-Invasive Cardiology [address] [place] [address] Kash Sarabia MD [address] [place] [address] [email or web address] Social History Tobacco Use Types Packs/Day Years Used Date Smoking Tobacco: Never Assessed Comments Unknown Sex and Gender Information Value Date Recorded Sex Assigned at Not on file Legal Sex Female 10:09 PM EDT Gender Identity Not on file Sexual Orientation Not on file documented as of this encounter Plan of Treatment Not on file documented as of this encounter Visit Diagnoses Diagnosis Heart block Unspecified conduction disorder documented in this encounter Care Teams Chiropractic Physician Relationship Specialty Start Date End Date Damien Mcgrath MD PCP - General 02/28/17 07/07/19 Archie Finch MD [address] [place] [address] [place] [id number] PCP - General Internal Medicine 07/08/19 08/11/23 Carmita Dietz NP [address] [place] [address] PCP - General Nurse Practitioner 08/12/23 documented as of this encounter Additional Source Comments The information contained in this document represents components of the legal health record. It is not the complete legal health record.[facility]
--- OUTSIDE RECORDS SUMMARY | 2025-03-09 19:16 | XMS_ITS | Encounter Summary ---
Author Organization [facility] Address [address] [facility] [address] [place] [address] Phone Care Team Providers Care Filling Winder Name Role Phone Damien Mcgrath MD Primary Care Provider Unava Archie Lui MD Primary Care Provider [phone] Carmita Dietz NP Primary Care Provid er Encounter Details Date Type Department Care Team (Late st Contact Info) Description 09/30/2018 Ancillary [facility] [address] [place] [address] Kash Sarabia MD [address] [place] [address] [place] [address] [email or web address] Social History Tobacco Use Types Packs/Day Years [...] on filedocumented in this encounter Care Teams Filling Winder Relationship Specialty Start Date End Date Damien Mcgrath MD PCP - General 02/28/17 07/07/19 Archie Finch MD [address] [facility] [address] [place] [address] PCP - General Internal Medicine 07/08/19 08/11/23 Carmita Dietz NP [address] [place] [address] PCP - General Nurse Practitioner 08/12/23 documented as of this encounter Additional Source Comments The information contained in this document represents components of the legal health record. It is not the complete legal health record.[facility]
--- OUTSIDE RECORDS SUMMARY | 2025-03-09 19:16 | XMS_ITS | Clinical Summary ---
Author Organization [facility] Address [address] [address] Phone Care Team Providers Care Tuber Operator Name Role Phone Carmita Dietz NP Primary Care Provid er Allergies Active Allergy Reactions Criticality Noted Date Comments Corbin Inhibitors 08/13/2023 Medications levothyroxine (SYNTHROID, LEVOTHROID) 75 MCG tablet Take 1 tablet by mouth every morning. on an empty stomach Active metFORMIN (GLUCOPHAGE) 500 MG tablet Take 1 tablet by mouth daily. Active aspirin 81 MG EC tablet Take 81 mg by mouth daily. Active acetaminophen (TYLENOL) 500 mg capsule Take by mouth every 6 (six) hours as needed for mild pain. Active nystatin (NYSTOP) powder Apply 1 Application topically 2 (two) times a day. 01/05/20 20 Active spironolactone (ALDACTONE) 25 MG tablet Take 12.5 mg by mouth daily. 01/21/20 20 Active traMADoL (ULTRAM) 50 mg tablet Take 1 tablet (50 mg total) by mouth every 6 (six) hours as needed for pain (specific location in comments). 28 tablet 02/16/20 20 Active predniSONE (DELTASONE) 20 MG tablet 2 tablets X 4 days , 1 tablet X 4 days then D/C 12 tablet 11/09/19 21 Active pravastatin (PRAVACHOL) 40 MG tabletIndications: Hyperlipidemia, unspecified hyperlipidemia type TAKE 1 TABLET BY MOUTH EVERY DAY 90 tablet 3 08/19/19 22 Active cholecalciferol (VITAMIN D3) 25 MCG (1,000 unit) tabletIndications: takes every other day Take 1,000 Units by mouth daily. Indications: takes every other day Active magnesium oxide 400 mg magnesium Tab Take 800 mg by mouth daily. 08/13/19 Active amLODIPine (NORVASC) 10 MG tablet Take 10 mg by mouth daily. 08/13/19 Active cyanocobalamin, vitamin B-12, 1000 MCG tablet Take 1,000 mcg by mouth daily. 08/13/19 Active biotin 5 mg Tab Take 5 mg by mouth daily. 08/13/19 Active rosuvastatin (CRESTOR) 5 MG tablet Take 5 mg by mouth daily. 08/13/19 Active cinacalcet (SENSIPAR) 30 mg tablet Take 30 mg by mouth daily. 08/13/19 Active sucralfate (CARAFATE) 1 gram tablet Take 1 g by mouth 2 (two) times a day. bid on an empty stomach 08/19/19 Active psyllium (METAMUCIL) 0.4 gram capsule 1 packet with 8 ounces of liquid as needed Orally 3-4 times a week Active omeprazole (PRILOSEC) 40 MG capsule Take 40 mg by mouth daily. Active FREESTYLE LITE Strp strips TEST SUGARS DAILY DIRECTED 10/03/19 Active EPINEPHrine 0.3 mg/0.3 mL auto-injector USE DIRECTED FOR ANAPHYLAXIS , CALL 911 AFTER USE 11/25/19 Active Active Problems Problem Noted Date Diagnosed Date Severe obesity (BMI 35.0-39.9) with comorbidity 12/09/2024 Gastro-esophageal reflux disease without esophag itis 12/13/2022 History of adenomatous polyp of colon 12/13/2022 Incontinence of feces 12/13/2022 Cardiac pacemaker in situ 01/09/2018 Overview (01/09/2018): Medtronic Hyperlipidemia 01/09/2018 Assessment & Plan (02/02/2021 9:21 AM EDT): Continue pravastatin Hypertension 01/09/2018 Assessment & Plan (02/02/2021 9:20 AM EDT): Blood pressure controlled Continue amlodipine/benazepril Left bundle branch block 01/09/2018 Type 2 diabetes mellitus without complications 0 01/09/2018 Resolved Problems Problem Noted Date Diagnosed Date Resolved Date Complete heart block 01/09/2018 021 Encounters Date Type Department Care Team Description 12/09/2024 10:40 AM EDT Office Visit [facility] [address] [address] Christine Lemos, CLOUD SYSTEMS ARCHITECT De Quervain's tenosynovitis, right (Primary Dx) from Last 3 Months Immunizations No known immunizations Social History Tobacco Use Types Packs/Day Years Used Date Smoking Tobacco: Never Smokeless Tobacco: Never Tobacco Cessation:Counseling Given: Not Answered Alcohol Use Standard Drinks/Week Comments Not Asked [...] Sign Reading Time Taken Comments Blood Pressure 144/90 12/09/2024 10:46 AM EDT Pulse 80 12/09/2024 10:46 AM EDT Temperature 36.3 C (97.3 F) 12/09/2024 10:46 AM EDT Respiratory Rate 18 12/09/2024 10:46 AM EDT Oxygen Saturation 97% 12/09/2024 10:46 AM EDT Inhaled Oxygen Concentration - - Weight 87.1 kg (192 lb) 12/23/2023 12:15 PM EDT Height 157.5 cm (5' 2 ) 12/23/2023 12:15 PM EDT Body Mass Index 35.12 12/23/2023 12:15 PM EDT Plan of Treatment Health Maintenance Due Date Last Done Comments Adult Td,Tdap Booster 1945 DEPRESSION SCREENING 1955 PNEUMOCOCCAL VACCINES (50+ years) (1 of 2 - PCV) 12/07/1962 ZOSTER VACCINES (1 of 2) 12/07/1993 OSTEOPOROSIS SCREENING INITIAL (ONE-TIME) 12/07/2008 DIABETIC EYE EXAM 01/09/2018 RSV VACCINE (1 - 1-dose 75+ series) 12/07/2018 TSH LEVEL 02/02/2022 02/02/2021, 01/11, 06/12/2019, Additional history exists URINE MICROALBUMIN/CREATININE RATIO 02/02/2022 02/02/2021, 09/06/2020, 01/21/2020, Additional history exists INFLUENZA VACCINE (#1) 2024 COVID-19 VACCINE ( - season) 2025 HEMOGLOBIN A1C 05/06/2025 11/04/2024, 01/12, 09/02/2020, Additional history exists BLOOD PRESSURE 06/11/2025 12/09/2024 CREATININE LEVEL 11/04/2025 11/04/2024, , 07/09/2024, Additional history exists POTASSIUM LEVEL 11/04/2025 11/04/2024, 06/14, 02/02/2021, Additional history exists HEPATITIS A VACCINES Aged Out No long er eligible based on patient's age to complete this topic HIB VACCINES Aged Out No longer eligi ble based on patient's age to complete this topic MENINGOCOCCAL VACCINES (ACWY) Aged Out No longer eligible based on patient's age to complete this topic MENINGOCOCCAL VACCINES (B) Aged Out N o longer eligible based on patient's age to complete this topic Medical Devices Implanted Type Area Rapid Transit Operator Device Identifier Shelf Expiration Date Model / Serial / Lot Medtronic Pacemaker Device Pacemaker Iris Xt Mri - [id number] Implanted:Qty : 1 on 12/25/2023 by Grover Infante MD at [facility] Pacemaker Left: Chest [employer]TR[employer] [facility] [id number] 05/26/2025 [id number] / [id number] / Procedures Procedure Name Priority Date/Time Associated Diagnosis Comments HEMOGLOBIN A1C Routine 11/04/2024 9:51 AM EDT Type 2 diabetes mellitus without complication, unspecified whether group home insulin use RENAL PANEL Routine 11/04/2024 9:51 AM EDT Type 2 diabetes mellitus without complication, unspecified whether group home insulin use MICROALBUMIN/CREATI NINE RATIO, RANDOM URINE Routine 02/02/2021 9:32 AM EDT Type 2 diabetes mellitus without complication, unspecified whether group home insulin use TSH Routine 02/02/2021 9:29 AM EDT Type 2 diabetes mellitus without complication, unspecified whether ferry terminal supervisor insulin use from Last 3 Months or Most Recently Relevant to Health Maintenance Results * (ABNORMAL) Renal panel (11/04/2024 9:51 AM EDT) SODIUM 135 133 - 146 mmol/L [facility] POTASSIUM 4.4 3.3 - 5.1 mmol/L [facility] CHLORIDE 102 96 - 108 mmol/L [facility] CO2 23 21 - 35 mmol/L [facility] GLUCOSE 136(H) 70 - 99 mg/dL [facility] BUN 19 6 - 19 mg/dL [facility] CREATININE 1.10 0.5 - 1.5 mg/dL [facility] CALCIUM 11.0(H) 8.4 - 10.3 mg/dL [facility] PHOSPHORUS 3.0 2.7 - 4.5 mg/dL [facility] ALBUMIN 4.1 3.9 - 4.8 g/dL [facility] EGFR 51(L) >59 mL/min/1.7 3m2 [facility] Comment:Estimated glomerular filtration rate calculated using the CKD-EPI refit equation. ANION GAP 14 10 - 20 mmol/L [facility] Blood 11/04/2024 9:51 AM EDT 11/04/2024 9:55 AM EDT Jamaal Ham MD LAB BLOOD ORDERABLES Final R esult Performing Organization Address City/[facility]/ZIP Co de Phone Number [address] [address] * (ABNORMAL) Hemoglobin A1c (11/04/2024 9:51 AM EDT) HEMOGLOBIN A1C 6.3(H) 4.3 - 5.8 % [facility] Blood 11/04/2024 9:5 1 AM EDT 11/04/2024 9:55 AM EDT Jamaal Ham MD LAB BLOOD ORDERABLES Final R esult Performing Organization Address [facility] Co de Phone Number [address] [address] * Microalbumin/creatinine ratio, random urine (02/02/2021 9:32 AM EDT) URINE MICROALBUMIN <1.2 0 - 2.3 mg/dL [facility] URINE CREATININE 97 mg/dL [facility] MICROALB/CRE RATIO NOT CALCULATED 0 - 20 mg/g Cre [facility] Comment:due to Microalbumin <1.2 Urine (Urine) 02/02/2021 9:3 2 AM EDT 02/02/2021 5:49 PM EDT Jamaal Ham MD URINE ORDERABLES Final Resul t Performing Organization Address City/[facility] Co de Phone Number [address] [place] [address] * TSH (02/02/2021 9:29 AM EDT) TSH 0.91 0.27 - 4.20 uIU/mL [facility] Blood 02/02/2021 9:29 AM EDT 02/02/2021 9:33 AM EDT us Jamaal Ham MD LAB BLOOD ORDERABLES Final R esult [address] [address] from Last 3 Months or Most Recently Relevant to Health Maintenance Insurance [employer] [employer] PPO REPLACEMENT [employer] [place] [employer] PPO REPLACEMENT [employer] [place] [employer] PPO REPLACEMENT [employer] [place] [employer] PPO REPLACEMENT [employer] [place] [place] [id number] [employer] [place] [id number] Advance Directives For more information, please contact: [phone] (9AM - 5PM [facility], Saturday-Saturday) * Full Code (Latest Code Status on File) Date Activated Date Inactivated Comments 12/25/2023 11:58 AM Question Answer Comments Code Status Confirmed With: Patient Care Teams Tuber Operator Relationship Specialty Start Date End Date Carmita Dietz NP [address] [place] [address] PCP - General Nurse Practitioner 08/12/23 Additional Source Comments The information contained in this document represents components of the legal health record. It is not the complete legal health record.[facility]
--- OUTSIDE RECORDS SUMMARY | 2025-03-09 19:16 | XMS_ITS | Encounter Summary ---
Author Organization [facility] Address [address] [facility] [address] [place] [address] Phone Care Team Providers Care Roofer Assistant Name Role Phone Carmita Dietz NP Primary Care Provid er Encounter Details Date Type Department Care Team (Late st Contact Info) Description 12/25/2023 Procedure Pass [facility] [address] [place] [address] Social History Tobacco Use Types Packs/Day Years [...] on filedocumented in this encounter Care Teams Roofer Assistant Relationship Specialty Start Date End Date Carmita Dietz NP [address] [place] [address] PCP - General Nurse Practitioner 08/12/23 documented as of this encounter Additional Source Comments The information contained in this document represents components of the legal health record. It is not the complete legal health record.[facility]
--- OUTSIDE RECORDS SUMMARY | 2025-03-09 19:16 | XMS_ITS | Encounter Summary ---
Author Organization [facility] Address [address] [facility] [address] [place] [address] Phone Care Team Providers Care House Manager Name Role Phone Carmita Dietz MICROBIOLOGY LAB ASSISTANT-C Primary Care Provider + Reason for Visit * Reason Comments Med Refill Encounter Details Date Type Department Care Team (Late st Contact Info) Description 02/27/2023 Refill [facility] [address] [place] [phone] Arsen Villegas MD Social History Tobacco Use [...] on filedocumented in this encounter Care Teams House Manager Relationship Specialty Start Date End Date Carmita Dietz NP-C [address], [address] [place] [address] PCP - General Nurse Practitioner 07/18/22 documented as of this encounter
--- OUTSIDE RECORDS SUMMARY | 2025-03-09 19:16 | XMS_ITS | Clinical Summary ---
Author Organization [facility] Address [address] [place] [address], [place] [address] Care Team Providers Care Professor Of Mathematics Name Role Phone Carmita Dietz PSYCHOLOGIST SOCIAL-C Primary Care Provider + Allergies No known [...] 1 (one) time each day Active Biotin 87891 MCG tablet dispersible Take by mouth Active [...] Visual Foot Exam 07/18/2022 Influenza Vaccine (#1) 2025 2, 02/11/2016 Hepatitis B Vaccine Aged Out No longe r eligible based on patient's age to complete this [place] [address] Health [facility] Health Care Teams Professor Of Mathematics Relationship Specialty Start Date End Date Carmita Dietz NP-C [address], [address] [place] [address] PCP - General Nurse Practitioner 07/18/22
[2025-03-10 20:33] LABS: Transglutaminase Ab IgG <1.0 U/mL
== END 2025-03-09 14:49 | disposition home or self-care (01) ==
LOC: HO.LAB 14:48
PROVIDERS: PCP Nurse Practitioner Primary Care; Visit Provider Internal Medicine
DX: Z01.84 Encounter for antibody response examination (principal); D50.9 Iron deficiency anemia, unspecified; R11.0 Nausea; R68.81 Early satiety
CPT/HCPCS: 36415; 80048; 80076; 82607; 82728; 82746; 83540; 85025; 86231; 86258; 86364

== ENCOUNTER 2025-03-22 14:58 | Outpatient (AMB) | payer MEDICARE, SELFPAY ==
--- OUTSIDE RECORDS SUMMARY | 2020-02-16 10:20 | XMS_ITS | Encounter Summary ---
Author Organization [facility] Address [address] [facility] [address] [place] [address] Phone Care Team Providers Care Floor Person Name Role Phone Archie Finch MD Primary Care Provider +1 [phone] Encounter Details Date Type Department Care Team (Late st Contact Info) Description 02/16/2020 11:20 AM EDT Hospital Encounter [facility] [address] [place] [address] Christine Lemos CNP 12 [place], [place] [phone] [email or web address] Social History Tobacco Use Types Packs/Day Years Used Date Smoking Tobacco: Never Smokeless Tobacco: Never Alcohol Use Standard Drinks/Week Comments Not Asked 0 (1 standard drink = 0.6 oz pur e alcohol) occasionaly Home Health Assessment: Transportation Answer Date Recorded Lack of Transportation (Medical) No 09/04/2023 Lack of Transportation (Non-Medical) No 09/04/2023 Patient Unable or Declines to Respond No 09/04/2023 Education Answer Date Recorded Are you interested in more education? Not on evelina e 09/07/2022 Are you concerned about learning? Not on file 09/07/2022 No 09/07/2022 No 09/07/2022 Digital Access Answer Date Recorded No 10/08/2022 No 10/08/2022 Reliable internet access at home? Not on file 10/08/2022 Device with a working camera? Not on file Intimate Partner Violence Answer Date R ecorded Are you denied basic needs s uch as food, clothing, or medical care? No 12/25/2023 In the past 12 months have y ou been in a relationship with a person who hurts, threatens, or tries to control you? No 12/25/2023 Are you denied basic needs s uch as food, clothing, or medical care? No 12/25/2023 In the past 12 months have y ou been in a relationship with a person who hurts, threatens, or tries to control you? No 12/25/2023 Comments Unknown Sex and Gender Information Value Date Recorded Sex Assigned at Not on file Legal Sex Female 10:09 PM EDT Gender Identity Not on file Sexual Orientation Not on file documented as of this encounter Plan of Treatment Not on file documented as of this encounter Procedures Procedure Name Priority Date/Time Associated Diagnosis Comments XR CALCANEUS 2 OR MORE VIEWS (RIGHT) Urgent/patient waiting 02/16/2020 11:29 AM EDT Inflammatory heel pain, right documented in this encounter Results * XR Calcaneus 2 or More Views (Right) (02/16/2020 11:29 AM EDT) Anatomical Region Laterality Modality Ankle Right, Foot [facility] 02/16/2020 11:3 6 AM EDT Impressions 02/16/2020 11:38 AM EDT Pronounced Achilles enthesopathy and distal tendon calcification with overlying soft tissue swelling but without acute bony pathology apparent. POS - [id number] Narrative 02/16/2020 11:38 AM EDT COMPARISON: None FINDINGS: Lateral, oblique, and axial views were obtained. No acute fracture or subluxation detected. There is extensive calcification of the distal Achilles extending to the level of the posterior calcaneus were hypertrophic bony change is present at the insertion point, with overlying soft tissue swelling noted. There is additional plantar calcaneal spurring and mild calcification of the adjacent plantar fascia. No gross joint effusion. Procedure Note Archie Gtz MD - 02/16/2020 COMPARISON: None FINDINGS: Lateral, oblique, and axial views were obtained. No acute fracture orsubluxation detected. There is extensive calcification of the distalAchilles extending to the level of the posterior calcaneus werehypertrophic bony change is present at the insertion point, with overlyingsoft tissue swelling noted. There is additional plantar calcaneal spurringand mild calcification of the adjacent plantar fascia. No gross jointeffusion. IMPRESSION: Pronounced Achilles enthesopathy and distal tendon calcification withoverlying soft tissue swelling but without acute bony pathologyapparent. POS - [id number] Christine Lemos CORE MEASURES ABSTRACTOR IMG XR LOWER EXTREMITY Mae l Result documented in this encounter Visit Diagnoses Not on filedocumented in this encounter Care Teams Floor Person Relationship Specialty Start Date End Date Archie Finch MD [address] [place] [address] PCP - General Internal Medicine 07/08/19 08/11/23 documented as of this encounter Additional Source Comments The information contained in this document represents components of the legal health record. It is not the complete legal health record.[facility]
--- OUTSIDE RECORDS SUMMARY | 2020-04-18 11:37 | XMS_ITS | Encounter Summary ---
Author Organization [facility] Address [address] [facility] [address] [place] [address] Phone Care Team Providers Care Lead Coater Name Role Phone Archie Finch MD Primary Care Provider +1 -[phone] Encounter Details Date Type Department Care Team (Late st Contact Info) Description 04/18/2020 11:37 AM EST Hospital Encounter [facility] [address] [place] [address] Christine Lemos CNP 12 [place], [place] [phone] [email or web address] Social History Tobacco Use Types Packs/Day Years [...] fracture bone scintigraphy could be considered. POS [id number] Narrative 04/18/2020 11:55 AM EST COMPARISON: None [...] fracture bone scintigraphy could be considered. POS [id number] Christine Lemos COLLAR TRIMMER IMG XR CHEST Final Resul t documented in this encounter Visit Diagnoses Not on filedocumented in this encounter Care Teams Lead Coater Relationship Specialty Start Date End Date Archie Finch MD 300 [facility] [address] [place] [address] PCP - General Internal Medicine 07/08/19 08/11/23 documented as of this encounter Additional Source Comments The information contained in this document represents components of the legal health record. It is not the complete legal health record.[facility]
--- OUTSIDE RECORDS SUMMARY | 2020-11-14 09:15 | XMS_ITS | Encounter Summary ---
Author Organization [facility] Address [address] [facility] [address] [place] [address] Phone Care Team Providers Care Inside Sales Specialist Name Role Phone Archie Finch MD Primary Care Provider [phone] [phone] Encounter Details Date Type Department Care Team (Late st Contact Info) Description 11/14/2020 10:15 AM EDT Hospital Encounter [facility] [address] [place] [address] Shakila Duff FNP 12 [place], [place] [phone] [email or web address] Social History Tobacco Use Types Packs/Day [...] IMPRESSION: No fracture or dislocation. Shakila Duff SLIP COVER CUTTER IMG XR LOWER EXTREMITY Mae l Result documented in this encounter Visit Diagnoses Not on filedocumented in this encounter Care Teams Inside Sales Specialist Relationship Specialty Start Date End Date Archie Finch MD [address] [place] [address] PCP - General Internal Medicine 07/08/19 08/11/23 documented as of this encounter Additional Source Comments The information contained in this document represents components of the legal health record. It is not the complete legal health record.[facility]
--- OUTSIDE RECORDS SUMMARY | 2022-05-23 11:49 | XMS_ITS | Encounter Summary ---
Author Organization [facility] Address [address] [facility] [address] [place] [address] Phone Care Team Providers Care Vacuum Metalizer Operator Name Role Phone Archie Finch MD Primary Care Provider [phone] [phone] Encounter Details Date Type Department Care Team (Late st Contact Info) Description 05/23/2022 11:49 AM EST Hospital Encounter [facility] [address] [place] [address] Christine Lemos CNP 12 [place], [place] [phone] [email or web address] Social History Tobacco Use Types Packs/Day Years [...] Name Priority Date/Time Associated Diagnosis Comments XR FOOT 3 OR MORE VIEWS (RIGHT) Urgent/patient waiting 05/23/2022 12:00 PM EST Right foot pain documented in this encounter Results * XR FOOT 3 OR MORE VIEWS (RIGHT) (05/23/2022 12:00 PM EST) Anatomical Region Laterality Modality Foot Right Computed Radiogr aphy 05/23/2022 12:0 5 PM EST Impressions 05/23/2022 12:05 PM EST No fracture or dislocation. Narrative 05/23/2022 12:05 PM EST XR FOOT 3 OR MORE VIEWS (RIGHT) COMPARISON: None. FINDINGS: Diffuse osteopenia. No fracture. Normal alignment. Normal joint spaces. Achilles enthesopathy. Small calcaneal spur. No soft tissue swelling. Procedure Note Sari Saldana MD - 05/23/2022 XR FOOT 3 OR MORE VIEWS (RIGHT) COMPARISON: None. FINDINGS: Diffuse osteopenia. No fracture. Normal alignment. Normal joint spaces.Achilles enthesopathy. Small calcaneal spur. No soft tissue swelling. IMPRESSION: No fracture or dislocation. Christine Coelho Aminta TIRE VULCANIZER IMG XR LOWER EXTREMITY Mae l Result documented in this encounter Visit Diagnoses Not on filedocumented in this encounter Care Teams Vacuum Metalizer Operator Relationship Specialty Start Date End Date Archie Finch MD [address] [place] [address] PCP - General Internal Medicine 07/08/19 08/11/23 documented as of this encounter Additional Source Comments The information contained in this document represents components of the legal health record. It is not the complete legal health record.[facility]
--- OUTSIDE RECORDS SUMMARY | 2023-09-01 09:37 | XMS_ITS | Encounter Summary ---
Author Organization [facility] Address [address] [place] [phone] Phone Care Team Providers Care Barbed Wire Machine Operator Name Role Phone Carmita Dietz NP Primary Care Provid er Encounter Details Date Type Department Care Team (Late st Contact Info) Description 09/01/2023 10:37 AM EDT Hospital Encounter [facility] [address] [place] [phone] Shakila Duff FNP [address] [place] [address] [email or web address] Social History Tobacco Use Types Packs/Day Years [...] Comments XR FOOT 3 OR MORE VIEWS (LEFT) Urgent/patient waiting 09/01/2023 10:48 AM EDT Pain in left ankle and joints of left foot documented in this encounter Results * XR FOOT 3 OR MORE VIEWS (LEFT) (09/01/2023 10:48 AM EDT) Anatomical Region Laterality Modality Foot Left Computed Radiogr aphy 09/01/2023 11:4 8 AM EDT Impressions 09/01/2023 11:50 AM EDT No fracture or dislocation. Diffuse soft tissue swelling of the ankle. Narrative 09/01/2023 11:50 AM EDT XR FOOT 3 OR MORE VIEWS (LEFT), XR ANKLE 3 OR MORE VIEWS (LEFT) Referring clinician's provided indication for this examination in Epic: Pain; pain for 3 days. hx gout. No redness, swelling, COMPARISON: None. FINDINGS: No fracture. Normal alignment. Normal joint spaces. No definite bony erosion. Diffuse soft tissue swelling of the ankle. Achilles tendon and plantar enthesopathy. Procedure Note Chelsey Jordan MD - 09/01/2023 XR FOOT 3 OR MORE VIEWS (LEFT), XR ANKLE 3 OR MORE VIEWS (LEFT) Referring clinician's provided indication for this examination in Epic:Pain; pain for 3 days. hx gout. No redness, swelling, COMPARISON: None. FINDINGS: No fracture. Normal alignment. Normal joint spaces. No definite bonyerosion. Diffuse soft tissue swelling of the ankle. Achilles tendon andplantar enthesopathy. IMPRESSION: No fracture or dislocation. Diffuse soft tissue swelling of the ankle. Shakila Duff CREDIT CHECKER IMG XR LOWER EXTREMITY Mae l Result documented in this encounter Visit Diagnoses Not on filedocumented in this encounter Care Teams Barbed Wire Machine Operator Relationship Specialty Start Date End Date Carmita Dietz NP [address] [place] [id number] PCP - General Nurse Practitioner 08/12/23 documented as of this encounter Additional Source Comments The information contained in this document represents components of the legal health record. It is not the complete legal health record.[facility]
--- OUTSIDE RECORDS SUMMARY | 2023-09-01 09:37 | XMS_ITS | Encounter Summary ---
Author Organization [facility] Address [address] [place] [address] Phone Care Team Providers Care Classified Advertising Supervisor Name Role Phone Carmita Dietz NP Primary Care Provid er Encounter Details Date Type Department Care Team (Late st Contact Info) Description 09/01/2023 10:37 AM EDT Hospital Encounter [facility] [address] [place] [phone] Shakila Duff FNP [address] [place] [address] [email or web address] Social History Tobacco Use Types Packs/Day [...] tissue swelling of the ankle. Shakila Duff DRAMATIC READER IMG XR LOWER EXTREMITY Mae l Result documented in this encounter Visit Diagnoses Not on filedocumented in this encounter Care Teams Classified Advertising Supervisor Relationship Specialty Start Date End Date Carmita Dietz NP [address] [place] [phone] PCP - General Nurse Practitioner 08/12/23 documented as of this encounter Additional Source Comments The information contained in this document represents components of the legal health record. It is not the complete legal health record.[facility]
--- OUTSIDE RECORDS SUMMARY | 2025-03-22 17:12 | XMS_ITS | Clinical Summary ---
Author Organization [facility] Address [address] [place] [address], [place] [address] Care Team Providers Care Core Piler Name Role Phone Carmita Dietz SENIOR QUALITY ASSURANCE SPECIALIST-C Primary Care Provider + Allergies No known [...] 1 (one) time each day Active Biotin 32981 MCG tablet dispersible Take by mouth Active [...] patient's age to complete this topic [place] [address] Health [facility] Health Care Teams Core Piler Relationship Specialty Start Date End Date Carmita Dietz NP-C [address], [address] [place] [address] PCP - General Nurse Practitioner 07/18/22
--- OUTSIDE RECORDS SUMMARY | 2025-03-22 17:12 | XMS_ITS | Data Portability ---
Author Organization [place] [facility], All[facility] Address [address] [address] Care Team Providers Care Pediatric Cns Name Role Phone JACOBO ABAD Primary Care [...] mupirocin 2 % topical ointment 2024 025 [facility][id number], [address] [place], [address], 5 11:51:39 Patient TargetsNo targets recorded. Patient InstructionsNo instructions recorded. Reason for Referral None Reported. Problems Name Problem SNOMED Code Status Onset Date Resolution Date Notes Provider Name and Address Organization Details Recorded Time Migraine 73182071 Active 2017 Other migraine , not intracta ble, without status migraino kervin; Note: Date Diagnose d: 8 10:47 AM (G43.809 ) Not Available [facility] 4 03:07:58 Follow-u p visit Active 2017 Encounte r for follow-u p examinat ion after complete d treatmen t for conditio ns other than malignan t neoplasm ; Note: Date Diagnose d: 04/21/20 18 2:55 PM (Z09) Not Available [facility] 4 03:08:00 Chronic sphenoid al sinusiti s 44370022 Completed 201712/13/2023 Chronic sphenoid al sinusiti s; Note: Date Diagnose d: 04/28/20 18 8:26 PM (J32.3) Chroni c sphenoid al sinusiti s; Note: Date Diagnose d: 8 11:01 AM (J32.3) ; Start Date : 02/11/20 18 Not Available [facility] 4 03:07:58 Headache 85436029 Active 2019 Facial pain NOS; Note: Date Diagnose d: 02/25/20 20 1:22 PM (R51) Facial pain NOS; Note: Date Diagnose d: 8 10:47 AM (R51) ; Start Date : 02/11/20 18 Not Available [facility] 4 03:07:59 Ulcerati ve rhinitis 51204248 Active 2019 Nasal mucositi s (ulcerat adriana); Note: Date Diagnose d: 0 1:36 PM (J34.81) Not Available [facility] 4 03:08:00 Angioede ma 81122038 Active 2023 Angioneu rotic edema, initial encounte r; Note: Date Diagnose d: 4 9:06 AM (T78.3XX A) Not Available [facility] 4 03:08:00 Gastroes ophageal reflux disease 125670897 Active 2024 SANDIE WILLIAM MD [address] [facility],[address] [facility], [facility] [place], [address] , [facility] 5 08:18:24 Obstruct adriana sleep apnea syndrome 62920182 Active 2024 SANDIE WILLIAM MD [address] [facility] [address], [facility] [place], [address] , [facility] 5 08:18:33 Problem Notes None recorded. Procedures Surgical History Date Name Laterality Status Provider Name and Address Organization Details Recorded Time 06/12/19 Fiberoptic Laryngoscopy (Comprehensive) completed SANDIE WILLIAM MD 100 [facility],[place] [address], [place], [address], [facility] 06/13/2024 08:17:40 Imaging Results None recorded. Procedure [...] layed release 06/12 completed Medicati on ID: [id number] D uration Value: 90 Brand Name: pantopra zole Sen d Method: E-Prescr ibed Sub s Allowed: subs OK Speci al Instruct ion: TAKE 1 TABLET BY ORAL ROUTE DAILY Me dication GenericN radha: pantopra zole Not Available Not Available Not Available pravastat in 20 mg tablet 2017 active Medicati on ID: [id number] D uration Value: 90 Brand Name: pravasta [...] by mouth 06/12 completed Medicati on ID: [id number] D uration Value: 7 Prescri bed By Name: Sandie weiss MD Brand Name: cefuroxi me axetil S end Method: E-Prescr ibed Sub s Allowed: subs OK Medic ationGen ericName : cefuroxi me axetil Not Available Not Available Not Available amoxicill in 875 mg-potass ium clavulana te 125 mg tablet 05/09 completed Medicati on ID: [id number] D uration Value: 10 Reason: () Brand [...] Available Advil 04/21 completed Medicati on ID: [id number] R sergio: () Brand Name: advil Se nd Method: E-Prescr ibed Sub s Allowed: subs OK Medic ationGen ericName : advil Not Available Not Available Not Available Tylenol 06/12 completed Medicati on ID: [id number] B rand Name: tylenol Send Method: E-Prescr ibed Sub s Allowed: subs OK Medic ationGen ericName : tylenol Not Available Not Available Not Available amlodipin e 10 mg-benaze pril 40 mg capsule 06/12 completed Medicati on ID: [id number] D uration Value: 90 Brand Name: amlodipi [...] Updated DateTime 06/12/2024 157.48 cm 36.6 kg/m2 75414.47 g Georgette Lynn [place] - [facility] 06/12/2024 11:32:13 Social History None recorded. Functional [...] ICD10 Code Diagnosis IMO Codes Diagnosis Note 33991 SANDIE WILLIAM MD [facility] [address] [address] 06/12/2024 11:19:33 06/12/2024 11:55:40 Ulcerative rhinitis 94744758 J34.81 Gastroesop hageal reflux disease 983911250 K21.00 Obstructiv e sleep apnea syndrome 59799967 G47.33 Health Concerns Section Related Observation LastModified by Organization Detai ls LastModified Time None Recorded Concern Status LastModified by Organization Details LastModified Time None Recorded Advance Directives Directive None Recorded Payers Insurance Date Sequence Insurance Name Policy Number Policy Lara Covered Member ID Lara Member ID Guarantor Name 06/12/2024 1 [facility] [id number] Annetta E E McElwey [id number] Annetta E McElwey 06/15/2024 [facility] ([facility]PLAC[facility] /ADVANTAGE - PPO) [id number] Annetta E E McElwey [id number] Annetta E McElwey Notes Date Note Type Note Provider Name and Address Organization Details Recorded Time 06/12/2024 text/html ROS as noted in the HPI 78 yo F presents for evaluation of her throatangioedema last year seen [facility] new FAINA CPAP, right side of nose gets crusting, uses AYR saline and gel esophagitis and gastritis in September, on omeprazole gets scratchy, this week is a little better SANDIE WILLIAM MD [address] [place] [address], [address], [facility] - [facility] 06/13/2024 08:20:50 OBGyn Episode No OBEpisode recorded.
--- OUTSIDE RECORDS SUMMARY | 2025-03-22 17:12 | XMS_ITS | Encounter Summary ---
Author Organization [facility] Address [address] [facility] [address] [place] [address] Phone Care Team Providers Care Vault Teller Name Role Phone Damien Mcgrath MD Primary Care Provider Archie Flores MD Primary Care Provider [phone] Carmita Dietz NP Primary Care Provid er Encounter Details Date Type Department Care Team (Latest Contact Info) Description 03/02/2017 Ancillary Orders [facility] [address] [facility] 3[address] Floor, [address] [place] [address] Kash Sarabia MD [address] [place] [address] [email or web address] Diagnosis unknown Social History Tobacco Use Types [...] * DEVICE CHECK: PPM REMOTE INTERROGATION WITH COMIC BOOK ARTIST REVIEW (04/15/2018 10:27 AM EST) Narrative Kash Canas, DO - 04/18/2018 9:58 AM EST Reason for appointment: Remote pacemaker interrogation HPI: Routine 3 month remote pacemaker interrogation. No device related complaints. Indication for device: CHB Examination: Device type: Pacemaker Oil Rigger: Medtronic Mode: DDD LRL/UPL: 60/130 bpm Mode [...] unknown documented in this encounter Care Teams Vault Teller Relationship Specialty Start Date End Date Damien Mcgrath MD PCP - General 02/28/17 07/07/19 Archie Finch MD [address] [place] [address] PCP - General Internal Medicine 07/08/19 08/11/23 Carmita Dietz NP [address] [place] [address] PCP - General Nurse Practitioner 08/12/23 documented as of this encounter Additional Source Comments The information contained in this document represents components of the legal health record. It is not the complete legal health record.[facility]
--- OUTSIDE RECORDS SUMMARY | 2025-03-22 17:12 | XMS_ITS | Encounter Summary ---
Author Organization [facility] Address [address] [facility] [address] [place] [address] Phone Care Team Providers Care Respiratory Therapy Aide Name Role Phone Carmita Dietz NP Primary Care Provid er Encounter Details Date Type Department Care Team (Late st Contact Info) Description 12/16/2023 Procedure Pass Non-Invasive Cardiology [address] [place] [address] Social History Tobacco Use Types Packs/Day Years [...] on filedocumented in this encounter Care Teams Respiratory Therapy Aide Relationship Specialty Start Date End Date Carmita Dietz NP [address] [place] [address] PCP - General Nurse Practitioner 08/12/23 documented as of this encounter Additional Source Comments The information contained in this document represents components of the legal health record. It is not the complete legal health record.[facility]
--- OUTSIDE RECORDS SUMMARY | 2025-03-22 17:12 | XMS_ITS | Encounter Summary ---
Author Organization [facility] Address [address] [facility] [address] [place] [address] Phone Care Team Providers Care Systems Eng Name Role Phone Damien Mcgrath MD Primary Care Provider Unava Archie Lui MD Primary Care Provider [phone] Carmita Dietz NP Primary Care Provid er Encounter Details Date Type Department Care Team (Late st Contact Info) Description 09/30/2018 Ancillary [facility] [address] [place] [address] Kash Sarabia MD [address] [place] [address] [place] [address] [email or web address] Social History Tobacco Use Types Packs/Day Years [...] on filedocumented in this encounter Care Teams Systems Eng Relationship Specialty Start Date End Date Damien Mcgrath MD PCP - General 02/28/17 07/07/19 Archie Finch MD [address] [facility] [address] [place] [address] PCP - General Internal Medicine 07/08/19 08/11/23 Carmita Dietz NP [address] [place] [address] PCP - General Nurse Practitioner 08/12/23 documented as of this encounter Additional Source Comments The information contained in this document represents components of the legal health record. It is not the complete legal health record.[facility]
--- OUTSIDE RECORDS SUMMARY | 2025-03-22 17:12 | XMS_ITS | Encounter Summary ---
Author Organization [facility] Address [address] [facility] [address] [place] [address] Phone Care Team Providers Care Install And Repair Technician Name Role Phone Archie Finch MD Primary Care Provider + [phone] Carmita Dietz NP Primary Care Provid er Encounter Details Date Type Department Care Team (Late st Contact Info) Description 04/14/2020 Procedure Pass Non-Invasive Cardiology [address] [place] [address] Social History Tobacco Use Types Packs/Day Years [...] on filedocumented in this encounter Care Teams Install And Repair Technician Relationship Specialty Start Date End Date Archie Finch MD [address] [place] [address] PCP - General Internal Medicine 07/08/19 08/11/23 Carmita Dietz NP [address] [place] [address] [place] [address] PCP - General Nurse Practitioner 08/12/23 documented as of this encounter Additional Source Comments The information contained in this document represents components of the legal health record. It is not the complete legal health record.[facility]
--- OUTSIDE RECORDS SUMMARY | 2025-03-22 17:12 | XMS_ITS | Encounter Summary ---
Author Organization [facility] Address [address] [facility] [address] [place] [address] Phone Care Team Providers Care Crop Or Grain Farmer Name Role Phone Damien Mcgrath MD Primary Care Provider Archie Flores MD Primary Care Provider [phone] Carmita Dietz NP Primary Care Provid er Encounter Details Date Type Department Care Team (Late st Contact Info) Description 09/30/2018 Ancillary Orders Non-Invasive Cardiology [address] [place] [address] Kash Sarabia MD [address] [facility] [place] [address] [email or web address] Heart block Social History Tobacco Use Types [...] disorder documented in this encounter Care Teams Crop Or Grain Farmer Relationship Specialty Start Date End Date Damien Mcgrath MD PCP - General 02/28/17 07/07/19 Archie Finch MD [address] [place] [address] [place] [address] PCP - General Internal Medicine 07/08/19 08/11/23 Carmita Dietz NP [address] [place] [address] PCP - General Nurse Practitioner 08/12/23 documented as of this encounter Additional Source Comments The information contained in this document represents components of the legal health record. It is not the complete legal health record.[facility]
--- OUTSIDE RECORDS SUMMARY | 2025-03-22 17:12 | XMS_ITS | Encounter Summary ---
Author Organization [facility] Address [address] [facility] [address] [place] [address] Phone Care Team Providers Care Shellfish Manager Name Role Phone Carmita Dietz BIOLOGICAL SCIENCES PROFESSOR-C Primary Care Provider + Reason for Visit * Reason Comments Med Refill Encounter Details Date Type Department Care Team (Late st Contact Info) Description 02/27/2023 Refill [facility] [address] [place] [phone] Arsen Villegas MD Social History Tobacco Use [...] on filedocumented in this encounter Care Teams Shellfish Manager Relationship Specialty Start Date End Date Carmita Dietz NP-C [address] [place] [address] PCP - General Nurse Practitioner 07/18/22 documented as of this encounter
--- OUTSIDE RECORDS SUMMARY | 2025-03-22 17:12 | XMS_ITS | Encounter Summary ---
Author Organization [facility] Address [address] [facility] [address] [place] [address] Phone Care Team Providers Care Office Clerk Name Role Phone Carmita Dietz NP Primary Care Provid er Encounter Details Date Type Department Care Team (Late st Contact Info) Description 12/25/2023 Procedure Pass [facility] [address] [place] [address] Social History Tobacco Use Types Packs/Day Years [...] on filedocumented in this encounter Care Teams Office Clerk Relationship Specialty Start Date End Date Carmita Dietz NP [address] [place] [address] PCP - General Nurse Practitioner 08/12/23 documented as of this encounter Additional Source Comments The information contained in this document represents components of the legal health record. It is not the complete legal health record.[facility]
--- OUTSIDE RECORDS SUMMARY | 2025-03-22 17:12 | XMS_ITS | Encounter Summary ---
Author Organization [facility] Address [address] [facility] [address] [place] [address] Phone Care Team Providers Care Regional Clinical Research Associate Name Role Phone Archie Finch MD Primary Care Provider + [phone] Carmita Dietz NP Primary Care Provid er Encounter Details Date Type Department Care Team (Late st Contact Info) Description 03/12/2020 Procedure Pass Non-Invasive Cardiology [address] [place] [address] Social History Tobacco Use Types Packs/Day Years [...] on filedocumented in this encounter Care Teams Regional Clinical Research Associate Relationship Specialty Start Date End Date Archie Finch MD [address] [place] [address] PCP - General Internal Medicine 07/08/19 08/11/23 Carmita Dietz NP [address] [place] [address] [place] [address] PCP - General Nurse Practitioner 08/12/23 documented as of this encounter Additional Source Comments The information contained in this document represents components of the legal health record. It is not the complete legal health record.[facility]
--- OUTSIDE RECORDS SUMMARY | 2025-03-22 17:12 | XMS_ITS | Clinical Summary ---
Author Organization [facility] Address [address] [address] Phone Care Team Providers Care Bulk Intake Worker Name Role Phone Carmita Dietz NP [...] Resolved Date Complete heart block 01/09/2018 021 Immunizations No known immunizations Social History Tobacco [...] VACCINE (#1) 2024 COVID-19 VACCINE ( - 2024- season) 2025 HEMOGLOBIN A1C 05/06/2025 11/04/2024, 01/12, [...] this topic Medical Devices Implanted Type Area Salon Assistant Device Identifier Shelf Expiration Date Model / Serial / Lot Medtronic Pacemaker Device Pacemaker [place] [address] [place] - [id number] Implanted:Qty : 1 on 12/25/2023 by Grover Infante MD at [facility] Pacemaker Left: Chest [employer] [facility] [id number] 05/26/2025 [id number] / [id number] / Procedures Procedure Name Priority Date/Time Associated Diagnosis Comments HEMOGLOBIN A1C Routine 11/04/2024 9:51 AM EDT Type 2 diabetes mellitus without complication, unspecified whether termite treater helper insulin use RENAL PANEL Routine 11/04/2024 9:51 AM EDT Type 2 diabetes mellitus without complication, unspecified whether termite treater helper insulin use MICROALBUMIN/CREATIN INE RATIO, RANDOM URINE Routine 02/02/2021 9:32 AM EDT Type 2 diabetes mellitus without complication, unspecified whether assisted insulin use THYROID STIMULATING HORMONE (TSH) Routine 02/02/2021 9:29 AM EDT Type 2 diabetes mellitus without complication, unspecified whether assisted insulin use from Last 3 Months or Most Recently Relevant to Health Maintenance Results * (ABNORMAL) Renal panel (11/04/2024 9:51 AM EDT) SODIUM 135 133 - 146 mmol/L [facility] POTASSIUM 4.4 3.3 - 5.1 mmol/L [facility] CHLORIDE 102 96 - 108 mmol/L [facility] CO2 23 21 - 35 mmol/L [facility] GLUCOSE 136(H) 70 - 99 mg/dL [facility] BUN 19 6 - 19 mg/dL [facility] CREATININE 1.10 0.5 - 1.5 mg/dL [facility] CALCIUM 11.0(H) 8.4 - 10.3 mg/dL [facility] PHOSPHORUS 3.0 2.7 - 4.5 mg/dL [facility] ALBUMIN 4.1 3.9 - 4.8 g/dL [facility] EGFR 51(L) >59 mL/min/1.7 3m2 [facility] Comment:Estimated glomerular filtration rate calculated using the CKD-EPI refit equation. ANION GAP 14 10 - 20 mmol/L [facility] Blood 11/04/2024 9:51 AM EDT 11/04/2024 9:55 AM EDT us Jamaal Ham MD LAB BLOOD BKR ORDERABLES Fin al Result Performing Organization Address City/[facility]/ZIP Co de Phone Number [address] [address] * (ABNORMAL) Hemoglobin A1c (11/04/2024 9:51 AM EDT) HEMOGLOBIN A1C 6.3(H) 4.3 - 5.8 % [facility] Blood 11/04/2024 9:51 AM EDT 11/04/2024 9:55 AM EDT Jamaal Ham MD LAB BLOOD BKR ORDERABLES Fin al Result Performing Organization Address [facility] Co de Phone Number [address] [address] * Microalbumin/creatinine ratio, random urine (02/02/2021 9:32 AM EDT) URINE MICROALBUMIN <1.2 0 - 2.3 mg/dL [facility] URINE CREATININE 97 mg/dL [facility] MICROALB/CRE RATIO NOT CALCULATED 0 - 20 mg/g Cre [facility] Comment:due to Microalbumin <1.2 Urine (Urine) 02/02/2021 9:3 2 AM EDT 02/02/2021 5:49 PM EDT us Jamaal Ham MD LAB URINE ORDERABLES Final R esult Performing Organization Address [facility]/ZIP Co de Phone Number [address] [address] * TSH (02/02/2021 9:29 AM EDT) TSH 0.91 0.27 - 4.20 uIU/mL [facility] Blood 02/02/2021 9:29 AM EDT 02/02/2021 9:33 AM EDT Jamaal Ham MD LAB BLOOD BKR ORDERABLES Fin al Result [facility] [address] [place] [address] from Last 3 Months or Most Recently Relevant to Health Maintenance Insurance [employer] POS PPO REPLACEMENT [employer] PPO REPLACEMENT [employer] [place] [employer] [place] PPO REPLACEMENT [employer] [place] [employer] [place] PPO REPLACEMENT [employer] [place] [employer] [place] PPO REPLACEMENT [facility] MEDICARE POS PPO REPLACEMENT Advance Directives For more information, please contact: [phone] (9AM - 5PM [facility], Saturday-Saturday) * Full Code (Latest Code Status on File) Date Activated Date Inactivated Comments 12/25/2023 11:58 AM Question Answer Comments Code Status Confirmed With: Patient Care Teams Bulk Intake Worker Relationship Specialty Start Date End Date Carmita Dietz NP [address] [place] [address] PCP - General Nurse Practitioner 08/12/23 Additional Source Comments The information contained in this document represents components of the legal health record. It is not the complete legal health record.[facility]
--- OUTSIDE RECORDS SUMMARY | 2025-03-22 17:12 | XMS_ITS | Encounter Summary ---
Author Organization [facility] Address [address] [facility] [address] [place] [address] Phone Care Team Providers Care Hydraulic Press Operator Name Role Phone Damien Mcgrath MD Primary Care Provider Archie Flores MD Primary Care Provider [phone] Carmita Dietz NP Primary Care Provid er Encounter Details Date Type Department Care Team (Latest Contact Info) Description 10/29/2017 Transcribe Orders [facility] [address] [place] [address] Maryuri Torres PA [address] [place] [address] [address] Hypercalcemia (Primary Dx) Social History Tobacco Use [...] 8:37 AM EDT) COLLECTION DATA 24 HOUR [facility] TOTAL VOLUME 1,050 mL [facility] 10/29/2017 8:37 AM EDT 10/29/2017 8:40 AM EDT us Maryuri MARSHALL URINE ORDERABLES Mae l Result Performing Organization Address [facility]/ZIP Co de Phone Number [address] [address] * Phosphorus, 24 hr urine (10/29/2017 8:37 AM EDT) URINE PHOSPHORUS 50.8 mg/dL [facility] PHOSPHORUS OUTPUT 533.4 400 - 1,300 mg/total output [facility] Urine (Urine) 10/29/2017 8:3 7 AM EDT 10/29/2017 8:40 AM EDT us Maryuri MARSHALL URINE ORDERABLES Mae l Result [address] [address] * Creatinine, 24 hr urine (10/29/2017 8:37 AM EDT) URINE CREATININE 96 mg/dL [facility] CREATININE OUTPUT 1,008 600 - 1,800 mg/total output [facility] Urine (Urine) 10/29/2017 8:3 7 AM EDT 10/29/2017 8:40 AM EDT us Maryuri MARSHALL LAB URINE ORDERABLES Final Result Performing Organization Address City/[facility]/ZIP Co de Phone Number [address] [address] * (ABNORMAL) Calcium, 24 hour urine (10/29/2017 8:37 AM EDT) URINE CALCIUM 3.9 mg/dL [facility] CALCIUM OUTPUT 41(L) 100 - 300 mg/total output [facility] Urine (Urine) 10/29/2017 8: 37 AM EDT 10/29/2017 8:40 AM EDT us Maryuri MARSHALL URINE ORDERABLES Mae l Result Performing Organization Address [facility] Co de Phone Number [address] [address] * (ABNORMAL) Renal panel (10/29/2017 8:37 AM EDT) SODIUM 144 133 - 146 mmol/L [facility] POTASSIUM 4.9 3.3 - 5.1 mmol/L [facility] CHLORIDE 104 96 - 108 mmol/L [facility] CO2 26 21 - 35 mmol/L [facility] GLUCOSE 135(H) 70 - 99 mg/dL [facility] BUN 20(H) 6 - 19 mg/dL [facility] CREATININE 1.20 0.5 - 1.5 mg/dL [facility] CALCIUM 10.6(H) 8.4 - 10.3 mg/dL [facility] PHOSPHORUS 3.2 2.7 - 4.5 mg/dL [facility] ALBUMIN 3.9 3.9 - 4.8 g/dL [facility] EGFR 45(L) >59 mL/min/1.7 3m2 [facility] Comment:If patient is black, multiply result by 1.159. Estimated glomerular filtration rate calculated using the CKD-EPI equation. ANION GAP 19 10 - 20 mmol/L [facility] Blood 10/29/2017 8:37 AM EDT 10/29/2017 8:39 AM EDT us Maryuri Luna Brian MARSHALL LAB BLOOD BKR ORDERAB LES Final Result [facility] [address] [place], [place] [id number] documented in this encounter Visit Diagnoses Diagnosis Hypercalcemia- Primary documented in this encounter Care Teams Hydraulic Press Operator Relationship Specialty Start Date End Date Damien Mcgrath MD PCP - General 02/28/17 07/07/19 Archie Finch MD [address] [place] [address] PCP - General Internal Medicine 07/08/19 08/11/23 Carmita Dietz NP [address] [place] [address] PCP - General Nurse Practitioner 08/12/23 documented as of this encounter Additional Source Comments The information contained in this document represents components of the legal health record. It is not the complete legal health record.[facility]
--- OUTSIDE RECORDS SUMMARY | 2025-03-22 17:12 | XMS_ITS | Encounter Summary ---
Author Organization [facility] Address [address] [facility] [address] [place] [address] Phone Care Team Providers Care Trading Floor Operator Name Role Phone Damien Mcgrath MD Primary Care Provider Unava Archie Lui MD Primary Care Provider [phone] Carmita Dietz NP Primary Care Provid er Encounter Details Date Type Department Care Team (Late st Contact Info) Description 03/02/2017 Ancillary [facility] [address] [place] [address] Kash Sarabia MD [address] [place] [address] [place] [address] [email or web address] Social History Tobacco Use Types Packs/Day Years [...] on filedocumented in this encounter Care Teams Trading Floor Operator Relationship Specialty Start Date End Date Damien Mcgrath MD PCP - General 02/28/17 07/07/19 Archie Finch MD [address] [facility] [address] [place] [address] PCP - General Internal Medicine 07/08/19 08/11/23 Carmita Dietz NP [address] [place] [address] PCP - General Nurse Practitioner 08/12/23 documented as of this encounter Additional Source Comments The information contained in this document represents components of the legal health record. It is not the complete legal health record.[facility]
--- NOTE | 2025-03-25 12:28 | MHC.OFFVIS ---
Intake Visit Reasons: lower parameters to assess for Afib Allergies EMELIA Inhibitors Adverse Reaction (Severe, Verified 02/19/25 10:45) Angioedema PFSH Medical History (Updated 11/09/24 @ 14:26 by Arsen Villegas MD) Pacemaker at end of battery life Elevated lipase Mass of left lung AV block Type 2 diabetes mellitus with unspecified complications Pacemaker Hypercholesteremia GERD (gastroesophageal reflux disease) Hypothyroid Hypertension Surgical History History of tonsillectomy H/O total knee replacement H/O: hysterectomy Hx of cholecystectomy Family History Mother HTN (hypertension) Heart attack Father No problems noted. Maternal Grandmother Breast cancer Social History Household Members: Spouse Housing: House Do you presently have visiting nurse or other home services: No Alcohol intake: current Alcohol intake frequency: holidays/special occasions only Patient Tobacco Use Status: Never used Tobacco Advance Directives Date on File: 08/13/23 service: No Office Procedures Cardiac Device Check Cardiac Device Check Details: Pacemaker interrogated today, dual-chamber device, programmed DDD. Battery status more than 10 years. Normal lead parameters. Atrial pacing 5.1%. Ventricular pacing 98%. Overall, normal device function. [id number] Cardiac Device Check, pacemaker dual lead Procedure code (CPT) selection complete Assessment & Plan Assessment & Plan (1) Pacemaker: Code(s): Z95.0 - Presence of cardiac pacemaker Category: Medical (2) AV block: Code(s): I44.30 - Unspecified atrioventricular block Category: Medical Plan x Coding Level of Care Code Procedure Only Diagnoses Pacemaker Z95.0 AV block I44.30 CPT Codes Cardiac Device Check - Cardiac Device 2: 60471-YP Cardiac Device Check, pacemaker dual lead ([id number])
== END 2025-03-22 15:53 | disposition home or self-care (01) ==
LOC: HO.HCS 14:59
PROVIDERS: PCP Nurse Practitioner Primary Care; Visit Provider Nurse Practitioner Family
DX: I44.30 Unspecified atrioventricular block (principal); Z95.0 Presence of cardiac pacemaker
CPT/HCPCS: 93280

== ENCOUNTER → 2025-03-22 14:58 | Outpatient (BNVA) | payer MEDICARE, SELFPAY | PROVIDERS: PCP Nurse Practitioner Primary Care; Visit Provider Nurse Practitioner Family | DX: Z45.018 Encounter for adjustment and management of other part of cardiac pacemaker (principal); I44.30 Unspecified atrioventricular block | CPT/HCPCS: 93280 ==

== ENCOUNTER → 2025-04-18 14:30 | Outpatient (BNV) | payer MEDICARE, SELFPAY | PROVIDERS: PCP Nurse Practitioner Primary Care; Visit Provider Internal Medicine | DX: I44.30 Unspecified atrioventricular block (principal); Z95.0 Presence of cardiac pacemaker | CPT/HCPCS: 93294 ==

== ENCOUNTER 2025-04-22 15:27 | Outpatient (REF) | payer MEDICARE, SELFPAY ==
--- OUTSIDE RECORDS SUMMARY | 2020-02-16 10:20 | XMS_ITS | Encounter Summary ---
Author Organization [facility] Address [address] [facility] [address] [place] [address] Phone Care Team Providers Care Facilities Operations Technician Name Role Phone Archie Finch MD Primary Care Provider +1 [phone] Encounter Details Date Type Department Care Team (Late st Contact Info) Description 02/16/2020 11:20 AM EDT Hospital Encounter [facility] [address] [place] [address] Christine Lemos CNP 12 [place], [place] [phone] [email or web address] Social History Tobacco Use Types Packs/Day Years [...] without acute bony pathology apparent. POS - [id number] Narrative 02/16/2020 11:38 AM EDT COMPARISON: None [...] but without acute bony pathologyapparent. POS - [id number] Christine Lemos RESERVATIONS SALES AGENT IMG XR LOWER EXTREMITY Mae l Result documented in this encounter Visit Diagnoses Not on filedocumented in this encounter Care Teams Facilities Operations Technician Relationship Specialty Start Date End Date Archie Finch MD [address] [place] [address] PCP - General Internal Medicine 07/08/19 08/11/23 documented as of this encounter Additional Source Comments The information contained in this document represents components of the legal health record. It is not the complete legal health record.[facility]
--- OUTSIDE RECORDS SUMMARY | 2020-04-18 11:37 | XMS_ITS | Encounter Summary ---
Author Organization [facility] Address [address] [facility] [address] [place] [address] Phone Care Team Providers Care Sandblast Or Shotblast Equipment Tender Name Role Phone Archie Finch MD Primary Care Provider +1 -[phone] Encounter Details Date Type Department Care Team (Late st Contact Info) Description 04/18/2020 11:37 AM EST Hospital Encounter [facility] [address] [place] [address] Christine Lemos CNP 12 [place], [place] [phone] [email or web address] Social History Tobacco Use [...] Name Priority Date/Time Associated Diagnosis Comments XR RIBS 2 VIEWS (LEFT) Urgent/patient waiting 04/18/2020 11:45 AM EST Rib pain on left side Fall on same level from slipping, tripping or stumbling, initial encounter documented in this encounter Results * XR RIBS 2 VIEWS (LEFT) (04/18/2020 11:45 AM EST) Anatomical Region Laterality Modality Chest Radiographic Shanda ging 04/18/2020 11:5 3 AM EST Impressions 04/18/2020 11:55 AM EST No acute rib fracture visualized. If there is clinical suspicion of a sub-radiographic fracture bone scintigraphy could be considered. POS [id number] Narrative 04/18/2020 11:55 AM EST COMPARISON: None FINDINGS: A total of 4 views were obtained, somewhat limited due to patient body habitus. No discrete rib fracture or abnormal pleural-based opacity are noted. Remainder the dura the visualized regional skeletal structures are grossly intact. Cardiac pacemaker leads are intact. Procedure Note Archie Gtz MD - 04/18/2020 COMPARISON: None FINDINGS: A total of 4 views were obtained, somewhat limited due to patient bodyhabitus. No discrete rib fracture or abnormal pleural-based opacity arenoted. Remainder the dura the visualized regional skeletal structures aregrossly intact. Cardiac pacemaker leads are intact. IMPRESSION: No acute rib fracture visualized. If there is clinical suspicion of asub- radiographic fracture bone scintigraphy could be considered. POS [id number] Christine Lmeos OB/GYN PHYSICIAN IMG XR CHEST Final Resul t documented in this encounter Visit Diagnoses Not on filedocumented in this encounter Care Teams Sandblast Or Shotblast Equipment Tender Relationship Specialty Start Date End Date Archie Finch MD 300 [facility] [address] [place] [address] PCP - General Internal Medicine 07/08/19 08/11/23 documented as of this encounter Additional Source Comments The information contained in this document represents components of the legal health record. It is not the complete legal health record.[facility]
--- OUTSIDE RECORDS SUMMARY | 2020-11-14 09:15 | XMS_ITS | Encounter Summary ---
Author Organization [facility] Address [address] [facility] [address] [place] [address] Phone Care Team Providers Care Electronic Communications Technician Name Role Phone Archie Finch MD Primary Care Provider [phone] [phone] Encounter Details Date Type Department Care Team (Late st Contact Info) Description 11/14/2020 10:15 AM EDT Hospital Encounter [facility] [address] [place] [address] Shakila Duff FNP 12 [place], [place] [phone] [email or web address] Social History Tobacco Use Types Packs/Day [...] IMPRESSION: No fracture or dislocation. Shakila Duff SECURITY OFFICER IMG XR LOWER EXTREMITY Mae l Result documented in this encounter Visit Diagnoses Not on filedocumented in this encounter Care Teams Electronic Communications Technician Relationship Specialty Start Date End Date Archie Finch MD [address] [place] [address] PCP - General Internal Medicine 07/08/19 08/11/23 documented as of this encounter Additional Source Comments The information contained in this document represents components of the legal health record. It is not the complete legal health record.[facility]
--- OUTSIDE RECORDS SUMMARY | 2022-05-23 11:49 | XMS_ITS | Encounter Summary ---
Author Organization [facility] Address [address] [facility] [address] [place] [address] Phone Care Team Providers Care Certified Activities Director Name Role Phone Archie Finch MD Primary Care Provider +1 [phone] Encounter Details Date Type Department Care Team (Late st Contact Info) Description 05/23/2022 11:49 AM EST Hospital Encounter [facility] [address] [place] [address] Christine Lemos CNP [address] [place], [place] [phone] [email or web address] Social History Tobacco Use [...] No fracture or dislocation. Christine Coelho Aminta ROLL CLEANER IMG XR LOWER EXTREMITY Mae l Result documented in this encounter Visit Diagnoses Not on filedocumented in this encounter Care Teams Certified Activities Director Relationship Specialty Start Date End Date Archie Finch MD [address] [place] [address] PCP - General Internal Medicine 07/08/19 08/11/23 documented as of this encounter Additional Source Comments The information contained in this document represents components of the legal health record. It is not the complete legal health record.[facility]
--- OUTSIDE RECORDS SUMMARY | 2023-09-01 09:37 | XMS_ITS | Encounter Summary ---
Author Organization [facility] Address [address] [place] [phone] Phone Care Team Providers Care Printed Circuit Boards Plasma Etcher Name Role Phone Carmita Dietz NP Primary Care Provid er Encounter Details Date Type Department Care Team (Late st Contact Info) Description 09/01/2023 10:37 AM EDT Hospital Encounter [facility] [address] [place] [phone] Shakila Duff FNP [address] [place] [address] [email or web address] Social History Tobacco Use Types Packs/Day [...] XR ANKLE 3 OR MORE VIEWS (LEFT) (09/01/2023 10:48 AM EDT) Anatomical Region Laterality Modality Ankle Left Computed Radiogr aphy 09/01/2023 11:4 8 [...] tissue swelling of the ankle. Shakila Duff TRACK REPAIR SUPERVISOR IMG XR LOWER EXTREMITY Mae l Result documented in this encounter Visit Diagnoses Not on filedocumented in this encounter Care Teams Printed Circuit Boards Plasma Etcher Relationship Specialty Start Date End Date Carmita Dietz NP [address] [place] [phone] PCP - General Nurse Practitioner 08/12/23 documented as of this encounter Additional Source Comments The information contained in this document represents components of the legal health record. It is not the complete legal health record.[facility]
--- OUTSIDE RECORDS SUMMARY | 2023-09-01 09:37 | XMS_ITS | Encounter Summary ---
Author Organization [facility] Address [address] [place] [address] Phone Care Team Providers Care Print Room Worker Name Role Phone Carmita Dietz NP Primary Care Provid er Encounter Details Date Type Department Care Team (Late st Contact Info) Description 09/01/2023 10:37 AM EDT Hospital Encounter [facility] [address] [place] [address] Shakila Duff FNP 12 [place] [address] CHIRAG@[email or web address] Social History Tobacco Use Types Packs/Day [...] tissue swelling of the ankle. Shakila Duff LEATHER GOODS MAKER IMG XR LOWER EXTREMITY Mae l Result documented in this encounter Visit Diagnoses Not on filedocumented in this encounter Care Teams Print Room Worker Relationship Specialty Start Date End Date Carmita Dietz NP [address] [place] [phone] PCP - General Nurse Practitioner 08/12/23 documented as of this encounter Additional Source Comments The information contained in this document represents components of the legal health record. It is not the complete legal health record.[facility]
--- OUTSIDE RECORDS SUMMARY | 2023-10-23 10:00 | XMS_ITS ---
Author Organization [facility] Address [address] [place] [address] Care Team Providers Care Auto Design Checker Name Role Phone Carmita Dietz N.P Primary Care Provider Un available Cash Mercado Unavailable [phone] REASON FOR VISIT Patient presents today patient haven't been feeling well. Encounters Encounter Location Date Provider Diagnosis [facility] [address] [place] [address] 10/23/2023 Cash Mercado Plan Of Treatment Next Appt Details Provider Name:Cash Mercado , 06/01/2025 03:00:00 PM, [address], [address], [place], [address], Progress Notes * LULI DE LUNA EDOB:1945 (79 yo F)Acc No.[id number]:10/23/2023 Progress Notes Patient: LULI STONER Provider: Fidel Mercado MD :1945 A ge:77 Y S ex:Female Date:10/23/2023 Address:[address] [place] [address], [id number] Pcp:Carmita Dietz N.P Subjective: * Chief Complaints: * P atient presents today patient haven't been feeling well. * The named appointment provid er may or may not be the originator of this progress note, and it is not deemed complete until electronically signed by the appointment provider. Sign off status: Pending * Provider: Fidel Mercado MD Date: 0 10/23/2023 Generated for Nehemiah ashford/Opal/Damáinitting on: 1 06/23/2024 11:01 PM EST
--- NOTE | ~2025-04-22 | CT_ITS ---
EXAMINATION: CT CHEST WITHOUT CONTRAST CLINICAL INFORMATION: Solitary pulmonary nodule. COMPARISON: April 27, 2024 TECHNIQUE: Multidetector volumetric CT imaging of the chest was done. Axial MIP volume rendering provided. Sagittal and coronal reformatted images were obtained. This CT examination was performed using dose optimization techniques as appropriate, variously including the following: *Automated exposure control *Adjustment of mA and/or kV according to patient size (this includes techniques or standardized protocols for targeted exams where dose is matched to indication/reason for exam; i.e. extremities or head) *Use of iterative reconstruction technique DLP: 257 mGy-cm FINDINGS: TECHNICAL REP: Patient's large body habitus. Left-sided pacemaker with 3 intact electrode leads. Multilevel spondylosis. Left upper extremity to the side of the body. LUNGS: There is a 2 x 3 x 3 cm spiculated marginated peribronchial septal the noncalcified mass in the left lung base. Small focal saccular bronchiectasis, lung bases pronounced on the left lung. No honeycombing. 2 mm noncalcified pulmonary nodule, lingula. Linear and patchy pulmonary groundglass in the periphery of the lower lung lobes. MEDIASTINUM: Nonspecific prominent less than 9 mm mediastinal and perihilar lymph nodes. The heart is enlarged, predominantly the left ventricle. The lateral leads in the right heart chambers and coronary sinus. Calcified plaques in the thoracic aorta wall and its main branches and the coronary arteries. No aneurysm, thoracic aorta. Trace of pericardial effusion. No pneumomediastinum. No hemopericardium. Thyroid gland is small without gross dominant nodules. CORONARY ARTERY CALCIFICATION: Calcified plaques. PLEURA: No pleural effusion. No pneumothorax. No calcified pleural plaques. No hemothorax. AXILLA: No lymphadenopathy left-sided pacemaker reservoir in the anterior left upper chest wall.. UPPER ABDOMEN: Nodular surface of the liver and likely enlarged. Calcified plaques in the splenic artery. Calcified plaque in the origin of the left main renal artery, superior mesenteric artery and celiac trunk. Multiple cystic lesions in the kidneys. Soft tissue fullness left adrenal gland without nodular lesion. OSSEOUS STRUCTURES: Degenerative changes in the glenohumeral joints with the partially calcified capsules. Multilevel spondylosis throughout the axial skeleton without acute fracture or gross listhesis. No lytic or blastic lesions. CT/CT chest wo IV con IMPRESSION: 2 x 3 x 3 cm spiculated noncalcified mass, left lung base. Larger. Concerning for malignancy. Cardiomegaly. Coronary artery disease and atherosclerosis disease. Probable medical renal disease with the multifocal renal cysts. Concerning hepatocellular disease/cirrhosis. Fleischner guidelines were followed. Electronically signed by: Marbin Romero MD 04/23/2025 07:09 AM AIDE
[2025-04-22 16:03] LABS: Hematocrit 30.5 % (37.0-47.0); Hemoglobin 9.6 g/dl (12.0-16.0); Mean Corpuscular HGB Conc 31.5 g/dl (31.0-35.0); Mean Corpuscular Hemoglobin 25.6 pg (27.0-33.0); Mean Corpuscular Volume 81.3 fL (80.0-98.0); NRBC Abs Auto 0.000 X10*3/uL (0.0-0.012); NRBC Pct Auto 0.0 /100WBC (0.0-0.2); Platelet Count 259 X10*3/uL (160-400); Red Blood Count 3.75 X10*6/uL (4.20-5.50); White Blood Count 13.1 X10*3/uL (4.8-10.8)
[2025-04-22 16:10] LABS: Anion Gap 14 (12-20); Blood Urea Nitrogen 21 mg/dL (9-16); Calcium 10.9 mg/dL (8.4-10.2); Carbon Dioxide 25 mmol/L (22-29); Chloride 103 mmol/L (96-108); Estimated Glomerular Filt Rate 30; Magnesium 1.9 mg/dL (1.6-2.6); Potassium 3.9 mmol/L (3.3-5.1); Sodium 138 mmol/L (135-145)
[2025-04-22 16:17] LABS: Parathyroid Hormone Intact 281.2 pg/mL (8.7-77.1)
--- OUTSIDE RECORDS SUMMARY | 2025-04-22 23:01 | XMS_ITS | Clinical Summary ---
Author Organization [facility] Address [address] [address] Phone Care Team Providers Care Sales And Operations Trainee Name Role Phone Carmita Dietz NP Primary [...] VACCINE (1 - 1-dose 75+ series) 12/07/2018 INFLUENZA VACCINE (#1) 2024 COVID-19 VACCINE ( - season) 2025 BLOOD PRESSURE 06/11/2025 12/09/2024 HEMOGLOBIN A1C 10/15/2025 04/16/2025, 10/12, 02/02/2021, Additional history exists CREATININE LEVEL 04/16/2026 04/16/2025, , 07/10/2024, Additional history exists POTASSIUM LEVEL 04/16/2026 04/16/2025, 10/12, 07/10/2024, Additional history exists TSH LEVEL 04/16/2026 04/16/2025, 01/12, 01/21/2020, Additional history exists URINE MICROALBUMIN/CREATININE RATIO 04/20/2026 04/20/2025, 02/02/2021, 09/06/2020, Additional history exists HEPATITIS A VACCINES Aged [...] this topic Medical Devices Implanted Type Area Propagator Laborer Device Identifier Shelf Expiration Date Model / Serial / Lot Medtronic Pacemaker Device Pacemaker Lorraine Xt Dr Chamberlain - [id number] Implanted:Qty : 1 on 12/25/2023 by Grover Infante MD at [facility] Pacemaker Left: Chest [facility] [id number] 05/26/2025 [id number] / [id number] / Procedures Procedure Name Priority Date/Time Associated Diagnosis Comments MICROALBUMIN/CREATINI NE RATIO, RANDOM URINE Routine 04/20/2025 8:30 AM EST Type 2 diabetes mellitus without complications Diabetes mellitus without complication COMPREHENSIVE METABOLIC PANEL (CMP) Routine 04/16/2025 3:21 PM EST Type 2 diabetes mellitus without complications Diabetes mellitus without complication LIPID PANEL Routine 04/16/2025 3:21 PM EST Type 2 diabetes mellitus without complications Diabetes mellitus without complication PHOSPHORUS Routine 04/16/2025 3:21 PM EST Type 2 diabetes mellitus without complications Diabetes mellitus without complication FREE T4 Routine 04/16/2025 3:21 PM EST Type 2 diabetes mellitus without complications Diabetes mellitus without complication THYROID STIMULATING HORMONE (TSH) Routine 04/16/2025 3:21 PM EST Type 2 diabetes mellitus without complications Diabetes mellitus without complication BETA-CROSSLAPS (B-CTX) Routine 04/16/2025 3:21 PM EST Type 2 diabetes mellitus without complications Diabetes mellitus without complication HEMOGLOBIN A1C Routine 04/16/2025 3:21 PM EST Type 2 diabetes mellitus without complications 25-OH VITAMIN D Routine 04/16/2025 3:21 PM EST Type 2 diabetes mellitus without complications PARATHYROID HORMONE (PTH) Routine 04/16/2025 3:21 PM EST Type 2 diabetes mellitus without complications MAGNESIUM Routine 04/16/2025 3:21 PM EST Type 2 diabetes mellitus without complications from Last 3 Months Results * Microalbumin/Creatinine Ratio, Random Urine (04/20/2025 8:30 AM EST) Creatinine, Urine 92 mg/dL 04/20/2025 12:19 PM [facility] Microalbumin, Urine <1.2 <2.0 mg/dL 04/20/2025 12:19 PM [facility] MALB/CRE 04/20/2025 12:19 PM [facility] Comment:Unable to calculate. Urine (Urine, Voided) Non-Blood Collection / Unknown 04/20/2025 8:30 AM EST 04/20/2025 10:11 AM EST [facility] - 04/20/2025 12:19 PM EST The reference interval(s) are unavailable for this specimen type. Comparison of this result with other laboratory results, such as the concentration in the blood, serum, or plasma, is recommended. The test result should be integrated into the clinical context for interpretation. Jamaal Ham MD LAB URINE ORDERABLES Final R esult [address] [address] * (ABNORMAL) Comprehensive Metabolic Panel (CMP) (04/16/2025 3:21 PM EST) Sodium 137 136 - 145 mmol/L 04/16/2025 8:43 PM [facility] Potassium 4.1 3.4 - 5.1 mmol/L 04/16/2025 8:43 PM [facility] Chloride 96(L) 98 - 107 mmol/L 04/16/2025 8:43 PM [facility] CO2 25 20 - 31 mmol/L 04/16/2025 8:43 PM [facility] BUN 25(H) 6 - 23 mg/dL 04/16/2025 8:43 PM [facility] Creatinine 1.70(H) 0.50 - 1.00 mg/dL 04/16/2025 8:43 PM [facility] Glucose 140(H) 70 - 99 mg/dL 04/16/2025 8:43 PM [facility] Calcium 10.8(H) 8.5 - 10.5 mg/dL 04/16/2025 8:43 PM EST [facility] AST 17 <33 U/L 04/16/2025 8:43 PM [facility] ALT 6 <34 U/L 04/16/2025 8:43 PM [facility] Alkaline Phosphatase 79 40 - 130 U/L 04/16/2025 8:43 PM [facility] Bilirubin, Total 0.3 0.0 - 1.2 mg/dL 04/16/2025 8:43 PM [facility] Total Protein 7.1 6.4 - 8.3 g/dL 04/16/2025 8:43 PM [facility] Albumin 4.3 3.5 - 5.2 g/dL 04/16/2025 8:43 PM [facility] Globulin 2.8 1.9 - 4.1 g/dL 04/16/2025 8:43 PM [facility] eGFR 30(L) >59 mL/min/1.7 3m2 04/16/2025 8:43 PM [facility] Comment:Estimated glomerular filtration rate calculated using the CKD-EPI refit equation. Anion Gap 16 3 - 17 mmol/L 04/16/2025 8:43 PM [facility] Blood (Blood) Venipuncture / Unknown 04/16/2025 3:21 PM EST 04/16/2025 3:21 PM EST us Jamaal Ham MD LAB BLOOD BKR ORDERABLES Fin al Result [facility] [address] [place] [address] * (ABNORMAL) Beta-CrossLaps (B-Ctx) (04/16/2025 3:21 PM EST) Beta-CrossLaps (B-CTx), S 1272(H) pg/mL 04/20/2025 7:16 PM EST [facility] [email or web address] Flutter Comment: REFERENCE VALUE 148-967 (18-29 y) 150-635 (30-39 y) 131-670 (40-49 y) 183-1060 (50-59 y) 171-970 (60-69 y) 152-858 (>70 y) 136-689 (Premenopausal) 177-1015 (Postmenopausal) Flagging is based on the age-specific reference interval and not menopausal status. Blood (Blood) Venipuncture / Unknown 04/16/2025 3:21 PM EST 04/16/2025 3:21 PM EST Jamaal Ham MD LAB BLOOD BKR ORDERABLES Fin al Result [facility] ([facility]AKER) [facility] [address] [phone] * 25-OH Vitamin D (04/16/2025 3:21 PM EST) 25-OH Vitamin D, Total 36 20 - 50 ng/mL 04/16/2025 5:50 PM EST [facility] Comment: Severe deficiency: <10 ng/mL Mild to moderate deficiency: 10-19 ng/mL Optimum levels: 20-50 ng/mL Increased risk of hypercalciuria: 51-80 ng/mL Possible toxicity: >80 ng/mL Blood (Blood) Venipuncture / Unknown 04/16/2025 3:21 PM EST 04/16/2025 3:21 PM EST Jamaal Ham MD LAB BLOOD BKR ORDERABLES Fin al Result [facility] [address] [place] [address] * Thyroid Stimulating Hormone (TSH) (04/16/2025 3:21 PM EST) TSH 1.35 0.40 - 7.50 uIU/mL 04/16/2025 6:18 PM EST [facility] Blood (Blood) Venipuncture / Unknown 04/16/2025 3:21 PM EST 04/16/2025 3:21 PM EST Jamaal Ham MD LAB BLOOD BKR ORDERABLES Fin al Result Performing Organization Address [facility]/ZIP Co de Phone Number [address] [address] * T4, Free (04/16/2025 3:21 PM EST) T4, Free 1.7 0.9 - 1.8 ng/dL 04/16/2025 6:18 PM EST [facility] Blood (Blood) Venipuncture / Unknown 04/16/2025 3:21 PM EST 04/16/2025 3:21 PM EST Jamaal Ham MD LAB BLOOD BKR ORDERABLES Fin al Result Performing Organization Address [facility] Co de Phone Number [address] [address] * Phosphorus (04/16/2025 3:21 PM EST) Phosphorus 2.9 2.5 - 4.5 mg/dL 04/16/2025 8:43 PM EST [facility] Blood (Blood) Venipuncture / Unknown 04/16/2025 3:21 PM EST 04/16/2025 3:21 PM EST Jamaal Ham MD LAB BLOOD BKR ORDERABLES Fin al Result Performing Organization Address [facility] Co de Phone Number [address] [address] * (ABNORMAL) Parathyroid Hormone (PTH) (04/16/2025 3:21 PM EST) Parathyroid Hormone (PTH) 185(H) 15 - 65 pg/mL 04/16/2025 5:50 PM EST [facility] Blood (Blood) Venipuncture / Unknown 04/16/2025 3:21 PM EST 04/16/2025 3:21 PM EST Jamaal Ham MD LAB BLOOD BKR ORDERABLES Fin al Result Performing Organization Address [facility] Co de Phone Number [address] [address] * Magnesium (04/16/2025 3:21 PM EST) Magnesium 2.1 1.7 - 2.6 mg/dL 04/16/2025 8:43 PM [facility] Blood (Blood) Venipuncture / Unknown 04/16/2025 3:21 PM EST 04/16/2025 3:21 PM EST Jamaal Ham MD LAB BLOOD BKR ORDERABLES Fin al Result Performing Organization Address [facility] de Phone Number [address] [address] * (ABNORMAL) Hemoglobin A1c (04/16/2025 3:21 PM EST) Hemoglobin A1c 6.4(H) 4.3 - 5.6 % 04/16/2025 5:34 PM [facility] Calculated Mean Blood Glucose 137 mg/dL 04/16/2025 5:34 PM [facility] Comment:There is no establ[facility] normal range for the Estimated Average Glucose (EAG). However, a HbA1c of 5.6% (upper limit of normal) represents an EAG of 114 mg/dL. The diagnostic HbA1c level for diabetes is greater than or equal to 6.5%, which represents an EAG greater than or equal to 140 mg/dL. Blood (Blood) Venipuncture / Unknown 04/16/2025 3:21 PM EST 04/16/2025 3:21 PM EST Jamaal Ham MD LAB BLOOD BKR ORDERABLES Fin al Result Performing Organization Address [facility] Co de Phone Number [address] [address] * (ABNORMAL) Lipid Panel (04/16/2025 3:21 PM EST) Cholesterol 134 <200 mg/dL 04/16/2025 8:43 PM [facility] HDL 48 >=40 mg/dL 04/16/2025 8:43 PM [facility] Calculated LDL 48 <130 mg/dL 04/16/2025 8:43 PM [facility] Comment:LDL is calculated us ing the Monsalve-NIH equation ([employer] Cardiol. 2019September 10;5(5):540-548). Non-HDL Cholesterol 86 mg/dL 04/16/2025 8:43 PM [facility] Comment:Guidelines suggest a non-HDL cholesterol goal 30 mg/dL higher than the patient-specific LDL cholesterol goal. Cardiac Risk Ratio 2.8 0.0 - 5.0 2024 8:43 PM [facility] Triglycerides 246(H) <=150 mg/dL 04/16/2025 8:43 PM [facility] Blood (Blood) Venipuncture / Unknown 04/16/2025 3:21 PM EST 04/16/2025 3:21 PM EST us Jamaal Ham MD LAB BLOOD BKR ORDERABLES Fin al Result Performing Organization Address [facility]/ZIP Co de Phone Number [address] [address] from Last 3 Months Insurance [employer] POS PPO REPLACEMENT [employer] PPO REPLACEMENT [employer] PPO REPLACEMENT [employer] PPO REPLACEMENT [employer] PPO REPLACEMENT [employer] PPO REPLACEMENT Advance Directives For more information, please contact: [phone] (9AM - 5PM [facility], Saturday-Saturday) * Full Code (Latest Code Status on File) Date Activated Date Inactivated Comments 12/25/2023 11:58 AM Question Answer Comments Code Status Confirmed With: Patient Care Teams Sales And Operations Trainee Relationship Specialty Start Date End Date Carmita Dietz NP [address] [place] [id number] PCP - General Nurse Practitioner 08/12/23 Additional Source Comments The information contained in this document represents components of the legal health record. It is not the complete legal health record.[facility]
--- OUTSIDE RECORDS SUMMARY | 2025-04-22 23:01 | XMS_ITS | Encounter Summary ---
Author Organization [facility] Address [address] [facility] [address] [place] [address] Phone Care Team Providers Care Computer Bookkeeper Name Role Phone Archie Finch MD Primary Care Provider + [phone] Carmita Dietz NP Primary Care Provid er Encounter Details Date Type Department Care Team (Late st Contact Info) Description 03/12/2020 Procedure Pass Non-Invasive Cardiology [address] [place] [address] Social History Tobacco Use Types Packs/Day Years [...] on filedocumented in this encounter Care Teams Computer Bookkeeper Relationship Specialty Start Date End Date Archie Finch MD [address] [place] [id number] PCP - General Internal Medicine 07/08/19 08/11/23 Carmita Dietz NP [address] [place] [address] [place] [address] PCP - General Nurse Practitioner 08/12/23 documented as of this encounter Additional Source Comments The information contained in this document represents components of the legal health record. It is not the complete legal health record.[facility]
--- OUTSIDE RECORDS SUMMARY | 2025-04-22 23:01 | XMS_ITS | Encounter Summary ---
Author Organization [facility] Address [address] [facility] [address] [place] [address] Phone Care Team Providers Care Dimensional Inspector Name Role Phone Damien Mcgrath MD Primary Care Provider Archie Flores MD Primary Care Provider [phone] Carmita Dietz NP Primary Care Provid er Encounter Details Date Type Department Care Team (Latest Contact Info) Description 03/02/2017 Ancillary Orders [facility] [address] [facility] 3rd Floor, [address] [place] [address] Kash Sarabia MD [address] [place] [address] [email or web address] Diagnosis unknown Social History Tobacco Use Types [...] * DEVICE CHECK: PPM REMOTE INTERROGATION WITH DOCUMENT REVIEWER REVIEW (04/15/2018 10:27 AM EST) Narrative Kash Canas, DO - 04/18/2018 9:58 AM EST Reason for appointment: Remote pacemaker interrogation HPI: Routine 3 month remote pacemaker interrogation. No device related complaints. Indication for device: CHB Examination: Device type: Pacemaker Lathe Mechanic: Medtronic Mode: DDD LRL/UPL: 60/130 bpm Mode [...] unknown documented in this encounter Care Teams Dimensional Inspector Relationship Specialty Start Date End Date Damien Mcgrath MD PCP - General 02/28/17 07/07/19 Archie Finch MD [address] [place] [address] PCP - General Internal Medicine 07/08/19 08/11/23 Carmita Dietz NP [address] [place] [address] PCP - General Nurse Practitioner 08/12/23 documented as of this encounter Additional Source Comments The information contained in this document represents components of the legal health record. It is not the complete legal health record.[facility]
--- OUTSIDE RECORDS SUMMARY | 2025-04-22 23:01 | XMS_ITS | Encounter Summary ---
Author Organization [facility] Address [address] [facility] [address] [place] [address] Phone Care Team Providers Care Grease Refining Supervisor Name Role Phone Archie Finch MD Primary Care Provider + [phone] Carmita Dietz NP Primary Care Provid er Encounter Details Date Type Department Care Team (Late st Contact Info) Description 04/14/2020 Procedure Pass Non-Invasive Cardiology [address] [place] [address] Social History Tobacco Use Types Packs/Day Years [...] on filedocumented in this encounter Care Teams Grease Refining Supervisor Relationship Specialty Start Date End Date Archie Finch MD [address] [place] [id number] PCP - General Internal Medicine 07/08/19 08/11/23 Carmita Dietz NP [address] [place] [address] [place] [address] PCP - General Nurse Practitioner 08/12/23 documented as of this encounter Additional Source Comments The information contained in this document represents components of the legal health record. It is not the complete legal health record.[facility]
--- OUTSIDE RECORDS SUMMARY | 2025-04-22 23:01 | XMS_ITS ---
Author Name Jesusita Amin Address Unknown Organization [facility] Care Team Providers Care Electronic Resources Librarian Name Role Phone Unavailable Primary Care Physician Unavailab le History Of Present Illness This is an 79 year old female who is an established patient who is being seen for an evaluation of skin lesions.Location: body throughoutQuality: dry, flakySeverity: mildDuration: 1 yearHistory of Previous Treatments: has not been treatedPertinent History: basal cell skin cancer (see interval history) and squamous cell skin cancer (see interval history)Pertinent Negatives: no family history of melanoma and no family history of non-melanoma skin cancerAdditional Visit Reasons: education and counseling about sun exposure, evaluation for suspicious growths, evaluation of current nevi, and surveillance against skin cancer recurrencesAdditional History: Patient presents for complete skin exam. Pt has concern above lip that sometimes hurts and is very dry and flaky. Pt tried Vaseline for it within the past year but it won???t fully resolve. Allergies, Adverse Reactions, Alerts Substance RxNorm Reaction(s) Severity Status Start Da te EMELIA Inhibitors unspecified active Medications Medication Generic Name RxNorm Strength Strength Unit Route Dose Dose Form Frequency Date Started Date Ended Status Indication Sig mupirocin mupiroci n 039130 2 % Topica l ointm ent 12/29/19 23 suspend ed AAA BID unti l heal ed amlodipine amlodipi ne Oral active amlodipine- benazepril 10-20 mg Oral capsu le suspend ed Ya Low Dose Aspirin aspirin 81 mg Oral table t,del ayed relea se (/Keerthi Santos) suspend ed Biotin Plus biotin-l utein 5,000 mcg- 10 mg Oral 1 table t QD active cinacalcet 30 mg Oral table t active Lasix furosemi de 20 mg Oral 1 table t QD active levothyroxi ne 75 mcg Oral table t active metformin 500 mg Oral table t active omeprazole omeprazo le Oral active pantoprazol e 40 mg Oral table t,del ayed relea se (/Keerthi Santos) suspend ed pravastatin 20 mg Oral tabl e t suspend ed rosuvastati n rosuvast atin Oral active spironolact one 25 mg Oral table t active Tylenol Extra Strength acetamin ophen 500 mg Oral 1 table t PRN active active Problems Problem Code Type Status Date of Diagnosis Da te of Resolution Seborrheic keratosis (disorder) 847752974(SN OMED) Diagnosis active 12/14/2022 Disorder of pigmentation (disorder) 384128088(SN OMED) Diagnosis active 12/14/2022 Melanocytic nevus (disorder) 950610496(SN OMED) Diagnosis active 12/14/2022 Hemangioma of skin and subcutaneous tissue (disorder) 834495182(SN OMED) Diagnosis active 12/14/2022 Neoplasm of uncertain behavior of skin (disorder) 62918393(SNO MED) Diagnosis active 12/14/2022 Diabetes mellitus (disorder) 42232851(SNO MED) Problem active History of hypertension (situation) 979930115(SN OMED) Problem active Surgical follow-up (finding) 741720679(SN OMED) Diagnosis active 12/28/2022 Basal cell carcinoma of truncal skin (disorder) 063754367(SN OMED) Diagnosis active 01/11/2023 Neoplasm of uncertain behavior of skin (disorder) 74116710(SNO MED) Diagnosis active 12/20/2023 Inflamed seborrheic keratosis (disorder) 988682885(SN OMED) Diagnosis active 12/20/2023 Seborrheic keratosis (disorder) 009314754(SN OMED) Diagnosis active 12/20/2023 Disorder of pigmentation (disorder) 331586216(SN OMED) Diagnosis active 12/20/2023 Melanocytic nevus (disorder) 347120523(SN OMED) Diagnosis active 12/20/2023 Hemangioma of skin and subcutaneous tissue (disorder) 864660545(SN OMED) Diagnosis active 12/20/2023 History of malignant neoplasm of skin (situation) 495863898(SN OMED) Diagnosis active 12/20/2023 Actinic keratosis (disorder) 272743007(SN OMED) Diagnosis active 04/29/2024 Inflamed seborrheic keratosis (disorder) 697969556(SN OMED) Diagnosis active 04/29/2024 History of neoplasm (situation) 823328282(SN OMED) Diagnosis active 04/29/2024 History of neoplasm (situation) 775902291(SN OMED) Diagnosis active 04/22/2025 History of malignant neoplasm of skin (situation) 219628459(SN OMED) Diagnosis active 04/22/2025 Actinic keratosis (disorder) 748765249(SN OMED) Diagnosis active 04/22/2025 Melanocytic nevus (disorder) 447632040(SN OMED) Diagnosis active 04/22/2025 Seborrheic keratosis (disorder) 028802418(SN OMED) Diagnosis active 04/22/2025 Disorder of pigmentation (disorder) 147131376(SN OMED) Diagnosis active 04/22/2025 Hemangioma of skin and subcutaneous tissue (disorder) 732750700(SN OMED) Diagnosis active 04/22/2025 Arthritis (disorder) 5164546(SNOM ED) Problem active Basal cell carcinoma of skin (disorder) 092730225(SN OMED) Problem active Squamous cell carcinoma (disorder) 871003824(SN OMED) Problem active Results No data Encounters Service provided at [facility], [address] [place] [address], [address], [place], [place] [id number]. Office phonenumber is [phone]. Office fax number is [phone]. Encounter Diagnosis Location Date / Time Type Disc harge Status History of Squamous Cell Carcinoma in situ (Z86.007)History of Basal Cell Carcinoma (Z85.828)Actinic Keratosis (L57.0)Benign Appearing Nevi (D22.9)Seborrheic Keratoses (L82.1)Lentigines (L81.4)Michel Angiomas (D18.01) [facility] 04/22/2025 14:30:00 [facility] [id number] Reason For Referral No data Procedures Procedure Date Destruction of premalignant skin lesion (procedure) 04/22/2025 12:00 am UTC Destruction of premalignant skin lesion (procedure) 04/29/2024 12:00 am [place] Cryotherapy of skin lesion with liquid n itrogen (procedure) 04/29/2024 12:00 am [place] Shave biopsy (procedure) 12/20/2023 12:0 0 am UTC Tumor destruction (procedure) 01/11/2023 12:00 am [facility] Shave biopsy (procedure) 12/14/2022 12:0 0 am [facility] Total replacement of left knee joint (pr ocedure) Documentation of past medical history (p rocedure) Total replacement of left knee joint (pr ocedure) Documentation of past medical history (p rocedure) Documentation of past medical history (p rocedure) Total replacement of left knee joint (pr ocedure) Total replacement of left knee joint (pr ocedure) Documentation of past medical history (p rocedure) Total replacement of left knee joint (pr ocedure) Documentation of past medical history (p rocedure) Total replacement of left knee joint (pr ocedure) Documentation of past medical history (p rocedure) Documentation of past medica l history (procedure) Pacemaker 2006upgrade 05/07/25 Total replacement of left knee joint (pr ocedure) 2013 Review Of Systems Provider reviewed on Apr 22, 2025.A focused review of systems was performed including Integumentary.No Problems With Healing And No Problems With Scarring (hypertrophic Or Keloid). Assessment 1.History of Squamous Cell Carcinoma in situ - 12/26/23, left popliteal skinCounseling2.History of Basal Cell Carcinoma - 12/21/22???. Left upper backCounseling3.Actinic KeratosisCounselingLiquid Nitrogen: right upper cutaneous lip; Duration of freeze thaw-cycle (seconds) - 10; Number of freeze- thaw Cycles - 2 freeze-thaw cycles; Application Tool - Cry-AC.4.Benign Appearing NeviCounseling5.Seborrheic KeratosesCounselingPointed Out by Patient6.LentiginesSunscreen Recommendations7.Michel AngiomasReassurance Plan of Care Future visit for 04/22/2026 - Follow up in 1 year for: Skin Check - 15 minutes Code Detail Instructions 836329 mupirocin 2 % topical ointment A AA BID until healed Instructions * I counseled the patient regarding the following:Contact Office if: If the patient notices discoloration or a bump arising from a previously stable scar or any new lesions that are not healing. * I counseled the patient regarding the following:Contact Office if: If the patient notices discoloration or a bump arising from a previously stable scar or any new lesions that are not healing. * I counseled the patient regarding the following:Skin Care: Sun protective clothing and broad spectrum sunscreen can prevent the formation of Actinic Keratoses. AKs can resolve with cryotherapy, photodynamic therapy, imiquimod, topical 5-FU.Expectations: Actinic Keratoses are precancerous proliferations that occur within sun damaged skin. If untreated, a small subset of AKs can develop into Squamous Cell Carcinoma.I recommended the following: Broad Spectrum Sunscreen SPF 30+ * I counseled the patient regarding the following:Expectations: Benign Nevi are pigmented nests of cells within the skin. No treatment is necessary. Instructions: Monthly self-skin checks to monitor for any changes in moles are recommendedContact Office if: Any moles change in size, shape or color; itch, burn or bleed. * I counseled the patient regarding the following:Skin Care: Seborrheic Keratoses are benign. No treatment is necessary.Expectations: Seborrheic Keratoses are benign warty growths. Patients get more ofthem as they age. No treatment is necessary.Notify clinic if lesions begin to bleed or become painful. Or if there is re growth of this lesion. Social History Code Activity Start Date End Date [id number] (SponduuOMED) Never smoker Sex Female Sexual orientation Unspecified Gender identity Unspecified Vital Signs No data Insurances Coverage Status Coverage Type Relationship to Subscriber Member Identifier Subscriber Identifier Group Identifier Payer Identifier Inactive 1 Self [id number] Active Self [id number]
--- OUTSIDE RECORDS SUMMARY | 2025-04-22 23:01 | XMS_ITS | Encounter Summary ---
Author Organization [facility] Address [address] [facility] [address] [place] [address] Phone Care Team Providers Care Rn Camp Name Role Phone Carmita Dietz NP Primary Care Provid er Encounter Details Date Type Department Care Team (Late st Contact Info) Description 12/25/2023 Procedure Pass [facility] [address] [place] [address] Social History Tobacco Use Types Packs/Day Years [...] on filedocumented in this encounter Care Teams Rn Camp Relationship Specialty Start Date End Date Carmita Dietz NP [address] [place] [address] PCP - General Nurse Practitioner 08/12/23 documented as of this encounter Additional Source Comments The information contained in this document represents components of the legal health record. It is not the complete legal health record.[facility]
--- OUTSIDE RECORDS SUMMARY | 2025-04-22 23:01 | XMS_ITS | Clinical Summary ---
Author Organization [facility] ity Address [address] [place] [address] Care Team Providers Care Massotherapist Name Role Phone Unavailable Primary Care Provider [...] Depression Screening 05/13/2024 COVID-19 Vaccine (1 - 2024-2 6 season) 2025 Influenza Vaccine (#1) 2025 HIB [...]
--- OUTSIDE RECORDS SUMMARY | 2025-04-22 23:01 | XMS_ITS | Encounter Summary ---
Author Organization [facility] Address [address] [facility] [address] [place] [address] Phone Care Team Providers Care Commercial Loan Underwriter Name Role Phone Damien Mcgrath MD Primary Care Provider Archie Flores MD Primary Care Provider [phone] Carmita Dietz NP Primary Care Provid er Encounter Details Date Type Department Care Team (Late st Contact Info) Description 09/30/2018 Ancillary Orders Non-Invasive Cardiology [address] [place] [place] [address] Kash Sarabia MD [address] [facility] [place] [address] [email or web address] Social History Tobacco Use Types [...] disorder documented in this encounter Care Teams Commercial Loan Underwriter Relationship Specialty Start Date End Date Damien Mcgrath MD PCP - General 02/28/17 07/07/19 Archie Finch MD [address] [place] [address] [place] [address] PCP - General Internal Medicine 07/08/19 08/11/23 Carmita Dietz NP [address] [place] [address] PCP - General Nurse Practitioner 08/12/23 documented as of this encounter Additional Source Comments The information contained in this document represents components of the legal health record. It is not the complete legal health record.[facility]
--- OUTSIDE RECORDS SUMMARY | 2025-04-22 23:01 | XMS_ITS | Encounter Summary ---
Author Organization [facility] Address [address] [facility] [address] [place] [address] Phone Care Team Providers Care Responder Name Role Phone Damien Mcgrath MD Primary Care Provider Unava Archie Lui MD Primary Care Provider [phone] Carmita Dietz NP Primary Care Provid er Encounter Details Date Type Department Care Team (Late st Contact Info) Description 03/02/2017 Ancillary [facility] [address] [place] [address] Kash Sarabia MD [address] [place] [address] [place] [address] [email or web address] Social History Tobacco Use Types Packs/Day Years [...] on filedocumented in this encounter Care Teams Responder Relationship Specialty Start Date End Date Damien Mcgrath MD PCP - General 02/28/17 07/07/19 Archie Finch MD [address] [facility] [address] [place] [address] PCP - General Internal Medicine 07/08/19 08/11/23 Carmita Dietz NP [address] [place] [address] PCP - General Nurse Practitioner 08/12/23 documented as of this encounter Additional Source Comments The information contained in this document represents components of the legal health record. It is not the complete legal health record.[facility]
--- OUTSIDE RECORDS SUMMARY | 2025-04-22 23:01 | XMS_ITS | Encounter Summary ---
Author Organization [facility] Address [address] [facility] [address] [place] [address] Phone Care Team Providers Care Chemotherapist Name Role Phone Damien Mcgrath MD Primary Care Provider Unava Archie Lui MD Primary Care Provider [phone] Carmita Dietz NP Primary Care Provid er Encounter Details Date Type Department Care Team (Late st Contact Info) Description 09/30/2018 Ancillary [facility] [address] [place] [address] Kash Sarabia MD [address] [place] [address] [place] [address] [email or web address] Social History Tobacco Use Types Packs/Day Years [...] on filedocumented in this encounter Care Teams Chemotherapist Relationship Specialty Start Date End Date Damien Mcgrath MD PCP - General 02/28/17 07/07/19 Archie Finch MD [address] [facility] [address] [place] [address] PCP - General Internal Medicine 07/08/19 08/11/23 Carmita Dietz NP [address] [place] [address] PCP - General Nurse Practitioner 08/12/23 documented as of this encounter Additional Source Comments The information contained in this document represents components of the legal health record. It is not the complete legal health record.[facility]
--- OUTSIDE RECORDS SUMMARY | 2025-04-22 23:01 | XMS_ITS | Encounter Summary ---
Author Organization [facility] Address [address] [facility] [address] [place] [address] Phone Care Team Providers Care Sales Attendant Name Role Phone Carmita Dietz NP Primary Care Provid er Encounter Details Date Type Department Care Team (Late st Contact Info) Description 12/16/2023 Procedure Pass Non-Invasive Cardiology [address] [place] [address] Social History Tobacco Use Types Packs/Day Years [...] on filedocumented in this encounter Care Teams Sales Attendant Relationship Specialty Start Date End Date Carmita Dietz NP [address] [place] [address] PCP - General Nurse Practitioner 08/12/23 documented as of this encounter Additional Source Comments The information contained in this document represents components of the legal health record. It is not the complete legal health record.[facility]
--- OUTSIDE RECORDS SUMMARY | 2025-04-22 23:01 | XMS_ITS | Encounter Summary ---
Author Organization [facility] Address [address] [facility] [address] [place] [address] Phone Care Team Providers Care Beater Engineer Name Role Phone Damien Mcgrath MD Primary Care Provider Archie Flores MD Primary Care Provider [phone] Carmita Dietz NP Primary Care Provid er Encounter Details Date Type Department Care Team (Latest Contact Info) Description 10/29/2017 Transcribe Orders [facility] [address] [place] [address] Maryuri Torres PA [address] [place] [address] [address] Hypercalcemia (Primary Dx) Social History Tobacco Use [...] 8:37 AM EDT) COLLECTION DATA 24 HOUR [facility] TOTAL VOLUME 1,050 mL [facility] 10/29/2017 8:37 AM EDT 10/29/2017 8:40 AM EDT us Maryuri MARSHALL URINE ORDERABLES Mae l Result Performing Organization Address [facility]/ZIP Co de Phone Number [address] [address] * Phosphorus, 24 hr urine (10/29/2017 8:37 AM EDT) URINE PHOSPHORUS 50.8 mg/dL [facility] PHOSPHORUS OUTPUT 533.4 400 - 1,300 mg/total output [facility] Urine (Urine) 10/29/2017 8:3 7 AM EDT 10/29/2017 8:40 AM EDT us Maryuri MARSHALL URINE ORDERABLES Mae l Result [address] [address] * Creatinine, 24 hr urine (10/29/2017 8:37 AM EDT) URINE CREATININE 96 mg/dL [facility] CREATININE OUTPUT 1,008 600 - 1,800 mg/total output [facility] Urine (Urine) 10/29/2017 8:3 7 AM EDT 10/29/2017 8:40 AM EDT us Maryuri MARSHALL LAB URINE ORDERABLES Final Result Performing Organization Address City/[facility]/ZIP Co de Phone Number [address] [address] * (ABNORMAL) Calcium, 24 hour urine (10/29/2017 8:37 AM EDT) URINE CALCIUM 3.9 mg/dL [facility] CALCIUM OUTPUT 41(L) 100 - 300 mg/total output [facility] Urine (Urine) 10/29/2017 8: 37 AM EDT 10/29/2017 8:40 AM EDT us Maryuri MARSHALL URINE ORDERABLES Mae l Result Performing Organization Address [facility] Co de Phone Number [address] [address] * (ABNORMAL) Renal panel (10/29/2017 8:37 AM EDT) SODIUM 144 133 - 146 mmol/L [facility] POTASSIUM 4.9 3.3 - 5.1 mmol/L [facility] CHLORIDE 104 96 - 108 mmol/L [facility] CO2 26 21 - 35 mmol/L [facility] GLUCOSE 135(H) 70 - 99 mg/dL [facility] BUN 20(H) 6 - 19 mg/dL [facility] CREATININE 1.20 0.5 - 1.5 mg/dL [facility] CALCIUM 10.6(H) 8.4 - 10.3 mg/dL [facility] PHOSPHORUS 3.2 2.7 - 4.5 mg/dL [facility] ALBUMIN 3.9 3.9 - 4.8 g/dL [facility] EGFR 45(L) >59 mL/min/1.7 3m2 [facility] Comment:If patient is black, multiply result by 1.159. Estimated glomerular filtration rate calculated using the CKD-EPI equation. ANION GAP 19 10 - 20 mmol/L [facility] Blood 10/29/2017 8:37 AM EDT 10/29/2017 8:39 AM EDT us Maryuri Luna Brian MARSHALL LAB BLOOD BKR ORDERAB LES Final Result [facility] [address] [place], [place] [id number] documented in this encounter Visit Diagnoses Diagnosis Hypercalcemia- Primary documented in this encounter Care Teams Beater Engineer Relationship Specialty Start Date End Date Damien Mcgrath MD PCP - General 02/28/17 07/07/19 Archie Finch MD [address] [place] [address] PCP - General Internal Medicine 07/08/19 08/11/23 Carmita Dietz NP [address] [place] [address] PCP - General Nurse Practitioner 08/12/23 documented as of this encounter Additional Source Comments The information contained in this document represents components of the legal health record. It is not the complete legal health record.[facility]
--- OUTSIDE RECORDS SUMMARY | 2025-04-22 23:01 | XMS_ITS | Data Portability ---
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 Patient InstructionsNo instructions recorded. Reason for Referral None Reported. Problems Name Problem SNOMED Code Status Onset Date Resolution Date Notes Provider Name and Address Organization Details Recorded Time Migraine 78725638 Active 2017 Other migraine , not intracta ble, without status migraino kervin; Note: Date Diagnose d: 8 10:47 AM (G43.809 ) Not Available [facility] 4 03:07:58 Follow-u p visit Active 2017 Encounte r for follow-u p examinat ion after complete d treatmen t for conditio ns other than malignan t neoplasm ; Note: Date Diagnose d: 04/21/20 18 2:55 PM (Z09) Not Available [facility] 4 03:08:00 Chronic sphenoid al sinusiti s 05670192 Completed 201712/13/2023 Chronic sphenoid al sinusiti s; Note: Date Diagnose d: 04/28/20 18 8:26 PM (J32.3) Chroni c sphenoid al sinusiti s; Note: Date Diagnose d: 8 11:01 AM (J32.3) ; Start Date : 02/11/20 18 Not Available [facility] 4 03:07:58 Headache 74657827 Active 2019 Facial pain NOS; Note: Date Diagnose d: 02/25/20 20 1:22 PM (R51) Facial pain NOS; Note: Date Diagnose d: 8 10:47 AM (R51) ; Start Date : 02/11/20 18 Not Available [facility] 4 03:07:59 Ulcerati ve rhinitis 96214126 Active 2019 Nasal mucositi s (ulcerat adriana); Note: Date Diagnose d: 0 1:36 PM (J34.81) Not Available [facility] 4 03:08:00 Angioede ma 10854579 Active 2023 Angioneu rotic edema, initial encounte r; Note: Date Diagnose d: 4 9:06 AM (T78.3XX A) Not Available [facility] 4 03:08:00 Gastroes ophageal reflux disease 303185744 Active 2024 SANDIE WILLIAM MD [address] [facility] [place],RAJIND[facility], [facility] [place], [address] , [facility] 5 08:18:24 Obstruct adriana sleep apnea syndrome 49521720 Active 2024 SANDIE WILLIAM MD [address] [facility] [address], [facility] [place], [address] , [facility] 5 08:18:33 Problem Notes None recorded. Procedures Surgical History Date Name Laterality Status Provider Name and Address Organization Details Recorded Time 06/12/19 Fiberoptic Laryngoscopy (Comprehensive) completed SANDIE WILLIAM MD 100 [facility],[place] [address], [place], [address], [facility] 06/13/2024 08:17:40 Imaging Results None recorded. [...] layed release 06/12 completed Medicati on ID: [id number] D uration Value: 90 Brand Name: pantopra zole Sen d Method: E-Prescr ibed Sub s Allowed: subs OK Speci al Instruct ion: TAKE 1 TABLET BY ORAL ROUTE DAILY Me dication GenericN radha: pantopra zole Not Available Not Available Not Available pravastat in 20 mg tablet 2017 active Medicati on ID: [id number] D uration Value: 90 Brand Name: pravasta [...] by mouth 06/12 completed Medicati on ID: [id number] D uration Value: 7 Prescri bed By Name: Sandie weiss MD Brand Name: cefuroxi me axetil S end Method: E-Prescr ibed Sub s Allowed: subs OK Medic ationGen ericName : cefuroxi me axetil Not Available Not Available Not Available amoxicill in 875 mg-potass ium clavulana te 125 mg tablet 05/09 completed Medicati on ID: [id number] D uration Value: 10 Reason: () Brand [...] Available Advil 04/21 completed Medicati on ID: [id number] R sergio: () Brand Name: advil Se nd Method: E-Prescr ibed Sub s Allowed: subs OK Medic ationGen ericName : advil Not Available Not Available Not Available Tylenol 06/12 completed Medicati on ID: [id number] B rand Name: tylenol Send Method: E-Prescr ibed Sub s Allowed: subs OK Medic ationGen ericName : tylenol Not Available Not Available Not Available amlodipin e 10 mg-benaze pril 40 mg capsule 06/12 completed Medicati on ID: [id number] D uration Value: 90 Brand Name: amlodipi [...] Updated DateTime 06/12/2024 157.48 cm 36.6 kg/m2 71087.47 g Georgette Lynn [place] - [facility] 06/12/2024 11:32:13 Social History None recorded. [...] ICD10 Code Diagnosis IMO Codes Diagnosis Note [id number] SANDIE WILLIAM MD [facility] [address] [address] 06/12/2024 11:19:33 06/12/2024 11:55:40 Ulcerative rhinitis 35067265 J34.81 Gastroesop hageal reflux disease 926969847 K21.00 Obstructiv e sleep apnea syndrome 79551956 G47.33 Health Concerns Section Related Observation LastModified by Organization Detai ls LastModified Time None Recorded Concern Status LastModified by Organization Details LastModified Time None Recorded Advance Directives Directive None Recorded Payers Insurance Date Sequence Insurance Name Policy Number Policy Lara Covered Member ID Lara Member ID Guarantor Name 06/12/2024 1 [facility] [id number] 01 Annetta E E McElwey [id number] Annetta E McElwey 06/15/2024 1 [facility] (MEDICARE REPLACEMENT /ADVANTAGE - PPO) [id number] Annetta E E McElwey [id number] Annetta E McElwey Notes Date Note Type [...] is a little better SANDIE WILLIAM MD [address] [place] [address], [address], [facility] - [facility] 06/13/2024 08:20:50 OBGyn Episode No OBEpisode recorded.
--- OUTSIDE RECORDS SUMMARY | 2025-04-22 23:02 | XMS_ITS | Patient Health Record ---
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 Name Role Phone Carmita Dietz N.P Primary Care Provider Un available Cash Mercado Unavailable [phone] Allergies Allergen (clinical drug ingredient) Drug/Non Drug Allergy documented on EMR Reaction Allergy Type Onset Date Status angiotensin-converting enzyme inhibitor (FN) EMELIA Inhibitors Unknown Drug Allergy Acti ve Results Component Value Reference Range Flag Notes Ferritin Reviewed date:03/10/2025 01:34:43 AM Interpretation: Performing Lab:[facility], [address] [place] [phone] Notes/Report: Ferritin 17 10-250 ng/mL N Vitamin B12 and Folate Reviewed date:03/10/2025 01:34:33 AM Interpretation: Performing Lab:[facility], [address] [place] [address] Notes/Report: Vitamin B12 831 200-900 pg/mL N NORMAL 200-900 PG/ML INDETERMINATE 160-199 PG/ML DEFICIENT < 160 PG/ML Folate 6.0 > or = 4.0 ng/mL Reference Values: > or = 4.0 ng/mL < 4.0 ng/mL suggests folate deficiency Methotrexate, aminopterin and folinic acid (leucovorin) are chemotherapeutic agents whose molecular structures are similar to folate; therefore, the Bus Info Consultant folate assay cannot be used for patients using these drugs. Transglutaminase Ab IgG Reviewed date:03/15/2025 11:22:01 PM Interpretation: Performing Lab:[facility], [address] [place] [phone] Notes/Report: Transglutaminase Ab IgG <1.0 N Value Interpretation ----- <15.0 Antibody not detected > or = 15.0 Antibody detected THIS TEST WAS PERFORMED AT: [email or web address] [address] [place] [phone] MEDHAT GAINES MD Transglutaminase IgA Reviewed date:03/15/2025 11:22:12 PM Interpretation: Performing Lab:[address] [address] Notes/Report: Transglutaminase IgA <1.0 N Value Interpretation ----- <15.0 Antibody not detected > or = 15.0 Antibody detected THIS TEST WAS PERFORMED AT: [email or web address] [address] [place] [phone] MEDHAT GAINES MD Gliadin Ab Panel Reviewed date:03/15/2025 11:22:28 PM Interpretation: Performing Lab:[facility], [address] [place] [phone] Notes/Report: Gliadin Deamidated IgA Ab <1.0 N Value Interpretation ----- <15.0 Antibody not detected > or = 15.0 Antibody detected Gliadin Deamidated IgG Ab <1.0 N Value Interpretation ----- <15.0 Antibody not detected > or = 15.0 Antibody detected THIS TEST WAS PERFORMED AT: [email or web address] [address] [place] [phone] MEDHAT GAINES MD Endomysial IgA rflx Titer Reviewed date:03/15/2025 06:07:01 PM Interpretation: Performing Lab:[address] [address] Notes/Report: Endomysial IgA Antibody Negative Negative THIS TEST WAS PERFORMED AT: [employer] [address] [place] [address] JOSE C DOWNS MD,PHD Endomysial Titer TNP Complete Blood Count Auto Di ff Reviewed date:03/30/2025 10:01:01 PM Interpretation: Performing Lab:[facility], [address] [place] [phone] Notes/Report: White Blood Count 9.7 4.8-10.8 X10*3/uL N Red Blood Count 3.92 4.20-5.50 X10*6/uL L Hemoglobin 10.2 12.0-16.0 g/dl L Hematocrit 32.6 37.0-47.0 % L Mean Corpuscular Volume 83.2 80.0-98.0 fL N Mean Corpuscular Hemoglobin 26.0 27.0-33.0 pg L Mean Corpuscular HGB Conc 31.3 31.0-35.0 g/dl N Red Cell Distribution Width 14.6 11.0-16.0 % N Platelet Count 241 160-400 X10*3/uL N Mean Platelet Volume 10.0 9.4-12.3 fL N Neutrophils Percent Auto 64.4 45-73 % N Imm Gran Pct Auto 0.4 0.0-0.4 % N Lymphocytes Percent Auto 22.6 20-40 % N Monocytes Percent Auto 8.5 2-11 % N Eosinophils Percent Auto 3.3 0-4 % N Basophils Percent Auto 0.8 0-2 % N NRBC Pct Auto 0.0 0.0-0.2 /100WBC N Neutrophils Absolute Auto 6.2 2.0-8.3 x10*3/uL N Imm Gran Abs Auto 0.04 0.00-0.03 X10*3/uL H Lymphocytes Absolute Auto 2.2 1.2-4.9 X10*3/uL N Monocytes Absolute Auto 0.8 0.1-1.2 X10*3/uL N Eosinophils Absolute Auto 0.3 0.0-0.4 X10*3/uL N Basophils Absolute Auto 0.1 0.0-0.2 X10*3/uL N NRBC Abs Auto 0.000 0.0-0.012 X10*3/uL N Liver Panel Reviewed date:03/09/2025 05:57:20 PM Interpretation: Performing Lab:[facility], [address] [place] [phone] Notes/Report: Bilirubin Total 0.4 0.0-1.0 mg/dL N Bilirubin Direct 0.1 0.0-0.5 mg/dL N Aspartate Amino Transferase 26 5-31 U/L N Alanine Aminotransferase 14 0-31 U/L N Total Protein 7.5 6.5-8.0 g/dL N Albumin Level 4.6 3.5-5.0 g/dL N Alkaline Phosphatase 81 39-117 U/L N Basic Metabolic Panel Reviewed date:03/10/2025 01:34:23 AM Interpretation: Performing Lab:[facility], [address] [place] [phone] Notes/Report: Sodium 142 135-145 mmol/L N Potassium 3.9 3.3-5.1 mmol/L N Chloride 109 96-108 mmol/L H Carbon Dioxide 24 22-29 mmol/L N Anion Gap 13 12-20 N Blood Urea Nitrogen 20 9-16 mg/dL H Creatinine 1.31 0.5-1.4 mg/dL N Estimated Glomerular Filt Rate 39 Chronic Kidney Disease: Estimated GFR < 60 mL/min/1.73m2 Severe Kidney Disease: Estimated GFR < 15 mL/min/1.73m2 Glucose Random 148 60-115 mg/dL H Calcium 10.9 8.4-10.2 mg/dL H IRON PROFILE Reviewed date:03/30/2025 10:00:21 PM Interpretation: Performing Lab:[address] [address] Notes/Report: Iron 45 30-160 mcg/dL N Total Iron Binding Capacity 407 228-428 mcg/dL N Percent Iron Saturation 11 15-50 % L Unsaturated Iron Binding 362 Reason For Referral No Information Medications Medication SIG (Take, Route, Frequency, Duration) Notes Start Date End Date Status Ondansetron 4 MG Tablet Disintegrating 1 tablet on the tongue and allow to dissolve Orally Every 4 to 6 hours if needed for nausea; Duration: 30 days 03/09/2025 Active Gas Relief 40 MG/0.6ML Liquid as directed Orally Active Omeprazole 40 MG Capsule Delayed Release TAKE 1 CAPSULE BY MOUTH EVERY DAY IN THE MORNING FOR 90 DAYS; Duration: 90 Active Levothyroxine Sodium 75 MCG Tablet 1 tablet on an empty stomach in the morning Orally Once a day Active Metamucil - Packet 1 packet with 8 ounc es of liquid as needed Orally 3-4 times a week Active metFORMIN HCl 500 MG Tablet 1 tablet wit h meals Orally Twice a day Active Cinacalcet HCl 30 MG Tablet 1 tablet wit h food or after a meal Orally Once a day; Duration: 30 day(s) Active Prebiotic Product Ac tive Rosuvastatin Calcium 5 MG Tablet 1 tablet Orally Once a day; Duration: 30 day(s) Active Magnesium 400 MG Capsule as directed Orally Active Biotin Maximum 33878 MCG Tablet Disintegrating as directed Orally Active Tylenol 8 Hour 650 MG Tablet Extended Release 2 tablets as needed Orally every 6 hrs Active Amlodipine & Diet Manage Prod 10-40 1 tablet Orally once a day Active Spironolactone 25 MG Tablet 1/2 tablet O rally Once a day Active Immunizations Vaccine Route Administration Date Status Comme nts Influenza Unknown 02/11/2016 Administered Influenza Unknown 02/27/2022 Administered Influenza Unknown 03/05/2023 Administered Influenza Unknown 03/12/2024 Administered Pneumococcal Unknown 04/12/2022 Administered Social History Social History Additional Details Category Social Info Options Details Miscellaneous: Marital status: 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 Section Notes: Nonsmoker; no sig alcohol Nonsmoker; no sig alcohol Nonsmoker; no sig alcohol Nonsmoker; no sig alcohol Nonsmoker; no sig alcohol Problems Problem Type SNOMED Code ICD Code Onset Dates Problem Status W/U Status Risk Notes Problem Epigastric pain (83121197) Epigastric pain (R10.13) Active confirmed Problem Screening for malignant neoplasm of colon (698436182) Encounter for screening for malignant neoplasm of colon (Z12.11) Active confirmed Problem History of adenomatous polyp of colon (441832685) History of adenomatous polyp of colon (Z86.010) Active confirmed Problem Ulcer of esophagus (91019652) Ulcer of esophagus without bleeding (K22.10) Active confirmed Problem Diverticular disease of colon (502316762) Diverticulosis of large intestine without perforation or abscess without bleeding (K57.30) Active confirmed Problem Nausea (535197704) Nausea (R11.0) Active confir med Problem Early satiety (119677095) Early satiety (R68.81) Active confirmed Problem Iron deficiency anemia (87800021) Iron deficiency anemia (D50.9) Active confirmed Problem Gastroesophageal reflux disease without esophagitis (986053761) Gastroesophageal reflux disease without esophagitis (K21.9) Active confirmed Problem Hiatal hernia (64808738) Hiatal hernia (K44.9) Active confirmed Problem Chronic gastritis (8960833) Gastritis, chronic (K29.50) Active confirmed Problem Computed tomography result abnormal (517274902) Abnormal CT scan, colon (R93.3) Active confirmed Problem Erosive esophagitis (34800185) Erosive esophagitis (K22.10) Active confirmed Problem Irregular bowel habits (173199205) Irregular bowel habits (R19.8) Active confirmed Problem Incontinence of feces (41210372) Incontinence of feces, unspecified fecal incontinence type (R15.9) Active confirmed Problem Diaphragmatic hernia (44564348) Hernia, hiatal (K44.9) Active confirmed Problem Gastroesophageal reflux disease (disorder) (396283918) Chronic GERD (K21.9) Active confirmed Vital Signs Temperature 97.2 degrees Fahrenheit 03/09/2025 Blood pressure diastolic 01 mm Hg 03/09/2025 Height 62.50 in 03/09/2025 Blood pressure systolic 001 mm Hg 03/09/2025 Weight 210.2 lbs 03/09/2025 BMI 37.83 kg/m2 03/09/2025 Encounters Encounter Location Date Provider Diagnosis [facility] [address] [place] [phone] 03/09/2025 Cash Mercado Nausea R11.0 ; Iron deficiency anemia D50.9 and Early satiety R68.81 [facility] [address] [place] [phone] 03/30/2025 Cash Mercado Assessments Encounter Date Diagnosis (ICD [...] IBC (FE) 03/09/2025 CBC w DIFF 03/09/2025 Future Test Test Name Order Date COLONOSCOPY 02/14/2011 COLONOSCOPY 10/31/2016 UPPER GI ENDOSCOPY 09/18/2023 COLONOSCOPY 09/18/2023 Next Appt Details Provider Name:Cash Mercado , 06/01/2025 03:00:00 PM, [address] [place] [address], [address], [place], [address], Insurance Providers Payer Name Payer Address Payer Phone Subscriber Number Group Number Insured Name Patient Relationship to Insured Coverage Start Date Coverage End Date [facility] [address] [place] [address] [phone] [id number] ANNETTA DE LUNA Self - patient is the insured Medical (General) History Medical History History ICD Code NIDDM Hyperlipidemia Hypertension Pacemaker-sees Dr. Patel Arthritis Denies [place],CVA,Lung disease,renal disease Urinary incontinence-mild [...] of December 2024 Surgical History Surgery Date(Month/Year) Pacemaker- replaced in 2016 AMAURY Left knee replacement 03/2011 Carpal tunnel release L & R CCY 3rd pacemaker replacement 12/25/2023 New pacemaker scheduled for 03/2025 Hospitalization History Reason Date(Month/Year)
== END 2025-04-22 15:28 | disposition home or self-care (01) ==
LOC: HO.CT 15:27
PROVIDERS: Absent Provider Internal Medicine Hypertension Specialist; PCP Nurse Practitioner Primary Care; Visit Provider Internal Medicine Pulmonary Disease
DX: R91.1 Solitary pulmonary nodule (principal); E83.52 Hypercalcemia; N18.9 Chronic kidney disease, unspecified
CPT/HCPCS: 36415; 71250; 80048; 83735; 83970; 85027

== ENCOUNTER → 2025-04-22 15:50 | Outpatient (BNV) | payer MEDICARE, SELFPAY | PROVIDERS: Absent Provider Internal Medicine Hypertension Specialist; PCP Nurse Practitioner Primary Care; Visit Provider Radiology Diagnostic Radiology | DX: I51.7 Cardiomegaly (principal); I25.10 Atherosclerotic heart disease of native coronary artery without angina pectoris; R91.8 Other nonspecific abnormal finding of lung field | CPT/HCPCS: 71250 ==

== ENCOUNTER 2025-04-27 15:13 | Outpatient (AMB) | payer MEDICARE, SELFPAY ==
--- OUTSIDE RECORDS SUMMARY | 2020-02-16 10:20 | XMS_ITS | Encounter Summary ---
Author Organization [facility] Address [address] [facility] [address] [place] [address] Phone Care Team Providers Care Hand Picker Name Role Phone Archie Finch MD Primary Care Provider +1 [phone] Encounter Details Date Type Department Care Team (Late st Contact Info) Description 02/16/2020 11:20 AM EDT Hospital Encounter [facility] [address] [place] [address] Christine Lemos CNP 12 [place], [place] [phone] [email or web address] Social History Tobacco Use Types Packs/Day Years [...] Laterality Modality Ankle Right, Foot Right [facility] 02/16/2020 11:3 6 AM EDT Impressions 02/16/2020 11:38 AM EDT Pronounced Achilles enthesopathy and distal tendon calcification with overlying soft tissue swelling but without acute bony pathology apparent. POS - [id number] Narrative 02/16/2020 11:38 AM EDT COMPARISON: None [...] but without acute bony pathologyapparent. POS - [id number] Christine Lemos SETTLEMENT PROCESSOR IMG XR LOWER EXTREMITY Mae l Result documented in this encounter Visit Diagnoses Not on filedocumented in this encounter Care Teams Hand Picker Relationship Specialty Start Date End Date Archie Finch MD [address] [place] [address] PCP - General Internal Medicine 07/08/19 08/11/23 documented as of this encounter Additional Source Comments The information contained in this document represents components of the legal health record. It is not the complete legal health record.[facility]
--- OUTSIDE RECORDS SUMMARY | 2020-04-18 11:37 | XMS_ITS | Encounter Summary ---
Author Organization [facility] Address [address] [facility] [address] [place] [address] Phone Care Team Providers Care Mail Carrier Technician Name Role Phone Archie Finch MD Primary Care Provider +1 -[phone] Encounter Details Date Type Department Care Team (Late st Contact Info) Description 04/18/2020 11:37 AM EST Hospital Encounter [facility] [address] [place] [address] Christine Lemos CNP 12 [place], [place] [phone] [email or web address] Social History Tobacco Use Types Packs/Day Years [...] fracture bone scintigraphy could be considered. POS [id number] Narrative 04/18/2020 11:55 AM EST COMPARISON: None [...] fracture bone scintigraphy could be considered. POS [id number] Christine Lemos MANAGER SERVICE DESK IMG XR CHEST Final Resul t documented in this encounter Visit Diagnoses Not on filedocumented in this encounter Care Teams Mail Carrier Technician Relationship Specialty Start Date End Date Archie Finch MD [address] [facility] [address] [place] [address] PCP - General Internal Medicine 07/08/19 08/11/23 documented as of this encounter Additional Source Comments The information contained in this document represents components of the legal health record. It is not the complete legal health record.[facility]
--- OUTSIDE RECORDS SUMMARY | 2020-11-14 09:15 | XMS_ITS | Encounter Summary ---
Author Organization [facility] Address [address] [facility] [address] [place] [address] Phone Care Team Providers Care Claim Agent Name Role Phone Archie Finch MD Primary Care Provider [phone] [phone] Encounter Details Date Type Department Care Team (Late st Contact Info) Description 11/14/2020 10:15 AM EDT Hospital Encounter [facility] [address] [place] [address] Shakila Duff FNP 12 [place], [place] [phone] [email or web address] Social History Tobacco Use Types Packs/Day [...] IMPRESSION: No fracture or dislocation. Shakila Duff SUPERINTENDENT METER TESTS IMG XR LOWER EXTREMITY Mae l Result documented in this encounter Visit Diagnoses Not on filedocumented in this encounter Care Teams Claim Agent Relationship Specialty Start Date End Date Archie Finch MD [address] [place] [address] PCP - General Internal Medicine 07/08/19 08/11/23 documented as of this encounter Additional Source Comments The information contained in this document represents components of the legal health record. It is not the complete legal health record.[facility]
--- OUTSIDE RECORDS SUMMARY | 2022-05-23 11:49 | XMS_ITS | Encounter Summary ---
Author Organization [facility] Address [address] [facility] [address] [place] [address] Phone Care Team Providers Care Income Tax Consultant Name Role Phone Archie Finch MD Primary Care Provider +1 -[phone] Encounter Details Date Type Department Care Team (Late st Contact Info) Description 05/23/2022 11:49 AM EST Hospital Encounter [facility] [address] [place] [address] Christine Lemos CNP 12 [place], [place] [phone] [email or web address] Social History Tobacco Use Types [...] No fracture or dislocation. Christine Coelho Aminta METAL POLISHER AND BUFFER APPRENTICE IMG XR LOWER EXTREMITY Mae l Result documented in this encounter Visit Diagnoses Not on filedocumented in this encounter Care Teams Income Tax Consultant Relationship Specialty Start Date End Date Archie Finch MD [address] [place] [address] PCP - General Internal Medicine 07/08/19 08/11/23 documented as of this encounter Additional Source Comments The information contained in this document represents components of the legal health record. It is not the complete legal health record.[facility]
--- OUTSIDE RECORDS SUMMARY | 2023-09-01 09:37 | XMS_ITS | Encounter Summary ---
Author Organization [facility] Address [address] [place] [phone] Phone Care Team Providers Care Powder Mill Operator Name Role Phone Carmita Dietz NP Primary Care Provid er Encounter Details Date Type Department Care Team (Late st Contact Info) Description 09/01/2023 10:37 AM EDT Hospital Encounter [facility] [address] [place] [address] Shakila Duff FNP 12 [place] [address] [email or web address] Social History Tobacco Use [...] tissue swelling of the ankle. Shakila Duff FANS CLERK IMG XR LOWER EXTREMITY Mae l Result documented in this encounter Visit Diagnoses Not on filedocumented in this encounter Care Teams Powder Mill Operator Relationship Specialty Start Date End Date Carmita Dietz NP [address] [place] [address] PCP - General Nurse Practitioner 08/12/23 documented as of this encounter Additional Source Comments The information contained in this document represents components of the legal health record. It is not the complete legal health record.[facility]
--- OUTSIDE RECORDS SUMMARY | 2023-09-01 09:37 | XMS_ITS | Encounter Summary ---
Author Organization [facility] Address [address] [place] [address] Phone Care Team Providers Care Tip Fixer Name Role Phone Carmita Dietz NP Primary Care Provid er Encounter Details Date Type Department Care Team (Late st Contact Info) Description 09/01/2023 10:37 AM EDT Hospital Encounter [facility] [address] [place] [address] Shakila Duff FNP 12 [place] [address] [email or web address] Social History Tobacco Use Types [...] tissue swelling of the ankle. Shakila Duff FACILITIES OFFICER IMG XR LOWER EXTREMITY Mae l Result documented in this encounter Visit Diagnoses Not on filedocumented in this encounter Care Teams Tip Fixer Relationship Specialty Start Date End Date Carmita Dietz NP [address] [place] [address] PCP - General Nurse Practitioner 08/12/23 documented as of this encounter Additional Source Comments The information contained in this document represents components of the legal health record. It is not the complete legal health record.[facility]
--- NOTE | 2025-04-27 15:50 | HO.NEPHOV_ITS ---
Vital Signs 04/27/25 15:53 Height 5 ft 2 in Weight 189 lb BMI 34.6 BP 118/64 Blood Pressure Location Rt brachial Position Sitting Pulse 107 H Pulse Source Pulse Oximeter Pulse Oximetry (%) 96 Oxygen Delivery Method Room Air Intake Visit Reasons: 6mon follow-up w/labs-CONF Night Warehouse Manager Required: No Accompanied by: Daughter Allergies EMELIA Inhibitors Adverse Reaction (Severe, Verified 04/27/25 16:00) Angioedema Medication List - Last Reconciled 04/27/25 by Arsen Villegas MD acetaminophen (Tylenol Extra Strength) 650 mg PO Q6H amlodipine 5 mg PO DAILY biotin 5 mg PO DAILY cinacalcet 30 mg PO Q OTHER DAY cyanocobalamin (vitamin B-12) (Vitamin B-12) 1,000 mcg PO DAILY furosemide 20 mg PO DAILY levothyroxine 75 mcg PO DAILY@0600 magnesium 1,250 mg PO DAILY magnesium oxide 500 mg PO BID metformin 500 mg PO DAILY@1700 nystatin (Nystop) 1 appl topical BID PRN omeprazole 40 mg PO DAILY prednisone 40 mg PO PRN psyllium husk (Metamucil) 3 tbsp PO DAILY rosuvastatin 5 mg PO DAILY spironolactone 25 mg PO DAILY HPI Comments Details: Elderly woman with a history of CKD in a setting of longstanding hypertension and diabetes mellitus. She is presenting for follow-up after two recent hospitalizations. In late March, she was hospitalized for acute decompensated heart failure, experiencing dyspnea and fluid overload. This occurred after a scheduled pacemaker upgrade, intended to add a third lead due to a low ejection fraction of 15-20%, was canceled twice. The pacemaker upgrade was completed during the hospitalization on the day before , and she was discharged the Saturday after. Following the procedure, she experienced a persistent wishy feeling with lightheadedness. Last Saturday, a telehealth alert for an irregular heart rate prompted a home PT evaluation, which led to a second hospitalization. During this admission, a [employer] admissions representative determined that a rapid response feature on the pacemaker was inappropriately activated; turning it off resolved her symptoms. She was discharged from the hospital today. The heart failure episode caused an acute kidney injury, with her creatinine rising to 1.65 mg/dL. As of yesterday, her creatinine had improved to 1.3 mg/dL. Her heart function has reportedly improved since the pacemaker upgrade, with ejection fraction increasing to 35%. Her pertinent medical history includes bilateral renal cysts, which have been stable on multiple recent scans, with a July [address]23 CT noting a 2.6 cm right cyst and a 2.1 cm left cyst. She also has a known pulmonary nodule that has grown on recent imaging, with a PET scan scheduled for next week. She reports a history of type 2 diabetes with an A1c consistently below 7 for years. She also has a history of hypercalcemia, managed with Sensipar every other day, with a stable calcium of 10.9 mg/dL. She takes 1000 mg of magnesium and plans to have her levels checked soon, as her last level was 1.9 mg/dL. Results - Labs: - Creatinine: Peaked at 1.65 mg/dL, improved to 1.3 mg/dL as of yesterday. - Hemoglobin A1c: Below 7.0 for years. - Calcium: Stable at 10.9 mg/dL. - Magnesium: 1.9 mg/dL on recent admission. - Imaging: - CT Scan (July 2023): Multiple bilateral cysts, right 2.6 cm, left 2.1 cm. - Recent CT/Ultrasound: Renal cysts are stable in size. - Recent imaging: Growth of a known lung nodule. - Tests and Diagnostics: - Echocardiogram: Ejection fraction improved to 35% from a baseline of 15-20%. - Pacemaker Interrogation: Revealed an active rapid response feature, which was turned off. - EKG: Reportedly normal during recent hospitalization. [facility] Medical History (Updated 11/09/24 @ 14:26 by Arsen Villegas MD) Pacemaker at end of battery life Elevated lipase Mass of left lung AV block Type 2 diabetes mellitus with unspecified complications Pacemaker Hypercholesteremia GERD (gastroesophageal reflux disease) Hypothyroid Hypertension Surgical History History of tonsillectomy H/O total knee replacement H/O: hysterectomy Hx of cholecystectomy Family History Mother HTN (hypertension) Heart attack Father No problems noted. Maternal Grandmother Breast cancer Social History Household Members: Spouse Housing: House Do you presently have visiting nurse or other home services: No Alcohol intake: current Alcohol intake frequency: holidays/special occasions only Patient Tobacco Use Status: Never used Tobacco Advance Directives Date on File: 08/13/23 service: No Physical Exam Exam Exam: Physical Exam General: Awake. Comfortable. HENT: Neck supple. Mucosa moist. Pulmonary: Lungs aeration equal. No rales. Cardiology: Heart S1-S2 heard. No gallop. Heart rate irregular. Pacemaker in place with third lead. Heart function improved to 35% from 15-20%. Abdomen: Soft. Non tender. Bowel sounds normal. Neurologic: No involuntary movements. No myoclonus. Extremities: No edema. No rash. Vital Signs: Last Vital Signs Pulse 107 H 04/27/25 15:53 BP 118/64 04/27/25 15:53 Pulse Ox 96 04/27/25 15:53 Oxygen Delivery Method Room Air 04/27/25 15:53 BMI result Body Mass Index 34.6 Results Reviewed Nephrology Results: Hgb, (12.0-16.0) 9.6 g/dl L 04/22/25 WBC, (4.8-10.8) 13.1 X10*3/uL H 04/22/25 Plt Count, (160-400) 259 X10*3/uL 04/22/25 Sodium, (135-145) 138 mmol/L 04/22/25 Potassium, (3.3-5.1) 3.9 mmol/L 04/22/25 Chloride, (96-108) 103 mmol/L 04/22/25 Carbon Dioxide, (22-29) 25 mmol/L 04/22/25 BUN, (9-16) 21 mg/dL H 04/22/25 Creatinine, (0.5-1.4) 1.65 mg/dL H 04/22/25 Calcium, (8.4-10.2) 10.9 mg/dL H 04/22/25 PTH Intact, (8.7-77.1) 281.2 pg/mL H 04/22/25 Assessment & Plan Assessment & Plan (1) Hyperparathyroidism: Code(s): E21.3 - Hyperparathyroidism, unspecified Category: Medical Plan: Parathryoid scan shows adenoma Persistent Hypercalcemia and hypomagnesemia while on Cinacalcet Seen by Dr. Avila For now she will stay on cinacalcet every other day along with magnesium supplementation. Follow up with Resident Program Specialist (2) CKD (chronic kidney disease): Code(s): N18.9 - Chronic kidney disease, unspecified Category: Medical Plan: CKD 3 Stable (3) Essential hypertension: Code(s): I10 - Essential (primary) hypertension Category: Medical Plan: Blood pressure is well controlled No changes were made to medications low-salt diet . (4) Anemia: Code(s): D64.9 - Anemia, unspecified Category: Medical Plan: Multifactorial Most likely due to CKD r/o Iron Deficiency Plan Plan 1. Congestive Heart Failure - The patient is recovering from an acute decompensation and reports her ejection fraction has improved to 35% after a pacemaker upgrade. - Approved starting Farxiga as recommended by the hospitalist, noting it has both cardiac and renal benefits. - Approved starting metoprolol from a renal standpoint. 2. Acute Kidney Injury - The acute kidney injury, with creatinine peaking at 1.65 mg/dL, was attributed to heart failure and diuresis with Lasix. - Kidney function has improved, with creatinine at 1.3 mg/dL yesterday, and is expected to return to her baseline of 1.0-1.1 mg/dL. - Recommended checking magnesium level, as Lasix can cause depletion. 3. Type 2 Diabetes Mellitus - The patient will discontinue metformin. - She will start Farxiga, and her blood sugar will need to be monitored by her primary care provider or tripe scraper. 4. Hypertension - The patient's blood pressure is well-controlled. - The hospitalist recommended reducing amlodipine to 5 mg from 10 mg. - She was advised to continue monitoring her blood pressure at home and to keep the systolic reading above 100 mmHg. 5. Bilateral Renal Cysts - Bilateral renal cysts were noted to be stable on recent imaging compared to prior scans. - Plan is for continued observation with no active intervention at this time. - The upcoming PET scan for her lung nodule will also provide further visualization of the kidneys. 6. Pulmonary Nodule - The patient has a known pulmonary nodule that has grown on recent imaging. - She is scheduled for a PET scan next week as ordered by her cafeteria or lunchroom checker, Dr. Tamez. - Management will be deferred to her cafeteria or lunchroom checker pending the PET scan results. 7. Hypercalcemia - Her calcium level is stable at 10.9 mg/dL. - She will continue taking Sensipar every other day and continue monitoring. 8. Follow-Up - Return to the clinic in 6 months for follow-up. - The patient was advised to call for an earlier appointment if any issues arise. Coding Level of Care Code Est Pt Level 4 (02370) Diagnoses Hyperparathyroidism E21.3 CKD (chronic kidney disease) N18.9 Essential hypertension I10 Anemia D64.9
[2025-04-27 15:53] VITALS: BP 118/64; PULSE 107; O2SAT 96; BMI 34.6
--- OUTSIDE RECORDS SUMMARY | 2025-04-27 19:29 | XMS_ITS | Encounter Summary ---
Author Organization [facility] Address [address] [facility] [address] [place] [address] Phone Care Team Providers Care Price Lister Name Role Phone Carmita Dietz NP Primary Care Provid er Encounter Details Date Type Department Care Team (Late st Contact Info) Description 12/25/2023 Procedure Pass [facility] [address] [place] [address] Social History Tobacco Use Types Packs/Day Years [...] on filedocumented in this encounter Care Teams Price Lister Relationship Specialty Start Date End Date Carmita Dietz NP [address] [place] [address] PCP - General Nurse Practitioner 08/12/23 documented as of this encounter Additional Source Comments The information contained in this document represents components of the legal health record. It is not the complete legal health record.[facility]
--- OUTSIDE RECORDS SUMMARY | 2025-04-27 19:29 | XMS_ITS | Encounter Summary ---
Author Organization [facility] Address [address] [facility] [address] [place] [address] Phone Care Team Providers Care Grain Drier Name Role Phone Archie Finch MD Primary Care Provider + [phone] Carmita Dietz NP Primary Care Provid er Encounter Details Date Type Department Care Team (Late st Contact Info) Description 04/14/2020 Procedure Pass [facility] [address] [place] [address] Social History Tobacco Use Types Packs/Day Years [...] on filedocumented in this encounter Care Teams Grain Drier Relationship Specialty Start Date End Date Archie Finch MD [address] [place] [address] [place] [address] PCP - General Internal Medicine 07/08/19 08/11/23 Carmita Dietz, NGUYEN [address] [facility] [address] [place] [address] PCP - General Nurse Practitioner 08/12/23 documented as of this encounter Additional Source Comments The information contained in this document represents components of the legal health record. It is not the complete legal health record.[facility]
--- OUTSIDE RECORDS SUMMARY | 2025-04-27 19:29 | XMS_ITS | Encounter Summary ---
Author Organization [facility] Address [address] [facility] [address] [place] [address] Phone Care Team Providers Care Message And Delivery Service Pricer Name Role Phone Damien Mcgrath MD Primary Care Provider Archie Flores MD Primary Care Provider [phone] Carmita Dietz NP Primary Care Provid er Encounter Details Date Type Department Care Team (Latest Contact Info) Description 10/29/2017 Transcribe Orders [facility] [address] [place] [address] Maryuri Torres PA [address] [place] [address] [address] Hypercalcemia (Primary Dx) Social History Tobacco Use [...] 8:37 AM EDT) COLLECTION DATA 24 HOUR [facility] TOTAL VOLUME 1,[address] [facility] 10/29/2017 8:37 AM EDT 10/29/2017 8:40 AM EDT us Maryuri MARSHALL URINE ORDERABLES Mae l Result Performing Organization Address [facility]/ZIP Co de Phone Number [address] [address] * Phosphorus, 24 hr urine (10/29/2017 8:37 AM EDT) URINE PHOSPHORUS 50.8 mg/dL [facility] PHOSPHORUS OUTPUT 533.4 400 - 1,300 mg/total output [facility] Urine (Urine) 10/29/2017 8:3 7 AM EDT 10/29/2017 8:40 AM EDT us Maryuri MARSHALL URINE ORDERABLES Mae l Result [address] [address] * Creatinine, 24 hr urine (10/29/2017 8:37 AM EDT) URINE CREATININE 96 mg/dL [facility] CREATININE OUTPUT 1,008 600 - 1,800 mg/total output [facility] Urine (Urine) 10/29/2017 8:3 7 AM EDT 10/29/2017 8:40 AM EDT us Maryuri MARSHALL LAB URINE ORDERABLES Final Result Performing Organization Address City/[facility]/ZIP Co de Phone Number [address] [address] * (ABNORMAL) Calcium, 24 hour urine (10/29/2017 8:37 AM EDT) URINE CALCIUM 3.9 mg/dL [facility] CALCIUM OUTPUT 41(L) 100 - 300 mg/total output [facility] Urine (Urine) 10/29/2017 8: 37 AM EDT 10/29/2017 8:40 AM EDT us Maryuri MARSHALL URINE ORDERABLES Mae l Result Performing Organization Address [facility] Co de Phone Number [address] [address] * (ABNORMAL) Renal panel (10/29/2017 8:37 AM EDT) SODIUM 144 133 - 146 mmol/L [facility] POTASSIUM 4.9 3.3 - 5.1 mmol/L [facility] CHLORIDE 104 96 - 108 mmol/L [facility] CO2 26 21 - 35 mmol/L [facility] GLUCOSE 135(H) 70 - 99 mg/dL [facility] BUN 20(H) 6 - 19 mg/dL [facility] CREATININE 1.20 0.5 - 1.5 mg/dL [facility] CALCIUM 10.6(H) 8.4 - 10.3 mg/dL [facility] PHOSPHORUS 3.2 2.7 - 4.5 mg/dL [facility] ALBUMIN 3.9 3.9 - 4.8 g/dL [facility] EGFR 45(L) >59 mL/min/1.[address] [facility] Comment:If patient is black, multiply result by 1.159. Estimated glomerular filtration rate calculated using the CKD-EPI equation. ANION GAP 19 10 - 20 mmol/L [facility] Blood 10/29/2017 8:37 AM EDT 10/29/2017 8:39 AM EDT us Maryuri Luna Brian MARSHALL LAB BLOOD BKR ORDERAB LES Final Result [facility] [address], [place] [id number] documented in this encounter Visit Diagnoses Diagnosis Hypercalcemia- Primary documented in this encounter Care Teams Message And Delivery Service Pricer Relationship Specialty Start Date End Date Damien Mcgrath MD PCP - General 02/28/17 07/07/19 Archie Finch MD [address] [place] [address] PCP - General Internal Medicine 07/08/19 08/11/23 Carmita Dietz NP [address] [place] [address] PCP - General Nurse Practitioner 08/12/23 documented as of this encounter Additional Source Comments The information contained in this document represents components of the legal health record. It is not the complete legal health record.[facility]
--- OUTSIDE RECORDS SUMMARY | 2025-04-27 19:29 | XMS_ITS | Patient Health Record ---
Author Organization [facility] Address [address] [place] [address] Care Team Providers Care Medical Reception Name Role Phone Carmita Dietz N.P Primary Care Provider Un available Cash Mercado Unavailable [phone] Allergies Allergen (clinical drug ingredient) Drug/Non Drug Allergy documented on EMR Reaction Allergy Type Onset Date Status angiotensin-converting enzyme inhibitor (FN) EMELIA Inhibitors Unknown Drug Allergy Acti ve Results Component Value Reference Range Flag Notes Ferritin Reviewed date:03/10/2025 01:34:43 AM Interpretation: Performing Lab:[facility], [address] [place] [phone] Notes/Report: Ferritin 17 10-250 ng/mL N Vitamin B12 and Folate Reviewed date:03/10/2025 01:34:33 AM Interpretation: Performing Lab:[facility], [address] [place] [phone] Notes/Report: Vitamin B12 831 200-900 pg/mL N NORMAL 200-900 PG/ML INDETERMINATE 160-199 PG/ML DEFICIENT < 160 PG/ML Folate 6.0 > or = 4.0 ng/mL Reference Values: > or = 4.0 ng/mL < 4.0 ng/mL suggests folate deficiency Methotrexate, aminopterin and folinic acid (leucovorin) are chemotherapeutic agents whose molecular structures are similar to folate; therefore, the Mortgage [employer] folate assay cannot be used for patients using these drugs. Transglutaminase Ab IgG Reviewed date:03/15/2025 11:22:01 PM Interpretation: Performing Lab:[facility], [address] [place] [phone] Notes/Report: Transglutaminase Ab IgG <1.0 N Value Interpretation ----- <15.0 Antibody not detected > or = 15.0 Antibody detected THIS TEST WAS PERFORMED AT: [facility] [address] [place] [phone] MEDHAT GAINES MD Transglutaminase IgA Reviewed date:03/15/2025 11:22:12 PM Interpretation: Performing Lab:[address] [phone] Notes/Report: Transglutaminase IgA <1.0 N Value Interpretation ----- <15.0 Antibody not detected > or = 15.0 Antibody detected THIS TEST WAS PERFORMED AT: [facility] [address] [place] [phone] MEDHAT GAINES MD Gliadin Ab Panel Reviewed date:03/15/2025 11:22:28 PM Interpretation: Performing Lab:[facility], [address] [place] [phone] Notes/Report: Gliadin Deamidated IgA Ab <1.0 N Value Interpretation ----- <15.0 Antibody not detected > or = 15.0 Antibody detected Gliadin Deamidated IgG Ab <1.0 N Value Interpretation ----- <15.0 Antibody not detected > or = 15.0 Antibody detected THIS TEST WAS PERFORMED AT: [facility] [address] [place] [phone] MEDHAT GAINES MD Endomysial IgA rflx Titer Reviewed date:03/15/2025 06:07:01 PM Interpretation: Performing Lab:[address] [phone] Notes/Report: Endomysial IgA Antibody Negative Negative THIS TEST WAS PERFORMED AT: [facility] [address] [place] [address] JOSE C DOWNS MD,PHD Endomysial Titer TNP Complete Blood Count Auto Di ff Reviewed date:03/30/2025 10:01:01 PM Interpretation: Performing Lab:[facility], [address] [place] [phone] Notes/Report: White Blood Count 9.7 4.8-10.8 X10*3/uL [...] Panel Reviewed date:03/09/2025 05:57:20 PM Interpretation: Performing Lab:[facility], [address] [place] [phone] Notes/Report: Bilirubin Total 0.4 0.0-1.0 mg/dL N Bilirubin Direct 0.1 0.0-0.5 mg/dL N Aspartate Amino Transferase 26 5-31 U/L N Alanine Aminotransferase 14 0-31 U/L N Total Protein 7.5 6.5-8.0 g/dL N Albumin Level 4.6 3.5-5.0 g/dL N Alkaline Phosphatase 81 39-117 U/L N Basic Metabolic Panel Reviewed date:03/10/2025 01:34:23 AM Interpretation: Performing Lab:[facility], [address] [place] [phone] Notes/Report: Sodium 142 135-145 mmol/L N Potassium [...] PROFILE Reviewed date:03/30/2025 10:00:21 PM Interpretation: Performing Lab:[address] [phone] Notes/Report: Iron 45 30-160 mcg/dL N Total [...] Capsule as directed Orally Active Biotin Maximum 35475 MCG Tablet Disintegrating as directed Orally Active [...] Info Options Details Miscellaneous: Marital status: 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 Section Notes: Nonsmoker; no sig alcohol Nonsmoker; no sig alcohol Nonsmoker; no sig alcohol Nonsmoker; no sig alcohol Nonsmoker; no sig alcohol Problems Problem Type SNOMED Code ICD Code Onset Dates Problem Status W/U Status Risk Notes Problem Epigastric pain (40887161) Epigastric pain (R10.13) Active confirmed Problem Screening for malignant neoplasm of colon (601764444) Encounter for screening for malignant neoplasm of colon (Z12.11) Active confirmed Problem History of adenomatous polyp of colon (853609509) History of adenomatous polyp of colon (Z86.010) Active confirmed Problem Ulcer of esophagus (69302127) Ulcer of esophagus without bleeding (K22.10) Active confirmed Problem Diverticular disease of colon (705354988) Diverticulosis of large intestine without perforation or abscess without bleeding (K57.30) Active confirmed Problem Nausea (072759076) Nausea (R11.0) Active confir med Problem Early satiety (521597670) Early satiety (R68.81) Active confirmed Problem Iron deficiency anemia (11275861) Iron deficiency anemia (D50.9) Active confirmed Problem Gastroesophageal reflux disease without esophagitis (921970271) Gastroesophageal reflux disease without esophagitis (K21.9) Active confirmed Problem Hiatal hernia (55100140) Hiatal hernia (K44.9) Active confirmed Problem Chronic gastritis (9737575) Gastritis, chronic (K29.50) Active confirmed Problem Computed tomography result abnormal (184518203) Abnormal CT scan, colon (R93.3) Active confirmed Problem Erosive esophagitis (86160680) Erosive esophagitis (K22.10) Active confirmed Problem Irregular bowel habits (870379015) Irregular bowel habits (R19.8) Active confirmed Problem Incontinence of feces (25394383) Incontinence of feces, unspecified fecal incontinence type (R15.9) Active confirmed Problem Diaphragmatic hernia (87176262) Hernia, hiatal (K44.9) Active confirmed Problem Gastroesophageal reflux disease (disorder) (209248193) Chronic GERD (K21.9) Active confirmed Vital Signs Temperature 97.2 degrees Fahrenheit 03/09/2025 Blood pressure diastolic 01 mm Hg 03/09/2025 Height 62.50 in 03/09/2025 Blood pressure systolic 001 mm Hg 03/09/2025 Weight 210.2 lbs 03/09/2025 BMI 37.83 kg/m2 03/09/2025 Encounters Encounter Location Date Provider Diagnosis [facility] [address] [place] [phone] 03/09/2025 Cash Mercado Nausea R11.0 ; Iron deficiency anemia D50.9 and Early satiety R68.81 [facility] [address] [place] [phone] 03/30/2025 Cash Mercado Assessments Encounter Date Diagnosis [...] Provider Name:Cash Mercado , 06/01/2025 03:00:00 PM, [address] [place] [address], [address], [place], [address], Insurance Providers Payer Name Payer Address Payer Phone Subscriber Number Group Number Insured Name Patient Relationship to Insured Coverage Start Date Coverage End Date [facility] [address] [place] [phone] [id number] ANNETTA DE LUNA Self - patient is the insured Medical (General) History Medical History History ICD Code NIDDM Hyperlipidemia Hypertension Pacemaker-sees Dr. Patel Arthritis Denies [place],CVA,Lung disease,renal disease Urinary incontinence-mild [...]
--- OUTSIDE RECORDS SUMMARY | 2025-04-27 19:29 | XMS_ITS | Encounter Summary ---
Author Organization [facility] Address [address] [facility] [address] [place] [address] Phone Care Team Providers Care Field Service Analyst Name Role Phone Damien Mcgrath MD Primary Care Provider Archie Flores MD Primary Care Provider [phone] Carmita Dietz NP Primary Care Provid er Encounter Details Date Type Department Care Team (Late st Contact Info) Description 03/02/2017 Ancillary Orders [facility] [address] [place] [address] Kash Sarabia MD [address] [place] [address] [place] [address] [email or web address] Social History Tobacco Use Types Packs/Day Years [...] on filedocumented in this encounter Care Teams Field Service Analyst Relationship Specialty Start Date End Date Damien Mcgrath MD PCP - General 02/28/17 07/07/19 Archie Finch MD [address] [facility] [address] [place] [address] PCP - General Internal Medicine 07/08/19 08/11/23 Carmita Dietz NP [address] [place] [address] PCP - General Nurse Practitioner 08/12/23 documented as of this encounter Additional Source Comments The information contained in this document represents components of the legal health record. It is not the complete legal health record.[facility]
--- OUTSIDE RECORDS SUMMARY | 2025-04-27 19:29 | XMS_ITS | Encounter Summary ---
Author Organization [facility] Address [address] [facility] [address] [place] [address] Phone Care Team Providers Care Bag Adjuster Name Role Phone Archie Finch MD Primary Care Provider + -[phone] Carmita Dietz NP Primary Care Provid er Encounter Details Date Type Department Care Team (Late st Contact Info) Description 03/12/2020 Procedure Pass Burton Yue Non-Invasive Cardiology [address] [place] [address] Social History Tobacco Use Types Packs/Day Years [...] on filedocumented in this encounter Care Teams Bag Adjuster Relationship Specialty Start Date End Date Archie Finch MD [address] [place] [address] [place] [address] PCP - General Internal Medicine 07/08/19 08/11/23 Carmita Dietz, NGUYEN [address] [facility] [address] [place] [address] PCP - General Nurse Practitioner 08/12/23 documented as of this encounter Additional Source Comments The information contained in this document represents components of the legal health record. It is not the complete legal health record.[facility]
--- OUTSIDE RECORDS SUMMARY | 2025-04-27 19:29 | XMS_ITS | Data Portability ---
Author Organization [place] - [facility], Allergy Address [address] [address] Care Team Providers Care C Consultant Name Role Phone JACOBO ABAD Primary Care [...] mupirocin 2 % topical ointment 2024 025 [facility] #[id number], [address] [place], [address], 5 11:51:39 Patient TargetsNo targets recorded. Patient InstructionsNo instructions recorded. Reason for Referral None Reported. Problems Name Problem SNOMED Code Status Onset Date Resolution Date Notes Provider Name and Address Organization Details Recorded Time Migraine 79375669 Active 2017 Other migraine , not intracta ble, without status migraino kervin; Note: Date Diagnose d: 8 10:47 AM (G43.809 ) Not Available [facility] 4 03:07:58 Follow-u p visit Active 2017 Encounte r for follow-u p examinat ion after complete d treatmen t for conditio ns other than malignan t neoplasm ; Note: Date Diagnose d: 04/21/20 18 2:55 PM (Z09) Not Available [facility] 4 03:08:00 Chronic sphenoid al sinusiti s 10860650 Completed 201712/13/2023 Chronic sphenoid al sinusiti s; Note: Date Diagnose d: 04/28/20 18 8:26 PM (J32.3) Chroni c sphenoid al sinusiti s; Note: Date Diagnose d: 8 11:01 AM (J32.3) ; Start Date : 02/11/20 18 Not Available [facility] 4 03:07:58 Headache 28871778 Active 2019 Facial pain NOS; Note: Date Diagnose d: 02/25/20 20 1:22 PM (R51) Facial pain NOS; Note: Date Diagnose d: 8 10:47 AM (R51) ; Start Date : 02/11/20 18 Not Available [facility] 4 03:07:59 Ulcerati ve rhinitis 27116170 Active 2019 Nasal mucositi s (ulcerat adriana); Note: Date Diagnose d: 0 1:36 PM (J34.81) Not Available [facility] 4 03:08:00 Angioede ma 98667802 Active 2023 Angioneu rotic edema, initial encounte r; Note: Date Diagnose d: 4 9:06 AM (T78.3XX A) Not Available [facility] 4 03:08:00 Gastroes ophageal reflux disease 092912363 Active 2024 SANDIE WILLIAM MD [facility] [place],RAJINDER [facility], [facility] [place], [address] , [facility] 5 08:18:24 Obstruct adriana sleep apnea syndrome 94111312 Active 2024 SANDIE WILLIAM MD [address] [facility] [address],RA[address], [facility] [place], [address] , [facility] 5 08:18:33 Problem Notes None recorded. Procedures Surgical History Date Name Laterality Status Provider Name and Address Organization Details Recorded Time 06/12/19 Fiberoptic Laryngoscopy (Comprehensive) completed SANDIE WILLIAM MD 100 [facility],[place] [address], [place], [address], [facility] [...] layed release 06/12 completed Medicati on ID: [id number] D uration Value: 90 Brand Name: pantopra zole Sen d Method: E-Prescr ibed Sub s Allowed: subs OK Speci al Instruct ion: TAKE 1 TABLET BY ORAL ROUTE DAILY Me dication GenericN radha: pantopra zole Not Available Not Available Not Available pravastat in 20 mg tablet 2017 active Medicati on ID: [id number] D uration Value: 90 Brand Name: pravasta [...] by mouth 06/12 completed Medicati on ID: [id number] D uration Value: 7 Prescri bed By Name: Sandie weiss MD Brand Name: cefuroxi me axetil S end Method: E-Prescr ibed Sub s Allowed: subs OK Medic ationGen ericName : cefuroxi me axetil Not Available Not Available Not Available amoxicill in 875 mg-potass ium clavulana te 125 mg tablet 05/09 completed Medicati on ID: [id number] D uration Value: 10 Reason: () Brand [...] Available Advil 04/21 completed Medicati on ID: [id number] R sergio: () Brand Name: advil Se nd Method: E-Prescr ibed Sub s Allowed: subs OK Medic ationGen ericName : advil Not Available Not Available Not Available Tylenol 06/12 completed Medicati on ID: [id number] B rand Name: tylenol Send Method: E-Prescr ibed Sub s Allowed: subs OK Medic ationGen ericName : tylenol Not Available Not Available Not Available amlodipin e 10 mg-benaze pril 40 mg capsule 06/12 completed Medicati on ID: [id number] D uration Value: 90 Brand Name: amlodipi [...] Updated DateTime 06/12/2024 157.48 cm 36.6 kg/m2 62055.47 g Georgette Lynn [place] - Ear Nose [...] ICD10 Code Diagnosis IMO Codes Diagnosis Note 14631 SANDIE WILLIAM MD [facility] [address] [address] 06/12/2024 11:19:33 06/12/2024 11:55:40 Ulcerative rhinitis 60684288 J34.81 Gastroesop hageal reflux disease 235718669 K21.00 Obstructiv e sleep apnea syndrome 99234876 G47.33 Health Concerns Section Related Observation LastModified by Organization Detai ls LastModified Time None Recorded Concern Status LastModified by Organization Details LastModified Time None Recorded Advance Directives Directive None Recorded Payers Insurance Date Sequence Insurance Name Policy Number Policy Alra Covered Member ID Lara Member ID Guarantor Name 06/12/2024 1 [facility] [id number] Annetta E E McElwey [id number] Annetta E McElwey 06/15/2024 1 [facility] (MEDICARE REPLACEMENT /ADVANTAGE - PPO) [id number] Annetta E E McElwey [id number] Annetta E McElwey Notes Date Note Type Note Provider Name and Address Organization Details Recorded Time 06/12/2024 text/html ROS as noted in the HPI 78 yo F presents for evaluation of her throatangioedema [facility] new FAINA CPAP, right side of nose gets crusting, uses AYR saline and gel esophagitis and gastritis in September, on omeprazole gets scratchy, this week is a little better SANDIE WILLIAM MD [address] [place] [address], [address], [facility] - [facility] 06/13/2024 08:20:50 OBGyn Episode No OBEpisode recorded.
--- OUTSIDE RECORDS SUMMARY | 2025-04-27 19:29 | XMS_ITS | Clinical Summary ---
Author Organization [facility] ity Address [address] [place] [address] Care Team Providers Care Slate Roofer Helper Name Role Phone Unavailable Primary Care Provider [...]
--- OUTSIDE RECORDS SUMMARY | 2025-04-27 19:29 | XMS_ITS | Encounter Summary ---
Author Organization [facility] Address [address] [facility] [address] [place] [address] Phone Care Team Providers Care Clerk To Justice Name Role Phone Damien Mcgrath MD Primary Care Provider Archie Flores MD Primary Care Provider [phone] Carmita Dietz NP Primary Care Provid er Encounter Details Date Type Department Care Team (Late st Contact Info) Description 09/30/2018 Ancillary Orders Josephine Turner Non-Invasive Cardiology [address] [place] [address] Kash Sarabia MD [address] [place] [address] [email or web address] Heart block Social History Tobacco Use Types [...] disorder documented in this encounter Care Teams Clerk To Justice Relationship Specialty Start Date End Date Damien Mcgrath MD PCP - General 02/28/17 07/07/19 Archie Finch MD [address] [address] PCP - General Internal Medicine 07/08/19 08/11/23 Carmita Dietz NP [address] [place] [address] PCP - General Nurse Practitioner 08/12/23 documented as of this encounter Additional Source Comments The information contained in this document represents components of the legal health record. It is not the complete legal health record.[facility]
--- OUTSIDE RECORDS SUMMARY | 2025-04-27 19:29 | XMS_ITS | Encounter Summary ---
Author Organization [facility] Address [address] [place] [address] Phone Care Team Providers Care Quality Assurance Monitor Chassis Name Role Phone Damien Mcgrath MD Primary Care Provider Archie Flores MD Primary Care Provider [phone] Carmita Dietz NP Primary Care Provid er Encounter Details Date Type Department Care Team (Latest Contact Info) Description 03/02/2017 Ancillary Orders [facility] [address] [facility] 3rd Floor, [address] [place] [address] Kash Sarabia MD [address] [place] [address] [email or web address] Diagnosis unknown Social History Tobacco Use Types [...] * DEVICE CHECK: PPM REMOTE INTERROGATION WITH TRUCK SHOP SUPERVISOR REVIEW (04/15/2018 10:27 AM EST) Narrative Kash Canas, - 04/18/2018 9:58 AM EST Reason for appointment: Remote pacemaker interrogation HPI: Routine 3 month remote pacemaker interrogation. No device related complaints. Indication for device: CHB Examination: Device type: Pacemaker Tester Sound: Medtronic Mode: DDD LRL/UPL: 60/130 bpm Mode [...] unknown documented in this encounter Care Teams Quality Assurance Monitor Chassis Relationship Specialty Start Date End Date Damien Mcgrath MD PCP - General 02/28/17 07/07/19 Archie Finch MD [address] [place] [address] PCP - General Internal Medicine 07/08/19 08/11/23 Carmita Dietz NP [address] [place] [address] PCP - General Nurse Practitioner 08/12/23 documented as of this encounter Additional Source Comments The information contained in this document represents components of the legal health record. It is not the complete legal health record.[facility]
--- OUTSIDE RECORDS SUMMARY | 2025-04-27 19:29 | XMS_ITS | Encounter Summary ---
Author Organization [facility] Address [address] [facility] [address] [place] [address] Phone Care Team Providers Care Sponge Diver Name Role Phone Carmita Dietz NP Primary Care Provid er Encounter Details Date Type Department Care Team (Late st Contact Info) Description 12/16/2023 Procedure Pass Burton Tate Non-Invasive Cardiology [address] [place] [address] Social History Tobacco Use Types Packs/Day Years [...] on filedocumented in this encounter Care Teams Sponge Diver Relationship Specialty Start Date End Date Carmita Dietz NP [address] [place] [address] PCP - General Nurse Practitioner 08/12/23 documented as of this encounter Additional Source Comments The information contained in this document represents components of the legal health record. It is not the complete legal health record.[facility]
--- OUTSIDE RECORDS SUMMARY | 2025-04-27 19:29 | XMS_ITS | Encounter Summary ---
Author Organization [facility] Address [address] [facility] [address] [place] [address] Phone Care Team Providers Care Public Services Assistant Name Role Phone Damien Mcgrath MD Primary Care Provider Archie Flores MD Primary Care Provider [phone] Carmita Dietz NP Primary Care Provid er Encounter Details Date Type Department Care Team (Late st Contact Info) Description 09/30/2018 Ancillary Orders [facility] [address] [place] [address] Kash Sarabia MD [address] [place] [address] [place] [address] [email or web address] Social History Tobacco Use Types Packs/Day [...] on filedocumented in this encounter Care Teams Public Services Assistant Relationship Specialty Start Date End Date Damien Mcgrath MD PCP - General 02/28/17 07/07/19 Archie Finch MD [address] [facility] [address] [place] [address] PCP - General Internal Medicine 07/08/19 08/11/23 Carmita Dietz NP [address] [place] [address] PCP - General Nurse Practitioner 08/12/23 documented as of this encounter Additional Source Comments The information contained in this document represents components of the legal health record. It is not the complete legal health record.[facility]
--- OUTSIDE RECORDS SUMMARY | 2025-04-27 19:29 | XMS_ITS | Clinical Summary ---
Author Organization [facility] Address [address] [address] Phone Care Team Providers Care Nitroglycerin Separator Operator Name Role Phone Carmita Dietz NP [...] this topic Medical Devices Implanted Type Area Bus Person Dishwasher Device Identifier Shelf Expiration Date Model / Serial / Lot Medtronic Pacemaker Device Pacemaker Hammett Xt Dr Chamberlain - [id number] Implanted:Qty : 1 on 12/25/2023 by Grover Infante MD at [facility] Pacemaker Left: Chest [facility] [facility] [id number] 05/26/2025 [id number] / [id number] / Procedures Procedure Name Priority Date/Time [...] Creatinine, Urine 92 mg/dL 04/20/2025 12:19 PM [facility] Microalbumin, Urine <1.2 <2.0 mg/dL 04/20/2025 12:19 PM [facility] MALB/CRE 04/20/2025 12:19 PM [facility] Comment:Unable to calculate. Urine (Urine, Voided) Non-Blood Collection / Unknown 04/20/2025 8:30 AM EST 04/20/2025 10:11 AM EST [facility] - 04/20/2025 12:19 PM EST The reference interval(s) are unavailable for this specimen type. Comparison of this result with other laboratory results, such as the concentration in the blood, serum, or plasma, is recommended. The test result should be integrated into the clinical context for interpretation. Jamaal Ham MD LAB URINE ORDERABLES Final R esult [address] [address] * (ABNORMAL) Comprehensive Metabolic Panel (CMP) (04/16/2025 3:21 PM EST) Sodium 137 136 - 145 mmol/L 04/16/2025 8:43 PM [facility] Potassium 4.1 3.4 - 5.1 mmol/L 04/16/2025 8:43 PM [facility] Chloride 96(L) 98 - 107 mmol/L 04/16/2025 8:43 PM [facility] CO2 25 20 - 31 mmol/L 04/16/2025 8:43 PM [facility] BUN 25(H) 6 - 23 mg/dL 04/16/2025 8:43 PM [facility] Creatinine 1.70(H) 0.50 - 1.00 mg/dL 04/16/2025 8:43 PM [facility] Glucose 140(H) 70 - 99 mg/dL 04/16/2025 8:43 PM [facility] Calcium 10.8(H) 8.5 - 10.5 mg/dL 04/16/2025 8:43 PM EST [facility] AST 17 <33 U/L 04/16/2025 8:43 PM [facility] ALT 6 <34 U/L 04/16/2025 8:43 PM [facility] Alkaline Phosphatase 79 40 - 130 U/L 04/16/2025 8:43 PM [facility] Bilirubin, Total 0.3 0.0 - 1.2 mg/dL 04/16/2025 8:43 PM [facility] Total Protein 7.1 6.4 - 8.3 g/dL 04/16/2025 8:43 PM [facility] Albumin 4.3 3.5 - 5.2 g/dL 04/16/2025 8:43 PM [facility] Globulin 2.8 1.9 - 4.1 g/dL 04/16/2025 8:43 PM [facility] eGFR 30(L) >59 mL/min/1.7 3m2 04/16/2025 8:43 PM [facility] Comment:Estimated glomerular filtration rate calculated using the CKD-EPI refit equation. Anion Gap 16 3 - 17 mmol/L 04/16/2025 8:43 PM [facility] Blood (Blood) Venipuncture / Unknown 04/16/2025 3:21 PM EST 04/16/2025 3:21 PM EST us Jamaal Ham MD LAB BLOOD BKR ORDERABLES Fin al Result [facility] [address] [place] [address] * (ABNORMAL) Beta-CrossLaps (B-Ctx) (04/16/2025 3:21 PM EST) Beta-CrossLaps (B-CTx), S 1272(H) pg/mL 04/20/2025 7:16 PM EST [facility] [employer] Comment: REFERENCE VALUE 148-967 (18-29 y) 150-635 (30-39 y) 131-670 (40-49 y) [phone] (50-59 y) 171-970 (60-69 y) 152-858 (>70 y) 136-689 (Premenopausal) [phone] (Postmenopausal) Flagging is based on the age-specific reference interval and not menopausal status. Blood (Blood) Venipuncture / Unknown 04/16/2025 3:21 PM EST 04/16/2025 3:21 PM EST Jamaal Ham MD LAB BLOOD BKR ORDERABLES Fin al Result CHENG (BEAKER) [facility] [address] [phone] * 25-OH Vitamin D (04/16/2025 3:21 PM EST) 25-OH Vitamin D, Total 36 20 - 50 ng/mL 04/16/2025 5:50 PM EST [facility] Comment: Severe deficiency: <10 ng/mL Mild to moderate deficiency: 10-19 ng/mL Optimum levels: 20-50 ng/mL Increased risk of hypercalciuria: 51-80 ng/mL Possible toxicity: >80 ng/mL Blood (Blood) Venipuncture / Unknown 04/16/2025 3:21 PM EST 04/16/2025 3:21 PM EST Jamaal Ham MD LAB BLOOD BKR ORDERABLES Fin al Result [facility] [address] [place] [address] * Thyroid Stimulating Hormone (TSH) (04/16/2025 3:21 PM EST) TSH 1.35 0.40 - 7.50 uIU/mL 04/16/2025 6:18 PM EST [facility] Blood (Blood) Venipuncture / Unknown 04/16/2025 3:21 PM EST 04/16/2025 3:21 PM EST Jamaal Ham MD LAB BLOOD BKR ORDERABLES Fin al Result Performing Organization Address [facility]/ZIP Co de Phone Number [address] [address] * T4, Free (04/16/2025 3:21 PM EST) T4, Free 1.7 0.9 - 1.8 ng/dL 04/16/2025 6:18 PM EST [facility] Blood (Blood) Venipuncture / Unknown 04/16/2025 3:21 PM EST 04/16/2025 3:21 PM EST Jamaal Ham MD LAB BLOOD BKR ORDERABLES Fin al Result Performing Organization Address [facility] Co de Phone Number [address] [address] * Phosphorus (04/16/2025 3:21 PM EST) Phosphorus 2.9 2.5 - 4.5 mg/dL 04/16/2025 8:43 PM EST [facility] Blood (Blood) Venipuncture / Unknown 04/16/2025 3:21 PM EST 04/16/2025 3:21 PM EST Jamaal Ham MD LAB BLOOD BKR ORDERABLES Fin al Result Performing Organization Address [facility] Co de Phone Number [address] [address] * (ABNORMAL) Parathyroid Hormone (PTH) (04/16/2025 3:21 PM EST) Parathyroid Hormone (PTH) 185(H) 15 - 65 pg/mL 04/16/2025 5:50 PM EST [facility] Blood (Blood) Venipuncture / Unknown 04/16/2025 3:21 PM EST 04/16/2025 3:21 PM EST Jamaal Ham MD LAB BLOOD BKR ORDERABLES Fin al Result Performing Organization Address [facility] Co de Phone Number [address] [address] * Magnesium (04/16/2025 3:21 PM EST) Magnesium 2.1 1.7 - 2.6 mg/dL 04/16/2025 8:43 PM [facility] Blood (Blood) Venipuncture / Unknown 04/16/2025 3:21 PM EST 04/16/2025 3:21 PM EST Jamaal Ham MD LAB BLOOD BKR ORDERABLES Fin al Result Performing Organization Address [facility] de Phone Number [address] [address] * (ABNORMAL) Hemoglobin A1c (04/16/2025 3:21 PM EST) Hemoglobin A1c 6.4(H) 4.3 - 5.6 % 04/16/2025 5:34 PM [facility] Calculated Mean Blood Glucose 137 mg/dL 04/16/2025 5:34 PM [facility] Comment:There is no establ[facility] normal range for the Estimated Average [...] ORDERABLES Fin al Result Performing Organization Address [facility] Co de Phone Number [address] [address] * (ABNORMAL) Lipid Panel (04/16/2025 3:21 PM EST) Cholesterol 134 <200 mg/dL 04/16/2025 8:43 PM [facility] HDL 48 >=40 mg/dL 04/16/2025 8:43 PM [facility] Calculated LDL 48 <130 mg/dL 04/16/2025 8:43 PM [facility] Comment:LDL is calculated us ing the Monsalve-NIH equation ([employer]YRA Cardiol. 2019September 10;5(5):540-548). Non-HDL Cholesterol 86 mg/dL 04/16/2025 8:43 PM [facility] Comment:Guidelines suggest a non-HDL cholesterol goal 30 mg/dL higher than the patient-specific LDL cholesterol goal. Cardiac Risk Ratio 2.8 0.0 - 5.0 2024 8:43 PM [facility] Triglycerides 246(H) <=150 mg/dL 04/16/2025 8:43 PM [facility] Blood (Blood) Venipuncture / Unknown 04/16/2025 3:21 PM EST 04/16/2025 3:21 PM EST us Jamaal Ham MD LAB BLOOD BKR ORDERABLES Fin al Result Performing Organization Address [facility]/ZIP Co de Phone Number [address] [address] from Last 3 Months Insurance [employer] POS PPO REPLACEMENT [employer] PPO REPLACEMENT [employer] PPO REPLACEMENT [employer] PPO REPLACEMENT [employer] PPO REPLACEMENT [employer] PPO REPLACEMENT Advance Directives For more information, please contact: [phone] (9AM - 5PM [facility], Saturday-Saturday) * Full Code (Latest Code Status on File) Date Activated Date Inactivated Comments 12/25/2023 11:58 AM Question Answer Comments Code Status Confirmed With: Patient Care Teams Nitroglycerin Separator Operator Relationship Specialty Start Date End Date Carmita Dietz NP [address] [place] [address] PCP - General Nurse Practitioner 08/12/23 Additional Source Comments The information contained in this document represents components of the legal health record. It is not the complete legal health record.[facility]
== END 2025-04-27 16:29 | disposition home or self-care (01) ==
LOC: HO.HKA 15:13
PROVIDERS: PCP Nurse Practitioner Primary Care; Visit Provider Internal Medicine Hypertension Specialist
DX: E21.3 Hyperparathyroidism, unspecified (principal); N18.9 Chronic kidney disease, unspecified; I12.9 Hypertensive chronic kidney disease with stage 1 through stage 4 chronic kidney disease, or unspecified chronic kidney disease; D64.9 Anemia, unspecified
CPT/HCPCS: 99214

== ENCOUNTER → 2025-04-27 15:13 | Outpatient (BNVA) | payer MEDICARE, SELFPAY | PROVIDERS: PCP Nurse Practitioner Primary Care; Visit Provider Internal Medicine Hypertension Specialist | DX: I10 Essential (primary) hypertension (principal); E21.3 Hyperparathyroidism, unspecified; N18.9 Chronic kidney disease, unspecified; D64.9 Anemia, unspecified | CPT/HCPCS: 99212 ==

== ENCOUNTER 2025-05-05 09:35 | Outpatient (AMB) | payer MEDICARE, SELFPAY ==
--- OUTSIDE RECORDS SUMMARY | 2020-02-16 10:20 | XMS_ITS | Encounter Summary ---
Author Organization [facility] Address [address] [facility] [address] [place] [address] Phone Care Team Providers Care Wall And Floor Tiler Name Role Phone Archie Finch MD Primary Care Provider +1 [phone] Encounter Details Date Type Department Care Team (Late st Contact Info) Description 02/16/2020 11:20 AM EDT Hospital Encounter [facility] [address] [place] [address] Christine Lemos CNP 12 [place], [place] [phone] [email or web address] Social History Tobacco Use Types Packs/Day Years [...] Laterality Modality Ankle Right, Foot Right [facility] 02/16/2020 11:3 6 AM EDT Impressions 02/16/2020 11:38 AM EDT Pronounced Achilles enthesopathy and distal tendon calcification with overlying soft tissue swelling but without acute bony pathology apparent. POS - [id number] Narrative 02/16/2020 11:38 AM EDT COMPARISON: None [...] but without acute bony pathologyapparent. POS - [id number] Christine Lemos ENTERTAINMENT AGENT IMG XR LOWER EXTREMITY Mae l Result documented in this encounter Visit Diagnoses Not on filedocumented in this encounter Care Teams Wall And Floor Tiler Relationship Specialty Start Date End Date Archie Finch MD [address] [place] [address] PCP - General Internal Medicine 07/08/19 08/11/23 documented as of this encounter Additional Source Comments The information contained in this document represents components of the legal health record. It is not the complete legal health record.[facility]
--- OUTSIDE RECORDS SUMMARY | 2020-04-18 11:37 | XMS_ITS | Encounter Summary ---
Author Organization [facility] Address [address] [facility] [address] [place] [address] Phone Care Team Providers Care Pulp And Paper Tester Name Role Phone Archie Finch MD Primary Care Provider +1 -[phone] Encounter Details Date Type Department Care Team (Late st Contact Info) Description 04/18/2020 11:37 AM EST Hospital Encounter [facility] [address] [place] [address] Christine Lemos CNP 12 [place], [place] [phone] [email or web address] Social History Tobacco Use Types Packs/Day Years [...] fracture bone scintigraphy could be considered. POS [id number] Narrative 04/18/2020 11:55 AM EST COMPARISON: None [...] fracture bone scintigraphy could be considered. POS [id number] Christine Lemos MARINE STEWARD IMG XR CHEST Final Resul t documented in this encounter Visit Diagnoses Not on filedocumented in this encounter Care Teams Pulp And Paper Tester Relationship Specialty Start Date End Date Archie Finch MD 300 [facility] [address] [place] [address] PCP - General Internal Medicine 07/08/19 08/11/23 documented as of this encounter Additional Source Comments The information contained in this document represents components of the legal health record. It is not the complete legal health record.[facility]
--- OUTSIDE RECORDS SUMMARY | 2020-11-14 09:15 | XMS_ITS | Encounter Summary ---
Author Organization [facility] Address [address] [facility] [address] [place] [address] Phone Care Team Providers Care Veneer Gluer Name Role Phone Archie Finch MD Primary Care Provider [phone] [phone] Encounter Details Date Type Department Care Team (Late st Contact Info) Description 11/14/2020 10:15 AM EDT Hospital Encounter [facility] [address] [place] [address] Shakila Duff FNP 12 [place], [place] [phone] [email or web address] Social History Tobacco Use Types Packs/Day Years [...] IMPRESSION: No fracture or dislocation. Shakila Duff PAINTER SKI EDGE IMG XR LOWER EXTREMITY Mae l Result documented in this encounter Visit Diagnoses Not on filedocumented in this encounter Care Teams Veneer Gluer Relationship Specialty Start Date End Date Archie Finch MD [address] [place] [address] PCP - General Internal Medicine 07/08/19 08/11/23 documented as of this encounter Additional Source Comments The information contained in this document represents components of the legal health record. It is not the complete legal health record.[facility]
--- OUTSIDE RECORDS SUMMARY | 2022-05-23 11:49 | XMS_ITS | Encounter Summary ---
Author Organization [facility] Address [address] [place] [phone] Phone Care Team Providers Care Spanish Instructor Name Role Phone Archie Finch MD Primary Care Provider [phone] Encounter Details Date Type Department Care Team (Late st Contact Info) Description 05/23/2022 11:49 AM EST Hospital Encounter [facility] [address] [place] [phone] Christine Lemos CNP [address] [place], [place] [phone] [email or web address] Social History Tobacco Use Types Packs/Day Years [...] No fracture or dislocation. Christine Coelho Aminta PROCEDURE MANAGER IMG XR LOWER EXTREMITY Mae l Result documented in this encounter Visit Diagnoses Not on filedocumented in this encounter Care Teams Spanish Instructor Relationship Specialty Start Date End Date Archie Finch MD [address] [place] [address] PCP - General Internal Medicine 07/08/19 08/11/23 documented as of this encounter Additional Source Comments The information contained in this document represents components of the legal health record. It is not the complete legal health record.[facility]
--- OUTSIDE RECORDS SUMMARY | 2023-09-01 09:37 | XMS_ITS | Encounter Summary ---
Author Organization [facility] Address [address] [place] [phone] Phone Care Team Providers Care Physicians And Surgeons Name Role Phone Camrita Dietz NP Primary Care Provid er Encounter Details Date Type Department Care Team (Late st Contact Info) Description 09/01/2023 10:37 AM EDT Hospital Encounter [facility] [address] [place] [phone] Shakila Duff FNP [address] [place] [address] [email or web address] Social History Tobacco Use [...] tissue swelling of the ankle. Shakila Duff COMMERCIAL PEST CONTROL REPRESENTATIVE IMG XR LOWER EXTREMITY Mae l Result documented in this encounter Visit Diagnoses Not on filedocumented in this encounter Care Teams Physicians And Surgeons Relationship Specialty Start Date End Date Carmita Dietz NP [address] [place] [phone] PCP - General Nurse Practitioner 08/12/23 documented as of this encounter Additional Source Comments The information contained in this document represents components of the legal health record. It is not the complete legal health record.[facility]
--- OUTSIDE RECORDS SUMMARY | 2023-09-01 09:37 | XMS_ITS | Encounter Summary ---
Author Organization [facility] Address [address] [place] [phone] Phone Care Team Providers Care Clinical Programmer Name Role Phone Carmita Dietz NP Primary Care Provid er Encounter Details Date Type Department Care Team (Late st Contact Info) Description 09/01/2023 10:37 AM EDT Hospital Encounter [facility] [address] [place] [address] Shakila Duff FNP 12 [place] [address] CHIRAG@[email or web address] Social History Tobacco Use Types [...] tissue swelling of the ankle. Shakila Duff CLAY MIXER IMG XR LOWER EXTREMITY Mae l Result documented in this encounter Visit Diagnoses Not on filedocumented in this encounter Care Teams Clinical Programmer Relationship Specialty Start Date End Date Carmita Dietz NP [address] [place] [address] PCP - General Nurse Practitioner 08/12/23 documented as of this encounter Additional Source Comments The information contained in this document represents components of the legal health record. It is not the complete legal health record.[facility]
--- OUTSIDE RECORDS SUMMARY | 2025-05-01 23:59 | XMS_ITS | Continuity of Care Document ---
Author Organization [facility] ter Address [address] [place] [address]- Care Team Providers Care Wedger Machine Name Role Phone J Luis CEDILLO, Carmita Lua Primary Care Physic romie Encounter [facility] [id number] Date(s): 02/17/25 - 05/01/[address] [address]- Attending Physician: Silverio Campos MD Admitting Physician: Silverio Campos MD Encounter Type: Preadmit Daystay Allergies, Adverse Reactions, Alerts Substance Criticality Severity Reaction Reaction Severity Status EMELIA inhibitors Anaphylaxis Act adriana Immunizations Given and Recorded Vaccine Date Status Refusal Reason SARS-CoV-2 (COVID-19) mRNA BNT-162b2 vac 07/16/20 Given SARS-CoV-2 (COVID-19) mRNA BNT-162b2 vac 06/25/20 Given Medications acetaminophen 325 mg oral capsule = 650 mg, By Mouth, Daily, 3-4 tablets, # 90 capsule, 0 Refills, Maintenance, 04/11/18 8:28:15 AM EST, Capsule Start Date: 04/11/18 Status: Ordered Medication Dispense Status: Completed Quantity: 90.0 Unit: capsule Total Allowed Fills: 1 Fills Dispensed: 0 amLODIPine 5 mg oral tablet 5 mg, 1, tablet, By Mouth, Daily, # 30 tablet, Refills 0, Tot. Refills 0, Maintenance, 04/27/25 11:46:00 AM EST, Route to Pharmacy Electronically, [facility], Partial fill upon patient request if the prescription is for a schedule II opioid drug., 157, cm, 04/27/25 11:18:00 EST, Height, 87.1, kg, 04/24/25 14:35:00 EST, Dry Weight Start Date: 04/27/25 Stop Date: 05/27/25 Status: Ordered Medication Dispense Status: Completed Quantity: 30.0 Unit: tablet Total Allowed Fills: 1 Fills Dispensed: 0 Biotin By Mouth, Daily, 0 Refills, Maintenance, 02/08/25 2:51:00 PM EDT, Partial fill upon patient request if the prescription is for a schedule II opioid drug. Start Date: 02/08/25 Status: Ordered Medication Dispense Status: Completed Total Allowed Fills: 1 Fills Dispensed: 0 cinacalcet 30 mg oral tablet 1 tablet = 30 mg, By Mouth, Every other day, 0 Refills, 07/24/24 11:13:00 AM EDT, Partial fill upon patient request if the prescription is for a schedule II opioid drug. Start Date: 07/24/24 Status: Ordered Medication Dispense Status: Completed Total Allowed Fills: 1 Fills Dispensed: 0 Gas-X = 80 mg, 3 times a day after meals and bedtime, 0 Refills, Maintenance, 02/08/25 2:51:00 PM EDT, Partial fill upon patient request if the prescription is for a schedule II opioid drug. Start Date: 02/08/25 Status: Ordered Medication Dispense Status: Completed Total Allowed Fills: 1 Fills Dispensed: 0 Lasix 20 mg oral tablet 20 mg, 1, tablet, By Mouth, Daily, # 30 tablet, Refills 1, Tot. Refills 1, Maintenance, 04/09/25 5:06:00 PM EST, Route to Pharmacy Electronically, [facility], Partial fill upon patient request if the prescription is for a schedule II opioid drug., 157.5, cm, 04/09/25 13:48:00 EST, Height, 93.7, kg, 04/03/25 3:47:00 EST, Dry Weight Start Date: 04/09/25 Stop Date: 06/08/25 Status: Ordered Medication Dispense Status: Completed Quantity: 30.0 Unit: tablet Total Allowed Fills: 2 Fills Dispensed: 0 levothyroxine 0.075 mg oral tablet 1 tablet, Daily, 0 Refills, Maintenance, 04/11/18 8:24:41 AM EST Start Date: 04/11/18 Status: Ordered Medication Dispense Status: Completed Total Allowed Fills: 1 Fills Dispensed: 0 MAGNESIUM OXIDE 250 MG CAPLET MAGNESIUM OXIDE 250 MG CAPLET, TAKE 2 TABLETS BY MOUTH TWICE A DAY Start Date: 04/02/25 Status: Ordered Medication Dispense Status: Completed Total Allowed Fills: 1 Fills Dispensed: 0 Metamucil Powder 1 packet, By Mouth, Daily, 0 Refills, Maintenance, 01/29/18 3:48:47 PM EDT, Powder Start Date: 01/29/18 Status: Ordered Medication Dispense Status: Completed Total Allowed Fills: 1 Fills Dispensed: 0 Metformin Tablet = 500 mg, By Mouth, Daily, with PM meal, 0 Refills, Maintenance, 03/12/12 2:04:46 PM EDT Start Date: 03/12/12 Status: Ordered Medication Dispense Status: Completed Total Allowed Fills: 1 Fills Dispensed: 0 nystatin topical 350498 u/gm powder APPLY TOPICALLY TO AFFECTED AREA TWICE A DAY Start Date: 04/02/25 Status: Ordered Medication Dispense Status: Completed Total Allowed Fills: 1 Fills Dispensed: 0 omeprazole 40 mg oral enteric coated capsule 90 each, 0 Refill(s), TAKE 1 CAPSULE BY MOUTH EVERY DAY IN THE MORNING FOR 90 DAYS, 0 Refills, 07/24/24 11:12:00 AM EDT, Partial fill upon patient request if the prescription is for a schedule II opioid drug. Start Date: 07/24/24 Status: Ordered Medication Dispense Status: Completed Total Allowed Fills: 1 Fills Dispensed: 0 ondansetron 4 mg oral tablet, disintegrating PLACE 1 TABLET ON THE TONGUE AND ALLOW TO DISSOLVE EVERY 4 TO 6 HOURS IF NEEDED FOR NAUSEA Start Date: 04/02/25 Status: Ordered Medication Dispense Status: Completed Total Allowed Fills: 1 Fills Dispensed: 0 Probiotic Formula By Mouth, Daily, 0 Refills, Maintenance, 02/08/25 2:51:00 PM EDT, Partial fill upon patient request if the prescription is for a schedule II opioid drug. Start Date: 02/08/25 Status: Ordered Medication Dispense Status: Completed Total Allowed Fills: 1 Fills Dispensed: 0 rosuvastatin 5 mg oral tablet 90 each, 0 Refill(s), TAKE 1 TABLET BY MOUTH EVERY DAY, 0 Refills, 07/24/24 11:12:00 AM EDT, Partialfill upon patient request if the prescription is for a schedule II opioid drug. Start Date: 07/24/24 Status: Ordered Medication Dispense Status: Completed Total Allowed Fills: 1 Fills Dispensed: 0 spironolactone 25 mg oral tablet 25 mg, By Mouth, Daily, # 30 tablet, Refills 1, Tot. Refills 1, Maintenance, 04/09/25 3:21:00 PM EST, Route to Pharmacy Electronically, [facility], Partial fill upon patient request if the prescription is for a schedule II opioid drug., 157.5, cm, 04/09/25 13:48:00 EST, Height, 93.7, kg, 04/03/25 3:47:00 EST, Dry Weight Start Date: 04/09/25 Stop Date: 06/08/25 Status: Ordered Medication Dispense Status: Completed Quantity: 30.0 Unit: tablet Total Allowed Fills: 2 Fills Dispensed: 0 Problem List Condition Confirmation Course Effective Dates Status H ealth Status Informant Parathyroid nodule Confirmed Active Complete heart block Confirmed Active Diabetes mellitus - adult onset Confirmed Active History of esophagitis with gastritis Confirmed Active Gout Confirmed Active Hiatal hernia Confirmed Active Hyperlipidemia Confirmed Active Hypertension Confirmed Active Hypothyroidism Confirmed Active 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 Severe obesity (BMI 35.0-39.9) with comorbidity Confirmed Active Social History Social History Type Response Smoking Status Never smoker; Tobacc o user in household: No entered on: 03/31/14 Sex Sex Representation Female (finding) History and physical note * Event Display: History and Physical Hospital Authored Date: * Event Display: History and Physical Hospital Authored Date: Patient Care team information Care Team Personnel Name: Dallas Huang RN Position: [facility] RN Member Role: Primary Care Nurse Name: Jamison Murray RN Position: [facility] RN Member Role: Primary Care Nurse Name: Jade Berry RN Position: [facility] RN Member Role: Primary Care Nurse Name: Helen Clemente Position: [facility] Outreach Member Role: Lifetime Consulting Physician Name: J Luis CEDILLO, Carmita Lua Position: [facility] Outreach Member Role: PCP Address: [address] Telecom: Care Team Related Persons Name: CHANELCHEYANNE BUCHANAN Name: YOUSIF DE LUNA Insurance Providers Guarantor name: LULI DE LUNA Health Plan Information #: 1 Payer: [employer] ADV PPO Payer Identifier: NA Member Number: [id number] Group Number: [id number] Subscriber Identifier: [id number] Relationship to Subscriber: self Coverage Type: Medicare PPO Coverage Verification Date: NA Telecom: Address:
--- OUTSIDE RECORDS SUMMARY | 2025-05-02 23:59 | XMS_ITS | Continuity of Care Document ---
Author Organization [facility] Address [address] [place] [phone]- Care Team Providers Care Brewing Technician Name Role Phone J Luis CEDILLO, Carmita Lua Primary Care Physic romie Encounter [facility] Date(s): 04/02/25 - 05/02/25 [facility] [address] [place] [phone]- Encounter Type: Triage Allergies, Adverse Reactions, Alerts Substance Criticality Severity [...] 11:46:00 AM EST, Route to Pharmacy Electronically, [facility], Partial fill upon patient request [...] 5:06:00 PM EST, Route to Pharmacy Electronically, [facility], Partial fill upon patient request [...] Fills: 1 Fills Dispensed: 0 nystatin topical 460991 u/gm powder APPLY TOPICALLY TO AFFECTED AREA [...] 3:21:00 PM EST, Route to Pharmacy Electronically, [facility], Partial fill upon patient request [...] on: 03/31/14 Sex Sex Representation Female (finding) Patient Care team information Care Team Personnel [...] Outreach Member Role: Lifetime Consulting Physician Name: Carmita Dietz NP Position: [facility] Outreach Member Role: PCP Address: [address] [place] [phone]- Telecom: Care Team Related Persons Name: CHEYANNE BUCHANAN Name: YOUSIF DE LUNA Insurance Providers Guarantor name: LULI DRUMMOND [facility] [employer] Plan Information #: 1 Payer: [employer] ADV PPO Payer Identifier: NA Member Number: [id number] Group Number: [id number] Subscriber Identifier: SAI Relationship to Subscriber: self Coverage Type: Medicare PPO Coverage Verification Date: Telecom: SAI Address: NA
--- OUTSIDE RECORDS SUMMARY | 2025-05-04 13:40 | XMS_ITS | Encounter Summary ---
Author Organization [facility] Address [address] [place] [phone] Care Team Providers Care Beater Engineer Helper Name Role Phone Unavailable Primary Care Provider Unavailabl e Reason for Referral * Imaging (Routine) - Pending Review Specialty Diagnoses / Procedures Referred By Austin hardin Referred To Contact Radiology Diagnoses Solitary pulmonary nodule Procedures PET CT Skull to Mid Thigh Initial Kirill Tamez MD [address] [place] [address] Phone: tel: [facility] Referral ID Status Reason Start Date Expiration Date V isits Requested Visits Authorized [id number] Pending Review 05/04/2025 05/04/2026 1 1 Reason for Visit * Imaging (Routine) - Pending Review Specialty Diagnoses / Procedures Referred By Austin hardin Referred To Contact Radiology Diagnoses Solitary pulmonary nodule Procedures PET CT Skull to Mid Thigh Initial Kirill Tamez MD [address] [place] [address] Phone: tel: [facility] Referral ID Status Reason Start Date Expiration Date V isits Requested Visits Authorized [id number] Pending Review 05/04/2025 05/04/2026 1 1 Encounter Details Date Type Department Care Team (Latest Contact Info) Description 05/04/2025 1:40 PM EST Hospital Encounter [facility] PET Scan [address] [place] [phone] Solitary pulmonary nodule Social History Tobacco Use Types Packs/Day Years Used Date Smoking Tobacco: Never Assessed Comments Unknown Sex and Gender Information Value Date Recorded Sex Assigned at Not on file Legal Sex Female 12:01 AM EST Gender Identity Not on file Sexual Orientation Not on file documented as of this encounter Plan of Treatment Pending Results Name Type Priority Associated Diagnoses Date /Time PET CT Skull to Mid Thigh Initial Imaging Routine Solitary pulmonary nodule 05/04/2025 3:30 PM EST Scheduled Orders Name Type Priority Associated Diagnoses Orde r Schedule PET CT Skull to Mid Thigh Initial Imaging Routine Solitary pulmonary nodule Once for 1 Occurrences starting 05/04/2025 until 05/04/2025 documented as of this encounter Visit Diagnoses Diagnosis Solitary pulmonary nodule documented in this encounter Administered Medications Inactive Administered Medications - up to 3 most recent administrations Medication Order MAR Action Action Date Dose Rate Site F-18 FDG pet diag radio-isotope injection 11.2 millicurie 11.2 millicurie, intravenous, Once in imaging, Starting on Sat05/04/25 at 1415, For 1 dose Given 05/04/2025 2:15 PM EST 11.2 millicuries documented in this encounter Orders Medications Ordered That Javier ht Not Have Been Administered Count Last Ordered Date First Ordered Date F-18 FDG pet diag radio-isot ope injection 11.2 millicurie 1 05/04/2025 documented in this encounter
[2025-05-05 09:38] VITALS: BP 130/68; PULSE 97; BMI 34.3
--- NOTE | 2025-05-05 09:38 | MHC.OFFVIS ---
Vital Signs 05/05/25 09:38 Height 5 ft 2 in Weight 187 lb 6.287 oz BMI 34.3 BP 130/68 Blood Pressure Location Lt brachial Position Sitting Pulse 97 Pulse Source Pulse Oximeter Intake Visit Reasons: f/up bmc Allergies EMELIA Inhibitors Adverse Reaction (Severe, Verified 04/27/25 16:00) Angioedema Medication List - Last Reconciled 05/05/25 by Otf Patel MD acetaminophen (Tylenol Extra Strength) 650 mg PO Q6H amlodipine 5 mg PO DAILY biotin 5 mg PO DAILY cinacalcet 30 mg PO Q OTHER DAY furosemide 20 mg PO DAILY levothyroxine 75 mcg PO DAILY@0600 magnesium oxide 500 mg PO BID metformin 500 mg PO DAILY@1700 nystatin (Nystop) 1 appl topical BID PRN omeprazole 40 mg PO DAILY prednisone 40 mg PO PRN psyllium husk (Metamucil) 3 tbsp PO DAILY rosuvastatin 5 mg PO DAILY spironolactone 25 mg PO DAILY HPI Comments Details: Annetta Whitlock returns for follow-up. She used to go to [facility] but as their prior employment law specialist has retired, she switched to us. Original pacemaker around 1283-8531; generator change around 2013 and again in 2023. Per prior cardiology notes, sick sinus syndrome/primarily AV julian block. Comorbidities include hypertension, dyslipidemia as well as type 2 diabetes. She does not have any known coronary disease or myocardial infarction. 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 Subsequently, she was seen by EP and has undergone Bi V upgrade. After the pacemaker placement, it seems that she was complaining of possibly diaphragmatic stimulation and has had some changes made but not entirely clear what was done. Otherwise, she has brief episodes of nonspecific feeling in the chest accompanied by lightheadedness but no syncope. On the rhythm strip done today she was having some PVCs which correlate with her symptoms. Otherwise, she has also been diagnosed with enlarging lung mass and follows up with Pulmonary. It seems she just had a PET scan done. [facility] Medical History (Updated 05/05/25 @ 14:44 by Otf Patel MD) Pacemaker at end of battery life Elevated lipase Mass of left lung AV block Type 2 diabetes mellitus with unspecified complications Pacemaker Hypercholesteremia GERD (gastroesophageal reflux disease) Hypothyroid Hypertension Surgical History History of tonsillectomy H/O total knee replacement H/O: hysterectomy Hx of cholecystectomy Family History Mother HTN (hypertension) Heart attack Father No problems noted. Maternal Grandmother Breast cancer Social History Household Members: Spouse Housing: House Do you presently have visiting nurse or other home services: No Alcohol intake: current Alcohol intake frequency: holidays/special occasions only Patient Tobacco Use Status: Never used Tobacco Advance Directives Date on File: 08/13/23 service: No Review of Systems Const Reports fatigue and Denies weakness ENT Denies dizziness Card Denies chest pain, Denies chest pain with activity, Denies syncope, Denies rapid heart rate, Denies pedal edema, Denies edema, Denies leg edema, Denies lightheadedness, Denies palpitations, Denies dyspnea, Denies dyspnea on exertion and Denies orthopnea Resp Denies cough, Denies dyspnea and Denies dyspnea on exertion GI Denies hematochezia and Denies change in stool character Musc Denies abnormal gait, Denies muscle cramps, Denies muscle weakness, Denies numbness, Denies radiating pain into limb and Denies tingling Neuro Denies abnormal gait, Denies dizziness, Denies syncope, Denies numbness, Denies tingling and Denies weakness Endo Reports fatigue and Denies palpitations Physical Exam Vital Signs: Last Vital Signs Pulse 97 05/05/25 09:38 BP 130/68 05/05/25 09:38 BMI result Body Mass Index 34.3 Const General: comfortable and no acute distress Orientation/consciousness: patient oriented x3 HEENT Other: Unremarkable Head: Yes normal to inspection Neck Neck: Yes normal visual inspection Chest Chest palpation & inspection: normal inspection of the chest Resp Auscultation: clear to auscultation bilaterally Cardio Palpation: normal PMI Heart sounds: S1 normal heart sound present, S2 normal heart sound present, no gallops, no murmurs and no rubs GI Palpation (GI): Soft to palpation Back/Spine/Pelvis Other: unremarkable Skin General skin exam: no rashes or lesions noted Neuro General: patient oriented x3 Extrem General: Yes normal to inspection Psych Mental Status: mental status grossly normal Office Procedures EKG Details: EKG with sinus rhythm with biventricular pacing and PVCs. 13787-[id number], Complete Assessment & Plan Assessment & Plan (1) Biventricular cardiac pacemaker in situ: Code(s): Z95.0 - Presence of cardiac pacemaker Category: Medical Plan: Status post upgrade of dual-chamber to biventricular device with a coronary sinus lead. We will schedule her for an echocardiogram to see if there is any LVEF improvement and also device check. (2) Cardiomyopathy: Code(s): I42.9 - Cardiomyopathy, unspecified Category: Medical Plan: [facility] echocardiogram from March, LVEF 15-20%. LV severely dilated. Moderate mitral regurgitation. RV free wall akinetic. Repeat study from April-LVEF 39%. Improvement in LV dilatation/EF. We will recheck again now that she has a biventricular device in place. Clinically, no overt heart failure. She is on diuretics. We discussed about adding other medications like Farxiga but the lung mass should probably be sorted out 1st. If the cardiomyopathy is mainly pacing related, EF should hopefully improve. The myocardial perfusion imaging study from 2020, reversible inferior/inferolateral defect thought to be from diaphragmatic attenuation artifact. (3) PVC (premature ventricular contraction): Code(s): I49.3 - Ventricular premature depolarization Category: Medical Plan: PVCs on the EKG today correlate with timing of her symptoms like the way sensation in the chest extra. Try beta-blockers to see if it helps. (4) Essential hypertension: Code(s): I10 - Essential (primary) hypertension Category: Medical Plan: Stable. (5) Type 2 diabetes mellitus with unspecified complications: Code(s): E11.8 - Type 2 diabetes mellitus with unspecified complications Category: Medical Plan: On metformin. (6) Lung mass: Code(s): R91.8 - Other nonspecific abnormal finding of lung field Category: Medical Plan: If surgical resection is planned, we will need a repeat stress test, especially if the LVEF remains low vs diagnostic catheterization. Plan I reviewed the patient's complex recent medical history, including her recent hospitalizations, heart failure diagnosis, and pacemaker implantation. We discussed her persistent symptoms of a wishy feeling and lightheadedness, and I explained that the cause could be PVCs. Regarding her heart failure, I acknowledged the previous recommendation to start Farxiga, but we mutually agreed to postpone initiating it and other new cardiac medications until her oncology plan for the lung mass is established, to avoid creating confounding variables with new treatments. I also explained that if she proceeds with surgery for the lung mass, she will require a more extensive cardiac workup, including a new stress test, to ensure she is safe for the procedure. Patient was informed and verbally consented to the use of an ambient scribe for clinic note documentation during this visit. Total time spent including review of [facility] records, counseling, documentation, coordination of care-60 minutes. Medications: New metoprolol succinate ER (Toprol XL) 25 mg PO DAILY 90 tabs 1RF Patient Instructions: - Please follow up with your doctor, Dr. Tamez, on Saturday to discuss the results of your PET scan for the spot on your lung. - We have decided to wait on starting the new heart failure medication, Farxiga, until after you know the plan for your lung issue. - If you and your doctors decide on surgery to remove the lung mass, you will need to have more heart tests done, including a stress test, before the operation. - Continue to take your current medications as they are prescribed. Coding Level of Care Code Est Pt Level 5 (24694) Add On Problem Visit Only Diagnoses Biventricular cardiac pacemaker in situ Z95.0 Cardiomyopathy I42.9 PVC (premature ventricular contraction) I49.3 Essential hypertension I10 Type 2 diabetes mellitus with unspecified complications E11.8 Lung mass R91.8 CPT Codes EKG - CPT: 39300-Iresckjmruzyrocwz, Complete ([id number])
--- OUTSIDE RECORDS SUMMARY | 2025-05-05 09:38 | XMS_ITS | Data Portability ---
Author Organization [place] - [facility], Allergy Address [address] [address] Care Team Providers Care Group Product Manager Name Role Phone JACOBO ABAD Primary Care [...] mupirocin 2 % topical ointment 2024 025 [facility]/Pharmacy #[id number], [address] [place], [address], 5 11:51:39 Patient TargetsNo targets recorded. Patient InstructionsNo instructions recorded. Reason for Referral None Reported. Problems Name Problem SNOMED Code Status Onset Date Resolution Date Notes Provider Name and Address Organization Details Recorded Time Migraine 10231576 Active 2017 Other migraine , not intracta ble, without status migraino kervin; Note: Date Diagnose d: 8 10:47 AM (G43.809 ) Not Available [facility] 4 03:07:58 Follow-u p visit Active 2017 Encounte r for follow-u p examinat ion after complete d treatmen t for conditio ns other than malignan t neoplasm ; Note: Date Diagnose d: 04/21/20 18 2:55 PM (Z09) Not Available [facility] 4 03:08:00 Chronic sphenoid al sinusiti s 04333745 Completed 201712/13/2023 Chronic sphenoid al sinusiti s; Note: Date Diagnose d: 04/28/20 18 8:26 PM (J32.3) Chroni c sphenoid al sinusiti s; Note: Date Diagnose d: 8 11:01 AM (J32.3) ; Start Date : 02/11/20 18 Not Available [facility] 4 03:07:58 Headache 11408037 Active 2019 Facial pain NOS; Note: Date Diagnose d: 02/25/20 20 1:22 PM (R51) Facial pain NOS; Note: Date Diagnose d: 8 10:47 AM (R51) ; Start Date : 02/11/20 18 Not Available [facility] 4 03:07:59 Ulcerati ve rhinitis 93250959 Active 2019 Nasal mucositi s (ulcerat adriana); Note: Date Diagnose d: 0 1:36 PM (J34.81) Not Available [facility] 4 03:08:00 [place]io[place] ma 73508386 Active 2023 Angioneu rotic edema, initial encounte r; Note: Date Diagnose d: 4 9:06 AM (T78.3XX A) Not Available [facility] 4 03:08:00 Gastroes ophageal reflux disease 833099059 Active 2024 SANDIE WILLIAM MD 100 [facility] [place],RAJINDER [facility], [place], [address] , [facility] 5 08:18:24 Obstruct adriana sleep apnea syndrome 11541354 Active 2024 SANDIE WILLIAM MD [address] [facility] [address], [place], [address] , [facility] 5 08:18:33 Problem Notes None recorded. Procedures Surgical History Date Name Laterality Status Provider Name and Address Organization Details Recorded Time 06/12/19 Fiberoptic Laryngoscopy (Comprehensive) completed SANDIE WILLIAM MD 100 [facility],[place] [address], [place], [address], [facility] 06/13/2024 08:17:40 Imaging Results None recorded. Procedure [...] layed release 06/12 completed Medicati on ID: [id number] D uration Value: 90 Brand Name: pantopra zole Sen d Method: E-Prescr ibed Sub s Allowed: subs OK Speci al Instruct ion: TAKE 1 TABLET BY ORAL ROUTE DAILY Me dication GenericN radha: pantopra zole Not Available Not Available Not Available pravastat in 20 mg tablet 2017 active Medicati on ID: [id number] D uration Value: 90 Brand Name: pravasta [...] by mouth 06/12 completed Medicati on ID: [id number] D uration Value: 7 Prescri bed By Name: Sandie weiss MD Brand Name: cefuroxi me axetil S end Method: E-Prescr ibed Sub s Allowed: subs OK Medic ationGen ericName : cefuroxi me axetil Not Available Not Available Not Available amoxicill in 875 mg-potass ium clavulana te 125 mg tablet 05/09 completed Medicati on ID: [id number] D uration Value: 10 Reason: () Brand [...] Available Advil 04/21 completed Medicati on ID: [id number] R sergio: () Brand Name: advil Se nd Method: E-Prescr ibed Sub s Allowed: subs OK Medic ationGen ericName : advil Not Available Not Available Not Available Tylenol 06/12 completed Medicati on ID: [id number] B rand Name: tylenol Send Method: E-Prescr ibed Sub s Allowed: subs OK Medic ationGen ericName : tylenol Not Available Not Available Not Available amlodipin e 10 mg-benaze pril 40 mg capsule 06/12 completed Medicati on ID: [id number] D uration Value: 90 Brand Name: amlodipi [...] Updated DateTime 06/12/2024 157.48 cm 36.6 kg/m2 23090.47 g Georgette Lynn [place] - [facility] 06/12/2024 11:32:13 Social History None recorded. Functional [...] ICD10 Code Diagnosis IMO Codes Diagnosis Note [id number] SANDIE WILLIAM MD [facility] [address] [address] 06/12/2024 11:19:33 06/12/2024 11:55:40 Ulcerative rhinitis 46744266 J34.81 Gastroesop hageal reflux disease 617767720 K21.00 Obstructiv e sleep apnea syndrome 14224607 G47.33 Health Concerns Section Related Observation LastModified by Organization Detai ls LastModified Time None Recorded Concern Status LastModified by Organization Details LastModified Time None Recorded Advance Directives Directive None Recorded Payers Insurance Date Sequence Insurance Name Policy Number Policy Lara Covered Member ID Lara Member ID Guarantor Name 06/12/2024 1 [facility] [id number] Annetta E E McElwey [id number] Annetta E McElwey 06/15/2024 1 [facility] (MEDICARE REPLACEMENT /ADVANTAGE - PPO) [id number] Annetta E E McElwey [id number] Annetta E McElwey Notes Date Note Type Note Provider Name and Address Organization Details Recorded Time 06/12/2024 text/html ROS as noted in the HPI 78 yo F presents for evaluation of her throatangioedema last year seen [facility] [place] new FAINA CPAP, right side of nose gets crusting, uses AYR saline and gel esophagitis and gastritis in September, on omeprazole gets scratchy, this week is a little better SANDIE WILLIAM MD [address] [place] [address], [phone], [facility] - [facility] 06/13/2024 08:20:50 OBGyn Episode No OBEpisode recorded.
--- OUTSIDE RECORDS SUMMARY | 2025-05-05 09:38 | XMS_ITS | Encounter Summary ---
Author Organization [facility] Address 399 [facility] [address] [place] [address] Phone Care Team Providers Care Transportation Project Manager Name Role Phone Carmita Dietz NP Primary Care Provid er Encounter Details Date Type Department Care Team (Late st Contact Info) Description 12/25/2023 Procedure Pass [facility] [address] [place] [address] Social History Tobacco Use Types Packs/Day Years [...] on filedocumented in this encounter Care Teams Transportation Project Manager Relationship Specialty Start Date End Date Carmita Dietz NP [address] [place] [address] PCP - General Nurse Practitioner 08/12/23 documented as of this encounter Additional Source Comments The information contained in this document represents components of the legal health record. It is not the complete legal health record.[facility]
--- OUTSIDE RECORDS SUMMARY | 2025-05-05 09:38 | XMS_ITS | Encounter Summary ---
Author Organization [facility] Address 399 [facility] [address] [place] [address] Phone Care Team Providers Care And Taxi Instructor Bus Trolley Name Role Phone Damien Mcgrath MD Primary Care Provider Archie Flores MD Primary Care Provider [phone] [phone] Carmita Dietz NP Primary Care Provid er Encounter Details Date Type Department Care Team (Late st Contact Info) Description 09/30/2018 Ancillary Orders Josephine Turner Non-Invasive Cardiology [address] [place] [address] Kash Sarabia MD [address] [place] [address] [email or web address] Heart block Social History Tobacco Use [...] disorder documented in this encounter Care Teams And Taxi Instructor Bus Trolley Relationship Specialty Start Date End Date Damien Mcgrath MD PCP - General 02/28/17 07/07/19 Archie Finch MD [address] [address] PCP - General Internal Medicine 07/08/19 08/11/23 Carmita Dietz NP [address] [place] [address] PCP - General Nurse Practitioner 08/12/23 documented as of this encounter Additional Source Comments The information contained in this document represents components of the legal health record. It is not the complete legal health record.[facility]
--- OUTSIDE RECORDS SUMMARY | 2025-05-05 09:38 | XMS_ITS | Encounter Summary ---
Author Organization [facility] Address 399 [facility] [address] [place] [address] Phone Care Team Providers Care Apprentice Instrument Technician Name Role Phone Archie Finch MD Primary Care Provider + [phone] Carmita Dietz NP Primary Care Provid er Encounter Details Date Type Department Care Team (Late st Contact Info) Description 04/14/2020 Procedure Pass Burton Yue Non-Invasive Cardiology [address] [place] [address] Social History Tobacco Use Types Packs/Day Years [...] on filedocumented in this encounter Care Teams Apprentice Instrument Technician Relationship Specialty Start Date End Date Archie Finch MD [address] [place] [address] [place] [address] PCP - General Internal Medicine 07/08/19 08/11/23 Carimta Dietz, NGUYEN 300 [facility] [address] [place] [address] PCP - General Nurse Practitioner 08/12/23 documented as of this encounter Additional Source Comments The information contained in this document represents components of the legal health record. It is not the complete legal health record.[facility]
--- OUTSIDE RECORDS SUMMARY | 2025-05-05 09:38 | XMS_ITS | Encounter Summary ---
Author Organization [facility] Address 399 [facility] [address] [place] [address] Phone Care Team Providers Care Automation Test Engineer Name Role Phone Carmita Dietz NP Primary Care Provid er Encounter Details Date Type Department Care Team (Late st Contact Info) Description 12/16/2023 Procedure Pass Burton [place] Non-Invasive Cardiology [address] [place] [address] Social History Tobacco Use Types Packs/Day Years [...] on filedocumented in this encounter Care Teams Automation Test Engineer Relationship Specialty Start Date End Date Carmita Dietz NP [address] [place] [address] PCP - General Nurse Practitioner 08/12/23 documented as of this encounter Additional Source Comments The information contained in this document represents components of the legal health record. It is not the complete legal health record.[facility]
--- OUTSIDE RECORDS SUMMARY | 2025-05-05 09:38 | XMS_ITS | Encounter Summary ---
Author Organization [facility] Address 399 [facility] [address] [place] [address] Phone Care Team Providers Care Vamp Creaser Name Role Phone Damien Mcgrath MD Primary Care Provider Archie Flores MD Primary Care Provider [phone] Carmita Dietz NP Primary Care Provid er Encounter Details Date Type Department Care Team (Latest Contact Info) Description 10/29/2017 Transcribe Orders [facility] [address] [place] [address] Maryuri Torres PA [address] [place] [address] [address] Hypercalcemia (Primary Dx) Social History Tobacco Use [...] 8:37 AM EDT) COLLECTION DATA 24 HOUR [facility] TOTAL VOLUME 1,050 mL [facility] 10/29/2017 8:37 AM EDT 10/29/2017 8:40 AM EDT us Maryuri MARSHALL URINE ORDERABLES Mae l Result Performing Organization Address [facility]/ZIP Co de Phone Number [address] [address] * Phosphorus, 24 hr urine (10/29/2017 8:37 AM EDT) URINE PHOSPHORUS 50.8 mg/dL [facility] PHOSPHORUS OUTPUT 533.4 400 - 1,300 mg/total output [facility] Urine (Urine) 10/29/2017 8:3 7 AM EDT 10/29/2017 8:40 AM EDT us Maryuri MARSHALL URINE ORDERABLES Mae l Result [address] [address] * Creatinine, 24 hr urine (10/29/2017 8:37 AM EDT) URINE CREATININE 96 mg/dL [facility] CREATININE OUTPUT 1,008 600 - 1,800 mg/total output [facility] Urine (Urine) 10/29/2017 8:3 7 AM EDT 10/29/2017 8:40 AM EDT us Maryuri MARSHALL LAB URINE ORDERABLES Final Result Performing Organization Address City/[facility]/ZIP Co de Phone Number [address] [address] * (ABNORMAL) Calcium, 24 hour urine (10/29/2017 8:37 AM EDT) URINE CALCIUM 3.9 mg/dL [facility] CALCIUM OUTPUT 41(L) 100 - 300 mg/total output [facility] Urine (Urine) 10/29/2017 8: 37 AM EDT 10/29/2017 8:40 AM EDT us Maryuri MARSHALL URINE ORDERABLES Mae l Result Performing Organization Address [facility] Co de Phone Number [address] [address] * (ABNORMAL) Renal panel (10/29/2017 8:37 AM EDT) SODIUM 144 133 - 146 mmol/L [facility] POTASSIUM 4.9 3.3 - 5.1 mmol/L [facility] CHLORIDE 104 96 - 108 mmol/L [facility] CO2 26 21 - 35 mmol/L [facility] GLUCOSE 135(H) 70 - 99 mg/dL [facility] BUN 20(H) 6 - 19 mg/dL [facility] CREATININE 1.20 0.5 - 1.5 mg/dL [facility] CALCIUM 10.6(H) 8.4 - 10.3 mg/dL [facility] PHOSPHORUS 3.2 2.7 - 4.5 mg/dL [facility] ALBUMIN 3.9 3.9 - 4.8 g/dL [facility] EGFR 45(L) >59 mL/min/1.7 3m2 [facility] Comment:If patient is black, multiply result by 1.159. Estimated glomerular filtration rate calculated using the CKD-EPI equation. ANION GAP 19 10 - 20 mmol/L [facility] Blood 10/29/2017 8:37 AM EDT 10/29/2017 8:39 AM EDT us Maryuri Luna Brian MARSHALL LAB BLOOD BKR ORDERAB LES Final Result [facility] [address] [place], [place] [id number] documented in this encounter Visit Diagnoses Diagnosis Hypercalcemia- Primary documented in this encounter Care Teams Vamp Creaser Relationship Specialty Start Date End Date Damien Mcgrath MD PCP - General 02/28/17 07/07/19 Archie Finch MD [address] [place] [address] PCP - General Internal Medicine 07/08/19 08/11/23 Carmita Dietz NP [address] [place] [address] PCP - General Nurse Practitioner 08/12/23 documented as of this encounter Additional Source Comments The information contained in this document represents components of the legal health record. It is not the complete legal health record.[facility]
--- OUTSIDE RECORDS SUMMARY | 2025-05-05 09:38 | XMS_ITS | Clinical Summary ---
Author Organization [facility] Address [address] [place] [address], [place] [address] Care Team Providers Care Topper Press Operator Name Role Phone Carmita Dietz [employer]-C Primary Care Provider + Allergies No known [...] 1 (one) time each day Active Biotin 52484 MCG tablet dispersible Take by mouth Active [...] patient's age to complete this topic [place] [address] Health [facility] Health Care Teams Topper Press Operator Relationship Specialty Start Date End Date Carmita Dietz NP-C [address], [address] [place] [address] PCP - General Nurse Practitioner 07/18/22
--- OUTSIDE RECORDS SUMMARY | 2025-05-05 09:38 | XMS_ITS | Encounter Summary ---
Author Organization [facility] Address [address] [facility] [address] [place] [address] Phone Care Team Providers Care Commercial Green Building Architect Name Role Phone Carmita Dietz EGG FACTORY WORKER-C Primary Care Provider + Reason for Visit * Reason Comments Med Refill Encounter Details Date Type Department Care Team (Late st Contact Info) Description 02/27/2023 Refill [facility] [address] [place] [phone] Arsen Villegas MD Social History Tobacco Use [...] on filedocumented in this encounter Care Teams Commercial Green Building Architect Relationship Specialty Start Date End Date Carmita Dietz NP-C [address], [address] [place] [address] PCP - General Nurse Practitioner 07/18/22 documented as of this encounter
--- OUTSIDE RECORDS SUMMARY | 2025-05-05 09:38 | XMS_ITS | Encounter Summary ---
Author Organization [facility] Address 399 [facility] [address] [place] [address] Phone Care Team Providers Care Autocad Detailer Name Role Phone Archie Finch MD Primary Care Provider + [phone] Carmita Dietz NP Primary Care Provid er Encounter Details Date Type Department Care Team (Late st Contact Info) Description 03/12/2020 Procedure Pass Burton Yue Non-Invasive Cardiology [address] [place] [address] Social History Tobacco Use Types Packs/Day Years [...] on filedocumented in this encounter Care Teams Autocad Detailer Relationship Specialty Start Date End Date Archie Finch MD [address] [place] [address] [place] [address] PCP - General Internal Medicine 07/08/19 08/11/23 Carmita Dietz, NGUYEN 300 [facility] [address] [place] [address] PCP - General Nurse Practitioner 08/12/23 documented as of this encounter Additional Source Comments The information contained in this document represents components of the legal health record. It is not the complete legal health record.[facility]
--- OUTSIDE RECORDS SUMMARY | 2025-05-05 09:38 | XMS_ITS | Encounter Summary ---
Author Organization [facility] Address 399 [facility] [address] [place] [address] Phone Care Team Providers Care Analytics Leader Name Role Phone Damien Mgcrath MD Primary Care Provider Archie Flores MD Primary Care Provider [phone] Carmita Dietz NP Primary Care Provid er Encounter Details Date Type Department Care Team (Late st Contact Info) Description 03/02/2017 Ancillary Orders [facility] [address] [place] [address] Kash Sarabia MD [address] [place] [address] [place] [address] [email or web address] Social History Tobacco Use Types Packs/Day [...] on filedocumented in this encounter Care Teams Analytics Leader Relationship Specialty Start Date End Date Damien Mcgrath MD PCP - General 02/28/17 07/07/19 Archie Finch MD 300 [facility] [address] [place] [address] PCP - General Internal Medicine 07/08/19 08/11/23 Carmita Dietz NP [address] [place] [address] PCP - General Nurse Practitioner 08/12/23 documented as of this encounter Additional Source Comments The information contained in this document represents components of the legal health record. It is not the complete legal health record.[facility]
--- OUTSIDE RECORDS SUMMARY | 2025-05-05 09:38 | XMS_ITS | Encounter Summary ---
Author Organization [facility] Address [address] [place] [address] Phone Care Team Providers Care Sheet Mill Supervisor Name Role Phone Damien Mcgrath MD Primary Care Provider Archie Flores MD Primary Care Provider [phone] Carmita Dietz NP Primary Care Provid er Encounter Details Date Type Department Care Team (Latest Contact Info) Description 03/02/2017 Ancillary Orders [facility] 22 [facility] 3rd Floor, [address] [place] [address] Kash Sarabia MD [address] [place] [address] [email or web address] Diagnosis unknown Social History Tobacco [...] * DEVICE CHECK: PPM REMOTE INTERROGATION WITH COM WRITER REVIEW (04/15/2018 10:27 AM EST) Narrative Kash Canas, - 04/18/2018 9:58 AM EST Reason for appointment: Remote pacemaker interrogation HPI: Routine 3 month remote pacemaker interrogation. No device related complaints. Indication for device: CHB Examination: Device type: Pacemaker Photo Mask Cleaner: Medtronic Mode: DDD LRL/UPL: 60/130 bpm Mode [...] unknown documented in this encounter Care Teams Sheet Mill Supervisor Relationship Specialty Start Date End Date Damien Mcgrath MD PCP - General 02/28/17 07/07/19 Archie Finch MD [address] [place] [address] PCP - General Internal Medicine 07/08/19 08/11/23 Carmita Dietz NP [address] [place] [address] PCP - General Nurse Practitioner 08/12/23 documented as of this encounter Additional Source Comments The information contained in this document represents components of the legal health record. It is not the complete legal health record.[facility]
--- OUTSIDE RECORDS SUMMARY | 2025-05-05 09:38 | XMS_ITS | Clinical Summary ---
Author Organization [facility] Address [address] [place] [address] Phone Care Team Providers Care Central Sterile Technician Name Role Phone Unavailable Primary Care Provider Unavailabl e Encounters Date Type Department Care Team Description 05/04/2025 1:40 PM EST Hospital Encounter [facility] PET Scan [address] [place] [address] Solitary pulmonary nodule from Last 3 Months Social History Tobacco Use Types Packs/Day Years Used Date Smoking Tobacco: Never Assessed Comments Unknown Sex and Gender Information Value Date Recorded Sex Assigned at Not on file Legal Sex Female 12:01 AM EST Gender Identity Not on file Sexual Orientation Not on file Plan of Treatment Health Maintenance Due Date Last Done Comments Diabetes: Annual Foot Exam 12/07/1955 Diabetes: Annual Retina Eye Exam 12/07/1955 DTaP,Tdap,and Td Vaccines (1 - Tdap) 12/07/1962 Zoster Vaccines (1 of 2) 12/07/1993 RSV Immunization Adult Patients (1 - 1-dose 75+ series) 12/07/2018 Pneumococcal Vaccine: 50+ Years (2 of 2 - PCV) 04/12/2023 04/12/2022 Falls Risk Assessment 12/10/2023 Medicare Annual Wellness Visit 12/10/2023 Osteoporosis Screening (Bone Density Screening) 12/10/2023 Social Influencers of Health Screening 12/10/2023 Depression Screening 05/13/2024 COVID-19 Vaccine ( season) 2025 07/16/2020, 06/25/2020 Diabetes: Blood Sugar Control Test (HGBA1C) 05/04/2025 Diabetes: Annual GFR (Glomerular Filtration Rate) 04/16/2026 04/16/2025, 02/02/2021, 09/02/2020, Additional history exists Hypertension/CHF/CAD Annual BMP Blood Test 04/16/2026 04/16/2025, 02/02/2021, 09/02/2020, Additional history exists Diabetes: Annual Urine Albumin-Creatinine Ratio (uACR) 04/20/2026 04/20/2025, 02/02/2021, 09/06/2020, Additional history exists Cholesterol Screening (Lipid Panel) 04/16/2030 04/16/2025 Influenza Vaccine Completed 01/22/2025, , 03/05/2023, Additional history exists HIB Vaccines Aged Out No longer eligi [...] to complete this topic RSV Immunization Patients Under 20 months Aged Out No longer eligible based on patient's age to complete this topic Varicella Vaccines Aged Out No longer eligible based on patient's age to complete this topic Insurance [employer]
--- OUTSIDE RECORDS SUMMARY | 2025-05-05 09:38 | XMS_ITS | Encounter Summary ---
Author Organization [facility]erg[facility] Address [address] [facility] [address] [place] [address] Phone Care Team Providers Care Waterproof Coating Machine Tender Name Role Phone Damien Mcgrath MD Primary Care Provider Archie Flores MD Primary Care Provider [phone] Carmita Dietz NP Primary Care Provid er Encounter Details Date Type Department Care Team (Late st Contact Info) Description 09/30/2018 Ancillary Orders Merged With [facility] [address] [place] [address] Kash Sarabia MD [address] [place] [address] [place] [address] [email or web address] Social History Tobacco Use Types Packs/Day [...] on filedocumented in this encounter Care Teams Waterproof Coating Machine Tender Relationship Specialty Start Date End Date Damien Mcgrath MD PCP - General 02/28/17 07/07/19 Archie Finch MD [address] [facility] [address] [place] [id number] PCP - General Internal Medicine 07/08/19 08/11/23 Carmita Dietz NP [address] [place] [address] PCP - General Nurse Practitioner 08/12/23 documented as of this encounter Additional Source Comments The information contained in this document represents components of the legal health record. It is not the complete legal health record.[facility]
--- OUTSIDE RECORDS SUMMARY | 2025-05-05 09:39 | XMS_ITS | Patient Health Record ---
Author Organization [facility] Address [address] [place] [address] Care Team Providers Care Lodging Facilities Manager Name Role Phone Carmita Dietz N.P Primary Care Provider Un available Cash Mercado Unavailable [phone] Allergies Allergen (clinical drug ingredient) Drug/Non Drug Allergy documented on EMR Reaction Allergy Type Onset Date Status angiotensin-converting enzyme inhibitor (FN) EMELIA Inhibitors Unknown Drug Allergy Acti ve Results Component Value Reference Range Flag Notes Ferritin Reviewed date:03/10/2025 01:34:43 AM Interpretation: Performing Lab:[facility], [address] [place] [phone] Notes/Report: Ferritin 17 10-250 ng/mL N Vitamin B12 and Folate Reviewed date:03/10/2025 01:34:33 AM Interpretation: Performing Lab:[facility], [address] [place] [phone] Notes/Report: Vitamin B12 831 200-900 pg/mL N NORMAL 200-900 PG/ML INDETERMINATE 160-199 PG/ML DEFICIENT < 160 PG/ML Folate 6.0 > or = 4.0 ng/mL Reference Values: > or = 4.0 ng/mL < 4.0 ng/mL suggests folate deficiency Methotrexate, aminopterin and folinic acid (leucovorin) are chemotherapeutic agents whose molecular structures are similar to folate; therefore, the Cosmetic Surgeon folate assay cannot be used for patients using these drugs. Transglutaminase Ab IgG Reviewed date:03/15/2025 11:22:01 PM Interpretation: Performing Lab:[facility], [address] [place] [phone] Notes/Report: Transglutaminase Ab IgG <1.0 N Value Interpretation ----- <15.0 Antibody not detected > or = 15.0 Antibody detected THIS TEST WAS PERFORMED AT: [facility] [address] [place] [phone] MEDHAT GAINES MD Transglutaminase IgA Reviewed date:03/15/2025 11:22:12 PM Interpretation: Performing Lab:[address] [phone] Notes/Report: Transglutaminase IgA <1.0 N Value Interpretation ----- <15.0 Antibody not detected > or = 15.0 Antibody detected THIS TEST WAS PERFORMED AT: [facility] [address] [place] [phone] MEDHAT GAINSE MD Gliadin Ab Panel Reviewed date:03/15/2025 11:22:28 PM Interpretation: Performing Lab:[facility], [address] [place] [phone] Notes/Report: Gliadin Deamidated IgA Ab <1.0 N Value Interpretation ----- <15.0 Antibody not detected > or = 15.0 Antibody detected Gliadin Deamidated IgG Ab <1.0 N Value Interpretation ----- <15.0 Antibody not detected > or = 15.0 Antibody detected THIS TEST WAS PERFORMED AT: [facility] [address] [place] [phone] MEDHAT GAINES MD Endomysial IgA rflx Titer Reviewed date:03/15/2025 06:07:01 PM Interpretation: Performing Lab:[address] [phone] Notes/Report: Endomysial IgA Antibody Negative Negative THIS TEST WAS PERFORMED AT: [facility] [address] [place] [address] JOSE C DOWNS MD,PHD Endomysial Titer TNP Complete Blood Count Auto Di ff Reviewed date:03/30/2025 10:01:01 PM Interpretation: Performing Lab:[facility], [address] [place] [phone] Notes/Report: White Blood Count 9.7 4.8-10.8 X10*3/uL [...] Panel Reviewed date:03/09/2025 05:57:20 PM Interpretation: Performing Lab:[facility], [address] [place] [phone] Notes/Report: Bilirubin Total 0.4 0.0-1.0 mg/dL N Bilirubin Direct 0.1 0.0-0.5 mg/dL N Aspartate Amino Transferase 26 5-31 U/L N Alanine Aminotransferase 14 0-31 U/L N Total Protein 7.5 6.5-8.0 g/dL N Albumin Level 4.6 3.5-5.0 g/dL N Alkaline Phosphatase 81 39-117 U/L N Basic Metabolic Panel Reviewed date:03/10/2025 01:34:23 AM Interpretation: Performing Lab:[facility], [address] [place] [phone] Notes/Report: Sodium 142 135-145 mmol/L N Potassium [...] PROFILE Reviewed date:03/30/2025 10:00:21 PM Interpretation: Performing Lab:[address] [phone] Notes/Report: Iron 45 30-160 mcg/dL N Total [...] Capsule as directed Orally Active Biotin Maximum 39929 MCG Tablet Disintegrating as directed Orally Active [...] Info Options Details Miscellaneous: Marital status: 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 Section Notes: Nonsmoker; no sig alcohol Nonsmoker; no sig alcohol Nonsmoker; no sig alcohol Nonsmoker; no sig alcohol Nonsmoker; no sig alcohol Problems Problem Type SNOMED Code ICD Code Onset Dates Problem Status W/U Status Risk Notes Problem Epigastric pain (66476874) Epigastric pain (R10.13) Active confirmed Problem Screening for malignant neoplasm of colon (470853580) Encounter for screening for malignant neoplasm of colon (Z12.11) Active confirmed Problem History of adenomatous polyp of colon (243762457) History of adenomatous polyp of colon (Z86.010) Active confirmed Problem Ulcer of esophagus (20063474) Ulcer of esophagus without bleeding (K22.10) Active confirmed Problem Diverticular disease of colon (369512745) Diverticulosis of large intestine without perforation or abscess without bleeding (K57.30) Active confirmed Problem Nausea (655605313) Nausea (R11.0) Active confir med Problem Early satiety (984342658) Early satiety (R68.81) Active confirmed Problem Iron deficiency anemia (84415088) Iron deficiency anemia (D50.9) Active confirmed Problem Gastroesophageal reflux disease without esophagitis (700974522) Gastroesophageal reflux disease without esophagitis (K21.9) Active confirmed Problem Hiatal hernia (49218589) Hiatal hernia (K44.9) Active confirmed Problem Chronic gastritis (3869663) Gastritis, chronic (K29.50) Active confirmed Problem Computed tomography result abnormal (503274852) Abnormal CT scan, colon (R93.3) Active confirmed Problem Erosive esophagitis (08884121) Erosive esophagitis (K22.10) Active confirmed Problem Irregular bowel habits (314147291) Irregular bowel habits (R19.8) Active confirmed Problem Incontinence of feces (95138976) Incontinence of feces, unspecified fecal incontinence type (R15.9) Active confirmed Problem Diaphragmatic hernia (23977717) Hernia, hiatal (K44.9) Active confirmed Problem Gastroesophageal reflux disease (disorder) (955566822) Chronic GERD (K21.9) Active confirmed Vital Signs Temperature 97.2 degrees Fahrenheit 03/09/2025 Blood pressure diastolic 01 mm Hg 03/09/2025 Height 62.50 in 03/09/2025 Blood pressure systolic 001 mm Hg 03/09/2025 Weight 210.2 lbs 03/09/2025 BMI 37.83 kg/m2 03/09/2025 Encounters Encounter Location Date Provider Diagnosis [facility] [address] [place] [phone] 03/09/2025 Cash Mercado Nausea R11.0 ; Iron deficiency anemia D50.9 and Early satiety R68.81 [facility] [address] [place] [phone] 03/30/2025 Cash Mercado Assessments Encounter Date Diagnosis [...] Provider Name:Cash Mercado , 06/01/2025 03:00:00 PM, [address] [place] [address], [address], [place], [address], Insurance Providers Payer Name Payer Address Payer Phone Subscriber Number Group Number Insured Name Patient Relationship to Insured Coverage Start Date Coverage End Date [facility] [address] [place] [phone] [id number] ANNETTA DE LUNA Self - patient is the insured Medical (General) History Medical History History ICD Code NIDDM Hyperlipidemia Hypertension Pacemaker-sees Dr. Patel Arthritis Denies HI,CVA,Lung disease,renal disease Urinary incontinence-mild [...]
--- OUTSIDE RECORDS SUMMARY | 2025-05-05 09:39 | XMS_ITS | Clinical Summary ---
Author Organization [facility] Address [address] [address] Phone Care Team Providers Care Development Chemist Name Role Phone Carmita Dietz NP Primary [...] this topic Medical Devices Implanted Type Area Reflector Driller And Deburrer Device Identifier Shelf Expiration Date Model / Serial / Lot Medtronic Pacemaker Device Pacemaker Gayle Mill Xt Dr Chamberlain - [id number] Implanted:Qty : 1 on 12/25/2023 by Grover Infante MD at [facility] Pacemaker Left: Chest [employer] [facility] [id number] 05/26/2025 [id number] / [id number] / Procedures Procedure Name Priority Date/Time [...] Creatinine, Urine 92 mg/dL 04/20/2025 12:19 PM [facility] Microalbumin, Urine <1.2 <2.0 mg/dL 04/20/2025 12:19 PM [facility] MALB/CRE 04/20/2025 12:19 PM [facility] Comment:Unable to calculate. Urine (Urine, Voided) Non-Blood Collection / Unknown 04/20/2025 8:30 AM EST 04/20/2025 10:11 AM EST [facility] - 04/20/2025 12:19 PM EST The reference interval(s) are unavailable for this specimen type. Comparison of this result with other laboratory results, such as the concentration in the blood, serum, or plasma, is recommended. The test result should be integrated into the clinical context for interpretation. Jamaal Ham MD LAB URINE ORDERABLES Final R esult [address] [address] * (ABNORMAL) Comprehensive Metabolic Panel (CMP) (04/16/2025 3:21 PM EST) Sodium 137 136 - 145 mmol/L 04/16/2025 8:43 PM [facility] Potassium 4.1 3.4 - 5.1 mmol/L 04/16/2025 8:43 PM [facility] Chloride 96(L) 98 - 107 mmol/L 04/16/2025 8:43 PM [facility] CO2 25 20 - 31 mmol/L 04/16/2025 8:43 PM [facility] BUN 25(H) 6 - 23 mg/dL 04/16/2025 8:43 PM [facility] Creatinine 1.70(H) 0.50 - 1.00 mg/dL 04/16/2025 8:43 PM [facility] Glucose 140(H) 70 - 99 mg/dL 04/16/2025 8:43 PM [facility] Calcium 10.8(H) 8.5 - 10.5 mg/dL 04/16/2025 8:43 PM EST [facility] AST 17 <33 U/L 04/16/2025 8:43 PM [facility] ALT 6 <34 U/L 04/16/2025 8:43 PM [facility] Alkaline Phosphatase 79 40 - 130 U/L 04/16/2025 8:43 PM [facility] Bilirubin, Total 0.3 0.0 - 1.2 mg/dL 04/16/2025 8:43 PM [facility] Total Protein 7.1 6.4 - 8.3 g/dL 04/16/2025 8:43 PM [facility] Albumin 4.3 3.5 - 5.2 g/dL 04/16/2025 8:43 PM [facility] Globulin 2.8 1.9 - 4.1 g/dL 04/16/2025 8:43 PM [facility] eGFR 30(L) >59 mL/min/1.7 3m2 04/16/2025 8:43 PM [facility] Comment:Estimated glomerular filtration rate calculated using the CKD-EPI refit equation. Anion Gap 16 3 - 17 mmol/L 04/16/2025 8:43 PM [facility] Blood (Blood) Venipuncture / Unknown 04/16/2025 3:21 PM EST 04/16/2025 3:21 PM EST us Jamaal Ham MD LAB BLOOD BKR ORDERABLES Fin al Result [facility] [address] [place] [address] * (ABNORMAL) Beta-CrossLaps (B-Ctx) (04/16/2025 3:21 PM EST) Beta-CrossLaps (B-CTx), S 1272(H) pg/mL 04/20/2025 7:16 PM EST [facility] [employer] Comment: REFERENCE VALUE 148-967 (18-29 y) 150-635 (30-39 y) 131-670 (40-49 y) 183-1060 (50-59 y) 171-970 (60-69 y) 152-858 (>70 y) 136-689 (Premenopausal) 177-1015 (Postmenopausal) Flagging is based on the age-specific reference interval and not menopausal status. Blood (Blood) Venipuncture / Unknown 04/16/2025 3:21 PM EST 04/16/2025 3:21 PM EST Jamaal Ham MD LAB BLOOD BKR ORDERABLES Fin al Result [facility] [address] [phone] * 25-OH Vitamin D (04/16/2025 3:21 PM EST) 25-OH Vitamin D, Total 36 20 - 50 ng/mL 04/16/2025 5:50 PM EST [facility] Comment: Severe deficiency: <10 ng/mL Mild to moderate deficiency: 10-19 ng/mL Optimum levels: 20-50 ng/mL Increased risk of hypercalciuria: 51-80 ng/mL Possible toxicity: >80 ng/mL Blood (Blood) Venipuncture / Unknown 04/16/2025 3:21 PM EST 04/16/2025 3:21 PM EST Jamaal Ham MD LAB BLOOD BKR ORDERABLES Fin al Result [facility] [address] [place] [address] * Thyroid Stimulating Hormone (TSH) (04/16/2025 3:21 PM EST) TSH 1.35 0.40 - 7.50 uIU/mL 04/16/2025 6:18 PM EST [facility] Blood (Blood) Venipuncture / Unknown 04/16/2025 3:21 PM EST 04/16/2025 3:21 PM EST Jamaal Ham MD LAB BLOOD BKR ORDERABLES Fin al Result Performing Organization Address [facility]/ZIP Co de Phone Number [address] [address] * T4, Free (04/16/2025 3:21 PM EST) T4, Free 1.7 0.9 - 1.8 ng/dL 04/16/2025 6:18 PM EST [facility] Blood (Blood) Venipuncture / Unknown 04/16/2025 3:21 PM EST 04/16/2025 3:21 PM EST Jamaal Ham MD LAB BLOOD BKR ORDERABLES Fin al Result Performing Organization Address [facility] Co de Phone Number [address] [address] * Phosphorus (04/16/2025 3:21 PM EST) Phosphorus 2.9 2.5 - 4.5 mg/dL 04/16/2025 8:43 PM EST [facility] Blood (Blood) Venipuncture / Unknown 04/16/2025 3:21 PM EST 04/16/2025 3:21 PM EST Jamaal Ham MD LAB BLOOD BKR ORDERABLES Fin al Result Performing Organization Address [facility] Co de Phone Number [address] [address] * (ABNORMAL) Parathyroid Hormone (PTH) (04/16/2025 3:21 PM EST) Parathyroid Hormone (PTH) 185(H) 15 - 65 pg/mL 04/16/2025 5:50 PM EST [facility] Blood (Blood) Venipuncture / Unknown 04/16/2025 3:21 PM EST 04/16/2025 3:21 PM EST Jamaal Ham MD LAB BLOOD BKR ORDERABLES Fin al Result Performing Organization Address [facility] Co de Phone Number [address] [address] * Magnesium (04/16/2025 3:21 PM EST) Magnesium 2.1 1.7 - 2.6 mg/dL 04/16/2025 8:43 PM [facility] Blood (Blood) Venipuncture / Unknown 04/16/2025 3:21 PM EST 04/16/2025 3:21 PM EST Jamaal Ham MD LAB BLOOD BKR ORDERABLES Fin al Result Performing Organization Address [facility] de Phone Number [address] [address] * (ABNORMAL) Hemoglobin A1c (04/16/2025 3:21 PM EST) Hemoglobin A1c 6.4(H) 4.3 - 5.6 % 04/16/2025 5:34 PM [facility] Calculated Mean Blood Glucose 137 mg/dL 04/16/2025 5:34 PM [facility] Comment:There is no establis [facility] normal range for the Estimated Average [...] ORDERABLES Fin al Result Performing Organization Address [facility] Co de Phone Number [address] [address] * (ABNORMAL) Lipid Panel (04/16/2025 3:21 PM EST) Cholesterol 134 <200 mg/dL 04/16/2025 8:43 PM [facility] HDL 48 >=40 mg/dL 04/16/2025 8:43 PM [facility] Calculated LDL 48 <130 mg/dL 04/16/2025 8:43 PM [facility] Comment:LDL is calculated us ing the Monsalve-NIH equation ([employer]YRA Cardiol. 2019September 10;5(5):540-548). Non-HDL Cholesterol 86 mg/dL 04/16/2025 8:43 PM [facility] Comment:Guidelines suggest a non-HDL cholesterol goal 30 mg/dL higher than the patient-specific LDL cholesterol goal. Cardiac Risk Ratio 2.8 0.0 - 5.0 2024 8:43 PM [facility] Triglycerides 246(H) <=150 mg/dL 04/16/2025 8:43 PM [facility] Blood (Blood) Venipuncture / Unknown 04/16/2025 3:21 PM EST 04/16/2025 3:21 PM EST us Jamaal Ham MD LAB BLOOD BKR ORDERABLES Fin al Result Performing Organization Address [facility]/ZIP Co de Phone Number [address] [address] from Last 3 Months Insurance [employer] POS PPO REPLACEMENT [employer] PPO REPLACEMENT [employer] [employer] PPO REPLACEMENT [employer] [employer] PPO REPLACEMENT [employer] [place] [employer] PPO REPLACEMENT [employer] [place] [employer] PPO REPLACEMENT Advance Directives For more information, please contact: [phone] (9AM - 5PM [facility], Saturday-Saturday) * Full Code (Latest Code Status on File) Date Activated Date Inactivated Comments 12/25/2023 11:58 AM Question Answer Comments Code Status Confirmed With: Patient Care Teams Development Chemist Relationship Specialty Start Date End Date Carmita Dietz NP [address] [place] [address] PCP - General Nurse Practitioner 08/12/23 Additional Source Comments The information contained in this document represents components of the legal health record. It is not the complete legal health record.[facility]
== END 2025-05-05 10:21 | disposition home or self-care (01) ==
LOC: HO.HCS 09:36
PROVIDERS: PCP Nurse Practitioner Primary Care; Visit Provider Internal Medicine
DX: I42.9 Cardiomyopathy, unspecified (principal); Z95.0 Presence of cardiac pacemaker; I49.3 Ventricular premature depolarization; I10 Essential (primary) hypertension; E11.8 Type 2 diabetes mellitus with unspecified complications; R91.8 Other nonspecific abnormal finding of lung field
CPT/HCPCS: 93010; 99215; G2211

== ENCOUNTER → 2025-05-05 09:35 | Outpatient (BNVA) | payer MEDICARE, SELFPAY | PROVIDERS: PCP Nurse Practitioner Primary Care; Visit Provider Internal Medicine | DX: I49.3 Ventricular premature depolarization (principal); I42.9 Cardiomyopathy, unspecified; I10 Essential (primary) hypertension; E11.8 Type 2 diabetes mellitus with unspecified complications; R91.8 Other nonspecific abnormal finding of lung field; Z95.0 Presence of cardiac pacemaker; Z79.899 Other long term (current) drug therapy | CPT/HCPCS: 93005; 99212 ==

== ENCOUNTER 2025-05-10 10:31 | Outpatient (AMB) | payer MEDICARE, SELFPAY ==
--- OUTSIDE RECORDS SUMMARY | 2020-02-16 10:20 | XMS_ITS | Encounter Summary ---
Author Organization [facility] Address [address] [facility] [address] [place] [address] Phone Care Team Providers Care Recycling Sorter Name Role Phone Archie Finch MD Primary Care Provider +1 -[phone] Encounter Details Date Type Department Care Team (Late st Contact Info) Description 02/16/2020 11:20 AM EDT Hospital Encounter [facility] [address] [place] [address] Christine Lemos CNP 12 [place], [place] [phone] [email or web address] Social History Tobacco Use Types Packs/Day Years [...] Laterality Modality Ankle Right, Foot Right [facility] 02/16/2020 11:3 6 AM EDT Impressions 02/16/2020 11:38 AM EDT Pronounced Achilles enthesopathy and distal tendon calcification with overlying soft tissue swelling but without acute bony pathology apparent. POS - [id number] Narrative 02/16/2020 11:38 AM EDT COMPARISON: None [...] but without acute bony pathologyapparent. POS - [id number] Christine Lemos INSPECTOR COLD WORKING IMG XR LOWER EXTREMITY Mae l Result documented in this encounter Visit Diagnoses Not on filedocumented in this encounter Care Teams Recycling Sorter Relationship Specialty Start Date End Date Archie Finch MD [address] [place] [address] PCP - General Internal Medicine 07/08/19 08/11/23 documented as of this encounter Additional Source Comments The information contained in this document represents components of the legal health record. It is not the complete legal health record.[facility]
--- OUTSIDE RECORDS SUMMARY | 2020-04-18 11:37 | XMS_ITS | Encounter Summary ---
Author Organization [facility] Address [address] [facility] [address] [place] [address] Phone Care Team Providers Care Mold Finisher Name Role Phone Archie Finch MD Primary Care Provider +1 -[phone] Encounter Details Date Type Department Care Team (Late st Contact Info) Description 04/18/2020 11:37 AM EST Hospital Encounter [facility] [address] [place] [address] Christine Lemos CNP 12 [place], [place] [phone] [email or web address] Social History Tobacco Use Types Packs/Day [...] fracture bone scintigraphy could be considered. POS [id number] Narrative 04/18/2020 11:55 AM EST COMPARISON: None [...] fracture bone scintigraphy could be considered. POS [id number] Christine Lemos DOCUMENT CONTROL ASSOCIATE IMG XR CHEST Final Resul t documented in this encounter Visit Diagnoses Not on filedocumented in this encounter Care Teams Mold Finisher Relationship Specialty Start Date End Date Archie Finch MD 300 [facility] [address] [place] [address] PCP - General Internal Medicine 07/08/19 08/11/23 documented as of this encounter Additional Source Comments The information contained in this document represents components of the legal health record. It is not the complete legal health record.[facility]
--- OUTSIDE RECORDS SUMMARY | 2020-11-14 09:15 | XMS_ITS | Encounter Summary ---
Author Organization [facility] Address [address] [facility] [address] [place] [address] Phone Care Team Providers Care Technical Account Executive Name Role Phone Archie Finch MD Primary Care Provider +1 [phone] Encounter Details Date Type Department Care Team (Late st Contact Info) Description 11/14/2020 10:15 AM EDT Hospital Encounter [facility] [address] [place] [address] Shakila Duff FNP [address] [place], [place] [id number] [email or web address] Social History Tobacco Use Types Packs/Day Years [...] Name Priority Date/Time Associated Diagnosis Comments XR ANKLE 3 OR MORE VIEWS (LEFT) Urgent/patient waiting 11/14/2020 10:23 AM EDT Calcific Achilles tendonitis documented in this encounter Results * XR ANKLE 3 OR MORE VIEWS (LEFT) (11/14/2020 10:23 AM EDT) Anatomical Region Laterality Modality Ankle Left Computed Radiogr aphy 11/14/2020 10:3 1 AM EDT Impressions 11/14/2020 10:33 AM EDT No fracture or dislocation. Narrative 11/14/2020 10:33 AM EDT XR ANKLE 3 OR MORE VIEWS (LEFT) COMPARISON: None. FINDINGS: No fracture. Normal alignment. Symmetric ankle mortise. Mild hypertrophic change at the medial malleolus. Achilles marked enthesopathy and large plantar spur. Calcifications along the plantar fascia and Achilles tendon. Procedure Note Stevie Samano MD, MPH - 11/14/2020 XR ANKLE 3 OR MORE VIEWS (LEFT) COMPARISON: None. FINDINGS: No fracture. Normal alignment. Symmetric ankle mortise. Mild hypertrophicchange at the medial malleolus. Achilles marked enthesopathy and largeplantar spur. Calcifications along the plantar fascia and Achillestendon. IMPRESSION: No fracture or dislocation. Shakila Duff VISUAL LEAD IMG XR LOWER EXTREMITY Mae l Result documented in this encounter Visit Diagnoses Not on filedocumented in this encounter Care Teams Technical Account Executive Relationship Specialty Start Date End Date Archie Finch MD [address] [place] [address] PCP - General Internal Medicine 07/08/19 08/11/23 documented as of this encounter Additional Source Comments The information contained in this document represents components of the legal health record. It is not the complete legal health record.[facility]
--- OUTSIDE RECORDS SUMMARY | 2022-05-23 11:49 | XMS_ITS | Encounter Summary ---
Author Organization [facility] Address [address] [facility] [address] [place] [address] Phone Care Team Providers Care Doors Prefitter Name Role Phone Archie Finch MD Primary Care Provider +1 -[phone] Encounter Details Date Type Department Care Team (Late st Contact Info) Description 05/23/2022 11:49 AM EST Hospital Encounter [facility] [address] [place] [address] Christine Lemos CNP [address] [place], [place] [phone] [email or web address] Social History Tobacco Use Types Packs/Day Years [...] No fracture or dislocation. Christine Coelho Aminta RN CARDIAC IMG XR LOWER EXTREMITY Mae l Result documented in this encounter Visit Diagnoses Not on filedocumented in this encounter Care Teams Doors Prefitter Relationship Specialty Start Date End Date Archie Finch MD [address] [place] [address] PCP - General Internal Medicine 07/08/19 08/11/23 documented as of this encounter Additional Source Comments The information contained in this document represents components of the legal health record. It is not the complete legal health record.[facility]
--- OUTSIDE RECORDS SUMMARY | 2023-09-01 09:37 | XMS_ITS | Encounter Summary ---
Author Organization [facility] Address [address] [place] [address] Phone Care Team Providers Care School Psychologist Assistant Name Role Phone Carmita Dietz NP Primary Care Provid er Encounter Details Date Type Department Care Team (Late st Contact Info) Description 09/01/2023 10:37 AM EDT Hospital Encounter [facility] [address] [place] [address] Shakila Duff FNP 12 [place] [address] [email or web address] Social History Tobacco Use Types Packs/Day [...] tissue swelling of the ankle. Shakila Duff BUNGHOLE BORER IMG XR LOWER EXTREMITY Mae l Result documented in this encounter Visit Diagnoses Not on filedocumented in this encounter Care Teams School Psychologist Assistant Relationship Specialty Start Date End Date Carmita Dietz NP [address] [place] [address] PCP - General Nurse Practitioner 08/12/23 documented as of this encounter Additional Source Comments The information contained in this document represents components of the legal health record. It is not the complete legal health record.[facility]
--- OUTSIDE RECORDS SUMMARY | 2023-09-01 09:37 | XMS_ITS | Encounter Summary ---
Author Organization [facility] Address [address] [place] [address] Phone Care Team Providers Care Certified Adaptive Physical Educator Name Role Phone Carmita Dietz NP Primary Care Provid er Encounter Details Date Type Department Care Team (Late st Contact Info) Description 09/01/2023 10:37 AM EDT Hospital Encounter [facility] [address] [place] [address] Shakila Duff FNP [address] [place] [address] CHIRAG@[email or web address] Social History Tobacco Use Types Packs/Day [...] tissue swelling of the ankle. Shakila Duff PHYS ASST IMG XR LOWER EXTREMITY Mae l Result documented in this encounter Visit Diagnoses Not on filedocumented in this encounter Care Teams Certified Adaptive Physical Educator Relationship Specialty Start Date End Date Carmita Dietz NP [address] [place] [address] PCP - General Nurse Practitioner 08/12/23 documented as of this encounter Additional Source Comments The information contained in this document represents components of the legal health record. It is not the complete legal health record.[facility]
--- OUTSIDE RECORDS SUMMARY | 2025-05-04 13:40 | XMS_ITS | Encounter Summary ---
Author Organization [facility] Address [address] [place] [phone] Care Team Providers Care Warehouse Order Filler Name Role Phone Unavailable Primary Care Provider Unavailabl e Reason for Referral * Imaging (Routine) - Pending Review Specialty Diagnoses / Procedures Referred By Austin hardin Referred To Contact Radiology Diagnoses Solitary pulmonary nodule Procedures PET CT Skull to Mid Thigh Initial Kirill Tamez MD [address] [place] [address] Phone: tel: [facility] Referral ID Status Reason Start Date Expiration Date V isits Requested Visits Authorized [id number] Pending Review 05/04/2025 05/04/2026 1 1 Reason for Visit * Imaging (Routine) - Pending Review Specialty Diagnoses / Procedures Referred By Austin hardin Referred To Contact Radiology Diagnoses Solitary pulmonary nodule Procedures PET CT Skull to Mid Thigh Initial Kirill Tamez MD [address] [place] [address] Phone: tel: [facility] Referral ID Status Reason Start Date Expiration Date V isits Requested Visits Authorized [id number] Pending Review 05/04/2025 05/04/2026 1 1 Encounter Details Date Type Department Care Team (Latest Contact Info) Description 05/04/2025 1:40 PM EST Hospital Encounter [facility] PET Scan [address] [place] [phone] Solitary pulmonary nodule Social History Tobacco Use [...] Procedure Name Priority Date/Time Associated Diagnosis Comments PET CT SKULL TO MID THIGH INITIAL Routine 05/04/2025 3:30 PM EST Solitary pulmonary nodule documented in this encounter Results * PET CT Skull to Mid Thigh Initial (05/04/2025 3:30 PM EST) Anatomical Region Laterality Modality Body Radiographic Shanda ging 05/10/2025 6:07 AM EST Impressions 05/10/2025 6:52 AM EST 1. FDG avid left lower lobe pulmonary mass suspicious for primary lung malignancy. No significant FDG avid lymphadenopathy. 2. Nonspecific activity along the left posterior elements at C4 which may correspond to uncovertebral arthropathy; underlying malignancy is not entirely excluded. Correlation with prior PET/CT is recommended. 3. Nonspecific mildly FDG avid subcutaneous soft tissue attenuation lesions along the anterior abdominal wall. Correlation with physical examination is recommended. Please note: The CT was acquired at a low radiation dose settings. The images are of nondiagnostic quality and used solely for purposes of attenuation correction and slice localization for the PET scan. If a diagnostic CT study is desired it must be ordered separately. -------- FINAL REPORT -------- Dictated By: Lyudmila Kitchen Dictated Date: 05/10/2025 06:07 ET Assigned Physician: Luydmila Kitchen Reviewed and Electronically Signed By: Lyudmila Kitchen Signed Date: 05/10/2025 06:52 ET Workstation ID: [id number] Transcribed By: Self Edit Transcribed Date: 05/10/2025 06:07 ET Narrative 05/10/2025 6:52 AM EST INDICATION: SOLITARY PULMONARY NODULE. According to the electronic medical record, outside chest CT demonstrated spiculated mass in the left lung base concerning for malignancy. Patient has history of outpatient PET/CT not available for review. TECHNIQUE: FDG PET-CT imaging was performed from the skull bases through the thighs in a single acquisition with data set reconstructed in axial, coronal, and sagittal planes at the computer workstation with fused data from both the PET imaging study and attenuation correction CT. The CT portion of the examination was done strictly for attenuation correction and is not a true diagnostic CT examination. DLP: 1455 mGy-cm Radiopharmaceutical: 11.2 mCi of F-18 FDG IV. Blood glucose: 114 mg/dl. COMPARISON: Outside chest CT April 2025 FINDINGS: HEAD AND NECK: No abnormal FDG activity. THORAX: FDG avid left lower lobe pulmonary mass SUV max 5.6. No significant FDG avid thoracic lymphadenopathy. For example right paratracheal and prevascular lymph nodes SUV max 1.5 (mediastinal blood pool SUV Max 3.3). Left-sided pacing device. Coronary artery calcifications. ABDOMEN/PELVIS: Nonspecific bowel activity. Diverticulosis. No significant FDG avid abdominal or pelvic lymphadenopathy. Nonspecific activity within the anal canal SUV Max 5.9. Low-attenuation lesions in both kidneys without significant FDG activity. Cholecystectomy. Fat-containing umbilical hernia. MUSCULOSKELETAL: Asymmetric activity along the left posterior elements at C4 which may correspond to uncovertebral arthropathy SUV max 5.3; underlying malignancy is not entirely excluded. Activity along both shoulder joints SUV Max 4.6 on the left and 3.8 on the right in keeping with degenerative changes. Nonspecific subcutaneous soft tissue attenuation lesions along the anterior abdominal wall measuring up to SUV Max 2.2. Procedure Note Lyudmila Kitchen MD - 05/10/2025 INDICATION: SOLITARY PULMONARY NODULE. According to the electronicmedical record, outside chest CT demonstrated spiculated mass in the leftlung base concerning for malignancy. Patient has history of outpatientPET/CT not available for review. TECHNIQUE: FDG PET-CT imaging was performed from the skull bases throughthe thighs in a single acquisition with data set reconstructed in axial,coronal, and sagittal planes at the computer workstation with fused datafrom both the PET imaging study and attenuation correction CT. The CTportion of the examination was done strictly for attenuation correctionand is not a true diagnostic CT examination. DLP: 1455 mGy-cm Radiopharmaceutical: 11.2 mCi of F-18 FDG IV. Blood glucose: 114 mg/dl. COMPARISON: Outside chest CT April 2025 FINDINGS: HEAD AND NECK: No abnormal FDG activity. THORAX: FDG avid left lower lobe pulmonary mass SUV max 5.6. No significant FDG avid thoracic lymphadenopathy. For example rightparatracheal and prevascular lymph nodes SUV max 1.5 (mediastinal bloodpool SUV Max 3.3). Left-sided pacing device. Coronary artery calcifications. ABDOMEN/PELVIS: Nonspecific bowel activity. Diverticulosis. Nosignificant FDG avid abdominal or pelvic lymphadenopathy. Nonspecificactivity within the anal canal SUV Max 5.9. Low-attenuation lesions in both kidneys without significant FDG activity.Cholecystectomy. Fat-containing umbilical hernia. MUSCULOSKELETAL: Asymmetric activity along the left posterior elements atC4 which may correspond to uncovertebral arthropathy SUV max 5.3;underlying malignancy is not entirely excluded. Activity along bothshoulder joints SUV Max 4.6 on the left and 3.8 on the right in keepingwith degenerative changes. Nonspecific subcutaneous soft tissue attenuation lesions along theanterior abdominal wall measuring up to SUV Max 2.2. IMPRESSION: 1. FDG avid left lower lobe pulmonary mass suspicious for primary lungmalignancy. No significant FDG avid lymphadenopathy. 2. Nonspecific activity along the left posterior elements at C4 which maycorrespond to uncovertebral arthropathy; underlying malignancy is notentirely excluded. Correlation with prior PET/CT is recommended. 3. Nonspecific mildly FDG avid subcutaneous soft tissue attenuationlesions along the anterior abdominal wall. Correlation with physicalexamination is recommended. Please note: The CT was acquired at a low radiation dose settings. The images are ofnondiagnostic quality and used solely for purposes of attenuationcorrection and slice localization for the PET scan. If a diagnostic CTstudy is desired it must be ordered separately. -------- FINAL REPORT -------- Dictated By: Lyudmila Kitchen Dictated Date: 05/10/2025 06:07 ET Assigned Physician: Lyudmila Kitchen Reviewed and Electronically Signed By: Lyudmila Kitchen Signed Date: 05/10/2025 06:52 ET Workstation ID: [id number] Transcribed By: Self Edit Transcribed Date: 05/10/2025 06:07 ET us [facility]ill [facility] Final Result documented in this encounter Visit Diagnoses Diagnosis Solitary pulmonary [...]
[2025-05-10 10:43] VITALS: BP 124/67; PULSE 69; O2SAT 96; BMI 34.6
--- NOTE | 2025-05-10 10:43 | A.OFFVIS_ITS ---
Vital Signs 05/10/25 10:43 Height 5 ft 2 in Weight 189 lb BMI 34.6 BP 124/67 Blood Pressure Location Lt brachial Position Sitting Pulse 69 Pulse Source Pulse Oximeter Pulse Oximetry (%) 96 Oxygen Delivery Method Room Air Intake Visit Reasons: Pulm Nodule/CT f/u Allergies EMELIA Inhibitors Adverse Reaction (Severe, Verified 05/10/25 10:52) Angioedema HPI HPI Pulm Nodule/CT f/u: Details: 79-year-old lady, lifetime nonsmoker, with no family history of lung disease, but family history of breast cancer recently admitted and treated for pancreatitis. On CT abdomen obtained to evaluate abdominal pain left basilar pulmonary nodule was noted. Dedicated CT chest did not demonstrate any other nodules. Patient denied unintended weight loss. Follow-up CT scan in April of 2025 showed growing left lower lobe nodule. PET scan was repeated that now showed activity in the left lower lobe nodule. Patient continues on CPAP therapy with good control of her sleep apnea symptoms. 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 Maternal Grandmother Breast cancer Social History Household Members: Spouse Housing: House Do you presently have visiting nurse or other home services: No Alcohol intake: current Alcohol intake frequency: holidays/special occasions only Patient Tobacco Use Status: Never used Tobacco Advance Directives Date on File: 08/13/23 service: No Review of Systems Const Denies daytime sleepiness, Denies excessive sweating, Denies fatigue, Denies fever(s), Denies lethargy, Denies malaise, Denies night sweats, Denies snoring and Denies weight loss Eyes Denies blurry vision and Denies itchy eyes ENT Denies nasal congestion, Denies post nasal drip, Denies sinus pain, Denies sinus pressure and Denies other ( Thrush) Card Denies chest pain, Denies pedal edema, Denies dyspnea, Denies orthopnea and Denies paroxysmal nocturnal dyspnea Resp Denies cough, Denies hemoptysis, Denies excessive phlegm production, Denies dyspnea, Denies snoring and Denies wheezing GI Denies abdominal pain and Denies heartburn Musc Denies myalgias, Denies arthralgias and Denies joint swelling Skin/Breast Denies rash Neuro Denies memory loss and Denies seizure-like activity Psych Denies abnormal sleep pattern, Denies anxiety and Denies memory loss Endo Denies excessive sweating, Denies fatigue and Denies heat intolerance Abe/Lymph Denies easy bruising Aller/Immun Denies itchy eyes, Denies seasonal rhinorrhea and Denies wheezing Physical Exam Vital Signs: Last Vital Signs Pulse 69 05/10/25 10:43 BP 124/67 05/10/25 10:43 Pulse Ox 96 05/10/25 10:43 Oxygen Delivery Method Room Air 05/10/25 10:43 BMI result Body Mass Index 34.6 Const General: no acute distress and alert Nutritional Appearance: not obese Orientation/consciousness: Other orientation findings ( oriented) HEENT Head: Yes atraumatic Eyes General: appearance normal, both eyes and all related structures Sclerae: sclerae normal EOM: EOMs intact bilaterally Neck Neck: Yes supple Lymphatic: no lymphadenopathy noted Resp Effort & Inspection: normal respiratory effort and no use of accessory muscles Auscultation: clear to auscultation bilaterally Cardio Rate: regular rate Rhythm: regular rhythm Heart sounds: no gallops, no murmurs and no rubs Skin General skin exam: other ( warm) Extrem General: No clubbing, No cyanosis and No edema Assessment & Plan Assessment & Plan (1) Lung mass: Code(s): R91.8 - Other nonspecific abnormal finding of lung field Category: Medical Plan: Now with increasing left lower lobe nodule that is also PET positive. Will request IR biopsy and PFT. (2) FAINA (obstructive sleep apnea): Code(s): G47.33 - Obstructive sleep apnea (adult) (pediatric) Category: Medical Plan: Controlled current CPAP therapy. Continue CPAP therapy. Orders: Orders CT biopsy lung LT Today R91.8 - Other nonspecific abnormal finding of lung field PFT pulmonary function test Today R91.8 - Other nonspecific abnormal finding of lung field Coding Level of Care Code Est Pt Level 4 (80015) Diagnoses Lung mass R91.8 FAINA (obstructive sleep apnea) G47.33
--- OUTSIDE RECORDS SUMMARY | 2025-05-10 11:58 | XMS_ITS | Encounter Summary ---
Author Organization [facility] Address [address] [facility] [address] [place] [address] Phone Care Team Providers Care Chief Specialist Leed Name Role Phone Damien Mcgrath MD Primary Care Provider Archie Flores MD Primary Care Provider [phone] Carmita Dietz NP Primary Care Provid er Encounter Details Date Type Department Care Team (Late st Contact Info) Description 09/30/2018 Ancillary Orders [facility] [address] [place] [address] Kash Sarabia MD [address] [place] [address] [email or web address] Heart block Social History Tobacco Use [...] disorder documented in this encounter Care Teams Chief Specialist Leed Relationship Specialty Start Date End Date Damien Mcgrath MD PCP - General 02/28/17 07/07/19 Archie Finch MD [address] [address] PCP - General Internal Medicine 07/08/19 08/11/23 Carmita Dietz NP [address] [place] [address] PCP - General Nurse Practitioner 08/12/23 documented as of this encounter Additional Source Comments The information contained in this document represents components of the legal health record. It is not the complete legal health record.[facility]
--- OUTSIDE RECORDS SUMMARY | 2025-05-10 11:58 | XMS_ITS | Encounter Summary ---
Author Organization [facility] Address 399 [facility] [address] [place] [address] Phone Care Team Providers Care Donor Recruiter Name Role Phone Damien Mcgrath MD Primary Care Provider Archie Flores MD Primary Care Provider [phone] Carmita Dietz NP Primary Care Provid er Encounter Details Date Type Department Care Team (Late st Contact Info) Description 03/02/2017 Ancillary Orders [facility] [address] [place] [address] Kash Sarabia MD [address] [place] [address] [place] [address] [email or web address] Social History Tobacco Use Types Packs/Day Years [...] on filedocumented in this encounter Care Teams Donor Recruiter Relationship Specialty Start Date End Date Damien Mcgrath MD PCP - General 02/28/17 07/07/19 Archie Finch MD [address] [facility] [address] [place] [address] PCP - General Internal Medicine 07/08/19 08/11/23 Carmita Dietz NP [address] [place] [address] PCP - General Nurse Practitioner 08/12/23 documented as of this encounter Additional Source Comments The information contained in this document represents components of the legal health record. It is not the complete legal health record.[facility]
--- OUTSIDE RECORDS SUMMARY | 2025-05-10 11:58 | XMS_ITS | Encounter Summary ---
Author Organization [facility] Address 399 [facility] [address] [place] [address] Phone Care Team Providers Care Sofa Inspector Name Role Phone Damien Mcgrath MD Primary Care Provider Archie Flores MD Primary Care Provider [phone] Carmita Dietz NP Primary Care Provid er Encounter Details Date Type Department Care Team (Late st Contact Info) Description 09/30/2018 Ancillary Orders [facility] [address] [place] [address] Kash Sarabia MD [address] [place] [address] [place] [address] [email or web address] Social History Tobacco Use Types Packs/Day [...] on filedocumented in this encounter Care Teams Sofa Inspector Relationship Specialty Start Date End Date Damien Mcgrath MD PCP - General 02/28/17 07/07/19 Archie Finch MD [address] [facility] [address] [place] [address] PCP - General Internal Medicine 07/08/19 08/11/23 Carmita Dietz NP [address] [place] [address] PCP - General Nurse Practitioner 08/12/23 documented as of this encounter Additional Source Comments The information contained in this document represents components of the legal health record. It is not the complete legal health record.[facility]
--- OUTSIDE RECORDS SUMMARY | 2025-05-10 11:58 | XMS_ITS | Encounter Summary ---
Author Organization [facility] Address [address] [facility] [address] [place] [address] Phone Care Team Providers Care Data Migration Lead Name Role Phone Archie Finch MD Primary Care Provider [phone] Carmita Dietz NP Primary Care Provid er Encounter Details Date Type Department Care Team (Late st Contact Info) Description 04/14/2020 Procedure Pass [facility] [address] [place] [address] Social History Tobacco Use Types Packs/Day Years [...] on filedocumented in this encounter Care Teams Data Migration Lead Relationship Specialty Start Date End Date Archie Finch MD [address] [place] [address] [place] [address] PCP - General Internal Medicine 07/08/19 08/11/23 Carmita Dietz, NGUYEN [address] [facility] [address] [place] [address] PCP - General Nurse Practitioner 08/12/23 documented as of this encounter Additional Source Comments The information contained in this document represents components of the legal health record. It is not the complete legal health record.[facility]
--- OUTSIDE RECORDS SUMMARY | 2025-05-10 11:58 | XMS_ITS | Encounter Summary ---
Author Organization [facility] Address [address] [facility] [place] [address] Phone Care Team Providers Care Miller Supervisor Name Role Phone Damien Mcgrath MD Primary Care Provider Archie Flores MD Primary Care Provider [phone] Carmita Dietz NP Primary Care Provid er Encounter Details Date Type Department Care Team (Latest Contact Info) Description 03/02/2017 Ancillary Orders [facility] [address] [facility] 3rd Floor, [address] [place] [address] Kash Sarabia MD [address] [place] [address] [email or web address] Diagnosis unknown Social History Tobacco Use Types [...] * DEVICE CHECK: PPM REMOTE INTERROGATION WITH FUR PULLER REVIEW (04/15/2018 10:27 AM EST) Narrative Kash Canas, - 04/18/2018 9:58 AM EST Reason for appointment: Remote pacemaker interrogation HPI: Routine 3 month remote pacemaker interrogation. No device related complaints. Indication for device: CHB Examination: Device type: Pacemaker Sugar Laboratory Assistant: [employer] Mode: DDD LRL/UPL: 60/130 bpm Mode [...] unknown documented in this encounter Care Teams Miller Supervisor Relationship Specialty Start Date End Date Damien Mcgrath MD PCP - General 02/28/17 07/07/19 Archie Finch MD [address] [place] [address] PCP - General Internal Medicine 07/08/19 08/11/23 Carmita Dietz NP [address] [place] [address] PCP - General Nurse Practitioner 08/12/23 documented as of this encounter Additional Source Comments The information contained in this document represents components of the legal health record. It is not the complete legal health record.[facility]
--- OUTSIDE RECORDS SUMMARY | 2025-05-10 11:58 | XMS_ITS | Encounter Summary ---
Author Organization [facility] Address [address] [facility] [address] [place] [address] Phone Care Team Providers Care Ict Business Analyst Name Role Phone Damien Mcgrath MD Primary Care Provider Archie Flores MD Primary Care Provider [phone] Carmita Dietz NP Primary Care Provid er Encounter Details Date Type Department Care Team (Latest Contact Info) Description 10/29/2017 Transcribe Orders [facility] [address] [place] [address] Maryuri Torres PA [address] [place] [address] [address] Hypercalcemia (Primary Dx) Social History Tobacco Use [...] 8:37 AM EDT) COLLECTION DATA 24 HOUR [facility] TOTAL VOLUME 1,050 mL [facility] 10/29/2017 8:37 AM EDT 10/29/2017 8:40 AM EDT us Maryuri MARSHALL URINE ORDERABLES Mae l Result Performing Organization Address [facility]/ZIP Co de Phone Number [address] [address] * Phosphorus, 24 hr urine (10/29/2017 8:37 AM EDT) URINE PHOSPHORUS 50.8 mg/dL [facility] PHOSPHORUS OUTPUT 533.4 400 - 1,300 mg/total output [facility] Urine (Urine) 10/29/2017 8:3 7 AM EDT 10/29/2017 8:40 AM EDT us Maryuri MARSHALL URINE ORDERABLES Mae l Result [address] [address] * Creatinine, 24 hr urine (10/29/2017 8:37 AM EDT) URINE CREATININE 96 mg/dL [facility] CREATININE OUTPUT 1,008 600 - 1,800 mg/total output [facility] Urine (Urine) 10/29/2017 8:3 7 AM EDT 10/29/2017 8:40 AM EDT us Maryuri MARSHALL LAB URINE ORDERABLES Final Result Performing Organization Address City/[facility]/ZIP Co de Phone Number [address] [address] * (ABNORMAL) Calcium, 24 hour urine (10/29/2017 8:37 AM EDT) URINE CALCIUM 3.9 mg/dL [facility] CALCIUM OUTPUT 41(L) 100 - 300 mg/total output [facility] Urine (Urine) 10/29/2017 8: 37 AM EDT 10/29/2017 8:40 AM EDT us Maryuri MARSHALL URINE ORDERABLES Mae l Result Performing Organization Address [facility] Co de Phone Number [address] [address] * (ABNORMAL) Renal panel (10/29/2017 8:37 AM EDT) SODIUM 144 133 - 146 mmol/L [facility] POTASSIUM 4.9 3.3 - 5.1 mmol/L [facility] CHLORIDE 104 96 - 108 mmol/L [facility] CO2 26 21 - 35 mmol/L [facility] GLUCOSE 135(H) 70 - 99 mg/dL [facility] BUN 20(H) 6 - 19 mg/dL [facility] CREATININE 1.20 0.5 - 1.5 mg/dL [facility] CALCIUM 10.6(H) 8.4 - 10.3 mg/dL [facility] PHOSPHORUS 3.2 2.7 - 4.5 mg/dL [facility] ALBUMIN 3.9 3.9 - 4.8 g/dL [facility] EGFR 45(L) >59 mL/min/1.7 3m2 [facility] Comment:If patient is black, multiply result by 1.159. Estimated glomerular filtration rate calculated using the CKD-EPI equation. ANION GAP 19 10 - 20 mmol/L [facility] Blood 10/29/2017 8:37 AM EDT 10/29/2017 8:39 AM EDT us Maryuri Luna Brian MARSHALL LAB BLOOD BKR ORDERAB LES Final Result [facility] [address] [place], [place] [id number] documented in this encounter Visit Diagnoses Diagnosis Hypercalcemia- Primary documented in this encounter Care Teams Ict Business Analyst Relationship Specialty Start Date End Date Damien Mcgrath MD PCP - General 02/28/17 07/07/19 Archie Finch MD [address] [place] [address] PCP - General Internal Medicine 07/08/19 08/11/23 Carmita Dietz NP [address] [place] [address] PCP - General Nurse Practitioner 08/12/23 documented as of this encounter Additional Source Comments The information contained in this document represents components of the legal health record. It is not the complete legal health record.[facility]
--- OUTSIDE RECORDS SUMMARY | 2025-05-10 11:58 | XMS_ITS | Encounter Summary ---
Author Organization [facility] Address [address] [facility] [address] [place] [address] Phone Care Team Providers Care Tire Wrapper Name Role Phone Archie Finch MD Primary Care Provider [phone] Carmita Dietz NP Primary Care Provid er Encounter Details Date Type Department Care Team (Late st Contact Info) Description 03/12/2020 Procedure Pass [facility] [address] [place] [address] Social History Tobacco Use Types Packs/Day Years [...] on filedocumented in this encounter Care Teams Tire Wrapper Relationship Specialty Start Date End Date Archie Finch MD [address] [place] [address] [place] [address] PCP - General Internal Medicine 07/08/19 08/11/23 Carmita Dietz, NGUYEN [address] [facility] [address] [place] [address] PCP - General Nurse Practitioner 08/12/23 documented as of this encounter Additional Source Comments The information contained in this document represents components of the legal health record. It is not the complete legal health record.[facility]
--- OUTSIDE RECORDS SUMMARY | 2025-05-10 11:59 | XMS_ITS | Clinical Summary ---
Author Organization [facility] Address [address] [place] [address], [place] [address] Care Team Providers Care Configuration Management Architect Name Role Phone Carmita Dietz ALARM SERVICE TECHNICIAN-C Primary Care Provider + Allergies No [...] 1 (one) time each day Active Biotin 69764 MCG tablet dispersible Take by mouth Active [...] patient's age to complete this topic [place] [address] [facility] Health Care Teams Configuration Management Architect Relationship Specialty Start Date End Date Carmita Dietz NP-C [address], [address] [place] [address] PCP - General Nurse Practitioner 07/18/22
--- OUTSIDE RECORDS SUMMARY | 2025-05-10 11:59 | XMS_ITS | Clinical Summary ---
Author Organization [facility] Address [address] [address] Phone Care Team Providers Care Social Worker Clinical Name Role Phone Carmita Dietz NP Primary [...] this topic Medical Devices Implanted Type Area Interior Assemblies Developer Prover Device Identifier Shelf Expiration Date Model / Serial / Lot Medtronic Pacemaker Device Pacemaker Westby Xt Dr Chamberlain - [id number] Implanted:Qty : 1 on 12/25/2023 by Grover Infante MD at [facility] Pacemaker Left: Chest [employer] [facility] [id number] 05/26/2025 [id number] / [id number] / Procedures Procedure Name Priority Date/Time [...] Creatinine, Urine 92 mg/dL 04/20/2025 12:19 PM [facility] Microalbumin, Urine <1.2 <2.0 mg/dL 04/20/2025 12:19 PM [facility] [place] 04/20/2025 12:19 PM [facility] Comment:Unable to calculate. Urine (Urine, Voided) Non-Blood Collection / Unknown 04/20/2025 8:30 AM EST 04/20/2025 10:11 AM EST [facility] - 04/20/2025 12:19 PM EST The reference interval(s) are unavailable for this specimen type. Comparison of this result with other laboratory results, such as the concentration in the blood, serum, or plasma, is recommended. The test result should be integrated into the clinical context for interpretation. Jamaal Ham MD LAB URINE ORDERABLES Final R esult [address] [address] * (ABNORMAL) Comprehensive Metabolic Panel (CMP) (04/16/2025 3:21 PM EST) Sodium 137 136 - 145 mmol/L 04/16/2025 8:43 PM [facility] Potassium 4.1 3.4 - 5.1 mmol/L 04/16/2025 8:43 PM [facility] Chloride 96(L) 98 - 107 mmol/L 04/16/2025 8:43 PM [facility] CO2 25 20 - 31 mmol/L 04/16/2025 8:43 PM [facility] BUN 25(H) 6 - 23 mg/dL 04/16/2025 8:43 PM [facility] Creatinine 1.70(H) 0.50 - 1.00 mg/dL 04/16/2025 8:43 PM [facility] Glucose 140(H) 70 - 99 mg/dL 04/16/2025 8:43 PM [facility] Calcium 10.8(H) 8.5 - 10.5 mg/dL 04/16/2025 8:43 PM EST [facility] AST 17 <33 U/L 04/16/2025 8:43 PM [facility] ALT 6 <34 U/L 04/16/2025 8:43 PM [facility] Alkaline Phosphatase 79 40 - 130 U/L 04/16/2025 8:43 PM [facility] Bilirubin, Total 0.3 0.0 - 1.2 mg/dL 04/16/2025 8:43 PM [facility] Total Protein 7.1 6.4 - 8.3 g/dL 04/16/2025 8:43 PM [facility] Albumin 4.3 3.5 - 5.2 g/dL 04/16/2025 8:43 PM [facility] Globulin 2.8 1.9 - 4.1 g/dL 04/16/2025 8:43 PM [facility] eGFR 30(L) >59 mL/min/1.7 3m2 04/16/2025 8:43 PM [facility] Comment:Estimated glomerular filtration rate calculated using the CKD-EPI refit equation. Anion Gap 16 3 - 17 mmol/L 04/16/2025 8:43 PM [facility] Blood (Blood) Venipuncture / Unknown 04/16/2025 3:21 PM EST 04/16/2025 3:21 PM EST us Jamaal Ham MD LAB BLOOD BKR ORDERABLES Fin al Result [facility] [address] [place] [address] * (ABNORMAL) Beta-CrossLaps (B-Ctx) (04/16/2025 3:21 PM EST) Beta-CrossLaps (B-CTx), S 1272(H) pg/mL 04/20/2025 7:16 PM EST [facility] [employer] Comment: REFERENCE VALUE [phone] (18-29 y) 150-635 (30-39 y) 131-670 (40-49 y) 183-1060 (50-59 y) 171-970 (60-69 y) 152-858 (>70 y) 136-689 (Premenopausal) 177-1015 (Postmenopausal) Flagging is based on the age-specific reference interval and not menopausal status. Blood (Blood) Venipuncture / Unknown 04/16/2025 3:21 PM EST 04/16/2025 3:21 PM EST Jamaal Ham MD LAB BLOOD BKR ORDERABLES Fin al Result CHENG (BEAKER) [facility] [address] [phone] * 25-OH Vitamin D (04/16/2025 3:21 PM EST) 25-OH Vitamin D, Total 36 20 - 50 ng/mL 04/16/2025 5:50 PM EST [facility] Comment: Severe deficiency: <10 ng/mL Mild to moderate deficiency: 10-19 ng/mL Optimum levels: 20-50 ng/mL Increased risk of hypercalciuria: 51-80 ng/mL Possible toxicity: >80 ng/mL Blood (Blood) Venipuncture / Unknown 04/16/2025 3:21 PM EST 04/16/2025 3:21 PM EST Jamaal Ham MD LAB BLOOD BKR ORDERABLES Fin al Result [facility] [address] [place] [address] * Thyroid Stimulating Hormone (TSH) (04/16/2025 3:21 PM EST) TSH 1.35 0.40 - 7.50 uIU/mL 04/16/2025 6:18 PM EST [facility] Blood (Blood) Venipuncture / Unknown 04/16/2025 3:21 PM EST 04/16/2025 3:21 PM EST Jamaal Ham MD LAB BLOOD BKR ORDERABLES Fin al Result Performing Organization Address [facility]/ZIP Co de Phone Number [address] [address] * T4, Free (04/16/2025 3:21 PM EST) T4, Free 1.7 0.9 - 1.8 ng/dL 04/16/2025 6:18 PM EST [facility] Blood (Blood) Venipuncture / Unknown 04/16/2025 3:21 PM EST 04/16/2025 3:21 PM EST Jamaal Ham MD LAB BLOOD BKR ORDERABLES Fin al Result Performing Organization Address [facility] Co de Phone Number [address] [address] * Phosphorus (04/16/2025 3:21 PM EST) Phosphorus 2.9 2.5 - 4.5 mg/dL 04/16/2025 8:43 PM EST [facility] Blood (Blood) Venipuncture / Unknown 04/16/2025 3:21 PM EST 04/16/2025 3:21 PM EST Jamaal aHm MD LAB BLOOD BKR ORDERABLES Fin al Result Performing Organization Address [facility] Co de Phone Number [address] [address] * (ABNORMAL) Parathyroid Hormone (PTH) (04/16/2025 3:21 PM EST) Parathyroid Hormone (PTH) 185(H) 15 - 65 pg/mL 04/16/2025 5:50 PM EST [facility] Blood (Blood) Venipuncture / Unknown 04/16/2025 3:21 PM EST 04/16/2025 3:21 PM EST Jamaal Ham MD LAB BLOOD BKR ORDERABLES Fin al Result Performing Organization Address [facility] Co de Phone Number [address] [address] * Magnesium (04/16/2025 3:21 PM EST) Magnesium 2.1 1.7 - 2.6 mg/dL 04/16/2025 8:43 PM [facility] Blood (Blood) Venipuncture / Unknown 04/16/2025 3:21 PM EST 04/16/2025 3:21 PM EST Jamaal Ham MD LAB BLOOD BKR ORDERABLES Fin al Result Performing Organization Address [facility] de Phone Number [address] [address] * (ABNORMAL) Hemoglobin A1c (04/16/2025 3:21 PM EST) Hemoglobin A1c 6.4(H) 4.3 - 5.6 % 04/16/2025 5:34 PM [facility] Calculated Mean Blood Glucose 137 mg/dL 04/16/2025 5:34 PM [facility] Comment:[facility] is no [facility] normal range for the Estimated Average [...] ORDERABLES Fin al Result Performing Organization Address [facility] Co de Phone Number [address] [address] * (ABNORMAL) Lipid Panel (04/16/2025 3:21 PM EST) Cholesterol 134 <200 mg/dL 04/16/2025 8:43 PM [facility] HDL 48 >=40 mg/dL 04/16/2025 8:43 PM [facility] Calculated LDL 48 <130 mg/dL 04/16/2025 8:43 PM [facility] Comment:LDL is calculated us ing the Monsalve-NIH equation (MAYRA Cardiol. 2019September 10;5(5):540-548). Non-HDL Cholesterol 86 mg/dL 04/16/2025 8:43 PM [facility] Comment:Guidelines suggest a non-HDL cholesterol goal 30 mg/dL higher than the patient-specific LDL cholesterol goal. Cardiac Risk Ratio 2.8 0.0 - 5.0 2024 8:43 PM [facility] Triglycerides 246(H) <=150 mg/dL 04/16/2025 8:43 PM [facility] Blood (Blood) Venipuncture / Unknown 04/16/2025 3:21 PM EST 04/16/2025 3:21 PM EST us Jamaal Ham MD LAB BLOOD BKR ORDERABLES Fin al Result Performing Organization Address [facility]/ZIP Co de Phone Number [address] [address] from Last 3 Months Insurance [employer] [place] [employer] POS PPO REPLACEMENT [employer] [place] [employer] PPO REPLACEMENT [employer] [place] [employer] PPO REPLACEMENT [employer] [place] [employer] PPO REPLACEMENT [employer] [place] [employer] PPO REPLACEMENT [employer] [place] [employer] PPO REPLACEMENT Advance Directives For more information, please contact: [phone] (9AM - 5PM [facility], Saturday-Saturday) * Full Code (Latest Code Status on File) Date Activated Date Inactivated Comments 12/25/2023 11:58 AM Question Answer Comments Code Status Confirmed With: Patient Care Teams Social Worker Clinical Relationship Specialty Start Date End Date Carmita Dietz NP [address] [place] [address] PCP - General Nurse Practitioner 08/12/23 Additional Source Comments The information contained in this document represents components of the legal health record. It is not the complete legal health record.[facility]
--- OUTSIDE RECORDS SUMMARY | 2025-05-10 11:59 | XMS_ITS | Patient Health Record ---
Author Organization [facility] Address [address] [place] [address] Care Team Providers Care Bathhouse Keeper Name Role Phone Carmita Dietz N.P Primary Care Provider Un available Cash Mercado Unavailable [phone] Allergies Allergen (clinical drug ingredient) Drug/Non Drug Allergy documented on EMR Reaction Allergy Type Onset Date Status angiotensin-converting enzyme inhibitor (FN) EMELIA Inhibitors Unknown Drug Allergy Acti ve Results Component Value Reference Range Flag Notes Ferritin Reviewed date:03/10/2025 01:34:43 AM Interpretation: Performing Lab:[facility], [address] [place] [phone] Notes/Report: Ferritin 17 10-250 ng/mL N Vitamin B12 and Folate Reviewed date:03/10/2025 01:34:33 AM Interpretation: Performing Lab:[facility], [address] [place] [phone] Notes/Report: Vitamin B12 831 200-900 pg/mL N NORMAL 200-900 PG/ML INDETERMINATE 160-199 PG/ML DEFICIENT < 160 PG/ML Folate 6.0 > or = 4.0 ng/mL Reference Values: > or = 4.0 ng/mL < 4.0 ng/mL suggests folate deficiency Methotrexate, aminopterin and folinic acid (leucovorin) are chemotherapeutic agents whose molecular structures are similar to folate; therefore, the Rocket Motor Tester folate assay cannot be used for patients using these drugs. Transglutaminase Ab IgG Reviewed date:03/15/2025 11:22:01 PM Interpretation: Performing Lab:[facility], [address] [place] [phone] Notes/Report: Transglutaminase Ab IgG <1.0 N Value Interpretation ----- <15.0 Antibody not detected > or = 15.0 Antibody detected THIS TEST WAS PERFORMED AT: [employer] [address] [place] [phone] MEDHAT GAINES MD Transglutaminase IgA Reviewed date:03/15/2025 11:22:12 PM Interpretation: Performing Lab:[address] [phone] Notes/Report: Transglutaminase IgA <1.0 N Value Interpretation ----- <15.0 Antibody not detected > or = 15.0 Antibody detected THIS TEST WAS PERFORMED AT: [facility] [address] [place] [phone] MEDHAT GAINES MD Gliadin Ab Panel Reviewed date:03/15/2025 11:22:28 PM Interpretation: Performing Lab:[facility], [address] [place] [phone] Notes/Report: Gliadin Deamidated IgA Ab <1.0 N Value Interpretation ----- <15.0 Antibody not detected > or = 15.0 Antibody detected Gliadin Deamidated IgG Ab <1.0 N Value Interpretation ----- <15.0 Antibody not detected > or = 15.0 Antibody detected THIS TEST WAS PERFORMED AT: [facility] [address] [place] [phone] MEDHAT GAINES MD Endomysial IgA rflx Titer Reviewed date:03/15/2025 06:07:01 PM Interpretation: Performing Lab:[address] [address] Notes/Report: Endomysial IgA Antibody Negative Negative THIS TEST WAS PERFORMED AT: [employer]/[facility] [address] [place] [address] JOSE C DOWNS MD,PHD Endomysial Titer TNP Complete Blood Count Auto Di ff Reviewed date:03/30/2025 10:01:01 PM Interpretation: Performing Lab:[facility], [address] [place] [phone] Notes/Report: White Blood Count 9.7 4.8-10.8 X10*3/uL [...] Panel Reviewed date:03/09/2025 05:57:20 PM Interpretation: Performing Lab:[facility], [address] [place] [phone] Notes/Report: Bilirubin Total 0.4 0.0-1.0 mg/dL N Bilirubin Direct 0.1 0.0-0.5 mg/dL N Aspartate Amino Transferase 26 5-31 U/L N Alanine Aminotransferase 14 0-31 U/L N Total Protein 7.5 6.5-8.0 g/dL N Albumin Level 4.6 3.5-5.0 g/dL N Alkaline Phosphatase 81 39-117 U/L N Basic Metabolic Panel Reviewed date:03/10/2025 01:34:23 AM Interpretation: Performing Lab:[facility], [address] [place] [phone] Notes/Report: Sodium 142 135-145 mmol/L N Potassium [...] PROFILE Reviewed date:03/30/2025 10:00:21 PM Interpretation: Performing Lab:[address] [address] Notes/Report: Iron 45 30-160 mcg/dL N Total [...] Capsule as directed Orally Active Biotin Maximum [address] MCG Tablet Disintegrating as directed Orally Active [...] Info Options Details Miscellaneous: Marital status: 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 Section Notes: Nonsmoker; no sig alcohol Nonsmoker; no sig alcohol Nonsmoker; no sig alcohol Nonsmoker; no sig alcohol Nonsmoker; no sig alcohol Problems Problem Type SNOMED Code ICD Code Onset Dates Problem Status W/U Status Risk Notes Problem Epigastric pain (91167901) Epigastric pain (R10.13) Active confirmed Problem Screening for malignant neoplasm of colon (497437138) Encounter for screening for malignant neoplasm of colon (Z12.11) Active confirmed Problem History of adenomatous polyp of colon (757204556) History of adenomatous polyp of colon (Z86.010) Active confirmed Problem Ulcer of esophagus (73660648) Ulcer of esophagus without bleeding (K22.10) Active confirmed Problem Diverticular disease of colon (059533453) Diverticulosis of large intestine without perforation or abscess without bleeding (K57.30) Active confirmed Problem Nausea (602055004) Nausea (R11.0) Active confir med Problem Early satiety (779320786) Early satiety (R68.81) Active confirmed Problem Iron deficiency anemia (14371121) Iron deficiency anemia (D50.9) Active confirmed Problem Gastroesophageal reflux disease without esophagitis (321409228) Gastroesophageal reflux disease without esophagitis (K21.9) Active confirmed Problem Hiatal hernia (94173636) Hiatal hernia (K44.9) Active confirmed Problem Chronic gastritis (1764859) Gastritis, chronic (K29.50) Active confirmed Problem Computed tomography result abnormal (097418394) Abnormal CT scan, colon (R93.3) Active confirmed Problem Erosive esophagitis (74344472) Erosive esophagitis (K22.10) Active confirmed Problem Irregular bowel habits (091585127) Irregular bowel habits (R19.8) Active confirmed Problem Incontinence of feces (96777598) Incontinence of feces, unspecified fecal incontinence type (R15.9) Active confirmed Problem Diaphragmatic hernia (53032027) Hernia, hiatal (K44.9) Active confirmed Problem Gastroesophageal reflux disease (disorder) (077546809) Chronic GERD (K21.9) Active confirmed Vital Signs Temperature 97.2 degrees Fahrenheit 03/09/2025 Blood pressure diastolic 01 mm Hg 03/09/2025 Height 62.50 in 03/09/2025 Blood pressure systolic 001 mm Hg 03/09/2025 Weight 210.2 lbs 03/09/2025 BMI 37.83 kg/m2 03/09/2025 Encounters Encounter Location Date Provider Diagnosis [facility] [address] [place] [phone] 03/09/2025 Cash Mercado Nausea R11.0 ; Iron deficiency anemia D50.9 and Early satiety R68.81 [facility] [address] [place] [phone] 03/30/2025 Cash Mercado Assessments Encounter Date Diagnosis [...] Provider Name:Cash Mercado , 06/01/2025 03:00:00 PM, [address] [place] [address], [address], [place], [address], Insurance Providers Payer Name Payer Address Payer Phone Subscriber Number Group Number Insured Name Patient Relationship to Insured Coverage Start Date Coverage End Date [facility] [address] [place] [phone] [id number] ANNETTA DE LUNA Self - patient is the insured Medical (General) History Medical History History ICD Code NIDDM Hyperlipidemia Hypertension Pacemaker-sees Dr. Patel Arthritis Denies MT,CVA,Lung disease,renal disease Urinary incontinence-mild Hypothyroidism Tubular adenomas [...]
--- OUTSIDE RECORDS SUMMARY | 2025-05-10 11:59 | XMS_ITS | Encounter Summary ---
Author Organization [facility] Address [address] [facility] [address] [place] [address] Phone Care Team Providers Care Stone Rubber Name Role Phone Carmita Dietz NP Primary Care Provid er Encounter Details Date Type Department Care Team (Late st Contact Info) Description 12/16/2023 Procedure Pass [facility] [address] [place] [address] Social History Tobacco Use Types Packs/Day Years [...] filedocumented in this encounter Care Teams Stone Rubber Relationship Specialty Start Date End Date Carmita Dietz NP [address] [place] [address] PCP - General Nurse Practitioner 08/12/23 documented as of this encounter Additional Source Comments The information contained in this document represents components of the legal health record. It is not the complete legal health record.[facility]
--- OUTSIDE RECORDS SUMMARY | 2025-05-10 11:59 | XMS_ITS | Encounter Summary ---
Author Organization [facility] Address [address] [facility] [address] [place] [address] Phone Care Team Providers Care Fountain Pen Nibs Inspector Name Role Phone Carmita Dietz [employer]IC[employer] MASSEUR-C Primary Care Provider + Reason for Visit * Reason Comments Med Refill Encounter Details Date Type Department Care Team (Late st Contact Info) Description 02/27/2023 Refill [facility] [address] [place] [phone] Arsen Villeags MD Social History Tobacco Use Types Packs/Day [...] on filedocumented in this encounter Care Teams Fountain Pen Nibs Inspector Relationship Specialty Start Date End Date Carmita Dietz NP-C [address], [address] [place] [address] PCP - General Nurse Practitioner 07/18/22 documented as of this encounter
--- OUTSIDE RECORDS SUMMARY | 2025-05-10 11:59 | XMS_ITS | Clinical Summary ---
Author Organization [facility] Address [address] [place] [address] Phone Care Team Providers Care Rd Scientist Name Role Phone Unavailable Primary Care Provider Unavailabl e Encounters Date Type Department Care Team Description 05/04/2025 1:40 PM EST Hospital Encounter [facility] PET Scan [address] [place] [address] Solitary pulmonary nodule from Last [...] on patient's age to complete this topic Procedures Procedure Name Priority Date/Time Associated Diagnosis Comments PET CT SKULL TO MID THIGH INITIAL Routine 05/04/2025 3:30 PM EST Solitary pulmonary nodule from Last 3 Months Results * PET CT Skull to Mid [...] Signed Date: 05/10/2025 06:52 ET Workstation ID: [id number] Transcribed By: Self Edit Transcribed Date: 05/10/2025 [...] Signed Date: 05/10/2025 06:52 ET Workstation ID: [id number] Transcribed By: Self Edit Transcribed Date: 05/10/2025 06:07 ET [facility]ill [facility] Final Result from Last 3 Months Insurance [employer]
--- OUTSIDE RECORDS SUMMARY | 2025-05-10 11:59 | XMS_ITS | Encounter Summary ---
Author Organization [facility] Address [address] [facility] [address] [place] [address] Phone Care Team Providers Care Net Manager Name Role Phone Carmita Dietz NP Primary Care Provid er Encounter Details Date Type Department Care Team (Late st Contact Info) Description 12/25/2023 Procedure Pass [facility] [address] [place] [address] Social History Tobacco Use Types Packs/Day Years [...] on filedocumented in this encounter Care Teams Net Manager Relationship Specialty Start Date End Date Carmita Dietz NP [address] [place] [address] PCP - General Nurse Practitioner 08/12/23 documented as of this encounter Additional Source Comments The information contained in this document represents components of the legal health record. It is not the complete legal health record.[facility]
== END 2025-05-10 11:12 | disposition home or self-care (01) ==
LOC: HO.HPS 10:32
PROVIDERS: PCP Nurse Practitioner Primary Care; Visit Provider Internal Medicine Pulmonary Disease
DX: R91.8 Other nonspecific abnormal finding of lung field (principal); G47.33 Obstructive sleep apnea (adult) (pediatric)
CPT/HCPCS: 99214

== ENCOUNTER 2025-05-10 10:31 | Outpatient (REF) | payer MEDICARE, SELFPAY ==
--- OUTSIDE RECORDS SUMMARY | 2025-05-07 23:59 | XMS_ITS | Continuity of Care Document ---
Author Organization [facility] ter Address [address] [place] [address]- Care Team Providers Care Patient Financial Counselor Name Role Phone J Luis CEDILLO, Carmita Lua Primary Care Physic [id number] Date[facility]s): 04/07/25 - 05/07/[address] [address]- Attending Physician: Not on Staff, Attending MD Admitting Physician: Not on Staff, Admitting MD Referring Physician: Not on Staff, Referring MD Encounter Type: Pre-Outpt Allergies, Adverse Reactions, Alerts Substance Criticality Severity [...] 11:46:00 AM EST, Route to Pharmacy Electronically, [facility], Partial fill upon patient [...] 5:06:00 PM EST, Route to Pharmacy Electronically, [facility], Partial fill upon patient [...] Fills: 1 Fills Dispensed: 0 nystatin topical 228655 u/gm powder APPLY TOPICALLY TO AFFECTED AREA [...] 3:21:00 PM EST, Route to Pharmacy Electronically, [facility], Partial fill upon patient request if [...] Care team information Care Team Personnel Name: Sal ANTOINE, [place] Position: [facility] RN Member Role: Primary Care Nurse Name: Jamison Murray RN Position: [facility] RN Member Role: Primary Care Nurse Name: Jade Berry RN Position: [facility] RN Member Role: Primary Care Nurse Name: Helen Clemente Position: [facility] Outreach Member Role: Lifetime Consulting Physician Name: Carmita Dietz NP Position: [facility] Outreach Member Role: PCP Address: [facility] [address] [place] [address]- [place] Telecom: Care Team Related Persons Name: CHEYANNE BUCHANAN Name: YOUSIF DE LUNA Insurance Providers Guarantor name: LULI DE LUNA Health Plan Information #: 1 Payer: [employer] ADV PPO Payer Identifier: NA Member Number: [id number] Group Number: [id number] Subscriber Identifier: NA Relationship to Subscriber: self Coverage Type: Medicare PPO Coverage Verification Date: NA Telecom: NA Address:
[2025-05-10 12:32] LABS: Magnesium 2.0 mg/dL (1.6-2.6)
--- OUTSIDE RECORDS SUMMARY | 2025-05-10 13:11 | XMS_ITS | Data Portability ---
Author Organization [place] [facility], [facility] Address [address] [address] Care Team Providers Care Interpreter And Translator Name Role Phone JACOBO ABAD Primary Care [...] mupirocin 2 % topical ointment 2024 [id number], [address] [place], [address], 5 11:51:39 Patient TargetsNo targets recorded. Patient InstructionsNo instructions recorded. Reason for Referral None Reported. Problems Name Problem SNOMED Code Status Onset Date Resolution Date Notes Provider Name and Address Organization Details Recorded Time Migraine 09193624 Active 2017 Other migraine , not intracta ble, without status migraino kervin; Note: Date Diagnose d: 8 10:47 AM (G43.809 ) Not Available [facility] 4 03:07:58 Follow-u p visit Active 2017 Encounte r for follow-u p examinat ion after complete d treatmen t for conditio ns other than malignan t neoplasm ; Note: Date Diagnose d: 04/21/20 18 2:55 PM (Z09) Not Available [facility] 4 03:08:00 Chronic sphenoid al sinusiti s 16324711 Completed 201712/13/2023 Chronic sphenoid al sinusiti s; Note: Date Diagnose d: 04/28/20 18 8:26 PM (J32.3) Chroni c sphenoid al sinusiti s; Note: Date Diagnose d: 8 11:01 AM (J32.3) ; Start Date : 02/11/20 18 Not Available [facility] 4 03:07:58 Headache 49209229 Active 2019 Facial pain NOS; Note: Date Diagnose d: 02/25/20 20 1:22 PM (R51) Facial pain NOS; Note: Date Diagnose d: 8 10:47 AM (R51) ; Start Date : 02/11/20 18 Not Available [facility] 4 03:07:59 Ulcerati ve rhinitis 86428604 Active 2019 Nasal mucositi s (ulcerat adriana); Note: Date Diagnose d: 0 1:36 PM (J34.81) Not Available [facility] 4 03:08:00 Angioede ma 59343431 Active 2023 Angioneu rotic edema, initial encounte r; Note: Date Diagnose d: 4 9:06 AM (T78.3XX A) Not Available [facility] 4 03:08:00 Gastroes ophageal reflux disease 477158032 Active 2024 SANDIE WILLIAM MD [address] [facility] [address],[address] [facility], [facility] [place], [address] , [facility] 5 08:18:24 Obstruct adriana sleep apnea syndrome 74527881 Active 2024 SANDIE WILLIAM MD [address] [facility] [address], [facility] [place], [address] , [facility] 5 08:18:33 Problem Notes None recorded. Procedures Surgical History Date Name Laterality Status Provider Name and Address Organization Details Recorded Time 06/12/19 Fiberoptic Laryngoscopy (Comprehensive) completed SANDIE WILLIAM MD [address] [facility],[place] [address], [place], [address], [facility] [...] layed release 06/12 completed Medicati on ID: [id number] D uration Value: 90 Brand Name: pantopra zole Sen d Method: E-Prescr ibed Sub s Allowed: subs OK Speci al Instruct ion: TAKE 1 TABLET BY ORAL ROUTE DAILY Me dication GenericN radha: pantopra zole Not Available Not Available Not Available pravastat in 20 mg tablet 2017 active Medicati on ID: [id number] D uration Value: 90 Brand Name: pravasta [...] by mouth 06/12 completed Medicati on ID: [id number] D uration Value: 7 Prescri bed By Name: Sandie weiss MD Brand Name: cefuroxi me axetil S end Method: E-Prescr ibed Sub s Allowed: subs OK Medic ationGen ericName : cefuroxi me axetil Not Available Not Available Not Available amoxicill in 875 mg-potass ium clavulana te 125 mg tablet 05/09 completed Medicati on ID: [id number] D uration Value: 10 Reason: () Brand [...] Available Advil 04/21 completed Medicati on ID: [id number] R sergio: () Brand Name: advil Se nd Method: E-Prescr ibed Sub s Allowed: subs OK Medic ationGen ericName : advil Not Available Not Available Not Available Tylenol 06/12 completed Medicati on ID: [id number] B rand Name: tylenol Send Method: E-Prescr ibed Sub s Allowed: subs OK Medic ationGen ericName : tylenol Not Available Not Available Not Available amlodipin e 10 mg-benaze pril 40 mg capsule 06/12 completed Medicati on ID: [id number] D uration Value: 90 Brand Name: amlodipi [...] Updated DateTime 06/12/2024 157.48 cm 36.6 kg/m2 00818.47 g Georgette Lynn [place] - [facility] [...] ICD10 Code Diagnosis IMO Codes Diagnosis Note [id number] SANDIE WILLIAM MD [facility] [address] [phone] 06/12/2024 11:19:33 06/12/2024 11:55:40 Ulcerative rhinitis 29705520 J34.81 Gastroesop hageal reflux disease 840372086 K21.00 Obstructiv e sleep apnea syndrome 25307443 G47.33 Health Concerns Section Related Observation LastModified by Organization Detai ls LastModified Time None Recorded Concern Status LastModified by Organization Details LastModified Time None Recorded Advance Directives Directive None Recorded Payers Insurance Date Sequence Insurance Name Policy Number Policy Lara Covered Member ID Lara Member ID Guarantor Name 06/12/2024 1 [facility] [id number] 01 Annetta E E McElwey [id number] Annetta E McElwey 06/15/2024 1 [facility] (MEDICARE REPLACEMENT /ADVANTAGE - PPO) [id number] 01 Annetta E E McElwey [id number] Annetta E McElwey Notes Date Note Type Note Provider Name and Address Organization Details Recorded Time 06/12/2024 text/html ROS as noted in the HPI 78 yo F presents for evaluation of her throatangioedema last year seen [facility] [place] new FAINA CPAP, right side of nose gets crusting, uses AYR saline and gel esophagitis and gastritis in September, on omeprazole gets scratchy, this week is a little better SANDIE WILLIAM MD [address] [place] [address], [phone], [facility] 06/13/2024 08:20:50 OBGyn Episode No OBEpisode recorded.
== END 2025-05-10 10:32 | disposition home or self-care (01) ==
LOC: HO.LABR 10:31
PROVIDERS: Absent Provider Nurse Practitioner Primary Care; PCP Nurse Practitioner Primary Care; Visit Provider Internal Medicine Pulmonary Disease
DX: E83.49 Other disorders of magnesium metabolism (principal); R91.8 Other nonspecific abnormal finding of lung field; G47.33 Obstructive sleep apnea (adult) (pediatric); Z99.89 Dependence on other enabling machines and devices
CPT/HCPCS: 36415; 83735; 99212